=== PATIENT | male | born 1970 | race African-American/Black ===

== ENCOUNTER → 2016-08-19 | Outpatient (CLI) | payer OTHER ==
[~2016-08-19] MED LIST: CIPR500T89 PO; FAMO1TAB11 PO; FLAG500T PO; HALO1TAB29 PO; HARV1TAB PO; INSUH10VL SC; INSULANT SC; OXAZ10CA PO; QUET1TAB10 PO; QUET1TAB9 PO; TRAZ100T4 PO
[2016-08-19 15:32] LABS: ANION GAP 15 MEQ/L (8-16); BLOOD UREA NITROGEN 10 MG/DL (7-18); CALCIUM LEVEL 9.3 MG/DL (8.5-10.1); CARBON DIOXIDE LEVEL 21 MEQ/L (21-32); CHLORIDE LEVEL 99 MEQ/L (98-107); CREATININE FOR GFR 0.98 MG/DL (0.70-1.30); GLOMERULAR FILTRATION RATE > 60.0 (>60); GLUCOSE, FASTING 238 MG/DL (70-105); POTASSIUM SERUM 3.7 MEQ/L (3.5-5.1); SODIUM LEVEL 135 MEQ/L (136-145)
== END ==
LOC: M LAB 14:27
PROVIDERS: ATTEND Physician Assistant Medical
DX: E11.65 Type 2 diabetes mellitus with hyperglycemia (principal)

== ENCOUNTER 2016-11-12 21:41 | Emergency (ER) | payer OTHER ==
[~2016-11-12] VITALS: Ht 165.1 cm; Wt 81.6 kg
[2016-11-12 21:41] VITALS: BP 112/65
[2016-11-12] MEDS ORDERED: METF500T PO (22:03)
[2016-11-12] MEDS ORDERED: CLON0.2T PO (22:03)
== END 2016-11-13 01:05 | disposition left against medical advice (07) ==
LOC: M ED 23:39
DX: Z53.29 Procedure and treatment not carried out because of patient's decision for other reasons (principal)

== ENCOUNTER 2016-11-14 00:42 | Emergency (ER) | payer OTHER ==
[~2016-11-14] VITALS: Ht 165.1 cm; Wt 72.6 kg
[~2016-11-14 00:42] MED LIST changes: +CLON0.2T PO; +METF500T PO
[2016-11-14 02:20] VITALS: BP 118/76
== END 2016-11-14 02:20 | disposition home or self-care (01) ==
LOC: M ED 01:59
DX: K08.9 Disorder of teeth and supporting structures, unspecified (principal); I10 Essential (primary) hypertension; E11.9 Type 2 diabetes mellitus without complications; F20.9 Schizophrenia, unspecified; F17.200 Nicotine dependence, unspecified, uncomplicated; Z79.4 Long term (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 of insulin; Z79.899 Other long term (current) drug therapy; Z88.8 Allergy status to other drugs, medicaments and biological substances

== ENCOUNTER 2017-01-23 21:45 | Emergency (ER) | payer OTHER ==
[~2017-01-23 21:45] MED LIST changes: +CIPR-249 PO; -CIPR500T89 PO; -METF500T PO; +METF500T13 PO; -OXAZ10CA PO; +OXAZ10CA3 PO; +TRAZ-136 PO; -TRAZ100T4 PO
[2017-01-23] MEDS ORDERED: TOUJ1.2I SQ (22:04)
[2017-01-23] MEDS ORDERED: JARD1TAB PO (22:04)
[2017-01-23 22:53] LABS: MEAN CORPUSCULAR HEMOGLOBIN 31.9 pg (27.0-33.0); MEAN CORPUSCULAR HGB CONC 34.1 g/dl (32.0-36.5); MEAN CORPUSCULAR VOLUME 93.5 fl (80.0-96.0); RED CELL DISTRIBUTION WIDTH 12.6 % (11.5-14.5); WHITE BLOOD COUNT 4.1 K/mm3 (4.0-10.0)
[2017-01-23 23:26] LABS: METHADONE URINE NEGATIVE (NEGATIVE)
[2017-01-23] MEDS ORDERED: PHENobarbital 30 MG TAB PO ONE (23:30)
[2017-01-23 23:38] LABS: ALBUMIN 4.3 GM/DL (3.2-5.2); ALKALINE PHOSPHATASE 76 U/L (45-117); ALT/SGPT 76 U/L (12-78); ANION GAP 10 MEQ/L (8-16); AST/SGOT 108 U/L (15-37); BILIRUBIN,DIRECT 0.2 MG/DL (0.0-0.2); BILIRUBIN,TOTAL 0.3 MG/DL (0.2-1.0); BLOOD UREA NITROGEN 8 MG/DL (7-18); CALCIUM LEVEL 8.8 MG/DL (8.5-10.1); CARBON DIOXIDE LEVEL 27 MEQ/L (21-32); CHLORIDE LEVEL 104 MEQ/L (98-107); CREATININE FOR GFR 0.89 MG/DL (0.70-1.30); GLOMERULAR FILTRATION RATE > 60.0 (>60); GLUCOSE, FASTING 205 MG/DL (70-105); POTASSIUM SERUM 3.8 MEQ/L (3.5-5.1); SODIUM LEVEL 141 MEQ/L (136-145); TOTAL PROTEIN 8.6 GM/DL (6.4-8.2)
[2017-01-24] MEDS ORDERED: OXAZEPAM 15 MG CAP PO ONE (07:30)
[2017-01-24 09:16] VITALS: BP 134/88
== END 2017-01-24 09:18 | disposition home or self-care (01) ==
LOC: M ED 22:36
DX: F10.120 Alcohol abuse with intoxication, uncomplicated (principal); I10 Essential (primary) hypertension; E11.9 Type 2 diabetes mellitus without complications; F17.200 Nicotine dependence, unspecified, uncomplicated; Z79.899 Other long term (current) drug therapy; Z79.4 Long term (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 of insulin; Z88.8 Allergy status to other drugs, medicaments and biological substances

== ENCOUNTER → 2017-04-08 | Outpatient (REF) | payer OTHER ==
[~2017-04-08] MED LIST changes: +INSUHUMDS; +INSULANT; +JARD1TAB PO; +TOUJ1.2I SQ
[2017-04-08 19:57] LABS: BASO % 0.8 % (0.0-1.0); EOS # 0.1 10^3/uL (0.0-0.50); EOS % 2.4 % (0.0-3.0); IMMATURE GRANULOCYTE % 0.2 % (0-0); LYMPH # 1.4 10^3/uL (1.5-4.5); LYMPH % 28.5 % (24.0-44.0); MEAN CORPUSCULAR HEMOGLOBIN 31.1 pg (27.0-33.0); MEAN CORPUSCULAR HGB CONC 33.3 g/dl (32.0-36.5); MEAN CORPUSCULAR VOLUME 93.3 fl (80.0-96.0); MONO # 0.7 10^3/uL (0.0-0.8); MONO % 13.6 % (0.0-5.0); NEUTROPHILS # 2.7 10^3/uL (1.8-7.7); NEUTROPHILS % 54.5 % (36.0-66.0); PLATELET COUNT, AUTOMATED 212 10^3/uL (150-450); RED CELL DISTRIBUTION WIDTH 12.8 % (11.5-14.5)
[2017-04-08 20:04] LABS: ALBUMIN 4.1 GM/DL (3.2-5.2); ALBUMIN/GLOBULIN RATIO 1.03 (1.00-1.93); ALKALINE PHOSPHATASE 59 U/L (45-117); ALT/SGPT 52 U/L (12-78); ANION GAP 8 MEQ/L (8-16); AST/SGOT 71 U/L (15-37); BILIRUBIN,TOTAL 0.3 MG/DL (0.2-1.0); BLOOD UREA NITROGEN 10 MG/DL (7-18); CALCIUM LEVEL 9.6 MG/DL (8.5-10.1); CARBON DIOXIDE LEVEL 28 MEQ/L (21-32); CHLORIDE LEVEL 103 MEQ/L (98-107); CREATININE FOR GFR 0.94 MG/DL (0.70-1.30); GLOMERULAR FILTRATION RATE > 60.0 (>60); GLUCOSE, FASTING 179 MG/DL (70-105); SODIUM LEVEL 139 MEQ/L (136-145); TOTAL PROTEIN 8.1 GM/DL (6.4-8.2)
[2017-04-13 14:13] LABS: HEPATITIS C QUANTITATION HCV Not Detected IU/mL (.)
== END ==
LOC: M LAB REF 16:36
PROVIDERS: ATTEND Family Medicine Addiction Medicine
DX: B19.20 Unspecified viral hepatitis C without hepatic coma (principal); E55.9 Vitamin D deficiency, unspecified; D61.818 Other pancytopenia

== ENCOUNTER → 2017-09-10 | Outpatient (REF) | payer OTHER ==
[2017-09-10 19:21] LABS: TOTAL 25(OH) VITAMIN D 32.2 NG/ML (30.0-100.0)
== END ==
LOC: M LAB REF 17:22
DX: E55.9 Vitamin D deficiency, unspecified (principal)

== ENCOUNTER → 2017-12-25 | Outpatient (CLI) | payer OTHER | LOC: M PAIN 14:45 | DX: Z53.29 Procedure and treatment not carried out because of patient's decision for other reasons (principal) ==

== ENCOUNTER 2017-12-29 13:45 | Outpatient (RCR) | payer OTHER | END 2018-01-26 | LOC: M PT 13:45 | DX: Z51.89 Encounter for other specified aftercare (principal); M25.551 Pain in right hip ==

== ENCOUNTER → 2018-01-25 | Outpatient (CLI) | payer OTHER | LOC: M PAIN 15:00 | DX: M25.551 Pain in right hip (principal); M25.552 Pain in left hip; G89.29 Other chronic pain; E11.9 Type 2 diabetes mellitus without complications; F31.9 Bipolar disorder, unspecified; G40.919 Epilepsy, unspecified, intractable, without status epilepticus; F17.210 Nicotine dependence, cigarettes, uncomplicated; F17.220 Nicotine dependence, chewing tobacco, uncomplicated; Z79.4 Long term (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 of insulin; Z86.19 Personal history of other infectious and parasitic diseases | CPT/HCPCS: G0463 ==

== ENCOUNTER → 2018-02-12 | Outpatient (CLI) | payer OTHER | LOC: M RAD 15:47 | DX: M51.36 Other intervertebral disc degeneration, lumbar region (principal) | CPT/HCPCS: 72100 ==

== ENCOUNTER → 2018-02-12 | Outpatient (CLI) | payer OTHER | LOC: M PAIN 14:45 | DX: M25.551 Pain in right hip (principal); M54.5 Low back pain; G89.29 Other chronic pain; M79.604 Pain in right leg; E11.9 Type 2 diabetes mellitus without complications; F17.210 Nicotine dependence, cigarettes, uncomplicated; Z79.4 Long term (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 of insulin; Z79.899 Other long term (current) drug therapy | CPT/HCPCS: G0463 ==

== ENCOUNTER → 2018-04-16 | Outpatient (CLI) | payer OTHER | LOC: M PAIN 11:15 | DX: M25.551 Pain in right hip (principal); M54.5 Low back pain; M79.604 Pain in right leg; G89.29 Other chronic pain; E11.9 Type 2 diabetes mellitus without complications; F31.9 Bipolar disorder, unspecified; F25.9 Schizoaffective disorder, unspecified; F17.210 Nicotine dependence, cigarettes, uncomplicated; Z79.4 Long term (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 of insulin; Z79.899 Other long term (current) drug therapy; Z86.19 Personal history of other infectious and parasitic diseases | CPT/HCPCS: G0463 ==

== ENCOUNTER → 2018-05-31 | Outpatient (REF) | payer OTHER ==
[2018-05-31 18:51] LABS: ALBUMIN 3.9 GM/DL (3.2-5.2); ALBUMIN/GLOBULIN RATIO 1.08 (1.00-1.93); ALKALINE PHOSPHATASE 50 U/L (45-117); ALT/SGPT 31 U/L (12-78); ANION GAP 6 MEQ/L (8-16); AST/SGOT 35 U/L (7-37); BILIRUBIN,TOTAL 0.4 MG/DL (0.2-1.0); BLOOD UREA NITROGEN 8 MG/DL (7-18); CALCIUM LEVEL 8.7 MG/DL (8.5-10.1); CARBON DIOXIDE LEVEL 26 MEQ/L (21-32); CHLORIDE LEVEL 107 MEQ/L (98-107); CHOLESTEROL LEVEL 130 MG/DL (<200); CHOLESTEROL RISK RATIO 1.666 (<5); CREATININE FOR GFR 0.88 MG/DL (0.70-1.30); GLOMERULAR FILTRATION RATE > 60.0 (>60); GLUCOSE, FASTING 120 MG/DL (70-100); HDL CHOLESTEROL 78 MG/DL (>40); LDL CHOLESTEROL 43 MG/DL (<100); NON-HDL-C 52 MG/DL; SODIUM LEVEL 139 MEQ/L (136-145); TOTAL PROTEIN 7.5 GM/DL (6.4-8.2); TRIGLYCERIDES LEVEL 47 MG/DL (<150)
[2018-05-31 18:54] LABS: TOTAL 25(OH) VITAMIN D 13.8 NG/ML (30.0-100.0)
[2018-05-31 19:13] LABS: ESTIMATED AVERAGE GLUCOSE 186 MG/DL (60-110); HEMOGLOBIN A1c 8.1 %
== END ==
LOC: M LAB REF 16:43
DX: Z13.9 Encounter for screening, unspecified (principal)
CPT/HCPCS: 84443

== ENCOUNTER 2018-11-08 12:50 | Emergency (ER) | payer OTHER ==
[~2018-11-08] VITALS: Ht 170.2 cm; Wt 77.3 kg
[~2018-11-08 12:50] MED LIST changes: +HALO10TA20 PO; -HALO1TAB29 PO; -TRAZ-136 PO; +TRAZ-163 PO
[2018-11-08] MEDS ORDERED: ADME100I (13:08)
[2018-11-08] MEDS ORDERED: TOUJ1.2I SC (13:08)
[2018-11-08] MEDS ORDERED: QUET400T (13:08)
[2018-11-08] MEDS ORDERED: ACET1TAB16 (13:08)
[2018-11-08] MEDS ORDERED: LORazepam 2 MG/ML VIAL (J2060) IM ONE (14:30)
[2018-11-08] MEDS ORDERED: HALOPERIDOL 5 MG/ML VIAL (J1630) IM ONE (14:30)
[2018-11-08 15:12] LABS: HEMATOCRIT 45.4 % (42.0-52.0); HEMOGLOBIN 15.6 g/dl (13.5-17.5); MEAN CORPUSCULAR HEMOGLOBIN 31.3 pg (27.0-33.0); MEAN CORPUSCULAR HGB CONC 34.4 g/dl (32.0-36.5); PLATELET COUNT, AUTOMATED 211 10^3/uL (150-450); RED BLOOD COUNT 4.99 10^6/uL (4.30-6.10)
[2018-11-08 15:34] LABS: AMPHETAMINES LEVEL URINE POSITIVE (NEGATIVE); BARBITURATES URINE NEGATIVE (NEGATIVE); BENZODIAZEPINES URINE NEGATIVE (NEGATIVE); CANNABINOIDS URINE NEGATIVE (NEGATIVE); COCAINE METABOLITE URINE NEGATIVE (NEGATIVE); METHADONE URINE NEGATIVE (NEGATIVE); OPIATES URINE NEGATIVE (NEGATIVE); PHENCYCLIDINE URINE NEGATIVE (NEGATIVE)
[2018-11-08 15:45] LABS: ACETAMINOPHEN LEVEL < 2.0 UG/ML (10.0-30.0); ALBUMIN 4.5 GM/DL (3.2-5.2); ALT/SGPT 28 U/L (12-78); BILIRUBIN,DIRECT 0.1 MG/DL (0.0-0.2); BILIRUBIN,TOTAL 0.4 MG/DL (0.2-1.0); BLOOD UREA NITROGEN 12 MG/DL (7-18); CALCIUM LEVEL 8.9 MG/DL (8.5-10.1); CARBON DIOXIDE LEVEL 23 MEQ/L (21-32); CHLORIDE LEVEL 105 MEQ/L (98-107); CREATININE FOR GFR 0.94 MG/DL (0.70-1.30); ETHYL ALCOHOL (ETHANOL) 0.164 % (0.000-0.010); GLOMERULAR FILTRATION RATE > 60.0 (>56); GLUCOSE, FASTING 166 MG/DL (70-100); POTASSIUM SERUM 4.1 MEQ/L (3.5-5.1); SODIUM LEVEL 139 MEQ/L (136-145); THYROID STIMULATING HORMONE 0.235 uIU/ML (0.358-3.740); TOTAL PROTEIN 8.4 GM/DL (6.4-8.2)
[2018-11-08 19:22] VITALS: BP 129/69
[2018-11-08] MEDS ORDERED: METAL LOCK LOOP XX ONE (19:45)
== END 2018-11-08 20:09 | disposition home or self-care (01) ==
LOC: M ED 12:50
DX: F20.0 Paranoid schizophrenia (principal); F31.9 Bipolar disorder, unspecified; E11.9 Type 2 diabetes mellitus without complications; B19.20 Unspecified viral hepatitis C without hepatic coma; Z87.19 Personal history of other diseases of the digestive system; F17.200 Nicotine dependence, unspecified, uncomplicated; Z88.8 Allergy status to other drugs, medicaments and biological substances; Z79.899 Other long term (current) drug therapy; Z79.4 Long term (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 of insulin
CPT/HCPCS: 36415; 80048; 80076; 80307; 84443; 85027; 99284; G0480

== ENCOUNTER 2019-03-19 23:08 | Emergency (ER) | payer OTHER ==
[~2019-03-19 23:08] MED LIST changes: +ACET1TAB16; +ADME100I; -QUET1TAB9 PO; +QUET200T2 PO; +QUET400T; +TOUJ1.2I SC
[2019-03-20 00:19] LABS: HEMATOCRIT 43.2 % (42.0-52.0); HEMOGLOBIN 14.8 g/dl (13.5-17.5); MEAN CORPUSCULAR HEMOGLOBIN 31.2 pg (27.0-33.0); MEAN CORPUSCULAR HGB CONC 34.3 g/dl (32.0-36.5); MEAN CORPUSCULAR VOLUME 91.1 fl (80.0-96.0); PLATELET COUNT, AUTOMATED 210 10^3/uL (150-450); RED BLOOD COUNT 4.74 10^6/uL (4.30-6.10); WHITE BLOOD COUNT 7.3 10^3/uL (4.0-10.0)
[2019-03-20 00:36] LABS: ACETAMINOPHEN LEVEL < 2.0 UG/ML (10.0-30.0); ALBUMIN 4.1 GM/DL (3.2-5.2); ALT/SGPT 20 U/L (12-78); BILIRUBIN,DIRECT 0.2 MG/DL (0.0-0.2); BILIRUBIN,TOTAL 0.4 MG/DL (0.2-1.0); BLOOD UREA NITROGEN 14 MG/DL (7-18); CALCIUM LEVEL 9.4 MG/DL (8.5-10.1); CARBON DIOXIDE LEVEL 23 MEQ/L (21-32); CHLORIDE LEVEL 102 MEQ/L (98-107); CREATININE FOR GFR 0.84 MG/DL (0.70-1.30); ETHYL ALCOHOL (ETHANOL) 0.018 % (0.000-0.010); GLOMERULAR FILTRATION RATE > 60.0 (>56); GLUCOSE, FASTING 131 MG/DL (70-100); POTASSIUM SERUM 3.6 MEQ/L (3.5-5.1); SALICYLATE LEVEL 3.4 MG/DL (5.0-30.0); SODIUM LEVEL 137 MEQ/L (136-145); THYROID STIMULATING HORMONE 0.728 uIU/ML (0.358-3.740); TOTAL PROTEIN 8.3 GM/DL (6.4-8.2)
[2019-03-20 02:12] LABS: AMPHETAMINES LEVEL URINE POSITIVE (NEGATIVE); BARBITURATES URINE NEGATIVE (NEGATIVE); BENZODIAZEPINES URINE NEGATIVE (NEGATIVE); CANNABINOIDS URINE NEGATIVE (NEGATIVE); COCAINE METABOLITE URINE POSITIVE (NEGATIVE); METHADONE URINE NEGATIVE (NEGATIVE); OPIATES URINE NEGATIVE (NEGATIVE); PHENCYCLIDINE URINE NEGATIVE (NEGATIVE)
[2019-03-20 04:29] VITALS: BP 124/69
--- NOTE | 2019-03-20 13:31 | ECGEPIP ---
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
== END 2019-03-20 04:33 | disposition home or self-care (01) ==
LOC: M ED 23:08
DX: F20.9 Schizophrenia, unspecified (principal); E11.9 Type 2 diabetes mellitus without complications; F17.200 Nicotine dependence, unspecified, uncomplicated; F14.10 Cocaine abuse, uncomplicated; B18.2 Chronic viral hepatitis C
CPT/HCPCS: 80048; 80076; 80307; 84443; 85027; 93005; 99284; G0480

== ENCOUNTER 2019-03-29 05:23 | Emergency (ER) | payer OTHER ==
[~2019-03-29] VITALS: Ht 170.2 cm; Wt 77.3 kg
[2019-03-29 05:24] VITALS: BP 139/91
[2019-03-29] MEDS ORDERED: STEG5TAB PO (05:32)
[2019-03-29] MEDS ORDERED: GABA-843 PO (05:32)
[2019-03-29] MEDS ORDERED: MELO15TA28 PO (05:32)
[2019-03-29] MEDS ORDERED: AUGM500T34 PO (06:00)
[2019-03-29] MEDS ORDERED: KETO10TAB PO (06:00)
== END 2019-03-29 06:37 | disposition home or self-care (01) ==
LOC: M ED 05:23
DX: K02.9 Dental caries, unspecified (principal); E11.9 Type 2 diabetes mellitus without complications; F20.9 Schizophrenia, unspecified; F10.20 Alcohol dependence, uncomplicated; F17.200 Nicotine dependence, unspecified, uncomplicated; Z88.8 Allergy status to other drugs, medicaments and biological substances; Z79.899 Other long term (current) drug therapy; Z79.4 Long term (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 of insulin

== ENCOUNTER 2019-03-30 19:27 | Emergency (ER) | payer OTHER ==
[~2019-03-30] VITALS: Ht 177.8 cm; Wt 79.5 kg
[~2019-03-30 19:27] MED LIST changes: +AUGM500T34 PO; +GABA-843 PO; +KETO10TAB PO; +MELO15TA28 PO; +STEG5TAB PO
[2019-03-30 19:42] VITALS: BP 128/84
== END 2019-03-30 20:33 | disposition home or self-care (01) ==
LOC: M ED 19:27
DX: F20.0 Paranoid schizophrenia (principal); F17.210 Nicotine dependence, cigarettes, uncomplicated; Z88.8 Allergy status to other drugs, medicaments and biological substances; Z79.899 Other long term (current) drug therapy; Z79.2 Long term (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 of antibiotics; Z79.4 Long term (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 of insulin

== ENCOUNTER 2019-03-30 23:02 | Emergency (ER) | payer OTHER ==
[~2019-03-30 23:02] MED LIST changes: -QUET400T; +QUET400T PO; -TRAZ-163 PO; +TRAZ-257 PO
== END 2019-03-30 23:22 | disposition left against medical advice (07) ==
LOC: M ED 23:02
DX: Z53.21 Procedure and treatment not carried out due to patient leaving prior to being seen by health care provider (principal)

== ENCOUNTER 2019-03-31 00:30 | Emergency (ER) | payer OTHER ==
[~2019-03-31] VITALS: Ht 170.2 cm; Wt 75.6 kg
[~2019-03-31 00:30] MED LIST changes: +TRAZ-163 PO; -TRAZ-257 PO
[2019-03-31] MEDS ORDERED: ACETAMINOPHEN TAB 650MG DOSE (2X325MG) PO ONE (01:15)
--- NOTE | 2019-03-31 02:04 | REPVR ---
PROCEDURE INFORMATION: Exam: XR Right Hip with Pelvis when Performed Exam date and time: 03/31/2019 1:22 AM Clinical history: 48 years old, male; Hip pain; Right hip; Additional info: Right hip pain TECHNIQUE: Imaging protocol: XR Right hip with pelvis when performed. Views: 2 or 3 views. COMPARISON: CR Hip, Ap,Lat 03/06/2016 5:11 PM FINDINGS: Bones are aligned normally. No acute fracture. No concerning bone lesion. No evidence of femoral head osteonecrosis. Symmetric bilateral degenerative hip joint space narrowing with subchondral sclerosis and underlying osseous metaplasia suggesting chronic impingement. Imaged portion of the SI joint is unremarkable. No focal soft tissue abnormality. IMPRESSION: No acute process. 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
[2019-03-31] MEDS ORDERED: METAL LOCK LOOP XX ONE (03:14)
[2019-03-31] MEDS ORDERED: LORazepam 2 MG/ML VIAL (J2060) As Ordered ONE (05:58)
[2019-03-31] MEDS ORDERED: HALOPERIDOL 5 MG/ML VIAL (J1630) As Ordered ONE (05:58)
[2019-03-31 06:23] LABS: HEMATOCRIT 44.5 % (42.0-52.0); HEMOGLOBIN 15.2 g/dl (13.5-17.5); MEAN CORPUSCULAR HEMOGLOBIN 31.3 pg (27.0-33.0); MEAN CORPUSCULAR HGB CONC 34.2 g/dl (32.0-36.5); MEAN CORPUSCULAR VOLUME 91.6 fl (80.0-96.0); PLATELET COUNT, AUTOMATED 214 10^3/uL (150-450); RED BLOOD COUNT 4.86 10^6/uL (4.30-6.10); WHITE BLOOD COUNT 6.7 10^3/uL (4.0-10.0)
[2019-03-31 06:50] LABS: AMPHETAMINES LEVEL URINE NEGATIVE (NEGATIVE); BARBITURATES URINE NEGATIVE (NEGATIVE); BENZODIAZEPINES URINE NEGATIVE (NEGATIVE); CANNABINOIDS URINE NEGATIVE (NEGATIVE); COCAINE METABOLITE URINE POSITIVE (NEGATIVE); METHADONE URINE NEGATIVE (NEGATIVE); OPIATES URINE NEGATIVE (NEGATIVE); PHENCYCLIDINE URINE NEGATIVE (NEGATIVE)
[2019-03-31 06:54] LABS: ACETAMINOPHEN LEVEL < 2.0 UG/ML (10.0-30.0); ALBUMIN 3.8 GM/DL (3.2-5.2); ALT/SGPT 28 U/L (12-78); BILIRUBIN,DIRECT 0.2 MG/DL (0.0-0.2); BILIRUBIN,TOTAL 0.5 MG/DL (0.2-1.0); BLOOD UREA NITROGEN 12 MG/DL (7-18); CALCIUM LEVEL 9.1 MG/DL (8.5-10.1); CARBON DIOXIDE LEVEL 24 MEQ/L (21-32); CHLORIDE LEVEL 105 MEQ/L (98-107); CREATININE FOR GFR 1.07 MG/DL (0.70-1.30); ETHYL ALCOHOL (ETHANOL) 0.088 % (0.000-0.010); GLOMERULAR FILTRATION RATE > 60.0 (>56); GLUCOSE, FASTING 245 MG/DL (70-100); POTASSIUM SERUM 3.9 MEQ/L (3.5-5.1); SALICYLATE LEVEL 3.4 MG/DL (5.0-30.0); SODIUM LEVEL 139 MEQ/L (136-145)
[2019-03-31] MEDS ORDERED: HALOPERIDOL 10 MG TAB PO ONE (07:45)
[2019-03-31] MEDS ORDERED: GABAPENTIN 300 MG CAP PO ONE (07:45)
[2019-03-31] MEDS ORDERED: LEVEMIR (INSULIN DETEMIR) 1 UNITS/0.01ML SC ONE (08:45)
[2019-03-31] MEDS ORDERED: MELOXICAM (MOBIC) 7.5 MG TAB PO SCH (09:00)
[2019-03-31 11:55] VITALS: BP 119/63
== END 2019-03-31 12:05 | disposition home or self-care (01) ==
LOC: M ED 00:30
DX: F10.120 Alcohol abuse with intoxication, uncomplicated (principal); F14.129 Cocaine abuse with intoxication, unspecified; M16.11 Unilateral primary osteoarthritis, right hip; E11.9 Type 2 diabetes mellitus without complications; F20.9 Schizophrenia, unspecified; F32.9 Major depressive disorder, single episode, unspecified; B19.20 Unspecified viral hepatitis C without hepatic coma; G47.00 Insomnia, unspecified; Z88.8 Allergy status to other drugs, medicaments and biological substances; Z79.899 Other long term (current) drug therapy; Z79.2 Long term (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 of antibiotics; Z79.891 Long term (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 of opiate analgesic; Z79.4 Long term (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 of insulin
CPT/HCPCS: 36415; 73502; 80048; 80076; 80307; 84443; 85027; 99284; G0480

== ENCOUNTER 2019-04-03 00:24 | Emergency (ER) | payer OTHER ==
[~2019-04-03] VITALS: Ht 170.2 cm; Wt 81.8 kg
[2019-04-03 01:23] LABS: HEMATOCRIT 42.7 % (42.0-52.0); HEMOGLOBIN 14.5 g/dl (13.5-17.5); MEAN CORPUSCULAR HEMOGLOBIN 31.5 pg (27.0-33.0); MEAN CORPUSCULAR VOLUME 92.6 fl (80.0-96.0); PLATELET COUNT, AUTOMATED 227 10^3/uL (150-450); RED BLOOD COUNT 4.61 10^6/uL (4.30-6.10); WHITE BLOOD COUNT 6.7 10^3/uL (4.0-10.0)
[2019-04-03 02:06] LABS: ACETAMINOPHEN LEVEL < 2.0 UG/ML (10.0-30.0); ALBUMIN 4.1 GM/DL (3.2-5.2); ALT/SGPT 28 U/L (12-78); BILIRUBIN,DIRECT 0.1 MG/DL (0.0-0.2); BILIRUBIN,TOTAL 0.3 MG/DL (0.2-1.0); BLOOD UREA NITROGEN 12 MG/DL (7-18); CALCIUM LEVEL 8.6 MG/DL (8.5-10.1); CARBON DIOXIDE LEVEL 27 MEQ/L (21-32); CHLORIDE LEVEL 102 MEQ/L (98-107); CREATININE FOR GFR 1.06 MG/DL (0.70-1.30); ETHYL ALCOHOL (ETHANOL) 0.042 % (0.000-0.010); GLOMERULAR FILTRATION RATE > 60.0 (>56); GLUCOSE, FASTING 289 MG/DL (70-100); POTASSIUM SERUM 4.1 MEQ/L (3.5-5.1); SALICYLATE LEVEL 3.7 MG/DL (5.0-30.0); SODIUM LEVEL 138 MEQ/L (136-145); THYROID STIMULATING HORMONE 0.259 uIU/ML (0.358-3.740); TOTAL PROTEIN 7.9 GM/DL (6.4-8.2)
[2019-04-03 03:54] LABS: AMPHETAMINES LEVEL URINE NEGATIVE (NEGATIVE); BARBITURATES URINE NEGATIVE (NEGATIVE); BENZODIAZEPINES URINE NEGATIVE (NEGATIVE); CANNABINOIDS URINE NEGATIVE (NEGATIVE); COCAINE METABOLITE URINE POSITIVE (NEGATIVE); METHADONE URINE NEGATIVE (NEGATIVE); OPIATES URINE NEGATIVE (NEGATIVE); PHENCYCLIDINE URINE NEGATIVE (NEGATIVE)
--- NOTE | 2019-04-03 08:19 | ECGEPIP ---
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
[2019-04-03] MEDS ORDERED: GABAPENTIN 300 MG CAP PO SCH (10:30)
[2019-04-03] MEDS ORDERED: GLUCAGON FOR INJ 1 MG VIAL (J1610) SC PRN (11:00)
[2019-04-03] MEDS ORDERED: GLUCOSE 4 GM CHEW TABLET PO PRN (11:00)
[2019-04-03] MEDS ORDERED: DEXTROSE 50% 50 ML SYRINGE IV PRN (11:00)
[2019-04-03] MEDS ORDERED: HumaLOG INSULIN (NovoLOG) PER UNIT SC SCH ×2 (12:00→21:00)
[2019-04-03 13:31] VITALS: BP 112/63
[2019-04-03] MEDS ORDERED: HALOPERIDOL 10 MG TAB PO SCH (21:00)
== END 2019-04-03 13:40 ==
LOC: M ED 00:24
DX: R45.851 Suicidal ideations (principal); E11.9 Type 2 diabetes mellitus without complications; R73.9 Hyperglycemia, unspecified; Z88.8 Allergy status to other drugs, medicaments and biological substances
CPT/HCPCS: 80048; 80076; 80307; 84443; 85027; 93005; 96372; 99285; G0480

== ENCOUNTER 2019-04-15 05:04 | Emergency (ER) | payer OTHER ==
[~2019-04-15] VITALS: Ht 152.4 cm; Wt 81.8 kg
[2019-04-15] MEDS ORDERED: TRAZ300T16 PO (05:21)
[2019-04-15 05:55] LABS: HEMATOCRIT 40.9 % (42.0-52.0); HEMOGLOBIN 14.3 g/dl (13.5-17.5); MEAN CORPUSCULAR HEMOGLOBIN 31.8 pg (27.0-33.0); MEAN CORPUSCULAR VOLUME 90.9 fl (80.0-96.0); PLATELET COUNT, AUTOMATED 202 10^3/uL (150-450); WHITE BLOOD COUNT 5.9 10^3/uL (4.0-10.0)
[2019-04-15 06:17] LABS: AMPHETAMINES LEVEL URINE NEGATIVE (NEGATIVE); BARBITURATES URINE NEGATIVE (NEGATIVE); BENZODIAZEPINES URINE NEGATIVE (NEGATIVE); CANNABINOIDS URINE NEGATIVE (NEGATIVE); COCAINE METABOLITE URINE POSITIVE (NEGATIVE); METHADONE URINE NEGATIVE (NEGATIVE); OPIATES URINE NEGATIVE (NEGATIVE); PHENCYCLIDINE URINE NEGATIVE (NEGATIVE)
[2019-04-15 06:20] LABS: ACETAMINOPHEN LEVEL < 2.0 UG/ML (10.0-30.0); ALBUMIN 3.9 GM/DL (3.2-5.2); ALT/SGPT 28 U/L (12-78); BILIRUBIN,DIRECT 0.2 MG/DL (0.0-0.2); BILIRUBIN,TOTAL 0.6 MG/DL (0.2-1.0); BLOOD UREA NITROGEN 14 MG/DL (7-18); CALCIUM LEVEL 8.8 MG/DL (8.5-10.1); CARBON DIOXIDE LEVEL 25 MEQ/L (21-32); CHLORIDE LEVEL 102 MEQ/L (98-107); CREATININE FOR GFR 0.87 MG/DL (0.70-1.30); ETHYL ALCOHOL (ETHANOL) < 0.003 % (0.000-0.010); GLOMERULAR FILTRATION RATE > 60.0 (>56); GLUCOSE, FASTING 176 MG/DL (70-100); POTASSIUM SERUM 3.6 MEQ/L (3.5-5.1); SALICYLATE LEVEL 2.5 MG/DL (5.0-30.0); SODIUM LEVEL 134 MEQ/L (136-145); THYROID STIMULATING HORMONE 0.526 uIU/ML (0.358-3.740); TOTAL PROTEIN 7.4 GM/DL (6.4-8.2)
[2019-04-15] MEDS ORDERED: HALO10TA2 PO (08:35)
[2019-04-15] MEDS ORDERED: MELO15TA28 PO (08:35)
[2019-04-15] MEDS ORDERED: HALOPERIDOL 10 MG TAB PO ONE (09:00)
[2019-04-15] MEDS ORDERED: MELOXICAM (MOBIC) 7.5 MG TAB PO SCH (09:00)
--- NOTE | 2019-04-15 09:54 | ED PDOC ---
Provider Note Phone consultation undertaken, the patient is presented to this provider, the patient situation is that he presented himself to the police after taking cocaine and worrying whether it was laced. He had denied any suicidal or homicidal ideation throughout the majority of his stay with no notations of any safety concerns and his presentation on this episode. The patient was observed to be intoxicated with cocaine that subsequently resolved. The patient requested to leave and did not meet involuntary criteria as the information relayed to me did not justify holding the patient against his will as he was not demonstrating that he was incapacitated by mental illness or that he was imminently suicidal. AUGUSTUS SANCHES DO Apr 15, 2019 09:54
[2019-04-15 10:46] VITALS: BP 100/56
[2019-04-16] MEDS ORDERED: HALO10TA20 PO (21:58)
== END 2019-04-15 10:45 | disposition home or self-care (01) ==
LOC: M ED 05:04
DX: F14.10 Cocaine abuse, uncomplicated (principal); E11.9 Type 2 diabetes mellitus without complications; B19.20 Unspecified viral hepatitis C without hepatic coma; K21.9 Gastro-esophageal reflux disease without esophagitis; F20.0 Paranoid schizophrenia; F31.9 Bipolar disorder, unspecified; Z79.899 Other long term (current) drug therapy; Z79.4 Long term (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 of insulin; Z88.8 Allergy status to other drugs, medicaments and biological substances; F17.210 Nicotine dependence, cigarettes, uncomplicated
CPT/HCPCS: 36415; 80048; 80076; 80307; 84443; 85027; 99284; G0480

== ENCOUNTER 2019-04-16 21:30 | Emergency (ER) | payer OTHER ==
[~2019-04-16 21:30] MED LIST changes: +HALO10TA2 PO; +TRAZ300T16 PO
[2019-04-16 21:44] VITALS: BP 138/70
[2019-04-16] MEDS ORDERED: HALO10TA20 PO (21:58)
[2019-04-16] MEDS ORDERED: HALOPERIDOL 10 MG TAB PO ONE (22:00)
== END 2019-04-16 22:37 | disposition home or self-care (01) ==
LOC: M ED 21:30
DX: F31.9 Bipolar disorder, unspecified (principal); R44.3 Hallucinations, unspecified; E11.9 Type 2 diabetes mellitus without complications; Z86.19 Personal history of other infectious and parasitic diseases; Z79.4 Long term (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 of insulin; Z79.899 Other long term (current) drug therapy; Z88.8 Allergy status to other drugs, medicaments and biological substances

== ENCOUNTER → 2019-07-08 | Outpatient (REF) | payer OTHER ==
[2019-07-08 12:45] LABS: BASO % 0.4 % (0.0-1.0); EOS # 0.2 10^3/uL (0.0-0.5); EOS % 2.3 % (0.0-3.0); HEMATOCRIT 45.5 % (42.0-52.0); LYMPH # 2.2 10^3/uL (1.5-5.0); LYMPH % 28.3 % (24.0-44.0); MONO % 12.5 % (0.0-5.0); NEUTROPHILS # 4.4 10^3/uL (1.5-8.5); NEUTROPHILS % 56.1 % (36.0-66.0); PLATELET COUNT, AUTOMATED 233 10^3/uL (150-450); WHITE BLOOD COUNT 7.8 10^3/uL (4.0-10.0)
[2019-07-08 13:16] LABS: ALBUMIN 3.8 GM/DL (3.2-5.2); ALT/SGPT 22 U/L (12-78); BILIRUBIN,TOTAL 0.6 MG/DL (0.2-1.0); BLOOD UREA NITROGEN 12 MG/DL (7-18); CALCIUM LEVEL 9.2 MG/DL (8.5-10.1); CARBON DIOXIDE LEVEL 27 MEQ/L (21-32); CHLORIDE LEVEL 105 MEQ/L (98-107); CREATININE FOR GFR 1.22 MG/DL (0.70-1.30); FERRITIN 51 NG/ML (26-388); GLOMERULAR FILTRATION RATE > 60.0 (>56); GLUCOSE, FASTING 242 MG/DL (70-100); IRON (FE) 134 UG/DL (65-175); POTASSIUM SERUM 4.5 MEQ/L (3.5-5.1); SODIUM LEVEL 138 MEQ/L (136-145); THYROID STIMULATING HORMONE 0.806 uIU/ML (0.358-3.740); TOTAL PROTEIN 7.5 GM/DL (6.4-8.2)
[2019-07-08 16:09] LABS: TOTAL 25(OH) VITAMIN D 35.1 NG/ML (30.0-100.0)
[2019-07-08 16:10] LABS: FOLATE 10.6 NG/ML; VITAMIN B12 LEVEL 559 PG/ML
== END ==
LOC: M LAB REF 11:05
PROVIDERS: ATTEND Nurse Practitioner Adult Health
DX: Z13.9 Encounter for screening, unspecified (principal)

== ENCOUNTER → 2019-07-28 | Outpatient (REF) | payer OTHER ==
[~2019-07-28] MED LIST changes: -TRAZ-163 PO; +TRAZ-257 PO
[2019-07-29 16:23] LABS: MALB URINE SIEMENS 7.9 MG/L; MAU/CREAT RATIO 7.8 MCG/MG (0.0-30.0)
== END ==
LOC: M LAB REF 15:31
PROVIDERS: ATTEND Nurse Practitioner Family
DX: E11.65 Type 2 diabetes mellitus with hyperglycemia (principal)

== ENCOUNTER 2019-08-10 00:29 | Inpatient (IN) | payer MEDICAID, OTHER ==
[~2019-08-10] VITALS: Ht 170.2 cm; Wt 73.0 kg
[2019-08-10 01:24] LABS: HEMOGLOBIN 14.8 g/dl (13.5-17.5); MEAN CORPUSCULAR HEMOGLOBIN 30.1 pg (27.0-33.0); MEAN CORPUSCULAR HGB CONC 32.9 g/dl (32.0-36.5); MEAN CORPUSCULAR VOLUME 91.5 fl (80.0-96.0); PLATELET COUNT, AUTOMATED 220 10^3/uL (150-450); RED BLOOD COUNT 4.92 10^6/uL (4.30-6.10); WHITE BLOOD COUNT 9.6 10^3/uL (4.0-10.0)
[2019-08-10 01:54] LABS: AMPHETAMINES LEVEL URINE NEGATIVE (NEGATIVE); BARBITURATES URINE NEGATIVE (NEGATIVE); BENZODIAZEPINES URINE NEGATIVE (NEGATIVE); CANNABINOIDS URINE NEGATIVE (NEGATIVE); COCAINE METABOLITE URINE POSITIVE (NEGATIVE); METHADONE URINE NEGATIVE (NEGATIVE); OPIATES URINE NEGATIVE (NEGATIVE); PHENCYCLIDINE URINE NEGATIVE (NEGATIVE)
[2019-08-10 02:02] LABS: ACETAMINOPHEN LEVEL < 2.0 UG/ML (10.0-30.0); ALBUMIN 4.1 GM/DL (3.2-5.2); ALT/SGPT 24 U/L (12-78); BILIRUBIN,DIRECT 0.2 MG/DL (0.0-0.2); BILIRUBIN,TOTAL 0.3 MG/DL (0.2-1.0); BLOOD UREA NITROGEN 8 MG/DL (7-18); CALCIUM LEVEL 9.2 MG/DL (8.5-10.1); CARBON DIOXIDE LEVEL 23 MEQ/L (21-32); CHLORIDE LEVEL 102 MEQ/L (98-107); ETHYL ALCOHOL (ETHANOL) 0.183 % (0.000-0.010); GLOMERULAR FILTRATION RATE > 60.0 (>56); GLUCOSE, FASTING 224 MG/DL (70-100); POTASSIUM SERUM 3.6 MEQ/L (3.5-5.1); SALICYLATE LEVEL 2.5 MG/DL (5.0-30.0); SODIUM LEVEL 136 MEQ/L (136-145); THYROID STIMULATING HORMONE 0.346 uIU/ML (0.358-3.740); TOTAL PROTEIN 7.7 GM/DL (6.4-8.2)
[2019-08-10] MEDS ORDERED: ACETAMINOPHEN TAB 650MG DOSE (2X325MG) PO PRN (06:30)
[2019-08-10] MEDS ORDERED: MOM 30ML SUSPENSION UDC PO PRN (06:30)
[2019-08-10] MEDS ORDERED: MAALOX 30 ML SUSP *UDC PO PRN (06:30)
[2019-08-10] MEDS ORDERED: traZODone 50 MG TAB PO PRN (06:30)
[2019-08-10] MEDS ORDERED: SERO400T PO ×2 (06:46→11:45)
[2019-08-10] MEDS ORDERED: MELO15TA28 PO (06:46)
[2019-08-10] MEDS ORDERED: ADME100I SC (06:46)
[2019-08-10] MEDS ORDERED: HALO10TA20 PO ×2 (06:46→11:45)
[2019-08-10] MEDS ORDERED: TOUJ1.2I SC (06:47)
[2019-08-10] MEDS ORDERED: GABA-843 PO (06:47)
[2019-08-10] MEDS ORDERED: VITA50005 PO (06:47)
[2019-08-10] MEDS ORDERED: LEVEMIR (INSULIN DETEMIR) 1 UNITS/0.01ML SC SCH (09:00)
[2019-08-10] MEDS ORDERED: GABAPENTIN 300 MG CAP PO SCH (09:00)
[2019-08-10 09:40] VITALS: BP 118/68
[2019-08-10] MEDS ORDERED: GLUCOSE 4 GM CHEW TABLET PO PRN (10:00)
[2019-08-10] MEDS ORDERED: GLUCAGON FOR INJ 1 MG VIAL (J1610) SC PRN (10:00)
[2019-08-10] MEDS ORDERED: DEXTROSE 50% 50 ML SYRINGE IV PRN (10:00)
--- NOTE | 2019-08-10 11:35 | MHHPEPDOC ---
General Date Of Admission: Aug 10, 2019 Legal Status: 9.39 Chief Complaint "I was feeling depressed." History of Present Illness HISTORY OF THE PRESENT ILLNESS: Patient is a 48 -year-old , male, with a history of schizophrenia who was brought to ED on a 9.41 after he called the police due to feeling depressed after having been drinking alcohol. Pt stated in the ED that his biggest trigger was his girlfriend who wouldn't talk to him. He denied SI/HI and AVH in the the ED to U staff but told ED doc that he was having AH. Pt did not voice paranoid thoughts or delusions but was overhead asking ED security aid if he was a gang member and was whispering to one of the police officers and refusing to talk with the other or ED staff. Pt endorsed racing thoughts, depression, decreased energy in the ED. Pt is prescribed seroquel and haldo by [facility] where he is seen for mental health follow- up and told ED that he's been trying to wean himself off his medications b/c he doesn't want to be on them. His utox was positive cocaine and pt admitted to recent use 08/09/2019 in the ED. Psychiatric Review of Systems Depression (2 or more weeks): depressed mood, anhedonia, decreased energy, difficulty concentrating, suicidal thoughts Doretha (4 or more days of): irritable/elevated mood Psychosis: auditory hallucination, delusions, paranoia PTSD: denies Anxiety: situational anxiety, stressor related anxiety Anxiety/ 6 months or more of: restlessness, keyed up, difficulty concentrating, irritability Past Psychiatric History Previous Psychiatric Diagnosis: schizophrenia, substance use d/o Previous Psychiatric Admissions: [facility] [id number], multiple visits to [facility] in [place] per ED record Suicide Attempts: SA at 14, cut his wrist Psychiatric Follow-up: [facility] Psychiatric medications: seroquel 400mg qhs, haldol 10mg bid Past Medical History Medical Problems IDDM Head Injury: No Seizures: No Hospitalizations: No Surgeries: No Family Medical/Psychiatric HX Medical Problems denies Psychiatric Disorders: No Addiction: No Suicide Attemps/Completions: No Addiction History nicotine, alcohol (bal 0.184), cocaine (used 08/09/19, utox pos) Social History Childhood: born and raised in [place] area, has siblings in the area, he's a [employer] Abuse/Trauma:denies Current Living Situation: lives alone in [place] Education: high school grad Employment: has disability Social Support: girlfriend Legal: denies Marital: single, states he has a girlfriend Mental Status Examination General Appearance: well groomed, appears stated age, hospital scubs/clothing Build: average Demeanor: average Eye Contact: average Activity: average Behavior: cooperative Speech: clear, spontaneous, normal volume, reg/rate,rhythm,volume Mood: euthymic Mood "I'm fine" Affect: full, appropriate, congruent Thought Process: logical/linear, intact Thought Content (Delusions): none reported, denies SI, HI, AVH Thought Content (Other): none reported Thought Content (Aggressive): none reported Perception (Hallucinations): none reported Perception (Other): none reported Cognition (Impairment of): none reported Cognition(Intelligence Est.): average Oriented: Awake, Alert, Oriented times three Insight: good Judgment: Good Psychosis: Denies Diagnoses paranoid schizophrenia cocaine/alcohol use d/o A-FIB/CHADSVASC A-FIB History Current/History of A-Fib/PAF?: No Assessment Pt seen and states he had been arguing with his brother and his girlfriend due to the "local drug dealer" wanting to get with his girlfriend. States he had been drinking and using cocaine which caused him to "mouth off" last night and this morning. States he feels much better now that he's sobered up. States he had stopped taking his seroquel for a week as he thought he was only prescribed seroquel to help him sleep and he had wanted to see if he could sleep "naturally" w/o it. Informed pt that it is also for his mood and thoughts which he denies he knew but will be compliant on it nightly now that he knows. He states he's been compliant on his haldol daily. He denies paranoia, delusions, hallucinations and is fully logical, linear, appropriate, attentive when seen. He denies SI/HI and feels safe to go home today with follow-up at [facility]. Initial Treatment Plan 1. Patient was admitted on a 9.39 status. 2. Complete history was obtained. 3. With patients permission, family will be contacted and database will be expanded. 4. Patients medication regimen will be reviewed and changed accordingly. 5. Patient will be provided with protected environment. 6. Patient will be treated with individual, group, and milieu therapies. 7. Patient will receive supportive psych-education. 8. Discharge planning will commence immediately. 9. Outpatient follow-up treatment will be strongly recommended. 10. The initial treatment plan will focus initially on: * Depression. * Risk for suicide. 11. d/c pt home with follow-up at [facility]. ESTIMATED LENGTH OF STAY: 1-3 DAYS. TIME SPENT COUNSELING AND COORDINATING INITIAL CARE: 60 minutes. Vital Signs Vital Signs Date Time Temp Pulse Resp B/P (MAP) Pulse Ox O2 Delivery O2 Flow Rate FiO2 08/10/19 08:21 98.8 87 18 138/70 (92) 99 08/10/19 00:55 Room Air Laboratory Data 24H Labs Laboratory Tests 2 08/10/19 01:01: Nucleated Red Blood Cells % (auto) 0.0, Anion Gap 11, Glomerular Filtration Rate > 60.0, Calcium Level 9.2, Total Bilirubin 0.3, Direct Bilirubin 0.2, Aspartate Amino Transf (AST/SGOT) 17, Alanine Aminotransferase (ALT/SGPT) 24, Alkaline Phosphatase 60, Total Protein 7.7, Albumin 4.1, Albumin/Globulin Ratio 1.14, Thyroid Stimulating Hormone (TSH) 0.346L, Salicylates Level 2.5L, Urine Opiates Screen NEGATIVE, Urine Methadone Screen NEGATIVE, Acetaminophen Level < 2.0L, Urine Barbiturates Screen NEGATIVE, Urine Phencyclidine Screen NEGATIVE, Urine Amphetamines Screen NEGATIVE, Urine Benzodiazepines Screen NEGATIVE, Urine Cocaine Metabolite Screen POSITIVEH, Urine Cannabinoids Screen NEGATIVE, Ethyl Alcohol Level 0.183H 08/10/19 02:12: Bedside Glucose (Misc Panel) 254H CBC/BMP Laboratory Tests 08/10/19 01:01 Medications Scheduled Ergocalciferol (Vitamin D2) (Vitamin D2) 50,000 Units Cap, 50,000 UNITS PO 1XWK, (Reported) TUESDAYS Gabapentin (Gabapentin) 300 Mg Capsule, 600 MG PO TID, (Reported) Haloperidol (Haloperidol) 10 Mg Tablet, 10 MG PO BID, (Reported) Insulin Glargine,Hum.rec.anlog (Toujeo Solostar) 300 Unit/1 Ml Insuln.pen, 20 UNIT SC DAILY, (Reported) Insulin Lispro (Admelog) 100 Unit/1 Ml Vial, 1 DOSE SC AC, (Reported) PER SLIDING SCALE Quetiapine Fumarate (Seroquel) 400 Mg Tablet, 400 MG PO QHS, (Reported) Scheduled PRN Meloxicam (Meloxicam) 15 Mg Tablet, 15 MG PO DAILY PRN for PAIN, (Reported) Allergies Coded Allergies: risperidone (Verified Allergy, Unknown, 08/10/19) KHADRA BOSWELL DO Aug 10, 2019 11:35
--- NOTE | 2019-08-10 11:45 | MHDSPDOC ---
[facility] Discharge Summary Discharge Summary DATE OF ADMISSION: Aug 10, 2019 at 06:22 DATE OF DISCHARGE: Aug 10, 2019 DISCHARGE DIAGNOSES: paranoid schizophrenia cocaine/alcohol use d/o REASON FOR ADMISSION: Patient is a 48 -year-old , male, with a history of schizophrenia who was brought to ED on a 9.41 after he called the police due to feeling depressed after having been drinking alcohol. Pt stated in the ED that his biggest trigger was his girlfriend who wouldn't talk to him. He denied SI/HI and AVH in the the ED to U staff but told ED doc that he was having AH. Pt did not voice paranoid thoughts or delusions but was overhead as bryce ED security aid if he was a gang member and was whispering to one of the police officers and refusing to talk with the other or ED staff. Pt endorsed racing thoughts, depression, decreased energy in the ED. Pt is prescribed seroquel and haldo by [facility] where he is seen for mental health follow-up and told ED that he's been trying to wean himself off his medications b/c he doesn't want to be on them. His utox was positive cocaine and pt admitted to recent use 08/09/2019 in the ED. CONSULTANTS INVOLVED: none TREATMENT AND PROGRESS ON THE UNIT :Pt admitted to [facility] and seen for psychiatric assessment and appearing to be doing well with denies paranoia, delusions, hallucinations and is fully logical, linear, appropriate, attentive when seen. He denies depression, anxiety, insomnia, SI/HI, hallucinations, delusions, paranoia. D/c home today with follow-up at [facility]. Given refills for his outpatient seroquel 400mg qhs and haldol 10mg bid. DISCHARGE ASSESSMENT: Pt seen and states he had been arguing with his brother and his girlfriend due to the "local drug dealer" wanting to get with his girlfriend. States he had been drinking and using cocaine which caused him to "mouth off" last night and this morning. States he feels much better now that he's sobered up. States he had stopped taking his seroquel for a week as he thought he was only prescribed seroquel to help him sleep and he had wanted to see if he could sleep "naturally" w/o it. Informed pt that it is also for his m ood and thoughts which he denies he knew but will be compliant on it nightly now that he knows. He states he's been compliant on his haldol daily. He denies paranoia, delusions, hallucinations and is fully logical, linear, appropriate, attentive when seen. He denies SI/HI and feels safe to go home today with follow-up at [facility]. MENTAL STATUS EXAMINATION ON DISCHARGE: General Appearance: well groomed, appears stated age, hospital scubs/clothing Build: average Demeanor: average Eye Contact: average Activity: average Behavior: cooperative Speech: clear, spontaneous, normal volume, reg/rate,rhythm,volume Mood: euthymic Mood "I'm fine" Affect: full, appropriate, congruent Thought Process: logical/linear, intact Thought Content (Delusions): none reported, denies SI, HI, AVH Thought Content (Other): none reported Thought Content (Aggressive): none reported Perception (Hallucinations): none reported Perception (Other): none reported Cognition (Impairment of): none reported Cognition(Intelligence Est.): average Oriented: Awake, Alert, Oriented times three Insight: good Judgment: Good Psychosis: Denies MEDICATIONS ON DISCHARGE: seroquel 400mg qhs haldol 10mg bid PLAN/FOLLOWUP ARRANGEMENTS: D/c home with follow-up at [facility]. The amount of time spent in the coordination of care for this patient was approximately minutes. Vital Signs/I&Os Vital Signs Date Time Temp Pulse Resp B/P (MAP) Pulse Ox O2 Delivery O2 Flow Rate FiO2 08/10/19 08:21 98.8 87 18 138/70 (92) 99 08/10/19 00:55 Room Air Laboratory Data Labs 24H Laboratory Tests 2 08/10/19 01:01: Nucleated Red Blood Cells % (auto) 0.0, Anion Gap 11, Glomerular Filtration Rate > 60.0, Calcium Level 9.2, Total Bilirubin 0.3, Direct Bilirubin 0.2, Aspartate Amino Transf (AST/SGOT) 17, Alanine Aminotransferase (ALT/SGPT) 24, Alkaline Phosphatase 60, Total Protein 7.7, Albumin 4.1, Albumin/Globulin Ratio 1.14, Thyroid Stimulating Hormone (TSH) 0.346L, Salicylates Level 2.5L, Urine Opiates Screen NEGATIVE, Urine Methadone Screen NEGATIVE, Acetaminophen Level < 2.0L, Urine Barbiturates Screen NEGATIVE, Urine Phencyclidine Screen NEGATIVE, Urine Amphetamines Screen NEGATIVE, Urine Benzodiazepines Screen NEGATIVE, Urine Cocaine Metabolite Screen POSITIVEH, Urine Cannabinoids Screen NEGATIVE, Ethyl Alcohol Level 0.183H 08/10/19 02:12: Bedside Glucose (Misc Panel) 254H 08/10/19 11:27: Bedside Glucose (Misc Panel) 321H CBC/BMP Laboratory Tests 08/10/19 01:01 Medications Scheduled Ergocalciferol (Vitamin D2) (Vitamin D2) 50,000 Units Cap, 50,000 UNITS PO 1XWK, (Reported) TUESDAYS Gabapentin (Gabapentin) 300 Mg Capsule, 600 MG PO TID, (Reported) Haloperidol (Haloperidol) 10 Mg Tablet, 10 MG PO BID, (Reported) Insulin Glargine,Hum.rec.anlog (Toujeo Solostar) 300 Unit/1 Ml Insuln.pen, 20 UNIT SC DAILY, (Reported) Insulin Lispro (Admelog) 100 Unit/1 Ml Vial, 1 DOSE SC AC, (Reported) PER SLIDING SCALE Quetiapine Fumarate (Seroquel) 400 Mg Tablet, 400 MG PO QHS, (Reported) Scheduled PRN Meloxicam (Meloxicam) 15 Mg Tablet, 15 MG PO DAILY PRN for PAIN, (Reported) Allergies Coded Allergies: risperidone (Verified Allergy, Unknown, 08/10/19) KHADRA BOSWELL DO Aug 10, 2019 11:45
[2019-08-10] MEDS ORDERED: HumaLOG INSULIN (NovoLOG) PER UNIT SC SCH ×2 (12:00→21:00)
--- NOTE | 2019-08-10 12:51 | HPEPDOC ---
General Date of Admission Aug 10, 2019 at 06:22 Date of Service: Aug 10, 2019 Chief Complaint The patient is a 48-year-old male Who presented to the emergency room with complaints of excessive alcohol consumption and drug use. History of Present Illness Patient is a 48-year-old male with a PMHx of IDDM1, Neuropathy, Vitamin D deficiency and Osteoarthritis who presented to the emergency room with complaints of excessive alcohol consumption and drug use. Patient has reported the consumption of cocaine yesterday evening. Patient was admitted to the inpatient mental health. He noted under the care of psychiatry. Hospitalist service was consultation for medical screening evaluation. Currently, patient was seen and evaluated the bedside. He reports that he is not experiencing any headache, chest pain, shortness of breath, palpitations, cough, pain, constipation, diarrhea, urinary discomfort or fever/chills. Patient does report that his appetite is fairly normal and denies any significant changes in his weight. Home Medications Scheduled Ergocalciferol (Vitamin D2) (Vitamin D2) 50,000 Units Cap, 50,000 UNITS PO 1XWK, (Reported) TUESDAYS Gabapentin (Gabapentin) 300 Mg Capsule, 600 MG PO TID, (Reported) Haloperidol (Haloperidol) 10 Mg Tablet, 10 MG PO BID for schizophrenia Insulin Glargine,Hum.rec.anlog (Touvolodymyr Solcecear) 300 Unit/1 Ml Insuln.pen, 20 UNIT SC DAILY, (Reported) Insulin Lispro (Admelog) 100 Unit/1 Ml Vial, 1 DOSE SC AC, (Reported) PER SLIDING SCALE Quetiapine Fumarate (Seroquel) 400 Mg Tablet, 400 MG PO QHS for schizophrenia Scheduled PRN Meloxicam (Meloxicam) 15 Mg Tablet, 15 MG PO DAILY PRN for PAIN, (Reported) Allergies Coded Allergies: risperidone (Verified Allergy, Unknown, 08/10/19) Past Medical History Medical History IDDM1, Neuropathy, Vitamin D deficiency and Osteoarthritis Surgical History Neck cyst removal Family History - Patient has denied any prior medical history in his family Social History - Patient reports that he is an active smoker of 40 years at [employer]; reports the use of alcohol. Reports the use of 4 large cans of beer at 24 ounces each. Over last couple days has reported drug use with cocaine, last use report yesterday - Denies recent travel or sick contacts - Lives alone - Occupation; patient is currently on disability Review of Systems Other systems 10 point review of systems complete, all negative otherwise stated in HPI Vital Signs - Vitals: BP 118/82, HR 89, RR 16, Sat 97%RA, Temp 98.8F - General: Lying in bed, No acute distress, Speaking in full sentences, AAOx3 - HEENT: NC, AT, PERRLA, EOMI - CVS: RRR, +S1S2 - Lungs: Fair air entry bilaterally, No appreciable wheezing / rales / rhonchi - Abdomen: Soft, Non-distended, Non-tender - Extremities: No lower extremity edema, No calf tenderness - Neuro: No focal motor or sensory deficit - Skin: No visible rashes Laboratory Data Labs 24H Laboratory Tests 2 08/10/19 01:01: Nucleated Red Blood Cells % (auto) 0.0, Anion Gap 11, Glomerular Filtration Rate > 60.0, Calcium Level 9.2, Total Bilirubin 0.3, Direct Bilirubin 0.2, Aspartate Amino Transf (AST/SGOT) 17, Alanine Aminotransferase (ALT/SGPT) 24, Alkaline Phosphatase 60, Total Protein 7.7, Albumin 4.1, Albumin/Globulin Ratio 1.14, Thyroid Stimulating Hormone (TSH) 0.346L, Salicylates Level 2.5L, Urine Opiates Screen NEGATIVE, Urine Methadone Screen NEGATIVE, Acetaminophen Level < 2.0L, Urine Barbiturates Screen NEGATIVE, Urine Phencyclidine Screen NEGATIVE, Urine Amphetamines Screen NEGATIVE, Urine Benzodiazepines Screen NEGATIVE, Urine Cocaine Metabolite Screen POSITIVEH, Urine Cannabinoids Screen NEGATIVE, Ethyl Alcohol Level 0.183H 08/10/19 02:12: Bedside Glucose (Misc Panel) 254H 08/10/19 11:27: Bedside Glucose (Misc Panel) 321H CBC/BMP Laboratory Tests 08/10/19 01:01 Plan / VTE VTE Prophylaxis Ordered?: Yes Plan Plan Alcohol abuse/drug abuse - Patient has been admitted to the inpatient mental health unit under the care of psychiatry - This is currently being managed by psychiatry IDDM1 - We will continue with insulin sliding scale and adjust the dose of long-acting insulin Neuropathy - Continue with gabapentin Vitamin D deficiency - Continue with supplementation as an outpatient Osteoarthritis - Continue with Tylenol when necessary DVT prophylaxis - c/w early ambulation BRANDON URIARTE MD Aug 10, 2019 12:51
== END 2019-08-10 14:40 | disposition home or self-care (01) | DRG 750 ==
LOC: M ED 00:29 → M ED INP 06:22 → M PSY 08:32
PROVIDERS: ADMIT Psychiatry & Neurology Psychiatry; ATTEND Psychiatry & Neurology Psychiatry
DX: F20.0 Paranoid schizophrenia (principal); E11.40 Type 2 diabetes mellitus with diabetic neuropathy, unspecified; F10.10 Alcohol abuse, uncomplicated; F14.90 Cocaine use, unspecified, uncomplicated; Z79.899 Other long term (current) drug therapy; Z79.4 Long term (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 of insulin; Z88.8 Allergy status to other drugs, medicaments and biological substances; E55.9 Vitamin D deficiency, unspecified; M19.90 Unspecified osteoarthritis, unspecified site; F17.200 Nicotine dependence, unspecified, uncomplicated

== ENCOUNTER → 2019-10-19 | Outpatient (REF) | payer MEDICAID ==
[~2019-10-19] MED LIST changes: +ADME100I SC; +SERO400T PO; +VITA50005 PO
[2019-10-19 16:44] LABS: BASO % 0.4 % (0.0-1.0); EOS # 0.1 10^3/uL (0.0-0.5); EOS % 1.6 % (0.0-3.0); HEMATOCRIT 45.6 % (42.0-52.0); HEMOGLOBIN 15.9 g/dl (13.5-17.5); LYMPH # 1.7 10^3/uL (1.5-5.0); LYMPH % 22.6 % (24.0-44.0); MEAN CORPUSCULAR HEMOGLOBIN 31.1 pg (27.0-33.0); MEAN CORPUSCULAR HGB CONC 34.9 g/dl (32.0-36.5); MEAN CORPUSCULAR VOLUME 89.1 fl (80.0-96.0); MONO # 0.5 10^3/uL (0.0-0.8); MONO % 6.9 % (0.0-5.0); NEUTROPHILS # 5.2 10^3/uL (1.5-8.5); NEUTROPHILS % 68.1 % (36.0-66.0); PLATELET COUNT, AUTOMATED 250 10^3/uL (150-450); RED BLOOD COUNT 5.12 10^6/uL (4.30-6.10); WHITE BLOOD COUNT 7.7 10^3/uL (4.0-10.0)
[2019-10-19 17:03] LABS: HEMOGLOBIN A1c 10.4 %
[2019-10-19 17:19] LABS: ALT/SGPT 20 U/L (12-78); BILIRUBIN,TOTAL 0.9 MG/DL (0.2-1.0); BLOOD UREA NITROGEN 10 MG/DL (7-18); CALCIUM LEVEL 9.7 MG/DL (8.5-10.1); CARBON DIOXIDE LEVEL 25 MEQ/L (21-32); CHLORIDE LEVEL 103 MEQ/L (98-107); CREATININE FOR GFR 0.83 MG/DL (0.70-1.30); GLOMERULAR FILTRATION RATE > 60.0 (>56); GLUCOSE, FASTING 120 MG/DL (70-100); SODIUM LEVEL 137 MEQ/L (136-145); TOTAL PROTEIN 8.1 GM/DL (6.4-8.2)
[2019-10-19 17:29] LABS: APPEARANCE, URINE HAZY (CLEAR); BACTERIA, URINE AUTO NEGATIVE (NEGATIVE); BILIRUBIN, URINE AUTO NEGATIVE (NEGATIVE); BLOOD, URINE BLOOD NEGATIVE (NEGATIVE); COLOR, URINE YELLOW (YELLOW); GLUCOSE, URINE (UA) AUTO NEGATIVE (NEGATIVE); KETONE, URINE AUTO TRACE mg/dL (NEGATIVE); LEUKOCYTE ESTERASE, URINE AUTO NEGATIVE (NEGATIVE); MUCUS, URINE SMALL (NEGATIVE); NITRITE, URINE AUTO NEGATIVE (NEGATIVE); PROTEIN, URINE AUTO NEGATIVE (NEGATIVE); RBC, URINE AUTO 1 /HPF (0-3); SPECIFIC GRAVITY URINE AUTO 1.015 (1.002-1.035); SQUAMOUS EPITHELIAL CELL UR AU 1 /HPF (0-6); WBC, URINE AUTO 3 /HPF (0-3)
[2019-10-19 19:44] LABS: CHLAMYDIA DNA AMPLIFICATION NEGATIVE (NEGATIVE); GC DNA AMPLIFICATION NEGATIVE (NEGATIVE)
== END ==
LOC: M LAB REF 16:10
PROVIDERS: ATTEND Nurse Practitioner Adult Health
DX: Z13.9 Encounter for screening, unspecified (principal)

== ENCOUNTER → 2020-01-18 | Outpatient (REF) | payer MEDICAID | LOC: M LAB REF 17:20 | PROVIDERS: ATTEND Nurse Practitioner Adult Health | DX: Z13.9 Encounter for screening, unspecified (principal) ==

== ENCOUNTER → 2020-02-09 | Outpatient (REF) | payer MEDICAID | LOC: M LAB REF 07:35 | PROVIDERS: ATTEND Nurse Practitioner Adult Health | DX: Z51.81 Encounter for therapeutic drug level monitoring (principal) ==

== ENCOUNTER 2020-05-31 15:34 | Emergency (ER) | payer OTHER ==
[~2020-05-31] VITALS: Ht 167.6 cm; Wt 77.3 kg
[2020-05-31 15:44] VITALS: BP 154/98
[2020-05-31] MEDS ORDERED: LORazepam 2 MG TAB PO PRN (16:45)
[2020-05-31] MEDS ORDERED: THIAMINE 100 MG TAB PO SCH (21:00)
[2020-06-01] MEDS ORDERED: FOLIC ACID 1 MG TAB PO SCH (09:00)
[2020-06-01] MEDS ORDERED: MULTIVITAMINS/MINERALS THERAP 1 TAB PO SCH (09:00)
== END 2020-05-31 17:20 | disposition left against medical advice (07) ==
LOC: EDBD 15:34 → M ED 15:34
DX: R10.9 Unspecified abdominal pain (principal); F15.129 Other stimulant abuse with intoxication, unspecified; F10.10 Alcohol abuse, uncomplicated; F20.0 Paranoid schizophrenia; F41.9 Anxiety disorder, unspecified; F32.9 Major depressive disorder, single episode, unspecified; B19.20 Unspecified viral hepatitis C without hepatic coma; K21.9 Gastro-esophageal reflux disease without esophagitis; E11.9 Type 2 diabetes mellitus without complications; Z88.8 Allergy status to other drugs, medicaments and biological substances

== ENCOUNTER → 2020-06-13 | Outpatient (REF) | payer OTHER ==
[2020-06-13 17:41] LABS: ALBUMIN 3.5 GM/DL (3.2-5.2); ALT/SGPT 38 U/L (12-78); BILIRUBIN,TOTAL 0.1 MG/DL (0.2-1.0); BLOOD UREA NITROGEN 15 MG/DL (7-18); CALCIUM LEVEL 9.1 MG/DL (8.5-10.1); CARBON DIOXIDE LEVEL 26 MEQ/L (21-32); CHLORIDE LEVEL 108 MEQ/L (98-107); CREATININE FOR GFR 1.02 MG/DL (0.70-1.30); GLOMERULAR FILTRATION RATE > 60.0 (>56); GLUCOSE, FASTING 142 MG/DL (70-100); POTASSIUM SERUM 3.6 MEQ/L (3.5-5.1); SODIUM LEVEL 143 MEQ/L (136-145); TOTAL PROTEIN 7.2 GM/DL (6.4-8.2)
[2020-06-13 18:41] LABS: HEMOGLOBIN A1c 9.7 %
== END ==
LOC: M LAB REF 16:06
PROVIDERS: ATTEND Nurse Practitioner Adult Health
DX: M25.551 Pain in right hip (principal)

== ENCOUNTER 2020-09-01 12:20 | Emergency (ER) | payer OTHER ==
[~2020-09-01] VITALS: Ht 170.2 cm; Wt 73.6 kg
[~2020-09-01 12:20] MED LIST changes: +GABA-282 PO; -GABA-843 PO; -QUET1TAB10 PO; +QUET300T2 PO
[2020-09-01 13:12] LABS: HEMATOCRIT 40.7 % (42.0-52.0); HEMOGLOBIN 13.3 g/dl (13.5-17.5); MEAN CORPUSCULAR HGB CONC 32.7 g/dl (32.0-36.5); MEAN CORPUSCULAR VOLUME 88.9 fl (80.0-96.0); PLATELET COUNT, AUTOMATED 272 10^3/uL (150-450); RED BLOOD COUNT 4.58 10^6/uL (4.30-6.10); WHITE BLOOD COUNT 7.4 10^3/uL (4.0-10.0)
[2020-09-01 13:14] LABS: AMPHETAMINES LEVEL URINE NEGATIVE (NEGATIVE); BARBITURATES URINE NEGATIVE (NEGATIVE); BENZODIAZEPINES URINE NEGATIVE (NEGATIVE); CANNABINOIDS URINE NEGATIVE (NEGATIVE); COCAINE METABOLITE URINE NEGATIVE (NEGATIVE); METHADONE URINE NEGATIVE (NEGATIVE); OPIATES URINE POSITIVE (NEGATIVE); PHENCYCLIDINE URINE NEGATIVE (NEGATIVE)
[2020-09-01] MEDS ORDERED: TAMS1CAP17 PO (13:30)
[2020-09-01] MEDS ORDERED: BENZ-52 PO (13:30)
[2020-09-01] MEDS ORDERED: GABA-845 PO (13:30)
[2020-09-01] MEDS ORDERED: HALO10TA20 PO (13:30)
[2020-09-01 13:41] LABS: ACETAMINOPHEN LEVEL < 2.0 UG/ML (10.0-30.0); ALT/SGPT 19 U/L (12-78); BILIRUBIN,DIRECT 0.1 MG/DL (0.0-0.2); BILIRUBIN,TOTAL 0.5 MG/DL (0.2-1.0); BLOOD UREA NITROGEN 15 MG/DL (7-18); CARBON DIOXIDE LEVEL 25 MEQ/L (21-32); CHLORIDE LEVEL 103 MEQ/L (98-107); CREATININE FOR GFR 1.03 MG/DL (0.70-1.30); ETHYL ALCOHOL (ETHANOL) 0.003 % (0.000-0.010); GLOMERULAR FILTRATION RATE > 60.0 (>56); GLUCOSE, FASTING 339 MG/DL (70-100); POTASSIUM SERUM 3.9 MEQ/L (3.5-5.1); SALICYLATE LEVEL 3.1 MG/DL (5.0-30.0); SODIUM LEVEL 136 MEQ/L (136-145); THYROID STIMULATING HORMONE 0.406 uIU/ML (0.358-3.740); TOTAL PROTEIN 8.3 GM/DL (6.4-8.2)
[2020-09-01] MEDS ORDERED: HumaLOG INSULIN (NovoLOG) PER UNIT SC ONE (14:00)
[2020-09-01] MEDS ORDERED: HumaLOG INSULIN (NovoLOG) PER UNIT SC STA (15:19)
[2020-09-01 15:25] LABS: RSV AMPLIFICATION NEGATIVE (NEGATIVE)
--- NOTE | 2020-09-01 16:30 | ECGEPIP ---
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
[2020-09-01] MEDS ORDERED: BENZTROPINE 1 MG TAB PO SCH (21:00)
[2020-09-01 21:16] VITALS: BP 138/70
[2020-09-02] MEDS ORDERED: TAMSULOSIN 0.4 MG CAP PO SCH (09:00)
== END 2020-09-01 21:19 ==
LOC: M ED 12:20
DX: F20.9 Schizophrenia, unspecified (principal); E11.9 Type 2 diabetes mellitus without complications; F17.200 Nicotine dependence, unspecified, uncomplicated; Z88.8 Allergy status to other drugs, medicaments and biological substances

== ENCOUNTER 2020-09-15 07:53 | Emergency (ER) | payer OTHER ==
[~2020-09-15] VITALS: Ht 180.3 cm; Wt 72.7 kg
[~2020-09-15 07:53] MED LIST changes: +BENZ-52 PO; +GABA-845 PO; +TAMS1CAP17 PO
[2020-09-15] MEDS ORDERED: HALOPERIDOL 5MG/ML VIAL (J1630 PER 1) IM ONE (08:15)
[2020-09-15] MEDS ORDERED: diphenhydrAMINE 50MG/ML VIAL (J1200) IM ONE (08:15)
[2020-09-15] MEDS ORDERED: LORazepam 2 MG/ML VIAL IM ONE (08:15)
[2020-09-15 09:34] LABS: HEMATOCRIT 38.9 % (42.0-52.0); MEAN CORPUSCULAR HEMOGLOBIN 29.4 pg (27.0-33.0); MEAN CORPUSCULAR HGB CONC 33.4 g/dl (32.0-36.5); PLATELET COUNT, AUTOMATED 221 10^3/uL (150-450); RED BLOOD COUNT 4.42 10^6/uL (4.30-6.10); WHITE BLOOD COUNT 6.1 10^3/uL (4.0-10.0)
[2020-09-15 10:19] LABS: ALBUMIN 3.8 GM/DL (3.2-5.2); ALT/SGPT 21 U/L (12-78); BILIRUBIN,DIRECT 0.2 MG/DL (0.0-0.2); BILIRUBIN,TOTAL 0.5 MG/DL (0.2-1.0); BLOOD UREA NITROGEN 16 MG/DL (7-18); CARBON DIOXIDE LEVEL 26 MEQ/L (21-32); CHLORIDE LEVEL 105 MEQ/L (98-107); CREATININE FOR GFR 0.86 MG/DL (0.70-1.30); GLOMERULAR FILTRATION RATE > 60.0 (>56); GLUCOSE, FASTING 199 MG/DL (70-100); SALICYLATE LEVEL < 1.7 MG/DL (5.0-30.0); SODIUM LEVEL 137 MEQ/L (136-145); TOTAL PROTEIN 7.6 GM/DL (6.4-8.2)
[2020-09-15 10:20] LABS: ACETAMINOPHEN LEVEL < 2.0 UG/ML (10.0-30.0); ETHYL ALCOHOL (ETHANOL) < 0.003 % (0.000-0.010)
[2020-09-15 12:54] LABS: AMPHETAMINES LEVEL URINE NEGATIVE (NEGATIVE); BARBITURATES URINE NEGATIVE (NEGATIVE); BENZODIAZEPINES URINE NEGATIVE (NEGATIVE); CANNABINOIDS URINE NEGATIVE (NEGATIVE); COCAINE METABOLITE URINE POSITIVE (NEGATIVE); METHADONE URINE NEGATIVE (NEGATIVE); OPIATES URINE NEGATIVE (NEGATIVE); PHENCYCLIDINE URINE NEGATIVE (NEGATIVE)
[2020-09-15 23:04] VITALS: BP 105/56
== END 2020-09-15 23:37 | disposition home or self-care (01) ==
LOC: M ED 07:53
DX: F14.159 Cocaine abuse with cocaine-induced psychotic disorder, unspecified (principal); E11.649 Type 2 diabetes mellitus with hypoglycemia without coma; F20.9 Schizophrenia, unspecified; M19.90 Unspecified osteoarthritis, unspecified site; F17.200 Nicotine dependence, unspecified, uncomplicated; Z88.8 Allergy status to other drugs, medicaments and biological substances; Z79.899 Other long term (current) drug therapy; Z79.4 Long term (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 of insulin; Z91.128 Patient's intentional underdosing of medication regimen for other reason
CPT/HCPCS: 36415; 80048; 80076; 80143; 80307; 82077; 84443; 85027; 96372; 99285; J1200; J1630; J2060

== ENCOUNTER 2020-09-29 12:00 | Emergency (ER) | payer OTHER | END 2020-09-29 12:20 | disposition left against medical advice (07) | LOC: M ED 12:00 → EDBD 12:00 → M ED 12:20 | DX: Z53.21 Procedure and treatment not carried out due to patient leaving prior to being seen by health care provider (principal) ==

== ENCOUNTER 2020-09-30 20:17 | Inpatient (IN) | payer MEDICARE, OTHER ==
[~2020-09-30] VITALS: Ht 170.2 cm; Wt 73.5 kg
[2020-09-30] MEDS ORDERED: LORazepam 2 MG TAB PO STA (20:39)
[2020-09-30] MEDS ORDERED: haloperidoL 5 MG TAB PO ONE (20:40)
[2020-09-30] MEDS ORDERED: LORazepam 2 MG/ML VIAL IM STA (20:46)
[2020-09-30] MEDS ORDERED: diphenhydrAMINE 50MG/ML VIAL (J1200) IM STA (20:46)
[2020-09-30] MEDS ORDERED: HALOPERIDOL 5MG/ML VIAL (J1630 PER 1) IM STA (20:46)
[2020-10-01 00:06] LABS: HEMATOCRIT 35.7 % (42.0-52.0); HEMOGLOBIN 11.8 g/dl (13.5-17.5); MEAN CORPUSCULAR HEMOGLOBIN 28.9 pg (27.0-33.0); MEAN CORPUSCULAR HGB CONC 33.1 g/dl (32.0-36.5); MEAN CORPUSCULAR VOLUME 87.3 fl (80.0-96.0); PLATELET COUNT, AUTOMATED 222 10^3/uL (150-450); RED BLOOD COUNT 4.09 10^6/uL (4.30-6.10)
[2020-10-01 00:32] LABS: AMPHETAMINES LEVEL URINE NEGATIVE (NEGATIVE); BARBITURATES URINE NEGATIVE (NEGATIVE); BENZODIAZEPINES URINE NEGATIVE (NEGATIVE); CANNABINOIDS URINE NEGATIVE (NEGATIVE); COCAINE METABOLITE URINE POSITIVE (NEGATIVE); METHADONE URINE NEGATIVE (NEGATIVE); OPIATES URINE NEGATIVE (NEGATIVE); PHENCYCLIDINE URINE NEGATIVE (NEGATIVE)
[2020-10-01 00:38] LABS: ACETAMINOPHEN LEVEL < 2.0 UG/ML (10.0-30.0); ALBUMIN 3.4 GM/DL (3.2-5.2); ALT/SGPT 22 U/L (12-78); BILIRUBIN,DIRECT 0.1 MG/DL (0.0-0.2); BILIRUBIN,TOTAL 0.3 MG/DL (0.2-1.0); BLOOD UREA NITROGEN 11 MG/DL (7-18); CALCIUM LEVEL 8.9 MG/DL (8.5-10.1); CARBON DIOXIDE LEVEL 26 MEQ/L (21-32); CHLORIDE LEVEL 105 MEQ/L (98-107); CREATININE FOR GFR 0.69 MG/DL (0.70-1.30); ETHYL ALCOHOL (ETHANOL) < 0.003 % (0.000-0.010); GLOMERULAR FILTRATION RATE > 60.0 (>56); GLUCOSE, FASTING 201 MG/DL (70-100); POTASSIUM SERUM 4.3 MEQ/L (3.5-5.1); SALICYLATE LEVEL < 1.7 MG/DL (5.0-30.0); SODIUM LEVEL 138 MEQ/L (136-145); TOTAL PROTEIN 7.1 GM/DL (6.4-8.2)
[2020-10-01] MEDS ORDERED: QUET200T2 PO (04:56)
[2020-10-01] MEDS ORDERED: TAMSULOSIN 0.4 MG CAP PO ONE (07:55)
[2020-10-01] MEDS ORDERED: GABAPENTIN 400MG CAP PO ONE (07:55)
[2020-10-01] MEDS ORDERED: HumaLOG INSULIN (NovoLOG) PER UNIT SC ONE ×3 (07:55→12:20)
[2020-10-01] MEDS: LEVEMIR (INSULIN DETEMIR) 1 UNITS/0.01ML SC SCH (09:03)
[2020-10-01] MEDS ORDERED: MAALOX 30 ML SUSP *UDC PO PRN (13:05)
[2020-10-01] MEDS ORDERED: ACETAMINOPHEN TAB 650MG DOSE (2X325MG) PO PRN (13:05)
[2020-10-01] MEDS ORDERED: traZODone 50 MG TAB PO PRN (13:05)
[2020-10-01] MEDS ORDERED: MOM 30ML SUSPENSION UDC PO PRN (13:05)
[2020-10-01 14:08] LABS: RSV AMPLIFICATION NEGATIVE (NEGATIVE)
[2020-10-02] MEDS: LEVEMIR (INSULIN DETEMIR) 1 UNITS/0.01ML SC SCH (10:20)
--- NOTE | 2020-10-02 13:30 | MHHPE ---
HISTORY AND PHYSICAL DATE OF ADMISSION: 10/01/2020 IDENTIFYING DATA: He is a 48-year-old male, unmarried, father of two children, supported by disability, who was admitted for paranoid behavior and a danger to self or others. CHIEF COMPLAINT: "I am being followed by gang members." HISTORY OF PRESENT ILLNESS: The patient was brought to the E.D. by the police because he went to the police stating that someone is following him. He reports that he loaned some money to a lady to whom he asked for the money and got it. After that the lady's brother is coming after him with gang members to hurt him. When he came to the E.D., he refused to enter the room unless they would lock the patient's room. However after a long persuasion he came and got evaluated. There is significant paranoia but denied any hallucinations. He is a somewhat poor historian, unable to go through a lot of details. The patient was admitted to [facility] about a year ago. Reportedly he was having paranoia and auditory hallucinations, was diagnosed with paranoid schizophrenia. He was on Haldol and Seroquel. He reports he takes his medications properly. He denies any current stressors. PAST PSYCHIATRIC HISTORY: He has had two to three psychiatric hospitalizations in the past. He has been diagnosed a paranoid schizophrenia. He had one suicide attempt by cutting his wrists when he was 14 years old. He reports he has been using some drugs, Sarai. The last time he used was 2 days ago. He has used alcohol in the past extensively, but he has been sober from it. PAST MEDICAL HISTORY: The patient has a history of diabetes mellitus. FAMILY HISTORY: Denies family history of mental illness. PERSONAL HISTORY: He was raised by both father and mother. He dropped out of school when he was a tenth grader. He completed a GED. 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 Currently he is supported by disability. MENTAL STATUS EXAMINATION: Casually but cooperative, made good eye contract. Mood is anxious. Affect is appropriate for the mood. Speech is goal directed. The patient is somewhat delusional. Most of the time he has been having the same history of being followed by gang members. His insight and judgment are poor. Memory immediate, remote and recent are good. VITAL SIGNS: Temperature 98.4, pulse is 83, respiratory rate is 18, blood pressure is 99/63, pulse oximetry 99%. LABORATORY STUDIES: CBC within normal limits. CMP fasting glucose was 201. Otherwise within normal limits. Toxicology was positive for cocaine. CURRENT MEDICATIONS: The patient is on: 1. Haldol. 2. Seroquel. The doses are not known. We will confirm this from the Pharmacy. PLAN: 1. Admit to Inpatient Mental Health Unit (MHU). 2. He will be followed up by Medicine for medical needs. 3. He will kept on suicide precautions. 4. He will receive individual, group and milieu therapy. 5. The patient will attend activities. 6. He will be seen by Faculty Dean and Case Management. ESTIMATED LENGTH OF STAY: Four to five days. TIME SPENT WITH THE PATIENT: Forty-five minutes.
[2020-10-02] MEDS ORDERED: GLUCOSE 4GM CHEW TABLET PO PRN (13:40)
[2020-10-02] MEDS ORDERED: GLUCAGON INJ 1MG VIAL SC PRN (13:40)
[2020-10-02] MEDS ORDERED: DEXTROSE 50% 50 ML SYRINGE IV PRN (13:40)
--- NOTE | 2020-10-02 14:32 | HPEPDOC ---
General Date of Admission Oct 01, 2020 at 13:04 Date of Service: Oct 02, 2020 Chief Complaint The patient is a 49-year-old male admitted with a reason for visit of Psychosis. History of Present Illness Patient is a 49-year-old male with a PMHx of IDDM1, Neuropathy, Vitamin D deficiency and Osteoarthritis, polysubstance abuse was admitted to [facility] for unspecified psychosis. u tox was positive for cocaine. He is being examined here today for medical history and physical. At present he does not offer any complaints. Home Medications Scheduled Benztropine Mesylate (Benztropine Mesylate) 1 Mg Tablet, 1 MG PO QHS, (Reported) Ergocalciferol (Vitamin D2) (Vitamin D2) 50,000 Units Cap, 50,000 UNITS PO 1XWK, (Reported) TUESDAYS Gabapentin (Gabapentin) 400 Mg Capsule, 800 MG PO TID, (Reported) Haloperidol (Haloperidol) 10 Mg Tablet, 10 MG PO BID, (Reported) Insulin Glargine,Hum.rec.anlog (Hermilo Flores) 300 Unit/1 Ml Insuln.pen, 30 UNIT SC DAILY, (Reported) Insulin Lispro (Admelog) 100 Unit/1 Ml Vial, 1 DOSE SC AC, (Reported) PER SLIDING SCALE Quetiapine Fumarate (Quetiapine Fumarate) 200 Mg Tablet, 200 MG PO QPM, (Reported) Tamsulosin Hcl (Tamsulosin HCl) 0.4 Mg Capsule, 0.4 MG PO DAILY, (Reported) Scheduled PRN Meloxicam (Meloxicam) 15 Mg Tablet, 15 MG PO DAILY PRN for PAIN, (Reported) Allergies Coded Allergies: risperidone (Verified Allergy, Unknown, 08/10/19) Past Medical History Medical History IDDM1, Neuropathy, Vitamin D deficiency and Osteoarthritis,BPH, polysubstance abuse, paranoid schizophrenia, suicide attempt at age 14. Surgical History neck cyst removal Family History Significant Family History: Diabetes (Mother, sister and brother) Social History * Smoker: current smoker Alcohol: heavy Drugs: cocaine A-FIB/CHADSVASC A-FIB History Current/History of A-Fib/PAF?: No Review of Systems Constitutional: Denies: Chills, Fever, Night Sweats Eyes: Denies: Pain, Vision change ENT: Denies: Head Aches, Ear Pain, Dysphagia Skin: Denies: Rash, Lesions, Breakdown Pulmonary: Denies: Dyspnea, Cough Cardiovascular: Denies: Chest Pain, Palpitations, Orthopnea, Paroxysmal Noc. Dyspnea, Lt Headedness Gastrointestinal: Denies: Nausea, Vomiting, Abdominal Pain, Diarrhea Physical Examination General Exam: Positive: Alert, Cooperative, No Acute Distress Eye Exam: Positive: PERRLA, Conjunctiva & lids normal, EOMI; Negative: Sclera icteric ENT Exam: Positive: Atraumatic, Mucous membr. moist/pink, Pharynx Normal Chest Exam: Positive: Clear to auscultation, Normal air movement Heart Exam: Positive: Rate Normal, Regular Rhythm, Normal S1, Normal S2; Negative: Murmurs, Rubs Abdomen Exam: Positive: Normal bowel sounds, Soft; Negative: Tenderness, Hepatospenomegaly Extremity Exam: Negative: Cyanosis, Edema Vital Signs Vital Signs Date Time Temp Pulse Resp B/P (MAP) Pulse Ox O2 Delivery O2 Flow Rate FiO2 10/02/20 08:32 Room Air 10/01/20 14:39 98.4 83 18 99/63 (75) 99 Laboratory Data Labs 24H Laboratory Tests 2 10/02/20 12:23: Bedside Glucose (Misc Panel) 236H Assessment/Plan Patient is a 49-year-old male with a PMHx of IDDM1, Neuropathy, Vitamin D deficiency and Osteoarthritis, polysubstance abuse was admitted to [facility] for unspecified psychosis. u tox was positive for cocaine. He is being examined here today for medical history and physical. Psychosis as per [facility] Diabetes type 1 from age of 26 years continue levemir and lispro. FS AC. BPH tamsulosin Plan / VTE VTE Prophylaxis Ordered?: No IVONE CHILDS MD Oct 02, 2020 13:52
[2020-10-02] MEDS: HumaLOG INSULIN (NovoLOG) PER UNIT SC SCH (17:40)
--- NOTE | 2020-10-02 17:46 | ECGEPIP ---
[facility] - ED Test Date: 2020-10-01 Pat Name: RAJI FISHER Department: Room: - Gender: Male [employer] Prospect[employer] Observer: Hellen DAI : 1970 Requested By: PREET PIMENTEL Order Number: [id number] Reading MD: Cady Hallman Measurements Intervals [place] Rate: 80 P: 67 FL: 200 QRS: 0 QRSD: 72 T: 57 QT: 380 QTc: 438 Interpretive Statements Normal sinus rhythm Septal infarct , age undetermined NSTTW abnormalities increased rate 09/01/20 Electronically Signed on 10-02-2020 17:45:40 EDT by Cady Hallman
[2020-10-02 18:02] VITALS: BP 109/61
[2020-10-02] MEDS: QUEtiapine FUMARATE 200 MG TAB PO SCH (22:03)
[2020-10-03 06:00] VITALS: BP 124/79
[2020-10-03] MEDS: HumaLOG INSULIN (NovoLOG) PER UNIT SC SCH ×3 (07:33→17:04)
[2020-10-03] MEDS: LEVEMIR (INSULIN DETEMIR) 1 UNITS/0.01ML SC SCH (09:18)
[2020-10-03] MEDS: TAMSULOSIN 0.4 MG CAP PO SCH (09:18)
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
[2020-10-03 17:55] VITALS: BP 98/54
[2020-10-03] MEDS: QUEtiapine FUMARATE 200 MG TAB PO SCH (20:33)
[2020-10-04 06:34] VITALS: BP 133/74
[2020-10-04] MEDS: HumaLOG INSULIN (NovoLOG) PER UNIT SC SCH (09:09)
[2020-10-04] MEDS: LEVEMIR (INSULIN DETEMIR) 1 UNITS/0.01ML SC SCH (09:09)
[2020-10-04] MEDS: TAMSULOSIN 0.4 MG CAP PO SCH (09:10)
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
== END 2020-10-04 10:56 | disposition home or self-care (01) | DRG 885 ==
LOC: M ED 20:17 → M ED INP 10-01 13:04 → M PSY 10-01 14:45
PROVIDERS: ADMIT Psychiatry & Neurology Psychiatry; ATTEND Psychiatry & Neurology Psychiatry
DX: F20.0 Paranoid schizophrenia (principal); E10.40 Type 1 diabetes mellitus with diabetic neuropathy, unspecified; E55.9 Vitamin D deficiency, unspecified; M19.90 Unspecified osteoarthritis, unspecified site; Z79.899 Other long term (current) drug therapy; Z79.4 Long term (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 of insulin; Z88.8 Allergy status to other drugs, medicaments and biological substances; N40.0 Benign prostatic hyperplasia without lower urinary tract symptoms

== ENCOUNTER 2020-10-06 10:28 | Emergency (ER) | payer MEDICARE, OTHER ==
[2020-10-06 11:03] VITALS: BP 131/81
[2020-10-06] MEDS ORDERED: QUET400T (11:05)
[2020-10-06] MEDS ORDERED: BD P31MI2 (11:05)
[2020-10-06] MEDS ORDERED: ONETTES6 (11:05)
[2020-10-06] MEDS ORDERED: BD I1MIS12 (11:05)
== END 2020-10-06 11:30 | disposition home or self-care (01) ==
LOC: M ED 10:28
DX: F19.10 Other psychoactive substance abuse, uncomplicated (principal); F20.9 Schizophrenia, unspecified; E11.9 Type 2 diabetes mellitus without complications; F17.200 Nicotine dependence, unspecified, uncomplicated; Z88.8 Allergy status to other drugs, medicaments and biological substances; Z79.899 Other long term (current) drug therapy; Z79.4 Long term (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 of insulin

== ENCOUNTER 2020-10-27 21:25 | Emergency (ER) | payer OTHER ==
[~2020-10-27 21:25] MED LIST changes: +BD I1MIS12; +BD P31MI2; +ONETTES6; +QUET400T
[2020-10-27] MEDS ORDERED: HYDROCORTISONE 1% CREAM 30 GM TOP ONE (21:55)
[2020-10-27] MEDS ORDERED: QUEtiapine FUMARATE 200 MG TAB PO ONE (22:25)
[2020-10-27 23:42] LABS: HEMATOCRIT 37.8 % (42.0-52.0); HEMOGLOBIN 12.5 g/dl (13.5-17.5); MEAN CORPUSCULAR HEMOGLOBIN 28.8 pg (27.0-33.0); MEAN CORPUSCULAR HGB CONC 33.1 g/dl (32.0-36.5); MEAN CORPUSCULAR VOLUME 87.1 fl (80.0-96.0); PLATELET COUNT, AUTOMATED 223 10^3/uL (150-450); RED BLOOD COUNT 4.34 10^6/uL (4.30-6.10); WHITE BLOOD COUNT 6.8 10^3/uL (4.0-10.0)
[2020-10-28 00:18] LABS: RSV AMPLIFICATION NEGATIVE (NEGATIVE)
[2020-10-28 00:19] LABS: ACETAMINOPHEN LEVEL < 2.0 UG/ML (10.0-30.0); ALBUMIN 3.5 GM/DL (3.2-5.2); ALT/SGPT 30 U/L (12-78); BILIRUBIN,DIRECT 0.3 MG/DL (0.0-0.2); BILIRUBIN,TOTAL 0.6 MG/DL (0.2-1.0); BLOOD UREA NITROGEN 14 MG/DL (7-18); CALCIUM LEVEL 8.8 MG/DL (8.5-10.1); CARBON DIOXIDE LEVEL 29 MEQ/L (21-32); CHLORIDE LEVEL 102 MEQ/L (98-107); CREATININE FOR GFR 1.07 MG/DL (0.70-1.30); ETHYL ALCOHOL (ETHANOL) < 0.003 % (0.000-0.010); GLOMERULAR FILTRATION RATE > 60.0 (>56); GLUCOSE, FASTING 286 MG/DL (70-100); POTASSIUM SERUM 4.1 MEQ/L (3.5-5.1); SODIUM LEVEL 136 MEQ/L (136-145); THYROID STIMULATING HORMONE 0.441 uIU/ML (0.358-3.740); TOTAL PROTEIN 7.8 GM/DL (6.4-8.2)
[2020-10-28 04:57] LABS: AMPHETAMINES LEVEL URINE POSITIVE (NEGATIVE); BARBITURATES URINE NEGATIVE (NEGATIVE); BENZODIAZEPINES URINE NEGATIVE (NEGATIVE); CANNABINOIDS URINE NEGATIVE (NEGATIVE); COCAINE METABOLITE URINE POSITIVE (NEGATIVE); METHADONE URINE NEGATIVE (NEGATIVE); OPIATES URINE NEGATIVE (NEGATIVE); PHENCYCLIDINE URINE NEGATIVE (NEGATIVE)
--- NOTE | 2020-10-28 06:25 | ECGEPIP ---
[facility] - ED Test Date: 2020-10-28 Pat Name: RAJI FISHER Department: Room: - Gender: Male Save All Operator: MARIA ELENA : 1970 Requested By: Vinay Cat Order Number: [id number] Reading MD: April Almonte Measurements Intervals [place] Rate: 74 P: 62 MA: 188 QRS: 1 QRSD: 78 T: 46 QT: 380 QTc: 421 Interpretive Statements Normal sinus rhythm Nonspecific ST T wave changes Delayed R wave progression cw 10/01/[address] T wave changes Electronically Signed on 10-28-2020 6:25:23 EDT by April Almonte
[2020-10-28] MEDS ORDERED: METAL LOCK LOOP XX ONE (06:36)
[2020-10-28 14:12] VITALS: BP 120/77
== END 2020-10-28 14:16 ==
LOC: M ED 21:25
DX: R45.851 Suicidal ideations (principal); L30.9 Dermatitis, unspecified; F20.9 Schizophrenia, unspecified; F32.9 Major depressive disorder, single episode, unspecified; F41.9 Anxiety disorder, unspecified; K21.9 Gastro-esophageal reflux disease without esophagitis; B19.20 Unspecified viral hepatitis C without hepatic coma; E11.9 Type 2 diabetes mellitus without complications; Z87.19 Personal history of other diseases of the digestive system; Z88.8 Allergy status to other drugs, medicaments and biological substances; Z79.899 Other long term (current) drug therapy; Z79.4 Long term (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 of insulin

== ENCOUNTER 2020-11-30 07:46 | Emergency (ER) | payer OTHER ==
[~2020-11-30] VITALS: Ht 170.2 cm; Wt 85.0 kg
[~2020-11-30 07:46] MED LIST changes: +GABA-283 PO; -GABA-845 PO
[2020-11-30] MEDS ORDERED: METF850T4 PO (18:45)
[2020-11-30] MEDS ORDERED: QUET300T2 PO (18:45)
[2020-11-30] MEDS ORDERED: GABA-282 PO (18:45)
[2020-11-30] MEDS ORDERED: TRAZ-252 PO (18:51)
[2020-11-30] MEDS ORDERED: COMMENTS (18:51)
== END 2020-11-30 08:14 | disposition left against medical advice (07) ==
LOC: M ED 07:46
DX: Z53.21 Procedure and treatment not carried out due to patient leaving prior to being seen by health care provider (principal)

== ENCOUNTER 2020-11-30 10:39 | Emergency (ER) | payer OTHER ==
[~2020-11-30] VITALS: Ht 170.2 cm; Wt 77.3 kg
[2020-11-30 10:59] VITALS: BP 141/66
[2020-11-30] MEDS ORDERED: METF850T4 PO (18:45)
[2020-11-30] MEDS ORDERED: QUET300T2 PO (18:45)
[2020-11-30] MEDS ORDERED: GABA-282 PO (18:45)
[2020-11-30] MEDS ORDERED: TRAZ-252 PO (18:51)
[2020-11-30] MEDS ORDERED: COMMENTS (18:51)
== END 2020-11-30 12:21 | disposition left against medical advice (07) ==
LOC: M ED 10:39
DX: Z53.21 Procedure and treatment not carried out due to patient leaving prior to being seen by health care provider (principal)

== ENCOUNTER 2020-11-30 12:18 | Emergency (ER) | payer OTHER ==
[~2020-11-30] VITALS: Ht 170.2 cm; Wt 72.7 kg
[2020-11-30] MEDS ORDERED: OLANZapine ORAL DISINTEGRATING TAB 5MG PO ONE (13:00)
[2020-11-30] MEDS ORDERED: LORazepam 1 MG TAB PO ONE (13:00)
[2020-11-30] MEDS ORDERED: HALOPERIDOL 5MG/ML VIAL (J1630 PER 1) IM ONE (14:25)
[2020-11-30] MEDS ORDERED: LORazepam 2 MG/ML VIAL IM ONE (14:25)
[2020-11-30] MEDS ORDERED: diphenhydrAMINE 50MG/ML VIAL (J1200) IM ONE (14:25)
[2020-11-30 15:50] LABS: HEMATOCRIT 35.9 % (42.0-52.0); HEMOGLOBIN 11.9 g/dl (13.5-17.5); MEAN CORPUSCULAR HGB CONC 33.1 g/dl (32.0-36.5); MEAN CORPUSCULAR VOLUME 87.3 fl (80.0-96.0); PLATELET COUNT, AUTOMATED 196 10^3/uL (150-450); RED BLOOD COUNT 4.11 10^6/uL (4.30-6.10); WHITE BLOOD COUNT 10.2 10^3/uL (4.0-10.0)
[2020-11-30 16:12] LABS: AMPHETAMINES LEVEL URINE NEGATIVE (NEGATIVE); BARBITURATES URINE NEGATIVE (NEGATIVE); BENZODIAZEPINES URINE NEGATIVE (NEGATIVE); CANNABINOIDS URINE NEGATIVE (NEGATIVE); COCAINE METABOLITE URINE NEGATIVE (NEGATIVE); METHADONE URINE NEGATIVE (NEGATIVE); OPIATES URINE NEGATIVE (NEGATIVE); PHENCYCLIDINE URINE NEGATIVE (NEGATIVE)
[2020-11-30 16:26] LABS: ACETAMINOPHEN LEVEL < 2.0 UG/ML (10.0-30.0); ALBUMIN 3.5 GM/DL (3.2-5.2); ALT/SGPT 26 U/L (12-78); BILIRUBIN,DIRECT 0.2 MG/DL (0.0-0.2); BILIRUBIN,TOTAL 0.5 MG/DL (0.2-1.0); BLOOD UREA NITROGEN 22 MG/DL (7-18); CALCIUM LEVEL 9.2 MG/DL (8.5-10.1); CARBON DIOXIDE LEVEL 27 MEQ/L (21-32); CHLORIDE LEVEL 103 MEQ/L (98-107); CREATININE FOR GFR 0.92 MG/DL (0.70-1.30); ETHYL ALCOHOL (ETHANOL) 0.005 % (0.000-0.010); GLOMERULAR FILTRATION RATE > 60.0 (>56); GLUCOSE, FASTING 100 MG/DL (70-100); POTASSIUM SERUM 4.5 MEQ/L (3.5-5.1); SALICYLATE LEVEL < 1.7 MG/DL (5.0-30.0); SODIUM LEVEL 136 MEQ/L (136-145); THYROID STIMULATING HORMONE 0.387 uIU/ML (0.358-3.740); TOTAL PROTEIN 7.8 GM/DL (6.4-8.2)
[2020-11-30 16:44] LABS: RSV AMPLIFICATION NEGATIVE (NEGATIVE)
[2020-11-30] MEDS ORDERED: GABA-282 PO (18:45)
[2020-11-30] MEDS ORDERED: QUET300T2 PO (18:45)
[2020-11-30] MEDS ORDERED: METF850T4 PO (18:45)
[2020-11-30] MEDS ORDERED: TRAZ-252 PO (18:51)
[2020-11-30] MEDS ORDERED: COMMENTS (18:51)
[2020-12-01] MEDS ORDERED: metFORMIN (GLUCOPHAGE) 500MG TAB PO SCH (12:40)
[2020-12-01] MEDS ORDERED: PILL CUTTER 1 EACH XX ONE (13:36)
[2020-12-01] MEDS ORDERED: PILL CUTTER 1 EACH XX PRN (22:00)
[2020-12-01] MEDS: metFORMIN (GLUCOPHAGE) 500MG TAB PO SCH (22:02)
--- NOTE | 2020-12-02 06:27 | ECGEPIP ---
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
[2020-12-02] MEDS ORDERED: TAMSULOSIN 0.4 MG CAP PO SCH (09:00)
[2020-12-02] MEDS ORDERED: LEVEMIR (INSULIN DETEMIR) 1 UNITS/0.01ML SC SCH (09:00)
[2020-12-02] MEDS: metFORMIN (GLUCOPHAGE) 500MG TAB PO SCH (10:18)
[2020-12-02 21:50] VITALS: BP 126/68
== END 2020-12-02 21:53 | disposition home or self-care (01) ==
LOC: M ED 12:18
DX: F20.0 Paranoid schizophrenia (principal); F19.10 Other psychoactive substance abuse, uncomplicated; Z78.1 Physical restraint status; R45.851 Suicidal ideations; Z91.5 Personal history of self-harm; E11.9 Type 2 diabetes mellitus without complications; F17.210 Nicotine dependence, cigarettes, uncomplicated; Z88.8 Allergy status to other drugs, medicaments and biological substances; Z79.899 Other long term (current) drug therapy; Z79.4 Long term (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 of insulin
CPT/HCPCS: 36415; 80048; 80076; 80143; 80307; 82077; 84443; 85027; 87631; 93005; 96372; 99285; J1200; J1630; J2060

== ENCOUNTER 2020-12-13 02:28 | Inpatient (IN) | payer OTHER ==
[2020-12-12] MEDS: traZODone 50 MG TAB PO SCH (21:00)
[~2020-12-13] VITALS: Ht 170.2 cm; Wt 71.6 kg
[~2020-12-13 02:28] MED LIST changes: +COMMENTS; +ERGO500029 PO; +METF850T4 PO; +QUEtiapine FUMARATE 100 MG TAB PO SCH; +TRAZ-252 PO; -VITA50005 PO
[2020-12-13 03:15] LABS: HEMOGLOBIN 11.3 g/dl (13.5-17.5); MEAN CORPUSCULAR HGB CONC 33.2 g/dl (32.0-36.5); MEAN CORPUSCULAR VOLUME 87.2 fl (80.0-96.0); PLATELET COUNT, AUTOMATED 242 10^3/uL (150-450); WHITE BLOOD COUNT 10.5 10^3/uL (4.0-10.0)
[2020-12-13] MEDS ORDERED: IBUPROFEN 600MG TAB PO ONE (03:25)
[2020-12-13 03:39] LABS: AMPHETAMINES LEVEL URINE NEGATIVE (NEGATIVE); BARBITURATES URINE NEGATIVE (NEGATIVE); BENZODIAZEPINES URINE NEGATIVE (NEGATIVE); CANNABINOIDS URINE NEGATIVE (NEGATIVE); COCAINE METABOLITE URINE NEGATIVE (NEGATIVE); METHADONE URINE NEGATIVE (NEGATIVE); OPIATES URINE NEGATIVE (NEGATIVE); PHENCYCLIDINE URINE NEGATIVE (NEGATIVE)
[2020-12-13 04:08] LABS: ACETAMINOPHEN LEVEL < 2.0 UG/ML (10.0-30.0); ALBUMIN 3.5 GM/DL (3.2-5.2); ALT/SGPT 154 U/L (12-78); BILIRUBIN,DIRECT 0.5 MG/DL (0.0-0.2); BILIRUBIN,TOTAL 0.8 MG/DL (0.2-1.0); BLOOD UREA NITROGEN 20 MG/DL (7-18); CALCIUM LEVEL 8.9 MG/DL (8.5-10.1); CARBON DIOXIDE LEVEL 23 MEQ/L (21-32); CHLORIDE LEVEL 100 MEQ/L (98-107); CREATININE FOR GFR 1.09 MG/DL (0.70-1.30); ETHYL ALCOHOL (ETHANOL) < 0.003 % (0.000-0.010); GLOMERULAR FILTRATION RATE > 60.0 (>56); GLUCOSE, FASTING 293 MG/DL (70-100); POTASSIUM SERUM 3.8 MEQ/L (3.5-5.1); SALICYLATE LEVEL < 1.7 MG/DL (5.0-30.0); SODIUM LEVEL 133 MEQ/L (136-145); THYROID STIMULATING HORMONE 0.486 uIU/ML (0.358-3.740); TOTAL PROTEIN 7.7 GM/DL (6.4-8.2)
--- NOTE | 2020-12-13 05:30 | REPVR ---
PROCEDURE INFORMATION: Exam: XR Chest Exam date and time: 12/13/2020 3:36 AM Age: 50 years old Clinical indication: Other: Fever TECHNIQUE: Imaging protocol: XR of the chest. Views: 2 views. COMPARISON: CR Chest, 1 view 11/02/2015 2:12 PM FINDINGS: Lungs: Mild hyperinflation of the lungs. No consolidation. Pleural spaces: Unremarkable. No pleural effusion. No pneumothorax. Heart/Mediastinum: Unremarkable. No cardiomegaly. Bones/joints: Unremarkable. IMPRESSION: Mild hyperinflation of the lungs. No acute findings. Electronically signed by: Jackeline Hay On 12/13/2020 05:29:52 AM
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
[2020-12-13] MEDS ORDERED: MOM 30ML SUSPENSION UDC PO PRN (06:15)
[2020-12-13] MEDS ORDERED: HumaLOG INSULIN (NovoLOG) PER UNIT SC ONE (06:15)
[2020-12-13] MEDS ORDERED: GLUCAGON INJ 1MG VIAL SC PRN (06:15)
[2020-12-13] MEDS ORDERED: DEXTROSE 50% 50 ML SYRINGE IV PRN (06:15)
[2020-12-13] MEDS ORDERED: MAALOX 30 ML SUSP *UDC PO PRN (06:15)
[2020-12-13] MEDS ORDERED: GLUCOSE 4GM CHEW TABLET PO PRN (06:15)
[2020-12-13] MEDS ORDERED: LORazepam 2 MG TAB PO PRN (06:15)
--- NOTE | 2020-12-13 06:58 | REPVR ---
PROCEDURE INFORMATION: Exam: US Abdomen, Limited; Right Upper Quadrant Exam date and time: 12/13/2020 6:42 AM Age: 50 years old Clinical indication: Abdominal pain; Acute; Additional info: Transaminitis w fever TECHNIQUE: Imaging protocol: US abdomen. Real time ultrasound with image documentation. Limited exam focused on the right upper quadrant. COMPARISON: GALLBLADDER US 01/01/2016 8:38 AM FINDINGS: Liver: Normal. No masses. Gallbladder: Normal. No gallstones. There is no gallbladder wall thickening. Common bile duct: Common bile duct is normal measuring 4.1 mm. Pancreas: Visualized pancreas is unremarkable. Right kidney: Right kidney is unremarkable measuring 11.7 cm. Intraperitoneal space: No free fluid. IMPRESSION: Negative exam. Electronically signed by: Jackeline Hay On 12/13/2020 06:57:44 AM
[2020-12-13 07:00] LABS: INR 1.23; PROTHROMBIN TIME 15.8 SECONDS (12.5-14.3)
[2020-12-13 07:01] LABS: PARTIAL THROMBOPLASTIN TIME 27.9 SECONDS (24.2-38.5)
[2020-12-13] MEDS: THIAMINE 100 MG TAB PO SCH ×2 (07:07→08:34)
[2020-12-13] MEDS: NS 1,000 ML IV SCH ×2 (07:07→18:21)
[2020-12-13 07:14] LABS: HEMATOCRIT 33.2 % (42.0-52.0); HEMOGLOBIN 11.1 g/dl (13.5-17.5); MEAN CORPUSCULAR HEMOGLOBIN 29.2 pg (27.0-33.0); MEAN CORPUSCULAR HGB CONC 33.4 g/dl (32.0-36.5); MEAN CORPUSCULAR VOLUME 87.4 fl (80.0-96.0); PLATELET COUNT, AUTOMATED 242 10^3/uL (150-450); WHITE BLOOD COUNT 11.3 10^3/uL (4.0-10.0)
[2020-12-13 07:34] LABS: ERYTHROCYTE SEDIMENTATION RATE 52 mm/hr (0-20)
[2020-12-13 07:49] LABS: EOSINOPHILS 1 % (0-3); LYMPHOCYTES 17 % (16-44); MONOCYTES 2 % (0-5); NEUTROPHILS 74 % (28-66); PLATELET ESTIMATE NORMAL (NORMAL)
[2020-12-13 08:11] LABS: ALBUMIN 3.2 GM/DL (3.2-5.2); ALT/SGPT 162 U/L (12-78); BILIRUBIN,TOTAL 0.9 MG/DL (0.2-1.0); BLOOD UREA NITROGEN 16 MG/DL (7-18); C REACTIVE PROTEIN QUANTITATIV 1.51 MG/DL (0.00-0.30); CALCIUM LEVEL 8.9 MG/DL (8.5-10.1); CARBON DIOXIDE LEVEL 26 MEQ/L (21-32); CHLORIDE LEVEL 106 MEQ/L (98-107); CREATININE FOR GFR 0.83 MG/DL (0.70-1.30); FERRITIN 386 NG/ML (26-388); GLOMERULAR FILTRATION RATE > 60.0 (>56); GLUCOSE, FASTING 176 MG/DL (70-100); PHOSPHORUS LEVEL 3.7 MG/DL (2.5-4.9); SODIUM LEVEL 138 MEQ/L (136-145); TOTAL PROTEIN 7.3 GM/DL (6.4-8.2)
[2020-12-13 08:12] LABS: BILIRUBIN,DIRECT 0.4 MG/DL (0.0-0.2); IRON (FE) 27 UG/DL (65-175); MAGNESIUM LEVEL 2.4 MG/DL (1.8-2.4); PERCENT SATURATION 9.4 % (19.7-50.0); POTASSIUM SERUM 4.7 MEQ/L (3.5-5.1); TOTAL IRON BINDING CAPACITY 287 UG/DL (250-450)
[2020-12-13] MEDS: HumaLOG INSULIN (NovoLOG) PER UNIT SC SCH ×4 (08:33→21:00)
[2020-12-13] MEDS: LEVEMIR (INSULIN DETEMIR) 1 UNITS/0.01ML SC SCH (08:34)
[2020-12-13] MEDS: FOLIC ACID 1 MG TAB PO SCH (08:34)
[2020-12-13] MEDS: MULTIVITAMINS/MINERALS THERAP 1 TAB PO SCH (08:34)
[2020-12-13] MEDS: BENZTROPINE 1 MG TAB PO SCH ×2 (08:34→21:48)
[2020-12-13] MEDS: GABAPENTIN 300 MG CAP PO SCH ×3 (08:34→21:48)
[2020-12-13] MEDS: TAMSULOSIN 0.4 MG CAP PO SCH (08:34)
[2020-12-13 10:13] LABS: VITAMIN B12 LEVEL 826 PG/ML
[2020-12-13 10:23] LABS: HEPATITIS B SURFACE ANTIGEN NEGATIVE (NEGATIVE)
[2020-12-13 10:53] LABS: HEPATITIS A ANTIBODY IGM NEGATIVE (NEGATIVE); HEPATITIS B CORE ANTIBODY IGM NEGATIVE (NEGATIVE)
[2020-12-13 10:55] VITALS: BP 88/38
[2020-12-13 10:56] LABS: HEPATITIS C VIRUS ABY INDEX > 11.0 INDEX (<0.8)
[2020-12-13 11:26] VITALS: BP 98/54
[2020-12-13 12:38] LABS: HIV 1&2 SCREEN CENTAUR NEGATIVE (NEGATIVE)
--- NOTE | 2020-12-13 12:58 | IPNPDOC ---
Date Seen The patient was seen on 12/13/20. Progress Note SUBJECTIVE: Jose L was seen and examined this morning by the hospitalist service while lying in his emergency department bed. He was recently admitted earlier today by the night service and states that he called the police fearing for safety as drug lords were attempting to infiltrate his home. He denies any pain or physical issues at this time. Of relevant note, he denies any visual or auditory hallucinations. Patient reports he has a history of IV drug use when he was younger but states his current illicit drug use consists of smoking cocaine. He also reports a history of prior heavy alcohol use, but now drinks much less. He also smokes approximately 5 cigarettes/day. OBJECTIVE PHYSICAL EXAMINATION: VITAL SIGNS: Please see below. GENERAL: Thin black male lying on his right side flat in ED hospital bed. He is sleeping at the beginning of the exam and appears tired throughout but easily awakened by speech. No acute distress. HEENT: Normocephalic. There is a fluctuant nontender cyst-like structure overlying the right cheekbone area. Noninjected, anicteric sclera. PERRLA. No significant conjunctival pallor. There appears to be a healing laceration over nose bridge. ORAL CAVITY: Moist mucous membranes. No pharyngeal erythema or exudate appreciated. Patient is missing some teeth and there appears to be some dental caries. NECK: Trachea is midline. No lymphadenopathy is appreciated. Supple. CARDIOVASCULAR: Regular rate, regular rhythm. Normal S1, S2. No murmurs or rubs are appreciated. Capillary refill between 2-3 seconds. RESPIRATORY: Slightly decreased tidal volume with symmetric chest expansion. Clear to auscultation bilaterally with no adventitious breath sounds appreciated. Speaking full sentences. Breathing room air. No accessory muscle use. ABDOMINAL: Soft, thin her abdomen. Nontender and nondistended. Negative Fabian sign. The inferior portion of liver is roughly 2 cm inferior to the rib border. No splenomegaly appreciated. No rigidity or guarding appreciated. Hypoactive bowel sounds throughout. EXTREMITIES: Thin extremities. 2+ radial and posterior tibial pulses bilaterally. The skin of bilateral lower extremities and feet is quite dry and chapped but there are no visualized areas of skin breakdown or open wounds. 5/5 muscle strength of both upper and lower extremities bilaterally. There is a palpable linear mass (approximately 2-3 cm in length) overlying the right posterior forearm. Well-healed scar over left posterior forearm. NEUROLOGICAL: He appears tired and is resting throughout the exam but always is arousable to voice stimulus. Responds appropriately to all questions and commands. No gross focal neurologic deficits appreciated. Nondysarthric speech. PSYCHOLOGICAL: Somewhat apathetic mood at times during exam. Affect appears appropriate. LABORATORY DATA, IMAGING STUDIES, MICROBIOLOGY: Please see below. 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 Police found drug paraphernalia within the patient's home and the pa daniel was subsequently brought to the ED. he was admitted primarily for positive SIRS criteria (fever with tachycardia). #Leukocytosis -Etiology unknown at this time -WBC upon admission was 10.5, morning recheck increased slightly to 11.3; left shift is present -ESR elevated 52, CRP mildly elevated at 1.51 -febrile and tachycardia upon presentation; has remained afebrile with controlled rate since -Initial lactic 1.4 -2 initial blood cultures are pending; respiratory viral panel negative; urina lysis unremarkable; chest x-ray relatively unremarkable -Stat transthoracic echocardiogram ordered in the setting of fever with known prior IV drug use, as well as report that ED physician appreciated a heart murmur upon initial presentation -Procalcitonin ordered today #Paranoid schizophrenia -Patient denies any auditory or visual hallucinations -Home haloperidol, benztropine, and quetiapine were continued upon admission; trazodone was initially held due to somnolence -Patient denied both admission and on follow-up examination any suicidal ideations; he does have a history of a suicide attempt reportedly at the age of 14 -Per admitting team's note, patient was showing agitation was placed on one-to-one sitter -We will consider possible psychiatry consultation should patient's clinical status warrant #IDDMII with neuropathy -Patient is on 30 units daily of long-acting (Toujeo) and sliding scale AC short acting insulin at home -Placed on sliding scale insulin upon admission and equivalent home long-acting coverage continued in the form of Levemir -Consistent carb diet with hypoglycemic protocol -Home gabapentin continued upon admission while metformin held #Hepatitis C -Hep C antibody index greater than 11; qualitative RNA pending -Hepatitis panel ordered in the setting of elevated liver enzymes and prior history of IV drug use #Elevated liver enzymes, likely multifactorial -Initial studies: AST 426, ALT 154, alkaline phosphatase 181; repeat studies a few hours later revealed AST 367, ALT 162, alkaline phosphatase 173, GGT 478 -R factor calculated at 1.3 indicating cholecystitis injury pattern -Hepatitis panel and HIV screens ordered in the setting of elevated liver enzymes plus known history of IV drug use -Etiology likely multifactorial including alcoholic liver disease, hepatitis C among others -Right upper quadrant ultrasound essentially unremarkable -Antimitochondrial antibodies ordered to rule out primary biliary cirrhosis #Direct hyperbilirubinemia -Total bilirubin within normal limits with initial direct bilirubin elevated at 0.5, remaining elevated 0.4 on repeat -Direct hyperbilirubinemia is commonly seen in cholecyst attic liver injury patterns which patient has -Continue to follow on repeat lab #Normochromic normocytic anemia -Absolute reticulocyte count calculated at 1.1, with reticulocyte index of 0.75; equates to hypoproliferation in the bone marrow (whenever reticulocyte index is less than 2) -Iron studies ordered showing low serum iron but ferritin and TIBC within normal limits indicating a mixed picture. -Due to hypoproliferation/inappropriate marrow response, further evaluation for nutritional dissidence disease or marrow abnormalities indicated; this can be continued as outpatient -Stool occult ordered #History of alcoholism -Patient reports heavy alcohol use in the past and currently steady use -Elevated liver enzymes (see above) -Placed on CIWA protocol and seizure precautions -Folic acid, thiamine, and multivitamin ordered upon admission -B12 and folate ordered today #Polysubstance abuse history with prior history of intravenous illicit drug use -Initial urine drug screen unremarkable -Patient reports no longer using IV drugs; currently smokes cocaine -HIV and hepatitis screens ordered; hep C was positive on screen today -Patient is a current smoker and smoking cessation counseling was ordered upon admission #BPH -Home tamsulosin continued #DVT prophylaxis: Continue with teds and sequentials that were ordered upon admission Disposition: Pending continued improvement in alertness with possible consideration for psychiatry consultation VS, I&O, 24H, Fishbone Vital Signs/I&O Vital Signs Date Time Temp Pulse Resp B/P (MAP) Pulse Ox O2 Delivery O2 Flow Rate FiO2 12/13/20 11:26 98/54 (69) 12/13/20 10:55 98.3 12/13/20 10:49 73 18 99 Room Air Laboratory Data 24H LABS Laboratory Tests 2 12/13/20 03:01: Urine Color YELLOW, Urine Appearance CLEAR, Urine pH 6.0, Urine Specific [place] 1.027, Urine Protein NEGATIVE, Urine Glucose (UA) 3+H, Urine Ketones NEGATIVE, Urine Blood NEGATIVE, Urine Nitrite NEGATIVE, Urine Bilirubin NEGATIVE, Urine Urobilinogen 2.0H, Urine Leukocyte Esterase NEGATIVE, Urine WBC (Auto) 3, Urine RBC (Auto) 0, Urine Hyaline Casts (Auto) 0, Urine Bacteria (Auto) NEGATIVE, Urine Squamous Epithelial Cells 0, Urine Sperm (Auto) 12/13/20 03:02: Nucleated Red Blood Cells % (auto) 0.0, Anion Gap 10, Glomerular Filtration Rate > 60.0, Calcium Level 8.9, Total Bilirubin 0.8, Direct Bilirubin 0.5H, Aspartate Amino Transf (AST/SGOT) 426H, Alanine Aminotransferase (ALT/SGPT) 154H, Alkaline Phosphatase 181H, Total Protein 7.7, Albumin 3.5, Albumin/Globulin Ratio 0.8, Thyroid Stimulating Hormone (TSH) 0.486, Salicylates Level < 1.7L, Urine Opiates Screen NEGATIVE, Urine Methadone Screen NEGATIVE, Acetaminophen Level < 2.0L, Urine Barbiturates Screen NEGATIVE, Urine Phencyclidine Screen NEGATIVE, Urine Amphetamines Screen NEGATIVE, Urine Benzodiazepines Screen NEGATIVE, Urine Cocaine Metabolite Screen NEGATIVE, Urine Cannabinoids Screen NEGATIVE, Ethyl Alcohol Level < 0.003 12/13/20 06:20: Nucleated Red Blood Cells % (auto) 0.0, Neutrophils (%) (Auto) , Reticulocyte # (auto) 60.1, Neutrophils 74H, Band Neutrophils 6, Lymphocytes (Manual) 17, Monocytes (Manual) 2, Eosinophils (Manual) 1, Platelet Estimate NORMAL, Erythrocyte Sedimentation Rate 52H, Percent Reticulocyte Count 1.6H, Reticulocyte Hemoglobin Equivalent 32.9 12/13/20 06:21: Anion Gap 6L, Glomerular Filtration Rate > 60.0, Calcium Level 8.9, Total Bilirubin 0.9, Direct Bilirubin 0.4H, Aspartate Amino Transf (AST/SGOT) 367H, Alanine Aminotransferase (ALT/SGPT) 162H, Alkaline Phosphatase 173H, Total Protein 7.3, Albumin 3.2, Albumin/Globulin Ratio 0.8, Prothrombin Time 15.8H, Pr othromb Time International Ratio 1.23, Activated Partial Thromboplast Time 27.9, Lactic Acid Level 1.4, Phosphorus Level 3.7, Magnesium Level 2.4, Iron Level 27L, Total Iron Binding Capacity 287, Transferrin % Saturation 9.4L, Ferritin 386, Gamma Glutamyl Transferase 478H, C-Reactive Protein, Quantitative 1.51H, Vitamin B12 Level 826, Folate 15.0, Hepatitis A IgM Antibody NEGATIVE, Hepatitis B Surface Antigen NEGATIVE, Hepatitis B Core IgM Antibody NEGATIVE, Hepatitis C Antibody Index > 11.0H 12/13/20 11:47: Bedside Glucose (Misc Panel) 255H CBC/BMP Laboratory Tests 12/13/20 03:02 12/13/20 06:20 12/13/20 06:21 Microbiology Microbiology 12/13/20 Blood Culture, Received Pending 12/13/20 Blood Culture, Received Pending 12/13/20 Respiratory Virus Panel (PCR) ([facility]) - Final, Complete GME ATTESTATION GME ATTESTATION My faculty preceptor for this patient encounter was physically present during the encounter and was fully available. All aspects of the patient interview, examination, medical decision making process, and medical care plan development were reviewed and approved by the faculty preceptor. The faculty preceptor is aware and concurs with the plan as stated in the body of this note and will attest to such by his/her cosignature. ATTENDING NOTE I, Trey Uriarte, have independently examined this patient and performed my own physical exam, as well as reviewed the documentation and edited where necessary. I have discussed in detail with the resident / student the findings and plan of treatment as documented by the resident / student and edited their note. I agree with their findings and treatment plan and have edited their documentation. I will continue to follow the patient during this hospital stay. CHRISTY MCCABE D.O. Dec 13, 2020 12:58 TREY URIARTE MD Dec 13, 2020 16:08
--- NOTE | 2020-12-13 14:38 | ECHO ---
ECHOCARDIOGRAM DATE OF PROCEDURE: 12/13/2020 Age: 50 Gender: Height: Weight: REFERRING PROVIDER: Dr. Fatoumata Calvo. PATIENT LOCATION: ED-5. REASON FOR THE TESTING: Sepsis. 2D MEASUREMENTS: IVS 1.1 cm LV 4.5 cm LVPW 1.2 cm LA 3.5 cm Aorta 3.7 cm DOPPLER MEASUREMENT Peak velocity across the LVOT 0.9 m/s Mitral E 0.56 Mitral A 0.53 with a ratio of 1.1 2D COMMENTS: 1. Normal left ventricular size, wall thickness, and normal global left ventricular systolic function. The estimated left ventricular systolic ejection fraction is 60 to 65%. 2. Normal left atrium. Normal right atrium and right ventricle. 3. The atrial septal appeared to be normal without evidence of defect or shunt. 4. Mildly dilated aortic root and ascending aorta at 3.7 cm. 5. No pericardial effusion seen. 6. Mildly calcified aortic valve with normal leaflet excursion. Normal mitral valve, tricuspid valve, and pulmonic valve. The proximal pulmonary artery branches were not well visualized. 7. The inferior vena cava subjectively appeared to be normal in size. DOPPLER: It detects trace mitral regurgitation, trace tricuspid regurgitation, and trace pulmonic regurgitation. Pulmonary artery systolic pressure is probably normal. IMPRESSION: 1. Normal global left ventricular systolic function. Not mentioned above, left ventricular diastolic function also was normal. 2. Aortic valve sclerosis without stenosis or aortic regurgitation. 3. Trace mitral regurgitation. 4. Trace tricuspid regurgitation.
[2020-12-13 15:29] VITALS: BP 123/70
[2020-12-13 20:00] VITALS: BP 109/56
[2020-12-13] MEDS: traZODone 50 MG TAB PO SCH (21:00)
[2020-12-13] MEDS ORDERED: QUEtiapine FUMARATE 200 MG TAB PO SCH (21:00)
[2020-12-14 04:00] VITALS: BP 93/52
[2020-12-14] MEDS: NS 1,000 ML IV SCH (05:45)
[2020-12-14 05:53] LABS: HEMATOCRIT 34.4 % (42.0-52.0); HEMOGLOBIN 11.3 g/dl (13.5-17.5); MEAN CORPUSCULAR HEMOGLOBIN 29.3 pg (27.0-33.0); MEAN CORPUSCULAR HGB CONC 32.8 g/dl (32.0-36.5); MEAN CORPUSCULAR VOLUME 89.1 fl (80.0-96.0); PLATELET COUNT, AUTOMATED 225 10^3/uL (150-450); RED BLOOD COUNT 3.86 10^6/uL (4.30-6.10); WHITE BLOOD COUNT 3.8 10^3/uL (4.0-10.0)
[2020-12-14 06:11] LABS: ALBUMIN 2.9 GM/DL (3.2-5.2); ALT/SGPT 185 U/L (12-78); BILIRUBIN,TOTAL 0.5 MG/DL (0.2-1.0); BLOOD UREA NITROGEN 12 MG/DL (7-18); CALCIUM LEVEL 8.5 MG/DL (8.5-10.1); CARBON DIOXIDE LEVEL 27 MEQ/L (21-32); CHLORIDE LEVEL 114 MEQ/L (98-107); CREATININE FOR GFR 0.64 MG/DL (0.70-1.30); GLOMERULAR FILTRATION RATE > 60.0 (>56); GLUCOSE, FASTING 99 MG/DL (70-100); MAGNESIUM LEVEL 2.3 MG/DL (1.8-2.4); POTASSIUM SERUM 4.1 MEQ/L (3.5-5.1); SODIUM LEVEL 144 MEQ/L (136-145); TOTAL PROTEIN 6.6 GM/DL (6.4-8.2)
[2020-12-14 07:46] LABS: ATYPICAL LYMPH 2 % (0-5); EOSINOPHILS 4 % (0-3); LYMPHOCYTES 32 % (16-44); MONOCYTES 20 % (0-5); NEUTROPHILS 42 % (28-66)
[2020-12-14 07:47] LABS: PLATELET ESTIMATE NORMAL (NORMAL)
[2020-12-14 08:00] VITALS: BP 101/66
[2020-12-14] MEDS: LEVEMIR (INSULIN DETEMIR) 1 UNITS/0.01ML SC SCH (08:57)
[2020-12-14] MEDS: BENZTROPINE 1 MG TAB PO SCH ×3 (08:58→22:23)
[2020-12-14] MEDS: HumaLOG INSULIN (NovoLOG) PER UNIT SC SCH ×4 (08:58→22:18)
[2020-12-14] MEDS: MULTIVITAMINS/MINERALS THERAP 1 TAB PO SCH (08:58)
[2020-12-14] MEDS: GABAPENTIN 300 MG CAP PO SCH ×3 (08:58→22:18)
[2020-12-14] MEDS: THIAMINE 100 MG TAB PO SCH ×2 (08:58→22:18)
[2020-12-14] MEDS: FOLIC ACID 1 MG TAB PO SCH (08:58)
[2020-12-14] MEDS: TAMSULOSIN 0.4 MG CAP PO SCH (08:58)
[2020-12-14 12:00] VITALS: BP 99/64
[2020-12-14 12:40] LABS: HEMATOCRIT 35.3 % (42.0-52.0); HEMOGLOBIN 11.3 g/dl (13.5-17.5); MEAN CORPUSCULAR HEMOGLOBIN 28.4 pg (27.0-33.0); MEAN CORPUSCULAR VOLUME 88.7 fl (80.0-96.0); PLATELET COUNT, AUTOMATED 222 10^3/uL (150-450); RED BLOOD COUNT 3.98 10^6/uL (4.30-6.10); WHITE BLOOD COUNT 4.1 10^3/uL (4.0-10.0)
[2020-12-14 13:38] LABS: BASOPHILS 2 % (0-1); EOSINOPHILS 3 % (0-3); LYMPHOCYTES 35 % (16-44); MONOCYTES 12 % (0-5); NEUTROPHILS 48 % (28-66); PLATELET ESTIMATE NORMAL (NORMAL)
[2020-12-14 14:00] VITALS: BP 99/54
[2020-12-14] MEDS ORDERED: ISOVUE-370 76% 100ML VIAL As Ordered ONE (16:28)
--- NOTE | 2020-12-14 16:55 | REP ---
INDICATION: Fever. COMPARISON: 01/01/2016 the latest prior TECHNIQUE: Standard helical technique after the intravenous administration of 100 cc Isovue 370. No oral bowel preparatory contrast was administered prior to the exam. FINDINGS: The liver and spleen are within normal limits. The gallbladder is contracted but otherwise within normal limits. Dense calcifications are seen throughout the pancreas increased from the prior exam. The pancreas is diffusely fatty infiltrated. Intrapancreatic ductal dilatation cannot be ruled out. There is no evidence of free fluid or free air. The bowel loops are noncontrast opacified significantly limiting evaluation of them. There is no evidence of a gross mass or adenopathy. Bone window technique throughout the examination shows no significant change in appearance of the osseous structures. IMPRESSION: Chronic pancreatic changes as described above. There is no evidence of an enhancing pancreatic mass, however, the pancreas appears markedly diffusely fatty infiltrated to such a degree that intrapancreatic ductal dilatation although not definitely seen today cannot be ruled out. Other findings as described above. <Electronically signed by Carlos Claire > 12/14/20 [id number]
--- NOTE | 2020-12-14 17:07 | REP ---
INDICATION: Fever COMPARISON: None TECHNIQUE: Standard helical technique after the intravenous administration of 100 cc Isovue 370. FINDINGS: The mediastinum and pulmonary saurabh are within normal limits. There is no evidence of a mass or adenopathy. There are no pleural or pericardial effusions. The imaged osseous structures are within normal limits. Evaluation of the lung rollins shows curvilinear basilar densities consistent with chronic fibrotic and/or subsegmental atelectatic changes. No abnormal nodules, masses, or opacities are present. FINDINGS: As above findings I do not know why there is a double findings I cannot erased the 2nd findings heading IMPRESSION: CT findings are within normal limits <Electronically signed by Carlos Claire > 12/14/20 [id number]
--- NOTE | 2020-12-14 19:24 | IPNPDOC ---
Date Seen The patient was seen on 12/14/20. Progress Note SUBJECTIVE: Jose L was seen and examined this morning by the hospitalist service while lying in bed. He reports no significant issues overnight. On speaking with nursing they also reported no overnight events. Patient himself has continued to sleep most of the time since being admitted. He is eating and drinking without any issues. He is voiding with no issues and is yet to have a bowel movement since admission. He denies pain of any kind and denies any visual or auditory hallucinations. He also denies any suicidal ideations. Has been conversing appropriately; fully oriented to person / place / time. OBJECTIVE PHYSICAL EXAMINATION: VITAL SIGNS: Please see below. GENERAL: Thin black male lying in bed. He is initially asleep prior to our examination. Easily arousable by voice. No acute distress. Pleasant. HEENT: Normocephalic. A fluctuant nontender cyst-like structure overlying the right cheekbone area remains present. Noninjected, anicteric sclera. PERRLA. No significant conjunctival pallor. Healing laceration over nose bridge. ORAL CAVITY: Moist mucous membranes. No pharyngeal erythema or exudate appreciated. Some teeth missing, with dental caries present. NECK: Trachea is midline. No lymphadenopathy is appreciated. Supple. CARDIOVASCULAR: Borderline bradycardic rate, regular rhythm. Normal S1, S2. No murmurs or rubs are appreciated. RESPIRATORY: Clear to auscultation bilaterally with no adventitious breath sounds appreciated. Mildly decreased tidal volume speaking full sentences. Breathing room air. No accessory muscle use. ABDOMINAL: Soft, thinner abdomen. Nontender, nondistended. Negative Fabian sign. No rigidity or guarding appreciated. Normoactive bowel sounds throughout. EXTREMITIES: Thin extremities. 2+ radial pulses bilaterally. Skin of bilateral lower extremities and feet is quite dry and chapped, but no visualized areas of skin breakdown or open wounds. 5/5 muscle strength of both upper and lower extremities bilaterally. Palpable linear mass (approximately 2-3 cm in length) overlying the right posterior forearm. Well-healed scar over left posterior forearm. Prominent veins on bilateral upper extremities. NEUROLOGICAL: Tired appearing but responds appropriate all questions and commands and maintain slightly better eye contact and focus throughout today's examination versus yesterday. No gross focal neurologic deficits appreciated. Nondysarthric speech. Oriented x3 PSYCHOLOGICAL: Pleasant mood. Affect appears appropriate. LABORATORY DATA, IMAGING STUDIES, MICROBIOLOGY: Please see below. 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 Police found drug paraphernalia within the patient's home and the patient was subsequently brought to the ED. He was admitted primarily for positive SIRS criteria (fever with tachycardia). #Leukopenia -WBC this morning 3.8, while patient initially had leukocytosis yesterday with a left shift (WBC 11.3) - -representing significant swing. Patient was afebrile throughout the overnight. -Repeat CBC ordered for noon -Etiology of initial leukocytosis and now leukopenia is unknown -ESR elevated at 52, CRP mildly elevated at 1.51 on 12/13 labs -febrile and tachycardia upon presentation; has remained afebrile with controlled rate since -Initial lactic 1.4 -1/2 initial blood cultures preliminarily positive from 12/13; repeat cultures ordered on 12/14 to assess for bacteremia versus contaminant -respiratory viral panel negative; urinalysis unremarkable; chest x-ray relatively unremarkable -Stat transthoracic echocardiogram ordered on 12/13 in the setting of fever with known prior IV drug use, as well as report that ED physician appreciated a heart murmur upon initial presentation. -Impression of echo showed EF 60-65% with trace tricuspid and mitral insufficiency, aortic valve sclerosis, normal ventricular diastolic dysfunction and left ventricular systolic function with likely normal pulmonary artery pressure but no mention of any abnormalities on the valves. -Procalcitonin pending #Gram-positive cocci in clusters bacteremia versus contaminant -One of the 2 initial blood cultures ordered yesterday returned with preliminary result of gram-positive cocci in clusters. The other blood culture no growth after 24 hours on preliminary result. -Repeat blood cultures ordered today after identifying initial 1 out of 2 positive -Procalcitonin pending -Leukocytosis on presentation with leukopenia on hospital day 2 #Possible episode of psychosis with history of paranoid schizophrenia -Patient has been quite tired but easily arousable and has exhibited appropriate mood and affect since admission. He continues to deny any auditory or visual hallucinations as well as any suicidal ideations. -No reported overnight events -1:1 sitter stopped today; sitter had been ordered upon admission for pt agitation per H&P -Based on clinical exam and patient's status since admission, psychiatric evaluation not warranted at this time -Home haloperidol, benztropine, and quetiapine were continued upon admission. Home trazodone was at first held in the setting of somnolence and then subsequently restarted. -Due to continued tiredness, home Seroquel and haloperidol doses decreased by half this afternoon trazodone now held. have a history of a suicide attempt reportedly at the age of 14 - Currently denies any suicidal / homicidal ideation / No psychosis currently noted / Responds appropriately #IDDMII with neuropathy -Patient is on 30 units daily of long-acting (Toujeo) and sliding scale AC short acting insulin at home -Placed on sliding scale insulin upon admission and equivalent home long-acting coverage continued in the form of Levemir -Consistent carb diet with hypoglycemic protocol -Home gabapentin continued upon admission while metformin held #Hepatitis C -Hep C antibody index greater than 11; qualitative RNA pending -Counseled the patient today regarding the importance of follow-up with infectious disease upon discharge as hep C is curative with oral medication. -Hepatitis panel ordered in the setting of elevated liver enzymes and prior history of IV drug use #Elevated liver enzymes, likely multifactorial -Liver enzymes continue to remain elevated but steadily decreasing on repeat lab values. -For reference, initial studies: AST 426, ALT 154, alkaline phosphatase 181; repeat studies a few hours later revealed AST 367, ALT 162, alkaline phosphatase 173, GGT 478 -R factor calculated at 1.3, indicating cholecystitis injury pattern -HCV positive; HBV negative and HIV neg -Etiology likely multifactorial including alcoholic liver disease, hepatitis C among others -Right upper quadrant ultrasound essentially unremarkable -Antimitochondrial antibodies negative (ordered to rule out PBC) #Direct hyperbilirubinemia, resolved -initial direct bilirubin on 12/13 elevated at 0.5, and remained elevated at 0.4 on repeat -Direct hyperbilirubinemia is commonly seen in cholestatic liver injury patterns which patient has -Continue to follow on repeat lab #Normochromic normocytic anemia -Hemoglobin appears to be stable, right around 11 -Absolute reticulocyte count calculated at 1.1, with reticulocyte index of 0.75; equates to hypoproliferation in the bone marrow (whenever reticulocyte index is less than 2) -Iron studies ordered showing low serum iron but ferritin and TIBC within normal limits indicating a mixed picture. -Due to hypoproliferation/inappropriate marrow response, further evaluation for nutritional dissidence disease or marrow abnormalities indicated; this can be continued as outpatient -Stool occult ordered #Hypotension -Patient has been running normotensive to borderline hypotensive since admission -In the setting of somnolence and softer pressures, home [employer] depressing medications (haloperidol, Seroquel) dosages decreased by half today; trazodone held #History of alcoholism -Patient reports heavy alcohol use in the past and currently steady use -Elevated liver enzymes (see above) -Placed on CIWA protocol and seizure precautions -Folic acid, thiamine, and multivitamin ordered upon admission -B12 and folate were WNL #Polysubstance abuse history with prior history of intravenous illicit drug use -Initial urine drug screen unremarkable -Patient reports no longer using IV drugs; currently smokes cocaine -HCV positive; HIV negative, HPV negative -Patient is a current smoker and smoking cessation counseling was ordered upon admission #Social concerns -Home safety eval ordered today #BPH -Home tamsulosin continued #DVT prophylaxis: Continue with teds and sequentials that were ordered upon admission Disposition: Pending repeat blood cultures to rule out bacteremia versus contaminant; possible discharge in the next day or 2. VS, I&O, 24H, [facility] Vital Signs/I&O Vital Signs Date Time Temp Pulse Resp B/P (MAP) Pulse Ox O2 Delivery O2 Flow Rate FiO2 12/14/20 14:00 69 99/54 12/14/20 12:00 100.2 18 100 Room Air I&O- Last 24 Hours up to 6 AM 12/14/20 06:00 Intake Total 660 ml Balance 660 ml Laboratory Data 24H LABS Laboratory Tests 2 12/13/20 22:00: Bedside Glucose (Misc Panel) 62L 12/14/20 04:58: Neutrophils (%) (Auto) , Nucleated Red Blood Cells % (auto) 0.0, Neutrophils 42, Lymphocytes (Manual) 32, Monocytes (Manual) 20H, Eosinophils (Manual) 4H, Atypical Lymphocytes 2, Platelet Estimate NORMAL, Anion Gap 3L, Glomerular Saurabh tration Rate > 60.0, Calcium Level 8.5, Magnesium Level 2.3, Total Bilirubin 0.5, Aspartate Amino Transf (AST/SGOT) 280H, Alanine Aminotransferase (ALT/SGPT) 185H, Alkaline Phosphatase 164H, Total Protein 6.6, Albumin 2.9L, Albumin/Globulin Ratio 0.8, Procalcitonin 17.47 12/14/20 12:08: Bedside Glucose (Misc Panel) 191H 12/14/20 12:20: Neutrophils (%) (Auto) , Nucleated Red Blood Cells % (auto) 0.0, Neutrophils 48, Lymphocytes (Manual) 35, Monocytes (Manual) 12H, Eosinophils (Manual) 3, Platelet Estimate NORMAL, Basophils (Manual) 2H 12/14/20 17:08: Lactic Acid Level 2.0 CBC/BMP Laboratory Tests 12/14/20 04:58 12/14/20 12:20 Microbiology Microbiology 12/14/20 Blood Culture, Received Pending 12/13/20 Blood Culture - Preliminary, Resulted 12/13/20 Blood Culture - Preliminary, Resulted No growth after 24 hours . All specim... 12/13/20 Respiratory Virus Panel (PCR) (MAUREEN) - Final, Complete GME ATTESTATION GME ATTESTATION My faculty preceptor for this patient encounter was physically present during the encounter and was fully available. All aspects of the patient interview, examination, medical decision making process, and medical care plan development were reviewed and approved by the faculty preceptor. The faculty preceptor is aware and concurs with the plan as stated in the body of this note and will attest to such by his/her cosignature. ATTENDING NOTE I, Trey Uriarte, have independently examined this patient and performed my own physical exam, as well as reviewed the documentation and edited where necessary. I have discussed in detail with the resident / student the findings and plan of treatment as documented by the resident / student and edited their note. I agree with their findings and treatment plan and have edited their documentation. I will continue to follow the patient during this hospital stay. CHRISTY MCCABE D.O. Dec 14, 2020 19:24 TREY URIARTE MD Dec 15, 2020 08:25
[2020-12-14 20:00] VITALS: BP 98/58
[2020-12-14] MEDS ORDERED: QUEtiapine FUMARATE 100 MG TAB PO SCH (21:00)
[2020-12-14] MEDS ORDERED: haloperidoL 5 MG TAB PO SCH (21:00)
--- NOTE | 2020-12-14 21:41 | IPNPDOC ---
Text Note Date of Service The patient was seen on 12/14/20. NOTE TIME OF SERVICE 940PM Mr Lam wanted to leave AMA there is no one to take care of his cats. I convinced him to stay with the caveat that we would ask our social workers to make arrangements to ensure that his cats are fed. I will place a PFS consult and let know. VS,Tristan, I+O VS, Tristan, I+O Laboratory Tests 12/14/20 04:58 12/14/20 12:20 Vital Signs Date Time Temp Pulse Resp B/P (MAP) Pulse Ox O2 Delivery O2 Flow Rate FiO2 12/14/20 20:00 99.2 66 18 98/58 (71) 99 Room Air I&O- Last 24 Hours up to 6 AM 12/14/20 06:00 Intake Total 660 ml Balance 660 ml SERVANDO FARIA MD Dec 14, 2020 21:41
[2020-12-14 22:00] VITALS: BP 98/58
[2020-12-15 04:00] VITALS: BP 88/58
[2020-12-15] MEDS ORDERED: NS 1,000 ML IV ONE (04:55)
[2020-12-15 05:46] LABS: HEMATOCRIT 34.9 % (42.0-52.0); HEMOGLOBIN 11.2 g/dl (13.5-17.5); MEAN CORPUSCULAR HEMOGLOBIN 28.3 pg (27.0-33.0); MEAN CORPUSCULAR HGB CONC 32.1 g/dl (32.0-36.5); MEAN CORPUSCULAR VOLUME 88.1 fl (80.0-96.0); PLATELET COUNT, AUTOMATED 219 10^3/uL (150-450); RED BLOOD COUNT 3.96 10^6/uL (4.30-6.10); WHITE BLOOD COUNT 5.1 10^3/uL (4.0-10.0)
[2020-12-15 06:15] LABS: ALBUMIN 2.7 GM/DL (3.2-5.2); ALT/SGPT 143 U/L (12-78); BILIRUBIN,TOTAL 0.3 MG/DL (0.2-1.0); BLOOD UREA NITROGEN 11 MG/DL (7-18); C REACTIVE PROTEIN QUANTITATIV 0.79 MG/DL (0.00-0.30); CALCIUM LEVEL 8.1 MG/DL (8.5-10.1); CARBON DIOXIDE LEVEL 26 MEQ/L (21-32); CHLORIDE LEVEL 110 MEQ/L (98-107); CREATININE FOR GFR 0.71 MG/DL (0.70-1.30); GLOMERULAR FILTRATION RATE > 60.0 (>56); GLUCOSE, FASTING 231 MG/DL (70-100); MAGNESIUM LEVEL 1.9 MG/DL (1.8-2.4); POTASSIUM SERUM 4.2 MEQ/L (3.5-5.1); SODIUM LEVEL 140 MEQ/L (136-145); TOTAL PROTEIN 6.3 GM/DL (6.4-8.2)
[2020-12-15 06:24] LABS: ATYPICAL LYMPH 5 % (0-5); EOSINOPHILS 2 % (0-3); LYMPHOCYTES 44 % (16-44); MONOCYTES 13 % (0-5); NEUTROPHILS 36 % (28-66); PLATELET ESTIMATE NORMAL (NORMAL); POLYCHROMASIA 1+
[2020-12-15 06:25] LABS: ERYTHROCYTE SEDIMENTATION RATE 34 mm/hr (0-20)
[2020-12-15 08:00] VITALS: BP 106/66
[2020-12-15 08:02] VITALS: BP 106/56
--- NOTE | 2020-12-15 09:08 | DS.PDOC ---
Discharge Summary General Date of Admission Dec 13, 2020 at 06:14 Date of Discharge 12/15/2020 Discharge Summary PROCEDURES PERFORMED DURING STAY: [None]. ADMITTING DIAGNOSES / DISCHARGE DIAGNOSES: Leukocytosis / Leukopenia - possibly 2/2 infectious etiology Gram positive cocci in clusters s/p Psychosis - possibly 2/2 drug induced IDDDM2 with Neuropathy Normocytic anemia Hypotension - Possibly 2/2 medications, possibly 2/2 infection Hx of Alcohol dependence Transaminitis - possibly 2/2 hepatitis C Polysubstance abuse Nicotine dependence BPH DVT prophylaxis COMPLICATIONS/CHIEF COMPLAINT: Evidence of infection/paranoid thoughts/suspected drug abuse HISTORY OF PRESENT ILLNESS: Patient is a 50-year-old male with a PMHx of IDDM2, Neuropathy, Paranoid schizophrenia, Hx of Suicidal ideation (age 14), Polysubstance abuse, who presented to the emergency room on 12/13 after calling police and reported drug dealers were remain on his door. Upon arrival police at found drugs on his table and subsequently brought patient to the emergency room for further evaluation. Patient had evidence of fever and tachycardia, suspected infection and was admitted to the hospital service for further evaluation and treatment. This morning patient was seen and examined at the bedside. Patient was adamant that he will be leaving AGAINST MEDICAL ADVICE. Patient is fully oriented to person, place and time. Was able to focus had insight about what had brought him to the hospital. Denies any suicidal or homicidal ideation. Patient reports that his evening. Has been uneventful. However, he wants to go home to take care of his cats. He does not want any further workup. Patient will follow up his primary care provider and psychiatrist within the next 5 days. HOSPITAL COURSE: Leukocytosis / Leukopenia - possibly 2/2 infectious etiology - Initially patient presented with fevers and tachycardia - Leukocytosis followed by Leukopenia; now is within normal limits - UA unremarkable - PCT elevated - Blood cultures see below - Imaging has been negative - Patient is adamant that he will not stay for any further workup and will be leaving AGAINST MEDICAL ADVICE. Patient has been advised of the risks of leaving and signed AMA paperwork - Will have outpatient follow-up with primary care provider Gram positive cocci in clusters - 1 of 2 bottles positive on 12/13/2020 - this is likely a contaminant; however given his fevers of unclear source repeat blood cultures were obtained - Blood cultures 12/14: Pending - No antibiotics have been started - See above s/p Psychosis - possibly 2/2 drug induced - Patient was reportedly brought in because of paranoid behavior - No further episodes of psychosis with paranoid thoughts have occurred since admission - Patient is not having any suicidal or homicidal ideation - Is fully oriented to person, place and time, responding to questions appropriately can focus and has insight - s/p sitter - Will c/w Seroquel, Haldol, Benztropine - Will have outpatient follow up with Psychiatry IDDDM2 with Neuropathy - c/w ISS and Levemir - c/w Gabapentin Normochromic normocytic anemia - Hg has remained stable - Will have outpatient follow up with PCP Hypotension - Possibly 2/2 medications, possibly 2/2 infection - Patient remains asymptomatic - Septic workup has been negative (see above) - s/p IV fluids - BP improved Hx of Alcohol dependence - No evidence of alcohol withdrawal. Currently - c/w Thiamine / Folate / MVI Transaminitis - Transaminitis improving - Hepatitis profile positive for Hepatitis C - Will have outpatient follow-up with primary care provider Polysubstance abuse - Hx of IV drug abuse - UDS negative Nicotine dependence - Advised smoking cessation BPH - c/w Tamsulosin DVT prophylaxis - c/w TEDs/Sequentials DISCHARGE MEDICATIONS: Please see below. ALLERGIES: Please see below. PHYSICAL EXAMINATION ON DISCHARGE: Vitals (See below) General: Lying in bed, appears comfortable, AAOx3 and knows the president, conversing appropriately HEENT: NC, AT CVS: RRR, +S1S2 Lungs: Fair air entry b/l, no evidence of wheezing, rales or rhonchi Abdomen: Soft, ND, NT Extremities: No evidence of edema, - Calf tenderness LABORATORY DATA: Please see below. IMAGING: CXR 12/13: Mild hyperinflation of the lungs. No acute findings. Liver US 12/13: Negative exam. CT chest 12/14: CT findings are within normal limits CT abdomen / pelvis 12/14: Chronic pancreatic changes as described above. There is no evidence of an enhancing pancreatic mass, however, the pancreas appears markedly diffusely fatty infiltrated to such a degree that intrapancreatic ductal dilatation although not definitely seen today cannot be ruled out. Other findings as described above. ACTIVITY: [As tolerated]. DISCHARGE PLAN: Follow-up with primary care provider in psychiatry within the next 5 days Remain compliant with treatment plan and medications Return to the ER if you experience any problems DISPOSITION: Left AGAINST MEDICAL ADVICE DISCHARGE CONDITION: [Stable]. TIME SPENT ON DISCHARGE: 35 minutes. Vital Signs/I&Os Vital Signs Date Time Temp Pulse Resp B/P (MAP) Pulse Ox O2 Delivery O2 Flow Rate FiO2 12/15/20 08:02 106/56 (73) 12/15/20 08:00 98.7 70 18 98 Room Air I&O- Last 24 Hours up to 6 AM 12/15/20 05:59 Intake Total 3640 ml Output Total 2325 ml Balance 1315 ml Laboratory Data Labs 24H Laboratory Tests 2 12/14/20 12:08: Bedside Glucose (Misc Panel) 191H 12/14/20 12:20: Neutrophils (%) (Auto) , Nucleated Red Blood Cells % (auto) 0.0, Neutrophils 48, Lymphocytes (Manual) 35, Monocytes (Manual) 12H, Eosinophils (Manual) 3, Basophils (Manual) 2H, Platelet Estimate NORMAL 12/14/20 17:08: Lactic Acid Level 2.0 12/15/20 05:26: Neutrophils (%) (Auto) , Nucleated Red Blood Cells % (auto) 0.0, Neutrophils 36, Lymphocytes (Manual) 44, Monocytes (Manual) 13H, Eosinophils (Manual) 2, Platelet Estimate NORMAL, Atypical Lymphocytes 5, Polychromasia 1+, Erythrocyte Sedimentation Rate 34H, Anion Gap 4L, Glomerular Filtration Rate > 60.0, Calcium Level 8.1L, Magnesium Level 1.9, Total Bilirubin 0.3, Aspartate Amino Transf (AST/SGOT) 136H, Alanine Aminotransferase (ALT/SGPT) 143H, Alkaline Phosphatase 153H, C-Reactive Protein, Quantitative 0.79H, Total Protein 6.3L, Albumin 2.7L, Albumin/Globulin Ratio 0.8 CBC/BMP Laboratory Tests 12/14/20 12:20 12/15/20 05:26 FSBS Laboratory Tests Test 12/14/20 12:08 Range/Units Bedside Glucose (Misc Panel) 191 70-105 MG/DL Microbiology Microbiology 12/14/20 Blood Culture, Received Pending 12/13/20 Blood Culture - Preliminary, Resulted 12/13/20 Blood Culture - Preliminary, Resulted No Growth after 48 hours. All Specime... 12/13/20 Respiratory Virus Panel (PCR) (MAUREEN) - Final, Complete Discharge Medications Scheduled Benztropine Mesylate (Benztropine Mesylate) 1 Mg Tablet, 1 MG PO BID, (Reported) Gabapentin (Gabapentin) 300 Mg Capsule, 300 MG PO TID, (Reported) Haloperidol (Haloperidol) 10 Mg Tablet, 10 MG PO TID, (Reported) Insulin Glargine,Hum.rec.anlog (Toujeo Solostar) 300 Unit/1 Ml Insuln.pen, 30 UNIT SC DAILY, (Reported) Insulin Lispro (Admelog) 100 Unit/1 Ml Vial, 1 DOSE SC AC, (Reported) PER SLIDING SCALE Metformin HCl (Metformin HCl) 850 Mg Tablet, 850 MG PO BID, (Reported) Quetiapine Fumarate (Quetiapine Fumarate) 300 Mg Tablet, 600 MG PO QHS, (Reported) Tamsulosin Hcl (Tamsulosin HCl) 0.4 Mg Capsule, 0.4 MG PO DAILY, (Reported) Trazodone HCl (Trazodone HCl) 50 Mg Tablet, 50 MG PO QHS, (Reported) Allergies Coded Allergies: risperidone (Verified Allergy, Unknown, 11/30/20) BRANDON URIARTE MD Dec 15, 2020 09:08
[2020-12-17 08:07] LABS: ANTI DOUBLE STRAND-DNA AB <1 IU/mL (0-9); ANTINUCLEAR ANTIBODIES DIRECT Positive (Negative); RNP ANTIBODIES 1.6 AI (0.0-0.9); SJOGREN'S ANTI SS-A <0.2 AI (0.0-0.9); SJOGREN'S ANTI SS-B <0.2 AI (0.0-0.9); SMITH ANTIBODIES <0.2 AI (0.0-0.9)
== END 2020-12-15 09:34 | disposition left against medical advice (07) | DRG 663 ==
LOC: M ED 02:28 → M ED INP 06:14 → ENRESERV 08:56 → M PCU 11:10
PROVIDERS: ADMIT Internal Medicine; ATTEND Internal Medicine
DX: D72.829 Elevated white blood cell count, unspecified (principal); E11.40 Type 2 diabetes mellitus with diabetic neuropathy, unspecified; I95.2 Hypotension due to drugs; F20.0 Paranoid schizophrenia; E11.65 Type 2 diabetes mellitus with hyperglycemia; E55.9 Vitamin D deficiency, unspecified; B19.20 Unspecified viral hepatitis C without hepatic coma; M19.90 Unspecified osteoarthritis, unspecified site; N40.0 Benign prostatic hyperplasia without lower urinary tract symptoms; D72.819 Decreased white blood cell count, unspecified; D64.9 Anemia, unspecified; R74.01 Elevation of levels of liver transaminase levels; F17.200 Nicotine dependence, unspecified, uncomplicated; F10.20 Alcohol dependence, uncomplicated; F14.10 Cocaine abuse, uncomplicated; Z79.4 Long term (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 of insulin; Z79.899 Other long term (current) drug therapy; Z88.8 Allergy status to other drugs, medicaments and biological substances; Z91.5 Personal history of self-harm

== ENCOUNTER 2020-12-28 04:28 | Emergency (ER) | payer OTHER ==
[~2020-12-28] VITALS: Ht 165.1 cm; Wt 75.0 kg
[~2020-12-28 04:28] MED LIST changes: -QUEtiapine FUMARATE 100 MG TAB PO SCH
[2020-12-28 04:29] VITALS: BP 115/71
== END 2020-12-28 05:22 | disposition left against medical advice (07) ==
LOC: M ED 04:28
DX: Z53.21 Procedure and treatment not carried out due to patient leaving prior to being seen by health care provider (principal)

== ENCOUNTER 2021-01-04 21:10 | Emergency (ER) | payer OTHER ==
[~2021-01-04] VITALS: Ht 170.2 cm; Wt 73.6 kg
[2021-01-04] MEDS ORDERED: ADME100I SC (21:22)
[2021-01-04 22:39] VITALS: BP 136/80
== END 2021-01-04 22:40 | disposition home or self-care (01) ==
LOC: M ED 21:10
DX: Z76.0 Encounter for issue of repeat prescription (principal); F20.9 Schizophrenia, unspecified; E11.9 Type 2 diabetes mellitus without complications; N40.0 Benign prostatic hyperplasia without lower urinary tract symptoms; F19.10 Other psychoactive substance abuse, uncomplicated; F17.200 Nicotine dependence, unspecified, uncomplicated; Z88.8 Allergy status to other drugs, medicaments and biological substances; Z79.899 Other long term (current) drug therapy; Z79.4 Long term (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 of insulin

== ENCOUNTER → 2021-01-23 | Outpatient (CLI) | payer OTHER ==
[2021-01-23 10:35] LABS: BASO % 0.3 % (0.0-1.0); EOS # 0.1 10^3/uL (0.0-0.5); EOS % 0.9 % (0.0-3.0); HEMOGLOBIN 12.6 g/dl (13.5-17.5); LYMPH # 1.4 10^3/uL (1.5-5.0); LYMPH % 19.9 % (24.0-44.0); MEAN CORPUSCULAR HEMOGLOBIN 28.6 pg (27.0-33.0); MEAN CORPUSCULAR HGB CONC 32.3 g/dl (32.0-36.5); MEAN CORPUSCULAR VOLUME 88.4 fl (80.0-96.0); MONO # 0.6 10^3/uL (0.0-0.8); MONO % 8.3 % (2.0-8.0); NEUTROPHILS # 4.9 10^3/uL (1.5-8.5); NEUTROPHILS % 70.2 % (36.0-66.0); PLATELET COUNT, AUTOMATED 243 10^3/uL (150-450); RED BLOOD COUNT 4.41 10^6/uL (4.30-6.10)
[2021-01-23 11:07] LABS: ALBUMIN 3.7 GM/DL (3.2-5.2); ALT/SGPT 19 U/L (12-78); BILIRUBIN,TOTAL 0.3 MG/DL (0.2-1.0); BLOOD UREA NITROGEN 12 MG/DL (7-18); CALCIUM LEVEL 9.3 MG/DL (8.5-10.1); CARBON DIOXIDE LEVEL 24 MEQ/L (21-32); CHLORIDE LEVEL 101 MEQ/L (98-107); CHOLESTEROL LEVEL 178 MG/DL (<200); CHOLESTEROL RISK RATIO 2.617 (<5); CREATININE FOR GFR 0.88 MG/DL (0.70-1.30); FREE T4 0.81 NG/DL (0.76-1.46); GLOMERULAR FILTRATION RATE > 60.0 (>56); GLUCOSE, FASTING 354 MG/DL (70-100); HDL CHOLESTEROL 68 MG/DL (>40); LDL CHOLESTEROL 77 MG/DL (<100); NON-HDL-C 110 MG/DL; POTASSIUM SERUM 4.1 MEQ/L (3.5-5.1); SODIUM LEVEL 134 MEQ/L (136-145); THYROID STIMULATING HORMONE 0.947 uIU/ML (0.358-3.740); TOTAL PROTEIN 8.2 GM/DL (6.4-8.2); TRIGLYCERIDES LEVEL 164 MG/DL (<150)
[2021-01-23 11:13] LABS: ERYTHROCYTE SEDIMENTATION RATE 35 mm/hr (0-20)
[2021-01-23 11:18] LABS: TOTAL 25(OH) VITAMIN D 14.6 NG/ML (30.0-100.0)
[2021-01-23 12:35] LABS: HEMOGLOBIN A1c 10.6 %
[2021-01-25 00:07] LABS: PSA TOTAL 2.6 ng/mL (0.0-4.0)
== END ==
LOC: M LAB 09:35
PROVIDERS: ATTEND Nurse Practitioner Family
DX: M25.551 Pain in right hip (principal); F10.20 Alcohol dependence, uncomplicated; F17.200 Nicotine dependence, unspecified, uncomplicated; F20.9 Schizophrenia, unspecified

== ENCOUNTER 2021-03-01 16:27 | Emergency (ER) | payer OTHER ==
[~2021-03-01] VITALS: Ht 170.2 cm; Wt 73.6 kg
[~2021-03-01 16:27] MED LIST changes: -QUET400T; -QUET400T PO; +QUET400T2; +QUET400T2 PO
[2021-03-01] MEDS ORDERED: HALOPERIDOL 5MG/ML VIAL (J1630 PER 1) As Ordered ONE (17:25)
[2021-03-01] MEDS ORDERED: diphenhydrAMINE 50MG/ML VIAL (J1200) As Ordered ONE (17:25)
[2021-03-01] MEDS ORDERED: LORazepam 2 MG/ML VIAL As Ordered ONE ×2 (17:26→22:13)
[2021-03-01 17:55] LABS: HEMATOCRIT 44.9 % (42.0-52.0); HEMOGLOBIN 14.6 g/dl (13.5-17.5); MEAN CORPUSCULAR HEMOGLOBIN 28.4 pg (27.0-33.0); MEAN CORPUSCULAR HGB CONC 32.5 g/dl (32.0-36.5); MEAN CORPUSCULAR VOLUME 87.4 fl (80.0-96.0); PLATELET COUNT, AUTOMATED 339 10^3/uL (150-450); RED BLOOD COUNT 5.14 10^6/uL (4.30-6.10); WHITE BLOOD COUNT 9.5 10^3/uL (4.0-10.0)
[2021-03-01 18:28] LABS: ACETAMINOPHEN LEVEL < 2.0 UG/ML (10.0-30.0); ALBUMIN 4.5 GM/DL (3.2-5.2); ALT/SGPT 22 U/L (12-78); BILIRUBIN,DIRECT 0.2 MG/DL (0.0-0.2); BILIRUBIN,TOTAL 0.7 MG/DL (0.2-1.0); BLOOD UREA NITROGEN 20 MG/DL (7-18); CALCIUM LEVEL 9.7 MG/DL (8.5-10.1); CARBON DIOXIDE LEVEL 22 MEQ/L (21-32); CHLORIDE LEVEL 98 MEQ/L (98-107); ETHYL ALCOHOL (ETHANOL) 0.004 % (0.000-0.010); GLOMERULAR FILTRATION RATE > 60.0 (>56); GLUCOSE, FASTING 187 MG/DL (70-100); POTASSIUM SERUM 4.3 MEQ/L (3.5-5.1); SALICYLATE LEVEL < 1.7 MG/DL (5.0-30.0); SODIUM LEVEL 132 MEQ/L (136-145); TOTAL PROTEIN 9.3 GM/DL (6.4-8.2)
[2021-03-01] MEDS ORDERED: LORazepam 2 MG/ML VIAL IM STA (22:09)
[2021-03-01] MEDS ORDERED: HALOPERIDOL 5MG/ML VIAL (J1630 PER 1) IM STA (22:09)
[2021-03-01] MEDS ORDERED: diphenhydrAMINE 50MG/ML VIAL (J1200) IM ONE (22:10)
[2021-03-02] MEDS ORDERED: METF500T13 PO (07:52)
[2021-03-02] MEDS ORDERED: QUET300T2 PO (07:52)
[2021-03-02] MEDS ORDERED: CLON0.5T2 PO (07:52)
[2021-03-02] MEDS ORDERED: BACL10TA2 PO (07:52)
[2021-03-02] MEDS ORDERED: TAMS1CAP17 PO (07:52)
[2021-03-02 12:12] LABS: AMPHETAMINES LEVEL URINE POSITIVE (NEGATIVE); BARBITURATES URINE NEGATIVE (NEGATIVE); BENZODIAZEPINES URINE NEGATIVE (NEGATIVE); CANNABINOIDS URINE NEGATIVE (NEGATIVE); COCAINE METABOLITE URINE NEGATIVE (NEGATIVE); METHADONE URINE NEGATIVE (NEGATIVE); OPIATES URINE NEGATIVE (NEGATIVE); PHENCYCLIDINE URINE NEGATIVE (NEGATIVE)
[2021-03-02 13:50] LABS: RSV AMPLIFICATION NEGATIVE (NEGATIVE)
[2021-03-02] MEDS ORDERED: metFORMIN (GLUCOPHAGE) 500MG TAB PO ONE (15:30)
[2021-03-02] MEDS ORDERED: GLUCAGON INJ 1MG VIAL SC PRN (15:40)
[2021-03-02] MEDS ORDERED: GLUCOSE 4GM CHEW TABLET PO PRN (15:40)
[2021-03-02] MEDS ORDERED: HumaLOG INSULIN (NovoLOG) PER UNIT SC SCH ×2 (15:40→18:00)
[2021-03-02] MEDS ORDERED: DEXTROSE 50% 50 ML SYRINGE IV PRN (15:40)
[2021-03-02 16:25] VITALS: BP 101/61
--- NOTE | 2021-03-04 16:34 | ECGEPIP ---
[facility] - ED Test Date: 2021-03-01 Pat Name: RAJI FISHER Department: Room: - Gender: Male Access Coordinator: SAMIRA : 1970 Requested By: AMNA Macedo Order Number: [id number] Reading MD: Cady Hallman Measurements Intervals [place] Rate: 104 P: 62 NH: 178 QRS: 59 QRSD: 84 T: 49 QT: 354 QTc: 465 Interpretive Statements Sinus tachycardia NSTTW abnormalities increased rate 12/01/20 Electronically Signed on 03-04-2021 16:34:28 EDT by Cady Hallman
== END 2021-03-02 16:27 ==
LOC: EDBD 16:27 → M ED 16:27
DX: F22 Delusional disorders (principal); R00.0 Tachycardia, unspecified; E11.9 Type 2 diabetes mellitus without complications; I10 Essential (primary) hypertension; F17.210 Nicotine dependence, cigarettes, uncomplicated
CPT/HCPCS: 36415; 80048; 80076; 80143; 80307; 81001; 82077; 84443; 85027; 87631; 93005; 96372; 99285; J1200; J1630; J2060

== ENCOUNTER → 2021-03-15 | Outpatient (CLI) | payer OTHER ==
[~2021-03-15] MED LIST changes: +BACL10TA2 PO; +CLON0.5T2 PO; +MED REC COMMENT; +TRUL10IN PO
== END ==
LOC: M PLAIMG 13:37
PROVIDERS: ATTEND Pain Medicine Interventional Pain Medicine
DX: M16.0 Bilateral primary osteoarthritis of hip (principal)

== ENCOUNTER 2021-05-03 20:10 | Emergency (ER) | payer OTHER ==
[~2021-05-03] VITALS: Ht 172.7 cm; Wt 84.0 kg
[~2021-05-03 20:10] MED LIST changes: -MED REC COMMENT; -TRUL10IN PO
--- OUTSIDE RECORDS SUMMARY | 2021-05-03 20:17 | CCD ---
Author Organization Unknown Address [address] [place] [address] Phone [phone] Care Team Providers Care Bucket Operator Name Role Phone GINETTE BIRCH 3 [phone] Allergies Code Code System Name Reaction Severity Status Onset NKDA Medications Name Status Start Date Stop Date acetaminophen 300 mg-codeine 30 mg table t TAKE ONE TABLET BY MOUTH THREE TIMES DAILY NEEDED FOR SEVERE pain MAX DAILY DOSE THREE TABLETS Completed 02/05/2021 Admelog U-100 Insulin lispro 100 unit/mL subcutaneous solution INJECT 4-12 UNITS SUBCUTANEOUSLY DIRECTED with meals per sliding scale less tHan 150 = no insulin. 151 - 200 = 4 201 - 250 = 6 251 - 300 = 8 301 - 350 = 10 351 - 400 =12 Active Not available amoxicillin 500 mg capsule Completed 02/05 baclofen 10 mg tablet Take 1 tablet twice a day by oral route as needed. Active Not available BD Alcohol Swabs USE DIRECTED TO CLEAN SKIN Active Not avail able BD Insulin Syringe Ultra-Fine 1 mL 30 ga uge x 1/2" USE DIRECTED SUBCUTANEOUSLY TO INJECT INSULIN FIVE TIMES DAILY Active Not available BD Ultra-Fine Mini Pen Needle 31 gauge x /16" USE DIRECTED ONCE DAILY Active Not availabl e benztropine 1 mg tablet TAKE ONE TABLET BY MOUTH TWICE DAILY Active No t available celecoxib 200 mg capsule Completed 021 cephalexin 500 mg capsule Completed 2020 clonazepam 0.5 mg tablet TAKE ONE TABLET BY MOUTH TWICE DAILY MAX DAILY DOSE TWO TABLETS Active Not available gabapentin 300 mg capsule TAKE TWO CAPSULES BY MOUTH THREE TIMES DAILY Active Not available gabapentin 400 mg capsule TAKE ONE CAPSULE BY MOUTH FOUR TIMES DAILY Completed 02/05/2021 haloperidol 10 mg tablet TAKE ONE TABLET BY MOUTH THREE TIMES DAILY Active Not available Humalog KwikPen (U-100) Insulin 100 unit/mL subcutaneous Active Not available insulin syrg mis 0.5/31g Completed 021 insulin syrg mis 1ml/29g Completed 021 Jardiance 25 mg tablet Completed meloxicam 15 mg tablet Completed metformin 500 mg tablet Active Not avai lable metformin 850 mg tablet TAKE ONE TABLET BY MOUTH TWICE DAILY with meals Completed 02/05/2021 naltrexone 50 mg tablet Completed 02/06/20 21 nicotine (polacrilex) 2 mg buccal lozenge Active Not available nicotine (polacrilex) 2 mg gum CHEW ONE PIECE BY MOUTH EVERY 2 HOURS NEEDED Completed 02/05/2021 OneTouch Delica Plus Lancet 30 gauge Active Not available OneTouch Delica Plus Lancet 33 gauge USE DIRECTED THREE TIMES DAILY Active Not a vailable OneTouch Ultra Blue Test Strip Completed 02/05/2021 OneTouch Ultra Test strips USE DIRECTED 3 TO 4 TIMES PER DAY Active No t available OneTouch Ultra2 Meter USE DIRECTED TO TEST BLOOD SUGAR THREE TIMES DAILY Completed 02/05/2021 OneTouch Ultra2 Meter kit Completed 2020 pen needles mis [id number] Completed 021 quetiapine 200 mg tablet TAKE ONE TABLET BY MOUTH EVERY EVENING Active Not available quetiapine 300 mg tablet TAKE TWO TABLETS BY MOUTH AT BEDTIME Active No t available quetiapine 400 mg tablet TAKE ONE TABLET BY MOUTH EVERY EVENING Completed 02/05/2021 risperidone 4 mg tablet Completed 02/06/20 21 Steglatro 15 mg tablet Completed Steglatro 5 mg tablet Completed 02/05/2021 tamsulosin 0.4 mg capsule TAKE ONE CAPSULE BY MOUTH ONCE DAILY Active No t available tizanidine 2 mg tablet Completed tizanidine 4 mg tablet TAKE ONE TABLET BY MOUTH THREE TIMES DAILY NEEDED Active Not available Hermilo Schroeder U-300 Insulin 300 unit/m L (1.5 mL) subcutaneous pen INJECT 30 UNITS SUBCUTANEOUSLY ONCE DAILY Active Not available tramadol 50 mg tablet Completed 02/05/2021 trazodone 100 mg tablet TAKE TWO TABLETS BY MOUTH AT BEDTIME Completed trazodone 50 mg tablet TAKE ONE TABLET BY MOUTH AT BEDTIME NEEDED Completed 02/05/2021 Trulicity 0.75 mg/0.5 mL subcutaneous pen injector Active Not available Vitamin D2 1,250 mcg (50,000 unit) capsu le TAKE ONE CAPSULE BY MOUTH EVERY WEEK Active No t available Vitamin D3 50 mcg (2,000 unit) capsule Completed 02/05/2021 Problems None recorded. Procedures Date Name Performed by 02/05/2021 MRI, Hip, W/o Contrast [facility] [address] [place] [phone] (Work Place) 02/05/2021 MRI, Hip, W/o Contrast [facility] [address] [place] [phone] (Work Place) 02/05/2021 MRI, Lumbar Spine, W/o Contrast [facility] [address] [place] [phone] (Work Place) 02/28/2021 MRI, Lumbar Spine, W/o Contrast [facility] [address] [place] [address] (Work Place) Results Lab Results None recorded. Past Encounters 04/11/2021 Pain of Left Hip Joint; Pain in Right Hip Joint; Lumbosacral Spondylosis without Myelopathy; Lumbar Radiculopathy; Greater Trochanteric Pain Syndrome of Left Lower Limb; Greater Trochanteric Pain Syndrome of Right Lower Limb; Inflammation of Sacroiliac Joint; Myofascial Pain Luz Dallas FLOOR COVERINGS SALESPERSON: [address] [address], [place] [address], Ph. 02/28/2021 Pain of Left Hip Joint; Pain in Right Hip Joint; Lumbosacral Spondylosis without Myelopathy; Lumbar Radiculopathy; Greater Trochanteric Pain Syndrome of Left Lower Limb; Greater Trochanteric Pain Syndrome of Right Lower Limb; Inflammation of Sacroiliac Joint; Myofascial Pain Luz Dallas FLOOR COVERINGS SALESPERSON: [id number] [facility], [facility] [place] [address], Ph. 02/05/2021 Pain of Left Hip Joint; Pain in Right Hip Joint; Lumbosacral Spondylosis without Myelopathy; Lumbar Radiculopathy; Greater Trochanteric Pain Syndrome of Left Lower Limb; Greater Trochanteric Pain Syndrome of Right Lower Limb; Inflammation of Sacroiliac Joint; Myofascial Pain Pipo Lara MD: [address], [address], [place] [address], Ph. Social History Tobacco Smoking Status Light Tobacco Smoker (1 pack per week ) Notes: 3 cigars per day Vaccine List None recorded. Plan of Care Reminders Provider Appointments None recorded. Lab None recorded. Referral None recorded. Procedures None recorded. Surgeries None recorded. Imaging None recorded. Vitals 04/11/2021 03:45PM FOLLOW-UP Height Blood Pressure 5 ft 6 in 110/82 mm[Hg] 02/28/2021 02:15PM FOLLOW-UP Height Blood Pressure 5 ft 6 in 124/79 mm[Hg] 02/05/2021 09:00AM NEW PATIENT Height Weight BMI Blood Pressure 5 ft 6 in 167.6 lbs 27.1 kg/m2 112/74 mm[Hg]
--- OUTSIDE RECORDS SUMMARY | 2021-05-03 20:17 | CCD ---
Author Author Jose L Dunaway Organization Unknown Address [address] [place] [address] Phone Care Team Providers Care Salon Supervisor Name Role Phone Daylin Dunaway PCP Allergies, Adverse Reactions, Alerts No Data in Section Problem List Concept Problem Description Status Start Date Created Date Resolv ed Date Snomed Code F20.0 Paranoid schizophrenia Active 04/15/2021 F10.20 Alcohol Use Disorder, Moderate Active 08/05/2018 08/05/19 19 Medications Rx Norm Medication Route Route Concept Start Date Stop Date Dosage Orion quency Duration Formula Strength Dosage Form Dosage Form Code Dosage Description Medication Id Account Npid Author First Name Author Last Name Taxonomy Code Taxonomy Desc Phone Number [phone] Klonopin by mouth [id number] 04/01/2021 04/16/2021 twice a day 15 0.5 mg tablet [id number] Ebony Subramanian [id number] Nurse Stephanie sultana [phone] [id number] quetiapine by mouth [id number] 04/02/2021 05/02/2021 at bedtime 30 300 mg tablet [id number] [id number] Ebony Subramanian [id number] Nurse Stephanie sultana [phone] [id number] benztropine by mouth [id number] 04/02/2021 06/01/2021 twice a day 30 1 mg tablet 74080 [id number] [id number] Ebony Subramanian [id number] Nurse Stephanie sultana [phone] [id number] haloperidol by mouth [id number] 04/02/2021 06/01/2021 three times a day 30 10 mg tablet 71211 [id number] [id number] Ebony Subramanian [id number] Nurse Practitioner [phone] [id number] gabapentin by mouth [id number] 04/02/2021 06/01/2021 three times a day 30 300 mg capsule 72688 [id number] [id number] Ebony Subramanian [id number] Nurse Practitioner [phone] Social History Social History Element Description Concept Effective Date Smoking Status Unknown if ever smoked [id number] Immunizations No Data in Section Vital Signs No Data in Section Procedures Date Concept Id Description Targeted Site Concept Targeted Site Concept Type 04/15/2021 60338 Extended Individual Psychotherapy - 45 min CPT Patient has no history of implantable de vices Encounters Encounter Start Date End Date Encounter Type Description Diagnosis Di agnosis Desc Location Author First Name Author Last Name Npid Taxonomy Cod e Taxonomy Desc Phone Number Location Addr1 Location Addr2 Location [facility] Location [facility] Location [facility] [id number] 04/15/2021 04/15/2021 27402 Extended Individual Psych otherapy - 45 min F20.0 Paranoid schizophrenia [facility] Girma Mao [phone] [id number] Binding Cutter Synthetic Cloth [id number] [address] [address] Plan of Treatment No Data in Section Lab Results No Data in Section Instructions No Data in Section Insurance Providers Insurance Id Policy Effective Date Policy Thru Date Company N su [id number] 2017 [id number]
--- OUTSIDE RECORDS SUMMARY | 2021-05-03 20:17 | CCD ---
Author Organization Unknown Address [address] [place] [address] Phone [phone] Care Team Providers Care Cnc Operator Programmer Name Role Phone GINETTE BIRCH 3 [phone] Allergies Code Code System Name Reaction Severity [...] capsule Completed 02/05 baclofen 10 mg tablet TAKE ONE TABLET BY MOUTH TWICE DAILY NEEDED Active Not available BD Alcohol Swabs USE DIRECTED TO CLEAN SKIN Active Not avail able BD Insulin Syringe Ultra-Fine 1 mL 30 ga uge x 1/2" USE DIRECTED SUBCUTANEOUSLY TO INJECT INSULIN FIVE TIMES DAILY Active Not available BD Ultra-Fine Mini Pen Needle 31 gauge x 3/16" USE DIRECTED ONCE DAILY Active Not availabl e benztropine 1 mg tablet TAKE ONE TABLET BY MOUTH TWICE DAILY Active No t available celecoxib 200 mg capsule Completed cephalexin 500 mg capsule Completed 2020 clonazepam [...] Not available insulin syrg mis 0.5/31g Completed insulin syrg mis 1ml/29g Completed Jardiance 25 mg tablet Completed meloxicam 15 [...] BLOOD SUGAR THREE TIMES DAILY Completed 02/05/2021 Boxstar MediaTouch Ultra2 Meter kit Completed 2020 pen needles mis [id number] Completed 021 quetiapine 200 mg tablet TAKE [...] Completed 02/05/2021 Trulicity 0.75 mg/0.5 mL subcutaneous pe n injector INJECT ONE SYRINGE SUBCUTANEOUSLY ONCE EVERY WEEK Active Not available Vitamin D2 1,250 mcg (50,000 unit) capsu le TAKE ONE CAPSULE BY MOUTH EVERY WEEK Active No t available Vitamin D3 50 mcg (2,000 unit) capsule Completed 02/05/2021 Problems None recorded. Procedures Date Name Performed by 02/05/2021 MRI, Hip, W/o Contrast [facility] [address] [place] [phone] (Work Place) 02/05/2021 MRI, Hip, W/o Contrast [facility] [address] [place] [phone] (Work Place) 02/05/2021 MRI, Lumbar Spine, W/o Contrast [facility] Dept [address] [place] [phone] (Work Place) 02/28/2021 MRI, Lumbar Spine, W/o Contrast [facility] Dept [address] [place] [address] [phone] (Work Place) Results Lab Results None recorded. Past Encounters 04/22/2021 Pre-surgery Testing; Viral Screening Pipo Lara MD: [id number] [facility] [address], [place] [address], Ph. [phone] 04/11/2021 Pain of Left Hip Joint; Pain in Right Hip Joint; Lumbosacral Spondylosis without Myelopathy; Lumbar Radiculopathy; Greater Trochanteric Pain Syndrome of Left Lower Limb; Greater Trochanteric Pain Syndrome of Right Lower Limb; Inflammation of Sacroiliac Joint; Myofascial Pain Luz Dallas BROACH OPERATOR: [address] [facility] [address], [place] [address], Ph. 02/28/2021 Pain of Left Hip Joint; Pain in Right Hip Joint; Lumbosacral Spondylosis without Myelopathy; Lumbar Radiculopathy; Greater Trochanteric Pain Syndrome of Left Lower Limb; Greater Trochanteric Pain Syndrome of Right Lower Limb; Inflammation of Sacroiliac Joint; Myofascial Pain uLz Dallas BROACH OPERATOR: [address] [facility] [address], [place] [address], Ph. 02/05/2021 Pain of Left Hip Joint; Pain in Right Hip Joint; Lumbosacral Spondylosis without Myelopathy; Lumbar Radiculopathy; Greater Trochanteric Pain Syndrome of Left Lower Limb; Greater Trochanteric Pain Syndrome of Right Lower Limb; Inflammation of Sacroiliac Joint; Myofascial Pain Pipo Lara MD: [address] [facility] [address], [place] [address], Ph. Social History Tobacco Smoking Status Light [...]
--- OUTSIDE RECORDS SUMMARY | 2021-05-03 20:17 | CCD ---
Author Organization Unknown Address [address] [place] [address] Phone [phone] Care Team Providers Care Carbon Lamp Cleaner Name Role Phone GINETTE BIRCH 3 [phone] Allergies Code Code System Name Reaction Severity [...] capsule Completed 2020 clonazepam 0.5 mg tablet Active Not jo ilable gabapentin 300 mg capsule TAKE TWO CAPSULES [...] Completed metformin 500 mg tablet Active Not avkiki lable metformin 850 mg tablet TAKE ONE [...] BLOOD SUGAR THREE TIMES DAILY Completed 02/05/2021 FlywheelTouch Ultra2 Meter kit Completed 2020 pen needles mis [id number] Completed 021 quetiapine 200 mg tablet TAKE [...] Performed by 02/05/2021 MRI, Hip, W/o Contrast [facility] [address] [place] [phone] (Work Place) 02/05/2021 MRI, Hip, W/o Contrast [facility] [address] [place] [phone] (Work Place) 02/05/2021 MRI, Lumbar Spine, W/o Contrast [facility] [address] [place] [address] [phone] (Work Place) 02/28/2021 MRI, Lumbar Spine, W/o Contrast [facility] [address] [place] [address] [phone] (Work Place) Results Lab Results Date Name Specimen Result Interpretation Description Value Range Status Address 04/22/2021 [facility] Pdf Report NOS No observation recorded. [facility] Cov[facility]: [address] [facility] 04/22/2021 SARS CoV 2 RNA (COVID-19), QL, floral specialist-PCR, Respirat ory Specimen NOS Normal Sars-cov-2 negative negative Final [facility]: [address] [facility] Past Encounters 04/25/2021 Pain in Right Hip Joint; Pain of Left Hip Joint; Lumbosacral Spondylosis without Myelopathy; Lumbar Radiculopathy; Greater Trochanteric Pain Syndrome of Left Lower Limb; Greater Trochanteric Pain Syndrome of Right Lower Limb; Inflammation of Sacroiliac Joint; Myofascial Pain Pipo Lara MD: [id number] [facility] [address], [place] [address], Ph. 04/22/2021 Pre-surgery Testing; Viral Screening Pipo Lara MD: [id number] [facility] [address], [place] [address], Ph. [phone] 04/11/2021 Pain of Left Hip Joint; Pain in Right Hip Joint; Lumbosacral Spondylosis without Myelopathy; Lumbar Radiculopathy; Greater Trochanteric Pain Syndrome of Left Lower Limb; Greater Trochanteric Pain Syndrome of Right Lower Limb; Inflammation of Sacroiliac Joint; Myofascial Pain Luz [place] INDUSTRIAL ECONOMICS TEACHER: [id number] [facility] [address], [facility] [place] [address], Ph. 02/28/2021 Pain of Left Hip Joint; Pain in Right Hip Joint; Lumbosacral Spondylosis without Myelopathy; Lumbar Radiculopathy; Greater Trochanteric Pain Syndrome of Left Lower Limb; Greater Trochanteric Pain Syndrome of Right Lower Limb; Inflammation of Sacroiliac Joint; Myofascial Pain Luz [place] INDUSTRIAL ECONOMICS TEACHER: [id number] [facility] [address], [place] [address], Ph. 02/05/2021 Pain of Left Hip Joint; Pain in Right Hip Joint; Lumbosacral Spondylosis without Myelopathy; Lumbar Radiculopathy; Greater Trochanteric Pain Syndrome of Left Lower Limb; Greater Trochanteric Pain Syndrome of Right Lower Limb; Inflammation of Sacroiliac Joint; Myofascial Pain Pipo Lara MD: [address] [address], [facility] [place] [address], Ph. Social History Tobacco Smoking Status Light [...]
--- OUTSIDE RECORDS SUMMARY | 2021-05-03 20:17 | CCD ---
Author Author Jose L Dunaway Organization Unknown Address [address] [address] Phone Care Team Providers Care Baker Test Name Role Phone EmelynDaylin moseley PCP Allergies, Adverse Reactions, Alerts No Data in Section Problem List Concept Problem Description Status Start Date Created Date Resolv ed Date Snomed Code F20.0 Paranoid schizophrenia Active 03/21/2021 F10.20 Alcohol Use Disorder, Moderate Active 08/05/2018 08/05/19 19 Medications Rx Norm Medication Route Route Concept Start Date Stop Date Dosage Orion quency Duration Formula Strength Dosage Form Dosage Form Code Dosage Description Medication Id Account Npid Author First Name Author Last Name Taxonomy Code Taxonomy Desc Phone Number [phone] clonazepam by mouth [id number] 03/08/2021 03/23/2021 twice a day 15 0.5 mg tablet [phone] Tio Mares [id number] Nurse Pr actitioner [phone] Social History Social History Element Description Concept Effective Date Smoking Status Unknown if ever smoked [id number] Immunizations No Data in Section Vital Signs No Data in Section Procedures Date Concept Id Description Targeted Site Concept Targeted Site Concept Type 03/19/2021 18144 Brief Individual Psychotherapy - 30 min CPT Patient has no history of implantable de vices Encounters Encounter Start Date End Date Encounter Type Description Diagnosis Di agnosis Desc Location Author First Name Author Last Name Npid Taxonomy Cod e Taxonomy Desc Phone Number Location Addr1 Location Addr2 Location [facility] Location [facility] Location [facility] [id number] 03/19/2021 03/19/2021 09855 Brief Individual Psychoth erapy - 30 min F20.0 Paranoid schizophrenia [facility] Emelyn Mao [phone] [id number] Physics And Astronomy Professor [phone] [address] [address] Plan of Treatment No Data in Section Lab Results No Data in Section Instructions No Data in Section Insurance Providers Insurance Id Policy Effective Date Policy Thru Date Company N su [id number] [address]
--- OUTSIDE RECORDS SUMMARY | 2021-05-03 20:18 | CCD ---
Author Organization Unknown Address [address] [place] [address] Phone [phone] Care Team Providers Care Support Teacher Name Role Phone Sanjuana Kunz Unavailable Unavailable Allergies Code Code System Name Reaction Severity Status Onset NKDA Medications Name Status Start Date Stop Date acetaminophen 300 mg-codeine 30 mg tablet Completed 03/15/2021 Admelog U-100 Insulin lispro 100 unit/mL subcutaneous solution INJECT 4-12 UNITS SUBCUTANEOUSLY DIRECTED with meals per sliding scaleless diamond 150 = no insulin. 151 - 200 = 4201 - 250 = 6251 - 300 = 8301 - 350 = 82121 - 400 =12 Active Not available Alcohol Prep Pads cleanse skin prior to blood sugar testings and prior to insulin injections Active Not available baclofen 10 mg tablet TAKE ONE TABLET BY MOUTH TWICE DAILY NEEDED Active Not available BD Insulin Syringe Ultra-Fine 1 mL 30 ga uge x 1/2" use as directed to inject insulin five times a day ud Active Not available BD Ultra-Fine Mini Pen Needle 31 gauge x 3/16" USE DIRECTED ONCE DAILY Active Not availabl e BD Ultra-Fine Short Pen Needle 31 gauge x 5/16" USE DIRECTED ONCE DAILY Active Not availabl e benztropine 1 mg tablet TAKE ONE TABLET BY MOUTH TWICE DAILY Active No t available clonazepam 0.5 mg tablet TAKE ONE TABLET BY MOUTH TWICE DAILY MAX DAILY DOSE TWO TABLETS Active Not available gabapentin 300 mg capsule TAKE TWO CAPSULES BY MOUTH THREE TIMES DAILY Active Not available gabapentin 400 mg capsule TAKE ONE CAPSULE BY MOUTH FOUR TIMES DAILY Completed 01/10/2021 haloperidol 10 mg tablet TAKE ONE TABLET BY MOUTH THREE TIMES DAILY Active Not available hydrocodone 5 mg-acetaminophen 325 mg ta blet TAKE ONE TABLET BY MOUTH EVERY SIX HOURS NEEDED FOR PAIN MAX DAILY DOSE FOUR TABLETS Completed 06/13/2020 ibuprofen 800 mg tablet TAKE ONE TABLET BY MOUTH EVERY SIX HOURS NEEDED FOR PAIN Completed 03/15/2021 levofloxacin 500 mg tablet TAKE ONE TABLET BY MOUTH ONCE DAILY Completed meloxicam 15 mg tablet TAKE ONE TABLET BY MOUTH ONCE DAILY Completed metformin 500 mg tablet Active Not avai lable metformin 850 mg tablet TAKE ONE TABLET BY MOUTH TWICE DAILY with meals Completed 03/15/2021 nicotine (polacrilex) [address] ONE LOZENGE INSIDE CHEEK EVERY 2 HOURS NEEDED FOR SMOKING CESSATION Active Not available nicotine (polacrilex) 2 mg gum CHEW ONE PIECE BY MOUTH EVERY 2 HOURS NEEDED Completed 01/10/2021 OneTouch Delica Plus Lancet 33 gauge USE DIRECTED THREE TIMES DAILY Active Not a vailable OneTouch Ultra Blue Test Strip USE DIRECTED THREE TIMES DAILY NEEDED MAX PER DAY THREE STRIPS Active Not available OneTouch Ultra Test strips USE DIRECTED THREE to four TIMES DAILY NEEDED MDD 4 strips Active Not available OneTouch Ultra2 Meter USE DIRECTED TO TEST BLOOD SUGAR THREE TIMES DAILY Active Not available quetiapine 200 mg tablet TAKE ONE TABLET BY MOUTH EVERY EVENING Completed 03/15/2021 quetiapine 300 mg tablet TAKE TWO TABLETS BY MOUTH AT BEDTIME Active No t available quetiapine 400 mg tablet TAKE ONE TABLET BY MOUTH EVERY EVENING Active Not available Steglatro 5 mg tablet TAKE ONE TABLET BY MOUTH ONCE DAILY Completed tamsulosin 0.4 mg capsule TAKE ONE CAPSULE BY MOUTH ONCE DAILY Active No t available tizanidine 4 mg tablet TAKE ONE TABLET BY MOUTH THREE TIMES DAILY NEEDED Active Not available Touvolodymyr DacostaoStar U-300 Insulin 300 unit/m L (1.5 mL) subcutaneous pen INJECT 30 UNITS SUBCUTANEOUSLY ONCE DAILY Active Not available trazodone 100 mg tablet TAKE TWO TABLETS BY MOUTH AT BEDTIME Active No t available trazodone 50 mg tablet TAKE ONE TABLET BY MOUTH AT BEDTIME NEEDED Completed 01/10/2021 Trulicity 0.75 mg/0.5 mL subcutaneous pe n injector Inject 0.5 mL every week by subcutaneous route. Active Not available Vitamin D2 1,250 mcg (50,000 unit) capsu le take one capsule by mouth weekly Active Not av ailable Problems Name Status Onset Date Source Viral Hepatitis C Active 12/11/2015 History Type II Diabetes Mellitus Uncontrolled Active 6 History Schizophrenia Active 12/11/2015 History Generalized Anxiety Disorder Active 12/11/2015 His tory Alcohol Dependence Active 12/11/2015 History Tobacco User Active 12/11/2015 History Depressive Disorder Active 12/11/[address] Concept Unknown 12/11/2015 History Evaluation Finding Active 12/11/2015 History Tobacco Use and Exposure - Finding Active 12/11/2015 History Dental Caries on Smooth Surface Penetrating into Pulp Active 02/27/2016 History Vitamin D Deficiency Active 03/14/2016 History Bursitis of Hip Active 03/14/2016 History Pancytopenia Active 03/26/2016 History Pain in Right Hip Joint Active 05/23/2016 History Complete Edentulism Due to Caries Active 08/03/2017 History Simple Obesity Active 10/15/2017 History Body Mass Index 30+ - Obesity Active 10/15/2017 Hi story Procedure Unknown 12/02/2017 History Cellulitis of Finger of Right Hand Active 02/19/2018 History Clinical Finding Unknown 05/31/2018 History 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 07/30/2018 History Drug Administration Observations Active 12/09/[address] Concept Active 12/09/2018 History 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 01/23/2021 CBC W/ Auto Diff Normal White Blood Count 7.0 10 4.0-10.0 10 [facility]: 0 [facility] Normal Red Blood Count 4.41 10 4.30-6.10 10 Final [facility]: 0 [facility] Low Hemoglobin 12.6 g/dL 13.5-17.5 g/dL Final [facility]: 0 [facility] Low Hematocrit 39.0 % 42.0-52.0 % [facility]: 0 [facility] Normal Mean Corpuscular Volume 88.4 fL 80.0 -96.0 fL [facility]: 0 [facility] Normal Mean Corpuscular Hemoglobin 28.6 pg 27.0-33.0 pg Final [facility]: 830 [facility] Normal Mean Corpuscular HGB Conc 32.3 g/dL 32.0-36.5 g/dL Final [facility]: 830 [facility] Normal Red Cell Distribution Width 14.1 % 1 1.5-14.5 % [facility]: [address] [place] [address] Normal Platelet Count, Automated 243 10 150 -450 10 [facility]: 830 [facility] High Neutrophils % 70.2 % 36.0-66.0 % [facility]: 830 [facility] Low Lymph % 19.9 % 24.0-44.0 % Final [facility]: 830 [facility] High [place] % 8.3 % 2.0-8.0 % Final [facility]: [address] [place] [address] Normal Eos % 0.9 % 0.0-3.0 % [facility]: 830 [facility] Normal Baso % 0.3 % 0.0-1.0 % [facility]: 0 [facility] Normal Immature Granulocyte % 0.4 % 0-3.0 % [facility]: [address] [place] [address] Normal Nucleated Red Blood Cell % 0.0 % 0- 0 % [facility]: 830 [facility] Normal Neutrophils # 4.9 10 1.5-8.[address] [facility]: 830 [facility] Low Lymph # 1.4 10 1.5-5.0 10 [facility]: 830 [facility] Normal [place] # 0.6 10 0.0-0.8 10 [facility]: 0 [facility] Normal Eos # 0.1 10 0.0-0.5 10 [facility]: 830 [facility] Normal Baso # 0.0 10 0.0-0.2 10 [facility]: 830 [facility] 01/23/2021 ESR (Erythrocyte Sedimentation Rate), Blood Hig h Erythrocyte Sedimentation Rate 35 mm/HR 0-20 mm/HR [facility]: 830 [facility] 01/23/2021 CMP, Serum or Plasma High Glucose, Fastin g 354 mg/dL 70-100 mg/dL [facility]: 83 0 [facility] Normal Blood Urea Nitrogen 12 mg/dL 7-18 mg /dL [facility]: 830 [facility] Normal Creatinine for GFR 0.88 mg/dL 0.70-1 .30 mg/dL [facility]: 0 [facility] Normal Glomerular Filtration Rate > 60.0 >5 6 [facility]: 830 [facility] Low Sodium Level 134 mEq/L 136-145 mEq/L [facility]: 830 [facility] Normal Potassium Serum 4.1 mEq/L 3.5-5.1 mE q/L [facility]: 830 [facility] Normal Chloride Level 101 mEq/L 98-107 mEq/ L [facility]: 0 [facility] Normal Carbon Dioxide Level 24 mEq/L 21-32 mEq/L [facility]: 830 [facility] Normal Anion Gap 9 mEq/L 8-16 mEq/L [facility]: 830 [facility] Normal Calcium Level 9.3 mg/dL 8.5-10.1 mg/ dL [facility]: 830 [facility] Normal AST/SGOT 13 U/L 7-37 U/L [facility]: 830 [facility] Normal ALT/SGPT 19 U/L 12-78 U/L [facility]: 830 [facility] Normal Alkaline Phosphatase 79 U/L 45-117 U /L [facility]: 830 [facility] Normal Bilirubin,total 0.3 mg/dL 0.2-1.0 mg /dL [facility]: 830 [facility] Normal Total Protein 8.2 gm/dL 6.4-8.2 gm/d L [facility]: 830 [facility] Normal Albumin 3.7 gm/dL 3.2-5.2 gm/dL Mavis l [facility]: 830 [facility] Normal Albumin/globulin Ratio 0.8 [facility]: 830 [facility] 01/23/2021 Lipid Panel, Blood High Triglycerides Lev el 164 mg/dL <150 mg/dL Final [facility]: 83 0 [facility] Normal Cholesterol Level 178 mg/dL <200 mg/ dL [facility]: 830 [facility] Normal HDL Cholesterol 68 mg/dL >40 mg/dL F [facility]: 830 [facility] Normal LDL Cholesterol 77 mg/dL <100 mg/dL [facility]: 830 [facility] Normal Non-hdl-c 110 mg/dL [facility]: 830 [facility] Normal Cholesterol Risk Ratio 2.617 <5 [facility]: 830 [facility] 01/23/2021 TSH + Free T4, Serum Normal Thyroid Stimulating Hormone 0.947 uIU/mL 0.358-3.740 uIU/mL [facility] nter: 830 [facility] Normal Free T4 0.81 NG/dL 0.76-1.46 NG/dL F [facility]: 830 [facility] 01/23/2021 Vitamin D, 25-Hydroxy, Total, Serum Low Total 25(Oh) Vitamin D 14.6 NG/mL 30.0-100.0 NG/mL [facility]: 830 [facility] 01/23/2021 HbA1C (Hemoglobin a1C), Blood Normal Hemogl obin a1C 10.6 % [facility]: 830 [facility] High Estimated Average Glucose 258 mg/dL 60-110 mg/dL [facility]: 830 [facility] 01/23/2021 PSA, Total + Free, Serum or Plasma Normal P SA Total 2.6 NG/mL 0.0-4.0 NG/mL Final [facility]: 83 0 [facility] Normal PSA Comment . Final [facility]: 830 [facility] 09/01/2020 Glucose, Fingerstick, Blood Whole blood High Bedside Glucose 139 mg/dL 70-105 mg/dL Final [facility]: 830 [facility] 06/13/2020 CMP, Serum or Plasma Blood venous High Glu cose, Fasting 142 mg/dL 70-100 mg/dL Final [facility]: 830 [facility] Blood venous Normal Blood Urea Nitrogen 15 mg/dL 7-18 mg/dL [facility]: 830 [facility] Blood venous Normal Creatinine for GFR 1.02 mg/dL 0.70-1.30 mg/dL [facility]: 830 [facility] Blood venous Normal Glomerular Filtration Rate > 60.0 >56 [facility]: 830 [facility] Blood venous Normal Sodium Level 143 mEq/L 136-14 5 mEq/L [facility]: 830 [facility] Blood venous Normal Potassium Serum 3.6 mEq/L 3.5 -5.1 mEq/L [facility]: 830 [facility] Blood venous High Chloride Level 108 mEq/L 98-1 07 mEq/L [facility]: 830 [facility] Blood venous Normal Carbon Dioxide Level 26 mEq/L 21-32 mEq/L [facility]: 830 [facility] Blood venous Normal Anion Gap 9 mEq/L 8-16 mEq/L [facility]: 830 [facility] Blood venous Normal Calcium Level 9.1 mg/dL 8.5-1 0.1 mg/dL [facility]: 830 [facility] Blood venous Normal AST/SGOT 26 U/L 7-37 U/L Mavis l [facility]: 830 [facility] Blood venous Normal ALT/SGPT 38 U/L 12-78 U/L Fin [facility]: [address] [place] [address] Blood venous Normal Alkaline Phosphatase 65 U/L 4 5-117 U/L [facility]: [address] [place] [address] Blood venous Low Bilirubin,total 0.1 mg/dL 0.2 -1.0 mg/dL [facility]: [address] [place] [address] Blood venous Normal Total Protein 7.2 gm/dL 6.4-8 .2 gm/dL [facility]: [address] [place] [address] Blood venous Normal Albumin 3.5 gm/dL 3.2-5.2 gm/ dL [facility]: [address] [place] [address] Blood venous Normal Albumin/globulin Ratio 0.9 [facility]: [address] [place] [address] 06/13/2020 HbA1C (Hemoglobin a1C), Blood Blood venous Normal Hemoglobin a1C 9.7 % [facility]: [address] [place] [address] Blood venous High Estimated Average Glucose 232 mg/dL 60-110 mg/dL [facility]: [address] [place] [address] 06/13/2020 Drug Prof Ur Ql (Inc Cannab) Normal Summary fi nal . [facility]: [address] [place] [address] 06/13/2020 Glucose, Fingerstick, Blood Whole blood Blood Glucose: mg/dl 92 [facility]: [address] [facility] 05/31/2020 CBC W/ Auto Diff Normal White Blood Count 10.0 10 4.0-10.0 10 [facility]: [address] [place] [address] Normal Red Blood Count 4.88 10 4.30-6.10 10 [facility]: [address] [place] [address] Normal Hemoglobin 14.2 g/dL 13.5-17.5 g/dL [facility]: [address] [place] [address] Normal Hematocrit 43.5 % 42.0-52.0 % [facility]: [address] [place] [address] Normal Mean Corpuscular Volume 89.1 fL 80.0 -96.0 fL [facility]: 830 [facility] Normal Mean Corpuscular Hemoglobin 29.1 pg 27.0-33.0 pg [facility]: 830 [facility] Normal Mean Corpuscular HGB Conc 32.6 g/dL 32.0-36.5 g/dL [facility]: 830 [facility] Normal Red Cell Distribution Width 12.8 % 1 1.5-14.5 % [facility]: 830 [facility] Normal Platelet Count, Automated 235 10 150 -450 10 [facility]: 830 [facility] High Neutrophils % 73.6 % 36.0-66.0 % [facility]: 830 [facility] Low Lymph % 18.0 % 24.0-44.0 % [facility]: 830 [facility] High [place] % 7.4 % 0.0-5.0 % Final [facility]: 830 [facility] Normal Eos % 0.3 % 0.0-3.0 % [facility]: 830 [facility] Normal Baso % 0.4 % 0.0-1.0 % [facility]: 0 [facility] Normal Immature Granulocyte % 0.3 % 0-3.0 % [facility]: 830 [facility] Normal Nucleated Red Blood Cell % 0.0 % 0- 0 % [facility]: 830 [facility] Normal Neutrophils # 7.4 10 1.5-8.[address] [facility]: 830 [facility] Normal Lymph # 1.8 10 1.5-5.0 10 [facility]: 830 [facility] Normal [place] # 0.7 10 0.0-0.8 10 [facility]: 8[address] [facility] Normal Eos # 0.0 10 0.0-0.5 10 [facility]: 830 [facility] Normal Baso # 0.0 10 0.0-0.2 10 [facility]: 830 [facility] 05/31/2020 Hepatic Function Panel, Serum Normal AST/SG OT 25 U/L 7-37 U/L [facility]: 830 [facility] Normal ALT/SGPT 20 U/L 12-78 U/L [facility]: 830 [facility] Normal Alkaline Phosphatase 62 U/L 45-117 U /L [facility]: 830 [facility] Normal Bilirubin,total 0.6 mg/dL 0.2-1.0 mg /dL [facility]: 0 [facility] Normal Bilirubin,direct 0.2 mg/dL 0.0-0.2 m g/dL [facility]: 0 [facility] High Total Protein 8.4 gm/dL 6.4-8.2 gm/d L [facility]: 830 [facility] Normal Albumin 4.2 gm/dL 3.2-5.2 gm/dL Mavis l [facility]: 0 [facility] Normal Albumin/globulin Ratio 1.0 [facility]: 0 [facility] 05/31/2020 BMP, Serum or Plasma High Glucose, Fastin g 226 mg/dL 70-100 mg/dL [facility]: 83 0 [facility] High Blood Urea Nitrogen 23 mg/dL 7-18 mg /dL [facility]: 0 [facility] Normal Creatinine for GFR 1.10 mg/dL 0.70-1 .30 mg/dL [facility]: 0 [facility] Normal Glomerular Filtration Rate > 60.0 >5 6 [facility]: 830 [facility] Normal Sodium Level 136 mEq/L 136-145 mEq/L [facility]: 0 [facility] Normal Potassium Serum 4.2 mEq/L 3.5-5.1 mE q/L [facility]: 0 [facility] Normal Chloride Level 101 mEq/L 98-107 mEq/ L [facility]: 830 [facility] Normal Carbon Dioxide Level 25 mEq/L 21-32 mEq/L [facility]: 830 [facility] Normal Anion Gap 10 mEq/L 8-16 mEq/L [facility]: 830 [facility] Normal Calcium Level 9.7 mg/dL 8.5-10.1 mg/ dL [facility]: 830 [facility] 05/31/2020 CK (Creatine Kinase) Mb, Quantitative, Blood Hi gh CPK Creatine Phosphokinase 967 U/L 39-308 U/L [facility]: 830 [facility] 05/31/2020 Ethanol, Blood Normal Ethyl Alcohol (Ethano l) < 0.003 % 0.000- 0.010 % [facility]: 83 0 [facility] 05/31/2020 Salicylate, Quantitative, Serum Low Sali cylate Level 3.4 mg/dL 5.0-30.0 mg/dL [facility]: 83 0 [facility] 05/31/2020 Acetaminophen, Serum Low Acetaminophen L evel < 2.0 ug/mL 10.0- 30.0 ug/mL [facility]: 83 0 [facility] 05/31/2020 TSH, Serum or Plasma Normal Thyroid Stimulating Hormone 0.474 uIU/mL 0.358-3.740 uIU/mL [facility] nter: 830 [facility] 05/31/2020 Drug Screen, Urine Normal Amphetamines Leve l Urine negative negative [facility]: 83 0 [facility] Normal Barbiturates Urine negative negative [facility]: 830 [facility] Normal Benzodiazepines Urine negative negat malu [facility]: 830 [facility] Normal Cannabinoids Urine negative negative [facility]: 830 [facility] Normal Cocaine Metabolite Urine negative ne gative [facility]: 830 [facility] Normal Methadone Urine negative negative Fi [facility]: 830 [facility] Normal Opiates Urine negative negative Mavis l [facility]: 830 [facility] Normal Phencyclidine Urine negative negativ e Final [facility]: 830 [facility] Past Encounters 03/15/2021 Body Mass Index 30+ - Obesity; Adult Health Examination; Type II Diabetes Mellitus Uncontrolled; Vitamin D Deficiency; Mixed Anxiety and Depressive Disorder Sanjuana Kunz [facility]: [address] [place] [address], Ph. 01/10/2021 Body Mass Index 30+ - Obesity; Type II Diabetes Mellitus Uncontrolled; Bilateral Hip Joint Pain; Schizophrenia Sanjuana Kunz [facility]: [address] [place] [address], Ph. 11/28/2020 SARS-CoV-2 Vaccination Kurtis Irizarry MD: [address] [place] [phone], Ph. 06/13/2020 Type II Diabetes Mellitus Uncontrolled; Pain in Right Hip Joint Amna Mcnamara [facility]: [address] [place] [address], Ph. Social History Tobacco Smoking Status Light Tobacco Smoker (1 pack per week ) Vaccine List Vaccine Type COVID-19 vaccine, vector-nr, [id number], PF , 0.5 mL .5 mL Plan of Care Patient Instructions Please continue medications as prescribe d. Please continue healthy diet and physical activities.Please try to limit sugars and carbohydrates in your diet. Please try to avoid processed foods. Please continue toujeo Solostar insulin increase to 45 units daily. Please continue to monitor and log blood sugar three -4 times daily. Please bring log to your next visit. We have sent a prescription to start trulicity. Please administer sub q once weekly. Please also start sliding scale use admelog insulin to cover. less diamond 150 = no insulin. 151 - 200 = 4 201 - 250 = 6 251 - 300 = 8 301 - 350 = 10 351 - 400 =12 Please call clinic if blood sugar less than 70 or greater than 400. We have ordered labs for you today. Plea se return to have labs done. Please continue medications as prescribed. Please try to maintain good nutrition, adequate rest and adequate physical activities and adequate intake of water daily. Please continue to follow with your specialist as scheduled. The medication you were prescribed today is an opioid. This medication is in the same class as methadone, morphine, and heroin. It is very dangerous to take it for long periods of time or to mix it with other opioids, alcohol, or benzodiazipines like Xanax or Klonopin. Taking more than prescribed or mixing meds can results in overdose and . Keep medications out of the reach of children as it can be very dangerous and even kill them if they eat or drink it. You have a pain contract with us that requires urine drug screens to make sure you aren't abusing other substances that would interact and be dangerous fo ryou while taking the pain medicine. You have had blood work drawn today. We will notify you with any abnormal results. If your results are normal, you will not hear from us, you may check the patient portal at any time to view your results. I have sent your medications to your preferred pharmacy. Call with questions or concerns regarding medications. Reminders Provider Appointments None recorded. Lab None recorded. Referral None recorded. Procedures None recorded. Surgeries None recorded. Imaging None recorded. Vitals 03/15/2021 10:40AM HOSPITAL DISCHARGE Height Weight BMI Blood Pressure 62 in 167 lbs 4 oz 30.6 kg/m2 104/70 mm[Hg] 01/10/2021 03:40PM HOSPITAL DISCHARGE Height Weight BMI Blood Pressure 62 in 165 lbs 16 oz 30.4 kg/m2 111/66 mm[Hg] 06/13/2020 12:40PM ESTABLISHED [id number] Height Weight BMI Blood Pressure 62 in 176 lbs 6 oz 32.3 kg/m2 93/58 mm[Hg] 01/18/2020 Height Weight BMI Blood Pressure 62 in 172 lbs 31.57 kg/m2 113/73 mm[Hg] 10/19/2019 Height Weight BMI Blood Pressure 62 in 160 lbs 6.08 oz 29.44 kg/m2 120/75 mm[H g] 06/27/2019 Height Weight BMI Blood Pressure 62 in 172 lbs 31.57 kg/m2 116/71 mm[Hg] 02/17/2019 Height Weight BMI Blood Pressure 62 in 165 lbs 30.29 kg/m2 115/70 mm[Hg] 12/09/2018 Height Weight BMI Blood Pressure 62 in 178 lbs 6.08 oz 32.74 kg/m2 130/71 mm[H g] 11/01/2018 Height Weight BMI Blood Pressure 62 in 177 lbs 8 oz 32.58 kg/m2 111/69 mm[Hg] 08/30/2018 Height Weight BMI Blood Pressure 62 in 177 lbs 32.49 kg/m2 115/79 mm[Hg]
--- OUTSIDE RECORDS SUMMARY | 2021-05-03 20:18 | CCD | Summary of Care ---
Author Author [facility] Address Unknown Phone Unavailable Care Team Providers Care Car Wash Attendant Name Role Phone Keith Dalila Kaiser CLOTHESPIN DRIER OPERATOR PCP Reason for Visit * Auth/Cert Referred By Contact Referred To Contact Status Reason Specialty Diagnoses / Procedures Diagnoses Psychosis, paranoid Schizophrenia Encounter Details Care Team Description Date Type Department Marysol Toney MD [address] [place] [address] [phone] Titus Blanco MD [address] [place], [place] [id number] 03/02/[address] PSYCHIATRY C C - Encounter [address] 03/06/2021 [place] [address] Allergies Comments Active Allergy Reactions Severity Noted Date hives Risperidone Low 03/02/2021 documented as of this encounter (statuses as of 03/06/2021) Medications End Date Status Medication Sig Dispensed Refills Start Date Active haloperidol (HALDOL) 10 Take 10 mg by 0 201 MG tablet mouth Three 5 times daily Active Baclofen 10 MG Oral Take 10 mg by 0 Tablet (LIORESAL) mouth Two Times Daily Active Benztropine Mesylate 1 MG Take 1 mg by 0 Oral Tablet (COGENTIN) mouth Two Times Daily Active Gabapentin 300 MG Oral Take 600 mg 0 Capsule (NEURONTIN) by mouth Three times daily Active Toujeo Max SoloStar 300 Inject 30 0 UNIT/ML Subcutaneous Units into Solution Pen-injector the skin (insulin glargine (2 Unit daily Dial)) Active Admelog 100 UNIT/ML Inject 10 0 Subcutaneous Solution Units into the skin As directed with meals Active QUEtiapine Fumarate 300 Take 600 mg 0 MG Oral Tablet (SEROquel) by mouth nightly Active Tamsulosin HCl 0.4 MG Take 0.4 mg 0 Oral Capsule (FLOMAX) by mouth daily Active clonazePAM 0.5 MG Oral Take 0.5 mg 0 Tablet (KLONOPIN) by mouth Two Times Daily MDD: 2 tablets Active metFORMIN HCl 850 MG Oral Take 850 mg 0 Tablet (GLUCOPHAGE) by mouth Two times daily with meals 04/05/2021 Active Nicotine Polacrilex [address] 1 100 tablet 0 0 Mouth/Throat Lozenge lozenge 1 (NICORETTE) inside cheek every 2 (two) hours as needed for Smoking cessation 03/05/2021 Discontinued (Medication Rec oncilation) GLIPIZIDE XL 2.5 MG 24 hr 0 tablet 4 03/05/2021 Discontinued (Medication Rec oncilation) insulin regular (HUMULIN Inject into 0 R) 100 UNIT/ML injection the skin Three times daily before meals. Sliding scale insulin 03/05/2021 Discontinued (Medication Rec oncilation) metformin (GLUCOPHAGE-XR) 0 500 MG 24 hr tablet 5 03/05/2021 Discontinued (Medication Rec oncilation) quetiapine (SEROQUEL) 100 0 09/08/201 MG tablet 5 03/05/2021 Discontinued (Medication Rec oncilation) trazodone (DESYREL) 100 0 09/08/201 MG tablet 5 03/06/2021 Discontinued (Stop Taking at Discharge) tiZANidine HCl 4 MG Oral Take 4 mg by 0 Tablet (ZANAFLEX) mouth Three times daily as needed 03/06/2021 Discontinued (Stop Taking at Discharge) traZODone HCl 50 MG Oral Take 50 mg by 0 Tablet (DESYREL) mouth nightly as needed for Sleep documented as of this encounter (statuses as of 03/06/2021) Active Problems Patient Care Coordination Note certified dietary manager Nataliia Harris [phone] Problem Noted Date Type 2 diabetes mellitus without complication, withou t long-term current 03/03/2021 use of insulin Benign prostatic hyperplasia without lower urinary tr act symptoms 03/03/2021 Psychosis, paranoid 03/02/2021 Pancytopenia 08/16/2015 Schizophrenia 04/24/2014 Alcohol withdrawal hallucinosis 01/04/2014 Pain, dental 01/03/2014 Acute alcoholic intoxication in alcoholism, continuou s 01/03/2014 Polysubstance dependence 01/03/2014 Spasm of muscle 01/25/2013 documented as of this encounter (statuses as of 03/06/2021) Social History Date Tobacco Use Types Packs/Day Years Used Current Every Day Smoker 0.25 35 Smokeless Tobacco: Never Used Tobacco Cessation: Ready to Quit: No; Co unseling Given: No Comments Alcohol Use Standard Drinks/Week Not Currently 0 (1 standard drink = 0.6 o z pure alcohol) Sex Assigned at Date Recorded Not on file Date Recorded COVID-19 Exposure Response 03/02/2021 6:39 PM EDT In the last month, have you been in contact with No / Unsure someone who was confirmed or suspected to have Coronavirus / COVID-19? documented as of this encounter Last Filed Vital Signs Reading Time Taken Comments Vital Sign 104/67 03/06/2021 9:32 AM EDT Blood Pressure 82 03/06/2021 9:32 AM EDT Pulse 36.6 C (97.9 F) 03/06/2021 9:32 AM EDT Temperature 18 03/05/2021 8:00 PM EDT Respiratory Rate 97% 03/06/2021 9:32 AM EDT Oxygen Saturation - - Inhaled Oxygen Concentration - - Weight - - Height - - Body Mass Index documented in this encounter Discharge Instructions * Appointments* Dunia Lane LCSW - 03/06/2021 8:31 AM EDT [address] [phone] Appointment on 03/11/2021 at 9:30 AM with Ebony (in the office) Appointment on 03/19/2021 at 12:45 PM with Daylin (in the office) documented in this encounter Progress Notes * Titus Blanco MD - 03/06/2021 2:10 PM EDT Dictation on: 03/06/2021 3:06 PM by: ITTUS BLANCO [[id number]] * Dunia Lane LCSW - 03/06/2021 9:53 AM EDTSummary: Discharge note 03/06/21 0953 Social Work Productivity Referral Type Psychiatric Time Spent (minutes) 20 SW met with patient with the treatment team for discharge. Patient is pleasant, calm and stable. He will have an appointment with his provider at [facility] on 03/11/2021 and he will be returning to his apartment in [place]. He has good supports in the community with a case resolution specialist who is imtiaz y active in his care. * Khadra Cortez RN - 03/06/2021 12:17 AM EDT Received report from outgoing RN at 2300. Pt asleep through out the night. Resp irations easy,even,unlabored. Position changes noted. No apparent distress.No WA N's given this shift. No new concerns. Will continue to monitor for comfort and safety. * Reece Hou RN - 03/05/2021 6:50 PM EDT RN Shift Note [id number]: Pt isolative to room, appearing to sleep. Awoke for sam l and medication administration. Compliant with FSBG and insulin ss orders. Decl ined to attend groups. Requested and received PRN Klonopin 0.5 mg and hydroxyzin e 50 mg with HS medication. No s/sxs of viral illness. No DTS/DTO behaviors. Luis A l continue to monitor pt. * Titus Blanco MD - 03/05/2021 4:03 PM EDT PSY Progress Note Subjective: CC: I am doing good,can I go home Interval HX Patient reports that he went to [facility] for his diabetes checkup and he does not know why he was transferred here. I am doing good for the last 3 da ys, I am happy and my hallucination is better controlled. . Patient Active Problem List Diagnosis Spasm of muscle Pain, dental Acute alcoholic intoxication in alcoholism, continuous Polysubstance dependence Alcohol withdrawal hallucinosis Schizophrenia Pancytopenia Psychosis, paranoid Type 2 diabetes mellitus without complication, without long-term current use of insulin Benign prostatic hyperplasia without lower urinary tract symptoms Allergies: . Allergies Allergen Reactions Risperdal [Risperidone] hives . Current Facility-Administered Medications: acetaminophen (TYLENOL) tablet 650 mg, 650 mg, Oral, Q6H PRN, Delta A Use v, CLOTHESPIN DRIER OPERATOR baclofen (LIORESAL) tablet 10 mg, 10 mg, Oral, BID, Delta A Usev, CLOTHESPIN DRIER OPERATOR, 10 mg at 03/05/21 0911 benztropine (COGENTIN) tablet 1 mg, 1 mg, Oral, BID, Dleta A Usev, CLOTHESPIN DRIER OPERATOR, 1 mg at 03/05/21 0911 clonazePAM (KLONOPIN) tablet 0.5 mg, 0.5 mg, Oral, Daily PRN, Delta A Use v, CLOTHESPIN DRIER OPERATOR dextrose 50 % IV solution 25 mL, 25 mL, Intravenous, PRN, Delta A Usev, N P gabapentin (NEURONTIN) capsule 600 mg, 600 mg, Oral, TID, Delta A Usev, N P, 600 mg at 03/05/21 1426 glucagon (human recombinant) (GLUCAGEN) injection 1 mg, 1 mg, Intramuscu lar, PRN, Delta A Usev, CLOTHESPIN DRIER OPERATOR glucose (GLUTOSE) 40 % oral gel 15 g, 15 g, Oral, PRN, Delta A Usev, CLOTHESPIN DRIER OPERATOR haloperidol (HALDOL) tablet 10 mg, 10 mg, Oral, TID, Delta A Usev, CLOTHESPIN DRIER OPERATOR, 10 mg at 03/05/21 1426 hydrOXYzine (ATARAX) tablet 50 mg, 50 mg, Oral, Q6H PRN, Delta A Usev, CLOTHESPIN DRIER OPERATOR insulin glargine (LANTUS) injection 24 Units, 24 Units, Subcutaneous, Ni ghtly, Delta A Usev, CLOTHESPIN DRIER OPERATOR, 24 Units at 03/04/212100 insulin lispro (HumaLOG) injection LOW DOSE EATING INSULIN patients 1-8 Units, 1-8 Units, Subcutaneous, 3 x Daily with Meals, Delta A Usev, CLOTHESPIN DRIER OPERATOR, 4 Units a t 03/05/21 1330 metFORMIN (GLUCOPHAGE) tablet 500 mg, 500 mg, Oral, 2 x Daily with Meal s, Delta A Usev, CLOTHESPIN DRIER OPERATOR, 500 mg at 03/05/21 09 nicotine (NICORETTE) lozenge 2 mg, 2 mg, Mouth/Throat, Q2H PRN, Delta A U sev, CLOTHESPIN DRIER OPERATOR, 2 mg at 03/04/212121 QUEtiapine (SEROquel) tablet 600 mg, 600 mg, Oral, Nightly, Delta A Usev, CLOTHESPIN DRIER OPERATOR, 600 mg at 03/04/212108 tamsulosin (FLOMAX) capsule 0.4 mg, 0.4 mg, Oral, Daily, Delta A Usev, CLOTHESPIN DRIER OPERATOR , 0.4 mg at 03/05/21 09 Review Of Systems: Medical Review Of Systems: .Review of Systems Psychiatric/Behavioral: Negative for hallucinations. The patient is not nervous/ anxious. All other systems reviewed and are negative. All other systems reviewed are negative Psychiatric Review Of Systems: sleep: no appetite changes: no weight changes: no energy/anergy: no interest/pleasure/anhedonia: no somatic symptoms: no libido: no anxiety/panic: no guilty/hopeless: no S.I.B.s/risky behavior: no any drugs: no alcohol: no Objective: . Vitals: 03/04/21 1600 03/05/21 0907 03/05/21 0910 03/05/21 1425 BP: 103/64 94/61 111/66 106/63 Pulse: 87 100 81 Resp: 16 Temp: 37.3 C (99.1 F) 36.3 C (97.3 F) SpO2: 95% 93% 97% Mental Status Exam: .General Appearance: Patient is a thin 50 y.o. male. He is sitting in a chair.H e is dressed in weather appropriate and casual clothing. Behavior: Attitude: Patient is cooperative. Eye Contact: Eye contact is appropriate. Speech: Patient's speech is spontaneous. Speech quantity: normal. Rate is normal . Volume is normal. Mood: "Ok". Affect: Affect is euthymic and stable. Patient appears to have full range. Thought Process: Thought process is linear, coherent and goal directed. Thought Content: Patient does not express active suicidal ideation, passive suic idal ideation, active homicidal ideation and passive homicidal ideation. Perceptions: Patient does not have auditory hallucinations or visual hallucinati ons. Cognition: Patient is awake and alert. He is oriented to time, place and person. Insight: Limited Judgement: Fair (look above for MSE button and delete this line) Gait: Muscle Tone: Labs: .No results for input(s): NA, K, CL, BICARBONATE, CALCIUM, GLUCOSE, BUN, CREATIN INE, BCR, LABOSMO, PROT, ALBUMIN, TBILI, ALKPHOS, AST, ALT, AGGREGATE, AGRATIO, GFRAA, GFRNONAA in the last 168 hours. .No results for input(s): HCT, HGB, MCH, MCHC, MCV, MPV, PLT, RDW, WBCUA, WBCCAS T, WBCCASTS, WBC in the last 168 hours. .No results for input(s): TSH, T3FREE, W9DGBJY, FREET4, V3FYTRC in the last 168 hours. EKG: Assessment and Plan: Primary Diagnosis: 50-year-old gentleman with historic diagnosis of schizophrenia, stimulant use di sorder, who acknowledges recent use of crystal meth or cocaine. He reports that he recently got an apartment and his paralegal instructor, Nataliia, had moved his 4 samantha en into his apartment and that he is happy with his life. He reports that he wo uld like to have an chalker soles to manage his diabetes, that currently his [facility] physician is managing his diabetes. Patient reports that as long as he takes Haldol, Seroquel, gabapentin, Cogentin, his symptoms are under control and his treatment team had added a small dose of Klonopin for anxiety, which is helping him. He acknowledges smoking 3 cigarettes a day. He had been sober fr om alcohol for 9 months, and on and off, he had struggled with cocaine and cryst al meth. Patient is supported by [facility]. He denies any current legal charges. Be side his paralegal instructor, Nataliia, he had his loss prevention supervisor, his brother, [facility]. DIAGNOSTIC IMPRESSION: Patient's psychotic symptoms seems to have improved and is improving. I will be changing his level of observation to 30 minutes. I discussed discharge plan fo r tomorrow. Patient consented to his treatment and his discharge plan. He repo rts that he will be asking his paralegal instructor to feed his kittens. DSM-5: . 295.90 (F20.9) Schizophrenia 305.60 (F14.10) Stimulant Use Disorder, Mild, Cocaine Monitor. Admitted using Cocaine. Re evalue in am Duration of Face to Face Time (in minutes)::25 Floor Time (in minutes): 20 [x] Greater than 50% of patient time and floor time spent providing counseling and/or coordination of care Counseling provided with: [x] Patient [] Family [] Caregiver [] Diagnostic results/impressions and/or recommendation studies [] Risks and Benefits of Treatment Options [] Instruction for Management/Treatment and/or Follow-Up [] Risk Factor Reduction [x] Importance of Compliance with Treatment Options [x] Patient/Family/Caregiver Education [] Prognosis Coordination of Care provided with: [] Nursing Staff [x] Treatment Team []Social Work [] Physician(s) [] Family [] Caregi imtiaz Justification for Continued Stay: [] A. Continued Danger to Self and/or Others [] B. Continued behavior intolerable to patient or society [] C. High probability of A or B recurring if patient were discharged and immine nt re-hospitalization likely [] D. Recovery depends on use of modality, patient unwilling or unable to coop erate [] E. Major change of clinical conditions required extended treatment [] F. Patient has general medical condition requiring hospital care & due to psychiatric aspects, patient cannot be managed as well on non-psych unit [] ALC Alternate Level of Care * Ana Morris RN - 03/05/2021 3:15 PM EDT LVM with Nataliia CARDENAS, to discuss discharge plans for tomorrow, and inquire of P CP. * Khadra Cortez RN - 03/05/2021 4:04 AM EDT 19:00- 07:30 Report received from outgoing RN. Patient lying in bed in his room @ start of shift. Patient isolative to room, went in line for snack but then ret reated in his room. Mood stated as "better" affect blunted. Took all medications , Denies SI/HI/AVH.Patient thought process was linear and behavior was cooperati ve. Patient ambulated and performed ADLs independently. Education given on certa in medications, Will continue to monitor. Patient slept throughout night. Safet y checks maintained with frequent rounding. Report given to oncoming staff. * Evelina Martinez RN - 03/04/2021 6:27 PM EDT Pt is mostly isolative to room. Less guarded on approach. Continued to focused o n the ED doctor that admitted him. Mood stated as "better" affect less anxious. Denies SI,HI and AVH. Hoping for discharge soon. Reminded to wear his facemask a s required, no s/s of covid. Cooperative and med compliant. Will continue to [facility] for safety and support. * Marysol Toney MD - 03/04/2021 12:40 PM EDT PSY Progress Note Subjective: CC: I do not know why I am here at this time Interval HX:Patient seen in room. Said he went to see MD in ED and wound up here . Denied any concerns. Denied any harm to self or others Somewhat guarded at this time. Denied any A/V decker Wanted to leave soon . Patient Active Problem List Diagnosis Spasm of muscle Pain, dental Acute alcoholic intoxication in alcoholism, continuous Polysubstance dependence Alcohol withdrawal hallucinosis Schizophrenia Pancytopenia Psychosis, paranoid Type 2 diabetes mellitus without complication, without long-term current use of insulin Benign prostatic hyperplasia without lower urinary tract symptoms Allergies: . Allergies Allergen Reactions Risperdal [Risperidone] hives . Current Facility-Administered Medications: acetaminophen (TYLENOL) tablet 650 mg, 650 mg, Oral, Q6H PRN, Delta A Use v, CLOTHESPIN DRIER OPERATOR baclofen (LIORESAL) tablet 10 mg, 10 mg, Oral, BID, Delta A Usev, CLOTHESPIN DRIER OPERATOR, 10 mg at 03/04/21907 benztropine (COGENTIN) tablet 1 mg, 1 mg, Oral, BID, Delta A Usev, CLOTHESPIN DRIER OPERATOR, 1 mg at 03/04/21907 clonazePAM (KLONOPIN) tablet 0.5 mg, 0.5 mg, Oral, Daily PRN, Delta A Use v, CLOTHESPIN DRIER OPERATOR dextrose 50 % IV solution 25 mL, 25 mL, Intravenous, PRN, Delta A Usev, N P gabapentin (NEURONTIN) capsule 600 mg, 600 mg, Oral, TID, Delta A Usev, N P, 600 mg at 03/04/21907 glucagon (human recombinant) (GLUCAGEN) injection 1 mg, 1 mg, Intramuscu lar, PRN, Delta A Usev, CLOTHESPIN DRIER OPERATOR glucose (GLUTOSE) 40 % oral gel 15 g, 15 g, Oral, PRN, Delta A Usev, CLOTHESPIN DRIER OPERATOR haloperidol (HALDOL) tablet 10 mg, 10 mg, Oral, TID, Delta A Usev, CLOTHESPIN DRIER OPERATOR, 10 mg at 03/04/21907 hydrOXYzine (ATARAX) tablet 50 mg, 50 mg, Oral, Q6H PRN, Delta A Usev, CLOTHESPIN DRIER OPERATOR insulin glargine (LANTUS) injection 24 Units, 24 Units, Subcutaneous, Ni ghtly, Delta A Usev, CLOTHESPIN DRIER OPERATOR, 24 Units at 03/03/212107 insulin lispro (HumaLOG) injection LOW DOSE EATING INSULIN patients 1-8 Units, 1-8 Units, Subcutaneous, 3 x Daily with Meals, Delta A Usev, CLOTHESPIN DRIER OPERATOR, 3 Units a t 03/04/21905 metFORMIN (GLUCOPHAGE) tablet 500 mg, 500 mg, Oral, 2 x Daily with Meal s, Delta A Usev, CLOTHESPIN DRIER OPERATOR, 500 mg at 03/04/21907 nicotine (NICORETTE) lozenge 2 mg, 2 mg, Mouth/Throat, Q2H PRN, Delta A U sev, CLOTHESPIN DRIER OPERATOR QUEtiapine (SEROquel) tablet 600 mg, 600 mg, Oral, Nightly, Delta A Usev, CLOTHESPIN DRIER OPERATOR, 600 mg at 03/03/212108 tamsulosin (FLOMAX) capsule 0.4 mg, 0.4 mg, Oral, Daily, Delta Salazar, CLOTHESPIN DRIER OPERATOR , 0.4 mg at 03/04/21 0908 Review Of Systems: Medical Review Of Systems: .Review of Systems Psychiatric/Behavioral: Positive for hallucinations. The patient is nervous/anxi ous. All other systems reviewed are negative Psychiatric Review Of Systems: sleep: no appetite changes: no weight changes: no energy/anergy: no interest/pleasure/anhedonia: no somatic symptoms: no libido: no anxiety/panic: no guilty/hopeless: no S.I.B.s/risky behavior: no any drugs: no alcohol: no Objective: . Vitals: 03/03/21 2100 03/04/21 0650 03/04/21 0655 03/04/21 0730 BP: 100/60 (!) 78/55 (!) 86/56 97/67 Pulse: 86 87 88 Resp: 18 17 16 Temp: 36.7 C (98.1 F) 37.1 C (98.8 F) SpO2: 96% 94% Mental Status Exam: .General Appearance: Patient is a thin 50 y.o. male.He is dressed in weather ap propriate clothing. Behavior: Attitude: Patient is cooperative. Eye Contact: Eye contact is appropriate. Speech: Patient's speech is spontaneous. Speech quantity: normal. Rate is normal . Volume is normal. Affect: Affect is euthymic. Thought Process: Thought process is linear and coherent. Cognition: Patient is awake and alert. He is oriented to time and place. Insight: Poor Judgement: Poor (look above for MSE button and delete this line) Gait: Muscle Tone: Labs: .No results for input(s): NA, K, CL, BICARBONATE, CALCIUM, GLUCOSE, BUN, CREATIN INE, BCR, LABOSMO, PROT, ALBUMIN, TBILI, ALKPHOS, AST, ALT, AGGREGATE, AGRATIO, GFRAA, GFRNONAA in the last 168 hours. .No results for input(s): HCT, HGB, MCH, MCHC, MCV, MPV, PLT, RDW, WBCUA, WBCCAS T, WBCCASTS, WBC in the last 168 hours. .No results for input(s): TSH, T3FREE, T3TTCYJ, FREET4, R3YCWWF in the last 168 hours. EKG: Assessment and Plan: Primary Diagnosis: DSM-5: . 295.90 (F20.9) Schizophrenia 305.60 (F14.10) Stimulant Use Disorder, Mild, Cocaine Monitor. Admitted using Cocaine. Re evalue in am Duration of Face to Face Time (in minutes)::40 Floor Time (in minutes): 20 [x] Greater than 50% of patient time and floor time spent providing counseling and/or coordination of care Counseling provided with: [x] Patient [] Family [] Caregiver [] Diagnostic results/impressions and/or recommendation studies [] Risks and Benefits of Treatment Options [] Instruction for Management/Treatment and/or Follow-Up [] Risk Factor Reduction [x] Importance of Compliance with Treatment Options [x] Patient/Family/Caregiver Education [] Prognosis Coordination of Care provided with: [] Nursing Staff [x] Treatment Team []Social Work [] Physician(s) [] Family [] Caregi imtiaz Justification for Continued Stay: [] A. Continued Danger to Self and/or Others [] B. Continued behavior intolerable to patient or society [] C. High probability of A or B recurring if patient were discharged and immine nt re-hospitalization likely [] D. Recovery depends on use of modality, patient unwilling or unable to coop erate [] E. Major change of clinical conditions required extended treatment [] F. Patient has general medical condition requiring hospital care & due to psychiatric aspects, patient cannot be managed as well on non-psych unit [] ALC Alternate Level of Care * Annemarie Engel LPN - 03/04/2021 9:45 AM EDT Fingerstick before breakfast: 102. Patient consumed 56 grams of carbohydrates. P t received 3 units of humalog per order. Pt compliant with scheduled medications . Fingerstick before lunch: 157. Pt consumed 57.7 grams of carbohydrates at [facility] h. Pt received 4 units of humalog per order. Will continue to monitor for safety . * Christopher Ellsworth RN - 03/04/2021 5:56 AM EDT RN Shift Note [id number]: Report received from previous shift. Pt appeared to be asleep in bed at start of shift. Woke for hs fingerstick (104), meds and vitals; compliant with all as ordered. Pt was dismissive to all attempts at conversatio n and did not speak to principal technical writer during interaction, only nodded and shook head as response. Appeared to sleep throughout the night in no apparent distress. Respir ations easy, even, unlabored. Position changes noted. Around 0700 BULLARD OPERATOR reported p ts bp was low and requested principal technical writer assess. Manual bp performed and shown to be 8 6/56. Pt provided with fluids and encouraged intake. Will reassess. Remains on 1 5 minute safety checks as ordered. Will continue to monitor and report for safet y. Report given to oncoming RN. * Susy Maloney RN - 03/03/2021 7:01 PM EDT RN Shift Note [id number] Assumed care of patient at 0730. Patient is guarded upon approach. He refused to answer safety questions. He is compliant with scheduled medications and blood g lucose monitoring. He is dismissive when this principal technical writer attempts to engage in conve rsation. He has spent the whole shift in bed. He is not attending groups. He merchant s get up to eat his meals in his room. Patient was asked again about his allergi es, he reports allergy to Risperdal only, denies being allergic to Haldol so all ergy was removed from chart. No unsafe behaviors. 15 minute observations lise rbaun for safety. Will continue to monitor. * Pia Bowles RN - 03/03/2021 5:07 AM EDT RN Note: Patient appeared to sleep throughout the night, respirations easy, even , unlabored. Position changes noted. Frequent checks maintain. * Evelina Martinez RN - 03/02/2021 6:57 PM EDT 50 year old male admitted from [facility] ED with anxiety, psychosis and paranoia . Denies SI,HI, and AVH. Pt is currently agitated asking who the Dr was that adm itted him here. Pt is focused on wanting discharge as soon as possible. Medical history of DM. Pt is guarded but redirectable and cooperative throughout admission process. Later pt focused on possible gang infiltration in the hospital. Reassurance given in rega rds to safety. Pt is oriented to the unit and given the booklet. Reminded to wea r his facemask as required, no s/s of covid. Cooperative and med compliant. will continue to monitor closely for safety and support. * Crystal aCrdoza RN - 03/02/2021 6:24 PM EDTSummary: Belongings The following items arrived with patient: GIVEN TO PATIENT: 1 pair blue jeans 1 verma fern shirt LOCKED IN CLOSET: 1 pair white socks 1 pair white sneakers with laces 1 package pipe tobacco 2 lighters 1 black cell phone Locked in safe: Cards and $170.30, keys, wallet, Safety: razor blade documented in this encounter H&P Notes * Delta Salazar NP - 03/03/2021 4:28 PM EDT . ADULT PSYCHIATRY H&P/ADMISSION NOTE Patient Jose L Lam 1970 Date of Admission 03/02/2021 PSYCHIATRIC EVALUATION SOURCES OF INFORMATION: Pt, medical record REASON FOR ADMISSION: Psychosis, delsions CHIEF COMPLAINT: Psychosis, delsions HISTORY OF PRESENT ILLNESS: Pt is a 50 year old single male with past psychiatric history s ignificant for psychosis, schizophrenia substance use (cocaine); was presented t o ER with elevate psychosis and paranoia, after using cocaine. COLLATERAL CONTACTS: NA PSYCHIATRIC REVIEW OF SYSTEMS: Psychiatric Review of Systems: Psychosis: Auditory hallucinations: voices and Delusions: persecutory: paranoia , delusions of reference: paranoia and comments: substance induce paranoia. PAST PSYCHIATRIC HISTORY: Past diagnoses: psychosis, schizophrenia substance use (cocaine); Past Treatment: inpatient and outpatient Therapist: Chiquita reeves [facility] Psychiatrist/fabric finisher: Dr. Pappas [facility] Past Medication Trials and Effects: multiple Other Treatment Team Members: RADHA ED/CPEP Visits: multiple Inpatient or residential admission: 5 Self-harm: denies Violence/aggression: denies Suicide Attempts: denies Access to firearms: denies SUBSTANCE USE HISTORY: Alcohol: History. Last drink 89 months ago Drugs: Cocaine, kendal math, marijuana Nicotine: 3 cigarettes daily Past Substance use disorder treatment: denies CURRENT MEDICATIONS: Scheduled baclofen (LIORESAL) tablet 10 mg 10 mg, PO, BID Last Action: Given, 10 mg at 03/03 934 benztropine (COGENTIN) tablet 1 mg 1 mg, PO, BID Last Action: Given, 1 mg at 03/03 934 gabapentin (NEURONTIN) capsule 600 mg 600 mg, PO, TID Last Action: Given, 600 mg at 03/03 143 haloperidol (HALDOL) tablet 10 mg 10 mg, PO, TID Last Action: Given, 10 mg at 03/03 143 insulin glargine (LANTUS) injection 24 Units 24 Units, SC, Nightly Last Action: Given, 24 Units at 03/02 2106 insulin lispro (HumaLOG) injection LOW DOSE EATING INSULIN patients 1-8 Units 1-8 Units, SC, 3 x Daily with Meals Last Action: Given, 5 Units at 03/03 1322 metFORMIN (GLUCOPHAGE) tablet 500 mg 500 mg, PO, 2 x Daily with Meals Last Action: Given, 500 mg at 03/03 934 QUEtiapine (SEROquel) tablet 600 mg 600 mg, PO, Nightly Last Action: Given, 600 mg at 03/02 211 tamsulosin (FLOMAX) capsule 0.4 mg 0.4 mg, PO, Daily Last Action: Given, 0.4 mg at 03/03 934 PRN acetaminophen (TYLENOL) tablet 650 mg 650 mg, PO, Q6H PRN Last Action: Ordered clonazePAM (KLONOPIN) tablet 0.5 mg 0.5 mg, PO, Daily PRN Last Action: Ordered dextrose 50 % IV solution 25 mL 25 mL, IV, PRN Last Action: Ordered glucagon (human recombinant) (GLUCAGEN) injection 1 mg 1 mg, IM, PRN Last Action: Ordered glucose (GLUTOSE) 40 % oral gel 15 g 15 g, PO, PRN Last Action: Ordered hydrOXYzine (ATARAX) tablet 50 mg 50 mg, PO, Q6H PRN Last Action: Ordered nicotine (NICORETTE) lozenge 2 mg 2 mg, MT, Q2H PRN Last Action: Ordered PAST MEDICAL HISTORY: denies ALLERGIES: Risperdal [risperidone] FAMILY HISTORY: Mental illness: denies Substance use disorder: denies Suicide attempts: denies SOCIAL HISTORY: Living Situation: Pt is a 50 year old single male, currently d omicile alone in [place] Education: Highest level completed: 2 years vocational IQ/Learning disability/Special accommodations needed: NA Significant Other: denies Children: 2 Trauma: denies Abuse: denies Bullying: denies Supports: denies Legal Issues: denies Experience: denies Other: NA MEDICAL REVIEW OF SYSTEMS: 1. Constitutional Positive [] Negative [x] 2. Cardiovascular Positive [] Negative [x] 3. Respiratory Positive [] Negative [x] 4. Gastrointestinal Positive [] Negative [x] 5. Genitourinary Positive [] Negative [x] 6. Muscular Positive [] Negative [x] 7. Neurological Positive [] Negative [x] 8. Endocrine Positive [] Negative [x] 9. Allergies/Immune Positive [] Negative [x] Denies medical complaints. PHYSICAL EXAM: Perform by hospitalist LABORATORY AND DIAGNOSTIC TEST RESULTS: Reviewed VITAL SIGNS: Vitals: 03/02/21 1800 03/03/21 0853 BP: 96/60 100/54 Pulse: 99 84 Resp: 18 16 Temp: 36.9 C (98.4 F) 36.6 C (97.9 F) SpO2: 97% 97% MENTAL STATUS EXAM: General Appearance (nutrition, body habitus, grooming): Pt is aevrage tall and build middle age Afric[place] Mexican male, dressed casually, good hygiene, poo r ye contact Level of consciousness: Awake and alert Orientation: Oriented to person, place, and time Behavior/Attitude: guarded Gait/Motor Behavior/Muscle Tone: normal Speech: Soft, underproductive Thought Process: Linear, goal directed Associations (normal/circumstantial/tangential/loose/flight of ideas): nor mal Abnormal/Psychotic Thoughts (delusions, preoccupation with violence, SI/HI) : denies Perceptual Disturbances (hallucinations): Denies on evlauation Mood: OK Affect: blunted Cognition: Grossly intact Insight and Judgement: [facility] SUICIDE SEVERITY RATING SCALE (C-SSRS): INPATIENT SUICIDE SEVERITY RATING SCALE (based on the C-SSRS) Evaluation of Suicide Severity within the last 48 hrs 1) Wish to be : Person endorses thoughts about a wish to be or not alive anymore, or wish t o fall asleep and not wake up? Have you wished you were or wished you could go to sleep and not wake up? No 2) Suicidal Thoughts: General non-specific thoughts of wanting to end one's life/ by suicide, "I've thought about killing myself" without general thoughts of ways to kill oneself/ associated methods, intent, or plan. Have you actually had any thoughts of killing yourself? No 3) Suicidal Thoughts with Method (without Specific Plan or Intent to Act): Person endorses thoughts of suicide and has thought of at least one method durin g the assessment period. This is different than a specific plan with time, place or method details worked out. "I thought about taking an overdose but I never m sonia a specific plan as to when where or how I would actually do it...and I would never go through with it." Have you been thinking about how you might do this? No 4) Suicidal Intent (without Specific Plan): Active suicidal thoughts of killing oneself and patient reports having some inte nt to act on such thoughts, as opposed to "I have the thoughts but I definitely will not do anything about them." Have you had these thoughts and had some intention of acting on them? No 5) Suicide Intent with Specific Plan: Thoughts of killing oneself with details of plan fully or partially worked out a nd person has some intent to carry it out. Have you started to work out or worked out the details of how to kill yourself? Do you intend to carry out this plan? No 6) Suicidal Behavior Question: Have you ever done anything, started to do anything, or prepared to do anything to end your life? Examples: Collected pills, obtained a gun, gave away valuables, wrote a will or suicide note, took out pills but didn't swallow any, held a gun but changed your mind or it was grabbed from your hand, went to the roof but didn't jump; or act ually took pills, tried to shoot yourself, cut yourself, tried to hang yourself, etc. No If YES, ask: Were any of these in the past 3 months? 7) Suicidal Attempts: Have you made a suicide attempt (took an action to end your life)? No If YES, ask: 7a) How many attempts have you ever made? 7b) How long ago was your most recent attempt? Suicide Risk: Low General Suicide Risk Factors Chronic Predisposing Risk Factors (Permanent and Non-modifiable): Gender - Male and History of Psychiatric Hospitalization Chronic Predisposing Risk Factors (Potentially Modifiable): Gower I Disorders, es pecially Mood/Bipolar, Anxiety, Schizophrenia, Alcohol/Substance Use, Eating, Vince dy Dysmorphic, ADHD/Conduct, Psychiatric Comorbidity, especially Mood and Alcoho l Use Disorder and Tobacco Smoking Chronic Environmental Factors (Potentially Modifiable): Receiving Public Assista nce/Disability and Access to Means Acute Risk Factors (Behavioral): Isolation (e.g. lives alone) and Excessive or I ncreased Use of Substances (alcohol or drugs) Acute Risk Factors (Cognitive/Emotional): Suspiciousness, Paranoia (ideas of per secution or reference), Command Hallucinations Urging Suicide, Cognitive Rigidit y and Feeling Trapped Patient does not have access to guns. Patient has access to other potentially lethal means. Protective Factors Internal: Adequate coping skills, Help-seeking behavior/advice seeking, Adequate Impulse Control, Problem Solving skills/Conflict Resolution abilities and Reaso nable Safety Plan External: Social integration/opportunities to participate and Good relationships with peers/other people Additional Child/Adolescent Protective Factors: Mature Concept of Clinical Formulation VIOLENCE ASSESSMENT (VRISK-10): V-RISK-10: 1. Previous and/or current violence: No 2. Previous and/or current threats (verbal/physical): No 3. Previous and/or current substance abuse: Yes 4. Previous and/or current major mental illness: Yes 5. Personality Disorder: No 6. Shows lack of insight into illness and/or behavior: No 7. Expresses suspicion: No 8. Shows lack of empathy: No 9. Unrealistic planning: No 10. Future stress-situations: No Overall clinical evaluation of risk for violence: Low Suggestion following overall clinical evaluation: No More Detailed Violence Ris k Assessment Total Score: 4 Total Do Not Know Answers: 0 Assessment: Pt is a 50 year old single male with past psychiatric history s ignificant for psychosis, schizophrenia substance use (cocaine); was presented t o ER with elevate psychosis and paranoia, after using cocaine. Pt was seen and evaluate in private. He was calm, guarded, and somewhat cooperat malu. On evaluation, Pt denies any problems, try to minimize all symptoms. He sta jaylyn that he does not know why he is in hospital. He denies any illicit drugs usi ng, but on record exist. He reported delusions to EMS, by seen "people with guns " in his apartment. On session, he denies any SI or HI. PSYCHIATRIC DIAGNOSIS: 295.90 (F20.9) Schizophrenia 305.60 (F14.10) Stimulant Use Disorder, Mild, Cocaine TREATMENT PLAN: Reasons for admission and treatment goals: Psychiatric admission for safety, stabilization, and medication managemen t Treatment includes individual, group, milieu, family, occupational, recre ational, art, and other therapies utilizing an adaptation of DBT Psychopharmacology: Continue with established medication regiment. Medication education: Pt was educated for benefits and side effects of me dication. Encourage patient to attend groups Monitor for safety and efficacy Continue with monitoring for further evaluation and treatment Legal status: 9:37 Safety/Level of observation: Patient is appropriate for 15 min checks based on m y clinical assessment, their C-SSRS risk score, and their risk/protective factor s. Scheduled medications: Scheduled baclofen (LIORESAL) tablet 10 mg 10 mg, PO, BID Last Action: Given, 10 mg at 03/03 934 benztropine (COGENTIN) tablet 1 mg 1 mg, PO, BID Last Action: Given, 1 mg at 03/03 934 gabapentin (NEURONTIN) capsule 600 mg 600 mg, PO, TID Last Action: Given, 600 mg at 03/03 143 haloperidol (HALDOL) tablet 10 mg 10 mg, PO, TID Last Action: Given, 10 mg at 03/03 143 insulin glargine (LANTUS) injection 24 Units 24 Units, SC, Nightly Last Action: Given, 24 Units at 03/02 2106 insulin lispro (HumaLOG) injection LOW DOSE EATING INSULIN patients 1-8 Units 1-8 Units, SC, 3 x Daily with Meals Last Action: Given, 5 Units at 03/03 132 metFORMIN (GLUCOPHAGE) tablet 500 mg 500 mg, PO, 2 x Daily with Meals Last Action: Given, 500 mg at 03/03 934 QUEtiapine (SEROquel) tablet 600 mg 600 mg, PO, Nightly Last Action: Given, 600 mg at 03/02 2110 tamsulosin (FLOMAX) capsule 0.4 mg 0.4 mg, PO, Daily Last Action: Given, 0.4 mg at 03/03 934 PRN acetaminophen (TYLENOL) tablet 650 mg 650 mg, PO, Q6H PRN Last Action: Ordered clonazePAM (KLONOPIN) tablet 0.5 mg 0.5 mg, PO, Daily PRN Last Action: Ordered dextrose 50 % IV solution 25 mL 25 mL, IV, PRN Last Action: Ordered glucagon (human recombinant) (GLUCAGEN) injection 1 mg 1 mg, IM, PRN Last Action: Ordered glucose (GLUTOSE) 40 % oral gel 15 g 15 g, PO, PRN Last Action: Ordered hydrOXYzine (ATARAX) tablet 50 mg 50 mg, PO, Q6H PRN Last Action: Ordered nicotine (NICORETTE) lozenge 2 mg 2 mg, MT, Q2H PRN Last Action: Ordered Discharge planning: Per treatment team Other: NA Associated attestation - Marysol Toney MD - 03/04/2021 11:20 AM EDT I agree with the plan and course of action * Leon Mckeon PA - 03/03/2021 12:18 PM EDT Medical Admission H&P to Behavioral Health (5W) PCP Dalila Parker, SHELBIE HPI Mr Jose L Lam is a 50 yo male admitted to inpatient psychiatry from [facility] due to acute pscyhosis with hx of schizophrenia. PMH consist of DM, Hepat itis C, BPH, alcoholic pancreatitis and paranoid schizophrenia. Patient currentl y has no acute medical concerns or questions at this time. PMH Past Medical History: Diagnosis Date Alcohol abuse Diabetes mellitus Hep C w/o coma, chronic Pancreatitis, alcoholic Paranoid schizophrenia PSH Past Surgical History: Procedure Laterality Date INCISION AND DRAINAGE / EXCISION THYROGLOSSAL CYST MEDS No current facility-administered medications on file prior to encounter. Current Outpatient Medications on File Prior to Encounter Medication Sig Dispense Refill GLIPIZIDE XL 2.5 MG 24 hr tablet haloperidol (HALDOL) 10 MG tablet insulin regular (HUMULIN R) 100 UNIT/ML injection Inject into the skin T hree times daily before meals. Sliding scale insulin metformin (GLUCOPHAGE-XR) 500 MG 24 hr tablet quetiapine (SEROQUEL) 100 MG tablet trazodone (DESYREL) 100 MG tablet ALLERGIES Allergies Allergen Reactions Haldol [Haloperidol] Risperdal [Risperidone] hives SOCIAL HISTORY Social History Socioeconomic History Marital status: Single Spouse name: Not on file Number of children: 2 Years of education: Not on file Highest education level: Not on file Occupational History Employer: UNEMPLOYED Tobacco Use Smoking status: Current Every Day Smoker Packs/day: 0.25 Years: 35.00 Pack years: 8.75 Smokeless tobacco: Never Used Vaping Use Vaping Use: Never used Substance and Sexual Activity Alcohol use: Not Currently Alcohol/week: 0.0 standard drinks Drug use: Not Currently Sexual activity: Not Currently Other Topics Concern Not on file Social History Narrative Not on file Social Determinants of Health Financial Resource Strain: Difficulty of Paying Living Expenses: Food Insecurity: Worried About Running Out of Food in the Last Year: Ran Out of Food in the Last Year: Transportation Needs: Lack of Transportation (Medical): Lack of Transportation (Non-Medical): Physical Activity: Days of Exercise per Week: Minutes of Exercise per Session: Stress: Feeling of Stress : Social Connections: Frequency of Communication with Friends and Family: Frequency of Social Gatherings with Friends and Family: Attends Bahai Services: Active Member of Clubs or Organizations: Attends Club or Organization Meetings: Marital Status: Intimate Partner Violence: Fear of Current or Ex-Partner: Emotionally Abused: Physically Abused: Sexually Abused: FAMILY HISTORY family history includes Diabetes in his mother. Review of Systems Constitutional: Negative. HENT: Negative. Respiratory: Negative. Cardiovascular: Negative. Gastrointestinal: Negative. Endocrine: Negative. Genitourinary: Negative. Musculoskeletal: Negative. Neurological: Negative. Physical Exam: Visit Vitals BP 100/54 (BP Location: Left arm, Patient Position: Lying) Pulse 84 Temp 36.6 C (97.9 F) (Oral) Resp 16 SpO2 97% General: A+OX3, NAD, WDWN. HEENT: NCAT. Mucous membranes are moist. Sclera anicteric. CARDIAC: S1 and S2. No M/R/G, RRR. RESPIRATORY: CTA BL. Good air entry. No rales, rhonchi, wheezing. ABDOMEN: Soft, nondistended, nontender. No guarding or rebound. Positive bowel s ounds. EXTREMITIES: Adequate pulses, no erythema or edema. NEURO: No focal deficits, CN II-XII grossly intact SKIN: No rashes, lesions or abrasions noted. DATA REVIEW Laboratory Data No results for input(s): WBC, RBC, HGB, HCT, PLT, NEUTOPHILPCT, MONOPCT in the l ast 168 hours. Invalid input(s): EOSPCT No results for input(s): NA, K, CL, BICARBONATE, CALCIUM, GLUCOSE, BUN, CREATINI NE, BCR, LABOSMO, PROT, ALBUMIN, TBILI, ALKPHOS, AST, ALT, AGGREGATE, AGRATIO in the last 168 hours. No results found for: CKTOTAL, CKMB, CKMBINDEX, TROPONINI ASSESSMENT: Mr. Jose L Lam is a 50 y.o. year old male who is here for Principal Problem: Psychosis, paranoid Active Problems: Type 2 diabetes mellitus without complication, without long-term current use o f insulin Benign prostatic hyperplasia without lower urinary tract symptoms PLAN Principal Problem: Psychosis, paranoid Continue inpatient evaluation on 5W. Patient currently has no acute medical conc erns or questions at this time. Active Problems: Type 2 diabetes mellitus without complication, without long-term current use o f insulin BS stable, continue metformin and glipizide. HgA1c ordered. Benign prostatic hyperplasia without lower urinary tract symptoms Continue Flomax. DVT Prophylaxis with ambulation. Dietary Orders (From admission, onward) Start Ordered 03/02/211901 Diet Adult; Modified; Consistent Carbohydrate; Adult-Moderate D IET EFFECTIVE NOW Question Answer Comment Age Adult Diet Modified Modifier Consistent Carbohydrate Consistent Carbohydrate Adult-Moderate 03/02/21 190 Code status: full code. ~~~ Leon Mckeon PA Hospital Medicine/Psychiatry [facility] 03/03/2021 Counseling and Coordination of Care: Time was a significant factor with this pat ient encounter. Total time spent with patient was 45 minutes. Marysol Toney MD Associated attestation - Marysol Toney MD - 03/04/2021 11:20 AM EDT I agree with the plan and course of action documented in this encounter Miscellaneous Notes * Plan of Care - Nahed Mccollum RN - 03/06/2021 2:10 PM EDT Pt received in his room. Awakened for FS. Mood "groggy." affect congruent. Pleas ant and cooperative upon approach. Pt denies SI and HI. Does not appear to be re sponding to internal stimuli. He is eating and drinking well. Pt reports having a BM. DISCHARGE SUMMARY NOTE: Pt discharged per order. Verbalizes comprehension with d ischarge instructions, aware of upcoming appts, and has emergency phone numbers. Pt did call his case resolution specialist. Verbalizes having all of his belongings. * Plan of Care - Dunia Lane LCSW - 03/06/2021 10:03 AM EDT Problem: Discharge Planing Goal: Inpatient or Outpatient Follow-up Outcome: Education Complete/Goal Met Goal: Patient will identify current and/or prospective inpatient/outpatient pro viders Outcome: Education Complete/Goal Met Note: Jose L identified psychiatrist and therapist as current inpatient/outpatie nt providers and psychiatrist and therapist as prospective inpatient/outpatient providers. * Plan of Care - Reece Hou RN - 03/05/2021 10:12 PM EDT Problem: Psychosis Goal: Reduce or eliminate psychotic symptoms Outcome: Progressing Goal: Patient will comply with medication regimen Description: Patient will work with staff to learn about his medications; baclo fen, 10 mg, BID benztropine, 1 mg, BID gabapentin, 600 mg, TID haloperidol, 10 mg, TID insulin glargine, 24 Units, Nightly [START ON 03/03/2021] insulin lispro, 1-8 Units, 3 x Daily with Meals [START ON 03/03/2021] metFORMIN, 500 mg, 2 x Daily with Meals QUEtiapine, 600 mg, Nightly [START ON 03/03/2021] tamsulosin, 0.4 mg, Daily acetaminophen (TYLENOL) tablet 650 mg Q6H PRN, clonazePAM 0.5 mg Daily PRN, dex trose 25 mL PRN, glucagon (human recombinant) 1 mg PRN, glucose 15 g PRN, hydrOX Yzine 50 mg Q6H PRN, nicotine 2 mg Q2H PRN Outcome: Progressing Goal: Patient will converse with staff for at least 2 minutes without being dist racted by interference from internal stimuli Outcome: Progressing Goal: Patient will not act on psychotic perceptions Outcome: Progressing Problem: Glucose Imbalance Goal: Clinical indication of glucose balance is achieved Outcome: Progressing * Plan of Care - Dunia Lane LCSW - 03/05/2021 2:22 PM EDT Problem: Discharge Planing Goal: Inpatient or Outpatient Follow-up Outcome: Progressing Goal: Patient will identify current and/or prospective inpatient/outpatient pro viders Outcome: Progressing Note: Jose L identified psychiatrist and therapist as current inpatient/outpatie nt providers and psychiatrist and therapist as prospective inpatient/outpatient providers. * Assessment - Dunia Lane LCSW - 03/05/2021 2:12 PM EDT Social Work Psychosocial Assessment - Initial Patient Name: Jose L Lam Pronoun he/him/his Date of : 1970 County of Residence: [place] Admitting Dx: Psychosis, paranoid [F22] Admitting Provider: Titus Blanco MD Referral Type: Psych Referral Source: 5W Admission Reason for Referral: Substance Use/Abuse Date: March 05, 2021 Emergency Contacts Name: Contacts,none Relationship: Other Address: Home: [address] [place] [address] Work: Mobile: Primary Caregiver: self Informant(s): Patient Authorized to Consent: unknown Patient's Description of the Problem Patient reports he does not know why he was admitted as he went to the ED [place] of his blood sugar Family's/Guardian's Description of the Problem Not assessed Precipitating Events Use of cocaine Family Constellation and Support System Jose L is Single. He describes his family as stable Jose L's support system consists of immediate family, siblings, child/children Living Situation Living Situation: Apartment Lives With: Alone Can you return after discharge? Yes Patient just recently relocated to a new apartment Socioeconomic History Financial Resource Strain: Difficulty of Paying Living Expenses: Food Insecurity: Worried About Running Out of Food in the Last Year: Ran Out of Food in the Last Year: Transportation Needs: Lack of Transportation (Medical): Lack of Transportation (Non-Medical): Education Not currently in school/taking classes Educational Assistance Special Services Barriers to Learning Learns Best By Highest Level of Education Completed Communication Associate degree: occupational, technical, or vocational program Employment Disability Financial Health Insurance: Payor: [employer] [employer] / Plan: [facility] [employer] [id number] / Product Type: *No Product type* / SSI /Service Experience Patient denies Sexual Orientation and Gender Identity Gender Identity Preferred Pronoun Male he/him/his Sexual Orientation Straight (not lesbian or sanchez) Current and Past Significant Relationships Pertinent Development Events Patient denies Health History Including Hospitalizations and Surgeries Jose L has a past medical history of Alcohol abuse, Diabetes mellitus, Hep C w/ o coma, chronic, Pancreatitis, alcoholic, and Paranoid schizophrenia. He has a past surgical history that includes Incision and drainage / excision thyroglossa l cyst. Developmental Disabilities Patient denies Hobbies and Leisure Yes, patient reports hobbies and leisure activities Spending time with his cats Spiritual, Cultural, Bahai Yes, patient reports spiritual, cultural, and/or holiness beliefs Other Day Hoahaoism Childhood/Peer Relationships Yes, patient reports childhood/peer realationships Patient's father is a loss prevention supervisor. He is close with his brother and has a son, daught er, nephews and nieces. Abuse and Neglect Childhood? Patient denies childhood abuse/neglect Adulthood? Patient denies adulthood abuse/neglect Perpetrator? Patient denies perpetrating abuse/neglect Trauma History Patient denies Sex Offenses Patient denies Legal Issues Patient denies Substance Use Disorder or Dependency Yes, patient reports substance use Substances Substance Amount/Frequency Route Details/Duration/Last Used Other ICE Used just prior to admission Current Mental Health Symptoms (last two weeks) Mental Health History Yes, patient reports mental health history Psych treatment compliant? Yes Psych Diagnoses Diagnosis Age/Date of Dx Diagnosed By Treatment Setting Treatment History/Comme nts Schizophrenia Medications elvira Esparza Patient [facility] currently receives services from outpatient mental health. Agency/Resource [facility] [facility] [phone] Patient/agent was informed of the choice and offered a written list for facility , home care agency, durable medical equipment, provider or hospice for the [facility] in which the patient resides or as requested by the patient/agent; th e patient/agent accepted list. Individual Strengths Individual Opportunities Stable housing, income, insurance Address substance use issues Family Strengths Family Opportunities Supportive Not assessed Clinical Impression/Assessment/Summary (addressing DSM-5 and CPT codes) SW met with patient with the treatment team to complete a psychosocial assessmen t. Patient is clear and coherent and reports that he gets his services at the [facility] and would like to be discharged. Patient reports being strongly connec jaylyn with his case resolution specialist Nataliia Harris ([phone]) and also has good famil y supports. He reported using "ice" and did not like how it made him feel and h e would not do it again. He is asking for a referral to an Information Security Director which SW passed on to the case resolution specialist. SW will get him an appointment with the [facility] clinic and he will be discharged on 03/06/2021 Treatment Plan Stabilize on medication and group therapy Goals and Objectives Develop a plan to stay stable in the community Interventions Completed psychosocial assessment. Assessed for SW needs. Length of visit with patient: 60 minutes Signature: Dunia Lane Date: March 05, 2021 * Plan of Care - Nahed Mccollum RN - 03/05/2021 11:53 AM EDT Pt resting in his room at the start of the shift. It took several attempts at ca lling pt's name to wake him from sleep. He is pleasant and cooperative. Pt ate 1 00% of breakfast. He is alert and oriented to person, place, and time. Denies SI , HI, and AVH. Observed ambulating in hallways. Did observe police cars out fron t of [facility] and asked where they were from. Pt says he is leaving tomorrow and when asked said his case resolution specialist spoke to our long term care social worker about his cat. He i s eating and drinking well and had a BM. Continue to monitor pt closely. * Plan of Care - Evelina Matrinez RN - 03/04/2021 4:53 PM EDT Problem: Psychosis Goal: Reduce or eliminate psychotic symptoms Outcome: Progressing Goal: Patient will comply with medication regimen Description: Patient will work with staff to learn about his medications; baclo fen, 10 mg, BID benztropine, 1 mg, BID gabapentin, 600 mg, TID haloperidol, 10 mg, TID insulin glargine, 24 Units, Nightly [START ON 03/03/2021] insulin lispro, 1-8 Units, 3 x Daily with Meals [START ON 03/03/2021] metFORMIN, 500 mg, 2 x Daily with Meals QUEtiapine, 600 mg, Nightly [START ON 03/03/2021] tamsulosin, 0.4 mg, Daily acetaminophen (TYLENOL) tablet 650 mg Q6H PRN, clonazePAM 0.5 mg Daily PRN, dex trose 25 mL PRN, glucagon (human recombinant) 1 mg PRN, glucose 15 g PRN, hydrOX Yzine 50 mg Q6H PRN, nicotine 2 mg Q2H PRN Outcome: Progressing * Plan of Care - Nahed Mccollum RN - 03/04/2021 3:59 PM EDT Pt isolative to room. When first approached mood "fine." affect guarded, dismiss malu, and avoidant. Pt did eat breakfast. Later pt approached and was much conver sational. Alert and oriented to person, place, and time. Pt denies SI, Hi, and A VH. He is asking to go home. Pt says he has 29 cats and of them is locked in the basement. Pt says he can call his case resolution specialist and apparently he mentioned this yesterday. Pt understands he needs to stay and was cooperative. Pt given a [facility] her of diet gingerale and drank it all. He is c/o tingling in his feet and was e ncouraged to make positional changes slowly. Continue to monitor pt closely. * Plan of Care - Susy Maloney RN - 03/03/2021 12:58 PM EDT Problem: Psych Acuity Scoring Goal: Acuity Scoring Description: Acuity Scoring for Psych Outcome: Progressing Problem: Psychosis Goal: Reduce or eliminate psychotic symptoms Outcome: Progressing Goal: Patient will comply with medication regimen Description: Patient will work with staff to learn about his medications; baclo fen, 10 mg, BID benztropine, 1 mg, BID gabapentin, 600 mg, TID haloperidol, 10 mg, TID insulin glargine, 24 Units, Nightly [START ON 03/03/2021] insulin lispro, 1-8 Units, 3 x Daily with Meals [START ON 03/03/2021] metFORMIN, 500 mg, 2 x Daily with Meals QUEtiapine, 600 mg, Nightly [START ON 03/03/2021] tamsulosin, 0.4 mg, Daily acetaminophen (TYLENOL) tablet 650 mg Q6H PRN, clonazePAM 0.5 mg Daily PRN, dex trose 25 mL PRN, glucagon (human recombinant) 1 mg PRN, glucose 15 g PRN, hydrOX Yzine 50 mg Q6H PRN, nicotine 2 mg Q2H PRN Outcome: Progressing Goal: Patient will verbalize a reduction in psychotic symptoms Description: Reduce internal stimuli from auditory hallucinations Outcome: Progressing Goal: Patient will converse with staff for at least 2 minutes without being dist racted by interference from internal stimuli Outcome: Progressing Goal: Patient will not act on psychotic perceptions Outcome: Progressing Problem: Glucose Imbalance Goal: Clinical indication of glucose balance is achieved Outcome: Progressing Goal: Patient's discharge needs are met Outcome: Progressing * Treatment Plan - Evelina Martinez RN - 03/02/2021 7:44 PM EDT Psychiatric Treatment Plan Patient Jose L Lam 1970 Admit Date 03/02/2021 Treatment Plan Treatment Plan (Active) Problem: Psych Acuity Scoring Dates: Start: 03/02/21 Goal: Acuity Scoring Dates: Start: 03/02/21 Description: Acuity Scoring for Psych Problem: Psychosis Dates: Start: 03/02/21 Description: As evidenced by delusions and bizarre behavior Goal: Reduce or eliminate psychotic symptoms Dates: Start: 03/02/21 Expected End: 03/09/21 Goal: Patient will comply with medication regimen Dates: Start: 03/02/21 Expected End: 03/09/21 Description: Patient will work with staff to learn about his medications; bacl ofen, 10 mg, BID benztropine, 1 mg, BID gabapentin, 600 mg, TID haloperidol, 10 mg, TID insulin glargine, 24 Units, Nightly [START ON 03/03/2021] insulin lispro, 1-8 Units, 3 x Daily with Meals [START ON 03/03/2021] metFORMIN, 500 mg, 2 x Daily with Meals QUEtiapine, 600 mg, Nightly [START ON 03/03/2021] tamsulosin, 0.4 mg, Daily acetaminophen (TYLENOL) tablet 650 mg Q6H PRN, clonazePAM 0.5 mg Daily PRN, dex trose 25 mL PRN, glucagon (human recombinant) 1 mg PRN, glucose 15 g PRN, hydrOX Yzine 50 mg Q6H PRN, nicotine 2 mg Q2H PRN Intervention: Staff will offer medications as scheduled Frequency: Q Shift Dates: Start: 03/02/21 Description: Nurse on shift will document patient's acceptance and response to medications Intervention: Staff will identify the need for PRN medication Frequency: PRN Dates: Start: 03/02/21 Description: RN on shift will encourage patient to identify symptoms of increas ed agitation/irritability requiring medications Goal: Patient will verbalize a reduction in psychotic symptoms Dates: Start: 03/02/21 Expected End: 03/09/21 Description: Reduce internal stimuli from auditory hallucinations Intervention: Staff will initiate reality based interactions Frequency: Daily Dates: Start: 03/02/21 Description: Nurse will provide re-assurance and orient patient to reality Intervention: Staff will encourage patient to attend groups to help provide dis traction Frequency: Daily Dates: Start: 03/02/21 Description: Patient should attend stress management group, relaxation group, c ommunication group, and social work group Goal: Patient will converse with staff for at least 2 minutes without being dis tracted by interference from internal stimuli Dates: Start: 03/02/21 Expected End: 03/09/21 Intervention: Staff will initiate conversation and document Frequency: Q Shift Dates: Start: 03/02/21 Description: Nurse will assess patient's ability to carry on a conversation wit hout responding to internal stimuli Goal: Patient will not act on psychotic perceptions Dates: Start: 03/02/21 Expected End: 03/09/21 Intervention: Staff will maintain a safe and therapeutic environment Frequency: Q Shift Dates: Start: 03/02/21 Intervention: Staff will assist patient with interpersonal communication and in terpretation of events Frequency: Q Shift Dates: Start: 03/02/21 Description: Nurse on shift will monitor patient's interactions with peers Intervention: Staff will assess patient's behavior Frequency: Q Shift Dates: Start: 03/02/21 Description: Nurse will assess and document patient's behavior Treatment Plan (Resolved) There are no resolved problems. Treatment Team: Attending Provider: Marysol Toney MD; Registered Nurse: Evelina Maritnez RN I have reviewed and agree that the above treatment plan is appropriate for Vladislav Lam. Signature: Evelina Martinez Date: March 02, 2021 7:45 PM Associated attestation - Marysol Toney MD - 03/03/2021 1:10 PM EDT I agree with the plan and course of action documented in this encounter Plan of Treatment Order Schedule Name Type Priority Associated Diag noses Continuous for 30 Days for 30 Days start ing 03/02/2021 until 03/02/2021 Consult to Assisted PET Rehab Routine Therapy-Rehab/Psych 4X Daily (AC & HS) for 30 Days starting 03/04/2021 until 04/02/2021, 9 completed Glucose Monitoring Point of Care Routine Fingerstick ACHS Testing-Docked Device Health Maintenance Due Date Last Done Comments MMR Vaccines (1 of 1 - 1969 Standard series) Varicella Vaccines (1 of 1969 2 - 2-dose childhood series) Pneumococcal Vaccine: 65+ 1974 Years (1 of 2 - PPSV23) Pneumococcal Vaccine: 1974 Pediatrics (0 to 5 Years) and At-Risk Patients (6 to 64 Years) (1 of 2 - PPSV23) DTaP,Tdap,and Td Vaccines 10/10/1975 (1 - Tdap) Diabetic Foot Exam 1986 Dilated Retinal Exam 1986 Urine Microalbumin 1986 Hepatitis B Vaccines (1 10/10/1987 of 3 - Risk 3-dose series) Colon Cancer Screening 10 2018 yrs Hemoglobin A1c 03/06/2021 09/03/2020 Influenza Vaccine 03/29/2021 Lipid Disorder Screening 09/03/2021 09/03/2020 HIV Screening Completed 08/16/2015, 01/04/2014 HIB Vaccines Aged Out No longer eligible based on patient's age to complete this topic Hepatitis A Vaccines Aged Out No longer eligibl e based on patient's age to complete this topic IPV Vaccines Aged Out No longer eligible based on patient's age to complete this topic documented as of this encounter Procedures Comments Procedure Name Priority Date/Time Associated Diag nosis POCT GLUCOSE, DOCKED Routine 03/06/2021 8:54 AM EDT POCT GLUCOSE, DOCKED Routine 03/05/2021 9:20 PM EDT POCT GLUCOSE, DOCKED Routine 03/05/2021 5:21 PM EDT POCT GLUCOSE, DOCKED Routine 03/05/2021 12:47 PM EDT POCT GLUCOSE, DOCKED Routine 03/05/2021 8:44 AM EDT POCT GLUCOSE, DOCKED Routine 03/04/2021 8:49 PM EDT POCT GLUCOSE, DOCKED Routine 03/04/2021 5:12 PM EDT POCT GLUCOSE, DOCKED Routine 03/04/2021 12:47 PM EDT POCT GLUCOSE, DOCKED Routine 03/04/2021 8:38 AM EDT POCT GLUCOSE, DOCKED Routine 03/03/2021 8:59 PM EDT POCT GLUCOSE, DOCKED Routine 03/03/2021 5:37 PM EDT POCT GLUCOSE, DOCKED Routine 03/03/2021 12:42 PM EDT POCT GLUCOSE, DOCKED Routine 03/03/2021 8:50 AM EDT POCT GLUCOSE, DOCKED Routine 03/02/2021 8:10 PM EDT documented in this encounter Results * POCT glucose, docked (03/06/2021 8:54 AM EDT) POC Glucose 152 (H) 70 - 140 mg/dL [facility] POC Specimen Whole Blood Performing Organization Address City/State/ZIP Code P mando Number POINT OF CARE TEST [address] [place] [address] [facility] POC [address] [place], [place] [address] * POCT glucose, docked (03/05/2021 9:20 PM EDT) POC Glucose 208 (H) 70 - 140 mg/dL [facility] POC Specimen Whole Blood Performing Organization Address City/State/ZIP Code P mando Number POINT OF CARE TEST [address] [place] [address] [facility]OC [address] [place], [place] [address] * POCT glucose, docked (03/05/2021 5:21 PM EDT) POC Glucose 142 (H) 70 - 140 mg/dL [facility] [place] POC Specimen Whole Blood Performing Organization Address City/State/ZIP Code P mando Number POINT OF CARE TEST [address] [place] [address] [facility] [place] [facility] [address] [place], [place] [address] * POCT glucose, docked (03/05/2021 12:47 PM EDT) POC Glucose 177 (H) 70 - 140 mg/dL [facility] [place] POC Specimen Whole Blood Performing Organization Address City/State/ZIP Code P mando Number POINT OF CARE TEST [address] [place] [address] [facility] [place] [facility] [address] [place], [place] [address] * POCT glucose, docked (03/05/2021 8:44 AM EDT) POC Glucose 135 70 - 140 mg/dL [facility] POC Specimen Whole Blood Performing Organization Address City/[facility]/ZIP Code P mando Number POINT OF CARE TEST [address] [place] [address] [facility] [place] [facility] [address] [place], [place] [address] * POCT glucose, docked (03/04/2021 8:49 PM EDT) POC Glucose 150 (H) 70 - 140 mg/dL [facility] [place] POC Specimen Whole Blood Performing Organization Address City/[facility]/ZIP Code P mando Number POINT OF CARE TEST [address] [place] [address] [facility] [place] [facility] [address] [place], [place] [address] * POCT glucose, docked (03/04/2021 5:12 PM EDT) POC Glucose 171 (H) 70 - 140 mg/dL [facility] [place] POC Specimen Whole Blood Performing Organization Address City/State/ZIP Code P mando Number POINT OF CARE TEST [address] [place] [address] [facility] [place] [facility] [address] [place], [place] [address] * POCT glucose, docked (03/04/2021 12:47 PM EDT) POC Glucose 157 (H) 70 - 140 mg/dL [facility] [place] POC Specimen Whole Blood Performing Organization Address City/State/ZIP Code P mando Number POINT OF CARE TEST [address] [place] [address] [facility] [place] [facility] [address] [place], [place] [address] * POCT glucose, docked (03/04/2021 8:38 AM EDT) POC Glucose 102 70 - 140 mg/dL [facility] [place] [facility] Specimen Whole Blood Performing Organization Address City/State/ZIP Code P mando Number POINT OF CARE TEST [address] [place] [address] [facility] [place] [facility] [address] [place], [place] [address] * POCT glucose, docked (03/03/2021 8:59 PM EDT) POC Glucose 104 70 - 140 mg/dL [facility] [place] [facility] Specimen Whole Blood Performing Organization Address City/State/ZIP Code P mando Number POINT OF CARE TEST [address] [place] [address] [facility] [place] [facility] [address] [place], [place] [address] * POCT glucose, docked (03/03/2021 5:37 PM EDT) POC Glucose 101 70 - 140 mg/dL [facility] [place] [facility] Specimen Whole Blood Performing Organization Address City/State/ZIP Code P mando Number POINT OF CARE TEST [address] [place] [address] [facility] [place] [facility] [address] [place], [place] [address] * POCT glucose, docked (03/03/2021 12:42 PM EDT) POC Glucose 261 (H) 70 - 140 mg/dL [facility] [place] POC Specimen Whole Blood Performing Organization Address City/[facility]/ZIP Code P mando Number POINT OF CARE TEST [address] [place] [address] [facility] [place] [facility] [address] [place], [place] [address] * POCT glucose, docked (03/03/2021 8:50 AM EDT) POC Glucose 211 (H) 70 - 140 mg/dL [facility] [place] POC Specimen Whole Blood Performing Organization Address City/State/ZIP Code P mando Number POINT OF CARE TEST [address] [place] [address] [facility] [place] [facility] [address] [place], [place] [address] * POCT glucose, docked (03/02/2021 8:10 PM EDT) POC Glucose 145 (H) 70 - 140 mg/dL [facility] [place] POC Specimen Whole Blood Performing Organization Address City/State/ZIP Code P mando Number POINT OF CARE TEST [address] [place] [address] [facility] [address] [facility] [place], [place] [address] documented in this encounter Visit Diagnoses Diagnosis Psychosis, paranoid - Primary Delusional disorder Type 2 diabetes mellitus without compli cation, without long-term current use of insulin Benign prostatic hyperplasia without lo wer urinary tract symptoms documented in this encounter Administered Medications Action Date Dose Rate Site Medication Order MAR Action 03/06/2021 9:34 AM EDT 10 mg baclofen (LIORESAL) tablet 10 mg Given 10 mg, Oral, 2 Times Daily, First dose on 03/02/21 at 2100, For 30 days 10 mg Given 03/05/2021 9:10 PM EDT 10 mg Given 03/05/2021 9:11 AM EDT 03/06/2021 9:34 AM EDT 1 mg benztropine (COGENTIN) tablet 1 mg Given 1 mg, Oral, 2 Times Daily, First dose o n 03/02/21 at 2100, For 30 days 1 mg Given 03/05/2021 9:10 PM EDT 1 mg Given 03/05/2021 9:11 AM EDT 03/05/2021 9:17 PM EDT 0.5 mg clonazePAM (KLONOPIN) tablet 0.5 mg Given 0.5 mg, Oral, Daily PRN, anxiety, Starting on 03/02/21 at 1912, For 30 days dextrose 50 % IV solution 25 mL 25 mL, Intravenous, PRN, Other, blood glucose <55, Starting on 03/02/21 at 1912, For 30 days, Not for midline administration. 03/06/2021 9:34 AM EDT 600 mg gabapentin (NEURONTIN) capsule 600 mg Given 600 mg, Oral, Three Times Daily Standard, Indications: Fibromyalgia Syndrome, First dose on 03/02/21 at 2100, For 30 days 600 mg Given 03/05/2021 9:18 PM EDT 600 mg Given 03/05/2021 2:26 PM EDT glucagon (human recombinant) (GLUCAGEN) injection 1 mg 1 mg, Intramuscular, PRN, for glucose <55 without IV access, Starting on 03/02/21 at 1912, For 30 days glucose (GLUTOSE) 40 % oral gel 15 g 15 g, Oral, PRN, Low blood sugar, for gluose 55-69 mg/dl and able to take PO, Starting on 03/02/21 at 1912, For 30 days 03/06/2021 9:34 AM EDT 10 mg haloperidol (HALDOL) tablet 10 mg Given 10 mg, Oral, Three Times Daily Standard, First dose on 03/02/21 at 2100, For 30 days 10 mg Given 03/05/2021 9:10 PM EDT 10 mg Given 03/05/2021 2:26 PM EDT 03/05/2021 9:17 PM EDT 50 mg hydrOXYzine (ATARAX) tablet 50 mg Given 50 mg, Oral, Every 6 hours PRN, Anxiety, Sleep, Starting on 03/02/21 at 1902, For 30 days 03/05/2021 10:20 PM EDT 24 Units insulin glargine (LANTUS) injection 24 Given Units 24 Units, Subcutaneous, Nightly, First dose on 03/02/21 at 2200, For 30 days , For blood glucose less than 70 mg/dL: follow hypoglycemia protocol ( ) and notify provider. For blood glucose values between 70 mg/dL and 100 mg/dL a t bedtime: provide snack (15 grams of carbohydrates) with some protein. Administer FULL DOSE of insulin glargin e (LANTUS) after snack. Record snack in I&O's. For blood glucose more than 40 0 mg/dL: notify provider 24 Units Given 03/04/2021 9:01 PM EDT 24 Units Given 03/03/2021 9:08 PM EDT 03/06/2021 9:36 AM EDT 4 Units Left Arm insulin lispro (HumaLOG) injection LOW Given DOSE EATING INSULIN patients 1-8 Units 1-8 Units, Subcutaneous, Three Times Daily-With Meals, First dose on 03/03/21 at 0800, For 30 days, Nursing MUST open the 'SQ Insulin Dosing Charts ' Sidebar Report, or, the Patient Summary or Summary Report within the ED. 3 Units Given 03/05/2021 6:13 PM EDT 4 Units Right Arm Given 03/05/2021 1:30 PM EDT 03/06/2021 9:35 AM EDT 500 mg metFORMIN (GLUCOPHAGE) tablet 500 mg Given 500 mg, Oral, 2 Times Daily With Meals, Indications: Type 2 Diabetes Mellitus, First dose on 03/03/21 at 0900, For 3 0 days 500 mg Given 03/05/2021 6:15 PM EDT 500 mg Given 03/05/2021 9:13 AM EDT 03/04/2021 9:22 PM EDT 2 mg nicotine (NICORETTE) lozenge 2 mg Given 2 mg, Mouth/Throat, Every 2 hours PRN , Smoking cessation, Starting on 03/02/21 at 1902, For 30 days, Should not be chewed or swallowed; allow to dissolve slowly (~20-30 minutes) 03/05/2021 9:10 PM EDT 600 mg QUEtiapine (SEROquel) tablet 600 mg Given 600 mg, Oral, Nightly, First dose on Sa t 03/02/21 at 2200, For 30 days 600 mg Given 03/04/2021 9:09 PM EDT 600 mg Given 03/03/2021 9:09 PM EDT 03/06/2021 9:35 AM EDT 0.4 mg tamsulosin (FLOMAX) capsule 0.4 mg Given 0.4 mg, Oral, Daily Standard, First dose on 03/03/21 at 0900, For 30 days , Swallow whole. Do not crush, chew or open. 0.4 mg Given 03/05/2021 9:13 AM EDT 0.4 mg Given 03/04/2021 9:08 AM EDT documented in this encounter Active and Recently Administered Medications Times are shown in EDT. 03/05/2021 03/06/2021 Medication Order 03/04/2021910 (Given - Provider: Nahed Mccollum RN)2109 (Given - Provider: Reece Eldridge RN) 933 (Given - Provider: Nahed Mccollum RN)2099 (Due) baclofen (LIORESAL) tablet 10 mg 0908 (Given - 10 mg, Oral, 2 Times Daily, First dose Provider: Karen seymour on 03/02/21 at 2100, For 30 days Bryanna Engel LPN)2108 (Given - Provider: Khadra Cortez RN) 0911 (Given - Provider: Nahed Mccollum RN)2109 (Given - Provider: Reece Eldridge RN) 09 (Given - Provider: Nahed Mccollum RN)2099 (Due) benztropine (COGENTIN) tablet 1 mg 0908 (Given - 1 mg, Oral, 2 Times Daily, First dose on Provider: Alyse locke 03/02/21 at 2100, For 30 days Bryanna Engel LPN)2108 (Given - Provider: Khadra Cortez RN) 0912 (Given - Provider: Nahed Mccollum RN)142 (Given - Provider: Nahed Mccollum RN)2117 (Given - Provider: Reece Eldridge RN) 0934 (Given - Provider: Nahed Mccollum RN)1400 (Due)2099 (Due) gabapentin (NEURONTIN) capsule 600 mg 0908 (Given - 600 mg, Oral, Three Times Daily Provider: Annemarie Restrepo, Indications: Fibromyalgia Bryanna Engel LPN)1433 Syndrome, First dose on 03/02/21 at (Given - Provi nasreen: 2100, For 30 days Annemarie Engel LPN)2108 (Given - Provider: Khadra Cortez RN) 09 (Given - Provider: Nahed Mccollum RN)142 (Given - Provider: Nahed Mccollum RN)2109 (Given - Provider: Reece Elrdidge RN) 0934 (Given - Provider: Nahed Mccollum RN)1400 (Due)2099 (Due) haloperidol (HALDOL) tablet 10 mg 0908 (Given - 10 mg, Oral, Three Times Daily Provider: Annemarie Restrepo, First dose on 03/02/21 at Bryanna Engel LPN)14 33 2099, For 30 days (Given - Provider: Annemarie Engel LPN)2108 (Given - Provider: Khadra Cortez RN) 2219 (Given - Provider: Reece Eldridge RN) 2199 (Due) insulin glargine (LANTUS) injection 2100 (Given - Units Provider: Khadra 24 Units, Subcutaneous, Nightly, First Diego RN) dose on 03/02/21 at 2200, For 30 days , For blood glucose less than 70 mg/dL: follow hypoglycemia protocol ( H-) and notify provider. For blood glucose values between 70 mg/dL and 100 mg/dL a t bedtime: provide snack (15 grams of carbohydrates) with some protein. Administer FULL DOSE of insulin glargin e (LANTUS) after snack. Record snack in I&O's. For blood glucose more than 40 0 mg/dL: notify provider 0914 (Given - Provider: Nahed Mccollum RN)1330 (Given - Provider: Nahed Mccollum RN)1813 (Given - Provider: Reece Eldridge RN) 0936 (Given - Provider: Nahed Mccollum RN)1331 (Not Given - Provider: Nahed Mccollum RN - Reason: Patient/family refused)1800 (Due - Provider: Christopher Ellsworth RN) insulin lispro (HumaLOG) injection LOW 0906 (Given - DOSE EATING INSULIN patients 1-8 Units Provider: Karen seymour 1-8 Units, Subcutaneous, Three Times Bryanna Engel LPN)131 7 Daily-With Meals, First dose on Sun (Given - Provide r: 03/03/21 at 0800, For 30 days, Nursing Nahed Mccollum , MUST open the 'SQ Insulin Dosing Charts' RN)1808 (Gi kala - Sidebar Report, or, the Patient Summary Provider: Daryl montanez or Summary Report within the ED. JULIETTE Martinez) 0913 (Given - Provider: Nahed Mccollum RN)1815 (Given - Provider: Reece Eldridge RN) 0935 (Given - Provider: Nahed Mccollum RN)1800 (Due) metFORMIN (GLUCOPHAGE) tablet 500 mg 0908 (Given - 500 mg, Oral, 2 Times Daily With Meals, Provider: Anastasiya acevedo Indications: Type 2 Diabetes Mellitus, Bryanna Engel LPN)1 800 First dose on 03/03/21 at 0900, For 30 (Given - Pr ovider: days Evelina Martinez RN) 2110 (Given - Provider: Reece Eldridge RN) 2200 (Due) QUEtiapine (SEROquel) tablet 600 mg 2108 (Given - 600 mg, Oral, Nightly, First dose on Sat Provider: Dimitrios murphy 03/02/21 at 2200, For 30 days JULIETTE Cortez) 0913 (Given - Provider: Nahed Mccollum RN) 0935 (Given - Provider: Nahed Mccollum RN) tamsulosin (FLOMAX) capsule 0.4 mg 0908 (Given - 0.4 mg, Oral, Daily Standard, First Provider: Trisha contreras dose on 03/03/21 at 0900, For 30 days, Bryanna Engel LPN ) Swallow whole. Do not crush, chew or open. 03/05/2021 03/06/2021 Medication Order 03/04/2021 acetaminophen (TYLENOL) tablet 650 mg 650 mg, Oral, Every 6 hours PRN, All Levels of Pain (Pain Scale Score 1-10), Starting on [place] [facility] at 1902, For 30 days, Maximum daily dose of acetaminophen is 3,000 mg from all sources in 24 hrs. 2116 (Given - Provider: Reece Eldridge RN) clonazePAM (KLONOPIN) tablet 0.5 mg 0.5 mg, Oral, Daily PRN, anxiety, Starting on [facility] 03/02/21 at 1912, For 30 days dextrose 50 % IV solution 25 mL 25 mL, Intravenous, PRN, Other, blood glucose <55, Starting on [facility] 03/02/21 at 1912, For 30 days, Not for midline administration. glucagon (human recombinant) (GLUCAGEN) injection 1 mg 1 mg, Intramuscular, PRN, for glucose <55 without IV access, Starting on 03/02/21 at 1912, For 30 days glucose (GLUTOSE) 40 % oral gel 15 g 15 g, Oral, PRN, Low blood sugar, for gluose 55-69 mg/dl and able to take PO, Starting on 03/02/21 at 1912, For 30 days 2116 (Given - Provider: Reece Eldridge RN) hydrOXYzine (ATARAX) tablet 50 mg 50 mg, Oral, Every 6 hours PRN, Anxiety, Sleep, Starting on [facility] 03/02/21 at 1902, For 30 days nicotine (NICORETTE) lozenge 2 mg 2121 (Given - 2 mg, Mouth/Throat, Every 2 hours PRN, Provider: Dimitrios murphy Smoking cessation, Starting on [facility] JULIETTE Cortez) 03/02/21 at 1902, For 30 days, Should not be chewed or swallowed; allow to dissolve slowly (~20-30 minutes) documented in this encounter
--- OUTSIDE RECORDS SUMMARY | 2021-05-03 20:18 | CCD ---
Author Author Moris Jose L Ebony Organization Unknown Address [address] [address] Phone Care Team Providers Care Assistant Professor Of German Name Role Phone Ebony Subramanian PCP Allergies, Adverse Reactions, Alerts No Data in Section Problem List Concept Problem Description Status Start Date Created Date Resolv ed Date Snomed Code F20.0 Paranoid schizophrenia Active 02/04/2021 F10.20 Alcohol Use Disorder, Moderate Active 08/05/2018 08/05/19 19 Medications Rx Norm Medication Route Route Concept Start Date Stop Date Dosage Orion quency Duration Formula Strength Dosage Form Dosage Form Code Dosage Description Medication Id Account Npid Author First Name Author Last Name Taxonomy Code Taxonomy Desc Phone Number [phone] quetiapine by mouth [id number] 01/03/2021 02/02/2021 at bedtime 30 300 mg tablet 66592 [id number] Ebony Subramanian [id number] Nurse Stephanie sultana [phone] [id number] Klonopin by mouth [id number] 01/31/2021 02/15/2021 twice a day 15 0.5 mg tablet 19409 [id number] Ebony Subramanian [id number] Nurse Stephanie sultana [phone] [id number] benztropine by mouth [id number] 10/18/2020 03/04/2021 twice a day 30 1 mg tablet 17580 [id number] Ebony Subramanian [id number] Nurse Stephanie sultana [phone] [id number] haloperidol by mouth [id number] 11/15/2020 03/04/2021 three times a day 30 10 mg tablet 72939 [id number] Ebony Subramanian [id number] Nurse Practitioner [phone] [id number] gabapentin by mouth [id number] 01/03/2021 03/04/2021 three times a day 30 300 mg capsule 89584 228095 [id number] Ebonyayaan Subramanian [id number] Nurse Practitioner [phone] [id number] quetiapine by mouth [id number] 02/03/2021 03/05/2021 at bedtime 30 300 mg tablet 58997 [id number] Ebony Subramanian [id number] Nurse Stephanie sultana [phone] Social History Social History Element Description Concept Effective Date Smoking Status Unknown if ever smoked [id number] Immunizations No Data in Section Vital Signs No Data in Section Procedures Date Concept Id Description Targeted Site Concept Targeted Site Concept Type 01/31/2021 30053 E/M Level 3 - Established Patient CPT Patient has no history of implantable de vices Encounters Encounter Start Date End Date Encounter Type Description Diagnosis Di agnosis Desc Location Author First Name Author Last Name Npid Taxonomy Cod e Taxonomy Desc Phone Number Location Addr1 [address] [facility] Location [facility] Location Zip [id number] 01/31/2021 01/31/2021 70643 E/M Level 3 - Established Pa tient F20.0 Paranoid schizophrenia [facility] [phone] [id number] Nurse Practitioner [phone] [address] [address] Plan of Treatment No Data in Section Lab Results No Data in Section Instructions No Data in Section Functional Cognitive Status No Data in Section Insurance Providers Insurance Id Policy Effective Date Policy Thru Date Company N su [id number] [address]
--- OUTSIDE RECORDS SUMMARY | 2021-05-03 20:18 | CCD ---
Author Organization Unknown Address [address] [place] [address] Phone [phone] Care Team Providers Care Professor Of Rhetoric Name Role Phone GINETTE BIRCH 3 [phone] Allergies Code Code System Name Reaction Severity Status Onset NKDA Medications Name Status Start Date Stop Date acetaminophen 300 mg-codeine 30 mg table t TAKE ONE TABLET BY MOUTH THREE TIMES DAILY NEEDED FOR SEVERE pain MAX DAILY DOSE THREE TABLETS Completed 02/05/2021 Admelog U-100 Insulin lispro 100 unit/mL subcutaneous solution INJECT 10 UNITS SUBCUTANEOUSLY WITH A MEAL Active Not available amoxicillin 500 mg capsule Completed 02/05 BD Insulin Syringe Ultra-Fine 1 mL 30 ga uge x 1/2" use as directed to inject insulin five times a day ud Completed 02/05/2021 BD Ultra-Fine Mini Pen Needle 31 gauge x 3/16" USE DIRECTED with insulin pens Completed 02/05 benztropine 1 mg tablet TAKE ONE TABLET BY MOUTH TWICE DAILY Active No t available celecoxib 200 mg capsule Completed cephalexin 500 mg capsule Completed 2020 clonazepam 0.5 mg tablet Take by oral route for 15 days. Completed 021 gabapentin 300 mg capsule TAKE TWO CAPSULES [...] Completed meloxicam 15 mg tablet Completed metformin 850 mg tablet TAKE ONE TABLET BY MOUTH TWICE DAILY with meals Completed 02/05/2021 naltrexone 50 mg tablet Completed 02/06/20 nicotine (polacrilex) 2 mg gum CHEW ONE PIECE BY MOUTH EVERY 2 HOURS NEEDED Completed 02/05/2021 OneTouch Delica Plus Lancet 33 gauge Completed 02/05/2021 OneTouch Ultra Blue Test Strip Completed 0 02/05/2021 OneTouch Ultra Test strips ONE MISCELLANEOUS THREE TIMES A DAY NEEDED Completed 02/05/2021 OneTouch Ultra2 Meter USE DIRECTED TO TEST BLOOD SUGAR THREE TIMES DAILY Completed 02/05/2021 OneTouch Ultra2 Meter kit Completed 2020 pen needles mis [id number] Completed quetiapine 200 mg tablet TAKE ONE TABLET BY MOUTH EVERY EVENING Active Not available quetiapine 300 mg tablet Completed quetiapine 400 mg tablet TAKE ONE TABLET BY MOUTH EVERY EVENING Completed 02/05/2021 risperidone 4 mg tablet Completed 02/06/20 Steglatro 15 mg tablet Completed Steglatro 5 mg tablet Completed 02/05/2021 tamsulosin 0.4 mg capsule TAKE ONE CAPSULE BY MOUTH ONCE DAILY Active No t available tizanidine 2 mg tablet Completed Touvolodymyr SolRegla U-300 Insulin 300 unit/mL (1.5 mL) subcutaneous pen Active Not available tramadol 50 mg tablet Completed 02/05/2021 trazodone 100 mg tablet TAKE TWO TABLETS BY MOUTH AT BEDTIME Completed trazodone 50 mg tablet TAKE ONE TABLET BY MOUTH AT BEDTIME NEEDED Completed 02/05/2021 Vitamin D2 1,250 mcg (50,000 unit) capsule Completed 02/05/2021 Vitamin D3 50 mcg (2,000 unit) capsule Completed 02/05/2021 Zanaflex 4 mg tablet Take 1 tablet 3 times a day by oral route as needed. Active Not available Problems None recorded. Procedures Date Name Performed by 02/05/2021 MRI, Hip, W/o Contrast Information not a vailable 02/05/2021 MRI, Hip, W/o Contrast Information not a vailable 02/05/2021 MRI, Lumbar Spine, W/o Contrast Informat ion not available Results Lab Results None recorded. Past Encounters 02/05/2021 Pain of Left Hip Joint; Pain in Right Hip Joint; Lumbosacral Spondylosis without Myelopathy; Lumbar Radiculopathy; Greater Trochanteric Pain Syndrome of Left Lower Limb; Greater Trochanteric Pain Syndrome of Right Lower Limb; Inflammation of Sacroiliac Joint; Myofascial Pain Pipo Lara MD: [id number] [facility] [address], [place] [address], Ph. Social History Tobacco Smoking Status Light Tobacco Smoker (1 pack per week ) Notes: 3 cigars per day Vaccine List None recorded. Plan of Care Reminders Provider Appointments None recorded. Lab None recorded. Referral None recorded. Procedures None recorded. Surgeries None recorded. Imaging None recorded. Vitals Height Weight BMI Blood Pressure 5 ft 6 in 167.6 lbs 27.1 kg/m2 112/74 mm[Hg]
--- OUTSIDE RECORDS SUMMARY | 2021-05-03 20:18 | CCD ---
Author Organization Unknown Address [address] [place] [address] Phone [phone] Care Team Providers Care Hot Braider Name Role Phone GINETTE BIRCH 3 [phone] Allergies Code Code System Name Reaction Severity Status Onset NKDA Medications Name Status Start Date Stop Date acetaminophen 300 mg-codeine 30 mg table t TAKE ONE TABLET BY MOUTH THREE TIMES DAILY NEEDED FOR SEVERE pain MAX DAILY DOSE THREE TABLETS Completed 02/05/2021 Admelog U-100 Insulin lispro 100 unit/mL subcutaneous solution INJECT 10 UNITS SUBCUTANEOUSLY DIRECTED with meals Active Not available amoxicillin 500 mg capsule Completed 02/05 baclofen 10 mg tablet Take 1 tablet twice a day by oral route as needed. Active Not available BD Insulin Syringe Ultra-Fine [...] Completed 02/05/2021 naltrexone 50 mg tablet Completed 08/10/20 21 nicotine (polacrilex) 2 mg gum CHEW ONE PIECE BY MOUTH EVERY 2 HOURS NEEDED Completed 02/05/2021 OneTouch Delica Plus Lancet 33 gauge Completed 02/05/2021 OneTouch Ultra Blue Test Strip Completed 02/05/2021 OneTouch Ultra Test strips ONE MISCELLANEOUS THREE TIMES A DAY NEEDED Completed 02/05/2021 OneTouch Ultra2 Meter USE DIRECTED TO TEST BLOOD SUGAR THREE TIMES DAILY Completed 02/05/2021 OneTouch Ultra2 Meter kit Completed 2020 pen needles mis [id number] Completed quetiapine 200 mg tablet TAKE ONE [...] Performed by 02/05/2021 MRI, Hip, W/o Contrast [facility] [address] [place] [address] [phone] (Work Place) 02/05/2021 MRI, Hip, W/o Contrast [facility] [address] [place] [phone] (Work Place) 02/05/2021 MRI, Lumbar Spine, W/o Contrast [facility] [address] [place] [address] (Work Place) 02/28/2021 MRI, Lumbar Spine, W/o Contrast [facility] [address] [place], [place] [phone] (Work Place) Results Lab Results None recorded. Past Encounters 02/28/2021 Pain of Left Hip Joint; Pain in Right Hip Joint; Lumbosacral Spondylosis without Myelopathy; Lumbar Radiculopathy; Greater Trochanteric Pain Syndrome of Left Lower Limb; Greater Trochanteric Pain Syndrome of Right Lower Limb; Inflammation of Sacroiliac Joint; Myofascial Pain Luz Dallas NP: [id number] [address], [place] [address], Ph. 02/05/2021 Pain of Left Hip Joint; Pain in Right Hip Joint; Lumbosacral Spondylosis without Myelopathy; Lumbar Radiculopathy; Greater Trochanteric Pain Syndrome of Left Lower Limb; Greater Trochanteric Pain Syndrome of Right Lower Limb; Inflammation of Sacroiliac Joint; Myofascial Pain Pipo Lara MD: [id number] [facility], [place] [address], Ph. Social History Tobacco Smoking Status Light Tobacco Smoker (1 pack per week ) Notes: 3 cigars per day Vaccine List None recorded. Plan of Care Reminders Provider Appointments None recorded. Lab None recorded. Referral None recorded. Procedures None recorded. Surgeries None recorded. Imaging None recorded. Vitals 02/28/2021 02:15PM FOLLOW-UP Height Blood Pressure 5 ft 6 in 124/79 mm[Hg] 02/05/2021 09:00AM NEW PATIENT Height Weight BMI Blood Pressure 5 ft 6 in 167.6 lbs 27.1 kg/m2 112/74 mm[Hg]
--- OUTSIDE RECORDS SUMMARY | 2021-05-03 20:18 | CCD ---
Author Author Jose L Dunaway Organization Unknown Address [address] [address] Phone Care Team Providers Care Planning Intern Name Role Phone Emelyn Daylin PCP Allergies, Adverse Reactions, Alerts No Data in Section Problem List Concept Problem Description Status Start Date Created Date Resolv ed Date Snomed Code F20.0 Paranoid schizophrenia Active 02/28/2021 F10.20 Alcohol Use Disorder, Moderate Active 08/05/2018 08/05/19 19 Medications Rx Norm Medication Route Route Concept Start Date Stop Date Dosage Orion quency Duration Formula Strength Dosage Form Dosage Form Code Dosage Description Medication Id Account Npid Author First Name Author Last Name Taxonomy Code Taxonomy Desc Phone Number [phone] benztropine by mouth [id number] 10/18/2020 03/04/2021 twice a day 30 1 mg tablet 54455 [id number] [id number] Ebony Subramanian [id number] Nurse Stephanie sultana [phone] [id number] quetiapine by mouth [id number] 02/03/2021 03/05/2021 at bedtime 30 300 mg tablet 21774 [id number] Ebony Subramanian [id number] Nurse Stephanie sultana [phone] Klonopin by mouth [id number] 02/21/2021 03/08/2021 twice a day 15 0.5 mg tablet 30783 [id number] Ebony Subramanian [id number] Nurse Stephanie sultana [phone] [id number] gabapentin by mouth [id number] 01/03/2021 03/04/2021 three times a day 30 300 mg capsule 31398 [id number] Ebony Subramanian [id number] Nurse Practitioner [phone] [id number] haloperidol by mouth [id number] 11/15/2020 03/04/2021 three times a day 30 10 mg tablet 88596 [id number] [id number] Ebony Subramanian [id number] Nurse Practitioner [phone] Social History Social History Element Description Concept Effective Date Smoking Status Unknown if ever smoked [id number] Immunizations No Data in Section Vital Signs No Data in Section Procedures Date Concept Id Description Targeted Site Concept Targeted Site Concept Type 02/26/2021 37779 Brief Individual Psychotherapy - 30 min CPT Patient has no history of implantable de vices Encounters Encounter Start Date End Date Encounter Type Description Diagnosis Di agnosis Desc Location Author First Name Author Last Name Npid Taxonomy Cod e Taxonomy Desc Phone Number Location Addr1 Location Addr2 Location [facility] Location [facility] Location Zip [id number] 02/26/2021 02/26/2021 46205 Brief Individual Psychoth erapy - 30 min F20.0 Paranoid schizophrenia [facility] Emelyn Mao [phone] [id number] Fur Dressing Supervisor [phone] [address] [address] Plan of Treatment No Data in Section Lab Results No Data in Section Instructions No Data in Section Insurance Providers Insurance Id Policy Effective Date Policy Thru Date Company N su [id number] 2017 [id number]
--- OUTSIDE RECORDS SUMMARY | 2021-05-03 20:20 | CCD ---
Author Author [facility] Organization [facility] Address Unknown Phone Unavailable Care Team Providers Care Fork Operator Name Role Phone Rio Irizarry MD Unavailable Unavailable Rio Irizarry MD Unavailable Unavailable Rio Irizarry MD Unavailable Unavailable Rio Irizarry MD Unavailable Unavailable Rio Irizarry MD Unavailable Unavailable Rio Irizarry MD Unavailable Unavailable Rio Irizarry MD Unavailable Unavailable Rio Irizarry MD Unavailable Unavailable Rio Irizarry MD Unavailable Unavailable Rio Irizarry MD Unavailable Unavailable Rio Irizarry MD Unavailable Unavailable Rio Irizarry MD Unavailable Unavailable Rio Irizarry MD Unavailable Unavailable Rio Irizarry MD Unavailable Unavailable Rio Irizarry MD Unavailable Unavailable Rio Irizarry MD Unavailable Unavailable Rio Irizarry MD Unavailable Unavailable Rio Irizarry MD Unavailable Unavailable Rio Irizarry MD Unavailable Unavailable Rio Irizarry MD Unavailable Unavailable Rio Irizarry MD Unavailable Unavailable Rio Irizarry MD Unavailable Unavailable Rio Irizarry MD Unavailable Unavailable Rio Irizarry MD Unavailable Unavailable Rio Irizarry MD Unavailable Unavailable Rio Irizarry MD Unavailable Unavailable Rio Irizarry MD Unavailable Unavailable Rio Irizarry MD Unavailable Unavailable Rio Irizarry MD Unavailable Unavailable Rio Irizarry MD Unavailable Unavailable Rio Irizarry MD Unavailable Unavailable Rio Irizarry MD Unavailable Unavailable Rio Irizarry MD Unavailable Unavailable Rio Irizarry MD Unavailable Unavailable Rio Irizarry MD Unavailable Unavailable Rio Irizarry MD Unavailable Unavailable Rio Irizarry MD Unavailable Unavailable Rio Irizarry MD Unavailable Unavailable Rio Irizarry MD Unavailable Unavailable Rio Irizarry MD Unavailable Unavailable Rio Irizarry MD Unavailable Unavailable Rio Irizarry MD Unavailable Unavailable Rio Irizarry MD Unavailable Unavailable Rio Irizarry MD Unavailable Unavailable Rio Irizarry MD Unavailable Unavailable Rio Irizarry MD Unavailable Unavailable Rio Irizarry MD Unavailable Unavailable Rio Irizarry MD Unavailable Unavailable Rio Irizarry MD Unavailable Unavailable iRo Irizarry MD Unavailable Unavailable Rio Irizarry MD Unavailable Unavailable Rio Irizarry MD Unavailable Unavailable Rio Irizarry MD Unavailable Unavailable Rio Irizarry MD Unavailable Unavailable Rio Irizarry MD Unavailable Unavailable Rio Irizarry MD Unavailable Unavailable Rio Irizarry MD Unavailable Unavailable Rio Irizarry MD Unavailable Unavailable Rio Irizarry MD Unavailable Unavailable Rio Irizarry MD Unavailable Unavailable Rio Irizarry MD Unavailable Unavailable Rio Irizarry MD Unavailable Unavailable Rio Irizarry MD Unavailable Unavailable Rio Irizarry MD Unavailable Unavailable Rio Irizaryr MD Unavailable Unavailable Rio Irizarry MD Unavailable Unavailable Rio Irizarry MD Unavailable Unavailable Rio Irizarry MD Unavailable Unavailable IrizarryRio MD Unavailable Unavailable Rio Irizarry MD Unavailable Unavailable Rio Irizarry MD Unavailable Unavailable Rio Irizarry MD Unavailable Unavailable Rio Irizarry MD Unavailable Unavailable Rio Irizarry MD Unavailable Unavailable Rio Irizarry MD Unavailable Unavailable Rio Irizarry MD Unavailable Unavailable Rio Irizarry MD Unavailable Unavailable Rio Irizarry MD Unavailable Unavailable Rio Irizarry MD Unavailable Unavailable Rio Irizarry MD Unavailable Unavailable IrizarryRio MD Unavailable Unavailable IrizarryRio MD Unavailable Unavailable Irizarry, Rio Hull MD Unavailable Unavailable IrizarryRio MD Unavailable Unavailable IrizarryRio MD Unavailable Unavailable Rio Irizarry MD Unavailable Unavailable IrizarryRio MD Unavailable Unavailable IrizarryRio MD Unavailable Unavailable IrizarryRio MD Unavailable Unavailable Rio Irizarry MD Unavailable Unavailable Rio Irizarry MD Unavailable Unavailable IrizarryRio MD Unavailable Unavailable IrizarryRio MD Unavailable Unavailable AHMED, AZFAR MD Unavailable Unavailable AHMED, AZFAR MD Unavailable Unavailable AHMED, AZFAR MD Unavailable Unavailable AHMED, AZFAR MD Unavailable Unavailable AHMED, AZFAR MD Unavailable Unavailable AHMED, AZFAR MD Unavailable Unavailable AHMED, AZFAR MD Unavailable Unavailable AHMED, AZFAR MD Unavailable Unavailable AHMED, AZFAR MD Unavailable Unavailable AHMED, AZFAR MD Unavailable Unavailable AHMED, AZFAR MD Unavailable Unavailable AHMED, AZFAR MD Unavailable Unavailable AHMED, AZFAR MD Unavailable Unavailable AHMED, AZFAR MD Unavailable Unavailable AHMED, AZFAR MD Unavailable Unavailable AHMED, AZFAR MD Unavailable Unavailable AHMED, AZFAR MD Unavailable Unavailable AHMED, AZFAR MD Unavailable Unavailable AHMED, AZFAR MD Unavailable Unavailable AHMED, AZFAR MD Unavailable Unavailable AHMED, AZFAR MD Unavailable Unavailable AHMED, AZFAR MD Unavailable Unavailable AHMED, AZFAR MD Unavailable Unavailable AHMED, AZFAR MD Unavailable Unavailable AHMED, AZFAR MD Unavailable Unavailable AHMED, AZFAR MD Unavailable Unavailable Rio GÓMEZ MD Unavailable Unavailable Rio GÓMEZ MD Unavailable Unavailable Rio GÓMEZ MD Unavailable Unavailable Rio GÓMEZ MD Unavailable Unavailable Rio GÓMEZ MD Unavailable Unavailable Rio GÓMEZ MD Unavailable Unavailable Rio GÓMEZ MD Unavailable Unavailable Rio GÓMZE MD Unavailable Unavailable Rio GÓMEZ MD Unavailable Unavailable KACHARE, D ROYAL MD Unavailable Unavailable KACHARE, D ROYAL MD Unavailable Unavailable KACHARE, D ROYAL MD Unavailable Unavailable KACHARE, D ROYAL MD Unavailable Unavailable KACHARE, D ROYAL MD Unavailable Unavailable KACHARE, D RYOAL MD Unavailable Unavailable KACHARE, D ROYAL MD Unavailable Unavailable KACHARE, D ROYAL MD Unavailable Unavailable KACHARE, D ROYAL MD Unavailable Unavailable KACHARE, D ROYAL MD Unavailable Unavailable KACHARE, D ROYAL MD Unavailable Unavailable KACHARE, D ROYAL MD Unavailable Unavailable KACHARE, D ROYAL MD Unavailable Unavailable KACHARE, D ROYAL MD Unavailable Unavailable KACHARE, D ROYAL MD Unavailable Unavailable KACHARE, D ROYAL MD Unavailable Unavailable KACHARE, D ROYAL MD Unavailable Unavailable KACHARE, D ROYAL MD Unavailable Unavailable KACHARE, D ROYAL MD Unavailable Unavailable KACHARE, D ROYAL MD Unavailable Unavailable KACHARE, D ROYAL MD Unavailable Unavailable KACHARE, D ROYAL MD Unavailable Unavailable KACHARE, D ROYAL MD Unavailable Unavailable KACHARE, D ROYAL MD Unavailable Unavailable KACHARE, D ROYAL MD Unavailable Unavailable KACHARE, D ROYAL MD Unavailable Unavailable KACHARE, D ROYAL MD Unavailable Unavailable KACHARE, D ROYAL MD Unavailable Unavailable KACHARE, D ROYAL MD Unavailable Unavailable KACHARE, D ROYAL MD Unavailable Unavailable KACHARE, D ROYAL MD Unavailable Unavailable KACHARE, D ROYAL MD Unavailable Unavailable KACHARE, D ROYAL MD Unavailable Unavailable KACHARE, D ROYAL MD Unavailable Unavailable KACHARE, D ROYAL MD Unavailable Unavailable KACHARE, D ROYAL MD Unavailable Unavailable KACHARE, D ROYAL MD Unavailable Unavailable KACHARE, D ROYAL MD Unavailable Unavailable KACHARE, D ROYAL MD Unavailable Unavailable KACHARE, D ROYAL MD Unavailable Unavailable Cheo Landis MD Unavailable Unavailable Cheo Landis MD Unavailable Unavailable Cheo Landis MD Unavailable Unavailable Cheo Landis MD Unavailable Unavailable Cheo Landis MD Unavailable Unavailable Cheo Landis MD Unavailable Unavailable DO KURTIS MACDONALDAlyse Unavailable Unavailab Kera Barriga Unavailable [place], Fredrick Nguyen MD Un[facility] Unavailable Unavaila [facility], Fredrick Nguyen MD Unavailable Unavaila ble [place], Fredrick Nguyen MD Unavailable Unavaila ble [place], Fredrick Nguyen MD Unavailable Unavaila ble [place], Fredrick Nguyen MD Unavailable Unavaila ble [place], Fredrick Nguyen MD Unavailable Unavaila ble [place], Fredrick Nguyen MD Unavailable Unavaila ble [place], Fredrick Nguyen MD Unavailable Unavaila ble [place], Fredrick Nguyen MD Unavailable Unavaila ble [place], Fredrick Nguyen MD Unavailable Unavaila ble [place], Fredrick Nguyen MD Unavailable Unavaila ble Daylin Waldrop Unavailable Jumalon, M Luz CASING PULLER Unavailable Unavailable Jumalon, M Luz CASING PULLER Unavailable Unavailable Jumalon, M Luz CASING PULLER Unavailable Unavailable Jumalon, M Luz CASING PULLER Unavailable Unavailable Jumalon, M Luz CASING PULLER Unavailable Unavailable Jumalon, M Luz CASING PULLER Unavailable Unavailable Jumalon, M Luz CASING PULLER Unavailable Unavailable Jumalon, M Luz CASING PULLER Unavailable Unavailable Jumalon, M Luz CASING PULLER Unavailable Unavailable Jumalon, M Luz CASING PULLER Unavailable Unavailable Jumalon, M Luz CASING PULLER Unavailable Unavailable Jumalon, M Luz CASING PULLER Unavailable Unavailable Jumalon, M Luz CASING PULLER Unavailable Unavailable Jumalon, M Luz CASING PULLER Unavailable Unavailable Jumalon, M Luz CASING PULLER Unavailable Unavailable Jumalon, M Luz CASING PULLER Unavailable Unavailable Jumalon, M Luz CASING PULLER Unavailable Unavailable Jumalon, M Luz CASING PULLER Unavailable Unavailable Jumalon, M Luz CASING PULLER Unavailable Unavailable Jumalon, M Luz CASING PULLER Unavailable Unavailable Jumalon, M Luz CASING PULLER Unavailable Unavailable Jumalon, M Luz CASING PULLER Unavailable Unavailable Jumalon, M Luz CASING PULLER Unavailable Unavailable Jumalon, M Luz CASING PULLER Unavailable Unavailable Jumalon, M Luz CASING PULLER Unavailable Unavailable Jumalon, M Luz CASING PULLER Unavailable Unavailable Jumalon, M Luz CASING PULLER Unavailable Unavailable Jumalon, M Luz CASING PULLER Unavailable Unavailable Jumalon, M Luz CASING PULLER Unavailable Unavailable Jumalon, M Luz CASING PULLER Unavailable Unavailable AUSTEN, H CARLOS ALBERTO RESPIRATORY CARE INSTRUCTOR Unavailable Unavailable AUSTEN, H CARLOS ALBERTO RESPIRATORY CARE INSTRUCTOR Unavailable Unavailable AUSTEN, H CARLOS ALBERTO RESPIRATORY CARE INSTRUCTOR Unavailable Unavailable AUSTEN, H CARLOS ALBERTO RESPIRATORY CARE INSTRUCTOR Unavailable Unavailable AUSTEN, H CARLOS ALBERTO RESPIRATORY CARE INSTRUCTOR Unavailable Unavailable AUSTEN, H CARLOS ALBERTO RESPIRATORY CARE INSTRUCTOR Unavailable Unavailable AUSTEN, H CARLOS ALBERTO RESPIRATORY CARE INSTRUCTOR Unavailable Unavailable AUSTEN, H CARLOS ALBERTO RESPIRATORY CARE INSTRUCTOR Unavailable Unavailable AUSTEN, H CARLOS ALBERTO RESPIRATORY CARE INSTRUCTOR Unavailable Unavailable MD MIRTHA LOBATO Unavailable Unavailable Marjorie CHARLES MD Unavailable Unavailable Marjorie CHARLES MD Unavailable Unavailable Marjorie CHARLES MD Unavailable Unavailable Marjorie CHARLES MD Unavailable Unavailable Marjorie CHARLES MD Unavailable Unavailable Marjorie CHARLES MD Unavailable Unavailable Marjorie CHARLES MD Unavailable Unavailable Marjorie CHARLES MD Unavailable Unavailable Marjorie CHARLES MD Unavailable Unavailable Marjorie CHARLES MD Unavailable Unavailable Marjorie CHARLES MD Unavailable Unavailable Marjorie CHARLES MD Unavailable Unavailable Marjorie CHARLES MD Unavailable Unavailable Marjorie CHARLES MD Unavailable Unavailable Marjorie CHARLES MD Unavailable Unavailable Marjorie CHARLES MD Unavailable Unavailable Marjorie CHARLES MD Unavailable Unavailable Marjorie CHARLES MD Unavailable Unavailable Marjorie CHARLES MD Unavailable Unavailable ANAND, DO ERIC Unavailable Unavailable Dimitrios Lara MD Unavailable Unavailable Dimitrios Lara MD Unavailable Unavailable Dimitrios Lara MD Unavailable Unavailable Dimitrios Lara MD Unavailable Unavailable Dimitrios Laar MD Unavailable Unavailable Dimitrios Lara MD Unavailable Unavailable Dimitrios Lara MD Unavailable Unavailable Dimitrios Lara MD Unavailable Unavailable Dimitrios Lara MD Unavailable Unavailable Dimitrios Lara MD Unavailable Unavailable Dimitrios Lara MD Unavailable Unavailable Dimitrios Lara MD Unavailable Unavailable Dimitrios Lara MD Unavailable Unavailable Dimitrios Lara MD Unavailable Unavailable Dimitrios Lara MD Unavailable Unavailable Dimitrios Lara MD Unavailable Unavailable Dimitrios Lara MD Unavailable Unavailable Dimitrios Lara MD Unavailable Unavailable Dimitrios Lara MD Unavailable Unavailable Dimitrios Lara MD Unavailable Unavailable Dimitrios Lara MD Unavailable Unavailable Dimitrios Lara MD Unavailable Unavailable Bolla, S Pipo MD Unavailable Unavailable Bolla, S Pipo MD Unavailable Unavailable Bolla, S Pipo MD Unavailable Unavailable Bolla, S Pipo MD Unavailable Unavailable Bolla, S Pipo MD Unavailable Unavailable Bolla, S Pipo MD Unavailable Unavailable Bolla, S Pipo MD Unavailable Unavailable Bolla, S Pipo MD Unavailable Unavailable Bolla, S Pipo MD Unavailable Unavailable Bolla, S Pipo MD Unavailable Unavailable Bolla, S Pipo MD Unavailable Unavailable Bolla, S Pipo MD Unavailable Unavailable Bolla, S Ippo MD Unavailable Unavailable Bolla, S Pipo MD Unavailable Unavailable Bolla, S Pipo MD Unavailable Unavailable Bolla, S Pipo MD Unavailable Unavailable Bolla, S Pipo MD Unavailable Unavailable Bolla, S Pipo MD Unavailable Unavailable Bolla, S Pipo MD Unavailable Unavailable Bolla, S Pipo MD Unavailable Unavailable Bolla, S Pipo MD Unavailable Unavailable Bolla, S Pipo MD Unavailable Unavailable Bolla, S Pipo MD Unavailable Unavailable Bolla, S Pipo MD Unavailable Unavailable Bolla, S Pipo MD Unavailable Unavailable Bolla, S Pipo MD Unavailable Unavailable Bolla, S Pipo MD Unavailable Unavailable THOMAS, JEWISH MD Unavailable Unavailable THOMAS, JEWISH MD Unavailable Unavailable THOMAS, JEWISH MD Unavailable Unavailable THOMAS, JEWISH MD Unavailable Unavailable THOMAS, JEWISH MD Unavailable Unavailable THOMAS, JEWISH MD Unavailable Unavailable THOMAS, JEWISH MD Unavailable Unavailable THOMAS, JEWISH MD Unavailable Unavailable Mcnamara, E Amna RESPIRATORY CARE INSTRUCTOR Unavailable Unavailable Mcnamara, E Amna RESPIRATORY CARE INSTRUCTOR Unavailable Unavailable Mcnamara, E Amna RESPIRATORY CARE INSTRUCTOR Unavailable Unavailable Mcnamara, E Amna RESPIRATORY CARE INSTRUCTOR Unavailable Unavailable Mcnamara, E Amna RESPIRATORY CARE INSTRUCTOR Unavailable Unavailable Mcnamara, E Amna RESPIRATORY CARE INSTRUCTOR Unavailable Unavailable Mcnamara, E Amna RESPIRATORY CARE INSTRUCTOR Unavailable Unavailable Mcnamara, E Amna RESPIRATORY CARE INSTRUCTOR Unavailable Unavailable Mcnamara, E Amna RESPIRATORY CARE INSTRUCTOR Unavailable Unavailable Mcnamara, E Amna RESPIRATORY CARE INSTRUCTOR Unavailable Unavailable Mcnamara, E Amna RESPIRATORY CARE INSTRUCTOR Unavailable Unavailable Mcnamara, E Amna RESPIRATORY CARE INSTRUCTOR Unavailable Unavailable Mcnamara, E Amna RESPIRATORY CARE INSTRUCTOR Unavailable Unavailable Mcnamara, E Amna RESPIRATORY CARE INSTRUCTOR Unavailable Unavailable Mcnamara, E Amna RESPIRATORY CARE INSTRUCTOR Unavailable Unavailable Mcnamara, E Amna RESPIRATORY CARE INSTRUCTOR Unavailable Unavailable Mcnamara, E Amna RESPIRATORY CARE INSTRUCTOR Unavailable Unavailable Mcnamara, E Amna RESPIRATORY CARE INSTRUCTOR Unavailable Unavailable Mcnamara, E Amna RESPIRATORY CARE INSTRUCTOR Unavailable Unavailable Mcnamara, E Amna RESPIRATORY CARE INSTRUCTOR Unavailable Unavailable Mcnamara, E Amna RESPIRATORY CARE INSTRUCTOR Unavailable Unavailable Mcnamara, E Amna RESPIRATORY CARE INSTRUCTOR Unavailable Unavailable Mcnamara, E Amna RESPIRATORY CARE INSTRUCTOR Unavailable Unavailable Ze, A Sanjuana CASING PULLER Unavailable Unavailable Ze, A Sanjuana CASING PULLER Unavailable Unavailable Ze, A Sanjuana CASING PULLER Unavailable Unavailable Ze, A Sanjuana CASING PULLER Unavailable Unavailable Ze, A Sanjuana CASING PULLER Unavailable Unavailable Ze, A Sanjuana CASING PULLER Unavailable Unavailable Ze, A Sanjuana CASING PULLER Unavailable Unavailable Ze, A Sanjuana CASING PULLER Unavailable Unavailable Ze, A Sanjuana CASING PULLER Unavailable Unavailable Ze, A Sanjuana CASING PULLER Unavailable Unavailable Ze, A Sanjuana CASING PULLER Unavailable Unavailable Ze, A Sanjuana CASING PULLER Unavailable Unavailable Ze, A Sanjuana CASING PULLER Unavailable Unavailable Ze, A Sanjuana CASING PULLER Unavailable Unavailable Ze, A Sanjuana CASING PULLER Unavailable Unavailable Ze, A Sanjuana CASING PULLER Unavailable Unavailable Ze, A Sanjuana CASING PULLER Unavailable Unavailable Ze, A Sanjuana CASING PULLER Unavailable Unavailable Ze, A Sanjuana CASING PULLER Unavailable Unavailable Ze, A Sanjuana CASING PULLER Unavailable Unavailable Ze, A Sanjuana CASING PULLER Unavailable Unavailable Ze, A Sanjuana CASING PULLER Unavailable Unavailable Ze, A Sanjuana CASING PULLER Unavailable Unavailable Ze, A Sanjuana CASING PULLER Unavailable Unavailable Ze, A Sanjuana CASING PULLER Unavailable Unavailable Ze, A Sanjuana CASING PULLER Unavailable Unavailable Ze, A Sanjuana CASING PULLER Unavailable Unavailable Ze, A Sanjuana CASING PULLER Unavailable Unavailable Ze, A Sanjuana CASING PULLER Unavailable Unavailable Ze, A Sanjuana CASING PULLER Unavailable Unavailable Ze, A Sanjuana CASING PULLER Unavailable Unavailable Gilson Blackwell MD Unavailable Unavailable Blackwell, Gilson Leung MD Unavailable Unavailable BlackwellGilson maguire MD Unavailable Unavailable BlackwellGilson MD Unavailable Unavailable MD Oz COBB Unavailable Unavailable TURRIN, TRAE Unavailable Unavailable TURRIN, TRAE Unavailable Unavailable TURRIN, TRAE Unavailable Unavailable TURRIN, TRAE Unavailable Unavailable BALJIT BOLDEN MD Unavailable Unavailable [facility] Unavailable Unavailable UNKNOWN, DOCTOR Unavailable Unavailable NON, PHYSICIAN STAFF Unavailable Unavailable Re-disclosure Warning The records that you are about to access may contain information from federally-assisted alcohol or drug abuse programs. If such information is present, then the following federally mandated warning applies: This information has been disclosed to you from records protected by federal confidentiality rules (42 CFR part 2). The federal rules prohibit you from making any further disclosure of this information unless further disclosure is expressly permitted by the written consent of the person to whom it pertains or as otherwise permitted by 42 CFR part 2. A general authorization for the release of medical or other information is NOT sufficient for this purpose. The Federal rules restrict any use of the information to criminally investigate or prosecute any alcohol or drug abuse patient.The records that you are about to access may contain highly sensitive health information, the redisclosure of which is protected by Article 27-F of the [facility] Public Health law. If you continue you may have access to information: Regarding HIV / AIDS; Provided by facilities licensed or operated by the [facility] Office of Mental Health; or Provided by the [facility] Office for People With Developmental Disabilities. If such information is present, then the following [facility] mandated warning applies: This information has been disclosed to you from confidential records which are protected by state law. State law prohibits you from making any further disclosure of this information without the specific written consent of the person to whom it pertains, or as otherwise permitted by law. Any unauthorized further disclosure in violation of state law may result in a fine or custodial sentence or both. A general authorization for the release of medical or other information is NOT sufficient authorization for further disc losure. Allergies and Adverse Reactions Type Description Substance Reaction Status Data Source(s ) Propensity to adverse reactions NO KNOWN ALLERGIES NO KNOWN ALLERGIES [facility] Propensity to adverse reactions RISPERIDONE RISPERIDONE Unknown [facility] Propensity to adverse reactions RISPERIDONE Risperidone Rash Low [facility] Propensity to adverse reactions NO KNOWN ALLERGIES NO KNOWN ALLERGIES [facility] Propensity to adverse reactions NO ALLERGIES ON FILE NO ALLERGIES ON FILE [facility] Allergy to substance Allergy to substance Allergy to substance [facility] ([facility]) Allergy to substance Allergy to substance Allergy to substance [facility] ([facility]) Family History Family Member Name Family Member Gender Family Member Status Date o f Status Description Data Source(s) Unknown Unknown Problem [facility] ([facility]) Unknown Unknown Problem [facility] ([facility]) Encounters Encounter Providers Location Date Indications Data Source(s ) Pipo Lara MD: [id number] [address], [facility] [place] [address], Ph. Attender: Pipo Lara MD [place] - [facility] 04/25/2021 12:00:00 AM EDT [facility] ([facility]) Pipo Lara MD: [id number] [facility] [address], [place] [address], Ph. [phone] Attender: Pipo Lara MD [place] - [facility] 04/22/2021 12:00:00 AM EDT [facility] ([facility]) Pipo Lara MD: [id number] [facility] [address], [facility] [place] [address], Ph. [phone] Attender: Pipo Lara MD [place] - [facility] 04/22/2021 12:00:00 AM EDT [facility] ([facility]) Extended Individual Psychotherapy - 45 min Attender: Nhi Waldrop [facility] 04/15/2021 01:00:00 AM EDT - 04/15/2021 01:00:00 AM EDT [facility] ([facility]) Attender: Daylin Waldrop 04/15/2021 12:00:00 A M EDT [facility] ([facility]) Luz Dallas, RESPIRATORY CARE INSTRUCTOR: [id number], [facility] [place] [address], Ph. Attender: Luz Dallas [facility] 04/11/2021 12:00:00 AM EDT ATHGilson NA ([facility]) Luz Dallas, RESPIRATORY CARE INSTRUCTOR: [address], [place] [address], Ph. Attender: Luz Dallas [facility] 04/11/2021 12:00:00 AM EDT ATHGilson GARCIA ([facility]) Luz Dallas, RESPIRATORY CARE INSTRUCTOR: [address], [place] [address], Ph. Attender: Luz Dallas [facility] 04/11/2021 12:00:00 AM EDT ATHE NA ([facility]) Attender: Daylin Jaimekatina 03/21/2021 12:00:00 A M EDT [facility] ([facility]) Brief Individual Psychotherapy - 30 min Attender: Daylin barragan [facility] 03/19/2021 12:45:00 PM EDT - 03/19/2021 12:45:00 PM EDT [facility] ([facility]) Sanjuana Kunz [facility]: [address] [place] [address], Ph. Attender: Sanjuana Kunz [facility] Medical 03/15/2021 12:00:00 AM EDT [facility] ([facility]) Inpatient Attender: NEY Guillen nder: CAREY CHARLES MDAdmitter: NEY THOMAS MDReferrer: CAREY CHARLES MD [id number] 03/02/2021 12:00:00 AM EDT - 03/06/2021 02:10:00 PM EDT [facility] Patient discharged. Luz Dallas, RESPIRATORY CARE INSTRUCTOR: [address], [place] [address], Ph. Attender: Luz Dallas [facility] 02/28/2021 12:00:00 AM EDT JORDYN GARCIA ([facility]) Luz Dallas, RESPIRATORY CARE INSTRUCTOR: [address], [place] [address], Ph. Attender: Luz Dallas [facility] 02/28/2021 12:00:00 AM EDT ATHGilson GARCIA ([facility]) Luz Argueta Celena, RESPIRATORY CARE INSTRUCTOR: [address], [place] [address], Ph. Attender: Luz Dallas [facility] [facility] 02/28/2021 12:00:00 AM EDT ATHGilson GARCIA ([facility]) Luz Dallas, RESPIRATORY CARE INSTRUCTOR: [address], [place] [address], Ph. Attender: Luz Dallas [facility] - [facility] 02/28/2021 12:00:00 AM EDT ATHGilson GARCIA ([facility]) Emergency Attender: TRAE GARCIAConsultant: STAFF NON 02/27/2021 10:13:00 PM EDT - 02/28/2021 12:22:00 AM EDT [facility] Patient discharged. Brief Individual Psychotherapy - 30 min Attender: Daylin barragan [facility] 02/26/2021 01:30:00 AM EDT - 02/26/2021 01:30:00 AM EDT [facility] ([facility]) Attender: Daylin Waldrop 02/26/2021 12:00:00 A M EDT [facility] ([facility]) Pipo Lara MD: [address], [place] [address], Ph. Attender: Pipo SHEPPARD - [facility] 02/05/2021 12:00:00 AM EDT MARTIR ([facility]) Pipo Lara MD: [address], [place] [address], Ph. Attender: Pipo SHEPPARD - [facility] 02/05/2021 12:00:00 AM EDT MARTIR ([facility]) Pipo Lara MD: [address], [address], [place] [address], Ph. Attender: Pipo Lara MD [place] - [facility] 02/05/2021 12:00:00 AM EDT MARTIR ([facility]) Pipo Lara MD: [address], [address], [place] [address], Ph. Attender: Pipo SHEPPARD - [facility] 02/05/2021 12:00:00 AM EDT MARTIR ([facility]) Pipo Lara MD: [address], [place] [address], Ph. Attender: Pipo SHEPPARD - [facility] 02/05/2021 12:00:00 AM EDT MARTIR ([facility]) Emergency Attender: Cheo Landis MDConsultant: STAFF NON 02/01/2021 11:44:00 PM EDT - 02/02/2021 03:48:00 AM EDT [facility] Patient discharged. Outpatient Attender: CARLOS ALBERTO BOYCE NP [facility] Chris cabrera 01/31/2021 03:00:00 AM EDT - 01/31/2021 03:00:00 AM EDT [facility] ([facility]) Extended Individual Psychotherapy - 45 min Attender: Nhi Waldrop [facility] Arely 01/31/2021 02:00:00 AM EDT - 01/31/2021 02:00:00 AM EDT [facility] ([facility]) Attender: CARLOS ALBERTO BOYCE NP 01/31/2021 12:00:00 AM EDT [facility] ([facility]) Attender: Daylin Waldrop 01/31/2021 12:00:00 A M EDT [facility] ([facility]) SHANNON Jya-BC: [address] [place] [address], Ph. Attender: Sanjuana Kunz [facility] Medical 01/10/2021 12:00:00 AM EDT MARTIR ([facility]) Sanjuana Ze [facility]: [address] [place] [address], Ph. Attender: Sanjuana Kunz [facility] Medical 01/10/2021 12:00:00 AM EDT MARTIR ([facility]) Outpatient Attender: CARLOS ALBERTO BOYCE NP [facility] l 12/13/2020 03:30:00 AM EDT - 12/13/2020 03:30:00 AM EDT [facility] ([facility]) Attender: CARLOS ALBERTO BOYCE NP 12/13/2020 12:00:00 AM EDT [facility] ([facility]) Kurtis Irizarry MD: [address] [place] [address], Ph. Attender: Kurtis Irizarry MD [facility] Medical 11/28/2020 12:00:00 AM EDT MARTIR ([facility]) Kurtis Irizarry MD: [address] [place] [address], Ph. Attender: Kurtis Irizarry MD [facility] Medical 11/28/2020 12:00:00 AM EDT MARTIR ([facility]) Kurtis Irizarry MD: [address] [place] [address], Ph. Attender: Kurtis Irizarry MD [facility] Medical 11/28/2020 12:00:00 AM EDT MARTIR ([facility]) Outpatient Attender: Madhu Blackwell MD [facility] 11/22/2020 08:00:00 AM EDT - 11/22/2020 08:00:00 AM EDT [facility] ([facility]) Attender: Madhu Blackwell MD 11/22/2020 12:00:00 AM EDT [facility] ([facility]) Emergency Attender: MEDICAL EMERGENCYAttender: MD AMNA VILLANUEVA [facility] 10/30/2020 09:24:00 AM EDT - 10/30/2020 11:24:00 AM EDT [facility] Patient discharged. Emergency Attender: MD AMNA LOBATO 10/30/2020 09:24:00 AM EDT [facility] Inpatient Attender: MD CHRISTINE Lira nasreen: DO ERIC BRYANTttender: DO CORNELIO Singletonender: MEDICAL EMERGENCYAdmitter: DO ERIC MICHEL [facility] 10/28/2020 04:13:00 PM EDT - 11/06/2020 02:27:00 PM EDT [facility] Patient discharged. Inpatient Attender: DOCTOR UNKNOWNAdmi tter: DO ERIC MICHELReferrer: CATHERINE GREGG MD 10/28/2020 04:13:00 PM EDT [facility] Outpatient Attender: CARLOS ALBERTO BOYCE NP [facility] Chris cabrera 10/18/2020 11:00:00 AM EDT - 10/18/2020 11:00:00 AM EDT [facility] ([facility]) Attender: CARLOS ALBERTO BOYCE NP 10/18/2020 12:00:00 AM EDT [facility] ([facility]) Brief Individual Psychotherapy - 30 min Attender: Kera jordan [facility] Arely 10/08/2020 12:00:00 PM EDT - 10/08/2020 12:00:00 PM EDT [facility] ([facility]) Attender: Kera Nielsen 10/08/2020 12:00:00 AM EDT [facility] ([facility]) Outpatient Attender: CARLOS ALBERTO BOYCE NP [facility] Chris cabrera 10/01/2020 02:30:00 AM EDT - 10/01/2020 02:30:00 AM EDT [facility] ([facility]) Attender: CARLOS ALBERTO BOYCE NP 10/01/2020 12:00:00 AM EDT [facility] ([facility]) IP PSYCH Attender: Patrick berger MDAttender: BALJIT BOLDEN MDAdmitter: Patrick Marte MDConsultant: ROYAL GÓMEZ MD 5F-PY 09/01/2020 11:07:00 PM EST - 09/06/2020 01:00:00 PM EST [facility] Patient discharged. TEMPMHCTelemed--Crisis Brief Attender: Daylin Waldrop [facility] 08/27/2020 02:45:00 AM EST - 08/27/2020 02:45:00 AM EST [facility] ([facility]) Attender: Daylin Waldrop 08/27/2020 12:00:00 A M EST [facility] ([facility]) Attender: Daylin Waldrop 08/03/2020 12:00:00 A M EST [facility] ([facility]) Brief Individual Psychotherapy - 30 min Attender: Daylin barragan [facility] 08/02/2020 11:00:00 AM EST - 08/02/2020 11:00:00 AM EST [facility] ([facility]) Outpatient Attender: CARLOS ALBERTO BOYCE NP [facility] Chris cabrera 07/10/2020 01:00:00 AM EST - 07/10/2020 01:00:00 AM EST [facility] ([facility]) Attender: CARLOS ALBERTO BOYCE NP 07/10/2020 12:00:00 AM EST [facility] ([facility]) Brief Individual Psychotherapy - 30 min Attender: Daylin barragan [facility] 06/14/2020 12:00:00 PM EST - 06/14/2020 12:00:00 PM EST [facility] ([facility]) Attender: Daylin Waldrop 06/14/2020 12:00:00 A M EST [facility] ([facility]) MAIKEL CarltonBC: [address], [place] [address], Ph. Attender: Amna Mcnamara NP [facility] Medical 06/13/2020 12:00:00 AM EST MARTIR ([facility]) MAIKEL CarltonBC: [address], [place] [address], Ph. Attender: Amna Mcnamara NP [facility] Medical 06/13/2020 12:00:00 AM EST MARTIR ([facility]) GALEN Carlton: [address], [place] [address], Ph. Attender: Amna Mcnamara NP [facility] Medical 06/13/2020 12:00:00 AM EST MARTIR ([facility]) MAIKEL CarltonBC: [address], [place] [address], Ph. Attender: Amna Mcnamara NP [facility] Medical 06/13/2020 12:00:00 AM EST MARTIR ([facility]) Outpatient Attender: CARLOS ALBERTO BOYCE NP [facility] Chris l 06/12/2020 03:30:00 AM EST - 06/12/2020 03:30:00 AM EST [facility] ([facility]) Attender: CARLOS ALBERTO BOYCE NP 06/12/2020 12:00:00 AM EST [facility] ([facility]) Unknown [address] [address] 06/07/2020 12:00:00 AM EST eCW1 ([facility]) Brief Individual Psychotherapy - 30 min Attender: Daylin barragan [facility] Detention 04/24/2020 12:00:00 PM EDT - 04/24/2020 12:00:00 PM EDT [facility] ([facility]) Attender: Daylin Waldrop 04/24/2020 12:00:00 A M EDT [facility] ([facility]) Outpatient FP 04/18/2020 02:50:00 PM EDT [facility] Outpatient Attender: CARLOS ALBERTO BOYCE NP [facility] Chris cabrera 04/09/2020 03:00:00 AM EDT - 04/09/2020 03:00:00 AM EDT [facility] ([facility]) Attender: CARLOS ALBERTO BOYCE NP 04/09/2020 12:00:00 AM EDT [facility] ([facility]) Brief Individual Psychotherapy - 30 min Attender: Kera jordan [facility] Arely 04/02/2020 02:00:00 AM EDT - 04/02/2020 02:00:00 AM EDT [facility] ([facility]) Attender: Kera Nielsen 04/02/2020 12:00:00 AM EDT [facility] ([facility]) Outpatient FP 03/21/2020 11:10:01 AM EDT [facility] Functional Status Immunizations Vaccine Date Status Description Data Source(s) COVID-19 vaccine, vector-nr, rS-Ad26, PF, 0.5 mL 11/28/2020 04:33:01 PM EDT completed 10.5 mL [facility]ART[facility] ([facility]) COVID-19 vaccine, vector-nr, rS-Ad26, PF, 0.5 mL 11/28/2020 04:33:01 PM EDT completed 10.5 mL MARTIR ([facility]) COVID-19 vaccine, vector-nr, rS-Ad26, PF, 0.5 mL 11/28/2020 04:33:01 PM EDT completed .5 mL [facility]) COVID-19 VACCINE Lorrie 11/28/2020 12:00:00 AM EDT completed [place]SIIS Vaccine Series Complete: YESThis Data wa s Submitted to [facility] [employer]. Medications Medication Brand Name Start Date Product Form Dose Route Admi nistrative Instructions Pharmacy Instructions Status Indications Reaction Description Data Source(s) quetiapine 300 MG Oral Tablet quetiapine 04/02/2021 12:00:00 AM EDT 300 mg by mouth completed <td ID="Medica tionRxNorm_2">647166</td><td ID="MedicationMedication_2">quetiapine</td><td ID="MedicationRoute_2">by mouth</td><td ID="MedicationRouteConcept_2">M86255</td><td ID="MedicationStartDate_2">04/02/2021</td><td ID="MedicationStopDate_2">05/02/2021</td><td ID="MedicationDosageFrequency_2">at bedtime</td><td ID="MedicationDuration_2">30</td><td ID="MedicationFormulaStrength_2">300 mg</td><td ID="MedicationDosageForm_2">tablet</td><td ID="MedicationDosageFormCode_2"></td><td ID="MedicationDosageDescription_2"></td><td ID="MedicationMedicationId_2">[id number]</td><td ID="MedicationAccount_2">[id number]</td><td ID="MedicationNpid_2">[id number]</td><td ID="MedicationAuthorFirstName_2">Carlos Alberto</td><td ID="MedicationAuthorLastName_2">Austen</td><td ID="MedicationTaxonomyCode_2">[id number]</td><td ID="MedicationTaxonomyDesc_2">Nurse Practitioner</td><td ID="MedicationPhoneNumber_2">[phone]</td> [facility] ([facility]) Haloperidol 10 MG Oral Tablet haloperidol 04/02/2021 12:00:00 AM EDT 10 mg by mouth completed <td ID="Medica tionRxNorm_4">595521</td><td ID="MedicationMedication_4">haloperidol</td><td ID="MedicationRoute_4">by mouth</td><td ID="MedicationRouteConcept_4">R67396</td><td ID="MedicationStartDate_4">04/02/2021</td><td ID="MedicationStopDate_4">06/01/2021</td><td ID="MedicationDosageFrequency_4">three times a day</td><td ID="MedicationDuration_4">30</td><td ID="MedicationFormulaStrength_4">10 mg</td><td ID="MedicationDosageForm_4">tablet</td><td ID="MedicationDosageFormCode_4"></td><td ID="MedicationDosageDescription_4"> </td><td ID="MedicationMedicationId_4">[id number]</td><td ID="MedicationAccount_4">[id number]</td><td ID="MedicationNpid_4">[id number]</td><td ID="MedicationAuthorFirstName_4">Carlos Alberto</td><td ID="MedicationAuthorLastName_4">Austen</td><td ID="MedicationTaxonomyCode_4">[id number]</td><td ID="MedicationTaxonomyDesc_4">Nurse Practitioner</td><td ID="MedicationPhoneNumber_4">[phone]</td> [facility] ([facility]) gabapentin 300 MG Oral Capsule gabapentin 04/02/2021 12:00:00 AM EDT 300 mg by mouth completed <td ID="Medica tionRxNorm_5">937944</td><td ID="MedicationMedication_5">gabapentin</td><td ID="MedicationRoute_5">by mouth</td><td ID="MedicationRouteConcept_5">P25951</td><td ID="MedicationStartDate_5">04/02/2021</td><td ID="MedicationStopDate_5">06/01/2021</td><td ID="MedicationDosageFrequency_5">three times a day</td><td ID="MedicationDuration_5">30</td><td ID="MedicationFormulaStrength_5">300 mg</td><td ID="MedicationDosageForm_5">capsule</td><td ID="MedicationDosageFormCode_5"></td><td ID="MedicationDosageDescription_5"> </td><td ID="MedicationMedicationId_5">[id number]</td><td ID="MedicationAccount_5">[id number]</td><td ID="MedicationNpid_5">[id number]</td><td ID="MedicationAuthorFirstName_5">Carlos Alberto</td><td ID="MedicationAuthorLastName_5">Austen</td><td ID="MedicationTaxonomyCode_5">[id number]</td><td ID="MedicationTaxonomyDesc_5">Nurse Practitioner</td><td ID="MedicationPhoneNumber_5">[phone]</td> [facility] ([facility]) benztropine mesylate 1 MG Oral Tablet benztropine 04/02/2021 12:00 :00 AM EDT 1 mg by mouth completed <td ID="Me dicationRxNorm_3">176301</td><td ID="MedicationMedication_3">benztropine</td><td ID="MedicationRoute_3">by mouth</td><td ID="MedicationRouteConcept_3">J26815</td><td ID="MedicationStartDate_3">04/02/2021</td><td ID="MedicationStopDate_3">06/01/2021</td><td ID="MedicationDosageFrequency_3">twice a day</td><td ID="MedicationDuration_3">30</td><td ID="MedicationFormulaStrength_3">1 mg</td><td ID="MedicationDosageForm_3">tablet</td><td ID="MedicationDosageFormCode_3"></td><td ID="MedicationDosageDescription_3"></td><td ID="MedicationMedicationId_3">[id number]</td><td ID="MedicationAccount_3">[id number]</td><td ID="MedicationNpid_3">[id number]</td><td ID="MedicationAuthorFirstName_3">Carlos Alberto</td><td ID="MedicationAuthorLastName_3">Austen</td><td ID="MedicationTaxonomyCode_3">[id number]</td><td ID="MedicationTaxonomyDesc_3">Nurse Practitioner</td><td ID="MedicationPhoneNumber_3">[phone]</td> [facility] ([facility]) Clonazepam 0.5 MG Oral Tablet [Klonopin] Klonopin 04/01/2021 12 :00:00 AM EDT 0.5 mg by mouth completed <td ID="Me dicationRxNorm_1">970584</td><td ID="MedicationMedication_1">Klonopin</td><td ID="MedicationRoute_1">by mouth</td><td ID="MedicationRouteConcept_1">Q88899</td><td ID="MedicationStartDate_1">04/01/2021</td><td ID="MedicationStopDate_1">04/16/2021</td><td ID="MedicationDosageFrequency_1">twice a day</td><td ID="MedicationDuration_1">15</td><td ID="MedicationFormulaStrength_1">0.5 mg</td><td ID="MedicationDosageForm_1">tablet</td><td ID="MedicationDosageFormCode_1"></td><td ID="MedicationDosageDescription_1"></td><td ID="MedicationMedicationId_1">[id number]</td><td ID="MedicationAccount_1">[id number]</td><td ID="MedicationNpid_1">[id number]</td><td ID="MedicationAuthorFirstName_1">Carlos Alberto</td><td ID="MedicationAuthorLastName_1">Austen</td><td ID="MedicationTaxonomyCode_1">[id number]</td><td ID="MedicationTaxonomyDesc_1">Nurse Practitioner</td><td ID="MedicationPhoneNumber_1">[phone]</td> [facility] ([facility]) Clonazepam 0.5 MG Oral Tablet clonazepam 03/08/2021 12:00:00 AM EDT 0.5 mg by mouth completed <td ID="Medica tionRxNorm_1">642799</td><td ID="MedicationMedication_1">clonazepam</td><td ID="MedicationRoute_1">by mouth</td><td ID="MedicationRouteConcept_1">Q78034</td><td ID="MedicationStartDate_1">03/08/2021</td><td ID="MedicationStopDate_1">03/23/2021</td><td ID="MedicationDosageFrequency_1">twice a day</td><td ID="MedicationDuration_1">15</td><td ID="MedicationFormulaStrength_1">0.5 mg</td><td ID="MedicationDosageForm_1">tablet</td><td ID="MedicationDosageFormCode_1"></td><td ID="MedicationDosageDescription_1"></td><td ID="MedicationMedicationId_1">[id number]</td><td ID="MedicationAccount_1">[id number]</td><td ID="MedicationNpid_1">[id number]</td><td ID="MedicationAuthorFirstName_1">Tio</td><td ID="MedicationAuthorLastName_1">Mares</td><td ID="MedicationTaxonomyCode_1">[id number]</td><td ID="MedicationTaxonomyDesc_1">Nurse Practitioner</td><td ID="MedicationPhoneNumber_1">[phone]</td> [facility] ([facility]) Nicotine 2 MG Oral Lozenge Nicotine Efrain crilex 2 MG Mouth/Throat Lozenge (NICORETTE) Nicotine Polacrilex 2 MG Mouth/Throat Lozenge (NICORET TE) 03/06/2021 12:00:00 AM EDT [address] 1 lozenge inside cheek every 2 (two) hours as needed for Smoking cessation [facility] Metformin hydrochloride 500 MG Oral Tablet metFORMIN ( GLUCOPHAGE) tablet 500 mg metFORMIN (GLUCOPHAGE) tablet 500 mg 03/03/2021 09:00:00 AM EDT 500 m g Oral active Type 2 Diabetes Mellitus 500 mg, Oral, 2 Times Daily With Meals, Indications: Type 2 Diabetes Mellitus, First dose on 03/03/21 at 0900, For 30 days [facility] Type 2 Diabetes Mellitus Medication administered onsite Tamsulosin hydrochloride 0.4 MG Oral Capsule tamsulosi n (FLOMAX) capsule 0.4 mg tamsulosin (FLOMAX) capsule 0.4 mg 03/03/2021 09:00:00 AM EDT 0.4 mg Oral active 0.4 mg, Oral, Daily Standard, First dose on 03/03/21 at 0900, For 30 days
Swallow whole. Do not crush, chew or open.
[facility] Medication administered onsite insulin lispro (HumaLOG) injection LOW DOSE EATING INS ULIN patients 1-8 Units [id number] 03/03/2021 08:00:00 AM EDT U Subcutaneous active 1-8 Units, Subcutaneous, Three Times Daily-With Meals, First dose on 03/03/21 at 0800, For 30 days
Nursing MUST open the 'SQ Insulin Dosing Charts' Sidebar Report, or, the Patient Summary or Summary Report within the ED.
[facility] Medication administered onsite Insulin Glargine 100 UNT/ML Injectable S olution insulin glargine (LANTUS) injection 24 Units insulin glargine (LANTUS) injection 24 Units 10:00:00 PM EDT 24 U Subcutaneous active 24 Units, Subcutaneous, Nightly, First dose on 03/02/21 at 2200, For 30 days
For blood glucose less than 70 mg/dL: follow hypoglycemia protocol ( ) and notify provider.&amp ;nbsp; For blood glucose values between 70 mg/dL and 100 mg/dL at bedtime: provide snack (15 grams of carbohydrates) with some protein. Administer FULL DOSE of insulin glargine (LANTUS) after snack. Record snack in I&O's. For blood glucose more than 400 mg/dL: notify provider
[facility] Medication administered onsite quetiapine 300 MG Oral Tablet QUEtiapine (SEROquel) ta blet 600 mg QUEtiapine (SEROquel) tablet 600 mg 03/02/2021 10:00:00 PM EDT 600 mg Oral active 600 mg, Oral, Nightly, First dose on 03/02/21 at 220 0, For 30 days [facility] Medication administered onsite Haloperidol 10 MG Oral Tablet haloperidol (HALDOL) tab let 10 mg haloperidol (HALDOL) tablet 10 mg 03/02/2021 09:00:00 PM EDT 10 mg Oral active 10 mg, Oral, Three Times Daily Standard, First dose on 03/02/21 at 2100, For 30 days [facility] Medication administered onsite benztropine mesylate 1 MG Oral Tablet benztropine (COG ENTIN) tablet 1 mg benztropine (COGENTIN) tablet 1 mg 03/02/2021 09:00:00 PM EDT 1 mg Oral active 1 mg, Oral, 2 Times Daily, First dose on 03/02/21 at 2100, For 30 days [facility] Medication administered onsite gabapentin 300 MG Oral Capsule gabapentin (NEURONTIN) capsule 600 mg gabapentin (NEURONTIN) capsule 600 mg 03/02/2021 09:00:00 PM EDT 600 mg Oral active Fibromyalgia Syndrome 600 mg, Oral, Three Times D aily Standard, Indications: Fibromyalgia Syndrome, First dose on 03/02/21 at 2100, For 30 days [facility] Fibromyalgia Syndrome Medication administered onsite Baclofen 10 MG Oral Tablet baclofen (LIORESAL) tablet 10 mg baclofen (LIORESAL) tablet 10 mg 03/02/2021 09:00:00 PM EDT 10 mg Oral activ e 10 mg, Oral, 2 Times Daily, First dose on 03/02/21 at 2100, For 30 days [facility] Medication administered onsite Clonazepam 0.5 MG Oral Tablet clonazePAM (KLONOPIN) ta blet 0.5 mg clonazePAM (KLONOPIN) tablet 0.5 mg 03/02/2021 07:12:17 PM EDT 0.5 mg Oral active 0.5 mg, Oral, Daily PRN, anxiety, Starting on Sat at 1912, For 30 days [facility] Medication administered onsite Glucagon 1 MG Injection glucagon (human recombinant) ( GLUCAGEN) injection 1 mg glucagon (human recombinant) (GLUCAGEN) injection 1 mg 03/02/2021 07:12:16 PM EDT 1 mg Intramuscular active 1 mg, Intramuscular, PRN, for glucose <55 without IV access, Starting on 03/02/21 at 1912, For 30 days [facility] Medication administered onsite Glucose 0.417 MG/MG Oral Gel glucose (GLUTOSE) 40 % or al gel 15 g glucose (GLUTOSE) 40 % oral gel 15 g 03/02/2021 07:12:16 PM EDT 15 g Oral active 15 g, Oral, PRN, Low blood s ugar, for gluose 55-69 mg/dl and able to take PO, Starting on 03/02/21 at 1912, For 30 days [facility] Medication administered onsite dextrose 50 % IV solution 25 mL [id number] 03/02/2021 07:12:16 PM E DT 25 mL Intravenous active 25 mL, Intrav enous, PRN, Other, blood glucose <55, Starting on 03/02/21 at 1912, For 30 days
Not for midline administration.
[facility] Medication administered onsite Hydroxyzine Hydrochloride 50 MG Oral Tablet hydrOXYzin e (ATARAX) tablet 50 mg hydrOXYzine (ATARAX) tablet 50 mg 03/02/2021 07:02:30 PM EDT 50 mg Oral active 50 mg, Oral, Every 6 hours PRN, Anxiety, Sleep, Starting on 03/02/21 at 1902, For 30 days [facility] Medication administered onsite Nicotine 2 MG Oral Lozenge nicotine (NICORETTE) lozeng e 2 mg nicotine (NICORETTE) lozenge 2 mg 03/02/2021 07:02:20 PM EDT 2 mg Mouth/Th roat active 2 mg, Mouth/Throat, Every 2 hours PRN, Smoking cessation, Starting on 03/02/21 at 1902, For 30 days
Should not be chewed or swallowed; allow to dissolve slowly (~20-30 minutes)
[facility] Medication administered onsite Acetaminophen 325 MG Oral Tablet acetaminophen (TYLENO L) tablet 650 mg acetaminophen (TYLENOL) tablet 650 mg 03/02/2021 07:02:17 PM EDT 65 0 mg Oral active 650 mg, Oral, E very 6 hours PRN, All Levels of Pain (Pain Scale Score 1-10), Starting on 03/02/21 at 1902, For 30 days
Maximum daily dose of acetaminophen is 3,000 mg from all sources in 24 hrs.
[facility] Medication administered onsite Clonazepam 0.5 MG Oral Tablet [Klonopin] Klonopin 02/21/2021 12 :00:00 AM EDT 0.5 mg by mouth completed <td ID="Me dicationRxNorm_3">892464</td><td ID="MedicationMedication_3">Klonopin</td><td ID="MedicationRoute_3">by mouth</td><td ID="MedicationRouteConcept_3">N32358</td><td ID="MedicationStartDate_3">02/21/2021</td><td ID="MedicationStopDate_3">03/08/2021</td><td ID="MedicationDosageFrequency_3">twice a day</td><td ID="MedicationDuration_3">15</td><td ID="MedicationFormulaStrength_3">0.5 mg</td><td ID="MedicationDosageForm_3">tablet</td><td ID="MedicationDosageFormCode_3"></td><td ID="MedicationDosageDescription_3"></td><td ID="MedicationMedicationId_3">[id number]</td><td ID="MedicationAccount_3">[id number]</td><td ID="MedicationNpid_3">[id number]</td><td ID="MedicationAuthorFirstName_3">Carlos Alberto</td><td ID="MedicationAuthorLastName_3">Austen</td><td ID="MedicationTaxonomyCode_3">[id number]</td><td ID="MedicationTaxonomyDesc_3">Nurse Practitioner</td><td ID="MedicationPhoneNumber_3">[phone]</td> [facility] ([facility]) quetiapine 300 MG Oral Tablet quetiapine 02/03/2021 12:00:00 AM EDT 300 mg by mouth completed <td ID="Medica tionRxNorm_6">375116</td><td ID="MedicationMedication_6">quetiapine</td><td ID="MedicationRoute_6">by mouth</td><td ID="MedicationRouteConcept_6">F89076</td><td ID="MedicationStartDate_6">02/03/2021</td><td ID="MedicationStopDate_6">03/05/2021</td><td ID="MedicationDosageFrequency_6">at bedtime</td><td ID="MedicationDuration_6">30</td><td ID="MedicationFormulaStrength_6">300 mg</td><td ID="MedicationDosageForm_6">tablet</td><td ID="MedicationDosageFormCode_6"></td><td ID="MedicationDosageDescription_6"></td><td ID="MedicationMedicationId_6">[id number]</td><td ID="MedicationAccount_6">[id number]</td><td ID="MedicationNpid_6">[id number]</td><td ID="MedicationAuthorFirstName_6">Carlos Alberto</td><td ID="MedicationAuthorLastName_6">[place]</td><td ID="MedicationTaxonomyCode_6">[id number]</td><td ID="MedicationTaxonomyDesc_6">Nurse Practitioner</td><td ID="MedicationPhoneNumber_6">[phone]</td> [facility] ([facility]) Clonazepam 0.5 MG Oral Tablet [Klonopin] Klonopin 01/31/2021 12 :00:00 AM EDT 0.5 mg by mouth completed <td ID="Me dicationRxNorm_2">074215</td><td ID="MedicationMedication_2">Klonopin</td><td ID="MedicationRoute_2">by mouth</td><td ID="MedicationRouteConcept_2">O16198</td><td ID="MedicationStartDate_2">01/31/2021</td><td ID="MedicationStopDate_2">02/15/2021</td><td ID="MedicationDosageFrequency_2">twice a day</td><td ID="MedicationDuration_2">15</td><td ID="MedicationFormulaStrength_2">0.5 mg</td><td ID="MedicationDosageForm_2">tablet</td><td ID="MedicationDosageFormCode_2"></td><td ID="MedicationDosageDescription_2"></td><td ID="MedicationMedicationId_2">[id number]</td><td ID="MedicationAccount_2">[id number]</td><td ID="MedicationNpid_2">[id number]</td><td ID="MedicationAuthorFirstName_2">Carlos Alberto</td><td ID="MedicationAuthorLastName_2">[place]</td><td ID="MedicationTaxonomyCode_2">[id number]</td><td ID="MedicationTaxonomyDesc_2">Nurse Practitioner</td><td ID="MedicationPhoneNumber_2">[phone]</td> [facility] ([facility]) BLOOD SUGAR DIAGNOSTIC 01/21/2021 12:00:00 AM EDT strip 200 ONE MISCELLANEOUS THREE TIMES A DAY NEEDED ONE MISCELLANEOUS THREE TIMES A DAY NEEDED SOLD: 01/21/2021 [facility] 100 unit/mL 01/21/2021 12:00:00 AM EDT solution 10 INJECT 10 UNITS SUBCUTANEOUSLY WITH A MEAL INJECT 10 UNITS SUBCUTANEOUSLY WITH A MEAL SOLD: 01/21/2021 [facility] quetiapine 300 MG Oral Tablet quetiapine 01/03/2021 12:00:00 AM EDT 300 mg by mouth completed <td ID="Medica tionRxNorm_1">281538</td><td ID="MedicationMedication_1">quetiapine</td><td ID="MedicationRoute_1">by mouth</td><td ID="MedicationRouteConcept_1">O34905</td><td ID="MedicationStartDate_1">01/03/2021</td><td ID="MedicationStopDate_1">02/02/2021</td><td ID="MedicationDosageFrequency_1">at bedtime</td><td ID="MedicationDuration_1">30</td><td ID="MedicationFormulaStrength_1">300 mg</td><td ID="MedicationDosageForm_1">tablet</td><td ID="MedicationDosageFormCode_1"></td><td ID="MedicationDosageDescription_1"></td><td ID="MedicationMedicationId_1">[id number]</td><td ID="MedicationAccount_1">[id number]</td><td ID="MedicationNpid_1">[id number]</td><td ID="MedicationAuthorFirstName_1">Carlos Alberto</td><td ID="MedicationAuthorLastName_1">[place]</td><td ID="MedicationTaxonomyCode_1">[id number]</td><td ID="MedicationTaxonomyDesc_1">Nurse Practitioner</td><td ID="MedicationPhoneNumber_1">[phone]</td> [facility] ([facility]) gabapentin 300 MG Oral Capsule gabapentin 01/03/2021 12:00:00 AM EDT 300 mg by mouth completed <td ID="Medica tionRxNorm_4">849750</td><td ID="MedicationMedication_4">gabapentin</td><td ID="MedicationRoute_4">by mouth</td><td ID="MedicationRouteConcept_4">K08264</td><td ID="MedicationStartDate_4">01/03/2021</td><td ID="MedicationStopDate_4">03/04/2021</td><td ID="MedicationDosageFrequency_4">three times a day</td><td ID="MedicationDuration_4">30</td><td ID="MedicationFormulaStrength_4">300 mg</td><td ID="MedicationDosageForm_4">capsule</td><td ID="MedicationDosageFormCode_4"></td><td ID="MedicationDosageDescription_4"> </td><td ID="MedicationMedicationId_4">58622</td><td ID="MedicationAccount_4">[id number]</td><td ID="MedicationNpid_4">[id number]</td><td ID="MedicationAuthorFirstName_4">Carlos Alberto</td><td ID="MedicationAuthorLastName_4">[place]</td><td ID="MedicationTaxonomyCode_4">[id number]</td><td ID="MedicationTaxonomyDesc_4">Nurse Practitioner</td><td ID="MedicationPhoneNumber_4">[phone]</td> [facility] ([facility] gabapentin 300 MG Oral Capsule gabapentin 11/15/2020 12:00:00 AM EDT 300 mg by mouth completed <td ID="Medica tionRxNorm_2">938229</td><td ID="MedicationMedication_2">gabapentin</td><td ID="MedicationRoute_2">by mouth</td><td ID="MedicationRouteConcept_2">U41318</td><td ID="MedicationStartDate_2">11/15/2020</td><td ID="MedicationStopDate_2">12/15/2020</td><td ID="MedicationDosageFrequency_2">three times a day</td><td ID="MedicationDuration_2">30</td><td ID="MedicationFormulaStrength_2">300 mg</td><td ID="MedicationDosageForm_2">capsule</td><td ID="MedicationDosageFormCode_2"></td><td ID="MedicationDosageDescription_2"> </td><td ID="MedicationMedicationId_2">77363</td><td ID="MedicationAccount_2">[id number]</td><td ID="MedicationNpid_2">[id number]</td><td ID="MedicationAuthorFirstName_2">Carlos Alberto</td><td ID="MedicationAuthorLastName_2">[place]</td><td ID="MedicationTaxonomyCode_2">[id number]</td><td ID="MedicationTaxonomyDesc_2">Nurse Practitioner</td><td ID="MedicationPhoneNumber_2">[phone]</td> [facility] ([facility]) Haloperidol 10 MG Oral Tablet haloperidol 11/15/2020 12:00:00 AM EDT 10 mg by mouth completed <td ID="Medica tionRxNorm_5">242776</td><td ID="MedicationMedication_5">haloperidol</td><td ID="MedicationRoute_5">by mouth</td><td ID="MedicationRouteConcept_5">O49022</td><td ID="MedicationStartDate_5">11/15/2020</td><td ID="MedicationStopDate_5">03/04/2021</td><td ID="MedicationDosageFrequency_5">three times a day</td><td ID="MedicationDuration_5">30</td><td ID="MedicationFormulaStrength_5">10 mg</td><td ID="MedicationDosageForm_5">tablet</td><td ID="MedicationDosageFormCode_5"></td><td ID="MedicationDosageDescription_5"> </td><td ID="MedicationMedicationId_5">60211</td><td ID="MedicationAccount_5">[id number]</td><td ID="MedicationNpid_5">[id number]</td><td ID="MedicationAuthorFirstName_5">Carlos Alberto</td><td ID="MedicationAuthorLastName_5">[place]</td><td ID="MedicationTaxonomyCode_5">[id number]</td><td ID="MedicationTaxonomyDesc_5">Nurse Practitioner</td><td ID="MedicationPhoneNumber_5">[phone]</td> [facility] ([facility]) benztropine mesylate 1 MG Oral Tablet benztropine 10/18/2020 12:00 :00 AM EDT 1 mg by mouth completed <td ID="Me dicationRxNorm_1">557275</td><td ID="MedicationMedication_1">benztropine</td><td ID="MedicationRoute_1">by mouth</td><td ID="MedicationRouteConcept_1">D84719</td><td ID="MedicationStartDate_1">10/18/2020</td><td ID="MedicationStopDate_1">03/04/2021</td><td ID="MedicationDosageFrequency_1">twice a day</td><td ID="MedicationDuration_1">30</td><td ID="MedicationFormulaStrength_1">1 mg</td><td ID="MedicationDosageForm_1">tablet</td><td ID="MedicationDosageFormCode_1"></td><td ID="MedicationDosageDescription_1"></td><td ID="MedicationMedicationId_1">71751</td><td ID="MedicationAccount_1">[id number]</td><td ID="MedicationNpid_1">[id number]</td><td ID="MedicationAuthorFirstName_1">Carlos Alberto</td><td ID="MedicationAuthorLastName_1">[place]</td><td ID="MedicationTaxonomyCode_1">[id number]</td><td ID="MedicationTaxonomyDesc_1">Nurse Practitioner</td><td ID="MedicationPhoneNumber_1">[phone]</td> [facility] ([facility]) benztropine mesylate 1 MG Oral Tablet benztropine 07/10/2020 12:00 :00 AM EST 1 mg by mouth completed <td ID="Me dicationRxNorm_2">865117</td><td ID="MedicationMedication_2">benztropine</td><td ID="MedicationRoute_2">by mouth</td><td ID="MedicationRouteConcept_2">O53496</td><td ID="MedicationStartDate_2">07/10/2020</td><td ID="MedicationStopDate_2">10/26/2020</td><td ID="MedicationDosageFrequency_2">at bedtime</td><td ID="MedicationDuration_2">30</td><td ID="MedicationFormulaStrength_2">1 mg</td><td ID="MedicationDosageForm_2">tablet</td><td ID="MedicationDosageFormCode_2"></td><td ID="MedicationDosageDescription_2"></td><td ID="MedicationMedicationId_2">91857</td><td ID="MedicationAccount_2">[id number]</td><td ID="MedicationNpid_2">[id number]</td><td ID="MedicationAuthorFirstName_2">Carlos Alberto</td><td ID="MedicationAuthorLastName_2">[place]</td><td ID="MedicationTaxonomyCode_2">[id number]</td><td ID="MedicationTaxonomyDesc_2">Nurse Practitioner</td><td ID="MedicationPhoneNumber_2">[phone]</td> [facility] quetiapine 400 MG Oral Tablet quetiapine 06/12/2020 12:00:00 AM EST 400 mg by mouth completed <td ID="Medica tionRxNorm_3">287572</td><td ID="MedicationMedication_3">quetiapine</td><td ID="MedicationRoute_3">by mouth</td><td ID="MedicationRouteConcept_3">O48764</td><td ID="MedicationStartDate_3">06/12/2020</td><td ID="MedicationStopDate_3">09/10/2020</td><td ID="MedicationDosageFrequency_3">every night</td><td ID="MedicationDuration_3">30</td><td ID="MedicationFormulaStrength_3">400 mg</td><td ID="MedicationDosageForm_3">tablet</td><td ID="MedicationDosageFormCode_3"></td><td ID="MedicationDosageDescription_3"></td><td ID="MedicationMedicationId_3">04438</td><td ID="MedicationAccount_3">[id number]</td><td ID="MedicationNpid_3">[id number]</td><td ID="MedicationAuthorFirstName_3">Carlos Alberto</td><td ID="MedicationAuthorLastName_3">[place]</td><td ID="MedicationTaxonomyCode_3">[id number]</td><td ID="MedicationTaxonomyDesc_3">Nurse Practitioner</td><td ID="MedicationPhoneNumber_3">[phone]</td> [facility] ([facility]) Haloperidol 10 MG Oral Tablet haloperidol 06/12/2020 12:00:00 AM EST 10 mg by mouth completed <td ID="Medica tionRxNorm_1">037218</td><td ID="MedicationMedication_1">haloperidol</td><td ID="MedicationRoute_1">by mouth</td><td ID="MedicationRouteConcept_1">T19150</td><td ID="MedicationStartDate_1">06/12/2020</td><td ID="MedicationStopDate_1"></td><td ID="MedicationDosageFrequency_1">twice a day</td><td ID="MedicationDuration_1">30</td><td ID="MedicationFormulaStrength_1">10 mg</td><td ID="MedicationDosageForm_1">tablet</td><td ID="MedicationDosageFormCode_1"></td><td ID="MedicationDosageDescription_1"></td><td ID="MedicationMedicationId_1">06804</td><td ID="MedicationAccount_1">[id number]</td><td ID="MedicationNpid_1">[id number]</td><td ID="MedicationAuthorFirstName_1">Carlos Alberto</td><td ID="MedicationAuthorLastName_1">[place]</td><td ID="MedicationTaxonomyCode_1">[id number]</td><td ID="MedicationTaxonomyDesc_1">Nurse Practitioner</td><td ID="MedicationPhoneNumber_1">[phone]</td> [facility] ([facility]) quetiapine 400 MG Oral Tablet quetiapine 06/12/2020 12:00:00 AM EST 400 mg by mouth completed <td ID="Medica tionRxNorm_4">901253</td><td ID="MedicationMedication_4">quetiapine</td><td ID="MedicationRoute_4">by mouth</td><td ID="MedicationRouteConcept_4">K71126</td><td ID="MedicationStartDate_4">06/12/2020</td><td ID="MedicationStopDate_4">09/10/2020</td><td ID="MedicationDosageFrequency_4">every night</td><td ID="MedicationDuration_4">30</td><td ID="MedicationFormulaStrength_4">400 mg</td><td ID="MedicationDosageForm_4">tablet</td><td ID="MedicationDosageFormCode_4"></td><td ID="MedicationDosageDescription_4"></td><td ID="MedicationMedicationId_4">38615</td><td ID="MedicationAccount_4">[id number]</td><td ID="MedicationNpid_4">[id number]</td><td ID="MedicationAuthorFirstName_4">Carlos Alberto</td><td ID="MedicationAuthorLastName_4">[place]</td><td ID="MedicationTaxonomyCode_4">[id number]</td><td ID="MedicationTaxonomyDesc_4">Nurse Practitioner</td><td ID="MedicationPhoneNumber_4">[phone]</td> [facility] ([facility]) gabapentin 400 MG Oral Capsule gabapentin 06/12/2020 12:00:00 AM EST 400 mg by mouth completed <td ID="Medica tionRxNorm_3">682448</td><td ID="MedicationMedication_3">gabapentin</td><td ID="MedicationRoute_3">by mouth</td><td ID="MedicationRouteConcept_3">X89620</td><td ID="MedicationStartDate_3">06/12/2020</td><td ID="MedicationStopDate_3">09/10/2020</td><td ID="MedicationDosageFrequency_3">three times a day</td><td ID="MedicationDuration_3">30</td><td ID="MedicationFormulaStrength_3">400 mg</td><td ID="MedicationDosageForm_3">capsule</td><td ID="MedicationDosageFormCode_3"></td><td ID="MedicationDosageDescription_3"> </td><td ID="MedicationMedicationId_3">10428</td><td ID="MedicationAccount_3">[id number]</td><td ID="MedicationNpid_3">[id number]</td><td ID="MedicationAuthorFirstName_3">Carlos Alberto</td><td ID="MedicationAuthorLastName_3">[place]</td><td ID="MedicationTaxonomyCode_3">[id number]</td><td ID="MedicationTaxonomyDesc_3">Nurse Practitioner</td><td ID="MedicationPhoneNumber_3">[phone]</td> [facility] ([facility]) Trazodone Hydrochloride 100 MG Oral Tablet trazodone 04/09 12:00:00 AM EDT 100 mg by mouth completed <td ID="Medic ationRxNorm_5">085768</td><td ID="MedicationMedication_5">trazodone</td><td ID="MedicationRoute_5">by mouth</td><td ID="MedicationRouteConcept_5">T90806</td><td ID="MedicationStartDate_5">04/09/2020</td><td ID="MedicationStopDate_5">07/08/2020</td><td ID="MedicationDosageFrequency_5">at bedtime</td><td ID="MedicationDuration_5">30</td><td ID="MedicationFormulaStrength_5">100 mg</td><td ID="MedicationDosageForm_5">tablet</td><td ID="MedicationDosageFormCode_5"></td><td ID="MedicationDosageDescription_5"></td><td ID="MedicationMedicationId_5">55299</td><td ID="MedicationAccount_5">[id number]</td><td ID="MedicationNpid_5">[id number]</td><td ID="MedicationAuthorFirstName_5">Carlos Alberto</td><td ID="MedicationAuthorLastName_5">[place]</td><td ID="MedicationTaxonomyCode_5">[id number]</td><td ID="MedicationTaxonomyDesc_5">Nurse Practitioner</td><td ID="MedicationPhoneNumber_5">[phone]</td> [facility] ([facility]) gabapentin 300 MG Oral Capsule gabapentin 04/09/2020 12:00:00 AM EDT 300 mg by mouth completed <td ID="Medica tionRxNorm_6">560136</td><td ID="MedicationMedication_6">gabapentin</td><td ID="MedicationRoute_6">by mouth</td><td ID="MedicationRouteConcept_6">V04446</td><td ID="MedicationStartDate_6">04/09/2020</td><td ID="MedicationStopDate_6">07/08/2020</td><td ID="MedicationDosageFrequency_6">three times a day</td><td ID="MedicationDuration_6">30</td><td ID="MedicationFormulaStrength_6">300 mg</td><td ID="MedicationDosageForm_6">capsule</td><td ID="MedicationDosageFormCode_6"></td><td ID="MedicationDosageDescription_6"> </td><td ID="MedicationMedicationId_6">06544</td><td ID="MedicationAccount_6">[id number]</td><td ID="MedicationNpid_6">[id number]</td><td ID="MedicationAuthorFirstName_6">Carlos Alberto</td><td ID="MedicationAuthorLastName_6">[place]</td><td ID="MedicationTaxonomyCode_6">[id number]</td><td ID="MedicationTaxonomyDesc_6">Nurse Practitioner</td><td ID="MedicationPhoneNumber_6">[phone]</td> [facility] ([facility]) Haloperidol 10 MG Oral Tablet haloperidol 04/09/2020 12:00:00 AM EDT 10 mg by mouth completed <td ID="Medica tionRxNorm_2">976365</td><td ID="MedicationMedication_2">haloperidol</td><td ID="MedicationRoute_2">by mouth</td><td ID="MedicationRouteConcept_2">W09059</td><td ID="MedicationStartDate_2">04/09/2020</td><td ID="MedicationStopDate_2">05/09/2020</td><td ID="MedicationDosageFrequency_2">twice a day</td><td ID="MedicationDuration_2">30</td><td ID="MedicationFormulaStrength_2">10 mg</td><td ID="MedicationDosageForm_2">tablet</td><td ID="MedicationDosageFormCode_2"></td><td ID="MedicationDosageDescription_2"></td><td ID="MedicationMedicationId_2">62822</td><td ID="MedicationAccount_2">[id number]</td><td ID="MedicationNpid_2">[id number]</td><td ID="MedicationAuthorFirstName_2">Carlos Alberto</td><td ID="MedicationAuthorLastName_2">[place]</td><td ID="MedicationTaxonomyCode_2">[id number]</td><td ID="MedicationTaxonomyDesc_2">Nurse Practitioner</td><td ID="MedicationPhoneNumber_2">[phone]</td> [facility] ([facility]) Trazodone Hydrochloride 100 MG Oral Tablet trazodone 04/09 12:00:00 AM EDT 100 mg by mouth completed <td ID="Medic ationRxNorm_2">703865</td><td ID="MedicationMedication_2">trazodone</td><td ID="MedicationRoute_2">by mouth</td><td ID="MedicationRouteConcept_2">J01197</td><td ID="MedicationStartDate_2">04/09/2020</td><td ID="MedicationStopDate_2">09/10/2020</td><td ID="MedicationDosageFrequency_2">at bedtime</td><td ID="MedicationDuration_2">30</td><td ID="MedicationFormulaStrength_2">100 mg</td><td ID="MedicationDosageForm_2">tablet</td><td ID="MedicationDosageFormCode_2"></td><td ID="MedicationDosageDescription_2"></td><td ID="MedicationMedicationId_2">13590</td><td ID="MedicationAccount_2">[id number]</td><td ID="MedicationNpid_2">[id number]</td><td ID="MedicationAuthorFirstName_2">Carlos Alberto</td><td ID="MedicationAuthorLastName_2">[place]</td><td ID="MedicationTaxonomyCode_2">[id number]</td><td ID="MedicationTaxonomyDesc_2">Nurse Practitioner</td><td ID="MedicationPhoneNumber_2">[phone]</td> [facility] ([facility]) Trazodone Hydrochloride 100 MG Oral Tablet trazodone 04/09 12:00:00 AM EDT 100 mg by mouth completed <td ID="Medic ationRxNorm_3">223785</td><td ID="MedicationMedication_3">trazodone</td><td ID="MedicationRoute_3">by mouth</td><td ID="MedicationRouteConcept_3">L25876</td><td ID="MedicationStartDate_3">04/09/2020</td><td ID="MedicationStopDate_3">09/10/2020</td><td ID="MedicationDosageFrequency_3">at bedtime</td><td ID="MedicationDuration_3">30</td><td ID="MedicationFormulaStrength_3">100 mg</td><td ID="MedicationDosageForm_3">tablet</td><td ID="MedicationDosageFormCode_3"></td><td ID="MedicationDosageDescription_3"></td><td ID="MedicationMedicationId_3">25922</td><td ID="MedicationAccount_3">[id number]</td><td ID="MedicationNpid_3">[id number]</td><td ID="MedicationAuthorFirstName_3">Carlos Alberto</td><td ID="MedicationAuthorLastName_3">[place]</td><td ID="MedicationTaxonomyCode_3">[id number]</td><td ID="MedicationTaxonomyDesc_3">Nurse Practitioner</td><td ID="MedicationPhoneNumber_3">[phone]</td> [facility] ([facility]) Trazodone Hydrochloride 100 MG Oral Tablet trazodone 04/09 12:00:00 AM EDT 100 mg by mouth completed <td ID="Medic ationRxNorm_1">065123</td><td ID="MedicationMedication_1">trazodone</td><td ID="MedicationRoute_1">by mouth</td><td ID="MedicationRouteConcept_1">V67586</td><td ID="MedicationStartDate_1">04/09/2020</td><td ID="MedicationStopDate_1">07/08/2020</td><td ID="MedicationDosageFrequency_1">at bedtime</td><td ID="MedicationDuration_1">30</td><td ID="MedicationFormulaStrength_1">100 mg</td><td ID="MedicationDosageForm_1">tablet</td><td ID="MedicationDosageFormCode_1"></td><td ID="MedicationDosageDescription_1"></td><td ID="MedicationMedicationId_1">33942</td><td ID="MedicationAccount_1">[id number]</td><td ID="MedicationNpid_1">[id number]</td><td ID="MedicationAuthorFirstName_1">Carlos Alberto</td><td ID="MedicationAuthorLastName_1">[place]</td><td ID="MedicationTaxonomyCode_1">[id number]</td><td ID="MedicationTaxonomyDesc_1">Nurse Practitioner</td><td ID="MedicationPhoneNumber_1">[phone]</td> [facility] ([facility]) gabapentin 300 MG Oral Capsule gabapentin 04/02/2020 12:00:00 AM EDT 300 mg by mouth completed <td ID="Medica tionRxNorm_1">547069</td><td ID="MedicationMedication_1">gabapentin</td><td ID="MedicationRoute_1">by mouth</td><td ID="MedicationRouteConcept_1">W06556</td><td ID="MedicationStartDate_1">04/02/2020</td><td ID="MedicationStopDate_1">04/09/2020</td><td ID="MedicationDosageFrequency_1">three times a day</td><td ID="MedicationDuration_1">7</td><td ID="MedicationFormulaStrength_1">300 mg</td><td ID="MedicationDosageForm_1">capsule</td><td ID="MedicationDosageFormCode_1"></td><td ID="MedicationDosageDescription_1"> </td><td ID="MedicationMedicationId_1">16116</td><td ID="MedicationAccount_1">[id number]</td><td ID="MedicationNpid_1">[id number]</td><td ID="MedicationAuthorFirstName_1">Carlos Alberto</td><td ID="MedicationAuthorLastName_1">[place]</td><td ID="MedicationTaxonomyCode_1">[id number]</td><td ID="MedicationTaxonomyDesc_1">Nurse Practitioner</td><td ID="MedicationPhoneNumber_1">[phone]</td> [facility] ([facility] quetiapine 400 MG Oral Tablet [Seroquel] Seroquel 01/09/2020 12 :00:00 AM EDT 400 mg by mouth completed <td ID="Me dicationRxNorm_2">577241</td><td ID="MedicationMedication_2">Seroquel</td><td ID="MedicationRoute_2">by mouth</td><td ID="MedicationRouteConcept_2">F75269</td><td ID="MedicationStartDate_2">01/09/2020</td><td ID="MedicationStopDate_2">03/09/2020</td><td ID="MedicationDosageFrequency_2">at bedtime</td><td ID="MedicationDuration_2">30</td><td ID="MedicationFormulaStrength_2">400 mg</td><td ID="MedicationDosageForm_2">tablet</td><td ID="MedicationDosageFormCode_2"></td><td ID="MedicationDosageDescription_2"></td><td ID="MedicationMedicationId_2">72284</td><td ID="MedicationAccount_2">[id number]</td><td ID="MedicationNpid_2">[id number]</td><td ID="MedicationAuthorFirstName_2">Carlos Alberto</td><td ID="MedicationAuthorLastName_2">[place]</td><td ID="MedicationTaxonomyCode_2">[id number]</td><td ID="MedicationTaxonomyDesc_2">Nurse Practitioner</td><td ID="MedicationPhoneNumber_2">[phone]</td> [facility] ([facility]) gabapentin 300 MG Oral Capsule gabapentin 11/30/2019 12:00:00 AM EDT 300 mg completed <td ID="Medicat ionRxNorm_1">059742</td><td ID="MedicationMedication_1">gabapentin</td><td ID="MedicationRoute_1"></td><td ID="MedicationRouteConcept_1"></td><td ID="MedicationStartDate_1">11/30/2019</td><td ID="MedicationStopDate_1">03/09/2020</td><td ID="MedicationDosageFrequency_1"></td><td ID="MedicationDuration_1">30</td><td ID="MedicationFormulaStrength_1">300 mg</td><td ID="MedicationDosageForm_1">capsule</td><td ID="MedicationDosageFormCode_1"></td><td ID="MedicationDosageDescription_1"></td><td ID="MedicationMedicationId_1">11664</td><td ID="MedicationAccount_1">[id number]</td><td ID="MedicationNpid_1">[id number]</td><td ID="MedicationAuthorFirstName_1">Carlos Alberto</td><td ID="MedicationAuthorLastName_1">[place]</td><td ID="MedicationTaxonomyCode_1">[id number]</td><td ID="MedicationTaxonomyDesc_1">Nurse Practitioner</td><td ID="MedicationPhoneNumber_1">[phone]</td> [facility] ([facility]) 24 HR Metformin hydrochloride 500 MG Ext ended Release Oral Tablet metformin (GLUCOPHAGE-XR) 500 MG 24 hr tablet metformin (GLUCOPHAGE-XR) 500 MG 24 hr tablet 10/16/2014 12:00:00 AM EDT aborted [facility] quetiapine 100 MG Oral Tablet quetiapine (SEROQUEL) 10 0 MG tablet quetiapine (SEROQUEL) 100 MG tablet 09/08/2014 12:00:00 AM EDT aborted [facility] Trazodone Hydrochloride 100 MG Oral Tablet trazodone ( DESYREL) 100 MG tablet trazodone (DESYREL) 100 MG tablet 09/08/2014 12:00:[address] [facility] 24 HR Glipizide 2.5 MG Extended Release Oral Tablet GLIPIZIDE XL 2.5 MG 24 hr tablet GLIPIZIDE XL 2.5 MG 24 hr tablet 01/20/2014 12:00:00 AM EDT aborted [facility] Cholecalciferol 2000 UNT Oral Capsule Vitamin D3 50 mc g (2,000 unit) capsule Vitamin D3 50 mcg (2,000 unit) capsule completed cholecalciferol 0.05 MG Oral Capsule MARTIR ([facility]) Steglatro 15 mg tablet [id number] complete d ertugliflozin 15 MG Oral Tablet [Steglatro] MARTIR ([facility]) Steglatro 5 mg tablet [id number] completed ertugliflozin 5 MG Oral Tablet [Steglatro] MARTIR ([facility]) gabapentin 400 MG Oral Capsule gabapenti n 400 mg capsule TAKE ONE CAPSULE BY MOUTH FOUR TIMES DAILY gabapentin 400 mg capsule TAKE ONE CAPSU LE BY MOUTH FOUR TIMES DAILY completed gabapentin 400 MG Oral Capsule MARTIR ([facility]) Naltrexone hydrochloride 50 MG Oral Tablet naltrexone 50 mg tablet naltrexone 50 mg tablet completed naltrexone hydrochloride 50 MG Oral Tablet MARTIR ([facility]) OneTouch Ultra Blue Test Strip [id number] completed OneTouch Ultra Blue Test Strip MARTIR ([facility]) Trazodone Hydrochloride 100 MG Oral Tabl et trazodone 100 mg tablet TAKE TWO TABLETS BY MOUTH AT BEDTIME trazodone 100 mg tablet TAKE TWO TABLETS BY MOUTH AT BEDTIME completed trazodone hyd rochloride 100 MG Oral Tablet MARTIR ([facility]) tramadol hydrochloride 50 MG Oral Tablet tramadol 50 m g tablet tramadol 50 mg tablet completed tramadol hydroc hloride 50 MG Oral Tablet MARTIR ([facility]) Metformin hydrochloride 850 MG Oral Tabl et metformin 850 mg tablet TAKE ONE TABLET BY MOUTH TWICE DAILY with meals metformin 850 mg tablet TAKE ONE TABLET BY MOUTH TWICE DAILY with meals comple jaylyn metformin hydrochloride 850 MG Oral Tablet MARTIR ([facility]) Acetaminophen 300 MG / Codeine Phosphate 30 MG Oral Tablet acetaminophen 300 mg- codeine 30 mg tablet TAKE ONE TABLET BY MOUTH THREE TIMES DAILY NEEDED FOR SEVERE pain MAX DAILY DOSE THREE TABLETS acetaminophen 300 mg-codeine 30 mg tablet TAKE ONE TABLET BY MOUTH THREE TIMES DAILY NEEDED FOR SEVERE pain MAX DAILY DOSE THREE TABLETS completed acetaminophen 300 MG / codeine phosphate 30 MG Oral Tablet MARTIR ([facility]) Trazodone Hydrochloride 50 MG Oral Table t trazodone 50 mg tablet TAKE ONE TABLET BY MOUTH AT BEDTIME NEEDED trazodone 50 mg tablet TAKE ONE TABLET B Y MOUTH AT BEDTIME NEEDED completed trazodone hydrochloride 50 MG Oral Tablet MARTIR ([facility]) Acetaminophen 300 MG / Codeine Phosphate 30 MG Oral Tablet acetaminophen 300 mg- codeine 30 mg tablet TAKE ONE TABLET BY MOUTH THREE TIMES DAILY NEEDED FOR SEVERE pain MAX DAILY DOSE THREE TABLETS acetaminophen 300 mg-codeine 30 mg tablet TAKE ONE TABLET BY MOUTH THREE TIMES DAILY NEEDED FOR SEVERE pain MAX DAILY DOSE THREE TABLETS completed acetaminophen 300 MG / codeine phosphate 30 MG Oral Tablet MARTIR ([facility]) pen needles mis [id number] completed pen needles mis [id number] [facility]IR ([facility]) meloxicam 15 MG Oral Tablet meloxicam 15 mg tablet meloxicam 15 mg ta blet completed meloxicam 15 MG Oral Tablet MARTIR ([facility]) Trazodone Hydrochloride 50 MG Oral Table t trazodone 50 mg tablet TAKE ONE TABLET BY MOUTH AT BEDTIME NEEDED trazodone 50 mg tablet TAKE ONE TABLET B Y MOUTH AT BEDTIME NEEDED completed trazodone hydrochloride 50 MG Oral Tablet MARTIR ([facility]) tizanidine 2 MG Oral Tablet tizanidine 2 mg tablet tizanidine 2 mg ta blet completed tizanidine 2 MG Oral Tablet M[facility]IR ([facility]) OneTouch Ultra2 Meter kit [id number] compl eted OneTouch Ultra2 Meter kit MARTIR ([facility]) Acetaminophen 300 MG / Codeine Phosphate 30 MG Oral Tablet acetaminophen 300 mg- codeine 30 mg tablet TAKE ONE TABLET BY MOUTH THREE TIMES DAILY NEEDED FOR SEVERE pain MAX DAILY DOSE THREE TABLETS acetaminophen 300 mg-codeine 30 mg tablet TAKE ONE TABLET BY MOUTH THREE TIMES DAILY NEEDED FOR SEVERE pain MAX DAILY DOSE THREE TABLETS completed acetaminophen 300 MG / codeine phosphate 30 MG Oral Tablet M[facility]IR ([facility]) celecoxib 200 MG Oral Capsule celecoxib 200 mg capsule celec oxib 200 mg capsule completed celecoxib 200 MG Oral Capsule M[facility]IR ([facility]) tizanidine 2 MG Oral Tablet tizanidine 2 mg tablet tizanidine 2 mg ta blet completed tizanidine 2 MG Oral Tablet M[facility]IR ([facility]) Steglatro 5 mg tablet TAKE ONE TABLET BY MOUTH ONCE DAILY [id number] completed ertugliflozin 5 MG Oral Tablet [ Steglatro] MARTIR ([facility]) insulin syrg mis 1ml/29g completed insulin syrg mis 1ml/29g [facility]IR ([facility]) Naltrexone hydrochloride 50 MG Oral Tablet naltrexone 50 mg tablet naltrexone 50 mg tablet completed naltrexone hydrochloride 50 MG Oral Tablet M[facility]IR ([facility]) insulin syrg mis 1ml/29g completed insulin syrg mis 1ml/29g M[facility]IR ([facility]) Naltrexone hydrochloride 50 MG Oral Tablet naltrexone 50 mg tablet naltrexone 50 mg tablet completed naltrexone hydrochloride 50 MG Oral Tablet MARTIR ([facility]) Trazodone Hydrochloride 50 MG Oral Table t trazodone 50 mg tablet TAKE ONE TABLET BY MOUTH AT BEDTIME NEEDED trazodone 50 mg tablet TAKE ONE TABLET B Y MOUTH AT BEDTIME NEEDED completed trazodone hydrochloride 50 MG Oral Tablet MARTIR ([facility]) OneTouch Ultra Test strips ONE MISCELLANEOUS THREE TIMES A D AY NEEDED [id number] completed OneTouch Ultra Test strips MARTIR ([facility]) quetiapine 300 MG Oral Tablet quetiapine 300 mg tablet queti apine 300 mg tablet completed quetiapine 300 MG Oral Tablet M[facility]IR ([facility]) tizanidine 2 MG Oral Tablet tizanidine 2 mg tablet tizanidine 2 mg ta blet completed tizanidine 2 MG Oral Tablet [facility]IR ([facility]) insulin syrg mis 0.5/31g completed insulin syrg mis 0.5/31g MARTIR ([facility]) OneTouch Ultra2 Meter kit [id number] compl eted OneTouch Ultra2 Meter kit MARTIR ([facility]) OneTouch Ultra Blue Test Strip [id number] completed OneTouch Ultra Blue Test Strip MARTIR ([facility]) Trazodone Hydrochloride 50 MG Oral Table t trazodone 50 mg tablet TAKE ONE TABLET BY MOUTH AT BEDTIME NEEDED trazodone 50 mg tablet TAKE ONE TABLET B Y MOUTH AT BEDTIME NEEDED completed trazodone hydrochloride 50 MG Oral Tablet MARTIR ([facility]) OneTouch Ultra Blue Test Strip [id number] completed OneTouch Ultra Blue Test Strip MARTIR ([facility]) celecoxib 200 MG Oral Capsule celecoxib 200 mg capsule celec oxib 200 mg capsule completed celecoxib 200 MG Oral Capsule M[facility]IR ([facility]) Steglatro 5 mg tablet [id number] completed ertugliflozin 5 MG Oral Tablet [Steglatro] MARTIR ([facility]) insulin syrg mis 0.5/31g completed insulin syrg mis 0.5/31g MARTIR ([facility]) Steglatro 15 mg tablet [id number] complete d ertugliflozin 15 MG Oral Tablet [Steglatro] DRASCO ([facility]) OneTouch Ultra Blue Test Strip [id number] completed OneTouch Ultra Blue Test Strip DRASCO ([facility]) insulin syrg mis 1ml/29g completed insulin syrg mis 1ml/29g DR[facility] ([facility]) Amoxicillin 500 MG Oral Capsule amoxicillin 500 mg cap willie amoxicillin 500 mg capsule completed amoxicillin 50 0 MG Oral Capsule DRASCO ([facility]) Metformin hydrochloride 850 MG Oral Tabl et metformin 850 mg tablet TAKE ONE TABLET BY MOUTH TWICE DAILY with meals metformin 850 mg tablet TAKE ONE TABLET BY MOUTH TWICE DAILY with meals comple jaylyn metformin hydrochloride 850 MG [facility] empagliflozin 25 MG Oral Tablet [Jardiance] Jardiance 25 mg tablet Jardiance 25 mg tablet completed empagliflozi n 25 MG Oral Tablet [Jardiance] DRASCO ([facility]) Levofloxacin 500 MG Oral Tablet levoflox acin 500 mg tablet TAKE ONE TABLET BY MOUTH ONCE DAILY levofloxacin 500 mg tablet TAKE ONE TABLET BY MOUTH ON CE DAILY completed levofloxacin 5 00 MG Oral Tablet DRASCO ([facility]) Nicotine 2 MG Chewing Gum nicotine (efrain crilex) 2 mg gum CHEW ONE PIECE BY MOUTH EVERY 2 HOURS NEEDED nicotine (polacrilex) 2 mg gum CHEW ONE PIECE BY MOUTH EVERY 2 HOURS NEEDED completed nicotine 2 MG Chewing Gum DRASCO ([facility]) Trazodone Hydrochloride 50 MG Oral Table t trazodone 50 mg tablet TAKE ONE TABLET BY MOUTH AT BEDTIME NEEDED trazodone 50 mg tablet TAKE ONE TABLET B Y MOUTH AT BEDTIME NEEDED completed trazodone hydrochloride 50 MG Oral Tablet MARTIR ([facility]) Levofloxacin 500 MG Oral Tablet levoflox acin 500 mg tablet TAKE ONE TABLET BY MOUTH ONCE DAILY levofloxacin 500 mg tablet TAKE ONE TABLET BY MOUTH ON CE DAILY completed levofloxacin 5 00 MG Oral Tablet DR[facility]CO ([facility]) Trazodone Hydrochloride 100 MG Oral Tabl et trazodone 100 mg tablet TAKE TWO TABLETS BY MOUTH AT BEDTIME trazodone 100 mg tablet TAKE TWO TABLETS BY MOUTH AT BEDTIME completed trazodone hyd rochloride 100 MG Oral Tablet MARTIR ([facility]) meloxicam 15 MG Oral Tablet meloxicam 15 mg tablet TAKE ONE TABLET BY MOUTH ONCE DAILY meloxicam 15 mg tablet TAKE ONE TABLET BY MOUTH ONCE DAILY completed meloxicam 15 MG Oral Tablet ATHE ([facility]) Naltrexone hydrochloride 50 MG Oral Tablet naltrexone 50 mg tablet naltrexone 50 mg tablet completed naltrexone hydrochloride 50 MG Oral Tablet MARTIR ([facility]) OneTouch Ultra2 Meter USE DIRECTED TO TEST BLOOD ÁLVAREZ GAR THREE TIMES DAILY [id number] completed OneTouch Ultra2 Meter DR[facility]CO ([facility]) insulin syrg mis 0.5/31g completed insulin syrg mis 0.5/31g DR[facility]CO ([facility]) Levofloxacin 500 MG Oral Tablet levoflox acin 500 mg tablet TAKE ONE TABLET BY MOUTH ONCE DAILY levofloxacin 500 mg tablet TAKE ONE TABLET BY MOUTH ON CE DAILY completed levofloxacin 5 00 MG Oral Tablet DR[facility]CO ([facility]) insulin syrg mis 0.5/31g completed insulin syrg mis 0.5/31g DR[facility]CO ([facility]) Trazodone Hydrochloride 50 MG Oral Table t traZODone HCl 50 MG Oral Tablet (DESYREL) traZODone HCl 50 MG Oral Tablet (DESYREL) 50 mg Oral aborted Take 50 mg by mouth nightly as needed f or Sleep [facility] Steglatro 15 mg tablet [id number] complete d ertugliflozin 15 MG Oral Tablet [Steglatro] MARTIR ([facility]) Nicotine 2 MG Chewing Gum nicotine (efrain crilex) 2 mg gum CHEW ONE PIECE BY MOUTH EVERY 2 HOURS NEEDED nicotine (polacrilex) 2 mg gum CHEW ONE PIECE BY MOUTH EVERY 2 HOURS NEEDED completed nicotine 2 MG Chewing Gum MARTIR ([facility]) Steglatro 5 mg tablet [id number] completed ertugliflozin 5 MG Oral Tablet [Steglatro] MARTIR ([facility]) tizanidine 4 MG Oral Tablet tiZANidine HCl 4 MG Oral T ablet (ZANAFLEX) tiZANidine HCl 4 MG Oral Tablet (ZANAFLEX) 4 mg Oral aborted Take 4 mg by mouth Three times daily as needed [facility] Naltrexone hydrochloride 50 MG Oral Tablet naltrexone 50 mg tablet naltrexone 50 mg tablet completed naltrexone hydrochloride 50 MG Oral Tablet MARTIR ([facility]) empagliflozin 25 MG Oral Tablet [Jardiance] Jardiance 25 mg tablet Jardiance 25 mg tablet completed empagliflozi n 25 MG Oral Tablet [Jardiance] DRASCO ([facility]) Risperidone 4 MG Oral Tablet risperidone 4 mg tablet risperidone 4 mg tablet completed risperidone 4 MG Oral Tablet DRASCO ([facility]) Levofloxacin 500 MG Oral Tablet levoflox acin 500 mg tablet TAKE ONE TABLET BY MOUTH ONCE DAILY levofloxacin 500 mg tablet TAKE ONE TABLET BY MOUTH ON CE DAILY completed levofloxacin 5 00 MG Oral Tablet DR[facility]CO ([facility]) Ergocalciferol [id number] UNT Oral Capsule Vi tamin D2 1,250 mcg (50,000 unit) capsule Vitamin D2 1,250 mcg (50,000 unit) capsule completed ergocalciferol 1.25 MG Oral Capsule DRASCO ([facility]) Risperidone 4 MG Oral Tablet risperidone 4 mg tablet risperidone 4 mg tablet completed risperidone 4 MG Oral Tablet DRASCO ([facility]) gabapentin 400 MG Oral Capsule gabapenti n 400 mg capsule TAKE ONE CAPSULE BY MOUTH FOUR TIMES DAILY gabapentin 400 mg capsule TAKE ONE CAPSU LE BY MOUTH FOUR TIMES DAILY completed gabapentin 400 MG Oral Capsule [facility]) tramadol hydrochloride 50 MG Oral Tablet tramadol 50 m g tablet tramadol 50 mg tablet completed tramadol hydroc hloride 50 MG Oral Tablet DRASCO ([facility]) OneTouch Ultra2 Meter kit [id number] compl eted OneTouch Ultra2 Meter kit [facility] Cephalexin 500 MG Oral Capsule cephalexin 500 mg capsu le cephalexin 500 mg capsule completed cephalexin 500 MG Oral Capsule DRASCO ([facility]) Regular Insulin, Human 100 UNT/ML Inject able Solution insulin regular (HUMULIN R) 100 UNIT/ML injection insulin regular (HUMULIN R) 100 UNIT/ML injection Subcutaneous aborted Inject into the skin Three times daily before meals. Sliding scale insulin [facility] Acetaminophen 325 MG / Hydrocodone Tete trate 5 MG Oral Tablet hydrocodone 5 mg- acetaminophen 325 mg tablet TAKE ONE TABLET BY MOUTH EVERY SIX HOURS NEEDED FOR PAIN MAX DAILY DOSE FOUR TABLETS hydrocodone 5 mg-acetaminophen 325 mg tablet TAKE ONE TABLET BY MOUTH EVERY SIX HOURS NEEDED FOR PAIN MAX DAILY DOSE FOUR TABLETS completed acetaminophen 325 MG / hydrocodone bitartrate 5 MG Oral Tablet MARTIR ([facility]) Nicotine 2 MG Chewing Gum nicotine (efrain crilex) 2 mg gum CHEW ONE PIECE BY MOUTH EVERY 2 HOURS NEEDED nicotine (polacrilex) 2 mg gum CHEW ONE PIECE BY MOUTH EVERY 2 HOURS NEEDED completed nicotine 2 MG Chewing Gum MARTIR ([facility]) gabapentin 400 MG Oral Capsule gabapenti n 400 mg capsule TAKE ONE CAPSULE BY MOUTH FOUR TIMES DAILY gabapentin 400 mg capsule TAKE ONE CAPSU LE BY MOUTH FOUR TIMES DAILY completed gabapentin 400 MG Oral Capsule MARTIR ([facility]) OneTouch Delica Plus Lancet 33 gauge [id number] completed OneTouch Delica Plus Lancet 33 gauge MARTIR ([facility]) Cephalexin 500 MG Oral Capsule cephalexin 500 mg capsu le cephalexin 500 mg capsule completed cephalexin 500 MG Oral Capsule MARTIR ([facility]) Ergocalciferol [id number] UNT Oral Capsule Vi tamin D2 1,250 mcg (50,000 unit) capsule Vitamin D2 1,250 mcg (50,000 unit) capsule completed ergocalciferol 1.25 MG Oral Capsule MARTIR ([facility]) tizanidine 2 MG Oral Tablet tizanidine 2 mg tablet tizanidine 2 mg ta blet completed tizanidine 2 MG Oral Tablet MARTIR ([facility]) Acetaminophen 300 MG / Codeine Phosphate 30 MG Oral Tablet acetaminophen 300 mg- codeine 30 mg tablet acetaminophen 300 mg-codeine 30 mg tablet completed acetaminophen 300 MG / codeine p hosphate 30 MG Oral Tablet M[facility]IR ([facility]) Cephalexin 500 MG Oral Capsule cephalexin 500 mg capsu le cephalexin 500 mg capsule completed cephalexin 500 MG Oral Capsule MARTIR ([facility]) meloxicam 15 MG Oral Tablet meloxicam 15 mg tablet meloxicam 15 mg ta blet completed meloxicam 15 MG Oral Tablet MARTIR ([facility]) celecoxib 200 MG Oral Capsule celecoxib 200 mg capsule celec oxib 200 mg capsule completed celecoxib 200 MG Oral Capsule MARTIR ([facility]) BD Ultra-Fine Mini Pen Needle 31 gauge x 3/16" USE DIRECTED with insulin pens [id number] completed BD Ultra- Fine Mini Pen Needle 31 gauge x 3/16" MARTIR ([facility]) gabapentin 400 MG Oral Capsule gabapenti n 400 mg capsule TAKE ONE CAPSULE BY MOUTH FOUR TIMES DAILY gabapentin 400 mg capsule TAKE ONE CAPSU LE BY MOUTH FOUR TIMES DAILY completed gabapentin 400 MG Oral Capsule MARTIR ([facility]) quetiapine 200 MG Oral Tablet quetiapine 200 mg tablet TAKE ONE TABLET BY MOUTH EVERY EVENING quetiapine 200 mg tablet TAKE ONE TABLET BY MOUTH EVERY EVEN ING completed quetiapine 200 MG Oral Tablet DR[facility]CO ([facility]) quetiapine 300 MG Oral Tablet quetiapine 300 mg tablet queti apine 300 mg tablet completed quetiapine 300 MG Oral Tablet MARTIR ([facility]) tizanidine 2 MG Oral Tablet tizanidine 2 mg tablet tizanidine 2 mg ta blet completed tizanidine 2 MG Oral Tablet MARTIR ([facility]) Trazodone Hydrochloride 100 MG Oral Tabl et trazodone 100 mg tablet TAKE TWO TABLETS BY MOUTH AT BEDTIME trazodone 100 mg tablet TAKE TWO TABLETS BY MOUTH AT BEDTIME completed trazodone hyd rochloride 100 MG Oral Tablet MARTIR ([facility]) OneTouch Ultra Test strips ONE MISCELLANEOUS THREE TIMES A D AY NEEDED [id number] completed OneTouch Ultra Test strips MARTIR ([facility]) quetiapine 400 MG Oral Tablet quetiapine 400 mg tablet TAKE ONE TABLET BY MOUTH EVERY EVENING quetiapine 400 mg tablet TAKE ONE TABLET BY MOUTH EVERY EVEN ING completed quetiapine 400 MG Oral Tablet MARTIR ([facility]) Trazodone Hydrochloride 50 MG Oral Table t trazodone 50 mg tablet TAKE ONE TABLET BY MOUTH AT BEDTIME NEEDED trazodone 50 mg tablet TAKE ONE TABLET B Y MOUTH AT BEDTIME NEEDED completed trazodone hydrochloride 50 MG Oral Tablet MARTIR ([facility]) Steglatro 5 mg tablet TAKE ONE TABLET BY MOUTH ONCE DAILY [id number] completed ertugliflozin 5 MG Oral Tablet [ Steglatro] DRASCO ([facility]) Steglatro 15 mg tablet [id number] complete d ertugliflozin 15 MG Oral Tablet [Steglatro] MARTIR ([facility]) celecoxib 200 MG Oral Capsule celecoxib 200 mg capsule celec oxib 200 mg capsule completed celecoxib 200 MG Oral Capsule MARTIR ([facility]) Risperidone 4 MG Oral Tablet risperidone 4 mg tablet risperidone 4 mg tablet completed risperidone 4 MG Oral Tablet MARTIR ([facility]) Amoxicillin 500 MG Oral Capsule amoxicillin 500 mg cap willie amoxicillin 500 mg capsule completed amoxicillin 50 0 MG Oral Capsule MARTIR ([facility]) insulin syrg mis 1ml/29g completed insulin syrg mis 1ml/29g MARTIR ([facility]) pen needles mis [id number] completed pen needles mis [id number] MARTIR ([facility]) quetiapine 400 MG Oral Tablet quetiapine 400 mg tablet TAKE ONE TABLET BY MOUTH EVERY EVENING quetiapine 400 mg tablet TAKE ONE TABLET BY MOUTH EVERY EVEN ING completed quetiapine 400 MG Oral Tablet MARTIR ([facility]) OneTouch Ultra2 Meter USE DIRECTED TO TEST BLOOD ÁLVAREZ GAR THREE TIMES DAILY [id number] completed OneTouch Ultra2 Meter MARTIR ([facility]) Risperidone 4 MG Oral Tablet risperidone 4 mg tablet risperidone 4 mg tablet completed risperidone 4 MG Oral Tablet MARTIR ([facility]) Acetaminophen 325 MG / Hydrocodone Tete trate 5 MG Oral Tablet hydrocodone 5 mg- acetaminophen 325 mg tablet TAKE ONE TABLET BY MOUTH EVERY SIX HOURS NEEDED FOR PAIN MAX DAILY DOSE FOUR TABLETS hydrocodone 5 mg-acetaminophen 325 mg tablet TAKE ONE TABLET BY MOUTH EVERY SIX HOURS NEEDED FOR PAIN MAX DAILY DOSE FOUR TABLETS completed acetaminophen 325 MG / hydrocodone bitartrate 5 MG Oral Tablet MARTIR ([facility]) gabapentin 400 MG Oral Capsule gabapenti n 400 mg capsule TAKE ONE CAPSULE BY MOUTH FOUR TIMES DAILY gabapentin 400 mg capsule TAKE ONE CAPSU LE BY MOUTH FOUR TIMES DAILY completed gabapentin 400 MG Oral Capsule MARTIR ([facility]) OneTouch Ultra2 Meter USE DIRECTED TO TEST BLOOD ÁLVAREZ GAR THREE TIMES DAILY [id number] completed OneTouch Ultra2 Meter MARTIR ([facility]) Ibuprofen 800 MG Oral Tablet ibuprofen 8 00 mg tablet TAKE ONE TABLET BY MOUTH EVERY SIX HOURS NEEDED FOR PAIN ibuprofen 800 mg tablet TAKE ONE TABLET BY MOUTH EVERY SIX HOURS NEEDED FOR PAIN completed ibuprofen 800 MG Oral Tablet MARTIR ([facility]) Cholecalciferol 2000 UNT Oral Capsule Vitamin D3 50 mc g (2,000 unit) capsule Vitamin D3 50 mcg (2,000 unit) capsule completed cholecalciferol 0.05 MG Oral Capsule MARTIR ([facility]) Steglatro 5 mg tablet [id number] completed ertugliflozin 5 MG Oral Tablet [Steglatro] MARTIR ([facility]) pen needles mis [id number] completed pen needles mis [id number] MARTIR ([facility]) insulin syrg mis 1ml/29g completed insulin syrg mis 1ml/29g MARTIR ([facility]) quetiapine 400 MG Oral Tablet quetiapine 400 mg tablet TAKE ONE TABLET BY MOUTH EVERY EVENING quetiapine 400 mg tablet TAKE ONE TABLET BY MOUTH EVERY EVEN ING completed quetiapine 400 MG Oral Tablet MARTIR ([facility]) Acetaminophen 325 MG / Hydrocodone Tete trate 5 MG Oral Tablet hydrocodone 5 mg- acetaminophen 325 mg tablet TAKE ONE TABLET BY MOUTH EVERY SIX HOURS NEEDED FOR PAIN MAX DAILY DOSE FOUR TABLETS hydrocodone 5 mg-acetaminophen 325 mg tablet TAKE ONE TABLET BY MOUTH EVERY SIX HOURS NEEDED FOR PAIN MAX DAILY DOSE FOUR TABLETS completed acetaminophen 325 MG / hydrocodone bitartrate 5 MG Oral Tablet MARTIR ([facility]) Acetaminophen 300 MG / Codeine Phosphate 30 MG Oral Tablet acetaminophen 300 mg- codeine 30 mg tablet TAKE ONE TABLET BY MOUTH THREE TIMES DAILY NEEDED FOR SEVERE pain MAX DAILY DOSE THREE TABLETS acetaminophen 300 mg-codeine 30 mg tablet TAKE ONE TABLET BY MOUTH THREE TIMES DAILY NEEDED FOR SEVERE pain MAX DAILY DOSE THREE TABLETS completed acetaminophen 300 MG / codeine phosphate 30 MG Oral Tablet MARTIR ([facility]) Cholecalciferol 2000 UNT Oral Capsule Vitamin D3 50 mc g (2,000 unit) capsule Vitamin D3 50 mcg (2,000 unit) capsule completed cholecalciferol 0.05 MG Oral Capsule MARTIR ([facility]) Cholecalciferol 2000 UNT Oral Capsule Vitamin D3 50 mc g (2,000 unit) capsule Vitamin D3 50 mcg (2,000 unit) capsule completed cholecalciferol 0.05 MG Oral Capsule MARTIR ([facility]) Nicotine 2 MG Chewing Gum nicotine (efrain crilex) 2 mg gum CHEW ONE PIECE BY MOUTH EVERY 2 HOURS NEEDED nicotine (polacrilex) 2 mg gum CHEW ONE PIECE BY MOUTH EVERY 2 HOURS NEEDED completed nicotine 2 MG Chewing Gum MARTIR ([facility]) Amoxicillin 500 MG Oral Capsule amoxicillin 500 mg cap willie amoxicillin 500 mg capsule completed amoxicillin 50 0 MG Oral Capsule MARTIR ([facility]) quetiapine 400 MG Oral Tablet quetiapine 400 mg tablet TAKE ONE TABLET BY MOUTH EVERY EVENING quetiapine 400 mg tablet TAKE ONE TABLET BY MOUTH EVERY EVEN ING completed quetiapine 400 MG Oral Tablet MARTIR ([facility]) Nicotine 2 MG Chewing Gum nicotine (efrain crilex) 2 mg gum CHEW ONE PIECE BY MOUTH EVERY 2 HOURS NEEDED nicotine (polacrilex) 2 mg gum CHEW ONE PIECE BY MOUTH EVERY 2 HOURS NEEDED completed nicotine 2 MG Chewing Gum MARTIR ([facility]) Steglatro 5 mg tablet TAKE ONE TABLET BY MOUTH ONCE DAILY [id number] completed ertugliflozin 5 MG Oral Tablet [ Steglatro] DRASCO ([facility]) gabapentin 400 MG Oral Capsule gabapenti n 400 mg capsule TAKE ONE CAPSULE BY MOUTH FOUR TIMES DAILY gabapentin 400 mg capsule TAKE ONE CAPSU LE BY MOUTH FOUR TIMES DAILY completed gabapentin 400 MG Oral Capsule MARTIR ([facility]) meloxicam 15 MG Oral Tablet meloxicam 15 mg tablet TAKE ONE TABLET BY MOUTH ONCE DAILY meloxicam 15 mg tablet TAKE ONE TABLET BY MOUTH ONCE DAILY completed meloxicam 15 MG Oral Tablet [facility] ([facility]) gabapentin 400 MG Oral Capsule gabapenti n 400 mg capsule TAKE ONE CAPSULE BY MOUTH FOUR TIMES DAILY gabapentin 400 mg capsule TAKE ONE CAPSU LE BY MOUTH FOUR TIMES DAILY completed gabapentin 400 MG Oral Capsule MARTIR ([facility]) meloxicam 15 MG Oral Tablet meloxicam 15 mg tablet meloxicam 15 mg ta blet completed meloxicam 15 MG Oral Tablet [facility] ([facility]) Acetaminophen 325 MG / Hydrocodone Tete trate 5 MG Oral Tablet hydrocodone 5 mg- acetaminophen 325 mg tablet TAKE ONE TABLET BY MOUTH EVERY SIX HOURS NEEDED FOR PAIN MAX DAILY DOSE FOUR TABLETS hydrocodone 5 mg-acetaminophen 325 mg tablet TAKE ONE TABLET BY MOUTH EVERY SIX HOURS NEEDED FOR PAIN MAX DAILY DOSE FOUR TABLETS completed acetaminophen 325 MG / [facility]rate [facility] Acet[facility] 300 MG / Codeine Phosphate 30 MG Oral Tablet acetaminophen 300 mg- codeine 30 mg tablet TAKE ONE TABLET BY MOUTH THREE TIMES DAILY NEEDED FOR SEVERE pain MAX DAILY DOSE THREE TABLETS acetaminophen 300 mg-codeine 30 mg tablet TAKE ONE TABLET BY MOUTH THREE TIMES DAILY NEEDED FOR SEVERE pain MAX DAILY DOSE THREE TABLETS completed acetaminophen 300 MG / codeine phosphate 30 MG Oral Tablet [facility] ([facility]) Trazodone Hydrochloride 50 MG Oral Table t trazodone 50 mg tablet TAKE ONE TABLET BY MOUTH AT BEDTIME NEEDED trazodone 50 mg tablet TAKE ONE TABLET B Y MOUTH AT BEDTIME NEEDED completed trazodone hydrochloride 50 MG Oral Tablet [facility] ([facility]) Metformin hydrochloride 850 MG Oral Tabl et metformin 850 mg tablet TAKE ONE TABLET BY MOUTH TWICE DAILY with meals metformin 850 mg tablet TAKE ONE TABLET BY MOUTH TWICE DAILY with meals comple jaylyn metformin hydrochloride 850 MG Oral Tablet [facility] ([facility]) Cephalexin 500 MG Oral Capsule cephalexin 500 mg capsu le cephalexin 500 mg capsule completed cephalexin 500 MG Oral Capsule [facility] ([facility]) Steglatro 5 mg tablet TAKE ONE TABLET BY MOUTH ONCE DAILY [id number] completed ertugliflozin 5 MG Oral Tablet [ Steglatro] [facility] ([facility]) OneTouch Ultra2 Meter USE DIRECTED TO TEST BLOOD ÁLVAREZ GAR THREE TIMES DAILY [id number] completed OneTouch Ultra2 Meter [facility] ([facility]) Metformin hydrochloride 850 MG Oral Tabl et metformin 850 mg tablet TAKE ONE TABLET BY MOUTH TWICE DAILY with meals metformin 850 mg tablet TAKE ONE TABLET BY MOUTH TWICE DAILY with meals comple jaylyn metformin hydrochloride 850 MG Oral Tablet [facility] ([facility]) Steglatro 15 mg tablet [id number] complete d ertugliflozin 15 MG Oral Tablet [Steglatro] [facility] ([facility]) meloxicam 15 MG Oral Tablet meloxicam 15 mg tablet meloxicam 15 mg ta blet completed meloxicam 15 MG Oral Tablet [facility] ([facility]) OneTouch Ultra2 Meter kit [id number] compl eted OneTouch Ultra2 Meter kit [facility] ([facility]) Metformin hydrochloride 850 MG Oral Tabl et metformin 850 mg tablet TAKE ONE TABLET BY MOUTH TWICE DAILY with meals metformin 850 mg tablet TAKE ONE TABLET BY MOUTH TWICE DAILY with meals comple jaylyn metformin hydrochloride 850 MG Oral Tablet [facility] ([facility]) pen needles mis [id number] completed pen needles mis [id number] [facility] ([facility]) Metformin hydrochloride 850 MG Oral Tabl et metformin 850 mg tablet TAKE ONE TABLET BY MOUTH TWICE DAILY with meals metformin 850 mg tablet TAKE ONE TABLET BY MOUTH TWICE DAILY with meals comple jaylyn metformin hydrochloride 850 MG Oral Tablet [facility] ([facility]) tramadol hydrochloride 50 MG Oral Tablet tramadol 50 m g tablet tramadol 50 mg tablet completed tramadol hydroc hloride 50 MG Oral Tablet [facility] ([facility]) gabapentin 300 MG Oral Capsule gabapenti n 300 mg capsule TAKE TWO CAPSULES BY MOUTH THREE TIMES DAILY gabapentin 300 mg capsule TAKE TWO CAPSU LES BY MOUTH THREE TIMES DAILY completed cari pentin 300 MG Oral Capsule [facility] ([facility]) quetiapine 400 MG Oral Tablet quetiapine 400 mg tablet TAKE ONE TABLET BY MOUTH EVERY EVENING quetiapine 400 mg tablet TAKE ONE TABLET BY MOUTH EVERY EVEN ING completed quetiapine 400 MG Oral Tablet [facility] ([facility]) Amoxicillin 500 MG Oral Capsule amoxicillin 500 mg cap willie amoxicillin 500 mg capsule completed amoxicillin 50 0 MG Oral Capsule [facility] ([facility]) empagliflozin 25 MG Oral Tablet [Jardiance] Jardiance 25 mg tablet Jardiance 25 mg tablet completed empagliflozi n 25 MG Oral Tablet [Jardiance] [facility] ([facility]) Steglatro 5 mg tablet [id number] completed ertugliflozin 5 MG Oral Tablet [Steglatro] [facility] ([facility]) meloxicam 15 MG Oral Tablet meloxicam 15 mg tablet meloxicam 15 mg ta blet completed meloxicam 15 MG Oral Tablet [facility] ([facility]) Cephalexin 500 MG Oral Capsule cephalexin 500 mg capsu le cephalexin 500 mg capsule completed cephalexin 500 MG Oral Capsule [facility] ([facility]) empagliflozin 25 MG Oral Tablet [Jardiance] Jardiance 25 mg tablet Jardiance 25 mg tablet completed empagliflozi n 25 MG Oral Tablet [Jardiance] [facility] ([facility]) tramadol hydrochloride 50 MG Oral Tablet tramadol 50 m g tablet tramadol 50 mg tablet completed tramadol hydroc hloride 50 MG Oral Tablet [facility] ([facility]) OneTouch Ultra Blue Test Strip 537814 completed OneTouch Ultra Blue Test Strip [facility] ([facility]) OneTouch Delica Plus Lancet 33 gauge 395430 completed OneTouch Delica Plus Lancet 33 gauge [facility] ([facility]) pen needles mis [id number] completed pen needles mis [id number] [facility] ([facility]) Trazodone Hydrochloride 100 MG Oral Tabl et trazodone 100 mg tablet TAKE TWO TABLETS BY MOUTH AT BEDTIME trazodone 100 mg tablet TAKE TWO TABLETS BY MOUTH AT BEDTIME completed trazodone hyd rochloride 100 MG Oral Tablet [facility] ([facility]) celecoxib 200 MG Oral Capsule celecoxib 200 mg capsule celec oxib 200 mg capsule completed celecoxib 200 MG Oral Capsule [facility] ([facility]) Risperidone 4 MG Oral Tablet risperidone 4 mg tablet risperidone 4 mg tablet completed risperidone 4 MG Oral Tablet [facility] ([facility]) Nicotine 2 MG Chewing Gum nicotine (efrain crilex) 2 mg gum CHEW ONE PIECE BY MOUTH EVERY 2 HOURS NEEDED nicotine (polacrilex) 2 mg gum CHEW ONE PIECE BY MOUTH EVERY 2 HOURS NEEDED completed nicotine 2 MG Chewing Gum [facility] ([facility]) BD Insulin Syringe Ultra-Fine 1 mL 30 ga uge x 1/2" use as directed to inject insulin five times a day ud [id number] completed BD Insulin Syringe Ultra-Fine 1 mL 30 gauge x 1/2" [facility] ([facility]) Cholecalciferol 2000 UNT Oral Capsule Vitamin D3 50 mc g (2,000 unit) capsule Vitamin D3 50 mcg (2,000 unit) capsule completed cholecalciferol 0.05 MG Oral Capsule [facility] ([facility]) tramadol hydrochloride 50 MG Oral Tablet tramadol 50 m g tablet tramadol 50 mg tablet completed tramadol hydroc hloride 50 MG Oral Tablet [facility] ([facility]) Clonazepam 0.5 MG Oral Tablet clonazepam 0.5 mg tablet Take by oral route for 15 days. clonazepam 0.5 mg tablet Take by oral route for 15 days. completed clonazepam 0.5 MG Oral Tablet AT [facility] ([facility]) empagliflozin 25 MG Oral Tablet [Jardiance] Jardiance 25 mg tablet Jardiance 25 mg tablet completed empagliflozi n 25 MG Oral Tablet [Jardiance] [facility] ([facility]) Amoxicillin 500 MG Oral Capsule amoxicillin 500 mg cap willie amoxicillin 500 mg capsule completed amoxicillin 50 0 MG Oral Capsule [facility] ([facility]) Trazodone Hydrochloride 100 MG Oral Tabl et trazodone 100 mg tablet TAKE TWO TABLETS BY MOUTH AT BEDTIME trazodone 100 mg tablet TAKE TWO TABLETS BY MOUTH AT BEDTIME completed trazodone hyd rochloride 100 MG Oral Tablet [facility] ([facility]) OneTouch Ultra2 Meter USE DIRECTED TO TEST BLOOD ÁLVAREZ GAR THREE TIMES DAILY 428037 completed OneTouch Ultra2 Meter [facility] ([facility]) OneTouch Ultra2 Meter kit [id number] compl eted OneTouch Ultra2 Meter kit [facility] ([facility]) insulin syrg mis 0.5/31g completed insulin syrg mis 0.5/31g [facility] ([facility]) Nicotine 2 MG Chewing Gum nicotine (efrain crilex) 2 mg gum CHEW ONE PIECE BY MOUTH EVERY 2 HOURS NEEDED nicotine (polacrilex) 2 mg gum CHEW ONE PIECE BY MOUTH EVERY 2 HOURS NEEDED completed nicotine 2 MG Chewing Gum [facility] ([facility]) Insurance Providers Payer name Policy type / Coverage type Policy ID Covered alliance party ID Covered alliance party's relationship to beard Policy Beard Plan Information BC HMOBLUE OPTION MC 2 [id number] MEDICAID M [id number] Self [id number] BC HMOBLUE OPTION MC 2 [id number] EXCELLUS I [id number] Self [id number] MEDICAID [id number] Shefali [id number] ONEAL MEDICAID [id number] Shefali 7 [id number] ONEAL I [id number] Self [id number] ONEAL I [id number] Self [id number] DENTAL DENTAQUEST I [id number] Self [id number] ONEAL MEDICAID [id number] Shefali 7 [id number] [facility] Community Plan Commercial [id number] Self [facility] Community Plan Medigap Part B [id number] Self [id number] [facility] Community Plan Medigap Part B [id number] Self [id number] Managed Care - Community Plan [facility] P [id number] S [id number] Medicaid S [id number] S [id number] Managed Care - Community Plan [facility] P [id number] S [id number] Managed Care - Community Plan [facility] P [id number] S [id number] [place] [id number] Self [id number] [place] [id number] Self [id number] [place] [id number] Self [id number] [place] Med[place] [id number] Self [id number] [facility] Community Plan Commercial [id number] Self [id number] Medicaid S [id number] S [id number] [place] Medigap [place] [id number] Self [id number] Managed Care - Community Plan [facility] P [id number] S [id number] [facility] Community Plan Commercial [id number] Self [id number] Managed Care - [facility] Community Plan P [id number] S [id number] [place] Med[place] Part [place] [id number] Self [id number] [facility] Community Plan Commercial [id number] Self [id number] Medicaid S [id number] S [id number] Managed Care - [facility] Community Plan P [id number] S [id number] [facility] MEDICAID [id number] Self [id number] [facility] I [id number] Self [id number] [facility] [id number] Self [id number] MH OPTUM [id number] Self [id number] [facility] I [id number] Self [id number] BLUE CHOICE OPTION O [id number] S [id number] [employer] 2 [id number] 1 [id number] SELFPAY 5 UNAVAILABLE 1 UNAVAILA BLE MEDICAID 3 [id number] BLUE CHOICE OPTIONS 7 [id number] BC HMOBLUE OPTION MC 2 [id number] [facility] 2 [id number] 1 [id number] [place] [id number] 1 [id number] BC HMOBLUE OPTION MC 2 [id number] [place] O [id number] S [id number] MEDICAID W [id number] S [id number] BCBS CN[place] O [id number] S [id number] SELF PAY UNAVA[place] B[place] 3 [id number] [facility] [id number] SP [id number] O UNAVAILABLE UNAVAILA BLE [facility] [id number] SP [id number] [facility] HMO [id number] SP [id number] EMEDNY [id number] SP [id number] [facility] [id number] SP [id number] [facility] [id number] SP [id number] [facility] [id number] S [id number] [facility] [id number] SP [id number] [facility] [id number] [facility]-Medicaid [id number] ANSI-Medicaid [id number] [facility]) O [id number] S [id number] ANS-Medicaid [id number] ANS-Medicaid [id number] MEDICAID [id number] SP [id number] [facility] [id number] SP [id number] Self Pay P [id number] S [id number] Self Pay P UNAVAILABLE S UNAVAILA BLE [facility] Community Plan Commercial [id number] Self [id number] [facility] Community Plan Commercial [id number] Self [id number] [facility] O [id number] S [id number] [facility]) O [id number] S [id number] [facility] Community Plan Commercial [id number] Self [id number] [facility] Community Plan Commercial [id number] Self [id number] ONEAL [id number] SP [id number] D Managed [facility] P [id number] S [id number] [place] O [id number] S [id number] [facility] DEPT.OF CORRECTIONAL [id number] SP [id number] STPP Wrap [id number] Oneal [id number] [place] W [id number] S 74 [id number] [place] U[place] S UN AVAILABLE MEDICAID W [id number] S [id number] HMO BLUE OPTION W [id number] S [id number] Problems, Conditions, and Diagnoses Code Display Name Description Problem Type Effective Dates Data Source(s) Z7984 terminal worker (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 of oral 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 emic drugs terminal worker (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 of oral hypoglycemic drugs Diagnosis 02/27/2021 10:13:00 PM EDT [facility] H62444 Nicotine dependence, unspecified, uncomp licated Nicotine dependence, unspecified, uncomplicated Diagnosis 02/27/2021 10:13:00 PM EDT [facility] E1165 Type 2 diabetes mellitus with hyperglyce elroy Type 2 diabetes mellitus with hyperglycemia Diagnosis 02/27/2021 10:13:00 PM EDT [facility] J14821 CONTACT WITH AND SUSPECTED EXPOSURE TO C OVID-19 CONTACT WITH AND SUSPECTED EXPOSURE TO COVID-19 Diagnosis 02/01/2021 11:44:00 PM EDT [facility] F329 Major depressive disorder, single episod e, unspecified Major depressive disorder, single episode, unspecified Diagnosis 02/01/2021 11:44:00 PM EDT [facility] 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 Diagnosis 02/01/2021 11:44:00 PM EDT [facility] R443 Hallucinations, unspecified Hallucinations, unspecifie d Diagnosis 02/01/2021 11:44:00 PM EDT [facility] Z72.0 Tobacco use Tobacco use Diagnosis 11/06/2020 09:33:19 AM EDT [facility] F20.0 Paranoid schizophrenia Paranoid schizophrenia Diagnosi s 11/06/2020 09:33:09 AM EDT [facility] Z79.4 FPC (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 of insulin terminal worker (cu rrent) use of insulin Diagnosis 11/06/2020 09:33:04 AM EDT [facility] E11.9 Type 2 diabetes mellitus without complic ations Type 2 diabetes mellitus without complications Diagnosis 11/06/2020 09:33:04 AM EDT [facility] hypotension hypotension Diagnosis 10/30/2020 09:24:00 AM EDT [facility] Hypotension Hypotension Diagnosis 10/30/2020 09:24:00 AM EDT [facility] E86.0 Dehydration Dehydration Diagnosis 10/30/2020 09:24:00 AM EDT [facility] I95.9 Hypotension, unspecified Hypotension, unspecified Diag nosis 10/30/2020 09:24:00 AM EDT [facility] psych transfer psych transfer Diagnosis 10/28/2020 04:13: 00 PM EDT [facility] Psychiatric Evaluation Psychiatric Evaluation Diagnosi s 10/28/2020 04:13:00 PM EDT [facility] F51.02 Adjustment insomnia Adjustment insomnia Diagnosis 0 10/28/2020 04:13:00 PM EDT [facility] 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20 Alcohol dependence, uncomplicated Alcohol Use Di sorder, Moderate Condition 04/15/2021 12:00:00 AM EDT [facility] ([facility]) F20.0 Paranoid schizophrenia Paranoid schizophrenia Conditio n 04/15/2021 12:00:00 AM EDT [facility] ([facility]) [id number] Adult health examination Adult Health Examination Prob emily 03/18/2021 12:00:00 AM EDT [facility] ([facility]) [id number] Mixed anxiety and depressive disorder Mi xed Anxiety and Depressive Disorder Problem 03/18/2021 12:00:00 AM EDT [facility] ([facility]) [id number] Homeless Homeless Problem 01/16/2021 12:00:00 AM ED T [facility] ([facility]) F20.9 Schizophrenia, unspecified Schizophrenia Condition 10/08/2020 12:00:00 AM EDT [facility] ([facility]) [id number] Clinical finding Clinical Finding Problem 12:00:00 AM EDT - 06/13/2020 12:00:00 AM EST [facility] ([facility]) [id number] Clinical finding Clinical Finding Problem 12:00:00 AM EDT - 06/13/2020 12:00:00 AM EST [facility] ([facility]) [id number] Clinical finding Clinical Finding Problem 12:00:00 AM EDT - 06/13/2020 12:00:00 AM EST [facility] ([facility]) [id number] Clinical finding Clinical Finding Problem 12:00:00 AM EDT - 06/13/2020 12:00:00 AM EST [facility] ([facility]) [id number] Clinical finding Clinical Finding Problem 018 12:00:00 AM EST - 06/13/2020 12:00:00 AM EST [facility] ([facility]) [id number] Clinical finding Clinical Finding Problem 018 12:00:00 AM EST - 06/13/2020 12:00:00 AM EST [facility] ([facility]) [id number] Clinical finding Clinical Finding Problem 018 12:00:00 AM EST - 06/13/2020 12:00:00 AM EST [facility] ([facility]) [id number] Clinical finding Clinical Finding Problem 018 12:00:00 AM EST - 06/13/2020 12:00:00 AM EST [facility] ([facility]) [id number] Procedure Procedure Problem 12/02/2017 12:0 0:00 AM EDT - 06/13/2020 12:00:00 AM EST [facility] ([facility]) [id number] Procedure Procedure Problem 12/02/2017 12:0 0:00 AM EDT - 06/13/2020 12:00:00 AM EST [facility] ([facility]) [id number] Procedure Procedure Problem 12/02/2017 12:0 0:00 AM EDT - 06/13/2020 12:00:00 AM EST [facility] ([facility]) [id number] Procedure Procedure Problem 12/02/2017 12:0 0:00 AM EDT - 06/13/2020 12:00:00 AM EST [facility] ([facility]) [id number] SNOMED CT Concept SNOMED CT Concept Problem 12/10 12:00:00 AM EDT - 06/13/2020 12:00:00 AM EST [facility] ([facility]) [id number] SNOMED CT Concept SNOMED CT Concept Problem 12/10 12:00:00 AM EDT - 06/13/2020 12:00:00 AM EST [facility] ([facility]) [id number] SNOMED CT Concept SNOMED CT Concept Problem 12/10 12:00:00 AM EDT - 06/13/2020 12:00:00 AM EST [facility] ([facility]) [id number] SNOMED CT Concept SNOMED CT Concept Problem 12/10 12:00:00 AM EDT - 06/13/2020 12:00:00 AM EST [facility] ([facility]) Surgeries/Procedures Procedure Description Date Indications Data Source(s) Extended Individual Psychotherapy - 45 min 04/15/2021 12:00:00 AM EDT - 04/15/2021 12:00:00 AM EDT [facility] ([facility]) Extended Individual Psychotherapy - 45 min 12:00:00 AM EDT [facility] ([facility]) Brief Individual Psychotherapy - 30 min 03/21/2021 12:00:00 AM EDT - 03/21/2021 12:00:00 AM EDT [facility] ([facility]) Brief Individual Psychotherapy - 30 min 03/19/2021 12: 00:00 AM EDT [facility] ([facility]) POCT GLUCOSE, DOCKED <td>POCT GLUCOSE, DOCKED</td ><td>Routine</td><td>03/06/2021 8:54 AM EDT</td><td></td><td> </td> 03/06/2021 08:54:00 AM [facility] GLUCOSE QUANTITATIVE BLOOD XCPT REAGENT STRIP <td>POCT GLUCOSE, DOCKED</td><td>Routine</td><td>03/05/2021 9:20 PM EDT</td><td></td><td> </td> 03/05/2021 09:20:00 PM [facility] GLUCOSE QUANTITATIVE BLOOD XCPT REAGENT STRIP <td>POCT GLUCOSE, DOCKED</td><td>Routine</td><td>03/05/2021 5:21 PM EDT</td><td></td><td> </td> 03/05/2021 05:21:00 PM [facility] GLUCOSE QUANTITATIVE BLOOD XCPT REAGENT STRIP <td>POCT GLUCOSE, DOCKED</td><td>Routine</td><td>03/05/2021 12:47 PM EDT</td><td></td><td> </td> 03/05/2021 12:47:00 PM [facility] GLUCOSE QUANTITATIVE BLOOD XCPT REAGENT STRIP <td>POCT GLUCOSE, DOCKED</td><td>Routine</td><td>03/05/2021 8:44 AM EDT</td><td></td><td> </td> 03/05/2021 08:44:00 AM [facility] GLUCOSE QUANTITATIVE BLOOD XCPT REAGENT STRIP <td>POCT GLUCOSE, DOCKED</td><td>Routine</td><td>03/04/2021 8:49 PM EDT</td><td></td><td> </td> 03/04/2021 08:49:00 PM [facility] GLUCOSE QUANTITATIVE BLOOD XCPT REAGENT STRIP <td>POCT GLUCOSE, DOCKED</td><td>Routine</td><td>03/04/2021 5:12 PM EDT</td><td></td><td> </td> 03/04/2021 05:12:00 PM [facility] GLUCOSE QUANTITATIVE BLOOD XCPT REAGENT STRIP <td>POCT GLUCOSE, DOCKED</td><td>Routine</td><td>03/04/2021 12:47 PM EDT</td><td></td><td> </td> 03/04/2021 12:47:00 PM [facility] GLUCOSE QUANTITATIVE BLOOD XCPT REAGENT STRIP <td>POCT GLUCOSE, DOCKED</td><td>Routine</td><td>03/04/2021 8:38 AM EDT</td><td></td><td> </td> 03/04/2021 08:38:00 AM [facility] GLUCOSE QUANTITATIVE BLOOD XCPT REAGENT STRIP <td>POCT GLUCOSE, DOCKED</td><td>Routine</td><td>03/03/2021 8:59 PM EDT</td><td></td><td> </td> 03/03/2021 08:59:00 PM [facility] GLUCOSE QUANTITATIVE BLOOD XCPT REAGENT STRIP <td>POCT GLUCOSE, DOCKED</td><td>Routine</td><td>03/03/2021 5:37 PM EDT</td><td></td><td> </td> 03/03/2021 05:37:00 PM [facility] GLUCOSE QUANTITATIVE BLOOD XCPT REAGENT STRIP <td>POCT GLUCOSE, DOCKED</td><td>Routine</td><td>03/03/2021 12:42 PM EDT</td><td></td><td> </td> 03/03/2021 12:42:00 PM [facility] GLUCOSE QUANTITATIVE BLOOD XCPT REAGENT STRIP <td>POCT GLUCOSE, DOCKED</td><td>Routine</td><td>03/03/2021 8:50 AM EDT</td><td></td><td> </td> 03/03/2021 08:50:00 AM [facility] GLUCOSE QUANTITATIVE BLOOD XCPT REAGENT STRIP <td>POCT GLUCOSE, DOCKED</td><td>Routine</td><td>03/02/2021 8:10 PM EDT</td><td></td><td> </td> 03/02/2021 08:10:00 PM [facility] Brief Individual Psychotherapy - 30 min 02/26/2021 12:00:00 AM EDT - 02/26/2021 12:00:00 AM EDT [facility] ([facility]) Brief Individual Psychotherapy - 30 min 02/26/2021 12: 00:00 AM EDT [facility] ([facility]) MRI, lumbar spine, w/o contrast 02/05/2021 12:00:00 AM EDT [facility] ([facility]) MRI, hip, w/o contrast 02/05/2021 12:00:00 AM EDT [facility] ([facility]) MRI, hip, w/o contrast 02/05/2021 12:00:00 AM EDT [facility] ([facility]) OFFICE OUTPATIENT VISIT 15 MINUTES 01/31 12:00:00 AM EDT - 01/31/2021 12:00:00 AM EDT [facility] ([facility]) OFFICE OUTPATIENT VISIT 15 MINUTES 01/31/2021 12:00:00 AM EDT [facility] ([facility]) Extended Individual Psychotherapy - 45 min 01/31/2021 12:00:00 AM EDT - 01/31/2021 12:00:00 AM EDT [facility] ([facility]) Extended Individual Psychotherapy - 45 min 12:00:00 AM EDT [facility] ([facility]) OFFICE OUTPATIENT VISIT 15 MINUTES 12/13 12:00:00 AM EDT - 12/13/2020 12:00:00 AM EDT [facility] ([facility]) OFFICE OUTPATIENT VISIT 15 MINUTES 12/13/2020 12:00:00 AM EDT [facility] ([facility]) MHC Telemed E/M Lvl 3--Est pt 11/22/2020 12:00:00 AM EDT - 11/22/2020 12:00:00 AM EDT [facility] ([facility]) MHC Telemed E/M Lvl 3--Est pt 11/22/2020 12:00:00 AM E DT [facility] ([facility]) OFFICE OUTPATIENT VISIT 15 MINUTES 10/18 12:00:00 AM EDT - 10/18/2020 12:00:00 AM EDT [facility] ([facility]) Psychotherapy ADD ON - 30 Minutes 10/18/2020 12:00:00 AM EDT [facility] ([facility]) OFFICE OUTPATIENT VISIT 15 MINUTES 10/18/2020 12:00:00 AM EDT [facility] ([facility]) Brief Individual Psychotherapy - 30 min 10/08/2020 12:00:00 AM EDT - 10/08/2020 12:00:00 AM EDT [facility] ([facility]) Brief Individual Psychotherapy - 30 min 10/08/2020 12: 00:00 AM EDT [facility] ([facility]) OFFICE OUTPATIENT VISIT 15 MINUTES 10/01 12:00:00 AM EDT - 10/01/2020 12:00:00 AM EDT [facility] ([facility]) OFFICE OUTPATIENT VISIT 15 MINUTES 10/01/2020 12:00:00 AM EDT [facility] ([facility]) TEMPMHCTelemed--Crisis Brief 08/27/2020 12:00:00 AM EST - 08/27/2020 12:00:00 AM EST [facility] ([facility]) TEMPMHCTelemed--Crisis Brief 08/27/2020 12:00:00 AM ES T [facility] ([facility]) Brief Individual Psychotherapy - 30 min 08/03/2020 12:00:00 AM EST - 08/03/2020 12:00:00 AM EST [facility] ([facility]) Brief Individual Psychotherapy - 30 min 08/02/2020 12: 00:00 AM EST [facility] ([facility]) MHC Telemed E/M Lvl 3--Est pt 07/10/2020 12:00:00 AM EST - 07/10/2020 12:00:00 AM EST [facility] ([facility]) MHC Telemed E/M Lvl 3--Est pt 07/10/2020 12:00:[address] [facility] ([facility]) Brief Individual Psychotherapy - 30 min 06/14/2020 12:00:00 AM EST - 06/14/2020 12:00:00 AM EST [facility] ([facility]) Brief Individual Psychotherapy - 30 min 06/14/2020 12: 00:00 AM EST [facility] ([facility]) OFFICE OUTPATIENT VISIT 15 MINUTES 06/12 12:00:00 AM EST - 06/12/2020 12:00:00 AM EST [facility] ([facility]) OFFICE OUTPATIENT VISIT 15 MINUTES 06/12/2020 12:00:00 AM EST [facility] ([facility]) Brief Individual Psychotherapy - 30 min 04/24/2020 12:00:00 AM EDT - 04/24/2020 12:00:00 AM EDT [facility] ([facility]) Brief Individual Psychotherapy - 30 min 04/24/2020 12: 00:00 AM EDT [facility] ([facility]) OFFICE OUTPATIENT VISIT 15 MINUTES 04/09 12:00:00 AM EDT - 04/09/2020 12:00:00 AM EDT [facility] ([facility]) OFFICE OUTPATIENT VISIT 15 MINUTES 04/09/2020 12:00:00 AM EDT [facility] ([facility]) Brief Individual Psychotherapy - 30 min 04/02/2020 12:00:00 AM EDT - 04/02/2020 12:00:00 AM EDT [facility] ([facility]) Brief Individual Psychotherapy - 30 min 04/02/2020 12: 00:00 AM EDT [facility] ([facility]) Results ID Date Data Source [id number] 04/22/2021 12:00:00 AM EDT [facility] ([facility]) Name Value Range Interpretation Code Description Data Fabiola rce(s) Supporting Document(s) SARS-CoV-2 (COVID-19) RNA [Presence] in Respiratory specimen by WILEY with probe detection negative negative Sars-cov-2 [facility] ([facility]) ID Date Data Source [id number] 04/22/2021 12:00:00 AM EDT [facility] ([facility]) Name Value Range Interpretation Code Description Data Fabiola rce(s) Supporting Document(s) ID Date Data Source [id number] 04/22/2021 12:00:00 AM EDT [facility] Name Value Range Interpretation Code Description Data Fabiola rce(s) Supporting Document(s) SARS-CoV-2 NEGATIVE [facility] This lab was ordered by [facility] and reported by [facility]. ID Date Data Source [id number] 03/15/2021 11:26:00 AM EDT [facility] ([facility]) Name Value Range Interpretation Code Description Data Fabiola rce(s) Supporting Document(s) Blood Glucose: mg/dl Blood Glucose: mg/dl [facility] ([facility]) ID Date Data Source [id number] 03/06/2021 10:25:59 PM EDT [facility] Name Value Range Interpretation Code Description Data Fabiola rce(s) Supporting Document(s) Discharge Summary [facility] DEEUXb9kRgNRVuEg64/ECIeyOYGni7XeSBtuBJx5YOqhVAJkB2UeLMZ3eR5qZHG8YFfGDeUlFxScJOA8 lbm [file] Q+rosa elena/gs3gKT+B13Vf4ES0UPiQjc4gWT7X17gL2ZeTiy/h9/AG+hD/Hh4ECTD3iEk8lVDX2u1QWlG8GC2 [file] AgICAgICAgICAgICAgICAgICAgICAgICAgICAgICAg ICAgICAgICAgICAgICAgICAgICAgICAgICAgICAgICANCiAgICAgICAgICAgICAgICAgICAgICAgICAg ICAgICAgICAgICAgICAgICAgICAgICAgICAgICAgICAgICAgICAgICAgICAgICAgICAgICAgICAgICAg ICAgICAgICAgICAgICANCiAgICAgICAgICAgICAgIC AgICAgICAgICAgICAgICAgICAgICAgICAgICAgICAgICAgICAgICAgICAgICAgICAgICAgICAgICAgIC AgICAgICAgICAgICAgICAgICAgICAgICANCiAgICAgICAgICAgICAgICAgICAgICAgICAgICAgICAgIC AgICAgICAgICAgICAgICAgICAgICAgICAgICAgICAg ICAgICAgICAgICAgICAgICAgICAgICAgICAgICAgICAgICANCiAgICAgICAgICAgICAgICAgICAgICAg ICAgICAgICAgICAgICAgICAgICAgICAgICAgICAgICAgICAgICAgICAgICAgICAgICAgICAgICAgICAg ICAgICAgICAgICAgICAgICANCiAgICAgICAgICAgIC AgICAgICAgICAgICAgICAgICAgICAgICAgICAgICAgICAgICAgICAgICAgICAgICAgICAgICAgICAgIC AgICAgICAgICAgICAgICAgICAgICAgICAgICANCiAgICAgICAgICAgICAgICAgICAgICAgICAgICAgIC AgICAgICAgICAgICAgICAgICAgICAgICAgICAgICAg ICAgICAgICAgICAgICAgICAgICAgICAgICAgICAgICAgICAgICANCiAgICAgICAgICAgICAgICAgICAg ICAgICAgICAgICAgICAgICAgICAgICAgICAgICAgICAgICAgICAgICAgICAgICAgICAgICAgICAgICAg ICAgICAgICAgICAgICAgICAgICANCiAgICAgICAgIC AgICAgICAgICAgICAgICAgICAgICAgICAgICAgICAgICAgICAgICAgICAgICAgICAgICAgICAgICAgIC AgICAgICAgICAgICAgICAgICAgICAgICAgICAgICANCiAgICAgICAgICAgICAgICAgICAgICAgICAgIC AgICAgICAgICAgICAgICAgICAgICAgICAgICAgICAg ICAgICAgICAgICAgICAgICAgICAgICAgICAgICAgICAgICAgICAgICANCjw/qZSqD0xfmYLeybF7X6fn Eq4ZAr4AGM5wi7IrKEYlRGrjlpHjAbtKRgYcPOXlIcjLMbx8TZyjMT9VxFZyE1IlI0XgNCvqKG9EYEQp LDBarILwJVOuNGPwZsK8NYMtQLmuHI6VuLVgHVqhPW CvVSTgOwDbMPGeCPBfJWArGPCiXWDOPNApEIQuLqJlWPCdSANtNAkdJUYVVSJ9TIKhOvXbCJlaMG5Hp5 GdpWM1EVk+Fn1CBH7dz7OvEUh9GzDcBC7asi2JTAiQSnZxS1RaulB4QZF6YHRtIh4XRKVeSMYcpVA2LT HaBRTJHgUyY9YuaG54RHIBIu9+DQplbmRvYmoNCjU0 MFQlo7TaBEa4JV8CTVWdBNy5zTUqUByrQ2nncdfkBGU1gK8zuctqAkggJUdvBMDUXBwyv61nIPahbDIl jbcePTCHFVG8LWdgIY9eXRJaRCZ2HfHuHUZICM2VQBHiVCXwuLVbNVPbWSFNCE1TEZigOTU0SEBemqHt xKIzXVawHX6XGNVkvpArMPTtMDUIKXp+Wi9MZN2gx5 QsMKc9GJPtQC4hcx1ZEHkTBaDgZ9W4hDMaB5B9YVxyEh5BGVHpCQMbTKHsUPSKHIfjOL4XCF7bupT9KP 5VfENmGSOqMGNoqLDbVUt3X54jfMQrZHaqIW7WPVV+Anais+Zj8KQFPsQMOgGRLuIzMlKHYFSqYoL6TkD5 XYw8KvP9PlRL69rAonfbUiLWzyPB4JPY6bNDZkUNSJ VJ7DaTRopW7tafW2TgTuOFTVLpAeA26pdTZsSVLbDTAtVLFmTs7WVDMhN2ButkMcuIbjgpMvHICvTNFI VR8ZIFsfaiBdtOWtyUcvML31vEivAZ8HAg0LBnYfFZ9zoc0IoOUvEh6XBVG2Me8DNQVnLMOgMGToQRQ6 SUBwYkUqUSjhESYnLFZyRPL0BZQmNPGwRA6LEaFmKH YuGDI5OylvDYYgEAMxoz1MBBWwEJL5ZsQ8ToFdSXNjOHFnRKaxMKQgGBWjTDO7NSXlJHOkVL4HEaGkPK QnIIH7DOUjZKJqNCXxor2WQXLiWUWlKDCuMEHtNTJpJUYhXOkbPJDkWUM8JEW4JWDtLIPsXP4HPaPkBL JtDQwoSjbsTRSzPWBblm6CPHDdHIFsBRR3QfWqNGNg NCOkUCubFMVuRUYwRvQ0PVNpDVMmXU4CYiMiNLPpAQM9JgMbWEWoLSMgke2OICUrTFTrZLu8GyFhDQEt MQAwPEdlBWTbEOO0SMqsRCAmWNKeHS5TZwZfFIUtKGeyAQlcOLQxLMBwbq6EPXAyRTVsEbZdRZDwNEHz YMPgQThtXMYzZIYdGwHxBAKhDZTiVX9LVnGnVEFyYp HeTptkTVGtGZKykf9XMVBeFJOnSBD9BiVlZCUgCXEdUYlzROQiDXC0EpPpCGCfYLCrSG7SRiIcTNHeJf b3PlhkKRSeCIGqix7UICPiZZBoIEngGoBmXCQtMMWpDKbuVKMkZEO0XVV1OWVwJKJkLS6WCtAgIYRfQc ijMLbpBHCqGFRblo9IXYDfEFLsUFM4SiHzYTLlGSBs FBshXWCuVQIpRvR5VFTrQUZbHP7QDaHzDDXfYeS0BCJpFLYaUPCoqv2HBWIcCREhKWDzVAXcUPFnWOUq VXscNELpDSStDoT4BVAjEHZjKH1HFqLyBAPiPzP2OWXbICXdKMOkfk8YBAObVWVdAru0OBFbLIGpKZEo DTokXLTaVAUeGCXgQUPvGPNbMR0HSiTdDMOzMgUyFQ GwKYAmIBUthw2HRMArFUUoFJVdSAQpMPWcGTCnSSolSLLwFKB3NMR9NWXzFFNgAL3FXaZwLAEmEoY8SH qiGWSqXZDkfq2DIEFxMCI8NXo1UWAuLUEyQMErQMkeNZCfFMH2LcMnWJMeKNIpIM3ZWpGmNBJxSQU5RD TdLVVkZEMmtv0EJCLlBLX9Byx9GRIiHRUgZINyBIgk OAKaQFD9MPt9OFBrGOMqFX3VUvKdBDWyRQG7ZOTrTPKoQFEgib9KMINeLPU8VaX5WEEoMNOrTQIuXRes NHWiEXJxDxqlHCYcIIHbZI6GKuZbRQIsTWV4MmJrZCZyLTQtqj2QLUQpTKY1BhU8FAApHTXiDKAlNCcy RRWuVBAmYWVeAPFcJWLyGH5KQkKzAMLySJZxEKMdUX WlMCSnip7ZVBLbYLI6StV9JxNdDSJvNOZpYYyuDHOgPAE1ZnGwQYPqDRYuNJ2IZvMhDAGsPPF0EbAdSH HhENQknz5UILKsDYO1FORvTcNtYKMmUKWiCGdrZKFdPHI6SMXyVCUjNWZlQD5VFaOhAQCmRMP4NZebEL AeSKRpog4JRQJxDQN1YnY7LPNmWSYcZMJnDYlbFSLx GVH4UHK9CVVhRBGnYO7HXlJvEGkcIARVXmh9HRipJ0q0RWV7Eb7GV6Hag5TeIQWvNCYYEQovTE8mfhQr UORlDw3UE5mNGauwQEMgJhV1OnK3ORSaUockUiAjNwI1E4IdMdPhKXJpCP9aZJDwKUHsCQB4WJG1WMOo Q7GgDOJ2Spy7CDZoIaS1FLN9OvGaUG3BAe7QSmG8JKQ9oRSuAm9TGRkwWlRPKpWfLK6NYUb= ID Date Data Source [id number] [facility] Range Interpretation Code Description Data Fabiola rce(s) Supporting Document(s) Glucose [Mass/volume] in Capillary blood by Glucometer 152 mg/dL 70- 140 [facility] ID Date Data Source [id number] 03/05/2021 09:22:49 PM [facility] Range Interpretation Code Description Data Fabiola rce(s) Supporting Document(s) Glucose [Mass/volume] in Capillary blood by Glucometer 208 mg/dL 70- 140 [facility] ID Date Data Source [id number] 03/05/2021 05:24:04 PM [facility] Value Range Interpretation Code Description Data Fabiola rce(s) Supporting Document(s) Glucose [Mass/volume] in Capillary blood by Glucometer 142 mg/dL 70- 140 [facility] ID Date Data Source [id number] 03/05/2021 01:23:55 PM [facility] Value Range Interpretation Code Description Data Fabiola rce(s) Supporting Document(s) Glucose [Mass/volume] in Capillary blood by Glucometer 177 mg/dL 70- 140 [facility] ID Date Data Source [id number] 03/05/2021 08:46:[facility] Range Interpretation Code Description Data Fabiola rce(s) Supporting Document(s) Glucose [Mass/volume] in Capillary blood by Glucometer 135 mg/dL 70- 140 [facility] ID Date Data Source [id number] 03/04/2021 08:53:42 PM [facility] Value Range Interpretation Code Description Data Fabiola rce(s) Supporting Document(s) Glucose [Mass/volume] in Capillary blood by Glucometer 150 mg/dL 70- 140 [facility] ID Date Data Source [id number] 03/04/2021 05:16:08 PM [facility] Value Range Interpretation Code Description Data Fabiola rce(s) Supporting Document(s) Glucose [Mass/volume] in Capillary blood by Glucometer 171 mg/dL 70- 140 [facility] ID Date Data Source [id number] 03/04/2021 12:55:05 PM [facility] Value Range Interpretation Code Description Data Fabiola rce(s) Supporting Document(s) Glucose [Mass/volume] in Capillary blood by Glucometer 157 mg/dL 70- 140 [facility] ID Date Data Source [id number] 03/04/2021 11:20:27 AM [facility] Value Range Interpretation Code Description Data Fabiola rce(s) Supporting Document(s) History and Physical [facility] ZUPBPe1sNuCSRzZa58/OOCizUGSwr3TrWSvwPDt7SVgkXHQmG5VlTWK5jT2vWNK5OCdFXyAhMoUgDVF2 [facility] [file] RQJU5pfEWJHs7Qtvt2Rlid373v/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/J6hZQZzDPjkSlE3Knn8QXYenMd+Mt44q6ph75AGOlORU55CjK [file] ICAgICAgICAgICAgICAgICAgICAgICAgICAgICAgICAgICAgICAgICAgICAgICAgICAgICAgICAgICAg AOLwOHSsED8YUFTzZZMyQXBdEURoDLUmCYVyQAXvEO AgICAgICAgICAgICAgICAgICAgICAgICAgICAgICAgICAgICAgICAgICAgICAgICAgICAgICAgICAgIC OmOUNxSURmRMHqXVQsTCKsAJ7BAUKbSHTrRRFaGQKrOKAwGDBvCOLvJIQqNENhHTFfALKdZFStSGSmIK AgICAgICAgICAgICAgICAgICAgICAgICAgICAgICAg APDzDGZpCFAmGGHwJSJcMBLqPTJzHDKoCNOcAW8FNMQbCCJdRABqHYOxCIAsJLFtTSEySTJsGBJgVDVo ICAgICAgICAgICAgICAgICAgICAgICAgICAgICAgICAgICAgICAgICAgICAgICAgICAgICAgICAgICAg FBTzNUTxPPDuTR9TCXEySQCiGAUiTARqDIXvGQIbHR AgICAgICAgICAgICAgICAgICAgICAgICAgICAgICAgICAgICAgICAgICAgICAgICAgICAgICAgICAgIC PzVMBeZSQeNAIhHKRoRMKiELTnCL6LZMIwZHAaPCFoOYNsMNJtHXPoFFXzDMFcIVPaZZUkACVdUEUvNP AgICAgICAgICAgICAgICAgICAgICAgICAgICAgICAg DHOfRAIzYRIgWOHcHDUdHOPzSNYoLOLyWONmGORqVQ4LEVUhJJOkIPPwKUQvZMHdHINoVJIlVOJaOFAt ICAgICAgICAgICAgICAgICAgICAgICAgICAgICAgICAgICAgICAgICAgICAgICAgICAgICAgICAgICAg JRPkPCAuZHBbWZTrKA2XOYWgUKPgVJJeHVOiSDVuXR AgICAgICAgICAgICAgICAgICAgICAgICAgICAgICAgICAgICAgICAgICAgICAgICAgICAgICAgICAgIC LxBSFlTVGcNJTsOQHmZGCzIAClMMXcTC9HNZHmXXWzAMNhKDMdOTWaLPHzIFQwXJTzJQPaZIClCZKnTS AgICAgICAgICAgICAgICAgICAgICAgICAgICAgICAg UQDxMJMuYIQhRCDfSPKdZNPbCPAxFXRwUEXeQSBvNKCqOZ1BBSCtPOPiEESfFHZrIMRyIXMlRKHaMWJd ICAgICAgICAgICAgICAgICAgICAgICAgICAgICAgICAgICAgICAgICAgICAgICAgICAgICAgICAgICAg BMGtIULpKBJvZMGfKVGlRY7WMF95zOZyt4B0BVFeLP 0ndyc/Cv8CDJbmokJuiZSgHG8GFtXbEQ7cbj7XGbUxTJ8yeb8PULhVZjJoL2T8tDOmLADtIZPIJeGhT5 6yYJcxHt09MIngOTVyZmXrTMq2Bk5RPgPoU2mpQEOcPsP3LRWsYpB5TQFnIaO8YJWpNhNgDGLsSCPoZG AiXFCIJE1IEwPhY9BgzK22GSBHVi6+DQplbmRvYmoN LiT8QEWfv3PkLSm2UZ3GZPBjZrrlq5LzUxkrPOUIKQyxLP7SLAB4AZC7WXKfCw6VBWNqL112qdNbHN6Z Wr1VZhVwTA2bkw1LPasbQSBeSxmFAan4FGjkSR5IbHHoLFjOCeSjNcneDHEixHTYBBCrREJvcRvvAADw ZPXnKX47IaInSaJaBFH0DFomFU4bWKcpFK5EKAN1VQ ehAFOxIACxM3uQJcErUZEdGhRywLccLM2QDtRpF8MbqnEwbXJkLzPqRRMJPn7+ECidogAmPgzBAqT5EL Qeb5YtZFo9WR8JCBIgNAdzIK8BQNDsdE4rKXouSW1JBuRrXFShNVEFKlCvE77ctUYyNRw8S1RjAfQhFL VkRmlsZXMgPDwvTmFtZXMgWyBdDQogID4+ID4+DQog NO6KVBivhmEcRUZgUc1CIUTbEDQdDB2dSFYqMAApK9C7vQpkCGODKiZtK0nqruwkMF0vILCmX300kOvg cfXqANR3TCPqYd4IEKKkIQQ6HAQvoWRyJxWyJFOWNEegQB9TsXRaEHH8sV1xXOwuPFQhJWSsC0eZYnBi kMnnYS15hQtcuwPtjHTwEEq+Dd7GJB8yq6CbABk9vu ZzOEngXAQ5ESyaYCQzDLMbORMxQLG7IAT8YVZGYqDvVBScHTVaWVgoZSZfPCJqru1KHCSmQJBrIvK2Qy BlDNPoIPEjUFycRMUeGVNoJFEmFSRuFBYoLV8OEyMmNERlZPZjGPmuEKVgDPAwfw9XFGLkBVLtChL7AX WcGJRvSTCiYHogCTXuZYZyPwIaLXLuPNZjIZ9ZEeRs VPBxMIMaEFXyZWXgSQSmyz4HZFGwYJEyDzH8YZUxOQGjBWKuYWvwNHJpANG5BBRvXBWaGAQyIO5FPuMv FAGyCUkkQnawKWSuXBPlxl7YALFkVVLoKIn8VKBkIIIdBXBzQVozYLWwFDOtSKPfKWMlEPEiSQ2LOyXd NKFzRCP5PaOdFPDeYNHaeh8QTTKuFFXvIvZ3WZWfPG ZsMMBpAExtNNAcTDY5CAO5QJTxWFSjKA9WPoIqOOAuOLHuWrGeXAMrPECehc1HGLBqOUBbUGVlMRYuKX KjQCDpESgnBFDhVYD5ApK7XYGvBNGpMU5HLiUkMOTfKWX5BqNbWDEwICGmgr7XNFOsPDHbUGw3XTSeTV XcAFLuHSvwDXYdGSO7IyC8AUQdSUSjNT1SKsIdYVZk API5SCAmCRFxEUGtyv4MASEtJRBoLhN2WHBfFRHbZJXfRGynTLGoXLV5KOoaTUReBHFrUX2HOrOmBIWu Eeo7BQFbICHiQZGnph0SZCMgUWLqQRAkOBXaBNItSPPjWJbnFPMlTJW7LdE9NPSbHILgBZ1AAxLsNYYg VasgUYRsEKFwIXKtmt6QTKYcTDBgBVZtQHBgCGHgAM TiXJhoGPRvMWXyPYC4UFVsJYHuIP5SDbXnVFMkKwS4JQEmXULzZKTrtm6MPBWyJHKxPNF6VNLgFSTmQO MmVCagSKEcVMEiVXZpTENdIMNcLD2IIfExLDMwEeXzDqKqUVTxRCQzjo3BNQOaSLTmZnK2BlJuMPJkUH VlFDwoQCBwJNGrBDJ0ZGIgQNUfSN4FYvOdAUVbWnOg QWiwWEMrHFXfkh4BLWDfPJRgOLD7DAFnCZZsZESlDDn2emTewPSsVPr3UB3FM7XxkhBfLswQDu2Kh234 SLU3PKAgPm3DC8tyYj6rKJGpZHVCFn1HLYt8IpDzJHFwFrOkYyZcXBF7DJS5IvI9BNvgPjScVCVyYFV+ OHa8SCD1ARGpOLBsJeXvWCOjDnfdCYMmW7R6EyW9Gm F6EJ9zLOQXUw7+EUpdoISalJayYWMBFwH3Vos3ENofTTBNXd6L ID Date Data Source [id number] 03/04/2021 11:20:17 AM EDT [facility] Name Value Range Interpretation Code Description Data Fabiola rce(s) Supporting Document(s) History and Physical [facility] PKSQLy4fLiYJXfIm45/WTZizCRCfo8AfRFknRGc5PFerPORkA9EcLIW4vE0yBMI5YSfFZyYmNuAxIRI5 [facility]bm [file] AgICAgICAgICAgICAgICAgICAgICAgICAgICAgICAgICAgICAgICAgICAgICAgICAgICAgICAgICAgIC EuGTLbPRKkBSIwFIKkJZNgOR0ZZLJoXFFyDCWmJAKo ICAgICAgICAgICAgICAgICAgICAgICAgICAgICAgICAgICAgICAgICAgICAgICAgICAgICAgICAgICAg XDUpFZYvOONzLUVhGJPbGPDhWWRmMCTbROJwKT2PKRHlXDLcXJEmXNYfFTDqUMKpWRHbTEBhPCOqPVFh ICAgICAgICAgICAgICAgICAgICAgICAgICAgICAgIC XzQRTsMDYuGDDwBZViIUQfIHZgCHShRBWwGEUsTYHdIDXsDFUoXU5KVHFwCAHkIWTgUVSxZYUnOMZnZI AgICAgICAgICAgICAgICAgICAgICAgICAgICAgICAgICAgICAgICAgICAgICAgICAgICAgICAgICAgIC RrXEVtFVLsPDFbTXRoIFKvBSLwEF5FYOSfLIEkSFVh ICAgICAgICAgICAgICAgICAgICAgICAgICAgICAgICAgICAgICAgICAgICAgICAgICAgICAgICAgICAg PNZvEFBcWGLqVHObLBCzNGWiMTVoAHBaDIIzOBGbCB9AQNWaBAItWQHpFCUuAPQbDMSsBYAuHHIoAPZm ICAgICAgICAgICAgICAgICAgICAgICAgICAgICAgIC CkHYYvYLOtPXYdKPUvJUDdJEUoHOCoKDZkMGLaNHGcJSSgCIMnXKEyXU2QOZUaECAhEAOrNAAxBVKbKU AgICAgICAgICAgICAgICAgICAgICAgICAgICAgICAgICAgICAgICAgICAgICAgICAgICAgICAgICAgIC PtLDTsJCMdVVKcURIvLYAcYRZuTAQzNX1QGRGoJUSj ICAgICAgICAgICAgICAgICAgICAgICAgICAgICAgICAgICAgICAgICAgICAgICAgICAgICAgICAgICAg UWZfVLPnTZLlCWIuLCXfJSGeYTNcYQVaGWAzYHIqKVOaZT4UWAEwPBBlZPYsGUDcPNHnAGUjZNUtQNQf ICAgICAgICAgICAgICAgICAgICAgICAgICAgICAgIC AqPSCsQLTjSGTtAYUwFCYsECUzMXChGPUjNKZvBOFhHWVjRZFzSEGbVCXjWK4TABQxFWJiVDXwPGOkUC AgICAgICAgICAgICAgICAgICAgICAgICAgICAgICAgICAgICAgICAgICAgICAgICAgICAgICAgICAgIC DyRWMkZDIeKFBpAHMpZVNjPPDnXHFbAIHbYP4EQL15 wTVhv5J7VYTjUG1szxv/Ko7CALvsfaYhdKCdYD1ANoYeJE2cyt7PMhYoBP8coc8ZYKlNXeGaF6O9iAAz TYDsWCPWSmHiN80nSXojIa30DEfgOMGfAcPeXYf2Jb2INsFpC9oiSMGjKlN7LWXeRzU5OZMsTtQ1FFSh UeEfRTXrHAJpVRDyVRJKQZL3FGAqQsLwGnQrZAVcNE ohIOARMYNeZQOiUuQiHVdjNK2Ak8CwbLS0XCg+Zv4YTI9oo7YiXVy2WkPpRD2gfu1VVHqLVdZmH8Kedo C6LSF3EULsFm9PPAOwAKRzuUB6SPXoMGQUGfDzQ8PsuU84YHRRLl8+LEqcamIbAccVBeK3FRDot3GiAL m2EW8IVVOeEUy6eWGfIPCYCGX4HVYtvjxiASQVp7F1 YWDEMBHwaJS7KlAvOaGcFBFcCEpcYWGLYCrIPbLyE5Jwt7UxDsV8GNFqGoBtNDchPGPgOrT8ET30qKvw CE0SMKYfFIBvJY65PFP1RIXlGw6XOh2FToAzOK4gqd4EMLyxLSPuEcrQTbf3VKgaXZ5SoESbB1QarLUx x4rXSeUyC2JIYHC5QKUfFg4URQNnLqVaIVUsJAwaTU 9gWOQnLEGQoMkhhqZ6GM6OLS0srcKoTO3MLnAwEg6xXb8UFlPsB2UrB3YxWAQoAVWBXUutBP5DZDwbQN 5vVF4Gc4AGqHFrnU9dae3NOSJxCNExMdzruz9RElbxG3H6zEeaEUKkHJuxSNGMCYvcHN3ZQZHqYZW4RL D4QhSkELJMEpZoR79lAQ4GI3Sgs39fVvO7BQWsJiOx FMjzVG59zBtcioRfmVUrfDtiCP9FLb1+DQplbmRvYmoNCnhyZWYNCjAgNTANCjAwMDAwMDAwMDAgNjU1 EyYuEc6DVIIxPEAzVKGaUdJgHZGsTCByQSuvKDKuNGIbOKc7WHJtIYRrAW9SLtOvOYTfXPAvGccyKNRh OBSumv4HNSZaMEImDQU9WoFfNYNpYYAnLQrqLTPaOJ AvFLc1MMYoQORfFX0RAvJhIHJoLPUbYEyoQDHqZXFafs6JACYnSGOxCgG1KBFfHZLlZDDqJVbrMZOiMJ F8IFY3CRGiXDQvDZ9WWaMgPECsQRbqQHQgEVXaLSSvod1GPLBrJTRgUMSeHEAxSSZcTYTcEPwkMPVbJR YbTTf1NTObKFHmYH2EKdMrYGGvMZH6VNAwNFIjTQMx od4OXEKyVKYoLdB6NMPdWBHuQRTtSDawPVQnJVT0HlDvRCDzDEFzDY5XFrKxBWJzQqKyKQUqZEJfNEQh ey3URJPbCUQdSNE5QNLlKREaHBJfXQfrDCNaNQN0QPu0CUUhVSAkYD9VQeHfJHLeIkSzFYJxFHDjFTKk vm8DLJIqEIYzDqXnAwBjJRHrOVJjLQvtWDElHTF8PV B2AFGnCLVuUB8ULbJbDUOwZjloTaNcHCHmAJSzzi9UMPNhEOEmARC7AHXxLDBiZXAtBNevSMGfOXH2CL NqRFDdRHPdJN6DWoSyJBUaTgk0DdsrEIYxFPVqzx1CLBPaCTRcATqaUXPkBUXaODSpFSwoQZPbHAAbEe raUXSeQABsJQ2KHqIgPJEpNrY8GaEgTBZbXZYpax0F GGDiQTCcITN8IBLbRSCcNJCfWAvcBWVsRWSlYOZpZLFuAAGyHV7MQeUtQMMlDdAcMXsfTOCuTEEyti2I GNWzZOXxTrNgYQCuVCQcBALrBTnwTKNtYREfNEFvJWEuORZxRF2PJiBxCCIeTgD9TiWeFNNvPZLxeb2U BITcNBZuEvz3XUYyKBByDUJkLJpmHSKxKJY3PlNpAH CsKZDmMV0HHsEiJTZfIdrmUqJkUQSzJBKbzp6QNKTtQTGqUYN4MCPwDCVkNINqKByfJOUnZKA9NXexCB AdPTQzKD0PZgNyCJQuXic3QXTbAMRsWWEngv8KMAKxYAZbBCc4EaBjSOSiBQEaOGdwFLExVVLiRYo7EU HpHQRpUQ0DXbZaCDAhFHNxAPAuHJXuQFQrjx2BXRNi CSK2PRE0IiJdVAKlFEKnUCnbLTMgKUErTruwUVMjGRTyVX3MRnEnZVOeORB7DeKdEYYaMBZhcd6JTCWx RBJ7IxAwNMHhESCtFPKhJJmkCRRsUTCuVBNxBFVnDVCyOW0HGgVjOOJdOMV2FAFbMZBsKJXker3HDDPe MXH2WdztYVGaCYBvRQBxIWj3ypPigCOhLJm2XT7EA9 ZptgLcWVHWWk7Mz237CZO7BVHaCo1HR3chNq7vIXSyGNNCJg5PILr1XDRgYFIkJ2X5KUInFUC9EXQhAX cpV2PwEEBlAbB6NHp+DDj0WDNeXtMqIqYoPwXyTOBzDODfZiW5SxH6QxTxPfZrGQ5zYHXJYm7+DQpzdG [id number] ID Date Data Source [id number] 03/04/2021 08:49:23 AM EDT [facility] Name Value Range Interpretation Code Description Data Fabiola rce(s) Supporting Document(s) Glucose [Mass/volume] in Capillary blood by Glucometer 102 mg/dL 70- 140 [facility] ID Date Data Source [id number] 03/03/2021 09:02:07 PM EDT [facility] Value Range Interpretation Code Description Data Fabiola rce(s) Supporting Document(s) Glucose [Mass/volume] in Capillary blood by Glucometer 104 mg/dL 70- 140 [facility] ID Date Data Source [id number] 03/03/2021 05:39:10 PM EDT [facility] Name Value Range Interpretation Code Description Data Fabiola rce(s) Supporting Document(s) Glucose [Mass/volume] in Capillary blood by Glucometer 101 mg/dL 70- 140 [facility] ID Date Data Source [id number] 03/03/2021 12:44:03 PM EDT [facility] Name Value Range Interpretation Code Description Data Fabiola rce(s) Supporting Document(s) Glucose [Mass/volume] in Capillary blood by Glucometer 261 mg/dL 70- 140 [facility] ID Date Data Source [id number] 03/03/2021 08:51:59 AM EDT [facility] Value Range Interpretation Code Description Data Fabiola rce(s) Supporting Document(s) Glucose [Mass/volume] in Capillary blood by Glucometer 211 mg/dL 70- 140 [facility] ID Date Data Source [id number] 03/02/2021 08:12:49 PM EDT [facility] Value Range Interpretation Code Description Data Fabiola rce(s) Supporting Document(s) Glucose [Mass/volume] in Capillary blood by Glucometer 145 mg/dL 70- 140 [facility] ID Date Data Source [id number] 03/02/2021 01:06:00 PM EDT [facility] Name Value Range Interpretation Code Description Data Fabiola rce(s) Supporting Document(s) SARS coronavirus 2 RNA [Presence] in Res piratory specimen by WILEY with probe detection NEGATIVE [facility] This lab was ordered by [facility] a nd reported by [facility]. ID Date Data Source [id number] 02/28/2021 08:51:00 [place] [address] RESPIRATORY CARE REPORT ==== ---------NAME------- NUMBER SEX AGE ADMIT DISC. XRAY# F/C [facility] [id number] 02/27/21 02/28/21 [id number] P E/R DATE OF : 1970 M/R# [id number] #: [id number] TR-08 LOCATION: EMERGENCY DEPT EKG [id number] COMP LETE:02/28/21 00:22 [place] [id number] PHYSICIAN: JOSE ARENAS Name Value Range Interpretation Code Description Data Fabiola rce(s) Supporting Document(s) ID Date Data Source [id number] 02/27/2021 10:13:00 PM EDT [facility] 1 OrderSheet [facility] Emergency Department [address] [place] [address] Phone #: [phone] 02/27/2021 22:09 Patient: JOSE L LAM Sex: M : 1970 Age: 50yWEIGHT:77.1 kg (S) HEIGHT:66 inches (S) BMI:27.4ALLERGIES: No Known Drug AllergyCHIEF COMPLAINT: glucoseDIAGNOSIS: Diabetes mellitusLAB ORDERSOrder Description Priority Entered Acknowledged InitialedDIAGNOSTIC STUDY ORDERSOrder Description Priority Entered Acknowledged InitialedMEDICATION/IV/DRIP/FLUID ORDERSOrder Description Priority Entered Acknowledged Initialed- (Metformin 500 22:40 02/27/2021 Ack'd: 23:00 Leena Ann R.N.mg PO once) Trae Garcia Cancelled: Other 23:17 Leena Ann M.D.; R.N.GENERAL ORDERSOrder Description Priority Entered Acknowledged InitialedEKG 22:49 02/27/2021 22:57 Jose Ann Riccardo Laura R.N. M.D.;[Electronic ally signed by Katy Ortez R.N. (00:22 02/28/2021)][Electronically signed by Trae Garcia M.D. (00:32 02/28/2021)][Electronically locked by Katy Ortez R.N. (00:22 02/28/2021)] Name Value Range Interpretation Code Description Data [facility](s) Supporting Document(s) ID Date Data Source [id number] 02/27/2021 10:13:00 PM EDT [facility] 1 Medication Reconciliation Report [facility] Emergency Department [address] [place] [address] Phone #: ext- [phone] 02/27/2021 22:09 Patient: JOSE L LAM Sex: M : 1970 Age: 50yWeight: 77.1 kgHeight/Length: 66 in.BMI: 27.4ALLERGIES: No Known Drug AllergyThe patient's Home Medications are listed below:CONTINUE TAKING THE FOLLOWING MEDICATIONS: Gabapentin Oral metFORMIN HCl ER OralThe source(s) of the original Home Medication information:Not obtained.The following Medications were given to the patient in the Emergency Department:None.The following Medications were prescribed to the patient:metformin 500 mg tablet Take 1 tablet twice a day for 30 days -- Dispense 60 tablet. Refills: 2.Substitution permitted.Pharmacy - [facility] - [address] [place] [address] ; [place], [place] [id number]. . -- Trae Garcia M.D. Name Value Range Interpretation Code Description Data Fabiola rce(s) Supporting Document(s) ID Date Data Source [id number] 02/27/2021 10:13:00 PM EDT [facility] 1 Medication Administration Record [facility] Emergency Department [address] [place] [address] Phone #: ext- [phone] 02/27/2021 22:09 Patient: JOSE L LAM Sex: M : 1970 Age: 50yWeight: 77.1 kgHeight/Length: 66 inBMI: 27.4ALLERGIES: No Known Drug AllergyDate/Time Medication Administered Medication Ordered Name Value Range Interpretation Code Description Data Fabiola rce(s) Supporting Document(s) ID Date Data Source [id number] 02/27/2021 10:13:00 PM EDT [facility] 1 General Instructions [facility] Emergency Department [address] [place] [address] Phone #: [phone] pzf- [phone] 02/27/2021 22:09 Patient: JOSE L LAM Sex: M : 1970 Age: 50yChronic, poorly controlled type 2 diabetes with hyperglycemia.INSTRUCTIONS Do not smoke. No alcohol. (PLEASE TAKE YOUR INSULIN PRESCRIBED; PLEASE FOLLOW UP WITH YOUR FAMILY MD IN NEXT WEEK FOR DB MEDICATION ADJUSTMENT AND ENDOCRINOLOGY REFERRAL).Warnings: Further evaluation is necessary in order to conduct further tests. It is very important to follow upwith a healthcare provider.GENERAL WARNINGS: Return or contact your physician immediately if your condition worsens orchanges unexpectedly, if not improving as expected, or if other problems arise. Specifically return if pain,vomiting, bleeding, breathing difficulty or fever greater than 102 degrees F and not controlled byacetaminophen or ibuprofen.Your Current Medications: Your current home medications have been reviewed.CONTINUE TAKING THE FOLLOWING MEDICATIONS:Gabapentin Oral.metFORMIN HCl ER Oral.Prescription Medications:metformin 500 mg tablet Take 1 tablet twice a day for 30 days -- Dispense 60 tablet. Refills: 2.Substitution permitted.Pharmacy - [id number] - [address] [facility] ; [place], [place] [phone]. .Follow-up:Return to the emergency department as needed. Follow up with your healthcare provider in three dayseven if well. Call for an appointment. Reason for referral: evaluation and treatment. Summary of careprovided to patient via paper.Understanding of the discharge instructions verbalized by patient. Expected course of illness, dischargeinstructions, activity level, diet, prescriptions x1, follow-up appointment and risks and benefits of treatmentreviewed with patient and understanding verbalized. Agrees to plan of care. ADDITIONAL INFORMATION 2 General Instructions [facility] Emergency Department [address] [place] [address] Phone #: [phone]- [phone] 02/27/2021 22:09 Patient: JOSE L LAM Sex: M : 1970 Age: 50yDiabetes with High Blood SugarYou have been treated for high blood sugar (hyperglycemia). This may be because of an infection orother illness. Or it may be from eating too many sweets or starches. Or it may be from not takingenough insulin or other diabetes medicine.Home careCheck your blood sugar level at least 2 times a day. Write it down the results. Do this beforebreakfast and before dinner. If you take insulin, also write down your routine insulin dose. Note anyother doses you needed based on your sliding scale or as advised by your healthcare provider. [place] for the next 3 to 5 days.High blood sugar may cause symptoms that you can learn to spot. These include: Peeing often Thirst Headache Breath that smells fruity Nausea or vomiting Belly painIf you have symptoms of high blood sugar, use a blood or urine test to find out what your blood sugarlevel is. If it is above your usual range, use the sliding scale regular insulin dose from your healthcareprovider. Call your provider for advice if you were not given a range for your insulin dose. If yourblood sugar is over 240 mg/dL, check your urine for ketones.Follow- up careFollow up with your healthcare provider, or as advised. You may need to meet with your provider inthe next week. You will likely look at your blood sugar records together. You may need to changeyour dose of insulin or other diabetes medicine.When to seek medical adviceCall your healthcare provider right away if these occur: Symptoms of high blood sugar that don't get better with the treatment your provider advised. This is especially true if you also have ketones in your urine. Blood sugar over 300 mg/dl. If you can't reach your healthcare provider, go to a hospital emergency room or urgent care center. 3 General Instructions [facility] Emergency Department [address] [place] [address] Phone #: ext- [phone] 02/27/2021 22:09 Patient: JOSE L LAM Sex: M : 1970 Age: 50yCall 911Call 911 if you have any of the following: Confusion Dizziness, lightheadedness, or loss of consciousness Shortness of breath Chest pain Weakness of an arm, leg, or one side of the face Sudden trouble with speech or vision 0163-[address] [employer]. [address] [place] [address]. All rights reserved. This information is not intended as asubstitute for professional medical care. Always follow your healthcare professional's instructions.Diabetes: OverviewDiabetes is a long-term health problem. It means your body doesn't make enough insulin. Or it maymean that your body can't use the insulin it makes. Insulin is a hormone in your body. It lets bloodsugar (glucose) reach the cells in your body. All of your cells need glucose for fuel.When you have diabetes, the glucose in your blood builds up because it can't get into the cells. Thisbuildup is called high blood sugar (hyperglycemia).Your blood sugar level depends on several things. It depends on what kind of food you eat and howmuch of it you eat. It also depends on how much exercise you get, and how much insulin you have inyour body. Eating too much of the wrong kinds of food or not taking diabetes medicine on time cancause high blood sugar. Infections can cause high blood sugar even if you are taking medicinescorrectly.These things can also cause low blood sugar: Missing meals Not eating enough food Unplanned or heavy exercise Taking too much diabetes medicineDiabetes can cause serious problems over time if you don't get treated. These problems include: Heart disease Stroke 4 General Instructions [facility] Emergency Department [address] [place] [address] Phone #: ext- [phone] 02/27/2021 22:09 Patient: JOSE L LAM Sex: M : 1970 Age: 50y Kidney failure Blindness Nerve pain Loss of feeling in the legs and feet Tissue (gangrene)By keeping your blood sugar under control you can prevent or delay these problems.Normal blood sugar levels are 80mg/dL to 100 mg/dL before a meal. They are less than 180 mg/dL inthe 1 to 2 hours after a meal.Home careFollow these guidelines when caring for yourself at home: Follow the diet your healthcare provider gives you. Take insulin or other diabetes medicine exactly as told to. Watch your blood sugar as you are told to. Keep a log of your results. This will help your provider change your medicines to keep your blood sugar under control. Try to reach your ideal weight. You may be able to cut back on or not have to take diabetes medicine if you eat the right foods and get exercise. Don't smoke. Smoking worsens the effects of diabetes on your circulation. You are much more likely to have a heart attack if you have diabetes and you smoke. Also don't use e-cigarettes or vaping products. Take good care of your feet. If you have lost feeling in your feet, you may not notice an injury or infection. Check your feet and between your toes at least once a day. Use a mirror to check the bottoms of your feet. Wear a medical alert bracelet or necklace. Or carry a card in your wallet that says you have diabetes. This will help healthcare providers give you the right care if you get very ill and can't tell them that you have diabetes.Sick-day planIf you get a cold, the flu, or a bacterial or viral infection, take these steps: Look at your diabetes sick plan and call your healthcare provider as you were told to. You may need to call your provider right away if: o Your blood sugar is above 240 mg/dL while taking your diabetes medicine 5 General Instructions [facility] Emergency Department [address] [place] [address] Phone #: ext- [phone] 02/27/2021 22:09 Patient: JOSE L LAM Sex: M : 1970 Age: 50y o Your urine ketone levels are above normal or high o You have been vomiting more than 6 hours o You have trouble breathing or your breath has a fruity smell o You have a high fever o You have a fever for several days and you are not getting better o You get light-headed and are sleepier than usual Keep taking your diabetes pills (oral medicine) even if you have been vomiting and are feeling sick. Call your provider right away. This is because you may need insulin to lower your blood sugar until you recover from your illness. Keep taking your insulin even if you have been vomiting and are feeling sick. Call your provider right away to ask if you need to change your insulin dose. This will depend on your blood sugar results. Check your blood sugar every 2 to 4 hours, or at least 4 times a day. Check your ketones often. Watch them more often if you are vomiting and having diarrhea. Don't skip meals. Try to eat small meals on a regular schedule. Do this even if you don't feel like eating. Drink water or other liquids that don't have caffeine or calories. This will keep you from getting dehydrated. If you are nauseated or vomiting , takes small sips every 5 minutes. To prevent dehydration try to drink a cup (8 ounces) of fluids every hour while you are awake.General careAlways bring a source of fast-acting sugar with you in case you have symptoms of low blood sugar(below 70 mg/dL). At the first sign of low blood sugar, eat or drink 15 to 20 grams of fast-acting sugarto raise your blood sugar. Examples are: 3 to 4 glucose tablets. You can buy these at most [employer] 4 ounces (1/2 cup) of regular (not diet) soft drinks 4 ounces (1/2 cup) of any fruit juice 5 to 6 pieces of hard candy 1 tablespoon of honeyCheck your blood sugar 15 minutes after treating yourself. If it's still below 70 mg/dL, take 15 to 20more grams of fast-acting sugar. Test again in 15 minutes. If it returns to normal (70 mg/dL or above), 6 General Instructions [facility] Emergency Department [address] [place] [address] Phone #: ext- [phone] 02/27/2021 22:09 Patient: JOSE L LAM Sex: M : 1970 Age: 50yeat a snack or meal to keep your blood sugar in a safe range. If it stays low, call your doctor or go [facility].If you have had severe low blood sugar episodes, see that someone in your family is trained to giveyou a shot of glucagon. This will raise your blood sugar if you are unconscious and can't eat any ofthe above tablets or foods.Follow-up careFollow-up with your healthcare provider, or as advised. For more information about diabetes, visit theAmerican Diabetes Association website at www.diabetes.org. Or you can call 596-321-7946.When to seek medical adviceCall your healthcare provider right away if you have any of these symptoms of high blood sugar thatdon't go away with the above treatment suggestions: Urinating often Drowsiness Thirst Headache Nausea or vomiting Belly (abdominal) pain Eyesight changes Fast breathingAlso call your provider right away if you have any of these signs of low blood sugar and they don't goaway with the above treatment suggestions: Fatigue Headache Shakes Excess sweating Hunger Feeling anxious or restless Eyesight changes 7 General Instructions [facility] Emergency Department [address] [place] [address] Phone #: ext- [phone] 02/27/2021 22:09 Patient: JOSE L LAM Sex: M : 1970 Age: 50y Drowsiness WeaknessCall 911Call 911 if any of these occur: Chest pain or shortness of breath Dizziness or fainting Weakness of an arm or leg or one side of the face Trouble speaking or seeing Confusion or loss of consciousness [id number] [employer] [place], [place] [address]. All rights reserved. This information is not intended as asubstitute for professional medical care. Always follow your healthcare professional's instructions.Diet: DiabetesFood is an important tool that you can use to control diabetes and stay healthy. Eating well-balancedmeals in the correct amounts will help you control your blood glucose levels and prevent low bloodsugar reactions. It will also help you reduce the health risks of diabetes. There is no one specific dietthat is right for everyone with diabetes. But there are general guidelines to follow. A registereddietitian (RD) will create a tailored diet approach that's just right for you. He or she will also help youplan healthy meals and snacks. If you have any questions, call your dietitian for advice.Guidelines for successTalk with your healthcare provider before starting a diabetes diet or weight loss program. If youhaven't talked with a d ietitian yet, ask your provider for a referral. The following guidelines can helpyou succeed: Select foods from the 6 food groups below. Your dietitian will help you find food choices within each group. He or she will also show you serving sizes and how many servings you can have at each meal. o Grains, beans, and starchy vegetables o Vegetables o Fruit o Milk or yogurt 8 General Instructions [facility] Emergency Department [address] [place] [address] Phone #: ext- [phone] 02/27/2021 22:09 Patient: JOSE L LAM Sex: M : 1970 Age: 50y o Meat, poultry, fish, or tofu o Healthy fats Check your blood sugar levels as directed by your provider. Take any medicine as prescribed by your provider. Learn to read food labels and pick the right portion sizes. Limit carbohydrates at each meal to help manage your diabetes. The carbohydrates you eat become glucose in the blood. Talk with your healthcare provider about how many grams of carbohydrates are recommended for you at each meal. Eat 3 meals a day, at consistent times. Don't skip meals. If you are hungry between meals, eat a small, low-carbohydrate snack. Talk with your healthcare provider if you drink alcohol. Alcohol can have unpredictable effects on blood glucose. It's also high in empty calories and can raise a type of blood fat called triglycerides. Drink water or calorie-free diet drinks instead. Eat less fat to help lower your risk of heart disease. Use nonfat or low-fat dairy products and lean meats. Avoid fried foods. Use cooking oils that are unsaturated, such as olive, canola, or peanut oil. Don't eat foods with added salt. Salt can contribute to high blood pressure, which can cause heart disease. People with diabetes already have a risk for high blood pressure and heart disease. Stay at a healthy weight. If you need to lose weight, cut down on your portion sizes. But don't skip meals. Exercise is an important part of any weight management program. Talk with your provider about an exercise program that's right for you. For more information about the best diet plan for you, talk with an RD. To find an RD in your area, contact: o Academy of Nutrition and Dietetics www.eatright.org o [place] [employer] [phone] www.diabetes.org [phone] [employer]. [address] [place] [address]. All rights reserved. This information is not intended as asubstitute for professional medical care. Always follow your healthcare professional's instructions. You have been given the following additional information: Diabetes with High Blood Sugar Diabetes- Overview Diet: Diabetes 9 General Instructions [facility] Emergency Department [address] [place] [address] Phone #: ext- [phone] 02/27/2021 22:09 Patient: JOSE L LAM Sex: M : 1970 Age: 50y(Electronically signed by Trae Garcia M.D. 02/28/2021 00:32) Name Value Range Interpretation Code Description Data Fabiola rce(s) Supporting Document(s) ID Date Data Source [id number] 02/27/2021 10:13:00 PM EDT [facility] 1 Clinical Report - Nurses [facility] Emergency Department [address] [place] [address] Phone #: ext- [phone] 02/27/2021 22:09 Patient: JOSE L LAM Sex: M : 1970 Age: 50yTRIAGEArrived by EMS. Historian: patient. ( per EMS called for high BG - BG 252 per ems , also c/o left toepain BG now 259).Acuity: LEVEL 3.Chief Complaint: (high BG).Treatment [facility]:None. --22:16 02/27/21 Katy Ortez R.N.22:11 02/27/21. BP: 164/111. MAP: 128. HR: 132. RR: 15. O2 saturation: 100%. Temp: 98.7 F. Pain levelnow: 02/05. --22:16 02/27/21 Katy Ortez R.N.Weight: 77.1 kg stated. Height/Length: 66 inches Per Patient. BMI: 27.4. --22:11 02/27/21 Katy Ortez R.N.MedicationsGabapentin Oral. --22:16 02/27/21 Katy Ortez R.N. metFORMIN HCl ER Oral. --22:16 02/27/21 Katy Ortez R.N.AllergiesNo Known Drug Allergy. --22:12 02/27/21 Katy Ortez R.N.PROBLEMS:Depression.Psychosis.Substance Abuse. --22:16 02/27/21 Katy Ortez R.N.ADDITIONAL SURGERIES:no known surgeries.HistorySOCIAL HX: Current every day smoker. No alcohol use or drug use. The patient was offered HIV testingbut declined and hepatitis C testing but declined. The patient has not traveled outside the [place]Infectious disease exposure: No infectious disease exposure. The patient was not exposed to Coronavirus.SELF HARM ASSESSMENT: Self harm assessment was performed. The patient answered "no" to thequestion(s) "Have you recently felt down, depressed, or hopeless?" and "Do you have thoughts of harmingor killing yourself?". 2 Clinical Report - Nurses [facility] Emergency Department [address] [place] [address] Phone #: ext- [phone] 02/27/2021 22:09 Patient: JOSE L LAM [facility]#: [id number] Sex: M : 1970 Age: 50y ABUSE ASSESSMENT: No report of abuse. NUTRITIONAL RISK ASSESSMENT: The nutritional risk assessment revealed no deficiencies. FUNCTIONAL ASSESSMENT: Functional assessment: no impairments noted. LEARNING NEEDS ASSESSMENT: The learning needs assessment revealed no barriers. FALL RISK ASSESSMENT: Fall risk assessment completed. No risk factors identified. SKIN INTEGRITY ASSESSMENT: Sk in integrity risk assessment completed. No skin integrity risk identified. --22:16 02/27/21 Katy Ortez R.N.PHYSICAL ASSESSMENTGENERAL / NEURO / PSYCH: Alert. Oriented X 4. Appears in no acute distress.HEENT: Pupils equal, round and reactive to light. No facial asymmetry noted. Mucous membranes arepink.RESPIRATORY: Respirations not labored. Chest nontender. Breath sounds within normal limits.CVS: Cardiac rhythm: sinus tachycardia. Pulses within normal limits.GI / : Abdomen soft and nontender and normal bowel sounds.SKIN: Skin intact. Skin is warm and dry. Normal skin turgor. --22:02/27/21 Katy Ortez R.N.NURSING PROGRESS NOTESThe plan of care for this patient has been created. Monitoring of patient in place. Finger stick glucose:259 mg/dL. Patient gowned. Head of bed elevated. Reassurance given. Two patient identifierschecked. Call light placed in reach. Side rails up x 1. Bed placed in lowest position. Brakes of bed on.Patient ready for evaluation- ED physician notified. --22:02/27/21 Katy Ortez R.N. EKG time: (late entry - 22:08 02/27/2021). EKG was performed by a nurse and shown to the ED physician. --22:02/27/21 Leena Ann R.N. ( Patient unable to receive metformin in ER d/t not being able to authorized to remove metformin out of the omnicell. Pharmacy called 3 times and left a message with no response. MD Garcia aware stating to cancel metformin tonight and make sure pt gets prescription tomorrow. Pt verbalizes understanding.). --23:20 02/27/21 Leena Ann R.N.DISPOSITION / DISCHARGE Condition at departure: stable. No learning barriers present. Discharge instructions provided and reviewed with the patient. Reviewed medication(s) side effects, precautions, dosing and course information. Prescription(s) given to the patient and sent electronically to pharmacy. Medication(s) for home use given to the patient per protocol. Treatments reviewed. Reviewed referrals. Patient verbalized understanding. Written instructions provided in Trinidadian. The patient was discharged by the physician. He was discharged home and accompanied by cab. He left ambulatory and via private vehicle. Driving 3 Clinical Report - Nurses [facility] Emergency Department [address] [place] [address] Phone #: ext- [phone] 02/27/2021 22:09 Patient: JOSE L LAM Sex: M : 1970 [facility]: 50[facility] --23:20 02/27/21 Leena Ann R.N. 23:20 02/27/21. BP: deferred. HR: deferred. RR: deferred. O2 saturation: deferred. Temp: deferred. Pain level now deferred. --23:20 02/27/21 Leena Ann R.N.Locked/Released at 02/28/2021 00:22 by Katy Ortez R.N. Name Value Range Interpretation Code Description Data Fabiola rce(s) Supporting Document(s) ID Date Data Source [id number] 02/27/2021 10:13:00 PM EDT [facility] 1 Clinical Report - Physicians/Mid Levels [facility] Emergency Department [address] [place] [address] Phone #: ext- [phone] 02/27/2021 22:09 [id number] Sex[facility] : 1970 Age: 50y Time Seen: 22:29 02/27/2021; initial patient contact. Arrived- By ambulance. Historian- patient. Disposition decision: 22:49 02/27/2021.HISTORY OF PRESENT ILLNESS Chief Complaint: ABNORMAL GLUCOSE. This started today and is now gone. At its maximum, severity described as moderate. When seen in the E.D., it was gone. Modifying factors- worsened by food. Relieved by rest. No current or associated symptoms. (pt is known IDDM, from [place], living in local motel here in [place] until his home in [place] gets cleaned up, complains of his glucose been on/off high in last 2-3 days whenever he eats; pt was in [place] and called 911 to bring him here, BS on scene was 252? pt feels fine in ER, states ran out of his Metformin). Similar symptoms previously. Patient has had similar symptoms many times. Recent medical care: The patient was seen recently at this facility.REVIEW OF SYSTEMSNo fever, sore throat, sinus drainage, nasal congestion or cough. No difficulty breathing, chest pain,abdominal pain, nausea or vomiting. No diarrhea, black stools, bloody stools, chills or difficulty withurination. No skin rash, back pain, calf pain, headache or blackouts. No double vision. No difficulty withambulation. All other systems reviewed and are negative.PAST HISTORYSee nurses notes. Problems: Diabetes Mellitus. Depression. Psychosis. Substance Abuse. Additional Surgeries: no known surgeries. Medications: metFORMIN HCl ER Oral. Gabapentin Oral. Allergies: No Known Drug Allergy. 2 Clinical Report - Physicians/Mid Levels [facility] Emergency Department [address] [place] [address] Phone #: ext- [phone] 02/27/2021 22:09 [id number] Sex: [facility] : 1970 Ag e: 50ySOCIAL HISTORYLight tobacco smoker. Is a recovering addict. No alcohol use.ADDITIONAL NOTESThe nursing notes have been reviewed with agreement regarding the chief complaint, HPI, ROS, PMH andpatient medications and allergies.PHYSICAL EXAMVital Signs: 02/27/2021 22:11 BP: 164/111. MAP: 128. HR: 132. RR: 15. O2 saturation: 100%. Temp: 98.7F. Pain level now: 8. Have been reviewed. Oxygen saturation normal.Appearance: Alert. No acute distress.Eyes: Pupils equal, round and reactive to light. Eyes normal inspection.ENT: Nose normal. Pharynx normal.Neck: Normal inspection. Neck supple.CVS: Tachycardia. Normal heart rhythm. Heart sounds normal. Pulses normal.Respiratory: No respiratory distress. Painless inspiration. Breath sounds normal. Chest nontender.Abdomen: No visible injury. Soft and nontender. Bowel sounds normal. No organomegaly. No mass.Femoral pulses equal.Back: Normal inspection.Skin: Skin warm and dry. Normal skin color. No rash. Normal skin turgor.Extremities: Extremities exhibit normal ROM. No lower extremity edema.Neuro: Oriented X 3. No motor deficit. No sensory deficit.LABS, X-RAYS, AND EKGEKG: No acute process. No acute ischemia. Tachycardia (123/min). Normal ST and T waves. EKGunchanged when compared with prior EKG. (02-01-21). The study has been interpreted contemporaneouslyby me. The EKG appears to be a good tracing. Interpretation time: 22:23 02/27/2021.Bedside Tests: Glucose - 259 (performed at bedside).PROGRESS AND PROCEDURESCourse of Care: 22:46 02/27/21. pt would like to get some Metformin tonight and I will prescribe some atlocal pharmacy; pt will f/u w [facility]PLE[facility] C[facility] NURSE PRACTITIONER in next week for DB medicine adjustment; pt has nml exam in ER exceptfor intermittent tachycardia which he had in the past, pt denies substance use today; d/c instructions given,pt understands and agrees. Patient counseled in person regarding the patient's stable condition, test results, diagnosis and need for follow-up. Patient agrees with plan of care. Disposition: Condition: good and stable. Discharge decision based on the following: patient's condition is stable; patient's condition is improved; patient is ambulatory; patient is active; patient drinking fluids; patient eating; patient's pain is controlled; patient's exam is improved; no seriously abnormal test results; improving condition on repeat evaluation; social support is good; transportation is available; follow-up is available; clinical impression is consistent 3 Clinical Report - Physicians/Mid Levels [facility] Emergency Department [address] [place] [address] Phone #: ext- [phone] 02/27/2021 22:09 Patient: JOSE L LAM Sex: M : 1970 Age: 50y with outpatient treatment.CLINICAL IMPRESSION Chronic, poorly controlled type 2 diabetes with hyperglycemia.INSTRUCTIONS Do not smoke. No alcohol. (PLEASE TAKE YOUR INSULIN PRESCRIBED; PLEASE FOLLOW UP WITH YOUR FAMILY MD IN NEXT WEEK FOR DB MEDICATION ADJUSTMENT AND ENDOCRINOLOGY REFERRAL). Warnings: Further evaluation is necessary in order to conduct further tests. It is very important to follow up with a healthcare provider. GENERAL WARNINGS: Return or contact your physician immediately if your condition worsens or changes unexpectedly, if not improving as expected, or if other problems arise. Specifically return if pain, vomiting, bleeding, breathing difficulty or fever greater than 102 degrees F and not controlled by acetaminophen or ibuprofen. Your Current Medications: Your current home medications have been reviewed. CONTINUE TAKING THE FOLLOWING MEDICATIONS: Gabapentin Oral. metFORMIN HCl ER Oral. Prescription Medications: metformin 500 mg tablet Take 1 tablet twice a day for 30 days -- Dispense 60 tablet. Refills: 2. Substitution permitted. Pharmacy - [id number] - [address] [facility] ; [place], [place] [id number]. . Follow-up: Return to the emergency department as needed. Follow up with your healthcare provider in three days even if well. Call for an appointment. Reason for referral: evaluation and treatment. Summary of care provided to patient via paper. Understanding of the discharge instructions verbalized by patient. Expected course of illness, discharge instructions, activity level, diet, prescriptions x1, follow-up appointment and risks and benefits of treatment reviewed with patient and understanding verbalized. Agrees to plan of care. 4 Clinical Report - Physicians/Mid Levels [facility] Emergency Department [address] [place] [address] Phone #: ext- [phone] 02/27/2021 22:09 Patient: JOSE L LAM Sex: M : 1970 Age: 50y(Electronically signed by Trae Garcia M.D. 02/28/2021 00:32) Name Value Range Interpretation Code Description Data Fabiola rce(s) Supporting Document(s) ID Date Data Source [id number] 02/03/2021 01:19:00 [place] [address] RESPIRATORY CARE REPORT ==== ---------NAME------- NUMBER SEX AGE ADMIT DISC. XRAY# F/C DMITRIY ALEGRIA [id number] M 50 02/01/21 02/02/21 [id number] P E/R DATE OF : 1970 M/R# [id number] #: [id number] TR-03 LOCATION: EKG 52670 COMPLETE:02/02/21 0 2:55 AJP [id number] PHYSICIAN: BELIA Clinton Name Value Range Interpretation Code Description Data Fabiola rce(s) Supporting Document(s) ID Date Data Source [id number] 02/01/2021 11:44:00 PM EDT [facility] 1 OrderSheet [facility] Emergency Department [address] [place] [address] Phone #: ext- [phone] 02/01/2021 23:43 Patient: JOSE L LAM Sex: M : 1970 Age: 50yWEIGHT:72.5 kg (S)ALLERGIES: NoneCHIEF COMPLAINT: hallucinations, paranoidDIAGNOSIS: Drug abuse, Psychotic disorderLAB ORDERSOrder Description Priority Entered Acknowledged InitialedCBC w Diff STAT 23:58 02/01/2021 Ack'd: 00:07 00:41 02/02/2021 Cheo Landis ; 02/02/2021 Bhavya Hogan R.N.CMP STAT 23:58 02/01/2021 Ack'd: 00:07 00:41 02/02/2021 Cheo Landis ; 02/02/2021 Bhavya Hogan R.N.TSH STAT 23:58 02/01/2021 Ack'd: 00:07 00:41 02/02/2021 Cheo Landis ; 02/02/2021 Bhavya Hogan R.N.Acetaminophen STAT 23:58 02/01/2021 Ack'd: 00:07 00:41 02/02/2021evel Cheo Landis ; 02/02/2021 Bhavya Hogan R.N.Salicylate Level STAT 23:58 02/01/2021 Ack'd: 00:07 00:41 02/02/2021 Cheo Landis ; 02/02/2021 Bhavya Hogan R.N.ETOH STAT 23:58 02/01/2021 Ack'd: 00:07 00:41 02/02/2021 Cheo Landis ; 02/02/2021 Bhavya Hogan R.N.Drug Screen-Urine STAT 23:58 02/01/2021 Ack'd: 00:07 00:41 02/02/2021 Cheo Landis ; 02/02/2021 Bhavya Hogan RLisaUrinalysis (Clean STAT 00:08 02/02/2021 00:08 Bhavya Snow) Bhavya Hogan R.N. R.N.; Verbal order per; Cheo Landis 2 OrderSheet [facility] Emergency Department [address] [place] [address] Phone #: ext- [phone] 02/01/2021 23:43 Patient: JOSE L LAM Sex: M : 1970 Age: 50yCOVID-19 CAH (Not STAT 00:12 02/02/2021 00:41 StevenSymptomatic as Cheo Landis ; Samira SEGOVIADefined by CDC)(02/02/2021) (NotFirst Test) (NotHospitalized) (Not) (NotResident inCongregate CareSetting) (NotEmployed inHealthcare Setting)DIAGNOSTIC STUDY ORDERSOrder Description Priority Entered Acknowledged InitialedChest Portable 1 STAT 23:58 02/01/2021 Ack'd: 00:07 00:07 02/02/2021View Cheo Landis ; 0 02/02/2021 Bhavya Hogan(Oxygen?(No)) Remi MacdonaldN. R.N. Reason for Study: CoughMEDICATION/IV/DRIP/FLUID ORDERSOrder Description Priority Entered Acknowledged InitialedHaldol IM 5 mg 02:12 02/02/2021 02:18 Roberto(NOW x1) Cheo Landis ; Samira SEGOVIAGENERAL ORDERSOrder Description Priority Entered Acknowledged InitialedEKG 23:58 02/01/2021 Ack'd: 00:07 00:41 02/02/2021 Cheo Landis ; 02/02/2021 Bhavya Hogan R.N.[Electronically signed by Bhavya Matthews R.N. (04:35 02/02/2021)][Electronically signed by Cheo Landis (07:10 02/03/2021)][Elec tronically locked by Bhavya Matthews R.N. (04:35 02/02/2021)] Name Value Range Interpretation Code Description Data Fabiola rce(s) Supporting Document(s) ID Date Data Source [id number] 02/01/2021 11:44:00 PM EDT [facility] 1 Medication Reconciliation Report [facility] Emergency Department [address] [place] [address] Phone #: ext- [phone] 02/01/2021 23:43 Patient: JOSE L LAM Sex: M : 1970 Age: 50yWeight: 72.5 kgHeight/Length: 67 in.BMI: 25.1ALLERGIES: NoneThe patient's Home Medications are listed below:THE FOLLOWING MEDICATIONS NEED TO BE RECONCILED: Haldol? INSULIN PER SLIDING SCALE SEROquel Oral traZODone HCl OralThe source(s) of the original Home Medication information:Not obtained.The following Medications were given to the patient in the Emergency Department:HALDOL [IM] IM 5 mg, administered: 02:18 02/02/2021The following Medications were prescribed to the patient:None. Name Value Range Interpretation Code Description Data Fabiola rce(s) Supporting Document(s) ID Date Data Source [id number] 02/01/2021 11:44:00 PM EDT [facility] 1 Medication Administration Record [facility] Emergency Department [address] [place] [address] Phone #: ext- [phone] 02/01/2021 23:43 Patient: JOSE L LAM Sex: M : 1970 Age: 50yWeight: 72.5 kgHeight/Length: 67 inBMI: 25.1ALLERGIES: None Date/Time Medication Administered Medication OrderedGiven HALDOL [IM] (HALOPERIDOL Haldol IM 5 mg (NOW x1)02:18 02/02/2021 LACTATE)Roberto Hogan RN Dose: 5 mg IM Name Value Range Interpretation Code Description Data Fabiola rce(s) Supporting Document(s) ID Date Data Source [id number] 02/01/2021 11:44:00 PM EDT [facility] 1 General Instructions [facility] Emergency Department [address] [place] [address] Phone #: ext- [phone] 02/01/2021 23:43 Patient: JOSE L LAM Sex: M : 1970 Age: 50yAcute drug induced (methamphetamines) psychosis with hallucinations and paranoia.Occasional substance abuse- methamphetamines with hallucinations.INSTRUCTIONSWarnings: Further evaluation is necessary.GENERAL WARNINGS: Return or contact your physician immediately if your condition worsens orchanges unexpectedly, if not improving as expected, or if other problems arise.Follow-up:Follow up with your healthcare provider.Understanding of the discharge instructions verbalized by patient. ADDITIONAL INFORMATIONDrug AbuseUse and abuse of drugs or medicines may lead to addiction or dependence. Illegal drugs includemarijuana, amphetamines (speed, crank), cocaine, heroin, MDMA, ecstasy, bath salts, PCP,mescaline, and LSD. Medicines include prescription medicines, sedatives, and sleeping pills. Onceaddiction or dependence happens, you are at greater risk for any of the following.Social and personal problems Craving for the drug and not able to stop using even though you think you want to stop (psychological addiction) Drug withdrawal symptoms if you stop taking the drug (physical dependence) Loss of job or your family Arrest, conviction, and custodial sentence for possession of an illegal substance or for driving under the influenceHealth problems Strokes, heart attacks, and kidney failure 2 General Instructions [facility] Emergency Department [address] [place] [address] Phone #: ext- [phone] 02/01/2021 23:43 Patient: JOSE L LAM Sex: M : 1970 Age: 50y Accidental injuries to yourself or others while you are under the influence of the drug (in a car or at home) HIV infection. This is a much greater risk if you use IV drugs. Skin infections Other sexually transmitted infections (STIs) such as herpes, chlamydia, and gonorrhea Severe and fatal infection of the heart valves if you use IV drugs Hepatitis B or C from overdoseHome careThe following suggestions can help you care for yourself at home: Admit you have a drug problem. Ask for help from your family and close friends. Seek professional help. This could be one-on-one therapy or counseling. There are also outpatient, inpatient, and residential drug treatment programs. Join a self-help group for drug abuse. Stay away from friends who abuse drugs or tempt you to continue abusing drugs. Eat a balanced diet and start a regular exercise program.Follow-up careFollow up with your healthcare provider, or as advised. Contact one of the resources below for help: National [place] on Alcoholism and Drug Dependence, www.ncadd.org, Narcotics Anonymous, www.na.org, [employer] Substance Abuse [employer] [facility], www.Pointstic, . This center can refer you to a treatment program.Call 911Call 911 if any of the following occur: Seizure Hard time breathing or slow, irregular breathing Chest pain 3 General Instructions [facility] Emergency Department [address] [place] [address] Phone #: ext- [phone] 02/01/2021 23:43 Patient: JOSE L LAM Sex: M : 1970 Age: 50y Sudden weakness on one side of your body or sudden trouble speaking Very drowsy or trouble awakening Fainting or loss of consciousness Rapid heart rate Very slow heart rateWhen to seek medical adviceCall your healthcare provider right away if any of these occur: Agitation, anxiety, or unable to sleep Unintended weight loss. This means more than 10 to 15 pounds over 3 months. Fever of 100.4F (38C) or higher, or as directed by your healthcare provider Shortness of breath Cough with colored sputum Redness, swelling, or tenderness at an injection site [id number] [employer]. [address] [place] [address]. All rights reserved. This information is not intended as asubstitute for professional medical care. Always follow your healthcare professional's instructions. You have been given the following additional information: Drug Abuse(Electronically signed by Cheo Landis 02/03/2021 07:10) Name Value Range Interpretation Code Description Data Fabiola rce(s) Supporting Document(s) ID Date Data Source [id number] 02/01/2021 11:44:00 PM EDT [facility] 1 Clinical Report - Nurses [facility] Emergency Department [address] [place] [address] Phone #: ext- [phone] 02/01/2021 23:43 Patient: JOSE L LAM Sex: M : 1970 Age: 50yTRIAGEHistorian: EMS.Triage time: 23:41 02/01/2021.Chief Complaint: HALLUCINATIONS.Onset: just prior to arrival. ( pt called 911 stating that there were people in his hotel room. (Ptuncooperative with EMS, reportedly.) pt is a poor historian and does not know his med ications.).EMS Treatment [facility] [facility]:See EMS report. --23:47 02/01/21 Bhavya Hogan R.N.Acuity: LEVEL 2.SEPSIS SCREEN: SIRS SCREEN: heart rate greater than 90. SEPSIS SCREEN NEGATIVE. Nosuspected or confirmed signs of infection present. --23:51 02/01/21 Bhavya Hogan R.N.23:43 02/01/21. BP: 106/83. MAP: 90. HR: 107. RR: 18. O2 saturation: 98%. Temp: 98.7 F. Pain levelnow: 0/10. --23:51 02/01/21 Bhavya Hogan R.N.Weight: 72.5 kg stated. Height/Length: 67 inches Per Patient. BMI: 25.1. --23:49 02/01/21 Bhavya Hogan R.N.MedicationsINSULIN PER SLIDING SCALE. --23:47 02/01/21 Bhavya Hogan R.N. SEROquel Oral. --23:47 02/01/21 Bhavya Hogan R.N. traZODone HCl Oral. --23:47 02/01/21 Bhavya Hogan R.N. Haldol?. --23:48 02/01/21 Bhavya Hogan R.N.AllergiesNone. --23:47 02/01/21 Bhavya Hogan R.N.HistorySOCIAL HX: Light tobacco smoker. No alcohol use or drug use. He was offered HIV testing but declinedand hepatitis C testing but declined. He has not traveled outside the [place]Infectious disease exposure: No infectious disease exposure.ABUSE ASSESSMENT: No report of abuse. --23:51 02/01/21 Bhavya Hogan R.N.PAST MEDICAL HX: ( Pt reports that he does not recall what he ate last,). --23:52 02/01/21 Bhavya Khalil 2 Clinical Report - Nurses [facility] Emergency Department [address] [place] [address] Phone #: ext- [phone] 02/01/2021 23:43 Patient: JOSE L LAM Sex: M : 1970 Age: 50y Denis Hogan SELF HARM ASSESSMENT: Self harm assessment was performed. The patient answered "no" to the question(s) "Have you recently felt down, depressed, or hopeless?", "Do you have thoughts of harming or killing yourself?", "Do you have a plan for harming or killing yourself?", "Have you recently had thoughts about harming or killing others?", "Do you have any dangerous items in your possession?", "Have you noticed less interest or pleasure in doing things?", "Are you here because you tried to hurt yourself?" and "Have you ever tried to hurt yourself before today?". --23:56 02/01/21 Bhavya Hogan R.N. FALL RISK ASSESSMENT: Fall risk assessment completed. Risk factors identified include patient impairment of cognition. Fall interventions initiated. Patient visible from nurses' station. --00:07 02/02/21 Bhavya Hogan R.N. FAMILY HX: No significant family medical history. --00:05 8/7/21 Cheo Landis.NURSING PROGRESS NOTESFinger stick glucose: 276; performed by nurse; result shown to the ED physician. --00:04 02/02/21 Bhavya Ferrari R.N. Patient gowned. Head of bed elevated. Reassurance given. Call light placed in reach. Bed placed in lowest position. Brakes of bed on. ( Clothing placed in belongings bag and placed at desk.). --00:06 02/02/21 Bhavya Hogan R.N. EKG time: (00:16 02/02/2021). EKG was performed by a nurse and shown to the ED physician. Blood samples drawn with butterfly by nurse ; labeled in presence of the patient: rainbow set. Checked patient name and birthdate: patient confirmed. Clean catch urine collected. --00:47 02/02/21 Bhavya Hogan R.N. 02:18 02/02/2021 HALDOL (Haloperidol Lactate) IM 5 mg given. Given in the right anterior lateral thigh. Allergies verified and confirmed 5 rights. Information reviewed with patient including reason for taking this medication, signs of allergic reaction, precautions and sedative warning. Verbalizes understanding. --02:18 02/02/21 Roberto Hogan RN 01:00 02/02/21. BP: 112/94. MAP: 100. HR: 93. RR: 20. O2 saturation: 100%. --02:53 02/02/21 Bhavya Hogan R.N. ( [id number] Chart faxed to [facility] Online Marketing Director.). --02:54 02/02/21 Bhavya Hogan R.N. 02:00 02/02/21. BP: 148/101. MAP: 116. HR: 102. RR: 20. O2 saturation: 100%. Pain level now: 0/10. --02:56 02/02/21 Bhavya Hogan R.N. ( 219 Call placed to [facility], awaiting call back.). --02:59 02/02/21 Bhavya Hogan R.N. ( 224 Pt out of bed to bathroom, decided that he did not want staff in there with him. Started to get agitated. States that he is seeing people in his room behind his bed. Wants to have security with him to 3 Clinical Report - Nurses [facility] Emergency Department [address] [place] [address] Phone #: ext- [phone] 02/01/2021 23:43 Patient: JOSE L LAM Sex: M : 1970 Age: 50y keep him safe.). --03:02 02/02/21 Bhavya Hogan R.N. ( 0250 Pt requests to speak to the prepared foods supervisor. KM at bedside.). --03:03 02/02/21 Bhavya Hgoan R.N. 03:08 02/02/21. ( Pt insisting on leaving AMA. He activated his lifeline asking for Police to respond to the ED. notified. Pt voices that he is not suicidal and not homicidal.). --03:29 02/02/21 Bhavya Hogan R.N.DISPOSITION / DISCHARGE Departure time: 03:47 02/02/2021. Condition at departure: stable. Discharge instructions provided and reviewed with the patient. Patient verbalized understanding. Written instructions provided in Trinid[place]. The patient was discharged by the physician. He was discharged (waiting room). He left ambulatory. --03:48 02/02/21 Bhavya Hogan R.N. 03:46 02/02/21. BP: deferred. HR: deferred. RR: deferred. O2 saturation: deferred. Temp: deferred. Pain level now deferred. --03:48 02/02/21 Bhavya Hogan R.N.Locked/Released at 02/02/2021 04:35 by Bhavya Hogan R.N. Name Value Range Interpretation Code Description Data Fabiola rce(s) Supporting Document(s) ID Date Data Source [id number] 02/01/2021 11:44:00 PM EDT [facility] 1 Clinical Report - Physicians/Mid Levels [facility] Emergency Department [address] [place] [address] Phone #: ext- [phone] 02/01/2021 23:43 Patient: JOSE L LAM Sex: M : 1970 Age: 50y Time Seen: 23:50 02/01/2021. Arrived- By ambulance. Not in custody. Historian- patient.HISTORY OF PRESENT ILLNESS Chief Complaint: PARANOID and HALLUCINATIONS. This started 1 week. The patient has not exhibited a behavior change. (People were in his motel room. EMS reported that he was agitated. Patient initially called 911.). No recent drug use or alcohol consumption. Has been eating or not been depressed. No paranoia, suicidal thoughts or self-injury inflicted. The symptoms are described as moderate. No injury is present. Additional history [facility] Patient seeing people in his motel room. They were talking to him and to each other. He feels like they have followed him from his other apartment. Patient admitted for paranoid schizophrenia years ago. Similar symptoms previously.REVIEW OF SYSTEMSNo headache, dizziness, chest pain, palpitations or vomiting. No fever, urinary frequency or enlargedlymph nodes. All other systems reviewed and are negative.PAST HISTORYSee nurses notes. Depression. No history of cancer. No his tory of prior suicide attempt. Medications: Haldol?. traZODone HCl Oral. SEROquel Oral. INSULIN PER SLIDING SCALE. Allergies: None.SOCIAL HISTORYCurrent every day smoker.FAMILY HISTORYNo significant family medical history.ADDITIONAL NOTESThe nursing notes have been reviewed. 2 Clinical Report - Physicians/Mid Levels [facility] Emergency Department [address] [place] [address] Phone #: ext- [phone] 02/01/2021 23:43 Patient: JOSE L LAM Sex: M : 1970 Age: 50yPHYSICAL EXAMVital Signs: 02/01/2021 23:43 BP: 106/83. MAP: 90. HR: 107. RR: 18. O2 saturation: 98%. Temp: 98.7 F.Pain level now: 0/10.Appearance: Alert. No acute distress. Appearance is normal.Eyes: Pupils equal, round and reactive to light.Neck: Normal inspection. Neck supple.CVS: Normal heart rate. Heart sounds normal.Respiratory: Painless inspiration. Chest nontender.Abdomen: Soft.Back: No tenderness.Skin: Skin warm and dry. Normal skin color. Normal skin turgor.Extremities: Extremities exhibit normal ROM. No lower extremity edema.Psych / Neuro: Oriented X 3. Speech normal. Cognition normal. Appears to have auditory and visualhallucinations. No apparent delusions. Denies suicidal thoughts. The patient expresses phobias.Patient does not express homicidal thoughts. The patient does not appear to understand his illness.Cranial nerves normal (as tested). No cerebellar findings. No motor deficit. No sensory deficit.LABS, X-RAYS, AND EKGEKG: EKG time: 00:16 02/02. No acute ischemia. Rate: 98. Left atrial enlargement. Normal MING.Normal ST and T waves and QT. The study has been interpreted contemporaneously by me.Interpretation time: 00:27 02/02/2021.Laboratory Tests: COVID-19 CAH: (YARED: 02/02/2021 00:25) ( MsgRcvd 02/02/2021 00:56) Final results Test Result Flag Units (Reference) COVID-19 NOT DETECTED COVID-19 REENTER NOT DETECTED { PROCEDURAL CONTROL VALID KIT LOT # _[id number] 02/02/21.0055.MLE. KIT EXP DATE _05.24.21 02/02/21.0055.MLE. NORMAL RANGE IS NOT DETECTEDThe COVID-19 assay is a rapid molecular in vitro diagnostic testutilizing an isothermal nucleic acid amplification technology for thequalitative detection of nucleic acid from the SARS-CoV-2 viral RNA in directnasal or nasopharyngeal swabs. Testing should be performed within the first 7days of the onset of symptoms.NEGATIVE RESULTS SHOULD BE TREATED PRESUMPTIVE AND, IF INCONSISTENT WITHCLINICAL SIGNS AND SYMPTOMS OR NECESSARY FOR PATIENT MANAGEMENT, SHOULD BETESTED WITH DIFFERENT AUTHORIZED OR CLEARED MOLECULAR TESTS. NEGATIVE RESULTSDO NOT PRECLUDE SARS-CoV-2 INFECTION AND SHOULD NOT BE USED THE SOLE BASISFOR PATIENT MANAGEMENT DECISIONS. CBC w Diff: (YARED: 02/02/2021 00:25) ( MsgRcvd 02/02/2021 00:42) Final results Test Result Flag Units (Reference) CBC W/AUTOMATED DIFF COMPLETE BLOOD COUNT WBC 7.4 10/uL (4.2 - 11.0) RBC 4.47 L 10/uL (4.50 - 6.30) HEMOGLOBIN 12.9 L g/dL (14.0 - 16.0) HEMATOCRIT 39.2 L % (41.0 - 51.0) MCV 87.7 fL (80.0 - 94.0) MCH 28.9 pg (27.0 - 34.0) MCHC 32.9 g/dL (31.0 - 36.0) RDW 14.3 % (11.5 - 14.8) 3 Clinical Report - Physicians/Mid Levels [facility] Emergency Department [address] [place] [address] Phone #: ext- [phone] 02/01/2021 23:43 Patient: JOSE L LAM Sex: M : 1970 Age: 50y PLATELETS 179 10/uL (150 - 450) MPV 9.1 fL (7.4 - 10.4) NEUT 83.4 H % (37.0 - 80.0) LYMPH 10.1 L % (25.0 - 40.0) MONO 5.7 % (3.0 - 8.0) EOS 0.1 % (0.0 - 7.0) BASO 0.4 % (0.0 - 2.0) %IG 0.3 H % (0.0 - 0.0) %NRBC 0.0 % (0.0 - 0.0) #NEUT 6.14 10/uL (2.00 - 6.90) #LYMPH 0.74 10/uL (0.60 - 3.40) #MONO 0.42 10/uL (0.00 - 0.90) #EOS 0.01 10/uL (0.00 - 0.70) #BASO 0.03 10/uL (0.00 - 0.20) #IG 0.02 10/uL (0.00 - 0.10) #NRBC 0.00 10/uL (0.00 - 0.00) MANUAL DIFF NOT INDICATED RBC MORPH NOT INDICATEDCMP: (YARED: 02/02/2021 00:25) ( MsgRcvd 02/02/2021 01:19) Final results Test Result Flag Units (Reference) COMPREHENSIVE METABOLIC PANEL COMPREHENSIVE METABOLIC PANEL SODIUM 135 mEq/L (134 - 153) POTASSIUM 4.3 mEq/L (3.6 - 5.0) CHLORIDE 100 mEq/L (98 - 107) CO2 22 MEQ/L (22 - 30) GLUCOSE 295 H MG/DL (70 - 99) BUN 26 H MG/DL (7 - 21) CREATININE 0.9 MG/DL (0.7 - 1.5) BUN/CREAT 29 H (8 - 27) TOTAL PROTEIN 7.6 G/DL (6.3 - 8.2) ALBUMIN 4.5 G/DL (3.9 - 5.0) GLOBULIN 3.1 GM/DL (2.4 - 3.2) A/G RATIO 1.5 (0.8 - 2.0) CALCIUM 9.4 MG/DL (8.4 - 10.2) TOTAL BILI <0.7 MG/DL (0.2 - 1.3) ALKALINE PHOS 69 U/L (38 - 126) SGOT/AST 19 U/L (5 - 40) SGPT/ALT 14 U/L (7 - 56) ANION GAP 13.0 mmol/L (8.0 - 16.0) AGE 50 yrs NON-AA GFR >60 mL/min AFR AMER GFR >60 mL/min Male GFR Interprentation 20-49 yrs >60 mL/min Jffokq38-19 yrs >56 mL/min Normal 60-69 yrs >49 mL/min Normal 70-79yrs>42 mL/min Normal 80 and above >35 mL/min Normal Female GFRInterpretation 20-39 yrs >60 mL/min Normal 40-49 yrs >58 mL/minNormal 50-59 yrs >51 mL/min Normal 60-69 yrs >45 mL/min Tdxqbl11-29 yrs >39 mL/min Normal 80 and above >32 mL/min NormalTSH: (YARED: 02/02/2021 00:25) ( MtgRcvd 02/02/2021 01:20) Final results Test Result Flag Units (Reference) TSH 0.13 L uIU/mL (0.47 - 5.01)Acetaminophen Level: (YARED: 02/02/2021 00:25) ( MsgRcvd 02/02/2021 01:20) Final results Test Result Flag Units (Reference) 4 Clinical Report - Physicians/Mid Levels [facility] Emergency Department [address] [place] [address] Phone #: ext- [phone] 02/01/2021 23:43 Patient: JOSE L LAM Sex: M : 1970 Age: 50y ACETAMINOPHEN <5.0 UG/ML (0.0 - 30.0) Salicylate Level: (YARED: 02/02/2021 00:25) ( [facility] 02/02/2021 01:20) Final results Test Result Flag Units (Reference) SALICYLATE <0.4 L mg/dL (2.0 - 20.0) ETOH: (YARED: 02/02/2021 00:25) ( [facility] 02/02/2021 01:20) Final results Test Result Flag Units (Reference) ALCOHOL <10.0 MG/DL ALCOHOL % 0.00 % (0.00 - 0.01) *FOR MEDICAL PURPOSES ONLY* Drug Screen-Urine: (YARED: 02/02/2021 00:25) ( [facility] 02/02/2021 01:04) Final results Test Result Flag Units (Reference) DRUG SCREEN URINE URINE DRUG SCREEN AMPHETAMINES PRESUMP POS A (NORMAL: NEGAT BARBITURATES NEGATIVE (NORMAL: NEGAT BENZO PRESUMP POS A (NORMAL: NEGAT COCAINE NEGATIVE (NORMAL: NEGAT THC NEGATIVE (NORMAL: NEGAT OPIATES NEGATIVE (NORMAL: NEGAT PCP NEGATIVE (NORMAL: NEGAT \\BLDo\\URINE DRUG SCREEN INTERPRETATION\\BLDx\\ THE CUTOFFF LEVELS FOR DETECTION ARE FOLLOWS: AMPHETAMINES 1000 ng/ml BARBITUARATES 200 ng/ml BENZODIAZEPINES 100 ng/ml THC 50 ng/ml PHENCYCLIDINE 25 ng/ml OPIATES 300 ng/ml COCAINE 300 ng/ml ALL POSITIVES ARE CONSIDERED PRESUMPTIVE POSITIVE CONFIRMATION WILL BE PERFORMED AT PHYSICIAN REQUEST..PROGRESS AND PROCEDURESCourse of Care: 00:16 02/02/21. Patient truely believes people are in his motel, breaking into his room. Hesees them around corners, behind doors.Diabetic. not no signs of DKA 01:22 02/02/21. Patient having visual hallucinations earlier today. Possible acute psychotic episode. medically cleared for psych evaluation 02:32 02/02/21. Restless and pacing the ED. Patient looking around the stretcher as if he's having hallucinations. Patient states he just wants to get his haldol injection. 04:04 08/07/21. Patient cooperative and oriented x3. bizarre affect, but denies any suicidal or homicidal ideations. Disposition: Discharged. Condition: stable. 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 Occasional substance abuse- methamphetamines with hallucinations.INSTRUCTIONS Warnings: Further evaluation is necessary. GENERAL WARNINGS: Return or contact your physician immediately if your condition worsens or changes unexpectedly, if not improving as expected, or if other problems arise. Follow-up: Follow up with your healthcare provider. Understanding of the discharge instructions verbalized by patient.(Electronically signed by Cheo Landis 02/03/2021 07:10) Name Value Range Interpretation Code Description Data Fabiola rce(s) Supporting Document(s) ID Date Data Source [id number] 02/02/2021 10:22:00 [place] [address] PHONE: [phone] FAX: [phone] Name .................. : PHILLIP ALEGRIA Acct Number.................. : [id number] ROOM. ................. : TR-03 MR Number ................... : [id number] Stay type ............. : E/R Discharge Date......... ... : 02/02/21 Admit Date ......... : 02/01/21 Admit Phys .................... : BELIA Clinton Date of ....... : 1970 Family Phys ................... : NON STAFF Phone .................. : [phone] Age ................................ : 50 Film# .................. .:[id number] Sex ................................. : M Unsigned transcriptions are preliminary reports and do not represent a medical or legal document CHEST PORTABLE [id number] COMPLETE:02/02/21 02:16 MWB [id number] Reas on(s): Cough PORTABLE CHEST SINGLE VIEW 12:24 AM HISTORY: Cough COMPARISON: None. FINDINGS: Mediastinal and hilar structures are normal. Cardiac silhouette is unremarkable. The patient's neck is flexed and the mandible is projected over the lung apices. Lungs are clear. No pulmonary edema. No pleural effusions or pneumothorax. IMPRESSION: No acute disease. Electronically Reviewed and Signed By Christine Lopez MD , 02/02/21 10:22, JWDimitrios Transcribe Initials: MILY , Transcribe Date: 02/02/21 09:25, Dictation Date: Copy for: 710 MED REC DISC HARGED Page 1 of 1 Name Value Range Interpretation Code Description Data Fabiola rce(s) Supporting Document(s) ID Date Data Source [id number] 02/02/2021 12:55:00 AM EDT [facility] NOT DETECTEDNOT DETECTED{ PROC EDURAL CONTROL VALID KIT LOT # _[id number] 02/02/21.0055.MLE. KIT EXP DATE _05.24.21 02/02/21.0055.MLE. NORMAL RANGE IS NOT DETECTEDThe COVID-19 assay is a rapid molecular in vitro diagnostic testutilizing an isothermal nucleic acid amplification technology for thequalitative detection of nucleic acid from the SARS-CoV-2 viral RNA in directnasal or nasopharyngeal swabs. Testing should be performed within the first 7days of the onset of symptoms.NEGATIVE RESULTS SHOULD BE TREATED PRESUMPTIVE AND, IF INCONSISTENT WITHCLINICAL SIGNS AND SYMPTOMS OR NECESSARY FOR PATIENT MANAGEMENT, SHOULD BETESTED WITH DIFFERENT AUTHORIZED OR CLEARED MOLECULAR TESTS. NEGATIVE RESULTSDO NOT PRECLUDE SARS-CoV-2 INFECTION AND SHOULD NOT BE USED THE SOLE BASISFOR PATIENT MANAGEMENT DECISIONS. Name Value Range Interpretation Code Description Data Fabiola rce(s) Supporting Document(s) ID Date Data Source [id number] 02/02/2021 01:23:00 AM EDT [facility] Name Value Range Interpretation Code Description Data Fabiola rce(s) Supporting Document(s) URINALYSIS [facility] rowan URINALYSIS SOURCE R [facility] COLOR yellow NORMAL: Yellow [facility] CLARITY clear NORMAL: Clear [facility] Specific gravity of Urine by Test strip 1.025 1.001 - 1.030 [facility] pH 5 5 - 9 [facility] al Glucose [Mass/volume] in Urine by Test strip 1000 NORMAL: Negat malu [facility] Bilirubin.total [Presence] in Urine by Test strip NEG NORMAL: Negative [facility] Ketones [Presence] in Urine by Test strip 150 NORMAL: Negative [facility] Protein [Mass/volume] in Urine by Test strip 15 NORMAL: Negat malu [facility] Nitrite [Presence] in Urine by Test strip NEG NORMAL: Negative [facility] BLOOD NEG NORMAL: Negative [facility] LEUK EST NEG NORMAL: Negative [facility] Urobilinogen [Mass/volume] in Urine by Test strip NOR less danya n 1.0 mg/dL [facility] MICROSCOPIC See Below [facility] ital WBC 0 - 1 NORMAL: NONE SEEN [facility] Erythrocytes [#/volume] in Urine by Test strip 0 - 1 NORMAL: NON E SEEN [facility] EPITHELIAL FEW NORMAL: NONE SEEN [facility] Bacteria [Presence] in Urine sediment by Light microscopy Tr anastasiya NORMAL: NONE SEEN [facility] Mucus [Presence] in Urine sediment by Light microscopy 1+ NOR MAL: NONE SEEN [facility] ID Date Data Source [id number] 02/02/2021 01:20:00 AM EDT [facility] Name Value Range Interpretation Code Description Data Fabiola rce(s) Supporting Document(s) Ethanol [Moles/volume] in Blood <10.0 MG/DL [facility] ALCOHOL % 0.00 % 0.00 - 0.01 [facility] *FOR MEDICAL PURPOSES ONLY * ID Date Data Source [id number] 02/02/2021 01:20:00 AM EDT [facility] Name Value Range Interpretation Code Description Data Fabiola rce(s) Supporting Document(s) SALICYLATE <0.4 mg/dL 2.0 - 20.0 L [facility] ID Date Data Source [id number] 02/02/2021 01:20:00 AM EDT [facility] Name Value Range Interpretation Code Description Data Fabiola rce(s) Supporting Document(s) Acetaminophen [Presence] in Urine <5.0 UG/ML 0.0 - 30.0 [facility] ID Date Data Source [id number] 02/02/2021 01:19:00 AM EDT [facility] Name Value Range Interpretation Code Description Data Fabiola rce(s) Supporting Document(s) Thyrotropin [Units/volume] in Serum or Plasma by Detec tion limit <= 0.05 mIU/L 0.13 uIU/mL 0.47 - 5.01 L [facility] ID Date Data Source [id number] 02/02/2021 01:19:00 AM EDT [facility] Name Value Range Interpretation Code Description Data Fabiola rce(s) Supporting Document(s) COMPREHENSIVE METABOLIC PANEL [facility] COMPREHENSIVE METABOLIC PANEL Sodium [Moles/volume] in Serum or Plasma 135 mEq/L 134 - 153 [facility] Potassium [Moles/volume] in Serum or Plasma 4.3 mEq/L 3.6 - 5.0 [facility] Chloride [Moles/volume] in Serum or Plasma 100 mEq/L 98 - 107 [facility] Carbon dioxide, total [Moles/volume] in Serum or Plasma 22 MEQ/L 22 - 30 [facility] Glucose [Mass/volume] in Serum or Plasma 295 MG/DL 70 - 99 H [facility] BUN 26 MG/DL 7 - 21 H [facility] al Creatinine [Mass/volume] in Serum or Plasma 0.9 MG/DL 0.7 - 1.5 [facility] BUN/CREAT 29 8 - 27 H [facility] Protein [Mass/volume] in Serum or Plasma 7.6 G/DL 6.3 - 8.2 [facility] Albumin [Mass/volume] in Serum or Plasma 4.5 G/DL 3.9 - 5.0 [facility] Globulin [Mass/volume] in Serum by calculation 3.1 GM/DL 2.4 - 3.2 [facility] A/G RATIO 1.5 0.8 - 2.0 [facility] Calcium [Mass/volume] in Serum or Plasma 9.4 MG/DL 8.4 - 10.2 [facility] Bilirubin.total [Mass/volume] in Serum or Plasma <0.7 MG/DL 0.2 - 1.3 [facility] Alkaline phosphatase [Enzymatic activity/volume] in Serum or Plasma 69 U/L 38 - 126 [facility] Aspartate aminotransferase [Enzymatic activity/volume] in Serum or Plasma 19 U/L 5 - 40 [facility] Alanine aminotransferase [Enzymatic activity/volume] in Seru m or Plasma 14 U/L 7 - 56 [facility] Anion gap 3 in Serum or Plasma 13.0 mmol/L 8.0 - 16.0 [facility] AGE 50 yrs [facility] NON-AA GFR >60 mL/min [facility] ital AFR AMER GFR >60 mL/min [facility] Male GFR In terprentation 20-49 yrs >60 mL/min Normal 50-59 yrs >56 mL/min Normal 60-69 yrs >49 mL/min Normal 70-79yrs >42 mL/min Normal 80 and above >35 mL/min Normal Female GFR Interpretation 20-39 yrs >60 mL/min Normal 40-49 yrs >58 mL/min Normal 50-59 yrs >51 mL/min Normal 60-69 yrs >45 mL/min Normal 70-79 yrs >39 mL/min Normal 80 and above >32 mL/min Normal ID Date Data Source [id number] 02/02/2021 01:04:00 AM EDT [facility] Name Value Range Interpretation Code Description Data Afbiola rce(s) Supporting Document(s) DRUG SCREEN URINE [facility] URINE DRUG SCREEN Amphetamine [Presence] in Urine by Screen method PRESUMP POS CHANG L: NEGATIVE [facility] BARBITURATES NEGATIVE NORMAL: NEGATIVE [facility] BENZO PRESUMP POS NORMAL: NEGATIVE [facility] COCAINE NEGATIVE NORMAL: NEGATIVE [facility] Tetrahydrocannabinol [Presence] in Urine NEGATIVE NORMAL: NEGATIVE [facility] OPIATES NEGATIVE NORMAL: NEGATIVE [facility] Phencyclidine [Presence] in Urine by Screen method NEGATIVE NOR MAL: NEGATIVE [facility] \\BLDo\\URINE DRUG SCR EEN INTERPRETATION\\BLDx\\ THE CUTOFFF LEVELS FOR DETECTION ARE FOLLOWS: AMPHETAMINES 1000 ng/ml BARBITUARATES 200 ng/ml BENZODIAZEPINES 100 ng/ml THC 50 ng/ml PHENCYCLIDINE 25 ng/ml OPIATES 300 ng/ml COCAINE 300 ng/ml ALL POSITIVES ARE CONSIDERED PRESUMPTIVE POSITIVE CONFIRMATION WILL BE PERFORMED AT PHYSICIAN REQUEST. ID Date Data Source [id number] 02/02/2021 12:41:00 AM EDT [facility] Name Value Range Interpretation Code Description Data Fabiola rce(s) Supporting Document(s) CBC W/AUTOMATED DIFF [facility] COMPLETE BLOOD COUNT Leukocytes [#/volume] in Blood by Automated count 7.4 10^3/uL 4.2 - 1 1.0 [facility] Erythrocytes [#/volume] in Blood by Automated count 4.47 10^6/uL 4. 50 - 6.30 L [facility] Hemoglobin [Mass/volume] in Blood 12.9 g/dL 14.0 - 16.0 L [facility] Hematocrit [Volume Fraction] of Blood by Automated count 39.2 % 4 1.0 - 51.0 L [facility] Erythrocyte mean corpuscular volume [Entitic volume] by Auto mated count 87.7 fL 80.0 - 94.0 [facility] Erythrocyte mean corpuscular hemoglobin [Entitic mass] by Automated count 28.9 pg 27.0 - 34.0 [facility] Erythrocyte mean corpuscular hemoglobin concentration [Mass/volume] by Automated count 32.9 g/dL 31.0 - 36.0 [facility] Erythrocyte distribution width [Ratio] by Automated count 14.3 % 11.5 - 14.8 [facility] Platelets [#/volume] in Blood by Automated count 179 10^3/uL 150 - 45 0 [facility] Platelet mean volume [Entitic volume] in Blood by Automated count 9.1 fL 7.4 - 10.4 [facility] Neutrophils/100 leukocytes in Blood by Automated count 83.4 % 37. 0 - 80.0 H [facility] Lymphocytes/100 leukocytes in Blood by Manual count 10.1 % 25.0 - 40.0 L [facility] Monocytes/100 leukocytes in Blood by Automated count 5.7 % 3.0 - 8.0 [facility] Eosinophils/100 leukocytes in Blood by Automated count 0.1 % 0.0 - 7.0 [facility] Basophils/100 leukocytes in Blood by Automated count 0.4 % 0.0 - 2.0 [facility] %IG 0.3 % 0.0 - 0.0 H [facility] al %NRBC 0.0 % 0.0 - 0.0 [facility] Neutrophils [#/volume] in Blood by Automated count 6.14 10^3/uL 2.00 - 6.90 [facility] Lymphocytes [#/volume] in Blood by Automated count 0.74 10^3/uL 0.60 - 3.40 [facility] Monocytes [#/volume] in Blood by Automated count 0.42 10^3/uL 0.00 - 0.90 [facility] Eosinophils [#/volume] in Blood by Automated count 0.01 10^3/uL 0.00 - 0.70 [facility] Basophils [#/volume] in Blood by Automated count 0.03 10^3/uL 0.00 - 0.20 [facility] #IG 0.02 10^3/uL 0.00 - 0.10 [facility] #NRBC 0.00 10^3/uL 0.00 - 0.00 [facility] MANUAL DIFF NOT INDICATED [facility] RBC MORPH NOT INDICATED [facility] ID Date Data Source [id number] 01/23/2021 09:57:00 AM EDT [facility]) Name Value Range Interpretation Code Description Data Fabiola rce(s) Supporting Document(s) PSA total 2.6 NG/mL 0.0-4.0 PSA Total [facility] ([facility]) PSA comment . PSA Comment [facility] ([facility]) ID Date Data Source [id number] 01/23/2021 09:57:00 AM EDT [facility]) Name Value Range Interpretation Code Description Data Fabiola rce(s) Supporting Document(s) Hemoglobin A1c/Hemoglobin.total in Blood 10.6 % Hemoglobin a1C [facility] ([facility]) estimated average glucose 258 mg/dL 60-110 Above high norm al Estimated Average Glucose [facility]) ID Date Data Source [id number] 01/23/2021 09:57:00 AM EDT [facility]) Name Value Range Interpretation Code Description Data Fabiola rce(s) Supporting Document(s) total 25(oh) vitamin D 14.6 NG/mL 30.0-100.0 Below low normal T otal 25(Oh) Vitamin D [facility]) ID Date Data Source [id number] 01/23/2021 09:57:00 AM EDT [facility]) Name Value Range Interpretation Code Description Data Fabiola rce(s) Supporting Document(s) thyroid stimulating hormone 0.947 uIU/mL 0.358-3.740 Thyroid Stimulating Hormone [facility]) free T4 0.81 NG/dL 0.76-1.46 Free T4 [facility] ([facility]) ID Date Data Source [id number] 01/23/2021 09:57:00 AM EDT [facility] ([facility]) Name Value Range Interpretation Code Description Data Fabiola rce(s) Supporting Document(s) triglycerides level 164 mg/dL <150 Above high normal Triglycer ides Level [facility] ([facility]) cholesterol level 178 mg/dL <200 Cholesterol Level [facility] ([facility]) HDL cholesterol 68 mg/dL >40 HDL Cholesterol ATHE ([facility]) Cholesterol in LDL [Mass/volume] in Serum or Plasma 77 mg/dL <1 00 LDL Cholesterol [facility] ([facility]) non-HDL-C 110 mg/dL Non-hdl-c [facility] ([facility]) cholesterol risk ratio <5 Cholesterol R isk Ratio [facility] ([facility]) ID Date Data Source [id number] 01/23/2021 09:57:00 AM EDT [facility] ([facility]) Name Value Range Interpretation Code Description Data Fabiola rce(s) Supporting Document(s) blood urea nitrogen 12 mg/dL 7-18 Blood Urea Nitro gen [facility] ([facility]) glucose, fasting 354 mg/dL 70-100 Above high normal Glucose, Fas ting [facility] ([facility]) glomerular filtration rate > 60.0 >56 Glomerula r Filtration Rate [facility] ([facility]) creatinine for GFR 0.88 mg/dL 0.70-1.30 Creatinine for GF R [facility] ([facility]) sodium level 134 mEq/L 136-145 Below low normal Sodium Level ATHE NA ([facility]) potassium serum 4.1 mEq/L 3.5-5.1 Potassium Serum [facility] NA ([facility]) chloride level 101 mEq/L 98-107 Chloride Level [facility] ([facility]) anion gap 9 mEq/L 8-16 Anion Gap [facility] ([facility]) carbon dioxide level 24 mEq/L 21-32 Carbon Dioxide Level [facility] ([facility]) calcium level 9.3 mg/dL 8.5-10.1 Calcium Level [facility] ( [facility]) AST/SGOT 13 U/L 7-37 AST/SGOT [facility] ([facility]) ALT/SGPT 19 U/L 12-78 ALT/SGPT [facility] ([facility]) alkaline phosphatase 79 U/L 45-117 Alkaline Phosph atase [facility] ([facility]) bilirubin,total 0.3 mg/dL 0.2-1.0 Bilirubin,total ATHE NA ([facility]) total protein 8.2 gm/dL 6.4-8.2 Total Protein [facility] ( [facility]) albumin 3.7 gm/dL 3.2-5.2 Albumin [facility] ([facility]) albumin/globulin ratio Albumin/globu liz Ratio [facility] ([facility]) ID Date Data Source [id number] 01/23/2021 09:57:00 AM EDT [facility] ([facility]) Name Value Range Interpretation Code Description Data Fabiola rce(s) Supporting Document(s) erythrocyte sedimentation rate 35 mm/HR 0-20 Above high normal Erythrocyte Sedimentation Rate [facility] ([facility]) ID Date Data Source [id number] 01/23/2021 09:57:00 AM EDT [facility]) Name Value Range Interpretation Code Description Data Fabiola rce(s) Supporting Document(s) white blood count 7.0 10 4.0-10.0 White Blood Count [facility] ([facility]) hemoglobin 12.6 g/dL 13.5-17.5 Below low normal Hemoglobin [facility] ( [facility]) red blood count 4.41 10 4.30-6.10 Red Blood Count AT[facility] ([facility]) hematocrit 39.0 % 42.0-52.0 Below low normal Hematocrit [facility] ( [facility]) mean corpuscular volume 88.4 fL 80.0-96.0 Mean Corpusc ular Volume [facility] ([facility]) mean corpuscular HGB conc 32.3 g/dL 32.0-36.5 Mean Corpu scular HGB Conc [facility] ([facility]) mean corpuscular hemoglobin 28.6 pg 27.0-33.0 Mean Cor puscular Hemoglobin [facility] ([facility]) platelet count, automated 243 10 150-450 Platelet C ount, Automated [facility] ([facility]) red cell distribution width 14.1 % 11.5-14.5 Red Cell Distribution Width MARTIR ([facility]) lymph % 19.9 % 24.0-44.0 Below low normal Lymph % DRASCO ( [facility]) neutrophils % 70.2 % 36.0-66.0 Above high normal Neutrophils % A THENA ([facility]) eos % 0.9 % 0.0-3.0 Eos % DRASCO ([facility]) mono % 8.3 % 2.0-8.0 Above high normal Donley % DRASCO ([facility]) baso % 0.3 % 0.0-1.0 Baso % DRASCO ([facility]) nucleated red blood cell % 0.0 % 0-0 Nucleated Red Blood Cell % DRASCO ([facility]) immature granulocyte % 0.4 % 0-3.0 Immature Gran ulocyte % DRASCO ([facility]) lymph # 1.4 10 1.5-5.0 Below low normal Lymph # DRASCO ( [facility]) neutrophils # 4.9 10 1.5-8.5 Neutrophils # MARTIR ( [facility]) eos # 0.1 10 0.0-0.5 Eos # MARTIR ([facility]) mono # 0.6 10 0.0-0.8 Donley # MARTIR ([facility]) baso # 0.0 10 0.0-0.2 Baso # MARTIR ([facility]) ID Date Data Source [id number] 12/13/2020 03:17:00 AM EDT [facility] Name Value Range Interpretation Code Description Data Fabiola rce(s) Supporting Document(s) SARS-CoV-2 (COVID 19) NEGATIVE - SARS-CoV-2 (COVID19) [facility] This lab was ordered by [facility] a nd reported by [facility]. ID Date Data Source [id number] 11/30/2020 03:22:00 PM EDT [facility] Name Value Range Interpretation Code Description Data Fabiola rce(s) Supporting Document(s) SARS coronavirus 2 RNA [Presence] in Res piratory specimen by WILEY with probe detection NEGATIVE [facility] This lab was ordered by [facility] a nd reported by [facility]. ID Date Data Source [id number] 11/06/2020 11:14:00 AM EDT [facility] Name Value Range Interpretation Code Description Data Fabiola rce(s) Supporting Document(s) GLUCOSE,METER 65-100 Above high normal [facility] ID Date Data Source [id number] 11/06/2020 09:49:14 AM EDT [facility] PATIENT INFORMATIONPatient MRN Name Date of [id number] Jose L Lam 1970 50 y.o. Weight Gender PT Class 66.7 kg M Psych InptPT Location Admission Date/Time Visit ID Attending [id number] 10/28/20 1613 --- Christine Cobb MD([id number]) EPI ID CSN Admitting Provider [id number] Eric Michel DO([id number])Psychiatric Discharge NoteDischarge Diagnosis: chronic schizophreniaPrincipal Problem: Paranoid schizophrenia ([facility] HCC Code)Active Problems: Depressive disorder Generalized anxiety disorder Polysubstance dependence ([facility] HCC Code) Tobacco user Viral hepatitis C Vitamin D deficiency Type 2 diabetes mellitus without complication, with long-term current use ofinsulin ([facility] HCC Code)Hospital Course: Jose L Lam is a 50 yo male who presented with delusions,auditory hallucinations, and suicidal ideation. He believed that there werepeople outside of his home trying to harm him and heard voices threatening toharm him. On the unit he has been on Haldol (10 mg 3x/day) and Seroquel (600 mgbedtime), both increased since admission. On exam today he is fully alert,cooperative, and pleasant. He is euthymic and speaks with full range of affect.He is no longer delusional and is future focused. He says he feels safe to leavethe hospital. He has talked about the importance of staying on his medicationsand also expressed interest in finding group therapy in his community. There wassome concerns about whether his apartment was livable but his therapist(Nataliia Harris from [facility]) was able to confirm that it is safe forpeng to live there. He is excited to return home and go grocery shopping with histherapist later. He is set to leave at 1:00 pm today.Current Facility-Administered MedicationsMedication Dose Route Frequency Provider Last Rate Last Admin acetaminophen (TYLENOL) tablet 650 mg 650 mg Oral Q4H PRN Eric Michel DO aluminum-magnesium hydroxide-simethicone (MAALOX, MYLANTA) 200-200-20 mg/5 mLsuspension 30 mL 30 mL Oral Q4H PRN Eric Michel DO benztropine (COGENTIN) tablet 1 mg 1 mg Oral Daily Eric Michel DO 1 mg at11/06/20 0803 dextrose 50% in water (D50w) syringe 25 mL 12.5 g Intravenous PRN Catherine Gregg MD Or glucagon (human recombinant) (GlucaGEN) injection 1 mg 1 mg Intramuscular PRNACatherine reeder MD haloperidoL (HALDOL) tablet 10 mg 10 mg Oral TID Christine Cobb MD 10 mg at11/06/20 0803 LORazepam (ATIVAN) tablet 2 mg 2 mg Oral Q4H PRN Christine Cobb MD And haloperidoL (HALDOL) tablet 5 mg 5 mg Oral Q4H PRN Christine Cobb MD LORazepam (ATIVAN) injection 2 mg 2 mg Intramuscular Q4H PRN Christine Cobb MD And haloperidol lactate (HALDOL) injection 5 mg 5 mg Intramuscular Q4H PRN Christine Cobb MD insulin glargine (LANTUS) injection 18 Units 18 Units Subcutaneous BID Catherine Gregg MD 18 U nits at 11/06/20 0801 insulin lispro (HumaLOG,ADMELOG) injection 2-10 Units 2- 10 Units SubcutaneousTID AC Catherine Gregg MD 2 Units at 11/06/20 0802 magnesium hydroxide (MILK OF MAGNESIA) 400 mg/5 mL suspension 30 mL 30 mLOral Daily PRN Anand, Eric, DO metFORMIN (GLUCOPHAGE) tablet 850 mg 850 mg Oral BID MEALS Catherine Gregg MD850 mg at 11/06/20 0804 nicotine polacrilex (NICORETTE) gum 2 mg 2 mg Oral Q2H PRN Eric Michel DO QUEtiapine (SEROquel) tablet 600 mg 600 mg Oral Bedtime Christine Cobb MD600 mg at 11/04/20 2109 SITagliptin (JANUVIA) tablet 25 mg 25 mg Oral Daily Catherine Gregg MD 25 mgat 11/06/20 0803 traZODone (DESYREL) tablet 50 mg 50 mg Oral Bedtime PRN Eric Michel, DODischarge Plan: Pt will be discharged to home and linked with outpatient followup. He will be meeting with his therapist today at his home.Justification for multiple neuroleptics: At the time of his admission, thepatient was admitted on 2 neuroleptics, specifically Seroquel 400 mg p.o.nightly and Haldol 10 mg p.o. twice daily. Because of the severity of hisdelusions and this being his fifth hospitalization in approximately 2 months,each of these was pushed in dosage; the Seroquel was increased to 600 mg nightlyand Haldol increased to 10 mg 3 times a day. It is my expectation andrecommendation that as he stabilizes on the higher doses of Seroquel and Haldol,he will likely tolerate a decrease in one of the medications over time, possiblyleading to a taper to discontinue. This will be followed up on an outpatientbasis.Jessenia GarrettMT psychiatry attending addendumPatient seen and evaluated with medical student. Chart reviewed. The abovenote has been carefully reviewed and edited to reflect the input of this journalists and other writers.The patient is currently presenting as not psychotic, showing no evidence ofsuicidal thinking and future focused on return home.Christine Cobb MD Name Value Range Interpretation Code Description Data Fabiola rce(s) Supporting Document(s) ID Date Data Source [id number] 11/06/2020 07:10:00 AM EDT [facility] Name Value Range Interpretation Code Description Data Fabiola rce(s) Supporting Document(s) GLUCOSE,METER 65-100 Above high normal [facility] ID Date Data Source [id number] 11/05/2020 07:44:00 PM EDT [facility] Value Range Interpretation Code Description Data Fabiola rce(s) Supporting Document(s) GLUCOSE,METER 65-100 Above high normal [facility] ID Date Data Source [id number] 11/05/2020 04:12:00 PM EDT [facility] Value Range Interpretation Code Description Data Fabiola rce(s) Supporting Document(s) GLUCOSE,METER 65-100 Above high normal [facility] ID Date Data Source [id number] 11/05/2020 11:22:00 AM EDT [facility] Value Range Interpretation Code Description Data Fabiola rce(s) Supporting Document(s) GLUCOSE,METER 65-100 Above high normal [facility] ID Date Data Source [id number] 11/05/2020 06:45:00 AM EDT [facility] Value Range Interpretation Code Description Data Fabiola rce(s) Supporting Document(s) GLUCOSE,METER 65-100 Above high normal [facility] ID Date Data Source [id number] 11/04/2020 09:18:00 PM EDT [facility] Value Range Interpretation Code Description Data Fabiola rce(s) Supporting Document(s) GLUCOSE,METER 65-100 Above high normal [facility] ID Date Data Source [id number] 11/04/2020 11:20:00 AM EDT [facility] Value Range Interpretation Code Description Data Fabiola rce(s) Supporting Document(s) GLUCOSE,METER 65-100 Above high normal [facility] ID Date Data Source [id number] 11/04/2020 08:22:00 AM EDT [facility] Value Range Interpretation Code Description Data Fabiola rce(s) Supporting Document(s) GLUCOSE,METER 65-100 Above high normal [facility] ID Date Data Source [id number] 11/04/2020 06:52:00 AM EDT [facility] Value Range Interpretation Code Description Data Fabiola rce(s) Supporting Document(s) GLUCOSE,METER 65-100 Normal (applies to non-numeric re sults) [facility] ID Date Data Source [id number] 11/03/2020 09:40:00 PM EDT [facility] Name Value Range Interpretation Code Description Data Fabiola rce(s) Supporting Document(s) GLUCOSE,METER 65-100 Above high normal [facility] ID Date Data Source [id number] 11/03/2020 11:18:00 AM EDT [facility] Value Range Interpretation Code Description Data Fabiola rce(s) Supporting Document(s) GLUCOSE,METER 65-100 Above high normal [facility] ID Date Data Source [id number] 11/02/2020 09:13:00 PM EDT [facility] Name Value Range Interpretation Code Description Data Fabiola rce(s) Supporting Document(s) GLUCOSE,METER 65-100 Above high normal [facility] ID Date Data Source [id number] 11/02/2020 04:39:00 PM EDT [facility] Value Range Interpretation Code Description Data Fabiola rce(s) Supporting Document(s) GLUCOSE,METER 65-100 Above high normal [facility] ID Date Data Source [id number] 11/02/2020 11:24:00 AM EDT [facility] Value Range Interpretation Code Description Data Fabiola rce(s) Supporting Document(s) GLUCOSE,METER 65-100 Above high normal [facility] ID Date Data Source [id number] 11/02/2020 06:00:00 AM EDT [facility] Value Range Interpretation Code Description Data Fabiola rce(s) Supporting Document(s) GLUCOSE,METER 65-100 Above high normal [facility] ID Date Data Source [id number] 11/01/2020 04:15:00 PM EDT [facility] Value Range Interpretation Code Description Data Fabiola rce(s) Supporting Document(s) GLUCOSE,METER 65-100 Above high normal [facility] ID Date Data Source [id number] 11/01/2020 11:27:00 AM EDT [facility] Value Range Interpretation Code Description Data Fabiola rce(s) Supporting Document(s) GLUCOSE,METER 65-100 Above high normal [facility] ID Date Data Source [id number] 11/01/2020 10:51:00 AM EDT [facility] Name Value Range Interpretation Code Description Data Fabiola rce(s) Supporting Document(s) SARS coronavirus 2 RNA [Presence] in Uns pecified specimen by WILEY with probe detection Not [facility] lab was ordered by [facility] and reported by [place]. ID Date Data Source [id number] 11/01/2020 01:37:00 PM EDT [facility] Source->NasopharyngealIs this test for d iagnosis or screening?->ScreeningRelease to patient->ImmediateReason for COVID-19 test->Routine testing of asymptomatichospitalized patientsUnit Collect Name Value Range Interpretation Code Description Data Fabiola rce(s) Supporting Document(s) SOURCE Nasopharyngeal [facility] SARS-CoV-2 BY RT-PCR Not detected Normal (applies to non-n umeric results) [facility] NEGATIVE RESULTA negative ("Not detected ") result does not vyckkwgpTIWQ-WcV-2 infection, and a negative result should not beused as the only basis for patient management decisions.A positive ("Detected") result indicates the presenceof SARS-CoV-2 RNA, the virus linked to COVID-19 disease.Patient guidance: If your result is positive, self-isolateuntil you receive further instructions. Even if your resultis negative you should continue to follow all public healthmandates for social distancing, masking etc. If you havequestions about your result, contact your health care provider;if at any time you develop severe symptoms, go to an EmergencyDepartment or call 911. For additional information please [email or web address] es: Coronavirus in [email or web address] hospitalGet the latest reopening updates, travel guidelines, and learn howeden medical centeres and schools are impacted.[email or web address] was performed on the yony? Alvina? System using yony?SARS-CoV-2 & Influenza A/B reagent. This is a kicv-liahAQ-TDB assay which qualitatively detects nucleic acid fromsevere acute respiratory syndrome coronavirus 2 (SARS-CoV-2)in suitable respiratory specimens such as nasopharyngeal swabs.This assay has been approved for use under an Emergency UseAuthorization (EUA) by the Food and Drug Administration (FDA). ID Date Data Source [id number] 11/01/2020 06:48:00 AM EDT [facility] Value Range Interpretation Code Description Data Fabiola rce(s) Supporting Document(s) GLUCOSE,METER 65-100 Above high normal [facility] ID Date Data Source [id number] 10/31/2020 08:02:00 PM EDT [facility] Value Range Interpretation Code Description Data Fabiola rce(s) Supporting Document(s) GLUCOSE,METER 65-100 Above high normal [facility] ID Date Data Source [id number] 10/31/2020 04:11:00 PM EDT [facility] Value Range Interpretation Code Description Data Fabiola rce(s) Supporting Document(s) GLUCOSE,METER 65-100 Above high normal [facility] ID Date Data Source [id number] 10/31/2020 11:19:00 AM EDT [facility] Value Range Interpretation Code Description Data Fabiola rce(s) Supporting Document(s) GLUCOSE,METER 65-100 Above high normal [facility] ID Date Data Source [id number] 10/31/2020 06:50:00 AM EDT [facility] Value Range Interpretation Code Description Data Fabiola rce(s) Supporting Document(s) GLUCOSE,METER 65-100 Above high normal [facility] ID Date Data Source [id number] 10/30/2020 09:47:00 PM EDT [facility] Value Range Interpretation Code Description Data Fabiola rce(s) Supporting Document(s) GLUCOSE,METER 65-100 Above high normal [facility] ID Date Data Source [id number] 10/30/2020 04:28:00 PM EDT [facility] Value Range Interpretation Code Description Data Fabiola rce(s) Supporting Document(s) GLUCOSE,METER 65-100 Above high normal [facility] ID Date Data Source [id number] 10/30/2020 12:10:00 PM EDT [facility] Value Range Interpretation Code Description Data Fabiola rce(s) Supporting Document(s) GLUCOSE,METER 65-100 Normal (applies to non-numeric re sults) [facility] ID Date Data Source [id number] 10/30/2020 11:15:23 AM EDT [facility] PATIENT INFORMATIONPatient MRN Name Date of [id number] Jose L Lam 1970 50 y.o. Weight Gender PT Class 66.7 kg M EmergencyPT Location Admission Date/Time Visit ID Attending [id number] 10/30/20 0924 --- Amna Lobato MD([id number]) EPI ID CSN Admitting Provider [id number] ---[facility] EMERGENCY DEPTHistoryChief ComplaintPatient presents with Xmetqhyxgpl22 y.o. male with past medical history significant for diabetes andschizophrenia presenting to the emergency department from our inpatientpsychiatric unit for evaluation of hypotension. On vital sign checks thismorning, patient's blood pressure was found to be in the 90s systolic. He wassent to the emergency department for IV fluids. Patient states that he has beeneating and drinking "okay." He denies any medical complaints currently. Therewas a question of a possible fall earlier today but this was not witnessed bystaff. Patient denies any injuries or trauma. No syncope.History provided by: PatientLanguage commodities trader used: NoPast Medical History:Diagnosis Date Depression Diabetes mellitus ([facility] HCC Code) Schizo affective schizophrenia ([facility] HCC Code)History reviewed. No pertinent surgical history.No family history on file.Social HistoryTobacco Use Smoking status: Current Every Day Smoker Types: CigarettesSubstance Use Topics Alcohol use: Not Currently Drug use: Not CurrentlySexual ActivitySubstance and Sexual ActivitySexual Activity Not on fileReview of SystemsConstitutional: Positive for fatigue.HENT: Negative.Respiratory: Negative.Cardiovascular: Negative.Gastrointestinal: Negative.Psychiatric/Behavioral: Positive for dysphoric mood and sleep disturbance.Negative for suicidal ideas.All other systems reviewed and are negative.Physical ExamVitals: 10/30/20 0904BP: 101/64Pulse: 75Resp: 16Temp: 36.2 C (97.1 F)TempSrc: TemporalSpO2: 98%Weight: 66.7 kg (147 lb)Physical ExamVitals and nursing note reviewed.Constitutional: General: He is not in acute distress. Appearance: He is well-developed.HENT: Head: Normocephalic and atraumatic.Eyes: General: No scleral icterus. Extraocular Movements: Extraocular movements intact.Cardiovascular: Rate and Rhythm: Normal rate and regular rhythm. Pulses: Normal pulses.Pulmonary: Effort: Pulmonary effort is normal. No respiratory distress. Breath sounds: No wheezing, rhonchi or rales.Abdominal: Palpations: Abdomen is soft. Tenderness: There is no abdominal tenderness. There is no guarding orrebound.Musculoskeletal: General: No tenderness. Normal range of motion. Cervical back: Normal range of motion and neck supple.Skin: General: Skin is warm and dry. Capillary Refill: Capillary refill takes less than 2 seconds.Neurological: Mental Status: He is alert and oriented to person, place, and time. Sensory: No sensory deficit. Motor: No weakness.Psychiatric: Attention and Perception: Attention normal. Mood and Affect: Mood normal. Behavior: Behavior normal.ED Procedures EKGDate/Time: 10/30/2020 9:13 AMPerformed by: Amna Lobato MDAuthorized by: Amna Lobato MDEKG reviewed: EKG reviewed and personally interpreted by [facility] Hospitalardiac rate (bpm): 89 bpmEKG rhythm: sinus rhythmAxis: normalPR interval: normal TN intervalQRS interval: normal QRS intervalQT interval: normal QT intervalST segment: ST segments normalT wave inversion on lead: aVL and Z5Glkewxsv impression: NSR ED CourseDifferential diagnosis: Dehydration, electrolyte abnormality, arrhythmia -doubtsepsis, ACS or acute cardiopulmonary etiologyGeneral review: Laboratory data were reviewed and interpreted and theinformation was used to make clinical decisions.Independent review: EKGED course details: Patient was seen and examined. He is nontoxic in appearanceand without complaint currently. We will give fluid bolus, check basiclaboratory testing and reevaluate.11:10 AM blood pressure is 100 systolic. Patient was given 2 L of IV fluid inthe emergency department. Patient is completely asymptomatic at this point.Laboratory testing reveals very slight elevation in creatinine of 0.8-1.0.BUN/creatinine ratio favors a prerenal etiology. I discussed the case with , who is covering for medical consult for psychiatric floor. He agreeswith plan for transfer back to [facility]. I spoke with our CPEP team and they statedthat patient should be able to be transferred to [facility] without a anotherpsychiatric evaluation in the emergency department.Admission: The admitting physician was notified, case discussed, and futherpatient care was handed off. I had a detailed discussion with the patient and/orguardian regarding the historical points, exam findings, and any diagnosticresults supporting the admission diagnosis.ED AttestationAttestationPettit, Amna Singletary MD10/30/20 1115 Name Value Range Interpretation Code Description Data Fabiola rce(s) Supporting Document(s) ID Date Data Source [id number] 10/30/2020 09:54:00 AM EDT [facility] Release to patient->ImmediateUnit Colle t Name Value Range Interpretation Code Description Data Fabiola rce(s) Supporting Document(s) SODIUM 136-145 Normal (applies to non-numeric resul ts) [facility] POTASSIUM 3.5-5.2 Normal (applies to non-numeric resul ts) [facility] CHLORIDE 100-110 Normal (applies to non-numeric resul ts) [facility] CO2 22-31 Normal (applies to non-numeric results) [facility] ANION GAP 3-18 Normal (applies to non-numeric resul ts) [facility] BUN 7-21 Above high normal [facility] CREATININE 0.8-1.3 Normal (applies to non-numeric resul ts) [facility] GLUCOSE 60-100 Above high normal [facility] CALCIUM 8.4-10.0 Normal (applies to non-numeric resul ts) [facility] ID Date Data Source [id number] 10/30/2020 10:01:00 AM EDT [facility] Release to patient->ImmediateUnit Colle t Name Value Range Interpretation Code Description Data Fabiola rce(s) Supporting Document(s) REACTIVE LYMPHS 0-0 Above high normal [facility] MANUAL DIFFERENTIAL PERFORMED [facility] RBC MORPHOLOGY NORMAL [facility] ID Date Data Source [id number] 10/30/2020 10:01:00 AM EDT [facility] Release to patient->ImmediateUnit Collec t Name Value Range Interpretation Code Description Data Fabiola rce(s) Supporting Document(s) WBC 4.7-10.6 Normal (applies to non-numeric resul ts) [facility] RBC 4.69-6.09 Below low normal [facility] HGB 13.8-17.9 Below low normal [facility] HCT 43-51 Below low normal [facility] MCV 80-97 Normal (applies to non-numeric results) [facility] MCH 26.6-30.7 Normal (applies to non-numeric resul ts) [facility] MCHC 31.8-34.9 Normal (applies to non-numeric resul ts) [facility] RDW 12.9-16.0 Normal (applies to non-numeric resul ts) [facility] PLATELET COUNT 142-414 Normal (applies to non-numeric r esults) [facility] MPV 8.9-12.3 Normal (applies to non-numeric resul ts) [facility] NEUTROPHILS 45-75 Normal (applies to non-numeric resu lts) [facility] LYMPHOCYTES 15-45 Normal (applies to non-numeric resu lts) [facility] MONOCYTES 0-15 Normal (applies to non-numeric resul ts) [facility] EOSINOPHILS 0-5 Normal (applies to non-numeric resu lts) [facility] BASOPHILS 0-3 Normal (applies to non-numeric resul ts) [facility] NEUTROPHIL # 2.0-7.2 Normal (applies to non-numeric res ults) [facility] LYMPHOCYTE # 0.6-3.3 Normal (applies to non-numeric res ults) [facility] MONOCYTE # 0.1-1.1 Normal (applies to non-numeric resul ts) [facility] EOSINOPHIL # 0.0-0.7 Normal (applies to non-numeric res ults) [facility] BASOPHIL # 0.0-0.1 Normal (applies to non-numeric resul ts) [facility] ID Date Data Source [id number] 10/30/2020 09:54:00 AM EDT [facility] Release to patient->ImmediateUnit Collec t Name Value Range Interpretation Code Description Data Fabiola rce(s) Supporting Document(s) GFR BLACK 56-130 Normal (applies to non-numeric resul ts) [facility] For both GFR and GFR BLACK, th e accuracy of the GFRcalculation is contingent on a stable level of serumcreatinine. The GFR calculation is normalized to 1.73 "meterssquared" body surface area. A GFR less than 60 may alterclinical management decisions. A GFR within the age-adjustedreference range does not exclude kidney disease. ID Date Data Source [id number] 10/30/2020 09:54:00 AM EDT [facility] Release to patient->ImmediateUnit Collec t Name Value Range Interpretation Code Description Data Fabiola rce(s) Supporting Document(s) GFR 56-130 Normal (applies to non-numeric re sults) [facility] ID Date Data Source [id number] 10/30/2020 08:56:00 AM EDT [facility] Name Value Range Interpretation Code Description Data Fabiola rce(s) Supporting Document(s) SARS coronavirus 2 RNA [Presence] in Uns pecified specimen by WILEY with probe detection Not detected [facility] This lab was ordered by [facility] and reported by [place]. ID Date Data Source [id number] 10/30/2020 09:58:00 AM EDT [facility] Source->NasopharyngealIs this test for d iagnosis or screening?->ScreeningRelease to patient->ImmediateReason for COVID-19 test->Routine testing of asymptomatichospitalized patientsUnit Collect Name Value Range Interpretation Code Description Data Fabiola rce(s) Supporting Document(s) SOURCE Nasopharyngeal [facility] SARS-CoV-2 BY RT-PCR Not detected Normal (applies to non-n umeric results) [facility] NEGATIVE RESULTA negative ("Not detected ") result does not zsrzolzaGRMH-QbE-0 infection, and a negative result should not beused as the only basis for patient management decisions.A positive ("Detected") result indicates the presenceof SARS-CoV-2 RNA, the virus linked to COVID-19 disease.Patient guidance: If your result is positive, self-isolateuntil you receive further instructions. Even if your resultis negative you should continue to follow all public healthmandates for social distancing, masking etc. If you havequestions about your result, contact your health care provider;if at any time you develop severe symptoms, go to an EmergencyDepartment or call 911. For additional information please [email or web address] es: Coronavirus in [email or web address] the latest reopening updates, travel guidelines, and learn howeden medical centeres and schools are impacted.[email or web address].[place].gov/homeTesting was performed on the yony? Alvina? System using yony?SARS-CoV-2 & Influenza A/B reagent. This is a [id number] assay which qualitatively detects nucleic acid fromsevere acute respiratory syndrome coronavirus 2 (SARS-CoV-2)in suitable respiratory specimens such as nasopharyngeal swabs.This assay has been approved for use under an Emergency UseAuthorization (EUA) by the Food and Drug Administration (FDA). ID Date Data Source [id number] 10/30/2020 06:56:00 AM EDT [facility] Name Value Range Interpretation Code Description Data Fabiola rce(s) Supporting Document(s) GLUCOSE,METER 65-100 Above high normal [facility] ID Date Data Source [id number] 10/29/2020 08:28:00 PM EDT [facility] Name Value Range Interpretation Code Description Data Fabiola rce(s) Supporting Document(s) GLUCOSE,METER 65-100 Above high normal [facility] ID Date Data Source [id number] 10/29/2020 04:24:00 PM EDT [facility] Name Value Range Interpretation Code Description Data Fabiola rce(s) Supporting Document(s) GLUCOSE,METER 65-100 Above high normal [facility] ID Date Data Source [id number] 10/29/2020 02:52:05 PM EDT [facility] PATIENT INFORMATIONPatient MRN Name Date of [id number] Jose L Lam 1970 50 y.o. Weight Gender PT Class 66.7 kg M Psych InptPT Location Admission Date/Time Visit ID Attending [id number] 10/28/20 1613 --- Christine Cobb MD([id number]) EPI ID CSN Admitting Provider [id number] Eric Michel DO([id number])Psychiatrist Note - Comprehensive Psychiatric Emergency ProgramDate: 10/28/20 at 5:07 PMConsultant requested By: Dr. Steele of Present IllnessPlease see clinical director of assisted living note for comprehensive detailsThis is a 50-year-old -[place]ian male with history of schizophrenia andsubstance use who was transferred [facility] due to paranoiaand command auditory hallucinations. Patient reports he has been hearing voicestelling him to harm himself and others. He has been calling the police tellingthem that someone is trying to harm him. Patient reports he is on Haldol andhas been compliant. Patient was drowsy overall and had a difficult timeanswering questions. He reports that he does use drugs including Sarai andcocaine. Patient notes he has been hospitalized previously in the past and hasattempted suicide in the past. Patient reports he has attempted to slit hiswrists in the past as well as overdose. He is currently living alone andsingle.Vital SignsVitals: 10/28/20 1615BP: 92/61Pulse: 97Resp: 18Temp: 36.5 C (97.7 F)MENTAL STATUS EXAMCognitionAlertness: DrowsyAttention: (Patient had to be prompted to wake up multiple times.)Orientation: Oriented to person, Oriented to place, Oriented to time, Orientedto situationMemory: Intact recallCooperation with Exam: Yes, cooperativeAppearance and BehaviorAppearance: NeatAppears stated age and healthy: YesEye Contact: (Patient had his eyes closed the entire evaluation due to beingvery drowsy.)Level of activity: Normal level of activityGeneral Behavior: CooperativeSpeech Rate, Speed, and Tone: Normal speech rate, Normal volume, GoodarticulationEmotionsMood: (Due to patient being so drowsy it is hard to assess his mood.)Affect: Appropriate for situationForm of ThoughtThought form / process: LinearPerception: No distortionPerception Comment: Patient reports vocies are telling him to kill himself andthat they are going to kill him.Distortion : HallucinationHallucination: AuditoryHarmSuicide: Thoughts/ideationSuicide Comment: Patient reports suicidal ideation due to persistent voices.Patient denies plan and intent.Harm to others: No thoughts of harm to othersInsightInsight: FairJudgementJudgement: FairCurrent DiagnosisSchizophrenia, paranoid typeCocaine use disorderAssessmentThis is a 50-year-old -[place]uneian male with history of schizophrenia andsubstance abuse who presents due to paranoia and command auditoryhallucinations. Patient continues to report paranoid delusions and commandauditory hallucinations telling him to harm himself and others. Patientrequires inpatient hospitalization for safety and stabilization.PlanPatient [facility] under 9.37 for safety and stabilization.Ecosystem Ecology Professor: Eric Michel DO at 5:07 PM Name Value Range Interpretation Code Description Data Fabiola rce(s) Supporting Document(s) ID Date Data Source [id number] 10/29/2020 11:34:00 AM EDT [facility] Name Value Range Interpretation Code Description Data Fabiola rce(s) Supporting Document(s) GLUCOSE,METER 65-100 Above high normal [facility] ID Date Data Source [id number] 10/29/2020 06:37:00 AM EDT [facility] Name Value Range Interpretation Code Description Data Fabiola rce(s) Supporting Document(s) GLUCOSE,METER 65-100 Above high normal [facility] ID Date Data Source [id number] 10/29/2020 12:15:00 PM EDT [facility] Release to patient->ImmediateUnit Colle t Name Value Range Interpretation Code Description Data Fabiola e(s) Supporting Document(s) eAVERAGE GLUCOSE 68-126 Above high normal [facility] HEMOGLOBIN A1C 4.2-5.6 Above high normal [facility] Herpes simplex virus Type I by Direct Fl uorescent Antibody Stain.No Varicella Zoster Virus by Direct Fluorescent Antibody Stain.Per ADA 2018 Guidelines, HbA1c values should be interpreted as follows: Normal: less than 5.7% Prediabetes: 5.7% - 6.4% Diabetes: greater than 6.4%Samples containing >7% HbF may yield lower than expected HbA1c results.Additional testing not affected by HbF can be requested if clinicallyindicated. Contact [phone] for more information. ID Date Data Source [id number] 10/30/2020 12:20:00 PM EDT [facility] Release to patient->ImmediateUnit [facility] t Name Value Range Interpretation Code Description Data Fabiola rce(s) Supporting Document(s) HEP C RNA PCR(QUANT) NOT DETECTED Abnormal (applies to non -numeric results) [facility] HEP C RNA PCR LOG CONVERSION 0.0 Abnormal (applies to non-numeric results) [facility] The HCV Viral Load assay is reported in [employer] Unit[employer] HCV RNA per mL of plasma, as well as in logarithmic units.The analytical measuring range of the assay is 15 to100,000,000 IU/mL (1.18 log IU/ml to 8 log IU/ml)and the lower limit of detection of the assay is 15 IU/mL.This test was performed using the FDA approved Teja COBASHCV Quantitative Nucleic Acid Test (NINO). ID Date Data Source [id number] 10/29/2020 02:01:00 PM EDT [facility] Release to patient->Immediateit [facility] t Name Value Range Interpretation Code Description Data Fabiola rce(s) Supporting Document(s) T PALLIDUM AB NONREACTIVE Normal (applies to non-numeric r esults) [facility] T.pallidum Antibody Index: less than 0.9 0A non-reactive test result does not exclude the possibility ofexposure to or infection with syphilis. T.pallidum antibodiesmay be undetectable in some stages of the infection and insome clinical conditions. If lab results are inconsistent withthe clinical picture, please retest the patient..T. pallidum Antibody Interpretation:Negative........less than 0.90 TPal Ab IndexEquivocal............0.90-1.09 TPal Ab IndexPositive...............>= 1.10 TPal Ab Index ID Date Data Source [id number] 10/29/2020 07:11:00 AM EDT [facility] Release to patient->ImmediateUnit [facility] t Name Value Range Interpretation Code Description Data Fabiola rce(s) Supporting Document(s) GFR BLACK 56-130 Normal (applies to non-numeric resul ts) [facility] For both GFR and GFR BLACK, th e accuracy of the GFRcalculation is contingent on a stable level of serumcreatinine. The GFR calculation is normalized to 1.73 "meterssquared" body surface area. A GFR less than 60 may alterclinical management decisions. A GFR within the age-adjustedreference range does not exclude kidney disease. ID Date Data Source [id number] 10/29/2020 07:11:00 AM EDT [facility] Release to patient->ImmediateUnit [facility] t Name Value Range Interpretation Code Description Data Fabiola rce(s) Supporting Document(s) GFR 56-130 Normal (applies to non-numeric re sults) [facility] ID Date Data Source [id number] 10/29/2020 07:11:00 AM EDT [facility] Release to patient->ImmediateUnit [facility] t Name Value Range Interpretation Code Description Data Fabiola rce(s) Supporting Document(s) SODIUM 136-145 Normal (applies to non-numeric resul ts) [facility] POTASSIUM 3.5-5.2 Normal (applies to non-numeric resul ts) [facility] CHLORIDE 100-110 Normal (applies to non-numeric resul ts) [facility] CO2 22-31 Normal (applies to non-numeric results) [facility] ANION GAP 3-18 Normal (applies to non-numeric resul ts) [facility] BUN 7-21 Normal (applies to non-numeric results) [facility] CREATININE 0.8-1.3 Normal (applies to non-numeric resul ts) [facility] GLUCOSE 60-100 Normal (applies to non-numeric resul ts) [facility] CALCIUM 8.4-10.0 Normal (applies to non-numeric resul ts) [facility] TOTAL PROTEIN 6.4-8.2 Normal (applies to non-numeric re sults) [facility] ALBUMIN 3.5-5.0 Normal (applies to non-numeric resul ts) [facility] GLOBULIN 2.6-3.2 Above high normal [facility] A/G RATIO 1.1-1.8 Below low normal [facility] BILI, TOTAL 0.1-1.1 Normal (applies to non-numeric resu lts) [facility] AST 15-37 Normal (applies to non-numeric results) [facility] ALT 15-60 Normal (applies to non-numeric results) [facility] ALK PHOS 39-117 Normal (applies to non-numeric resul ts) [facility] ID Date Data Source [id number] 10/29/2020 07:11:00 AM EDT [facility] Release to patient->ImmediateUnit Collec t Name Value Range Interpretation Code Description Data Fabiola rce(s) Supporting Document(s) CHOLESTEROL 50-180 Normal (applies to non-numeric resu lts) [facility] TRIGLYCERIDES 30-150 Normal (applies to non-numeric re sults) [facility] HDL CHOLESTEROL 40-60 Normal (applies to non-numeric results) [facility] HDL levels are inversely related to the incidence of coronaryheart disease (CHD).HDL less than 40 mg/dL.........Increased risk for CHDHDL greater than 59 mg/dL.......Negative risk for CHD non-HDL-C 95-160 Below low normal [facility] CHOL/HDL RATIO [facility] CHD CHOL/HDL RATIORisk Group Men Women Lowest <3.8 <2.9Low 3.8-4.7 2.9-3.6Moderate 4.8- 5.9 3.7-4.6High >5.9 >4.6 LDL (calc) 30-100 Normal (applies to non-numeric resul ts) [facility] ID Date Data Source [id number] 10/29/2020 07:11:00 AM EDT [facility] Release to patient->ImmediateUnit Collec t Name Value Range Interpretation Code Description Data Fabiola rce(s) Supporting Document(s) FOLATE 5.9-23.3 Normal (applies to non-numeric resul ts) [facility] ID Date Data Source [id number] 10/29/2020 07:11:00 AM EDT [facility] Release to patient->ImmediateUnit Collec t Name Value Range Interpretation Code Description Data Fabiola rce(s) Supporting Document(s) VIT B12 211-911 Normal (applies to non-numeric resul ts) [facility] ID Date Data Source [id number] 10/29/2020 06:21:00 AM EDT [facility] Release to patient->ImmediateUnit Collec t Name Value Range Interpretation Code Description Data Fabiola rce(s) Supporting Document(s) WBC 4.7-10.6 Normal (applies to non-numeric resul ts) [facility] RBC 4.69-6.09 Below low normal [facility] HGB 13.8-17.9 Below low normal [facility] HCT 43-51 Below low normal [facility] MCV 80-97 Normal (applies to non-numeric results) [facility] MCH 26.6-30.7 Normal (applies to non-numeric resul ts) [facility] MCHC 31.8-34.9 Normal (applies to non-numeric resul ts) [facility] RDW 12.9-16.0 Normal (applies to non-numeric resul ts) [facility] PLATELET COUNT 142-414 Normal (applies to non-numeric r esults) [facility] MPV 8.9-12.3 Normal (applies to non-numeric resul ts) [facility] ID Date Data Source [id number] 10/29/2020 02:09:58 AM EDT [facility] PATIENT INFORMATIONPatient MRN Name Date of [id number] Jose L Lam 1970 50 y.o. Weight Gender PT Class 66.7 kg M Psych InptPT Location Admission Date/Time Visit ID Attending [id number] 10/28/20 1613 --- Eric Michel DO([id number]) EPI ID CSN Admitting Provider [id number] Eric Michel DO([id number])Date: 10/29/2020Name: Jose L WalkergMRN: [id number]: 1970Admit Date: 10/28/2020ttending Provider: Eirc Michel DOPrimary Care Physician: No primary care provider on file.Admitting Diagnosis: Mood disorder (CMS HCC Code) [F39]Chief Complaint:Chief ComplaintPatient presents with Psychiatric EvaluationThis visit was conducted by video.20 min spent with patient, of which greater than 50% of visit spent counselingpatientMilton Heather rivera is giving verbal consent to engage in telemedicine with Jaylyn VILLELA) during the current state of emergency related to COVID 19. Bertha has been informed that this consent is for the duration of the COVID19 State of Emergency and written consent will need to be obtained thereafter.This 50 y.o., male was referred to me for consultation by psychiatry regardingmedical management .History of present illness:HPI: 50 yo male pmh: dm-2, paranoid schizophreniaPast medical history:Past Medical History:Diagnosis Date Depression Diabetes mellitus (CMS HCC Code) Schizo affective schizophrenia (C MS HCC Code)Past surgical history:History reviewed. No pertinent surgical history.Social History:Social HistorySocioeconomic History Marital status: Significant Other Spouse name: Not on file Number of children: Not on file Years of education: Not on file Highest education level: Not on fileOccupational History Not on fileTobacco Use Smoking status: Current Every Day Smoker Types: CigarettesSubstance and Sexual Activity Alcohol use: Not Currently Drug use: Not Currently Sexual activity: Not on fileOther Topics Concern Not on fileSocial History Narrative Not on fileSocial Determinants of HealthFinancial Resource Strain: Difficulty of Paying Living Expenses:Food Insecurity: Worried About Running Out of Food in the Last Year: Ran Out of Food in the Last Year:Transportation Needs: Lack of Transportation (Medical): Lack of Transportation (Non-Medical):Physical Activity: Days of Exercise per Week: Minutes of Exercise per Session:Stress: Feeling of Stress :Social Connections: Frequency of Communication with Friends and Family: Frequency of Social Gatherings with Friends and Family: Attends Jewish Services: Active Member of Clubs or Organizations: Attends Club or Organization Meetings: Marital Status:Intimate Partner Violence: Fear of Current or Ex-Partner: Emotionally Abused: Physically Abused: Sexually Abused:Family History:History reviewed. No pertinent family history.Allergies:AllergiesAllergen Reactions Risperdal [Risperidone] Unknown Client unable to describe reactionsHome Medications:Prior to Admission medicationsMedication Sig Start Date End Date Taking? Authorizing Providerbenztropine 1 MG Oral tablet Take 1 mg by mouth 2 (two) times daily. Jeremy Alfaro MDergocalciferol 50,000 unit Oral capsule Take 50,000 Units by mouth once a week.Yes Jeremy Howard MDgabapentin 800 MG Oral tablet Take 800 mg by mouth 3 (three) times daily. Jeremy Alfaro MDhaloperidoL 10 MG Oral tablet Take 10 mg by mouth 2 (two) times daily. Jeremy Alfaro MDinsulin lispro 100 unit/mL SubQ injection Inject into the skin 3 (three) timesdaily before meals. Yes ProviderJeremy MDmeloxicam 15 MG Oral tablet Take 15 mg by mouth daily. Yes ProviderJeremy MDQUEtiapine 400 MG Oral 24 hr EXT REL tab Take 400 mg by mouth at bedtime. YesJeremy Howard MDCurrent Medications:Current Facility-Administered MedicationsMedication Dose Route Frequency Provider Last Rate Last Admin acetaminophen (TYLENOL) tablet 650 mg 650 mg Oral Q4H PRN Eric Michel DO aluminum-magnesium hydroxide-simethicone (MAALOX, MYLANTA) 200-200-20 mg/5 mLsuspension 30 mL 30 mL Oral Q4H PRN Eric Michel DO benztropine (COGENTIN) tablet 1 mg 1 mg Oral Daily Eric Michel DO dextrose 50% in water (D50w) syringe 25 mL 12.5 g Intravenous PRN Catherine Gregg MD Or glucagon (human recombinant) (GlucaGEN) injection 1 mg 1 mg Intramuscular PRNACatherine reeder MD haloperidoL (HALDOL) tablet 10 mg 10 mg Oral BID Eric Michel DO 10 mg at10/28/20 184 LORazepam (ATIVAN) tablet 2 mg 2 mg Oral Q4H PRN Eric Michel DO And haloperidoL (HALDOL) tablet 5 mg 5 mg Oral Q4H PRN Eric Michel DO LORazepam (ATIVAN) injection 2 mg 2 mg Intramuscular Q4H PRN Eric Michel DO And haloperidol lactate (HALDOL) injection 5 mg 5 mg Intramuscular Q4H PRN Eric Michel DO insulin glargine (LANTUS) injection 10 Units 10 Units Subcutaneous BID Catherine Gregg MD 10 Units at 10/28/202138 insulin lispro (HumaLOG,ADMELOG) injection 2-10 Units 2-10 Units SubcutaneousTID AC Catherine Gregg MD 8 Units at 10/28/202136 lisinopriL (PRINIVIL,ZESTRIL) tablet 2.5 mg 2.5 mg Oral Daily Catherine Gregg MD magnesium hydroxide (MILK OF MAGNESIA) 400 mg/5 mL suspension 30 mL 30 mLOral Daily PRN Eric Michel DO metFORMIN (GLUCOPHAGE) tablet 500 mg 500 mg Oral Daily with breakfast Catherine Gregg MD nicotine polacrilex (NICORETTE) gum 2 mg 2 mg Oral Q2H PRN Eric Michel DO traZODone (DESYREL) tablet 50 mg 50 mg Oral Bedtime PRN Eric Michel, DOCode Status: Full CodeReview of systems:Review of SystemsConstitutional: Negative.HENT: Negative.Respiratory: Negative.Cardiovascular: Negative.Gastrointestinal: Negative.Genitourinary: Negative.Musculoskeletal: Negative.Skin: Negative.Neurological: Negative.Endo/Heme/Allergies: Negative.Psychiatric/Behavioral: Positive for depression. The patient is nervous/anxious.All other systems reviewed and are negative.Physical Exam: H&P reviewed with the following additions:Physical ExamVitals and nursing note reviewed.Constitutional: Appearance: He is well- developed.HENT: Head: Normocephalic and atraumatic. Right Ear: External ear normal. Left Ear: External ear normal. Nose: Nose normal.Cardiovascular: Heart sounds: Normal heart sounds.Pulmonary: Effort: Pulmonary effort is normal.Musculoskeletal: Cervical back: Neck supple.Neurological: Mental Status: He is alert and oriented to person, place, and time.Psychiatric: Comments: Mood anxious/affect appropriateLabs: pendingImpression and Recommendations:Paranoid schizophrenia>admitted to inpatient psychiatric unit: please review psychiatric documentationfor further detailsDm-2>sub-optimal control>start lantus 10 units subcutaneous bid>low dose SSI>metformin 500 mg po daily>lisinopril 2.5 mg po daily (judie protection)H/o hep C>viral load pendingDisposition>Patient's labs/vitals/medical record reviewed: medically stable for inpatientpsychiatric careCatherine Gregg MD Name Value Range Interpretation Code Description Data Fabiola rce(s) Supporting Document(s) ID Date Data Source [id number] 10/28/2020 09:43:00 PM EDT [facility] Name Value Range Interpretation Code Description Data Fabiola rce(s) Supporting Document(s) GLUCOSE,METER 65-100 [facility] Date Data Source [id number] 10/28/2020 05:57:00 PM EDT [facility] Name Value Range Interpretation Code Description Data Fabiola rce(s) Supporting Document(s) GLUCOSE,METER 65-100 Above high normal [facility] ID Date Data Source [id number] 10/28/2020 05:32:23 PM EDT [facility] PATIENT INFORMATIONPatient MRN Name Date of [id number] Jose L Lam 1970 50 y.o. Weight Gender PT Class 63.5 kg M CPEPPT Location Admission Date/Time Visit ID Attending [id number] 10/28/20 1613 --- Eric Michel DO([id number]) EPI ID CSN Admitting Provider [id number] ---[facility] EMERGENCY DEPTHistoryChief ComplaintPatient presents with Psychiatric EvaluationPatient is a 50-year-old male with a past medical history of schizophrenia andsubstance abuse who presented to [facility] with paranoia, callingthe police roughly 6 times he felt someone was coming into his room to kill him.Says he was hearing some auditory hallucinations. He apparently also madestatements to the staff there that he was feeling suicidal. Patient is positivefor amphetamines as well as cocaine. Past suicidal ideation and attempts.Patient is a poor historianMental Health ProblemPresenting symptoms: hallucinations and suicidal thoughtsDegree of incapacity (severity): ModerateOnset quality: Unable to specifyTiming: Unable to specifyProgression: Unable to specifyChronicity: RecurrentContext: drug abuseTreatment compliance: Unable to specifyRelieved by: NothingWorsened by: NothingIneffective treatments: None triedAssociated symptoms: no abdominal pain, no chest pain and no headachesRisk factors: hx of mental illness and hx of suicide attempt sHistory reviewed. No pertinent past medical history.History reviewed. No pertinent surgical history.History reviewed. No pertinent family history.Social HistoryTobacco Use Smoking status: Not on fileSubstance Use Topics Alcohol use: Not on file Drug use: Not on fileSexual ActivitySubstance and Sexual ActivitySexual Activity Not on fileReview of SystemsRespiratory: Negative for chest tightness and shortness of breath.Cardiovascular: Negative for chest pain.Gastrointestinal: Negative for abdominal pain.Neurological: Negative for syncope and headaches.Psychiatric/Behavioral: Positive for hallucinations and suicidal ideas.All other systems reviewed and are negative.Physical ExamVitals: 10/28/20 1615BP: 92/61Pulse: 97Resp: 18Temp: 36.5 C (97.7 F)SpO2: 100%Weight: 63.5 kg (140 lb)Height: 1.626 m (5' 4")Physical ExamVitals and nursing note reviewed.Constitutional: General: He is not in acute distress. Appearance: Normal appearance. He is normal weight. He is not ill-appearing,toxic-appearing or diaphoretic.HENT: Head: Normocephalic and atraumatic. Nose: Nose normal. Mouth/Throat: Mouth: Mucous membranes are moist.Eyes: Extraocular Movements: Extraocular movements intact. Pupils: Pupils are equal, round, and reactive to light.Cardiovascular: Rate and Rhythm: Normal rate and regular rhythm. Pulses: Normal pulses.Pulmonary: Effort: Pulmonary effort is normal.Abdominal: General: Abdomen is flat. Bowel sounds are normal. Palpations: Abdomen is soft.Musculoskeletal: General: No swelling or signs of injury. Normal range of motion. Cervical back: Normal range of motion and neck supple.Skin: General: Skin is warm. Capillary Refill: Capillary refill takes less than 2 seconds. Coloration: Skin is not jaundiced or pale.Neurological: General: No focal deficit present. Mental Status: He is alert and oriented to person, place, and time. Mentalstatus is at baseline. Cranial Nerves: No cranial nerve deficit. Motor: No weakness. Gait: Gait normal.Psychiatric: Attention and Perception: Attention normal. Mood and Affect: Affect is flat. Speech: Speech is delayed. Behavior: Behavior is withdrawn. Behavior is cooperative. Thought Content: Thought content does not include homicidal or suicidalideation.ED ProceduresProceduresED CourseDifferential diagnosis: Substance-induced mood disorder, suicidal ideation,homicidal ideation, delusional, electrolyte abnormality, drug abuse, alcoholabuseGeneral review: Laboratory data were reviewed and interpreted and theinformation was used to make clinical decisions.Independent review: EKGPrior records: Reviewed and summarized past medical records.Records summary: [facility] wasnegative, the rest of his labs other than his tox screen being positive foramphetamines and cocaine was negativeED course details: Patient is afebrile, nontoxic-appearing and hemodynamicallystable. [facility] an acute psychosis, paranoid behavior as well as suicidal ideation.Had a full work-up there was medically cleared. Upon my exam the patient iscooperative he is calm he is slightly withdrawn. He has no focal neurologicaldeficits. The rest of his exam is unremarkable. He is medically cleared.Consulted psychiatry please see their note for further detail. Patient was calmand cooperative while in the emergency department. He will be admitted topsychiatry for further work-up and treatment.ED AttestationAttLan Cornelio Hull, DO10/28/20 1732 Name Value Range Interpretation Code Description Data Fabiola rce(s) Supporting Document(s) ID Date Data Source [id number] 10/27/2020 11:29:00 PM EDT [facility] Name Value Range Interpretation Code Description Data Fabiola rce(s) Supporting Document(s) SARS coronavirus 2 RNA [Presence] in Res piratory specimen by WILEY with probe detection NEGATIVE [facility] This lab was ordered by [facility] a nd reported by [facility]. ID Date Data Source [id number] 10/01/2020 01:21:00 PM EDT [facility] Name Value Range Interpretation Code Description Data Fabiola rce(s) Supporting Document(s) SARS coronavirus 2 RNA [Presence] in Res piratory specimen by WILEY with probe detection NEGATIVE [facility] This lab was ordered by [facility] a nd reported by [facility]. ID Date Data Source [id number] 09/06/2020 01:55:30 PM EST [facility] Name Value Range Interpretation Code Description Data Fabiola rce(s) Supporting Document(s) Progress Notes [facility] JEACZj2iPcNBDuJy29/FPKqdYVWcp5MqBOfxIZz1LTydJZFnI7DrFIH5uP9nNPZ8LDtEWiEjJpTnDqCh [facility] [file] L7PKO3zGTrAk5JZzO2VLhICmCdDQ2LXUg= ID Date Data Source [id number] 09/06/2020 11:39:00 AM EST [facility] Name Value Range Interpretation Code Description Data Fabiola rce(s) Supporting Document(s) Glucose, Fingerstick 287 mg/dl 70-110 Above high normal [facility] The above 1 analytes were performed by [facility] [address],[facility]#: [id number],[place] [address] ID Date Data Source [id number] 09/06/2020 11:33:24 AM EST [facility] Name Value Range Interpretation Code Description Data Fabiola rce(s) Supporting Document(s) Discharge Summary [facility] RKJNJj9qXoFTXzIa97/EQQclZVMtd6DpNPalPQa8LWphOQJfQ5VlRNM2vY0cLHA8SLgMJhCaRzToJeGi lbm [file] ICAgICAgICAgICAgICAgICAgICAgICAgICAgICAgIC RmPNGwGWLyFHTsAYMiLXHvQWFqIEIfBKYcLBVhDNKbRWJvVVOcVASzIVGaZEAvPNZgJQCySIEyZI0LOL AgICAgICAgICAgICAgICAgICAgICAgICAgICAgICAgICAgICAgICAgICAgICAgICAgICAgICAgICAgIC AgICAgICAgICAgICAgICAgICAgICAgICAgICAgICAg TICmTLQyAD8NBHTjZOLlJSBdWSRnYNJxBZQtSGBnAXXxVODvDLXwLBGqUFEiPUSdQHMgMTJfBIGyIESl JRXqLKLiYNTrGGPyEKOqPZCnDZMzIVQqGPLaUFHtDBWsMFKuFYYrSMPxTYKmFOLlDI9TQHFeGEWfLZAx ICAgICAgICAgICAgICAgICAgICAgICAgICAgICAgIC AgICAgICAgICAgICAgICAgICAgICAgICAgICAgICAgICAgICAgICAgICAgICAgICAgICAgICAgICAgIA 0KICAgICAgICAgICAgICAgICAgICAgICAgICAgICAgICAgICAgICAgICAgICAgICAgICAgICAgICAgIC AgICAgICAgICAgICAgICAgICAgICAgICAgICAgICAg WDNqFFLmMZAkGI9JCKYbFGHnPGJlVEOiAKDhJNMjYJXvWVUpEFLaDFLkAXBcGKRfVFJdKUVmINTaTETz BUGpETGnDIReAYKgSJUsFHVhEYQfZAVsPRLkBYEkFFAfGAAgQHJaIRDgCXDrGAZpQEKdZG9RRNDmTUSe ICAgICAgICAgICAgICAgICAgICAgICAgICAgICAgIC AgICAgICAgICAgICAgICAgICAgICAgICAgICAgICAgICAgICAgICAgICAgICAgICAgICAgICAgICAgIC NhXP6OMQEiLGPwKJBkYCSeMWNvATEtCAJyEKSgCZJpDPTtGTNyQMBgVTZkIDUaGPLvQFHwFOHmMOPsAO AgICAgICAgICAgICAgICAgICAgICAgICAgICAgICAg XAPaQVYjJQEuNWHrVT2AXUYtLTHeJINcJZJzWUKoDKPwSRScKSKhDBWiITAbHHNeZLPoOJQvDFPtZAFk YLJeVWYyIXIzTZIdXTYjXLQgYSLnXFEdDLNgQFZgQQOcBFZnQDGyXBFuGTHwEGDpISGkXHDcFF2KJC45 nRBmf8R0ZIKuQE9paho/Tv7KLQhgapFptGEaRM5VTw HfUK8vob2PSiLaUY2mfn9PWIuLBjQsR3Z1bIRbXBYdQSPQJmMmB56oSJmxBd88SSvkCZOtYrWwFLs8Pi 6QLtUlE9rqPFLcDlF6IJFmWcJ9JXRiFvNvWIvbRD1Qq6IazLIqULn+My0BRP4ja1TpRCfbYxVuGI7owl 1RZQuCQuCzG5JfcgO4MCQcTIQmWz6FPQLsJOIjrFGi JiDaVEFNExVdR0TcrG78TYVRUa4+ODgpqbOrAarCBtBwEKWox1GhRPo4SZ3MONAbPJk7oFTvXScdI8za oowgACC6iJ3ngkzjAmimD3JdtVOqZWpoo1Lyu3BydUHrPYeaFTZzIGCxWw6xEC5iSJYvIQZnIvLuFJCN AJ3PONTmNMQbaRTmXOMlSKUJST4UYOvwYSM0Nmdqxk JovXYgAXjqBW3DYQSaaoUhKzKiXBGASXg+Na7BTS3uc7LmCMvmAFWyZE7nfp3XXOtJUsZyV2W3eCQbW5 N9RUecSr8PRDAtNRZuKcHpLACKKPoaCL5SWR4zdqH2EK6YjAHyTFHrFFBanPJzIMq8B83jiERsZRqaPM 0KICA+Anais+Cm9QMZTuJMLqRWWbMzRbPEGRSmNjE9Li O0AVl3HtP7DwLS31zCrqwuIoGNysKE2QAB9qORMmZEVMOG7JsQDfzJ5ojfQiVaMoPJBLKrEiF70piLEp JVGaGVVuKTMsFc0KQGFuL8GrwdOseGwqlxQqYFKoVTDQUX1EDFqojlLcgVOkxCskSA91tXofSL8KVa4R SyZkUU3czw7WoVJeYo6OAAMsLN3DNHTqEHXfWVVpIL W0TXVzLoMuFXzgKKWoQHKsEZO8UWCrQAHdQP9CKdXkBQUmRQIlFKwtWOCyMISujj9EDNXiACDoMGv7Gg UeCSTbTROyFZsaEGKdATXhXLU2ZGTkNEDrDS7OKfPkPPKvTBYvTJHaGFIqPMSqah9FOMOrWYBoKvL2IL HtRZKdBAHbDKgdHQQgCZF1DmL6HXOcMOJtBL7VLtUl DRNuNIF5ZSEyJVZoNSKujj0OBIUjMOCcVFa0BOEcJGEjWXDzWFbeFOHyNDL1HIF9TFNyECBpPP9DNtBh DIDpFFJqWRLmZXTkCLEzyh2NMXVmKNEcEcLsGLHrRESeVTIoCVszWYXgGMG1CxWdGMSeHXCsDQ5LYvXj DGTbBMk8XYSrIOFlVLZjcl2FRJSjDMChCBV8HTJtLA DhTGVqENgqDNWnKJJ3UvBxWCMnECAwBH8NLtXmILTmBNy8KVPuBAPvVQLwsb6LGHNgRXHgDSicYZNrFK RwOPHuRSzrKIIwUNOkYVLfOCKtHJBtBL2VBlIuBOLiORTbUCTvYXCqOGHxll7TJQYdMEHrFZNaVgFjPL XpIPFzMXsfTNRrVHPfUQlmUMYgKOYsUZ9SQdEaBIJd KZHrCHHhJMFvCBDawv3DAENhVCHxShXnQOJmUBMsPGMyUTz2poRsnGTvVTk0LJ8HQ5HtitPfHqEUKr6J t088SAC9LVEoKo8RY2ybLw6oVDEoTJLQYo6UZJc8JMAsFxs8ZLx3U9RrPPDiTIL4SXZqVYr3NIE3TuUb ZGM+QZuyDBKvJgs3Llr1I7X6MpF3PsvvOhJ4KMo3SC zpNcCnNx1eTKFLNc4+FKqfePPgpElhBKOWSuVaDBIzCLquHCADZx7P ID Date Data Source [id number] 09/06/2020 10:44:53 AM EST [facility] Name Value Range Interpretation Code Description Data Fabiola rce(s) Supporting Document(s) Nursing Note [facility] WMCYMr9tAwXVIoZh40/CVMagYWQsp9DhMPwtQMg6XBxxQNKuI0QbTWR2tS7dZLF1USsPCfRtPqEyKaGv lbm [file] M4Njc+QF2hEWh+Nw7Xo0SjxaB6xmQfSGqvWJd4UO4SLBQQG7UFRs== ID Date Data Source [id number] 09/06/2020 09:42:05 AM [facility] Patient: JOSE L LAM : 9 PACS [facility]Procedure: XR FOOT 1-2 VIEWS BILATERAL Provider: ROYAL Alonzoateral foot x-rayHISTORY plantar pain while standing for 3 days.2 views of each foot performed.FINDINGS: Alignment is intact. No fracture or dislocation is seen. Nosignificant arthritic changes seen.IMPRESSION: Unremarkable bilateral foot x- ray.Electronically Signed by Dr German Martinez MD 09/06/2020 9:42 AM Name Value Range Interpretation Code Description Data Fabiola rce(s) Supporting Document(s) ID Date Data Source [id number] 09/06/2020 07:57:00 AM [facility] Name Value Range Interpretation Code Description Data Fabiola rce(s) Supporting Document(s) Glucose, Fingerstick 179 mg/dl 70-110 Above high normal [facility] The above 1 analytes were performed by [facility] [id number][facility] [address] ID Date Data Source [id number] 09/06/2020 05:45:55 AM [facility] Name Value Range Interpretation Code Description Data Fabiola rce(s) Supporting Document(s) Nursing Note [facility] OQSCCg0sNqLZRaAs39/KRQpiUIPtu2OtOWbhJEt5LLrtNVFbL6UqTBQ8fQ0gKZV7GEsOVmEjBxTeQpGw lbm [file] B3EbGZCuFnKB3SYNv= ID Date Data Source [id number] 09/06/2020 02:38:48 AM EST [facility] Name Value Range Interpretation Code Description Data Fabiola rce(s) Supporting Document(s) Progress Notes [facility] HOHHTe6jVzSLVzKb59/TDRvnAIQun6XmKPkgNHv6XBmrDNHjQ9VpGIG2sA4dCLS3FLpXLtUuDkAyPcKm lbm YiKczYBuErGOGbIjvARtNeBEjqKludiARsTL1FdRU9WIFjB73nGRFyVFStQ7AkCROwMBU+Ch7DYQSglS VwMQ1VVskJ8TwIo3bINC7N0A+ZMrAA5p3OSU52V0ljNVryvXk9cGdbMrNyuLORhuz+sZwADW9i21tl2m LBZQ2vNIN6s28m2B4bnnhiN8XtS1vrqo/dk7kJwmpw +kHb0gZSp1/Jm3JP3NCRBjIZL5SEYH/5psZyjK9LGoPmbreik7xa8mCXYYhMK7yQUgWyaH9cPPsaJPUq xJlWNsbhxZyPCVXXSvSlSFbe2JFmWS5FU+6j6cJR3sFP5grUvO5NUJJowkZnFmXXUjfqdqQBgPjURc3I nAsE92TvEB4g2I355W1rwWqAYN0gCKI+3R/RhwUsLk SWvQJVsTYj4WdfcPHa4mbkNHyNUwwqZlRfO+aHflid8U+KzFXD6LLIi4YG08ERaK6tx9yBIDAuwmw3wk yWAJPYhUIgAQ1zMR5ceg1ld0vD7hWSt5LyegNmTYUu9vOBVZ6iRWs3GKjpPPzbuOjnToutSpC2x4z6Bw Z41tDmQVpVyjzZdU8l66Bmq6e7NVlTvDC2b0H7EBpi eHHxfv5E+BTVa3ss/O9DaPCfPIZUC0/4gzRQFFrbR/GnR1ZHFz3ZfGXsbwx03gMjxKGtcn0snApNhOBG Ni41SC0qviMJ9IU/Tl8haem9wjQK3wWnS3aaJo+obJ9sqZOWLfX7Ld32OZ/IyTqurPxsdpV6ijjZxBTy zgTGf+debbie/Wwelg/2gaCfMGf5CYxrphpG0iH8w1Wqe [file] BDI3ZDtxDHQTPq2A ID Date Data Source [id number] 09/05/2020 08:22:27 PM EST [facility] Name Value Range Interpretation Code Description Data Fabiola rce(s) Supporting Document(s) Nursing Note [facility] HMOYEk3pLgVXMcFa71/OGIplNBFcq0AzDNbdAWn0ZVrjVGRdZ2GgOJW6zU6cDEI1EBtWIkGtLeSrFuTu lbm [file] 4MGvT9JFF7bUDmEg9YRkBhFIJTEhKrNP2NAYj= ID Date Data Source [id number] 09/05/2020 07:47:00 PM EST [facility] Name Value Range Interpretation Code Description Data Fabiola rce(s) Supporting Document(s) Glucose, Fingerstick 225 mg/dl 70-110 Above high normal [facility] The above 1 analytes were performed by [facility] [id number] [place] [address],[facility]#: [id number],[place] [address] ID Date Data Source [id number] 09/05/2020 05:04:11 PM EST [facility] Name Value Range Interpretation Code Description Data Fabiola rce(s) Supporting Document(s) Care Plan [facility] WLYHPn6uTcVYSsHq60/VTWamUJNct6ItSGmhHYp2XHgoDDAwV8LeDGR3cU9hYMG3POkFVwGoQzLiGvYx lbm [file] 3bAPRGYi3+SQafbLSddLzvXSZHKlE4ZrReXGxuBBUDMh7U ID Date Data Source [id number] 09/05/2020 04:56:00 PM EST [facility] Name Value Range Interpretation Code Description Data Fabiola rce(s) Supporting Document(s) Glucose, Fingerstick 158 mg/dl 70-110 Above high normal [facility] The above 1 analytes were performed by [facility] [id number] [place] [address],[facility] [id number][facility] [address] ID Date Data Source [id number] 09/05/2020 03:08:32 PM EST [facility] Name Value Range Interpretation Code Description Data Fabiola rce(s) Supporting Document(s) Progress Notes [facility] AUYOPo2sZiZGFuYc46/UMIpqHFUby2XcEGdaRLc3UAdsECRhB6TiITK2jL2pBMA9UMpIWaZoNqTkIuJs lbm [file] NHOhEXXjGCAdWM3yDBDETc9+LUukdGJhaVziTGQIFrD9ZZggDXueGHAZDm0S ID Date Data Source [id number] 09/05/2020 11:32:00 AM EST [facility] Name Value Range Interpretation Code Description Data Fabiola rce(s) Supporting Document(s) Glucose, Fingerstick 419 mg/dl 70-110 Above high normal [facility] The above 1 analytes were performed by [facility] [id number] [place] [address]#: [id number],[place] [address] ID Date Data Source [id number] 09/05/2020 10:57:11 AM EST [facility] Name Value Range Interpretation Code Description Data Fabiola rce(s) Supporting Document(s) Progress Notes [facility] KCVVLp4wPaJUDfCs17/SZVjxFJLio1UmYUbzQJt1HOxfGTGgI3ArEKF1gU0uZBS9SKqKPgAuQtXyYfEg lbm [file] Jh1Kw4PxicE7kqDtKSl3PBOsBGmwKINATm7L ID Date Data Source [id number] 09/05/2020 07:48:00 AM EST [facility] Name Value Range Interpretation Code Description Data Fabiola rce(s) Supporting Document(s) Glucose, Fingerstick 187 mg/dl 70-110 Above high normal [facility] The above 1 analytes were performed by [facility] [id number] [place] [address]#: [id number],[place] [address] ID Date Data Source [id number] 09/05/2020 05:28:33 AM EST [facility] Name Value Range Interpretation Code Description Data Fabiola rce(s) Supporting Document(s) Nursing Note [facility] PRSQDc2fHzVCXsKs15/WKAejCBImx7IlMRzuGWu3PKiiAJUyP5TpLIN3jS3vQOD4JXaDMuHoCzXkOmFq lbm [file] YEX0IMQb== ID Date Data Source [id number] 09/05/2020 02:00:21 AM EST [facility] Name Value Range Interpretation Code Description Data Fabiloa rce(s) Supporting Document(s) Nursing Note [facility] VWLGEw1gXwNVZxRl92/COHypGHAsr4ZxGXdqUPo3HRffQPQmC1QnVBR1xE8tMWX8JMjXMaUdQpQxZnQt lbm [file] ID Date Data Source [id number] 09/05/2020 01:57:41 AM EST [facility] Name Value Range Interpretation Code Description Data Fabiola rce(s) Supporting Document(s) Care Plan [facility] ZZCVEx8uQyZMUnRb57/QLNaxYJHnu1CcABirNVv2IGzfQKDoD3RyKIX0rH2wAUC1EGfZUaGlDgGvBcBw lbm [file] ICAgICAgICAgICAgICAgICAgICAgICAgICAgICAgICAgICAgICAgICAgICAgICAgICAgICAgICAgICAg ZORfBPHhSFUsRKLvBWDmELLjJKThJMBeYNKeGQ2BBZCbAVUxZFLfXOCzCXByFLKaZSSaKWVxBVVgDPFg ICAgICAgICAgICAgICAgICAgICAgICAgICAgICAgIC XbNPRcZRWnXHYnHMYfCQMwDJKsPCZlWZTfVFRbHOQbWTWeFFWtKK0KNIRoACAiKAOiIALmNXMdZNNiIC AgICAgICAgICAgICAgICAgICAgICAgICAgICAgICAgICAgICAgICAgICAgICAgICAgICAgICAgICAgIC HcNBFmFCVjVUDwJQCsJIJaWHRpNL9FOJFkMCTeSRBh ICAgICAgICAgICAgICAgICAgICAgICAgICAgICAgICAgICAgICAgICAgICAgICAgICAgICAgICAgICAg PZHnMWPgAXTzEYSkVFJzNYNjHONuNNRhBXGwVELeZE6ULJHjOSWsIJWrJWTuUXRtYIFtQOZxQMDhLCKl ICAgICAgICAgICAgICAgICAgICAgICAgICAgICAgIC EhRTAgWFIdVYYtANEkJHWrNRHkYIOnPLWsHLPhKTIdUKZvZCYeMEZiON3HFOAyTQQgPASnDUEsGOQaBA AgICAgICAgICAgICAgICAgICAgICAgICAgICAgICAgICAgICAgICAgICAgICAgICAgICAgICAgICAgIC LyTQWzTAHsNPRkHFBiZMTkASHmJWSfFL2FWVMrVJAb ICAgICAgICAgICAgICAgICAgICAgICAgICAgICAgICAgICAgICAgICAgICAgICAgICAgICAgICAgICAg HVOeVLYyXSJaPJXhTKHlMECiZDOvYGOiOCWmSMUyULLrEA3HRMIbKVPzXWLrZIXgDTBeJZYcBYMeHEFu ICAgICAgICAgICAgICAgICAgICAgICAgICAgICAgIC JkVZBkIMZqYPZuYLMjXDUcPZNqMSOtDESoUMAhMMBlURVaKSYrGNXpPSFkOM5ZSWKsFKIoAOHzTETaTB AgICAgICAgICAgICAgICAgICAgICAgICAgICAgICAgICAgICAgICAgICAgICAgICAgICAgICAgICAgIC OyFMIkTCKfYVKmTRXvEMUvQVClVXJvGFWlWU0KMGGq ICAgICAgICAgICAgICAgICAgICAgICAgICAgICAgICAgICAgICAgICAgICAgICAgICAgICAgICAgICAg GJPxKZYvNFOdZSYzTTGgPQLoSDEmVZLoPMHrJFRkSPMmYNEnBH0QVV12pXSxc6A2GEMdNG6cegs/Pg0K ZTehasGglJHbBY9MCxKdBV7vio2COoUhDT1kba8TBI aGVfDqA8C7jOMhMSSzCLPEMzWaO79rLAooJd15BCdzXXFzTzXxANj3Go4CYrLlN8zfVOEnNyY6XHDmVq OmVNceOR2Jf0QoiVQqTDn+Nh5JTS4no2AiQZydZvUrCO8rca1HRVmIPiCzS5BhmqQ8MQSeFFWwUh3IGM PsRHOnkANpUbUdAZVRJtVzY6UxuV03UDEBJg0+DQpl tuRjHhdFWuQkLHJyg7IaJOd1VF0KHCNxKJp2uYRjU6CmAAQRxSAtWCA0PKNifMjyONQqX5GlWOzeXt4l USOpQl7tEI5vBODjBYKbXoS0SKYTKW0DQSCkRFPdkJTrPUPuSZAUHL6RGBsbAVT1NsrpylVfkTSyOCdn AR7RAEXpeyVoVtCiOLGGJWa+Dk5KXR8gm9YhPXxhOD AaYO8plu9GRVtYXoAqH3R3sLJvR3J0LUkcNn0KWMTfSFScBjVxDQYFDUbpXV3LBK1rksO0XT5HwYHkRL KbQFCroWRrYGd8O91yoWSlGHtjDC2VYPZ+Anais+Dv9FZBCxDXQkDCPoNoWoZVJFLiGsN1BlV2SKh3RkP2 VdWV66mRuyhjKcWWegUJ5RCY2qXMHcIQQXFA1QtGLy wK3agiSlZnHsNVUWTtIwL65mrTIwQNClNUVcOUCgNe4PEJPcF4HpsaEqsCzmfkGfLMEjNMZQUZ9SVWcq stMhrESxdBumAR85eIpvFG2BEw1PPgEfSW9tsv3PlVIfZs9CAVIsGL1OIMEvZPXxQTGzLHM4YSGyEvUa QYfnQFAkSIGvATV6GTExMTJrON6FJzZzCLTlSYv9RK ZrTXJoTSYsfx1OYMLnLPFzQCZmJLDzJLPwONOrAAqwGVEiEYWlZLY4FRImYIEwSU8PXmAzDPGiADU6Qb cpLWMpZLUyvz4OYHDfFTGmIKM2VMKiKWUnFWFqMLveMPDeYBZwHUc3LGEdASShSV1WAaKfYQHyHUFsDR BoMIFzOKZulg5CUVMlDQSvFgR5CYLpXCEgVFLpNYys NWDgQFCrBIR5DKRuLGZaZY9NZjBzEOJpMVO1FKSlELGjUWLddk6GMQEdXAFhGsrwEqUiXDDwBIZuQIig CEFbWFX0AGozMWKfWBOhBT8ZEyOmZWCzHLL1FIofFIJlZZJasw7YBFPrRINeTeK4BmCjSKNfLEJqNDsx UXPcUZO6ZMM3TDEjKQNhWI6OJoVcPLNePOdxSVDsEG FgLXSdwy9MVGDxBRHgAGLvQVUyIYKhWVVvKHadIYDdDQO7LzGoCKDmGIWqFC0WFiCrAGInXPhmVEDkIJ UfCHRpqq2QJWHpZUDoOIx0PHBsCTSuVRLkXBexQKGbNGXnPjY0YOYdDNEgON1PTfAcOTPzJeVqWCbqYH TfVJLqtv2PHNSaGNTkCVG7NGJcOVDmGASmLAm1qxNy rPDgKVg6LU5JF2YtaaDwIyOFVz3Fn565GLV9WRPrRb8XT3soJh7dTHQkWFPLRk6AROs9VUUwXuK4CMTt I5KrBLWfFWPhOPK7PRj4XZZvOeW6DWW+YIq0RbTwYBg6IXZ8QeZgOQWdUOB3AEczAVb9KHUtXQWhSW7u XSANCj4+HZhvoMFnmGmiLDMYVfQjVyk3MHacUPCDWm7E ID Date Data Source [id number] 09/04/2020 07:54:00 PM EST [facility] Name Value Range Interpretation Code Description Data Fabiola rce(s) Supporting Document(s) Glucose, Fingerstick 277 mg/dl 70-110 Above high normal [facility] The above 1 analytes were performed by [facility] [id number] [place] [address],[facility]#: [id number],[place] [address] ID Date Data Source [id number] 09/04/2020 06:17:48 PM EST [facility] Name Value Range Interpretation Code Description Data Fabiola rce(s) Supporting Document(s) Nursing Note [facility] HMWNJm0rUkFIEwXf60/AYDstLPOsg3HiKPxzRJn5IHfhELEuX2UdUCH6xC9bWKI3PEhPQoZlIoGtBzZ2 lbm [file] ICAgICAgICAgICAgICAgICAgICAgICAgICAgICAgICAgICAgICAgICAgICAgICAgICAgICAgDQogICAg ICAgICAgICAgICAgICAgICAgICAgICAgICAgICAgIC AgICAgICAgICAgICAgICAgICAgICAgICAgICAgICAgICAgICAgICAgICAgICAgICAgICAgICAgICAgIC AgICAgDQogICAgICAgICAgICAgICAgICAgICAgICAgICAgICAgICAgICAgICAgICAgICAgICAgICAgIC AgICAgICAgICAgICAgICAgICAgICAgICAgICAgICAg ICAgICAgICAgICAgICAgDQogICAgICAgICAgICAgICAgICAgICAgICAgICAgICAgICAgICAgICAgICAg ICAgICAgICAgICAgICAgICAgICAgICAgICAgICAgICAgICAgICAgICAgICAgICAgICAgICAgICAgDQog ICAgICAgICAgICAgICAgICAgICAgICAgICAgICAgIC AgICAgICAgICAgICAgICAgICAgICAgICAgICAgICAgICAgICAgICAgICAgICAgICAgICAgICAgICAgIC AgICAgICAgDQogICAgICAgICAgICAgICAgICAgICAgICAgICAgICAgICAgICAgICAgICAgICAgICAgIC AgICAgICAgICAgICAgICAgICAgICAgICAgICAgICAg ICAgICAgICAgICAgICAgICAgDQogICAgICAgICAgICAgICAgICAgICAgICAgICAgICAgICAgICAgICAg ICAgICAgICAgICAgICAgICAgICAgICAgICAgICAgICAgICAgICAgICAgICAgICAgICAgICAgICAgICAg DQogICAgICAgICAgICAgICAgICAgICAgICAgICAgIC AgICAgICAgICAgICAgICAgICAgICAgICAgICAgICAgICAgICAgICAgICAgICAgICAgICAgICAgICAgIC AgICAgICAgICAgDQogICAgICAgICAgICAgICAgICAgICAgICAgICAgICAgICAgICAgICAgICAgICAgIC AgICAgICAgICAgICAgICAgICAgICAgICAgICAgICAg ICAgICAgICAgICAgICAgICAgICAgDQogICAgICAgICAgICAgICAgICAgICAgICAgICAgICAgICAgICAg ICAgICAgICAgICAgICAgICAgICAgICAgICAgICAgICAgICAgICAgICAgICAgICAgICAgICAgICAgICAg JXOeZNs3O5apKSDvCTSxQP9tWEe8Gz9+DQoNCmVuZH B4arBaiA8WUL5ur7YpGGllGCHts8JpTGx9XW3LIBRkEVcqFU6QHEbnqn3WNFStLKUorQCRe3jxCnUiXX O0FFXcFbthOP2DNKLuU4hhouIqWFYrOOEOJI2YRcDdR9QqgV78KCNTMi5+DQplbmRvYmoNCjIyIDAgb2 YlZDl1PK1EDPEtGxayj4XdTwCtGXGYTJsdEY6ROGN3 KQZcDRPeSi7ZKAKxF300siPyAR4PHb0YAbAnEC4zwf4ZTcLdITBkHycGQiq7PJojRC8VvSDyIRaAfFOn jI2cCC9unHJkRqmjNo2giKPhWE4ck7nhBXHRQLW9UNZlNA5oNMYhGAL1QxF9PKWZJM7BEQKdDCPkqYTv JGVfITQQNA2ZGZujUCY4KtaidbOooLObQFplZR0EZB JlbnQgMjIgMCBSDQo+Zt6ODI0ok1KaWObbQNLsAX0ecj1MVScRNmSbE1O9gTPfN4U6RFelJv2IRKIkLH QwZnNtDRGTOMugSK2HFB3eeaR2OW7ZuCAlXZQgQILuwJCxNCv0J11ggSDkXGatWZ7RICY+Anais+Pg0KIC ApOWNsNIHkGfDsRAHAKuIlD2MaI7IRd5QwJ3BnBT27 dDnyqvDhHHvuKM9EVS7gMPXeBNPKYS4VrOSwrF0xsfPkGyHlQITYHuRuG94ocEMaRZJkJANaTRKsRb4Q NSHsY3WjjoKezZzgxrBjIAIfASDFTH5JDLzsywBecFQfkSzuUK96qVsgJZ0ANk6CRxIlUJ6xit1ClOWf At3HVGZsKS7KEJZlCGUmEZKgTBB8FKHzArFlOTcmWS EhRPQgOPU2CEFsLJMwUA5KMyPgKJQyCSj2CkVoKJUyYFJuvy5UUXFhZNQzCQL2AXEwOJJuSXChMTusHL CzKFNnUAS0CUIyUYEbEE0RRmWcUBAlODC3BcYoKINsAQLqpr6ARMGuCNKkUUV3AqLdDLXsRRVwKSrgLP KgCXTrUZC8ESWqFAVnUZ2KCiAhXHHvXJTbKrEeSCYx QWRnii4FQUJgCEAtRlOmKIOsWJQdLGNmSZgaGFHcCMRkMRczDOFvJDQpZL6QLlUjLPUwVLS0PcivFNQt WAZmxe0FQFBnKDHkAuz0OWMbJQDzJAGmJCdhYHEqZPC9XDp5FIQiGRKlJL6WWqVfLXXvWOF9QULnAPKm TDPxwx8WFYSlRGJuYxsgDnYpIULqPHEcLSdrZTGxON Y5CKUbTKOfRGWtMR7XFxVeVBKoPRelHVfdTTNzHICjom1RTWVhYMCqTJV1HRWmUPUzOZDgGMwuUZPaVG S5VsT9HRMmNTEuQT2SSpWxNRKbQQl9KQerTIMaPGLulz6DRDLoYKNfCQxgWDDpYCVnBWJoURdkRCZkVN FxOmPhWYVpSTOyVW2QOzFoGJXnRhLoTnEaWMMdPXXb lz7LQLBbEHPwFEE8GlInCZGeSJDaPSx2jdTjpCWbRKw1GD8XQ1FiyoUoEwKXNy0Kp960ZYA3RDLnRp5Z G7tlKv8zRYYyKGCKPs9MTNy3OmujUlE4WrW0IUAvDrQtFBWgYuRzNhBmXPN6QNH2MUV+IDxjOWMyZTcy NiU4BJKcHuC6IIV8YXZmZwE1ObjkYnl8RW9gFTPTVe9+ZAtcsRZmaTzzSALXWpTbTuTtWGazHKNKEj4G ID Date Data Source [id number] 09/04/2020 04:52:00 PM EST [facility] Name Value Range Interpretation Code Description Data Fabiola rce(s) Supporting Document(s) Glucose, Fingerstick 133 mg/dl 70-110 Above high normal [facility] The above 1 analytes were performed by [facility] [id number] [place] [address]#: [id number],[place] [id number] ID Date Data Source [id number] 09/04/2020 03:10:10 PM EST [facility] Name Value Range Interpretation Code Description Data Fabiola rce(s) Supporting Document(s) Care Plan [facility] KEEONm6gWiZKLlXo02/AZYxzTDOjb2AsWDtzUOs9AUicVNVwL2WnXAX5cK4xKCG6PFwSAjQcPhHpSqN6 lbm [file] E+DQogICAgICAgICAgICAgICAgICAgICAgICAgICAgICAgICAgICAgICAgICAgICAgICAgICAgICAgIC AgICAgICAgICAgICAgICAgICAgICAgICAgICAgICAgICAgICAgICAgICAgDQogICAgICAgICAgICAgIC AgICAgICAgICAgICAgICAgICAgICAgICAgICAgICAg ICAgICAgICAgICAgICAgICAgICAgICAgICAgICAgICAgICAgICAgICAgICAgICAgICAgICAgDQogICAg ICAgICAgICAgICAgICAgICAgICAgICAgICAgICAgICAgICAgICAgICAgICAgICAgICAgICAgICAgICAg ICAgICAgICAgICAgICAgICAgICAgICAgICAgICAgIC AgICAgDQogICAgICAgICAgICAgICAgICAgICAgICAgICAgICAgICAgICAgICAgICAgICAgICAgICAgIC AgICAgICAgICAgICAgICAgICAgICAgICAgICAgICAgICAgICAgICAgICAgICAgDQogICAgICAgICAgIC AgICAgICAgICAgICAgICAgICAgICAgICAgICAgICAg ICAgICAgICAgICAgICAgICAgICAgICAgICAgICAgICAgICAgICAgICAgICAgICAgICAgICAgICAgDQog ICAgICAgICAgICAgICAgICAgICAgICAgICAgICAgICAgICAgICAgICAgICAgICAgICAgICAgICAgICAg ICAgICAgICAgICAgICAgICAgICAgICAgICAgICAgIC AgICAgICAgDQogICAgICAgICAgICAgICAgICAgICAgICAgICAgICAgICAgICAgICAgICAgICAgICAgIC AgICAgICAgICAgICAgICAgICAgICAgICAgICAgICAgICAgICAgICAgICAgICAgICAgDQogICAgICAgIC AgICAgICAgICAgICAgICAgICAgICAgICAgICAgICAg ICAgICAgICAgICAgICAgICAgICAgICAgICAgICAgICAgICAgICAgICAgICAgICAgICAgICAgICAgICAg DQogICAgICAgICAgICAgICAgICAgICAgICAgICAgICAgICAgICAgICAgICAgICAgICAgICAgICAgICAg ICAgICAgICAgICAgICAgICAgICAgICAgICAgICAgIC AgICAgICAgICAgDQogICAgICAgICAgICAgICAgICAgICAgICAgICAgICAgICAgICAgICAgICAgICAgIC GfXFZrVQCwKLGxZYFgITOeSMLcXVLaRIMqLXAoDSKySWMfKKZvRURaSYIqDJYjJDKaRGHwEIb3C1nzXY ElRXTnBO5jPFn2Ei3+KGbMXtOtNYU9bvPwtL2GBB5l c0HiKPveIZWwh8EpHJc9HK2CXBIyTIhlQY7FCUydee4COSDsMYBleLYVk7wrZjCdEAK7GEPmVvicGC2P EVUtE9dqvkGaLNVkFUMWRI0JKoYjB1GxvY26SDIFLx7+OVuswsOdHxyYClLdDCYxw8QfSIt0YP5JBTAn Vgtzo2DrHjLdFCTUNTomUV9VZCI7KRLuULSwIj8DXD DlK690gxOmMF8HMn2AVeMsDP2aes3UAuHmXSAcHpeNWwt4XKtrBT2XaQNeQPpHHIRqKCVdIP5sBliuFh 8veBKpDI6qp0agCUKQYMU9IGDgLU0bNSEiSIBsQuG4ZRCKPG6IMVDdKJRfzRSoBKYjUNLHGN4NNBgpGG P1MvaoogGfdGVuKIzuNL4DSKYemsNtNvHxHQLAPUj+ Ac5UHM4yn6GkQUdgYPMaTJ1neg0JGAdBHtYtD4P0pOKxC2Q5GDupTj7FBKTkJIZeAzPbLUSNQKtqRI4E YW7ydlS0FF1ShXIeYQDeAPRdtNOlCLm4U65qaEHeWRhyVB9OJAZ+Anais+Hu0LGABiZANeAOQxBiMyKLFD RmLwA9UbB0EHj5IoM3FkMK79iMzqmtAxJLgyUA8XXA 3dZVKxHARXJC6AwKUffD3jdnVfFbWiEHKKGsTeI42csUSkTLIjOYHzBRLaOl3ETEJdG6SimtGljZiiys XsLGDyRCSSEH3MIXzmyzUisQZuwTqnSZ99mIjjDX5HLd1OQeCqXF2dvp1MvWVcWh2CTQDmQR2INVCpFU KuCLZnHRH3TBWkNhYlJQgoVNKwHAVbXIW3MIQqPYWc SV6MAfGtJUPzAFqsEdxvCHNmQWHeqs2IIPLlNRScGFcsFsGlHIFiTJCmAZqyCMMfVANsWKY7TVViUFFq DP5UZdQrPBOoKFL1QSTbBIOgZTTmgg0YSVFlGKBoMUwlVERuVHBmUKKwQKqsUIIbOHFrCWtaARYxBYDb XU0XOfLpAHLuWKMsKjYkJSReHAMrfa0KDFGtOQCqXu A7YSMpXZGxTBIlWLbtIUOpYJD1BrS5YLAbXLYzZI3OFpYcIPRjATZ5UVTpBVKiDNUqes7APBGnXBJnOI B2XwKzZVRuOCKnIWabUMCjRYC7CTT7DUKmIMXtUZ5AEdOvOZLjXJzoOyMeNUObAVDikf2ZRQZwJZBuRi Q1YHNqLUEsLWNiNRozDRLmNVH7LyToNXHiNEInFJ3S VoArZTQcOYj3WEVlEDMoDHWirz7ERVRpIJMnMXs1JXPyUYAhPDJxCYztNMLdPQZ0GSwcYYLbWAOuOV7U IhPaKNUpLFclGPFjRKUkMJOyvh5EDFNvGLRmMYD7KmRoRIEpCLUbCMjjGRXsJRCmDNFxBQEwBOFkNH7K VfWgCSSxEpQgKHOlORKiTMXblb3ECYXmMIYmIKXnBW XcHAYhJOCrPOj5xhGurWJpPIj1IR4IO2DrdfJfKkYCRl7Qa095DLW5VNTrIk1IV9kyNe5vTEQwAHLZYk 7JTVc1CSHtDEKsPDC5C2Y2DINaFesrYTS0ZJElQxRdTxO3LGW+HYr6LEA5XZE8IKp0EbkhGODsZKDnOi E4JsDcQRBgEZr5Hj6lCVHQCn4+OSpzhELqrMdsFIGJCbWbYZY8SOgjJGTJCx1Q ID Date Data Source [id number] 09/04/2020 01:19:12 PM EST [facility] Name Value Range Interpretation Code Description Data Fabiola rce(s) Supporting Document(s) Progress Notes [facility] HLLIPs2qBiOUJnSa15/LMBzhXMIas2MxYWgtCPm4SMrkXOLqX6FiXME0bW0bZAG9KMcUQiHyIsKcWnA6 lbm UnZjsYQxJhIOIqGlsOIcLqVDdvQuhvlPHeXK0FjMT3ANYhT62yOAAzYXAeO1XaNTS0QWR+Hx8LGLIjuO PkGA9YXpjI9Tddo9e21BoP/melyUWXfqa8iAjugtNUm5ldUIeUsqq13SSMyfia3h2UW6vCkF8Ly3GNoW gvyzPn5uO0s7WNH/YS0Vg4PmyCGFwG7+9ncqBSSilx /9d/KsPJ+Zz8/gxcoot2qma8G9cOQrUOC9H9ZC3P1A1LR2AnzcOGhRd5DQrXlGegRtJpUq43DIUwoUxW +VSfUA1l9QQBCt8O3B3xXo1szFF5Sx3z8NWOX7qyJPf80dS8Rx+dDRSsHqtQLcw5Qv3yOa8f7ZGUvO7K DXIJbVSAZGZQbqS3hYeDMBTfWYEEFQYJwQnHVyhsTA [file] TfLKW9pUHoPocBAGmqQr7eM3SYuzucpIhtK7Om8/[facility] [file] AgICAgICAgICAgICAgICAgICAgICAgICAgICAgICAgICAgICAgICAgICAgICAgICAgICAgICAgICAgIC WdFSXsBNMnANUqZM8NHQCfZGElNHHtHULvZEQrQDLqSMDkNYXcOVWzKNKrBSBlLGLgHBTiOIAaONPbWD AgICAgICAgICAgICAgICAgICAgICAgICAgICAgICAg JTHjWDPgFADqJMNfNAVuJOHjNZMsST9BIWUbQWZxJOAaCLYiGVNbAHSoGBJnEXYlHFKyVPOvBODqOBPf ICAgICAgICAgICAgICAgICAgICAgICAgICAgICAgICAgICAgICAgICAgICAgICAgICAgICAgICAgICAg MGAhKZ5UVBWyFCJkHRCsQPDpWIIwZHOpQPClPPGvWP AgICAgICAgICAgICAgICAgICAgICAgICAgICAgICAgICAgICAgICAgICAgICAgICAgICAgICAgICAgIC JsEEBcHRBwKBFrUKHvCZ7OYTAoMNKcFJIpGKHfTRIvDGVmEFViCUFoJCApBSNuDUAuLNBlDPTlIEYrNY AgICAgICAgICAgICAgICAgICAgICAgICAgICAgICAg VKOdDAEgLWXoVOQwQPZtDYLwYILrOFCdQQ8FJNVsOAFqGKRlYXMmEWBpSOZwUOZcAJZxPBVvKKYwBVKx ICAgICAgICAgICAgICAgICAgICAgICAgICAgICAgICAgICAgICAgICAgICAgICAgICAgICAgICAgICAg QZXwWFBqFL8ZTLQfTAFtKXKrZDVeDDAfXZWzPIVjFI AgICAgICAgICAgICAgICAgICAgICAgICAgICAgICAgICAgICAgICAgICAgICAgICAgICAgICAgICAgIC JtVVOoOSJmIBOaMGHzLKNzJK2UNBVfJRKkCCGpKXLoXZOiXMEeLEBgNFLbJAHkEWCpGGMeWOAlEEEuVH AgICAgICAgICAgICAgICAgICAgICAgICAgICAgICAg WJDkRGLwDXDcBZNoZMVhGHZdYYSaWJFtYDCvKG1VXQWyDYNlRLSnYNEaEJCwLPLoQQUzBZZtXZHpBHWy ICAgICAgICAgICAgICAgICAgICAgICAgICAgICAgICAgICAgICAgICAgICAgICAgICAgICAgICAgICAg RGNyKRObZQGsUF1DNAJmZANuDSZdTPZlMXBzGUUdBY AgICAgICAgICAgICAgICAgICAgICAgICAgICAgICAgICAgICAgICAgICAgICAgICAgICAgICAgICAgIC WpWOPdWDUaDHDyOOQtQZCjGROtUS3DUG93uIRxj8S4KXVfAY4hjdk/Ax8DHZobouTwhYIoGI9PWsEhHL 5zov1NEwUuZA9dxk9HKApLMdDoA2S6yZWxXMXnUQBS HhFgL14kVFoeUi54FIbaTHZwKqDpOLn3Yn0MCyZbI7buLKNpTuG7TZTzVgO0TNOsOlJ4ZJJuYlJbXEHj FKHbWN4LICJnY858pkZqUI2LTp6DIqNoRI0cck8VASehHDWuUpsQYkn0YQsvLS2NeKNjgNG2JVPsWIHH HlIgD9lmn8GsREbtSWGUFEvzKI4Eq8KirWGyMBq+Pg 1PRH7zm2JdLJr8HVRkOW2sis9XWGfXPeSiG7TgtFilEIKkv9iaHPFvZL9zhRUpOOV7ZKpzWBXkPPOkR1 2zjNpvgkkqKuDaWKJhIq54VtHcWlRpYZH5EIznCH6fVTgsOK8VRZH7PHviBEWqZVIrR8aXMwYuUSqqMU ZehRqmUG2ARwGwD9EdunAanPT5TkJnTTYGRs5+DQpl ycOoLbiKAbU7ZNDzh0ApUMy8KS9LLUMoIFibXL5MZIPpkW2jZKwdVC4CCgL9YJIpCOMBUvJdJ36fvXKp WMs8D8ZnUvNeWJEeEticTWEfFTsfWeHwPJOoHeItALvyPP5+ID4+XCwsXI6QPTnpvgDpAOCzQq8QWGJb DKDdAL1qSVCsPXEhM2R9qRvmXVJQRfKrD9zuswsaCN 3qYIPrN380jClwxxFyZXV7ZLKePm2NHZOdONP4IBZztWMkKHTiDZMNTLldRX3IyUNwCXZ9zD3jJFygVE EdIHTuO5tOXrQcpCdoPC84uCugwhNwlOIpMOo+Ej4GUZ1mz2GuWNg5jqVnNJrbFTNlZGzySVQeKDMdWX BrCJJ7PGD6OMCSNwNkGTVjDJUmCJyuCPXqMPFozl9U PHYrHGK1OEq8XRGcCAEiVHWjDYwdPRTlYTGiAiv0YDXxSAPcYO3FFaBtCMNkIOCeTUpmFFVmFSPbzg0P FUQfFVNhEqU4HxEpGWQxKDVlLPntUGLpLHFmQnJ9CQPfNAMqAP1VWvKvQWPdKUTcQVNsZOOyDNGovw9J MTSrPOEcJPI1OnIpYILjBESrNSxwYWDuTVV8YHXoIH GpAMDlBA3DNfKuMLLuFApaKobjIDCyGOLpmm6LNAHoCQWmHDY4CSWdXRNeBYKdBAmfVDWgHDU7LfM4AL BnEIYjVI2UKuGcADNdTKC2GzWiEGZsWGYmjj4EUNOlNWCxKLthGHZrXMOwLVQpBIorNENpNCMdYQW4EX OkJAVbMR1BOoOdTUPdDOQ1ZcXiMNJkPBBrgn8JLRUi VGPmPgS4IsBqJRKhGZMdIRwhCGOlFGEgRbV9DYQzFEWpRX3VTsQhQMDkYsS4UIQoKDEuBPMbhm2UIOAf OXOsQTBkWZHlKBKoYWZyWEcuPBOoOQU7DdCiCDBqZCQsOM7TNtMpIPWqWlH1YfUcXFUeLHMrsb2LVFTe NDShVKNiYfMeEIJeFCUgJXbeELJrDXH0RLR1VBYrXY YjNT4VIqOzANPbAiP9AUTwABJiZLRzac4DNBXoLEMdKjvrXGMtHRFaWUXgBItlKELcCMA7TOvpSZOeEM EnRD2RZuEnWEVtNhelDSAkAPLmRJVtkf9KZKObRYUrOBZpXVUrBMJeFEJpBNefXHLnCNU2OMetHDYcHR ZaIH0NTzJmIBMtAnheCULxVIKiMRJtfh5AQJNzEPAu YDKhHBHjLZAtRPXnALiaTFKbPXVpONS3QYDhLYArPB9TUmQiYDOuZJJzXwxoBWHnKYUpsh7DNDCaRFA8 LmL1JrZhWZIeMBZeLUucGHDnDJSmXmGuPSUsIBJoRB5EXcDmOYVkWKA2DvIuGBMkBQPcte1HNDGnYWQ4 YLGjYsVrPUYsSABwJPgxTJFdVWT0RYG8KMXuSXCuQW 6WItBaIGMkMPnhIAnjEKXuRQBugh3RIDIeEBH0AZP4MiGdESXkUCRcNBowLAYrUAX8WCG9BAGkASHnGZ 6SOyVpSHKkSHZ5RQWnSACdICFvgn2FLLSxUHU2RHX4WIKmNCDoMXKyPAiwRSNfJDMkQEC1DLTxZKJqHC 4AAvSgVYUvTGLtJZMjWVBhRKVxhr6EUDCaSVB9Mocp MdEbHQGaEFLjTFsbXEEnJJUjTPpoALJxZUWgYG5UPpCbJKYjVXPcXmHeKFYqQRErla9QnDCmuZjqnz8X LXvVDz1EtKjcQAVqPFefDi6neVI8QLFbZRKDUq8MuxTdSUGwEJPLCWzhWXZgKTXfISPbSGW0YUz5Y0Xe O2AtMIrpFGZeBUV2FIFrWEOgPnP2ODGsHWKiLSC6IA ZxQQVwZEO2TOX5ISPpCNZwCiE8TqB+KN1nSTl+Tk9Zo0SwypO7pcVfHSg8KqM0Ue2ZXXSFM0BHTp== ID Date Data Source [id number] 09/04/2020 11:39:00 AM EST [facility] Name Value Range Interpretation Code Description Data Fabiola rce(s) Supporting Document(s) Glucose, Fingerstick 267 mg/dl 70-110 Above high normal [facility] The above 1 analytes were performed by [id number]#: [id number],[place] [address] ID Date Data Source [id number] 09/04/2020 10:50:44 AM EST [facility] Name Value Range Interpretation Code Description Data Fabiola rce(s) Supporting Document(s) Progress Notes [facility] CZESKl9rMpXZOcVu72/RIEpjXSOrm6TvSOmgEZl5TOuaPKKfW2SqTYD9zD6jDSJ6AFxVBbVsFpNtNqA2 lbm [file] AgICAgICAgICAgICAgICAgICAgICAgICAgICAgICAgICAgICAgICAgICAgICAgICAgICANCiAgICAgIC AgICAgICAgICAgICAgICAgICAgICAgICAgICAgICAg ICAgICAgICAgICAgICAgICAgICAgICAgICAgICAgICAgICAgICAgICAgICAgICAgICAgICAgICAgICAg ICANCiAgICAgICAgICAgICAgICAgICAgICAgICAgICAgICAgICAgICAgICAgICAgICAgICAgICAgICAg ICAgICAgICAgICAgICAgICAgICAgICAgICAgICAgIC AgICAgICAgICAgICANCiAgICAgICAgICAgICAgICAgICAgICAgICAgICAgICAgICAgICAgICAgICAgIC AgICAgICAgICAgICAgICAgICAgICAgICAgICAgICAgICAgICAgICAgICAgICAgICAgICAgICANCiAgIC AgICAgICAgICAgICAgICAgICAgICAgICAgICAgICAg ICAgICAgICAgICAgICAgICAgICAgICAgICAgICAgICAgICAgICAgICAgICAgICAgICAgICAgICAgICAg ICAgICANCiAgICAgICAgICAgICAgICAgICAgICAgICAgICAgICAgICAgICAgICAgICAgICAgICAgICAg ICAgICAgICAgICAgICAgICAgICAgICAgICAgICAgIC AgICAgICAgICAgICAgICANCiAgICAgICAgICAgICAgICAgICAgICAgICAgICAgICAgICAgICAgICAgIC AgICAgICAgICAgICAgICAgICAgICAgICAgICAgICAgICAgICAgICAgICAgICAgICAgICAgICAgICANCi AgICAgICAgICAgICAgICAgICAgICAgICAgICAgICAg ICAgICAgICAgICAgICAgICAgICAgICAgICAgICAgICAgICAgICAgICAgICAgICAgICAgICAgICAgICAg ICAgICAgICANCiAgICAgICAgICAgICAgICAgICAgICAgICAgICAgICAgICAgICAgICAgICAgICAgICAg ICAgICAgICAgICAgICAgICAgICAgICAgICAgICAgIC AgICAgICAgICAgICAgICAgICANCiAgICAgICAgICAgICAgICAgICAgICAgICAgICAgICAgICAgICAgIC AgICAgICAgICAgICAgICAgICAgICAgICAgICAgICAgICAgICAgICAgICAgICAgICAgICAgICAgICAgIC ANCjw/fQNcO0kepNSnyhE9F6xjZk1RSz0EYP1is5Gj OPAwMKskebNdKsxZAuWxGVAzMtvUOgg5JAgvAW2EhEYcC6WdP6YoAThmDJ6YMWSxKKNpcECmUGTrPJRg DdQ5XSFiPKzlKY1ZnDNeFUvkCAPvCKMrNO8QLDJhT310hhDrZK0KVw1ASvJwHC7yok5EKIxaBNOqSxiP Azi7RTcoYF2HwZRtuOUqQPCbWGFHOsUaT2nbe8YiUA lwKNVNHNkzJC4Ei3UgnXTjYWy+Ru3MLU6kj9GcQDdmTHCwIS5win8ZQKjXHdOsN3KulJqoPGYhb1fwGF WhDG5adCNhRIP7EDDahQMyxPSTFGV8lG5iNTfvwzXhSR4FLYP5OOFbUD4fAAWmIYIiHbRqJYYMCM2CTJ BiKJBirRAaFYGkWVOBAU2BUJmoAAB8MandboJdqKWh EMwuWN0GGCNmtdUrTVtkMCHQDDk+Wx9HGZ6gh5YjGOyjEHWyXI5jfe1EVOwQBmXsA2C0hOXqF4O1UPha Vz9ZTLSzRCDvLZXkFBLXAMyrFB0PGW1sugE3PU9EnPNnVYKuCNAduWNkZHf4N80gbSUkDLpfAT1HXRU+ Anais+Vo8MVOVyEXMjUPEmJnIvJUEAQeCeR3YeZ5IBg4 OcI5ZqPY35lWququWiGLhuTI4NYJ3fUVQxKGQUOC6JmZQyzS3gsjRaAqEbTJWPTrBoD41qnDQjMAViFJ Z0SZAtZp7KNQTmI8IxgdTpaTxxonLiDYXsCZRRZF7OEWwcmwDfnEKriDxnRB56hYjoXF1VDu5AZfVwDP 3ftz5BeOFvLh3IQTAbRR3APQEzXPDvYXQlDML7SDFl BvHjJIrdUMKqGTCbHUH1NOWhMDFgQX2JQxEsZTKySIL9VPGbVGUxMUHhvc5HJSCiIVTlRcT7SACcWOYo FVRuLXesXBIgZMDxDGL4YYCrTVHpEP3HXlYrHVFxVYI3FCAiHFQdGYHxiy5OUMUlRHBaRHyyOPXqCOTf YAZiQLulPLKtGSMnIoD0CTGfUZTvAK7PYqSjOGBaWS O9NYewDGLhXYNuyq8IBEWqLQGlVuS1ZLPcIJRqWBTbSIugCRQaDOC6KJLbSBQeLJDlKY2EXpWpPUKbBI LkWEDcNBMnAECifx6VVKDaRJDoTSV7OzBzUDFlFUNaKFbkOOUsYYH7QADkTOUsWAAgCI4WMrDvDXTvMG A4HKZdVEXrKWFqhu2LNLCwGOZgRAcuVuQeLJHiBQSg WPhiXSTaMUN3ZcQ7EXByERTbEX9RIlZfFPNxSGc0HFDcCFTkIHNwhr0OHWHsRGGvGwx3HcYwHYSdEISv KVcxAFPvIPV7LZHzLCLyJQLnGG0WKiYlNMigZGTJKpb7KDpbH2q6FGIaQZ7IG5Rih4YnLKaeOJROGNai PB4cvlSnEULtHy8EL4eSTdzoRZZxQoEwDOV1NtG5D1 WnWmAvRyYfRUKdVNEkYGP1Ul7qCGR5Y8E3OGE7EaU4Gif1VBLoTOA1NNQyTHQhNuF2BTn8YmFoAE6UQs 3KStD8SCN9qXBaBs9ONWK1BT6JZPVFR9ORLb== ID Date Data Source [id number] 09/04/2020 07:39:00 AM EST [facility] Name Value Range Interpretation Code Description Data Fabiola rce(s) Supporting Document(s) Glucose, Fingerstick 229 mg/dl 70-110 Above high normal [facility] The above 1 analytes were performed by [facility] [address],[facility]#: [id number],[place] [address] ID Date Data Source [id number] 09/04/2020 05:15:25 AM EST [facility] Name Value Range Interpretation Code Description Data Fabiola rce(s) Supporting Document(s) Nursing Note [facility] VJIKYu1tJuADFaTv77/IAYuuXMUnh6SvKNrrRJi2FZjkARNeN4XnOYP3pP0dOAD7XCdKYrUlLfRzFtN3 [facility] [file] ICAgICAgICAgICAgICAgICAgICAgICAgICAgICAgICAgICAgICAgICAgICAgICAgICAgICAgICAgICAg ICANCiAgICAgICAgICAgICAgICAgICAgICAgICAgIC AgICAgICAgICAgICAgICAgICAgICAgICAgICAgICAgICAgICAgICAgICAgICAgICAgICAgICAgICAgIC AgICAgICAgICAgICANCiAgICAgICAgICAgICAgICAgICAgICAgICAgICAgICAgICAgICAgICAgICAgIC AgICAgICAgICAgICAgICAgICAgICAgICAgICAgICAg ICAgICAgICAgICAgICAgICAgICAgICANCiAgICAgICAgICAgICAgICAgICAgICAgICAgICAgICAgICAg ICAgICAgICAgICAgICAgICAgICAgICAgICAgICAgICAgICAgICAgICAgICAgICAgICAgICAgICAgICAg ICAgICANCiAgICAgICAgICAgICAgICAgICAgICAgIC AgICAgICAgICAgICAgICAgICAgICAgICAgICAgICAgICAgICAgICAgICAgICAgICAgICAgICAgICAgIC AgICAgICAgICAgICAgICANCiAgICAgICAgICAgICAgICAgICAgICAgICAgICAgICAgICAgICAgICAgIC AgICAgICAgICAgICAgICAgICAgICAgICAgICAgICAg ICAgICAgICAgICAgICAgICAgICAgICAgICANCiAgICAgICAgICAgICAgICAgICAgICAgICAgICAgICAg ICAgICAgICAgICAgICAgICAgICAgICAgICAgICAgICAgICAgICAgICAgICAgICAgICAgICAgICAgICAg ICAgICAgICANCiAgICAgICAgICAgICAgICAgICAgIC AgICAgICAgICAgICAgICAgICAgICAgICAgICAgICAgICAgICAgICAgICAgICAgICAgICAgICAgICAgIC AgICAgICAgICAgICAgICAgICANCiAgICAgICAgICAgICAgICAgICAgICAgICAgICAgICAgICAgICAgIC AgICAgICAgICAgICAgICAgICAgICAgICAgICAgICAg ICAgICAgICAgICAgICAgICAgICAgICAgICAgICANCiAgICAgICAgICAgICAgICAgICAgICAgICAgICAg ICAgICAgICAgICAgICAgICAgICAgICAgICAgICAgICAgICAgICAgICAgICAgICAgICAgICAgICAgICAg ICAgICAgICAgICANCjw/jUOkB9wdfYVzdxS7E9riAb 3WPt5QCU6pd0EvRSCpPXttidRxLrkXDgQxRWJgFxcPZrs5AZznIB4BdBFoM3FqA1FrDAzzHN2REEAzNP KnuGGdXQJxUSHyRiD9EGQpMFaqZX4KtSPgBOopXEMjXXDeFH6ORKRjN855qyOsVK3VKz9WOxKlLI1toy 7HGrGrOIDuOorULao7BQlpTM1YwRDsgAYfKwPlYNBC JoQkI8liz1SiZyZsJJBZHKvwCG7Ny0RuaKFdXYx+Wp2QTN5ls2SmWGumJkWwDN9ulp4QKKwSLzGqA9Xx sKjiLJ84gcDjclsyBo69TUKuiIXKLXDslBSdC7TuyHk4UNMKJsFwiRDsGwdeJwWeOBOnCWesSEJXEUaM CnIgV0Dus4WpGuS4RFMqCdGzGMumCKUbKfQ5KG16sO poTZ0QTELdHUYfVC34KXKeQPExIu2VRa8AYlFfIP5pkn5HFdQlCZQzSmzAPsr4MLpbTF9SpKRzZ0PwaW Yjx3wHZzCoH7UEWQYtDHRxPw6BYFCeGlVoVVRlWIsbWC1eYYHzGXFJbYdxchA1OF8GDZ6yeiAwMA7TRi MaAe9cZi7JMhVoW4UeI5GsWDZbOEIXIUzxRS4KVPbr JQ3nKK1Mb1YVlAWxkG9yof0FHSCnUMOyIugxxp9MKuoqT9L2xTwdMDTwRvZfJRFOAQliLA6RABDiDKV9 MLKoHTHkNOLSPeEqA54iUZ7MB1Yne24hNqY7QLNhGrGvZHcpSM72hNzvrqIsnFHjlBdsFU7UIx1+DQpl bmRvYmoNCnhyZWYNCjAgMjUNCjAwMDAwMDAwMDAgNj Y7OfUxOw7PCQSrJOTgRBQlJxOdPSEvEBPpWAnsXNHzVZX6KJP8SCUzKRLnHQ6NQfRtMJNgMcTtNfCqTD GtPFXdbl0SABVaWKRmHIN9DyIxVGHoBGFfYZiwWFNsBVImXTxiDUOlRJOiWB6WAzAyHHBsSDEvLlFzSR NmPQNmwa5FIUBnHNMlGlAbDnOiHTKhSLCkWVlxBDRm AGKpKiL1VTVhWBGnFQ7DCuBoXIPnDWR7HJhcBRCzXAXnhr7ZQFRdZSSyLsC1XXMyJLWeSXSmCSyoMXFh BMAsJci4KZBnPWHqHR3ZNvHiBQOsOGG8HQehDJAkPIAtzn5JRAJyNPNzZqCcVjGdHQWgAGGsYEbvFWZs RCM4PYReGBBdZHRcCE5DPeCeCEGqSTY2GxIlECJlJM Gsdk3ABPCeQOVcGom6WDIhEDOzQHIpFLjtFUJoTXD2MEH1DNRlHDPsXD7JUeDiKYQkEEtwFYwfPKLbIH Ahbr2WZNVqTVIpXKR3LEPvRKCdUHJhMCgsERJiNPD3EWT2YPCyQDTfZF3AChMlJBKcAEb1OlJlAPPcQO Pdas3GVIRcJYGkUZX6ZUFyJKBhQMRyIAfxAHSnEVXz LzWtIFLgMWPbJB6NHzUjRVFiDjQ6THmuEDJtPLBlzz9MnMBvzQantf4PQZhDXy6BiIflWYY3TVknCa0b lZXhXBXhBTSWOk5LvhKrQETtDOMQTZskEZJwFUY8OdlxCfB6GWOeP3RtC5H3HJAxKWZaO9L2O3L6CLT8 VbM9FtgpM3U9HpN5G9A8SaM6FXGfVpFkGPT9AwnyAN dlZTU+HM8rDHp+Zp4Dp3XszbP7cmBvEKapEUilIB5URKXAZ9HXPo== ID Date Data Source [id number] 09/03/2020 09:05:23 PM EST [facility] Name Value Range Interpretation Code Description Data Fabiola rce(s) Supporting Document(s) Care Plan [facility] VZTGVn0dGfZRVmVb15/WUCkgKPJkf9JpKSujVPa6HUtaKKXpV0SnUAX0pC8jHVK3TBvTHpMtDfCkWzS1 lbm [file] AgICAgICAgICAgICAgICAgICAgICAgICAgICAgICAg CHBpXDMuOVElPM5XMRPtUKVyZEHyJNVhQTExCHXeYIVuDAPuIHFdVGOiOEGrSSXgMIPgDEXzOEBfRCVn GDIlMAEnUQUhJHJbGJZwCMOnASAxSZXxCJHeCSXiWDMjESGsKUEbSGVuQNDkMDNiVMRhSE0XFEZkOWBh ICAgICAgICAgICAgICAgICAgICAgICAgICAgICAgIC AgICAgICAgICAgICAgICAgICAgICAgICAgICAgICAgICAgICAgICAgICAgICAgICAgICAgICAgICAgIC FzCR8ISUPwIONiGEQaNVYyZKXpTACtRLQhPWItFPFnGMWtREPnRYIuDINqRBXhGHGbVDZyOOOzOOFtJS AgICAgICAgICAgICAgICAgICAgICAgICAgICAgICAg UTDjOAKkBSRuKPSzLW2OBRKfOVXgMCRqAPDjZNZnKBMxDWIbDNXuXUAuCPVxUDIhMJPoLPZpITFoPYDd YBLeAMYhSLEaTLZmHDFuTCXcWJViPEUaPIOfZZSgZZUgFUYrACXxCRZhLKQcLPGvTCUhAGBwUI0YYGIh ICAgICAgICAgICAgICAgICAgICAgICAgICAgICAgIC AgICAgICAgICAgICAgICAgICAgICAgICAgICAgICAgICAgICAgICAgICAgICAgICAgICAgICAgICAgIC VyIHJrNU9TLPBdISVeTIUyJZFgIEKdPADbWGHqMTHoGIAzXIAvJINbFVIwJXYiCIAyKICvSLHkKKMxBE AgICAgICAgICAgICAgICAgICAgICAgICAgICAgICAg YOEvNGAjIKXiUOZhGBHdRI4JLBPvGFApZPRqJSKbZZXfLTUeJCWyZMEnMDUgYXOvGXShPCMcSFVtZDIn PEIgCJPjESQhAKRiYVJcBIEePXJzJXDmNYHzVNAeMVNgWETcSDSoXZGgYLDyQDScIAFnEPQiGZCvPR0U ICAgICAgICAgICAgICAgICAgICAgICAgICAgICAgIC AgICAgICAgICAgICAgICAgICAgICAgICAgICAgICAgICAgICAgICAgICAgICAgICAgICAgICAgICAgIC SuBLLtSVPaOU6DGMNkRPCeSMAjOMDyJBYiIYPlCWGuLSIqAYLyWOIuJYPgHXBtWYKzQUUlYNKfEIXpTE AgICAgICAgICAgICAgICAgICAgICAgICAgICAgICAg HIZgRGZgXNAoRNQwUFVzTDBpEN0PVY40hVFcp5O2GIQlAG0ahpb/Vw8FUKvluvJwdGHtVJ2IHyOpAW8n ee3OLmRhYX9otz2ORXzYItZqB6D8rJXiIFIvIXOTQiUrW22qPGusBs56TPxuEYTgUzCnRHr6If4FCrLv Q8lrYFPeZcS3LPVyExXxGUgyDC9Tk9XqsHJwENv+Pg 0EDP9zs8LeMSkaGtMvTQ7onl5PETeIWxMtT7YhteA5LYZiPRIsRh9WEGKkBSGpaWOoQyNjAVJHCxHnB9 PzsC54UUKZQj3+RHgfqoZmLtgRDbNyQIHlf0EhGPb1HX3MTMHuZUn6cEIlG4TiXXKUgWCpTDO6YXksj3 czHKTEB7r0hEozWEBRFIB6YSEkRT4lHMVvWYT5YqKs CYNUMS5YMOFrRJQqqIByGZTqBYHBPM8POKttRDV3CjsudmKloTDdHDfpUI7KSVJponIfVjHeYYNZZRt+ Dd7FKN7cl7JqYSdiJMRaDB2bwg1HFXeNIgPyY5M9jVIbL7O1ENztZa4DGUTwOAXuDbJkEVJKUKrmHN2U QS9hgyZ2BI1YiXCpOYEsUVXtuUSzESd1G26lzTWoWB yoXN8GJWK+Anais+Ag6UUWPhNLQiBMKrNhAoLYOMCjPtJ7CwT8CXo4VuL7CnPZ66dOqkgtDzRAdsUD5NBX 6qMYQjDTVCSV8QlEIfmF3txsCsAfRwGHOBMbWsV19hpSBtKMBsDARcRZFhLu9ZKKJoB3GkqjVyhMepse FwDHCoTAZMFO6PHPaogqCmsIUosDfkUW62uRhqQH4V Gk1STpBmWK8gbo9EzSSdZr3FIQObSN9JBOZvEEJxXMQmPSR0ZJGfLjDfGYvmKANjPEOfQPO1YYRnKAGj UP6WArJoLNUoWMg8OhEzOMSjZCSrkb9YMUAxUDOuPAO6LxLqPRPkDHAvTSgaJNNjUMBbPAM2GBHnLGVe EV7PCqRjJLGfCHX1VeFzBHIvBXGznq8DBVRzTGLdGL B5KCLkQSYbZFQzRJpmSEXwFJQuSsM4PSZsQNYjHY2BKbLcMWVnFBM0UdazVOEqWYJkea4EVAPfRNMmZm PzRlAiVVCdVYZtETrcTQNlYEVfEQajGTJmYCVoUQ5GKgUdHKTmGDKcWsxxIDSmLVPmon2PXMTiUUTeZN Q7XNGwIHIvXLWiQIeiOQMvOYC8IuDoSOBrINNhZC9O ZqLcKQFfZNykPBCiCMUbASZbrl2RQSZrEVOkNiJzYVWuLNQlDCZaVNgySVKxCXV0XNK1UOEeODWpTV2C JbOnNDRuEJj8NPRtKIWhXXKaqx1PICDfCMNbTYB9TiDpQTXeVJZxQDajLOCgNVB0EqV9DISrNKIeGG0M QvMwWVEcUIi7TVVwDSNiKTDkjd9OIIKlEUVlQVNtCc BcESPaYUZmXDljDCPmGCMvEfA0CLYpOXQqZX4JNpOnLTYhVcR7HqWnJLWnHUIppd0PSCQjHYLyYBk2EQ BwRHDmGTJaPUc9ijPefVHmODv8NE1PM5VfgbSfFoPUAu3Qo436FID5YIMwEd7MR7ckGb5mTAKuIEUUDx 1BUFt9HLu6ZSYpSwH4IRZeKFOhKmO5XLSaVbV8HyR8 NmIwOTE+OHqzFbS6DUTeYiW4BqWaTLQhMIy1CXWoOTzhMUM3DjK8MB7eDMDHCk4+DQpzdGFydHhyZWYN PwGpRmPoKGfjZJESOi4C ID Date Data Source [id number] 09/03/2020 07:51:00 PM EST [facility] Name Value Range Interpretation Code Description Data Fabiola rce(s) Supporting Document(s) Glucose, Fingerstick 286 mg/dl 70-110 Above high normal [facility] The above 1 analytes were performed by [facility] [id number] [place] [address], ,[place] [address] ID Date Data Source [id number] 09/03/2020 05:09:00 PM [facility] Name Value Range Interpretation Code Description Data Fabiola rce(s) Supporting Document(s) Glucose, Fingerstick 132 mg/dl 70-110 Above high normal [facility] The above 1 analytes were performed by [facility] [id number] [place] [address], ,[place] [address] ID Date Data Source [id number] 09/03/2020 03:00:40 PM [facility] Name Value Range Interpretation Code Description Data Fabiola rce(s) Supporting Document(s) Care Plan [facility] ODFRKl4bKhDUMgFh79/ISUwbNUDxu9CtUGqsOHj9EEdnRXVwF3FiTLT8kX0gEXX5EGqBWbHkItOlKzY8 [facility] [file] AgICAgICAgICAgICAgICAgICAgICAgICAgICAgICAgICAgICAgICAgICAgICAgICAgICAgICAgICAgDQ ogICAgICAgICAgICAgICAgICAgICAgICAgICAgICAg ICAgICAgICAgICAgICAgICAgICAgICAgICAgICAgICAgICAgICAgICAgICAgICAgICAgICAgICAgICAg ICAgICAgICAgDQogICAgICAgICAgICAgICAgICAgICAgICAgICAgICAgICAgICAgICAgICAgICAgICAg ICAgICAgICAgICAgICAgICAgICAgICAgICAgICAgIC AgICAgICAgICAgICAgICAgICAgDQogICAgICAgICAgICAgICAgICAgICAgICAgICAgICAgICAgICAgIC AgICAgICAgICAgICAgICAgICAgICAgICAgICAgICAgICAgICAgICAgICAgICAgICAgICAgICAgICAgIC AgDQogICAgICAgICAgICAgICAgICAgICAgICAgICAg ICAgICAgICAgICAgICAgICAgICAgICAgICAgICAgICAgICAgICAgICAgICAgICAgICAgICAgICAgICAg ICAgICAgICAgICAgDQogICAgICAgICAgICAgICAgICAgICAgICAgICAgICAgICAgICAgICAgICAgICAg ICAgICAgICAgICAgICAgICAgICAgICAgICAgICAgIC AgICAgICAgICAgICAgICAgICAgICAgDQogICAgICAgICAgICAgICAgICAgICAgICAgICAgICAgICAgIC AgICAgICAgICAgICAgICAgICAgICAgICAgICAgICAgICAgICAgICAgICAgICAgICAgICAgICAgICAgIC AgICAgDQogICAgICAgICAgICAgICAgICAgICAgICAg ICAgICAgICAgICAgICAgICAgICAgICAgICAgICAgICAgICAgICAgICAgICAgICAgICAgICAgICAgICAg ICAgICAgICAgICAgICAgDQogICAgICAgICAgICAgICAgICAgICAgICAgICAgICAgICAgICAgICAgICAg ICAgICAgICAgICAgICAgICAgICAgICAgICAgICAgIC AgICAgICAgICAgICAgICAgICAgICAgICAgDQogICAgICAgICAgICAgICAgICAgICAgICAgICAgICAgIC AgICAgICAgICAgICAgICAgICAgICAgICAgICAgICAgICAgICAgICAgICAgICAgICAgICAgICAgICAgIC SwPSVuAJQgTPn1M1kzJIAzDLEmPI6qHFb3Qc8+DQoN LtZnHOX0dbElqF9CAS6ch7UtGDerQLHcn5UuFDz1AN0IHMGbHQpeRI8HVUfsuk3IKDQrLNSbnEXXb4qs BjWiAEN0IBPhJhytAM1LENCeS1tyxoPiFZNdZXXSIU5OEnItQ3XraG33VPBVXf0+DQplbmRvYmoNCjIy EICcr7ZjKPm9SO7CSUGuFgvju6KoOyAeINXYPBwiBO 5KFFO7NUUpVEMmZa2FFLFcN943jcXaNN4XPg3QQpBrMU0tku5ECdWfYFQpOqwEHbr0VChhTB2PcFXgNP uZTIOkBRGiLJ1zNejgNm6lxDJvDF3ys9hvGERKILP3SEFqRB1dNBMoRLDhIjA5XCMKCX4HRQYlWEKpzQ XnBBReZWYVQN3WAPcoNBQ4ErzaghVbbNBzNLilSJ3F YXJlbnQgMjIgMCBSDQo+Ef9FYK9kk8DeTJzdTEKeUN4hdz8TLFqCAkWqP0V1yVWwZ6A8PCgoVt9DPEJh GWVrCbIbCFDYBSstQB3WPL9qtqF1LU8ZdAViYHNcODAefEWvZUn6I60ecWPlRYuvRF6SECF+Anais+Pg0K ORPmCPKiPGTsVbHoRTNKPoExA7SuX0BFc8KsZ4QhPD 15hFkgyjOpQNedWD2CIS9gNXLvSTTWLD9QmYOiiC3msfQcUcSfZKLOOkXpN26wvYKcKTPkIZZiSWXwPq 1FQNNlY0FmrlPzmPgwqoIzFHWtAKFTRC2UNXpuacRylRJaqWliMB72qVwzXU1TOq5POvRjKO4tuw0XqG OoJy6PTKXvMI2VQKTjKIDeIWSaRQH3WZTjRvToXEgs GHIdWSPgFNL0TNVzUIZiKI4CQeJgQAKnEMyuULBqXIIcGEAikl3TCADiEPQhSJqdPoLvDNZfUSTvMIzy BJQxCUFqTZT5OCYwXAIjUX6UOnJiYUOhMTW2SyMjAQLiCCFzoz9PKPJfBIDuZUbvQCQpGSCbVYOvJIrl UZDiSPHjEFa4QVSuVDIbKB8HXtQkKJGoBWLoCGflSL HsQSXbqy3ECWXyUVQzYeD9NnBqUTJaUVPyGVopJJBtGKH5JnRwRIPuDKGnAL4NAeIyETOcRCO9FwwqMG TfHIIrue3CAANnHDEfEHNwBQZqXOYaWNRlWZtsDCMjMKB8BLGiOSNvAKGgHY7BUlQjBZUrXAqbLyEyWP UoEHAawo1RFUWuZAEaNlP0AGWdWSPfDKSsUOztUWDe SGH8WcX1IZFsOGOiNS1EOrDrCPJcMNe9EbNgEEVfSPNcyh2ZZCQySCNeHQieOoSsZPGsCDCuGXcoSSHc WTU2XVs8VFClWMFvWY8MFcOiRXKqRHtvSzHnDHNyTFUado5PEQVjOQKgKVC1CpRbIIVfJTQbLXuyJBLz SIOaCHI0PIYyQJVrVF7XEjKaMRFiFmSxULUtESCjRA Dmsb1QBEWiNZFhVQDrUoEdBFLjKVOuURt7cjAzlKGwLKb6FU0ME5BjsoNhHxISDh0Ad635DTN1KACeVh 4LW5lpXz2hIRKgADYLHb6HWMl6BlDnXIPxZoOdJGRnPhC8ARW6RSXqOTHyKqymQfU2JRH+JSf1DREmZX H4ZEOxSMJiVhEcIJtcWROpOlGpCNHqTEjjCZ9lKC ANCj4+JRyznAZjzFubVCFZBeVhAYxdUAvhULINQr1D ID Date Data Source [id number] 09/03/2020 11:39:00 AM EST [facility] Name Value Range Interpretation Code Description Data Fabiola rce(s) Supporting Document(s) Glucose, Fingerstick 121 mg/dl 70-110 Above high normal [facility] The above 1 analytes were performed by [facility] [address]#: [id number],[place] [address] ID Date Data Source [id number] 09/03/2020 11:17:36 AM EST [facility] Name Value Range Interpretation Code Description Data Fabiola rce(s) Supporting Document(s) Progress Notes [facility] SXOSAm9nRqOTDnGw99/GEUyzQHLdi6YjKTdbODm0EZcbJVXhD8NzKXA2eW7hEFJ0OEeKFrHbMhClSuF2 lbm [file] AgICAgICAgICAgICAgICAgICAgICAgICAgICAgICAgICAgICAgICAgICAgICAgICAgICAgICANCiAgIC AgICAgICAgICAgICAgICAgICAgICAgICAgICAgICAg ICAgICAgICAgICAgICAgICAgICAgICAgICAgICAgICAgICAgICAgICAgICAgICAgICAgICAgICAgICAg ICAgICANCiAgICAgICAgICAgICAgICAgICAgICAgICAgICAgICAgICAgICAgICAgICAgICAgICAgICAg ICAgICAgICAgICAgICAgICAgICAgICAgICAgICAgIC AgICAgICAgICAgICAgICANCiAgICAgICAgICAgICAgICAgICAgICAgICAgICAgICAgICAgICAgICAgIC AgICAgICAgICAgICAgICAgICAgICAgICAgICAgICAgICAgICAgICAgICAgICAgICAgICAgICAgICANCi AgICAgICAgICAgICAgICAgICAgICAgICAgICAgICAg ICAgICAgICAgICAgICAgICAgICAgICAgICAgICAgICAgICAgICAgICAgICAgICAgICAgICAgICAgICAg ICAgICAgICANCiAgICAgICAgICAgICAgICAgICAgICAgICAgICAgICAgICAgICAgICAgICAgICAgICAg ICAgICAgICAgICAgICAgICAgICAgICAgICAgICAgIC AgICAgICAgICAgICAgICAgICANCiAgICAgICAgICAgICAgICAgICAgICAgICAgICAgICAgICAgICAgIC AgICAgICAgICAgICAgICAgICAgICAgICAgICAgICAgICAgICAgICAgICAgICAgICAgICAgICAgICAgIC ANCiAgICAgICAgICAgICAgICAgICAgICAgICAgICAg ICAgICAgICAgICAgICAgICAgICAgICAgICAgICAgICAgICAgICAgICAgICAgICAgICAgICAgICAgICAg ICAgICAgICAgICANCiAgICAgICAgICAgICAgICAgICAgICAgICAgICAgICAgICAgICAgICAgICAgICAg ICAgICAgICAgICAgICAgICAgICAgICAgICAgICAgIC AgICAgICAgICAgICAgICAgICAgICANCiAgICAgICAgICAgICAgICAgICAgICAgICAgICAgICAgICAgIC AgICAgICAgICAgICAgICAgICAgICAgICAgICAgICAgICAgICAgICAgICAgICAgICAgICAgICAgICAgIC AgICANCjw/rKTxD0gfaQJmapN4K2deSk3RCd4BRJ7u c4ThLWFeFQjaabBxIoyKQiCbYAWgYsxOXfm4XNfoYB5LiAQdJ7WoH5SiFEkxQL6NYAEhTJOapYLjXCJb TEJmUcA9UQRsQOohSY3TyZKiCJxnYGKfHXClZH2SABFvD738dtQdJD5HPi4FNnPiYL4nyw8MVObjRAPu MehSNez8UEjkWZ2XcIQwnRSuRAWpYKVGEgTxE4nmr8 ZkNCqnUBBVISrlKJ8Uo2SxzJWxSFa+Mu6YBU6la1JyZJedBVUqAK1mat8SFLpQFwPfX3JvfTakKAXib3 qjQMBlDD1bnGBbSMK9AGRauEPmpMALEEQ1hF9iRJucrhEwGJ9JTUQ1KMSpCD2bLFDeINUqXhFvBSZOPY 8WIXJaNGKwhSYgGRVpVEOEGK1WXVcbHJN2TwpbudAc oLHmWStfTD8RQWGfqzUoHPrpNGTUMFp+Wu6WGS1mt3DkCFsiZBJzSK6weh4LGSgQIuZoX2Q4tLSaG1K3 GPhjIy5XRWEjDHQaTTKwCIIWVNkpRW0KKD3qmwY9JQ7VxQQcHZSgUGYwiRYsPGe4L78wnVFiRSulDA1B ICA+Anais+El1KBWTqIAQbDMKoPeWoCSHJAiNuU8WxY9 TCw6FeE4GqMD34aYxvocGdQRueGJ3ZHE3bXAVmGMGYZF7PlJThuE1rbiGuDkTbGJDCQtIoA98nkBRdWX IaHRG9YRGhSi7WVHFjS2OelvDifOswvkSnGJLqVLSYED1XXCbgyfBymSBauUrtME56xMshIW5EWx2YTm ExUV9abh8XyKDoDm1YCLAbDC3VJRYlFMFsNHAkIFX5 CZXiBdTuGMixQWPnHDQnZAH7MPOpPRBoSU1WVyBzLEUyKDG7RQNmPAHnHBMrer2QXUTuDDOaDeG6GQWz UNCcJZUiUSyyXORgUSDdDQA7RERoKOOeHP9PWzKzFDIsIMX8SCygGMKsKHObji9YEFHmLOXwIBhbCjAr JSZkRJLeHOctPSBmPLQeUcLrLBXcPUAtTP4EImFjXD OaEPZ2HoYiIZOhABQwkm1ACDSmQWBgCeY2XaZyPRNuFSNbAJcdVWIiTGL2HMC6DYUiCTVpWI8CRyKaMW TvBXSuGPXbJOUxOLWzjn9XTKWmRNSrGYZ3MDSqSNBgZPRqLLdnFMItJEL3OQHfTRQmISIaBA1DCqLyYB GjLSV0SWLfTYIiJUSrgp0XGJPvHAAvLSflRCDhQKXb GNMaCKppZKKxKYY6FuQkSIJyDGYaHG8GVmLiBJEoDQm6LEvyMFOcTIColq5IPAZeOOGaXle9RBIcXZGv WKOpMDprMBOjZQY3BCQeFKDdGVXeMM6QIvOsVDwwLRRRMju5XDmgN0r8NRQyIF0EW7Faq0UfMLzpGIWY WGlrUW8aivLmYBUlYi1KJ6uWMtqaHBT6MhR3NIVgII BiTsP4TGa2JcB2VCMlCHUyLMOoDl3xIEKlFDEaEkR6SfMnN3B9GEEjOVmtJAViGjR9WrJ4NOSwDfObWQ 3ZKa3JWdH8LPK4oSUbNa3MMGN3Ya6UAVDOD4RYTj== ID Date Data Source [id number] 09/03/2020 12:40:00 PM EST [facility] Name Value Range Interpretation Code Description Data Fabiola rce(s) Supporting Document(s) PSA, Total 1.64 ng/ml 0.0-4.0 Normal (applies to non-numeric resul ts) [facility] The PSA is performed using the Siemens ( [place]) Cleves assay methodology. Sequential comparative analyses should be performed using the samemethod since results obtained by different methods are not interchangeable. The PSA assayshould not be used as a cancer screening test and should not be interpreted as evidence ofthe presence or absenceof malignant disease. PSA, Free 0.224 ng/ml [facility] The table below lists the probablility o f prostate cancer for men withnon- suspicious RADHA results and total PSA between 4 - 10 ng/mL, by patient age: (Siemens ([place]) assaymethodology)% Free PSA50 - 59 yrs60 - 69 yrs70 + yrs< or = 10%40.2%47.1%66.0%11% - 19%14.7%24.1%31.6%> or = 20%7.1%14.3%12.5%Sequential comparative assays should be performed using the same methodsince the resultsobtained by different methods are not interchangable. Results cannotbe interpreted as absoluteevidence of the presense or absense of malignant disease. PSA, Free % 13.7 % [facility] PSA Frequency First specimen [facility] The above 4 analytes were performed by [facility] [id number] [facility], ,[place] [id number] ID Date Data Source [id number] 09/03/2020 09:42:00 AM EST [facility] Name Value Range Interpretation Code Description Data Fabiola rce(s) Supporting Document(s) Hemoglobin A1C 10.8 % 0.0-5.6 Above high normal [facility] Attention! Effective: 07/06/2019Please n ote a change in the reference range for Hemoglobin A1C testing.Previous Reference Range: 4.2-6.3New Reference Range: Normal: Less than 5.7% Pre-Diabetes: 5.7 - 6.4% Diabetes: Greater than 6.5%The above 1 analytes were performed by [facility] [id number], ,[place] [id number] ID Date Data Source [id number] 09/03/2020 08:11:00 AM EST [facility] Name Value Range Interpretation Code Description Data Fabiola rce(s) Supporting Document(s) AST 15 IU/L 15-37 Normal (applies to non-numeric resul ts) [facility] Sulfasalazine and sulfapyridine have the potential to falsely depressAspartate Aminotransferase results. Baseline values before medication administration are recommended. ALT 18 IU/L 16-61 Normal (applies to non-numeric resul ts) [facility] Sulfasalazine and sulfapyridine have the potential to falsely depressAlanine Aminotransferase results. Baseline values before medication administration are recommended. Alkaline Phosphatase 85 mIU/ml 50-136 Normal (applies to non-num zbigniew results) [facility] Total Bilirubin 0.30 mg/dl 0.20-1.00 Normal (applies to non-numeric results) [facility] Blood Urea Nitrogen 28 mg/dl 7-18 Above high normal [facility] Creatinine 1.10 mg/dl 0.67-1.17 Normal (applies to non-numeric resul ts) [facility] N-Acetylcysteine (NAC) and Metamizole brady ve the potential to falselydepress Creatinine results. Baseline values before medication adminstration are recommended. Patients undergoing treatment with phenindione will have falselydepressed results. Patients on phenindione therapy should be tested with an alternativeCREA method.Toxic levels of acetaminophen may lead to falsely depressed results forpatient samples. Glomerular Filtration Rate 71.00 mL/min/1.73m2 [facility] GFR Reference Ranges:Normal Function or Mild Renal Disease,if clinically at risk:>or= 60Moderately decreased:30 - 59Severely decreased:15 - 29Renal Failure:<15 Please note that the MDRD equation requires an additional adjustment forAfrican-Americans (multiply the GFR result by 1.210).Glomarular Filtration Rate (GFR) is estimated based on the MDRDequation, which assumes a steady state for creatinine (Glenny Int Med 139/2 137-149, 2003), as recommended by the NationalKidney Disease Education Program in conjunction with the National Institutes of Health and the National KidneyFoundation. The Cleves method used in calculating this result is traceable to IDMS standards. Glucose 264 mg/dl 70-[address] [facility] Sulfasalazine has the potential to false ly depress Glucose results. Sulfapyridine has the potential to falsely elevate Glucose results. Baseline values before medication administration are recommended. Calcium 9.4 mg/dl 8.5-10.1 Normal (applies to non-numeric resul ts) [facility] Total Protein 7.7 g/dl 6.4-8.2 Normal (applies to non-numeric re sults) [facility] Albumin 3.4 g/dl 3.4-5.0 Normal (applies to non-numeric resul ts) [facility] Sodium 140 mEq/L 136-145 Normal (applies to non-numeric resul ts) [facility] Potassium 4.3 mEq/L 3.5-5.1 Normal (applies to non-numeric resul ts) [facility] Chloride 108.0 mEq/L 98.0-107.0 Above high normal [facility] Anion Gap 9.4 [facility] Carbon Dioxide 26.9 mMol/L 21.0-32.0 Normal (applies to non-numeric results) [facility] The above 16 analytes [address] performed [facility] [place] [id number], ,[place] [address] ID Date Data Source [id number] 09/03/2020 08:11:00 AM [facility] Name Value Range Interpretation Code Description Data Fabiola rce(s) Supporting Document(s) Magnesium 2.2 mg/dl 1.6-2.6 Normal (applies to non-numeric resul ts) [facility] The above 1 analytes were performed by [facility] [place] [id number], ,[place] [address] ID Date Data Source [id number] 09/03/2020 08:11:00 AM [facility] Name Value Range Interpretation Code Description Data Fabiola rce(s) Supporting Document(s) TSH 0.29 uIU/ml 0.36-3.74 Below low normal [facility] Concentrations of Biotin above 100 ng/mL can potentially result ininterference.The above 1 analytes were performed by [facility], ,[place] [address] ID Date Data Source [id number] 09/03/2020 08:11:00 AM [facility] Name Value Range Interpretation Code Description Data Fabiola rce(s) Supporting Document(s) Triglycerides 97 mg/dl 30-200 Normal (applies to non-numeric re sults) [facility] N-Acetylcysteine (NAC) and Metamizole brady ve the potential to falselydepress Triglyceride results. Baseline values before medication adminstration are recommended. Cholesterol 150 mg/dl 0-200 Normal (applies to non-numeric resu lts) [facility] LDL Cholesterol 61.6 mg/dl 0.0-100.0 Normal (applies to non-numeric results) [facility] HDL Cholesterol 69 mg/dl 30-70 Normal (applies to non-numeric results) [facility] N-Acetylcysteine (NAC) and Metamizole brady ve the potential to falselydepress HDL Cholesterol results. Baseline values before medication adminstration are recommended. Cholesterol/ HDL Ratio 2.2 0.0-5.0 Normal (applies to non-n umeric results) [facility] LDL/HDL Ratio 0.9 [facility] The above 6 analytes were performed by [facility] [id number], ,[place] [address] ID Date Data Source [id number] 09/03/2020 07:44:00 AM EST [facility] Name Value Range Interpretation Code Description Data Fabiola rce(s) Supporting Document(s) WBC 6.08 x1000/ul 4.80-10.00 Normal (applies to non-numeric re sults) [facility] RBC 4.82 x1Mil/ul 4.70-6.10 Normal (applies to non-numeric re sults) [facility] Hemoglobin 13.9 g/dl 14.0-18.[address] [facility] Hematocrit 42.2 % 42.0-52.0 Normal (applies to non-numeric resul ts) [facility] MCV 87.6 fL 80.0-94.0 Normal (applies to non-numeric resul ts) [facility] MCH 28.8 pg 27.0-31.0 Normal (applies to non-numeric resul ts) [facility] MCHC 32.9 g/dl 32.2-37.0 Normal (applies to non-numeric resul ts) [facility] RDW 13.3 % 11.5-14.5 Normal (applies to non-numeric resul ts) [facility] Platelet Count 290 x1000/ul 130-400 Normal (applies to non-numeric results) [facility] MPV 9.3 fL 9.4-12.4 Below low normal [facility] Neutrophils 53.5 % 40.0-74.0 Normal (applies to non-numeric resu lts) [facility] Lymphocytes 35.4 % 19.0-48.0 Normal (applies to non-numeric resu lts) [facility] Monocytes 8.2 % 3.4-9.0 Normal (applies to non-numeric resul ts) [facility] Eosinophils 2.0 % 0.0-7.0 Normal (applies to non-numeric resu lts) [facility] Basophils 0.7 % 0.0-2.0 Normal (applies to non-numeric resul ts) [facility] Immature Granulocytes 0.2 % 0.0-0.5 Normal (applies to non-nu meric results) [facility] Nucleated RBCs 0.00 % 0.00-0.20 Normal (applies to non-numeric r esults) [facility] Abs. Neutrophils 3.26 x1000/ul 1.92-8.31 Normal (applies to non-numeric results) [facility] Abs. Lymphocyte 2.15 x1000/ul 1.20-3.70 Normal (applies to non-n umeric results) [facility] Abs. Monocytes 0.50 x1000/ul 0.14-0.97 Normal (applies to non-nu meric results) [facility] Abs. Eosinophils 0.12 x1000/ul 0.00-0.76 Normal (applie s to non-numeric results) [facility] Abs. Basophils 0.04 x1000/ul 0.00-0.22 Normal (applies to non-n umeric results) [facility] Abs. Immature Gran. 0.01 x1000/ul 0.00-0.02 Normal (appl ies to non-numeric results) [facility] Abs. Nucleated RBCs 0.00 x1000/ul 0.00-0.02 Normal (appl ies to non-numeric results) [facility] The above 24 analytes were performed by [facility] [id number], ,[place] [address] ID Date Data Source [id number] 09/03/2020 07:15:00 AM EST [facility] Name Value Range Interpretation Code Description Data Fabiola rce(s) Supporting Document(s) Glucose, Fingerstick 228 mg/dl 70-110 Above high normal [facility] The above 1 analytes were performed by [facility] [id number] [facility], ,[place] [address] ID Date Data Source [id number] 09/03/2020 05:19:38 AM EST [facility] Name Value Range Interpretation Code Description Data Fabiola rce(s) Supporting Document(s) Nursing Note [facility] BFSPEp3vZtOHEaEp06/XLRxxOFCaf6YaKFfdJJu6VAvrELUbK8ExBHX5pK3kRYF1LOnVLlRkXeMjAeK3 m [file] Y+DU8iBAp+Cu1Ju7SntpL5udPlLBmtSPwcFD1LKEZLE6EJYi== ID Date Data Source [id number] 09/02/2020 11:58:46 PM EST [facility] Name Value Range Interpretation Code Description Data Fabiola rce(s) Supporting Document(s) Care Plan [facility] SPXPSu1tQbVDXxSk62/CYYytXBIut3UjQEyfZKm0BYadKSYsH5BnNMH2rS3kOHV1QAcLQiCcHyCkWbU6 lbm [file] QbH1KOViHEZ+DJ6rZMc+Cl2Si4GvmiB1dkThIVnxWKIbNm5NIVCNP8QXDs== ID Date Data Source [id number] 09/02/2020 09:30:00 PM EST [facility] Name Value Range Interpretation Code Description Data Fabiola rce(s) Supporting Document(s) Glucose, Fingerstick 125 mg/dl 70-110 Above high normal [facility] The above 1 analytes were performed by [facility] [id number] [place] [address],[id number],[place] [address] ID Date Data Source [id number] 09/02/2020 07:57:03 PM [facility] Name Value Range Interpretation Code Description Data Fabiola rce(s) Supporting Document(s) Consults [facility] DKOVYn3hMuNDUrQq37/JBUnnKTWoq1AgQOttHHa2GLohZZDnD5UmSAF0dM7hDYC7PGaOEwXpCkKvDtI4 lbm [file] AgICAgICAgICAgICAgICAgICAgICAgICAgICAgICAgICAgICAgICAgICAgICAgICAgICAgICANCiAgIC AgICAgICAgICAgICAgICAgICAgICAgICAgICAgICAg ICAgICAgICAgICAgICAgICAgICAgICAgICAgICAgICAgICAgICAgICAgICAgICAgICAgICAgICAgICAg ICAgICANCiAgICAgICAgICAgICAgICAgICAgICAgICAgICAgICAgICAgICAgICAgICAgICAgICAgICAg ICAgICAgICAgICAgICAgICAgICAgICAgICAgICAgIC AgICAgICAgICAgICAgICANCiAgICAgICAgICAgICAgICAgICAgICAgICAgICAgICAgICAgICAgICAgIC AgICAgICAgICAgICAgICAgICAgICAgICAgICAgICAgICAgICAgICAgICAgICAgICAgICAgICAgICANCi AgICAgICAgICAgICAgICAgICAgICAgICAgICAgICAg ICAgICAgICAgICAgICAgICAgICAgICAgICAgICAgICAgICAgICAgICAgICAgICAgICAgICAgICAgICAg ICAgICAgICANCiAgICAgICAgICAgICAgICAgICAgICAgICAgICAgICAgICAgICAgICAgICAgICAgICAg ICAgICAgICAgICAgICAgICAgICAgICAgICAgICAgIC AgICAgICAgICAgICAgICAgICANCiAgICAgICAgICAgICAgICAgICAgICAgICAgICAgICAgICAgICAgIC AgICAgICAgICAgICAgICAgICAgICAgICAgICAgICAgICAgICAgICAgICAgICAgICAgICAgICAgICAgIC ANCiAgICAgICAgICAgICAgICAgICAgICAgICAgICAg ICAgICAgICAgICAgICAgICAgICAgICAgICAgICAgICAgICAgICAgICAgICAgICAgICAgICAgICAgICAg ICAgICAgICAgICANCiAgICAgICAgICAgICAgICAgICAgICAgICAgICAgICAgICAgICAgICAgICAgICAg ICAgICAgICAgICAgICAgICAgICAgICAgICAgICAgIC AgICAgICAgICAgICAgICAgICAgICANCiAgICAgICAgICAgICAgICAgICAgICAgICAgICAgICAgICAgIC AgICAgICAgICAgICAgICAgICAgICAgICAgICAgICAgICAgICAgICAgICAgICAgICAgICAgICAgICAgIC AgICANCjw/sQIfO0yedMYlbsE6M8arOx9VCe2JDZ8p i4FkNHFlYEauykKqXxdOByOxICOaKedVMwa4DGqoQT2XaCVjG0ZlR2NvYLczLN1INMUnOIIlfHObPZOd KWXbDnJ8BLPaPAetUL8KdYAmBZuaRRAkJJDtPxVkXIXyNGTgXPQxJDEzSQIDQL4VCgSqF7YigA54CYIZ Cj4+DXnkikVvGthHBzG3FKBxk6UlCYx1AK7VCZGdIh qcy7VjObOaOCEOLXfuCV8IZIP8GZD6XOHqDs0HCNLsO456evOsEV5ISc1VKaZlGL2izd9KFpAaXFFiTm rXAkt5FNtqEA8IzIXoEPfJs65ohKf2ttCjdLNScNbwkPRUFCkoI4nvbbBjIQ4UKTS6WBZfEo0pGYOfZI YeUbP6SMEIGJ5FPXJnRZMffRNqHSTlWZHBGJ5WKZyz NFL5OojnwhNanDFjDTxpLE7MYFNlddGpClNdIJNANKu+Ma3EBT7wr7ToBGzqFmEdAL8wlb5ZEYzPTiBt O5L9wBVlJ5X0RDcdLq1OHIFpEUJlEtFhAVWWULmrCG2DIZ1qffP0PY8TpUBcVIPcBFCxpLKqHSk6W06e sVYnLIabCR1ZFRE+Anais+So1MZEQtGXXlAOJhGoHpLB NMIiLxR7TvC9GFh4DjT5AlMQ06qBpbeiQlLQizTI6WKP2mELSmOIYKQC3GsTBziZ1vhvIzCJRsHMUCFo ZjX00qfGMuYOCfYZC5PUTuPq8VSCEbQ9BqgwFccTivryGsTBNuQFACLO7XXKylavEaiJNrsMckKZ73yS nmRA9ZLo0KCyGfQG9poh9UpECcLv1BMRVgTW0MWWBh VDHdBFUgBJR0KULsNxAqUMktVWOcBYPdOQS1QBRmENEbBI5QZsOzWYJeMVs9JEDfNCVzLUHbhn3JMKEp NKJwPZDkIkKiGCMiAQKaGWdpKAThOPNnJCT9OBEnWLJlYQ6AWbRgRZNuZNR1HaApWJCyVYQlhy9YDCYl HEAhVna4BGIgQSCvENKuSPeqJWEdFRF5SCL3NBRwEH MsDW3LBdMbDHQmNDT2KmAyCEOjWQFxry5WDQFfBNPtPpKhZVMeIWDwFKZfPNleKNScEKH1FTK7UKNdUE PmIZ2TRkEfHBBaJWn3QQTtBIOcKZUadd3HKMKlIAPxZFOoCNLlDQLoHHTvTTkqUPOaHGR4OZhpJHUyYW OaTS9SSpXhRVFcJCFgXWWfBLGuVZZool5ZZFRhZJGu RHW1PBJgIVYbBUAoAKxaOLJrBQCxLwXaXPNgDMUiKE3BVoEvUDIyDDH4DabmCENwIYAzqb0EQJVlMRRm LNmmGLLkQMGjFHWyLAfzOCTjGGTlTsE1NXUuHUXrRH8QJeOxFSUlCRN5JYAoFFKyBLKtod7IYBKqRBRn RmY0UTVbFMYjAZAiTAycNZWlBJX1BAU2IIEzSIWwHW 4MAiBhHOZxOGVpPJTlNVVnRCLpjc4QAVBfWXZiVQDrKsRlQSNtDOLjPNoaICKsZYR1Wsi8LFUzWXWjBY 0POsVdPABeULB1PCFxQZDtNILbjz4HWGUxBBUrJUc0JDDkCQLqKVFgHMosJWTkDFK1ObX0HXMmMJRkKI 7RBmTbVOLjQKQ8YqrtIHTjLSZflg2JSKRhPUWxWdUu MGIwMMUlCRJrBSghMIGwQNX2ICeiSUYyQCGwUU9LHaTrBIYfJSsfXFLdIPBtFDVfma7MSACdCOMbDNY0 DtJqSJWiCPEaGKghJMAyUSI6DFv3DZEkLFZtZQ4UEiOpAONtBxA1XzTcUQMmVDYyyd5ZQZSsFSMaNUOz MFTqKUXnBHCzLUkuNXGsCVHhQyY3QIGqRODqAY6XGt CxXWofCPOIUyw3KKmzT6w1XUShUD6QV9Kqp6WgFoyqYADCEZjmWA2sviUaHDAwQp7HK2zYKsp1Mkd2CJ UjKdF0RGBxUIM4JBJyNnK6DCCaAOzoNmNhKT7pAQxoZwh4RSQlOmZkXhE7PgH8OVV4HwuoU3MuEfXyBC Y5BlEiCB0XGp8TTfX5CHB9oPSlWx6SZmH4MUEIKxNtOL6SPVh= ID Date Data Source [id number] 09/02/2020 05:02:00 PM EST [facility] Name Value Range Interpretation Code Description Data Fabiola rce(s) Supporting Document(s) Glucose, Fingerstick 354 mg/dl 70-110 Above high normal [facility] The above 1 analytes were performed by [facility] [id number] [place] [address],[facility] [id number],[place] [address] ID Date Data Source [id number] 09/02/2020 12:26:34 PM EST [facility] Name Value Range Interpretation Code Description Data Fabiola rce(s) Supporting Document(s) H&P [facility] DNNHGe3cXxSSBtHz23/OJDmdPUPsi7YgJPmmFJg6QBbiNXYrB0SsDIT6yA1zMDM8WAwFIvAtSoSeHiQ1 lbm [file] ICAgICAgICAgICAgICAgICAgICAgICAgICAgICAgIC AgICAgICAgICAgICAgICAgICAgICAgICAgICAgICAgICAgICAgICAgICAgICAgICAgICAgICAgICAgIC PiCGDpVE0WJBOoASHlTOEfJSXyUDJdECInHFTdOJAdWMClLWJrFZMqNNHlHGUfINQxGOZaTDYmHWTzSD AgICAgICAgICAgICAgICAgICAgICAgICAgICAgICAg VEBcDUPzGALvDRFlOKFuBN7VQDHzLVNpWIVvXZGfJJSrNVZjRJWmWUKhCCPyAGJuJXUwXDAeEXXrQXZo WATxGMAyUNTeTNOvSVIzJXHtGCZhEGJjPAYrLMWpKKOvQSTiTCBiJXMoGLJxDGQoCTKuRFEeMNUqUR3P ICAgICAgICAgICAgICAgICAgICAgICAgICAgICAgIC AgICAgICAgICAgICAgICAgICAgICAgICAgICAgICAgICAgICAgICAgICAgICAgICAgICAgICAgICAgIC HgNIGqEIAkCD1ROWVqGSHaIYIrYGCiFWCvXZVoOGDzCZWcDOUnRRItVPFqPNIuNHGcUQCpLWJuJXEpIF AgICAgICAgICAgICAgICAgICAgICAgICAgICAgICAg YOHtWVLpAZFqSSSiTUKjKOVmWA8ORGMiUROpIYYdIATaXHCnSDTgVNTpGDOoHQJnDFYkXKSuBOBiKRLf ICAgICAgICAgICAgICAgICAgICAgICAgICAgICAgICAgICAgICAgICAgICAgICAgICAgICAgICAgICAg LS1JWIReOLRpZWArYHBmKVQkOAGqQRMtEDOaFGCwHK AgICAgICAgICAgICAgICAgICAgICAgICAgICAgICAgICAgICAgICAgICAgICAgICAgICAgICAgICAgIC LkKQVpGWClIZNvCI8MQRWmOMNuAAVxPCIoBFIqCFElGRPuUVNgKKLqKFIbHWNeTKPxLFMaDACtQSKbUD AgICAgICAgICAgICAgICAgICAgICAgICAgICAgICAg POUcLZPvPKCjZFDqFGBwVZLyQULjGJ7CGZPrZDXeNKAiVYIcXCTwUZKwLPMnPESxEDYiPRPqSXZiFXQa ICAgICAgICAgICAgICAgICAgICAgICAgICAgICAgICAgICAgICAgICAgICAgICAgICAgICAgICAgICAg JXThKH8OBTOsGJKiKUOtOGJvKCJzUCJmPJGrUUYvYD AgICAgICAgICAgICAgICAgICAgICAgICAgICAgICAgICAgICAgICAgICAgICAgICAgICAgICAgICAgIC EzAZRfQYVsGTHvCSCqXZ9XWP88rJYdh9C9FPGpRR4ukbx/Zy5SYEvzboKiyYBlUK0UJzUoKL7cic9HWe AuYB1xvm4AAKxTRqHlT7W7cLYtMWSdGVSKUqTuI31j NWqvRl53MComUFRqWhFeCXq2Ht8WZnRbR0kyPQLhXhA1UHAmOvStYUojKI8Wy3XmeMJxNZu+Tl4IXN8t m4BtFXnzAiKoLJ4tby6CQVjCYbJgQ2PhryM4LPG1SXXqUz1KRQKwSUKloEIfCDKgGHYPHgPwF2GirT49 IDENCj4+KNeiaqGoQziBKlF0YEXsc4OkCZm8SI8PUX VuURs9yFDtPFLMCXZ3MIFgkBNisRGXVJE0rL9pZUlyegDuGQ6PXTR8FHVvKt0wXPHhMRPnAqQsNDOWDJ 0SODQsYQExxGKkNJQgAAVBFM7VBVzpKHJ1QwlfywCxpHGlXWpsBZ9DLGAikwSpNOejQEBNJLq+Pg0KZW 8um3JpJGbbANGnAC5afd5WXKmBGdQiO4L0tTNrU3H7 IVflJe4FFEKrRQQhPYRcLLAYUWljUA9ACF5tleR4OA8LqAJlASXdLZIcfYWpHNo6S28ceOUdUGtyDI1W ICA+Anais+Xn1ERLDkUOTrRRQuCxXcZLTRNwGqC5EpQ3JDt9DkN4VpYN91yWxuupAxNZmiIK4OWW6oQHIz SDKUMI6WbTKayW2imkNrKzKlVMNKTrCiT84vyHYuDZ RmPBA9ATCfFm2BJMHtD8MqglAknQqxqmBrRSSyQWUHJD6VDCikgmUquGFqySwqVL20fSppOD6GVp9FYi UcCZ5bmx8BuVEfGh3GXASzLI7YJWYyPMUcUOEyRWB1UOStHcZeTJwlZWKwQSRlLUG2GMZfCEWyHH3UNq OqJLNnNWggKFwjGANxEZNvvc5NLYYmAQFoXCJ0KiTr QEQmWKNfUGenDUNuMWXfFSL7KJEnYFSpFX6VXhVkAKLtFOTqMaKtITWrBCTqtn6DGDIjHYOqXtL4DGJt CLBrVXVvXOyuJGHkCJK3UkA7WXSsBEVdBL4XHyYkTBIrBIN3ZyxdLNLmLRIhhh0RHMRaCCOhIQOmXiQt PXUtGPGzGPogDJUnOZN3WRgkQGMeEDEkVV1WMzOuGN QmUBV4TzlsVNXoTALsvt9IRNGvLSMdRGx7IINfUYTuMCEgIAumLKTiCHN2XUQ2KDTjHWPgOV3TEoMtGU VvEHuvBTUmRZMrGPWhjz3IMSZqGFMrIlP0BPEhWAXwNBKmRXupARRnFTT3ZaM0JRNzLWJzYD3THmOfNE BeNNhoRSHaNRBvAEVray8XCQUvLROzLXFjGhRaBMFl USWyTCznFPQkHDM3AxX3DNUnTYKqPY9OPkSvFVnpLEWAXam2XKtdA4s1YCCbLC6WX7Gof4GmGUnvXAYF KJzzGD9gyhDrUSAhPl9LZ1tSLzdiBcMlPVE7KXB5SBMwLBZcYaCtAUO6Hsl2N6L3UDRzCl3yBGDwVLXc WNFuZMwsZmN5SURcNCLjJFruPFv3LQS6PsXvUcOt XJ5FIg9PHmD8JFA5dXYeRm1TPSVjWp1PRILZT4UGXs== ID Date Data Source [id number] 09/02/2020 11:54:00 AM EST [facility] Name Value Range Interpretation Code Description Data Fabiola rce(s) Supporting Document(s) Glucose, Fingerstick 411 mg/dl 70-110 Above high normal [facility] The above 1 analytes were performed by [facility] [id number] [place] [address], ,[place] [address] ID Date Data Source [id number] 09/02/2020 11:52:00 AM [facility] Name Value Range Interpretation Code Description Data Fabiola rce(s) Supporting Document(s) Glucose, Fingerstick 411 mg/dl 70-110 Above high normal [facility] The above 1 analytes were performed [facility] [id number] [place] [address], ,[place] [address] ID Date Data Source [id number] 09/02/2020 09:41:46 AM [facility] Name Value Range Interpretation Code Description Data Fabiola rce(s) Supporting Document(s) Nursing Note [facility] HNSERg7qAyKVTaKb38/EXZcpULWpq1MkFQyoTZh9HFhcPFXdL9StNUR6wO0mYTR7HQaTFrNuWrHbIjJ0 lbm [file] EQj9QnUnOF7ZCk4EDsX9TYT0mJOsYh7QXcX4RMIXTeUhNP1GEAv= ID Date Data Source [id number] 09/02/2020 08:43:59 AM EST [facility] Name Value Range Interpretation Code Description Data Fabiola rce(s) Supporting Document(s) Nursing Note [facility] QGIGFa2tTjJQBpNk76/FLPynMNXci7HmBLlxZDu2PVvbAZOwO6LbOBR3eY4gWCL0RVcTBnZiPmKcEkH7 lbm [file] AgICAgICAgICAgICAgICAgICAgICAgICAgICAgICAg ICAgICAgICAgICAgICAgICAgICAgICAgICAgICAgICAgICAgICAgICAgICAgICAgICAgICAgDQogICAg ICAgICAgICAgICAgICAgICAgICAgICAgICAgICAgICAgICAgICAgICAgICAgICAgICAgICAgICAgICAg ICAgICAgICAgICAgICAgICAgICAgICAgICAgICAgIC AgICAgDQogICAgICAgICAgICAgICAgICAgICAgICAgICAgICAgICAgICAgICAgICAgICAgICAgICAgIC AgICAgICAgICAgICAgICAgICAgICAgICAgICAgICAgICAgICAgICAgICAgICAgDQogICAgICAgICAgIC AgICAgICAgICAgICAgICAgICAgICAgICAgICAgICAg ICAgICAgICAgICAgICAgICAgICAgICAgICAgICAgICAgICAgICAgICAgICAgICAgICAgICAgICAgDQog ICAgICAgICAgICAgICAgICAgICAgICAgICAgICAgICAgICAgICAgICAgICAgICAgICAgICAgICAgICAg ICAgICAgICAgICAgICAgICAgICAgICAgICAgICAgIC AgICAgICAgDQogICAgICAgICAgICAgICAgICAgICAgICAgICAgICAgICAgICAgICAgICAgICAgICAgIC AgICAgICAgICAgICAgICAgICAgICAgICAgICAgICAgICAgICAgICAgICAgICAgICAgDQogICAgICAgIC AgICAgICAgICAgICAgICAgICAgICAgICAgICAgICAg ICAgICAgICAgICAgICAgICAgICAgICAgICAgICAgICAgICAgICAgICAgICAgICAgICAgICAgICAgICAg DQogICAgICAgICAgICAgICAgICAgICAgICAgICAgICAgICAgICAgICAgICAgICAgICAgICAgICAgICAg ICAgICAgICAgICAgICAgICAgICAgICAgICAgICAgIC AgICAgICAgICAgDQogICAgICAgICAgICAgICAgICAgICAgICAgICAgICAgICAgICAgICAgICAgICAgIC AgICAgICAgICAgICAgICAgICAgICAgICAgICAgICAgICAgICAgICAgICAgICAgICAgICAgDQogICAgIC AgICAgICAgICAgICAgICAgICAgICAgICAgICAgICAg ICAgICAgICAgICAgICAgICAgICAgICAgICAgICAgICAgICAgICAgICAgICAgICAgICAgICAgICAgICAg QDOhCEa4W8saQVExYOHpUZ2sQZx7Yd0+GYbLQqDvBIY9pkMhsD3HBS6sl8GqHHndCGWfa2LdYXi1ZW9A KZXpOWgyWC6DVUtwmg7HISEaDNPwhDORk4toEvKoQF R9QOEnKvgsDJ2VSQToV1uoitBqLUCuASPZPL4XAhSwL6UukY75EZIXId5+DQplbmRvYmoNCjIyIDAgb2 RcNBi0SK0XXNChUlhgn1PhYcHlVFFHNStyZQ8IRTW8DRFkPCRlWj7JMUImT828coLoIP1PAr0NItGbFL 8nha2DDlWfGXUnCwoKCfn8KLutRQ4WjZDxVOzPfQFn rQ3mEO9cqPAmSmquR6cgxUV0e3ZvWVEcSDZhsdAvJY9kGOKONOS2KJPhSj9iAIElWJQ1RhQiQGJMZG5L YZKaJBVywLLdUXWgBLFCES3BYLxwANZ7PgfteaVqsMNuQPvwSZ8MTCPtkjKxMwLaNHPWXZs+Sa8XNC1f i8JeQUufCFAmNE4jjn3OEMyQAyQbI5Q9aRSkN0L6IK muNx6XNXPjPFEuBzBmZCJBIVwjHI7GMX0qywF2WU2NaTAlVSJrEKKvpIRpNVz8X58lcFNqZMwxYW2DRV A+Anais+Rr3MXZJlHZQzUCMaCbUxHMJQKsPdL9QnS3YJn2LlB9VzYG03rTtuqzZgYXhoHK4TNF4aEYStMR EDNH5LbMOqzA0zjhXpFrVqUAMWGtYlR12uqWFvLYNg GLRbNEYeDd6MXUBpQ9KnhwFprWrjajLbHDTrGOLOXB2DJCusrdTdzKYteYybHZ91cVarFS8HNn9OWmAe TM3bdz6UrBTdRz2SAYRnRE1IEHHcKFImWOFcALK5YCLsXwZdRMdjFXLzXRVuGKN7KZKyHNCuAN7CDxJq GDYtTHz9UjTaHYOgOXWbvw8QYFNyMNAuKXWeLMQeQE AjXUIwDHnzEWMlOCZjIYZ4SIHlOOYkUL6WZaEfURLcRTZjSGAsYQKjXQIvuq4UIEEwGOGuOXSiMGLxVK IvYHQmYHqdVBCyJFAdTbV6XJSoYRUbGI3UMgIkOQDmYWO8PwgpMLZrZGYbwp8UPMTbRYMaPxe4YUGbMA DvUZMfBJtcXKXiMVMhBdAbBFUuMUYnTM1HZyZnBNPf MPJ3JFOrXORgBSMhzu3AJGJzQYOhTVS1LmCuHOGpHUUaTOitSVElHUQ6QFCvYKUhKYShAS0FOqBmNJVh KRV1YBfaWBUvHUXxfv0EOIFpPXMzMkh6FyYuSVEwDWOpXFgtLWUmBZV5YyB1FBIpVTQlIM7JCbKkDLKz YUcnEEMeQGGjJQXjhv4ZISRfTQXoBPS7NSNoBZQkRD NhWZwcRKFfVCI3QYr7UVJzNBCvHB6EXsLbVZAuHAb9IESiUUQaVWWres5GMQSzAZNbVIA4XVZjQRCmCF LmQGxgWSZrVZUzRPA0UIBjIKMaJX6NAlHuSNLxOpE2NrtyQVDvSAQyqk5GDCVvFOEwUOxkQYOkMGJaBT HdMDa6kgJnuZEvTDs0PW1FL7ZghjIdExPUUs1Fy155 GWU3BBDrYy0QX1poWb6yGUArBYDHFx9KZWl8B7YcIpF6DjEnZXZjHHKuEUDgZjYfHUFnSNAxCVAoBkb+ KYoeMLTqZAxjC6QeJGO3ZLDbGeI0J0RpCQKbIbH0ZZImDB0tSODYSz4+DQpzdGFydHhyZWYNCjIwOTcz IKlxXXNNTf9O ID Date Data Source [id number] 09/02/2020 08:43:39 AM EST [facility] Name Value Range Interpretation Code Description Data Fabiola rce(s) Supporting Document(s) Nursing Note [facility] LZCVTi4aHkHFHtYz60/DKDnwIXBqp0ZgPKnuZYj2EDsmXWRpG3NfOWM7gL7oIIM2AXmVIuXiGjUxFdJ3 lbm AkKugYDiNsSSGuZujCQuToVMhpAvgfcOXjQK0NrQB1THNbQ35yQCWvMVWcU9XzFJJ4Tez+Om7XSSNamV DnGF5XRyaB9Brff+O48b1A/vQqfYNlnF7X8poSgzWO6Jt6VrhuUslpNMevILjmpvxszzY19wty6v0eQN KKY9NgrIkfo1Wl++GJMV3JH2EtR0MI7i/+kV1I58Uc Vv7f/UeRay5G4W6/YO0wV+yGtX+yIuAZ8QnezE/Qf7r8/gvHkRsKH/3uklMYd62LdjO0CoZaN3vmFQOf 5vgjhsbSj13T0zRCibcupO9djJ61qtH3iWXaxC+KSNyCuOflQe8xb8x/Xea7fAfW8aySanoaNiagNN8l d1lMVKOSvaUWMTjhLwHGdeKyADwyEUAH7gEKQCGuf/ [file] ICAgICAgICAgICAgICAgICAgICAgICAgICAgICAgICAgICAgICAgICAgICAgICAgICAgICAgICAgICAg ICAgICAgICAgICAgICAgICAgICAgICAgICAgICAgICAgDQogICAgICAgICAgICAgICAgICAgICAgICAg ICAgICAgICAgICAgICAgICAgICAgICAgICAgICAgIC AgICAgICAgICAgICAgICAgICAgICAgICAgICAgICAgICAgICAgICAgICAgDQogICAgICAgICAgICAgIC AgICAgICAgICAgICAgICAgICAgICAgICAgICAgICAgICAgICAgICAgICAgICAgICAgICAgICAgICAgIC AgICAgICAgICAgICAgICAgICAgICAgICAgDQogICAg ICAgICAgICAgICAgICAgICAgICAgICAgICAgICAgICAgICAgICAgICAgICAgICAgICAgICAgICAgICAg ICAgICAgICAgICAgICAgICAgICAgICAgICAgICAgICAgICAgDQogICAgICAgICAgICAgICAgICAgICAg ICAgICAgICAgICAgICAgICAgICAgICAgICAgICAgIC AgICAgICAgICAgICAgICAgICAgICAgICAgICAgICAgICAgICAgICAgICAgICAgDQogICAgICAgICAgIC AgICAgICAgICAgICAgICAgICAgICAgICAgICAgICAgICAgICAgICAgICAgICAgICAgICAgICAgICAgIC AgICAgICAgICAgICAgICAgICAgICAgICAgICAgDQog ICAgICAgICAgICAgICAgICAgICAgICAgICAgICAgICAgICAgICAgICAgICAgICAgICAgICAgICAgICAg ICAgICAgICAgICAgICAgICAgICAgICAgICAgICAgICAgICAgICAgDQogICAgICAgICAgICAgICAgICAg ICAgICAgICAgICAgICAgICAgICAgICAgICAgICAgIC AgICAgICAgICAgICAgICAgICAgICAgICAgICAgICAgICAgICAgICAgICAgICAgICAgDQogICAgICAgIC AgICAgICAgICAgICAgICAgICAgICAgICAgICAgICAgICAgICAgICAgICAgICAgICAgICAgICAgICAgIC AgICAgICAgICAgICAgICAgICAgICAgICAgICAgICAg DQogICAgICAgICAgICAgICAgICAgICAgICAgICAgICAgICAgICAgICAgICAgICAgICAgICAgICAgICAg CNIcJJBcHATiGJYtBQBdTENrQKJsOPHkKQKeDMKoPCQyPCSkWXRnNWYaFPs1K2rdVNBiPBXcAP3hXYk5 Jz8+FRaOMeZaFGC1uvXivH8QPZ4ko1XgXWzvVZAhe3 KnOMp0PY9LBXCpERbzAF1BKEftyr8ZOQYiPGPsuPATl0nyOrJiIUL0DWNzQwybYN0QCBKpM6kfcuImCE StERHNBOjuSOEFQRbuPCHQLZ9IGdUkH1SfiI85FVRPHs5+AUouecQhHviBGkJ1YANyg1VlRAx5HM1ZIH OaDqlkg4NlXyWmOHMCNTsyUN4BQDL3JNY4ZAPsOs0J EGVbV442onAmZZ0PVc8PImXvWP0mbe6EGfMtGHVuTsnHWwd4CVsyDS8VyNStWFrQtXUpjN2bGK8yxSUr RbqfO1zxtQV7k2FeRIFrZVGywuPkVI2wQPMNZRL9LKPkBd5qYIXpYXG1RzAqJBOKTT9CIMEqRGJkuONb NRRnVUZTYZ6JKMesHEM0TegauhReqARoXBkrMU2KJE JlbnQgMzQgMCBSDQo+Dv1AKY7vq4UjPTezLrJwLL0iuz6NABsTOoFnE9O4dTWnP6F6AYbbSx9NDBLjSY AdMrIsLWWYHJxcED7CHD9mwgB0RT3WbRQfYWLcYDCckVXmRIb4Z17vmNKiDNpyYR6NUKQ+Anais+Pg0KIC AoKYLeCYSuPePpUCOMUxSoX3LpE0NHq6YvM2YjFZ07 mWylndNvUEmiSU3TZX0dGOOxBTRERV1JbAXgkR7wmdBfPTCxHREKCxBbQ17eiSZvVTPlRXFhOSDbTy2Q ZLYgK3AubvOfnSepbrElCWHmKUNAYL3ADUsbjgFvuGMstFlbHE62kSxhYC2EIt9NGbLjCW3wkw3VbXSd Db9YQKNxPl2ORAIlFMSmTZAsZKX6FJAnAvBhXWgbNP HtUETqOSY6YCKvTKQeIF3UIbQyHPVbEVC4NAHgGINwDEYaja4RXFFcPND7DVLcNqFbOHDcVRZmNLtmWV IgFNBlZOM5KWTmKQVuYH9LCaAmADUmPLI7LNRqHTLjLVVdob9ZYKWfFGTaByBtFHVuIYBzTKSyQSdkZL GyCTM0GmV0BBNhHMWhWQ5IIoHqPYCkEAV4QZQoRQUb BZQbrs5CERUyNNEiGdL5OPMrZHWxCESpXZcwLNRwSLJ8OeWxTLPjOFYgHP4WQeKhTCBnKGz2UDPyUGWw XCSslg1KFXCaIHWqSzryLkQtTWTeMNJkGZzgPLOrJUC9FTTwOPPgPOGcYJ6NYgPeQHYnEGk2KhBeJHXw ZXXifa0CHATmEVLrGJG2KCLfWCXqURYwCNalOPAaXM K3JdDxXHAiFPKwPZ8DYkFrOGIoDoO3COQeSTNbLEXduy9BPJIeGQJqXtSwLkLfAOQhJPZkKMaiOCKbEX WoRvW9FLSaDGOlKA9WNnAmLRJyNrK4OGJgJYWwQGXclb1RZZHzZBSsWjPlJVRpDZAvGYThSLqtCNPuSC DyQKErMFDjCGQgFA1GHrZuYVXeZiC4XgmoRNSaIHEt kv5LIPPxDENuYlysODDpJKGdXSJiMQhrHERsTDS3HQZ6GDFpWEGvGE3LBxIfAGQwEtMpXbAjTJFaGMWb do6TIGAxNBVaJIOmTaJoBRAiSZWdBRbqNWWyNZG4BqP2VWZhCVEqMT5QLlXnQZXbLVBcQNcsQCHoFSKl cd4WBBQyWBI3ALE2DvMeOUEmDKUeAFntBXHkJUR3Ni wjPISqKRQqSE4NToTxRANxFOU1AbObJRTsXFNsji4TGMGfFBR0Adr9MtCpYCSjUYFbVSkfTRQtKGM6IA MuXLLdIDLtOX9JKtPsJDZwYNo4IJVbALSaCITeuo5SUMGvYHU4LJI2YhQuYEOsOPDkIEm1vcJyfWLzPD d6GF4LH0VgerEsTfpXYe8Od419RED8QZVfYk1WT6pz Zt6yQMTkGJCFCx5CEGs4BzE4MWT4IZR0GiDeNFZyJTKpXXtrUxkkKCNwDmdnTNR+BKiiOrj8JSqeFzI1 C5R5UDBiWJNcKZO3S6KvTjWfX5CrDm7pULXDFm0+DKdnmGKolChhBLIILvZ0RLZmBTawVTLJGj8A ID Date Data Source [id number] 09/02/2020 08:15:22 AM EST [facility] Name Value Range Interpretation Code Description Data Fabiola rce(s) Supporting Document(s) Care Plan [facility] JOTIFd9qJsNNLqFg80/YTBccUJTfm7KkKUnnSDj4GReqPVAcH9EdTLS1dO1uKNV1VWsIOaCeDrPkDvX2 lbm [file] A4Q6LXHoMjG5GEFaMDE4WVl+BF8uBKp+Xe0Gw6DnnqQ9pmWtSXgmBZfhFo7DUCSVW2HDAr== ID Date Data Source [id number] 09/02/2020 07:52:00 AM EST [facility] Name Value Range Interpretation Code Description Data Fabiola rce(s) Supporting Document(s) Glucose, Fingerstick 211 mg/dl 70-110 Above high normal [facility] The above 1 analytes were performed by [facility] [address]#: [id number],[place] [address] ID Date Data Source [id number] 09/02/2020 06:20:13 AM [facility] Name Value Range Interpretation Code Description Data Fabiola rce(s) Supporting Document(s) ED Provider Notes [facility] NGUGLl6lUjEGBfHx19/PXHwrHSGun9WgVRokKUs6RKfcDROqA1IjWBS1mC5vHNG7PDfBNpZpSoYlAoP2 lbm [file] NnO1USM0dOEwIg7HIpMfQMQTHbOvKW4FTWo= ID Date Data Source [id number] 09/02/2020 06:05:00 AM EST [facility] Name Value Range Interpretation Code Description Data Fabiola rce(s) Supporting Document(s) Glucose, Fingerstick 205 mg/dl 70-110 Above high normal [facility] The above 1 analytes were performed by [facility] [id number] [facility], ,[place] [address] ID Date Data Source [id number] 09/02/2020 12:35:00 AM EST [facility] Name Value Range Interpretation Code Description Data Fabiola rce(s) Supporting Document(s) Glucose, Fingerstick 222 mg/dl 70-110 Above high normal [facility] The above 1 analytes were performed by [facility] [id number] [facility], ,[place] [address] ID Date Data Source [id number] 09/01/2020 11:18:48 PM EST [facility] Name Value Range Interpretation Code Description Data Fabiola rce(s) Supporting Document(s) ED Triage Notes [facility] PWLBYg1iIxQTFgBj99/FBTdiAHJdf9YfLZqgXVe2NCqyMGEdN1SnEJT2tH1dCFI9EBcUGzBzBmMdXmG3 lbm [file] AgICAgICAgICAgICAgICAgICAgICAgICAgICAgICAg ICAgICAgICAgICAgICAgICAgICAgICAgICAgDQogICAgICAgICAgICAgICAgICAgICAgICAgICAgICAg ICAgICAgICAgICAgICAgICAgICAgICAgICAgICAgICAgICAgICAgICAgICAgICAgICAgICAgICAgICAg ICAgICAgICAgDQogICAgICAgICAgICAgICAgICAgIC AgICAgICAgICAgICAgICAgICAgICAgICAgICAgICAgICAgICAgICAgICAgICAgICAgICAgICAgICAgIC AgICAgICAgICAgICAgICAgICAgDQogICAgICAgICAgICAgICAgICAgICAgICAgICAgICAgICAgICAgIC AgICAgICAgICAgICAgICAgICAgICAgICAgICAgICAg ICAgICAgICAgICAgICAgICAgICAgICAgICAgICAgDQogICAgICAgICAgICAgICAgICAgICAgICAgICAg ICAgICAgICAgICAgICAgICAgICAgICAgICAgICAgICAgICAgICAgICAgICAgICAgICAgICAgICAgICAg ICAgICAgICAgICAgDQogICAgICAgICAgICAgICAgIC AgICAgICAgICAgICAgICAgICAgICAgICAgICAgICAgICAgICAgICAgICAgICAgICAgICAgICAgICAgIC AgICAgICAgICAgICAgICAgICAgICAgDQogICAgICAgICAgICAgICAgICAgICAgICAgICAgICAgICAgIC AgICAgICAgICAgICAgICAgICAgICAgICAgICAgICAg ICAgICAgICAgICAgICAgICAgICAgICAgICAgICAgICAgDQogICAgICAgICAgICAgICAgICAgICAgICAg ICAgICAgICAgICAgICAgICAgICAgICAgICAgICAgICAgICAgICAgICAgICAgICAgICAgICAgICAgICAg ICAgICAgICAgICAgICAgDQogICAgICAgICAgICAgIC AgICAgICAgICAgICAgICAgICAgICAgICAgICAgICAgICAgICAgICAgICAgICAgICAgICAgICAgICAgIC AgICAgICAgICAgICAgICAgICAgICAgICAgDQogICAgICAgICAgICAgICAgICAgICAgICAgICAgICAgIC AgICAgICAgICAgICAgICAgICAgICAgICAgICAgICAg LNTxPCLtCVPoSLLyXAJzAUYdFAAgGYOiAMXsCHBnQBUzVELkDMy4W9hqJRHbBXPoOQ0gWXe0Fx2+DQoN AfCjBGN2brUycN4UFD5in1NrBYvlBQIhq2AdBAz2BL5CABYhPYcjMW8APYcjvq8BSEMmAUPdwWHBk2oa XoAoQKX6MPVyQjqrEM3GVTUjY6dsenZeGNCtWXHIXT 0POdGxM4VqqU29JQZNOt2+HUqlvoFvXmwBTaP2UQHzs8TiOUn7IW6FWYUrZomyl1MgMCveXSWSFLkgSO 5TBOA1VVV5WVLbOz1FXAKhN142otTwZJ0UPh8BIrFrHB0sht7HCEewQSNzKtvNQfy1AJnaIU2NtHXkOR qFRHLAjlxmS6OyWn09AMGbPfbrDlKodcFxD6KmjLBz HVDVIKG2GLGzDb3gHIYsSBYjZkI7CHMFKP3EMLIwOOXvfOCfGSRgEREMJP9HKFnuSTL3CrbpmoDkfKJf TItyAR7GQVAlreCgUUimJWFQGPr+Qs3WYJ6xi1FbFLcpNVXwUB3jij6VWOwZMiUcJ1T7hNKmL4B8MDsp Tz5RDRGkSWOkCECmOTDDPFkfJW1LPE2tkjS1NE1OiA LoEMWaSYJvbREcYIy4K63yaFAbHGsbRO8FRGY+Anais+Yg0QJLAtUFBhMLPpVkNaWPWYHkRwT5HtN6VVz0 YlD1BiDQ21wBxmalBoTNdqZN2KCO0iHIMoBSVWHL9BbSXbeK0evuJiJaCaIRISHzMwK84olBZoQUPzYN J9KVPhKw7UKLSwA7NvhxKqeWzysvEqCHRuSPLMKE2X VLweatSktDDtzPboVN22lEomZO2EAh8LFjTmQD1izl7IzURrMf1TWVEqIO2YPPHkOSKeYONlFSS9PSIk AnGmSSfkQGNuXQQjZDU6DKWmABMgHN8OUmFmAQLzZZJ8UHGrYYPcHKBuzg6AXLCrBOSrHgX3BiVtCGBa RYZcBRafTUKrPEBlMIB1ACCoDBVoOJ2NJtDuYQUuJU AoJlKbTJFhBYIemx8LEKPmIXSlROE8GSOeYGBfYMQyKAwsZBHjISTdUIBkAKXhSPTsJQ4PTqExUSNgXS I5QtNrQZOpHPPteu1WPJFkGRZcTguwGBOgURZtMMSfWZefLKHkBGWtIEN4OATrSLVnEE7NBaBsJVOwSC XnXxJaXRRzYAAmvm1LDHStSWKoMLT3UlAwCNYtWPDr VBpyDRYrSNQ4JgG7ZZGnUXPmLW5AEePjWPQfBNA1TSMeBUSbIZKerm4DYQCmBMElMCX8KBAaTQMsSFXv JKjoYXMdTII8YDFmJQDzNNBiXZ5NUzUmDNIqJPm5KAOvJTPhEVUogt8DGINrJUVbCtMnXKDfCRPqVJVd AMqjEDUnSFZ9CbH2BIRxIFUhAE1PZlFvYNxkKWESIf i8LCufV7k2EHItAJ3NJ9Fge7HvEGpjRMFWSVlhJX9lilSnDJUwDd9JL9lNGywiEDHwKeqxDLPzHJCuEj RhNCHdClq6JUseALLnM2QfKs0cFYRpVtE4ROPvBaTaQNZvI8CpAbN7KVe0A2R2CPTmRTJsXyHoYM1FFd 1ZOaR1KLA9oNAbDy1PRovwZY9YGYJRT0JHAy== ID Date Data Source [id number] 09/01/2020 06:11:00 PM EST [facility] ([facility]) Name Value Range Interpretation Code Description Data Fabiola rce(s) Supporting Document(s) bedside glucose 139 mg/dL 70-105 Above high normal Bedside Gluco se [facility] ([facility]) ID Date Data Source [id number] 09/01/2020 06:11:00 PM EST [facility] ([facility]) Name Value Range Interpretation Code Description Data Fabiola rce(s) Supporting Document(s) bedside glucose 139 mg/dL 70-105 Above high normal Bedside Gluco se [facility] ([facility]) ID Date Data Source [id number] 09/01/2020 06:11:00 PM EST [facility] ([facility]) Name Value Range Interpretation Code Description Data Fabiola rce(s) Supporting Document(s) bedside glucose 139 mg/dL 70-105 Above high normal Bedside Gluco se [facility]) ID Date Data Source [id number] 09/01/2020 02:35:00 PM EST [facility] Name Value Range Interpretation Code Description Data Faibola rce(s) Supporting Document(s) SARS coronavirus 2 RNA [Presence] in Res piratory specimen by WILEY with probe detection NEGATIVE [facility] This lab was ordered by [facility] a nd reported by [facility]. ID Date Data Source [id number] 06/13/2020 01:30:00 PM EST [facility] ([facility]) Name Value Range Interpretation Code Description Data Fabiola rce(s) Supporting Document(s) summary final . Summary [facility] ([facility]) ID Date Data Source [id number] 06/13/2020 01:30:00 PM EST [facility] ([facility]) Name Value Range Interpretation Code Description Data Fabiola rce(s) Supporting Document(s) Hemoglobin A1c/Hemoglobin.total in Blood 9.7 % Hemoglobin a1C [facility] ([facility]) estimated average glucose 232 mg/dL 60-110 Above high norm al Estimated Average Glucose [facility] ([facility]) ID Date Data Source [id number] 06/13/2020 01:30:00 PM EST [facility] ([facility]) Name Value Range Interpretation Code Description Data Fabiola rce(s) Supporting Document(s) glucose, fasting 142 mg/dL 70-100 Above high normal Glucose, Fas ting [facility] ([facility]) blood urea nitrogen 15 mg/dL 7-18 Blood Urea Nitro gen [facility] ([facility]) glomerular filtration rate > 60.0 >56 Glomerula r Filtration Rate [facility] ([facility]) creatinine for GFR 1.02 mg/dL 0.70-1.30 Creatinine for GF R [facility] ([facility]) potassium serum 3.6 mEq/L 3.5-5.1 Potassium Serum [facility] ([facility]) chloride level 108 mEq/L 98-107 Above high normal Chloride Level [facility] ([facility]) sodium level 143 mEq/L 136-145 Sodium Level [facility] ([facility]) anion gap 9 mEq/L 8-16 Anion Gap [facility] ([facility]) AST/SGOT 26 U/L 7-37 AST/SGOT [facility] ([facility]) carbon dioxide level 26 mEq/L 21-32 Carbon Dioxide Level [facility] ([facility]) calcium level 9.1 mg/dL 8.5-10.1 Calcium Level [facility] ( [facility]) alkaline phosphatase 65 U/L 45-117 Alkaline Phosph atase [facility] ([facility]) bilirubin,total 0.1 mg/dL 0.2-1.0 Below low normal Bilirubin,tota l [facility] ([facility]) ALT/SGPT 38 U/L 12-78 ALT/SGPT [facility] ([facility]) albumin/globulin ratio Albumin/globu liz Ratio [facility] ([facility]) total protein 7.2 gm/dL 6.4-8.2 Total Protein [facility] ( [facility]) albumin 3.5 gm/dL 3.2-5.2 Albumin [facility] ([facility]) ID Date Data Source [id number] 06/13/2020 01:30:00 PM EST [facility] ([facility]) Name Value Range Interpretation Code Description Data Fabiola rce(s) Supporting Document(s) summary final . Summary [facility] ([facility]) ID Date Data Source [id number] 06/13/2020 01:30:00 PM EST [facility] ([facility]) Name Value Range Interpretation Code Description Data Fabiola rce(s) Supporting Document(s) Hemoglobin A1c/Hemoglobin.total in Blood 9.7 % Hemoglobin a1C [facility] ([facility]) estimated average glucose 232 mg/dL 60-110 Above high norm al Estimated Average Glucose [facility] ([facility]) ID Date Data Source [id number] 06/13/2020 01:30:00 PM EST [facility] ([facility]) Name Value Range Interpretation Code Description Data Fabiola rce(s) Supporting Document(s) glucose, fasting 142 mg/dL 70-100 Above high normal Glucose, Fas ting [facility] ([facility]) glomerular filtration rate > 60.0 >56 Glomerula r Filtration Rate [facility] ([facility]) blood urea nitrogen 15 mg/dL 7-18 Blood Urea Nitro gen [facility] ([facility]) creatinine for GFR 1.02 mg/dL 0.70-1.30 Creatinine for GF R [facility] ([facility]) potassium serum 3.6 mEq/L 3.5-5.1 Potassium Serum [facility] ([facility]) chloride level 108 mEq/L 98-107 Above high normal Chloride Level [facility] ([facility]) sodium level 143 mEq/L 136-145 Sodium Level [facility] ([facility]) anion gap 9 mEq/L 8-16 Anion Gap [facility] ([facility]) calcium level 9.1 mg/dL 8.5-10.1 Calcium Level [facility] ( [facility]) carbon dioxide level 26 mEq/L 21-32 Carbon Dioxide Level [facility] ([facility] alkaline phosphatase 65 U/L 45-117 Alkaline Phosph atase [facility] ([facility]) AST/SGOT 26 U/L 7-37 AST/SGOT [facility] ([facility]) ALT/SGPT 38 U/L 12-78 ALT/SGPT [facility] ([facility]) bilirubin,total 0.1 mg/dL 0.2-1.0 Below low normal Bilirubin,tota l [facility] ([facility]) total protein 7.2 gm/dL 6.4-8.2 Total Protein [facility] ( [facility]) albumin 3.5 gm/dL 3.2-5.2 Albumin [facility] ([facility]) albumin/globulin ratio Albumin/globu liz Ratio [facility] ([facility]) ID Date Data Source [id number] 06/13/2020 01:30:00 PM EST [facility] ([facility]) Name Value Range Interpretation Code Description Data Fabiola rce(s) Supporting Document(s) summary final . Summary [facility] ([facility]) ID Date Data Source [id number] 06/13/2020 01:30:00 PM EST [facility] ([facility]) Name Value Range Interpretation Code Description Data Fabiola rce(s) Supporting Document(s) Hemoglobin A1c/Hemoglobin.total in Blood 9.7 % Hemoglobin a1C [facility] ([facility]) estimated average glucose 232 mg/dL 60-110 Above high norm al Estimated Average Glucose [facility] ([facility]) ID Date Data Source [id number] 06/13/2020 01:30:00 PM EST [facility] ([facility]) Name Value Range Interpretation Code Description Data Fabiola rce(s) Supporting Document(s) glucose, fasting 142 mg/dL 70-100 Above high normal Glucose, Fas ting [facility] ([facility]) blood urea nitrogen 15 mg/dL 7-18 Blood Urea Nitro gen [facility] ([facility]) creatinine for GFR 1.02 mg/dL 0.70-1.30 Creatinine for GF R [facility] ([facility]) glomerular filtration rate > 60.0 >56 Glomerula r Filtration Rate [facility] ([facility]) sodium level 143 mEq/L 136-145 Sodium Level [facility] ([facility]) potassium serum 3.6 mEq/L 3.5-5.1 Potassium Serum [facility] ([facility]) carbon dioxide level 26 mEq/L 21-32 Carbon Dioxide Level [facility] ([facility]) chloride level 108 mEq/L 98-107 Above high normal Chloride Level [facility] ([facility]) AST/SGOT 26 U/L 7-37 AST/SGOT [facility] ([facility]) anion gap 9 mEq/L 8-16 Anion Gap [facility] ([facility]) calcium level 9.1 mg/dL 8.5-10.1 Calcium Level [facility] ( [facility]) bilirubin,total 0.1 mg/dL 0.2-1.0 Below low normal Bilirubin,tota l [facility] ([facility]) alkaline phosphatase 65 U/L 45-117 Alkaline Phosph atase [facility] ([facility]) ALT/SGPT 38 U/L 12-78 ALT/SGPT [facility] ([facility]) albumin 3.5 gm/dL 3.2-5.2 Albumin [facility] ([facility]) total protein 7.2 gm/dL 6.4-8.2 Total Protein [facility] ( [facility]) albumin/globulin ratio Albumin/globu liz Ratio [facility] ([facility]) ID Date Data Source [id number] 06/13/2020 12:57:00 PM EST [facility] ([facility]) Name Value Range Interpretation Code Description Data Fabiola rce(s) Supporting Document(s) Blood Glucose: mg/dl Blood Glucose: mg/dl [facility] ([facility]) ID Date Data Source [id number] 06/13/2020 12:57:00 PM EST [facility] ([facility]) Name Value Range Interpretation Code Description Data Fabiola rce(s) Supporting Document(s) Blood Glucose: mg/dl Blood Glucose: mg/dl [facility] ([facility]) ID Date Data Source [id number] 06/13/2020 12:57:00 PM EST [facility] ([facility]) Name Value Range Interpretation Code Description Data Fabiola rce(s) Supporting Document(s) Blood Glucose: mg/dl Blood Glucose: mg/dl [facility] ([facility]) ID Date Data Source [id number] 05/31/2020 08:40:00 AM EST [facility] ([facility]) Name Value Range Interpretation Code Description Data Fabiola rce(s) Supporting Document(s) amphetamines level urine negative negative Amphetamine s Level Urine [facility] ([facility]) benzodiazepines urine negative negative Benzodiazepine s Urine [facility] ([facility]) barbiturates urine negative negative Barbiturates Urin e [facility] ([facility]) methadone urine negative negative Methadone Urine [facility] NA ([facility]) cannabinoids urine negative negative Cannabinoids Urin e [facility] ([facility]) cocaine metabolite urine negative negative Cocaine Met abolite Urine [facility] ([facility]) opiates urine negative negative Opiates Urine [facility] ( [facility]) phencyclidine urine negative negative Phencyclidine Ur ine [facility] ([facility]) ID Date Data Source [id number] 05/31/2020 08:40:00 AM EST [facility] ([facility]) Name Value Range Interpretation Code Description Data Fabiola rce(s) Supporting Document(s) amphetamines level urine negative negative Amphetamine s Level Urine [facility] ([facility]) cocaine metabolite urine negative negative Cocaine Met abolite Urine [facility] ([facility]) benzodiazepines urine negative negative Benzodiazepine s Urine [facility] ([facility]) barbiturates urine negative negative Barbiturates Urin e [facility] ([facility]) cannabinoids urine negative negative Cannabinoids Urin e [facility] ([facility]) phencyclidine urine negative negative Phencyclidine Ur ine [facility] ([facility]) methadone urine negative negative Methadone Urine ATHE NA ([facility]) opiates urine negative negative Opiates Urine [facility] ( [facility]) ID Date Data Source [id number] 05/31/2020 08:40:00 AM EST [facility] ([facility]) Name Value Range Interpretation Code Description Data Fabiola rce(s) Supporting Document(s) amphetamines level urine negative negative Amphetamine s Level Urine [facility] ([facility]) benzodiazepines urine negative negative Benzodiazepine s Urine [facility] ([facility]) cannabinoids urine negative negative Cannabinoids Urin e [facility] ([facility]) barbiturates urine negative negative Barbiturates Urin e [facility] ([facility]) opiates urine negative negative Opiates Urine [facility] ( [facility]) cocaine metabolite urine negative negative Cocaine Met abolite Urine [facility] ([facility]) phencyclidine urine negative negative Phencyclidine Ur ine [facility] ([facility]) methadone urine negative negative Methadone Urine [facility] NA ([facility]) ID Date Data Source [id number] 05/31/2020 08:40:00 AM EST [facility] ([facility]) Name Value Range Interpretation Code Description Data Fabiola rce(s) Supporting Document(s) amphetamines level urine negative negative Amphetamine s Level Urine [facility] ([facility]) cannabinoids urine negative negative Cannabinoids Urin e [facility] ([facility]) barbiturates urine negative negative Barbiturates Urin e [facility] ([facility]) benzodiazepines urine negative negative Benzodiazepine s Urine [facility] ([facility]) cocaine metabolite urine negative negative Cocaine Met abolite Urine [facility] ([facility]) phencyclidine urine negative negative Phencyclidine Ur ine [facility] ([facility]) opiates urine negative negative Opiates Urine [facility] ( [facility]) methadone urine negative negative Methadone Urine ATH[facility]son GARCIA ([facility]) ID Date Data Source [id number] 05/31/2020 07:16:00 AM EST [facility] ([facility]) Name Value Range Interpretation Code Description Data Fabiola rce(s) Supporting Document(s) salicylate level 3.4 mg/dL 5.0-30.0 Below low normal Salicylate [place] [facility] ([facility]) ID Date Data Source [id number] 05/31/2020 07:16:00 AM EST [facility] ([facility]) Name Value Range Interpretation Code Description Data Fabiola rce(s) Supporting Document(s) ethyl alcohol (ethanol) < 0.003 0.000-0.010 Ethyl Alcoh ol (Ethanol) [facility] ([facility]) ID Date Data Source [id number] 05/31/2020 07:16:00 AM EST [facility] ([facility]) Name Value Range Interpretation Code Description Data Fabiola rce(s) Supporting Document(s) CPK creatine phosphokinase 967 U/L 39-308 Above high nor mal CPK Creatine Phosphokinase [facility] ([facility]) ID Date Data Source [id number] 05/31/2020 07:16:00 AM EST [facility] ([facility]) Name Value Range Interpretation Code Description Data Fabiola rce(s) Supporting Document(s) glucose, fasting 226 mg/dL 70-100 Above high normal Glucose, Fas ting [facility] ([facility]) blood urea nitrogen 23 mg/dL 7-18 Above high normal Blood Ure a Nitrogen [facility] ([facility]) potassium serum 4.2 mEq/L 3.5-5.1 Potassium Serum [facility] NA ([facility]) creatinine for GFR 1.10 mg/dL 0.70-1.30 Creatinine for GF R [facility] [facility] glomerular filtration rate > 60.0 >56 Glomerula r Filtration Rate [facility] ([facility] sodium level 136 mEq/L 136-145 Sodium Level [facility] ([facility]) chloride level 101 mEq/L 98-107 Chloride Level [facility] ([facility]) carbon dioxide level 25 mEq/L 21-32 Carbon Dioxide Level [facility] ([facility]) anion gap 10 mEq/L 8-16 Anion Gap [facility] ([facility]) calcium level 9.7 mg/dL 8.5-10.1 Calcium Level [facility] ( [facility]) ID Date Data Source [id number] 05/31/2020 07:16:00 AM EST [facility] ([facility]) Name Value Range Interpretation Code Description Data Fabiola rce(s) Supporting Document(s) AST/SGOT 25 U/L 7-37 AST/SGOT [facility] ([facility]) ALT/SGPT 20 U/L 12-78 ALT/SGPT [facility] ([facility]) alkaline phosphatase 62 U/L 45-117 Alkaline Phosph atase [facility] ([facility]) bilirubin,direct 0.2 mg/dL 0.0-0.2 Bilirubin,direct AT [facility]) total protein 8.4 gm/dL 6.4-8.2 Above high normal Total Protein A [facility]NA ([facility]) bilirubin,total 0.6 mg/dL 0.2-1.0 Bilirubin,total ATHE NA ([facility]) albumin/globulin ratio Albumin/globu liz Ratio [facility] ([facility]) albumin 4.2 gm/dL 3.2-5.2 Albumin [facility] ([facility]) ID Date Data Source [id number] 05/31/2020 07:16:00 AM EST [facility] ([facility]) Name Value Range Interpretation Code Description Data Fabiola rce(s) Supporting Document(s) white blood count 10.0 10 4.0-10.0 White Blood Count [facility] ([facility]) red blood count 4.88 10 4.30-6.10 Red Blood Count ATHE NA ([facility]) hematocrit 43.5 % 42.0-52.0 Hematocrit [facility] ([facility]) mean corpuscular volume 89.1 fL 80.0-96.0 Mean Corpusc ular Volume [facility] ([facility]) hemoglobin 14.2 g/dL 13.5-17.5 Hemoglobin [facility] ([facility]) red cell distribution width 12.8 % 11.5-14.5 Red Cell Distribution Width [facility] ([facility]) platelet count, automated 235 10 150-450 Platelet C ount, Automated [facility] ([facility]) mean corpuscular HGB conc 32.6 g/dL 32.0-36.5 Mean Corpu scular HGB Conc [facility] ([facility]) mean corpuscular hemoglobin 29.1 pg 27.0-33.0 Mean Cor puscular Hemoglobin [facility] ([facility]) mono % 7.4 % 0.0-5.0 Above high normal [place] % [facility] ([facility]) lymph % 18.0 % 24.0-44.0 Below low normal Lymph % [facility] ( [facility]) neutrophils % 73.6 % 36.0-66.0 Above high normal Neutrophils % A THENA ([facility]) immature granulocyte % 0.3 % 0-3.0 Immature Gran ulocyte % [facility] ([facility]) nucleated red blood cell % 0.0 % 0-0 Nucleated Red Blood Cell % [facility] ([facility]) baso % 0.4 % 0.0-1.0 Baso % [facility] ([facility]) eos % 0.3 % 0.0-3.0 Eos % [facility] ([facility]) neutrophils # 7.4 10 1.5-8.5 Neutrophils # [facility] ( [facility]) lymph # 1.8 10 1.5-5.0 Lymph # [facility] ([facility]) mono # 0.7 10 0.0-0.8 Donley # [facility] ([facility]) eos # 0.0 10 0.0-0.5 Eos # [facility] ([facility]) baso # 0.0 10 0.0-0.2 Baso # [facility] ([facility]) ID Date Data Source [id number] 05/31/2020 07:16:00 AM EST [facility] ([facility]) Name Value Range Interpretation Code Description Data Fabiola rce(s) Supporting Document(s) thyroid stimulating hormone 0.474 uIU/mL 0.358-3.740 Thyroid Stimulating Hormone [facility] ([facility]) ID Date Data Source [id number] 05/31/2020 07:16:00 AM EST [facility] ([facility]) Name Value Range Interpretation Code Description Data Fabiola rce(s) Supporting Document(s) acetaminophen level < 2.0 10.0-30.0 Below low normal Acetaminop hen Level [facility] ([facility]) ID Date Data Source [id number] 05/31/2020 07:16:00 AM EST [facility] ([facility]) Name Value Range Interpretation Code Description Data Fabiola rce(s) Supporting Document(s) salicylate level 3.4 mg/dL 5.0-30.0 Below low normal Salicylate [place] dar[place] [facility] ([facility]) ID Date Data Source [id number] 05/31/2020 07:16:00 AM EST [facility] ([facility]) Name Value Range Interpretation Code Description Data Fabiola rce(s) Supporting Document(s) ethyl alcohol (ethanol) < 0.003 0.000-0.010 Ethyl Alcoh ol (Ethanol) [facility] ([facility]) ID Date Data Source [id number] 05/31/2020 07:16:00 AM EST [facility] ([facility]) Name Value Range Interpretation Code Description Data Fabiola rce(s) Supporting Document(s) CPK creatine phosphokinase 967 U/L 39-308 Above high nor mal CPK Creatine Phosphokinase [facility] ([facility]) ID Date Data Source [id number] 05/31/2020 07:16:00 AM EST [facility] ([facility]) Name Value Range Interpretation Code Description Data Fabiola rce(s) Supporting Document(s) glucose, fasting 226 mg/dL 70-100 Above high normal Glucose, Fas ting [facility] ([facility]) creatinine for GFR 1.10 mg/dL 0.70-1.30 Creatinine for GF R [facility] ([facility]) glomerular filtration rate > 60.0 >56 Glomerula r Filtration Rate [facility] ([facility]) sodium level 136 mEq/L 136-145 Sodium Level [facility] ([facility]) blood urea nitrogen 23 mg/dL 7-18 Above high normal Blood Ure a Nitrogen [facility] ([facility]) carbon dioxide level 25 mEq/L 21-32 Carbon Dioxide Level [facility] ([facility]) anion gap 10 mEq/L 8-16 Anion Gap [facility] ([facility]) potassium serum 4.2 mEq/L 3.5-5.1 Potassium [facility] ([facility] chloride level 101 mEq/L 98-107 Chloride Level [facility] ([facility]) calcium level 9.7 mg/dL 8.5-10.1 Calcium Level [facility] ( [facility]) ID Date Data Source [id number] 05/31/2020 07:16:00 AM EST [facility] ([facility]) Name Value Range Interpretation Code Description Data Fabiola rce(s) Supporting Document(s) AST/SGOT 25 U/L 7-37 AST/SGOT [facility] ([facility]) alkaline phosphatase 62 U/L 45-117 Alkaline Phosph atase [facility] ([facility]) bilirubin,total 0.6 mg/dL 0.2-1.0 Bilirubin,total ATHE ([facility]) bilirubin,direct 0.2 mg/dL 0.0-0.2 Bilirubin,direct AT [facility]) ALT/SGPT 20 U/L 12-78 ALT/SGPT [facility] ([facility]) albumin 4.2 gm/dL 3.2-5.2 Albumin [facility] ([facility]) total protein 8.4 gm/dL 6.4-8.2 Above high normal Total Protein A THENA ([facility]) albumin/globulin ratio Albumin/globu liz Ratio [facility] ([facility]) ID Date Data Source [id number] 05/31/2020 07:16:00 AM EST [facility] ([facility]) Name Value Range Interpretation Code Description Data Fabiola rce(s) Supporting Document(s) red blood count 4.88 10 4.30-6.10 Red Blood Count ATHE NA ([facility]) white blood count 10.0 10 4.0-10.0 White Blood Count [facility] ([facility]) hemoglobin 14.2 g/dL 13.5-17.5 Hemoglobin [facility] ([facility]) hematocrit 43.5 % 42.0-52.0 Hematocrit [facility] ([facility]) mean corpuscular volume 89.1 fL 80.0-96.0 Mean Corpusc ular Volume [facility] ([facility]) red cell distribution width 12.8 % 11.5-14.5 Red Cell Distribution Width [facility] ([facility]) platelet count, automated 235 10 150-450 Platelet C ount, Automated [facility] ([facility]) mean corpuscular hemoglobin 29.1 pg 27.0-33.0 Mean Cor puscular Hemoglobin [facility] ([facility]) mean corpuscular HGB conc 32.6 g/dL 32.0-36.5 Mean Corpu scular HGB Conc [facility] ([facility]) neutrophils % 73.6 % 36.0-66.0 Above high normal Neutrophils % A THENA ([facility]) lymph % 18.0 % 24.0-44.0 Below low normal Lymph % [facility] ( [facility]) mono % 7.4 % 0.0-5.0 Above high normal [place] % [facility] ([facility]) eos % 0.3 % 0.0-3.0 Eos % [facility] ([facility]) baso % 0.4 % 0.0-1.0 Baso % [facility] ([facility]) nucleated red blood cell % 0.0 % 0-0 Nucleated Red Blood Cell % [facility] ([facility]) immature granulocyte % 0.3 % 0-3.0 Immature Gran ulocyte % [facility] ([facility]) mono # 0.7 10 0.0-0.8 Donley # [facility] ([facility]) lymph # 1.8 10 1.5-5.0 Lymph # [facility] ([facility]) neutrophils # 7.4 10 1.5-8.5 Neutrophils # [facility] ( [facility]) eos # 0.0 10 0.0-0.5 Eos # [facility] ([facility]) baso # 0.0 10 0.0-0.2 Baso # [facility] ([facility]) ID Date Data Source [id number] 05/31/2020 07:16:00 AM EST [facility] ([facility]) Name Value Range Interpretation Code Description Data Fabiola rce(s) Supporting Document(s) thyroid stimulating hormone 0.474 uIU/mL 0.358-3.740 Thyroid Stimulating Hormone [facility] ([facility]) ID Date Data Source [id number] 05/31/2020 07:16:00 AM EST [facility] ([facility]) Name Value Range Interpretation Code Description Data Fabiola rce(s) Supporting Document(s) acetaminophen level < 2.0 10.0-30.0 Below low normal Acetaminop hen Level [facility] ([facility]) ID Date Data Source [id number] 05/31/2020 07:16:00 AM EST [facility] ([facility]) Name Value Range Interpretation Code Description Data Fabiola rce(s) Supporting Document(s) salicylate level 3.4 mg/dL 5.0-30.0 Below low normal Salicylate [place] [facility] ([facility]) ID Date Data Source [id number] 05/31/2020 07:16:00 AM EST [facility] ([facility]) Name Value Range Interpretation Code Description Data Fabiola rce(s) Supporting Document(s) ethyl alcohol (ethanol) < 0.003 0.000-0.010 Ethyl Alcoh ol (Ethanol) [facility] ([facility]) ID Date Data Source [id number] 05/31/2020 07:16:00 AM EST [facility] ([facility]) Name Value Range Interpretation Code Description Data Fabiola rce(s) Supporting Document(s) CPK creatine phosphokinase 967 U/L 39-308 Above high nor mal CPK Creatine Phosphokinase [facility] ([facility]) ID Date Data Source [id number] 05/31/2020 07:16:00 AM EST [facility] ([facility]) Name Value Range Interpretation Code Description Data Fabiola rce(s) Supporting Document(s) glucose, fasting 226 mg/dL 70-100 Above high normal Glucose, Fas ting [facility] ([facility]) blood urea nitrogen 23 mg/dL 7-18 Above high normal Blood Ure a Nitrogen [facility] ([facility]) creatinine for GFR 1.10 mg/dL 0.70-1.30 Creatinine for GF R [facility] ([facility]) glomerular filtration rate > 60.0 >56 Glomerula r Filtration Rate [facility] ([facility]) potassium serum 4.2 mEq/L 3.5-5.1 Potassium Serum ATHE NA ([facility]) sodium level 136 mEq/L 136-145 Sodium Level [facility] ([facility]) anion gap 10 mEq/L 8-16 Anion Gap [facility] ([facility]) carbon dioxide level 25 mEq/L 21-32 Carbon Dioxide Level [facility] ([facility]) chloride level 101 mEq/L 98-107 Chloride Level [facility] ([facility]) calcium level 9.7 mg/dL 8.5-10.1 Calcium Level [facility] ( [facility]) ID Date Data Source [id number] 05/31/2020 07:16:00 AM EST [facility] ([facility]) Name Value Range Interpretation Code Description Data Fabiola rce(s) Supporting Document(s) ALT/SGPT 20 U/L 12-78 ALT/SGPT [facility] ([facility]) AST/SGOT 25 U/L 7-37 AST/SGOT [facility] ([facility]) alkaline phosphatase 62 U/L 45-117 Alkaline Phosph atase [facility] ([facility]) bilirubin,direct 0.2 mg/dL 0.0-0.2 Bilirubin,direct AT [facility] ([facility]) bilirubin,total 0.6 mg/dL 0.2-1.0 Bilirubin,total ATHE NA ([facility]) total protein 8.4 gm/dL 6.4-8.2 Above high normal Total Protein A THENA ([facility]) albumin/globulin ratio Albumin/globu liz Ratio [facility] ([facility]) albumin 4.2 gm/dL 3.2-5.2 Albumin [facility] ([facility]) ID Date Data Source [id number] 05/31/2020 07:16:00 AM EST [facility] ([facility]) Name Value Range Interpretation Code Description Data Fabiola rce(s) Supporting Document(s) white blood count 10.0 10 4.0-10.0 White Blood Count [facility] ([facility]) red blood count 4.88 10 4.30-6.10 Red Blood Count ATHE NA ([facility]) hematocrit 43.5 % 42.0-52.0 Hematocrit [facility] ([facility]) hemoglobin 14.2 g/dL 13.5-17.5 Hemoglobin [facility] ([facility]) mean corpuscular volume 89.1 fL 80.0-96.0 Mean Corpusc ular Volume [facility] ([facility]) mean corpuscular hemoglobin 29.1 pg 27.0-33.0 Mean Cor puscular Hemoglobin [facility] ([facility]) mean corpuscular HGB conc 32.6 g/dL 32.0-36.5 Mean Corpu scular HGB Conc [facility] ([facility]) red cell distribution width 12.8 % 11.5-14.5 Red Cell Distribution Width [facility] ([facility]) neutrophils % 73.6 % 36.0-66.0 Above high normal Neutrophils % A THENA ([facility]) lymph % 18.0 % 24.0-44.0 Below low normal Lymph % [facility] ( [facility]) platelet count, automated 235 10 150-450 Platelet C ount, Automated [facility] ([facility]) eos % 0.3 % 0.0-3.0 Eos % [facility] ([facility]) mono % 7.4 % 0.0-5.0 Above high normal [place] % [facility] ([facility]) baso % 0.4 % 0.0-1.0 Baso % [facility] ([facility]) lymph # 1.8 10 1.5-5.0 Lymph # [facility] ([facility]) nucleated red blood cell % 0.0 % 0-0 Nucleated Red Blood Cell % [facility] ([facility]) immature granulocyte % 0.3 % 0-3.0 Immature Gran ulocyte % [facility] ([facility]) neutrophils # 7.4 10 1.5-8.5 Neutrophils # [facility] ( [facility]) eos # 0.0 10 0.0-0.5 Eos # [facility] ([facility]) baso # 0.0 10 0.0-0.2 Baso # [facility] ([facility]) mono # 0.7 10 0.0-0.8 Donley # [facility] ([facility]) ID Date Data Source [id number] 05/31/2020 07:16:00 AM EST [facility] ([facility]) Name Value Range Interpretation Code Description Data Fabiola rce(s) Supporting Document(s) thyroid stimulating hormone 0.474 uIU/mL 0.358-3.740 Thyroid Stimulating Hormone [facility] ([facility]) ID Date Data Source [id number] 05/31/2020 07:16:00 AM EST [facility] ([facility]) Name Value Range Interpretation Code Description Data Fabiola rce(s) Supporting Document(s) acetaminophen level < 2.0 10.0-30.0 Below low normal Acetaminop hen Level [facility] ([facility]) ID Date Data Source [id number] 05/31/2020 07:16:00 AM EST [facility] ([facility]) Name Value Range Interpretation Code Description Data Fabiola rce(s) Supporting Document(s) salicylate level 3.4 mg/dL 5.0-30.0 Below low normal Salicylate [place] [facility] ([facility]) ID Date Data Source [id number] 05/31/2020 07:16:00 AM EST [facility] ([facility]) Name Value Range Interpretation Code Description Data Fabiola rce(s) Supporting Document(s) ethyl alcohol (ethanol) < 0.003 0.000-0.010 Ethyl Alcoh ol (Ethanol) [facility] ([facility]) ID Date Data Source [id number] 05/31/2020 07:16:00 AM EST [facility] ([facility]) Name Value Range Interpretation Code Description Data Fabiola rce(s) Supporting Document(s) CPK creatine phosphokinase 967 U/L 39-308 Above high nor mal CPK Creatine Phosphokinase [facility] ([facility]) ID Date Data Source [id number] 05/31/2020 07:16:00 AM EST [facility]) Name Value Range Interpretation Code Description Data Fabiola rce(s) Supporting Document(s) glucose, fasting 226 mg/dL 70-100 Above high normal Glucose, Fas ting [facility] ([facility]) creatinine for GFR 1.10 mg/dL 0.70-1.30 Creatinine for GF R [facility] ([facility]) sodium level 136 mEq/L 136-145 Sodium Level [facility] ([facility]) blood urea nitrogen 23 mg/dL 7-18 Above high normal Blood Ure a Nitrogen [facility] ([facility]) glomerular filtration rate > 60.0 >56 Glomerula r Filtration Rate [facility] ([facility]) potassium serum 4.2 mEq/L 3.5-5.1 Potassium Serum ATHE NA ([facility]) anion gap 10 mEq/L 8-16 Anion Gap [facility] ([facility]) chloride level 101 mEq/L 98-107 Chloride Level [facility] ([facility]) carbon dioxide level 25 mEq/L 21-32 Carbon Dioxide Level [facility] ([facility]) calcium level 9.7 mg/dL 8.5-10.1 Calcium Level [facility] ( [facility]) ID Date Data Source [id number] 05/31/2020 07:16:00 AM EST [facility] ([facility]) Name Value Range Interpretation Code Description Data Fabiola rce(s) Supporting Document(s) ALT/SGPT 20 U/L 12-78 ALT/SGPT [facility] ([facility]) AST/SGOT 25 U/L 7-37 AST/SGOT [facility] ([facility]) bilirubin,total 0.6 mg/dL 0.2-1.0 Bilirubin,total ATHE NA ([facility]) bilirubin,direct 0.2 mg/dL 0.0-0.2 Bilirubin,direct AT [facility]) alkaline phosphatase 62 U/L 45-117 Alkaline Phosph atase [facility] ([facility]) albumin/globulin ratio Albumin/globu liz Ratio [facility] ([facility]) total protein 8.4 gm/dL 6.4-8.2 Above high normal Total Protein A THENA ([facility]) albumin 4.2 gm/dL 3.2-5.2 Albumin [facility] ([facility]) ID Date Data Source [id number] 05/31/2020 07:16:00 AM EST [facility] ([facility]) Name Value Range Interpretation Code Description Data Fabiola rce(s) Supporting Document(s) red blood count 4.88 10 4.30-6.10 Red Blood Count ATHE NA ([facility]) white blood count 10.0 10 4.0-10.0 White Blood Count [facility] ([facility]) hemoglobin 14.2 g/dL 13.5-17.5 Hemoglobin M[facility]IR ([facility]) hematocrit 43.5 % 42.0-52.0 Hematocrit [facility] ([facility]) mean corpuscular volume 89.1 fL 80.0-96.0 Mean Corpusc ular Volume [facility]IR ([facility]) red cell distribution width 12.8 % 11.5-14.5 Red Cell Distribution Width [facility] ([facility]) mean corpuscular HGB conc 32.6 g/dL 32.0-36.5 Mean Corpu scular HGB Conc [facility] ([facility]) mean corpuscular hemoglobin 29.1 pg 27.0-33.0 Mean Cor puscular Hemoglobin [facility]IR ([facility]) platelet count, automated 235 10 150-450 Platelet C ount, Automated [facility] ([facility]) mono % 7.4 % 0.0-5.0 Above high normal [place] % [facility] ([facility]) neutrophils % 73.6 % 36.0-66.0 Above high normal Neutrophils % A THENA ([facility]) lymph % 18.0 % 24.0-44.0 Below low normal Lymph % [facility] ( [facility]) eos % 0.3 % 0.0-3.0 Eos % [facility] ([facility]) immature granulocyte % 0.3 % 0-3.0 Immature Gran ulocyte % [facility] ([facility]) baso % 0.4 % 0.0-1.0 Baso % [facility] ([facility]) mono # 0.7 10 0.0-0.8 Donley # M[facility]IR ([facility]) neutrophils # 7.4 10 1.5-8.5 Neutrophils # M[facility]IR ( [facility]) nucleated red blood cell % 0.0 % 0-0 Nucleated Red Blood Cell % [facility] ([facility]) lymph # 1.8 10 1.5-5.0 Lymph # [facility]IR ([facility]) eos # 0.0 10 0.0-0.5 Eos # [facility] ([facility]) baso # 0.0 10 0.0-0.2 Baso # [facility] ([facility]) ID Date Data Source [id number] 05/31/2020 07:16:00 AM EST [facility] ([facility]) Name Value Range Interpretation Code Description Data Fabiola rce(s) Supporting Document(s) thyroid stimulating hormone 0.474 uIU/mL 0.358-3.740 Thyroid Stimulating Hormone [facility] ([facility]) ID Date Data Source [id number] 05/31/2020 07:16:00 AM EST [facility] ([facility]) Name Value Range Interpretation Code Description Data Fabiola rce(s) Supporting Document(s) acetaminophen level < 2.0 10.0-30.0 Below low normal Acetaminop hen Level [facility] ([facility]) Procedure Social History Code Duration Value Status Description Data Source(s ) Smoking 04/15/2021 12:00:00 AM EDT Unknown if ever smoked comp leted Unknown if ever smoked [facility] ([facility]) Smoking 03/21/2021 12:00:00 AM EDT Unknown if ever smoked comp leted Unknown if ever smoked [facility] ([facility]) Alcohol intake 03/02/2021 12:00:00 AM EDT Ex-drinker (finding) comp leted Ex- drinker (finding) [facility] Tobacco use and exposure 03/02/2021 12:00:00 AM EDT Never used co mpleted Never used [facility] Cigarette pack-years 03/02/2021 12:00:00 AM EDT UNK completed [facility] Cigarettes smoked current (pack per day) - Reported 03/02/20 12:00:00 AM EDT UNK completed [facility] Smoking 03/02/2021 12:00:00 AM EDT Current every day smoker co mpleted Current every day smoker [facility] Smoking 02/26/2021 12:00:00 AM EDT Unknown if ever smoked comp leted Unknown if ever smoked [facility] ([facility]) Smoking 01/31/2021 12:00:00 AM EDT Unknown if ever smoked comp leted Unknown if ever smoked [facility] ([facility]) Smoking 12/13/2020 12:00:00 AM EDT Unknown if ever smoked comp leted Unknown if ever smoked [facility] ([facility]) Smoking 11/22/2020 12:00:00 AM EDT Unknown if ever smoked comp leted Unknown if ever smoked [facility] ([facility]) Smoking 10/18/2020 12:00:00 AM EDT Unknown if ever smoked comp leted Unknown if ever smoked [facility] ([facility]) Smoking 10/08/2020 12:00:00 AM EDT Unknown if ever smoked comp leted Unknown if ever smoked [facility] ([facility]) Smoking 10/01/2020 12:00:00 AM EDT Unknown if ever smoked comp leted Unknown if ever smoked [facility] ([facility]) Smoking 08/27/2020 12:00:00 AM EST Unknown if ever smoked comp leted Unknown if ever smoked [facility] ([facility]) Smoking 08/03/2020 12:00:00 AM EST Unknown if ever smoked comp leted Unknown if ever smoked [facility] ([facility]) Smoking 07/10/2020 12:00:00 AM EST Unknown if ever smoked comp leted Unknown if ever smoked [facility] ([facility]) Smoking 06/14/2020 12:00:00 AM EST Unknown if ever smoked comp leted Unknown if ever smoked [facility] ([facility]) Smoking 06/12/2020 12:00:00 AM EST Unknown if ever smoked comp leted Unknown if ever smoked [facility] ([facility] Smoking 04/24/2020 12:00:00 AM EDT Unknown if ever smoked comp leted Unknown if ever smoked [facility] ([facility]) Smoking 04/09/2020 12:00:00 AM EDT Unknown if ever smoked comp leted Unknown if ever smoked [facility] ([facility]) Smoking 04/02/2020 12:00:00 AM EDT Unknown if ever smoked comp leted Unknown if ever smoked [facility] ([facility]) Vital Signs ID Date Data Source UNK Name Value Range Interpretation Code Description Data Source(s) Systolic blood pressure 110 mm[Hg] 110 mm[Hg] A THENA ([facility]) Diastolic blood pressure 82 mm[Hg] 82 mm[Hg] MARTIR ([facility]) Body height 66 [in_i] 66 [in_i] MARTIR ([facility]) Diastolic blood pressure 82 mm[Hg] 82 mm[Hg] MARTIR ([facility]) Body height 66 [in_i] 66 [in_i] MARTIR ([facility]) Systolic blood pressure 110 mm[Hg] 110 mm[Hg] A THENA ([facility]) Diastolic blood pressure 82 mm[Hg] 82 mm[Hg] MARTIR ([facility]) Body height 66 [in_i] 66 [in_i] MARTIR ([facility]) Systolic blood pressure 110 mm[Hg] 110 mm[Hg] A THENA ([facility]) Diastolic blood pressure 70 mm[Hg] 70 mm[Hg] MARTIR ([facility]) Body height 62 [in_i] 62 [in_i] MARTIR ([facility]) Body mass index (BMI) [Ratio] 30.6 kg/m2 30.6 k g/m2 MARTIR ([facility]) Systolic blood pressure 104 mm[Hg] 104 mm[Hg] A THENA ([facility]) Body weight 2676 [oz_av] 2676 [oz_av] MARTIR ([facility]) Diastolic blood pressure 79 mm[Hg] 79 mm[Hg] MARTIR ([facility]) Body height 66 [in_i] 66 [in_i] MARTIR ([facility]) Systolic blood pressure 124 mm[Hg] 124 mm[Hg] A THENA ([facility]) Diastolic blood pressure 79 mm[Hg] 79 mm[Hg] MARTIR ([facility]) Body height 66 [in_i] 66 [in_i] MARTIR ([facility]) Systolic blood pressure 124 mm[Hg] 124 mm[Hg] A THENA ([facility]) Diastolic blood pressure 79 mm[Hg] 79 mm[Hg] MARTIR ([facility]) Body height 66 [in_i] 66 [in_i] MARTIR ([facility]) Systolic blood pressure 124 mm[Hg] 124 mm[Hg] A THENA ([facility]) Diastolic blood pressure 79 mm[Hg] 79 mm[Hg] MARTIR ([facility]) Body height 66 [in_i] 66 [in_i] MARTIR ([facility]) Systolic blood pressure 124 mm[Hg] 124 mm[Hg] A THENA ([facility]) Diastolic blood pressure 74 mm[Hg] 74 mm[Hg] MARTIR ([facility]) Body height 66 [in_i] 66 [in_i] MARTIR ([facility]) Systolic blood pressure 112 mm[Hg] 112 mm[Hg] A THENA ([facility]) Body mass index (BMI) [Ratio] 27.1 kg/m2 27.1 k g/m2 MARTIR ([facility]) Body weight 167.6 [lb_av] 167.6 [lb_av] MARTIR ([facility]) Diastolic blood pressure 74 mm[Hg] 74 mm[Hg] MARTIR ([facility]) Body height 66 [in_i] 66 [in_i] MARTIR ([facility]) Body mass index (BMI) [Ratio] 27.1 kg/m2 27.1 k g/m2 MARTIR ([facility]) Systolic blood pressure 112 mm[Hg] 112 mm[Hg] A THENA ([facility]) Body weight 167.6 [lb_av] 167.6 [lb_av] MARTIR ([facility]) Diastolic blood pressure 74 mm[Hg] 74 mm[Hg] MARTIR ([facility]) Body height 66 [in_i] 66 [in_i] MARTIR ([facility]) Body mass index (BMI) [Ratio] 27.1 kg/m2 27.1 k g/m2 MARTIR ([facility]) Systolic blood pressure 112 mm[Hg] 112 mm[Hg] A THENA ([facility]) Body weight 167.6 [lb_av] 167.6 [lb_av] MARTIR ([facility]) Diastolic blood pressure 74 mm[Hg] 74 mm[Hg] MARTIR ([facility]) Body height 66 [in_i] 66 [in_i] MARTIR ([facility]) Body mass index (BMI) [Ratio] 27.1 kg/m2 27.1 k g/m2 MARTIR ([facility]) Systolic blood pressure 112 mm[Hg] 112 mm[Hg] A THENA ([facility]) Body weight 167.6 [lb_av] 167.6 [lb_av] MARTIR ([facility]) Diastolic blood pressure 74 mm[Hg] 74 mm[Hg] MARTIR ([facility]) Body height 66 [in_i] 66 [in_i] MARTIR ([facility]) Body mass index (BMI) [Ratio] 27.1 kg/m2 27.1 k g/m2 MARTIR ([facility]) Systolic blood pressure 112 mm[Hg] 112 mm[Hg] A THENA ([facility]) Body weight 167.6 [lb_av] 167.6 [lb_av] MARTIR ([facility]) Diastolic blood pressure 66 mm[Hg] 66 mm[Hg] MARTIR ([facility]) Body height 62 [in_i] 62 [in_i] MARTIR ([facility]) Body mass index (BMI) [Ratio] 30.4 kg/m2 30.4 k g/m2 MARTIR ([facility]) Systolic blood pressure 111 mm[Hg] 111 mm[Hg] A THENA ([facility]) Body weight 2656 [oz_av] 2656 [oz_av] MARTIR ([facility]) Diastolic blood pressure 66 mm[Hg] 66 mm[Hg] MARTIR ([facility]) Body height 62 [in_i] 62 [in_i] MARTIR ([facility]) Body mass index (BMI) [Ratio] 30.4 kg/m2 30.4 k g/m2 MARTIR ([facility]) Systolic blood pressure 111 mm[Hg] 111 mm[Hg] A THENA ([facility]) Body weight 2656 [oz_av] 2656 [oz_av] MARTIR ([facility]) Body height 0.00 in Normal (applies to non-numeric resu lts) 0.00 in [facility] ([facility]) Body weight Measured 0.00 lbs Normal (applies to n on-numeric results) 0.00 lbs [facility] ([facility]) Body mass index (BMI) [Ratio] 0.00 kg/m2 No rmal (applies to non-numeric results) 0.00 kg/m2 [facility]) Systolic blood pressure 0 mm[Hg] Normal (applies t o non-numeric results) 0 mm[Hg] [facility] ([facility]) Diastolic blood pressure 0 mm[Hg] Normal (applies to non-numeric results) 0 mm[Hg] [facility] ([facility]) Body height 0.00 in Normal (applies to non-numeric resu lts) 0.00 in [facility] ([facility]) Body weight Measured 0.00 lbs Normal (applies to n on-numeric results) 0.00 lbs [facility] ([facility]) Body mass index (BMI) [Ratio] 0.00 kg/m2 No rmal (applies to non-numeric results) 0.00 kg/m2 [facility] ([facility]) Systolic blood pressure 0 mm[Hg] Normal (applies t o non-numeric results) 0 mm[Hg] [facility] ([facility]) Diastolic blood pressure 0 mm[Hg] Normal (applies to non-numeric results) 0 mm[Hg] [facility] ([facility]) Diastolic blood pressure 58 mm[Hg] 58 mm[Hg] MARTIR ([facility]) Body height 62 [in_i] 62 [in_i] MARTIR ([facility]) Body mass index (BMI) [Ratio] 32.3 kg/m2 32.3 k g/m2 MARTIR ([facility]) Systolic blood pressure 93 mm[Hg] 93 mm[Hg] [facility] Body weight 2822 [oz_av] 2822 [oz_av] MARTIR ([facility]) Diastolic blood pressure 58 mm[Hg] 58 mm[Hg] MARTIR ([facility]) Body height 62 [in_i] 62 [in_i] MARTIR ([facility]) Body mass index (BMI) [Ratio] 32.3 kg/m2 32.3 k g/m2 MARTIR ([facility]) Systolic blood pressure 93 mm[Hg] 93 mm[Hg] A THENA ([facility]) Body weight 2822 [oz_av] 2822 [oz_av] MARTIR ([facility]) Diastolic blood pressure 58 mm[Hg] 58 mm[Hg] MARTIR ([facility]) Body height 62 [in_i] 62 [in_i] MARTIR ([facility]) Body mass index (BMI) [Ratio] 32.3 kg/m2 32.3 k g/m2 MARTIR ([facility]) Systolic blood pressure 93 mm[Hg] 93 mm[Hg] A THENA ([facility]) Body weight 2822 [oz_av] 2822 [oz_av] MARTIR ([facility]) Diastolic blood pressure 58 mm[Hg] 58 mm[Hg] MARTIR ([facility]) Body height 62 [in_i] 62 [in_i] MARTIR ([facility]) Body mass index (BMI) [Ratio] 32.3 kg/m2 32.3 k g/m2 MARTIR ([facility]) Systolic blood pressure 93 mm[Hg] 93 mm[Hg] A [facility] ([facility]) Body weight 2822 [oz_av] 2822 [oz_av] MARTIR ([facility]) Body height 0.00 in Normal (applies to non-numeric resu lts) 0.00 in [facility] ([facility]) Body weight Measured 0.00 lbs Normal (applies to n on-numeric results) 0.00 lbs [facility] ([facility]) Body mass index (BMI) [Ratio] 0.00 kg/m2 No rmal (applies to non-numeric results) 0.00 kg/m2 [facility] ([facility]) Systolic blood pressure 0 mm[Hg] Normal (applies t o non-numeric results) 0 mm[Hg] [facility] ([facility]) Diastolic blood pressure 0 mm[Hg] Normal (applies to non-numeric results) 0 mm[Hg] [facility] ([facility]) Body height 0.00 in Normal (applies to non-numeric resu lts) 0.00 in [facility] ([facility]) Body weight Measured 0.00 lbs Normal (applies to n on-numeric results) 0.00 lbs [facility] ([facility]) Body mass index (BMI) [Ratio] 0.00 kg/m2 No rmal (applies to non-numeric results) 0.00 kg/m2 [facility] ([facility]) Systolic blood pressure 0 mm[Hg] Normal (applies t o non-numeric results) 0 mm[Hg] [facility] ([facility]) Diastolic blood pressure 0 mm[Hg] Normal (applies to non-numeric results) 0 mm[Hg] [facility] ([facility]) ID Date Data Source [id number] 03/06/2021 10:25:59 PM EDT [facility] Name Value Range Interpretation Code Description Data Source(s) TRANSFER FROM Other Facility Other Facility [facility] ID Date Data Source [id number] 10/30/2020 11:15:23 AM EDT [facility] Name Value Range Interpretation Code Description Data Source(s) Chief complaint - Reported hypotension hypotens [facility] Chief complaint - Reported hypotension hypotens [facility] ID Date Data Source [id number] 11/06/2020 02:27:21 PM [facility] Name Value Range Interpretation Code Description Data Source(s) Chief complaint - Reported psych transfer psych transfer [facility] Chief complaint - Reported psych transfer psych transfer [facility] Patient Treatment Plan of Care Planned Activity Planned Date Details Description Data Source (s) Nicotine 2 MG Oral Lozenge 03/06/2021 12:00:00 AM [facility] dextrose 50 % IV solution 25 mL 03/02/2021 07:12:16 PM [facility] Glucagon 1 MG Injection 03/02/2021 07:12:16 PM [facility] Glucose 0.417 MG/MG Oral Gel 03/02/2021 07:12:16 PM [facility] Acetaminophen 325 MG Oral Tablet 03/02/2021 07:02:17 PM [facility] 24 HR Metformin hydrochloride 500 MG Extended Release Oral Tablet 10/16/2014 12:00:00 AM [facility] Trazodone Hydrochloride 100 MG Oral Tablet 09/08/2014 12:00:00 AM E [facility] quetiapine 100 MG Oral Tablet 09/08/2014 12:00:00 AM [facility] 24 HR Glipizide 2.5 MG Extended Release Oral Tablet 01/21/20 12:00:00 AM [facility] Cholecalciferol 2000 UNT Oral Capsule MARTIR ([facility]) Trazodone Hydrochloride 50 MG Oral Tablet MARTIR ([facility]) Trazodone Hydrochloride 100 MG Oral Tablet MARTIR ([facility]) tramadol hydrochloride 50 MG Oral Tablet MARTIR ([facility]) tizanidine 2 MG Oral Tablet MARTIR ([facility]) Steglatro 5 mg tablet MARTIR ([facility]) Steglatro 15 mg tablet ATHEN A ([facility]) Risperidone 4 MG Oral Tablet MARTIR ([facility]) quetiapine 400 MG Oral Tablet MARTIR ([facility]) pen needles mis [id number] [facility] [place] ([facility]) OneTouch Ultra2 Meter kit AT [facility] ([facility]) OneTouch Ultra2 Meter USE DIRECTED TO TEST BLOOD SUGAR THREE TIMES DAILY MARTIR ([facility]) OneTouch Ultra Blue Test Strip MARTIR ([facility]) Nicotine 2 MG Chewing Gum AT [place] ([facility]) Naltrexone hydrochloride 50 MG Oral Tablet MARTIR ([facility]) Metformin hydrochloride 850 MG Oral Tablet MARTIR ([facility]) meloxicam 15 MG Oral Tablet MARTIR ([facility]) empagliflozin 25 MG Oral Tablet [Jardiance] MARTIR ([facility]) insulin syrg mis 1ml/29g [facility] [place] ([facility]) insulin syrg mis 0.5/31g [place] [place] ([facility]) insulin syrg mis 1ml/29g [place] [place] ([facility]) insulin syrg mis 0.5/31g [place] ([facility]) gabapentin 400 MG Oral Capsule MARTIR ([facility]) Cephalexin 500 MG Oral Capsule MARTIR ([facility]) celecoxib 200 MG Oral Capsule MARTIR ([facility]) Amoxicillin 500 MG Oral Capsule MARTIR ([facility]) Acetaminophen 300 MG / Codeine Phosphate 30 MG Oral Tablet MARTIR ([facility]) Cholecalciferol 2000 UNT Oral Capsule MARTIR ([facility]) Trazodone Hydrochloride 50 MG Oral Tablet MARTIR ([facility]) Trazodone Hydrochloride 100 MG Oral Tablet MARTIR ([facility]) tramadol hydrochloride 50 MG Oral Tablet MARTIR ([facility]) tizanidine 2 MG Oral Tablet MARTIR ([facility]) Steglatro 5 mg tablet MARTIR ([facility]) Steglatro 15 mg tablet ATHEN A ([facility]) Risperidone 4 MG Oral Tablet MARTIR ([facility] quetiapine 400 MG Oral Tablet MARTIR ([facility]) pen needles mis [id number] [place] ([facility]) OneTouch Ultra2 Meter kit AT [facility] ([facility]) OneTouch Ultra2 Meter USE DIRECTED TO TEST BLOOD SUGAR THREE TIMES DAILY MARTIR ([facility]) OneTouch Ultra Blue Test Strip MARTIR ([facility]) Nicotine 2 MG Chewing Gum AT [facility] ([facility]) Naltrexone hydrochloride 50 MG Oral Tablet MARTIR ([facility]) Metformin hydrochloride 850 MG Oral Tablet MARTIR ([facility]) meloxicam 15 MG Oral Tablet MARTIR ([facility]) empagliflozin 25 MG Oral Tablet [Jardiance] MARTIR ([facility]) insulin syrg mis 1ml/29g [facility] [place] ([facility]) insulin syrg mis 0.5/31g [place] [place] ([facility]) gabapentin 400 MG Oral Capsule MARTIR ([facility]) Cephalexin 500 MG Oral Capsule MARTIR ([facility]) celecoxib 200 MG Oral Capsule MARTIR ([facility]) Amoxicillin 500 MG Oral Capsule MARTIR ([facility]) Acetaminophen 300 MG / Codeine Phosphate 30 MG Oral Tablet MARTIR ([facility]) Trazodone Hydrochloride 50 MG Oral Tablet [facility] ([facility]) Steglatro 5 mg tablet TAKE ONE TABLET BY MOUTH ONCE DAILY MARTIR ([facility]) quetiapine 200 MG Oral Tablet [facility] ([facility]) Nicotine 2 MG Chewing Gum AT [place] ([facility]) Metformin hydrochloride 850 MG Oral Tablet MARTIR ([facility]) meloxicam 15 MG Oral Tablet M[facility]IR ([facility]) Levofloxacin 500 MG Oral Tablet M[facility]IR ([facility]) Ibuprofen 800 MG Oral Tablet M[facility]IR ([facility]) Acetaminophen 325 MG / Hydrocodone Bitartrate 5 MG Oral Tablet M[facility]IR ([facility]) gabapentin 400 MG Oral Capsule MARTIR ([facility] Acetaminophen 300 MG / Codeine Phosphate 30 MG Oral Tablet M[facility]IR ([facility]) Trazodone Hydrochloride 50 MG Oral Tablet [facility] tizanidine 4 MG Oral Tablet [facility] Regular Insulin, Human 100 UNT/ML Injectable Solution [facility] Cholecalciferol 2000 UNT Oral Capsule MARTIR ([facility]) Ergocalciferol 76306 UNT Oral Capsule MARTIR ([facility]) Trazodone Hydrochloride 50 MG Oral Tablet MARTIR ([facility]) Trazodone Hydrochloride 100 MG Oral Tablet MARTIR ([facility]) tramadol hydrochloride 50 MG Oral Tablet MARTIR ([facility]) tizanidine 2 MG Oral Tablet MARTIR ([facility]) Steglatro 5 mg tablet MARTIR ([facility]) gabapentin 400 MG Oral Capsule MARTIR ([facility]) Clonazepam 0.5 MG Oral Tablet MARTIR ([facility]) Cephalexin 500 MG Oral Capsule MARTIR ([facility]) celecoxib 200 MG Oral Capsule MARTIR ([facility]) BD Ultra-Fine Mini Pen Needle 31 gauge x 3/16" USE DIRECTED with insulin pens MARTIR ([facility]) BD Insulin Syringe Ultra-Fine 1 mL 30 ga uge x 1/2" use as directed to inject insulin five times a day ud ATHE NA ([facility]) Amoxicillin 500 MG Oral Capsule MARTIR ([facility]) Acetaminophen 300 MG / Codeine Phosphate 30 MG Oral Tablet MARTIR ([facility]) Trazodone Hydrochloride 50 MG Oral Tablet M[facility] ([facility]) gabapentin 400 MG Oral Capsule MARTIR ([facility]) Cephalexin 500 MG Oral Capsule MARTIR ([facility]) celecoxib 200 MG Oral Capsule MARTIR ([facility]) Amoxicillin 500 MG Oral Capsule MARTIR ([facility]) Acetaminophen 300 MG / Codeine Phosphate 30 MG Oral Tablet MARTIR ([facility]) Cholecalciferol 2000 UNT Oral Capsule MARTIR ([facility]) Trazodone Hydrochloride 50 MG Oral Tablet M[facility] ([facility]) Trazodone Hydrochloride 100 MG Oral Tablet M[facility] ([facility]) tramadol hydrochloride 50 MG Oral Tablet MART[facility] ([facility]) tizanidine 2 MG Oral Tablet M[facility] ([facility]) Steglatro 5 mg tablet MARTIR ([facility]) Steglatro 15 mg tablet ATHEN A ([facility]) Risperidone 4 MG Oral Tablet M[facility]IR ([facility]) quetiapine 400 MG Oral Tablet M[facility] ([facility]) pen needles mis [id number] [place] [place] ([facility]) OneTouch Ultra2 Meter kit AT [facility] ([facility]) OneTouch Ultra2 Meter USE DIRECTED TO TEST BLOOD SUGAR THREE TIMES DAILY MARTIR ([facility]) OneTouch Ultra Blue Test Strip MARTIR ([facility]) Nicotine 2 MG Chewing Gum AT [facility] ([facility]) Naltrexone hydrochloride 50 MG Oral Tablet MARTIR ([facility]) Metformin hydrochloride 850 MG Oral Tablet MARTIR ([facility]) meloxicam 15 MG Oral Tablet M[facility] ([facility]) empagliflozin 25 MG Oral Tablet [Jardiance] MARTIR ([facility]) Steglatro 5 mg tablet TAKE ONE TABLET BY MOUTH ONCE DAILY MARTIR ([facility]) Nicotine 2 MG Chewing Gum AT [facility] ([facility]) meloxicam 15 MG Oral Tablet M[facility]IR ([facility]) Levofloxacin 500 MG Oral Tablet M[facility]IR ([facility]) Acetaminophen 325 MG / Hydrocodone Bitartrate 5 MG Oral Tablet M[facility]IR ([facility]) gabapentin 400 MG Oral Capsule MARTIR ([facility]) Steglatro 5 mg tablet TAKE ONE TABLET BY MOUTH ONCE DAILY MARTIR ([facility]) Levofloxacin 500 MG Oral Tablet M[facility] ([facility]) Acetaminophen 325 MG / Hydrocodone Bitartrate 5 MG Oral Tablet [facility] ([facility]) Steglatro 5 mg tablet TAKE ONE TABLET BY MOUTH ONCE DAILY MARTIR ([facility]) Levofloxacin 500 MG Oral Tablet [facility] ([facility]) Acetaminophen 325 MG / Hydrocodone Bitartrate 5 MG Oral Tablet M[facility] ([facility]) gabapentin 300 MG Oral Capsule MARTIR ([facility]) Steglatro 15 mg tablet ATHEN A ([facility]) Risperidone 4 MG Oral Tablet MARTIR ([facility]) quetiapine 400 MG Oral Tablet MART[facility] ([facility]) quetiapine 300 MG Oral Tablet MARTIR ([facility]) pen needles mis [id number] [facility] [place] ([facility]) OneTouch Ultra2 Meter kit AT [facility] ([facility]) OneTouch Ultra2 Meter USE DIRECTED TO TEST BLOOD SUGAR THREE TIMES DAILY MARTIR ([facility]) OneTouch Ultra Test strips ONE MISCELLANEOUS THREE TIMES A DAY N EEDED MARTIR ([facility]) OneTouch Ultra Blue Test Strip MARTIR ([facility]) OneTouch Delica Plus Lancet 33 gauge MARTIR ([facility]) Nicotine 2 MG Chewing Gum AT [facility] ([facility]) Naltrexone hydrochloride 50 MG Oral Tablet MART[facility] ([facility]) Metformin hydrochloride 850 MG Oral Tablet M[facility] ([facility]) meloxicam 15 MG Oral Tablet M[facility] ([facility]) empagliflozin 25 MG Oral Tablet [Jardiance] MARTIR ([facility]) insulin syrg mis 1ml/29g [facility] [place] ([facility]) insulin syrg mis 0.5/31g [facility] [place] ([facility]) gabapentin 400 MG Oral Capsule M[facility]IR ([facility]) Cephalexin 500 MG Oral Capsule MARTIR ([facility]) celecoxib 200 MG Oral Capsule [place] ([facility]) Amoxicillin 500 MG Oral Capsule MARTIR ([facility]) Acetaminophen 300 MG / Codeine Phosphate 30 MG Oral Tablet [facility] ([facility]) Cholecalciferol 2000 UNT Oral Capsule [facility] ([facility] [facility] Ergocalciferol [id number] UNT Oral Capsule [facility] ([facility]) Trazodone Hydrochloride 50 MG Oral Tablet [facility] ([facility]) Trazodone Hydrochloride 100 MG Oral Tablet [facility] ([facility]) tramadol hydrochloride 50 MG Oral Tablet [facility] ([facility]) tizanidine 2 MG Oral Tablet [facility] ([facility]) Steglatro 5 mg tablet MARTIR ([facility]) Steglatro 15 mg tablet ATHEN A ([facility]) Risperidone 4 MG Oral Tablet [facility] ([facility]) quetiapine 400 MG Oral Tablet [facility] ([facility]) quetiapine 300 MG Oral Tablet [facility] ([facility]) pen needles mis [id number] [facility] [place] ([facility]) OneTouch Ultra2 Meter kit AT [facility] ([facility]) OneTouch Ultra2 Meter USE DIRECTED TO TEST BLOOD SUGAR THREE TIMES DAILY [facility] ([facility]) OneTouch Ultra Test strips ONE MISCELLANEOUS THREE TIMES A DAY N EEDED MARTIR ([facility]) OneTouch Ultra Blue Test Strip [facility] ([facility]) OneTouch Delica Plus Lancet 33 gauge [facility] ([facility]) Nicotine 2 MG Chewing Gum AT [place] ([facility]) Naltrexone hydrochloride 50 MG Oral Tablet [facility] ([facility]) Metformin hydrochloride 850 MG Oral Tablet [facility] ([facility]) meloxicam 15 MG Oral Tablet [facility] ([facility]) empagliflozin 25 MG Oral Tablet [Jardiance] [facility] ([facility]) insulin syrg mis 1ml/29g [facility] [place] ([facility]) insulin syrg mis 0.5/31g [facility] [place] ([facility])
[2021-05-03] MEDS ORDERED: HALOPERIDOL 5MG/ML VIAL (J1630 PER 1) IM ONE (20:25)
[2021-05-03] MEDS ORDERED: LORazepam 2 MG/ML VIAL IM ONE (20:25)
[2021-05-03] MEDS ORDERED: diphenhydrAMINE 50MG/ML VIAL (J1200) IM ONE (20:25)
[2021-05-03] MEDS ORDERED: NS 1,000 ML IV ONE (20:30)
--- OUTSIDE RECORDS SUMMARY | 2021-05-03 20:32 | CCD ---
Author Author [facility] Organization [facility] Address Unknown Phone Unavailable Care Team Providers Care Stencil Maker Name Role Phone Rio Irizarry MD Unavailable [...] D ROYAL MD Unavailable Unavailable KACHARE, D ROAYL MD Unavailable Unavailable KACHARE, D ROYAL MD [...] KURTIS MACDONALDAlyse Unavailable Unavailab Kera Barriga Unavailable Manson, Fredrick Nguyen MD Un[facility] Un[facility]availa [facility], Fredrick Nguyen MD Unavailable Unavaila ble Manson, Fredrick Nguyen MD Unavailable Unavaila ble Manson, Fredrick Nguyen MD Unavailable Unavaila ble Manson, Fredrick Nguyen MD Unavailable Unavaila ble Manson, Fredrick Nguyen MD Unavailable Unavaila ble Manson, Fredrick Nguyen MD Unavailable Unavaila ble Manson, Fredrick Nguyen MD Unavailable Unavaila ble Manson, Fredrick Nguyen MD Unavailable Unavaila ble Manson, Fredrick Nguyen MD Unavailable Unavaila ble Manson, Fredrick Nguyen MD Unavailable Unavaila ble Daylin Waldrop Unavailable Jumalon, M Luz EQUINE BREEDER Unavailable Unavailable Jumalon, M Luz EQUINE BREEDER Unavailable Unavailable Jumalon, M Luz EQUINE BREEDER Unavailable Unavailable Jumalon, M Luz EQUINE BREEDER Unavailable Unavailable Jumalon, M Luz EQUINE BREEDER Unavailable Unavailable Jumalon, M Luz EQUINE BREEDER Unavailable Unavailable Jumalon, M Luz EQUINE BREEDER Unavailable Unavailable Jumalon, M Luz EQUINE BREEDER Unavailable Unavailable Jumalon, M Luz EQUINE BREEDER Unavailable Unavailable Jumalon, M Luz EQUINE BREEDER Unavailable Unavailable Jumalon, M Luz EQUINE BREEDER Unavailable Unavailable Jumalon, M Luz EQUINE BREEDER Unavailable Unavailable Jumalon, M Luz EQUINE BREEDER Unavailable Unavailable Jumalon, M Luz EQUINE BREEDER Unavailable Unavailable Jumalon, M Luz EQUINE BREEDER Unavailable Unavailable Jumalon, M Luz EQUINE BREEDER Unavailable Unavailable Jumalon, M Luz EQUINE BREEDER Unavailable Unavailable Jumalon, M Luz EQUINE BREEDER Unavailable Unavailable Jumalon, M Luz EQUINE BREEDER Unavailable Unavailable Jumalon, M Luz EQUINE BREEDER Unavailable Unavailable Jumalon, M Luz EQUINE BREEDER Unavailable Unavailable Jumalon, M Luz EQUINE BREEDER Unavailable Unavailable Jumalon, M Luz EQUINE BREEDER Unavailable Unavailable Jumalon, M Luz EQUINE BREEDER Unavailable Unavailable Jumalon, M Luz EQUINE BREEDER Unavailable Unavailable Jumalon, M Luz EQUINE BREEDER Unavailable Unavailable Jumalon, M Luz EQUINE BREEDER Unavailable Unavailable Jumalon, M Luz EQUINE BREEDER Unavailable Unavailable Jumalon, M Luz EQUINE BREEDER Unavailable Unavailable Jumalon, M Luz EQUINE BREEDER Unavailable Unavailable AUSTEN, H [facility] Unavailable Unavailable AUSTEN, H [facility] Unavailable Unavailable AUSTEN, H [facility] Unavailable Unavailable AUSTEN, H [facility] Unavailable Unavailable AUSTEN, H [facility] Unavailable Unavailable AUSTEN, H [facility] Unavailable Unavailable AUSTEN, H [facility] Unavailable Unavailable AUSTEN, H [facility] Unavailable Unavailable AUSTEN, H [facility] Unavailable Unavailable MD MIRTHA LOBATO Unavailable Unavailable [...] Bolla, S Pipo MD Unavailable Unavailable THOMAS, RESTORATION MD Unavailable Unavailable THOMAS, RESTORATION MD Unavailable Unavailable THOMAS, RESTORATION MD Unavailable Unavailable THOMAS, RESTORATION MD Unavailable Unavailable THOMAS, RESTORATION MD Unavailable Unavailable THOMAS, RESTORATION MD Unavailable Unavailable THOMAS, RESTORATION MD Unavailable Unavailable THOMAS, RESTORATION MD Unavailable Unavailable Mcnamara, E Amna [facility] Unavailable Unavailable Mcnamara, E Amna [facility] Unavailable Unavailable Mcnamara, E Amna [facility] Unavailable Unavailable Mcnamara, E Amna [facility] Unavailable Unavailable Mcnamara, E Amna [facility] Unavailable Unavailable Mcnamara, E Amna [facility] Unavailable Unavailable Mcnamara, E Amna [facility] Unavailable Unavailable Mcnamara, E Amna [facility] Unavailable Unavailable Mcnamara, E Amna [facility] Unavailable Unavailable Mcnamara, E Amna [facility] Unavailable Unavailable Mcnamara, E Amna [facility] Unavailable Unavailable Mcnamara, E Amna [facility] Unavailable Unavailable Mcnamara, E Amna [facility] Unavailable Unavailable Mcnamara, E Amna [facility] Unavailable Unavailable Mcnamara, E Amna [facility] Unavailable Unavailable Mcnamara, E Amna [facility] Unavailable Unavailable Mcnamara, E Amna [facility] Unavailable Unavailable Mcnamara, E Amna [facility] Unavailable Unavailable Mcnamara, E Amna [facility] Unavailable Unavailable Mcnamara, E Amna [facility] Unavailable Unavailable Mcnamara, E Amna [facility] Unavailable Unavailable Mcnamara, E Amna [facility] Unavailable Unavailable Mcnamara, E Amna [facility] Unavailable Unavailable Ze, A Sanjuana EQUINE BREEDER Unavailable Unavailable Ze, A Sanjuana EQUINE BREEDER Unavailable Unavailable Ze, A Sanjuana EQUINE BREEDER Unavailable Unavailable Ze, A Sanjuana EQUINE BREEDER Unavailable Unavailable Ze, A Sanjuana EQUINE BREEDER Unavailable Unavailable Ze, A Sanjuana EQUINE BREEDER Unavailable Unavailable Ze, A Sanjuana EQUINE BREEDER Unavailable Unavailable Ze, A Sanjuana EQUINE BREEDER Unavailable Unavailable Ze, A Sanjuana EQUINE BREEDER Unavailable Unavailable Ze, A Sanjuana EQUINE BREEDER Unavailable Unavailable Ze, A Sanjuana EQUINE BREEDER Unavailable Unavailable Ze, A Sanjuana EQUINE BREEDER Unavailable Unavailable Ze, A Sanjuana EQUINE BREEDER Unavailable Unavailable Ze, A Sanjuana EQUINE BREEDER Unavailable Unavailable Ze, A Sanjuana EQUINE BREEDER Unavailable Unavailable Ze, A Sanjuana EQUINE BREEDER Unavailable Unavailable Ze, A Sanjuana EQUINE BREEDER Unavailable Unavailable Ze, A Sanjuana EQUINE BREEDER Unavailable Unavailable Ze, A Sanjuana EQUINE BREEDER Unavailable Unavailable Ze, A Sanjuana EQUINE BREEDER Unavailable Unavailable Ze, A Sanjuana EQUINE BREEDER Unavailable Unavailable Ze, A Sanjuana EQUINE BREEDER Unavailable Unavailable Ze, A Sanjuana EQUINE BREEDER Unavailable Unavailable Ze, A Sanjuana EQUINE BREEDER Unavailable Unavailable Ze, A Sanjuana EQUINE BREEDER Unavailable Unavailable Ze, A Sanjuana EQUINE BREEDER Unavailable Unavailable Ze, A Sanjuana EQUINE BREEDER Unavailable Unavailable Ze, A Sanjuana EQUINE BREEDER Unavailable Unavailable Ze, A Sanjuana EQUINE BREEDER Unavailable Unavailable Ze, A Sanjuana EQUINE BREEDER Unavailable Unavailable Ze, A Sanjuana EQUINE BREEDER Unavailable Unavailable Gilson Blackwell MD Unavailable Unavailable [...] is protected by Article 27-F of the [facility] Public Health law. If you continue you may have access to information: Regarding HIV / AIDS; Provided by facilities licensed or operated by the [facility] Office of Mental Health; or Provided by the [facility] Office for People With Developmental Disabilities. If such information is present, then the following [facility] mandated warning applies: This information has [...] law may result in a fine or alf sentence or both. A general authorization for the release of medical or other information is NOT sufficient authorization for further disc losure. Allergies and Adverse Reactions Type Description Substance Reaction Status Data Source(s ) Propensity to adverse reactions NO KNOWN ALLERGIES NO KNOWN ALLERGIES [facility] Propensity to adverse reactions RISPERIDONE RISPERIDONE Unknown [facility] Propensity to adverse reactions RISPERIDONE Risperidone Rash Low [facility] Propensity to adverse reactions NO KNOWN ALLERGIES NO KNOWN ALLERGIES [facility] Propensity to adverse reactions NO ALLERGIES ON FILE NO ALLERGIES ON FILE [facility] Allergy to substance Allergy to substance Allergy to substance [facility] ([facility]) Allergy to substance Allergy to substance Allergy to substance [facility] ([facility]) Family History Family Member Name Family Member Gender Family Member Status Date o f Status Description Data Source(s) Unknown Unknown Problem MEDENT ([facility]) Unknown Unknown Problem MEDENT ([facility]) Encounters Encounter Providers Location Date Indications Data Source(s ) Pipo Lara MD: [id number] [address], [place] [address], Ph. Attender: Pipo Lara MD [place] - [facility] 04/25/2021 12:00:00 AM EDT MARTIR ([facility]) Pipo Lara MD: [id number] [facility] [address], [address], [place] [address], Ph. [phone] Attender: Pipo Lara MD ND - [facility] 04/22/2021 12:00:00 AM EDT MARTIR ([facility]) Pipo Lara MD: [id number] [facility] [address], [place] [address], Ph. [phone] Attender: Pipo Lara MD ND - [facility] 04/22/2021 12:00:00 AM EDT MARTIR ([facility]) Extended Individual Psychotherapy - 45 min Attender: Nhi Waldrop [facility] 04/15/2021 01:00:00 AM EDT - 04/15/2021 01:00:00 AM EDT [facility] ([facility]) Attender: Daylin Waldrop 04/15/2021 12:00:00 A M EDT [facility] ([facility]) Luz Dallas, HOSPICE CHAPLAIN: [address], [place] [address], Ph. Attender: Luz Dallas [facility] 04/11/2021 12:00:00 AM EDT ATHGilson NA ([facility]) Luz Dallas, HOSPICE CHAPLAIN: [address], [place] [address], Ph. Attender: Luz Dallas [facility] 04/11/2021 12:00:00 AM EDT ATHGilson GARCIA ([facility]) Luz Dallas, HOSPICE CHAPLAIN: [address], [place] [address], Ph. Attender: Luz Dallas [facility] 04/11/2021 12:00:00 AM EDT ATHE NA ([facility]) Attender: Daylin Jaimekatina 03/21/2021 12:00:00 A M EDT [facility] ([facility]) Brief Individual Psychotherapy - 30 min Attender: Daylin barragan [facility] 03/19/2021 12:45:00 PM EDT - 03/19/2021 12:45:00 PM EDT [facility] ([facility]) Sanjuana Kunz [facility]: [address] [place] [address], Ph. Attender: Sanjuana Kunz [facility] Medical 03/15/2021 12:00:00 AM EDT [facility]ARTIR ([facility]) Inpatient Attender: NEY Guillen nder: CAREY CHARLES MDAdmitter: NEY THOMAS MDReferrer: CAREY CHARLES MD [id number] 03/02/2021 12:00:00 AM EDT - 03/06/2021 02:10:00 PM EDT [facility] Patient discharged. Luz Dallas, HOSPICE CHAPLAIN: [address], [place] [address], Ph. Attender: Luz Dallas [facility] 02/28/2021 12:00:00 AM EDT JORDYN GARCIA ([facility]) Luz Dallas, HOSPICE CHAPLAIN: [address], [place] [address], Ph. Attender: Luz Dallas [facility] 02/28/2021 12:00:00 AM EDT ATHGilosn GARCIA ([facility]) Luz Argueta Celena, HOSPICE CHAPLAIN: [address], [place] [address], Ph. Attender: Luz Dallas [facility] - [facility] 02/28/2021 12:00:00 AM EDT ATHGilson GARCIA ([facility]) Luz Dallas, HOSPICE CHAPLAIN: [address], [place] [address], Ph. Attender: Luz Dallas [facility] - [facility] 02/28/2021 12:00:00 AM EDT ATHGilson GARCIA ([facility]) Emergency Attender: TRAE GARCIAConsultant: STAFF NON 02/27/2021 10:13:00 PM EDT - 02/28/2021 12:22:00 AM EDT [facility] Patient discharged. Brief Individual Psychotherapy - 30 min Attender: Daylin barragan [facility] 02/26/2021 01:30:00 AM EDT - 02/26/2021 01:30:00 AM EDT [facility] ([facility]) Attender: Daylin Waldrop 02/26/2021 12:00:00 A M EDT [facility] ([facility]) Pipo Lara MD: [address], [place] [address], Ph. Attender: Pipo SHEPPARD - [facility] 02/05/2021 12:00:00 AM EDT MARTIR ([facility]) Pipo Lara MD: [address], [place] [address], Ph. Attender: Pipo SHEPPARD - [facility] 02/05/2021 12:00:00 AM EDT [facility]IR ([facility]) Pipo Lara MD: [address], [address], [place] [address], Ph. Attender: Pipo Lara MD ND - [facility] 02/05/2021 12:00:00 AM EDT MARTIR ([facility]) Pipo Lara MD: [address], [address], [place] [address], Ph. Attender: Pipo SHEPPARD - [facility] 02/05/2021 12:00:00 AM EDT MARTIR ([facility]) Pipo Lara MD: [address], [place] [address], Ph. Attender: Pipo SHEPPARD - [facility] 02/05/2021 12:00:00 AM EDT [facility] ([facility]) Emergency Attender: Cheo Landis MDConsultant: STAFF NON 02/01/2021 11:44:00 PM EDT - 02/02/2021 03:48:00 AM EDT [facility] Patient discharged. Outpatient Attender: CARLOS ALBERTO BOYCE NP [facility] Chris cabrera 01/31/2021 03:00:00 AM EDT - 01/31/2021 03:00:00 AM EDT [facility] ([facility]) Extended Individual Psychotherapy - 45 min Attender: Nhi Waldrop [facility] Arely 01/31/2021 02:00:00 AM EDT - 01/31/2021 02:00:00 AM EDT [facility] ([facility]) Attender: CARLOS ALBERTO BOYCE NP 01/31/2021 12:00:00 AM EDT [facility] ([facility]) Attender: Daylin Waldrop 01/31/2021 12:00:00 A M EDT [facility] ([facility]) SHANNON Jay-BC: [address] [place] [address], Ph. Attender: Sanjuana Kunz [facility] Medical 01/10/2021 12:00:00 AM EDT MARTIR ([facility]) Sanjuana Ze [facility]: [address] [place] [address], Ph. Attender: Sanjuana Kunz [facility] Medical 01/10/2021 12:00:00 AM EDT M[facility]IR ([facility]) Outpatient Attender: CARLOS ALBERTO BOYCE NP [facility] l 12/13/2020 03:30:00 AM EDT - 12/13/2020 03:30:00 AM EDT [facility] ([facility]) Attender: CARLOS ALBERTO BOYCE NP 12/13/2020 12:00:00 AM EDT [facility] Kurtis Irizarry MD: [address] [place] [address], Ph. Attender: Kurtis Irizarry MD [facility] Medical 11/28/2020 12:00:00 AM EDT MARTIR ([facility]) Kurtis Irizarry MD: [address] [place] [address], Ph. Attender: Kurtis Irizarry MD [facility] Medical 11/28/2020 12:00:00 AM EDT MARTIR ([facility]) Kurtis Irizarry MD: [address] [place] [address], Ph. Attender: Kurtis Irizarry MD [facility] Medical 11/28/2020 12:00:00 AM EDT [facility] ([facility]) Outpatient Attender: Madhu Blackwell MD [facility] 11/22/2020 08:00:00 AM EDT - 11/22/2020 08:00:00 AM EDT [facility] ([facility]) Attender: Madhu Blackwell MD 11/22/2020 12:00:00 AM EDT [facility] ([facility]) Emergency Attender: MEDICAL EMERGENCYAttender: MD AMNA VILLANUEVA [facility] 10/30/2020 09:24:00 AM EDT - 10/30/2020 11:24:00 AM EDT [facility] Patient discharged. Emergency Attender: MD AMNA LOBATO 10/30/2020 09:24:00 AM EDT [facility] Inpatient Attender: MD CHRISTINE Lira nasreen: DO ERIC BRYANTttender: DO CORNELIO Singletonender: MEDICAL EMERGENCYAdmitter: DO ERIC MICHEL [id number] 10/28/2020 04:13:00 PM EDT - 11/06/2020 02:27:00 PM EDT [facility] Patient discharged. Inpatient Attender: DOCTOR UNKNOWNAdmi tter: DO ERIC MICHELReferrer: CATHERINE GREGG MD 10/28/2020 04:13:00 PM EDT [facility] Outpatient Attender: CARLOS ALBERTO BOYCE NP [facility] Chris cabrera 10/18/2020 11:00:00 AM EDT - 10/18/2020 11:00:00 AM EDT [facility] ([facility]) Attender: CARLOS ALBERTO BOYCE NP 10/18/2020 12:00:00 AM EDT [facility] ([facility]) Brief Individual Psychotherapy - 30 min Attender: Kera jordan [facility] Arely 10/08/2020 12:00:00 PM EDT - 10/08/2020 12:00:00 PM EDT [facility] ([facility]) Attender: Kera Nielsen 10/08/2020 12:00:00 AM EDT [facility] ([facility]) Outpatient Attender: CARLOS ALBERTO BOYCE NP [facility] Chris cabrera 10/01/2020 02:30:00 AM EDT - 10/01/2020 02:30:00 AM EDT [facility] ([facility]) Attender: CARLOS ALBERTO BOYCE NP 10/01/2020 12:00:00 AM EDT [facility] ([facility]) IP PSYCH Attender: Patrick berger MDAttender: BALJIT BOLDEN MDAdmitter: Patrick Marte MDConsultant: ROYAL GÓMEZ MD 5F-PY 09/01/2020 11:07:00 PM EST - 09/06/2020 01:00:00 PM EST [facility] Patient discharged. TEMPMHCTelemed--Crisis Brief Attender: Daylin Waldrop [facility] 08/27/2020 02:45:00 AM EST - 08/27/2020 02:45:00 AM EST [facility] ([facility]) Attender: Daylin Waldrop 08/27/2020 12:00:00 A M EST [facility] ([facility]) Attender: Daylin Waldrop 08/03/2020 12:00:00 A M EST [facility] ([facility]) Brief Individual Psychotherapy - 30 min Attender: Daylin barragan [facility] 08/02/2020 11:00:00 AM EST - 08/02/2020 11:00:00 AM EST [facility] ([facility]) Outpatient Attender: CARLOS ALBERTO BOYCE NP [facility] Chris cabrera 07/10/2020 01:00:00 AM EST - 07/10/2020 01:00:00 AM EST [facility] ([facility]) Attender: CARLOSA LBERTO BOYCE NP 07/10/2020 12:00:00 AM EST [facility] ([facility]) Brief Individual Psychotherapy - 30 min Attender: Daylin barragan [facility] 06/14/2020 12:00:00 PM EST - 06/14/2020 12:00:00 PM EST [facility] ([facility]) Attender: Daylin Waldrop 06/14/2020 12:00:00 A M EST [facility] ([facility]) MAIKEL CarltonBC: [address], [place] [address], Ph. Attender: Amna Mcnamara NP [facility] Medical 06/13/2020 12:00:00 AM EST [facility] ([facility]) MAIKEL CarltonBC: [address], [place] [address], Ph. Attender: Amna Mcnamara NP [facility] Medical 06/13/2020 12:00:00 AM EST [facility] ([facility]) GALEN Carlton: [address], [place] [address], Ph. Attender: Amna Mcnamara NP [facility] Medical 06/13/2020 12:00:00 AM EST [facility] ([facility]) MAIKEL CarltonBC: [address], [place] [address], Ph. Attender: Amna Mcnamara NP [facility] Medical 06/13/2020 12:00:00 AM EST [facility] ([facility]) Outpatient Attender: CARLOS ALBERTO BOYCE NP [facility] Chris l 06/12/2020 03:30:00 AM EST - 06/12/2020 03:30:00 AM EST [facility] ([facility]) Attender: CARLOS ALBERTO BOYCE NP 06/12/2020 12:00:00 AM EST [facility] ([facility]) Unknown [address] [facility] [place] [address] 06/07/2020 12:00:00 AM EST eCW1 ([facility]) Brief Individual Psychotherapy - 30 min Attender: Daylin barragan [facility] Alf 04/24/2020 12:00:00 PM EDT - 04/24/2020 12:00:00 PM EDT [facility] ([facility]) Attender: Daylin Waldrop 04/24/2020 12:00:00 A M EDT [facility] ([facility]) Outpatient FP 04/18/2020 02:50:00 PM EDT [facility] Outpatient Attender: CARLOS ALBERTO BOYCE NP [facility] Chris cabrera 04/09/2020 03:00:00 AM EDT - 04/09/2020 03:00:00 AM EDT [facility] ([facility]) Attender: CARLOS ALBERTO BOYCE NP 04/09/2020 12:00:00 AM EDT [facility] ([facility]) Brief Individual Psychotherapy - 30 min Attender: Kera jordan [facility] Arely 04/02/2020 02:00:00 AM EDT - 04/02/2020 02:00:00 AM EDT [facility] ([facility]) Attender: Kera Nielsen 04/02/2020 12:00:00 AM EDT [facility] ([facility]) Outpatient FP 03/21/2020 11:10:01 AM EDT [facility] Functional Status Immunizations Vaccine Date Status Description Data Source(s) COVID-19 vaccine, vector-nr, rS-Ad26, PF, 0.5 mL 11/28/2020 04:33:01 PM EDT completed 10.5 mL MARTIR ([facility]) COVID-19 vaccine, vector-nr, rS-Ad26, PF, 0.5 mL 11/28/2020 04:33:01 PM EDT completed 10.5 mL [facility]IR ([facility]) COVID-19 vaccine, vector-nr, rS-Ad26, PF, 0.5 mL 11/28/2020 04:33:01 PM EDT completed .5 mL [facility]) COVID-19 VACCINE Lorrie 11/28/2020 12:00:00 AM EDT completed [facility] Vaccine Series Complete: YESThis Data wa s Submitted to [facility]. Medications Medication Brand Name Start Date Product Form Dose Route Admi nistrative Instructions Pharmacy Instructions Status Indications Reaction Description Data Source(s) quetiapine 300 MG Oral Tablet quetiapine 04/02/2021 12:00:00 AM EDT 300 mg by mouth completed <td ID="Medica tionRxNorm_2">056623</td><td ID="MedicationMedication_2">quetiapine</td><td ID="MedicationRoute_2">by mouth</td><td ID="MedicationRouteConcept_2">W07973</td><td ID="MedicationStartDate_2">04/02/2021</td><td ID="MedicationStopDate_2">05/02/2021</td><td ID="MedicationDosageFrequency_2">at bedtime</td><td ID="MedicationDuration_2">30</td><td ID="MedicationFormulaStrength_2">300 mg</td><td ID="MedicationDosageForm_2">tablet</td><td ID="MedicationDosageFormCode_2"></td><td ID="MedicationDosageDescription_2"></td><td ID="MedicationMedicationId_2">[id number]</td><td ID="MedicationAccount_2">[id number]</td><td ID="MedicationNpid_2">[id number]</td><td ID="MedicationAuthorFirstName_2">Carlos Alberto</td><td ID="MedicationAuthorLastName_2">Austen</td><td ID="MedicationTaxonomyCode_2">[id number]</td><td ID="MedicationTaxonomyDesc_2">Nurse Practitioner</td><td ID="MedicationPhoneNumber_2">[phone]</td> [facility] ([facility]) Haloperidol 10 MG Oral Tablet haloperidol 04/02/2021 12:00:00 AM EDT 10 mg by mouth completed <td ID="Medica tionRxNorm_4">[id number]</td><td ID="MedicationMedication_4">haloperidol</td><td ID="MedicationRoute_4">by mouth</td><td ID="MedicationRouteConcept_4">S96088</td><td ID="MedicationStartDate_4">04/02/2021</td><td ID="MedicationStopDate_4">06/01/2021</td><td ID="MedicationDosageFrequency_4">three times a day</td><td ID="MedicationDuration_4">30</td><td ID="MedicationFormulaStrength_4">10 mg</td><td ID="MedicationDosageForm_4">tablet</td><td ID="MedicationDosageFormCode_4"></td><td ID="MedicationDosageDescription_4"> </td><td ID="MedicationMedicationId_4">[id number]</td><td ID="MedicationAccount_4">[id number]</td><td ID="MedicationNpid_4">[id number]</td><td ID="MedicationAuthorFirstName_4">Carlos Alberto</td><td ID="MedicationAuthorLastName_4">Austen</td><td ID="MedicationTaxonomyCode_4">[id number]</td><td ID="MedicationTaxonomyDesc_4">Nurse Practitioner</td><td ID="MedicationPhoneNumber_4">[phone]</td> [facility] ([facility] gabapentin 300 MG Oral Capsule gabapentin 04/02/2021 12:00:00 AM EDT 300 mg by mouth completed <td ID="Medica tionRxNorm_5">581189</td><td ID="MedicationMedication_5">gabapentin</td><td ID="MedicationRoute_5">by mouth</td><td ID="MedicationRouteConcept_5">E54687</td><td ID="MedicationStartDate_5">04/02/2021</td><td ID="MedicationStopDate_5">06/01/2021</td><td ID="MedicationDosageFrequency_5">three times a day</td><td ID="MedicationDuration_5">30</td><td ID="MedicationFormulaStrength_5">300 mg</td><td ID="MedicationDosageForm_5">capsule</td><td ID="MedicationDosageFormCode_5"></td><td ID="MedicationDosageDescription_5"> </td><td ID="MedicationMedicationId_5">[id number]</td><td ID="MedicationAccount_5">[id number]</td><td ID="MedicationNpid_5">[id number]</td><td ID="MedicationAuthorFirstName_5">Carlos Alberto</td><td ID="MedicationAuthorLastName_5">Austen</td><td ID="MedicationTaxonomyCode_5">[id number]</td><td ID="MedicationTaxonomyDesc_5">Nurse Practitioner</td><td ID="MedicationPhoneNumber_5">[phone]</td> [facility] ([facility]) benztropine mesylate 1 MG Oral Tablet benztropine 04/02/2021 12:00 :00 AM EDT 1 mg by mouth completed <td ID="Me dicationRxNorm_3">338126</td><td ID="MedicationMedication_3">benztropine</td><td ID="MedicationRoute_3">by mouth</td><td ID="MedicationRouteConcept_3">C01470</td><td ID="MedicationStartDate_3">04/02/2021</td><td ID="MedicationStopDate_3">06/01/2021</td><td ID="MedicationDosageFrequency_3">twice a day</td><td ID="MedicationDuration_3">30</td><td ID="MedicationFormulaStrength_3">1 mg</td><td ID="MedicationDosageForm_3">tablet</td><td ID="MedicationDosageFormCode_3"></td><td ID="MedicationDosageDescription_3"></td><td ID="MedicationMedicationId_3">[id number]</td><td ID="MedicationAccount_3">[id number]</td><td ID="MedicationNpid_3">[id number]</td><td ID="MedicationAuthorFirstName_3">Carlos Alberto</td><td ID="MedicationAuthorLastName_3">Austen</td><td ID="MedicationTaxonomyCode_3">[id number]</td><td ID="MedicationTaxonomyDesc_3">Nurse Practitioner</td><td ID="MedicationPhoneNumber_3">[phone]</td> [facility] ([facility]) Clonazepam 0.5 MG Oral Tablet [Klonopin] Klonopin 04/01/2021 12 :00:00 AM EDT 0.5 mg by mouth completed <td ID="Me dicationRxNorm_1">711903</td><td ID="MedicationMedication_1">Klonopin</td><td ID="MedicationRoute_1">by mouth</td><td ID="MedicationRouteConcept_1">K09549</td><td ID="MedicationStartDate_1">04/01/2021</td><td ID="MedicationStopDate_1">04/16/2021</td><td ID="MedicationDosageFrequency_1">twice a day</td><td ID="MedicationDuration_1">15</td><td ID="MedicationFormulaStrength_1">0.5 mg</td><td ID="MedicationDosageForm_1">tablet</td><td ID="MedicationDosageFormCode_1"></td><td ID="MedicationDosageDescription_1"></td><td ID="MedicationMedicationId_1">[id number]</td><td ID="MedicationAccount_1">[id number]</td><td ID="MedicationNpid_1">[id number]</td><td ID="MedicationAuthorFirstName_1">Carlos Alberto</td><td ID="MedicationAuthorLastName_1">Austen</td><td ID="MedicationTaxonomyCode_1">[id number]</td><td ID="MedicationTaxonomyDesc_1">Nurse Practitioner</td><td ID="MedicationPhoneNumber_1">[phone]</td> [facility] ([facility]) Clonazepam 0.5 MG Oral Tablet clonazepam 03/08/2021 12:00:00 AM EDT 0.5 mg by mouth completed <td ID="Medica tionRxNorm_1">311782</td><td ID="MedicationMedication_1">clonazepam</td><td ID="MedicationRoute_1">by mouth</td><td ID="MedicationRouteConcept_1">K47074</td><td ID="MedicationStartDate_1">03/08/2021</td><td ID="MedicationStopDate_1">03/23/2021</td><td ID="MedicationDosageFrequency_1">twice a day</td><td ID="MedicationDuration_1">15</td><td ID="MedicationFormulaStrength_1">0.5 mg</td><td ID="MedicationDosageForm_1">tablet</td><td ID="MedicationDosageFormCode_1"></td><td ID="MedicationDosageDescription_1"></td><td ID="MedicationMedicationId_1">[id number]</td><td ID="MedicationAccount_1">[id number]</td><td ID="MedicationNpid_1">[id number]</td><td ID="MedicationAuthorFirstName_1">Tio</td><td ID="MedicationAuthorLastName_1">Mares</td><td ID="MedicationTaxonomyCode_1">[id number]</td><td ID="MedicationTaxonomyDesc_1">Nurse Practitioner</td><td ID="MedicationPhoneNumber_1">[phone]</td> [facility] ([facility]) Nicotine 2 MG Oral Lozenge Nicotine Efrain crilex 2 MG Mouth/Throat Lozenge (NICORETTE) Nicotine Polacrilex 2 MG Mouth/Throat Lozenge (NICORET TE) 03/06/2021 12:00:00 AM EDT [address] 1 lozenge inside cheek every 2 (two) hours as needed for Smoking cessation [facility] Metformin hydrochloride 500 MG Oral Tablet metFORMIN ( GLUCOPHAGE) tablet 500 mg metFORMIN (GLUCOPHAGE) tablet 500 mg 03/03/2021 09:00:00 AM EDT 500 m g Oral active Type 2 Diabetes Mellitus 500 mg, Oral, 2 Times Daily With Meals, Indications: Type 2 Diabetes Mellitus, First dose on 03/03/21 at 0900, For 30 days [facility] Type 2 Diabetes Mellitus Medication administered onsite Tamsulosin hydrochloride 0.4 MG Oral Capsule tamsulosi n (FLOMAX) capsule 0.4 mg tamsulosin (FLOMAX) capsule 0.4 mg 03/03/2021 09:00:00 AM EDT 0.4 mg Oral active 0.4 mg, Oral, Daily Standard, First dose on 03/03/21 at 0900, For 30 days
Swallow whole. Do not crush, chew or open.
[facility] Medication administered onsite insulin lispro (HumaLOG) injection LOW DOSE EATING INS ULIN patients 1-8 Units 86236-876-05 03/03/2021 08:00:00 AM EDT U Subcutaneous active 1-8 Units, Subcutaneous, Three Times Daily-With Meals, First dose on 03/03/21 at 0800, For 30 days
Nursing MUST open the 'SQ Insulin Dosing Charts' Sidebar Report, or, the Patient Summary or Summary Report within the ED.
[facility] Medication administered onsite Insulin Glargine 100 [...] glucose more than 400 mg/dL: notify provider
[facility] Medication administered onsite quetiapine 300 MG Oral Tablet QUEtiapine (SEROquel) ta blet 600 mg QUEtiapine (SEROquel) tablet 600 mg 03/02/2021 10:00:00 PM EDT 600 mg Oral active 600 mg, Oral, Nightly, First dose on 03/02/21 at 220 0, For 30 days [facility] Medication administered onsite Haloperidol 10 MG Oral Tablet haloperidol (HALDOL) tab let 10 mg haloperidol (HALDOL) tablet 10 mg 03/02/2021 09:00:00 PM EDT 10 mg Oral active 10 mg, Oral, Three Times Daily Standard, First dose on 03/02/21 at 2100, For 30 days [facility] Medication administered onsite benztropine mesylate 1 MG Oral Tablet benztropine (COG ENTIN) tablet 1 mg benztropine (COGENTIN) tablet 1 mg 03/02/2021 09:00:00 PM EDT 1 mg Oral active 1 mg, Oral, 2 Times Daily, First dose on 03/02/21 at 2100, For 30 days [facility] Medication administered onsite gabapentin 300 MG Oral Capsule gabapentin (NEURONTIN) capsule 600 mg gabapentin (NEURONTIN) capsule 600 mg 03/02/2021 09:00:00 PM EDT 600 mg Oral active Fibromyalgia Syndrome 600 mg, Oral, Three Times D aily Standard, Indications: Fibromyalgia Syndrome, First dose on 03/02/21 at 2100, For 30 days [facility] Fibromyalgia Syndrome Medication administered onsite Baclofen 10 MG Oral Tablet baclofen (LIORESAL) tablet 10 mg baclofen (LIORESAL) tablet 10 mg 03/02/2021 09:00:00 PM EDT 10 mg Oral activ e 10 mg, Oral, 2 Times Daily, First dose on 03/02/21 at 2100, For 30 days [facility] Medication administered onsite Clonazepam 0.5 MG Oral Tablet clonazePAM (KLONOPIN) ta blet 0.5 mg clonazePAM (KLONOPIN) tablet 0.5 mg 03/02/2021 07:12:17 PM EDT 0.5 mg Oral active 0.5 mg, Oral, Daily PRN, anxiety, Starting on Sat at 1912, For 30 days [facility] Medication administered onsite Glucagon 1 MG Injection glucagon (human recombinant) ( GLUCAGEN) injection 1 mg glucagon (human recombinant) (GLUCAGEN) injection 1 mg 03/02/2021 07:12:16 PM EDT 1 mg Intramuscular active 1 mg, Intramuscular, PRN, for glucose <55 without IV access, Starting on 03/02/21 at 1912, For 30 days [facility] Medication administered onsite Glucose 0.417 MG/MG Oral Gel glucose (GLUTOSE) 40 % or al gel 15 g glucose (GLUTOSE) 40 % oral gel 15 g 03/02/2021 07:12:16 PM EDT 15 g Oral active 15 g, Oral, PRN, Low blood s ugar, for gluose 55-69 mg/dl and able to take PO, Starting on 03/02/21 at 1912, For 30 days [facility] Medication administered onsite dextrose 50 % IV solution 25 mL 9953-3341-13 03/02/2021 07:12:16 PM E DT 25 mL Intravenous active 25 mL, Intrav enous, PRN, Other, blood glucose <55, Starting on 03/02/21 at 1912, For 30 days
Not for midline administration.
[facility] Medication administered onsite Hydroxyzine Hydrochloride 50 MG Oral Tablet hydrOXYzin e (ATARAX) tablet 50 mg hydrOXYzine (ATARAX) tablet 50 mg 03/02/2021 07:02:30 PM EDT 50 mg Oral active 50 mg, Oral, Every 6 hours PRN, Anxiety, Sleep, Starting on 03/02/21 at 1902, For 30 days [facility] Medication administered onsite Nicotine 2 MG Oral Lozenge nicotine (NICORETTE) lozeng e 2 mg nicotine (NICORETTE) lozenge 2 mg 03/02/2021 07:02:20 PM EDT 2 mg Mouth/Th roat active 2 mg, Mouth/Throat, Every 2 hours PRN, Smoking cessation, Starting on 03/02/21 at 1902, For 30 days
Should not be chewed or swallowed; allow to dissolve slowly (~20-30 minutes)
[facility] Medication administered onsite Acetaminophen 325 MG [...] mg from all sources in 24 hrs.
[facility] Medication administered onsite Clonazepam 0.5 MG Oral Tablet [Klonopin] Klonopin 02/21/2021 12 :00:00 AM EDT 0.5 mg by mouth completed <td ID="Me dicationRxNorm_3">[id number]</td><td ID="MedicationMedication_3">Klonopin</td><td ID="MedicationRoute_3">by mouth</td><td ID="MedicationRouteConcept_3">B35704</td><td ID="MedicationStartDate_3">02/21/2021</td><td ID="MedicationStopDate_3">03/08/2021</td><td ID="MedicationDosageFrequency_3">twice a day</td><td ID="MedicationDuration_3">15</td><td ID="MedicationFormulaStrength_3">0.5 mg</td><td ID="MedicationDosageForm_3">tablet</td><td ID="MedicationDosageFormCode_3"></td><td ID="MedicationDosageDescription_3"></td><td ID="MedicationMedicationId_3">[id number]</td><td ID="MedicationAccount_3">[id number]</td><td ID="MedicationNpid_3">[id number]</td><td ID="MedicationAuthorFirstName_3">Carlos Alberto</td><td ID="MedicationAuthorLastName_3">Austen</td><td ID="MedicationTaxonomyCode_3">[id number]</td><td ID="MedicationTaxonomyDesc_3">Nurse Practitioner</td><td ID="MedicationPhoneNumber_3">[phone]</td> [facility] ([facility]) quetiapine 300 MG Oral Tablet quetiapine 02/03/2021 12:00:00 AM EDT 300 mg by mouth completed <td ID="Medica tionRxNorm_6">566179</td><td ID="MedicationMedication_6">quetiapine</td><td ID="MedicationRoute_6">by mouth</td><td ID="MedicationRouteConcept_6">U46586</td><td ID="MedicationStartDate_6">02/03/2021</td><td ID="MedicationStopDate_6">03/05/2021</td><td ID="MedicationDosageFrequency_6">at bedtime</td><td ID="MedicationDuration_6">30</td><td ID="MedicationFormulaStrength_6">300 mg</td><td ID="MedicationDosageForm_6">tablet</td><td ID="MedicationDosageFormCode_6"></td><td ID="MedicationDosageDescription_6"></td><td ID="MedicationMedicationId_6">[id number]</td><td ID="MedicationAccount_6">[id number]</td><td ID="MedicationNpid_6">[id number]</td><td ID="MedicationAuthorFirstName_6">Carlos Alberto</td><td ID="MedicationAuthorLastName_6">Austen</td><td ID="MedicationTaxonomyCode_6">[id number]</td><td ID="MedicationTaxonomyDesc_6">Nurse Practitioner</td><td ID="MedicationPhoneNumber_6">[phone]</td> [facility] ([facility] Clonazepam 0.5 MG Oral Tablet [Klonopin] Klonopin 01/31/2021 12 :00:00 AM EDT 0.5 mg by mouth completed <td ID="Me dicationRxNorm_2">778899</td><td ID="MedicationMedication_2">Klonopin</td><td ID="MedicationRoute_2">by mouth</td><td ID="MedicationRouteConcept_2">D75568</td><td ID="MedicationStartDate_2">01/31/2021</td><td ID="MedicationStopDate_2">02/15/2021</td><td ID="MedicationDosageFrequency_2">twice a day</td><td ID="MedicationDuration_2">15</td><td ID="MedicationFormulaStrength_2">0.5 mg</td><td ID="MedicationDosageForm_2">tablet</td><td ID="MedicationDosageFormCode_2"></td><td ID="MedicationDosageDescription_2"></td><td ID="MedicationMedicationId_2">[id number]</td><td ID="MedicationAccount_2">[id number]</td><td ID="MedicationNpid_2">[id number]</td><td ID="MedicationAuthorFirstName_2">Carlos Alberto</td><td ID="MedicationAuthorLastName_2">Austen</td><td ID="MedicationTaxonomyCode_2">[id number]</td><td ID="MedicationTaxonomyDesc_2">Nurse Practitioner</td><td ID="MedicationPhoneNumber_2">[phone]</td> [facility] ([facility]) BLOOD SUGAR DIAGNOSTIC 01/21/2021 12:00:00 AM EDT [...] 300 mg by mouth completed <td ID="Medica tionRxNorm_1">610847</td><td ID="MedicationMedication_1">quetiapine</td><td ID="MedicationRoute_1">by mouth</td><td ID="MedicationRouteConcept_1">L21540</td><td ID="MedicationStartDate_1">01/03/2021</td><td ID="MedicationStopDate_1">02/02/2021</td><td ID="MedicationDosageFrequency_1">at bedtime</td><td ID="MedicationDuration_1">30</td><td ID="MedicationFormulaStrength_1">300 mg</td><td ID="MedicationDosageForm_1">tablet</td><td ID="MedicationDosageFormCode_1"></td><td ID="MedicationDosageDescription_1"></td><td ID="MedicationMedicationId_1">[id number]</td><td ID="MedicationAccount_1">[id number]</td><td ID="MedicationNpid_1">[id number]</td><td ID="MedicationAuthorFirstName_1">Carlos Alberto</td><td ID="MedicationAuthorLastName_1">Austen</td><td ID="MedicationTaxonomyCode_1">[id number]</td><td ID="MedicationTaxonomyDesc_1">Nurse Practitioner</td><td ID="MedicationPhoneNumber_1">[phone]</td> [facility] ([facility]) gabapentin 300 MG Oral Capsule gabapentin 01/03/2021 12:00:00 AM EDT 300 mg by mouth completed <td ID="Medica tionRxNorm_4">427578</td><td ID="MedicationMedication_4">gabapentin</td><td ID="MedicationRoute_4">by mouth</td><td ID="MedicationRouteConcept_4">Q64674</td><td ID="MedicationStartDate_4">01/03/2021</td><td ID="MedicationStopDate_4">03/04/2021</td><td ID="MedicationDosageFrequency_4">three times a day</td><td ID="MedicationDuration_4">30</td><td ID="MedicationFormulaStrength_4">300 mg</td><td ID="MedicationDosageForm_4">capsule</td><td ID="MedicationDosageFormCode_4"></td><td ID="MedicationDosageDescription_4"> </td><td ID="MedicationMedicationId_4">[id number]</td><td ID="MedicationAccount_4">[id number]</td><td ID="MedicationNpid_4">[id number]</td><td ID="MedicationAuthorFirstName_4">Carlos Alberto</td><td ID="MedicationAuthorLastName_4">Austen</td><td ID="MedicationTaxonomyCode_4">[id number]</td><td ID="MedicationTaxonomyDesc_4">Nurse Practitioner</td><td ID="MedicationPhoneNumber_4">[phone]</td> [facility] ([facility]) gabapentin 300 MG Oral Capsule gabapentin 11/15/2020 12:00:00 AM EDT 300 mg by mouth completed <td ID="Medica tionRxNorm_2">818569</td><td ID="MedicationMedication_2">gabapentin</td><td ID="MedicationRoute_2">by mouth</td><td ID="MedicationRouteConcept_2">J46702</td><td ID="MedicationStartDate_2">11/15/2020</td><td ID="MedicationStopDate_2">12/15/2020</td><td ID="MedicationDosageFrequency_2">three times a day</td><td ID="MedicationDuration_2">30</td><td ID="MedicationFormulaStrength_2">300 mg</td><td ID="MedicationDosageForm_2">capsule</td><td ID="MedicationDosageFormCode_2"></td><td ID="MedicationDosageDescription_2"> </td><td ID="MedicationMedicationId_2">[id number]</td><td ID="MedicationAccount_2">[id number]</td><td ID="MedicationNpid_2">[id number]</td><td ID="MedicationAuthorFirstName_2">Carlos Alberto</td><td ID="MedicationAuthorLastName_2">Austen</td><td ID="MedicationTaxonomyCode_2">[id number]</td><td ID="MedicationTaxonomyDesc_2">Nurse Practitioner</td><td ID="MedicationPhoneNumber_2">[phone]</td> [facility] ([facility]) Haloperidol 10 MG Oral Tablet haloperidol 11/15/2020 12:00:00 AM EDT 10 mg by mouth completed <td ID="Medica tionRxNorm_5">917875</td><td ID="MedicationMedication_5">haloperidol</td><td ID="MedicationRoute_5">by mouth</td><td ID="MedicationRouteConcept_5">I38941</td><td ID="MedicationStartDate_5">11/15/2020</td><td ID="MedicationStopDate_5">03/04/2021</td><td ID="MedicationDosageFrequency_5">three times a day</td><td ID="MedicationDuration_5">30</td><td ID="MedicationFormulaStrength_5">10 mg</td><td ID="MedicationDosageForm_5">tablet</td><td ID="MedicationDosageFormCode_5"></td><td ID="MedicationDosageDescription_5"> </td><td ID="MedicationMedicationId_5">[id number]</td><td ID="MedicationAccount_5">[id number]</td><td ID="MedicationNpid_5">[id number]</td><td ID="MedicationAuthorFirstName_5">Carlos Alberto</td><td ID="MedicationAuthorLastName_5">Austen</td><td ID="MedicationTaxonomyCode_5">[id number]</td><td ID="MedicationTaxonomyDesc_5">Nurse Practitioner</td><td ID="MedicationPhoneNumber_5">[phone]</td> [facility] ([facility]) benztropine mesylate 1 MG Oral Tablet benztropine 10/18/2020 12:00 :00 AM EDT 1 mg by mouth completed <td ID="Me dicationRxNorm_1">947772</td><td ID="MedicationMedication_1">benztropine</td><td ID="MedicationRoute_1">by mouth</td><td ID="MedicationRouteConcept_1">H36483</td><td ID="MedicationStartDate_1">10/18/2020</td><td ID="MedicationStopDate_1">03/04/2021</td><td ID="MedicationDosageFrequency_1">twice a day</td><td ID="MedicationDuration_1">30</td><td ID="MedicationFormulaStrength_1">1 mg</td><td ID="MedicationDosageForm_1">tablet</td><td ID="MedicationDosageFormCode_1"></td><td ID="MedicationDosageDescription_1"></td><td ID="MedicationMedicationId_1">[id number]</td><td ID="MedicationAccount_1">[id number]</td><td ID="MedicationNpid_1">[id number]</td><td ID="MedicationAuthorFirstName_1">Carlos Alberto</td><td ID="MedicationAuthorLastName_1">Austen</td><td ID="MedicationTaxonomyCode_1">[id number]</td><td ID="MedicationTaxonomyDesc_1">Nurse Practitioner</td><td ID="MedicationPhoneNumber_1">[phone]</td> [facility] ([facility]) benztropine mesylate 1 MG Oral Tablet benztropine 07/10/2020 12:00 :00 AM EST 1 mg by mouth completed <td ID="Me dicationRxNorm_2">372505</td><td ID="MedicationMedication_2">benztropine</td><td ID="MedicationRoute_2">by mouth</td><td ID="MedicationRouteConcept_2">V75476</td><td ID="MedicationStartDate_2">07/10/2020</td><td ID="MedicationStopDate_2">10/26/2020</td><td ID="MedicationDosageFrequency_2">at bedtime</td><td ID="MedicationDuration_2">30</td><td ID="MedicationFormulaStrength_2">1 mg</td><td ID="MedicationDosageForm_2">tablet</td><td ID="MedicationDosageFormCode_2"></td><td ID="MedicationDosageDescription_2"></td><td ID="MedicationMedicationId_2">[id number]</td><td ID="MedicationAccount_2">[id number]</td><td ID="MedicationNpid_2">[id number]</td><td ID="MedicationAuthorFirstName_2">Carlos Alberto</td><td ID="MedicationAuthorLastName_2">Austen</td><td ID="MedicationTaxonomyCode_2">[id number]</td><td ID="MedicationTaxonomyDesc_2">Nurse Practitioner</td><td ID="MedicationPhoneNumber_2">[phone]</td> [facility] ([facility]) quetiapine 400 MG Oral Tablet quetiapine 06/12/2020 12:00:00 AM EST 400 mg by mouth completed <td ID="Medica tionRxNorm_3">532168</td><td ID="MedicationMedication_3">quetiapine</td><td ID="MedicationRoute_3">by mouth</td><td ID="MedicationRouteConcept_3">W99287</td><td ID="MedicationStartDate_3">06/12/2020</td><td ID="MedicationStopDate_3">09/10/2020</td><td ID="MedicationDosageFrequency_3">every night</td><td ID="MedicationDuration_3">30</td><td ID="MedicationFormulaStrength_3">400 mg</td><td ID="MedicationDosageForm_3">tablet</td><td ID="MedicationDosageFormCode_3"></td><td ID="MedicationDosageDescription_3"></td><td ID="MedicationMedicationId_3">74477</td><td ID="MedicationAccount_3">[id number]</td><td ID="MedicationNpid_3">[id number]</td><td ID="MedicationAuthorFirstName_3">Carlos Alberto</td><td ID="MedicationAuthorLastName_3">Austen</td><td ID="MedicationTaxonomyCode_3">[id number]</td><td ID="MedicationTaxonomyDesc_3">Nurse Practitioner</td><td ID="MedicationPhoneNumber_3">[phone]</td> [facility] ([facility]) Haloperidol 10 MG Oral Tablet haloperidol 06/12/2020 12:00:00 AM EST 10 mg by mouth completed <td ID="Medica tionRxNorm_1">712810</td><td ID="MedicationMedication_1">haloperidol</td><td ID="MedicationRoute_1">by mouth</td><td ID="MedicationRouteConcept_1">H68824</td><td ID="MedicationStartDate_1">06/12/2020</td><td ID="MedicationStopDate_1"></td><td ID="MedicationDosageFrequency_1">twice a day</td><td ID="MedicationDuration_1">30</td><td ID="MedicationFormulaStrength_1">10 mg</td><td ID="MedicationDosageForm_1">tablet</td><td ID="MedicationDosageFormCode_1"></td><td ID="MedicationDosageDescription_1"></td><td ID="MedicationMedicationId_1">[id number]</td><td ID="MedicationAccount_1">[id number]</td><td ID="MedicationNpid_1">[id number]</td><td ID="MedicationAuthorFirstName_1">Carlos Alberto</td><td ID="MedicationAuthorLastName_1">Austen</td><td ID="MedicationTaxonomyCode_1">[id number]</td><td ID="MedicationTaxonomyDesc_1">Nurse Practitioner</td><td ID="MedicationPhoneNumber_1">[phone]</td> [facility] ([facility]) quetiapine 400 MG Oral Tablet quetiapine 06/12/2020 12:00:00 AM EST 400 mg by mouth completed <td ID="Medica tionRxNorm_4">728307</td><td ID="MedicationMedication_4">quetiapine</td><td ID="MedicationRoute_4">by mouth</td><td ID="MedicationRouteConcept_4">M96246</td><td ID="MedicationStartDate_4">06/12/2020</td><td ID="MedicationStopDate_4">09/10/2020</td><td ID="MedicationDosageFrequency_4">every night</td><td ID="MedicationDuration_4">30</td><td ID="MedicationFormulaStrength_4">400 mg</td><td ID="MedicationDosageForm_4">tablet</td><td ID="MedicationDosageFormCode_4"></td><td ID="MedicationDosageDescription_4"></td><td ID="MedicationMedicationId_4">[id number]</td><td ID="MedicationAccount_4">[id number]</td><td ID="MedicationNpid_4">[id number]</td><td ID="MedicationAuthorFirstName_4">Acrlos Alberto</td><td ID="MedicationAuthorLastName_4">Austen</td><td ID="MedicationTaxonomyCode_4">[id number]</td><td ID="MedicationTaxonomyDesc_4">Nurse Practitioner</td><td ID="MedicationPhoneNumber_4">[phone]</td> [facility] ([facility]) gabapentin 400 MG Oral Capsule gabapentin 06/12/2020 12:00:00 AM EST 400 mg by mouth completed <td ID="Medica tionRxNorm_3">294040</td><td ID="MedicationMedication_3">gabapentin</td><td ID="MedicationRoute_3">by mouth</td><td ID="MedicationRouteConcept_3">J95497</td><td ID="MedicationStartDate_3">06/12/2020</td><td ID="MedicationStopDate_3">09/10/2020</td><td ID="MedicationDosageFrequency_3">three times a day</td><td ID="MedicationDuration_3">30</td><td ID="MedicationFormulaStrength_3">400 mg</td><td ID="MedicationDosageForm_3">capsule</td><td ID="MedicationDosageFormCode_3"></td><td ID="MedicationDosageDescription_3"> </td><td ID="MedicationMedicationId_3">[id number]</td><td ID="MedicationAccount_3">[id number]</td><td ID="MedicationNpid_3">[id number]</td><td ID="MedicationAuthorFirstName_3">Carlos Alberto</td><td ID="MedicationAuthorLastName_3">Austen</td><td ID="MedicationTaxonomyCode_3">[id number]</td><td ID="MedicationTaxonomyDesc_3">Nurse Practitioner</td><td ID="MedicationPhoneNumber_3">[phone]</td> [facility] ([facility]) Trazodone Hydrochloride 100 MG Oral Tablet trazodone 04/09 12:00:00 AM EDT 100 mg by mouth completed <td ID="Medic ationRxNorm_5">674651</td><td ID="MedicationMedication_5">trazodone</td><td ID="MedicationRoute_5">by mouth</td><td ID="MedicationRouteConcept_5">E43689</td><td ID="MedicationStartDate_5">04/09/2020</td><td ID="MedicationStopDate_5">07/08/2020</td><td ID="MedicationDosageFrequency_5">at bedtime</td><td ID="MedicationDuration_5">30</td><td ID="MedicationFormulaStrength_5">100 mg</td><td ID="MedicationDosageForm_5">tablet</td><td ID="MedicationDosageFormCode_5"></td><td ID="MedicationDosageDescription_5"></td><td ID="MedicationMedicationId_5">[id number]</td><td ID="MedicationAccount_5">[id number]</td><td ID="MedicationNpid_5">[id number]</td><td ID="MedicationAuthorFirstName_5">Carlos Alberto</td><td ID="MedicationAuthorLastName_5">Austen</td><td ID="MedicationTaxonomyCode_5">[id number]</td><td ID="MedicationTaxonomyDesc_5">Nurse Practitioner</td><td ID="MedicationPhoneNumber_5">[phone]</td> [facility] ([facility]) gabapentin 300 MG Oral Capsule gabapentin 04/09/2020 12:00:00 AM EDT 300 mg by mouth completed <td ID="Medica tionRxNorm_6">198432</td><td ID="MedicationMedication_6">gabapentin</td><td ID="MedicationRoute_6">by mouth</td><td ID="MedicationRouteConcept_6">W82645</td><td ID="MedicationStartDate_6">04/09/2020</td><td ID="MedicationStopDate_6">07/08/2020</td><td ID="MedicationDosageFrequency_6">three times a day</td><td ID="MedicationDuration_6">30</td><td ID="MedicationFormulaStrength_6">300 mg</td><td ID="MedicationDosageForm_6">capsule</td><td ID="MedicationDosageFormCode_6"></td><td ID="MedicationDosageDescription_6"> </td><td ID="MedicationMedicationId_6">[id number]</td><td ID="MedicationAccount_6">[id number]</td><td ID="MedicationNpid_6">[id number]</td><td ID="MedicationAuthorFirstName_6">Carlos Alberto</td><td ID="MedicationAuthorLastName_6">Austen</td><td ID="MedicationTaxonomyCode_6">[id number]</td><td ID="MedicationTaxonomyDesc_6">Nurse Practitioner</td><td ID="MedicationPhoneNumber_6">[phone]</td> [facility] ([facility]) Haloperidol 10 MG Oral Tablet haloperidol 04/09/2020 12:00:00 AM EDT 10 mg by mouth completed <td ID="Medica tionRxNorm_2">761571</td><td ID="MedicationMedication_2">haloperidol</td><td ID="MedicationRoute_2">by mouth</td><td ID="MedicationRouteConcept_2">W50857</td><td ID="MedicationStartDate_2">04/09/2020</td><td ID="MedicationStopDate_2">05/09/2020</td><td ID="MedicationDosageFrequency_2">twice a day</td><td ID="MedicationDuration_2">30</td><td ID="MedicationFormulaStrength_2">10 mg</td><td ID="MedicationDosageForm_2">tablet</td><td ID="MedicationDosageFormCode_2"></td><td ID="MedicationDosageDescription_2"></td><td ID="MedicationMedicationId_2">[id number]</td><td ID="MedicationAccount_2">[id number]</td><td ID="MedicationNpid_2">[id number]</td><td ID="MedicationAuthorFirstName_2">Carlos Alberto</td><td ID="MedicationAuthorLastName_2">Austen</td><td ID="MedicationTaxonomyCode_2">[id number]</td><td ID="MedicationTaxonomyDesc_2">Nurse Practitioner</td><td ID="MedicationPhoneNumber_2">[phone]</td> [facility] ([facility]) Trazodone Hydrochloride 100 MG Oral Tablet trazodone 04/09 12:00:00 AM EDT 100 mg by mouth completed <td ID="Medic ationRxNorm_2">975410</td><td ID="MedicationMedication_2">trazodone</td><td ID="MedicationRoute_2">by mouth</td><td ID="MedicationRouteConcept_2">M06785</td><td ID="MedicationStartDate_2">04/09/2020</td><td ID="MedicationStopDate_2">09/10/2020</td><td ID="MedicationDosageFrequency_2">at bedtime</td><td ID="MedicationDuration_2">30</td><td ID="MedicationFormulaStrength_2">100 mg</td><td ID="MedicationDosageForm_2">tablet</td><td ID="MedicationDosageFormCode_2"></td><td ID="MedicationDosageDescription_2"></td><td ID="MedicationMedicationId_2">[id number]</td><td ID="MedicationAccount_2">[id number]</td><td ID="MedicationNpid_2">[id number]</td><td ID="MedicationAuthorFirstName_2">Carlos Alberto</td><td ID="MedicationAuthorLastName_2">Austen</td><td ID="MedicationTaxonomyCode_2">[id number]</td><td ID="MedicationTaxonomyDesc_2">Nurse Practitioner</td><td ID="MedicationPhoneNumber_2">[phone]</td> [facility] ([facility]) Trazodone Hydrochloride 100 MG Oral Tablet trazodone 04/09 12:00:00 AM EDT 100 mg by mouth completed <td ID="Medic ationRxNorm_3">064242</td><td ID="MedicationMedication_3">trazodone</td><td ID="MedicationRoute_3">by mouth</td><td ID="MedicationRouteConcept_3">C44496</td><td ID="MedicationStartDate_3">04/09/2020</td><td ID="MedicationStopDate_3">09/10/2020</td><td ID="MedicationDosageFrequency_3">at bedtime</td><td ID="MedicationDuration_3">30</td><td ID="MedicationFormulaStrength_3">100 mg</td><td ID="MedicationDosageForm_3">tablet</td><td ID="MedicationDosageFormCode_3"></td><td ID="MedicationDosageDescription_3"></td><td ID="MedicationMedicationId_3">[id number]</td><td ID="MedicationAccount_3">[id number]</td><td ID="MedicationNpid_3">[id number]</td><td ID="MedicationAuthorFirstName_3">Carlos Alberto</td><td ID="MedicationAuthorLastName_3">Austen</td><td ID="MedicationTaxonomyCode_3">[id number]</td><td ID="MedicationTaxonomyDesc_3">Nurse Practitioner</td><td ID="MedicationPhoneNumber_3">[phone]</td> [facility] ([facility]) Trazodone Hydrochloride 100 MG Oral Tablet trazodone 04/09 12:00:00 AM EDT 100 mg by mouth completed <td ID="Medic ationRxNorm_1">406523</td><td ID="MedicationMedication_1">trazodone</td><td ID="MedicationRoute_1">by mouth</td><td ID="MedicationRouteConcept_1">V31591</td><td ID="MedicationStartDate_1">04/09/2020</td><td ID="MedicationStopDate_1">07/08/2020</td><td ID="MedicationDosageFrequency_1">at bedtime</td><td ID="MedicationDuration_1">30</td><td ID="MedicationFormulaStrength_1">100 mg</td><td ID="MedicationDosageForm_1">tablet</td><td ID="MedicationDosageFormCode_1"></td><td ID="MedicationDosageDescription_1"></td><td ID="MedicationMedicationId_1">[id number]</td><td ID="MedicationAccount_1">[id number]</td><td ID="MedicationNpid_1">[id number]</td><td ID="MedicationAuthorFirstName_1">Carlos Alberto</td><td ID="MedicationAuthorLastName_1">Austen</td><td ID="MedicationTaxonomyCode_1">[id number]</td><td ID="MedicationTaxonomyDesc_1">Nurse Practitioner</td><td ID="MedicationPhoneNumber_1">[phone]</td> [facility] ([facility]) gabapentin 300 MG Oral Capsule gabapentin 04/02/2020 12:00:00 AM EDT 300 mg by mouth completed <td ID="Medica tionRxNorm_1">055129</td><td ID="MedicationMedication_1">gabapentin</td><td ID="MedicationRoute_1">by mouth</td><td ID="MedicationRouteConcept_1">O14673</td><td ID="MedicationStartDate_1">04/02/2020</td><td ID="MedicationStopDate_1">04/09/2020</td><td ID="MedicationDosageFrequency_1">three times a day</td><td ID="MedicationDuration_1">7</td><td ID="MedicationFormulaStrength_1">300 mg</td><td ID="MedicationDosageForm_1">capsule</td><td ID="MedicationDosageFormCode_1"></td><td ID="MedicationDosageDescription_1"> </td><td ID="MedicationMedicationId_1">[id number]</td><td ID="MedicationAccount_1">[id number]</td><td ID="MedicationNpid_1">[id number]</td><td ID="MedicationAuthorFirstName_1">Carlos Alberto</td><td ID="MedicationAuthorLastName_1">Austen</td><td ID="MedicationTaxonomyCode_1">[id number]</td><td ID="MedicationTaxonomyDesc_1">Nurse Practitioner</td><td ID="MedicationPhoneNumber_1">[phone]</td> [facility] ([facility]) quetiapine 400 MG Oral Tablet [Seroquel] Seroquel 01/09/2020 12 :00:00 AM EDT 400 mg by mouth completed <td ID="Me dicationRxNorm_2">798820</td><td ID="MedicationMedication_2">Seroquel</td><td ID="MedicationRoute_2">by mouth</td><td ID="MedicationRouteConcept_2">H83790</td><td ID="MedicationStartDate_2">01/09/2020</td><td ID="MedicationStopDate_2">03/09/2020</td><td ID="MedicationDosageFrequency_2">at bedtime</td><td ID="MedicationDuration_2">30</td><td ID="MedicationFormulaStrength_2">400 mg</td><td ID="MedicationDosageForm_2">tablet</td><td ID="MedicationDosageFormCode_2"></td><td ID="MedicationDosageDescription_2"></td><td ID="MedicationMedicationId_2">[id number]</td><td ID="MedicationAccount_2">[id number]</td><td ID="MedicationNpid_2">[id number]</td><td ID="MedicationAuthorFirstName_2">Carlos Alberto</td><td ID="MedicationAuthorLastName_2">Austen</td><td ID="MedicationTaxonomyCode_2">[id number]</td><td ID="MedicationTaxonomyDesc_2">Nurse Practitioner</td><td ID="MedicationPhoneNumber_2">[phone]</td> [facility] ([facility]) gabapentin 300 MG Oral Capsule gabapentin 11/30/2019 12:00:00 AM EDT 300 mg completed <td ID="Medicat ionRxNorm_1">656969</td><td ID="MedicationMedication_1">gabapentin</td><td ID="MedicationRoute_1"></td><td ID="MedicationRouteConcept_1"></td><td ID="MedicationStartDate_1">11/30/2019</td><td ID="MedicationStopDate_1">03/09/2020</td><td ID="MedicationDosageFrequency_1"></td><td ID="MedicationDuration_1">30</td><td ID="MedicationFormulaStrength_1">300 mg</td><td ID="MedicationDosageForm_1">capsule</td><td ID="MedicationDosageFormCode_1"></td><td ID="MedicationDosageDescription_1"></td><td ID="MedicationMedicationId_1">[id number]</td><td ID="MedicationAccount_1">[id number]</td><td ID="MedicationNpid_1">[id number]</td><td ID="MedicationAuthorFirstName_1">Carlos Alberto</td><td ID="MedicationAuthorLastName_1">Austen</td><td ID="MedicationTaxonomyCode_1">[id number]</td><td ID="MedicationTaxonomyDesc_1">Nurse Practitioner</td><td ID="MedicationPhoneNumber_1">[phone]</td> [facility] ([facility]) 24 HR Metformin hydrochloride 500 MG Ext ended Release Oral Tablet metformin (GLUCOPHAGE-XR) 500 MG 24 hr tablet metformin (GLUCOPHAGE-XR) 500 MG 24 hr tablet 10/16/2014 12:00:00 AM EDT aborted [facility] quetiapine 100 MG Oral Tablet quetiapine (SEROQUEL) 10 0 MG tablet quetiapine (SEROQUEL) 100 MG tablet 09/08/2014 12:00:00 AM EDT aborted [facility] Trazodone Hydrochloride 100 MG Oral Tablet trazodone ( DESYREL) 100 MG tablet trazodone (DESYREL) 100 MG tablet 09/08/2014 12:00:00 AM EDT aborted [facility] 24 HR Glipizide 2.5 MG Extended Release Oral Tablet GLIPIZIDE XL 2.5 MG 24 hr tablet GLIPIZIDE XL 2.5 MG 24 hr tablet 01/20/2014 12:00:00 AM EDT aborted [facility] Cholecalciferol 2000 UNT Oral Capsule Vitamin D3 50 mc g (2,000 unit) capsule Vitamin D3 50 mcg (2,000 unit) capsule completed cholecalciferol 0.05 MG Oral Capsule [facility] ([facility]) Steglatro 15 mg tablet [id number] complete d ertugliflozin 15 MG Oral Tablet [Steglatro] [facility] ([facility]) Steglatro 5 mg tablet [id number] completed ertugliflozin 5 MG Oral Tablet [Steglatro] [facility] ([facility]) gabapentin 400 MG Oral Capsule gabapenti n 400 mg capsule TAKE ONE CAPSULE BY MOUTH FOUR TIMES DAILY gabapentin 400 mg capsule TAKE ONE CAPSU LE BY MOUTH FOUR TIMES DAILY completed gabapentin 400 MG Oral Capsule [facility] ([facility]) Naltrexone hydrochloride 50 MG Oral Tablet naltrexone 50 mg tablet naltrexone 50 mg tablet completed naltrexone hydrochloride 50 MG Oral Tablet [facility] ([facility]) OneTouch Ultra Blue Test Strip [id number] completed OneTouch Ultra Blue Test Strip [facility] ([facility]) Trazodone Hydrochloride 100 MG Oral Tabl et trazodone 100 mg tablet TAKE TWO TABLETS BY MOUTH AT BEDTIME trazodone 100 mg tablet TAKE TWO TABLETS BY MOUTH AT BEDTIME completed trazodone hyd rochloride 100 MG Oral Tablet [facility] ([facility]) tramadol hydrochloride 50 MG Oral Tablet tramadol 50 m g tablet tramadol 50 mg tablet completed tramadol hydroc hloride 50 MG Oral Tablet [facility] ([facility]) Metformin hydrochloride 850 MG Oral Tabl et metformin 850 mg tablet TAKE ONE TABLET BY MOUTH TWICE DAILY with meals metformin 850 mg tablet TAKE ONE TABLET BY MOUTH TWICE DAILY with meals comple jaylyn metformin hydrochloride 850 MG Oral Tablet [facility] ([facility]) Acetaminophen 300 MG / Codeine [...] 30 MG Oral Tablet [facility] ([facility]) Trazodone Hydrochloride 50 MG Oral Table t trazodone 50 mg tablet TAKE ONE TABLET BY MOUTH AT BEDTIME NEEDED trazodone 50 mg tablet TAKE ONE TABLET B Y MOUTH AT BEDTIME NEEDED completed trazodone hydrochloride 50 MG Oral Tablet [facility] ([facility]) Acetaminophen 300 MG / Codeine [...] 30 MG Oral Tablet [facility] ([facility]) pen needles mis [id number] completed pen needles mis [id number] [facility] ([facility]) meloxicam 15 MG Oral Tablet meloxicam 15 mg tablet meloxicam 15 mg ta blet completed meloxicam 15 MG Oral Tablet [facility] ([facility]) Trazodone Hydrochloride 50 MG Oral Table t trazodone 50 mg tablet TAKE ONE TABLET BY MOUTH AT BEDTIME NEEDED trazodone 50 mg tablet TAKE ONE TABLET B Y MOUTH AT BEDTIME NEEDED completed trazodone hydrochloride 50 MG Oral Tablet [facility] ([facility]) tizanidine 2 MG Oral Tablet tizanidine 2 mg tablet tizanidine 2 mg ta blet completed tizanidine 2 MG Oral Tablet [facility] ([facility]) OneTouch Ultra2 Meter kit [id number] compl eted OneTouch Ultra2 Meter kit [facility] ([facility]) Acetaminophen 300 MG / Codeine [...] 30 MG Oral Tablet [facility] ([facility]) celecoxib 200 MG Oral Capsule celecoxib 200 mg capsule celec oxib 200 mg capsule completed celecoxib 200 MG Oral Capsule [facility] ([facility]) tizanidine 2 MG Oral Tablet tizanidine 2 mg tablet tizanidine 2 mg ta blet completed tizanidine 2 MG Oral Tablet [facility] ([facility]) Steglatro 5 mg tablet TAKE ONE TABLET BY MOUTH ONCE DAILY [id number] completed ertugliflozin 5 MG Oral Tablet [ Steglatro] [facility] ([facility]) insulin syrg mis 1ml/29g completed insulin syrg mis 1ml/29g [facility] ([facility]) Naltrexone hydrochloride 50 MG Oral Tablet naltrexone 50 mg tablet naltrexone 50 mg tablet completed naltrexone hydrochloride 50 MG Oral Tablet [facility] ([facility]) insulin syrg mis 1ml/29g completed insulin syrg mis 1ml/29g [facility] ([facility]) Naltrexone hydrochloride 50 MG Oral Tablet naltrexone 50 mg tablet naltrexone 50 mg tablet completed naltrexone hydrochloride 50 MG Oral Tablet [facility] ([facility]) Trazodone Hydrochloride 50 MG Oral Table t trazodone 50 mg tablet TAKE ONE TABLET BY MOUTH AT BEDTIME NEEDED trazodone 50 mg tablet TAKE ONE TABLET B Y MOUTH AT BEDTIME NEEDED completed trazodone hydrochloride 50 MG Oral Tablet [facility] ([facility]) OneTouch Ultra Test strips ONE MISCELLANEOUS THREE TIMES A D AY NEEDED [id number] completed OneTouch Ultra Test strips [facility] ([facility]) quetiapine 300 MG Oral Tablet quetiapine 300 mg tablet queti apine 300 mg tablet completed quetiapine 300 MG Oral Tablet [facility] ([facility]) tizanidine 2 MG Oral Tablet tizanidine 2 mg tablet tizanidine 2 mg ta blet completed tizanidine 2 MG Oral Tablet [facility] ([facility]) insulin syrg mis 0.5/31g completed insulin syrg mis 0.5/31g [facility] ([facility]) OneTouch Ultra2 Meter kit [id number] compl eted OneTouch Ultra2 Meter kit [facility] ([facility]) OneTouch Ultra Blue Test Strip 178792 completed OneTouch Ultra Blue Test Strip [facility] ([facility]) Trazodone Hydrochloride 50 MG Oral Table t trazodone 50 mg tablet TAKE ONE TABLET BY MOUTH AT BEDTIME NEEDED trazodone 50 mg tablet TAKE ONE TABLET B Y MOUTH AT BEDTIME NEEDED completed trazodone hydrochloride 50 MG Oral Tablet [facility] ([facility]) OneTouch Ultra Blue Test Strip 563307 completed OneTouch Ultra Blue Test Strip [facility] ([facility]) celecoxib 200 MG Oral Capsule celecoxib 200 mg capsule celec oxib 200 mg capsule completed celecoxib 200 MG Oral Capsule [facility] ([facility]) Steglatro 5 mg tablet 122958 completed ertugliflozin 5 MG Oral Tablet [Steglatro] [facility] ([facility]) insulin syrg mis 0.5/31g completed insulin syrg mis 0.5/31g [facility] ([facility]) Steglatro 15 mg tablet 318391 complete d ertugliflozin 15 MG Oral Tablet [Steglatro] [place] ([facility]) OneTouch Ultra Blue Test Strip 747130 completed OneTouch Ultra Blue Test Strip [place] ([facility]) insulin syrg mis 1ml/29g completed insulin syrg mis 1ml/29g [place] ([facility]) Amoxicillin 500 MG Oral Capsule amoxicillin 500 mg cap willie amoxicillin 500 mg capsule completed amoxicillin 50 0 MG Oral Capsule [place] ([facility]) Metformin hydrochloride 850 MG Oral Tabl et metformin 850 mg tablet TAKE ONE TABLET BY MOUTH TWICE DAILY with meals metformin 850 mg tablet TAKE ONE TABLET BY MOUTH TWICE DAILY with meals comple jaylyn metformin hydrochloride 850 [facility] empagliflo[facility] 25 MG Oral Tablet [Jardiance] Jardiance 25 mg tablet Jardiance 25 mg tablet completed empagliflozi n 25 MG Oral Tablet [Jardiance] [place] ([facility]) Levofloxacin 500 MG Oral Tablet levoflox acin 500 mg tablet TAKE ONE TABLET BY MOUTH ONCE DAILY levofloxacin 500 mg tablet TAKE ONE TABLET BY MOUTH ON CE DAILY completed levofloxacin 5 00 MG Oral Tablet [place] ([facility]) Nicotine 2 MG Chewing Gum nicotine (efrain crilex) 2 mg gum CHEW ONE PIECE BY MOUTH EVERY 2 HOURS NEEDED nicotine (polacrilex) 2 mg gum CHEW ONE PIECE BY MOUTH EVERY 2 HOURS NEEDED completed nicotine 2 MG Chewing Gum [place] ([facility]) Trazodone Hydrochloride 50 MG Oral Table t trazodone 50 mg tablet TAKE ONE TABLET BY MOUTH AT BEDTIME NEEDED trazodone 50 mg tablet TAKE ONE TABLET B Y MOUTH AT BEDTIME NEEDED completed trazodone hydrochloride 50 MG Oral Tablet [facility] ([facility]) Levofloxacin 500 MG Oral Tablet levoflox acin 500 mg tablet TAKE ONE TABLET BY MOUTH ONCE DAILY levofloxacin 500 mg tablet TAKE ONE TABLET BY MOUTH ON CE DAILY completed levofloxacin 5 00 MG Oral Tablet [place] ([facility]) Trazodone Hydrochloride 100 MG Oral Tabl et trazodone 100 mg tablet TAKE TWO TABLETS BY MOUTH AT BEDTIME trazodone 100 mg tablet TAKE TWO TABLETS BY MOUTH AT BEDTIME completed trazodone hyd rochloride 100 MG Oral Tablet [facility] ([facility]) meloxicam 15 MG Oral Tablet meloxicam 15 mg tablet TAKE ONE TABLET BY MOUTH ONCE DAILY meloxicam 15 mg tablet TAKE ONE TABLET BY MOUTH ONCE DAILY completed meloxicam 15 MG Oral Tablet [place] ([facility]) Naltrexone hydrochloride 50 MG Oral Tablet naltrexone 50 mg tablet naltrexone 50 mg tablet completed naltrexone hydrochloride 50 MG Oral Tablet [facility] ([facility]) OneTouch Ultra2 Meter USE DIRECTED TO TEST BLOOD ÁLVAREZ GAR THREE TIMES DAILY [id number] completed OneTouch Ultra2 Meter [place] ([facility]) insulin syrg mis 0.5/31g completed insulin syrg mis 0.5/31g [place] ([facility]) Levofloxacin 500 MG Oral Tablet levoflox acin 500 mg tablet TAKE ONE TABLET BY MOUTH ONCE DAILY levofloxacin 500 mg tablet TAKE ONE TABLET BY MOUTH ON CE DAILY completed levofloxacin 5 00 MG Oral Tablet [place] ([facility]) insulin syrg mis 0.5/31g completed insulin syrg mis 0.5/31g [place] ([facility]) Trazodone Hydrochloride 50 MG Oral Table t traZODone HCl 50 MG Oral Tablet (DESYREL) traZODone HCl 50 MG Oral Tablet (DESYREL) 50 mg Oral aborted Take 50 mg by mouth nightly as needed f or Sleep [facility] Steglatro 15 mg tablet [id number] complete d ertugliflozin 15 MG Oral Tablet [Steglatro] [facility] ([facility]) Nicotine 2 MG Chewing Gum nicotine (efrain crilex) 2 mg gum CHEW ONE PIECE BY MOUTH EVERY 2 HOURS NEEDED nicotine (polacrilex) 2 mg gum CHEW ONE PIECE BY MOUTH EVERY 2 HOURS NEEDED completed nicotine 2 MG Chewing Gum [facility] ([facility]) Steglatro 5 mg tablet [id number] completed ertugliflozin 5 MG Oral Tablet [Steglatro] [facility] ([facility]) tizanidine 4 MG Oral Tablet tiZANidine HCl 4 MG Oral T ablet (ZANAFLEX) tiZANidine HCl 4 MG Oral Tablet (ZANAFLEX) 4 mg Oral aborted Take 4 mg by mouth Three times daily as needed [facility] Naltrexone hydrochloride 50 MG Oral Tablet naltrexone 50 mg tablet naltrexone 50 mg tablet completed naltrexone hydrochloride 50 MG Oral Tablet [facility] ([facility]) empagliflozin 25 MG Oral Tablet [Jardiance] Jardiance 25 mg tablet Jardiance 25 mg tablet completed empagliflozi n 25 MG Oral Tablet [Jardiance] [place] ([facility]) Risperidone 4 MG Oral Tablet risperidone 4 mg tablet risperidone 4 mg tablet completed risperidone 4 MG Oral Tablet [place] ([facility]) Levofloxacin 500 MG Oral Tablet levoflox acin 500 mg tablet TAKE ONE TABLET BY MOUTH ONCE DAILY levofloxacin 500 mg tablet TAKE ONE TABLET BY MOUTH ON CE DAILY completed levofloxacin 5 00 MG Oral Tablet [place] ([facility]) Ergocalciferol 89132 UNT Oral Capsule Vi tamin D2 1,250 mcg (50,000 unit) capsule Vitamin D2 1,250 mcg (50,000 unit) capsule completed ergocalciferol 1.25 MG Oral Capsule [place] ([facility]) Risperidone 4 MG Oral Tablet risperidone 4 mg tablet risperidone 4 mg tablet completed risperidone 4 MG Oral Tablet [place] ([facility]) gabapentin 400 MG Oral Capsule gabapenti n 400 mg capsule TAKE ONE CAPSULE BY MOUTH FOUR TIMES DAILY gabapentin 400 mg capsule TAKE ONE CAPSU LE BY MOUTH FOUR TIMES DAILY completed gabapentin 400 MG Oral Capsule [facility]) tramadol hydrochloride 50 MG Oral Tablet tramadol 50 m g tablet tramadol 50 mg tablet completed tramadol hydroc hloride 50 MG Oral Tablet [place] ([facility]) OneTouch Ultra2 Meter kit [id number] compl eted OneTouch Ultra2 Meter [facility] Cephalexin 500 MG Oral Capsule cephalexin 500 mg capsu le cephalexin 500 mg capsule completed cephalexin 500 MG Oral Capsule [place] ([facility]) Regular Insulin, Human 100 UNT/ML Inject able Solution insulin regular (HUMULIN R) 100 UNIT/ML injection insulin regular (HUMULIN R) 100 UNIT/ML injection Subcutaneous aborted Inject into the skin Three times daily before meals. Sliding scale insulin [facility] Acetaminophen 325 MG / Hydrocodone Tete [...] hydrocodone bitartrate 5 MG Oral Tablet [facility] ([facility]) Nicotine 2 MG Chewing Gum nicotine (efrain crilex) 2 mg gum CHEW ONE PIECE BY MOUTH EVERY 2 HOURS NEEDED nicotine (polacrilex) 2 mg gum CHEW ONE PIECE BY MOUTH EVERY 2 HOURS NEEDED completed nicotine 2 MG Chewing Gum [facility] ([facility]) gabapentin 400 MG Oral Capsule gabapenti n 400 mg capsule TAKE ONE CAPSULE BY MOUTH FOUR TIMES DAILY gabapentin 400 mg capsule TAKE ONE CAPSU LE BY MOUTH FOUR TIMES DAILY completed gabapentin 400 MG Oral Capsule [facility] [facility]) OneTouch Delica Plus Lancet 33 gauge [id number] completed OneTouch Delica Plus Lancet 33 gauge [facility] ([facility]) Cephalexin 500 MG Oral Capsule cephalexin 500 mg capsu le cephalexin 500 mg capsule completed cephalexin 500 MG Oral Capsule [facility] ([facility]) Ergocalciferol 20485 UNT Oral Capsule Vi tamin D2 1,250 mcg (50,000 unit) capsule Vitamin D2 1,250 mcg (50,000 unit) capsule completed ergocalciferol 1.25 MG Oral Capsule [facility] ([facility]) tizanidine 2 MG Oral Tablet tizanidine 2 mg tablet tizanidine 2 mg ta blet completed tizanidine 2 MG Oral Tablet [facility] ([facility]) Acetaminophen 300 MG / Codeine Phosphate 30 MG Oral Tablet acetaminophen 300 mg- codeine 30 mg tablet acetaminophen 300 mg-codeine 30 mg tablet completed acetaminophen 300 MG / codeine p hosphate 30 MG Oral Tablet [facility] ([facility]) Cephalexin 500 MG Oral Capsule cephalexin 500 mg capsu le cephalexin 500 mg capsule completed cephalexin 500 MG Oral Capsule [facility] ([facility]) meloxicam 15 MG Oral Tablet meloxicam 15 mg tablet meloxicam 15 mg ta blet completed meloxicam 15 MG Oral Tablet [facility] ([facility]) celecoxib 200 MG Oral Capsule celecoxib 200 mg capsule celec oxib 200 mg capsule completed celecoxib 200 MG Oral Capsule [facility] ([facility]) BD Ultra-Fine Mini Pen Needle 31 gauge x 3/16" USE DIRECTED with insulin pens [id number] completed BD Ultra- Fine Mini Pen Needle 31 gauge x 3/16" [place] ([facility]) gabapentin 400 MG Oral Capsule gabapenti n 400 mg capsule TAKE ONE CAPSULE BY MOUTH FOUR TIMES DAILY gabapentin 400 mg capsule TAKE ONE CAPSU LE BY MOUTH FOUR TIMES DAILY completed gabapentin 400 MG Oral Capsule [facility] ([facility]) quetiapine 200 MG Oral Tablet quetiapine 200 mg tablet TAKE ONE TABLET BY MOUTH EVERY EVENING quetiapine 200 mg tablet TAKE ONE TABLET BY MOUTH EVERY EVEN ING completed quetiapine 200 MG Oral Tablet [place] ([facility]) quetiapine 300 MG Oral Tablet quetiapine 300 mg tablet queti apine 300 mg tablet completed quetiapine 300 MG Oral Tablet [facility] ([facility]) tizanidine 2 MG Oral Tablet tizanidine 2 mg tablet tizanidine 2 mg ta blet completed tizanidine 2 MG Oral Tablet [facility] ([facility]) Trazodone Hydrochloride 100 MG Oral Tabl et trazodone 100 mg tablet TAKE TWO TABLETS BY MOUTH AT BEDTIME trazodone 100 mg tablet TAKE TWO TABLETS BY MOUTH AT BEDTIME completed trazodone hyd rochloride 100 MG Oral Tablet [facility] ([facility]) OneTouch Ultra Test strips ONE MISCELLANEOUS THREE TIMES A D AY NEEDED 081908 completed OneTouch Ultra Test strips [facility] ([facility]) quetiapine 400 MG Oral Tablet quetiapine 400 mg tablet TAKE ONE TABLET BY MOUTH EVERY EVENING quetiapine 400 mg tablet TAKE ONE TABLET BY MOUTH EVERY EVEN ING completed quetiapine 400 MG Oral Tablet [facility] ([facility]) Trazodone Hydrochloride 50 MG Oral Table t trazodone 50 mg tablet TAKE ONE TABLET BY MOUTH AT BEDTIME NEEDED trazodone 50 mg tablet TAKE ONE TABLET B Y MOUTH AT BEDTIME NEEDED completed trazodone hydrochloride 50 MG Oral Tablet [facility] ([facility]) Steglatro 5 mg tablet TAKE ONE TABLET BY MOUTH ONCE DAILY 893194 completed ertugliflozin 5 MG Oral Tablet [ Steglatro] [place] ([facility]) Steglatro 15 mg tablet [id number] complete d ertugliflozin 15 MG Oral Tablet [Steglatro] [facility] ([facility]) celecoxib 200 MG Oral Capsule celecoxib 200 mg capsule celec oxib 200 mg capsule completed celecoxib 200 MG Oral Capsule [facility] ([facility]) Risperidone 4 MG Oral Tablet risperidone 4 mg tablet risperidone 4 mg tablet completed risperidone 4 MG Oral Tablet [facility] ([facility]) Amoxicillin 500 MG Oral Capsule amoxicillin 500 mg cap willie amoxicillin 500 mg capsule completed amoxicillin 50 0 MG Oral Capsule [facility] ([facility]) insulin syrg mis 1ml/29g completed insulin syrg mis 1ml/29g [facility] ([facility]) pen needles mis [id number] completed pen needles mis [id number] [facility] ([facility]) quetiapine 400 MG Oral Tablet quetiapine 400 mg tablet TAKE ONE TABLET BY MOUTH EVERY EVENING quetiapine 400 mg tablet TAKE ONE TABLET BY MOUTH EVERY EVEN ING completed quetiapine 400 MG Oral Tablet [facility] ([facility]) OneTouch Ultra2 Meter USE DIRECTED TO TEST BLOOD ÁLVAREZ GAR THREE TIMES DAILY 021615 completed OneTouch Ultra2 Meter [facility] ([facility]) Risperidone 4 MG Oral Tablet risperidone 4 mg tablet risperidone 4 mg tablet completed risperidone 4 MG Oral Tablet [facility] ([facility]) Acetaminophen 325 MG / Hydrocodone Tete trate [...] hydrocodone bitartrate 5 MG Oral Tablet [facility] ([facility]) gabapentin 400 MG Oral Capsule gabapenti n 400 mg capsule TAKE ONE CAPSULE BY MOUTH FOUR TIMES DAILY gabapentin 400 mg capsule TAKE ONE CAPSU LE BY MOUTH FOUR TIMES DAILY completed gabapentin 400 MG Oral Capsule [facility] ([facility]) OneTouch Ultra2 Meter USE DIRECTED TO TEST BLOOD ÁLVAREZ GAR THREE TIMES DAILY 044200 completed OneTouch Ultra2 Meter [facility] ([facility]) Ibuprofen 800 MG Oral Tablet ibuprofen 8 [...] 0.05 MG Oral Capsule [facility] ([facility]) Steglatro 5 mg tablet 139588 completed ertugliflozin 5 MG Oral Tablet [Steglatro] [facility] ([facility]) pen needles mis [id number] completed pen needles mis [id number] [facility] ([facility]) insulin syrg mis 1ml/29g completed insulin syrg mis 1ml/29g [facility] ([facility]) quetiapine 400 MG Oral Tablet quetiapine 400 mg tablet TAKE ONE TABLET BY MOUTH EVERY EVENING quetiapine 400 mg tablet TAKE ONE TABLET BY MOUTH EVERY EVEN ING completed quetiapine 400 MG Oral Tablet [facility] ([facility]) Acetaminophen 325 MG / Hydrocodone [...] hydrocodone bitartrate 5 MG Oral Tablet [facility] ([facility]) Acetaminophen 300 MG / Codeine [...] 30 MG Oral Tablet [facility] ([facility]) Cholecalciferol 2000 UNT Oral Capsule Vitamin D3 50 mc g (2,000 unit) capsule Vitamin D3 50 mcg (2,000 unit) capsule completed cholecalciferol 0.05 MG Oral Capsule [facility] ([facility]) Cholecalciferol 2000 UNT Oral Capsule Vitamin D3 50 mc g (2,000 unit) capsule Vitamin D3 50 mcg (2,000 unit) capsule completed cholecalciferol 0.05 MG Oral Capsule [facility] ([facility]) Nicotine 2 MG Chewing Gum nicotine (efrain crilex) 2 mg gum CHEW ONE PIECE BY MOUTH EVERY 2 HOURS NEEDED nicotine (polacrilex) 2 mg gum CHEW ONE PIECE BY MOUTH EVERY 2 HOURS NEEDED completed nicotine 2 MG Chewing Gum [facility] ([facility]) Amoxicillin 500 MG Oral Capsule amoxicillin 500 mg cap willie amoxicillin 500 mg capsule completed amoxicillin 50 0 MG Oral Capsule [facility] ([facility]) quetiapine 400 MG Oral Tablet quetiapine 400 mg tablet TAKE ONE TABLET BY MOUTH EVERY EVENING quetiapine 400 mg tablet TAKE ONE TABLET BY MOUTH EVERY EVEN ING completed quetiapine 400 MG Oral Tablet [facility] ([facility]) Nicotine 2 MG Chewing Gum nicotine (efrain crilex) 2 mg gum CHEW ONE PIECE BY MOUTH EVERY 2 HOURS NEEDED nicotine (polacrilex) 2 mg gum CHEW ONE PIECE BY MOUTH EVERY 2 HOURS NEEDED completed nicotine 2 MG Chewing Gum [facility] ([facility]) Steglatro 5 mg tablet TAKE ONE TABLET BY MOUTH ONCE DAILY 162016 completed ertugliflozin 5 MG Oral Tablet [ Steglatro] [place] ([facility]) gabapentin 400 MG Oral Capsule gabapenti n 400 mg capsule TAKE ONE CAPSULE BY MOUTH FOUR TIMES DAILY gabapentin 400 mg capsule TAKE ONE CAPSU LE BY MOUTH FOUR TIMES DAILY completed gabapentin 400 MG Oral Capsule [facility] ([facility]) meloxicam 15 MG Oral Tablet meloxicam 15 mg tablet TAKE ONE TABLET BY MOUTH ONCE DAILY meloxicam 15 mg tablet TAKE ONE TABLET BY MOUTH ONCE DAILY completed meloxicam 15 MG Oral Tablet [facility] ([facility]) gabapentin 400 MG Oral Capsule gabapenti n 400 mg capsule TAKE ONE CAPSULE BY MOUTH FOUR TIMES DAILY gabapentin 400 mg capsule TAKE ONE CAPSU LE BY MOUTH FOUR TIMES DAILY completed gabapentin 400 MG Oral Capsule [facility] ([facility]) meloxicam 15 MG Oral Tablet meloxicam 15 mg tablet meloxicam 15 mg ta blet completed meloxicam 15 MG Oral Tablet [facility] ([facility]) Acetaminophen 325 MG / Hydrocodone [...] / [facility]rate [facility] Acet[facility] 300 MG / Codeine Phosphate [...] 30 MG Oral Tablet [facility] ([facility]) Trazodone Hydrochloride 50 MG Oral Table t trazodone 50 mg tablet TAKE ONE TABLET BY MOUTH AT BEDTIME NEEDED trazodone 50 mg tablet TAKE ONE TABLET B Y MOUTH AT BEDTIME NEEDED completed trazodone hydrochloride 50 MG Oral Tablet [facility] ([facility]) Metformin hydrochloride 850 MG Oral Tabl et metformin 850 mg tablet TAKE ONE TABLET BY MOUTH TWICE DAILY with meals metformin 850 mg tablet TAKE ONE TABLET BY MOUTH TWICE DAILY with meals comple jaylyn metformin hydrochloride 850 MG Oral Tablet [facility] ([facility]) Cephalexin 500 MG Oral Capsule cephalexin 500 mg capsu le cephalexin 500 mg capsule completed cephalexin 500 MG Oral Capsule [facility] ([facility]) Steglatro 5 mg tablet TAKE ONE TABLET BY MOUTH ONCE DAILY 518698 completed ertugliflozin 5 MG Oral Tablet [ Steglatro] [facility] ([facility]) OneTouch Ultra2 Meter USE DIRECTED TO TEST BLOOD ÁLVAREZ GAR THREE TIMES DAILY 265904 completed OneTouch Ultra2 Meter [facility] ([facility]) Metformin hydrochloride 850 MG Oral Tabl et metformin 850 mg tablet TAKE ONE TABLET BY MOUTH TWICE DAILY with meals metformin 850 mg tablet TAKE ONE TABLET BY MOUTH TWICE DAILY with meals comple jaylyn metformin hydrochloride 850 MG Oral Tablet [facility] ([facility]) Steglatro 15 mg tablet 243618 complete d ertugliflozin 15 MG Oral Tablet [Steglatro] [facility] ([facility]) meloxicam 15 MG Oral Tablet meloxicam 15 mg tablet meloxicam 15 mg ta blet completed meloxicam 15 MG Oral Tablet [facility] ([facility]) OneTouch Ultra2 Meter kit [id number] compl eted OneTouch Ultra2 Meter kit [facility] ([facility]) Metformin hydrochloride 850 MG Oral Tabl et metformin 850 mg tablet TAKE ONE TABLET BY MOUTH TWICE DAILY with meals metformin 850 mg tablet TAKE ONE TABLET BY MOUTH TWICE DAILY with meals comple jaylyn metformin hydrochloride 850 MG Oral Tablet [facility] ([facility]) pen needles mis [id number] completed pen needles mis [id number] [facility] ([facility]) Metformin hydrochloride 850 MG Oral Tabl et metformin 850 mg tablet TAKE ONE TABLET BY MOUTH TWICE DAILY with meals metformin 850 mg tablet TAKE ONE TABLET BY MOUTH TWICE DAILY with meals comple jaylyn metformin hydrochloride 850 MG Oral Tablet [facility] ([facility]) tramadol hydrochloride 50 MG Oral Tablet tramadol 50 m g tablet tramadol 50 mg tablet completed tramadol hydroc hloride 50 MG Oral Tablet [facility] ([facility]) gabapentin 300 MG Oral Capsule gabapenti n 300 mg capsule TAKE TWO CAPSULES BY MOUTH THREE TIMES DAILY gabapentin 300 mg capsule TAKE TWO CAPSU LES BY MOUTH THREE TIMES DAILY completed cari pentin 300 MG Oral Capsule [place] ([facility]) quetiapine 400 MG Oral Tablet quetiapine 400 mg tablet TAKE ONE TABLET BY MOUTH EVERY EVENING quetiapine 400 mg tablet TAKE ONE TABLET BY MOUTH EVERY EVEN ING completed quetiapine 400 MG Oral Tablet [facility] ([facility]) Amoxicillin 500 MG Oral Capsule amoxicillin 500 mg cap willie amoxicillin 500 mg capsule completed amoxicillin 50 0 MG Oral Capsule [facility] ([facility]) empagliflozin 25 MG Oral Tablet [Jardiance] Jardiance 25 mg tablet Jardiance 25 mg tablet completed empagliflozi n 25 MG Oral Tablet [Jardiance] [facility] ([facility]) Steglatro 5 mg tablet 815407 completed ertugliflozin 5 MG Oral Tablet [Steglatro] [facility] ([facility]) meloxicam 15 MG Oral Tablet meloxicam 15 mg tablet meloxicam 15 mg ta blet completed meloxicam 15 MG Oral Tablet [facility] ([facility]) Cephalexin 500 MG Oral Capsule cephalexin 500 mg capsu le cephalexin 500 mg capsule completed cephalexin 500 MG Oral Capsule [facility] ([facility]) empagliflozin 25 MG Oral Tablet [Jardiance] Jardiance 25 mg tablet Jardiance 25 mg tablet completed empagliflozi n 25 MG Oral Tablet [Jardiance] [facility] ([facility]) tramadol hydrochloride 50 MG Oral Tablet tramadol 50 m g tablet tramadol 50 mg tablet completed tramadol hydroc hloride 50 MG Oral Tablet [facility] ([facility]) OneTouch Ultra Blue Test Strip 681297 completed OneTouch Ultra Blue Test Strip [place] ([facility]) OneTouch Delica Plus Lancet 33 gauge 982202 completed OneTouch Delica Plus Lancet 33 gauge [place] ([facility]) pen needles mis [id number] completed pen needles mis [id number] [place] ([facility]) Trazodone Hydrochloride 100 MG Oral Tabl et trazodone 100 mg tablet TAKE TWO TABLETS BY MOUTH AT BEDTIME trazodone 100 mg tablet TAKE TWO TABLETS BY MOUTH AT BEDTIME completed trazodone hyd rochloride 100 MG Oral Tablet [place] ([facility]) celecoxib 200 MG Oral Capsule celecoxib 200 mg capsule celec oxib 200 mg capsule completed celecoxib 200 MG Oral Capsule [place] ([facility]) Risperidone 4 MG Oral Tablet risperidone 4 mg tablet risperidone 4 mg tablet completed risperidone 4 MG Oral Tablet [place] ([facility]) Nicotine 2 MG Chewing Gum nicotine (efrain crilex) 2 mg gum CHEW ONE PIECE BY MOUTH EVERY 2 HOURS NEEDED nicotine (polacrilex) 2 mg gum CHEW ONE PIECE BY MOUTH EVERY 2 HOURS NEEDED completed nicotine 2 MG Chewing Gum [place] ([facility]) BD Insulin Syringe Ultra-Fine 1 mL 30 ga uge x 1/2" use as directed to inject insulin five times a day ud 601620 completed BD Insulin Syringe Ultra-Fine 1 mL 30 gauge x 1/2" [place] ([facility]) Cholecalciferol 2000 UNT Oral Capsule Vitamin D3 50 mc g (2,000 unit) capsule Vitamin D3 50 mcg (2,000 unit) capsule completed cholecalciferol 0.05 MG Oral Capsule [place] ([facility]) tramadol hydrochloride 50 MG Oral Tablet tramadol 50 m g tablet tramadol 50 mg tablet completed tramadol hydroc hloride 50 MG Oral Tablet [place] ([facility]) Clonazepam 0.5 MG Oral Tablet clonazepam 0.5 mg tablet Take by oral route for 15 days. clonazepam 0.5 mg tablet Take by oral route for 15 days. completed clonazepam 0.5 MG Oral Tablet AT [facility] ([facility]) empagliflozin 25 MG Oral Tablet [Jardiance] Jardiance 25 mg tablet Jardiance 25 mg tablet completed empagliflozi n 25 MG Oral Tablet [Jardiance] [place] ([facility]) Amoxicillin 500 MG Oral Capsule amoxicillin 500 mg cap willie amoxicillin 500 mg capsule completed amoxicillin 50 0 MG Oral Capsule [facility] ([facility]) Trazodone Hydrochloride 100 MG Oral Tabl et trazodone 100 mg tablet TAKE TWO TABLETS BY MOUTH AT BEDTIME trazodone 100 mg tablet TAKE TWO TABLETS BY MOUTH AT BEDTIME completed trazodone hyd rochloride 100 MG Oral Tablet [facility] ([facility]) OneTouch Ultra2 Meter USE DIRECTED TO TEST BLOOD ÁLVAREZ GAR THREE TIMES DAILY 855369 completed OneTouch Ultra2 Meter [place] ([facility]) OneTouch Ultra2 Meter kit 181093 compl eted OneTouch Ultra2 Meter kit [place] ([facility]) insulin syrg mis 0.5/31g completed insulin syrg mis 0.5/31g [place] ([facility]) Nicotine 2 MG Chewing Gum nicotine (efrain crilex) 2 mg gum CHEW ONE PIECE BY MOUTH EVERY 2 HOURS NEEDED nicotine (polacrilex) 2 mg gum CHEW ONE PIECE BY MOUTH EVERY 2 HOURS NEEDED completed nicotine 2 MG Chewing Gum [place] ([facility]) Insurance Providers Payer name Policy type / Coverage type Policy ID Covered green party ID Covered green party's relationship to beard Policy Beard Plan Information BC HMOBLUE OPTION MC 2 [id number] MEDICAID M [id number] Self [id number] BC HMOBLUE OPTION MC 2 [id number] EXCELLUS I [id number] Self [id number] MEDICAID [id number] Shefali [id number] ONEAL MEDICAID [id number] Shefali 7 [id number] ONEAL I [id number] Self [id number] ONEAL I [id number] Self [id number] DENTAL DENTAQUEST I [id number] Self [id number] ONEAL MEDICAID [id number] Shefali 7 [id number] [facility] Commercial [id number] Self [facility] Medigap Part B [id number] Self [id number] [facility] Medigap Part B [id number] Self [id number] Managed Care - Community Plan [facility] P [id number] S [id number] Medicaid S [id number] S [id number] Managed Care - Community Plan [facility] P [id number] S [id number] Managed Care - Community Plan [facility] P [id number] S [id number] Medicaid [place] Medig[place] Part [place] [id number] Self [id number] [place] [id number] Self [id number] [place] Med[place] [id number] Self [id number] [place] Medig[place] [id number] Self [id number] [facility] Commercial [id number] Self [id number] Medicaid S [id number] S [id number] Medicaid [place] Medigap Part B [id number] Self [id number] Managed Care - Community Plan [facility] P [id number] S [id number] [facility] Commercial [id number] Self [id number] Managed Care - [facility] Community Plan P [id number] S [id number] Medicaid [place] Medigap Part B [id number] Self [id number] [facility] Commercial [id number] Self [id number] Medicaid S [id number] S [id number] Managed Care - [facility] Community Plan P [id number] S [id number] [facility] MEDICAID [id number] Self [id number] [facility] I [id number] Self [id number] [facility] [id number] Self [id number] MH OPTUM [id number] Self [id number] [facility] I [id number] Self [id number] BLUE CHOICE OPTION O [id number] S [id number] [employer] 2 [id number] 1 [id number] SELFPAY 5 UNAVAILABLE 1 UNAVAILA BLE MEDICAID 3 [id number] BLUE CHOICE OPTIONS 7 [id number] BC HMOBLUE OPTION MC 2 [id number] 1 [id number] [facility] 2 [id number] 1 [id number] [place] [id number] 1 [id number] BC HMOBLUE OPTION MC 2 [id number] [employer] [place] O [id number] S [id number] MEDICAID W [id number] S [id number] BCBS [place] O [id number] S [id number] SELF PAY UNAVA[place] 3 [id number] Y [id number] [facility], [facility] COMMUNITY PLAN [facility] [id number] SP [id number] O UNAVAILABLE UNAVAILA BLE [id number] SP [id number] [facility] HMO [id number] SP [id number] EMEDNY [id number] SP [id number] [facility] [id number] SP [id number] [facility] [id number] SP [id number] [facility] [id number] S [id number] [facility] [id number] SP [id number] [facility] PLAN [facility] [id number] [facility]-Medicaid [id number] ANSI-Medicaid [id number] [facility] O [id number] S [id number] ANS-Medicaid [id number] ANS-Medicaid [id number] MEDICAID [id number] SP [id number] FORMERLY [facility], [facility] COMMUNITY PLAN [facility] [id number] SP [id number] Self Pay P [id number] S [id number] Self Pay P UNAVAILABLE S UNAVAILA BLE [facility] Commercial [id number] Self [id number] [facility] Commercial [id number] Self [id number] [facility] O [id number] S [id number] [facility]) O [id number] S [id number] [facility] Commercial [id number] Self [id number] [facility] Commercial [id number] Self [id number] ONEAL [id number] SP [id number] D [facility] [place] P [id number] S [id number] [facility] [place] O [id number] S [id number] [facility] DEPT.OF CORRECTIONAL [id number] SP [id number] STPP Wrap [id number] Oneal [id number] [facility] [place] W [id number] S [id number] [place] U[place] S UN AVAILABLE MEDICAID W [id number] S [id number] HMO BLUE OPTION W [id number] S [id number] Problems, Conditions, and Diagnoses Code Display Name Description Problem Type Effective Dates Data Source(s) 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 [id number] CONTACT WITH AND SUSPECTED EXPOSURE TO C OVID-19 CONTACT WITH AND SUSPECTED EXPOSURE TO COVID-19 Diagnosis 02/01/2021 11:44:00 PM EDT [facility] F329 Major depressive disorder, single episod e, unspecified Major depressive disorder, single episode, unspecified Diagnosis 02/01/2021 11:44:00 PM EDT 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 R443 Hallucinations, unspecified Hallucinations, unspecifie d Diagnosis 02/01/2021 11:44:00 PM EDT [facility] Z72.0 Tobacco use Tobacco use Diagnosis 11/06/2020 09:33:19 AM EDT [facility] F20.0 Paranoid schizophrenia Paranoid schizophrenia Diagnosi s 11/06/2020 09:33:09 AM EDT [facility] Z79.4 detention (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 of insulin optimization analyst (cu rrent) use of insulin Diagnosis 11/06/2020 09:33:04 AM EDT [facility] E11.9 Type 2 diabetes mellitus without complic ations Type 2 diabetes mellitus without complications Diagnosis 11/06/2020 09:33:04 AM EDT [facility] hypotension hypotension Diagnosis 10/30/2020 09:24:00 AM EDT [facility] Hypotension Hypotension Diagnosis 10/30/2020 09:24:00 AM EDT [facility] E86.0 Dehydration Dehydration Diagnosis 10/30/2020 09:24:00 AM EDT [facility] I95.9 Hypotension, unspecified Hypotension, unspecified Diag nosis 10/30/2020 09:24:00 AM EDT [facility] psych transfer psych transfer Diagnosis 10/28/2020 04:13: 00 PM EDT [facility] Psychiatric Evaluation Psychiatric Evaluation Diagnosi s 10/28/2020 04:13:00 PM EDT [facility] F51.02 Adjustment insomnia Adjustment insomnia Diagnosis 0 10/28/2020 04:13:00 PM EDT [facility] 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, un specified Extrapyramidal and movement disorder, unspecified Diagnosis 10/28/2020 04:13:00 PM EDT [facility] F39 Unspecified mood [affective] disorder Unspecifie d mood (affective) disorder Diagnosis 10/28/2020 04:13:00 PM EDT [facility] F20.9 Schizophrenia, unspecified Schizophrenia, unspecified Diagnosis 09/02/2020 06:18:57 AM [facility] Psychiatric Evaluation Psychiatric Evaluation Diagnosi s 09/01/2020 11:07:00 PM [facility] ems other ems other Diagnosis 09/01/2020 11:07:00 PM ES [facility] F10.20 Alcohol dependence, uncomplicated Alcohol Use Di sorder, Moderate Condition 04/15/2021 12:00:00 AM EDT [facility] ([facility]) F20.0 Paranoid schizophrenia Paranoid schizophrenia Conditio n 04/15/2021 12:00:00 AM EDT [facility] [id number] Adult health examination Adult Health Examination Prob emily 03/18/2021 12:00:00 AM EDT [facility] ([facility]) [id number] Mixed anxiety and depressive disorder Mi xed Anxiety and Depressive Disorder Problem 03/18/2021 12:00:00 AM EDT [facility] ([facility]) [id number] Homeless Homeless Problem 01/16/2021 12:00:00 AM ED T [facility] ([facility]) F20.9 Schizophrenia, unspecified Schizophrenia Condition 10/08/2020 12:00:00 AM EDT [facility] ([facility]) [id number] Clinical finding Clinical Finding Problem 12:00:00 AM EDT - 06/13/2020 12:00:00 AM EST [facility] ([facility]) [id number] Clinical finding Clinical Finding Problem 12:00:00 AM EDT - 06/13/2020 12:00:00 AM EST [facility] ([facility]) [id number] Clinical finding Clinical Finding Problem 12:00:00 AM EDT - 06/13/2020 12:00:00 AM EST [facility] ([facility]) [id number] Clinical finding Clinical Finding Problem 12:00:00 AM EDT - 06/13/2020 12:00:00 AM EST [facility] ([facility]) [id number] Clinical finding Clinical Finding Problem 018 12:00:00 AM EST - 06/13/2020 12:00:00 AM EST [facility] ([facility]) [id number] Clinical finding Clinical Finding Problem 018 12:00:00 AM EST - 06/13/2020 12:00:00 AM EST [facility] ([facility]) [id number] Clinical finding Clinical Finding Problem 018 12:00:00 AM EST - 06/13/2020 12:00:00 AM EST [facility] ([facility]) [id number] Clinical finding Clinical Finding Problem 018 12:00:00 AM EST - 06/13/2020 12:00:00 AM EST [facility] ([facility]) [id number] Procedure Procedure Problem 12/02/2017 12:0 0:00 AM EDT - 06/13/2020 12:00:00 AM EST [facility] ([facility]) [id number] Procedure Procedure Problem 12/02/2017 12:0 0:00 AM EDT - 06/13/2020 12:00:00 AM EST [facility] ([facility]) [id number] Procedure Procedure Problem 12/02/2017 12:0 0:00 AM EDT - 06/13/2020 12:00:00 AM EST [facility] ([facility]) [id number] Procedure Procedure Problem 12/02/2017 12:0 0:00 AM EDT - 06/13/2020 12:00:00 AM EST [facility] ([facility]) [id number] SNOMED CT Concept SNOMED CT Concept Problem 12/10 12:00:00 AM EDT - 06/13/2020 12:00:00 AM EST [facility] ([facility]) [id number] SNOMED CT Concept SNOMED CT Concept Problem 12/10 12:00:00 AM EDT - 06/13/2020 12:00:00 AM EST [facility] ([facility]) [id number] SNOMED CT Concept SNOMED CT Concept Problem 12/10 12:00:00 AM EDT - 06/13/2020 12:00:00 AM EST [facility] ([facility]) [id number] SNOMED CT Concept SNOMED CT Concept Problem 12/10 12:00:00 AM EDT - 06/13/2020 12:00:00 AM EST [facility] ([facility]) Surgeries/Procedures Procedure Description Date Indications Data Source(s) Extended Individual Psychotherapy - 45 min 04/15/2021 12:00:00 AM EDT - 04/15/2021 12:00:00 AM EDT [facility] ([facility]) Extended Individual Psychotherapy - 45 min 12:00:00 AM EDT [facility] ([facility]) Brief Individual Psychotherapy - 30 min 03/21/2021 12:00:00 AM EDT - 03/21/2021 12:00:00 AM EDT [facility] ([facility]) Brief Individual Psychotherapy - 30 min 03/19/2021 12: 00:00 AM EDT [facility] POCT GLUCOSE, DOCKED <td>POCT GLUCOSE, DOCKED</td ><td>Routine</td><td>03/06/2021 8:54 AM EDT</td><td></td><td> </td> 03/06/2021 08:54:00 AM [facility] GLUCOSE QUANTITATIVE BLOOD XCPT REAGENT STRIP <td>POCT GLUCOSE, DOCKED</td><td>Routine</td><td>03/05/2021 9:20 PM EDT</td><td></td><td> </td> 03/05/2021 09:20:00 PM [facility] GLUCOSE QUANTITATIVE BLOOD XCPT REAGENT STRIP <td>POCT GLUCOSE, DOCKED</td><td>Routine</td><td>03/05/2021 5:21 PM EDT</td><td></td><td> </td> 03/05/2021 05:21:00 PM [facility] GLUCOSE QUANTITATIVE BLOOD XCPT REAGENT STRIP <td>POCT GLUCOSE, DOCKED</td><td>Routine</td><td>03/05/2021 12:47 PM EDT</td><td></td><td> </td> 03/05/2021 12:47:00 PM [facility] GLUCOSE QUANTITATIVE BLOOD XCPT REAGENT STRIP <td>POCT GLUCOSE, DOCKED</td><td>Routine</td><td>03/05/2021 8:44 AM EDT</td><td></td><td> </td> 03/05/2021 08:44:00 AM [facility] GLUCOSE QUANTITATIVE BLOOD XCPT REAGENT STRIP <td>POCT GLUCOSE, DOCKED</td><td>Routine</td><td>03/04/2021 8:49 PM EDT</td><td></td><td> </td> 03/04/2021 08:49:00 PM [facility] GLUCOSE QUANTITATIVE BLOOD XCPT REAGENT STRIP <td>POCT GLUCOSE, DOCKED</td><td>Routine</td><td>03/04/2021 5:12 PM EDT</td><td></td><td> </td> 03/04/2021 05:12:00 PM [facility] GLUCOSE QUANTITATIVE BLOOD XCPT REAGENT STRIP <td>POCT GLUCOSE, DOCKED</td><td>Routine</td><td>03/04/2021 12:47 PM EDT</td><td></td><td> </td> 03/04/2021 12:47:00 PM [facility] GLUCOSE QUANTITATIVE BLOOD XCPT REAGENT STRIP <td>POCT GLUCOSE, DOCKED</td><td>Routine</td><td>03/04/2021 8:38 AM EDT</td><td></td><td> </td> 03/04/2021 08:38:00 AM [facility] GLUCOSE QUANTITATIVE BLOOD XCPT REAGENT STRIP <td>POCT GLUCOSE, DOCKED</td><td>Routine</td><td>03/03/2021 8:59 PM EDT</td><td></td><td> </td> 03/03/2021 08:59:00 PM [facility] GLUCOSE QUANTITATIVE BLOOD XCPT REAGENT STRIP <td>POCT GLUCOSE, DOCKED</td><td>Routine</td><td>03/03/2021 5:37 PM EDT</td><td></td><td> </td> 03/03/2021 05:37:00 PM [facility] GLUCOSE QUANTITATIVE BLOOD XCPT REAGENT STRIP <td>POCT GLUCOSE, DOCKED</td><td>Routine</td><td>03/03/2021 12:42 PM EDT</td><td></td><td> </td> 03/03/2021 12:42:00 PM [facility] GLUCOSE QUANTITATIVE BLOOD XCPT REAGENT STRIP <td>POCT GLUCOSE, DOCKED</td><td>Routine</td><td>03/03/2021 8:50 AM EDT</td><td></td><td> </td> 03/03/2021 08:50:00 AM [facility] GLUCOSE QUANTITATIVE BLOOD XCPT REAGENT STRIP <td>POCT GLUCOSE, DOCKED</td><td>Routine</td><td>03/02/2021 8:10 PM EDT</td><td></td><td> </td> 03/02/2021 08:10:00 PM [facility] Brief Individual Psychotherapy - 30 min 02/26/2021 12:00:00 AM EDT - 02/26/2021 12:00:00 AM EDT [facility] ([facility]) Brief Individual Psychotherapy - 30 min 02/26/2021 12: 00:00 AM EDT [facility]) MRI, lumbar spine, w/o contrast 02/05/2021 12:00:00 AM EDT [facility] ([facility]) MRI, hip, w/o contrast 02/05/2021 12:00:00 AM EDT [facility] ([facility]) MRI, hip, w/o contrast 02/05/2021 12:00:00 AM EDT [facility] ([facility]) OFFICE OUTPATIENT VISIT 15 MINUTES 01/31 12:00:00 AM EDT - 01/31/2021 12:00:00 AM EDT [facility] ([facility]) OFFICE OUTPATIENT VISIT 15 MINUTES 01/31/2021 12:00:00 AM EDT [facility] ([facility]) Extended Individual Psychotherapy - 45 min 01/31/2021 12:00:00 AM EDT - 01/31/2021 12:00:00 AM EDT [facility] ([facility]) Extended Individual Psychotherapy - 45 min 12:00:00 AM EDT [facility] ([facility]) OFFICE OUTPATIENT VISIT 15 MINUTES 12/13 12:00:00 AM EDT - 12/13/2020 12:00:00 AM EDT [facility] ([facility]) OFFICE OUTPATIENT VISIT 15 MINUTES 12/13/2020 12:00:00 AM EDT [facility] ([facility]) MHC Telemed E/M Lvl 3--Est pt 11/22/2020 12:00:00 AM EDT - 11/22/2020 12:00:00 AM EDT [facility] ([facility]) MHC Telemed E/M Lvl 3--Est pt 11/22/2020 12:00:00 AM E DT [facility] ([facility]) OFFICE OUTPATIENT VISIT 15 MINUTES 10/18 12:00:00 AM EDT - 10/18/2020 12:00:00 AM EDT [facility] ([facility]) Psychotherapy ADD ON - 30 Minutes 10/18/2020 12:00:00 AM EDT [facility] ([facility]) OFFICE OUTPATIENT VISIT 15 MINUTES 10/18/2020 12:00:00 AM EDT [facility] ([facility]) Brief Individual Psychotherapy - 30 min 10/08/2020 12:00:00 AM EDT - 10/08/2020 12:00:00 AM EDT [facility] ([facility]) Brief Individual Psychotherapy - 30 min 10/08/2020 12: 00:00 AM EDT [facility] ([facility]) OFFICE OUTPATIENT VISIT 15 MINUTES 10/01 12:00:00 AM EDT - 10/01/2020 12:00:00 AM EDT [facility] ([facility]) OFFICE OUTPATIENT VISIT 15 MINUTES 10/01/2020 12:00:00 AM EDT [facility] ([facility]) TEMPMHCTelemed--Crisis Brief 08/27/2020 12:00:00 AM EST - 08/27/2020 12:00:00 AM EST [facility] ([facility]) TEMPMHCTelemed--Crisis Brief 08/27/2020 12:00:00 AM ES T [facility] ([facility]) Brief Individual Psychotherapy - 30 min 08/03/2020 12:00:00 AM EST - 08/03/2020 12:00:00 AM EST [facility] ([facility]) Brief Individual Psychotherapy - 30 min 08/02/2020 12: 00:00 AM EST [facility] ([facility]) MHC Telemed E/M Lvl 3--Est pt 07/10/2020 12:00:00 AM EST - 07/10/2020 12:00:00 AM EST [facility] ([facility]) MHC Telemed E/M Lvl 3--Est pt 07/10/2020 12:00:[address] [facility] ([facility]) Brief Individual Psychotherapy - 30 min 06/14/2020 12:00:00 AM EST - 06/14/2020 12:00:00 AM EST [facility] ([facility]) Brief Individual Psychotherapy - 30 min 06/14/2020 12: 00:00 AM EST [facility] ([facility]) OFFICE OUTPATIENT VISIT 15 MINUTES 06/12 12:00:00 AM EST - 06/12/2020 12:00:00 AM EST [facility] ([facility]) OFFICE OUTPATIENT VISIT 15 MINUTES 06/12/2020 12:00:00 AM EST [facility] ([facility]) Brief Individual Psychotherapy - 30 min 04/24/2020 12:00:00 AM EDT - 04/24/2020 12:00:00 AM EDT [facility] ([facility]) Brief Individual Psychotherapy - 30 min 04/24/2020 12: 00:00 AM EDT [facility] ([facility]) OFFICE OUTPATIENT VISIT 15 MINUTES 04/09 12:00:00 AM EDT - 04/09/2020 12:00:00 AM EDT [facility] ([facility]) OFFICE OUTPATIENT VISIT 15 MINUTES 04/09/2020 12:00:00 AM EDT [facility] ([facility]) Brief Individual Psychotherapy - 30 min 04/02/2020 12:00:00 AM EDT - 04/02/2020 12:00:00 AM EDT [facility] ([facility]) Brief Individual Psychotherapy - 30 min 04/02/2020 12: 00:00 AM EDT [facility] ([facility]) Results ID Date Data Source [id number] 04/22/2021 12:00:00 AM EDT [facility] ([facility]) Name Value Range Interpretation Code Description Data Fabiola rce(s) Supporting Document(s) SARS-CoV-2 (COVID-19) RNA [Presence] in Respiratory specimen by WILEY with probe detection negative negative Sars-cov-2 [facility] ([facility]) ID Date Data Source [id number] 04/22/2021 12:00:00 AM EDT [facility] ([facility]) Name Value Range Interpretation Code Description Data Fabiola rce(s) Supporting Document(s) ID Date Data Source [id number] 04/22/2021 12:00:00 AM EDT [facility] Name Value Range Interpretation Code Description Data Fabiola rce(s) Supporting Document(s) SARS-CoV-2 NEGATIVE [facility] This lab was ordered by [facility] [employer] [facility]-COVID19 and reported by [employer]. ID Date Data Source [id number] 03/15/2021 11:26:00 AM EDT [place] ([facility]) Name Value Range Interpretation Code Description Data Fabiola rce(s) Supporting Document(s) Blood Glucose: mg/dl Blood Glucose: mg/dl [facility] ([facility]) ID Date Data Source [id number] 03/06/2021 10:25:59 PM EDT [facility] Name Value Range Interpretation Code Description Data Fabiola rce(s) Supporting Document(s) Discharge Summary [facility] AZVERf2cDbKVCuVd82/QNCabPNJub0RoYYltTWj4BCwwZRXbP0EoOLZ7iX7dAJO1WAzXAfOjLrQwFRO2 lbm [file] Q+rosa elena/gs3gKT+C21Vd6PM7JFsSbb4pBK5X28mC8LvUdn/h9/AG+hD/Jr3ZWIW5lOw9uFVD5b9UGmU6GO9 [file] AgICAgICAgICAgICAgICAgICAgICAgICAgICAgICAg ICAgICAgICAgICAgICAgICAgICAgICAgICAgICAgICANCiAgICAgICAgICAgICAgICAgICAgICAgICAg ICAgICAgICAgICAgICAgICAgICAgICAgICAgICAgICAgICAgICAgICAgICAgICAgICAgICAgICAgICAg ICAgICAgICAgICAgICANCiAgICAgICAgICAgICAgIC AgICAgICAgICAgICAgICAgICAgICAgICAgICAgICAgICAgICAgICAgICAgICAgICAgICAgICAgICAgIC AgICAgICAgICAgICAgICAgICAgICAgICANCiAgICAgICAgICAgICAgICAgICAgICAgICAgICAgICAgIC AgICAgICAgICAgICAgICAgICAgICAgICAgICAgICAg ICAgICAgICAgICAgICAgICAgICAgICAgICAgICAgICAgICANCiAgICAgICAgICAgICAgICAgICAgICAg ICAgICAgICAgICAgICAgICAgICAgICAgICAgICAgICAgICAgICAgICAgICAgICAgICAgICAgICAgICAg ICAgICAgICAgICAgICAgICANCiAgICAgICAgICAgIC AgICAgICAgICAgICAgICAgICAgICAgICAgICAgICAgICAgICAgICAgICAgICAgICAgICAgICAgICAgIC AgICAgICAgICAgICAgICAgICAgICAgICAgICANCiAgICAgICAgICAgICAgICAgICAgICAgICAgICAgIC AgICAgICAgICAgICAgICAgICAgICAgICAgICAgICAg ICAgICAgICAgICAgICAgICAgICAgICAgICAgICAgICAgICAgICANCiAgICAgICAgICAgICAgICAgICAg ICAgICAgICAgICAgICAgICAgICAgICAgICAgICAgICAgICAgICAgICAgICAgICAgICAgICAgICAgICAg ICAgICAgICAgICAgICAgICAgICANCiAgICAgICAgIC AgICAgICAgICAgICAgICAgICAgICAgICAgICAgICAgICAgICAgICAgICAgICAgICAgICAgICAgICAgIC AgICAgICAgICAgICAgICAgICAgICAgICAgICAgICANCiAgICAgICAgICAgICAgICAgICAgICAgICAgIC AgICAgICAgICAgICAgICAgICAgICAgICAgICAgICAg ICAgICAgICAgICAgICAgICAgICAgICAgICAgICAgICAgICAgICAgICANCjw/uWWgS4ioqBRpvuO2T2sp St0EWb5LQA9vk3LjFBQzJLsmbgSsXdbGMfGfEJByHrlRFdy4ZDsaTN0CjMEuW7ZvQ0SrUJfeSC3DAZOr XQVplOLwFSLuKGAeDkF2WGXfSRgiEW5KzVUnLGdpPH WgDVUtTrDoXPXyGQIxWZGhOWXhUWYDUJXjCATcBrUaFSWdQNCiIBdlVZWDFUE5NKIgJiCjMDjoZF8Xb5 AgnYL1CEq+Sa5ORX0hb2ZuDAg6QoHiFS1ozf4RIUpPYjXsV4KlsuI4OQY7BWRmAq8OUYDhGVAhxHU8WL KnDQNFPyHrK3KnvX04EIHBZa8+DQplbmRvYmoNCjU0 STOjj0IgEAm6QK9ACKDsXZy3yFUeOQutR5eeofrfKLR8kN3fwxbgDlahBMwwHLAAEEwjb67zFEvalJQr ipnmKPXNNRS1OGmdTS2zQPYuZHI4DvHhQHOSPS9MOYVxJASmlUBuYCOsJIQWGM4VVTnqLKF0EMGexsXs pITmMFvaPV6YQVQvvyBlUVMoAAPPQMf+Qe4RUF0as3 StHZu1RDSbDO6soz8FZTqODnUeB2I4fIUgM9E5MFyuUk8ATGVcJTEwZKMwVTXYOTfdUN2TXD7puzO1JH 5XxQVxDPRoRTHohRFlVMl5P92ptOZxJGwsUH9VXYB+Anais+Qz2CSQQeXJVcHCDmZwQjNIYDRaDpE5NbF1 WXq7ToR0QwAZ51sTqqwsMeVRhjYL7IQN2dBVYgCNXF LX7GvGFxaM1uejX0RyUeSLJCArBsP51pgZBxLAUhKBRnUZUvNq4XMLZnM6ZqiuQzoRmroeWeZOMePMHR OH0UAWvafoHbxDEcmAevZZ84sYqmNV8ZKm7MPsLkVH0gat6DmXMfEn7DMJI0Ab8LDZNkSVCiGJNzZEB3 ILSvTmHkKTrjICLfKLBpQOB3JPZqNPGpOP6MAdKmXB HnUBY7SmwyZGBdVDVzrp3OQXZeUOE8OrT4InGkYVQsWKLkWYinPYSmWEVoIQI0KZRoRRTcYD6LGkPtUK NwBMS5RTYjVQHjTANzlw0EVBRpEZSoTMSjTNFaPIRkRBCmFMaaZWAbSVH5OFD9EJArASOdTS8YEfKoLO HaEPhkGhauIKNpECKfhi5AMJEzYMXlTXL6CeIoTQLl RBExESnzONGxARIaVwL1BVKtSBCfNE9OCmBzOAVgRVO8GeJmSZBhIPIgvy8CUVEbOYPtZKj8PgXeEGSq DBFjIKutKIPsHLQ4PFzuDBHfXEQsOC1UTlSzSBQeQFjjRCgmNBDrPAVcyb8PLUDmRCDwUqEmLVXpMZTs XAZyHWvuFLXhADDfRvYbYMBnDNZaHP2NSdFkUNAsJk EoDfnjDGYoZTHxka7QJYMeGVFqEJF8PpJoTJSyXKZrUKcdKESdOGW2MxHjAAArPDUpOO9ADdFnNSLrVj x8NbfnRFOgMOBvue4EIZFlSBJtHHtnRxPvSKOmKJXeZPfgGPWoSXQ5YIB0RUPfMDHnNG0NDyLjSCKrBp ywSDhqDDErVGIrpp8HZIKfWOHlSRM4ZvMrWBXoPYPw OAjcJGBdUONfUuG0VVIyGLTxOH7KZePrOJEcJkN3WIIwPJDoMNDcjc3TOWBtJVIpKBQbTFArHKMdSCCf ODujQOFqYRNyZtU5BFVkVAMfFD3UHmMnAKPmYwE3UYGmQMJmMOIebx7RWPJeXOHdGfw6QWGuGVNpXDCq IPrzWXEpRHGaUXItICCfQBYbUX7FYsWnLMIxXdWfHS YlLCXyLSVcky6XNWLxWPEwFADpGWMhBPPbYMNoBRfeMWMuHOJ2XOV9HVKmHBMbXB9BShJeRVXtMvQ0GD dgCXMxLUBtdv1OKMUyLVU4ZTg1RIYgTYNyWBSvAWucHTYwAQF8KdZaXGEaRFEcTH4DAwNoGLBrXKY0LG QyTNYxFVHqbd8ZOQDcZFH1Tsq4YIHxSVYvAGRfGLcv ZINaBNB2ZMk5ZIErKEJsJT8QHqAfAQKwZLO9PHOlMFUvUHZytq5KXQRhEWL9IcA9JGXtIEHwGDBwOAsi CUIgJQIkTvjtODLyXSFkIN4VJhXkSQKfEZU4GyCgYCHuLRSdgf1RMBJeZNM0LzE8ABAvDCGvQQSzYUde RCGwTVSqPNVrBXMpOMMkJJ6EKvYjSRLbPUMxVJUqGQ LhIMXdpe5AUSWrAIU7WaN1ImJiRUEmNMPcTFryATJhHOM3GuAvHGYnZLPvNK5SFmVrSCCnTFG5ZeQaLL YpENHjzo9DDCMeMRJ2MIXaWkBsIMSuZCDaKGbvGAWmGAN1CZBzCAWaMJMmGL9YRpBpOYAhBWO8TToiDO MwNTCqiq5WJVSqSSW8MfV3GCQuFIQlXDXcGLsvYGBw WTR7UPU0KMPkWQNhQY5UVvHhKDpiYVYELcm1LKgxI5z5CVG1Et6FG0Txa4EwABMxLULRMTrbBW7xhzKo XHIgJb6OO5kZQmmkICWqFhD6BoN8TANjFivrQrSiZtO7S8RkKwOaQVHjGQ3kUYAmRDWmNMG3AVH0OYNx R5CyUPC7Qpu8MUHgNxL6VUF7BnJjJG3FTu7FQxP0PAA6zUPgWd6KWVokGbUBQxWtIV6EPKc= ID Date Data Source [id number] [facility] Interpretation Code Description Data Fabiola rce(s) Supporting Document(s) Glucose [Mass/volume] in Capillary blood by Glucometer 152 mg/dL 70- 140 [facility] ID Date Data Source [id number] 03/05/2021 09:22:49 PM [facility] Range Interpretation Code Description Data Fabiola rce(s) Supporting Document(s) Glucose [Mass/volume] in Capillary blood by Glucometer 208 mg/dL 70- 140 [facility] ID Date Data Source [id number] 03/05/2021 05:24:04 PM [facility] Value Range Interpretation Code Description Data Fabiola rce(s) Supporting Document(s) Glucose [Mass/volume] in Capillary blood by Glucometer 142 mg/dL 70- 140 [facility] ID Date Data Source [id number] 03/05/2021 01:23:55 PM [facility] Value Range Interpretation Code Description Data Fabiola rce(s) Supporting Document(s) Glucose [Mass/volume] in Capillary blood by Glucometer 177 mg/dL 70- 140 [facility] ID Date Data Source [id number] 03/05/2021 [facility] Interpretation Code Description Data Fabiola rce(s) Supporting Document(s) Glucose [Mass/volume] in Capillary blood by Glucometer 135 mg/dL 70- 140 [facility] ID Date Data Source [id number] 03/04/2021 08:53:42 PM [facility] Value Range Interpretation Code Description Data Fabiola rce(s) Supporting Document(s) Glucose [Mass/volume] in Capillary blood by Glucometer 150 mg/dL 70- 140 [facility] ID Date Data Source [id number] 03/04/2021 05:16:08 PM [facility] Value Range Interpretation Code Description Data Fabiola rce(s) Supporting Document(s) Glucose [Mass/volume] in Capillary blood by Glucometer 171 mg/dL 70- 140 [facility] ID Date Data Source [id number] 03/04/2021 12:55:05 PM [facility] Value Range Interpretation Code Description Data Fabiola rce(s) Supporting Document(s) Glucose [Mass/volume] in Capillary blood by Glucometer 157 mg/dL 70- 140 [facility] ID Date Data Source [id number] 03/04/2021 11:20:27 AM [facility] Value Range Interpretation Code Description Data Fabiola rce(s) Supporting Document(s) History and Physical [facility] LFNWOn7cHfVVRfXy27/QCEvrKKXis7VwBLkkHRd2PSbdVLSvN9AcMLN3hD6lPSO9JObKIcRgWvEyLMJ5 [facility] [file] WPYO0hfFFIYj0Bmiu5Bvtb803x/rerecording mixer/V9eRSLpBEtmJpK0Mjw9GMJhyZp+Ow73a1uk22APBmTJT27OrQ [file] ICAgICAgICAgICAgICAgICAgICAgICAgICAgICAgICAgICAgICAgICAgICAgICAgICAgICAgICAgICAg JYKsLELyEY6BBOKgUCRqXJXlOEVbRALfJCMvFLJoYX AgICAgICAgICAgICAgICAgICAgICAgICAgICAgICAgICAgICAgICAgICAgICAgICAgICAgICAgICAgIC YiDKXoKNUbVJClNHArCKQqVJ6DXHFtOYGjHSQkWFSaTJHgKADrTEAyCDKtOCSmKIAlTABjMIDqJSWqEC AgICAgICAgICAgICAgICAgICAgICAgICAgICAgICAg UGNdZWYsAOJbDJNeJGTaTAWwDKFgSQLjRVDvTX0HYZViXMAkAECbLJAiGYKkNCAgHECzNWUoEEJhIQPl ICAgICAgICAgICAgICAgICAgICAgICAgICAgICAgICAgICAgICAgICAgICAgICAgICAgICAgICAgICAg RWIkGPRdZBFvRC9JIQPlUXPdTXVoWWLbYKOnAKEbUM AgICAgICAgICAgICAgICAgICAgICAgICAgICAgICAgICAgICAgICAgICAgICAgICAgICAgICAgICAgIC GsZIVtPUKtFYAsOJHpSJMkRMTzMJ9YMNXyJTRdCUTuAUDbUDZmIXKuRDKxGTBqIRWrKFSkHBVhHTMjBY AgICAgICAgICAgICAgICAgICAgICAgICAgICAgICAg YNJbPEYyBWQsLSFuQLJxMMInBUPtINFxHOKnPVOkUN7FQQTlEGEwFOVdKVJyCCSkXZZjYGAlWHLxJNEe ICAgICAgICAgICAgICAgICAgICAgICAgICAgICAgICAgICAgICAgICAgICAgICAgICAgICAgICAgICAg JVRvLYNjFKTfRZDeYK9PUCQyMRKtJFZtQHThANWjPC AgICAgICAgICAgICAgICAgICAgICAgICAgICAgICAgICAgICAgICAgICAgICAgICAgICAgICAgICAgIC AmZDRdETVyISMfXAUmDIPbBCExYTOqRY2RAQXxPPUoGGCxWPLjRLPqNKZqELOpUYJuUNAmRSCsKLUfGR AgICAgICAgICAgICAgICAgICAgICAgICAgICAgICAg HLUrIOHhPGJvBDImEJUoCEVsIPSsUUQmWEGtYFKlACMcIF4DKQHsENCpMVRwYIAeRHIeDQBiIWDaXGSq ICAgICAgICAgICAgICAgICAgICAgICAgICAgICAgICAgICAgICAgICAgICAgICAgICAgICAgICAgICAg NXTnWODkJLBlEHLoNEJzEW6JMO28xNAuu4X7RCWwMN 0ndyc/Ne2OBPjctxMbgWUrOA0BMtIjMH8btw0NYjYgEP1adn3UUUuXYvMeT9C0nYEwOKKpEKPBAxAuF8 8rRMeqRh68XYvnNBRkYqDvIMc4Ry1TZgUaD1shEXQyDnK8NDFuYjZ6IGNoOtO8ANDsZrVpSPCgSAXdUJ QwRWXBBB9VMaIwS4ZogW74PPVYTh8+DQplbmRvYmoN AnO5TDWwp8QeXJp3CR5UMGSyBqxfu5BaBdgtJHFQURcuKT7SNLI2HDO6FWMeOg8MNELlG809urXyZN4G Nx0YLaZjMD3ijq3DXnurXSCgDqfLQwr4FMexMA8LdDRnMKxSWuHsLhhhHZUeqSTJNIErCUJbuNssFZAf CDSpLG58WrDgJwOmUXS5WWgjTU8lAAnsHI1PKJL6GT khOFMhXWJbY8dFKvWsPVKqDtHhyNmzBP1VSwYdH4BxtfVuvUAbXoSgLRJZJv3+BUmwpxNwFtaTHzP4DB Krq2HeGVt9YW2BTEWwDFtwCU8JSSGmnG8kWYheEM7CVxUnPNFfSGVPDeAcA04hwSBiUCq8Z0JvYiYaTV VkRmlsZXMgPDwvTmFtZXMgWyBdDQogID4+ID4+DQog PZ8YMYqkcuToXODqFy6TBHNmERDcPL4tPGYgCMUwE4A4uKhkMODDItApO9ahkugmYB6bMVEsW144lTqd gcPjEQV6HCFtGg4YKZCmNEO3LUOwnZXaHfXgWTYGLRhcFY0PnJToMZN2uO9gRLtyADPhBJCtG1dYHhDk vQakKX87aQdxwnOelOTlTKg+Pm2NRN8ht4CqYQn1zj RmYUxjVUD5VKipKJKmFIRsXSRzQLE3JEC3CSAYIdHnZDAiCYQaLKbkBHYkDZDbtk3QBEXuYZDeWlK6It ObGGTgXGAuOAcwSNSkPEFhQVAyLXIgMGWhCF9MKfHyVBRgIJWdOSiuNWFiPZUwhw3JQCIkKJOvIvH9TS XfBZQkFUMbWQwvNUVfGUXaEsXuYUCsXPWpWB3XJfAb KGTbIHPuXSEzNXOtBTMsuv4SUZSsNIUyZcA8SBTwGTFuVTRaCGjnZMYzDGB0KGFtMQAyAXCrFQ7UKhLy WEFwXZhfHyycYLPhZIPujt9UZRCdHCQbFSr1BNVyJDEgERNoBRnuGNYuREPfAZSgDGGmMFViPX0HMrAp SSIaDTT8ObHkEJPdYUWasw3EAHRdJIYeSrZ0SVBvPF ZgVEQhPWfoQDMcMRJ2YEX0NTAbYPKdXQ2YGvJhICWxWXBuXxRnAZGfMYEpux8XVGBiTQRaDTPhAVGlFP JcHIJrQRutSLMnKTR6EoG9NBYeYJMbGL8CSbEdVPNqHLW1ThSwVKBaVOXbeo6BEKXnRWFnOSa8YXNqYR RyRSMsJNmjEXYoEUR9DuC2UPKwWDOxKB1IJlLdBDDh YZU7UWNhCYFaPSGdhx7OVLHvLABxVkV1MOSkNMWnRYSlISwoUTAiBOC6JUivOMKtFXCfLF8BKbXcADUd Lnq3KDJcFQHoOUAsko8XKUOmPJPoXMIbLRXaNJJbTZXgJIjeYYGkPII6XoX3WSQwDZAbZU8MHvGkMESq WuneFFYcMEDvKZUqtf4ZMSMsWSUbPHQkSXUaSNLoGJ VqKHkgUVMvVOAoKIK9AVQiBAEwPH3JUwZzIYYjIaD4ADRyZXDqNVAeus6GPKVdYXCiVVC3LKDiPBTiJA JiDMnhFEFbNHVaVNGmKTUfYGBkEK8JHxGgKFQnDgHnKjHhFXNiUNMehp2FZAIsHEQyNvR3AmKePNRcZG MbUGzkUHPeJORuHCG8WQTxRTTpNW5IPrQfBBJyMzMj UMxtXOTtOMXoyz9HWXNxEWVmDXL8RZVsORVlSHHrABl5pnIndYNrUIf7OF9FE8NsdoYnYjjVUi5Im019 GPF3SJYtQb5DO7wqPb0nCJDfSOZOCb4TDBx4BlKmQMZgFtEtTrVsJJG5WKB3ZpP5MGbiOfPhDFBhPHA+ HSb4OVB8RXJcMOIyUaSmJXAyVxgnNARoQ7P9JxW2Nf R8PY6dSACRGw3+CLlitTPcySdgQQQOBlJ5Jkb4BLawAOBFTn6R ID Date Data Source [id number] 03/04/2021 11:20:17 AM EDT [facility] Name Value Range Interpretation Code Description Data Fabiola rce(s) Supporting Document(s) History and Physical [facility] FEDJRp1jAuXZCcLz98/ECUqrDZXor6QhNLjvYQn4XUaaSOUiT8WxBVU6oE9fDXM6WAgJBzVfHhRxHOL0 lbm [file] AgICAgICAgICAgICAgICAgICAgICAgICAgICAgICAgICAgICAgICAgICAgICAgICAgICAgICAgICAgIC NnPDXrBVPmKOQbRCUfXLFkIQ6SRONdZOZcOBNvRSMr ICAgICAgICAgICAgICAgICAgICAgICAgICAgICAgICAgICAgICAgICAgICAgICAgICAgICAgICAgICAg SWGkPUQuQRYrRFCwLGXrERWsBZYgLVQnTIZzDJ4UXKHaFYNyMKByLBIvHSPzUVIgWRWiZGDjKUOjTZSs ICAgICAgICAgICAgICAgICAgICAgICAgICAgICAgIC VyTUHsLESiMJRsSIJmCSMhNQKaEFLqSCUwQEWqVIMcIUQtBAKlOL4XGJAlTFEsLXHdJABzJJHjTRKcML AgICAgICAgICAgICAgICAgICAgICAgICAgICAgICAgICAgICAgICAgICAgICAgICAgICAgICAgICAgIC ZeISLcAEZbCTIzBZJxTHSmEBXrCA5OWNVhOYLtRMAb ICAgICAgICAgICAgICAgICAgICAgICAgICAgICAgICAgICAgICAgICAgICAgICAgICAgICAgICAgICAg BNHoAYLeGOEoHXYwWAFxLSHvXWJkNTRxZSPlKILtZO4UBBVxEBIsKVQjFGYhXXMwOTSgUZBwZPNgQUMe ICAgICAgICAgICAgICAgICAgICAgICAgICAgICAgIC McGWDbYVZfMSXhUVPhIRFwCFIrHYRjOJZgBASqCURtNJEqNXMuYEUfYT4RHKPtQAPgSIXaEZNlIIDbLY AgICAgICAgICAgICAgICAgICAgICAgICAgICAgICAgICAgICAgICAgICAgICAgICAgICAgICAgICAgIC ZeYBHtGCQlAVHbXJOmIUTcLESuOEBqZK9XNLWeKDAl ICAgICAgICAgICAgICAgICAgICAgICAgICAgICAgICAgICAgICAgICAgICAgICAgICAgICAgICAgICAg DPLmXCTaYTQiYKHaDWPtZNPvPGHlPLSdPYScGFYzAIJeKR9RAWJuBTHpWVYwCATvVUDaLSSkOAFoQTNj ICAgICAgICAgICAgICAgICAgICAgICAgICAgICAgIC MyERTkERXxMSDmMCLaRLEwDNJxVYHkNCNxCPVbJCUkACQmCYZxBETlSCBrNF2TKUJuPKHiQFHsBRAlQD AgICAgICAgICAgICAgICAgICAgICAgICAgICAgICAgICAgICAgICAgICAgICAgICAgICAgICAgICAgIC ZgVIIrTYHkJUXlKVAwHNJiBDWkRBOwGCTjMU0XLW77 bJZih5Y2RJZeFC6ofpd/Kq0GIWswncSbtZWzMK9HGsCeLI1cmu0WEaTqCV0lcm1RWNwPPwSuT0K2mKBn TVPtSNWULeGqG03zTBimWy39WPtgFMRgUjVtHDr1En8TJzZmM4puHMIcQdM3WVTzXnZ2YUTjSnT4RKDs SbOhYSZsURAiSVNhTYXKHGS2ZCIbGoYfQnMqEMGkXV meXWPKSXCpBGRkYvWqILhoXO3Hh9GjbYY0ACa+Qi0COP9hi2ObOQj1CgZtJW3ifv9GXGvNXaGbL4Sgmf A2URX4RNHaHy6VYQLlDQOioXG2RXFxGYPZYsBgA6HwjC32KUITXv0+WDoycnHfVvrUMiF7LTAlk7WvXW g2JX8CQSMdXMp6uTFdSAEMXFV2YBQiwdgvGVXCu1R2 CFTIFJGhuTM7MdGfGsOvTJBiQOmpCLMNQOoXJtUmW5Vug7NmHaM9VCOlImBpIBluOFOrFzQ8FD40lIys FL4HWNVhVYHdET23VDA6ZPHdZg8RPk1NOzMrXC9dwi3OISbySBCeQmwMElo5FHorCG6RpIRiA3MqjLAq a2yZToKxA5EIGEV3PNTyZd5VMOYqQxGkNFFuTYclQG 5kCGGaVLXVtChpkgS9LR4JCI8gvcErPU9GJfGoXm8vQp9WUhRiJ3WcE1GsWZVoEPHPSUasVC5DAUlmHW 4mAR9Ky6IDzUYywH0uab2BQMTjNDRoKtrwdc5TXgbiI9B6cHfpFYAxIXhwXPWVOSgpYD2ZJNOaJGO1HU I7HkBxECGKQjTvM27aZZ3XQ8Acm82qOoB0UKXdQsAt SEuwIQ94nGavkaGnyHVwuRcvMD1DHc3+DQplbmRvYmoNCnhyZWYNCjAgNTANCjAwMDAwMDAwMDAgNjU1 DbOxCs2RKGQeMIXpPELmOzIfVHQbIVWvLTimKTKhXCNrYLn2JGDoUMXtPR6UJaWhXARmQFCoPbawFFLh VAIuwt5WDKVwRQMmKRD2FtNqCVSlQGKzIFnlVSBgMX XdYOn4USPpUQQuFO3HVoMxZBLwSLDkEUaoYQJxKPJzfx2NNKGwFSJoGeW5ZOJuDUOoMGYsSBnoTCBuJT Y5QNI8WLWvFMKiFP5BUlLwHXPrHHiwGHVkQLAbPIJcte3GLMUgHPZlMNCdSHIvBWRkVONcJLnwGUVlSO UqDOr1NBBcLSIhPP8ABdZzPOFrLAM7DPGsYZBwVNLy im6TIHXwADDuDvZ4DXMqDQLiOBJePCveEABhTHM1DbVpIWRiLJSvQK9YFrNvSEWlDaRsAHKbVWGoFZVt ti3AXRNwROYwFVS1JMLbQMAzGAGkGGlcFIRpWTL0VAy2EJPwYFGxZI1BHnCuDKBhKaNqRONgDHIuBFJa lk7DAEYtJXVaIoRnLqYhMIOsFYLsKNviWCWfPEX9JY W9WAYeGUEkCW7FJbMdOPKaHigdWtEuADUlGBSnwn9KEPRsOXTsQPU8XVNgFDRjXQTbQRyaZIYmTUB6KL UuZERxMHOjAU9PLbMeYHTjYek1QpiqOGZfUOJfwl0JSQKuIPHqQIyqWWTgOSLbMBQxOOgeCDUsCVUtIw eiVGPaRSFfUV2SIzHrESKpRrA5XxAkEKEeLZKlho4E OYXfTHLkMMI7JYCcNOHsTITcDUxkELPwMTSjOXZtAPWeZNYvSP2HBtIhWTPrYvMiYWpyPLNhHWGksf6H LGSmLAPsXePqZSGkBXQhFHPxYZpfAJXfOLZeTQGlZQYzQRTfVQ5BXyKiLCKdZeT2VwXmPNAhWCIrya1Y VKOgVREgEgh7GUPoXRTmHIHbLKeoXMWuUOA0BmOgUT YcXROfMC4LWgVuWUEtGiazLgXzSOMfKGLzon1NLJObFAUnAKT2HJKnKKPzKALjSGrlKTGhUQO3ERptHI YsGYYkDV5OSpPqKBZvZns5GTXyCHDaKWTyhk4RKKCmGZEmALg3CgXmNPQwWKSxNYkqUMXhVIHiZKq7ZU OnTPXyUR8APyZmDNXsWRElAYGlMHCfDDObck1EATAb XEX5UQF2NrBjIRDtLLGwPReaWJCbWCSjPawbVJPuTDKhNB5EGkXxUJYqMBA4WfJdHIYuPLBtkj9JZHOe CQR8QiEnWXHxLZCbEDSgPXylARUwZCLzVLUnQJCwJSDwCK1NChSeSOCrEJD0DPJnQIQvDWMymi6TPRDp CMI6TxnvVFIuPQEtAPQhCCt8jjTbgNDuJOw8YJ8TZ5 AqseEjGYSFUc2Ti549KTK2AOSqUe9IB7utUy4lDZCaXDCKRw5GIVi3WUHhLNRwW4J1MQIiZUZ2MRKwSW ofT2TeJDKtVqV1SWy+NJd6RSFjCnMgQiFbSyNnTOQkUDMyJfD9VlE1NeHhMsKgJD8hAEZUNp1+DQpzdG OdkYqsDORUYcLwIOU5MOrnCZIKYx3T ID Date Data Source [id number] 03/04/2021 08:49:23 AM EDT [facility] Name Value Range Interpretation Code Description Data Fabiola rce(s) Supporting Document(s) Glucose [Mass/volume] in Capillary blood by Glucometer 102 mg/dL 70- 140 [facility] ID Date Data Source [id number] 03/03/2021 09:02:07 PM EDT [facility] Value Range Interpretation Code Description Data Fabiola rce(s) Supporting Document(s) Glucose [Mass/volume] in Capillary blood by Glucometer 104 mg/dL 70- 140 [facility] ID Date Data Source [id number] 03/03/2021 05:39:10 PM EDT [facility] Name Value Range Interpretation Code Description Data Fabiola rce(s) Supporting Document(s) Glucose [Mass/volume] in Capillary blood by Glucometer 101 mg/dL 70- 140 [facility] ID Date Data Source [id number] 03/03/2021 12:44:03 PM EDT [facility] Name Value Range Interpretation Code Description Data Fabiola rce(s) Supporting Document(s) Glucose [Mass/volume] in Capillary blood by Glucometer 261 mg/dL 70- 140 [facility] ID Date Data Source [id number] 03/03/2021 08:51:59 AM EDT [facility] Value Range Interpretation Code Description Data Fabiola rce(s) Supporting Document(s) Glucose [Mass/volume] in Capillary blood by Glucometer 211 mg/dL 70- 140 [facility] ID Date Data Source [id number] 03/02/2021 08:12:49 PM EDT [facility] Value Range Interpretation Code Description Data Fabiola rce(s) Supporting Document(s) Glucose [Mass/volume] in Capillary blood by Glucometer 145 mg/dL 70- 140 [facility] ID Date Data Source [id number] 03/02/2021 01:06:00 PM EDT [facility] Name Value Range Interpretation Code Description Data Fabiola rce(s) Supporting Document(s) SARS coronavirus 2 RNA [Presence] in Res piratory specimen by WILEY with probe detection NEGATIVE [facility] This lab was ordered by [facility] a nd reported by [facility]. ID Date Data Source [id number] 02/28/2021 08:51:00 [place] [address] RESPIRATORY CARE REPORT ==== ---------NAME------- NUMBER SEX AGE ADMIT DISC. XRAY# F/C [facility] [id number] 02/27/21 02/28/21 [id number] P E/R DATE OF : 1970 M/R# [id number] #: [id number] TR-08 LOCATION: EMERGENCY DEPT EKG 15583 COMP LETE:02/28/21 00:22 [place] [id number] PHYSICIAN: JOSE ARENAS Name Value Range Interpretation Code Description Data Fabiola rce(s) Supporting Document(s) ID Date Data Source [id number] 02/27/2021 10:13:00 PM EDT [facility] 1 OrderSheet [facility] Emergency Department [address] [place] [address] Phone #: [phone]- [phone] 02/27/2021 22:09 Patient: JOSE L LAM Sex: [...] Name Value Range Interpretation Code Description Data [facility](s) Supporting Document(s) ID Date Data Source [id number] 02/27/2021 10:13:00 PM EDT [facility] 1 Medication Reconciliation Report [facility] Emergency Department [address] [place] [address] Phone #: ext- [phone] 02/27/2021 22:09 [...] Dispense 60 tablet. Refills: 2.Substitution permitted.Pharmacy - [facility] - [address] [place] [address] ; [place], [place] [id number]. . -- Trae Garcia M.D. Name Value Range Interpretation Code Description Data Fabiola rce(s) Supporting Document(s) ID Date Data Source [id number] 02/27/2021 10:13:00 PM EDT [facility] 1 Medication Administration Record [facility] Emergency Department [address] [place] [address] Phone #: ext- [phone] 02/27/2021 22:09 Patient: JOSE L LAM Sex: M : 1970 Age: 50yWeight: 77.1 kgHeight/Length: 66 inBMI: 27.4ALLERGIES: No Known Drug AllergyDate/Time Medication Administered Medication Ordered Name Value Range Interpretation Code Description Data Fabiola rce(s) Supporting Document(s) ID Date Data Source [id number] 02/27/2021 10:13:00 PM EDT [facility] 1 General Instructions [facility] Emergency Department [address] [place] [address] Phone #: [phone] 02/27/2021 22:09 Patient: JOSE L LAM Sex: [...] Dispense 60 tablet. Refills: 2.Substitution permitted.Pharmacy - [facility] - [address] [facility] ; [place], [place] [id number]. .Follow-up:Return to the emergency department as needed. [...] of care. ADDITIONAL INFORMATION 2 General Instructions [facility] Emergency Department [address] [place] [address] Phone #: [phone] ext- [phone] 02/27/2021 22:09 Patient: JOSE L LAM Sex: [...] or urgent care center. 3 General Instructions [facility] Emergency Department [address] [place] [address] Phone #: ext- [phone] 02/27/2021 22:09 Patient: JOSE L LAM Sex: M : 1970 Age: 50yCall 911Call 911 if you have any of the following: Confusion Dizziness, lightheadedness, or loss of consciousness Shortness of breath Chest pain Weakness of an arm, leg, or one side of the face Sudden trouble with speech or vision [phone] [employer] [place] [address]. All rights reserved. This information is not [...] include: Heart disease Stroke 4 General Instructions [facility] Emergency Department [address] [place] [address] Phone #: ext- [phone] 02/27/2021 22:09 Patient: [...] taking your diabetes medicine 5 General Instructions [facility] Emergency Department [address] [place] [address] Phone #: ext- [phone] 02/27/2021 22:09 Patient: [...] tablets. You can buy these at most [employer]. 4 ounces (1/2 cup) of regular (not [...] (70 mg/dL or above), 6 General Instructions [facility] Emergency Department [address] [place] [address] Phone #: ext- [phone] 02/27/2021 22:09 Patient: [...] website at www.diabetes.org. Or you can call [phone].When to seek medical adviceCall your healthcare provider [...] or restless Eyesight changes 7 General Instructions [facility] Emergency Department [address] [place] [address] Phone #: ext- [phone] 02/27/2021 22:09 Patient: JOSE L LAM Sex: M : 1970 Age: 50y Drowsiness WeaknessCall 911Call 911 if any of these occur: Chest pain or shortness of breath Dizziness or fainting Weakness of an arm or leg or one side of the face Trouble speaking or seeing Confusion or loss of consciousness [phone] [employer] [place], [place] [id number]. All rights reserved. This information is not [...] o Milk or yogurt 8 General Instructions [facility] Emergency Department [address] [place] [address] Phone #: ext- [phone] 02/27/2021 22:09 Patient: [...] Academy of Nutrition and Dietetics www.eatright.org o [place] [employer] 379-569-0965 www.diabetes.org 6983-1779 [employer]. [address] [place] [address]. All rights reserved. This information is not intended as asubstitute for professional medical care. Always follow your healthcare professional's instructions. You have been given the following additional information: Diabetes with High Blood Sugar Diabetes- Overview Diet: Diabetes 9 General Instructions [facility] Emergency Department [address] [place] [address] Phone #: ext- [phone] 02/27/2021 22:09 Patient: JOSEL LAM Sex: M : 1970 Age: 50y(Electronically signed by Trae Garcia M.D. 02/28/2021 00:32) Name Value Range Interpretation Code Description Data Fabiola rce(s) Supporting Document(s) ID Date Data Source [id number] 02/27/2021 10:13:00 PM EDT [facility] 1 Clinical Report - Nurses [facility] Emergency Department [address] [place] [address] Phone #: ext- [phone] 02/27/2021 22:09 Patient: JOSE L LAM Sex: M : 1970 Age: 50yTRIAGEArrived by EMS. Historian: patient. ( per EMS called for high BG - BG 252 per ems , also c/o left toepain BG now 259).Acuity: LEVEL 3.Chief Complaint: (high BG).Treatment DIVISION CHIEF:None. --22:16 02/27/21 Katy Ortez R.N.22:11 02/27/21. BP: [...] killing yourself?". 2 Clinical Report - Nurses [facility] Emergency Department [address] [place] [address] Phone #: ext- [phone] 02/27/2021 22:09 Patient: JOSE L LAM [facility]#: [id number] Sex: M : 1970 Age: 50y ABUSE [...] Patient verbalized understanding. Written instructions provided in Maldivian. The patient was discharged by the physician. He was discharged home and accompanied by cab. He left ambulatory and via private vehicle. Driving 3 Clinical Report - Nurses [facility] Emergency Department [address] [place] [address] Phone #: ext- [phone] 02/27/2021 22:09 Patient: JOSE L LAM Sex: M : 1970 Age: 50y ([facility]). --23:20 02/27/21 Leena Ann R.N. 23:20 02/27/21. BP: deferred. HR: deferred. RR: deferred. O2 saturation: deferred. Temp: deferred. Pain level now deferred. --23:20 02/27/21 Leena Ann R.N.Locked/Released at 02/28/2021 00:22 by Katy Ortez R.N. Name Value Range Interpretation Code Description Data Fabiola rce(s) Supporting Document(s) ID Date Data Source [id number] 02/27/2021 10:13:00 PM EDT [facility] 1 Clinical Report - Physicians/Mid Levels [facility] Emergency Department [address] [place] [address] Phone #: ext- [phone] 02/27/2021 22:09 [facility]: [id number] Sex: M : 1970 Age: 50y Time [...] associated symptoms. (pt is known IDDM, from [place], living in local motel here in [place] until his home in [place] gets cleaned up, complains of his glucose been on/off high in last 2-3 days whenever he eats; pt was in [place] and called 911 to bring him here, [...] Allergy. 2 Clinical Report - Physicians/Mid Levels [facility] Emergency Department [address] [place] [address] Phone #: ext- [phone] 02/27/2021 22:09 Patient: [facility] [id number] Sex: M : 1970 Ag e: 50ySOCIAL [...] some atlocal pharmacy; pt will f/u w ACETYLENE BURNER in next week for DB medicine adjustment; [...] consistent 3 Clinical Report - Physicians/Mid Levels [facility] Emergency Department [address] [place] [address] Phone #: ext- [phone] 02/27/2021 22:09 Patient: JOSE L LAM Sex: [...] tablet. Refills: 2. Substitution permitted. Pharmacy - [facility] - [address] [facility] ; [place], [place] [phone]. . Follow-up: Return to the emergency department [...] care. 4 Clinical Report - Physicians/Mid Levels [facility] Emergency Department [address] [place] [address] Phone #: ext- [phone] 02/27/2021 22:09 Patient: JOSE L LAM Sex: M : 1970 Age: 50y(Electronically signed by Trae Garcia M.D. 02/28/2021 00:32) Name Value Range Interpretation Code Description Data Fabiola rce(s) Supporting Document(s) ID Date Data Source [id number] 02/03/2021 01:19:00 [place] [address] RESPIRATORY CARE REPORT ==== ---------NAME------- NUMBER SEX AGE ADMIT DISC. XRAY# F/C DMITRIY ALEGRIA [id number] 02/01/21 02/02/21 [id number] P E/R DATE OF : 1970 M/R# [id number] #: [id number] TR-03 LOCATION: EKG 19733 COMPLETE:02/02/21 0 2:55 AJP 97608 PHYSICIAN: BELIA Clinton Name Value Range Interpretation Code Description Data Fabiola rce(s) Supporting Document(s) ID Date Data Source [id number] 02/01/2021 11:44:00 PM EDT [facility] 1 OrderSheet [facility] Emergency Department [address] [place] [address] Phone #: ext- [phone] 02/01/2021 23:43 Patient: [...] 00:07 00:41 02/02/2021 Cheo Landis ; 02/02/2021 hBavya Hogan RLisaUrinalysis (Clean STAT 00:08 02/02/2021 00:08 Bhavya Snow) Bhavya Hogan R.N. R.N.; Verbal order per; Cheo Landis 2 OrderSheet [facility] Emergency Department [address] [place] [address] Phone #: ext- [phone] 02/01/2021 23:43 Patient: [...] rce(s) Supporting Document(s) ID Date Data Source [id number] 02/01/2021 11:44:00 PM EDT [facility] 1 Medication Reconciliation Report [facility] Emergency Department [address] [place] [address] Phone #: ext- [phone] 02/01/2021 23:43 Patient: [...] rce(s) Supporting Document(s) ID Date Data Source [id number] 02/01/2021 11:44:00 PM EDT [facility] 1 Medication Administration Record [facility] Emergency Department [address] [place] [address] Phone #: ext- [phone] 02/01/2021 23:43 Patient: JOSE L LAM Sex: M : 1970 Age: 50yWeight: 72.5 kgHeight/Length: 67 inBMI: 25.1ALLERGIES: None Date/Time Medication Administered Medication OrderedGiven HALDOL [IM] (HALOPERIDOL Haldol IM 5 mg (NOW x1)02:18 02/02/2021 LACTATE)Roberto Hogan RN Dose: 5 mg IM Name Value Range Interpretation Code Description Data Fabiola rce(s) Supporting Document(s) ID Date Data Source [id number] 02/01/2021 11:44:00 PM EDT [facility] 1 General Instructions [facility] Emergency Department [address] [place] [address] Phone #: [phone] ext- [phone] 02/01/2021 23:43 Patient: JOSE L LAM Sex: [...] job or your family Arrest, conviction, and alf sentence for possession of an illegal substance or for driving under the influenceHealth problems Strokes, heart attacks, and kidney failure 2 General Instructions [facility] Emergency Department [address] [place] [address] Phone #: ext- [phone] 02/01/2021 23:43 Patient: [...] of the resources below for help: National [place] on Alcoholism and Drug Dependence, www.ncadd.org, Narcotics Anonymous, www.na.org, [employer] Alcohol and Substance Abuse Information Center, www.[employer], . This center can refer you to a treatment program.Call 911Call 911 if any of the following occur: Seizure Hard time breathing or slow, irregular breathing Chest pain 3 General Instructions [facility] Emergency Department [address] [place] [address] Phone #: ext- [phone] 02/01/2021 23:43 Patient: JOSE L LAM Sex: [...] swelling, or tenderness at an injection site [id number] [employer]. [address] [place] [address]. All rights reserved. This information is not intended as asubstitute for professional medical care. Always follow your healthcare professional's instructions. You have been given the following additional information: Drug Abuse(Electronically signed by Cheo Landis 02/03/2021 07:10) Name Value Range Interpretation Code Description Data Fabiola rce(s) Supporting Document(s) ID Date Data Source [id number] 02/01/2021 11:44:00 PM EDT [facility] 1 Clinical Report - Nurses [facility] Emergency Department [address] [place] [address] Phone #: ext- [phone] 02/01/2021 23:43 Patient: JOSE L LAM Sex: M : 1970 Age: 50yTRIAGEHistorian: EMS.Triage time: 23:41 02/01/2021.Chief Complaint: HALLUCINATIONS.Onset: just prior to arrival. ( pt called 911 stating that there were people in his hotel room. (Ptuncooperative with EMS, reportedly.) pt is a poor historian and does not know his med ications.).EMS Treatment DIVISION CHIEF:See EMS report. --23:47 02/01/21 Bhavya Hogan R.N.Acuity: [...] Bhavya Khalil 2 Clinical Report - Nurses [facility] Emergency Department [address] [place] [address] Phone #: ext- [phone] 02/01/2021 23:43 Patient: [...] 100%. --02:53 02/02/21 Bhavya Hogan R.N. ( 8696 Chart faxed to [facility] Jig Inspector.). --02:54 02/02/21 Bhavya Hogan R.N. 02:00 02/02/21. BP: 148/101. MAP: 116. HR: 102. RR: 20. O2 saturation: 100%. Pain level now: 0/10. --02:56 02/02/21 Bhavya Hogan R.N. ( 219 Call placed to [facility], awaiting call back.). --02:59 02/02/21 Bhavya Hogan R.N. ( 224 Pt out of bed to bathroom, decided that he did not want staff in there with him. Started to get agitated. States that he is seeing people in his room behind his bed. Wants to have security with him to 3 Clinical Report - Nurses [facility] Emergency Department [address] [place] [address] Phone #: ext- [phone] 02/01/2021 23:43 Patient: JOSE L LAM Sex: M : 1970 Age: 50y keep him safe.). --03:02 02/02/21 Bhavya Hogan R.N. ( 0250 Pt requests to speak to the power transformer repair supervisor. KM at bedside.). --03:03 02/02/21 Bhavya Hogan R.N. 03:08 02/02/21. ( Pt insisting on leaving AMA. He activated his lifeline asking for Police to respond to the ED. notified. Pt voices that he is not suicidal and not homicidal.). --03:29 02/02/21 Bhavya Hogan R.N.DISPOSITION / DISCHARGE Departure time: 03:47 02/02/2021. Condition at departure: stable. Discharge instructions provided and reviewed with the patient. Patient verbalized understanding. Written instructions provided in Maldivian. The patient was discharged by the physician. [...] rce(s) Supporting Document(s) ID Date Data Source [id number] 02/01/2021 11:44:00 PM EDT [facility] 1 Clinical Report - Physicians/Mid Levels [facility] Emergency Department [address] [place] [address] Phone #: ext- [phone] 02/01/2021 23:43 Patient: [...] is present. Additional [facility] Patient seeing people in his [...] reviewed. 2 Clinical Report - Physicians/Mid Levels [facility] Emergency Department [address] [place] [address] Phone #: ext- [phone] 02/01/2021 23:43 Patient: [...] 14.8) 3 Clinical Report - Physicians/Mid Levels [facility] Emergency Department [address] [place] [address] Phone #: ext- [phone] 02/01/2021 23:43 Patient: [...] Male GFR Interprentation 20-49 yrs >60 mL/min Qbirbs71-78 yrs >56 mL/min Normal 60-69 yrs >49 mL/min Normal 70-79yrs>42 mL/min Normal 80 and above >35 mL/min Normal Female GFRInterpretation 20-39 yrs >60 mL/min Normal 40-49 yrs >58 mL/minNormal 50-59 yrs >51 mL/min Normal 60-69 yrs >45 mL/min Iciicu89-93 yrs >39 mL/min Normal 80 and above >32 mL/min NormalTSH: (YARED: 02/02/2021 00:25) ( NegRcvd 02/02/2021 01:20) Final results Test Result Flag Units (Reference) TSH 0.13 L uIU/mL (0.47 - 5.01)Acetaminophen Level: (YARED: 02/02/2021 00:25) ( MsgRcvd 02/02/2021 01:20) Final results Test Result Flag Units (Reference) 4 Clinical Report - Physicians/Mid Levels [facility] Emergency Department [address] [place] [address] Phone #: ext- [phone] 02/01/2021 23:43 Patient: JOSE L LAM Sex: M : 1970 Age: 50y ACETAMINOPHEN <5.0 UG/ML (0.0 - 30.0) Salicylate Level: (YARED: 02/02/2021 00:25) ( [facility] [place] 02/02/2021 01:20) Final results Test Result Flag Units (Reference) SALICYLATE <0.4 L mg/dL (2.0 - 20.0) ETOH: (YARED: 02/02/2021 00:25) ( [facility] 02/02/2021 01:20) Final results Test Result Flag Units (Reference) ALCOHOL <10.0 MG/DL ALCOHOL % 0.00 % (0.00 - 0.01) *FOR MEDICAL PURPOSES ONLY* Drug Screen-Urine: (YARED: 02/02/2021 00:25) ( [facility] 02/02/2021 01:04) Final results Test Result Flag [...] stable. 5 Clinical Report - Physicians/Mid Levels [facility] Emergency Department [address] [place] [address] Phone #: ext- [phone] 02/01/2021 23:43 Patient: [...] rce(s) Supporting Document(s) ID Date Data Source [id number] 02/02/2021 10:22:00 [place] [address] PHONE: [phone] FAX: [phone] Name .................. : PHILLIP ALEGRIA Acct Number.................. : [id number] ROOM. ................. : TR-03 MR Number ................... : [id number] Stay type ............. : E/R Discharge Date......... ... : 02/02/21 Admit Date ......... : 02/01/21 Admit Phys .................... : BELIA Clinton Date of ....... : 1970 Family Phys ................... : NON STAFF Phone .................. : [phone] Age ................................ : 50 Film# .................. .:[id number] Sex ................................. : M Unsigned transcriptions are preliminary reports and do not represent a medical or legal document CHEST PORTABLE [id number] COMPLETE:02/02/21 02:16 MWB [id number] Reas on(s): Cough PORTABLE CHEST SINGLE VIEW [...] rce(s) Supporting Document(s) ID Date Data Source [id number] 02/02/2021 12:55:00 AM EDT [facility] NOT DETECTEDNOT DETECTED{ PROC EDURAL CONTROL VALID [...] rce(s) Supporting Document(s) ID Date Data Source [id number] 02/02/2021 01:23:00 AM EDT [facility] Name Value Range Interpretation Code Description Data Fabiola rce(s) Supporting Document(s) [facility] COL[facility] yellow NORMAL: Yellow [facility] CLARITY clear NORMAL: Clear [facility] Specific gravity of Urine by Test strip 1.025 1.001 - 1.030 [facility] pH 5 5 - 9 [facility] al Glucose [Mass/volume] in Urine by Test strip 1000 NORMAL: Negat malu [facility] Bilirubin.total [Presence] in Urine by Test strip NEG NORMAL: Negative [facility] Ketones [Presence] in Urine by Test strip 150 NORMAL: Negative [facility] Protein [Mass/volume] in Urine by Test strip 15 NORMAL: Negat malu [facility] Nitrite [Presence] in Urine by Test strip NEG NORMAL: Negative [facility] BLOOD NEG NORMAL: Negative [facility] LEUK EST NEG NORMAL: Negative [facility] Urobilinogen [Mass/volume] in Urine by Test strip NOR less danya n 1.0 mg/dL [facility] MICROSCOPIC See Below [facility] ital WBC 0 - 1 NORMAL: NONE SEEN [facility] Erythrocytes [#/volume] in Urine by Test strip 0 - 1 NORMAL: NON E SEEN [facility] EPITHELIAL FEW NORMAL: NONE SEEN [facility] Bacteria [Presence] in Urine sediment by Light microscopy Tr anastasiya NORMAL: NONE SEEN [facility] Mucus [Presence] in Urine sediment by Light microscopy 1+ NOR MAL: NONE SEEN [facility] ID Date Data Source [id number] 02/02/2021 01:20:00 AM EDT [facility] Name Value Range Interpretation Code Description Data Fabiola rce(s) Supporting Document(s) Ethanol [Moles/volume] in Blood <10.0 MG/DL [facility] ALCOHOL % 0.00 % 0.00 - 0.01 [facility] ital *FOR MEDICAL PURPOSES ONLY * ID Date Data Source [id number] 02/02/2021 01:20:00 AM EDT [facility] Name Value Range Interpretation Code Description Data Fabiola rce(s) Supporting Document(s) SALICYLATE <0.4 mg/dL 2.0 - 20.0 L [facility] ID Date Data Source [id number] 02/02/2021 01:20:00 AM EDT [facility] Name Value Range Interpretation Code Description Data Fabiola rce(s) Supporting Document(s) Acetaminophen [Presence] in Urine <5.0 UG/ML 0.0 - 30.0 [facility] ID Date Data Source [id number] 02/02/2021 01:19:00 AM EDT [facility] Name Value Range Interpretation Code Description Data Fabiola rce(s) Supporting Document(s) Thyrotropin [Units/volume] in Serum or Plasma by Detec tion limit <= 0.05 mIU/L 0.13 uIU/mL 0.47 - 5.01 L [facility] ID Date Data Source [id number] 02/02/2021 01:19:00 AM EDT [facility] Name Value Range Interpretation Code Description Data Fabiola rce(s) Supporting Document(s) COMPREHENSIVE METABOLIC PANEL [facility] COMPREHENSIVE METABOLIC PANEL Sodium [Moles/volume] in Serum or Plasma 135 mEq/L 134 - 153 [facility] Potassium [Moles/volume] in Serum or Plasma 4.3 mEq/L 3.6 - 5.0 [facility] Chloride [Moles/volume] in Serum or Plasma 100 mEq/L 98 - 107 [facility] Carbon dioxide, total [Moles/volume] in Serum or Plasma 22 MEQ/L 22 - 30 [facility] Glucose [Mass/volume] in Serum or Plasma 295 MG/DL 70 - 99 H [facility] BUN 26 MG/DL 7 - 21 H [facility] al Creatinine [Mass/volume] in Serum or Plasma 0.9 MG/DL 0.7 - 1.5 [facility] BUN/CREAT 29 8 - 27 H [facility] Protein [Mass/volume] in Serum or Plasma 7.6 G/DL 6.3 - 8.2 [facility] Albumin [Mass/volume] in Serum or Plasma 4.5 G/DL 3.9 - 5.0 [facility] Globulin [Mass/volume] in Serum by calculation 3.1 GM/DL 2.4 - 3.2 [facility] A/G RATIO 1.5 0.8 - 2.0 [facility] Calcium [Mass/volume] in Serum or Plasma 9.4 MG/DL 8.4 - 10.2 [facility] Bilirubin.total [Mass/volume] in Serum or Plasma <0.7 MG/DL 0.2 - 1.3 [facility] Alkaline phosphatase [Enzymatic activity/volume] in Serum or Plasma 69 U/L 38 - 126 [facility] Aspartate aminotransferase [Enzymatic activity/volume] in Serum or Plasma 19 U/L 5 - 40 [facility] Alanine aminotransferase [Enzymatic activity/volume] in Seru m or Plasma 14 U/L 7 - 56 [facility] Anion gap 3 in Serum or Plasma 13.0 mmol/L 8.0 - 16.0 [facility] AGE 50 yrs [facility] al NON-AA GFR >60 mL/min [facility] ital AFR AMER GFR >60 mL/min [facility] Male GFR In terprentation 20-49 [...] >32 mL/min Normal ID Date Data Source [id number] 02/02/2021 01:04:00 AM EDT [facility] Name Value Range Interpretation Code Description Data Fabiola rce(s) Supporting Document(s) DRUG SCREEN URINE [facility] URINE DRUG SCREEN Amphetamine [Presence] in Urine by Screen method PRESUMP POS CHANG L: NEGATIVE [facility] BARBITURATES NEGATIVE NORMAL: NEGATIVE [facility] BENZO PRESUMP POS NORMAL: NEGATIVE [facility] COCAINE NEGATIVE NORMAL: NEGATIVE [facility] Tetrahydrocannabinol [Presence] in Urine NEGATIVE NORMAL: NEGATIVE [facility] OPIATES NEGATIVE NORMAL: NEGATIVE [facility] Phencyclidine [Presence] in Urine by Screen method NEGATIVE NOR MAL: NEGATIVE [facility] \\BLDo\\URINE DRUG SCR EEN INTERPRETATION\\BLDx\\ THE CUTOFFF LEVELS FOR DETECTION ARE FOLLOWS: AMPHETAMINES 1000 ng/ml BARBITUARATES 200 ng/ml BENZODIAZEPINES 100 ng/ml THC 50 ng/ml PHENCYCLIDINE 25 ng/ml OPIATES 300 ng/ml COCAINE 300 ng/ml ALL POSITIVES ARE CONSIDERED PRESUMPTIVE POSITIVE CONFIRMATION WILL BE PERFORMED AT PHYSICIAN REQUEST. ID Date Data Source [id number] 02/02/2021 12:41:00 AM EDT [facility] Name Value Range Interpretation Code Description Data Fabiola rce(s) Supporting Document(s) CBC W/AUTOMATED DIFF [facility] COMPLETE BLOOD COUNT Leukocytes [#/volume] in Blood by Automated count 7.4 10^3/uL 4.2 - 1 1.0 [facility] Erythrocytes [#/volume] in Blood by Automated count 4.47 10^6/uL 4. 50 - 6.30 L [facility] Hemoglobin [Mass/volume] in Blood 12.9 g/dL 14.0 - 16.0 L [facility] Hematocrit [Volume Fraction] of Blood by Automated count 39.2 % 4 1.0 - 51.0 L [facility] Erythrocyte mean corpuscular volume [Entitic volume] by Auto mated count 87.7 fL 80.0 - 94.0 [facility] Erythrocyte mean corpuscular hemoglobin [Entitic mass] by Automated count 28.9 pg 27.0 - 34.0 [facility] Erythrocyte mean corpuscular hemoglobin concentration [Mass/volume] by Automated count 32.9 g/dL 31.0 - 36.0 [facility] Erythrocyte distribution width [Ratio] by Automated count 14.3 % 11.5 - 14.8 [facility] Platelets [#/volume] in Blood by Automated count 179 10^3/uL 150 - 45 0 [facility] Platelet mean volume [Entitic volume] in Blood by Automated count 9.1 fL 7.4 - 10.4 [facility] Neutrophils/100 leukocytes in Blood by Automated count 83.4 % 37. 0 - 80.0 H [facility] Lymphocytes/100 leukocytes in Blood by Manual count 10.1 % 25.0 - 40.0 L [facility] Monocytes/100 leukocytes in Blood by Automated count 5.7 % 3.0 - 8.0 [facility] Eosinophils/100 leukocytes in Blood by Automated count 0.1 % 0.0 - 7.0 [facility] Basophils/100 leukocytes in Blood by Automated count 0.4 % 0.0 - 2.0 [facility] %IG 0.3 % 0.0 - 0.0 H [facility] al %NRBC 0.0 % 0.0 - 0.0 [facility] al Neutrophils [#/volume] in Blood by Automated count 6.14 10^3/uL 2.00 - 6.90 [facility] Lymphocytes [#/volume] in Blood by Automated count 0.74 10^3/uL 0.60 - 3.40 [facility] Monocytes [#/volume] in Blood by Automated count 0.42 10^3/uL 0.00 - 0.90 [facility] Eosinophils [#/volume] in Blood by Automated count 0.01 10^3/uL 0.00 - 0.70 [facility] Basophils [#/volume] in Blood by Automated count 0.03 10^3/uL 0.00 - 0.20 [facility] #IG 0.02 10^3/uL 0.00 - 0.10 [facility] #NRBC 0.00 10^3/uL 0.00 - 0.00 [facility] MANUAL DIFF NOT INDICATED [facility] RBC MORPH NOT INDICATED [facility] ID Date Data Source [id number] 01/23/2021 09:57:00 AM EDT [facility]) Name Value Range Interpretation Code Description Data Fabiola rce(s) Supporting Document(s) PSA total 2.6 NG/mL 0.0-4.0 PSA Total [place] ([facility]) PSA comment . PSA Comment [place] ([facility]) ID Date Data Source [id number] 01/23/2021 09:57:00 AM EDT [facility]) Name Value Range Interpretation Code Description Data Fabiola rce(s) Supporting Document(s) Hemoglobin A1c/Hemoglobin.total in Blood 10.6 % Hemoglobin a1C [place] ([facility]) estimated average glucose 258 mg/dL 60-110 Above high norm al Estimated Average Glucose [facility]) ID Date Data Source [id number] 01/23/2021 09:57:00 AM EDT [facility]) Name Value Range Interpretation Code Description Data Fabiola rce(s) Supporting Document(s) total 25(oh) vitamin D 14.6 NG/mL 30.0-100.0 Below low normal T otal 25(Oh) Vitamin D [facility]) ID Date Data Source [id number] 01/23/2021 09:57:00 AM EDT [facility]) Name Value Range Interpretation Code Description Data Fabiola rce(s) Supporting Document(s) thyroid stimulating hormone 0.947 uIU/mL 0.358-3.740 Thyroid Stimulating Hormone [facility]) free T4 0.81 NG/dL 0.76-1.46 Free T4 [place] ([facility]) ID Date Data Source [id number] 01/23/2021 09:57:00 AM EDT [place] ([facility]) Name Value Range Interpretation Code Description Data Fabiola rce(s) Supporting Document(s) triglycerides level 164 mg/dL <150 Above high normal Triglycer ides Level [place] ([facility]) cholesterol level 178 mg/dL <200 Cholesterol Level [place] ([facility]) HDL cholesterol 68 mg/dL >40 HDL Cholesterol [place] ([facility]) Cholesterol in LDL [Mass/volume] in Serum or Plasma 77 mg/dL <1 00 LDL Cholesterol [place] ([facility]) non-HDL-C 110 mg/dL Non-hdl-c [facility] ([facility]) cholesterol risk ratio <5 Cholesterol R isk Ratio [place] ([facility]) ID Date Data Source [id number] 01/23/2021 09:57:00 AM EDT [place] ([facility]) Name Value Range Interpretation Code Description Data Fabiola rce(s) Supporting Document(s) blood urea nitrogen 12 mg/dL 7-18 Blood Urea Nitro gen [place] ([facility]) glucose, fasting 354 mg/dL 70-100 Above high normal Glucose, Fas ting [place] ([facility]) glomerular filtration rate > 60.0 >56 Glomerula r Filtration Rate [place] ([facility]) creatinine for GFR 0.88 mg/dL 0.70-1.30 Creatinine for GF R [place] ([facility]) sodium level 134 mEq/L 136-145 Below low normal Sodium Level ATHE NA ([facility]) potassium serum 4.1 mEq/L 3.5-5.1 Potassium Serum [place] NA ([facility]) chloride level 101 mEq/L 98-107 Chloride Level [place] ([facility]) anion gap 9 mEq/L 8-16 Anion Gap [place] ([facility]) carbon dioxide level 24 mEq/L 21-32 Carbon Dioxide Level [place] ([facility]) calcium level 9.3 mg/dL 8.5-10.1 Calcium Level MRATIR ( [facility]) AST/SGOT 13 U/L 7-37 AST/SGOT [place] ([facility]) ALT/SGPT 19 U/L 12-78 ALT/SGPT [place] ([facility]) alkaline phosphatase 79 U/L 45-117 Alkaline Phosph atase [facility] ([facility]) bilirubin,total 0.3 mg/dL 0.2-1.0 Bilirubin,total ATHE NA ([facility]) total protein 8.2 gm/dL 6.4-8.2 Total Protein [facility] ( [facility]) albumin 3.7 gm/dL 3.2-5.2 Albumin [facility] ([facility]) albumin/globulin ratio Albumin/globu liz Ratio [facility] ([facility]) ID Date Data Source [id number] 01/23/2021 09:57:00 AM EDT [place] ([facility]) Name Value Range Interpretation Code Description Data Fabiola rce(s) Supporting Document(s) erythrocyte sedimentation rate 35 mm/HR 0-20 Above high normal Erythrocyte Sedimentation Rate [facility] ([facility]) ID Date Data Source [id number] 01/23/2021 09:57:00 AM EDT [facility]) Name Value Range Interpretation Code Description Data Fabiola rce(s) Supporting Document(s) white blood count 7.0 10 4.0-10.0 White Blood Count [facility] ([facility]) hemoglobin 12.6 g/dL 13.5-17.5 Below low normal Hemoglobin [facility] ( [facility]) red blood count 4.41 10 4.30-6.10 Red Blood Count [place] ([facility]) hematocrit 39.0 % 42.0-52.0 Below low normal Hematocrit [facility] ( [facility]) mean corpuscular volume 88.4 fL 80.0-96.0 Mean Corpusc ular Volume [facility] ([facility]) mean corpuscular HGB conc 32.3 g/dL 32.0-36.5 Mean Corpu scular HGB Conc [facility] ([facility]) mean corpuscular hemoglobin 28.6 pg 27.0-33.0 Mean Cor puscular Hemoglobin [facility] ([facility]) platelet count, automated 243 10 150-450 Platelet C ount, Automated [facility] ([facility]) red cell distribution width 14.1 % 11.5-14.5 Red Cell Distribution Width [facility] ([facility]) lymph % 19.9 % 24.0-44.0 Below low normal Lymph % [place] ( [facility]) neutrophils % 70.2 % 36.0-66.0 Above high normal Neutrophils % A [place] ([facility]) eos % 0.9 % 0.0-3.0 Eos % [place] ([facility]) mono % 8.3 % 2.0-8.0 Above high normal [place] % [place] ([facility]) baso % 0.3 % 0.0-1.0 Baso % [place] ([facility]) nucleated red blood cell % 0.0 % 0-0 Nucleated Red Blood Cell % [place] ([facility]) immature granulocyte % 0.4 % 0-3.0 Immature Gran ulocyte % [place] ([facility]) lymph # 1.4 10 1.5-5.0 Below low normal Lymph # [place] ( [facility]) neutrophils # 4.9 10 1.5-8.5 Neutrophils # [place] ( [facility]) eos # 0.1 10 0.0-0.5 Eos # [facility] ([facility]) mono # 0.6 10 0.0-0.8 [place] # [facility] ([facility]) baso # 0.0 10 0.0-0.2 Baso # [facility] ([facility]) ID Date Data Source [id number] 12/13/2020 03:17:00 AM EDT [facility] Name Value Range Interpretation Code Description Data Fabiola rce(s) Supporting Document(s) SARS-CoV-2 (COVID 19) NEGATIVE - SARS-CoV-2 (COVID19) [facility] This lab was ordered by [facility] a nd reported by [facility]. ID Date Data Source [id number] 11/30/2020 03:22:00 PM EDT [facility] Name Value Range Interpretation Code Description Data Fabiola rce(s) Supporting Document(s) SARS coronavirus 2 RNA [Presence] in Res piratory specimen by WILEY with probe detection NEGATIVE [facility] This lab was ordered by [facility] a nd reported by [facility]. ID Date Data Source [id number] 11/06/2020 11:14:00 AM EDT [facility] Name Value Range Interpretation Code Description Data Fabiola rce(s) Supporting Document(s) GLUCOSE,METER 65-100 Above high normal [facility] ID Date Data Source [id number] 11/06/2020 09:49:14 AM EDT [facility] PATIENT INFORMATIONPatient MRN Name Date of [id number] Jose L Lam 1970 50 y.o. Weight Gender PT Class 66.7 kg M Psych InptPT Location Admission Date/Time Visit ID Attending [id number] 10/28/20 1613 --- Christine Cobb MD([id number]) EPI ID CSN Admitting Provider [id number] Eric Michel DO([id number])Psychiatric Discharge NoteDischarge Diagnosis: chronic schizophreniaPrincipal Problem: Paranoid schizophrenia ([facility] Code)Active Problems: Depressive disorder Generalized anxiety disorder Polysubstance dependence ([facility] Code) Tobacco user Viral hepatitis C Vitamin D deficiency Type 2 diabetes mellitus without complication, with long-term current use ofinsulin ([facility] Code)Hospital Course: Jose L Lam [...] will be followed up on an outpatientbasis.Jessenia GarrettWI psychiatry attending addendumPatient seen and evaluated with medical student. Chart reviewed. The abovenote has been carefully reviewed and edited to reflect the input of this radio news writer.The patient is currently presenting as not psychotic, showing no evidence ofsuicidal thinking and future focused on return home.Christine Cobb MD Name Value Range Interpretation Code Description Data Fabiola rce(s) Supporting Document(s) ID Date Data Source [id number] 11/06/2020 07:10:00 AM EDT [facility] Name Value Range Interpretation Code Description Data Fabiola rce(s) Supporting Document(s) GLUCOSE,METER 65-100 Above high normal [facility] ID Date Data Source [id number] 11/05/2020 07:44:00 PM EDT [facility] Value Range Interpretation Code Description Data Fabiola rce(s) Supporting Document(s) GLUCOSE,METER 65-100 Above high normal [place] [facility] ID Date Data Source [id number] 11/05/2020 04:12:00 PM EDT [facility] Value Range Interpretation Code Description Data Fabiola rce(s) Supporting Document(s) GLUCOSE,METER 65-100 Above high normal [place] [facility] ID Date Data Source [id number] 11/05/2020 11:22:00 AM EDT [facility] Value Range Interpretation Code Description Data Fabiola rce(s) Supporting Document(s) GLUCOSE,METER 65-100 Above high normal [place] [facility] ID Date Data Source [id number] 11/05/2020 06:45:00 AM EDT [facility] Value Range Interpretation Code Description Data Fabiola rce(s) Supporting Document(s) GLUCOSE,METER 65-100 Above high normal [place] [facility] ID Date Data Source [id number] 11/04/2020 09:18:00 PM EDT [facility] Value Range Interpretation Code Description Data Fabiola rce(s) Supporting Document(s) GLUCOSE,METER 65-100 Above high normal [place] [facility] ID Date Data Source [id number] 11/04/2020 11:20:00 AM EDT [facility] Value Range Interpretation Code Description Data Fabiola rce(s) Supporting Document(s) GLUCOSE,METER 65-100 Above high normal [place] [facility] ID Date Data Source [id number] 11/04/2020 08:22:00 AM EDT [facility] Value Range Interpretation Code Description Data Fabiola rce(s) Supporting Document(s) GLUCOSE,METER 65-100 Above high normal [place] [facility] ID Date Data Source [id number] 11/04/2020 06:52:00 AM EDT [facility] Value Range Interpretation Code Description Data Fabiola rce(s) Supporting Document(s) GLUCOSE,METER 65-100 Normal (applies to non-numeric re sults) [facility] ID Date Data Source [id number] 11/03/2020 09:40:00 PM EDT [facility] Name Value Range Interpretation Code Description Data Fabiola rce(s) Supporting Document(s) GLUCOSE,METER 65-100 Above high normal [facility] ID Date Data Source [id number] 11/03/2020 11:18:00 AM EDT [facility] Value Range Interpretation Code Description Data Fabiola rce(s) Supporting Document(s) GLUCOSE,METER 65-100 Above high normal [facility] ID Date Data Source [id number] 11/02/2020 09:13:00 PM EDT [facility] Name Value Range Interpretation Code Description Data Fabiola rce(s) Supporting Document(s) GLUCOSE,METER 65-100 Above high normal Rocheste [facility] ID Date Data Source [id number] 11/02/2020 04:39:00 PM EDT [facility] Value Range Interpretation Code Description Data Fabiola rce(s) Supporting Document(s) GLUCOSE,METER 65-100 Above high normal [facility] ID Date Data Source [id number] 11/02/2020 11:24:00 AM EDT [facility] Value Range Interpretation Code Description Data Fabiola rce(s) Supporting Document(s) GLUCOSE,METER 65-100 Above high normal [facility] ID Date Data Source [id number] 11/02/2020 06:00:00 AM EDT [facility] Value Range Interpretation Code Description Data Fabiola rce(s) Supporting Document(s) GLUCOSE,METER 65-100 Above high normal [facility] ID Date Data Source [id number] 11/01/2020 04:15:00 PM EDT [facility] Value Range Interpretation Code Description Data Fabiola rce(s) Supporting Document(s) GLUCOSE,METER 65-100 Above high normal [facility]ste [facility] ID Date Data Source [id number] 11/01/2020 11:27:00 AM EDT [facility] Value Range Interpretation Code Description Data Fabiola rce(s) Supporting Document(s) GLUCOSE,METER 65-100 Above high normal [facility] ID Date Data Source [id number] 11/01/2020 10:51:00 AM EDT [facility] Name Value Range Interpretation Code Description Data Fabiola rce(s) Supporting Document(s) SARS coronavirus 2 RNA [Presence] in Uns pecified specimen by WILEY with probe detection Not detected [facility] This lab was ordered by [facility] and reported by [facility]. ID Date Data Source [id number] 11/01/2020 01:37:00 PM EDT [facility] Source->NasopharyngealIs this test for d iagnosis or screening?->ScreeningRelease to patient->ImmediateReason for COVID-19 test->Routine testing of asymptomatichospitalized patientsUnit Collect Name Value Range Interpretation Code Description Data Fabiola rce(s) Supporting Document(s) SOURCE Nasopharyngeal [facility] SARS-CoV-2 BY RT-PCR Not detected Normal (applies to non-n umeric results) [facility] NEGATIVE RESULTA negative ("Not detected ") result does not rbzwlvmgSBAJ-KpA-6 infection, and a negative result should not [...] or call 911. For additional information please [email or web address] [email or web address] es: Coronavirus in [email or web address] hospitalGet the latest reopening updates, travel guidelines, and learn howsaint agnes medical centeres and schools are impacted.https://[email or web address] .health.[place].gov/homeTesting was performed on the yony? Alvina? System using yony?SARS-CoV-2 & Influenza A/B reagent. This is a mmeb-whxzOQ-QWC assay which qualitatively detects nucleic acid fromsevere acute respiratory syndrome coronavirus 2 (SARS-CoV-2)in suitable respiratory specimens such as nasopharyngeal swabs.This assay has been approved for use under an Emergency UseAuthorization (EUA) by the Food and Drug Administration (FDA). ID Date Data Source [id number] 11/01/2020 06:48:00 AM EDT [facility] Value Range Interpretation Code Description Data Fabiola rce(s) Supporting Document(s) GLUCOSE,METER 65-100 Above high normal [facility] ID Date Data Source [id number] 10/31/2020 08:02:00 PM EDT [facility] Value Range Interpretation Code Description Data Faibola rce(s) Supporting Document(s) GLUCOSE,METER 65-100 Above high normal [facility]ste [facility] ID Date Data Source [id number] 10/31/2020 04:11:00 PM EDT [facility] Value Range Interpretation Code Description Data Fabiola rce(s) Supporting Document(s) GLUCOSE,METER 65-100 Above high normal [facility] ID Date Data Source [id number] 10/31/2020 11:19:00 AM EDT [facility] Value Range Interpretation Code Description Data Fabiola rce(s) Supporting Document(s) GLUCOSE,METER 65-100 Above high normal [facility] ID Date Data Source [id number] 10/31/2020 06:50:00 AM EDT [facility] Value Range Interpretation Code Description Data Fabiola rce(s) Supporting Document(s) GLUCOSE,METER 65-100 Above high normal [facility] ID Date Data Source [id number] 10/30/2020 09:47:00 PM EDT [facility] Value Range Interpretation Code Description Data Fabiola rce(s) Supporting Document(s) GLUCOSE,METER 65-100 Above high normal [facility] ID Date Data Source [id number] 10/30/2020 04:28:00 PM EDT [facility] Value Range Interpretation Code Description Data Fabiola rce(s) Supporting Document(s) GLUCOSE,METER 65-100 Above high normal [facility]ste [facility] ID Date Data Source [id number] 10/30/2020 12:10:00 PM EDT [facility] Value Range Interpretation Code Description Data Fabiola rce(s) Supporting Document(s) GLUCOSE,METER 65-100 Normal (applies to non-numeric re sults) [facility] ID Date Data Source [id number] 10/30/2020 11:15:23 AM EDT [facility] PATIENT INFORMATIONPatient MRN Name Date of [id number] Jose L Lam 1970 50 y.o. Weight Gender PT Class 66.7 kg M EmergencyPT Location Admission Date/Time Visit ID Attending [id number] 10/30/20 0924 --- Amna Lobato MD([id number]) EPI ID CSN Admitting Provider [id number] ---[facility] DEPTHistoryChief ComplaintPatient presents with Assyzyymrgg39 y.o. male with past medical history significant [...] or trauma. No syncope.History provided by: PatientLanguage sports information director used: NoPast Medical History:Diagnosis Date Depression Diabetes mellitus ([facility] Code) Schizo affective schizophrenia ([facility] HCC Code)History reviewed. No pertinent surgical [...] reviewed: EKG reviewed and [facility]ardiac [facility] (bpm): 89 bpmEKG rhythm: sinus rhythmAxis: normalPR interval: normal [place] intervalQRS interval: normal QRS intervalQT interval: normal QT intervalST segment: ST segments normalT wave inversion on lead: aVL and C1Idtrjgfe impression: NSR ED CourseDifferential diagnosis: Dehydration, electrolyte [...] He agreeswith plan for transfer back to [facility]. I spoke with our CPEP team and they statedthat patient should be able to be transferred to [facility] without a anotherpsychiatric evaluation in the [...] rce(s) Supporting Document(s) ID Date Data Source [id number] 10/30/2020 09:54:00 AM EDT [facility] Release to patient->ImmediateUnit Colle t Name Value Range Interpretation Code Description Data Fabiola rce(s) Supporting Document(s) SODIUM 136-145 Normal (applies to non-numeric resul ts) [facility] POTASSIUM 3.5-5.2 Normal (applies to non-numeric resul ts) [facility] CHLORIDE 100-110 Normal (applies to non-numeric resul ts) [facility] CO2 22-31 Normal (applies to non-numeric results) [facility] ANION GAP 3-18 Normal (applies to non-numeric resul ts) [facility] BUN 7-21 Above high normal [facility] CREATININE 0.8-1.3 Normal (applies to non-numeric resul ts) [facility] GLUCOSE 60-100 Above high normal [facility] CALCIUM 8.4-10.0 Normal (applies to non-numeric resul ts) [facility] ID Date Data Source [id number] 10/30/2020 10:01:00 AM EDT [facility] Release to patient->ImmediateUnit Colle t Name Value Range Interpretation Code Description Data Fabiola rce(s) Supporting Document(s) REACTIVE LYMPHS 0-0 Above high normal [facility] MANUAL DIFFERENTIAL PERFORMED [facility] RBC MORPHOLOGY NORMAL [facility] ID Date Data Source [id number] 10/30/2020 10:01:00 AM EDT [facility] Release to patient->ImmediateUnit Collec t Name Value Range Interpretation Code Description Data Fabiola rce(s) Supporting Document(s) WBC 4.7-10.6 Normal (applies to non-numeric resul ts) [facility] RBC 4.69-6.09 Below low normal [facility] HGB 13.8-17.9 Below low normal [facility] HCT 43-51 Below low normal [facility] MCV 80-97 Normal (applies to non-numeric results) [facility] MCH 26.6-30.7 Normal (applies to non-numeric resul ts) [facility] MCHC 31.8-34.9 Normal (applies to non-numeric resul ts) [facility] RDW 12.9-16.0 Normal (applies to non-numeric resul ts) [facility] PLATELET COUNT 142-414 Normal (applies to non-numeric r esults) [facility] MPV 8.9-12.3 Normal (applies to non-numeric resul ts) [facility] NEUTROPHILS 45-75 Normal (applies to non-numeric resu lts) [facility] LYMPHOCYTES 15-45 Normal (applies to non-numeric resu lts) [facility] MONOCYTES 0-15 Normal (applies to non-numeric resul ts) [facility] EOSINOPHILS 0-5 Normal (applies to non-numeric resu lts) [facility] BASOPHILS 0-3 Normal (applies to non-numeric resul ts) [facility] NEUTROPHIL # 2.0-7.2 Normal (applies to non-numeric res ults) [facility] LYMPHOCYTE # 0.6-3.3 Normal (applies to non-numeric res ults) [facility] MONOCYTE # 0.1-1.1 Normal (applies to non-numeric resul ts) [facility] EOSINOPHIL # 0.0-0.7 Normal (applies to non-numeric res ults) [facility] BASOPHIL # 0.0-0.1 Normal (applies to non-numeric resul ts) [facility] ID Date Data Source [id number] 10/30/2020 09:54:00 AM EDT [facility] Release to patient->ImmediateUnit Collec t Name Value Range Interpretation Code Description Data Fabiola rce(s) Supporting Document(s) GFR BLACK 56-130 Normal (applies to non-numeric resul ts) [facility] For both GFR and GFR BLACK, th e accuracy of the GFRcalculation is contingent on a stable level of serumcreatinine. The GFR calculation is normalized to 1.73 "meterssquared" body surface area. A GFR less than 60 may alterclinical management decisions. A GFR within the age-adjustedreference range does not exclude kidney disease. ID Date Data Source [id number] 10/30/2020 09:54:00 AM EDT [facility] Release to patient->ImmediateUnit Collec t Name Value Range Interpretation Code Description Data Fabiola rce(s) Supporting Document(s) GFR 56-130 Normal (applies to non-numeric re sults) [facility] ID Date Data Source [id number] 10/30/2020 08:56:00 AM EDT [facility] Name Value Range Interpretation Code Description Data Fabiola rce(s) Supporting Document(s) SARS coronavirus 2 RNA [Presence] in Uns pecified specimen by WILEY with probe detection Not detected [facility] This lab was ordered by [facility] and reported by [facility]. ID Date Data Source [id number] 10/30/2020 09:58:00 AM EDT [facility] Source->NasopharyngealIs this test for d iagnosis or screening?->ScreeningRelease to patient->ImmediateReason for COVID-19 test->Routine testing of asymptomatichospitalized patientsUnit Collect Name Value Range Interpretation Code Description Data Fabiola rce(s) Supporting Document(s) SOURCE Nasopharyngeal [facility] SARS-CoV-2 BY RT-PCR Not detected Normal (applies to non-n umeric results) [facility] NEGATIVE RESULTA negative ("Not detected ") result does not pqoqpdheQOKU-VdB-8 infection, and a negative result should not [...] or call 911. For additional information please [email or web address] es: Coronavirus in [facility]www.[facility] hospitalGet the latest reopening updates, travel guidelines, and learn howsaint agnes medical centeres and schools are impacted.https://[email or web address] .health.[place].gov/homeTesting was performed on the yony? Alvina? System using yony?SARS-CoV-2 & Influenza A/B reagent. This is a qexu-sxduUY-NEU assay which qualitatively detects nucleic acid fromsevere acute respiratory syndrome coronavirus 2 (SARS-CoV-2)in suitable respiratory specimens such as nasopharyngeal swabs.This assay has been approved for use under an Emergency UseAuthorization (EUA) by the Food and Drug Administration (FDA). ID Date Data Source [id number] 10/30/2020 06:56:00 AM EDT [facility] Name Value Range Interpretation Code Description Data Fabiola rce(s) Supporting Document(s) GLUCOSE,METER 65-100 Above high normal Rocheste [facility] ID Date Data Source [id number] 10/29/2020 08:28:00 PM EDT [facility] Name Value Range Interpretation Code Description Data Fabiola rce(s) Supporting Document(s) GLUCOSE,METER 65-100 Above high normal Rocheste [facility] ID Date Data Source [id number] 10/29/2020 04:24:00 PM EDT [facility] Name Value Range Interpretation Code Description Data Fabiola rce(s) Supporting Document(s) GLUCOSE,METER 65-100 Above high normal Rocheste [facility] ID Date Data Source [id number] 10/29/2020 02:52:05 PM EDT [facility] PATIENT INFORMATIONPatient MRN Name Date of [id number] Jose L Lam 1970 50 y.o. Weight Gender PT Class 66.7 kg M Psych InptPT Location Admission Date/Time Visit ID Attending [id number] 10/28/20 1613 --- Christine Cobb MD([id number]) EPI ID CSN Admitting Provider [id number] Eric Michel DO([id number])Psychiatrist Note - Comprehensive Psychiatric Emergency ProgramDate: 10/28/20 at 5:07 PMConsultant requested By: Dr. Steele of Present IllnessPlease see clinical fishing vessel captain note for comprehensive detailsThis is a 50-year-old -[place] male with history of schizophrenia andsubstance use who was transferred from [facility] due to paranoiaand command auditory hallucinations. [...] paranoid typeCocaine use disorderAssessmentThis is a 50-year-old -[place] male with history of schizophrenia andsubstance abuse who presents due to paranoia and command auditoryhallucinations. Patient continues to report paranoid delusions and commandauditory hallucinations telling him to harm himself and others. Patientrequires inpatient hospitalization for safety and stabilization.PlanPatient will be admitted to [facility] under 9.37 for safety and stabilization.Viscera Washer: Eric Michel DO at 5:07 PM Name Value Range Interpretation Code Description Data Fabiola rce(s) Supporting Document(s) ID Date Data Source [id number] 10/29/2020 11:34:00 AM EDT [facility] Name Value Range Interpretation Code Description Data Fabiola rce(s) Supporting Document(s) GLUCOSE,METER 65-100 Above high normal [facility] ID Date Data Source [id number] 10/29/2020 06:37:00 AM EDT [facility] Name Value Range Interpretation Code Description Data Fabiola rce(s) Supporting Document(s) GLUCOSE,METER 65-100 Above high normal [facility] ID Date Data Source [id number] 10/29/2020 12:15:00 PM EDT [facility] Release to patient->ImmediateUnit Colle t Name Value Range Interpretation Code Description Data Fabiola e(s) Supporting Document(s) eAVERAGE GLUCOSE 68-126 Above high normal [facility] HEMOGLOBIN A1C 4.2-5.6 Above high normal [facility] Herpes simplex virus Type I by Direct Fl uorescent Antibody Stain.No Varicella Zoster Virus by Direct Fluorescent Antibody Stain.Per ADA 2018 Guidelines, HbA1c values should be interpreted as follows: Normal: less than 5.7% Prediabetes: 5.7% - 6.4% Diabetes: greater than 6.4%Samples containing >7% HbF may yield lower than expected HbA1c results.Additional testing not affected by HbF can be requested if clinicallyindicated. Contact [phone] for more information. ID Date Data Source [id number] 10/30/2020 12:20:00 PM EDT [facility] Release to patient->ImmediateUnit [facility] t Name Value Range Interpretation Code Description Data Fabiola rce(s) Supporting Document(s) HEP C RNA PCR(QUANT) NOT DETECTED Abnormal (applies to non -numeric results) [facility] HEP C RNA PCR LOG CONVERSION 0.0 Abnormal (applies to non-numeric results) [facility] The HCV Viral Load assay is reported [...] Acid Test (NINO). ID Date Data Source [id number] 10/29/2020 02:01:00 PM EDT [facility] Release to patient->Immediateit [facility] t Name Value Range Interpretation Code Description Data Fabiola rce(s) Supporting Document(s) T PALLIDUM AB NONREACTIVE Normal (applies to non-numeric r esults) [facility] T.pallidum Antibody Index: less than 0.9 0A [...] TPal Ab Index ID Date Data Source [id number] 10/29/2020 07:11:00 AM EDT [facility] Release to patient->ImmediateUnit [facility] t Name Value Range Interpretation Code Description Data Fabiola rce(s) Supporting Document(s) GFR BLACK 56-130 Normal (applies to non-numeric resul ts) [facility] For both GFR and GFR BLACK, th e accuracy of the GFRcalculation is contingent on a stable level of serumcreatinine. The GFR calculation is normalized to 1.73 "meterssquared" body surface area. A GFR less than 60 may alterclinical management decisions. A GFR within the age-adjustedreference range does not exclude kidney disease. ID Date Data Source [id number] 10/29/2020 07:11:00 AM EDT [facility] Release to patient->ImmediateUnit [facility] t Name Value Range Interpretation Code Description Data Fabiola rce(s) Supporting Document(s) GFR 56-130 Normal (applies to non-numeric re sults) [facility] ID Date Data Source [id number] 10/29/2020 07:11:00 AM EDT [facility] Release to patient->ImmediateUnit [facility] t Name Value Range Interpretation Code Description Data Fabiola rce(s) Supporting Document(s) SODIUM 136-145 Normal (applies to non-numeric resul ts) [facility] POTASSIUM 3.5-5.2 Normal (applies to non-numeric resul ts) [facility] CHLORIDE 100-110 Normal (applies to non-numeric resul ts) [facility] CO2 22-31 Normal (applies to non-numeric results) [facility] ANION GAP 3-18 Normal (applies to non-numeric resul ts) [facility] BUN 7-21 Normal (applies to non-numeric results) [facility] CREATININE 0.8-1.3 Normal (applies to non-numeric resul ts) [facility] GLUCOSE 60-100 Normal (applies to non-numeric resul ts) [facility] CALCIUM 8.4-10.0 Normal (applies to non-numeric resul ts) [facility] TOTAL PROTEIN 6.4-8.2 Normal (applies to non-numeric re sults) [facility] ALBUMIN 3.5-5.0 Normal (applies to non-numeric resul ts) [facility] GLOBULIN 2.6-3.2 Above high normal [facility] A/G RATIO 1.1-1.8 Below low normal [facility] BILI, TOTAL 0.1-1.1 Normal (applies to non-numeric resu lts) [facility] AST 15-37 Normal (applies to non-numeric results) [facility] ALT 15-60 Normal (applies to non-numeric results) [facility] ALK PHOS 39-117 Normal (applies to non-numeric resul ts) [facility] ID Date Data Source [id number] 10/29/2020 07:11:00 AM EDT [facility] Release to patient->ImmediateUnit Collec t Name Value Range Interpretation Code Description Data Fabiola rce(s) Supporting Document(s) CHOLESTEROL 50-180 Normal (applies to non-numeric resu lts) [facility] TRIGLYCERIDES 30-150 Normal (applies to non-numeric re sults) [facility] HDL CHOLESTEROL 40-60 Normal (applies to non-numeric results) [facility] HDL levels are inversely related to the incidence of coronaryheart disease (CHD).HDL less than 40 mg/dL.........Increased risk for CHDHDL greater than 59 mg/dL.......Negative risk for CHD non-HDL-C 95-160 Below low normal [facility] CHOL/HDL RATIO [facility] CHD CHOL/HDL RATIORisk Group Men Women Lowest <3.8 <2.9Low 3.8-4.7 2.9-3.6Moderate 4.8- 5.9 3.7-4.6High >5.9 >4.6 LDL (calc) 30-100 Normal (applies to non-numeric resul ts) [facility] ID Date Data Source [id number] 10/29/2020 07:11:00 AM EDT [facility] Release to patient->ImmediateUnit Collec t Name Value Range Interpretation Code Description Data Fabiola rce(s) Supporting Document(s) FOLATE 5.9-23.3 Normal (applies to non-numeric resul ts) [facility] ID Date Data Source [id number] 10/29/2020 07:11:00 AM EDT [facility] Release to patient->ImmediateUnit Collec t Name Value Range Interpretation Code Description Data Fabiola rce(s) Supporting Document(s) VIT B12 211-911 Normal (applies to non-numeric resul ts) [facility] ID Date Data Source [id number] 10/29/2020 06:21:00 AM EDT [facility] Release to patient->ImmediateUnit Collec t Name Value Range Interpretation Code Description Data Fabiola rce(s) Supporting Document(s) WBC 4.7-10.6 Normal (applies to non-numeric resul ts) [facility] RBC 4.69-6.09 Below low normal [facility] HGB 13.8-17.9 Below low normal [facility] HCT 43-51 Below low normal [facility] MCV 80-97 Normal (applies to non-numeric results) [facility] MCH 26.6-30.7 Normal (applies to non-numeric resul ts) [facility] MCHC 31.8-34.9 Normal (applies to non-numeric resul ts) [facility] RDW 12.9-16.0 Normal (applies to non-numeric resul ts) [facility] PLATELET COUNT 142-414 Normal (applies to non-numeric r esults) [facility] MPV 8.9-12.3 Normal (applies to non-numeric resul ts) [facility] ID Date Data Source [id number] 10/29/2020 02:09:58 AM EDT [facility] PATIENT INFORMATIONPatient MRN Name Date of [id number] Jose L Lam 1970 50 y.o. Weight Gender PT Class 66.7 kg M Psych InptPT Location Admission Date/Time Visit ID Attending [id number] 10/28/20 1613 --- Eric Michel DO([id number]) EPI ID CSN Admitting Provider [id number] Eric Michel DO([id number])Date: 10/29/2020Name: Jose L WalkergMRN: [id number]: 1970Admit Date: 10/28/2020ttending Provider: Eric Michel DOPrimary Care Physician: No primary care [...] Social Gatherings with Friends and Family: Attends Buddhism Services: Active Member of Clubs or Organizations: [...] rce(s) Supporting Document(s) ID Date Data Source [id number] 10/28/2020 09:43:00 PM EDT [facility] Name Value Range Interpretation Code Description Data Fabiola rce(s) Supporting Document(s) GLUCOSE,METER 65-100 Above high normal [facility] Date Data Source [id number] 10/28/2020 05:57:00 PM EDT [facility] Name Value Range Interpretation Code Description Data Fabiola rce(s) Supporting Document(s) GLUCOSE,METER 65-100 Above high normal [facility] ID Date Data Source [id number] 10/28/2020 05:32:23 PM EDT [facility] PATIENT INFORMATIONPatient MRN Name Date of [id number] Jose L Lam 1970 50 y.o. Weight Gender PT Class 63.5 kg M CPEPPT Location Admission Date/Time Visit ID Attending [id number] 10/28/20 1613 --- Eric Michel DO([id number]) EPI ID CSN Admitting Provider [id number] ---[facility] DEPTHistoryChief ComplaintPatient presents with Psychiatric EvaluationPatient is a 50-year-old male with a past medical history of schizophrenia andsubstance abuse who presented to [facility] with paranoia, callingthe police roughly 6 [...] medical records.Records summary: Reviewed his records from [facility] COVID-19 wasnegative, the rest of his labs other than his tox screen being positive foramphetamines and cocaine was negativeED course details: Patient is afebrile, nontoxic-appearing and hemodynamicallystable. Patient presents as a transfer from [facility] where hewas seen for an acute [...] rce(s) Supporting Document(s) ID Date Data Source [id number] 10/27/2020 11:29:00 PM EDT [facility] Name Value Range Interpretation Code Description Data Fabiola rce(s) Supporting Document(s) SARS coronavirus 2 RNA [Presence] in Res piratory specimen by WILEY with probe detection NEGATIVE [facility] This lab was ordered by [facility] a nd reported by [facility]. ID Date Data Source [id number] 10/01/2020 01:21:00 PM EDT [facility] Name Value Range Interpretation Code Description Data Fabiola rce(s) Supporting Document(s) SARS coronavirus 2 RNA [Presence] in Res piratory specimen by WILEY with probe detection NEGATIVE [facility] This lab was ordered by [facility] a nd reported by [facility]. ID Date Data Source [id number] 09/06/2020 01:55:[address] [facility] Name Value Range Interpretation Code Description Data Fbaiola rce(s) Supporting Document(s) Progress Notes [facility] TYYAWq3gUhXKEaVp99/NJWvjZMStz7XyUFeaFMo5SAghILSwG5UaSXR3eS9zEGW1HRlTFtOxPdVeDjNu [facility] [file] L2AQS4nZKbLx7RVeK1RYyVSiCkZF7CMOa= ID Date Data Source [id number] 09/06/2020 11:39:[address] [facility] Name Value Range Interpretation Code Description Data Fabiola rce(s) Supporting Document(s) Glucose, Fingerstick 287 mg/dl 70-[address] [facility] The above 1 analytes were performed by [facility] [address],[facility]#: [id number],[place] [address] ID Date Data Source [id number] 09/06/2020 11:33:[address] [facility] Name Value Range Interpretation Code Description Data Fabiola rce(s) Supporting Document(s) Discharge Summary [facility] DSYOXz1qLmVERiBl97/RZBuwDYLcn7HbLNppEVc7OOngKPCaB5IaVUN4dM5zPHA8UYdPZeLwTfFkAaRg lbm [file] ICAgICAgICAgICAgICAgICAgICAgICAgICAgICAgIC FfYSFfMWRtEYSnBKUjPMOhZBIoJHWkUJWxXOLoTDQzNHXiUKEqLTBtCOOkGOAnWOLmJXQvOSHdUC9ADM AgICAgICAgICAgICAgICAgICAgICAgICAgICAgICAgICAgICAgICAgICAgICAgICAgICAgICAgICAgIC AgICAgICAgICAgICAgICAgICAgICAgICAgICAgICAg HATzDEQsFZ0DYDBwSEIpUOOqZKFsAVVvTHMnRAIwFRAaVXWiMUMdKXEsJXAnLTDwHUKdIDKbIOGfGIRo VKZvASYuSXDjRHDcXGDgQGJfXKGpEUImNZRxABAhYHBwMIPuAKRjFXNmFOGsDIWrZA6PTVUiFKKhTEDy ICAgICAgICAgICAgICAgICAgICAgICAgICAgICAgIC AgICAgICAgICAgICAgICAgICAgICAgICAgICAgICAgICAgICAgICAgICAgICAgICAgICAgICAgICAgIA 0KICAgICAgICAgICAgICAgICAgICAgICAgICAgICAgICAgICAgICAgICAgICAgICAgICAgICAgICAgIC AgICAgICAgICAgICAgICAgICAgICAgICAgICAgICAg JMWuAZSrZBGnEV9HZKVfYWOlFLInJQHtMFEcBTYzGMErVXDiTSGlUCHqIJIyNBGpIHQbSGUoDEGbTIDb EKXaJPFeESIsWZGdUTJcJIFoHTHxLAErWLEsXKPeGDLhWXVtUVEfXCKvWKMeWOFjZWIhCI5HBJEfEQCw ICAgICAgICAgICAgICAgICAgICAgICAgICAgICAgIC AgICAgICAgICAgICAgICAgICAgICAgICAgICAgICAgICAgICAgICAgICAgICAgICAgICAgICAgICAgIC ZaJR4FWQSwSZIcIZZbZWPdKPSoHKOyYCYaEWXpNJNkAEMbCMSqMHYlFUXvQGGbTHApBEPvTDTfFGJoPS AgICAgICAgICAgICAgICAgICAgICAgICAgICAgICAg WLJdRKFpGYBhGIXmWU4QCEXqVUSqIPJvCJJpGYPuIVBwRHDaCKHlGGQiOVCoTGDvNMZiNQAwYILkWYLt BWNxSDOpXUUyTJAjJJRzIWYvNYAvJKMdCDYbKMJjPPYuQRDbJGDpNGAxLJCnYHSrSYFyNGShMN3QRG30 dSCqu7O1KIZtZC1mcsx/Eg8VINwdrxSsgIXlXD8OMa UdGD4qjc4RKgYwED3fkq6FBNaTGkFlY9L3nBOfFFPeWMZKCwWfF22oXAlmQk45MKtgOBUtUaQcHPr6Cz 7GRrXtZ3yoMKNrXwY3FFNlAqJ1WJQvToGdHGfmMG8Is0ZbyYNmTEg+Qh5EQQ8uj0QeFJzwDuIwPG0oth 7TPWgQWoGzD9GepjI3NZAvRNFrEf2DGULtYDXgyVQn RvKbKIHBZhXwD2TvoB88KCDFIh0+CBzaivFeCwjINxSlAUOfu7YuAFw9PE5ENRVvJWr3rHYmFQlmO0dt xalxCGL1uF2jrmttMevlG1VqaXHnBGuby7Pxe5LuzAFjUVndUGBwAYCqHm4lSM1qGAZkMJAhNbHwGJKW XS8KMKEjOBBvjVQdACExXVRLDA6JXJpbIPM3Tiylar PzuDWyNPmsQQ9WLMCexkIdVlIlIWCCFSi+Xj0KIS3da7DlHJbjRYPsXS8viq0LNZaWVzExJ6V6oPKvL7 O8PFyuMy6WUVGrZUYdQhDpQYVTMYeyON0ZZQ4hrtZ5JF6HiXAoKYTtJZDogQEtZZy9F25dvWCjFXbaEL 0KICA+Anais+Jh9BSMTkDZCfCIHkUiYgGOTYOpCbS9Sa U3TDc1ElK0YsIO94zKksqfOsPSknZA6YZK2aGQKqIMSWCC8PkJRflC3zzzMqUuTmMXCSSmTfF69lfRRl AXGxFNHuPHPbEk8WKWZqC6PbxuMhpMzjemWlXQLeLDGIRV3HIAuuenFzcOQgjPriSE12eAjfJV0UGp1J FvToMY1qft9SlCFiEs5DOKMqYC4BBIHzGBCgICEmGB N0DVEeSsQhBZlzRFRoFKRbXFC6AXNlSRRvPA9MVsWgDIJgKSAeYPjnDYXqVRYdxz3PXOYgPVMfUAl4Qi XrGTEpGTIxEBklOWReERMpLFK9QTYkQIDmMR2OXgWjZDDjMMPcXSXmONZzBIVigi0OXCLzJNClWjJ1EE RpYUAwDSDuSOtnVZObYHJ2OgC6XUHxIUMdGA3QGfZq DNBuFRJ5HHFgGNAqOWGbih6HLYUmRONlTMr6IGWcGCWyUTCqBZvgYTYpTQB8YBL3WYRcLBVzFS7WRyPl KURnIIGwUFGkQVMwBGWvxf7VRPDgLJGeOfOaFRRyGMYsXGMaVUzzWIZtSDR9IbRrIIQeCUCePB5DYaZc YXCpPYu2RGNhPTJnMNEwlr4NFPSqIJCrHWY3FBBwAD HaLVSwBKlcJUScFXR7IyVeBFRqTROiZI7WFoAfLRPtRMs8YEKtYLPfCDNgir5ISNKkNOFcITjcNAUiHO XsVPYaYWtmRQVbHHBwBBRrKOAlQRQjME7AIsEkWOZxKMEzWAZzEGKzGDPuci9VDGVpAQZyONAtKoTsOZ YyCGCnXSmmXMTiZJYpSJwcAXIrMQKdOZ2FEkFbXKAo BXRsIRKoRIUgIPLglm3PYZOqRZNbQpTnDFVrBHBcOINnVJn7wrClrRSmJUr9BH3FM2FzwgBjCbRINv6C h001FUP1VQPfSu1WX9kkMb4rIHXtCWDBSl8ABJd7VAObYxt8KVw1S1BkGFLqNIA6OXSaEFv8OVZ3XnXy ZGM+MNstISDiGcx2Iyw0U9X9YlV8FmcgAvU6PYx7PV cjTuGuKo7yJUSJNg4+YPdhdBIlnBpjNWMHEjLrZPLgODcyGAROPe7D ID Date Data Source [id number] 09/06/2020 10:44:[address] [facility] Name Value Range Interpretation Code Description Data Fabiola rce(s) Supporting Document(s) Nursing Note [facility] VLOSLq2qQzALSvBo49/KAGoiNJDci2LuROhhGCh6ZNlbHEXlV5EkRRP9rY8eMPD8XIhSNhSwIqYtJcHr lbm [file] M4Njc+CG0pTGz+Rn2Gt3BnzgU9rhOhMSaeLHk1TM3SGZTJT7IDRw== ID Date Data Source [id number] 09/06/2020 09:42:05 AM [facility] Patient: JOSE L LAM : 9 PACS System: [employer] [facility] Telesphere NetworksProcedure: XR FOOT 1-2 VIEWS BILATERAL Provider: ROYAL [...] rce(s) Supporting Document(s) ID Date Data Source [id number] 09/06/2020 07:57:00 AM [facility] Name Value Range Interpretation Code Description Data Fabiola rce(s) Supporting Document(s) Glucose, Fingerstick 179 mg/dl 70-[address] [facility] The above 1 analytes were performed by [facility] [address],[facility] [id number][facility] [address] ID Date Data Source [id number] 09/06/2020 05:45:55 AM [facility] Name Value Range Interpretation Code Description Data Fabiola rce(s) Supporting Document(s) Nursing Note [facility] RUUBPp5fGjPPVlZk14/AHWfrTHKdp4WpGNvuUVg8FKwsJFZtB1AuKMA3kZ8iYVQ4CYyNAoEdWpEhHpZl lbm [file] J8ShAFSoUgWE6KAPi= ID Date Data Source [id number] 09/06/2020 02:38:48 AM EST [facility] Name Value Range Interpretation Code Description Data Fabiola rce(s) Supporting Document(s) Progress Notes [facility] JXSSZr0xAmENEgHk74/MRWwvJQYmh0EtDPyyWLw2LUzdFNCwZ1MlNKJ5pF9qUTA6RHoTAfXnHlKgUpQt lbm WdMsiZPvEtSEWaHomTTiUwTOduWeqhiWFwZV0YyPC3BJKwZ25uFMNlFLDzM0JeEPTxZNP+Xd5TEJDojF UxQR3DQboP4KdXv5hGTA2B0E+FOsRZ6o8CGW32K2kcNTqiuOe5qUiqDwLlbBYHynp+uPxZXA0w33xi2o YEWQ5pDRM8w01q6F6nmwloP1NoU2cjxg/rm6yHhwbd +pSg1rMCi3/Cc0HJ2HXCFdPUX1EQVT/5roVasC0PRrEagjtor1gl7nRRDGtPE5sRYyWitB9hAHjiHBXp nFmTXfoyhLsBRIKLOfRcSFiw8EQtMN6YE+2i6wNL3qNR2vpNhH6MSCPxaqNpFkBSWhymemVVrVcUWw4A hGsY06DzFP4p1I960T7koVcPMP0iCWF+3R/RhwUsLk NAdQWEjEFv3XczvWOt7wnsBWgVYgdwKrTfN+gMbgys3F+FwRSD9KOIc6PA96VOaI4vz4uFQBOccqo7li pYPZBHqVIrVV0iMZ1bgh6km3fJ6mSTc3RwrhOhHPEs4wBEWK2oCWs4XMeoRGpaxWnzQdlbEyL2r1s0Ad B79aWbIOjExloEgA1y77Oes0t4VUsPnUV6z7N3KPln sVYewo3X+CGSo6wd/D0MrODiUNLUT5/4gzRQFFrbR/JsT1NHDq4HpLOgvpq86rDvlRYeiv9wiVuEoCJR Ql02QY0myzFC2NB/Wf6iwov0poUN0pCrM2ouLu+miX9pwWNVMsB3At56IN/FeWaedMpnzvZ7eylDmCBz zgTGf+debbie/Wwelg/0hgBgMWi0BYrccfvG1vH3n3Nzy [file] QON3HStgZJNGPt7B ID Date Data Source [id number] 09/05/2020 08:22:[address] [facility] Name Value Range Interpretation Code Description Data Fabiola rce(s) Supporting Document(s) Nursing Note [facility] TGTFOh8cKsCUWlCr65/AFLheNNDni2NyJNhwDFl2HOsmPKYnO3HaMBX3oH3jXTA9QUvNJyBbEoUlJxOn lbm [file] 9KWpJ2RAD8xOSmRm5FNgVcYFLXToMoTG0UBAt= ID Date Data Source [id number] 09/05/2020 07:47:[address] [facility] Name Value Range Interpretation Code Description Data Fabiola rce(s) Supporting Document(s) Glucose, Fingerstick 225 mg/dl 70-[address] [facility] The above 1 analytes were performed by [facility] [id number] [place] [address],[facility]#: [id number],[place] [address] ID Date Data Source [id number] 09/05/2020 05:04:[address] [facility] Name Value Range Interpretation Code Description Data Fabiola rce(s) Supporting Document(s) Care Plan [facility] NVQXAl7rUxCBLxIa07/ICNpwFRLnw6QsXFplGYy8PLvoQLAgW4JdJUM3gS8pGOC5ZNdUBhMoYnZnQtFq lbm [file] 6lORRBJf3+DUdpoHDpbKotDVYZRyF2LeIkBHddVVBDIt5T ID Date Data Source [id number] 09/05/2020 04:56:[address] [facility] Name Value Range Interpretation Code Description Data Fabiola rce(s) Supporting Document(s) Glucose, Fingerstick 158 mg/dl 70-[address] [facility] The above 1 analytes were performed by [facility] [id number] [place] [address],[facility] [id number],[place] [address] ID Date Data Source [id number] 09/05/2020 03:08:[address] [facility] Name Value Range Interpretation Code Description Data Fabiola rce(s) Supporting Document(s) Progress Notes [facility] WTJXCj9hAvPENcJi78/XZKtdYSLpp8JmGOkvJPx5OPolIZVlF1BcOVS4dP1qNBG8HJpUMeUaTeZbUbTz lbm [file] TGOpCDEvCTOcVJ9uSJGGZu6+POsvnMPqfHitNOYGBqT5TFtaJNjuAJHHRf5P ID Date Data Source [id number] 09/05/2020 11:32:[address] [facility] Name Value Range Interpretation Code Description Data Fabiola rce(s) Supporting Document(s) Glucose, Fingerstick 419 mg/dl 70-[address] [facility] The above 1 analytes were performed by [facility] [id number] [place] [address]#: [id number],[place] [address] ID Date Data Source [id number] 09/05/2020 10:57:[address] [facility] Name Value Range Interpretation Code Description Data Fabiola rce(s) Supporting Document(s) Progress Notes [facility] IFVNPb9fBtFPQzQd16/KVJxiEAFax1UkYBtkPRw6MKweRFCyM5EfXOC4uC1eOHF5LQiUErJjWqKmVcUa lbm [file] Gb5Rh5GrfhN4cdSbOVj1DOGnAAsbFVFZEo3J ID Date Data Source [id number] 09/05/2020 07:48:[address] [facility] Name Value Range Interpretation Code Description Data Fabiola rce(s) Supporting Document(s) Glucose, Fingerstick 187 mg/dl 70-[address] [facility] The above 1 analytes were performed by [facility] [id number] [place] [address]#: [id number],[place] [address] ID Date Data Source [id number] 09/05/2020 05:28:[address] [facility] Name Value Range Interpretation Code Description Data Fabiola rce(s) Supporting Document(s) Nursing Note [facility] OFMMEw0fPmACGiQa70/ZEGcePKLws9AaZUodYQy7SNnvLQCgR7TtAYW3lP2kCDO6JKbQNuVkTvGzIpUx lbm [file] UBT7MWMp== ID Date Data Source [id number] 09/05/2020 02:00:[address] [facility] Name Value Range Interpretation Code Description Data Fabiola rce(s) Supporting Document(s) Nursing Note [facility] DDDITx2gCfTUSyDf76/EMDmxNYMeg1UgVJgyXRp5UMphQDHkP8KkVUC7hO6xZMT3TIaHKdZeMcRpMkEc lbm [file] ID Date Data Source [id number] 09/05/2020 01:57:[address] [facility] Name Value Range Interpretation Code Description Data Fabiola rce(s) Supporting Document(s) Care Plan [facility] BVQTRu5vLrVWQkKr88/IAChgXMYas8TpIHdiATa9WZtdJPYgS4PqRPX9hN4tDTW1VTgWKzGwHxLdWbHz lbm [file] ICAgICAgICAgICAgICAgICAgICAgICAgICAgICAgICAgICAgICAgICAgICAgICAgICAgICAgICAgICAg OHZwIPPcRFTtMOOnUTLoZYDxALEkFVDsNECnCD5CQRXzXWHuTEDiZEGnWRWiBALyFQPbKAYyMUDlVXAm ICAgICAgICAgICAgICAgICAgICAgICAgICAgICAgIC KfQKUuVUBaLUAhHCQiMIWvIPImSCNoJMKrSXZvJJNqLMPoAMAhYP0CYYCpDLWsVQCnPFZvBWUrTVMmWV AgICAgICAgICAgICAgICAgICAgICAgICAgICAgICAgICAgICAgICAgICAgICAgICAgICAgICAgICAgIC EcLBTxZSBdVRNwAMUvYCOaEGEvLK3PBBIsQHMuLWAj ICAgICAgICAgICAgICAgICAgICAgICAgICAgICAgICAgICAgICAgICAgICAgICAgICAgICAgICAgICAg JQQwZXHzGTUhRSMsESPdNURvIMTnKVVhVLYuJZYuYN2WLATyEGGnNTAvUWZsIDHbNYAkMBReFMGqQAWg ICAgICAgICAgICAgICAgICAgICAgICAgICAgICAgIC QyOSLqGQTqLEIeJCNuMAJwMYGuYYGeLPJmEZYuPPDqAOUmIJYxJRRdAP2KOGIuQFIjJRYsYJGfNPChKT AgICAgICAgICAgICAgICAgICAgICAgICAgICAgICAgICAgICAgICAgICAgICAgICAgICAgICAgICAgIC FdQTExWCCxNIExYTStCZGfVNWeXZFyEG3BLYXkNISo ICAgICAgICAgICAgICAgICAgICAgICAgICAgICAgICAgICAgICAgICAgICAgICAgICAgICAgICAgICAg WKAsYIZaCDMnPCGoDORiUPAbHUNyCYOuLBKqHRAwYTTiJL2EREGoWVOvOMGmBGJjBTUuPKVxJKLwAFHr ICAgICAgICAgICAgICAgICAgICAgICAgICAgICAgIC TeGAMkLWXwZSYgCCEdPTLaNAHlZRHpEAHdJECrBNAvWHHvPVXvKFRnSRErBZ6IESBgPUWwMLPjNOGeZR AgICAgICAgICAgICAgICAgICAgICAgICAgICAgICAgICAgICAgICAgICAgICAgICAgICAgICAgICAgIC ZwSAPlBYPlLHRsJEPlCUNuQURhMWDvDIZvQY8CYTNm ICAgICAgICAgICAgICAgICAgICAgICAgICAgICAgICAgICAgICAgICAgICAgICAgICAgICAgICAgICAg JAPdEWFjZNVuRGFsRIEcTRAsOUWhQMMkQOLkUXDnNPGzNNFpOF7KIC77nJOxe0V7EBYpZB4ybjr/Pg0K YEdttfGmhBZbLN6XHsFjRU9ogi5TSeFwNM0dtw5OWU jFThHlO1O4jQNcQQVsIOAFUzMeR93cKGkeTk68TTffAWFcOvWcSAn2Ys8WQbUrZ0leVGYfHhV5WTKgZm CsUWdlGT0Fn8XewRGjLSu+Up7PDK1sf6PxTKemJwGyRG0ztg8OUEkMTeSsB2XvbsN4FGUuWKIxJl8JZC LaYHFziPGuMbWjLYEFIpHhU9DrwK86LSAYYs3+DQpl tfMyUyuQIvTdOTVkn3YwPIc8VD7WGXWeTCl4zWIhN8MzLXNTnMHpHNY4ZJCfwIioSGDzG0IcSAlxBy7q UNKyCz2rUC1wZYKdDKJkSbA8NQJFZH9XIWTwLHWcwGTmYTEkWMISGA0QHCpvXSZ9HrqnbdNfyTJhQUrz PI7RZNBtexLeSqKaIBCZPDo+Di9PNA1uo1EiFVjqSF IuDS1vja1XKMnDWvTdL7U0aZEvL0X1QLycMt1EOAHbBMGtWiRfLSNIBSinJW9QSE5bhrI9VK7DaCJeKS TtLVPsmWUnMIz9G70pzJItBWiiNF3DNBD+Anais+Xw9IOJPjDECyLZWgPjTcHVOOPsMtI8SgY3RCu5KuQ9 WiWQ92yKtllbOiBGwgKB7ADE3vZHNqAZDBSJ7LiKSa aD9sbwToRwCkPJXRVnSnR74gzZKeBMElWGMsZYPxJm7IYBVtA2WvcoBjdWfnywPrYLTtWERVLZ5HMTiy liHxcGXzuFxnED49fGrgNZ5EFf6SJfSwLG4tve4OnJIzOu5DDAPjSU1FXXDfFPCnZYOgXRS6GQEgNjJn PEghQXKbZKIsMHZ9WUPbYAAqSW3HCfUdPHSnUZi9KU YfDEFpHPLdkk0MFUJjQOBdCLUlNUClYYCxYNUuTZimHRGfGDGgMXL1PBXiNWEcZN4FTqRuDZGmJXN6Lb rjGDHhWPRhko9LTWObHVMcUCU3SRYbPTJoTDZsDBauDICxQRSzRLx7AMUyGKYwAU7IKpCbWSZuQITuLK LiHXDpTHHfjt0YABNkJBAsDoV7LWZkVFCoVSJhBPlx RYPlUFKdNEL7FPOgTLJgXW5KCjFoKDCgUYV8WFIgRDMxEOHuqe9BHDQtPKBpTymwXlIhBHRzHYHtLWry GMJqFFK9VVrkCJGoUPHrYF3VFbYlFWKvVAY2CBrpSRPoVRUbda9VNMNuOQFkHlU2ZuKkUOFhXWYaZInr PQRzQBK4LXC2SCPqPHOjMZ4LArRaUHBmTAdlAXEuGY QqRAQqvf4LXMWeYUBsFHBzXXXnKIKvHFUnWWrdSSCmDEO3BvEjRZReYQQmMA6XDpLiDXQeZPrwPIFsGR QaZYCope1CZEOyLVEoJLi0VAZjNUGgUGXtDQcxEVGkUGHjIgQ2UGZsAGTgCZ8PRiKwSBGdOrHdPKlwFX SuAEQqlz6EHACxLSOdLYK1COYuPIMsALInVOb7kpIj nKMyTSo0OT1TX8SvjzVlDzJUCv3Nv563MNM2FBJjQv4HG2xkEb2wBXXlQZMPRb2ZNJt1EBUcTdO9UHHz Q7AeBPXjXKZkLCL7CYe0UBLlWiK8PHC+OQs8FgGbQVd4HQK3XqJhMNByDGZ3OEznFTr7NQPiLUQkGC4h XSANCj4+VLjemJUuaLugXZRQItTcHzz9OIckGBFRAm6I ID Date Data Source [id number] 09/04/2020 07:54:[address] [facility] Name Value Range Interpretation Code Description Data Fabiola rce(s) Supporting Document(s) Glucose, Fingerstick 277 mg/dl 70-[address] [facility] The above 1 analytes were performed by [facility] [id number] [place] [address],[facility]#: [id number],[place] [address] ID Date Data Source [id number] 09/04/2020 06:17:[address] [facility] Name Value Range Interpretation Code Description Data Fabiola rce(s) Supporting Document(s) Nursing Note [facility] JUPNNa1yAhCLDjKq05/QZMhjLFOdp1XfCWnhBMo4LXkyPPNbI0WpZKJ1rF8oZCZ2CKrKYhGxNoYeDfT9 lbm [file] ICAgICAgICAgICAgICAgICAgICAgICAgICAgICAgICAgICAgICAgICAgICAgICAgICAgICAgDQogICAg ICAgICAgICAgICAgICAgICAgICAgICAgICAgICAgIC AgICAgICAgICAgICAgICAgICAgICAgICAgICAgICAgICAgICAgICAgICAgICAgICAgICAgICAgICAgIC AgICAgDQogICAgICAgICAgICAgICAgICAgICAgICAgICAgICAgICAgICAgICAgICAgICAgICAgICAgIC AgICAgICAgICAgICAgICAgICAgICAgICAgICAgICAg ICAgICAgICAgICAgICAgDQogICAgICAgICAgICAgICAgICAgICAgICAgICAgICAgICAgICAgICAgICAg ICAgICAgICAgICAgICAgICAgICAgICAgICAgICAgICAgICAgICAgICAgICAgICAgICAgICAgICAgDQog ICAgICAgICAgICAgICAgICAgICAgICAgICAgICAgIC AgICAgICAgICAgICAgICAgICAgICAgICAgICAgICAgICAgICAgICAgICAgICAgICAgICAgICAgICAgIC AgICAgICAgDQogICAgICAgICAgICAgICAgICAgICAgICAgICAgICAgICAgICAgICAgICAgICAgICAgIC AgICAgICAgICAgICAgICAgICAgICAgICAgICAgICAg ICAgICAgICAgICAgICAgICAgDQogICAgICAgICAgICAgICAgICAgICAgICAgICAgICAgICAgICAgICAg ICAgICAgICAgICAgICAgICAgICAgICAgICAgICAgICAgICAgICAgICAgICAgICAgICAgICAgICAgICAg DQogICAgICAgICAgICAgICAgICAgICAgICAgICAgIC AgICAgICAgICAgICAgICAgICAgICAgICAgICAgICAgICAgICAgICAgICAgICAgICAgICAgICAgICAgIC AgICAgICAgICAgDQogICAgICAgICAgICAgICAgICAgICAgICAgICAgICAgICAgICAgICAgICAgICAgIC AgICAgICAgICAgICAgICAgICAgICAgICAgICAgICAg ICAgICAgICAgICAgICAgICAgICAgDQogICAgICAgICAgICAgICAgICAgICAgICAgICAgICAgICAgICAg ICAgICAgICAgICAgICAgICAgICAgICAgICAgICAgICAgICAgICAgICAgICAgICAgICAgICAgICAgICAg XPHgKIh8X4fpYVCtSTYlFL3lOUu1Nd5+DQoNCmVuZH G5zoLcpB6DHJ3aj2LxNTkoFTJjj8RdHBr0CZ1NCSRlVCdnND4AWTlhsv2GMJUtUNBknBLKt0naPhWuAP L7KPXlDjgxMP7NCJOgG0ujfxUjMYXxSRDZUU3FRzDaA8MxhP96WLOAVa2+DQplbmRvYmoNCjIyIDAgb2 YoSOd7VG9ZMGUaFhucu8FqKuIpSWJAIPwjDT4RJKQ7 AVTuRIDgBc4DFKAqD766bpEwZB7XXu3GArQnKI0ayj3EJkUxPSGxQpuTZaw7HDamLY3WoGYkUMtWiSAu cU3vYU2xbCJsRvbsBv5gfBTlJP8bk2owWGLGZCH9XMBaTL1hGIPgMPL5GhQ8MDCFIT9PZOMsGZIjrJHn EIGzIDMGBM2HJCkpANL0ZjlmgaXsyJPxNNgyHM3PVE JlbnQgMjIgMCBSDQo+Wb2FCT8uh0SeGNvePJUqRC3pjl2VCLbLFyJpE4N3tNFkX2E5TBvwVl2OGGNjSN XjCvJdQBTCBUljKG8HIE2otcM1VL6FcCFkDFHrQWPbjEOoGIl4F32ngGDyEMlgYF5KKZR+Anais+Pg0KIC QgMWQzOTMpYmCyGBTDJuAyZ9YxL0YDf1KxR0OxMD12 kSwgmjVwXCmxGU4TKV6zVKCpVZBBOM6WaCSpqV3ejaBsWiJoVUPXTkUzT98qnZWrSWQnZYPaRAOoDn1U YTPmG5FmrxFdiZfetyTcCXCcKZJMEF2DKVsdixKlnNQthOsfBS29fKceAN8FEg8AHwQxCA0wwd4BxGJz Yb7JPCFwUX3YIGUkVJGlCBMfTSD2UQJaUpWwUUbrIQ XkHTKeTQV8VVGlDLZuRE7LSrMuNSEkPSv1IyIrVAMnPMBvdd1TDTZyXZYfCHM7INXxQBKjAXQlSDbsWW OkLBLlIGW8TOLiJLCkKW2VNyAyDSNwWFQ7RsGdJBBvFDNlcw0NKHVoETUiTMS1WlQjFHUnWFLaSCnyDX PoBDUzSSV3HDHxANXcQS3VMkRxOTBuVVAyVpVsUIGv SEWnjk1RAFTwJEFyPjSxQMYyJIZjHBKfCYqhFCEmIOYmOYagTEFkNGZlMM2IQdVcYIEuJKK6JiyzCPYd ZGDfie9CWZKtKKOgJkl2HUQtKVPoLAMhAEkzPBErIKS7UNe0YDKnEVTpKE2LJlPySATaOSU3MIUmZJCb HSPueb5AGNKyKOVgYwctYvUjMMPbAAVuLLgbQHJlIL Q2XODaJAXvSPEiON5KQnSuNAXrVZyrPUfbBJHfAAKfbv2TOGPjUWTbDUA1AMAfLBEmGHZsCRepVWTkZR G6YqH2OLEjOIXdYK0WOyCkWQJdGFj9OCfhZVVrBFKijq3UOTCkLMEyHLjwBALkJRBaDQSxDTybWIAvXK PrTrYnYODzFGVuXU6WLzLvOVJiOkXpLsXxUAKbHBTw ol2NYSKdJEFbFWX9NzNvLJBwPUUdTBj9ovZzpJIkBRn7IY6AG4YimxOuOwFCOs6Vb395FQS6CQFdSt4H E6xaGa7jLEUdSTRTIx7WBOx1EyijDtZ7HcP5MEBgUjGuRVTwEaZvNhPfOUS0QTM3BUL+IDxjOWMyZTcy HjX0LVNiTrY6LJQ2EJDjAhU2AssiIvg5SC9fJBGVLq0+IEhsuLBuxTtkLNQXCoSgUtLsNYuoHZLDRm7J ID Date Data Source [id number] 09/04/2020 04:52:[address] [facility] Name Value Range Interpretation Code Description Data Fabiola rce(s) Supporting Document(s) Glucose, Fingerstick 133 mg/dl 70-[address] [facility] The above 1 analytes were performed by [id number] [place] [address]#: [id number],[place] [id number] ID Date Data Source [id number] 09/04/2020 03:10:[address] [facility] Name Value Range Interpretation Code Description Data Fabiola rce(s) Supporting Document(s) Care Plan [facility] CKXKLk8qYfAAHwUs54/SEIqyKQQnu7VgWPegEBe6OFglPINaG9ZbKRE3lW1xLZA2MSvCFmKxNaXsQsE9 lbm [file] E+DQogICAgICAgICAgICAgICAgICAgICAgICAgICAgICAgICAgICAgICAgICAgICAgICAgICAgICAgIC AgICAgICAgICAgICAgICAgICAgICAgICAgICAgICAgICAgICAgICAgICAgDQogICAgICAgICAgICAgIC AgICAgICAgICAgICAgICAgICAgICAgICAgICAgICAg ICAgICAgICAgICAgICAgICAgICAgICAgICAgICAgICAgICAgICAgICAgICAgICAgICAgICAgDQogICAg ICAgICAgICAgICAgICAgICAgICAgICAgICAgICAgICAgICAgICAgICAgICAgICAgICAgICAgICAgICAg ICAgICAgICAgICAgICAgICAgICAgICAgICAgICAgIC AgICAgDQogICAgICAgICAgICAgICAgICAgICAgICAgICAgICAgICAgICAgICAgICAgICAgICAgICAgIC AgICAgICAgICAgICAgICAgICAgICAgICAgICAgICAgICAgICAgICAgICAgICAgDQogICAgICAgICAgIC AgICAgICAgICAgICAgICAgICAgICAgICAgICAgICAg ICAgICAgICAgICAgICAgICAgICAgICAgICAgICAgICAgICAgICAgICAgICAgICAgICAgICAgICAgDQog ICAgICAgICAgICAgICAgICAgICAgICAgICAgICAgICAgICAgICAgICAgICAgICAgICAgICAgICAgICAg ICAgICAgICAgICAgICAgICAgICAgICAgICAgICAgIC AgICAgICAgDQogICAgICAgICAgICAgICAgICAgICAgICAgICAgICAgICAgICAgICAgICAgICAgICAgIC AgICAgICAgICAgICAgICAgICAgICAgICAgICAgICAgICAgICAgICAgICAgICAgICAgDQogICAgICAgIC AgICAgICAgICAgICAgICAgICAgICAgICAgICAgICAg ICAgICAgICAgICAgICAgICAgICAgICAgICAgICAgICAgICAgICAgICAgICAgICAgICAgICAgICAgICAg DQogICAgICAgICAgICAgICAgICAgICAgICAgICAgICAgICAgICAgICAgICAgICAgICAgICAgICAgICAg ICAgICAgICAgICAgICAgICAgICAgICAgICAgICAgIC AgICAgICAgICAgDQogICAgICAgICAgICAgICAgICAgICAgICAgICAgICAgICAgICAgICAgICAgICAgIC UcESFsWMMhFINuUUUgWTWxBTWkVUGfJQOpPGKxOHPzUAZgBNBaDCGlHHNiNIUxEWNhFWIkJKf2G8dgLR SjRGVaQN6mEUz5Ch5+YZdPWcXxYBL0ndVazN6KPE9n h2AzSWifYOLvd0XaILi8YD1NHQEwUHdlPA3EOVnzek5EOAEoSLKqyINSq4hhUuSaDOI8RPSjIukwVU8K ZVHbP7qhrvBoLAUmSPBYYE1AYnRgK5QkrB03JVFNCo0+EHdikjUkDmfTLgOoPBVrr9NdNNx2WW0SFDHu Ietxl3IkMuAgOHJPIWgbTA3YKQJ1VQKrKKQbCf3TAX JvR824zqCdZA8ARc1ZXpPkJS4zfi2TToIuKCDjZhtWFwl2KSoxCC5FqOYyCSyGWEEdHLJkZS2rVyxmJe 3nmCXuXY1vu5hlSVXLTFP8DJUmLZ4cJOTrGJZkYkC8UWBCNU7ZVYEzHBCdaFLwFJXzIVZWPH6ZCDogFX C5SsgdwuQrrRZsBMkoNV3XDEZjhnTyUvWzEGELABf+ Yo4KDO5wb1NwTQvmLMCoKA5cjx6PYRnBGySfU9I4hXOeY0O0QLniZz9DQZTqTYGzEoFxRWXKZPzoGV9P BL8yvkP1ET9DsBVjWYFcTNUdxDWmJZc0L59adAHgQXmoLF2RJOL+Anais+Nx3CCUExBXPnBNBqDtDqPYXO ZdUbM7VwL7MXo9YjX3SnVM49pNgvsyEtGDxfET4HSY 9nBRJqVQJPKS0VdRBcpA0zdySrYdUjOPXVCyFyO95vpHZbVYEyFAKhLTRuFc6BIXQpF9SxfvTljYwgoi FmRBLgWBFPTG0POOskwrCszRGhjNqmSM70fSpzBJ1IZn0JGyQmSK6yht1MdHGrYn2IGNEbJK6JKJNjIO JuXRUeOVG0JUIlAlOtPHrzJXOcCEQiPHX4EOZrGDKi LN0REbLkRNAiCRurFdekKSTfXLUafc3OSHFgIBQqGHspUiMlWHDsLBOyHDofPRNrEEGaYXT3MFGwWVBh OO9YPhQxVXUpCBM6MOLtKAYiXACwai4VMZVwTPFrHXmvUTGhPNSzXKDcOUmzWOGqWZEsFWpcXWWxGMJc KA9OUcJcRCDgVUVgAcKmJOOaAIJchn2ISDQmOVScZw Z3MAOmMHMeUKStTCbzTVMhVSX9CnG5ATVhGOJlDH3BNsJaMWCmQWH5DBPxHMItPQVsdy0EBWWnJINxQH R8KkKtIUWnOOLtBBdxQLDpESL5FZB4JJKcRMSjLM0FPiKrZKObBTuaKpJlALIxTOAvah0PAHLrOOFtYm I3ISOmWWOuDPMrMLgtMCIxBIC8PkLdWOEoRPAjDJ5X YyVaKKHqRVq3RYQhSMKoVQGrut2TWCApSBLcPVo9PGWbICNzMQLeOZrjGNLhJIQ0JTxgEKRaXZWhUZ9Y FiJjLBUiLLowBCSwOYJbNDOczl7KPEZjXIKyBBQ5GuFzESDwMPQlAQnqGYYfEEArXUBuQVLgAJVcVM3J JfIoTEUdOgLwLOEzIAIyEZFssu7UITEfNVOeSUSuLY TbHLYsDMAuPSp9ixZimWWsGMw8IX0PA1SvthGeLyEKKm9Mq841IDO5PRFxQq0IE8iaZg6wZPLsVDLOZc 1HMMm2WRJcVTHeGFE2H9K5LPVcOjlfSSS2VTBoDhOaAgT6UZP+CIv5GRF6JPJ5UXx1EzmxBNTpIJCeMy J9DxJwJTTmFGj6Pk4rJZNMSu2+OCotrFHwnJzgJLCZXnQoSFO9QVvuBDCPVj5R ID Date Data Source [id number] 09/04/2020 01:19:12 PM EST [facility] Name Value Range Interpretation Code Description Data Fabiola rce(s) Supporting Document(s) Progress Notes [facility] EQHVId8eZaOXOcCj61/WYNmgZZZpr2DmBQcsJGk1MHhkMLVvZ6VsQBG5cX1dWMZ1HGoRIcTtIpIsAqI0 lbm SqVnsDWiNnCDVnUrhLEbVkSBolPvhnwQWeFO1UxKU5GCYgF00eBBVqXSIlA9NgPYD1HHT+Nx5IGFFkgS ZfOR7DDadF6Tmma9j64YkW/tvqgYEGyeg5tWkdbaLBp0jyKRmQyvs79SAKzhmt9x7RM0yArG4Tr4XTvI iwcgFc1cJ2d2FCC/QJ4Tr7CcpCEZdV7+9ncqBSSilx /9d/KsPJ+Zz8/fpuhgq1fhl4D5uRJgEMI5L2JQ4Z8Z5UR0KskrKJeEv8MHyKwZjqCrBiEg47IYOltPvG +LGsAN4f0HNPVo5L2P8eKo7uaPE6En2q2RPFR7epEVb54lY4Oa+cVZWqGoxSBuq9Pw2sGf7c1CHWdT3C VRYDpLPLKKJVuhX6yPtPAVJyDOFEUYREdNpQUydcGL [file] BtVHX4wRSqBwlSRTipJj1uS2IEvhewmZfqL1Cl8/[place] [file] AgICAgICAgICAgICAgICAgICAgICAgICAgICAgICAgICAgICAgICAgICAgICAgICAgICAgICAgICAgIC FiZYEiUEErEGOzIG9DUFDxOFLpXNBfAVSsJZOtDEPfRMOmBLFhOLYrGSBnMCHtIJRtLWBjQMIhHYKrMX AgICAgICAgICAgICAgICAgICAgICAgICAgICAgICAg XFBcRLLsTWOlDULgEOFaNAEoOFVwSP0ADUVuNIRvHIAzPRDcGAAgPTBnAGSiMCSbOSDnRPWkBHIlONZs ICAgICAgICAgICAgICAgICAgICAgICAgICAgICAgICAgICAgICAgICAgICAgICAgICAgICAgICAgICAg YJDcGL0MAGQuEUWbXOVgCPCkORZuOPFgEVWdIKKhZF AgICAgICAgICAgICAgICAgICAgICAgICAgICAgICAgICAgICAgICAgICAgICAgICAgICAgICAgICAgIC MvUBVsZMGwEQOsBJMaKU3PAAQjVGHaPFLyKCRnDCKwSFNlSWLxXMKwMYDdYFCnHKDyCBWnGHYrETOfPB AgICAgICAgICAgICAgICAgICAgICAgICAgICAgICAg MRVpSQScAIDaDMWoURXnILYiIFJrKTNaLD5TDSTiUWCqNPFlTZFeNWSpTISrQVErANCxVNCiVUKrTUGv ICAgICAgICAgICAgICAgICAgICAgICAgICAgICAgICAgICAgICAgICAgICAgICAgICAgICAgICAgICAg JHBdYNFoLA6AHZSeEBMsNBJcXOHaGGJrUWFpRQDzQJ AgICAgICAgICAgICAgICAgICAgICAgICAgICAgICAgICAgICAgICAgICAgICAgICAgICAgICAgICAgIC SwGNZeWXXmKXKjPQPdPFMdQF9HXHQdEIOdQHTlMIOuEASwOHRdOARgNWRyDQQfDXGlDRTnHIMpKWNuYD AgICAgICAgICAgICAgICAgICAgICAgICAgICAgICAg GTOlQCRoIDPrZCQsCQRqZAGfTULcWHEdWSLhJO4PMBNoHBQiOLLwLZHsZMXcXFFtRTGrAOPnSCJhODDf ICAgICAgICAgICAgICAgICAgICAgICAgICAgICAgICAgICAgICAgICAgICAgICAgICAgICAgICAgICAg BSXdIMFxICAhLL0BICZySKYfAJIiTABeCKIsDMIbFZ AgICAgICAgICAgICAgICAgICAgICAgICAgICAgICAgICAgICAgICAgICAgICAgICAgICAgICAgICAgIC NbFEJmNLIoFQMrDWKyRFYaCTVcYE8GJT62gGKzt6Z5SLGvLQ4dfim/Rx7IFZswleOwyTRaSI7VAdFlGO 5qke7HXvLaKW0bug0AENxHCmYfS7N4nLBkRWDlFCSL ZfHcW34oJPpmJn91FSicVLDyXvAtALw2Pd7LPeQbU0yaUKHdQwE7MOEaSwM3OJHdDrW4JJKtDoCgNCGi SHGoVY4KGFNlP206kuSjMN7BYe7CMzXqQP4nyp1XYMooIZTdBjqQJbo1DBchXN9EsUJnuIM5VRHcIUHR MwWoC0fls1OzRJixRWEFWZqcTS0Ay4UpkKHlLXs+Pg 9DCG0mc2GuUPj2EALyVS6gfg5KYRjCUvNgE8RrzRyeVNKyc5igFATnTB1lcDMjWKZ8MTuiCEUbGQNfP1 8yiHsjnebcXsQdHQClFw32SyEbNzOyYIG6ENlpPF2qXZmyPO0ADDV3OEvmKVSiISWzQ1gHUaXrNYoyGX KjrCryKT7CBjPzW5PdnzLmaIA4DhNsJKFETt1+DQpl zrYnBgaZEzW3EDVuw7EfGGf7UH5MFQEdATbrYX9MHHDqpW4sLBsoKD0TMeD2KZOvGATWEyNrL55okCAe UTl3N9UoHkPgSBVqXrqkSWBqFAccBtDbVHKnVbLdJTkpPC5+ID4+LYidFO0WNZohifVzMEOnUe2JKDVn SOMwNP6xEULiSFKmN0D3kUlbCQKWItEaL5utxswnVT 5iVDVfG684cQczxfBcNQG4XBGvVl2GIHQpJUC4AILhlKYwYFZyABTEPXfcJM2MnUFxTHF3aH2wRPdxIX AyBTNkJ9xUNcRpbLxhBE54nDwzlkRvcKHqSJb+Yh5DZV5ro0RgPLh5wqLsMQwiZVIjZTzfCTKbTZCaGK GmKMK1ZFP9HXIRUzBaWPBlUYMoVChcXABaURZqgs2E HFTxFMO1UWx8ITIjVDIjEWHlFGrnINQhFZIzNfx6AVLiSVHjUN3TKpZlVUDqXWSrMUqbCPVoUSGznz9B NYTfUYTxCeY7DiQrKUHkSKReQCggVMDaBOAaYiP3VLAbVTRwHQ2JLsMoLJGkAIUsHKOgZHLqTDZiva0J WEGyNZXfDDU0KlCmAWWyKHOpFLtzSAAyILV6POEnQX VmVKFxWL5MHhLsYJQpDPinFkroDULwCNAgir2GGIKdLEAeDMH7KKOkWFYuFAEuDTaxBQOpCQM5VvG4UV HlIPZrJD3RVgSjUEVqGQH7MsMeXGNrCPJibh8CRCCaSTWgBDcaNYZtFFVbQPLnCEcyUHLyRGOcUWY2NK DdMHTjMU4SMnXqEONzDRQ1LyWcPOLyZWUkqv6WQRPv FIGiCiU8FbScQOFuVBQrAZymKRFoEZAlHvL1HMPmPDRaWU6JDqRwUUAfPaZ7GUMeHFFoRHNzju4PKWVv HHIhOWLxYHTmSWDzNRTsRPnzJANvOFE8ZvAtKYHfVWEkRK8QXvBiJZSwSpL8SyRsMNOpDVKvjq7CZBZz FUEiFEDiZrUhQAWnGEQkDApgFPHjPRE2BPG9QNSqGM SpUS8EZbXqJONrStL1VNEmRBNqUSDayt4QEKRdECHrMonbDUMfCZWxVUAaDTapECJpLPS5BVddRFNtCH ZyQS2NJxCjXTKxPfgbDCCpTOQtUKXsmg3DUXYnXZTkKSBkJFKpIEOdGKYyGMjqKJJgJOA0FSnaHCSoVI BlOR3VKjWiEQPkVxbjAFGtOSVkLNPlbz0XEMWnQRGu LIUvSJHfTXYfRCMuTBliZIOoRLIdTYG6UVEgHPLaEO5YWzXrZBZmOEFxImqnDWCpCFJhel8KGYXuMDD8 JzS8PpSxCDQgJQFdBFovSWLrUAQcLfDyEATzHWMiDP2KOdQgEBYkAWR1BqDjUWCiKFKgbe7ULBMzJNE1 SABdUnGwMCFdEDCwQKhtRENdKBV7FQT6QVAiLLTgJO 8RTuOxDLNrAWhhVLsfMGTgXDArqb4WVJInOBG9INB3WgNmXYVoIFJnRNxkHTOmMGA5GFP5HSDkSGVeFE 1ONeGhGCKhOCS5YLKnLEVhVMArww4SMLGrJOQ6KLH1QUFjILFsHPNmPXctVVPxNBCmTAQ8GCLwMIWnMT 7MSsDhHEWfKQXbVGLvDZDmCXLmub6UQZCqKLG9Mwed DgExTMYgMGVoIElgGNZuPKQtJFueWSGfVCKzSR3SHkAzZUMpLQQkDmZmLQDbQWModc0BeHVjfLecaw1B KAhCVi4IqPwoGOYgNNciLk8tcVK0XREjTCKRZf8NafRrOUMmBZASJGdsKLSfBEXaTDSsIGJ3EHg5I2Sn N3FdCNiyUZOhNOC6HWEnRDZvNiB2VVKpKSDiIPL3OD KpFJYgCPG5NOS7FPMlYKZqPuF8FxX+ZF2tRLd+Mj2Xm4QojfO2aaQwFZr9HlM5If2BMWPDH7WVVa== ID Date Data Source [id number] 09/04/2020 11:39:[address] [facility] Name Value Range Interpretation Code Description Data Fabiola rce(s) Supporting Document(s) Glucose, Fingerstick 267 mg/dl 70-[address] [facility] The above 1 analytes were performed by [facility] [id number] [facility]#: [id number],[place] [address] ID Date Data Source [id number] 09/04/2020 10:50:[address] [facility] Name Value Range Interpretation Code Description Data Fabiola rce(s) Supporting Document(s) Progress Notes [facility] FMFXRc2qCwBILgQi69/SROqaFYUpg2RwTGdpWQd2GCmiUDMiY5OzSPI6cX4bEAH7KVzMNpOkNaTnVmZ6 lbm [file] AgICAgICAgICAgICAgICAgICAgICAgICAgICAgICAgICAgICAgICAgICAgICAgICAgICANCiAgICAgIC AgICAgICAgICAgICAgICAgICAgICAgICAgICAgICAg ICAgICAgICAgICAgICAgICAgICAgICAgICAgICAgICAgICAgICAgICAgICAgICAgICAgICAgICAgICAg ICANCiAgICAgICAgICAgICAgICAgICAgICAgICAgICAgICAgICAgICAgICAgICAgICAgICAgICAgICAg ICAgICAgICAgICAgICAgICAgICAgICAgICAgICAgIC AgICAgICAgICAgICANCiAgICAgICAgICAgICAgICAgICAgICAgICAgICAgICAgICAgICAgICAgICAgIC AgICAgICAgICAgICAgICAgICAgICAgICAgICAgICAgICAgICAgICAgICAgICAgICAgICAgICANCiAgIC AgICAgICAgICAgICAgICAgICAgICAgICAgICAgICAg ICAgICAgICAgICAgICAgICAgICAgICAgICAgICAgICAgICAgICAgICAgICAgICAgICAgICAgICAgICAg ICAgICANCiAgICAgICAgICAgICAgICAgICAgICAgICAgICAgICAgICAgICAgICAgICAgICAgICAgICAg ICAgICAgICAgICAgICAgICAgICAgICAgICAgICAgIC AgICAgICAgICAgICAgICANCiAgICAgICAgICAgICAgICAgICAgICAgICAgICAgICAgICAgICAgICAgIC AgICAgICAgICAgICAgICAgICAgICAgICAgICAgICAgICAgICAgICAgICAgICAgICAgICAgICAgICANCi AgICAgICAgICAgICAgICAgICAgICAgICAgICAgICAg ICAgICAgICAgICAgICAgICAgICAgICAgICAgICAgICAgICAgICAgICAgICAgICAgICAgICAgICAgICAg ICAgICAgICANCiAgICAgICAgICAgICAgICAgICAgICAgICAgICAgICAgICAgICAgICAgICAgICAgICAg ICAgICAgICAgICAgICAgICAgICAgICAgICAgICAgIC AgICAgICAgICAgICAgICAgICANCiAgICAgICAgICAgICAgICAgICAgICAgICAgICAgICAgICAgICAgIC AgICAgICAgICAgICAgICAgICAgICAgICAgICAgICAgICAgICAgICAgICAgICAgICAgICAgICAgICAgIC ANCjw/bYNhJ0mqsQTxfoV3X5leQt5UOn1RQX3ut1Gk XYZqAApdihZrYruWTyHaEKJeFenNZvc5OJxuQG5ZnEUwE9QrO8XgAMatPO1SWLUcNVQrvPRnKMZoOVUu TrU6QNQnNPnzCK2ZbSFlZJetMIGkWHJeAQ6PFKOiF150rwChCQ1BXg7ORsUtMB1lca9SJAlwEDPkHfzC Qxp4NXljXW0WzYGhtSNsBWDdYIXKBjKeV7fbq6PzMW iiLTOEACgmQM4Zw6QkgPOsOBa+Dm2OSO3tx5HtDPthGENgXU7bot1IUMqUUjImV3MxkDvgOWBqj3bbBM CkTP0scVZxEIW2PJGhjESyaTRLQON5bM8kSCygpxFhRI5NJWS4KBUhXN9tLLKfIFLnCkSuMNHPHB1NWH TqHEBuoPEsZTDyQGDEOS2ZOQynIOI7NltytlUdbPAy TLgfRB9HXCLrpiAhAApvEDMKUVy+Oz0IGT5nz0FiJSsaPLCcPD3bik2TBFpPCoVoN1N2eBBhG8F0IKmd Xk9TZOUxGJNiFMJqYRWTVWyrLP1BVD5odsQ9XB0WwJFpTCReFJBgeBQjWYe1X44jjTNjGBkkHP3SWKN+ Anais+Mz5PMPZyQSZlUYGzMvDpRDIIBzFgN7BkD8BVz4 UaJ5JoTB09yPepjtWdLMdcGZ9CJF1qEJAiHNDWVP6RrHSowZ4sekTgBoBzVECPNzJcI46ypWSlJMJxOV G1RVGbWh8CSUHyH3HawyHfaSvydkBcZONzDOYVSU4QFYmzrdGhbKFtxPpsFT98qPjvED9DFu9KRyHpWO 5ewj9JwFPdJi5BBKZlLX4PJVKcUVUjOUBsXYZ8CNUj AjPrYYroWXDiUWOdYPW8TQVfPJDwDW4DDoPhEFEvQOL1CVZsNVIuTEYooy9NUWEqJLAvYxB5UYQwSKMg BJUiURczYGJmTELnUPO5FDBtQYDmQI5JOmKyPKRdIRJ8VKJuFMMgBXHbmk3UDGLzCIJuLJvxUTNqXPNp DSNgYGjwKREmPRRnVhK0PTRkTADlGP0IKvXoIEHwHC P8ODilFMLtYGJzdt7TBEWnYJFeLrA2IKSoLOVeZVOnWNmaADCjKOY8SGLhZTOsTBJeZE7SSwPeOOSrNK YqEARlVKOxUTLwuk2JUIKzYGUrJIN6RpTrZMAaQFBrRQanZRMoLTY0ZJEcDPIkBAAhWJ7WFkKrLHRfYS B7WDGiZJUpUXUucz1GVMTcQBQsRCdfCcQyVGOgXYEd FXwxUNEhEUX1PaY4XTUeGVIvXT0XOlLfXNRnNOw3VJVgTBCfFUTsje9DRRFdDGVqWee3VvCbXWKiOYAv RIjiMSGmRGW4KPKlPVPkDIOeYA3KIeTwMKtdUCKDNff5XPzaD4n4NMRuAJ4PC5Qfh0CmHXitRJVBGAbp IU5yqtIbHYZhMp5IY9sYVtzmEVUqVsJuVIN7HxY1R8 WcPxJbRjDzLKUnKQDcFXO7Eh4aOAT8T5V5SDB4ZjZ4Rll1QLLhGSJ2FIYjNQDjBkU6PDd0NwIlDN6JJg 3RArN7ZYX9gJDbZs4INQO1WA8FJCLMB5HMCa== ID Date Data Source [id number] 09/04/2020 07:39:[address] [facility] Name Value Range Interpretation Code Description Data Fabiola rce(s) Supporting Document(s) Glucose, Fingerstick 229 mg/dl 70-[address] [facility] The above 1 analytes were performed by [facility] [address],[facility]#: [id number],[place] [address] ID Date Data Source [id number] 09/04/2020 05:15:[address] [facility] Name Value Range Interpretation Code Description Data Fabiola rce(s) Supporting Document(s) Nursing Note [facility] QFBNNx1pYpTRWlFt69/GZCnuFXFbv5JfTShhHCb7UVrxEXMkS2CzQTR7pF9jYRY9YRhCViDgXzXsRmG1 [facility] [file] ICAgICAgICAgICAgICAgICAgICAgICAgICAgICAgICAgICAgICAgICAgICAgICAgICAgICAgICAgICAg ICANCiAgICAgICAgICAgICAgICAgICAgICAgICAgIC AgICAgICAgICAgICAgICAgICAgICAgICAgICAgICAgICAgICAgICAgICAgICAgICAgICAgICAgICAgIC AgICAgICAgICAgICANCiAgICAgICAgICAgICAgICAgICAgICAgICAgICAgICAgICAgICAgICAgICAgIC AgICAgICAgICAgICAgICAgICAgICAgICAgICAgICAg ICAgICAgICAgICAgICAgICAgICAgICANCiAgICAgICAgICAgICAgICAgICAgICAgICAgICAgICAgICAg ICAgICAgICAgICAgICAgICAgICAgICAgICAgICAgICAgICAgICAgICAgICAgICAgICAgICAgICAgICAg ICAgICANCiAgICAgICAgICAgICAgICAgICAgICAgIC AgICAgICAgICAgICAgICAgICAgICAgICAgICAgICAgICAgICAgICAgICAgICAgICAgICAgICAgICAgIC AgICAgICAgICAgICAgICANCiAgICAgICAgICAgICAgICAgICAgICAgICAgICAgICAgICAgICAgICAgIC AgICAgICAgICAgICAgICAgICAgICAgICAgICAgICAg ICAgICAgICAgICAgICAgICAgICAgICAgICANCiAgICAgICAgICAgICAgICAgICAgICAgICAgICAgICAg ICAgICAgICAgICAgICAgICAgICAgICAgICAgICAgICAgICAgICAgICAgICAgICAgICAgICAgICAgICAg ICAgICAgICANCiAgICAgICAgICAgICAgICAgICAgIC AgICAgICAgICAgICAgICAgICAgICAgICAgICAgICAgICAgICAgICAgICAgICAgICAgICAgICAgICAgIC AgICAgICAgICAgICAgICAgICANCiAgICAgICAgICAgICAgICAgICAgICAgICAgICAgICAgICAgICAgIC AgICAgICAgICAgICAgICAgICAgICAgICAgICAgICAg ICAgICAgICAgICAgICAgICAgICAgICAgICAgICANCiAgICAgICAgICAgICAgICAgICAgICAgICAgICAg ICAgICAgICAgICAgICAgICAgICAgICAgICAgICAgICAgICAgICAgICAgICAgICAgICAgICAgICAgICAg ICAgICAgICAgICANCjw/cTSzF5xqfKBoimH6J0xwQm 5BNs5OJJ9wq0XmMCKqMMdzuyHwLwwQQbLvOSAiVstYUmb4YSbwXT8NzFOmI4KbA0AeWBhqAX5UAYUmZU AsbAGhVBFnJEJfTbZ2WTEdMSruYC7VkMGyFLhvDRSqFNOfKS1JQQKiM888izHeSB7UFn4VOdUfAW2pep 0XMtNqUGWqGuyYGuq1KDpgHC2QwMKfwNRkTuRbNRES KrPbH8aow2IyNaZqJIJMGTggRJ6Kt3YihWNlHNk+Ie3DNZ7pn7GeHToqXsCuYX5qvv0STMyBPvGcU0Va gAdmYV44bjXyhbfuEz94TSFwaHUUOIQpuDXlA7DrrYx1XEDRZiSxyJRhFlulFpQdHORlAEleMSHNRPjN ZwGjU2Krv4IaVaZ9TBMoOtIkMIfvUWNjTdF6MM40cY sfZQ9NNCCwLDBrGY64JGSiCDCtUn0GBy6RTpXaQK4lnp8OKzNnEVYzEzqPSyu6FAuzKS3UxPHbB9SwgU Uxg3pMTaOrV3KOVZUqEOVrLx2IXZXfUdWgUJMrMEvgAT1qEJPpXCFDhRricmW3MK9YON3cdgZzSP9LJh IvBu4yCb6RCtUdL1GxP8QkNGXzPJUSERzoZT4ZNZef TI1lEC0Sh4WYhSQzrQ1ahi2WBXPqFHMvWemccw2HQfgaS3U2xIeeNUZzNsCpQWALAUfbQK7RPDXrUSV5 KHOoSQZvRKCJRbLcB49rIL9VD6Oiz70oDqI3VWJcQmIdADivZB89fCdtymRtmFReiLosOJ1IRz0+DQpl bmRvYmoNCnhyZWYNCjAgMjUNCjAwMDAwMDAwMDAgNj S0UtVfBx1JQDAoCKBcBOMaAsWwGQZwBPVnFDlyTRFfTHY9LQH2YDFfUUNmLH8KVaUgEBCxRgLvGmHoMF HzQPLujs4OFUSoOARoIRV4ZgEwHEBjITJnIMgaKJSmHFVeKCggHVJnMAZxHU6UNhFsZNSdMGXmLyWuDB DeDZOnts0XLLCpJXKgMoGvYvJmWXShVEWpOXzcVBSx HLMbLaW9QOFoXVAlTM3EBjZqYPGqTME6ASkzOGZvBMZwtk6SZAAvRZCdMyL0VTHkRJHoPJLhBPbmAQSl IAWqLbx2HABxQKUwIY1NAqUmJFRqSNB7WJzhCJVmSDPgjl3ATUCtGJMbLsMgDsXfSCLqYEZsCXpeTDNc XYK8FOOuLJNsWAEcCH1RNkAjIRJxCKJ9WiKyZRDzZT Xyke2ZQROxBKTlKnt1ZXVaYCJrNNXtKVatQEGbVRE4ELM8VKDzWSUqSS7ZUzCpTLOxPWmpIHcbXUIpZR Wpcv7XEEZjDJApHIN6TSWbZCVgBWPuFEchQBTwUVC6PVF8TKNoRNRmJA4JLsVxSICrUXh5WzBlCPLhQF Vpli3MUOUbVPEdUDU4MZYdQYKkUXKlOThlPXHmVCCs CkCiZSFqIFEwHC9RMdPhLHFkLuY7SWzqMYOdNSWzap6YmMXaiZbfqc8OKSmCTy8JtXydKXW9MXdzJt3z lHZmOWWyPPRVTz1XuoKtYPTrBHHWGXzfDDNgQMM7WjdvBlR4JMYyM8XnQ1H2QJJvLEAwV0X3E0K9USP9 DuL5TptiR0N1UwX4Y8P4XsR6UHGjXmUuYWK6BgqiYE dlZTU+CL7qZJw+Dg2Rr7OkdoB8wlPzGLmoDQdvIU5JHKOWQ2AMGo== ID Date Data Source [id number] 09/03/2020 09:05:[address] [facility] Name Value Range Interpretation Code Description Data Fabiola rce(s) Supporting Document(s) Care Plan [facility] AEXGFc6eWoAOUsZy08/RPFdxWJEfg0MdKDmoDLq9DFjlIRJmM0FbXKK6wU7vXBU3RPuJAhEfRrFsNtH2 lbm [file] AgICAgICAgICAgICAgICAgICAgICAgICAgICAgICAg NZRoMBBvZZNuDT6YVKUoQFTiSHEvCDSxHHKmYLAzIQGbYPCuMZQwCFNwSHHvSLBeDROxIRBuJORtSHZj MOWnXJDkFDKdEFWfNNSzIJZwFFQiYSApIAWgDZBqNCTkXVCxVRRgSLYuTFTeAKPbLJYeES1VTPVvHILa ICAgICAgICAgICAgICAgICAgICAgICAgICAgICAgIC AgICAgICAgICAgICAgICAgICAgICAgICAgICAgICAgICAgICAgICAgICAgICAgICAgICAgICAgICAgIC NoDK0QFFPaYCWzDCSjXJAqHOJjAVKtNRLwBCEyTOIpKSUbLRLkUUAuTNBuYRQoLGEvOPLxXTRpYDBlST AgICAgICAgICAgICAgICAgICAgICAgICAgICAgICAg PQJsTEFqCEAaRRBaKI5GOXFbRSGhRDYoDLNbLEXzBADfPSGhCOKkSTYxZBNrURLaWBFbHEScWFPhHCDh MJKjGASiNXFtQINcZNZeFHQhTIFwJYRuXSVpEEYcZUBsMGDtHJDbXEUkIGBzPCCzQFQiZXTuRT7UVBXe ICAgICAgICAgICAgICAgICAgICAgICAgICAgICAgIC AgICAgICAgICAgICAgICAgICAgICAgICAgICAgICAgICAgICAgICAgICAgICAgICAgICAgICAgICAgIC XzLBYbOU2RXPFxJOIvRALmZFXdEXKmQCKgRMHtNSMxMTAhVLGmWCAbFENkVGHhXACvDESaNAXlQRFgXT AgICAgICAgICAgICAgICAgICAgICAgICAgICAgICAg FXKzWBZfLYXyBBEbAIBvXI5CRVMvYDDuOVSrZLVvYJMqJWVyQFDhQCYaGWOlQEHaGFDdUOCxQMEyMNOr IZQfIXDeVVYtTCNzVWCrCPNvWLTrMIBmQPLgOQDpDWQbWLZrATYyGAYzGCOpFEQmUALgOMOyWIFbVT6I ICAgICAgICAgICAgICAgICAgICAgICAgICAgICAgIC AgICAgICAgICAgICAgICAgICAgICAgICAgICAgICAgICAgICAgICAgICAgICAgICAgICAgICAgICAgIC XeRRVjYZZsFH2RNLBmHUCkQRQhBLBaBSEhJHFiTRAlJIZeGQFtKOTaRAZlFVQwVJYjOPJgKBLvVOXbSC AgICAgICAgICAgICAgICAgICAgICAgICAgICAgICAg RNDsHBCrGKUnFLMpWAQxVFJjXS5LSS31rDDcb2Q0QCKtLJ4eqmx/Cp6GZSlsitTuySHpLL1RViWlPZ9y fm6RPiBgBY9mgm8TWLyNWmTuA0O4tUJrTFQmVHWPDoQaW30pWXvgTi49ERsdFMMlAuPbJKi8Ug9MMvAx V0hjXKXlEwC1IJHlZsEuAAypDB8Yc0RbjYDoGZm+Pg 0QPM6th1EtSRqbQkKoCZ7dpj5KEHjJTuZtE7UeqdL8JBEuYPBbRn5SUPYaCPEolYQuJlVcRTCWUuLqR5 DpgL29EKFNQu9+SRkppyWcVfwHMlSgKZHax0PgLOx9CH5USSXwKGp8pJInD4NzQCKTjKPiTLF9REnuz0 dqEYMFE7u8hNmwUGJZERM7PMXqJU6xTKRkYWX0AwXi IABLCR2PTCOgDOPkzBQoMTQiZINNSX7CXRwdUHV6ZyspqhXbdTXxDDgaCS3SMOQcawQaEcGoHHTKTFf+ Hf2MCV5dz2JzMDqiHOAlLP6smf2QDQvUZfNuT4T5oWMwW4I6IWbpMi4SQJKeEJLyLcUoBFBCNFypKR9B VA5uaxW8AZ4JkNOoCTLeNUDonNOrPUg5F19obSBwPO ziBT1HUZG+Anais+Uk2SZGFrXYHzUNAhPsPwHWOEBpHxH6XbH6YNd6BaR9ApTD63uPaiqkItBOijZO5HQW 0wKOVlLZUOMH5QxEQbpJ5eesLuInLvPEJQNaDkL89esNGpOMHsVFCqNPBwVa1UGUCjX6AwmiSzaTxlku YkTMUtJKGZMH7MAGqyrjGewGKwcYarWH43hMpcHK5T Iy2VYgIjFH5tqk8IlEMbVw5QBFKmJI0XKFHrAMHbGDMoNIJ3BKCdNpQrITdxSYNiRRXeHPV5GKSvGUMa UR4IQlBbMTNuFFn6WzTeWDVtCRElqu3ONRDuRTOkNWW8KlNzQZVvWUEsXQajLIBeQJQrDCQ9LDFbPAKa TP5NThGdKDAnGDJ0OwTfXYIcNFGjas1KPUOqQEMsKX O8KXXcZSEyLEZcLDueUYPoLTCpHsA6HEEfAEZaMT1GZwYrNYVgNXU1YkmpFSCaZKLjsl9XHJFqGUMjSu YtRxNhQPLbJMAkNXwvNQClEDWpBQadIUVrLFNsGF5ZHxIfFXBnWQTwBgswRXNdLULcqq6KNMYmSXXuIJ G9HTLzFPKjLCNnLJrpJHCeFTZ5XfCxLEMqBGOsEN3K FaLyCZFxNXmwIEEtRXDwGYZvsu9LFFUyZOSrKfCuGCQwYIBkRACpCAefKCTrIVH4ZJY0BNRkVCQvTO7S LvLtCUQuAEl5TIYtEPVlNLTrxx3QRGHoZQHmWMF1UnNkZTLtFNMxJJpeFSWbDYX2NpQ4KYWtAPPuVO1I HiYlATWnWUr8NRBbLYIwFVOqon2REZUrRXZoPLPkId PiPPDlIBZkAWtfXSPvOIIjWcI6FUFtLAKuOX4XXjRwBSEeMmH8XcOiRHAsKWPilq3HQRRaOXUvIYv7NU XgXGNxTDWoOQk5haAdeWMdWCv7LO1IB9UoujCnVcXURd4Ie221PIU7WDJiGk2YY1paSs8mJCZmTLIWCh 2KDOo0DYj0FSUnFcP2MWBtVWQvKuX2VRHiOzX8OqN5 NmIwOTE+XJlaTwI4YLRxQvC8SeIqRNIrYMq9CHVeBFopEMB2TxR7YW7mZCUIUr8+DQpzdGFydHhyZWYN FbOiHzSiCAxeBKSXOv2J ID Date Data Source [id number] 09/03/2020 07:51:[address] [facility] Name Value Range Interpretation Code Description Data Fabiola rce(s) Supporting Document(s) Glucose, Fingerstick 286 mg/dl 70-[address] [facility] The above 1 analytes [facility] [address] [place] [address], ,[place] [address] ID Date Data Source [id number] 09/03/2020 05:09:00 PM [facility] Name Value Range Interpretation Code Description Data Fbaiola rce(s) Supporting Document(s) Glucose, Fingerstick 132 mg/dl 70-[address] [facility] The above 1 analytes were performed [facility] [address] [place] [address], ,[place] [address] ID Date Data Source [id number] 09/03/2020 03:00:40 PM [facility] Name Value Range Interpretation Code Description Data Fabiola rce(s) Supporting Document(s) Care Plan [facility] MCYOOv2eHoPHLoVe46/JJIkuHCKzq4MgNVcyGAe9JOnnGOCfM5WuILQ5aQ4cANN0UKkLIcGjRbQaBbT6 [facility] [file] AgICAgICAgICAgICAgICAgICAgICAgICAgICAgICAgICAgICAgICAgICAgICAgICAgICAgICAgICAgDQ ogICAgICAgICAgICAgICAgICAgICAgICAgICAgICAg ICAgICAgICAgICAgICAgICAgICAgICAgICAgICAgICAgICAgICAgICAgICAgICAgICAgICAgICAgICAg ICAgICAgICAgDQogICAgICAgICAgICAgICAgICAgICAgICAgICAgICAgICAgICAgICAgICAgICAgICAg ICAgICAgICAgICAgICAgICAgICAgICAgICAgICAgIC AgICAgICAgICAgICAgICAgICAgDQogICAgICAgICAgICAgICAgICAgICAgICAgICAgICAgICAgICAgIC AgICAgICAgICAgICAgICAgICAgICAgICAgICAgICAgICAgICAgICAgICAgICAgICAgICAgICAgICAgIC AgDQogICAgICAgICAgICAgICAgICAgICAgICAgICAg ICAgICAgICAgICAgICAgICAgICAgICAgICAgICAgICAgICAgICAgICAgICAgICAgICAgICAgICAgICAg ICAgICAgICAgICAgDQogICAgICAgICAgICAgICAgICAgICAgICAgICAgICAgICAgICAgICAgICAgICAg ICAgICAgICAgICAgICAgICAgICAgICAgICAgICAgIC AgICAgICAgICAgICAgICAgICAgICAgDQogICAgICAgICAgICAgICAgICAgICAgICAgICAgICAgICAgIC AgICAgICAgICAgICAgICAgICAgICAgICAgICAgICAgICAgICAgICAgICAgICAgICAgICAgICAgICAgIC AgICAgDQogICAgICAgICAgICAgICAgICAgICAgICAg ICAgICAgICAgICAgICAgICAgICAgICAgICAgICAgICAgICAgICAgICAgICAgICAgICAgICAgICAgICAg ICAgICAgICAgICAgICAgDQogICAgICAgICAgICAgICAgICAgICAgICAgICAgICAgICAgICAgICAgICAg ICAgICAgICAgICAgICAgICAgICAgICAgICAgICAgIC AgICAgICAgICAgICAgICAgICAgICAgICAgDQogICAgICAgICAgICAgICAgICAgICAgICAgICAgICAgIC AgICAgICAgICAgICAgICAgICAgICAgICAgICAgICAgICAgICAgICAgICAgICAgICAgICAgICAgICAgIC SpAQRbGVWvPJw8E4fnCOGbUJAlPB4cBIa3Is0+DQoN BkTsYYQ4stPkiO3YMJ8ap1ZaAZfbAELjo6TvVSf6PQ7PSWOqWYejOL1LTQcphe5AAIAdXPOrvEGKv8rb PbVtHFM0ATWzBdnzZF1UHZYsK4plzgTgFYDlADOZUO8UWxOwD6SrkK90GLUCEl5+DQplbmRvYmoNCjIy PRTsr3AjPGr4AV1QEPNwLjnbw4OnScGdXZZKHWncCF 6XUIH6PRDqARPpWv6BDACsP366muPjQK7VNr2UDhGyMG7hac1TPeMyDJXyZylTEbz5WYbtYC7XfRLaLR fMMXDmPCWpNM3bDnsgIr9azTLnGP7kp4njZSWBDIV5HXIhKW0gZQVzQOMzJcL8SYLCTF6AIBSjBDNtoA JkVXKdJHLIHX5SBYhxAXC1DbrosuIydFPxCKvvFZ8B YXJlbnQgMjIgMCBSDQo+Eq4RNC5da2PwZJfxPSDsEV6vmq7NFMwPChCnO0P5bAXbI0U7ZGlgHw5MGJMh FIEgFwNoONIJRSpmDT1QQQ4vreR9TF8SzFGzLSKbTZHpsSTbOYe2U59kiURzYPqvSM8BUXQ+Anais+Pg0K NHHxRWKzCWHtPmSaXSKHRcGbH4CiQ5XHr5InR6YnCL 50hAcurdOzYPryHK7KUY9mALPsEVZGZI9NkCKecC3cqyIpHiYfGEOYCvUeB77icKFiEITuBGWjEPUbKr 7VVCUmZ2CcnhQonPlcjgWeXPZdLJJEIG8VZRtlxrTbqSKayZhrJT14jVaqTL6OEm8YRuFdTG5mii2WzS JsGd4OPMAjYO6GBYCeCNAtURXjORP9XXTaQaPuLRwh AIWyTANbHBK9BEWgGLRzQA5SZaDiGGAxDAiiOSJzXJKcNMJqxk4BLTMvVPKdOWmhOaWuDVXbLAKwUKvh NCSaGCVrFJV2FXVtBGXnNI5FPcHyULPaTKR3GhHaJMOlQOAnkw3ODXFuQAXkQXytIJZtEUIeRIJwLNyg KVWlOCYlXJj8TRUjDGOyJX7NIwBwNJXoHAThYKxlGC HzHDZpsr7PJBErYXFjSwQ2GxPnBZZwDZVaCXmyMSHiNYC0ChNoQVNfGYOiPR5DBdKpUIAbCAQ6TjyrZX YuNVUmdf5UPDUfUYZqRAEiUDAyHJBtFZZdOUeeCKQfJRM7PMYnTBBmPEGyIK8GKfBvKVPbNSyeThZnCJ UuRSUmha1UBCDuETBwZeL7GTOhXFRdAYIwPDrmFDRs EEB5BmK5CCSvLWRkCV2KMrXsRAOyUMb1JjIcNIWmONSkjq5LEMBxUMArBRxkLjInMGHmFHSnYCtvTFAn BNZ1FUb9AAKmHZUpBF3CIsJeZYQzAYylIsHbFSVzOEWhke1EHTUdRYYuMFF2XiAgNHMpZQPuNFctZOYm PMBoKIZ6FZBnQMQzQI8CVoWkCQEoUfZyUZFqOXVhRS Qjju1KKIQyZCQcRSLcHkRiSZStMWWfXQm2wpPfuIZxHYt3CH7JY8YqodSpCwGFTs9Ch041ZAT5SBSjMl 7LW7fbYg6bZVEmEOZDFo7LJEq6ExCyRHVaQlWzFZLsVnS7NXJ3BHHdYPYbSjdqXuC5DRG+IYv9JBErPC C2YDVnXSGaGvAmGUgdWMNrGeRjDMBzCGpnMU8cVG ANCj4+EUtjkGJaxHwoSISQFtQkXYdiOUbcWQWFNg3A ID Date Data Source [id number] 09/03/2020 11:39:[address] [facility] Name Value Range Interpretation Code Description Data Fabiola rce(s) Supporting Document(s) Glucose, Fingerstick 121 mg/dl 70-[address] [facility] The above 1 analytes were performed by [facility] [address]#: [id number],[place] [address] ID Date Data Source [id number] 09/03/2020 11:17:[address] [facility] Name Value Range Interpretation Code Description Data Fabiola rce(s) Supporting Document(s) Progress Notes [facility] KGBKHy4vKgQKTvOo24/LFOtjEOMcy5UdOLfnILh5IZfsBTCnU8HhNMY2eY0gVGW4TUeEIoNhHhKzPdC9 lbm [file] AgICAgICAgICAgICAgICAgICAgICAgICAgICAgICAgICAgICAgICAgICAgICAgICAgICAgICANCiAgIC AgICAgICAgICAgICAgICAgICAgICAgICAgICAgICAg ICAgICAgICAgICAgICAgICAgICAgICAgICAgICAgICAgICAgICAgICAgICAgICAgICAgICAgICAgICAg ICAgICANCiAgICAgICAgICAgICAgICAgICAgICAgICAgICAgICAgICAgICAgICAgICAgICAgICAgICAg ICAgICAgICAgICAgICAgICAgICAgICAgICAgICAgIC AgICAgICAgICAgICAgICANCiAgICAgICAgICAgICAgICAgICAgICAgICAgICAgICAgICAgICAgICAgIC AgICAgICAgICAgICAgICAgICAgICAgICAgICAgICAgICAgICAgICAgICAgICAgICAgICAgICAgICANCi AgICAgICAgICAgICAgICAgICAgICAgICAgICAgICAg ICAgICAgICAgICAgICAgICAgICAgICAgICAgICAgICAgICAgICAgICAgICAgICAgICAgICAgICAgICAg ICAgICAgICANCiAgICAgICAgICAgICAgICAgICAgICAgICAgICAgICAgICAgICAgICAgICAgICAgICAg ICAgICAgICAgICAgICAgICAgICAgICAgICAgICAgIC AgICAgICAgICAgICAgICAgICANCiAgICAgICAgICAgICAgICAgICAgICAgICAgICAgICAgICAgICAgIC AgICAgICAgICAgICAgICAgICAgICAgICAgICAgICAgICAgICAgICAgICAgICAgICAgICAgICAgICAgIC ANCiAgICAgICAgICAgICAgICAgICAgICAgICAgICAg ICAgICAgICAgICAgICAgICAgICAgICAgICAgICAgICAgICAgICAgICAgICAgICAgICAgICAgICAgICAg ICAgICAgICAgICANCiAgICAgICAgICAgICAgICAgICAgICAgICAgICAgICAgICAgICAgICAgICAgICAg ICAgICAgICAgICAgICAgICAgICAgICAgICAgICAgIC AgICAgICAgICAgICAgICAgICAgICANCiAgICAgICAgICAgICAgICAgICAgICAgICAgICAgICAgICAgIC AgICAgICAgICAgICAgICAgICAgICAgICAgICAgICAgICAgICAgICAgICAgICAgICAgICAgICAgICAgIC AgICANCjw/lHPhL2svbMSpeuU1H4wtVf9YVt1HRL5o j3DhRZNaHDksrvNuOsuEHoFdIUKlAlyOUmc0WKutVD2IfQSwH6GjN5GnSEplUB2AUEQfQLVkyWJdKXXn XKGqCdM6JDIaNTflDX4DfQYjZMwmRGTgYBZmSJ6QPOFgU061fbSuPE7DLg3ONrCpOO0axu5JCFnvQPPm JpwUWpk9ZXnnND8IfNXulVWoBXCtYHGHLoFlT5zky2 AcEMnhKBFGSXaiIK0Zy6DpaZWjDSs+Iq4AVO0wf6BpQWqqCEYoHN4wht5OGDhKMgTgS6VvjEhwLKPuc4 oqDZNvKC2rgOHeAZZ2OPIyfSRofMLHELP0bP9vUEachpKcQZ6CDGT3ZXDaTR0vQOJjMCSeGrSbCCJSOU 4WSCFuUXAikIAnBZTkMNSMLM8VFOoiPHP3DcpnqrTa xFVfYGreFK7TRSVbzjNpPLqpVMHXJJo+Qb9FJO8ny6GoWLimJHImZR9wuu8FXUxMQsJnJ3J3xJLnK2M4 XEviJb7QYBYcIHIsEULuZGUFARhwXF6ZWS3efrH5GE6JmICyKOJdMXSwyQFqDEe4O33yvHNrMUhrOQ7C ICA+Anais+Zr1YFIWfGKGvPBEdFfUkIXDJDiUnA6AhU9 JWi4SdT6ToIE80cOhuzmPeHOgvNV5JUV6pNYTdGVDDKI7EdPBbgH3ffaZwUxQvUOUUPwJwU66deSByWG UmWPM9HRXvXw9YJFLiV2QrwlQttQplokNyEJXuFVTDSC6MLTfbtpKnqWXheWyeNY04fBirZY6ATm8FAg WvXA0xtv5CmDJmYo2DJIWjJF5GWTRbLGLuGDPkNNG3 DEPrXgXwWNfcAJZzDTYvKWJ3RWKkORJhVT2UYpBfOFHkKJB9MDIiSDXgBZHgva3AHRKlYENxZoH1JMSp TXGqAOOnXUdzYIDpTIUhPTV3GJLkTAWmWL5TPtVnPZGuKQR2UTrsJKCvUGGumu4WNBIyODHlSUgzBkCp FKNfJHWfJPsyIQOrPNOlOpZmJFQuBJTdFV2ESiDnST McLXP5KjCtLGRaNRDazo0PEDTsMRLxHmU8MxWqGRSdHWOcIJksELIaJJP3JDL9GTDrSPFuLK7REgWeSL ZnERAwRDNyLGPoAJGugr7QMOYdSBErCKK7EFPdYJYhMQCpDLxkQUUyFOB0XNCsVMCcXGDsGS7EXqCuTH AzJJE1AKEuPZPmATCmvm5UBJFeCFNkJYagSIIaJNTi UNOhOSllWFRvUNK2WtTdVRReRUUvBQ4MXqHuGHNyDLk8TPydTIKoMJMfpn1TUCYdCQTlZzy3OWGmZFHf ZQAkYCjbORAuUOO4LQUbEOFdJCInRD4VRbDbIRflKOUMMla2UAdmL2q5TUNrQF1DM5Mtp8QoPMpcGSNZ CIrjZY6pbrUmONCnCq2TG9vJXrsjGWS5WhR4DCDkRH BzFuL2ZDq5EeI7OGFeZCDhVOUnOm0lOSDhFYEsQkA8OaLmZ7P0CHZaOXcvQGMgUfQ3UkW2XLIyQkMfWA 7CUu5IFhO4YGJ6bSTaZg5AHUO4Uw0VWPFGP8NHIm== ID Date Data Source [id number] 09/03/2020 12:40:[address] [facility] Name Value Range Interpretation Code Description Data Fabiola rce(s) Supporting Document(s) PSA, Total 1.64 ng/ml 0.0-4.0 Normal (applies to non-numeric resul ts) [facility] The PSA is performed using the Siemens ( [place]) [place] assay methodology. Sequential comparative analyses should be performed using the samemethod since results obtained by different methods are not interchangeable. The PSA assayshould not be used as a cancer screening test and should not be interpreted as evidence ofthe presence or absenceof malignant disease. PSA, Free 0.224 ng/ml [facility] The table below lists the probablility [...] malignant disease. PSA, Free % 13.7 % [facility] PSA Frequency First specimen [facility] The above 4 analytes were performed by [facility] [id number] [facility], ,[place] [id number] ID Date Data Source [id number] 09/03/2020 09:42:[address] [facility] Name Value Range Interpretation Code Description Data Fabiola rce(s) Supporting Document(s) Hemoglobin A1C 10.8 % 0.0-5.[address] [facility] Attention! Effective: 07/06/2019Please n ote a change in the reference range for Hemoglobin A1C testing.Previous Reference Range: 4.2-6.3New Reference Range: Normal: Less than 5.7% Pre-Diabetes: 5.7 - 6.4% Diabetes: Greater than 6.5%The above 1 analytes were performed by [facility] [id number], ,[place] [id number] ID Date Data Source [id number] 09/03/2020 08:11:[address] [facility] Name Value Range Interpretation Code Description Data Fabiola rce(s) Supporting Document(s) AST 15 IU/L 15-37 Normal (applies to non-numeric resul ts) [facility] Sulfasalazine and sulfapyridine have the potential to falsely depressAspartate Aminotransferase results. Baseline values before medication administration are recommended. ALT 18 IU/L 16-61 Normal (applies to non-numeric resul ts) [facility] Sulfasalazine and sulfapyridine have the potential to falsely depressAlanine Aminotransferase results. Baseline values before medication administration are recommended. Alkaline Phosphatase 85 mIU/ml 50-136 Normal (applies to non-num zbigniew results) [facility] Total Bilirubin 0.30 mg/dl 0.20-1.00 Normal (applies to non-numeric results) [facility] Blood Urea Nitrogen 28 mg/dl 7-[address] [facility] Creatinine 1.10 mg/dl 0.67-1.17 Normal (applies to non-numeric resul ts) [facility] N-Acetylcysteine (NAC) and Metamizole brady ve the potential to falselydepress Creatinine results. Baseline values before medication adminstration are recommended. Patients undergoing treatment with phenindione will have falselydepressed results. Patients on phenindione therapy should be tested with an alternativeCREA method.Toxic levels of acetaminophen may lead to falsely depressed results forpatient samples. Glomerular Filtration Rate 71.00 mL/min/1.73m2 [facility] GFR Reference Ranges:Normal Function or Mild Renal [...] of Health and the National KidneyFoundation. The [place] method used in calculating this result is traceable to IDMS standards. Glucose 264 mg/dl 70-110 Above high normal [facility] Sulfasalazine has the potential to false ly depress Glucose results. Sulfapyridine has the potential to falsely elevate Glucose results. Baseline values before medication administration are recommended. Calcium 9.4 mg/dl 8.5-10.1 Normal (applies to non-numeric resul ts) [facility] Total Protein 7.7 g/dl 6.4-8.2 Normal (applies to non-numeric re sults) [facility] Albumin 3.4 g/dl 3.4-5.0 Normal (applies to non-numeric resul ts) [facility] Sodium 140 mEq/L 136-145 Normal (applies to non-numeric resul ts) [facility] Potassium 4.3 mEq/L 3.5-5.1 Normal (applies to non-numeric resul ts) [facility] Chloride 108.0 mEq/L 98.0-107.0 Above high normal [facility] Anion Gap 9.4 [facility] Carbon Dioxide 26.9 mMol/L 21.0-32.0 Normal (applies to non-numeric results) [facility] The above 16 analyt[address] [place] [facility] [place] [id number], ,[place] [address] ID Date Data Source [id number] 09/03/2020 08:11:00 AM [facility] Name Value Range Interpretation Code Description Data Fabiola rce(s) Supporting Document(s) Magnesium 2.2 mg/dl 1.6-2.6 Normal (applies to non-numeric resul ts) [facility] The above 1 analytes were performed by [facility] [place] [id number], ,[place] [address] ID Date Data Source [id number] 09/03/2020 08:11:00 AM [facility] Name Value Range Interpretation Code Description Data Fabiola rce(s) Supporting Document(s) TSH 0.29 uIU/ml 0.36-3.74 Below low normal [facility] Concentrations of Biotin above 100 ng/mL can potentially result ininterference.The above 1 analytes were performed by [id number], ,[place] [address] ID Date Data Source [id number] 09/03/2020 08:11:00 AM [facility] Name Value Range Interpretation Code Description Data Fabiola rce(s) Supporting Document(s) Triglycerides 97 mg/dl 30-200 Normal (applies to non-numeric re sults) [facility] N-Acetylcysteine (NAC) and Metamizole brady ve the potential to falselydepress Triglyceride results. Baseline values before medication adminstration are recommended. Cholesterol 150 mg/dl 0-200 Normal (applies to non-numeric resu lts) [facility] LDL Cholesterol 61.6 mg/dl 0.0-100.0 Normal (applies to non-numeric results) [facility] HDL Cholesterol 69 mg/dl 30-70 Normal (applies to non-numeric results) [facility] N-Acetylcysteine (NAC) and Metamizole brady ve the potential to falselydepress HDL Cholesterol results. Baseline values before medication adminstration are recommended. Cholesterol/ HDL Ratio 2.2 0.0-5.0 Normal (applies to non-n umeric results) [facility] LDL/HDL Ratio 0.9 [facility] The above 6 analytes were performed by D[facility]rios [facility] [id number], ,[place] [address] ID Date Data Source [id number] 09/03/2020 07:44:[address] [facility] Name Value Range Interpretation Code Description Data Fabiola rce(s) Supporting Document(s) WBC 6.08 x1000/ul 4.80-10.00 Normal (applies to non-numeric re sults) [facility] RBC 4.82 x1Mil/ul 4.70-6.10 Normal (applies to non-numeric re sults) [facility] Hemoglobin 13.9 g/dl 14.0-18.0 Below low normal [facility] Hematocrit 42.2 % 42.0-52.0 Normal (applies to non-numeric resul ts) [facility] MCV 87.6 fL 80.0-94.0 Normal (applies to non-numeric resul ts) [facility] MCH 28.8 pg 27.0-31.0 Normal (applies to non-numeric resul ts) [facility] MCHC 32.9 g/dl 32.2-37.0 Normal (applies to non-numeric resul ts) [facility] RDW 13.3 % 11.5-14.5 Normal (applies to non-numeric resul ts) [facility] Platelet Count 290 x1000/ul 130-400 Normal (applies to non-numeric results) [facility] MPV 9.3 fL 9.4-12.[address] [facility] Neutrophils 53.5 % 40.0-74.0 Normal (applies to non-numeric resu lts) [facility] Lymphocytes 35.4 % 19.0-48.0 Normal (applies to non-numeric resu lts) [facility] Monocytes 8.2 % 3.4-9.0 Normal (applies to non-numeric resul ts) [facility] Eosinophils 2.0 % 0.0-7.0 Normal (applies to non-numeric resu lts) [facility] Basophils 0.7 % 0.0-2.0 Normal (applies to non-numeric resul ts) [facility] Immature Granulocytes 0.2 % 0.0-0.5 Normal (applies to non-nu meric results) [facility] Nucleated RBCs 0.00 % 0.00-0.20 Normal (applies to non-numeric r esults) [facility] Abs. Neutrophils 3.26 x1000/ul 1.92-8.31 Normal (applies to non-numeric results) [facility] Abs. Lymphocyte 2.15 x1000/ul 1.20-3.70 Normal (applies to non-n umeric results) [facility] Abs. Monocytes 0.50 x1000/ul 0.14-0.97 Normal (applies to non-nu meric results) [facility] Abs. Eosinophils 0.12 x1000/ul 0.00-0.76 Normal (applie s to non-numeric results) [facility] Abs. Basophils 0.04 x1000/ul 0.00-0.22 Normal (applies to non-n umeric results) [facility] Abs. Immature Gran. 0.01 x1000/ul 0.00-0.02 Normal (appl ies to non-numeric results) [facility] Abs. Nucleated RBCs 0.00 x1000/ul 0.00-0.02 Normal (appl ies to non-numeric results) [facility] The above 24 analytes were performed by [facility] [id number], ,[place] [address] ID Date Data Source [id number] 09/03/2020 07:15:[address] [facility] Name Value Range Interpretation Code Description Data Fabiola rce(s) Supporting Document(s) Glucose, Fingerstick 228 mg/dl 70-[address] [facility] The above 1 analytes were performed by [facility] [id number] [facility], ,[place] [address] ID Date Data Source [id number] 09/03/2020 05:19:[address] [facility] Name Value Range Interpretation Code Description Data Fabiola rce(s) Supporting Document(s) Nursing Note [facility] TTYXYq0oWtLYAkYj70/MXUqdXGZmu4MhKRicWVg8OBwdNSElW5UkIFZ8bH4zSWE4URfOZdHrIrBkZgX6 m [file] Y+GL8kXYt+Em7Sj0AgzlW9eaJwEBolQQefAT5BOJLZY4CLGh== ID Date Data Source [id number] 09/02/2020 11:58:[address] [facility] Name Value Range Interpretation Code Description Data Fabiola rce(s) Supporting Document(s) Care Plan [facility] KAABGc3jVwUYFeIq72/VXRfqOLJpe1XqUUyjFLg3SUuvZFJsV4BeLXW7iB6bYCT4QIwWBgZlEqOaHkD3 lbm [file] UjG1GIEhLVE+YP5iYHu+Oy4Xg2ElvnI2yuLkHOlrWSSpIa9QXPWXP9UCBh== ID Date Data Source [id number] 09/02/2020 09:30:[address] [facility] Name Value Range Interpretation Code Description Data Fabiola rce(s) Supporting Document(s) Glucose, Fingerstick 125 mg/dl 70-[address] [facility] The above 1 analytes were performed by [facility] [id number] [place] [address],[id number],[place] [address] ID Date Data Source [id number] 09/02/2020 07:57:03 PM [facility] Name Value Range Interpretation Code Description Data Fabiola rce(s) Supporting Document(s) Consults [facility] OFHFZu9vPuNKTsUj71/BXZjaIEQhu6UwKWaaAVo4SGgbEVNjG8ZjMDB9sN3cTMO0BEwEPzYrUpGjChK7 lbm [file] AgICAgICAgICAgICAgICAgICAgICAgICAgICAgICAgICAgICAgICAgICAgICAgICAgICAgICANCiAgIC AgICAgICAgICAgICAgICAgICAgICAgICAgICAgICAg ICAgICAgICAgICAgICAgICAgICAgICAgICAgICAgICAgICAgICAgICAgICAgICAgICAgICAgICAgICAg ICAgICANCiAgICAgICAgICAgICAgICAgICAgICAgICAgICAgICAgICAgICAgICAgICAgICAgICAgICAg ICAgICAgICAgICAgICAgICAgICAgICAgICAgICAgIC AgICAgICAgICAgICAgICANCiAgICAgICAgICAgICAgICAgICAgICAgICAgICAgICAgICAgICAgICAgIC AgICAgICAgICAgICAgICAgICAgICAgICAgICAgICAgICAgICAgICAgICAgICAgICAgICAgICAgICANCi AgICAgICAgICAgICAgICAgICAgICAgICAgICAgICAg ICAgICAgICAgICAgICAgICAgICAgICAgICAgICAgICAgICAgICAgICAgICAgICAgICAgICAgICAgICAg ICAgICAgICANCiAgICAgICAgICAgICAgICAgICAgICAgICAgICAgICAgICAgICAgICAgICAgICAgICAg ICAgICAgICAgICAgICAgICAgICAgICAgICAgICAgIC AgICAgICAgICAgICAgICAgICANCiAgICAgICAgICAgICAgICAgICAgICAgICAgICAgICAgICAgICAgIC AgICAgICAgICAgICAgICAgICAgICAgICAgICAgICAgICAgICAgICAgICAgICAgICAgICAgICAgICAgIC ANCiAgICAgICAgICAgICAgICAgICAgICAgICAgICAg ICAgICAgICAgICAgICAgICAgICAgICAgICAgICAgICAgICAgICAgICAgICAgICAgICAgICAgICAgICAg ICAgICAgICAgICANCiAgICAgICAgICAgICAgICAgICAgICAgICAgICAgICAgICAgICAgICAgICAgICAg ICAgICAgICAgICAgICAgICAgICAgICAgICAgICAgIC AgICAgICAgICAgICAgICAgICAgICANCiAgICAgICAgICAgICAgICAgICAgICAgICAgICAgICAgICAgIC AgICAgICAgICAgICAgICAgICAgICAgICAgICAgICAgICAgICAgICAgICAgICAgICAgICAgICAgICAgIC AgICANCjw/qOWeI3znaQDwxzI0Y0hmNs1FRg1HAE3l f7HjCKLcHSbhubSjKzgWQfEwZYQvKucSFgq7AZrdYN0EsNUiR6VqC2BzCJxbNU2KAMZaSEHszFJgISEw NNZsUdU0OLOsBLbzPL9QwGFvFXswVOTrMHPyEzViWYLcSDFtWXOtWNWxNNHSWH7VLdDwZ0QkvF01ECPI Cj4+JKsvinRgVkxANmL9UTZae6XjKNt5IX5KTLCqCj qvh8GzNaScEIKDEYniJJ6BVKZ2MCM5HQDnFr7VYICnN836bsPkUO7FKl4LMoOaXT8hvh8ZMySrUHSyFh cUNgh9CWqbAH5JuANiZBbRt72dkTl0pqUkvAXZxLotjYUAXOweP9lxkrFzWS3XOJR7BDWxEe1tZBYrVJ YpOcS2BNVBKV5CHLUuUHLkkSRrVIBrBPOTRZ5QLOit FFO4WzmlddMesPCfIJccVQ1YQAVlgcQcYjDgKZRFPQh+Gd3GAD2fu1CzQKueQzOaGF5rxt1KGYoYDyCr Z7F0wGSjM4P3UQiwTz5JUOVpEBVyXkNoPZKUMKgfDK2KVE2wsyO9MU4JnDKjXPEwWPOrzMGuODd9J29k mKWnDFssPD5UEOI+Anais+Bu1LDKGlEUXbDDWfImYkGU ANNuFuC7AbU9JRb5PsM5UzWK58uXdjpcWzLJdpZF9PXL1dGDYoWORHCM0CwZEodB0zfqQtVMDeAODGQa BrQ79xgNJzUAOeZJJ1FGCwBx2FFPAbL2YzsaUvbGlufdFlKWFvYLKHLN2HPVefbgHizGFioUhkBH26yD abPX8CJm2PUuZvPB3ztl2MpMGgRh3NZBQtRY9RJFCx MUBxTLCiAHJ6PEJzCgSkNGucDKJkYLPaBMA1TUBwLOTpVL4VMdShUZCwUSy7LMKaRVUeMGUrdv1ERIBs DXMsWEJkWpKyZPHrJOEcUGukUEPiBYKzORJ2GHQnGRXsTW0AXqSeAJXaLYB6HaJhKYOrLQIvvj9FGYZk QNBbGce3ASJxMLDvDDGmRVseEHHeYVG4UKI1DPQjIZ RtFC5QShKlJNPrTBV3BkAaDOYzHNIlxd7KTNTxBVNlNxSyTSUrRUOhLUFnSIgwTVNxORY4PTJ6XEYdRH AqKW3TAqKbUJTbTVx0AKVkICAlZHWyro7HBZRvHSEsXJRxNOTlOIUtWJNkYRnuIWQhYWG0DZvfCZQuUG AvTB2FEaYnZQOnLYBaMJZxMKJbABBxst7MTOItHGTv HXS9VJQoKKPfIHBuQRxnMZUnVMQuJzFtBGUlCIErZM9FUlRiYNKfOZC7JhuiOXNtGPPfqc7HRUSiXEFg ZVzaHGThPZCtXHKtUZmzTDMeOMGsYtH3DJYoUFQkLV6KSiHnIVUiCHR8BYCeRBEaFUNdwq5PZPFmPKOe AtU6MSGgHRWdDFIcXZrmHSXiAQO6MMG8XQTiQESuSN 7ZYqJuELVbKMIwLNUpTPZhIAIuyc2MWCTwHRNlWOZlAzLxVUOwMAYiDKuuGOEpQTL9Tye8IZEiHRSdUD 2IFdFcMVSwYRY1TSFoOXXmBBBikh0IBNCzDQTsCQr3FIPeUMStJSQwFSruJRDxGYU8ArB9VQFmDWBeBS 1USmHfWGIfPHX3LciuYCOhYMDtwp7VFTQoKYZqLpHt LXYeKYIwAQGqINoxTOWjCSD9JHqpEEKhWLQqSC1YIgKdBKMpSDehWBKaEDAsLJCihb6HPAJxCZHiZMY8 XrThDRHdPNOoSUfoWZNvTHV8HAu8PXQeKIYbSL3VZbLxHHExXwD8AwSaVRNyYGIkns8HPULoEEUwUMIi GREnPWCaERHpAWonPEYrPINrSaT2TNPdLNLuJV9BNi SkIBzmHGGMDng3HPzkI4o7TKGnEX9CO6Iwv0TlSpotUDISGGhgUG5bwmMcOJEjSq6OA6vPEgp7Rav7KQ YzSjX4YDKoAHH6SIKdRhW0MTPdLGdoTpEnDM8rYBsrVhb3WWMrKvTsXfA4HkD1RLS2EqxxU2VwZzHrZR J9EjEwFA1NRh1MEmO9AWX3oMFwEz1RZiA2QIHRWjJtPI0LTKo= ID Date Data Source [id number] 09/02/2020 05:02:[address] [facility] Name Value Range Interpretation Code Description Data Fabiola rce(s) Supporting Document(s) Glucose, Fingerstick 354 mg/dl 70-[address] [facility] The above 1 analytes were performed by [facility] [id number] [place] [address],[facility] [id number],[place] [address] ID Date Data Source [id number] 09/02/2020 12:26:[address] [facility] Name Value Range Interpretation Code Description Data Fabiola rce(s) Supporting Document(s) H&P [facility] YEQXVl0dNgZTXwDb07/DSVskHLXct1NfIIusPAt8BRgnOXJhC0PuKXD3rF7xRST6XLwWZcNaWrWrVoD8 lbm [file] ICAgICAgICAgICAgICAgICAgICAgICAgICAgICAgIC AgICAgICAgICAgICAgICAgICAgICAgICAgICAgICAgICAgICAgICAgICAgICAgICAgICAgICAgICAgIC JcNNNwPN4FJNEfRWLbLQKlDOHnNPQgVFSbKIWcFBLdJOQfWEAqLOMxQSPoRNXzXYJhRTOkIRDiCUZkQE AgICAgICAgICAgICAgICAgICAgICAgICAgICAgICAg XWRcURZlIYDlTAYrGMOpTX1LIFOeYAJtNHYwVBFqHJIwGJWkUIXyOBMnFZNgDJWlYYUxHVJeOGSmRSYt MFJfSWShENIxNKQxSISuNUSgUEDoZEKxKOAiGCVkUIPpNPMhCXEhRYFaFJErMXNzIKDcMGFuSMGkFS6A ICAgICAgICAgICAgICAgICAgICAgICAgICAgICAgIC AgICAgICAgICAgICAgICAgICAgICAgICAgICAgICAgICAgICAgICAgICAgICAgICAgICAgICAgICAgIC HvBRCpKLIuWC4TWHUyELNrKSSpWDGoBPQhMMUmRWLaDURqQGSpPZTsYGFuGDKuRVXyPTXzCUVjFUYwHY AgICAgICAgICAgICAgICAgICAgICAgICAgICAgICAg MNCpHDUoIHTzSZBzMGMjMYSfFF4NFBNyUHAjVGHrMOLvISXxMZCcRCVaDJVvTWNoABJgTRJjNVVzTOFs ICAgICAgICAgICAgICAgICAgICAgICAgICAgICAgICAgICAgICAgICAgICAgICAgICAgICAgICAgICAg QL1FGLVdLXCzFMVqQFLfVZQlJONpDBHcNKYtJBUxHI AgICAgICAgICAgICAgICAgICAgICAgICAgICAgICAgICAgICAgICAgICAgICAgICAgICAgICAgICAgIC UwNDSjFYBcHNMxHI1HUPCgVHNbCGUbIVQhUYQbUAXvWPUqAZVjHRPrBOCrSCGtIDTxFBJzIDLwLBMyLO AgICAgICAgICAgICAgICAgICAgICAgICAgICAgICAg WQMuLGDwKBCwFWLfCWUuDWLeQCZrFU5JBLIzSMUdDRUxWYDiYWYzURSlGOKaETPmGPKeWFYkTEDcFHQo ICAgICAgICAgICAgICAgICAgICAgICAgICAgICAgICAgICAgICAgICAgICAgICAgICAgICAgICAgICAg QVUkEB5VVOFyGBTwLTLvZUYyOBSiNGDgWTYwPQJlOC AgICAgICAgICAgICAgICAgICAgICAgICAgICAgICAgICAgICAgICAgICAgICAgICAgICAgICAgICAgIC DoLSKbWYKxMZIlLBDuVG9HKQ47iRExf1O7SSSpYK7qjwc/Gv0VXBvdstFlzYTaPK6LTiFbWG2wbn2OQh KdEZ2gtl2BKAdSPpXsD7O3rPHaEEBoCQHCUfYhL52w GWwaEi39JXasBNRqSmGlHKw5Af9JUyJbT6wmALHtCgL4UEOaYuVsGTejIC6Vx8VzwQAqHSr+Na2EWU3x c4NpCMdsBcRwOA6xfk4UYMfOKkQoW0GynpJ4NZW6HTAuBh8DSQVyHHSycJLzIOVxQLDQQnMeH0ZjwJ42 IDENCj4+RWhkrvBbWslSOnD5FDHpm0LiJIp5SH9KBD FtMVz7cYHqYAAWLTH9NSXbyMOemLUHGLY5tR0sYVebnyPjUZ7ARIF1UKAuGi6bWHFmHYFrUvQtADHFQG 0ELWYgNIZodZUbZXNzDLTNWM7BLIuyCCX1JmwobrKxrETuUEypME2FQUCuyoEjPPbbPXYYZLw+Pg0KZW 2nn9UjUFhxJSXqXP9rwx5BENrWEcWqW3F8qKDyY1D6 TZbdSk3ALFVyVCFsXCScFZWWCEmjXH0FEL3mhpM7VC1UbSWjGRCnWSVovRJhEHk1B93vzFCdGKqjQI8L ICA+Anais+Yw4HRRFjDNMoNKMzBkKvLYCHJhHfG5XrP7KMv5WsM2DtFY07qTqtekHgWRgkKZ8EQB2nBLNt OLENKT3BxPMhaA0tkwDwZcLxBBIEEvMrA19xaUAfPM KcYQG2GOWnZc3PCDYmE4DrohOeoOqfnrPqWFOmFRHFBU1DKUvglqBurQGgtChpYF93mNrmQL2CRf9MBo XxWM8iit3FqUJgBv4PPHGpUK3FLJOfWMRsSYEpGNM7UAPjWrGvUIgeUEBlFQRdUHT8KURjXPDhIS6LAg KzFHBuISjhAJjbBLEwBYRqph2JDWRmNFJzDPK7AnXg TKJhNYVwEMwsZNYuMLBkXNR3QFQcSFAjUX8ULaYuGRTqYWPnFjYgXLCbPUZvio1IQXQbSCMhYdE5XJWv PNWyJMTlJBvnSXHjZSN8NqO3RWEhAVPwLF7KJkRmNAAhBBP3TiedRMJpQEKrxs6ULVIfUCHjGOOxOyFt HSUjSJJzPIdhEBCiDFH7PGmvMQYqJHDdTC3MZtCbUX ThITE2KujxPTWeIQYjek8CJIIvWDLmAMu1XVIiQINtRENbZLjbJNZtUOV0WSR6QRQhKEHwEF7LDpIhLN DhXYwqGNOaBWGqQRHhbr7VUDOyLMQrKkP3DCRqCIAeHBKrLLcjIFGoILC1GbR1XWTvQFCnXQ0CPxEhDR KvANrxUBXvREQiNGDvxr6LUXQvDWFfDCZrVyIrZOZi CHCcBRoyPVXtNBJ8YiR3RXPhTJHtVT4RAzOvZIjrBPSTTzq0NPdxM3y4QHWwFA9KC1Vys2YcIZvnUDSI YDzcSZ8ixcZfMUWsHq7HF2rDAarvMlWbFOG3AON5MZLmHZSzIwBtAAP2Aaq5Z5U4TQSpSv1tIHWmAHOo DMUuVGgwDtB2ZINmVWEtBShqCKu2XPK9IwTuLjBc JN5ZXa1JMvJ1MZQ7hZHzEx6TMUGyMs6ODFSXZ2JYJi== ID Date Data Source [id number] 09/02/2020 11:54:[address] [facility] Name Value Range Interpretation Code Description Data Fabiola rce(s) Supporting Document(s) Glucose, Fingerstick 411 mg/dl 70-[address] [facility] The above 1 analytes were performed by Dimitrios [facility] [id number] [place] [address], ,[place] [address] ID Date Data Source [id number] 09/02/2020 11:52:00 AM [facility] Name Value Range Interpretation Code Description Data Fabiola rce(s) Supporting Document(s) Glucose, Fingerstick 411 mg/dl 70-[address] [facility] The above 1 analytes were performed by [facility] [id number] [place] [address], ,[place] [address] ID Date Data Source [id number] 09/02/2020 09:41:46 AM [facility] Name Value Range Interpretation Code Description Data Fabiola rce(s) Supporting Document(s) Nursing Note [facility] IUBTNw7mHrHUMfZu46/DETchJSUhs0DsZEgcZLb9YBywHOEtY6DkUZQ2mT7wRAV3SIqUQdUrIzOmEcY8 lbm [file] VTv2OsSkVM1XHe0RQfO9AML3oTAwDl2QRkQ9RQBNAjYyCX8QUMp= ID Date Data Source [id number] 09/02/2020 08:43:[address] [facility] Name Value Range Interpretation Code Description Data Fabiola rce(s) Supporting Document(s) Nursing Note [facility] USZUPo9xJcURZzYh40/GIThnMPVtq8ObAHuoSQy9UQfnXGZkM4NgZQF2cI3nMMG6IZdNDxNjYiHzWmI3 lbm [file] AgICAgICAgICAgICAgICAgICAgICAgICAgICAgICAg ICAgICAgICAgICAgICAgICAgICAgICAgICAgICAgICAgICAgICAgICAgICAgICAgICAgICAgDQogICAg ICAgICAgICAgICAgICAgICAgICAgICAgICAgICAgICAgICAgICAgICAgICAgICAgICAgICAgICAgICAg ICAgICAgICAgICAgICAgICAgICAgICAgICAgICAgIC AgICAgDQogICAgICAgICAgICAgICAgICAgICAgICAgICAgICAgICAgICAgICAgICAgICAgICAgICAgIC AgICAgICAgICAgICAgICAgICAgICAgICAgICAgICAgICAgICAgICAgICAgICAgDQogICAgICAgICAgIC AgICAgICAgICAgICAgICAgICAgICAgICAgICAgICAg ICAgICAgICAgICAgICAgICAgICAgICAgICAgICAgICAgICAgICAgICAgICAgICAgICAgICAgICAgDQog ICAgICAgICAgICAgICAgICAgICAgICAgICAgICAgICAgICAgICAgICAgICAgICAgICAgICAgICAgICAg ICAgICAgICAgICAgICAgICAgICAgICAgICAgICAgIC AgICAgICAgDQogICAgICAgICAgICAgICAgICAgICAgICAgICAgICAgICAgICAgICAgICAgICAgICAgIC AgICAgICAgICAgICAgICAgICAgICAgICAgICAgICAgICAgICAgICAgICAgICAgICAgDQogICAgICAgIC AgICAgICAgICAgICAgICAgICAgICAgICAgICAgICAg ICAgICAgICAgICAgICAgICAgICAgICAgICAgICAgICAgICAgICAgICAgICAgICAgICAgICAgICAgICAg DQogICAgICAgICAgICAgICAgICAgICAgICAgICAgICAgICAgICAgICAgICAgICAgICAgICAgICAgICAg ICAgICAgICAgICAgICAgICAgICAgICAgICAgICAgIC AgICAgICAgICAgDQogICAgICAgICAgICAgICAgICAgICAgICAgICAgICAgICAgICAgICAgICAgICAgIC AgICAgICAgICAgICAgICAgICAgICAgICAgICAgICAgICAgICAgICAgICAgICAgICAgICAgDQogICAgIC AgICAgICAgICAgICAgICAgICAgICAgICAgICAgICAg ICAgICAgICAgICAgICAgICAgICAgICAgICAgICAgICAgICAgICAgICAgICAgICAgICAgICAgICAgICAg IORbERg9L9bpRYFrDJHdVD1pQHs1Pc6+OKcJSrEjATA6lgTmzT9VTK6ks1WcCKfgUIEit4VaWIv1YD1P PHFaDPseCX1JBDtate9JLNLwHDOnvPFSg4jfOzErTG L8JTCaRznuEB7LAANjU9bxfiWdKOGnYEDNQI0SQqMaH5VuxS14GSLXEs8+DQplbmRvYmoNCjIyIDAgb2 BaLEw3KN0TDJZqLtlti3XtFwUkKDPVQDtfNP4BCNQ6TTJyWSWuQo3FUJGdF817jeKsMH4DQe5FCfOzYG 6rlw1DHgSwAFNzHtuWGaw1BDuaRT2QjZQqKUxTtXSm eO9aEL2utJNhAccfW5qnxVG5w1UiDZXoGFTcgzOeVW7nTBIXLXB0SLYhHr5eELYaBOQ6EeDnXYEIUX7Y VNFnEOIidOJaCFEkQEMTEQ9GGWniSCQ6GidpfzQkjHXnPNsdUV2RFKKwzlYnIpUiCLHZNKn+Pb4RVE7q j1KvDRsdUCXsUO1voq3AINeITtAkK6U8yQLxW9D1JF znAx9SRXMvWSUgUwRbXWDJMQfbVP7NRP0ryhU8ER0CxMMjTNPfVNYmpFEaYAw3P93olHBrOEmpFY6QFT A+Anais+Dv1ALXAgCVWjWOAiFjRqRXOCOpVqM0YzA4GEd4DtZ3BhTY60zPlxleVuSEupNL3PMI5lRMZsMI TMZK5FlDBqmE3ojjJsQmMiOXUMLmBmT93mxFZuJMPa LJEzRSFaWc3GFLQsF5IupdFtkRaeryRzXAYdLJFRIF8WCEfgmfThaZPciPhfAQ12fOopMW9UPo3HOaRc UI3han6MsPMxGp5WVYDrJW4SOLQhHRAbLAGfGQK1RATpUkAbCKxlDEFlDLInAGG0WLLiRHPqLG7PMeVe FKGuMWx8OiIlSTRtPSXnxk5RDOSsTDAuWVIqWMRaOB MdNEYyPNhtONLdHKWqMCI5UHHyLGBzGS4JBiOrDZFiNLMyBFFgKVNvEIIdun7EHXXgGKXfRDAxBHUoKQ WlWRGlHJhnGGPpPPYoLbZ0MRWtXCCaSL4VWjRvRELaVVX8DbhfVPElCCDzdt9AZYQzEGWbFbd3DMEiIG UlJQUjRBevMXHyEOZsTjKfIGWeIBFkUJ5UClTuAKCm JWP5HNXyKFZqOTJceu9QQFBsABBuNOX1PiLtWHSuRGBvFUyrOHLmRRZ9MJIeMTQuDTUsIJ3ANlEaVEOu ZSA4XUoiPOGwBODxtx8YCJVqZNAnOkg9DcRfCSJgTZBaMVdkHOAsYST2JaV0ENHrZYEdXK3LOcXaLTIi XXuiFVHzWBDwMADnnf3OKBXtQWHySLG8MTYyLRLjZG AuJZwlWSSmZEG5CFp0HCSjNENdEI6OWsKjCPFnYFt8XULjPQFoCRWphd8JZAZeJBMbQWT8MRAxNCNnWT FiEAgmTEOxREBvKDQ1EVGnAHOaMF6AEnCyBWHoTdZ4UrtxPNCqPBHrhi0TTEKxIOWmMUupIJUsJCLnJS NzUBh4qfCpuDRqXHv8LI4NB7FrwaNrWnQIJe4Ee551 OBZ9VJZuSg3LY3wxOq2dYRHbZRFOPa0CFUj1N6EbIcB0NoPwWLFfIACaTNNvVuKiEMIzSTQsUEVhLix+ UYocBESpVJinA2BfIRU1CYUnAoU1A9AqMILzQbN5EZOiBN2eDXKQYl5+DQpzdGFydHhyZWYNCjIwOTcz RQesGKEQVy3M ID Date Data Source [id number] 09/02/2020 08:43:[address] [facility] Name Value Range Interpretation Code Description Data Fabiola rce(s) Supporting Document(s) Nursing Note [facility] CSSJXf3cHkQDLhRl38/KBIvhXJHqo4HbHBssUMe0USkvIDZaQ7UhKAE7fZ8aWZT6KTmBPsStNpEjXoF3 lbm HeJrqAEhBoOKPmIkjEQpAtHIntZjpxnWRpFT8WcIS9FSPmB76iXHNkCFFzI6BlMJN2Mvh+Co7SZRCwqA GyNQ0WXjgI6Hqtk+O48b1A/tBfyAEvaC0I1oqTllFD1Ov9JxcbDbuxJQxjZRygwvzdivX20enr9z0xPR WQW5SxnCcus7Mb++JTYQ9IW6CmW7ZX2c/+bB6O47Ee Vv7f/UzCwr1C7A6/YO0wV+yGtX+hUpND9JpxlR/Qf7r8/gvHkRsKH/7scaYXk27ZhaT5SrUcZ1yeFQFx 8nsqbamWt08Q4qMIgmmljS5gzT79lsI8eAHqiM+HHBwZsCqiUw4fq9b/Gon1mMjH2beDqrxsFgusPS5b f2jULKVEycJONEifReMHsgGqKWxqGQMD8gADVZRyw/ [file] ICAgICAgICAgICAgICAgICAgICAgICAgICAgICAgICAgICAgICAgICAgICAgICAgICAgICAgICAgICAg ICAgICAgICAgICAgICAgICAgICAgICAgICAgICAgICAgDQogICAgICAgICAgICAgICAgICAgICAgICAg ICAgICAgICAgICAgICAgICAgICAgICAgICAgICAgIC AgICAgICAgICAgICAgICAgICAgICAgICAgICAgICAgICAgICAgICAgICAgDQogICAgICAgICAgICAgIC AgICAgICAgICAgICAgICAgICAgICAgICAgICAgICAgICAgICAgICAgICAgICAgICAgICAgICAgICAgIC AgICAgICAgICAgICAgICAgICAgICAgICAgDQogICAg ICAgICAgICAgICAgICAgICAgICAgICAgICAgICAgICAgICAgICAgICAgICAgICAgICAgICAgICAgICAg ICAgICAgICAgICAgICAgICAgICAgICAgICAgICAgICAgICAgDQogICAgICAgICAgICAgICAgICAgICAg ICAgICAgICAgICAgICAgICAgICAgICAgICAgICAgIC AgICAgICAgICAgICAgICAgICAgICAgICAgICAgICAgICAgICAgICAgICAgICAgDQogICAgICAgICAgIC AgICAgICAgICAgICAgICAgICAgICAgICAgICAgICAgICAgICAgICAgICAgICAgICAgICAgICAgICAgIC AgICAgICAgICAgICAgICAgICAgICAgICAgICAgDQog ICAgICAgICAgICAgICAgICAgICAgICAgICAgICAgICAgICAgICAgICAgICAgICAgICAgICAgICAgICAg ICAgICAgICAgICAgICAgICAgICAgICAgICAgICAgICAgICAgICAgDQogICAgICAgICAgICAgICAgICAg ICAgICAgICAgICAgICAgICAgICAgICAgICAgICAgIC AgICAgICAgICAgICAgICAgICAgICAgICAgICAgICAgICAgICAgICAgICAgICAgICAgDQogICAgICAgIC AgICAgICAgICAgICAgICAgICAgICAgICAgICAgICAgICAgICAgICAgICAgICAgICAgICAgICAgICAgIC AgICAgICAgICAgICAgICAgICAgICAgICAgICAgICAg DQogICAgICAgICAgICAgICAgICAgICAgICAgICAgICAgICAgICAgICAgICAgICAgICAgICAgICAgICAg OEWpNDXdTHKiHZTcPJYvVDVaHOSuZNSkNMGsRXKsVECjTSGfISVzEYRsGRk4S9gwAOXqZVMhYO7iIVj7 Jz8+WCqEMqOwFGY9mcKnkX7VYN8nl7NnRXylOJDou4 YqDKg0RN2RRRXsFPhkDG6QLCcucn6HEFKmGQTjiXETx1kvHuVaMLE6DGUcAxbkOG3INGMfO8mtgiDwVM FgQMAQIKtgYWTJJAzfNPTHQC6HRbBdQ7GasP99DPNHZf8+HUfdfeDiCibQRtR0UPWez3IeGRl7ZP5FBR DoBmfhw7VePjIrFFTYUWmvLO3TWRN4AEO0LCXoPm7S RJSdP700fdLjIZ5ICt0BMpGqBT8maz0FFvZdSIBoMftDRnc4FOuaWH6ZvSIaVEpRdSErpJ4qJW7diKLm NergY2fstAA7s8NtSRPpHAFcvgZbVX6fQMRUQWI5ELMmTr4bGGJgVCS7MhSjQSXLAI5SBTAhRMJbtLOg KDUyOIWXGR9AABvuIFU7YmzkttFyrDNhJPttGJ4FWA JlbnQgMzQgMCBSDQo+Ub8OND0zt4ZyJFnoUeTbJB0rsk8GABaFEwYtB2S2lOHmV6Y2QBnpZy4VRZSrCS RnYyLzASBSDDtpVY9MCI5jpfW4AP8RoPZzCDRdTITmaMRuGQh3X58qsPVeBBopRC3QVXB+Anais+Pg0KIC PeRLZiSBAhZbMaNSPNInEeO0HuJ9WYc2LhW9HtUY43 fZwgeoBeJSrcHL0ZAT5xDGRmYIHJSI0TiKCtnI2liiOaMPTkAENIKlBbR40iiOYhJURwFLIuSKEkYq1O TLIkU4RkwiNjuQgqfaJsTMCpFUVOQX4TDQsaxuDetSGymHwiJT69mTuvFH3CZz2XWeMlDX8mcc7HmVMg Mt9IAYUdQw2HHMFoVTDjQLUkIBY8MKGmAdZyLUueRC YaDBWcGQE7MDIuXVEaPF6PEuNqEZDfIVU3FGFkQGKdUJVxhw4UHDLzQVE0CQWaKfRpDMUvCCUbWHjnLR XkZMKeWLZ9MTOwSVUiUI5GOpXwHLKbBXK3SHOiTTVyPILgya2TBGIbKHDzPjBkBRTtOIZyDFMkCFotES ViQBQ4UgM2FFWdZRUhCX8AGtAjPIGcVAL8BUKbDDGf AJYvol6IIKXvUIBwGkG1OLIeNEVmCJBjJNznSQMiOHR9KpDnACRsKWImCP6TPgMaYASdJCz2MPEfEATt JXSfwm8RQVPoXUKvXzthBxBnQWUgIBOtYBmtBNQvCKJ3YCDoLKBkPVRfPA8ADpUcDMRyPHj0WvZsOLXr IIKqqx6LOFLiZXMnVFK3BANnJSQcGZNpXIcyPLNhUN H1KfXgSHDoWPVfYP9XWhWxTNLcPrY0UAEgGEKaPOLsfr6YDFKzVITnZpDnGqOvJDJiLLLmUWbmAZQeCO ZbUoV3VXNvEAPiVI5EDmJnESNbBoI4VWSxFOEiQVWfpe7FLOIiKQJzGyNqBQEvGCLaKTUpCIenRQCkVS GzIUNmASTbZHUaDI2HLpKeUBIsSnX2LtjdNZVwOYSj sm4RZGKcFLScXjlvJADdNPQnRVOgHBbsEEClLHU7TRI6XDWtNUNiPQ0UEsSjENLkXvShPuWlVTWsDPCd mt4ZHUExMRRoPCHqDyPnQDLqCDHqXMgqSYAlCRH9SbT9FFUuCTKqAP8OOrMmBKOxNALeRNziDIZpWKXj gy4EXHNeNZC9ZQM2GhNpKHOsANUcVMvlAAAyZVV6Tc xaIIOfCBCoIV5FCxGlYZIkBEN1PlYySTQcOWEsxa3YUSWrANW1Xux2TlIcCHIvXJQuBCfdOCBwPKM1AK TmBUUvPYHiRO3LUrJzGKPzPCx8RTBaNYRxHJMfhb0SIOXjRZD4NGW6ImTvQQIjXSGfFVl5gkGlmJCtTQ u7AF8BA1RsixNiIgySNr9Np491BYX2EWHvUr9XW3jy Wp1yMKIrAMNFTq0RQHv2QaO5JUJ2TLO7XnTcBKVnAPFwVVftVdqqXGSiLpoyBNQ+YTikXsq1GMnoNlB4 P2O4BZDvBPBuCRT2U5BlUxFbH9ZyZz9mUPVBIv6+IZzmyIDpvIxjZHOZBsD7XMMnDShcMPWBDj4D ID Date Data Source [id number] 09/02/2020 08:15:[address] [facility] Name Value Range Interpretation Code Description Data Fabiola rce(s) Supporting Document(s) Care Plan [facility] WTFXHy1hYaWIFlOn84/RVYutIOHdz9YpKMguWXp4TOblKLGfS3AhLQL2yZ9qWNR5IVhPQwGaKoVpAqE7 lbm [file] [id number]+AH1cVEu+Rm8Ta0CjiwK7hvTyOPrwTZaoAi4DCSTZB1WCIo== ID Date Data Source [id number] 09/02/2020 07:52:[address] [facility] Name Value Range Interpretation Code Description Data Fabiola rce(s) Supporting Document(s) Glucose, Fingerstick 211 mg/dl 70-[address] [facility] The above 1 analytes were performed by [facility] [address]#: [id number],[place] [address] ID Date Data Source [id number] 09/02/2020 06:20:13 AM [facility] Name Value Range Interpretation Code Description Data Fabiola rce(s) Supporting Document(s) ED Provider Notes [facility] HBNFGh9lMnQTMeAt57/LHXuuPYAgm2TeZKipBHt5XGevUPLvO5ItIKM5wQ5rWRK6JZsCDlIfIwKkSeR0 lbm [file] [id number]r= ID Date Data Source [id number] 09/02/2020 06:05:[address] [facility] Name Value Range Interpretation Code Description Data Fabiola rce(s) Supporting Document(s) Glucose, Fingerstick 205 mg/dl 70-[address] [facility] The above 1 analytes were performed by [facility] [id number] [facility], ,[place] [address] ID Date Data Source [id number] 09/02/2020 12:35:[address] [facility] Name Value Range Interpretation Code Description Data Fabiola rce(s) Supporting Document(s) Glucose, Fingerstick 222 mg/dl 70-[address] [facility] The above 1 analytes were performed by Dimitrios [facility] [id number] [facility], ,[place] [address] ID Date Data Source [id number] 09/01/2020 11:18:[address] [facility] Name Value Range Interpretation Code Description Data Fabiola rce(s) Supporting Document(s) ED Triage Notes [facility] ZWLEYy1aGkGDGrMi24/ZPDyyBDNqs6GzBTrsOZm2ZZziVRJnI0TfGAJ4hG2fRQU9SZxNPrMkBxSlXwP7 lbm [file] AgICAgICAgICAgICAgICAgICAgICAgICAgICAgICAg ICAgICAgICAgICAgICAgICAgICAgICAgICAgDQogICAgICAgICAgICAgICAgICAgICAgICAgICAgICAg ICAgICAgICAgICAgICAgICAgICAgICAgICAgICAgICAgICAgICAgICAgICAgICAgICAgICAgICAgICAg ICAgICAgICAgDQogICAgICAgICAgICAgICAgICAgIC AgICAgICAgICAgICAgICAgICAgICAgICAgICAgICAgICAgICAgICAgICAgICAgICAgICAgICAgICAgIC AgICAgICAgICAgICAgICAgICAgDQogICAgICAgICAgICAgICAgICAgICAgICAgICAgICAgICAgICAgIC AgICAgICAgICAgICAgICAgICAgICAgICAgICAgICAg ICAgICAgICAgICAgICAgICAgICAgICAgICAgICAgDQogICAgICAgICAgICAgICAgICAgICAgICAgICAg ICAgICAgICAgICAgICAgICAgICAgICAgICAgICAgICAgICAgICAgICAgICAgICAgICAgICAgICAgICAg ICAgICAgICAgICAgDQogICAgICAgICAgICAgICAgIC AgICAgICAgICAgICAgICAgICAgICAgICAgICAgICAgICAgICAgICAgICAgICAgICAgICAgICAgICAgIC AgICAgICAgICAgICAgICAgICAgICAgDQogICAgICAgICAgICAgICAgICAgICAgICAgICAgICAgICAgIC AgICAgICAgICAgICAgICAgICAgICAgICAgICAgICAg ICAgICAgICAgICAgICAgICAgICAgICAgICAgICAgICAgDQogICAgICAgICAgICAgICAgICAgICAgICAg ICAgICAgICAgICAgICAgICAgICAgICAgICAgICAgICAgICAgICAgICAgICAgICAgICAgICAgICAgICAg ICAgICAgICAgICAgICAgDQogICAgICAgICAgICAgIC AgICAgICAgICAgICAgICAgICAgICAgICAgICAgICAgICAgICAgICAgICAgICAgICAgICAgICAgICAgIC AgICAgICAgICAgICAgICAgICAgICAgICAgDQogICAgICAgICAgICAgICAgICAgICAgICAgICAgICAgIC AgICAgICAgICAgICAgICAgICAgICAgICAgICAgICAg UMLbVPZmIKNgWRReZGWdEOJhQNKzOQFkYCYeOJSeCCWxDBLoEYf2D6ylIGEpFQOgQU1bISz4Gj1+DQoN ZjGoRXG4vbSzfY8XSF9lc1ApXGorZMAtq4FzEVm9LG8OBEVoBBbxKI0WVRhvmk1DOPBgAZXyqKZWj3fy YsDoNUG9AFUbXlhzDI0KXVMhV7ismmAbBDLpNIGQHF 7PPkJzA9QuvN82JXEJFc1+EOazctGxMkdYNuS3VBJcb1CaTAn6LV8YGQKdWkxsx2KfCDdrKCSPZFqjDO 3DSOE4NTP1KXOdWs1GVNAeU114emGgZV9TLp6HNyJpCH8vjh9VEHnpDHNqSalDCms5HPnjUL5UuHUhPU yVLBEYkkpkZ7IaDg40VZQtSctcEkFexpTaR1UptLYq CPRETTE5WXOxQt5eQGMdYUPzJqS0XIJDLJ1QPPAgGYJkhULqGMWoYACECT8VCEkuGEF3DyhcmjVdbKYl CLbcJR2UWQUsnnXaVGzuTPPSVTp+Nr9SRL5mk8LwIOejJRCeKV9uxc0PHCkGCySdZ4E9nGJfB3Q5WFqo El0YPMWhVBGmLZJpTCTZFCgsFU1TTG3zpaG2BV6BfC RkJAMoMQZplOKdMHq7V24thUJpPEpzJA9FGYS+Anais+Al5JISYhRYNmFSQuXmJxIFNSTgEmY1TbL4WVe8 KgY7PtUG29mJmibsZmADjhIW7TUV6mJPQfWDJCBZ0SwOLklT5ghoFtUrNfGTFJHtRdW53qdUFvBFYxID X0WOXwTh2WGLXqW7MxfcGliKrjahTkIHZsKJZRHL0F WFhkoeSooQWiqFxzPH82nFfeEV1KUr4RTbYzTX3ucb9PgUZxQq1CSHLrYR5VQOIoHNQlGANjXMF0EXIq DiHlMUruOOOlDXAdUKE1WUSvNLEtAQ1KIgXcVPKoJDX5UPAaAKIgKSVhao0FBCMyYYZoLnW5JyNvSUQl AQJzKBunSIVsIGDuLWC9WEZuXFXkDX0HTqRdGVPzIR RgYsEoMTIzDEQvzg4QLHOjIYRuNSU9EURtPZHwLZWjXGokZPVnZLVsJRQaAKEnMWPsLH7XPmHwUZSsWV Y2MtRrILNzDSOfve7LXNJuBVVkKipoNIXcQGYxOKQbVEkzPKKlKGFfMPF7ZQXeIFXtGH7DSdThWNDxAE YiRzCfYWSqBYKvel9FJEYfNVYtSNB2AaOhWLIuGUFz ZWetFSSwKNF4ZfE3VZPoNDDiCH9GRwSjXTGfBBL5XIMoBVXqQEXnso5EBUUaGLXdHZT7ZBYaNSZcCCAl JGhyYRAaZVS2GAJwXCBpLFBnXK4SEmLkKGXxVKx4FTImBZUuCQRenz1UEKPzVXYbBfWqQIBnMBRnSJRr XBirVWHgHOM5GoX8QWTcIMOsIA6GXeFpHObyJCTDLq g8JFeuD1q4LXQrRI4VN8Pll7BvRLhqBVWJNBlwNW5mxgFmWTJfGd9TN2lENkehLHKpFotwSAAzIRNbAw TqHPErUdp7UCwhQVIvV8HaCr9vLRScJqI2FWDxCfMxNNHhP6XjFqS4LUl6F7Q1GCKwULNdJgYzEX7RNn 8ZWuP7LUF4bTCcBu8HEkeuXD8GXAEDK1QFVx== ID Date Data Source [id number] 09/01/2020 06:11:00 PM EST [place] ([facility]) Name Value Range Interpretation Code Description Data Fabiola rce(s) Supporting Document(s) bedside glucose 139 mg/dL 70-105 Above high normal Bedside Gluco se [place] ([facility]) ID Date Data Source [id number] 09/01/2020 06:11:00 PM EST [place] ([facility]) Name Value Range Interpretation Code Description Data Fabiola rce(s) Supporting Document(s) bedside glucose 139 mg/dL 70-105 Above high normal Bedside Gluco se [place] ([facility]) ID Date Data Source [id number] 09/01/2020 06:11:00 PM EST [place] ([facility]) Name Value Range Interpretation Code Description Data Fabiola rce(s) Supporting Document(s) bedside glucose 139 mg/dL 70-105 Above high normal Bedside Gluco se [facility]) ID Date Data Source [id number] 09/01/2020 02:35:00 PM EST [facility] Name Value Range Interpretation Code Description Data Fabiola rce(s) Supporting Document(s) SARS coronavirus 2 RNA [Presence] in Res piratory specimen by WILEY with probe detection NEGATIVE [facility] This lab was ordered by [facility] a nd reported by [facility]. ID Date Data Source [id number] 06/13/2020 01:30:00 PM EST [place] ([facility]) Name Value Range Interpretation Code Description Data Fabiola rce(s) Supporting Document(s) summary final . Summary [place] ([facility]) ID Date Data Source [id number] 06/13/2020 01:30:00 PM EST [place] ([facility]) Name Value Range Interpretation Code Description Data Fabiola rce(s) Supporting Document(s) Hemoglobin A1c/Hemoglobin.total in Blood 9.7 % Hemoglobin a1C [facility] ([facility]) estimated average glucose 232 mg/dL 60-110 Above high norm al Estimated Average Glucose [facility] ([facility]) ID Date Data Source [id number] 06/13/2020 01:30:00 PM EST [place] ([facility]) Name Value Range Interpretation Code Description Data Fabiola rce(s) Supporting Document(s) glucose, fasting 142 mg/dL 70-100 Above high normal Glucose, Fas ting [facility] ([facility]) blood urea nitrogen 15 mg/dL 7-18 Blood Urea Nitro gen [facility] ([facility]) glomerular filtration rate > 60.0 >56 Glomerula r Filtration Rate [facility] ([facility]) creatinine for GFR 1.02 mg/dL 0.70-1.30 Creatinine for GF R [place] ([facility]) potassium serum 3.6 mEq/L 3.5-5.1 Potassium Serum ATHE NA ([facility]) chloride level 108 mEq/L 98-107 Above high normal Chloride Level [facility] ([facility]) sodium level 143 mEq/L 136-145 Sodium Level [facility] ([facility]) anion gap 9 mEq/L 8-16 Anion Gap [facility] ([facility]) AST/SGOT 26 U/L 7-37 AST/SGOT [place] ([facility]) carbon dioxide level 26 mEq/L 21-32 Carbon Dioxide Level [facility] ([facility]) calcium level 9.1 mg/dL 8.5-10.1 Calcium Level [facility] ( [facility]) alkaline phosphatase 65 U/L 45-117 Alkaline Phosph atase [facility] ([facility]) bilirubin,total 0.1 mg/dL 0.2-1.0 Below low normal Bilirubin,tota l [facility] ([facility]) ALT/SGPT 38 U/L 12-78 ALT/SGPT [place] ([facility]) albumin/globulin ratio Albumin/globu liz Ratio [facility] ([facility]) total protein 7.2 gm/dL 6.4-8.2 Total Protein [facility] ( [facility]) albumin 3.5 gm/dL 3.2-5.2 Albumin [facility] ([facility]) ID Date Data Source [id number] 06/13/2020 01:30:00 PM EST [place] ([facility]) Name Value Range Interpretation Code Description Data Fabiola rce(s) Supporting Document(s) summary final . Summary [facility] ([facility]) ID Date Data Source [id number] 06/13/2020 01:30:00 PM EST [place] ([facility]) Name Value Range Interpretation Code Description Data Fabiola rce(s) Supporting Document(s) Hemoglobin A1c/Hemoglobin.total in Blood 9.7 % Hemoglobin a1C [facility] ([facility]) estimated average glucose 232 mg/dL 60-110 Above high norm al Estimated Average Glucose [facility] ([facility]) ID Date Data Source [id number] 06/13/2020 01:30:00 PM EST [place] ([facility]) Name Value Range Interpretation Code Description Data Fabiola rce(s) Supporting Document(s) glucose, fasting 142 mg/dL 70-100 Above high normal Glucose, Fas ting [facility] ([facility]) glomerular filtration rate > 60.0 >56 Glomerula r Filtration Rate [facility] ([facility]) blood urea nitrogen 15 mg/dL 7-18 Blood Urea Nitro gen [facility] ([facility]) creatinine for GFR 1.02 mg/dL 0.70-1.30 Creatinine for GF R [facility] ([facility]) potassium serum 3.6 mEq/L 3.5-5.1 Potassium Serum ATHE NA ([facility]) chloride level 108 mEq/L 98-107 Above high normal Chloride Level [facility] ([facility]) sodium level 143 mEq/L 136-145 Sodium Level [facility] ([facility]) anion gap 9 mEq/L 8-16 Anion Gap [facility] ([facility]) calcium level 9.1 mg/dL 8.5-10.1 Calcium Level [facility] ( [facility]) carbon dioxide level 26 mEq/L 21-32 Carbon Dioxide Level [facility] ([facility]) alkaline phosphatase 65 U/L 45-117 Alkaline Phosph atase [facility] ([facility]) AST/SGOT 26 U/L 7-37 AST/SGOT [facility] ([facility]) ALT/SGPT 38 U/L 12-78 ALT/SGPT [facility] ([facility]) bilirubin,total 0.1 mg/dL 0.2-1.0 Below low normal Bilirubin,tota l [facility] ([facility]) total protein 7.2 gm/dL 6.4-8.2 Total Protein [facility] ( [facility]) albumin 3.5 gm/dL 3.2-5.2 Albumin [facility] ([facility]) albumin/globulin ratio Albumin/globu liz Ratio [facility] ([facility]) ID Date Data Source [id number] 06/13/2020 01:30:00 PM EST [place] ([facility]) Name Value Range Interpretation Code Description Data Fabiola rce(s) Supporting Document(s) summary final . Summary [facility] ([facility]) ID Date Data Source [id number] 06/13/2020 01:30:00 PM EST [place] ([facility]) Name Value Range Interpretation Code Description Data Fabiola rce(s) Supporting Document(s) Hemoglobin A1c/Hemoglobin.total in Blood 9.7 % Hemoglobin a1C [facility] ([facility]) estimated average glucose 232 mg/dL 60-110 Above high norm al Estimated Average Glucose [facility] ([facility]) ID Date Data Source [id number] 06/13/2020 01:30:00 PM EST [place] ([facility]) Name Value Range Interpretation Code Description Data Fabiola rce(s) Supporting Document(s) glucose, fasting 142 mg/dL 70-100 Above high normal Glucose, Fas ting [facility] ([facility]) blood urea nitrogen 15 mg/dL 7-18 Blood Urea Nitro gen [facility] ([facility]) creatinine for GFR 1.02 mg/dL 0.70-1.30 Creatinine for GF R [facility] ([facility]) glomerular filtration rate > 60.0 >56 Glomerula r Filtration Rate [facility] ([facility]) sodium level 143 mEq/L 136-145 Sodium Level [facility] ([facility]) potassium serum 3.6 mEq/L 3.5-5.1 Potassium Serum ATHE NA ([facility]) carbon dioxide level 26 mEq/L 21-32 Carbon Dioxide Level [facility] ([facility]) chloride level 108 mEq/L 98-107 Above high normal Chloride Level [facility] ([facility]) AST/SGOT 26 U/L 7-37 AST/SGOT [facility] ([facility]) anion gap 9 mEq/L 8-16 Anion Gap [facility] ([facility]) calcium level 9.1 mg/dL 8.5-10.1 Calcium Level [facility] ( [facility]) bilirubin,total 0.1 mg/dL 0.2-1.0 Below low normal Bilirubin,tota l [place] ([facility]) alkaline phosphatase 65 U/L 45-117 Alkaline Phosph atase [facility] ([facility]) ALT/SGPT 38 U/L 12-78 ALT/SGPT [facility] ([facility]) albumin 3.5 gm/dL 3.2-5.2 Albumin [facility] ([facility]) total protein 7.2 gm/dL 6.4-8.2 Total Protein [facility] ( [facility]) albumin/globulin ratio Albumin/globu liz Ratio [facility] ([facility]) ID Date Data Source [id number] 06/13/2020 12:57:00 PM EST [place] ([facility]) Name Value Range Interpretation Code Description Data Fabiola rce(s) Supporting Document(s) Blood Glucose: mg/dl Blood Glucose: mg/dl [facility] ([facility]) ID Date Data Source [id number] 06/13/2020 12:57:00 PM EST [place] ([facility]) Name Value Range Interpretation Code Description Data Fabiola rce(s) Supporting Document(s) Blood Glucose: mg/dl Blood Glucose: mg/dl [facility] ([facility]) ID Date Data Source [id number] 06/13/2020 12:57:00 PM EST [place] ([facility]) Name Value Range Interpretation Code Description Data Fabiola rce(s) Supporting Document(s) Blood Glucose: mg/dl Blood Glucose: mg/dl [facility] ([facility]) ID Date Data Source [id number] 05/31/2020 08:40:00 AM EST [place] ([facility]) Name Value Range Interpretation Code Description Data Fabiola rce(s) Supporting Document(s) amphetamines level urine negative negative Amphetamine s Level Urine [facility] ([facility]) benzodiazepines urine negative negative Benzodiazepine s Urine [facility] ([facility]) barbiturates urine negative negative Barbiturates Urin e [facility] ([facility]) methadone urine negative negative Methadone Urine ATHE NA ([facility]) cannabinoids urine negative negative Cannabinoids Urin e [facility] ([facility]) cocaine metabolite urine negative negative Cocaine Met abolite Urine [facility] ([facility]) opiates urine negative negative Opiates Urine [facility] ( [facility]) phencyclidine urine negative negative Phencyclidine Ur ine [facility] ([facility]) ID Date Data Source [id number] 05/31/2020 08:40:00 AM EST [place] ([facility]) Name Value Range Interpretation Code Description Data Fabiola rce(s) Supporting Document(s) amphetamines level urine negative negative Amphetamine s Level Urine [facility] ([facility]) cocaine metabolite urine negative negative Cocaine Met abolite Urine [facility] ([facility]) benzodiazepines urine negative negative Benzodiazepine s Urine [facility] ([facility]) barbiturates urine negative negative Barbiturates Urin e [facility] ([facility]) cannabinoids urine negative negative Cannabinoids Urin e [facility] ([facility]) phencyclidine urine negative negative Phencyclidine Ur ine [facility] ([facility]) methadone urine negative negative Methadone Urine ATHE NA ([facility]) opiates urine negative negative Opiates Urine [facility] ( [facility]) ID Date Data Source [id number] 05/31/2020 08:40:00 AM EST [place] ([facility]) Name Value Range Interpretation Code Description Data Fabiola rce(s) Supporting Document(s) amphetamines level urine negative negative Amphetamine s Level Urine [facility] ([facility]) benzodiazepines urine negative negative Benzodiazepine s Urine [facility] ([facility]) cannabinoids urine negative negative Cannabinoids Urin e [facility] ([facility]) barbiturates urine negative negative Barbiturates Urin e [facility] ([facility]) opiates urine negative negative Opiates Urine [facility] ( [facility]) cocaine metabolite urine negative negative Cocaine Met abolite Urine [facility] ([facility]) phencyclidine urine negative negative Phencyclidine Ur ine [facility] ([facility]) methadone urine negative negative Methadone Urine ATHE NA ([facility]) ID Date Data Source [id number] 05/31/2020 08:40:00 AM EST [place] ([facility]) Name Value Range Interpretation Code Description Data Fabiola rce(s) Supporting Document(s) amphetamines level urine negative negative Amphetamine s Level Urine [facility] ([facility]) cannabinoids urine negative negative Cannabinoids Urin e [facility] ([facility]) barbiturates urine negative negative Barbiturates Urin e [facility] ([facility]) benzodiazepines urine negative negative Benzodiazepine s Urine [facility] ([facility]) cocaine metabolite urine negative negative Cocaine Met abolite Urine [facility] ([facility]) phencyclidine urine negative negative Phencyclidine Ur ine [facility] ([facility]) opiates urine negative negative Opiates Urine [facility] ( [facility]) methadone urine negative negative Methadone Urine [facility]son [place] ([facility]) ID Date Data Source [id number] 05/31/2020 07:16:00 AM EST [place] ([facility]) Name Value Range Interpretation Code Description Data Fabiola rce(s) Supporting Document(s) salicylate level 3.4 mg/dL 5.0-30.0 Below low normal Salicylate [place] [facility] ([facility]) ID Date Data Source [id number] 05/31/2020 07:16:00 AM EST [place] ([facility]) Name Value Range Interpretation Code Description Data Fabiola rce(s) Supporting Document(s) ethyl alcohol (ethanol) < 0.003 0.000-0.010 Ethyl Alcoh ol (Ethanol) [facility] ([facility]) ID Date Data Source [id number] 05/31/2020 07:16:00 AM EST [place] ([facility]) Name Value Range Interpretation Code Description Data Fabiola rce(s) Supporting Document(s) CPK creatine phosphokinase 967 U/L 39-308 Above high nor mal CPK Creatine Phosphokinase [facility] ([facility]) ID Date Data Source [id number] 05/31/2020 07:16:00 AM EST [place] ([facility]) Name Value Range Interpretation Code Description Data Fabiola rce(s) Supporting Document(s) glucose, fasting 226 mg/dL 70-100 Above high normal Glucose, Fas ting [facility] ([facility]) blood urea nitrogen 23 mg/dL 7-18 Above high normal Blood Ure a Nitrogen [facility] ([facility]) potassium serum 4.2 mEq/L 3.5-5.1 Potassium Serum ATHE NA ([facility]) creatinine for GFR 1.10 mg/dL 0.70-1.30 Creatinine for GF R [facility] ([facility]) glomerular filtration rate > 60.0 >56 Glomerula r Filtration Rate [facility] ([facility]) sodium level 136 mEq/L 136-145 Sodium Level [facility] ([facility]) chloride level 101 mEq/L 98-107 Chloride Level [facility] ([facility]) carbon dioxide level 25 mEq/L 21-32 Carbon Dioxide Level [facility] ([facility]) anion gap 10 mEq/L 8-16 Anion Gap [facility] ([facility]) calcium level 9.7 mg/dL 8.5-10.1 Calcium Level [facility] ( [facility]) ID Date Data Source [id number] 05/31/2020 07:16:00 AM EST [place] ([facility]) Name Value Range Interpretation Code Description Data Fabiola rce(s) Supporting Document(s) AST/SGOT 25 U/L 7-37 AST/SGOT [facility] ([facility]) ALT/SGPT 20 U/L 12-78 ALT/SGPT [facility] ([facility]) alkaline phosphatase 62 U/L 45-117 Alkaline Phosph atase [facility] ([facility]) bilirubin,direct 0.2 mg/dL 0.0-0.2 Bilirubin,direct AT [facility]) total protein 8.4 gm/dL 6.4-8.2 Above high normal Total Protein A [facility] ([facility]) bilirubin,total 0.6 mg/dL 0.2-1.0 Bilirubin,total ATHE NA ([facility]) albumin/globulin ratio Albumin/globu liz Ratio [facility] ([facility]) albumin 4.2 gm/dL 3.2-5.2 Albumin [facility] ([facility]) ID Date Data Source [id number] 05/31/2020 07:16:00 AM EST [place] ([facility]) Name Value Range Interpretation Code Description Data Fabiola rce(s) Supporting Document(s) white blood count 10.0 10 4.0-10.0 White Blood Count [facility] ([facility]) red blood count 4.88 10 4.30-6.10 Red Blood Count ATHE NA ([facility]) hematocrit 43.5 % 42.0-52.0 Hematocrit [facility] ([facility]) mean corpuscular volume 89.1 fL 80.0-96.0 Mean Corpusc ular Volume [facility] ([facility]) hemoglobin 14.2 g/dL 13.5-17.5 Hemoglobin [facility] ([facility]) red cell distribution width 12.8 % 11.5-14.5 Red Cell Distribution Width [facility] ([facility]) platelet count, automated 235 10 150-450 Platelet C ount, Automated [facility] ([facility]) mean corpuscular HGB conc 32.6 g/dL 32.0-36.5 Mean Corpu scular HGB Conc [facility] ([facility]) mean corpuscular hemoglobin 29.1 pg 27.0-33.0 Mean Cor puscular Hemoglobin [facility] ([facility]) mono % 7.4 % 0.0-5.0 Above high normal [place] % [facility] ([facility]) lymph % 18.0 % 24.0-44.0 Below low normal Lymph % [facility] ( [facility]) neutrophils % 73.6 % 36.0-66.0 Above high normal Neutrophils % A THENA ([facility]) immature granulocyte % 0.3 % 0-3.0 Immature Gran ulocyte % [facility] ([facility]) nucleated red blood cell % 0.0 % 0-0 Nucleated Red Blood Cell % [facility] ([facility]) baso % 0.4 % 0.0-1.0 Baso % [facility] ([facility]) eos % 0.3 % 0.0-3.0 Eos % [facility] ([facility]) neutrophils # 7.4 10 1.5-8.5 Neutrophils # [facility] ( [facility]) lymph # 1.8 10 1.5-5.0 Lymph # [facility] ([facility]) mono # 0.7 10 0.0-0.8 [place] # [facility] ([facility]) eos # 0.0 10 0.0-0.5 Eos # [facility] ([facility]) baso # 0.0 10 0.0-0.2 Baso # [facility] ([facility]) ID Date Data Source [id number] 05/31/2020 07:16:00 AM EST [facility] ([facility]) Name Value Range Interpretation Code Description Data Fabiola rce(s) Supporting Document(s) thyroid stimulating hormone 0.474 uIU/mL 0.358-3.740 Thyroid Stimulating Hormone MARTIR ([facility]) ID Date Data Source [id number] 05/31/2020 07:16:00 AM EST MARTIR ([facility]) Name Value Range Interpretation Code Description Data Fabiola rce(s) Supporting Document(s) acetaminophen level < 2.0 10.0-30.0 Below low normal Acetaminop hen Level MARTIR ([facility]) ID Date Data Source [id number] 05/31/2020 07:16:00 AM EST MARTIR ([facility]) Name Value Range Interpretation Code Description Data Fabiola rce(s) Supporting Document(s) salicylate level 3.4 mg/dL 5.0-30.0 Below low normal Salicylate [place] dar[place] MARTIR ([facility]) ID Date Data Source [id number] 05/31/2020 07:16:00 AM EST MARTIR ([facility]) Name Value Range Interpretation Code Description Data Fabiola rce(s) Supporting Document(s) ethyl alcohol (ethanol) < 0.003 0.000-0.010 Ethyl Alcoh ol (Ethanol) MARTIR ([facility]) ID Date Data Source [id number] 05/31/2020 07:16:00 AM EST MARTIR ([facility]) Name Value Range Interpretation Code Description Data Fabiola rce(s) Supporting Document(s) CPK creatine phosphokinase 967 U/L 39-308 Above high nor mal CPK Creatine Phosphokinase MARTIR ([facility]) ID Date Data Source [id number] 05/31/2020 07:16:00 AM EST MARTIR ([facility]) Name Value Range Interpretation Code Description Data Fabiola rce(s) Supporting Document(s) glucose, fasting 226 mg/dL 70-100 Above high normal Glucose, Fas ting MARTIR ([facility]) creatinine for GFR 1.10 mg/dL 0.70-1.30 Creatinine for GF R MARTIR ([facility]) glomerular filtration rate > 60.0 >56 Glomerula r Filtration Rate MARTIR ([facility]) sodium level 136 mEq/L 136-145 Sodium Level MARTIR ([facility]) blood urea nitrogen 23 mg/dL 7-18 Above high normal Blood Ure a Nitrogen MARTIR ([facility]) carbon dioxide level 25 mEq/L 21-32 Carbon Dioxide Level [place] ([facility]) anion gap 10 mEq/L 8-16 Anion Gap MARTIR ([facility]) potassium serum 4.2 mEq/L 3.5-5.1 Potassium Serum [facility] ([facility]) chloride level 101 mEq/L 98-107 Chloride Level [place] ([facility]) calcium level 9.7 mg/dL 8.5-10.1 Calcium Level [place] ( [facility]) ID Date Data Source [id number] 05/31/2020 07:16:00 AM EST MARTIR ([facility]) Name Value Range Interpretation Code Description Data Fabiola rce(s) Supporting Document(s) AST/SGOT 25 U/L 7-37 AST/SGOT [facility] ([facility]) alkaline phosphatase 62 U/L 45-117 Alkaline Phosph atase [place] ([facility]) bilirubin,total 0.6 mg/dL 0.2-1.0 Bilirubin,total [place] ([facility]) bilirubin,direct 0.2 mg/dL 0.0-0.2 Bilirubin,direct AT [facility]) ALT/SGPT 20 U/L 12-78 ALT/SGPT [facility]IR ([facility]) albumin 4.2 gm/dL 3.2-5.2 Albumin MARTIR ([facility]) total protein 8.4 gm/dL 6.4-8.2 Above high normal Total Protein A THENA ([facility]) albumin/globulin ratio Albumin/globu liz Ratio [facility]IR ([facility]) ID Date Data Source [id number] 05/31/2020 07:16:00 AM EST MARTIR ([facility]) Name Value Range Interpretation Code Description Data Fabiola rce(s) Supporting Document(s) red blood count 4.88 10 4.30-6.10 Red Blood Count ATHE NA ([facility]) white blood count 10.0 10 4.0-10.0 White Blood Count MARTIR ([facility]) hemoglobin 14.2 g/dL 13.5-17.5 Hemoglobin MARTIR ([facility]) hematocrit 43.5 % 42.0-52.0 Hematocrit MARTIR ([facility]) mean corpuscular volume 89.1 fL 80.0-96.0 Mean Corpusc ular Volume MARTIR ([facility]) red cell distribution width 12.8 % 11.5-14.5 Red Cell Distribution Width MARTIR ([facility]) platelet count, automated 235 10 150-450 Platelet C ount, Automated MARTIR ([facility]) mean corpuscular hemoglobin 29.1 pg 27.0-33.0 Mean Cor puscular Hemoglobin MARTIR ([facility]) mean corpuscular HGB conc 32.6 g/dL 32.0-36.5 Mean Corpu scular HGB Conc MARTIR ([facility]) neutrophils % 73.6 % 36.0-66.0 Above high normal Neutrophils % A THENA ([facility]) lymph % 18.0 % 24.0-44.0 Below low normal Lymph % MARTIR ( [facility]) mono % 7.4 % 0.0-5.0 Above high normal [place] % MARTIR ([facility]) eos % 0.3 % 0.0-3.0 Eos % M[facility] ([facility]) baso % 0.4 % 0.0-1.0 Baso % MARTIR ([facility]) nucleated red blood cell % 0.0 % 0-0 Nucleated Red Blood Cell % MARTIR ([facility]) immature granulocyte % 0.3 % 0-3.0 Immature Gran ulocyte % MARTIR ([facility]) mono # 0.7 10 0.0-0.8 [place] # MARTIR ([facility]) lymph # 1.8 10 1.5-5.0 Lymph # MARTIR ([facility]) neutrophils # 7.4 10 1.5-8.5 Neutrophils # MARTIR ( [facility]) eos # 0.0 10 0.0-0.5 Eos # MARTIR ([facility]) baso # 0.0 10 0.0-0.2 Baso # [facility]ARTIR ([facility]) ID Date Data Source [id number] 05/31/2020 07:16:00 AM EST [place] ([facility]) Name Value Range Interpretation Code Description Data Fabiola rce(s) Supporting Document(s) thyroid stimulating hormone 0.474 uIU/mL 0.358-3.740 Thyroid Stimulating Hormone MARTIR ([facility]) ID Date Data Source [id number] 05/31/2020 07:16:00 AM EST [place] ([facility]) Name Value Range Interpretation Code Description Data Fabiola rce(s) Supporting Document(s) acetaminophen level < 2.0 10.0-30.0 Below low normal Acetaminop hen Level [place] ([facility]) ID Date Data Source [id number] 05/31/2020 07:16:00 AM EST [place] ([facility]) Name Value Range Interpretation Code Description Data Fabiola rce(s) Supporting Document(s) salicylate level 3.4 mg/dL 5.0-30.0 Below low normal Salicylate [place] MARTIR ([facility]) ID Date Data Source [id number] 05/31/2020 07:16:00 AM EST M[facility]IR ([facility]) Name Value Range Interpretation Code Description Data Fabiola rce(s) Supporting Document(s) ethyl alcohol (ethanol) < 0.003 0.000-0.010 Ethyl Alcoh ol (Ethanol) [place] ([facility]) ID Date Data Source [id number] 05/31/2020 07:16:00 AM EST M[facility]IR ([facility]) Name Value Range Interpretation Code Description Data Fabiola rce(s) Supporting Document(s) CPK creatine phosphokinase 967 U/L 39-308 Above high nor mal CPK Creatine Phosphokinase [place] ([facility]) ID Date Data Source [id number] 05/31/2020 07:16:00 AM EST MARTIR ([facility]) Name Value Range Interpretation Code Description Data Fabiola rce(s) Supporting Document(s) glucose, fasting 226 mg/dL 70-100 Above high normal Glucose, Fas ting MARTIR ([facility]) blood urea nitrogen 23 mg/dL 7-18 Above high normal Blood Ure a Nitrogen [place] ([facility]) creatinine for GFR 1.10 mg/dL 0.70-1.30 Creatinine for GF R MARTIR ([facility]) glomerular filtration rate > 60.0 >56 Glomerula r Filtration Rate MARTIR ([facility]) potassium serum 4.2 mEq/L 3.5-5.1 Potassium Serum ATHE NA ([facility]) sodium level 136 mEq/L 136-145 Sodium Level MARTIR ([facility]) anion gap 10 mEq/L 8-16 Anion Gap MARTIR ([facility]) carbon dioxide level 25 mEq/L 21-32 Carbon Dioxide Level MARTIR ([facility]) chloride level 101 mEq/L 98-107 Chloride Level [place] ([facility]) calcium level 9.7 mg/dL 8.5-10.1 Calcium Level MARTIR ( [facility]) ID Date Data Source [id number] 05/31/2020 07:16:00 AM EST MARTIR ([facility]) Name Value Range Interpretation Code Description Data Fabiola rce(s) Supporting Document(s) ALT/SGPT 20 U/L 12-78 ALT/SGPT M[facility]IR ([facility]) AST/SGOT 25 U/L 7-37 AST/SGOT MARTIR ([facility]) alkaline phosphatase 62 U/L 45-117 Alkaline Phosph atase MARTIR ([facility]) bilirubin,direct 0.2 mg/dL 0.0-0.2 Bilirubin,direct AT [facility] ([facility]) bilirubin,total 0.6 mg/dL 0.2-1.0 Bilirubin,total ATHE NA ([facility]) total protein 8.4 gm/dL 6.4-8.2 Above high normal Total Protein A THENA ([facility]) albumin/globulin ratio Albumin/globu liz Ratio MARTIR ([facility]) albumin 4.2 gm/dL 3.2-5.2 Albumin MARTIR ([facility]) ID Date Data Source [id number] 05/31/2020 07:16:00 AM EST MARTIR ([facility]) Name Value Range Interpretation Code Description Data Fabiola rce(s) Supporting Document(s) white blood count 10.0 10 4.0-10.0 White Blood Count MARTIR ([facility]) red blood count 4.88 10 4.30-6.10 Red Blood Count ATHE NA ([facility]) hematocrit 43.5 % 42.0-52.0 Hematocrit MARTIR ([facility]) hemoglobin 14.2 g/dL 13.5-17.5 Hemoglobin MARTIR ([facility]) mean corpuscular volume 89.1 fL 80.0-96.0 Mean Corpusc ular Volume MARTIR ([facility]) mean corpuscular hemoglobin 29.1 pg 27.0-33.0 Mean Cor puscular Hemoglobin MARTIR ([facility]) mean corpuscular HGB conc 32.6 g/dL 32.0-36.5 Mean Corpu scular HGB Conc MARTIR ([facility]) red cell distribution width 12.8 % 11.5-14.5 Red Cell Distribution Width MARTIR ([facility]) neutrophils % 73.6 % 36.0-66.0 Above high normal Neutrophils % A THENA ([facility]) lymph % 18.0 % 24.0-44.0 Below low normal Lymph % MARTIR ( [facility]) platelet count, automated 235 10 150-450 Platelet C ount, Automated MARTIR ([facility]) eos % 0.3 % 0.0-3.0 Eos % MARTIR ([facility]) mono % 7.4 % 0.0-5.0 Above high normal [place] % MARTIR ([facility]) baso % 0.4 % 0.0-1.0 Baso % MARTIR ([facility]) lymph # 1.8 10 1.5-5.0 Lymph # MARTIR ([facility]) nucleated red blood cell % 0.0 % 0-0 Nucleated Red Blood Cell % MARTIR ([facility]) immature granulocyte % 0.3 % 0-3.0 Immature Gran ulocyte % MARTIR ([facility]) neutrophils # 7.4 10 1.5-8.5 Neutrophils # MARTIR ( [facility]) eos # 0.0 10 0.0-0.5 Eos # MARTIR ([facility]) baso # 0.0 10 0.0-0.2 Baso # MARTIR ([facility]) mono # 0.7 10 0.0-0.8 [place] # MARTIR ([facility]) ID Date Data Source [id number] 05/31/2020 07:16:00 AM EST [place] ([facility]) Name Value Range Interpretation Code Description Data Fabiola rce(s) Supporting Document(s) thyroid stimulating hormone 0.474 uIU/mL 0.358-3.740 Thyroid Stimulating Hormone MARTIR ([facility]) ID Date Data Source [id number] 05/31/2020 07:16:00 AM EST MARTIR ([facility]) Name Value Range Interpretation Code Description Data Fabiola rce(s) Supporting Document(s) acetaminophen level < 2.0 10.0-30.0 Below low normal Acetaminop hen Level MARTIR ([facility]) ID Date Data Source [id number] 05/31/2020 07:16:00 AM EST MARTIR ([facility]) Name Value Range Interpretation Code Description Data Fabiola rce(s) Supporting Document(s) salicylate level 3.4 mg/dL 5.0-30.0 Below low normal Salicylate [place] MARTIR ([facility]) ID Date Data Source [id number] 05/31/2020 07:16:00 AM EST MARTIR ([facility]) Name Value Range Interpretation Code Description Data Fabiola rce(s) Supporting Document(s) ethyl alcohol (ethanol) < 0.003 0.000-0.010 Ethyl Alcoh ol (Ethanol) MARTIR ([facility]) ID Date Data Source [id number] 05/31/2020 07:16:00 AM EST MARTIR ([facility]) Name Value Range Interpretation Code Description Data Fabiola rce(s) Supporting Document(s) CPK creatine phosphokinase 967 U/L 39-308 Above high nor mal CPK Creatine Phosphokinase MARTIR ([facility]) ID Date Data Source [id number] 05/31/2020 07:16:00 AM EST [facility]) Name Value Range Interpretation Code Description Data Fabiola rce(s) Supporting Document(s) glucose, fasting 226 mg/dL 70-100 Above high normal Glucose, Fas ting MARTIR ([facility]) creatinine for GFR 1.10 mg/dL 0.70-1.30 Creatinine for GF R MARTIR ([facility]) sodium level 136 mEq/L 136-145 Sodium Level MARTIR ([facility]) blood urea nitrogen 23 mg/dL 7-18 Above high normal Blood Ure a Nitrogen MARTIR ([facility]) glomerular filtration rate > 60.0 >56 Glomerula r Filtration Rate MARTIR ([facility]) potassium serum 4.2 mEq/L 3.5-5.1 Potassium Serum AT[place] NA ([facility]) anion gap 10 mEq/L 8-16 Anion Gap MARTIR ([facility]) chloride level 101 mEq/L 98-107 Chloride Level MARTIR ([facility]) carbon dioxide level 25 mEq/L 21-32 Carbon Dioxide Level MARTIR ([facility]) calcium level 9.7 mg/dL 8.5-10.1 Calcium Level MARTIR ( [facility]) ID Date Data Source [id number] 05/31/2020 07:16:00 AM EST MARTIR ([facility]) Name Value Range Interpretation Code Description Data Fabiola rce(s) Supporting Document(s) ALT/SGPT 20 U/L 12-78 ALT/SGPT [facility] ([facility]) AST/SGOT 25 U/L 7-37 AST/SGOT M[facility]IR ([facility]) bilirubin,total 0.6 mg/dL 0.2-1.0 Bilirubin,total ATHE NA ([facility]) bilirubin,direct 0.2 mg/dL 0.0-0.2 Bilirubin,direct AT [facility]) alkaline phosphatase 62 U/L 45-117 Alkaline Phosph atase MARTIR ([facility]) albumin/globulin ratio Albumin/globu liz Ratio MARTIR ([facility]) total protein 8.4 gm/dL 6.4-8.2 Above high normal Total Protein A THENA ([facility]) albumin 4.2 gm/dL 3.2-5.2 Albumin MARTIR ([facility]) ID Date Data Source [id number] 05/31/2020 07:16:00 AM EST MARTIR ([facility]) Name Value Range Interpretation Code Description Data Fabiola rce(s) Supporting Document(s) red blood count 4.88 10 4.30-6.10 Red Blood Count ATHE NA ([facility]) white blood count 10.0 10 4.0-10.0 White Blood Count MARTIR ([facility]) hemoglobin 14.2 g/dL 13.5-17.5 Hemoglobin MARTIR ([facility]) hematocrit 43.5 % 42.0-52.0 Hematocrit MARTIR ([facility]) mean corpuscular volume 89.1 fL 80.0-96.0 Mean Corpusc ular Volume MARTIR ([facility]) red cell distribution width 12.8 % 11.5-14.5 Red Cell Distribution Width MARTIR ([facility]) mean corpuscular HGB conc 32.6 g/dL 32.0-36.5 Mean Corpu scular HGB Conc MARTIR ([facility]) mean corpuscular hemoglobin 29.1 pg 27.0-33.0 Mean Cor puscular Hemoglobin MARTIR ([facility]) platelet count, automated 235 10 150-450 Platelet C ount, Automated MARTIR ([facility]) mono % 7.4 % 0.0-5.0 Above high normal [place] % MARTIR ([facility]) neutrophils % 73.6 % 36.0-66.0 Above high normal Neutrophils % A THENA ([facility]) lymph % 18.0 % 24.0-44.0 Below low normal Lymph % MARTIR ( [facility]) eos % 0.3 % 0.0-3.0 Eos % MARTIR ([facility]) immature granulocyte % 0.3 % 0-3.0 Immature Gran ulocyte % MARTIR ([facility]) baso % 0.4 % 0.0-1.0 Baso % MARTIR ([facility]) mono # 0.7 10 0.0-0.8 [place] # MARTIR ([facility]) neutrophils # 7.4 10 1.5-8.5 Neutrophils # MARTIR ( [facility]) nucleated red blood cell % 0.0 % 0-0 Nucleated Red Blood Cell % MARTIR ([facility]) lymph # 1.8 10 1.5-5.0 Lymph # MARTIR ([facility]) eos # 0.0 10 0.0-0.5 Eos # M[facility]IR ([facility]) baso # 0.0 10 0.0-0.2 Baso # [facility]ARTIR ([facility]) ID Date Data Source [id number] 05/31/2020 07:16:00 AM EST MARTIR ([facility]) Name Value Range Interpretation Code Description Data Fabiola rce(s) Supporting Document(s) thyroid stimulating hormone 0.474 uIU/mL 0.358-3.740 Thyroid Stimulating Hormone MARTIR ([facility]) ID Date Data Source [id number] 05/31/2020 07:16:00 AM EST MARTIR ([facility]) Name Value Range Interpretation Code Description Data Fabiola rce(s) Supporting Document(s) acetaminophen level < 2.0 10.0-30.0 Below low normal Acetaminop hen Level [place] ([facility]) Procedure Social History Code Duration Value Status Description Data Source(s ) Smoking 04/15/2021 12:00:00 AM EDT Unknown if ever smoked comp leted Unknown if ever smoked [facility] ([facility]) Smoking 03/21/2021 12:00:00 AM EDT Unknown if ever smoked comp leted Unknown if ever smoked [facility] ([facility]) Alcohol intake 03/02/2021 12:00:00 AM EDT Ex-drinker (finding) comp leted Ex- drinker (finding) [facility] Tobacco use and exposure 03/02/2021 12:00:00 AM EDT Never used co mpleted Never used [facility] Cigarette pack-years 03/02/2021 12:00:00 AM EDT UNK completed [facility] Cigarettes smoked current (pack per day) - Reported 03/02/20 12:00:00 AM EDT UNK completed [facility] Smoking 03/02/2021 12:00:00 AM EDT Current every day smoker co mpleted Current every day smoker [facility] Smoking 02/26/2021 12:00:00 AM EDT Unknown if ever smoked comp leted Unknown if ever smoked [facility] ([facility]) Smoking 01/31/2021 12:00:00 AM EDT Unknown if ever smoked comp leted Unknown if ever smoked [facility] ([facility]) Smoking 12/13/2020 12:00:00 AM EDT Unknown if ever smoked comp leted Unknown if ever smoked [facility] ([facility]) Smoking 11/22/2020 12:00:00 AM EDT Unknown if ever smoked comp leted Unknown if ever smoked [facility] ([facility]) Smoking 10/18/2020 12:00:00 AM EDT Unknown if ever smoked comp leted Unknown if ever smoked [facility] ([facility]) Smoking 10/08/2020 12:00:00 AM EDT Unknown if ever smoked comp leted Unknown if ever smoked [facility] ([facility]) Smoking 10/01/2020 12:00:00 AM EDT Unknown if ever smoked comp leted Unknown if ever smoked [facility] ([facility]) Smoking 08/27/2020 12:00:00 AM EST Unknown if ever smoked comp leted Unknown if ever smoked [facility] ([facility]) Smoking 08/03/2020 12:00:00 AM EST Unknown if ever smoked comp leted Unknown if ever smoked [facility] ([facility]) Smoking 07/10/2020 12:00:00 AM EST Unknown if ever smoked comp leted Unknown if ever smoked [facility] ([facility]) Smoking 06/14/2020 12:00:00 AM EST Unknown if ever smoked comp leted Unknown if ever smoked [facility] ([facility]) Smoking 06/12/2020 12:00:00 AM EST Unknown if ever smoked comp leted Unknown if ever smoked [facility] Smoking 04/24/2020 12:00:00 AM EDT Unknown if ever smoked comp leted Unknown if ever smoked [facility] ([facility]) Smoking 04/09/2020 12:00:00 AM EDT Unknown if ever smoked comp leted Unknown if ever smoked [facility] ([facility]) Smoking 04/02/2020 12:00:00 AM EDT Unknown if ever smoked comp leted Unknown if ever smoked [facility] ([facility]) Vital Signs ID Date Data Source [id number] Name Value Range Interpretation Code Description Data Source(s) Diastolic blood pressure 82 mm[Hg] 82 mm[Hg] [facility] ([facility]) Body height 66 [in_i] 66 [in_i] [facility] ([facility]) Systolic blood pressure 110 mm[Hg] 110 mm[Hg] A THENA ([facility]) Diastolic blood pressure 82 mm[Hg] 82 mm[Hg] [facility] ([facility]) Body height 66 [in_i] 66 [in_i] [facility] ([facility]) Systolic blood pressure 110 mm[Hg] 110 mm[Hg] A THENA ([facility]) Diastolic blood pressure 82 mm[Hg] 82 mm[Hg] [facility] ([facility]) Body height 66 [in_i] 66 [in_i] [facility] ([facility]) Systolic blood pressure 110 mm[Hg] 110 mm[Hg] A THENA ([facility]) Diastolic blood pressure 70 mm[Hg] 70 mm[Hg] [facility] ([facility]) Body height 62 [in_i] 62 [in_i] [facility] ([facility]) Body mass index (BMI) [Ratio] 30.6 kg/m2 30.6 k g/m2 [facility] ([facility]) Systolic blood pressure 104 mm[Hg] 104 mm[Hg] A THENA ([facility]) Body weight 2676 [oz_av] 2676 [oz_av] [facility] ([facility]) Diastolic blood pressure 79 mm[Hg] 79 mm[Hg] [facility] ([facility]) Body height 66 [in_i] 66 [in_i] [facility] ([facility]) Systolic blood pressure 124 mm[Hg] 124 mm[Hg] A THENA ([facility]) Diastolic blood pressure 79 mm[Hg] 79 mm[Hg] M[facility]IR ([facility]) Body height 66 [in_i] 66 [in_i] [facility] ([facility]) Systolic blood pressure 124 mm[Hg] 124 mm[Hg] A THENA ([facility]) Diastolic blood pressure 79 mm[Hg] 79 mm[Hg] [facility] ([facility]) Body height 66 [in_i] 66 [in_i] [facility] ([facility]) Systolic blood pressure 124 mm[Hg] 124 mm[Hg] A THENA ([facility]) Diastolic blood pressure 79 mm[Hg] 79 mm[Hg] [facility] ([facility]) Body height 66 [in_i] 66 [in_i] [facility] ([facility]) Systolic blood pressure 124 mm[Hg] 124 mm[Hg] A THENA ([facility]) Diastolic blood pressure 74 mm[Hg] 74 mm[Hg] M[facility]IR ([facility]) Body height 66 [in_i] 66 [in_i] [facility] ([facility]) Body mass index (BMI) [Ratio] 27.1 kg/m2 27.1 k g/m2 M[facility] ([facility]) Systolic blood pressure 112 mm[Hg] 112 mm[Hg] A THENA ([facility]) Body weight 167.6 [lb_av] 167.6 [lb_av] [facility] ([facility]) Diastolic blood pressure 74 mm[Hg] 74 mm[Hg] MARTIR ([facility]) Body height 66 [in_i] 66 [in_i] MARTIR ([facility]) Body mass index (BMI) [Ratio] 27.1 kg/m2 27.1 k g/m2 [facility] ([facility]) Systolic blood pressure 112 mm[Hg] 112 mm[Hg] A THENA ([facility]) Body weight 167.6 [lb_av] 167.6 [lb_av] MARTIR ([facility]) Diastolic blood pressure 74 mm[Hg] 74 mm[Hg] M[facility]IR ([facility]) Body height 66 [in_i] 66 [in_i] M[facility]IR ([facility]) Body mass index (BMI) [Ratio] 27.1 kg/m2 27.1 k g/m2 M[facility] ([facility]) Systolic blood pressure 112 mm[Hg] 112 mm[Hg] A THENA ([facility]) Body weight 167.6 [lb_av] 167.6 [lb_av] MARTIR ([facility]) Diastolic blood pressure 74 mm[Hg] 74 mm[Hg] [facility] ([facility]) Body height 66 [in_i] 66 [in_i] MARTIR ([facility]) Body mass index (BMI) [Ratio] 27.1 kg/m2 27.1 k g/m2 M[facility] ([facility]) Systolic blood pressure 112 mm[Hg] 112 mm[Hg] A THE[facility] ([facility]) Body weight 167.6 [lb_av] 167.6 [lb_av] MARTIR ([facility]) Diastolic blood pressure 74 mm[Hg] 74 mm[Hg] M[facility] ([facility]) Body height 66 [in_i] 66 [in_i] MARTIR ([facility]) Body mass index (BMI) [Ratio] 27.1 kg/m2 27.1 k g/m2 MARTIR ([facility]) Systolic blood pressure 112 mm[Hg] 112 mm[Hg] A THENA ([facility]) Body weight 167.6 [lb_av] 167.6 [lb_av] MARTIR ([facility]) Diastolic blood pressure 66 mm[Hg] 66 mm[Hg] MARTIR ([facility]) Body height 62 [in_i] 62 [in_i] MARTIR ([facility]) Body mass index (BMI) [Ratio] 30.4 kg/m2 30.4 k g/m2 MARTIR ([facility]) Systolic blood pressure 111 mm[Hg] 111 mm[Hg] A THENA ([facility]) Body weight 2656 [oz_av] 2656 [oz_av] MARTIR ([facility]) Diastolic blood pressure 66 mm[Hg] 66 mm[Hg] MARTIR ([facility]) Body height 62 [in_i] 62 [in_i] MARTIR ([facility]) Body mass index (BMI) [Ratio] 30.4 kg/m2 30.4 k g/m2 MARTIR ([facility]) Systolic blood pressure 111 mm[Hg] 111 mm[Hg] A THENA ([facility]) Body weight 2656 [oz_av] 2656 [oz_av] MARTIR ([facility]) Body height 0.00 in Normal (applies to non-numeric resu lts) 0.00 in [facility] ([facility]) Body weight Measured 0.00 lbs Normal (applies to n on-numeric results) 0.00 lbs [facility] ([facility]) Body mass index (BMI) [Ratio] 0.00 kg/m2 No rmal (applies to non-numeric results) 0.00 kg/m2 [facility] Systolic blood pressure 0 mm[Hg] Normal (applies t o non-numeric results) 0 mm[Hg] [facility] ([facility]) Diastolic blood pressure 0 mm[Hg] Normal (applies to non-numeric results) 0 mm[Hg] [facility] ([facility]) Body height 0.00 in Normal (applies to non-numeric resu lts) 0.00 in [facility] ([facility]) Body weight Measured 0.00 lbs Normal (applies to n on-numeric results) 0.00 lbs [facility] ([facility]) Body mass index (BMI) [Ratio] 0.00 kg/m2 No rmal (applies to non-numeric results) 0.00 kg/m2 [facility] ([facility]) Systolic blood pressure 0 mm[Hg] Normal (applies t o non-numeric results) 0 mm[Hg] [facility] ([facility]) Diastolic blood pressure 0 mm[Hg] Normal (applies to non-numeric results) 0 mm[Hg] [facility] ([facility]) Diastolic blood pressure 58 mm[Hg] 58 mm[Hg] MARTIR ([facility]) Body height 62 [in_i] 62 [in_i] MARTIR ([facility]) Body mass index (BMI) [Ratio] 32.3 kg/m2 32.3 k g/m2 M[facility] ([facility]) Systolic blood pressure 93 mm[Hg] 93 mm[Hg] [facility]) Body weight 2822 [oz_av] 2822 [oz_av] MARTIR ([facility]) Diastolic blood pressure 58 mm[Hg] 58 mm[Hg] MARTIR ([facility]) Body height 62 [in_i] 62 [in_i] MARTIR ([facility]) Body mass index (BMI) [Ratio] 32.3 kg/m2 32.3 k g/m2 MART[facility] ([facility]) Systolic blood pressure 93 mm[Hg] 93 mm[Hg] A THENA ([facility]) Body weight 2822 [oz_av] 2822 [oz_av] MARTIR ([facility]) Diastolic blood pressure 58 mm[Hg] 58 mm[Hg] [facility] ([facility]) Body height 62 [in_i] 62 [in_i] M[facility]IR ([facility]) Body mass index (BMI) [Ratio] 32.3 kg/m2 32.3 k g/m2 M[facility] ([facility]) Systolic blood pressure 93 mm[Hg] 93 mm[Hg] A THENA ([facility]) Body weight 2822 [oz_av] 2822 [oz_av] MARTIR ([facility]) Diastolic blood pressure 58 mm[Hg] 58 mm[Hg] [facility]IR ([facility]) Body height 62 [in_i] 62 [in_i] [facility]IR ([facility]) Body mass index (BMI) [Ratio] 32.3 kg/m2 32.3 k g/m2 M[facility] ([facility]) Systolic blood pressure 93 mm[Hg] 93 mm[Hg] A [facility] ([facility]) Body weight 2822 [oz_av] 2822 [oz_av] MARTIR ([facility]) Body height 0.00 in Normal (applies to non-numeric resu lts) 0.00 in [facility] ([facility]) Body weight Measured 0.00 lbs Normal (applies to n on-numeric results) 0.00 lbs [facility] ([facility]) Body mass index (BMI) [Ratio] 0.00 kg/m2 No rmal (applies to non-numeric results) 0.00 kg/m2 [facility] ([facility]) Systolic blood pressure 0 mm[Hg] Normal (applies t o non-numeric results) 0 mm[Hg] [facility] ([facility]) Diastolic blood pressure 0 mm[Hg] Normal (applies to non-numeric results) 0 mm[Hg] [facility] ([facility]) Body height 0.00 in Normal (applies to non-numeric resu lts) 0.00 in [facility] ([facility]) Body weight Measured 0.00 lbs Normal (applies to n on-numeric results) 0.00 lbs [facility] ([facility]) Body mass index (BMI) [Ratio] 0.00 kg/m2 No rmal (applies to non-numeric results) 0.00 kg/m2 [facility]) Systolic blood pressure 0 mm[Hg] Normal (applies t o non-numeric results) 0 mm[Hg] [facility]) Diastolic blood pressure 0 mm[Hg] Normal (applies to non-numeric results) 0 mm[Hg] [facility]) ID Date Data Source [id number] 03/06/2021 10:25:59 PM EDT [facility] Name Value Range Interpretation Code Description Data Source(s) TRANSFER FROM Other Facility Other Facility [facility] ID Date Data Source [id number] 10/30/2020 11:15:23 AM EDT [facility] Name Value Range Interpretation Code Description Data Source(s) Chief complaint - Reported hypotension hypotens [facility] Chief complaint - Reported hypotension hypotens [facility] ID Date Data Source [id number] 11/06/2020 02:27:21 PM [facility] Name Value Range Interpretation Code Description Data Source(s) Chief complaint - Reported psych transfer psych transfer [facility] Chief complaint - Reported psych transfer psych transfer [facility] Patient Treatment Plan of Care Planned Activity Planned Date Details Description Data Source (s) Nicotine 2 MG Oral Lozenge 03/06/2021 12:00:00 AM [facility] dextrose 50 % IV solution 25 mL 03/02/2021 07:12:16 PM [facility] Glucagon 1 MG Injection 03/02/2021 07:12:16 PM [facility] Glucose 0.417 MG/MG Oral Gel 03/02/2021 07:12:16 PM [facility] Acetaminophen 325 MG Oral Tablet 03/02/2021 07:02:17 PM [facility] 24 HR Metformin hydrochloride 500 MG Extended Release Oral Tablet 10/16/2014 12:00:00 AM [facility] Trazodone Hydrochloride 100 MG Oral Tablet 09/08/2014 12:00:00 AM [facility] quetiapine 100 MG Oral Tablet 09/08/2014 12:00:00 AM [facility] 24 HR Glipizide 2.5 MG Extended Release Oral Tablet 01/21/20 12:00:00 AM [facility] Cholecalciferol 2000 UNT Oral Capsule MARTIR ([facility]) Trazodone Hydrochloride 50 MG Oral Tablet [facility] ([facility]) Trazodone Hydrochloride 100 MG Oral Tablet [facility]IR ([facility]) tramadol hydrochloride 50 MG Oral Tablet [facility] ([facility]) tizanidine 2 MG Oral Tablet [facility]IR ([facility]) Steglatro 5 mg tablet MARTIR ([facility]) Steglatro 15 mg tablet ATHEN A ([facility]) Risperidone 4 MG Oral Tablet [facility]IR ([facility]) quetiapine 400 MG Oral Tablet [facility] ([facility]) pen needles mis [id number] [facility] [place] ([facility]) OneTouch Ultra2 Meter kit AT [facility] ([facility]) OneTouch Ultra2 Meter USE DIRECTED TO TEST BLOOD SUGAR THREE TIMES DAILY MARTIR ([facility]) OneTouch Ultra Blue Test Strip MARTIR ([facility]) Nicotine 2 MG Chewing Gum AT [place] ([facility]) Naltrexone hydrochloride 50 MG Oral Tablet M[facility]IR ([facility]) Metformin hydrochloride 850 MG Oral Tablet MARTIR ([facility]) meloxicam 15 MG Oral Tablet [facility] ([facility]) empagliflozin 25 MG Oral Tablet [Jardiance] MARTIR ([facility]) insulin syrg mis 1ml/29g [facility] [place] ([facility]) insulin syrg mis 0.5/31g [facility] [place] ([facility]) insulin syrg mis 1ml/29g [facility] [place] ([facility]) insulin syrg mis 0.5/31g [facility] [place] ([facility]) gabapentin 400 MG Oral Capsule MARTIR ([facility]) Cephalexin 500 MG Oral Capsule M[facility]IR ([facility]) celecoxib 200 MG Oral Capsule [facility] ([facility]) Amoxicillin 500 MG Oral Capsule MARTIR ([facility]) Acetaminophen 300 MG / Codeine Phosphate 30 MG Oral Tablet M[facility]IR ([facility]) Cholecalciferol 2000 UNT Oral Capsule MARTIR ([facility]) Trazodone Hydrochloride 50 MG Oral Tablet [facility] ([facility]) Trazodone Hydrochloride 100 MG Oral Tablet M[facility]IR ([facility]) tramadol hydrochloride 50 MG Oral Tablet M[facility]IR ([facility]) tizanidine 2 MG Oral Tablet [facility] ([facility]) Steglatro 5 mg tablet MARTIR ([facility]) Steglatro 15 mg tablet ATHEN A ([facility]) Risperidone 4 MG Oral Tablet [facility] ([facility]) quetiapine 400 MG Oral Tablet [facility] ([facility]) pen needles mis [id number] [facility] [place] ([facility]) OneTouch Ultra2 Meter kit AT [facility] ([facility]) OneTouch Ultra2 Meter USE DIRECTED TO TEST BLOOD SUGAR THREE TIMES DAILY MARTIR ([facility]) OneTouch Ultra Blue Test Strip MARTIR ([facility]) Nicotine 2 MG Chewing Gum AT [facility] ([facility]) Naltrexone hydrochloride 50 MG Oral Tablet M[facility]IR ([facility]) Metformin hydrochloride 850 MG Oral Tablet M[facility]IR ([facility]) meloxicam 15 MG Oral Tablet [facility] ([facility]) empagliflozin 25 MG Oral Tablet [Jardiance] MARTIR ([facility]) insulin syrg mis 1ml/29g [facility] [place] ([facility]) insulin syrg mis 0.5/31g [facility] [place] ([facility]) gabapentin 400 MG Oral Capsule MARTIR ([facility]) Cephalexin 500 MG Oral Capsule [facility] ([facility]) celecoxib 200 MG Oral Capsule [facility] ([facility]) Amoxicillin 500 MG Oral Capsule M[facility]IR ([facility]) Acetaminophen 300 MG / Codeine Phosphate 30 MG Oral Tablet [facility] ([facility]) Trazodone Hydrochloride 50 MG Oral Tablet M[facility] ([facility]) Steglatro 5 mg tablet TAKE ONE TABLET BY MOUTH ONCE DAILY MARTIR ([facility]) quetiapine 200 MG Oral Tablet [facility] ([facility]) Nicotine 2 MG Chewing Gum AT [place] ([facility]) Metformin hydrochloride 850 MG Oral Tablet M[facility]IR ([facility]) meloxicam 15 MG Oral Tablet M[facility] ([facility]) Levofloxacin 500 MG Oral Tablet MARTIR ([facility]) Ibuprofen 800 MG Oral Tablet MARTIR ([facility]) Acetaminophen 325 MG / Hydrocodone Bitartrate 5 MG Oral Tablet M[facility]IR ([facility]) gabapentin 400 MG Oral Capsule M[facility]IR ([facility]) Acetaminophen 300 MG / Codeine Phosphate 30 MG Oral Tablet M[facility]IR ([facility]) Trazodone Hydrochloride 50 MG Oral Tablet [facility] tizanidine 4 MG Oral Tablet [facility] Regular Insulin, Human 100 UNT/ML Injectable Solution [facility] Cholecalciferol 2000 UNT Oral Capsule MARTIR ([facility]) Ergocalciferol 64072 UNT Oral Capsule M[facility]IR ([facility]) Trazodone Hydrochloride 50 MG Oral Tablet [facility] ([facility]) Trazodone Hydrochloride 100 MG Oral Tablet [facility] ([facility]) tramadol hydrochloride 50 MG Oral Tablet M[facility]IR ([facility]) tizanidine 2 MG Oral Tablet [facility] ([facility]) Steglatro 5 mg tablet MARTIR ([facility]) gabapentin 400 MG Oral Capsule MARTIR ([facility]) Clonazepam 0.5 MG Oral Tablet MARTIR ([facility]) Cephalexin 500 MG Oral Capsule M[facility]IR ([facility]) celecoxib 200 MG Oral Capsule M[facility]IR ([facility]) BD Ultra-Fine Mini Pen Needle 31 gauge x 3/16" USE DIRECTED with insulin pens [facility] ([facility]) BD Insulin Syringe Ultra-Fine 1 mL 30 ga uge x 1/2" use as directed to inject insulin five times a day ud ATHE NA ([facility]) Amoxicillin 500 MG Oral Capsule MARTIR ([facility]) Acetaminophen 300 MG / Codeine Phosphate 30 MG Oral Tablet M[facility]IR ([facility]) Trazodone Hydrochloride 50 MG Oral Tablet [facility] ([facility]) gabapentin 400 MG Oral Capsule MARTIR ([facility]) Cephalexin 500 MG Oral Capsule MARTIR ([facility]) celecoxib 200 MG Oral Capsule M[facility]IR ([facility]) Amoxicillin 500 MG Oral Capsule M[facility]IR ([facility]) Acetaminophen 300 MG / Codeine Phosphate 30 MG Oral Tablet [facility] ([facility]) Cholecalciferol 2000 UNT Oral Capsule M[facility]IR ([facility]) Trazodone Hydrochloride 50 MG Oral Tablet [facility] ([facility]) Trazodone Hydrochloride 100 MG Oral Tablet [facility] ([facility]) tramadol hydrochloride 50 MG Oral Tablet [facility] ([facility]) tizanidine 2 MG Oral Tablet [facility] ([facility]) Steglatro 5 mg tablet M[facility]IR ([facility]) Steglatro 15 mg tablet ATHEN A ([facility]) Risperidone 4 MG Oral Tablet [facility] ([facility]) quetiapine 400 MG Oral Tablet [facility] ([facility]) pen needles mis [id number] [facility] [place] ([facility]) OneTouch Ultra2 Meter kit AT [facility] ([facility]) OneTouch Ultra2 Meter USE DIRECTED TO TEST BLOOD SUGAR THREE TIMES DAILY MARTIR ([facility]) OneTouch Ultra Blue Test Strip M[facility]IR ([facility]) Nicotine 2 MG Chewing Gum AT [facility] ([facility]) Naltrexone hydrochloride 50 MG Oral Tablet [facility] ([facility]) Metformin hydrochloride 850 MG Oral Tablet [facility] ([facility]) meloxicam 15 MG Oral Tablet [facility] ([facility]) empagliflozin 25 MG Oral Tablet [Jardiance] M[facility] ([facility]) Steglatro 5 mg tablet TAKE ONE TABLET BY MOUTH ONCE DAILY MARTIR ([facility]) Nicotine 2 MG Chewing Gum AT [facility] ([facility]) meloxicam 15 MG Oral Tablet M[facility]IR ([facility]) Levofloxacin 500 MG Oral Tablet M[facility]IR ([facility]) Acetaminophen 325 MG / Hydrocodone Bitartrate 5 MG Oral Tablet M[facility]IR ([facility]) gabapentin 400 MG Oral Capsule MARTIR ([facility]) Steglatro 5 mg tablet TAKE ONE TABLET BY MOUTH ONCE DAILY MARTIR ([facility]) Levofloxacin 500 MG Oral Tablet M[facility] ([facility]) Acetaminophen 325 MG / Hydrocodone Bitartrate 5 MG Oral Tablet M[facility] ([facility]) Steglatro 5 mg tablet TAKE ONE TABLET BY MOUTH ONCE DAILY MARTIR ([facility]) Levofloxacin 500 MG Oral Tablet [facility] ([facility]) Acetaminophen 325 MG / Hydrocodone Bitartrate 5 MG Oral Tablet M[facility] ([facility]) gabapentin 300 MG Oral Capsule MARTIR ([facility]) Steglatro 15 mg tablet ATHEN A ([facility]) Risperidone 4 MG Oral Tablet M[facility] ([facility]) quetiapine 400 MG Oral Tablet [facility] ([facility]) quetiapine 300 MG Oral Tablet [facility] ([facility]) pen needles mis [id number] [facility] [place] ([facility]) OneTouch Ultra2 Meter kit AT [facility] ([facility]) OneTouch Ultra2 Meter USE DIRECTED TO TEST BLOOD SUGAR THREE TIMES DAILY MARTIR ([facility]) OneTouch Ultra Test strips ONE MISCELLANEOUS THREE TIMES A DAY N EEDED MARTIR ([facility]) OneTouch Ultra Blue Test Strip MARTIR ([facility]) OneTouch Delica Plus Lancet 33 gauge MARTIR ([facility]) Nicotine 2 MG Chewing Gum AT [facility] ([facility]) Naltrexone hydrochloride 50 MG Oral Tablet MARTIR ([facility]) Metformin hydrochloride 850 MG Oral Tablet MARTIR ([facility] meloxicam 15 MG Oral Tablet M[facility] ([facility]) empagliflozin 25 MG Oral Tablet [Jardiance] MARTIR ([facility]) insulin syrg mis 1ml/29g [facility] [place] ([facility]) insulin syrg mis 0.5/31g [facility] [place] ([facility]) gabapentin 400 MG Oral Capsule M[facility]IR ([facility]) Cephalexin 500 MG Oral Capsule MARTIR ([facility]) celecoxib 200 MG Oral Capsule M[facility]IR ([facility]) Amoxicillin 500 MG Oral Capsule MARTIR ([facility]) Acetaminophen 300 MG / Codeine Phosphate 30 MG Oral Tablet M[facility]IR ([facility]) Cholecalciferol 2000 UNT Oral Capsule MARTIR ([facility]) Ergocalciferol 19917 UNT Oral Capsule MARTIR ([facility]) Trazodone Hydrochloride 50 MG Oral Tablet M[facility]IR ([facility]) Trazodone Hydrochloride 100 MG Oral Tablet [facility] ([facility]) tramadol hydrochloride 50 MG Oral Tablet M[facility]IR ([facility]) tizanidine 2 MG Oral Tablet MARTIR ([facility]) Steglatro 5 mg tablet MARTIR ([facility]) Steglatro 15 mg tablet ATHEN A ([facility]) Risperidone 4 MG Oral Tablet MARTIR ([facility]) quetiapine 400 MG Oral Tablet M[facility] ([facility]) quetiapine 300 MG Oral Tablet [facility]IR ([facility]) pen needles mis [id number] [facility] [place] ([facility]) OneTouch Ultra2 Meter kit AT [facility] ([facility]) OneTouch Ultra2 Meter USE DIRECTED TO TEST BLOOD SUGAR THREE TIMES DAILY MARTIR ([facility]) OneTouch Ultra Test strips ONE MISCELLANEOUS THREE TIMES A DAY N EEDED MARTIR ([facility]) OneTouch Ultra Blue Test Strip MARTIR ([facility]) OneTouch Delica Plus Lancet 33 gauge MARTIR ([facility]) Nicotine 2 MG Chewing Gum AT [place] ([facility]) Naltrexone hydrochloride 50 MG Oral Tablet M[facility]IR ([facility]) Metformin hydrochloride 850 MG Oral Tablet MARTIR ([facility] meloxicam 15 MG Oral Tablet MARTIR ([facility]) empagliflozin 25 MG Oral Tablet [Jardiance] MARTIR ([facility]) insulin syrg mis 1ml/29g [facility] [place] ([facility]) insulin syrg mis 0.5/31g [facility] [place] ([facility])
[2021-05-03 20:54] LABS: HEMOGLOBIN 14.1 g/dl (13.5-17.5); MEAN CORPUSCULAR HEMOGLOBIN 28.5 pg (27.0-33.0); MEAN CORPUSCULAR HGB CONC 32.8 g/dl (32.0-36.5); PLATELET COUNT, AUTOMATED 239 10^3/uL (150-450); RED BLOOD COUNT 4.94 10^6/uL (4.30-6.10); WHITE BLOOD COUNT 9.1 10^3/uL (4.0-10.0)
[2021-05-03 21:58] LABS: ACETAMINOPHEN LEVEL < 2.0 UG/ML (10.0-30.0); ALBUMIN 4.6 GM/DL (3.2-5.2); ALT/SGPT 29 U/L (12-78); BILIRUBIN,DIRECT 0.3 MG/DL (0.0-0.2); BILIRUBIN,TOTAL 0.9 MG/DL (0.2-1.0); BLOOD UREA NITROGEN 30 MG/DL (7-18); CALCIUM LEVEL 9.7 MG/DL (8.5-10.1); CARBON DIOXIDE LEVEL 21 MEQ/L (21-32); CHLORIDE LEVEL 99 MEQ/L (98-107); CPK CREATINE PHOSPHOKINASE 921 U/L (39-308); CREATININE FOR GFR 1.41 MG/DL (0.70-1.30); ETHYL ALCOHOL (ETHANOL) 0.003 % (0.000-0.010); GLOMERULAR FILTRATION RATE > 60.0 (>56); GLUCOSE, FASTING 202 MG/DL (70-100); POTASSIUM SERUM 4.1 MEQ/L (3.5-5.1); SALICYLATE LEVEL < 1.7 MG/DL (5.0-30.0); SODIUM LEVEL 137 MEQ/L (136-145); THYROID STIMULATING HORMONE 0.321 uIU/ML (0.358-3.740)
[2021-05-03 22:35] LABS: RSV AMPLIFICATION NEGATIVE (NEGATIVE)
[2021-05-03 22:55] LABS: AMPHETAMINES LEVEL URINE NEGATIVE (NEGATIVE); BARBITURATES URINE NEGATIVE (NEGATIVE); BENZODIAZEPINES URINE NEGATIVE (NEGATIVE); CANNABINOIDS URINE NEGATIVE (NEGATIVE); COCAINE METABOLITE URINE POSITIVE (NEGATIVE); METHADONE URINE NEGATIVE (NEGATIVE); OPIATES URINE NEGATIVE (NEGATIVE); PHENCYCLIDINE URINE NEGATIVE (NEGATIVE)
[2021-05-04] MEDS ORDERED: TRUL10IN PO (00:21)
[2021-05-04] MEDS ORDERED: MED REC COMMENT (00:23)
[2021-05-04] MEDS ORDERED: HOME MED LIST COMPLETE! XX SCH (00:25)
[2021-05-04] MEDS ORDERED: NS 1,000 ML IV ONE (00:25)
[2021-05-04 08:15] VITALS: BP 140/78
== END 2021-05-04 08:18 | disposition home or self-care (01) ==
LOC: M ED 20:10
DX: F14.10 Cocaine abuse, uncomplicated (principal); F99 Mental disorder, not otherwise specified; Z88.8 Allergy status to other drugs, medicaments and biological substances; Z79.899 Other long term (current) drug therapy; Z79.84 Long term (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 of oral hypoglycemic drugs
CPT/HCPCS: 51701; 80048; 80076; 80143; 80307; 82077; 82550; 84443; 85027; 87631; 96360; 96361; 96372; 99285; J1200; J1630; J2060

== ENCOUNTER 2021-05-07 17:46 | Emergency (ER) | payer OTHER ==
[~2021-05-07] VITALS: Ht 170.2 cm; Wt 70.5 kg
[~2021-05-07 17:46] MED LIST changes: +MED REC COMMENT; +TRUL10IN PO
--- OUTSIDE RECORDS SUMMARY | 2021-05-07 17:58 | CCD ---
Author Author [facility] Organization [facility] Address Unknown Phone Unavailable Care Team Providers Care Building Services Engineer Name Role Phone Rio Irizarry MD Unavailable [...] Unavailable Unavailable Rio Irizarry MD Unavailable Unavailable Juan C, Rio Hull MD Unavailable Unavailable Rio Irizarry MD Unavailable Unavailable Juan C, Rio Hull MD Unavailable Unavailable Rio Irizarry MD Unavailable [...] Unavailable Unavailable Rio Irizarry MD Unavailable Unavailable AHMED, CATHERINE MD Unavailable Unavailable AHMED, AZFAR MD Unavailable Unavailable AHMED, CATHERINE MD Unavailable Unavailable AHMED, CATHERINE MD Unavailable Unavailable AHMED, AZFAR MD Unavailable Unavailable AHMED, CATHERINE MD Unavailable Unavailable AHMED, AZFAR MD Unavailable [...] Unavailable Unavailable AHMED, AZFAR MD Unavailable Unavailable Cheo Landis MD Unavailable Unavailable Cheo Landis MD Unavailable Unavailable Cheo Landis MD Unavailable Unavailable Cheo Landis MD Unavailable Unavailable Cheo Landis MD Unavailable Unavailable Cheo Landis MD Unavailable Unavailable DO KURTIS MACDONALD Unavailable Unavailab Kera Barriga Unavailable HoustonFredrick MD Unavailable Unavaila ble HoustonFredrick MD Unavailable Unavaila ble HoustonFredrick MD Unavailable Unavaila ble Houston, Fredrick Nguyen MD Unavailable Unavaila ble Houston, Fredrick Nguyen MD Unavailable Unavaila ble Houston, Fredrick Nguyen MD Unavailable Unavaila ble [place], Fredrick Nguyen MD Unavailable Unavaila ble [place], Fredrick Nguyen MD Unavailable Unavaila ble Houston, Fredrick Nguyen MD Unavailable Unavaila ble [place], Fredrick Nguyen MD Unavailable Unavaila ble [place], Fredrick Nguyen MD Unavailable Unavaila ble [place], Fredrick Nguyen MD Unavailable Unavaila ble Daylin Waldrop Unavailable Jumalon, M Luz LOAN COUNSELOR Unavailable Unavailable Jumalon, M Luz LOAN COUNSELOR Unavailable Unavailable Jumalon, M Luz LOAN COUNSELOR Unavailable Unavailable Jumalon, M Luz LOAN COUNSELOR Unavailable Unavailable Jumalon, M Luz LOAN COUNSELOR Unavailable Unavailable Jumalon, M Luz LOAN COUNSELOR Unavailable Unavailable Jumalon, M Luz LOAN COUNSELOR Unavailable Unavailable Jumalon, M Luz LOAN COUNSELOR Unavailable Unavailable Jumalon, M Luz LOAN COUNSELOR Unavailable Unavailable Jumalon, M Luz LOAN COUNSELOR Unavailable Unavailable Jumalon, M Luz LOAN COUNSELOR Unavailable Unavailable Jumalon, M Luz LOAN COUNSELOR Unavailable Unavailable Jumalon, M Luz LOAN COUNSELOR Unavailable Unavailable Jumalon, M Luz LOAN COUNSELOR Unavailable Unavailable Jumalon, M Luz LOAN COUNSELOR Unavailable Unavailable Jumalon, M Luz LOAN COUNSELOR Unavailable Unavailable Jumalon, M Luz LOAN COUNSELOR Unavailable Unavailable Jumalon, M Luz LOAN COUNSELOR Unavailable Unavailable Jumalon, M Luz LOAN COUNSELOR Unavailable Unavailable Jumalon, M Luz LOAN COUNSELOR Unavailable Unavailable Jumalon, M Luz LOAN COUNSELOR Unavailable Unavailable Jumalon, M Luz LOAN COUNSELOR Unavailable Unavailable Jumalon, M Luz LOAN COUNSELOR Unavailable Unavailable Jumalon, M Luz LOAN COUNSELOR Unavailable Unavailable Jumalon, M Luz LOAN COUNSELOR Unavailable Unavailable Jumalon, M Luz LOAN COUNSELOR Unavailable Unavailable Jumalon, M Luz LOAN COUNSELOR Unavailable Unavailable Jumalon, M Luz LOAN COUNSELOR Unavailable Unavailable Jumalon, M Luz LOAN COUNSELOR Unavailable Unavailable Jumalon, M Luz LOAN COUNSELOR Unavailable Unavailable AUSTEN, H CARLOS ALBERTO NON DESTRUCTIVE TESTING ENGINEER Unavailable Unavailable AUSTEN, H CARLOS ALBERTO NON DESTRUCTIVE TESTING ENGINEER Unavailable Unavailable AUSTEN, H CARLOS ALBERTO NON DESTRUCTIVE TESTING ENGINEER Unavailable Unavailable AUSTEN, H CARLOS ALBERTO NON DESTRUCTIVE TESTING ENGINEER Unavailable Unavailable AUSTEN, H CARLOS ALBERTO NON DESTRUCTIVE TESTING ENGINEER Unavailable Unavailable AUSTEN, H CARLOS ALBERTO NON DESTRUCTIVE TESTING ENGINEER Unavailable Unavailable AUSTEN, H CARLOS ALBERTO NON DESTRUCTIVE TESTING ENGINEER Unavailable Unavailable AUSTEN, H CARLOS ALBERTO NON DESTRUCTIVE TESTING ENGINEER Unavailable Unavailable AUSTEN, H CARLOS ALBERTO NON DESTRUCTIVE TESTING ENGINEER Unavailable Unavailable MD MIRTHA LOBATO Unavailable Unavailable [...] Unavailable Unavailable ANAND, DO ERIC Unavailable Unavailable Tre Lara MD Unavailable Unavailable Tre Lara MD Unavailable Unavailable Tre Lara MD Unavailable Unavailable Tre Lara MD Unavailable Unavailable Tre Lara MD Unavailable Unavailable Tre Lara MD Unavailable Unavailable Tre Lara MD Unavailable Unavailable Tre Lara MD Unavailable Unavailable Tre Lara MD Unavailable Unavailable Tre Lara MD Unavailable Unavailable Tre Lara MD Unavailable Unavailable Tre Lara MD Unavailable Unavailable Tre Lara MD Unavailable Unavailable Tre Lara MD Unavailable Unavailable Tre Lara MD Unavailable Unavailable Tre Lara MD Unavailable Unavailable Tre Lara MD Unavailable Unavailable Tre Lara MD Unavailable Unavailable Tre Lara MD Unavailable Unavailable Tre Lara MD Unavailable Unavailable Tre Lara MD Unavailable Unavailable Bolla, S Pipo [...] Bolla, S Pipo MD Unavailable Unavailable THOMAS, HOLINESS MD Unavailable Unavailable THOMAS, HOLINESS MD Unavailable Unavailable THOMAS, HOLINESS MD Unavailable Unavailable THOMAS, HOLINESS MD Unavailable Unavailable THOMAS, HOLINESS MD Unavailable Unavailable THOMAS, HOLINESS MD Unavailable Unavailable THOMAS, HOLINESS MD Unavailable Unavailable THOMAS, HOLINESS MD Unavailable Unavailable Mcnamara, E Amna NON DESTRUCTIVE TESTING ENGINEER Unavailable Unavailable Mcnamara, E Amna NON DESTRUCTIVE TESTING ENGINEER Unavailable Unavailable Mcnamara, E Amna NON DESTRUCTIVE TESTING ENGINEER Unavailable Unavailable Mcnamara, E Amna NON DESTRUCTIVE TESTING ENGINEER Unavailable Unavailable Mcnamara, E Amna NON DESTRUCTIVE TESTING ENGINEER Unavailable Unavailable Mcnamara, E Amna NON DESTRUCTIVE TESTING ENGINEER Unavailable Unavailable Mcnamara, E Amna NON DESTRUCTIVE TESTING ENGINEER Unavailable Unavailable Mcnamara, E Amna NON DESTRUCTIVE TESTING ENGINEER Unavailable Unavailable Mcnamara, E Amna NON DESTRUCTIVE TESTING ENGINEER Unavailable Unavailable Mcnamara, E Amna NON DESTRUCTIVE TESTING ENGINEER Unavailable Unavailable Mcnamara, E Amna NON DESTRUCTIVE TESTING ENGINEER Unavailable Unavailable Mcnamara, E Amna NON DESTRUCTIVE TESTING ENGINEER Unavailable Unavailable Mcnamara, E Amna NON DESTRUCTIVE TESTING ENGINEER Unavailable Unavailable Mcnamara, E Amna NON DESTRUCTIVE TESTING ENGINEER Unavailable Unavailable Mcnamara, E Amna NON DESTRUCTIVE TESTING ENGINEER Unavailable Unavailable Mcnamara, E Amna NON DESTRUCTIVE TESTING ENGINEER Unavailable Unavailable Mcnamara, E Amna NON DESTRUCTIVE TESTING ENGINEER Unavailable Unavailable Mcnamara, E Amna NON DESTRUCTIVE TESTING ENGINEER Unavailable Unavailable Mcnamara, E Amna NON DESTRUCTIVE TESTING ENGINEER Unavailable Unavailable Mcnamara, E Amna NON DESTRUCTIVE TESTING ENGINEER Unavailable Unavailable Mcnamara, E Amna NON DESTRUCTIVE TESTING ENGINEER Unavailable Unavailable Mcnamara, E Amna NON DESTRUCTIVE TESTING ENGINEER Unavailable Unavailable Mcnamara, E Amna NON DESTRUCTIVE TESTING ENGINEER Unavailable Unavailable Ze, A Sanjuana LOAN COUNSELOR Unavailable Unavailable [place], A Sanjuana LOAN COUNSELOR Unavailable Unavailable [place], A Sanjuana LOAN COUNSELOR Unavailable Unavailable [place], A Sanjuana LOAN COUNSELOR Unavailable Unavailable [place], A Sanjuana LOAN COUNSELOR Unavailable Unavailable [place], A Sanjuana LOAN COUNSELOR Unavailable Unavailable [place], A Sanjuana LOAN COUNSELOR Unavailable Unavailable [place], A Sanjuana LOAN COUNSELOR Unavailable Unavailable [place], A Sanjuana LOAN COUNSELOR Unavailable Unavailable [place], A Sanjuana LOAN COUNSELOR Unavailable Unavailable [place], A Sanjuana LOAN COUNSELOR Unavailable Unavailable [place], A Sanjuana LOAN COUNSELOR Unavailable Unavailable [place], A Sanjuana LOAN COUNSELOR Unavailable Unavailable [place], A Sanjuana LOAN COUNSELOR Unavailable Unavailable [place], A Sanjuana LOAN COUNSELOR Unavailable Unavailable [place], A Sanjuana LOAN COUNSELOR Unavailable Unavailable [place], A Sanjuana LOAN COUNSELOR Unavailable Unavailable [place], A Sanjuana LOAN COUNSELOR Unavailable Unavailable [place], A Sanjuana LOAN COUNSELOR Unavailable Unavailable [place], A Sanjuana LOAN COUNSELOR Unavailable Unavailable [place], A Sanjuana LOAN COUNSELOR Unavailable Unavailable [place], A Sanjuana LOAN COUNSELOR Unavailable Unavailable [place], A Sanjuana LOAN COUNSELOR Unavailable Unavailable [place], A Sanjuana LOAN COUNSELOR Unavailable Unavailable [place], A Sanjuana LOAN COUNSELOR Unavailable Unavailable [place], A Sanjuana LOAN COUNSELOR Unavailable Unavailable [place], A Sanjuana LOAN COUNSELOR Unavailable Unavailable [place], A Sanjuana LOAN COUNSELOR Unavailable Unavailable [place], A Sanjuana LOAN COUNSELOR Unavailable Unavailable [place], A Sanjuana LOAN COUNSELOR Unavailable Unavailable [place], A Sanjuana LOAN COUNSELOR Unavailable Unavailable Gilson Blackwell MD Unavailable Unavailable Blackwell, Gilson Leung MD Unavailable Unavailable BlackwellGilson maguire MD Unavailable Unavailable Blackwell, Gilson Leung MD Unavailable Unavailable MD Oz COBB Unavailable Unavailable Rio GÓMEZ MD Unavailable Unavailable [...] Unavailable KACHARE, D ROYAL MD Unavailable Unavailable TURRIN, TRAE Unavailable Unavailable TURRIN, TRAE Unavailable Unavailable TURRIN, TRAE Unavailable Unavailable TURRIN, TRAE Unavailable Unavailable KIMI GUERRIER, BALJIT Unavailable Unavailable EMERGENCY, SERVICES MEDICAL Unavailable Unavailable [...] is protected by Article 27-F of the [facility] Public Health law. If you continue you may have access to information: Regarding HIV / AIDS; Provided by facilities licensed or operated by the [facility] Office of Mental Health; or Provided by the [facility] Office for People With Developmental Disabilities. If such information is present, then the following [facility] mandated warning applies: This information has [...] law may result in a fine or mcfp sentence or both. A general authorization for the release of medical or other information is NOT sufficient authorization for further disc losure. Allergies and Adverse Reactions Type Description Substance Reaction Status Data Source(s ) Propensity to adverse reactions NO KNOWN ALLERGIES NO KNOWN ALLERGIES [facility] Propensity to adverse reactions RISPERIDONE RISPERIDONE Unknown [facility] Propensity to adverse reactions RISPERIDONE Risperidone Rash Low [facility] Propensity to adverse reactions NO KNOWN ALLERGIES NO KNOWN ALLERGIES [facility] Propensity to adverse reactions NO ALLERGIES ON FILE NO ALLERGIES ON FILE [facility] Allergy to substance Allergy to substance Allergy to substance [facility] ([facility]) Allergy to substance Allergy to substance Allergy to substance [facility] ([facility]) Family History Family Member Name Family Member Gender Family Member Status Date o f Status Description Data Source(s) Unknown Unknown Problem [facility] ([facility]) Unknown Unknown Problem [facility] ([facility]) Encounters Encounter Providers Location Date Indications Data Source(s ) Pipo Lara MD: [id number] [address], [facility] [place] [address], Ph. Attender: Pipo Lara MD [place] - [facility] 04/25/2021 12:00:00 AM EDT MARTIR ([facility]) Pipo Lara MD: [id number] [facility] [address], [address] [place], [place] [id number], Ph. [phone] Attender: Pipo Lara MD [place] - [facility] 04/22/2021 12:00:00 AM EDT MARTIR ([facility]) Pipo Lara MD: [id number] [facility] [address], [place] [address], Ph. [phone] Attender: Pipo Lara MD [place] - [facility] 04/22/2021 12:00:00 AM EDT MARTIR ([facility]) Extended Individual Psychotherapy - 45 min Attender: Nhi Waldrop [facility] 04/15/2021 01:00:00 AM EDT - 04/15/2021 01:00:00 AM EDT [facility] ([facility]) Attender: Daylin Waldrop 04/15/2021 12:00:00 A M EDT [facility] ([facility]) Luz Dallas, NON DESTRUCTIVE TESTING ENGINEER: [address], [place] [address], Ph. Attender: Luz Dallas [facility] 04/11/2021 12:00:00 AM EDT ATHGilson NA ([facility]) Luz Dallas, NON DESTRUCTIVE TESTING ENGINEER: [address], [place] [address], Ph. Attender: Luz Dallas [facility] 04/11/2021 12:00:00 AM EDT ATHGilson GARCIA ([facility]) Luz Dallas, NON DESTRUCTIVE TESTING ENGINEER: [address], [place] [address], Ph. [facility] 04/11/2021 12:00:00 AM EDT ATHE NA ([facility]) Attender: Daylin Jaimekatina 03/21/2021 12:00:00 A M EDT [facility] ([facility]) Brief Individual Psychotherapy - 30 min Attender: Daylin Juan Ramon barragan [facility] 03/19/2021 12:45:00 PM EDT - 03/19/2021 12:45:00 PM EDT [facility] ([facility]) Sanjuana Kunz [facility]: [address] [place] [address], Ph. Attender: Sanjuana [facility] 03/15/2021 12:00:00 AM EDT MARTIR ([facility]) Inpatient Attender: NEY Guillen nder: CAREY CHARLES MDAdmitter: NEY THOMAS MDReferrer: CAREY CHARLES MD [id number] 03/02/2021 12:00:00 AM EDT - 03/06/2021 02:10:00 PM EDT [facility] Patient discharged. Luz Dallas, NON DESTRUCTIVE TESTING ENGINEER: [address], [place] [address], Ph. Attender: Luz Dallas [facility] 02/28/2021 12:00:00 AM EDT JORDYN GARCIA ([facility]) Luz Dallas, NON DESTRUCTIVE TESTING ENGINEER: [address], [facility] [place] [address], Ph. [facility]: [facility] 02/28/2021 12:00:00 AM EDT ATHGilson GARCIA ([facility]) Luz Dallas, NON DESTRUCTIVE TESTING ENGINEER: [address], [place] [address], Ph. Attender: Luz Dallas [facility] - [facility] 02/28/2021 12:00:00 AM EDT ATHGilson GARCIA ([facility]) Luz Dallas, NON DESTRUCTIVE TESTING ENGINEER: [address], [place] [address], Ph. Attender: Luz Dallas [facility] - [facility] 02/28/2021 12:00:00 AM EDT ATHGilson GARCIA ([facility]) Emergency Attender: TRAE GARCIAConsultant: STAFF NON 02/27/2021 10:13:00 PM EDT - 02/28/2021 12:22:00 AM EDT [facility] Patient discharged. Brief Individual Psychotherapy - 30 min Attender: Daylin barragan [facility] 02/26/2021 01:30:00 AM EDT - 02/26/2021 01:30:00 AM EDT [facility] ([facility]) Attender: Daylin Waldrop 02/26/2021 12:00:00 A M EDT [facility] ([facility]) Pipo Lara MD: [address], [place] [address], Ph. Attender: Pipo SHEPPARD - [facility] 02/05/2021 12:00:00 AM EDT MARTIR ([facility]) Pipo Lara MD: [address], [place] [address], Ph. Attender: Pipo SHEPPARD - [facility] 02/05/2021 12:00:00 AM EDT MARTIR ([facility]) Pipo Lara MD: [address], [address], [place] [address], Ph. Attender: Pipo SHEPPARD - [facility] 02/05/2021 12:00:00 AM EDT MARTIR ([facility]) Pipo Lara MD: [address], [address], [place] [address], Ph. Attender: Pipo SHEPPARD - [facility] 02/05/2021 12:00:00 AM EDT MARTIR ([facility]) Pipo Lara MD: [address], [address], [place] [address], Ph. Attender: Pipo SHEPPARD - [facility] 02/05/2021 12:00:00 AM EDT [facility]IR ([facility]) Emergency Attender: Cheo Landis MDConsultant: STAFF NON 02/01/2021 11:44:00 PM EDT - 02/02/2021 03:48:00 AM EDT [facility] Patient discharged. Outpatient Attender: CARLOS ALBERTO BOYCE NP [facility] Chris cabrera 01/31/2021 03:00:00 AM EDT - 01/31/2021 03:00:00 AM EDT [facility] ([facility]) Extended Individual Psychotherapy - 45 min Attender: Nhi Waldrop [facility] Arely 01/31/2021 02:00:00 AM EDT - 01/31/2021 02:00:00 AM EDT [facility] ([facility]) Attender: CARLOS ALBERTO BOYCE NP 01/31/2021 12:00:00 AM EDT [facility] ([facility]) Attender: Daylin Waldrop 01/31/2021 12:00:00 A M EDT [facility] ([facility]) SHANNON Jay-BC: [address] [place] [address], Ph. Attender: Sanjuana Ze [facility] Medical 01/10/2021 12:00:00 AM EDT MARTIR ([facility]) [facility] [address] [place] [address], Ph. Attender: Sanjuana Kunz [facility] Medical 01/10/2021 12:00:00 AM EDT M[facility]IR ([facility]) Outpatient Attender: CARLOS ALBERTO BOYCE NP [facility] Chris l 12/13/2020 03:30:00 AM EDT - 12/13/2020 03:30:00 AM EDT [facility] ([facility]) Attender: CARLOS ALBERTO BOYCE NP 12/13/2020 12:00:00 AM EDT [facility] ([facility]) Kurtis Irizarry MD: [address] [place] [address], Ph. Attender: Kurtis Irizarry MD [facility] Medical 11/28/2020 12:00:00 AM EDT MARTIR ([facility]) Kurtis Irizarry MD: [address] [place] [address], Ph. Attender: Kurtis Irizarry MD [facility] Medical 11/28/2020 12:00:00 AM EDT MARTIR ([facility]) Kurtis Irizarry MD: [address] [place] [address], Ph. Attender: Kurtis Irizarry MD [facility] Medical 11/28/2020 12:00:00 AM EDT [facility] ([facility]) Outpatient Attender: Madhu Blackwell MD [facility] l 11/22/2020 08:00:00 AM EDT - 11/22/2020 08:00:00 AM EDT [facility] ([facility]) Attender: Madhu Blackwell MD 11/22/2020 12:00:00 AM EDT [facility] ([facility]) Emergency Attender: MEDICAL EMERGENCYAttender: MD AMNA VILLANUEVA [facility] 10/30/2020 09:24:00 AM EDT - 10/30/2020 11:24:00 AM EDT [facility] Patient discharged. Emergency Attender: MD AMNA LOBATO 10/30/2020 09:24:00 AM EDT [facility] Inpatient Attender: MD CHRISTINE Lira nasreen: DO ERIC BRYANTttender: DO CORNELIO Singletonender: MEDICAL EMERGENCYAdmitter: DO ERIC MICHEL [id number] 10/28/2020 04:13:00 PM EDT - 11/06/2020 02:27:00 PM EDT [facility] Patient discharged. Inpatient Attender: DOCTOR UNKNOWNAdmi tter: DO ERIC MICHELReferrer: CATHERINE GREGG MD 10/28/2020 04:13:00 PM EDT [facility] Outpatient Attender: CARLOS ALBERTO BOYCE NP [facility] Chris cabrera 10/18/2020 11:00:00 AM EDT - 10/18/2020 11:00:00 AM EDT [facility] ([facility]) Attender: CARLOS ALBERTO BOYCE NP 10/18/2020 12:00:00 AM EDT [facility] ([facility]) Brief Individual Psychotherapy - 30 min Attender: Kera jordan [facility] Arely 10/08/2020 12:00:00 PM EDT - 10/08/2020 12:00:00 PM EDT [facility] ([facility]) Attender: Kera Nielsen 10/08/2020 12:00:00 AM EDT [facility] ([facility]) Outpatient Attender: CARLOS ALBERTO BOYCE NP [facility] Chris cabrera 10/01/2020 02:30:00 AM EDT - 10/01/2020 02:30:00 AM EDT [facility] ([facility]) Attender: CARLOS ALBERTO BOYCE NP 10/01/2020 12:00:00 AM EDT [facility] ([facility]) IP PSYCH Attender: Patrick berger MDAttender: BALJIT BOLDEN MDAdmitter: Patrick Marte MDConsultant: ROYAL GÓMEZ MD [id number] 09/01/2020 11:07:00 PM EST - 09/06/2020 01:00:00 PM EST [facility] Patient discharged. TEMPMHCTelemed--Crisis Brief Attender: Daylin Waldrop [facility] 08/27/2020 02:45:00 AM EST - 08/27/2020 02:45:00 AM EST [facility] ([facility]) Attender: Daylin Waldrop 08/27/2020 12:00:00 A M EST [facility] ([facility]) Attender: Daylin Waldrop 08/03/2020 12:00:00 A M EST [facility] ([facility]) Brief Individual Psychotherapy - 30 min Attender: Daylin barragan [facility] 08/02/2020 11:00:00 AM EST - 08/02/2020 11:00:00 AM EST [facility] ([facility]) Outpatient Attender: CARLOS ALBERTO BOYCE NP [facility] Chris cabrera 07/10/2020 01:00:00 AM EST - 07/10/2020 01:00:00 AM EST [facility] ([facility]) Attender: CARLOS ALBERTO BOYCE NP 07/10/2020 12:00:00 AM EST [facility] ([facility]) Brief Individual Psychotherapy - 30 min Attender: Daylin barragan [facility] 06/14/2020 12:00:00 PM EST - 06/14/2020 12:00:00 PM EST [facility] ([facility]) Attender: Daylin Waldrop 06/14/2020 12:00:00 A M EST [facility] ([facility]) MAIKEL CarltonBC: [address], [place] [address], Ph. Attender: Amna Mcnamara NP [facility] Medical 06/13/2020 12:00:00 AM EST MARTIR ([facility]) MAIKEL CarltonBC: [address], [place] [address], Ph. Attender: Amna Mcnamara NP [facility] Medical 06/13/2020 12:00:00 AM EST [facility]IR ([facility]) GALEN Carlton: [address], [place] [address], Ph. Attender: Amna Mcnamara NP [facility] Medical 06/13/2020 12:00:00 AM EST [facility] ([facility]) MAIKEL CarltonBC: [address], [place] [address], Ph. Attender: Amna Mcnamara NP [facility] Medical 06/13/2020 12:00:00 AM EST [facility] ([facility]) Outpatient Attender: CARLOS ALBERTO BOYCE NP [facility] Chris l 06/12/2020 03:30:00 AM EST - 06/12/2020 03:30:00 AM EST [facility] ([facility]) Attender: CARLOS ALBERTO BOYCE NP 06/12/2020 12:00:00 AM EST [facility] ([facility]) Unknown [address] [facility] [address] 06/07/2020 12:00:00 AM EST eCW1 ([facility]) Brief Individual Psychotherapy - 30 min Attender: Daylin barragan [facility] 04/24/2020 12:00:00 PM EDT - 04/24/2020 12:00:00 PM EDT [facility] Attender: Daylin Waldrop 04/24/2020 12:00:00 A M EDT [facility] ([facility]) Outpatient FP 04/18/2020 02:50:00 PM EDT [facility] Outpatient Attender: CARLOS ALBERTO BOYCE NP [facility] Chris cabrera 04/09/2020 03:00:00 AM EDT - 04/09/2020 03:00:00 AM EDT [facility] ([facility]) Attender: CARLOS ALBERTO BOYCE NP 04/09/2020 12:00:00 AM EDT [facility] ([facility]) Brief Individual Psychotherapy - 30 min Attender: Kera jordan [facility] Arely 04/02/2020 02:00:00 AM EDT - 04/02/2020 02:00:00 AM EDT [facility] ([facility]) Attender: Kera Nielsen 04/02/2020 12:00:00 AM EDT [facility] ([facility]) Outpatient FP 03/21/2020 11:10:01 AM EDT [facility] Functional Status Immunizations Vaccine Date Status Description Data Source(s) COVID-19 vaccine, vector-nr, rS-Ad26, PF, 0.5 mL 11/28/2020 04:33:01 PM EDT completed .5 mL [facility]) COVID-19 vaccine, vector-nr, rS-Ad26, PF, 0.5 mL 11/28/2020 04:33:01 PM [facility] vector-nr, rS-Ad26, PF, 0.5 mL 11/28/2020 04:33:01 PM EDT completed .5 mL [facility]) COVID-19 VACCINE Lorrie 11/28/2020 12:00:00 AM EDT completed [facility] Vaccine Series Complete: YESThis Data wa s Submitted to [facility] Via [facility]. Medications Medication Brand Name Start Date Product Form Dose Route Admi nistrative Instructions Pharmacy Instructions Status Indications Reaction Description Data Source(s) quetiapine 300 MG Oral Tablet quetiapine 04/02/2021 12:00:00 AM EDT 300 mg by mouth completed <td ID="Medica tionRxNorm_2">152141</td><td ID="MedicationMedication_2">quetiapine</td><td ID="MedicationRoute_2">by mouth</td><td ID="MedicationRouteConcept_2">Z36435</td><td ID="MedicationStartDate_2">04/02/2021</td><td ID="MedicationStopDate_2">05/02/2021</td><td ID="MedicationDosageFrequency_2">at bedtime</td><td ID="MedicationDuration_2">30</td><td ID="MedicationFormulaStrength_2">300 mg</td><td ID="MedicationDosageForm_2">tablet</td><td ID="MedicationDosageFormCode_2"></td><td ID="MedicationDosageDescription_2"></td><td ID="MedicationMedicationId_2">[id number]</td><td ID="MedicationAccount_2">[id number]</td><td ID="MedicationNpid_2">[id number]</td><td ID="MedicationAuthorFirstName_2">Carlos Alberto</td><td ID="MedicationAuthorLastName_2">Austen</td><td ID="MedicationTaxonomyCode_2">[id number]</td><td ID="MedicationTaxonomyDesc_2">Nurse Practitioner</td><td ID="MedicationPhoneNumber_2">[phone]</td> [facility] ([facility]) Haloperidol 10 MG Oral Tablet haloperidol 04/02/2021 12:00:00 AM EDT 10 mg by mouth completed <td ID="Medica tionRxNorm_4">964467</td><td ID="MedicationMedication_4">haloperidol</td><td ID="MedicationRoute_4">by mouth</td><td ID="MedicationRouteConcept_4">M98836</td><td ID="MedicationStartDate_4">04/02/2021</td><td ID="MedicationStopDate_4">06/01/2021</td><td ID="MedicationDosageFrequency_4">three times a day</td><td ID="MedicationDuration_4">30</td><td ID="MedicationFormulaStrength_4">10 mg</td><td ID="MedicationDosageForm_4">tablet</td><td ID="MedicationDosageFormCode_4"></td><td ID="MedicationDosageDescription_4"> </td><td ID="MedicationMedicationId_4">[id number]</td><td ID="MedicationAccount_4">[id number]</td><td ID="MedicationNpid_4">[id number]</td><td ID="MedicationAuthorFirstName_4">Carlos Alberto</td><td ID="MedicationAuthorLastName_4">[place]en</td><td ID="MedicationTaxonomyCode_4">[id number]</td><td ID="MedicationTaxonomyDesc_4">Nurse Practitioner</td><td ID="MedicationPhoneNumber_4">[phone]</td> [facility] ([facility]) gabapentin 300 MG Oral Capsule gabapentin 04/02/2021 12:00:00 AM EDT 300 mg by mouth completed <td ID="Medica tionRxNorm_5">585508</td><td ID="MedicationMedication_5">gabapentin</td><td ID="MedicationRoute_5">by mouth</td><td ID="MedicationRouteConcept_5">D27161</td><td ID="MedicationStartDate_5">04/02/2021</td><td ID="MedicationStopDate_5">06/01/2021</td><td ID="MedicationDosageFrequency_5">three times a day</td><td ID="MedicationDuration_5">30</td><td ID="MedicationFormulaStrength_5">300 mg</td><td ID="MedicationDosageForm_5">capsule</td><td ID="MedicationDosageFormCode_5"></td><td ID="MedicationDosageDescription_5"> </td><td ID="MedicationMedicationId_5">[id number]</td><td ID="MedicationAccount_5">[id number]</td><td ID="MedicationNpid_5">[id number]</td><td ID="MedicationAuthorFirstName_5">Carlos Alberto</td><td ID="MedicationAuthorLastName_5">[place]en</td><td ID="MedicationTaxonomyCode_5">[id number]</td><td ID="MedicationTaxonomyDesc_5">Nurse Practitioner</td><td ID="MedicationPhoneNumber_5">[phone]</td> [facility] ([facility]) benztropine mesylate 1 MG Oral Tablet benztropine 04/02/2021 12:00 :00 AM EDT 1 mg by mouth completed <td ID="Me dicationRxNorm_3">369948</td><td ID="MedicationMedication_3">benztropine</td><td ID="MedicationRoute_3">by mouth</td><td ID="MedicationRouteConcept_3">A80476</td><td ID="MedicationStartDate_3">04/02/2021</td><td ID="MedicationStopDate_3">06/01/2021</td><td ID="MedicationDosageFrequency_3">twice a day</td><td ID="MedicationDuration_3">30</td><td ID="MedicationFormulaStrength_3">1 mg</td><td ID="MedicationDosageForm_3">tablet</td><td ID="MedicationDosageFormCode_3"></td><td ID="MedicationDosageDescription_3"></td><td ID="MedicationMedicationId_3">[id number]</td><td ID="MedicationAccount_3">[id number]</td><td ID="MedicationNpid_3">[id number]</td><td ID="MedicationAuthorFirstName_3">Carlos Alberto</td><td ID="MedicationAuthorLastName_3">[place]en</td><td ID="MedicationTaxonomyCode_3">[id number]</td><td ID="MedicationTaxonomyDesc_3">Nurse Practitioner</td><td ID="MedicationPhoneNumber_3">[phone]</td> [facility] ([facility]) Clonazepam 0.5 MG Oral Tablet [Klonopin] Klonopin 04/01/2021 12 :00:00 AM EDT 0.5 mg by mouth completed <td ID="Me dicationRxNorm_1">234026</td><td ID="MedicationMedication_1">Klonopin</td><td ID="MedicationRoute_1">by mouth</td><td ID="MedicationRouteConcept_1">P48001</td><td ID="MedicationStartDate_1">04/01/2021</td><td ID="MedicationStopDate_1">04/16/2021</td><td ID="MedicationDosageFrequency_1">twice a day</td><td ID="MedicationDuration_1">15</td><td ID="MedicationFormulaStrength_1">0.5 mg</td><td ID="MedicationDosageForm_1">tablet</td><td ID="MedicationDosageFormCode_1"></td><td ID="MedicationDosageDescription_1"></td><td ID="MedicationMedicationId_1">[id number]</td><td ID="MedicationAccount_1">[id number]</td><td ID="MedicationNpid_1">[id number]</td><td ID="MedicationAuthorFirstName_1">Carlos Alberto</td><td ID="MedicationAuthorLastName_1">Austen</td><td ID="MedicationTaxonomyCode_1">[id number]</td><td ID="MedicationTaxonomyDesc_1">Nurse Practitioner</td><td ID="MedicationPhoneNumber_1">[phone]</td> [facility] ([facility]) Clonazepam 0.5 MG Oral Tablet clonazepam 03/08/2021 12:00:00 AM EDT 0.5 mg by mouth completed <td ID="Medica tionRxNorm_1">370163</td><td ID="MedicationMedication_1">clonazepam</td><td ID="MedicationRoute_1">by mouth</td><td ID="MedicationRouteConcept_1">Y38380</td><td ID="MedicationStartDate_1">03/08/2021</td><td ID="MedicationStopDate_1">03/23/2021</td><td ID="MedicationDosageFrequency_1">twice a day</td><td ID="MedicationDuration_1">15</td><td ID="MedicationFormulaStrength_1">0.5 mg</td><td ID="MedicationDosageForm_1">tablet</td><td ID="MedicationDosageFormCode_1"></td><td ID="MedicationDosageDescription_1"></td><td ID="MedicationMedicationId_1">[id number]</td><td ID="MedicationAccount_1">[id number]</td><td ID="MedicationNpid_1">[id number]</td><td ID="MedicationAuthorFirstName_1">Tio</td><td ID="MedicationAuthorLastName_1">Mares</td><td ID="MedicationTaxonomyCode_1">[id number]</td><td ID="MedicationTaxonomyDesc_1">Nurse Practitioner</td><td ID="MedicationPhoneNumber_1">[phone]</td> [facility] ([facility]) Nicotine 2 MG Oral Lozenge Nicotine Efrain crilex 2 MG Mouth/Throat Lozenge (NICORETTE) Nicotine Polacrilex 2 MG Mouth/Throat Lozenge (NICORET TE) 03/06/2021 12:00:00 AM EDT [address] 1 lozenge inside cheek every 2 (two) hours as needed for Smoking cessation [facility] Metformin hydrochloride 500 MG Oral Tablet metFORMIN ( GLUCOPHAGE) tablet 500 mg metFORMIN (GLUCOPHAGE) tablet 500 mg 03/03/2021 09:00:00 AM EDT 500 m g Oral active Type 2 Diabetes Mellitus 500 mg, Oral, 2 Times Daily With Meals, Indications: Type 2 Diabetes Mellitus, First dose on 03/03/21 at 0900, For 30 days [facility] Type 2 Diabetes Mellitus Medication administered onsite Tamsulosin hydrochloride 0.4 MG Oral Capsule tamsulosi n (FLOMAX) capsule 0.4 mg tamsulosin (FLOMAX) capsule 0.4 mg 03/03/2021 09:00:00 AM EDT 0.4 mg Oral active 0.4 mg, Oral, Daily Standard, First dose on 03/03/21 at 0900, For 30 days
Swallow whole. Do not crush, chew or open.
[facility] Medication administered onsite insulin lispro (HumaLOG) injection LOW DOSE EATING INS ULIN patients 1-8 Units [id number] 03/03/2021 08:00:00 AM EDT U Subcutaneous active 1-8 Units, Subcutaneous, Three Times Daily-With Meals, First dose on 03/03/21 at 0800, For 30 days
Nursing MUST open the 'SQ Insulin Dosing Charts' Sidebar Report, or, the Patient Summary or Summary Report within the ED.
[facility] Medication administered onsite Insulin Glargine 100 UNT/ML Injectable S olution insulin glargine (LANTUS) injection 24 Units insulin glargine (LANTUS) injection 24 Units 10:00:00 PM EDT 24 U Subcutaneous active 24 Units, Subcutaneous, Nightly, First dose on 03/02/21 at 2200, For 30 days
For blood glucose less than 70 mg/dL: follow hypoglycemia protocol ( H-) and notify provider.&amp ;nbsp; For blood glucose values between 70 mg/dL and 100 mg/dL at bedtime: provide snack (15 grams of carbohydrates) with some protein. Administer FULL DOSE of insulin glargine (LANTUS) after snack. Record snack in I&O's. For blood glucose more than 400 mg/dL: notify provider
[facility] Medication administered onsite quetiapine 300 MG Oral Tablet QUEtiapine (SEROquel) ta blet 600 mg QUEtiapine (SEROquel) tablet 600 mg 03/02/2021 10:00:00 PM EDT 600 mg Oral active 600 mg, Oral, Nightly, First dose on 03/02/21 at 220 0, For 30 days [facility] Medication administered onsite Haloperidol 10 MG Oral Tablet haloperidol (HALDOL) tab let 10 mg haloperidol (HALDOL) tablet 10 mg 03/02/2021 09:00:00 PM EDT 10 mg Oral active 10 mg, Oral, Three Times Daily Standard, First dose on 03/02/21 at 2100, For 30 days [facility] Medication administered onsite benztropine mesylate 1 MG Oral Tablet benztropine (COG ENTIN) tablet 1 mg benztropine (COGENTIN) tablet 1 mg 03/02/2021 09:00:00 PM EDT 1 mg Oral active 1 mg, Oral, 2 Times Daily, First dose on 03/02/21 at 2100, For 30 days [facility] Medication administered onsite gabapentin 300 MG Oral Capsule gabapentin (NEURONTIN) capsule 600 mg gabapentin (NEURONTIN) capsule 600 mg 03/02/2021 09:00:00 PM EDT 600 mg Oral active Fibromyalgia Syndrome 600 mg, Oral, Three Times D aily Standard, Indications: Fibromyalgia Syndrome, First dose on 03/02/21 at 2100, For 30 days [facility] Fibromyalgia Syndrome Medication administered onsite Baclofen 10 MG Oral Tablet baclofen (LIORESAL) tablet 10 mg baclofen (LIORESAL) tablet 10 mg 03/02/2021 09:00:00 PM EDT 10 mg Oral activ e 10 mg, Oral, 2 Times Daily, First dose on 03/02/21 at 2100, For 30 days [facility] Medication administered onsite Clonazepam 0.5 MG Oral Tablet clonazePAM (KLONOPIN) ta blet 0.5 mg clonazePAM (KLONOPIN) tablet 0.5 mg 03/02/2021 07:12:17 PM EDT 0.5 mg Oral active 0.5 mg, Oral, Daily PRN, anxiety, Starting on Sat at 1912, For 30 days [facility] Medication administered onsite Glucagon 1 MG Injection glucagon (human recombinant) ( GLUCAGEN) injection 1 mg glucagon (human recombinant) (GLUCAGEN) injection 1 mg 03/02/2021 07:12:16 PM EDT 1 mg Intramuscular active 1 mg, Intramuscular, PRN, for glucose <55 without IV access, Starting on 03/02/21 at 1912, For 30 days [facility] Medication administered onsite Glucose 0.417 MG/MG Oral Gel glucose (GLUTOSE) 40 % or al gel 15 g glucose (GLUTOSE) 40 % oral gel 15 g 03/02/2021 07:12:16 PM EDT 15 g Oral active 15 g, Oral, PRN, Low blood s ugar, for gluose 55-69 mg/dl and able to take PO, Starting on 03/02/21 at 1912, For 30 days [facility] Medication administered onsite dextrose 50 % IV solution 25 mL [id number] 03/02/2021 07:12:16 PM E DT 25 mL Intravenous active 25 mL, Intrav enous, PRN, Other, blood glucose <55, Starting on 03/02/21 at 1912, For 30 days
Not for midline administration.
[facility] Medication administered onsite Hydroxyzine Hydrochloride 50 MG Oral Tablet hydrOXYzin e (ATARAX) tablet 50 mg hydrOXYzine (ATARAX) tablet 50 mg 03/02/2021 07:02:30 PM EDT 50 mg Oral active 50 mg, Oral, Every 6 hours PRN, Anxiety, Sleep, Starting on 03/02/21 at 1902, For 30 days [facility] Medication administered onsite Nicotine 2 MG Oral Lozenge nicotine (NICORETTE) lozeng e 2 mg nicotine (NICORETTE) lozenge 2 mg 03/02/2021 07:02:20 PM EDT 2 mg Mouth/Th roat active 2 mg, Mouth/Throat, Every 2 hours PRN, Smoking cessation, Starting on 03/02/21 at 1902, For 30 days
Should not be chewed or swallowed; allow to dissolve slowly (~20-30 minutes)
[facility] Medication administered onsite Acetaminophen 325 MG Oral [...] mg from all sources in 24 hrs.
[facility] Medication administered onsite Clonazepam 0.5 MG Oral Tablet [Klonopin] Klonopin 02/21/2021 12 :00:00 AM EDT 0.5 mg by mouth completed <td ID="Me dicationRxNorm_3">569815</td><td ID="MedicationMedication_3">Klonopin</td><td ID="MedicationRoute_3">by mouth</td><td ID="MedicationRouteConcept_3">G67347</td><td ID="MedicationStartDate_3">02/21/2021</td><td ID="MedicationStopDate_3">03/08/2021</td><td ID="MedicationDosageFrequency_3">twice a day</td><td ID="MedicationDuration_3">15</td><td ID="MedicationFormulaStrength_3">0.5 mg</td><td ID="MedicationDosageForm_3">tablet</td><td ID="MedicationDosageFormCode_3"></td><td ID="MedicationDosageDescription_3"></td><td ID="MedicationMedicationId_3">[id number]</td><td ID="MedicationAccount_3">[id number]</td><td ID="MedicationNpid_3">[id number]</td><td ID="MedicationAuthorFirstName_3">Carlos Alberto</td><td ID="MedicationAuthorLastName_3">[place]en</td><td ID="MedicationTaxonomyCode_3">[id number]</td><td ID="MedicationTaxonomyDesc_3">Nurse Practitioner</td><td ID="MedicationPhoneNumber_3">[phone]</td> [facility] ([facility]) quetiapine 300 MG Oral Tablet quetiapine 02/03/2021 12:00:00 AM EDT 300 mg by mouth completed <td ID="Medica tionRxNorm_6">634894</td><td ID="MedicationMedication_6">quetiapine</td><td ID="MedicationRoute_6">by mouth</td><td ID="MedicationRouteConcept_6">G23368</td><td ID="MedicationStartDate_6">02/03/2021</td><td ID="MedicationStopDate_6">03/05/2021</td><td ID="MedicationDosageFrequency_6">at bedtime</td><td ID="MedicationDuration_6">30</td><td ID="MedicationFormulaStrength_6">300 mg</td><td ID="MedicationDosageForm_6">tablet</td><td ID="MedicationDosageFormCode_6"></td><td ID="MedicationDosageDescription_6"></td><td ID="MedicationMedicationId_6">[id number]</td><td ID="MedicationAccount_6">[id number]</td><td ID="MedicationNpid_6">[id number]</td><td ID="MedicationAuthorFirstName_6">Carlos Alberto</td><td ID="MedicationAuthorLastName_6">[place]en</td><td ID="MedicationTaxonomyCode_6">[id number]</td><td ID="MedicationTaxonomyDesc_6">Nurse Practitioner</td><td ID="MedicationPhoneNumber_6">[phone]</td> [facility] ([facility]) Clonazepam 0.5 MG Oral Tablet [Klonopin] Klonopin 01/31/2021 12 :00:00 AM EDT 0.5 mg by mouth completed <td ID="Me dicationRxNorm_2">296495</td><td ID="MedicationMedication_2">Klonopin</td><td ID="MedicationRoute_2">by mouth</td><td ID="MedicationRouteConcept_2">T13905</td><td ID="MedicationStartDate_2">01/31/2021</td><td ID="MedicationStopDate_2">02/15/2021</td><td ID="MedicationDosageFrequency_2">twice a day</td><td ID="MedicationDuration_2">15</td><td ID="MedicationFormulaStrength_2">0.5 mg</td><td ID="MedicationDosageForm_2">tablet</td><td ID="MedicationDosageFormCode_2"></td><td ID="MedicationDosageDescription_2"></td><td ID="MedicationMedicationId_2">[id number]</td><td ID="MedicationAccount_2">[id number]</td><td ID="MedicationNpid_2">[id number]</td><td ID="MedicationAuthorFirstName_2">Carlos Alberto</td><td ID="MedicationAuthorLastName_2">[place]en</td><td ID="MedicationTaxonomyCode_2">[id number]</td><td ID="MedicationTaxonomyDesc_2">Nurse Practitioner</td><td ID="MedicationPhoneNumber_2">[phone]</td> [facility] ([facility]) BLOOD SUGAR DIAGNOSTIC 01/21/2021 12:00:00 AM EDT [...] 300 mg by mouth completed <td ID="Medica tionRxNorm_1">444690</td><td ID="MedicationMedication_1">quetiapine</td><td ID="MedicationRoute_1">by mouth</td><td ID="MedicationRouteConcept_1">L27646</td><td ID="MedicationStartDate_1">01/03/2021</td><td ID="MedicationStopDate_1">02/02/2021</td><td ID="MedicationDosageFrequency_1">at bedtime</td><td ID="MedicationDuration_1">30</td><td ID="MedicationFormulaStrength_1">300 mg</td><td ID="MedicationDosageForm_1">tablet</td><td ID="MedicationDosageFormCode_1"></td><td ID="MedicationDosageDescription_1"></td><td ID="MedicationMedicationId_1">[id number]</td><td ID="MedicationAccount_1">[id number]</td><td ID="MedicationNpid_1">[id number]</td><td ID="MedicationAuthorFirstName_1">Carlos Alberto</td><td ID="MedicationAuthorLastName_1">[place]en</td><td ID="MedicationTaxonomyCode_1">[id number]</td><td ID="MedicationTaxonomyDesc_1">Nurse Practitioner</td><td ID="MedicationPhoneNumber_1">[phone]</td> [facility] ([facility]) gabapentin 300 MG Oral Capsule gabapentin 01/03/2021 12:00:00 AM EDT 300 mg by mouth completed <td ID="Medica tionRxNorm_4">828693</td><td ID="MedicationMedication_4">gabapentin</td><td ID="MedicationRoute_4">by mouth</td><td ID="MedicationRouteConcept_4">T41091</td><td ID="MedicationStartDate_4">01/03/2021</td><td ID="MedicationStopDate_4">03/04/2021</td><td ID="MedicationDosageFrequency_4">three times a day</td><td ID="MedicationDuration_4">30</td><td ID="MedicationFormulaStrength_4">300 mg</td><td ID="MedicationDosageForm_4">capsule</td><td ID="MedicationDosageFormCode_4"></td><td ID="MedicationDosageDescription_4"> </td><td ID="MedicationMedicationId_4">[id number]</td><td ID="MedicationAccount_4">[id number]</td><td ID="MedicationNpid_4">[id number]</td><td ID="MedicationAuthorFirstName_4">Carlos Alberto</td><td ID="MedicationAuthorLastName_4">[place]en</td><td ID="MedicationTaxonomyCode_4">[id number]</td><td ID="MedicationTaxonomyDesc_4">Nurse Practitioner</td><td ID="MedicationPhoneNumber_4">[phone]</td> [facility] ([facility]) gabapentin 300 MG Oral Capsule gabapentin 11/15/2020 12:00:00 AM EDT 300 mg by mouth completed <td ID="Medica tionRxNorm_2">321842</td><td ID="MedicationMedication_2">gabapentin</td><td ID="MedicationRoute_2">by mouth</td><td ID="MedicationRouteConcept_2">K49303</td><td ID="MedicationStartDate_2">11/15/2020</td><td ID="MedicationStopDate_2">12/15/2020</td><td ID="MedicationDosageFrequency_2">three times a day</td><td ID="MedicationDuration_2">30</td><td ID="MedicationFormulaStrength_2">300 mg</td><td ID="MedicationDosageForm_2">capsule</td><td ID="MedicationDosageFormCode_2"></td><td ID="MedicationDosageDescription_2"> </td><td ID="MedicationMedicationId_2">[id number]</td><td ID="MedicationAccount_2">[id number]</td><td ID="MedicationNpid_2">[id number]</td><td ID="MedicationAuthorFirstName_2">Carlos Alberto</td><td ID="MedicationAuthorLastName_2">[place]en</td><td ID="MedicationTaxonomyCode_2">[id number]</td><td ID="MedicationTaxonomyDesc_2">Nurse Practitioner</td><td ID="MedicationPhoneNumber_2">[phone]</td> [facility] ([facility]) Haloperidol 10 MG Oral Tablet haloperidol 11/15/2020 12:00:00 AM EDT 10 mg by mouth completed <td ID="Medica tionRxNorm_5">568422</td><td ID="MedicationMedication_5">haloperidol</td><td ID="MedicationRoute_5">by mouth</td><td ID="MedicationRouteConcept_5">Q93370</td><td ID="MedicationStartDate_5">11/15/2020</td><td ID="MedicationStopDate_5">03/04/2021</td><td ID="MedicationDosageFrequency_5">three times a day</td><td ID="MedicationDuration_5">30</td><td ID="MedicationFormulaStrength_5">10 mg</td><td ID="MedicationDosageForm_5">tablet</td><td ID="MedicationDosageFormCode_5"></td><td ID="MedicationDosageDescription_5"> </td><td ID="MedicationMedicationId_5">[id number]</td><td ID="MedicationAccount_5">[id number]</td><td ID="MedicationNpid_5">[id number]</td><td ID="MedicationAuthorFirstName_5">Carlos Alberto</td><td ID="MedicationAuthorLastName_5">[place]en</td><td ID="MedicationTaxonomyCode_5">[id number]</td><td ID="MedicationTaxonomyDesc_5">Nurse Practitioner</td><td ID="MedicationPhoneNumber_5">[phone]</td> [facility] ([facility]) benztropine mesylate 1 MG Oral Tablet benztropine 10/18/2020 12:00 :00 AM EDT 1 mg by mouth completed <td ID="Me dicationRxNorm_1">608466</td><td ID="MedicationMedication_1">benztropine</td><td ID="MedicationRoute_1">by mouth</td><td ID="MedicationRouteConcept_1">M35166</td><td ID="MedicationStartDate_1">10/18/2020</td><td ID="MedicationStopDate_1">03/04/2021</td><td ID="MedicationDosageFrequency_1">twice a day</td><td ID="MedicationDuration_1">30</td><td ID="MedicationFormulaStrength_1">1 mg</td><td ID="MedicationDosageForm_1">tablet</td><td ID="MedicationDosageFormCode_1"></td><td ID="MedicationDosageDescription_1"></td><td ID="MedicationMedicationId_1">[id number]</td><td ID="MedicationAccount_1">[id number]</td><td ID="MedicationNpid_1">[id number]</td><td ID="MedicationAuthorFirstName_1">Carlos Alberto</td><td ID="MedicationAuthorLastName_1">[place]</td><td ID="MedicationTaxonomyCode_1">[id number]</td><td ID="MedicationTaxonomyDesc_1">Nurse Practitioner</td><td ID="MedicationPhoneNumber_1">[phone]</td> [facility] ([facility]) benztropine mesylate 1 MG Oral Tablet benztropine 07/10/2020 12:00 :00 AM EST 1 mg by mouth completed <td ID="Me dicationRxNorm_2">597865</td><td ID="MedicationMedication_2">benztropine</td><td ID="MedicationRoute_2">by mouth</td><td ID="MedicationRouteConcept_2">J29162</td><td ID="MedicationStartDate_2">07/10/2020</td><td ID="MedicationStopDate_2">10/26/2020</td><td ID="MedicationDosageFrequency_2">at bedtime</td><td ID="MedicationDuration_2">30</td><td ID="MedicationFormulaStrength_2">1 mg</td><td ID="MedicationDosageForm_2">tablet</td><td ID="MedicationDosageFormCode_2"></td><td ID="MedicationDosageDescription_2"></td><td ID="MedicationMedicationId_2">[id number]</td><td ID="MedicationAccount_2">[id number]</td><td ID="MedicationNpid_2">[id number]</td><td ID="MedicationAuthorFirstName_2">Carlos Alberto</td><td ID="MedicationAuthorLastName_2">[place]</td><td ID="MedicationTaxonomyCode_2">[id number]</td><td ID="MedicationTaxonomyDesc_2">Nurse Practitioner</td><td ID="MedicationPhoneNumber_2">[phone]</td> [facility] ([facility] quetiapine 400 MG Oral Tablet quetiapine 06/12/2020 12:00:00 AM EST 400 mg by mouth completed <td ID="Medica tionRxNorm_3">698747</td><td ID="MedicationMedication_3">quetiapine</td><td ID="MedicationRoute_3">by mouth</td><td ID="MedicationRouteConcept_3">J79670</td><td ID="MedicationStartDate_3">06/12/2020</td><td ID="MedicationStopDate_3">09/10/2020</td><td ID="MedicationDosageFrequency_3">every night</td><td ID="MedicationDuration_3">30</td><td ID="MedicationFormulaStrength_3">400 mg</td><td ID="MedicationDosageForm_3">tablet</td><td ID="MedicationDosageFormCode_3"></td><td ID="MedicationDosageDescription_3"></td><td ID="MedicationMedicationId_3">[id number]</td><td ID="MedicationAccount_3">[id number]</td><td ID="MedicationNpid_3">[id number]</td><td ID="MedicationAuthorFirstName_3">Carlos Alberto</td><td ID="MedicationAuthorLastName_3">[place]</td><td ID="MedicationTaxonomyCode_3">[id number]</td><td ID="MedicationTaxonomyDesc_3">Nurse Practitioner</td><td ID="MedicationPhoneNumber_3">[phone]</td> [facility] ([facility]) Haloperidol 10 MG Oral Tablet haloperidol 06/12/2020 12:00:00 AM EST 10 mg by mouth completed <td ID="Medica tionRxNorm_1">083290</td><td ID="MedicationMedication_1">haloperidol</td><td ID="MedicationRoute_1">by mouth</td><td ID="MedicationRouteConcept_1">N56723</td><td ID="MedicationStartDate_1">06/12/2020</td><td ID="MedicationStopDate_1"></td><td ID="MedicationDosageFrequency_1">twice a day</td><td ID="MedicationDuration_1">30</td><td ID="MedicationFormulaStrength_1">10 mg</td><td ID="MedicationDosageForm_1">tablet</td><td ID="MedicationDosageFormCode_1"></td><td ID="MedicationDosageDescription_1"></td><td ID="MedicationMedicationId_1">[id number]</td><td ID="MedicationAccount_1">[id number]</td><td ID="MedicationNpid_1">[id number]</td><td ID="MedicationAuthorFirstName_1">Carlos Alberto</td><td ID="MedicationAuthorLastName_1">[place]</td><td ID="MedicationTaxonomyCode_1">[id number]</td><td ID="MedicationTaxonomyDesc_1">Nurse Practitioner</td><td ID="MedicationPhoneNumber_1">[phone]</td> [facility] ([facility]) quetiapine 400 MG Oral Tablet quetiapine 06/12/2020 12:00:00 AM EST 400 mg by mouth completed <td ID="Medica tionRxNorm_4">067532</td><td ID="MedicationMedication_4">quetiapine</td><td ID="MedicationRoute_4">by mouth</td><td ID="MedicationRouteConcept_4">H31853</td><td ID="MedicationStartDate_4">06/12/2020</td><td ID="MedicationStopDate_4">09/10/2020</td><td ID="MedicationDosageFrequency_4">every night</td><td ID="MedicationDuration_4">30</td><td ID="MedicationFormulaStrength_4">400 mg</td><td ID="MedicationDosageForm_4">tablet</td><td ID="MedicationDosageFormCode_4"></td><td ID="MedicationDosageDescription_4"></td><td ID="MedicationMedicationId_4">[id number]</td><td ID="MedicationAccount_4">[id number]</td><td ID="MedicationNpid_4">[id number]</td><td ID="MedicationAuthorFirstName_4">Carlos Alberto</td><td ID="MedicationAuthorLastName_4">[place]</td><td ID="MedicationTaxonomyCode_4">[id number]</td><td ID="MedicationTaxonomyDesc_4">Nurse Practitioner</td><td ID="MedicationPhoneNumber_4">[phone]</td> [facility] ([facility]) gabapentin 400 MG Oral Capsule gabapentin 06/12/2020 12:00:00 AM EST 400 mg by mouth completed <td ID="Medica tionRxNorm_3">028777</td><td ID="MedicationMedication_3">gabapentin</td><td ID="MedicationRoute_3">by mouth</td><td ID="MedicationRouteConcept_3">W51440</td><td ID="MedicationStartDate_3">06/12/2020</td><td ID="MedicationStopDate_3">09/10/2020</td><td ID="MedicationDosageFrequency_3">three times a day</td><td ID="MedicationDuration_3">30</td><td ID="MedicationFormulaStrength_3">400 mg</td><td ID="MedicationDosageForm_3">capsule</td><td ID="MedicationDosageFormCode_3"></td><td ID="MedicationDosageDescription_3"> </td><td ID="MedicationMedicationId_3">[id number]</td><td ID="MedicationAccount_3">[id number]</td><td ID="MedicationNpid_3">[id number]</td><td ID="MedicationAuthorFirstName_3">Carlos Alberto</td><td ID="MedicationAuthorLastName_3">[place]</td><td ID="MedicationTaxonomyCode_3">[id number]</td><td ID="MedicationTaxonomyDesc_3">Nurse Practitioner</td><td ID="MedicationPhoneNumber_3">[phone]</td> [facility] ([facility]) Trazodone Hydrochloride 100 MG Oral Tablet trazodone 04/09 12:00:00 AM EDT 100 mg by mouth completed <td ID="Medic ationRxNorm_5">252539</td><td ID="MedicationMedication_5">trazodone</td><td ID="MedicationRoute_5">by mouth</td><td ID="MedicationRouteConcept_5">S90093</td><td ID="MedicationStartDate_5">04/09/2020</td><td ID="MedicationStopDate_5">07/08/2020</td><td ID="MedicationDosageFrequency_5">at bedtime</td><td ID="MedicationDuration_5">30</td><td ID="MedicationFormulaStrength_5">100 mg</td><td ID="MedicationDosageForm_5">tablet</td><td ID="MedicationDosageFormCode_5"></td><td ID="MedicationDosageDescription_5"></td><td ID="MedicationMedicationId_5">[id number]</td><td ID="MedicationAccount_5">[id number]</td><td ID="MedicationNpid_5">[id number]</td><td ID="MedicationAuthorFirstName_5">Carlos Alberto</td><td ID="MedicationAuthorLastName_5">[place]</td><td ID="MedicationTaxonomyCode_5">[id number]</td><td ID="MedicationTaxonomyDesc_5">Nurse Practitioner</td><td ID="MedicationPhoneNumber_5">[phone]</td> [facility] ([facility]) gabapentin 300 MG Oral Capsule gabapentin 04/09/2020 12:00:00 AM EDT 300 mg by mouth completed <td ID="Medica tionRxNorm_6">866204</td><td ID="MedicationMedication_6">gabapentin</td><td ID="MedicationRoute_6">by mouth</td><td ID="MedicationRouteConcept_6">K14696</td><td ID="MedicationStartDate_6">04/09/2020</td><td ID="MedicationStopDate_6">07/08/2020</td><td ID="MedicationDosageFrequency_6">three times a day</td><td ID="MedicationDuration_6">30</td><td ID="MedicationFormulaStrength_6">300 mg</td><td ID="MedicationDosageForm_6">capsule</td><td ID="MedicationDosageFormCode_6"></td><td ID="MedicationDosageDescription_6"> </td><td ID="MedicationMedicationId_6">[id number]</td><td ID="MedicationAccount_6">[id number]</td><td ID="MedicationNpid_6">[id number]</td><td ID="MedicationAuthorFirstName_6">Carlos Alberto</td><td ID="MedicationAuthorLastName_6">[place]</td><td ID="MedicationTaxonomyCode_6">[id number]</td><td ID="MedicationTaxonomyDesc_6">Nurse Practitioner</td><td ID="MedicationPhoneNumber_6">[phone]</td> [facility] ([facility]) Haloperidol 10 MG Oral Tablet haloperidol 04/09/2020 12:00:00 AM EDT 10 mg by mouth completed <td ID="Medica tionRxNorm_2">653500</td><td ID="MedicationMedication_2">haloperidol</td><td ID="MedicationRoute_2">by mouth</td><td ID="MedicationRouteConcept_2">I08421</td><td ID="MedicationStartDate_2">04/09/2020</td><td ID="MedicationStopDate_2">05/09/2020</td><td ID="MedicationDosageFrequency_2">twice a day</td><td ID="MedicationDuration_2">30</td><td ID="MedicationFormulaStrength_2">10 mg</td><td ID="MedicationDosageForm_2">tablet</td><td ID="MedicationDosageFormCode_2"></td><td ID="MedicationDosageDescription_2"></td><td ID="MedicationMedicationId_2">[id number]</td><td ID="MedicationAccount_2">[id number]</td><td ID="MedicationNpid_2">[id number]</td><td ID="MedicationAuthorFirstName_2">Carlos Alberto</td><td ID="MedicationAuthorLastName_2">[place]</td><td ID="MedicationTaxonomyCode_2">[id number]</td><td ID="MedicationTaxonomyDesc_2">Nurse Practitioner</td><td ID="MedicationPhoneNumber_2">[phone]</td> [facility] ([facility]) Trazodone Hydrochloride 100 MG Oral Tablet trazodone 04/09 12:00:00 AM EDT 100 mg by mouth completed <td ID="Medic ationRxNorm_2">477131</td><td ID="MedicationMedication_2">trazodone</td><td ID="MedicationRoute_2">by mouth</td><td ID="MedicationRouteConcept_2">A39418</td><td ID="MedicationStartDate_2">04/09/2020</td><td ID="MedicationStopDate_2">09/10/2020</td><td ID="MedicationDosageFrequency_2">at bedtime</td><td ID="MedicationDuration_2">30</td><td ID="MedicationFormulaStrength_2">100 mg</td><td ID="MedicationDosageForm_2">tablet</td><td ID="MedicationDosageFormCode_2"></td><td ID="MedicationDosageDescription_2"></td><td ID="MedicationMedicationId_2">[id number]</td><td ID="MedicationAccount_2">[id number]</td><td ID="MedicationNpid_2">[id number]</td><td ID="MedicationAuthorFirstName_2">Carlos Alberto</td><td ID="MedicationAuthorLastName_2">[place]</td><td ID="MedicationTaxonomyCode_2">[id number]</td><td ID="MedicationTaxonomyDesc_2">Nurse Practitioner</td><td ID="MedicationPhoneNumber_2">[phone]</td> [facility] ([facility]) Trazodone Hydrochloride 100 MG Oral Tablet trazodone 04/09 12:00:00 AM EDT 100 mg by mouth completed <td ID="Medic ationRxNorm_3">913643</td><td ID="MedicationMedication_3">trazodone</td><td ID="MedicationRoute_3">by mouth</td><td ID="MedicationRouteConcept_3">P27174</td><td ID="MedicationStartDate_3">04/09/2020</td><td ID="MedicationStopDate_3">09/10/2020</td><td ID="MedicationDosageFrequency_3">at bedtime</td><td ID="MedicationDuration_3">30</td><td ID="MedicationFormulaStrength_3">100 mg</td><td ID="MedicationDosageForm_3">tablet</td><td ID="MedicationDosageFormCode_3"></td><td ID="MedicationDosageDescription_3"></td><td ID="MedicationMedicationId_3">[id number]</td><td ID="MedicationAccount_3">[id number]</td><td ID="MedicationNpid_3">[id number]</td><td ID="MedicationAuthorFirstName_3">Carlos Alberto</td><td ID="MedicationAuthorLastName_3">[place]</td><td ID="MedicationTaxonomyCode_3">[id number]</td><td ID="MedicationTaxonomyDesc_3">Nurse Practitioner</td><td ID="MedicationPhoneNumber_3">[phone]</td> [facility] ([facility]) Trazodone Hydrochloride 100 MG Oral Tablet trazodone 04/09 12:00:00 AM EDT 100 mg by mouth completed <td ID="Medic ationRxNorm_1">699527</td><td ID="MedicationMedication_1">trazodone</td><td ID="MedicationRoute_1">by mouth</td><td ID="MedicationRouteConcept_1">H27480</td><td ID="MedicationStartDate_1">04/09/2020</td><td ID="MedicationStopDate_1">07/08/2020</td><td ID="MedicationDosageFrequency_1">at bedtime</td><td ID="MedicationDuration_1">30</td><td ID="MedicationFormulaStrength_1">100 mg</td><td ID="MedicationDosageForm_1">tablet</td><td ID="MedicationDosageFormCode_1"></td><td ID="MedicationDosageDescription_1"></td><td ID="MedicationMedicationId_1">[id number]</td><td ID="MedicationAccount_1">[id number]</td><td ID="MedicationNpid_1">[id number]</td><td ID="MedicationAuthorFirstName_1">Carlos Alberto</td><td ID="MedicationAuthorLastName_1">[place]</td><td ID="MedicationTaxonomyCode_1">[id number]</td><td ID="MedicationTaxonomyDesc_1">Nurse Practitioner</td><td ID="MedicationPhoneNumber_1">[phone]</td> [facility] ([facility]) gabapentin 300 MG Oral Capsule gabapentin 04/02/2020 12:00:00 AM EDT 300 mg by mouth completed <td ID="Medica tionRxNorm_1">824351</td><td ID="MedicationMedication_1">gabapentin</td><td ID="MedicationRoute_1">by mouth</td><td ID="MedicationRouteConcept_1">M46059</td><td ID="MedicationStartDate_1">04/02/2020</td><td ID="MedicationStopDate_1">04/09/2020</td><td ID="MedicationDosageFrequency_1">three times a day</td><td ID="MedicationDuration_1">7</td><td ID="MedicationFormulaStrength_1">300 mg</td><td ID="MedicationDosageForm_1">capsule</td><td ID="MedicationDosageFormCode_1"></td><td ID="MedicationDosageDescription_1"> </td><td ID="MedicationMedicationId_1">[id number]</td><td ID="MedicationAccount_1">[id number]</td><td ID="MedicationNpid_1">[id number]</td><td ID="MedicationAuthorFirstName_1">Carlos Alberto</td><td ID="MedicationAuthorLastName_1">[place]</td><td ID="MedicationTaxonomyCode_1">[id number]</td><td ID="MedicationTaxonomyDesc_1">Nurse Practitioner</td><td ID="MedicationPhoneNumber_1">[phone]</td> [facility] ([facility] quetiapine 400 MG Oral Tablet [Seroquel] Seroquel 01/09/2020 12 :00:00 AM EDT 400 mg by mouth completed <td ID="Me dicationRxNorm_2">612055</td><td ID="MedicationMedication_2">Seroquel</td><td ID="MedicationRoute_2">by mouth</td><td ID="MedicationRouteConcept_2">G33309</td><td ID="MedicationStartDate_2">01/09/2020</td><td ID="MedicationStopDate_2">03/09/2020</td><td ID="MedicationDosageFrequency_2">at bedtime</td><td ID="MedicationDuration_2">30</td><td ID="MedicationFormulaStrength_2">400 mg</td><td ID="MedicationDosageForm_2">tablet</td><td ID="MedicationDosageFormCode_2"></td><td ID="MedicationDosageDescription_2"></td><td ID="MedicationMedicationId_2">[id number]</td><td ID="MedicationAccount_2">[id number]</td><td ID="MedicationNpid_2">[id number]</td><td ID="MedicationAuthorFirstName_2">Carlos Alberto</td><td ID="MedicationAuthorLastName_2">[place]</td><td ID="MedicationTaxonomyCode_2">[id number]</td><td ID="MedicationTaxonomyDesc_2">Nurse Practitioner</td><td ID="MedicationPhoneNumber_2">[phone]</td> [facility] ([facility]) gabapentin 300 MG Oral Capsule gabapentin 11/30/2019 12:00:00 AM EDT 300 mg completed <td ID="Medicat ionRxNorm_1">790365</td><td ID="MedicationMedication_1">gabapentin</td><td ID="MedicationRoute_1"></td><td ID="MedicationRouteConcept_1"></td><td ID="MedicationStartDate_1">11/30/2019</td><td ID="MedicationStopDate_1">03/09/2020</td><td ID="MedicationDosageFrequency_1"></td><td ID="MedicationDuration_1">30</td><td ID="MedicationFormulaStrength_1">300 mg</td><td ID="MedicationDosageForm_1">capsule</td><td ID="MedicationDosageFormCode_1"></td><td ID="MedicationDosageDescription_1"></td><td ID="MedicationMedicationId_1">[id number]</td><td ID="MedicationAccount_1">[id number]</td><td ID="MedicationNpid_1">[id number]</td><td ID="MedicationAuthorFirstName_1">Carlos Alberto</td><td ID="MedicationAuthorLastName_1">[place]</td><td ID="MedicationTaxonomyCode_1">[id number]</td><td ID="MedicationTaxonomyDesc_1">Nurse Practitioner</td><td ID="MedicationPhoneNumber_1">[phone]</td> [facility] ([facility]) 24 HR Metformin hydrochloride 500 MG Ext ended Release Oral Tablet metformin (GLUCOPHAGE-XR) 500 MG 24 hr tablet metformin (GLUCOPHAGE-XR) 500 MG 24 hr tablet 10/16/2014 12:00:00 AM EDT aborted [facility] quetiapine 100 MG Oral Tablet quetiapine (SEROQUEL) 10 0 MG tablet quetiapine (SEROQUEL) 100 MG tablet 09/08/2014 12:00:00 AM EDT aborted [facility] Trazodone Hydrochloride 100 MG Oral Tablet trazodone ( DESYREL) 100 MG tablet trazodone (DESYREL) 100 MG tablet 09/08/2014 12:00:00 AM EDT aborted [facility] 24 HR Glipizide 2.5 MG Extended Release Oral Tablet GLIPIZIDE XL 2.5 MG 24 hr tablet GLIPIZIDE XL 2.5 MG 24 hr tablet 01/20/2014 12:00:00 AM EDT aborted [facility] Cholecalciferol 2000 UNT Oral Capsule Vitamin D3 50 mc g (2,000 unit) capsule Vitamin D3 50 mcg (2,000 unit) capsule completed cholecalciferol 0.05 MG Oral Capsule [facility] ([facility]) Steglatro 15 mg tablet [id number] complete d ertugliflozin 15 MG Oral Tablet [Steglatro] [facility] ([facility]) Steglatro 5 mg tablet [id number] completed ertugliflozin 5 MG Oral Tablet [Steglatro] [facility] ([facility]) gabapentin 400 MG Oral Capsule gabapenti n 400 mg capsule TAKE ONE CAPSULE BY MOUTH FOUR TIMES DAILY gabapentin 400 mg capsule TAKE ONE CAPSU LE BY MOUTH FOUR TIMES DAILY completed gabapentin 400 MG Oral Capsule [facility] ([facility]) Naltrexone hydrochloride 50 MG Oral Tablet naltrexone 50 mg tablet naltrexone 50 mg tablet completed naltrexone hydrochloride 50 MG Oral Tablet [facility] ([facility]) OneTouch Ultra Blue Test Strip 267803 completed OneTouch Ultra Blue Test Strip [facility] ([facility]) Trazodone Hydrochloride 100 MG Oral Tabl et trazodone 100 mg tablet TAKE TWO TABLETS BY MOUTH AT BEDTIME trazodone 100 mg tablet TAKE TWO TABLETS BY MOUTH AT BEDTIME completed trazodone hyd rochloride 100 MG Oral Tablet [facility] ([facility]) tramadol hydrochloride 50 MG Oral Tablet tramadol 50 m g tablet tramadol 50 mg tablet completed tramadol hydroc hloride 50 MG Oral Tablet [facility] ([facility]) Metformin hydrochloride 850 MG Oral Tabl et metformin 850 mg tablet TAKE ONE TABLET BY MOUTH TWICE DAILY with meals metformin 850 mg tablet TAKE ONE TABLET BY MOUTH TWICE DAILY with meals comple jaylyn metformin hydrochloride 850 MG Oral Tablet [facility] ([facility]) Acetaminophen 300 MG / Codeine [...] 30 MG Oral Tablet [facility] ([facility]) Trazodone Hydrochloride 50 MG Oral Table t trazodone 50 mg tablet TAKE ONE TABLET BY MOUTH AT BEDTIME NEEDED trazodone 50 mg tablet TAKE ONE TABLET B Y MOUTH AT BEDTIME NEEDED completed trazodone hydrochloride 50 MG Oral Tablet [facility] ([facility]) Acetaminophen 300 MG / Codeine [...] 30 MG Oral Tablet [facility] ([facility]) pen needles mis [id number] completed pen needles mis [id number] [facility] ([facility]) meloxicam 15 MG Oral Tablet meloxicam 15 mg tablet meloxicam 15 mg ta blet completed meloxicam 15 MG Oral Tablet [facility] ([facility]) Trazodone Hydrochloride 50 MG Oral Table t trazodone 50 mg tablet TAKE ONE TABLET BY MOUTH AT BEDTIME NEEDED trazodone 50 mg tablet TAKE ONE TABLET B Y MOUTH AT BEDTIME NEEDED completed trazodone hydrochloride 50 MG Oral Tablet [facility] ([facility]) tizanidine 2 MG Oral Tablet tizanidine 2 mg tablet tizanidine 2 mg ta blet completed tizanidine 2 MG Oral Tablet [facility] ([facility]) OneTouch Ultra2 Meter kit [id number] compl eted OneTouch Ultra2 Meter kit [facility] ([facility]) Acetaminophen 300 MG / Codeine [...] 30 MG Oral Tablet [facility] ([facility]) celecoxib 200 MG Oral Capsule celecoxib 200 mg capsule celec oxib 200 mg capsule completed celecoxib 200 MG Oral Capsule [facility] ([facility]) tizanidine 2 MG Oral Tablet tizanidine 2 mg tablet tizanidine 2 mg ta blet completed tizanidine 2 MG Oral Tablet [facility] ([facility]) Steglatro 5 mg tablet TAKE ONE TABLET BY MOUTH ONCE DAILY [id number] completed ertugliflozin 5 MG Oral Tablet [ Steglatro] [facility] ([facility]) insulin syrg mis 1ml/29g completed insulin syrg mis 1ml/29g [facility] ([facility]) Naltrexone hydrochloride 50 MG Oral Tablet naltrexone 50 mg tablet naltrexone 50 mg tablet completed naltrexone hydrochloride 50 MG Oral Tablet [facility] ([facility]) insulin syrg mis 1ml/29g completed insulin syrg mis 1ml/29g [facility] ([facility]) Naltrexone hydrochloride 50 MG Oral Tablet naltrexone 50 mg tablet naltrexone 50 mg tablet completed naltrexone hydrochloride 50 MG Oral Tablet [facility] ([facility]) Trazodone Hydrochloride 50 MG Oral Table t trazodone 50 mg tablet TAKE ONE TABLET BY MOUTH AT BEDTIME NEEDED trazodone 50 mg tablet TAKE ONE TABLET B Y MOUTH AT BEDTIME NEEDED completed trazodone hydrochloride 50 MG Oral Tablet [facility] ([facility]) OneTouch Ultra Test strips ONE MISCELLANEOUS THREE TIMES A D AY NEEDED 147202 completed OneTouch Ultra Test strips [facility] ([facility]) quetiapine 300 MG Oral Tablet quetiapine 300 mg tablet queti apine 300 mg tablet completed quetiapine 300 MG Oral Tablet [facility] ([facility]) tizanidine 2 MG Oral Tablet tizanidine 2 mg tablet tizanidine 2 mg ta blet completed tizanidine 2 MG Oral Tablet [facility] ([facility]) insulin syrg mis 0.5/31g completed insulin syrg mis 0.5/31g [facility] ([facility]) OneTouch Ultra2 Meter kit 096921 compl eted OneTouch Ultra2 Meter kit [facility] ([facility]) OneTouch Ultra Blue Test Strip 159714 completed OneTouch Ultra Blue Test Strip [facility] ([facility]) Trazodone Hydrochloride 50 MG Oral Table t trazodone 50 mg tablet TAKE ONE TABLET BY MOUTH AT BEDTIME NEEDED trazodone 50 mg tablet TAKE ONE TABLET B Y MOUTH AT BEDTIME NEEDED completed trazodone hydrochloride 50 MG Oral Tablet [facility] ([facility]) OneTouch Ultra Blue Test Strip 427535 completed OneTouch Ultra Blue Test Strip [facility] ([facility]) celecoxib 200 MG Oral Capsule celecoxib 200 mg capsule celec oxib 200 mg capsule completed celecoxib 200 MG Oral Capsule [facility] ([facility]) Steglatro 5 mg tablet 154516 completed ertugliflozin 5 MG Oral Tablet [Steglatro] [facility] ([facility]) insulin syrg mis 0.5/31g completed insulin syrg mis 0.5/31g [facility] ([facility]) Steglatro 15 mg tablet 039596 complete d ertugliflozin 15 MG Oral Tablet [Steglatro] ROHWER ([facility]) OneTouch Ultra Blue Test Strip 770338 completed OneTouch Ultra Blue Test Strip [facility] ([facility]) insulin syrg mis 1ml/29g completed insulin syrg mis 1ml/29g [facility] ([facility]) Amoxicillin 500 MG Oral Capsule amoxicillin 500 mg cap willie amoxicillin 500 mg capsule completed amoxicillin 50 0 MG Oral Capsule [facility]OH[facility] ([facility]) Metformin hydrochloride 850 MG Oral Tabl et metformin 850 mg tablet TAKE ONE TABLET BY MOUTH TWICE DAILY with meals metformin 850 mg tablet TAKE ONE TABLET BY MOUTH TWICE DAILY with meals comple jaylyn metformin hydrochloride 850 MG Oral Tablet [facility]OH[facility] ([facility]) empagliflozin 25 MG Oral Tablet [Jardiance] Jardiance 25 mg tablet Jardiance 25 mg tablet completed empagliflozi n 25 MG Oral Tablet [Jardiance] [facility]OHW[facility] ([facility]) Levofloxacin 500 MG Oral Tablet levoflox acin 500 mg tablet TAKE ONE TABLET BY MOUTH ONCE DAILY levofloxacin 500 mg tablet TAKE ONE TABLET BY MOUTH ON CE DAILY completed levofloxacin 5 00 MG Oral Tablet [facility] ([facility]) Nicotine 2 MG Chewing Gum nicotine (efrain crilex) 2 mg gum CHEW ONE PIECE BY MOUTH EVERY 2 HOURS NEEDED nicotine (polacrilex) 2 mg gum CHEW ONE PIECE BY MOUTH EVERY 2 HOURS NEEDED completed nicotine 2 MG Chewing Gum [facility] ([facility]) Trazodone Hydrochloride 50 MG Oral Table t trazodone 50 mg tablet TAKE ONE TABLET BY MOUTH AT BEDTIME NEEDED trazodone 50 mg tablet TAKE ONE TABLET B Y MOUTH AT BEDTIME NEEDED completed trazodone hydrochloride 50 MG Oral Tablet [facility] ([facility]) Levofloxacin 500 MG Oral Tablet levoflox acin 500 mg tablet TAKE ONE TABLET BY MOUTH ONCE DAILY levofloxacin 500 mg tablet TAKE ONE TABLET BY MOUTH ON CE DAILY completed levofloxacin 5 00 MG Oral Tablet [facility] ([facility]) Trazodone Hydrochloride 100 MG Oral Tabl et trazodone 100 mg tablet TAKE TWO TABLETS BY MOUTH AT BEDTIME trazodone 100 mg tablet TAKE TWO TABLETS BY MOUTH AT BEDTIME completed trazodone hyd rochloride 100 MG Oral Tablet [facility] ([facility]) meloxicam 15 MG Oral Tablet meloxicam 15 mg tablet TAKE ONE TABLET BY MOUTH ONCE DAILY meloxicam 15 mg tablet TAKE ONE TABLET BY MOUTH ONCE DAILY completed meloxicam 15 MG Oral Tablet ATHE NA ([facility]) Naltrexone hydrochloride 50 MG Oral Tablet naltrexone 50 mg tablet naltrexone 50 mg tablet completed naltrexone hydrochloride 50 MG Oral Tablet [facility] ([facility]) OneTouch Ultra2 Meter USE DIRECTED TO TEST BLOOD ÁLVAREZ GAR THREE TIMES DAILY 312700 completed OneTouch Ultra2 Meter ROHWER ([facility]) insulin syrg mis 0.5/31g completed insulin syrg mis 0.5/31g [facility]OHW[facility] ([facility]) Levofloxacin 500 MG Oral Tablet levoflox acin 500 mg tablet TAKE ONE TABLET BY MOUTH ONCE DAILY levofloxacin 500 mg tablet TAKE ONE TABLET BY MOUTH ON CE DAILY completed levofloxacin 5 00 MG Oral Tablet [facility] ([facility]) insulin syrg mis 0.5/31g completed insulin syrg mis 0.5/31g [facility]OHW[facility] ([facility]) Trazodone Hydrochloride 50 MG Oral Table t traZODone HCl 50 MG Oral Tablet (DESYREL) traZODone HCl 50 MG Oral Tablet (DESYREL) 50 mg Oral aborted Take 50 mg by mouth nightly as needed f or Sleep [facility] Steglatro 15 mg tablet [id number] complete d ertugliflozin 15 MG Oral Tablet [Steglatro] [facility]ARTIR ([facility]) Nicotine 2 MG Chewing Gum nicotine (efrain crilex) 2 mg gum CHEW ONE PIECE BY MOUTH EVERY 2 HOURS NEEDED nicotine (polacrilex) 2 mg gum CHEW ONE PIECE BY MOUTH EVERY 2 HOURS NEEDED completed nicotine 2 MG Chewing Gum [facility] ([facility]) Steglatro 5 mg tablet 985857 completed ertugliflozin 5 MG Oral Tablet [Steglatro] [facility] ([facility] [facility] tizanidine 4 MG Oral Tablet tiZANidine HCl 4 MG Oral T ablet (ZANAFLEX) tiZANidine HCl 4 MG Oral Tablet (ZANAFLEX) 4 mg Oral aborted Take 4 mg by mouth Three times daily as needed [facility] Naltrexone hydrochloride 50 MG Oral Tablet naltrexone 50 mg tablet naltrexone 50 mg tablet completed naltrexone hydrochloride 50 MG Oral Tablet MARTIR ([facility]) empagliflozin 25 MG Oral Tablet [Jardiance] Jardiance 25 mg tablet Jardiance 25 mg tablet completed empagliflozi n 25 MG Oral Tablet [Jardiance] ROHWER ([facility]) Risperidone 4 MG Oral Tablet risperidone 4 mg tablet risperidone 4 mg tablet completed risperidone 4 MG Oral Tablet MARTIR ([facility]) Levofloxacin 500 MG Oral Tablet levoflox acin 500 mg tablet TAKE ONE TABLET BY MOUTH ONCE DAILY levofloxacin 500 mg tablet TAKE ONE TABLET BY MOUTH ON CE DAILY completed levofloxacin 5 00 MG Oral Tablet ROHWER ([facility]) Ergocalciferol 51014 UNT Oral Capsule Vi tamin D2 1,250 mcg (50,000 unit) capsule Vitamin D2 1,250 mcg (50,000 unit) capsule completed ergocalciferol 1.25 MG Oral Capsule ROHWER ([facility]) Risperidone 4 MG Oral Tablet risperidone 4 mg tablet risperidone 4 mg tablet completed risperidone 4 MG Oral Tablet ROHWER ([facility]) gabapentin 400 MG Oral Capsule gabapenti n 400 mg capsule TAKE ONE CAPSULE BY MOUTH FOUR TIMES DAILY gabapentin 400 mg capsule TAKE ONE CAPSU LE BY MOUTH FOUR TIMES DAILY completed gabapentin 400 MG Oral Capsule ROHWER ([facility]) tramadol hydrochloride 50 MG Oral Tablet tramadol 50 m g tablet tramadol 50 mg tablet completed tramadol hydroc hloride 50 MG Oral Tablet ROHWER ([facility]) OneTouch Ultra2 Meter kit [id number] compl eted [facility]Touch [facility]2 M[facility] Cephalexin 500 MG Oral Capsule cephalexin 500 mg capsu le cephalexin 500 mg capsule completed cephalexin 500 MG Oral Capsule ROHWER ([facility]) Regular Insulin, Human 100 UNT/ML Inject able Solution insulin regular (HUMULIN R) 100 UNIT/ML injection insulin regular (HUMULIN R) 100 UNIT/ML injection Subcutaneous aborted Inject into the skin Three times daily before meals. Sliding scale insulin [facility] Acetaminophen 325 MG / Hydrocodone Tete trate [...] hydrocodone bitartrate 5 MG Oral Tablet MARTIR ([facility]) Nicotine 2 MG Chewing Gum nicotine (efrain crilex) 2 mg gum CHEW ONE PIECE BY MOUTH EVERY 2 HOURS NEEDED nicotine (polacrilex) 2 mg gum CHEW ONE PIECE BY MOUTH EVERY 2 HOURS NEEDED completed nicotine 2 MG Chewing Gum MARTIR ([facility]) gabapentin 400 MG Oral Capsule gabapenti n 400 mg capsule TAKE ONE CAPSULE BY MOUTH FOUR TIMES DAILY gabapentin 400 mg capsule TAKE ONE CAPSU LE BY MOUTH FOUR TIMES DAILY completed gabapentin 400 MG Oral Capsule MARTIR ([facility]) OneTouch Delica Plus Lancet 33 gauge [id number] completed OneTouch Delica Plus Lancet 33 gauge MARTIR ([facility]) Cephalexin 500 MG Oral Capsule cephalexin 500 mg capsu le cephalexin 500 mg capsule completed cephalexin 500 MG Oral Capsule MARTIR ([facility]) Ergocalciferol 92852 UNT Oral Capsule Vi tamin D2 1,250 mcg (50,000 unit) capsule Vitamin D2 1,250 mcg (50,000 unit) capsule completed ergocalciferol 1.25 MG Oral Capsule MARTIR ([facility]) tizanidine 2 MG Oral Tablet tizanidine 2 mg tablet tizanidine 2 mg ta blet completed tizanidine 2 MG Oral Tablet MARTIR ([facility]) Acetaminophen 300 MG / Codeine Phosphate 30 MG Oral Tablet acetaminophen 300 mg- codeine 30 mg tablet acetaminophen 300 mg-codeine 30 mg tablet completed acetaminophen 300 MG / codeine p hosphate 30 MG Oral Tablet MARTIR ([facility]) Cephalexin 500 MG Oral Capsule cephalexin 500 mg capsu le cephalexin 500 mg capsule completed cephalexin 500 MG Oral Capsule MARTIR ([facility]) meloxicam 15 MG Oral Tablet meloxicam 15 mg tablet meloxicam 15 mg ta blet completed meloxicam 15 MG Oral Tablet MARTIR ([facility]) celecoxib 200 MG Oral Capsule celecoxib 200 mg capsule celec oxib 200 mg capsule completed celecoxib 200 MG Oral Capsule MARTIR ([facility]) BD Ultra-Fine Mini Pen Needle 31 gauge x 3/16" USE DIRECTED with insulin pens [id number] completed BD Ultra- Fine Mini Pen Needle 31 gauge x 3/16" MARTIR ([facility]) gabapentin 400 MG Oral Capsule gabapenti n 400 mg capsule TAKE ONE CAPSULE BY MOUTH FOUR TIMES DAILY gabapentin 400 mg capsule TAKE ONE CAPSU LE BY MOUTH FOUR TIMES DAILY completed gabapentin 400 MG Oral Capsule MARTIR ([facility]) quetiapine 200 MG Oral Tablet quetiapine 200 mg tablet TAKE ONE TABLET BY MOUTH EVERY EVENING quetiapine 200 mg tablet TAKE ONE TABLET BY MOUTH EVERY EVEN ING completed quetiapine 200 MG Oral Tablet MARTIR ([facility]) quetiapine 300 MG Oral Tablet quetiapine 300 mg tablet queti apine 300 mg tablet completed quetiapine 300 MG Oral Tablet MARTIR ([facility]) tizanidine 2 MG Oral Tablet tizanidine 2 mg tablet tizanidine 2 mg ta blet completed tizanidine 2 MG Oral Tablet MARTIR ([facility]) Trazodone Hydrochloride 100 MG Oral Tabl et trazodone 100 mg tablet TAKE TWO TABLETS BY MOUTH AT BEDTIME trazodone 100 mg tablet TAKE TWO TABLETS BY MOUTH AT BEDTIME completed trazodone hyd rochloride 100 MG Oral Tablet MARTRI ([facility]) OneTouch Ultra Test strips ONE MISCELLANEOUS THREE TIMES A D AY NEEDED [id number] completed OneTouch Ultra Test strips MARTIR ([facility]) quetiapine 400 MG Oral Tablet quetiapine 400 mg tablet TAKE ONE TABLET BY MOUTH EVERY EVENING quetiapine 400 mg tablet TAKE ONE TABLET BY MOUTH EVERY EVEN ING completed quetiapine 400 MG Oral Tablet MARTIR ([facility]) Trazodone Hydrochloride 50 MG Oral Table t trazodone 50 mg tablet TAKE ONE TABLET BY MOUTH AT BEDTIME NEEDED trazodone 50 mg tablet TAKE ONE TABLET B Y MOUTH AT BEDTIME NEEDED completed trazodone hydrochloride 50 MG Oral Tablet MARTIR ([facility]) Steglatro 5 mg tablet TAKE ONE TABLET BY MOUTH ONCE DAILY [id number] completed ertugliflozin 5 MG Oral Tablet [ Steglatro] MARTIR ([facility]) Steglatro 15 mg tablet [id number] complete d ertugliflozin 15 MG Oral Tablet [Steglatro] MARTIR ([facility]) celecoxib 200 MG Oral Capsule celecoxib 200 mg capsule celec oxib 200 mg capsule completed celecoxib 200 MG Oral Capsule MARTIR ([facility]) Risperidone 4 MG Oral Tablet risperidone 4 mg tablet risperidone 4 mg tablet completed risperidone 4 MG Oral Tablet MARTIR ([facility]) Amoxicillin 500 MG Oral Capsule amoxicillin 500 mg cap willie amoxicillin 500 mg capsule completed amoxicillin 50 0 MG Oral Capsule MARTIR ([facility]) insulin syrg mis 1ml/29g completed insulin syrg mis 1ml/29g MARTIR ([facility]) pen needles mis [id number] completed pen needles mis [id number] MARTIR ([facility]) quetiapine 400 MG Oral Tablet quetiapine 400 mg tablet TAKE ONE TABLET BY MOUTH EVERY EVENING quetiapine 400 mg tablet TAKE ONE TABLET BY MOUTH EVERY EVEN ING completed quetiapine 400 MG Oral Tablet MARTIR ([facility]) OneTouch Ultra2 Meter USE DIRECTED TO TEST BLOOD ÁLVAREZ GAR THREE TIMES DAILY [id number] completed OneTouch Ultra2 Meter MARTIR ([facility]) Risperidone 4 MG Oral Tablet risperidone 4 mg tablet risperidone 4 mg tablet completed risperidone 4 MG Oral Tablet MARTIR ([facility]) Acetaminophen 325 MG / Hydrocodone Tete [...] hydrocodone bitartrate 5 MG Oral Tablet MARTIR ([facility]) gabapentin 400 MG Oral Capsule gabapenti n 400 mg capsule TAKE ONE CAPSULE BY MOUTH FOUR TIMES DAILY gabapentin 400 mg capsule TAKE ONE CAPSU LE BY MOUTH FOUR TIMES DAILY completed gabapentin 400 MG Oral Capsule MARTIR ([facility]) OneTouch Ultra2 Meter USE DIRECTED TO TEST BLOOD ÁLVAREZ GAR THREE TIMES DAILY [id number] completed OneTouch Ultra2 Meter MARTIR ([facility]) Ibuprofen 800 MG Oral Tablet ibuprofen 8 00 mg tablet TAKE ONE TABLET BY MOUTH EVERY SIX HOURS NEEDED FOR PAIN ibuprofen 800 mg tablet TAKE ONE TABLET BY MOUTH EVERY SIX HOURS NEEDED FOR PAIN completed ibuprofen 800 MG Oral Tablet MARTIR ([facility]) Cholecalciferol 2000 UNT Oral Capsule Vitamin D3 50 mc g (2,000 unit) capsule Vitamin D3 50 mcg (2,000 unit) capsule completed cholecalciferol 0.05 MG Oral Capsule MARTIR ([facility]) Steglatro 5 mg tablet [id number] completed ertugliflozin 5 MG Oral Tablet [Steglatro] MARTIR ([facility]) pen needles mis [id number] completed pen needles mis [id number] MARTIR ([facility]) insulin syrg mis 1ml/29g completed insulin syrg mis 1ml/29g MARTIR ([facility]) quetiapine 400 MG Oral Tablet quetiapine 400 mg tablet TAKE ONE TABLET BY MOUTH EVERY EVENING quetiapine 400 mg tablet TAKE ONE TABLET BY MOUTH EVERY EVEN ING completed quetiapine 400 MG Oral Tablet MARTIR ([facility]) Acetaminophen 325 MG / Hydrocodone [...] hydrocodone bitartrate 5 MG Oral Tablet MARTIR ([facility]) Acetaminophen 300 MG / [...] 30 MG Oral Tablet MARTIR ([facility]) Cholecalciferol 2000 UNT Oral Capsule Vitamin D3 50 mc g (2,000 unit) capsule Vitamin D3 50 mcg (2,000 unit) capsule completed cholecalciferol 0.05 MG Oral Capsule MARTIR ([facility]) Cholecalciferol 2000 UNT Oral Capsule Vitamin D3 50 mc g (2,000 unit) capsule Vitamin D3 50 mcg (2,000 unit) capsule completed cholecalciferol 0.05 MG Oral Capsule MARTIR ([facility]) Nicotine 2 MG Chewing Gum nicotine (efrain crilex) 2 mg gum CHEW ONE PIECE BY MOUTH EVERY 2 HOURS NEEDED nicotine (polacrilex) 2 mg gum CHEW ONE PIECE BY MOUTH EVERY 2 HOURS NEEDED completed nicotine 2 MG Chewing Gum MARTIR ([facility]) Amoxicillin 500 MG Oral Capsule amoxicillin 500 mg cap willie amoxicillin 500 mg capsule completed amoxicillin 50 0 MG Oral Capsule MARTIR ([facility]) quetiapine 400 MG Oral Tablet quetiapine 400 mg tablet TAKE ONE TABLET BY MOUTH EVERY EVENING quetiapine 400 mg tablet TAKE ONE TABLET BY MOUTH EVERY EVEN ING completed quetiapine 400 MG Oral Tablet MARTIR ([facility]) Nicotine 2 MG Chewing Gum nicotine (efrain crilex) 2 mg gum CHEW ONE PIECE BY MOUTH EVERY 2 HOURS NEEDED nicotine (polacrilex) 2 mg gum CHEW ONE PIECE BY MOUTH EVERY 2 HOURS NEEDED completed nicotine 2 MG Chewing Gum MARTIR ([facility]) Steglatro 5 mg tablet TAKE ONE TABLET BY MOUTH ONCE DAILY [id number] completed ertugliflozin 5 MG Oral Tablet [ Steglatro] MARTIR ([facility]) gabapentin 400 MG Oral Capsule gabapenti n 400 mg capsule TAKE ONE CAPSULE BY MOUTH FOUR TIMES DAILY gabapentin 400 mg capsule TAKE ONE CAPSU LE BY MOUTH FOUR TIMES DAILY completed gabapentin 400 MG Oral Capsule MARTIR ([facility]) meloxicam 15 MG Oral Tablet meloxicam 15 mg tablet TAKE ONE TABLET BY MOUTH ONCE DAILY meloxicam 15 mg tablet TAKE ONE TABLET BY MOUTH ONCE DAILY completed meloxicam 15 MG Oral Tablet ATHE ([facility]) gabapentin 400 MG Oral Capsule gabapenti n 400 mg capsule TAKE ONE CAPSULE BY MOUTH FOUR TIMES DAILY gabapentin 400 mg capsule TAKE ONE CAPSU LE BY MOUTH FOUR TIMES DAILY completed gabapentin 400 MG Oral Capsule MARTIR ([facility]) meloxicam 15 MG Oral Tablet meloxicam 15 mg tablet meloxicam 15 mg ta blet completed meloxicam 15 MG Oral Tablet MARTIR ([facility]) Acetaminophen 325 MG / Hydrocodone [...] hydrocodone bitartrate 5 MG Oral Tablet MARTIR ([facility]) Acetaminophen 300 MG / [...] 30 MG Oral Tablet MARTIR ([facility]) Trazodone Hydrochloride 50 MG Oral Table t trazodone 50 mg tablet TAKE ONE TABLET BY MOUTH AT BEDTIME NEEDED trazodone 50 mg tablet TAKE ONE TABLET B Y MOUTH AT BEDTIME NEEDED completed trazodone hydrochloride 50 MG Oral Tablet MARTIR ([facility]) Metformin hydrochloride 850 MG Oral Tabl et metformin 850 mg tablet TAKE ONE TABLET BY MOUTH TWICE DAILY with meals metformin 850 mg tablet TAKE ONE TABLET BY MOUTH TWICE DAILY with meals comple jaylyn metformin hydrochloride 850 MG Oral Tablet MARTIR ([facility]) Cephalexin 500 MG Oral Capsule cephalexin 500 mg capsu le cephalexin 500 mg capsule completed cephalexin 500 MG Oral Capsule MARTIR ([facility]) Steglatro 5 mg tablet TAKE ONE TABLET BY MOUTH ONCE DAILY 722453 completed ertugliflozin 5 MG Oral Tablet [ Steglatro] MARTIR ([facility]) OneTouch Ultra2 Meter USE DIRECTED TO TEST BLOOD ÁLVAREZ GAR THREE TIMES DAILY 021853 completed OneTouch Ultra2 Meter MARTIR ([facility]) Metformin hydrochloride 850 MG Oral Tabl et metformin 850 mg tablet TAKE ONE TABLET BY MOUTH TWICE DAILY with meals metformin 850 mg tablet TAKE ONE TABLET BY MOUTH TWICE DAILY with meals comple jaylyn metformin hydrochloride 850 MG Oral Tablet MARTIR ([facility]) Steglatro 15 mg tablet [id number] complete d ertugliflozin 15 MG Oral Tablet [Steglatro] MARTIR ([facility]) meloxicam 15 MG Oral Tablet meloxicam 15 mg tablet meloxicam 15 mg ta blet completed meloxicam 15 MG Oral Tablet MARTIR ([facility]) OneTouch Ultra2 Meter kit [id number] compl eted OneTouch Ultra2 Meter kit MARTIR ([facility]) Metformin hydrochloride 850 MG Oral Tabl et metformin 850 mg tablet TAKE ONE TABLET BY MOUTH TWICE DAILY with meals metformin 850 mg tablet TAKE ONE TABLET BY MOUTH TWICE DAILY with meals comple jaylyn metformin hydrochloride 850 MG Oral Tablet MARTIR ([facility]) pen needles mis [id number] completed pen needles mis [id number] MARTIR ([facility]) Metformin hydrochloride 850 MG Oral Tabl et metformin 850 mg tablet TAKE ONE TABLET BY MOUTH TWICE DAILY with meals metformin 850 mg tablet TAKE ONE TABLET BY MOUTH TWICE DAILY with meals comple jaylyn metformin hydrochloride 850 MG Oral Tablet MARTIR ([facility]) tramadol hydrochloride 50 MG Oral Tablet tramadol 50 m g tablet tramadol 50 mg tablet completed tramadol hydroc hloride 50 MG Oral Tablet MARTIR ([facility]) gabapentin 300 MG Oral Capsule gabapenti n 300 mg capsule TAKE TWO CAPSULES BY MOUTH THREE TIMES DAILY gabapentin 300 mg capsule TAKE TWO CAPSU LES BY MOUTH THREE TIMES DAILY completed cari pentin 300 MG Oral Capsule MARTIR ([facility]) quetiapine 400 MG Oral Tablet quetiapine 400 mg tablet TAKE ONE TABLET BY MOUTH EVERY EVENING quetiapine 400 mg tablet TAKE ONE TABLET BY MOUTH EVERY EVEN ING completed quetiapine 400 MG Oral Tablet MARTIR ([facility]) Amoxicillin 500 MG Oral Capsule amoxicillin 500 mg cap willie amoxicillin 500 mg capsule completed amoxicillin 50 0 MG Oral Capsule MARTIR ([facility]) empagliflozin 25 MG Oral Tablet [Jardiance] Jardiance 25 mg tablet Jardiance 25 mg tablet completed empagliflozi n 25 MG Oral Tablet [Jardiance] MARTIR ([facility]) Steglatro 5 mg tablet [id number] completed ertugliflozin 5 MG Oral Tablet [Steglatro] MARTIR ([facility]) meloxicam 15 MG Oral Tablet meloxicam 15 mg tablet meloxicam 15 mg ta blet completed meloxicam 15 MG Oral Tablet MARTIR ([facility]) Cephalexin 500 MG Oral Capsule cephalexin 500 mg capsu le cephalexin 500 mg capsule completed cephalexin 500 MG Oral Capsule MARTIR ([facility]) empagliflozin 25 MG Oral Tablet [Jardiance] Jardiance 25 mg tablet Jardiance 25 mg tablet completed empagliflozi n 25 MG Oral Tablet [Jardiance] MARTIR ([facility]) tramadol hydrochloride 50 MG Oral Tablet tramadol 50 m g tablet tramadol 50 mg tablet completed tramadol hydroc hloride 50 MG Oral Tablet MARTIR ([facility]) OneTouch Ultra Blue Test Strip 018974 completed OneTouch Ultra Blue Test Strip ROHWER ([facility]) OneTouch Delica Plus Lancet 33 gauge 318334 completed OneTouch Delica Plus Lancet 33 gauge ROHWER ([facility]) pen needles mis [id number] completed pen needles mis [id number] ROHWER ([facility]) Trazodone Hydrochloride 100 MG Oral Tabl et trazodone 100 mg tablet TAKE TWO TABLETS BY MOUTH AT BEDTIME trazodone 100 mg tablet TAKE TWO TABLETS BY MOUTH AT BEDTIME completed trazodone hyd rochloride 100 MG Oral Tablet ROHWER ([facility]) celecoxib 200 MG Oral Capsule celecoxib 200 mg capsule celec oxib 200 mg capsule completed celecoxib 200 MG Oral Capsule ROHWER ([facility]) Risperidone 4 MG Oral Tablet risperidone 4 mg tablet risperidone 4 mg tablet completed risperidone 4 MG Oral Tablet ROHWER ([facility]) Nicotine 2 MG Chewing Gum nicotine (efrain crilex) 2 mg gum CHEW ONE PIECE BY MOUTH EVERY 2 HOURS NEEDED nicotine (polacrilex) 2 mg gum CHEW ONE PIECE BY MOUTH EVERY 2 HOURS NEEDED completed nicotine 2 MG Chewing Gum ROHWER ([facility]) BD Insulin Syringe Ultra-Fine 1 mL 30 ga uge x 1/2" use as directed to inject insulin five times a day ud 906858 completed BD Insulin Syringe Ultra-Fine 1 mL 30 gauge x 1/2" ROHWER ([facility]) Cholecalciferol 2000 UNT Oral Capsule Vitamin D3 50 mc g (2,000 unit) capsule Vitamin D3 50 mcg (2,000 unit) capsule completed cholecalciferol 0.05 MG Oral Capsule ROHWER ([facility]) tramadol hydrochloride 50 MG Oral Tablet tramadol 50 m g tablet tramadol 50 mg tablet completed tramadol hydroc hloride 50 MG Oral Tablet ROHWER ([facility]) Clonazepam 0.5 MG Oral Tablet clonazepam 0.5 mg tablet Take by oral route for 15 days. clonazepam 0.5 mg tablet Take by oral route for 15 days. completed clonazepam 0.5 MG Oral Tablet AT [facility] ([facility]) empagliflozin 25 MG Oral Tablet [Jardiance] Jardiance 25 mg tablet Jardiance 25 mg tablet completed empagliflozi n 25 MG Oral Tablet [Jardiance] ROHWER ([facility]) Amoxicillin 500 MG Oral Capsule amoxicillin 500 mg cap willie amoxicillin 500 mg capsule completed amoxicillin 50 0 MG Oral Capsule ROHWER ([facility]) Trazodone Hydrochloride 100 MG Oral Tabl et trazodone 100 mg tablet TAKE TWO TABLETS BY MOUTH AT BEDTIME trazodone 100 mg tablet TAKE TWO TABLETS BY MOUTH AT BEDTIME completed trazodone hyd rochloride 100 MG Oral Tablet ROHWER ([facility]) OneTouch Ultra2 Meter USE DIRECTED TO TEST BLOOD ÁLVAREZ GAR THREE TIMES DAILY 051107 completed OneTouch Ultra2 Meter ROHWER ([facility]) OneTouch Ultra2 Meter kit [id number] compl eted OneTouch Ultra2 Meter kit ROHWER ([facility]) insulin syrg mis 0.5/31g completed insulin syrg mis 0.5/31g ROHWER ([facility]) Nicotine 2 MG Chewing Gum nicotine (efrain crilex) 2 mg gum CHEW ONE PIECE BY MOUTH EVERY 2 HOURS NEEDED nicotine (polacrilex) 2 mg gum CHEW ONE PIECE BY MOUTH EVERY 2 HOURS NEEDED completed nicotine 2 MG Chewing Gum ROHWER ([facility]) Insurance Providers Payer name Policy type / Coverage type Policy ID Covered republican ID Covered republican's relationship to beard Policy Beard Plan Information [employer] HMO[employer] OPT[employer] [facility] 2 [id number] MEDICAID [id number] Self [id number] [employer] H[employer] [facility] 2 [id number] EXCELLUS I [id number] Self [id number] MEDICAID [id number] Shefali [id number] ONEAL MEDICAID [id number] Shefali 7 [id number] ONEAL I [id number] Self [id number] ONEAL I [id number] Self [id number] DENTAL DENTAQUEST I [id number] Self [id number] ONEAL MEDICAID [id number] Shefali 7 [id number] [facility] Community Plan Commercial [id number] Self [facility] Community Plan Medigap Part B [id number] Self [id number] [facility] Community Plan Medigap Part B [id number] Self [id number] Managed Care - Community Plan [facility] P [id number] S [id number] Medicaid S [id number] S [id number] Managed Care - Community Plan [facility] P [id number] S [id number] Managed Care - Community Plan [facility] P [id number] S [id number] Medicaid [place] Medigap Part B [id number] Self [id number] [place] Med[place] [id number] Self [id number] [place] Med[place] [id number] Self [id number] [place] Medig[place] Part [place] [id number] Self [id number] [facility] Community Plan Commercial [id number] Self [id number] Medicaid S [id number] S [id number] Medicaid [place] Medigap Part B [id number] Self [id number] Managed Care - Community Plan [facility] P [id number] S [id number] [facility] Community Plan Commercial [id number] Self [id number] Managed Care - [facility] Community Plan P [id number] S [id number] Medicaid [place] Medigap Part B [id number] Self [id number] [facility] Community Plan Commercial [id number] Self [id number] Medicaid S [id number] S [id number] Managed Care - [facility] Community Plan P [id number] S [id number] [facility] MEDICAID [id number] Self [id number] [facility] I [id number] Self [id number] [facility] [id number] Self [id number] MH OPTUM [id number] Self [id number] [facility] I [id number] Self [id number] BLUE CHOICE OPTION O [id number] S [id number] [employer] 2 [id number] SELFPAY 5 UNAVAILABLE 1 UNAVAILA BLE MEDICAID 3 [id number] BLUE CHOICE OPTIONS 7 [id number] [employer] OPT[employer] MC 2 [id number] [facility] 2 [id number] 1 [id number] [place] [id number] 1 [id number] BC HMOBLUE OPTION MC 2 [id number] 1 [id number] [employer] [place] O [id number] S [id number] MEDICAID W [id number] S [id number] [place]BS [place] O [id number] S [id number] SELF PAY UNA[place] B[place] 3 [id number] [facility] [id number] SP [id number] O UNAVAILABLE [facility]ILA BLE [facility] [facility] MCDO [id number] SP [id number] [facility] HMO [id number] SP [id number] [place] [id number] SP [id number] [facility] [id number] SP [id number] [facility] [id number] SP [id number] [facility] [id number] S [id number] [facility] [id number] SP [id number] [facility] MCDHMO [id number] SP [id number] [facility] [id number] ANSI-Medicaid [id number] [facility] O [id number] S [id number] ANSI-Medicaid [id number] ANSI-Medicaid [id number] MEDICAID [id number] SP [id number] [facility] [id number] SP [id number] Self Pay P [id number] S [id number] Self Pay P UNAVAILABLE S UNAVAILA BLE [facility] Community Plan Commercial [id number] Self [id number] [facility] Community Plan Commercial [id number] Self [id number] [facility] O [id number] S [id number] [facility] O [id number] S [id number] [facility] Community Plan Commercial [id number] Self [id number] [facility] Community Plan Commercial [id number] Self [id number] ONE[facility] [id number] SP [id number] [facility] P [id number] S [id number] [place] [id number] S [id number] [facility] DEPT.OF CORRECTIONAL [id number] SP [id number] STPP Wrap [id number] [place] [id number] [place] [id number] S [id number] [place] [place] S UN AVAILABLE MEDICAID W [id number] S [id number] HMO BLUE [employer] W [id number] S [id number] Problems, Conditions, and Diagnoses Code Display Name Description Problem Type Effective Dates Data Source(s) Z7984 halfway (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 of oral hypoglyc emic drugs terminal makeup operator (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 of oral hypoglycemic drugs Diagnosis 02/27/2021 10:13:00 PM EDT [facility] [id number] Nicotine dependence, unspecified, uncomp licated Nicotine dependence, unspecified, uncomplicated Diagnosis 02/27/2021 10:13:00 PM EDT [facility] E1165 Type 2 diabetes mellitus with hyperglyce elroy Type 2 diabetes mellitus with hyperglycemia Diagnosis 02/27/2021 10:13:00 PM EDT [facility] [id number] CONTACT WITH AND SUSPECTED EXPOSURE TO C OVID-19 CONTACT WITH AND SUSPECTED EXPOSURE TO COVID-19 Diagnosis 02/01/2021 11:44:[address] [facility] F329 Major depressive disorder, single episod e, unspecified Major depressive disorder, single episode, unspecified Diagnosis 02/01/2021 11:44:00 PM EDT 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 R443 Hallucinations, unspecified Hallucinations, unspecifie d Diagnosis 02/01/2021 11:44:00 PM EDT [facility] Z72.0 Tobacco use Tobacco use Diagnosis 11/06/2020 09:33:19 AM EDT [facility] F20.0 Paranoid schizophrenia Paranoid schizophrenia Diagnosi s 11/06/2020 09:33:09 AM EDT [facility] Z79.4 terminal makeup operator (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 of insulin terminal makeup operator (cu rrent) use of insulin Diagnosis 11/06/2020 09:33:04 AM EDT [facility] E11.9 Type 2 diabetes mellitus without complic ations Type 2 diabetes mellitus without complications Diagnosis 11/06/2020 09:33:04 AM EDT [facility] hypotension hypotension Diagnosis 10/30/2020 09:24:00 AM EDT [facility] Hypotension Hypotension Diagnosis 10/30/2020 09:24:00 AM EDT [facility] E86.0 Dehydration Dehydration Diagnosis 10/30/2020 09:24:00 AM EDT [facility] I95.9 Hypotension, unspecified Hypotension, unspecified Diag nosis 10/30/2020 09:24:00 AM EDT [facility] psych transfer psych transfer Diagnosis 10/28/2020 04:13: 00 PM EDT [facility] Psychiatric Evaluation Psychiatric Evaluation Diagnosi s 10/28/2020 04:13:00 PM EDT [facility] F51.02 Adjustment insomnia Adjustment insomnia Diagnosis 0 10/28/2020 04:13:00 PM EDT [facility] 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, un specified Extrapyramidal and movement disorder, unspecified Diagnosis 10/28/2020 04:13:00 PM EDT [facility] F39 Unspecified mood [affective] disorder Unspecifie d mood (affective) disorder Diagnosis 10/28/2020 04:13:00 PM EDT [facility] F20.9 Schizophrenia, unspecified Schizophrenia, unspecified Diagnosis 09/02/2020 06:18:57 AM [facility] Psychiatric Evaluation Psychiatric Evaluation Diagnosi s 09/01/2020 11:07:00 PM EST [facility] ems other ems other Diagnosis 09/01/2020 11:07:00 PM ES T [facility] F10.20 Alcohol dependence, uncomplicated Alcohol Use Di sorder, Moderate Condition 04/15/2021 12:00:00 AM EDT [facility] ([facility]) F20.0 Paranoid schizophrenia Paranoid schizophrenia Conditio n 04/15/2021 12:00:00 AM EDT [facility] ([facility]) [id number] Adult health examination Adult Health Examination Prob emily 03/18/2021 12:00:00 AM EDT [facility] ([facility]) [id number] Mixed anxiety and depressive disorder Mi xed Anxiety and Depressive Disorder Problem 03/18/2021 12:00:00 AM EDT [facility] ([facility]) [id number] Homeless Homeless Problem 01/16/2021 12:00:00 AM ED T [facility] ([facility]) F20.9 Schizophrenia, unspecified Schizophrenia Condition 10/08/2020 12:00:00 AM EDT [facility] ([facility]) [id number] Clinical finding Clinical Finding Problem 12:00:00 AM EDT - 06/13/2020 12:00:00 AM EST [facility] ([facility]) [id number] Clinical finding Clinical Finding Problem 12:00:00 AM EDT - 06/13/2020 12:00:00 AM EST [facility] ([facility]) [id number] Clinical finding Clinical Finding Problem 12:00:00 AM EDT - 06/13/2020 12:00:00 AM EST [facility] ([facility]) [id number] Clinical finding Clinical Finding Problem 12:00:00 AM EDT - 06/13/2020 12:00:00 AM EST [facility] ([facility]) [id number] Clinical finding Clinical Finding Problem 018 12:00:00 AM EST - 06/13/2020 12:00:00 AM EST [facility] ([facility]) [id number] Clinical finding Clinical Finding Problem 018 12:00:00 AM EST - 06/13/2020 12:00:00 AM EST [facility] ([facility]) [id number] Clinical finding Clinical Finding Problem 018 12:00:00 AM EST - 06/13/2020 12:00:00 AM EST [facility] ([facility]) [id number] Clinical finding Clinical Finding Problem 018 12:00:00 AM EST - 06/13/2020 12:00:00 AM EST [facility] ([facility]) [id number] Procedure Procedure Problem 12/02/2017 12:0 0:00 AM EDT - 06/13/2020 12:00:00 AM EST [facility] ([facility]) [id number] Procedure Procedure Problem 12/02/2017 12:0 0:00 AM EDT - 06/13/2020 12:00:00 AM EST [facility] ([facility]) [id number] Procedure Procedure Problem 12/02/2017 12:0 0:00 AM EDT - 06/13/2020 12:00:00 AM EST [facility] ([facility]) [id number] Procedure Procedure Problem 12/02/2017 12:0 0:00 AM EDT - 06/13/2020 12:00:00 AM EST [facility] ([facility]) [id number] SNOMED CT Concept SNOMED CT Concept Problem 12/10 12:00:00 AM EDT - 06/13/2020 12:00:00 AM EST [facility] ([facility]) [id number] SNOMED CT Concept SNOMED CT Concept Problem 12/10 12:00:00 AM EDT - 06/13/2020 12:00:00 AM EST [facility] ([facility]) [id number] SNOMED CT Concept SNOMED CT Concept Problem 12/10 12:00:00 AM EDT - 06/13/2020 12:00:00 AM EST [facility] ([facility]) [id number] SNOMED CT Concept SNOMED CT Concept Problem 12/10 12:00:00 AM EDT - 06/13/2020 12:00:00 AM EST [facility] ([facility]) Surgeries/Procedures Procedure Description Date Indications Data Source(s) Extended Individual Psychotherapy - 45 min 04/15/2021 12:00:00 AM EDT - 04/15/2021 12:00:00 AM EDT [facility] ([facility]) Extended Individual Psychotherapy - 45 min 12:00:00 AM EDT [facility] ([facility]) Brief Individual Psychotherapy - 30 min 03/21/2021 12:00:00 AM EDT - 03/21/2021 12:00:00 AM EDT [facility] ([facility]) Brief Individual Psychotherapy - 30 min 03/19/2021 12: 00:00 AM EDT [facility]) POCT GLUCOSE, DOCKED <td>POCT GLUCOSE, DOCKED</td ><td>Routine</td><td>03/06/2021 8:54 AM EDT</td><td></td><td> </td> 03/06/2021 08:54:00 AM [facility] GLUCOSE QUANTITATIVE BLOOD XCPT REAGENT STRIP <td>POCT GLUCOSE, DOCKED</td><td>Routine</td><td>03/05/2021 9:20 PM EDT</td><td></td><td> </td> 03/05/2021 09:20:00 PM [facility] GLUCOSE QUANTITATIVE BLOOD XCPT REAGENT STRIP <td>POCT GLUCOSE, DOCKED</td><td>Routine</td><td>03/05/2021 5:21 PM EDT</td><td></td><td> </td> 03/05/2021 05:21:00 PM [facility] GLUCOSE QUANTITATIVE BLOOD XCPT REAGENT STRIP <td>POCT GLUCOSE, DOCKED</td><td>Routine</td><td>03/05/2021 12:47 PM EDT</td><td></td><td> </td> 03/05/2021 12:47:00 PM [facility] GLUCOSE QUANTITATIVE BLOOD XCPT REAGENT STRIP <td>POCT GLUCOSE, DOCKED</td><td>Routine</td><td>03/05/2021 8:44 AM EDT</td><td></td><td> </td> 03/05/2021 08:44:00 AM [facility] GLUCOSE QUANTITATIVE BLOOD XCPT REAGENT STRIP <td>POCT GLUCOSE, DOCKED</td><td>Routine</td><td>03/04/2021 8:49 PM EDT</td><td></td><td> </td> 03/04/2021 08:49:00 PM [facility] GLUCOSE QUANTITATIVE BLOOD XCPT REAGENT STRIP <td>POCT GLUCOSE, DOCKED</td><td>Routine</td><td>03/04/2021 5:12 PM EDT</td><td></td><td> </td> 03/04/2021 05:12:00 PM [facility] GLUCOSE QUANTITATIVE BLOOD XCPT REAGENT STRIP <td>POCT GLUCOSE, DOCKED</td><td>Routine</td><td>03/04/2021 12:47 PM EDT</td><td></td><td> </td> 03/04/2021 12:47:00 PM [facility] GLUCOSE QUANTITATIVE BLOOD XCPT REAGENT STRIP <td>POCT GLUCOSE, DOCKED</td><td>Routine</td><td>03/04/2021 8:38 AM EDT</td><td></td><td> </td> 03/04/2021 08:38:00 AM [facility] GLUCOSE QUANTITATIVE BLOOD XCPT REAGENT STRIP <td>POCT GLUCOSE, DOCKED</td><td>Routine</td><td>03/03/2021 8:59 PM EDT</td><td></td><td> </td> 03/03/2021 08:59:00 PM [facility] GLUCOSE QUANTITATIVE BLOOD XCPT REAGENT STRIP <td>POCT GLUCOSE, DOCKED</td><td>Routine</td><td>03/03/2021 5:37 PM EDT</td><td></td><td> </td> 03/03/2021 05:37:00 PM [facility] GLUCOSE QUANTITATIVE BLOOD XCPT REAGENT STRIP <td>POCT GLUCOSE, DOCKED</td><td>Routine</td><td>03/03/2021 12:42 PM EDT</td><td></td><td> </td> 03/03/2021 12:42:00 PM [facility] GLUCOSE QUANTITATIVE BLOOD XCPT REAGENT STRIP <td>POCT GLUCOSE, DOCKED</td><td>Routine</td><td>03/03/2021 8:50 AM EDT</td><td></td><td> </td> 03/03/2021 08:50:00 AM [facility] GLUCOSE QUANTITATIVE BLOOD XCPT REAGENT STRIP <td>POCT GLUCOSE, DOCKED</td><td>Routine</td><td>03/02/2021 8:10 PM EDT</td><td></td><td> </td> 03/02/2021 08:10:00 PM [facility] Brief Individual Psychotherapy - 30 min 02/26/2021 12:00:00 AM EDT - 02/26/2021 12:00:00 AM EDT [facility] ([facility]) Brief Individual Psychotherapy - 30 min 02/26/2021 12: 00:00 AM EDT [facility]) MRI, lumbar spine, w/o contrast 02/05/2021 12:00:00 AM EDT [facility] ([facility]) MRI, hip, w/o contrast 02/05/2021 12:00:00 AM EDT [facility] ([facility]) MRI, hip, w/o contrast 02/05/2021 12:00:00 AM EDT [facility] ([facility]) OFFICE OUTPATIENT VISIT 15 MINUTES 01/31 12:00:00 AM EDT - 01/31/2021 12:00:00 AM EDT [facility] ([facility]) OFFICE OUTPATIENT VISIT 15 MINUTES 01/31/2021 12:00:00 AM EDT [facility] ([facility]) Extended Individual Psychotherapy - 45 min 01/31/2021 12:00:00 AM EDT - 01/31/2021 12:00:00 AM EDT [facility] ([facility]) Extended Individual Psychotherapy - 45 min 12:00:00 AM EDT [facility] ([facility]) OFFICE OUTPATIENT VISIT 15 MINUTES 12/13 12:00:00 AM EDT - 12/13/2020 12:00:00 AM EDT [facility] ([facility]) OFFICE OUTPATIENT VISIT 15 MINUTES 12/13/2020 12:00:00 AM EDT [facility] ([facility]) MHC Telemed E/M Lvl 3--Est pt 11/22/2020 12:00:00 AM EDT - 11/22/2020 12:00:00 AM EDT [facility] ([facility]) MHC Telemed E/M Lvl 3--Est pt 11/22/2020 12:00:00 AM E DT [facility] ([facility]) OFFICE OUTPATIENT VISIT 15 MINUTES 10/18 12:00:00 AM EDT - 10/18/2020 12:00:00 AM EDT [facility] ([facility]) Psychotherapy ADD ON - 30 Minutes 10/18/2020 12:00:00 AM EDT [facility] ([facility]) OFFICE OUTPATIENT VISIT 15 MINUTES 10/18/2020 12:00:00 AM EDT [facility] ([facility]) Brief Individual Psychotherapy - 30 min 10/08/2020 12:00:00 AM EDT - 10/08/2020 12:00:00 AM EDT [facility] ([facility]) Brief Individual Psychotherapy - 30 min 10/08/2020 12: 00:00 AM EDT [facility] ([facility]) OFFICE OUTPATIENT VISIT 15 MINUTES 10/01 12:00:00 AM EDT - 10/01/2020 12:00:00 AM EDT [facility] ([facility]) OFFICE OUTPATIENT VISIT 15 MINUTES 10/01/2020 12:00:00 AM EDT [facility] ([facility]) TEMPMHCTelemed--Crisis Brief 08/27/2020 12:00:00 AM EST - 08/27/2020 12:00:00 AM EST [facility] ([facility]) TEMPMHCTelemed--Crisis Brief 08/27/2020 12:00:00 AM ES T [facility] ([facility]) Brief Individual Psychotherapy - 30 min 08/03/2020 12:00:00 AM EST - 08/03/2020 12:00:00 AM EST [facility] ([facility]) Brief Individual Psychotherapy - 30 min 08/02/2020 12: 00:00 AM EST [facility] ([facility]) MHC Telemed E/M Lvl 3--Est pt 07/10/2020 12:00:00 AM EST - 07/10/2020 12:00:00 AM EST [facility] ([facility]) MHC Telemed E/M Lvl 3--Est pt 07/10/2020 12:00:[address] [facility] ([facility]) Brief Individual Psychotherapy - 30 min 06/14/2020 12:00:00 AM EST - 06/14/2020 12:00:00 AM EST [facility] ([facility]) Brief Individual Psychotherapy - 30 min 06/14/2020 12: 00:00 AM EST [facility] ([facility]) OFFICE OUTPATIENT VISIT 15 MINUTES 06/12 12:00:00 AM EST - 06/12/2020 12:00:00 AM EST [facility] ([facility]) OFFICE OUTPATIENT VISIT 15 MINUTES 06/12/2020 12:00:00 AM EST [facility] ([facility]) Brief Individual Psychotherapy - 30 min 04/24/2020 12:00:00 AM EDT - 04/24/2020 12:00:00 AM EDT [facility] ([facility]) Brief Individual Psychotherapy - 30 min 04/24/2020 12: 00:00 AM EDT [facility] ([facility]) OFFICE OUTPATIENT VISIT 15 MINUTES 04/09 12:00:00 AM EDT - 04/09/2020 12:00:00 AM EDT [facility] ([facility]) OFFICE OUTPATIENT VISIT 15 MINUTES 04/09/2020 12:00:00 AM EDT [facility] ([facility]) Brief Individual Psychotherapy - 30 min 04/02/2020 12:00:00 AM EDT - 04/02/2020 12:00:00 AM EDT [facility] ([facility]) Brief Individual Psychotherapy - 30 min 04/02/2020 12: 00:00 AM EDT [facility] ([facility]) Results ID Date Data Source [id number] 05/03/2021 09:24:00 PM EDT [facility] Name Value Range Interpretation Code Description Data Fabiola rce(s) Supporting Document(s) SARS coronavirus 2 RNA [Presence] in Res piratory specimen by WILEY with probe detection NEGATIVE [facility] This lab was ordered by [facility] a nd reported by [facility]. ID Date Data Source [id number] 04/22/2021 12:00:00 AM EDT [facility] ([facility]) Name Value Range Interpretation Code Description Data Fabiola rce(s) Supporting Document(s) SARS-CoV-2 (COVID-19) RNA [Presence] in Respiratory specimen by WILEY with probe detection negative negative Sars-cov-2 [facility] ([facility]) ID Date Data Source [id number] 04/22/2021 12:00:00 AM EDT [facility] ([facility]) Name Value Range Interpretation Code Description Data Fabiola rce(s) Supporting Document(s) ID Date Data Source [id number] 04/22/2021 12:00:00 AM EDT [facility] Name Value Range Interpretation Code Description Data Fabiola rce(s) Supporting Document(s) SARS-CoV-2 NEGATIVE [facility] This lab was ordered by [facility] [employer] [facility] and reported by [employer]. ID Date Data Source [id number] 03/15/2021 11:26:00 AM EDT [facility] ([facility]) Name Value Range Interpretation Code Description Data Fabiola rce(s) Supporting Document(s) Blood Glucose: mg/dl Blood Glucose: mg/dl [facility] ([facility]) ID Date Data Source [id number] 03/06/2021 10:25:[address] [facility] Name Value Range Interpretation Code Description Data Fabiola rce(s) Supporting Document(s) Discharge Summary [facility] BVPQFt3wRdGKIwCb58/PXZcwOQGji9WgBDwxLZs7BEpaTUDyJ0BjXTZ4fA1eZLS7KMzDQjMzHxOpSSK5 lbm [file] Q+rosa leena/gs3gKT+S45Hm9GT2ZUaIij6kMB1V15kU8NdVyn/h9/AG+hD/Hr4PFQY8pSt4sTSN2m3JLsB3VU2 [file] AgICAgICAgICAgICAgICAgICAgICAgICAgICAgICAg ICAgICAgICAgICAgICAgICAgICAgICAgICAgICAgICANCiAgICAgICAgICAgICAgICAgICAgICAgICAg ICAgICAgICAgICAgICAgICAgICAgICAgICAgICAgICAgICAgICAgICAgICAgICAgICAgICAgICAgICAg ICAgICAgICAgICAgICANCiAgICAgICAgICAgICAgIC AgICAgICAgICAgICAgICAgICAgICAgICAgICAgICAgICAgICAgICAgICAgICAgICAgICAgICAgICAgIC AgICAgICAgICAgICAgICAgICAgICAgICANCiAgICAgICAgICAgICAgICAgICAgICAgICAgICAgICAgIC AgICAgICAgICAgICAgICAgICAgICAgICAgICAgICAg ICAgICAgICAgICAgICAgICAgICAgICAgICAgICAgICAgICANCiAgICAgICAgICAgICAgICAgICAgICAg ICAgICAgICAgICAgICAgICAgICAgICAgICAgICAgICAgICAgICAgICAgICAgICAgICAgICAgICAgICAg ICAgICAgICAgICAgICAgICANCiAgICAgICAgICAgIC AgICAgICAgICAgICAgICAgICAgICAgICAgICAgICAgICAgICAgICAgICAgICAgICAgICAgICAgICAgIC AgICAgICAgICAgICAgICAgICAgICAgICAgICANCiAgICAgICAgICAgICAgICAgICAgICAgICAgICAgIC AgICAgICAgICAgICAgICAgICAgICAgICAgICAgICAg ICAgICAgICAgICAgICAgICAgICAgICAgICAgICAgICAgICAgICANCiAgICAgICAgICAgICAgICAgICAg ICAgICAgICAgICAgICAgICAgICAgICAgICAgICAgICAgICAgICAgICAgICAgICAgICAgICAgICAgICAg ICAgICAgICAgICAgICAgICAgICANCiAgICAgICAgIC AgICAgICAgICAgICAgICAgICAgICAgICAgICAgICAgICAgICAgICAgICAgICAgICAgICAgICAgICAgIC AgICAgICAgICAgICAgICAgICAgICAgICAgICAgICANCiAgICAgICAgICAgICAgICAgICAgICAgICAgIC AgICAgICAgICAgICAgICAgICAgICAgICAgICAgICAg ICAgICAgICAgICAgICAgICAgICAgICAgICAgICAgICAgICAgICAgICANCjw/gGIvU7rbxZHlyeS5H1mb Yv9OLd6VRU1qu1UmZQGkLMlgowQnResMUnTyNRDsOunIJjo1UDorKR9TwTVkG2IdS2AyOMbxVQ0XDWWl GUXqrQJzEXGrYYKeKjE9SMWzHBgpPY6BxATiTTwrGF QbICGnKsCzHMYuLLMpDUQpPJOhSTJXQDYqQGMdBbFnZUCsAENcLXslSDHRHMM6TSFxIdEhRWutWY0Gk6 YhkMY4KNs+Iz8HUG3hv0JqUWk1MbWhZL9qqn8PUNeOGuKmP5FvniD4UNF3DSVsCq2BSKZrFOWboBS4LF YlZBQDKeNoF5WolP58BXTUCa5+DQplbmRvYmoNCjU0 LZZni0AoCIv7OW7HHWRsNFk6qFJiLFvwJ9zojxolTZV0oD2rvcwuKfuhPXenRLJRGGkkc06dZHxjvWTt fhkpAWVQUKB3FOhvUU3jPKSbEEJ7PkCtSXOKUI4SGOAwBRAkmEImFHZcLANLNR5QHExiNBX4GMDvdzRa cXXjHCezYM8PGYUxzuKaQDYnKWIRJMn+Gh6BXW8ph5 LrTMi7YCIwMD9lik7GZKfTUxEoV0J5oALfO7H9WQwiWq2BMKTiQRPvHUOsGYEEKQpdSF7DMH3zizW5IP 2XjZJnLKRbFVBqySFrFFd2M33pwSZvJLyoVI4QJGK+Anais+Ef2EACAsNCDiCEIiOzRxKSQSOxKtN3UuI0 MOl7KhI1VyKY44vAwaeqEyOUkpTO9LIS7hZOOgYKKT GP9SbCKvdW9tjdM1OnZiDDWHBnYnB73eeYEbHOYzLNCnJQXfTo8HYLAsF0PiflMxoOwgbpPgRDXhGVUP DP2SUYuyzgKhpRWbxPduUP06dLdjVO8HJa7VGiQxAT0jju5IdYVnCv4ZZPB1Wc8JJGPlYAErGGByFOC5 ZEAuRwSaSHyjKNDnZYLbKVN9BDYrRPXgAF5ENvKcTW DjRKW1TqlxMFBfHILggr2KPQGbPTD8SmS1RiSjAFFgUZDvUVkeZLJkFDKwBYK5PEBdKQWyTZ9PCjCyJR KrCIV8GHTsXXOgTTCmce1ABXYeFVVaJCKsLUNoJAWbHIOcANpeNAOxPEE5YSM2DNAmDSVtGA4GKcUnZN DxGDdnXhecFBEcWUUmbn2XSFXgMUEqJSP5LlHqCJOn PIZlQUupFUIcBNDsRnG7KJOgHIHeEU7PYnPqOPMwTET8DtPwUNPmEMSmqe8RCRHgWFEtEJr1RoUwOEYt EPClIVajJJUbYYX3YItqTYSmWUAmNY4OSaUbOCAbYRkbVNxoKGExUNVxba0WGZZpWNSlQaYdYKReWLEr CXWbHWinSYPpJELvGsMwJEGdVCFyPG5GNqDpHOMmAt HkQakpBNJuAPPdsd1ZXKGyLKSaHOF1CbVoMEGlGSLsXFmhTNOhPVT0HxXwPZXxVVApEO0HGjIeAQGzPj q7GzphXAQiMZPxhk1SCNQjAOXtWRhrXhCyWJGsAUDiDOvhNSDaJHY6YQQ1RRWvJRVcQN0LAlCrKROjEc drTUagGRYmNJYeow1OXFLgOOCaMGK5OmExBMOqUZMu PSzhMGSnLQKkFcA3YPMgKZDmKR0CMcLiTPCiIwA5HIQgPSFgVRNrpr0XDMQxHIRaFDPoMSWhWARlXCCv VBtzOEOtTCHqHmS4EYNoOARmHW2MArJvOFXuIcZ9RIRmSWHqNFBpmc7VODUmFOPfWys2QIBxENIyRCBl HLnoMTQaKRNgSKUhUXEaLNRuDV1RKpXpASVjIyLxGC LvWIZfAZZmih3RCBStAWQdUFXzMMYaRNIcOHUqUJziOOCgZGH9LZE1KPJxWCMwLK9FJfVlDJGhFiE9JR cfWIDdLYFjpg3QBJJjKYF8FGt5SOIwDQOmXJLhPWpfSJFhUMU1TtViSOMgLFYvUG9QCqInMKUwYFJ0AP RbQIWwWZLmml9MOZRcTWN7Rtv9JDOlLFNoBXOcMZem UOVqBCQ2NWf7FWAaYHQvYM6KIiCoYEToQLQ1GOPmBVKcORIftb5DOSEqNFE4BnP4TIXgEVAkIPLkHCwc XAIkMXDfPnmcSXEjGTGsUH4TLxOwIKIbXLU7YyIpICSiLJLhkj5QSRQeVDL9XjP5IICbFWEkRBIvJMon PLMgTGYkFOKhQEYrATWoBL2DYjMcONCpZCYnTDXyDF NzZYBfkx1POAJeCRP3LhQ0ElUdMOOaPGIfUCczXPEtBDB4ZzDiJCFgOVCfMJ0HLuIzJOKdIJG7NwHkEU QtPYSijd0ZXVNlZAB8GAMpMaBoGOUiAVRdUStkWSSaXKN5BWGrVYHiXVQmRI7OLfAvOJKjNKX2BNieYI CpEVLsep0SAVKfLIH7VgB2RDNuFEOcNHYdPTaiOMOf EDU6YFP0EONeBCZmNV9DAbIiOHkmNEBXYfx3YRvbQ3i9HSD6Pj3SL2Vxb0WePCMcBVVCVAfpWI5oasWu TYIoRs1CG7aRSfgdFSJsPaM5TkJ8NNCqEvdcVuJxPdB4W5VvSrAdTTGvWY0bGIHwXAUgSBW5NLY1NGRh B0HqIDW4Ahq4XOUpThB6ZBO7LyKuUE0LXf3LWwK8DRW9nENqSj2WFJgoXiXLElNdGC6XFEn= ID Date Data Source [id number] [facility]/06[facility]21 08[facility]58[facility] Code Description Data Fabiola rce(s) Supporting Document(s) Glucose [Mass/volume] in Capillary blood by Glucometer 152 mg/dL 70- 140 [facility] ID Date Data Source [id number] 03/[facility] 09:22[facility] Code Description Data Fabiola rce(s) Supporting Document(s) Glucose [Mass/volume] in Capillary blood by Glucometer 208 mg/dL 70- 140 [facility] ID Date Data Source [id number] 03/05/2021 05:24:04 PM [facility] Value Range Interpretation Code Description Data Fabiola rce(s) Supporting Document(s) Glucose [Mass/volume] in Capillary blood by Glucometer 142 mg/dL 70- 140 [facility] ID Date Data Source [id number] 03/05/2021 01:23:55 PM [facility] Value Range Interpretation Code Description Data Fabiola rce(s) Supporting Document(s) Glucose [Mass/volume] in Capillary blood by Glucometer 177 mg/dL 70- 140 [facility] ID Date Data Source [id number] 03/05/2021 08:46:29 AM [facility] Value Range Interpretation Code Description Data Fabiola rce(s) Supporting Document(s) Glucose [Mass/volume] in Capillary blood by Glucometer 135 mg/dL 70- 140 [facility] ID Date Data Source [id number] 03/04/2021 08:53:42 PM [facility] Value Range Interpretation Code Description Data Fabiola rce(s) Supporting Document(s) Glucose [Mass/volume] in Capillary blood by Glucometer 150 mg/dL 70- 140 [facility] ID Date Data Source [id number] 03/04/2021 05:16:08 PM [facility] Value Range Interpretation Code Description Data Fabiola rce(s) Supporting Document(s) Glucose [Mass/volume] in Capillary blood by Glucometer 171 mg/dL 70- 140 [facility] ID Date Data Source [id number] 03/04/2021 12:55:05 PM [facility] Value Range Interpretation Code Description Data Fabiola rce(s) Supporting Document(s) Glucose [Mass/volume] in Capillary blood by Glucometer 157 mg/dL 70- 140 [facility] ID Date Data Source [id number] 03/04/2021 11:20:27 AM [facility] Value Range Interpretation Code Description Data Fabiola rce(s) Supporting Document(s) History and Physical [facility] OPZMAx0wPvRBOlSp61/EVFxdBPIwi5ZcCSqjKBb4GFarVWRoM7EjJCJ6fQ4pIAT3BWkGFwGjJfCaUQX8 [facility] [file] SSMI2jqBHALy2Jjvv5Iilg467u/qa reviewer/Z4tBIXjXJojHkK7Rix2ISArqBk+Tm30w5zg65WEZaSDZ08QqW [file] Q8QR2qPAGUZj8+WBjegPLwyEfrGLPQGwB3Mvm7TZpdGGABRd5W ID Date Data Source [id number] 03/04/2021 11:20:[address] [facility] Name Value Range Interpretation Code Description Data Fabiola rce(s) Supporting Document(s) History and Physical [facility] TUKJUx4fMkFYHgWd73/XVJdrXAEud8GcETedKZa2GJoxXLKjJ7TbFED9yR1uBSB1MIxSYpRhSoGmIES3 lbm [file] AgICAgICAgICAgICAgICAgICAgICAgICAgICAgICAgICAgICAgICAgICAgICAgICAgICAgICAgICAgIC DhYVIjBMRuPVBrWYTmBFSkLU3PHKFmXWGcRJRkWIMk ICAgICAgICAgICAgICAgICAgICAgICAgICAgICAgICAgICAgICAgICAgICAgICAgICAgICAgICAgICAg TZRoMFToCDFcZJAfYBHuVMZvSTGmKXKtTDJqQY7EHBZjIQLbFXMsPPTaOOVyEKPyGIYiCBJdWWHvHEJi ICAgICAgICAgICAgICAgICAgICAgICAgICAgICAgIC WcDBXpJFAqOSUaVKHgFFEiOBFhKMJuOZZcKPWmNMDdTOScAAYcVG3VIUXyZBPgBMHyHOGkGUOlGCOmYV AgICAgICAgICAgICAgICAgICAgICAgICAgICAgICAgICAgICAgICAgICAgICAgICAgICAgICAgICAgIC BwGGRbKNOsTRSlMIBfCXNdQHInVA2ISOMjCTVzZZZe ICAgICAgICAgICAgICAgICAgICAgICAgICAgICAgICAgICAgICAgICAgICAgICAgICAgICAgICAgICAg BSZxXCPwCNLuVRHoBOUiCOLsQAPvVVKkRZKaKKEfAU0UAFBdLXTlIFEcLLShANPfAKOpWGVhGVArALRh ICAgICAgICAgICAgICAgICAgICAgICAgICAgICAgIC FqYCCmJNJnSPTmUCOxMDGqKIEpQNAeOBNyDSZoXBOrQUDaLDDgZDVhLN4QUPHrTIHtKOBgDHMzFWFjWG AgICAgICAgICAgICAgICAgICAgICAgICAgICAgICAgICAgICAgICAgICAgICAgICAgICAgICAgICAgIC AiLQAiMQKsWDWcIHGcZUItDIGiKEPtPN0FEZPrANUb ICAgICAgICAgICAgICAgICAgICAgICAgICAgICAgICAgICAgICAgICAgICAgICAgICAgICAgICAgICAg KYIdJUFeJCVpIDYoCMNdAVGtSJCnLRRpEBKpTXXcQYHjSR4VDFTwQNBjTXUgFZIgLDLkABExEXAtVPGv ICAgICAgICAgICAgICAgICAgICAgICAgICAgICAgIC DgIOOwUMFaLLKmBWDfLJFnJQLwCIHbPQPmPHGcEPVrFGJdKIDtGRLxOGMnGF7DGBCmOXLyQMQxAOUqLB AgICAgICAgICAgICAgICAgICAgICAgICAgICAgICAgICAgICAgICAgICAgICAgICAgICAgICAgICAgIC HlNWReUXHbNWWvSWQxKHVwHDGsTHFuQOJpIN8WXN88 tPFde0D6ELMhKP2dyfe/Ym4AEMojyhBkjTAfHA4AKxJdAT6znl7HArDcSE1izy8NEAtPAqQaN9X5pFBg PLKmLUITWuOyI62cETkmAc84VEfvCQLoMcVjPTd3Nc6ANjWkG4lbFYBlUlZ6LRCrKbW6OJIlSuF8UIDp VvSvGARcUALgYKRwBKHQPPD4KBSmLkMkNbUbLIBdNT erSAYCEWMwNAAbHmDjPIymDD1Wc4UugOH5EBd+Cx9WJD5ln7QdQEf2FwHoXH7pgq8NNSqELtIyD4Mjkc O1WXU8GPGcKj5BMRPdFUVbtNI9EYHfMWOKGjQmQ9ArkN83YWVPYe2+VDgjxeIiNamOFtX5MCGjp0GqQU o2FP9EBIKjJNw0lBZoGKIKZYS1UVDibceiJYFNd9O5 AQUXJSNfsPX8NyAbHkMyQLWhJHhfSJSWJSrEDiHaG9Jgn1JtBiM7RCJnTuSbUYxuRUOgPoL8LS75sHuo TL7JEWFgRHHmDN50QVN5RULoAn7SQz1RWkJfGV0nwt0JRFlaWDWbBstUQrz8HDjgNH1RjVSnS8DkwBOw c4aBCpJhA0VGMPY7DYPnRx8BLQYqWtMoTVTmBMttWZ 0cDZLeLXVJpYqoekP9LI8CKV2ahgRqCQ1QIdBrTo6zNx5LTqRsC0VkD9RxHHThQIFCGVymBU5VKCpgVX 6cCS0Ov9CXlRRaqZ5juk2DYPVcYXGvTnnwos4UQruxO5R6hXysUJJwWDswBZHSRCubSJ5NHPHdIIY3AT E7YwLcMASZBqFiR66eLI7SU5Kha58nFfH2WCHgAmGe PPljUP91hIvzlgXliZAxyIbhXS1QCs0+DQplbmRvYmoNCnhyZWYNCjAgNTANCjAwMDAwMDAwMDAgNjU1 GsHbZi3MBXTtDONwUMRqGnClOHImVBMiXVfzVOTvKIHwZDs6EQNnXNFoON5IXeAgJSGfJNXrPdemLFDl YGTwzh4XKRFrKDYsNOU9CbVrOOYyKKIcALmaRKGrSP DpKUt8RPBtHRNfDY3XTbMqZOOcTLLyPXkzPOVyCCNoow4ZHWZbAQOwFuM6VBBoOBDmBIZpAJtuTSRrLV B4IXY1KHTuHPUsOE3SEhJcPNGhKWskLLLxXROjFTBaic3MGPEkAWSrNTYdTYCjVIMvCEAwRKxhEPMzLH EdDPr3ADLiNAUzPU7PXuRfEHIxMTO9VTQeTSXbMRZj xu0LMDNgKIPzTiD6CSHtOTEyOCImLVucSONrRMP7AwTxKWGhMRMgMH6AWhNqCZFiIwTiMVWlBMEpUBYu bt0SKCQzJIGxCYI2FTNyPDFsWBSwOLgcBZEhXIN3DIg8MGUvPPOaKE8RXySgWKNcHoWtYUNmLUZyILWl rs6BNKBhLZBsLuPnWcUoLXArLYUxWYycDWFqJLL0WM U7LFGhYKOeTL2ZIzOsMWNiWbmfUbLwZWBtDIUprk4DBJKfSNHeDXG0BAAtOVVgRIQhJMtsHGOfPWY1RH MoPCXbYUXcFG9ZWpKeSMVjSnf7VomcBEYkAQWdss4PEAQcTUVfTGigFRZfMLDrABDxDYtyVYQlQNDiWx ntSTTpRTTcBX2HZpSrWFUoFfG7RzPgRYAaLRKhkm0T RZDwHYYvYLG0CTFqVVEdSWAtEUyvFJTpLLBxBIRaCOGoOEBfCC4PZaMmQXYnQaIvFGcpCRTrPXCcdq8S BVJdHUTbGkPzQHVyGFIoKNZzFSmhHTKnYGSlOSMfWZKxXRSrOB4ISgGcICJkHqJ4QwDhQPZnNLXzsv8E VVTmKQRmBbj8GIRvPIFdZZMpQViwMMBqXGT0PeHeBB EcPLRnYJ5ZFaPlWGMtZpmtVnHqOLZtQXMxys4YPDGbRQLcUFM2XYRuNKNoBKPuSQyfWTXjJRR6LKdxMK YaJTFzTY3WSrNkSCDuHbu5QQOdWBMlWRKuen6SLHFpFBEcFTc0LbNkNXGtXZDtTJnsEJBxBHHbWMe6AT IdUNAlCA7JVyOzTEChYIFyGCYtIBMyXAKfau4WAZBq ZEU9QCW4DtLjERIgEWYbAJfcOLUgWJMqFtvqNWKuSVXlLO0LTuRiSCHgQFT8BhUtUBOhWUUogp0TYRTz GBU2XyVrXTJaPATbNQYhKYlpLYLdNUZmPXQoQJVkXPJfAU6FOmNdJXAoKNL9VDBgIPNqFUEgox0AZLNp FRT4MuxwCIWrLOTvKPEcMEj2mjBggOHdRAk6UA0YZ3 OcbjBpZSHKBz1Dh607MIM0DVOvNa7RV3txLx0lPTGlUMRNBi5PCQi8VMPaYRXdE4E3IKMfVYA3XXXcOE kkD9XkRHUcUoV7NWl+HRq0UUDvMxSxWwEgTdCdHAPpWAYiLkG5RfP5AbNsHwJbNT4tTQBNGi0+DQpzdG OnuKcyPUXTXxJdEBX3NOuvHGZASk5C ID Date Data Source [id number] 03/04/2021 08:49:[address] [facility] Name Value Range Interpretation Code Description Data Fabiola rce(s) Supporting Document(s) Glucose [Mass/volume] in Capillary blood by Glucometer 102 mg/dL 70- 140 [facility] ID Date Data Source [id number] 03/03/2021 09:02:[address] [facility] Name Value Range Interpretation Code Description Data Fabiola rce(s) Supporting Document(s) Glucose [Mass/volume] in Capillary blood by Glucometer 104 mg/dL 70- 140 [facility] ID Date Data Source [id number] 03/03/2021 05:39:[address] [facility] Name Value Range Interpretation Code Description Data Fabiola rce(s) Supporting Document(s) Glucose [Mass/volume] in Capillary blood by Glucometer 101 mg/dL 70- 140 [facility] ID Date Data Source [id number] 03/03/2021 12:44:[address] [facility] Name Value Range Interpretation Code Description Data Fabiola rce(s) Supporting Document(s) Glucose [Mass/volume] in Capillary blood by Glucometer 261 mg/dL 70- 140 [facility] ID Date Data Source [id number] 03/03/2021 08:51:59 AM EDT [facility] Value Range Interpretation Code Description Data Fabiola rce(s) Supporting Document(s) Glucose [Mass/volume] in Capillary blood by Glucometer 211 mg/dL 70- 140 [facility] ID Date Data Source [id number] 03/02/2021 08:12:49 PM EDT [facility] Value Range Interpretation Code Description Data Fabiola rce(s) Supporting Document(s) Glucose [Mass/volume] in Capillary blood by Glucometer 145 mg/dL 70- 140 [facility] ID Date Data Source [id number] 03/02/2021 01:06:00 PM EDT [facility] Name Value Range Interpretation Code Description Data Fabiola rce(s) Supporting Document(s) SARS coronavirus 2 RNA [Presence] in Res piratory specimen by WILEY with probe detection NEGATIVE [facility] This lab was ordered by [facility] a nd reported by [facility]. ID Date Data Source [id number] 02/28/2021 08:51:00 PM EDT [facility] [address] [place] [address] RESPIRATORY CARE REPORT ==== ---------NAME------- NUMBER SEX AGE ADMIT DISC. XRAY# F/C TYPEPHILLIP ALEGRIA [id number] M 50 02/27/21 02/28/21 [id number] P E/R DATE OF : 1970 M/R# [id number] #: [id number] TR-08 LOCATION: EMERGENCY DEPT EKG [id number] COMP LETE:02/28/21 00:22 VMT [id number] PHYSICIAN: JOSE ARENAS Name Value Range Interpretation Code Description Data Fabiola rce(s) Supporting Document(s) ID Date Data Source [id number] 02/27/2021 10:13:00 PM EDT [facility] 1 OrderSheet [facility] Emergency Department [address] [place] [address] Phone #: [phone]- [phone] 02/27/2021 22:09 Patient: JOSE L LAM Sex: M : 1970 Age: 50yWEIGHT:77.1 kg (S) HEIGHT:66 inches (S) BMI:27.4ALLERGIES: No Known Drug AllergyCHIEF COMPLAINT: glucoseDIAGNOSIS: Diabetes mellitusLAB ORDERSOrder Description Priority Entered Acknowledged InitialedDIAGNOSTIC STUDY ORDERSOrder Description Priority Entered Acknowledged InitialedMEDICATION/IV/DRIP/FLUID ORDERSOrder Description Priority Entered Acknowledged Initialed- (Metformin 500 22:40 02/27/2021 Ack'd: 23:00 Leena Ann R.NAshamg PO once) Trae Garcia Cancelled: Other 23:17 Leena Ann M.D.; R.N.GENERAL ORDERSOrder Description Priority Entered Acknowledged InitialedEKG 22:49 02/27/2021 22:57 Jose Ann Riccardo Laura R.N. M.D.;[Electronic ally signed by Katy Ortez R.N. (00:22 02/28/2021)][Electronically signed by Trae Garcia M.D. (00:32 02/28/2021)][Electronically locked by Katy Ortez R.N. (00:22 02/28/2021)] Name Value Range Interpretation Code Description Data Fabiola e(s) Supporting Document(s) ID Date Data Source [id number] 02/27/2021 10:13:00 PM EDT [facility] 1 Medication Reconciliation Report [facility] Emergency Department [address] [place] [address] Phone #: ext- [phone] 02/27/2021 22:09 Patient: JOSE L LAM Sex: [...] Dispense 60 tablet. Refills: 2.Substitution permitted.Pharmacy - [facility] [id number] [place], [place] [phone]. . -- Trae Garcia M.D. Name Value Range Interpretation Code Description Data Fabiola rce(s) Supporting Document(s) ID Date Data Source [id number] 02/27/2021 10:13:00 PM EDT [facility] 1 Medication Administration Record [facility] Emergency Department [address] [place] [address] Phone #: ext- [phone] 02/27/2021 22:09 Patient: JOSE L LAM Sex: M : 1970 Age: 50yWeight: 77.1 kgHeight/Length: 66 inBMI: 27.4ALLERGIES: No Known Drug AllergyDate/Time Medication Administered Medication Ordered Name Value Range Interpretation Code Description Data Fabiola rce(s) Supporting Document(s) ID Date Data Source [id number] 02/27/2021 10:13:00 PM EDT [facility] 1 General Instructions [facility] Emergency Department [address] [place] [address] Phone #: ext [phone] 02/27/2021 22:09 Patient: JOSE L LAM Sex: [...] Dispense 60 tablet. Refills: 2.Substitution permitted.Pharmacy - [facility] [id number] [facility] ; [place], [place] [phone]. .Follow-up:Return to the emergency department as needed. [...] of care. ADDITIONAL INFORMATION 2 General Instructions [facility] Emergency Department [address] [place] [address] Phone #: ext- [phone] 02/27/2021 22:09 Patient: JOSE L LAM Sex: [...] or urgent care center. 3 General Instructions [facility] Emergency Department [address] [place] [address] Phone #: ext- [phone] 02/27/2021 22:09 Patient: JOSE L LAM Sex: M : 1970 Age: 50yCall 911Call 911 if you have any of the following: Confusion Dizziness, lightheadedness, or loss of consciousness Shortness of breath Chest pain Weakness of an arm, leg, or one side of the face Sudden trouble with speech or vision SEC Watch. [address] [place] [address], [place] [address]. All rights reserved. This information is not [...] include: Heart disease Stroke 4 General Instructions [facility] Emergency Department [address] [place] [address] Phone #: ext- [phone] 02/27/2021 22:09 Patient: [...] taking your diabetes medicine 5 General Instructions [facility] Emergency Department [address] [place] [address] Phone #: ext- [phone] 02/27/2021 22:09 Patient: [...] tablets. You can buy these at most drugstores. 4 ounces (1/2 cup) of regular (not [...] (70 mg/dL or above), 6 General Instructions [facility] Emergency Department [address] [place] [address] Phone #: ext- [phone] 02/27/2021 22:09 Patient: JOSE L LAM Sex: [...] website at www.diabetes.org. Or you can call [phone].When to seek medical adviceCall your healthcare provider [...] or restless Eyesight changes 7 General Instructions [facility] Emergency Department [address] [place] [address] Phone #: ext- [phone] 02/27/2021 22:09 Patient: JOSE L LAM Sex: M : 1970 Age: 50y Drowsiness WeaknessCall 911Call 911 if any of these occur: Chest pain or shortness of breath Dizziness or fainting Weakness of an arm or leg or one side of the face Trouble speaking or seeing Confusion or loss of consciousness SEC Watch. [address] [place] [address]. All rights reserved. This information is not [...] loss program. If youhaven't talked with a rio sabillonian yet, ask your provider for a referral. [...] o Milk or yogurt 8 General Instructions [facility] Emergency Department [address] [place] [address] Phone #: ext- [phone] 02/27/2021 22:09 Patient: [...] Academy of Nutrition and Dietetics www.eatright.org o [place] [employer] [phone] www.diabetes.org [phone] [employer]. [address] [place] [address]. All rights reserved. This information is not intended as asubstitute for professional medical care. Always follow your healthcare professional's instructions. You have been given the following additional information: Diabetes with High Blood Sugar Diabetes- Overview Diet: Diabetes 9 General Instructions [facility] Emergency Department [address] [place] [address] Phone #: ext- [phone] 02/27/2021 22:09 Patient: JOSE L LAM Sex: M : 1970 Age: 50y(Electronically signed by Trae Garcia M.D. 02/28/2021 00:32) Name Value Range Interpretation Code Description Data Fabiola rce(s) Supporting Document(s) ID Date Data Source [id number] 02/27/2021 10:13:00 PM EDT [facility] 1 Clinical Report - Nurses [facility] Emergency Department [address] [place] [address] Phone #: ext- [phone] 02/27/2021 22:09 Patient: JOSE L LAM Sex: M : 1970 Age: 50yTRIAGEArrived by EMS. Historian: patient. ( per EMS called for high BG - BG 252 per ems , also c/o left toepain BG now 259).Acuity: LEVEL 3.Chief Complaint: (high BG).Treatment DERMATOLOGICAL SURGEON:None. --22:16 02/27/21 Katy Ortez R.N.22:11 02/27/21. BP: 164/111. MAP: 128. HR: 132. RR: 15. O2 saturation: 100%. Temp: 98.7 F. Pain levelnow: 8/10. --22:16 02/27/21 Katy Ortez R.N.Weight: 77.1 kg [...] killing yourself?". 2 Clinical Report - Nurses [facility] Emergency Department [address] [place] [address], [place] [address] Phone #: ext- [phone] 02/27/2021 22:09 Patient: JOSE L LAM Sex: M : 1970 Age: 50y ABUSE [...] is warm and dry. Normal skin turgor. --22:17 02/27/21 Katy Ortez R.N.NURSING PROGRESS NOTESThe plan of care for this patient has been created. Monitoring of patient in place. Finger stick glucose:259 mg/dL. Patient gowned. Head of bed elevated. Reassurance given. Two patient identifierschecked. Call light placed in reach. Side rails up x 1. Bed placed in lowest position. Brakes of bed on.Patient ready for evaluation- ED physician notified. --22:17 02/27/21 Katy Ortez R.N. EKG time: (late entry [...] pt gets prescription tomorrow. Pt verbalizes understanding.). --:02/27/21 Leena Ann R.N.DISPOSITION / DISCHARGE Condition at departure: stable. No learning barriers present. Discharge instructions provided and reviewed with the patient. Reviewed medication(s) side effects, precautions, dosing and course information. Prescription(s) given to the patient and sent electronically to pharmacy. Medication(s) for home use given to the patient per protocol. Treatments reviewed. Reviewed referrals. Patient verbalized understanding. Written instructions provided in Qatari. The patient was discharged by the physician. He was discharged home and accompanied by cab. He left ambulatory and via private vehicle. Driving 3 Clinical Report - Nurses [facility] Emergency Department [address] [place] [address] Phone #: ext- [phone] 02/27/2021 22:09 Patient: JOSE L LAM Sex: M : 1970 Age: 50y ([facility]). --:02/27/21 Leena Ann R.N. 23:20 02/27/21. BP: deferred. HR: deferred. RR: deferred. O2 saturation: deferred. Temp: deferred. Pain level now deferred. --:02/27/21 Leena Ann R.N.Locked/Released at 02/28/2021 00:22 by Katy Ortez R.N. Name Value Range Interpretation Code Description Data Fabiola rce(s) Supporting Document(s) ID Date Data Source [id number] 02/27/2021 10:13:00 PM EDT [facility] 1 Clinical Report - Physicians/Mid Levels [facility] Emergency Department [address] [place] [address] Phone #: ext- [phone] 02/27/2021 22:09 Patient: JOSE L LAM Sex: [...] associated symptoms. (pt is known IDDM, from [place], living in local motel here in [place] until his home in [place] gets cleaned up, complains of his glucose been on/off high in last 2-3 days whenever he eats; pt was in [place] and called 911 to bring him here, [...] Allergy. 2 Clinical Report - Physicians/Mid Levels [facility] Emergency Department [address] [place] [address] Phone #: ext- [phone] 02/27/2021 22:09 Patient: JOSE L LAM Sex: M : 1970 Ag e: 50ySOCIAL HISTORYLight tobacco smoker. Is a recovering addict. No alcohol use.ADDITIONAL NOTESThe nursing notes have been reviewed with agreement regarding the chief complaint, HPI, ROS, PMH andpatient medications and allergies.PHYSICAL EXAMVital Signs: 02/27/2021 22:11 BP: 164/111. MAP: 128. HR: 132. RR: 15. O2 saturation: 100%. Temp: 98.7F. Pain level now: 8/10. Have been reviewed. Oxygen saturation normal.Appearance: Alert. [...] waves. EKGunchanged when compared with prior EKG. (8-6-21). The study has been interpreted contemporaneouslyby me. The EKG appears to be a good tracing. Interpretation time: 22:23 02/27/2021.Bedside Tests: Glucose - 259 (performed at bedside).PROGRESS AND PROCEDURESCourse of Care: 22:46 02/27/21. pt would like to get some Metformin tonight and I will prescribe some atlocal pharmacy; pt will f/u w PHOTOGRAPHER STILL in next week for DB medicine adjustment; [...] consistent 3 Clinical Report - Physicians/Mid Levels [facility] Emergency Department [address] [place] [address] Phone #: ext- [phone] 02/27/2021 22:09 Patient: [...] tablet. Refills: 2. Substitution permitted. Pharmacy - [facility] [id number] [facility] ; [place], [place] [phone]. . Follow-up: Return to the emergency department [...] care. 4 Clinical Report - Physicians/Mid Levels [facility] Emergency Department [address] [place] [address] Phone #: ext- [phone] 02/27/2021 22:09 Patient: JOSE L LAM Sex: M : 1970 Age: 50y(Electronically signed by Trae Garcia M.D. 02/28/2021 00:32) Name Value Range Interpretation Code Description Data Fabiola rce(s) Supporting Document(s) ID Date Data Source [id number] 02/03/2021 01:19:00 [place] [address] RESPIRATORY CARE REPORT ==== ---------NAME------- NUMBER SEX AGE ADMIT DISC. XRAY# F/C TYPEPHILLIP ALEGRIA [id number] M 50 02/01/21 02/02/21 [id number] P E/R DATE OF : 1970 M/R# [id number] #: [id number] TR-03 LOCATION: [facility] [address] COMPLETE:02/02/21 0 2:55 [facility] [address] PHYSICIAN: BELIA Clinton Name Value Range Interpretation Code Description Data Fabiola rce(s) Supporting Document(s) ID Date Data Source [id number] 02/01/2021 11:44:00 PM EDT [facility] 1 OrderSheet [facility] Emergency Department [address] [place] [address] Phone #: ext- [phone] 02/01/2021 23:43 Patient: JOSE L LAM Sex: M : 1970 Age: 50yWEIGHT:72.5 kg (S)ALLERGIES: NoneCHIEF COMPLAINT: hallucinations, paranoidDIAGNOSIS: Drug abuse, Psychotic disorderLAB ORDERSOrder Description Priority Entered Acknowledged InitialedCB w Diff STAT 23:58 02/01/2021 Ack'd: 00:07 00:41 02/02/2021 Cheo Landis ; 02/02/2021 Bhavya Hogan R.N.CMP STAT 23:58 02/01/2021 Ack'd: 00:07 00:41 02/02/2021 Cheo Landis ; 02/02/2021 Bhavya Hogan R.N.TSH STAT 23:58 02/01/2021 Ack'd: 00:07 00:41 02/02/2021 Cheo Landis ; 02/02/2021 Bhavya Hogan R.N.Acetaminophen STAT 23:58 02/01/2021 Ack'd: 00:07 00:41 02/02/2021evCheo Pressley ; 02/02/2021 Bhavya Hogan R.N.Salicylate Level STAT 23:58 02/01/2021 Ack'd: 00:07 00:41 02/02/2021 Cheo Landis ; 02/02/2021 Bhavya Hogan R.N.ETOH STAT 23:58 02/01/2021 Ack'd: 00:07 00:41 02/02/2021 Cheo Landis ; 02/02/2021 Bhavya Hogan RQuang.Drug Screen-Urine STAT 23:58 02/01/2021 Ack'd: 00:07 00:41 02/02/2021 Cheo Landis ; 02/02/2021 Bhavya Hogan RLisaUrinalysis (Clean STAT 00:08 02/02/2021 00:08 Bhavya Snow) Bhavya Hogan R.N. R.N.; Verbal order per; Cheo Landis 2 OrderSheet [facility] Emergency Department [address] [place] [address] Phone #: ext- [phone] 02/01/2021 23:43 Patient: JOSE L LAM Sex: M : 1970 Age: 50yCOVID-19 CAH (Not STAT 00:12 02/02/2021 00:41 StevenSymptomatic as Cheo Landis ; Samira SEGOVIADefined by [facility])(02/02/2021) (NotFirst Test) (NotHospitalized) (Not) (NotResident inCongregate CareSetting) (NotEmployed inHealthcare Setting)DIAGNOSTIC STUDY ORDERSOrder Description Priority Entered Acknowledged InitialedChest Portable 1 STAT 23:58 02/01/2021 Ack'd: 00:07 00:07 02/02/2021View Cheo Landis ; 0 02/02/2021 Bhavya Hogan(Oxygen?(No)) Remi Hogan R.N. RLisa Reason for Study: CoughMEDICATION/IV/DRIP/FLUID ORDERSOrder Description Priority Entered Acknowledged InitialedHaldol IM 5 mg 02:12 02/02/2021 02:18 Roberto(NOW x1) Cheo Landis ; Samira RNGENERAL ORDERSOrder Description Priority Entered Acknowledged InitialedEKG 23:58 02/01/2021 Ack'd: 00:07 00:41 02/02/2021 Cheo Landis ; 02/02/2021 Bhvaya Hogan R.N.[Electronically signed by Bhavya Matthews R.N. (04:35 02/02/2021)][Electronically signed by Cheo Landis (07:10 02/03/2021)][Elec tronically locked by Bhavya Matthews R.N. (04:35 02/02/2021)] Name Value Range Interpretation Code Description Data Fabiola rce(s) Supporting Document(s) ID Date Data Source [id number] 02/01/2021 11:44:00 PM EDT [facility] 1 Medication Reconciliation Report [facility] Emergency Department [address] [place] [address] Phone #: ext- [phone] 02/01/2021 23:43 Patient: [...] rce(s) Supporting Document(s) ID Date Data Source [id number] 02/01/2021 11:44:00 PM EDT [facility] 1 Medication Administration Record [facility] Emergency Department [address] [place] [address] Phone #: ext- [phone] 02/01/2021 23:43 Patient: JOSE L LAM Sex: M : 1970 Age: 50yWeight: 72.5 kgHeight/Length: 67 inBMI: 25.1ALLERGIES: None Date/Time Medication Administered Medication OrderedGiven HALDOL [IM] (HALOPERIDOL Haldol IM 5 mg (NOW x1)02:18 02/02/2021 LACTATE)Roberto Hogan RN Dose: 5 mg IM Name Value Range Interpretation Code Description Data Fabiola rce(s) Supporting Document(s) ID Date Data Source [id number] 02/01/2021 11:44:00 PM EDT [facility] 1 General Instructions [facility] Emergency Department [address] [place] [address] Phone #: [phone] 02/01/2021 23:43 Patient: JOSE L LAM Sex: [...] job or your family Arrest, conviction, and [facility] sentence for possession of an illegal substance or for driving under the influenceHealth problems Strokes, heart attacks, and kidney failure 2 General Instructions [facility] Emergency Department [address] [place] [address] Phone #: [phone]- [phone] 02/01/2021 23:43 Patient: [...] of the resources below for help: National [place] on Alcoholism and Drug Dependence, www.ncadd.org, Narcotics Anonymous, www.na.org, [employer]stance [employer] [facility], www.[employer], . This center can refer you to a treatment program.Call [phone] if any of the following occur: Seizure Hard time breathing or slow, irregular breathing Chest pain 3 General Instructions [facility] Emergency Department [address] [place] [address] Phone #: [phone]- [phone] 02/01/2021 23:43 Patient: [...] swelling, or tenderness at an injection site [id number] [employer]. [address] [place] [address]. All rights reserved. This information is not intended as asubstitute for professional medical care. Always follow your healthcare professional's instructions. You have been given the following additional information: Drug Abuse(Electronically signed by Cheo Landis 02/03/2021 07:10) Name Value Range Interpretation Code Description Data Fabiola rce(s) Supporting Document(s) ID Date Data Source [id number] 02/01/2021 11:44:00 PM EDT [facility] 1 Clinical Report - Nurses [facility] Emergency Department [address] [place] [address] Phone #: [phone]- [phone] 02/01/2021 23:43 Patient: JOSE L LAM Sex: M : 1970 Age: [id number]: EMS.Triage time: 23:41 02/01/2021.Chief Complaint: HALLUCINATIONS.Onset: just prior to arrival. ( pt called 911 stating that there were people in his hotel room. (Ptuncooperative with EMS, reportedly.) pt is a poor historian and does not know his med ications.).EMS Treatment DERMATOLOGICAL SURGEON:See EMS report. --23:47 02/01/21 Bhavya Hogan R.N.Acuity: [...] Bhavya Khalil 2 Clinical Report - Nurses [facility] Emergency Department [address] [place] [address] Phone #: ext- [phone] 02/01/2021 23:43 Patient: [...] HX: No significant family medical history. --00:05 02/02/21 Cheo Landis.NURSING PROGRESS NOTESFinger stick glucose: 276; [...] 100%. --02:53 02/02/21 Bhavya Hogan R.N. ( 0115 Chart faxed to [facility] Shrinking Machine Operator.). --02:54 02/02/21 Bhavya Hogan R.N. 02:00 02/02/21. BP: 148/101. MAP: 116. HR: 102. RR: 20. O2 saturation: 100%. Pain level now: 0/10. --02:56 02/02/21 Bhavya Hogan R.N. ( 219 Call placed to [facility], awaiting call back.). --02:59 02/02/21 Bhavya Hogan R.N. ( 224 Pt out of bed to bathroom, decided that he did not want staff in there with him. Started to get agitated. States that he is seeing people in his room behind his bed. Wants to have security with him to 3 Clinical Report - Nurses [facility] Emergency Department [address] [place] [address] Phone #: ext- [phone] 02/01/2021 23:43 Patient: JOSE L LAM Sex: M : 1970 Age: 50y keep him safe.). --03:02 02/02/21 Bhavya Hogan R.N. ( 249 Pt requests to speak to the cell room supervisor. KM at bedside.). --03:03 02/02/21 Bhavya Hogan R.N. 03:08 02/02/21. ( Pt insisting on leaving AMA. He activated his lifeline asking for Police to respond to the ED. MD notified. Pt voices that he is not suicidal and not homicidal.). --03:29 02/02/21 Bhavya Hogan R.N.DISPOSITION / DISCHARGE Departure time: 03:47 02/02/2021. Condition at departure: stable. Discharge instructions provided and reviewed with the patient. Patient verbalized understanding. Written instructions provided in Qatari. The patient was discharged by the physician. [...] rce(s) Supporting Document(s) ID Date Data Source [id number] 02/01/2021 11:44:00 PM EDT [facility] 1 Clinical Report - Physicians/Mid Levels [facility] Emergency Department [address] [place] [address] Phone #: ext- [phone] 02/01/2021 23:43 Patient: JOSE L LAM Sex: [...] is present. Additional history - Staying at [facility] past week. Patient seeing people in his [...] reviewed. 2 Clinical Report - Physicians/Mid Levels [facility] Emergency Department [address] [place] [address] Phone #: ext- [phone] 02/01/2021 23:43 Patient: [...] PROCEDURAL CONTROL VALID KIT LOT # _[id number] 02/02/21.5.MLE. KIT EXP DATE _05.24.21 02/02/215.MLE. NORMAL RANGE IS NOT DETECTEDThe COVID-19 assay [...] 14.8) 3 Clinical Report - Physicians/Mid Levels [facility] Emergency Department [address] [place] [address] Phone #: ext- [phone] 02/01/2021 23:43 [id number] Sex: M : 1970 Age: 50y PLATELETS [...] Male GFR Interprentation 20-49 yrs >60 mL/min [id number] yrs >56 mL/min Normal 60-69 yrs >49 mL/min Normal 70-79yrs>42 mL/min Normal 80 and above >35 mL/min Normal Female GFRInterpretation 20-39 yrs >60 mL/min Normal 40-49 yrs >58 mL/minNormal 50-59 yrs >51 mL/min Normal 60-69 yrs >45 mL/min Suaxjv19-38 yrs >39 mL/min Normal 80 and above >32 mL/min NormalTSH: (YARED: 02/02/2021 00:25) ( MsgRcvd 02/02/2021 01:20) Final results Test Result Flag Units (Reference) TSH 0.13 L uIU/mL (0.47 - 5.01)Acetaminophen Level: (YARED: 02/02/2021 00:25) ( MsgRcvd 02/02/2021 01:20) Final results Test Result Flag Units (Reference) 4 Clinical Report - Physicians/Mid Levels [facility] Emergency Department [address] [place] [address] Phone #: ext- [phone] 02/01/2021 23:43 Patient: JOSE L LAM [facility]#: [id number] Sex: M : 1970 Age: 50y ACETAMINOPHEN <5.0 UG/ML (0.0 - 30.0) Salicylate Level: (YARED: 02/02/2021 00:25) ( [facility] 02/02/[facility]21 01:20) Final results Test Result Flag Units (Reference) SALICYLATE <0.4 L mg/dL (2.0 - 20.0) ETOH: (YARED: 02/02/2021 00:25) ( [facility] 02/02/2021 01:20) Final results Test Result Flag Units (Reference) ALCOHOL <10.0 MG/DL ALCOHOL % 0.00 % (0.00 - 0.01) *FOR MEDICAL PURPOSES ONLY* Drug Screen-Urine: (YARED: 02/02/2021 00:25) ( [facility] 02/02/2021 01:04) Final results Test Result Flag [...] wants to get his haldol injection. 04:04 02/02/21. Patient cooperative and oriented x3. bizarre affect, but denies any suicidal or homicidal ideations. Disposition: Discharged. Condition: stable. 5 Clinical Report - Physicians/Mid Levels [facility] Emergency Department [address] [place] [address] Phone #: ext- [phone] 02/01/2021 23:43 Patient: [...] rce(s) Supporting Document(s) ID Date Data Source [id number] 02/02/2021 10:22:00 [place] [address] PHONE: [phone] FAX: [phone] Name .................. : PHILLIP ALEGRIA Acct Number.................. : [id number] ROOM. ................. : TR-03 MR Number ................... : [id number] Stay type ............. : E/R Discharge Date......... ... : 02/02/21 Admit Date ......... : 02/01/21 Admit Phys .................... : BELIA Clinton Date of ....... : 1970 Family Phys ................... : NON STAFF Phone .................. : [phone] Age ................................ : 50 Film# .................. .:[id number] Sex ................................. : M Unsigned transcriptions are preliminary reports and do not represent a medical or legal document CHEST PORTABLE [id number] COMPLETE:02/02/21 02:16 MWB [id number] Reas on(s): Cough PORTABLE CHEST SINGLE VIEW [...] By Christine Lopez MD , 02/02/21 10:22, CURTIS Transcribe Initials: MILY , Transcribe Date: 02/02/21 09:25, Dictation Date: Copy for: [address] [place] [address] REC DISC HARGED Page 1 of 1 Name Value Range Interpretation Code Description Data Fabiola rce(s) Supporting Document(s) ID Date Data Source [id number] 02/02/2021 12:55:00 AM EDT [facility] NOT DETECTEDNOT DETECTED{ PROC EDURAL CONTROL VALID KIT LOT # _[id number] 02/02/21.5.MLE. KIT EXP DATE _05.24.21 02/02/21.MLE. NORMAL RANGE IS NOT DETECTEDThe COVID-19 assay [...] Name Value Range Interpretation Code Description Data [facility](s) Supporting Document(s) ID Date Data Source [id number] 02/02/2021 01:23:00 AM EDT [facility] Name Value Range Interpretation Code Description Data [facility](s) Supporting Document(s) [facility]IS [facility] UR[facility]ALYSIS SOURCE R [facility] COLOR yellow NORMAL: Yellow [facility] CLARITY clear NORMAL: Clear [facility] Specific gravity of Urine by Test strip 1.025 1.001 - 1.030 [facility] pH 5 5 - [address] [facility] Glucose [Mass/volume] in Urine by Test strip 1000 NORMAL: Negat malu [facility] Bilirubin.total [Presence] in Urine by Test strip NEG NORMAL: Negative [facility] Ketones [Presence] in Urine by Test strip 150 NORMAL: Negative [facility] Protein [Mass/volume] in Urine by Test strip 15 NORMAL: Negat malu [facility] Nitrite [Presence] in Urine by Test strip NEG NORMAL: Negative [facility] BLOOD NEG NORMAL: Negative [facility] LEUK EST NEG NORMAL: Negative [facility] Urobilinogen [Mass/volume] in Urine by Test strip NOR less danya n 1.0 mg/dL [facility] MICROSCOPIC See Below [facility] WBC 0 - 1 NORMAL: NONE SEEN [facility] Erythrocytes [#/volume] in Urine by Test strip 0 - 1 NORMAL: NON E SEEN [facility] EPITHELIAL FEW NORMAL: NONE SEEN [facility] Bacteria [Presence] in Urine sediment by Light microscopy Tr anastasiya NORMAL: NONE SEEN [facility] Mucus [Presence] in Urine sediment by Light microscopy 1+ NOR MAL: NONE SEEN [facility] ID Date Data Source [id number] 02/02/2021 01:20:00 AM EDT [facility] Name Value Range Interpretation Code Description Data Fabiola rce(s) Supporting Document(s) Ethanol [Moles/volume] in Blood <10.0 MG/DL [facility] ALCOHOL % 0.00 % 0.00 - 0.01 [facility] *FOR MEDICAL PURPOSES ONLY * ID Date Data Source [id number] 02/02/2021 01:20:00 AM EDT [facility] Name Value Range Interpretation Code Description Data Fabiola rce(s) Supporting Document(s) SALICYLATE <0.4 mg/dL 2.0 - 20.0 L [facility] ID Date Data Source [id number] 02/02/2021 01:20:00 AM T [facility] Value Range Interpretation Code Description Data Fabiola rce(s) Supporting Document(s) Acetaminophen [Presence] in Urine <5.0 UG/ML 0.0 - 30.0 [facility] ID Date Data Source [id number] 02/02/2021 01:19:00 AM EDT [facility] Name Value Range Interpretation Code Description Data Fabiola rce(s) Supporting Document(s) Thyrotropin [Units/volume] in Serum or Plasma by Detec tion limit <= 0.05 mIU/L 0.13 uIU/mL 0.47 - 5.01 L [facility] ID Date Data Source [id number] 02/02/2021 01:19:00 AM EDT [facility] Name Value Range Interpretation Code Description Data Fabiola rce(s) Supporting Document(s) COMPREHENSIVE METABOLIC PANEL [facility] COMPREHENSIVE METABOLIC PANEL Sodium [Moles/volume] in Serum or Plasma 135 mEq/L 134 - 153 [facility] Potassium [Moles/volume] in Serum or Plasma 4.3 mEq/L 3.6 - 5.0 [facility] Chloride [Moles/volume] in Serum or Plasma 100 mEq/L 98 - 107 [facility] Carbon dioxide, total [Moles/volume] in Serum or Plasma 22 MEQ/L 22 - 30 [facility] Glucose [Mass/volume] in Serum or Plasma 295 MG/DL 70 - 99 H [facility] BUN 26 MG/DL 7 - 21 H [facility] al Creatinine [Mass/volume] in Serum or Plasma 0.9 MG/DL 0.7 - 1.5 [facility] BUN/CREAT 29 8 - 27 H [facility] Protein [Mass/volume] in Serum or Plasma 7.6 G/DL 6.3 - 8.2 [facility] Albumin [Mass/volume] in Serum or Plasma 4.5 G/DL 3.9 - 5.0 [facility] Globulin [Mass/volume] in Serum by calculation 3.1 GM/DL 2.4 - 3.2 [facility] A/G RATIO 1.5 0.8 - 2.0 [facility] Calcium [Mass/volume] in Serum or Plasma 9.4 MG/DL 8.4 - 10.2 [facility] Bilirubin.total [Mass/volume] in Serum or Plasma <0.7 MG/DL 0.2 - 1.3 [facility] Alkaline phosphatase [Enzymatic activity/volume] in Serum or Plasma 69 U/L 38 - 126 [facility] Aspartate aminotransferase [Enzymatic activity/volume] in Serum or Plasma 19 U/L 5 - 40 [facility] Alanine aminotransferase [Enzymatic activity/volume] in Seru m or Plasma 14 U/L 7 - 56 [facility] Anion gap 3 in Serum or Plasma 13.0 mmol/L 8.0 - 16.0 [facility] AGE 50 yrs [facility] NON-AA GFR >60 mL/min [facility] AFR AMER GFR >60 mL/min [facility] Male GFR In terprentation 20-49 [...] >32 mL/min Normal ID Date Data Source [id number] 02/02/2021 01:04:00 AM EDT [facility] Name Value Range Interpretation Code Description Data Fabiola rce(s) Supporting Document(s) DRUG SCREEN URINE [facility] URINE DRUG SCREEN Amphetamine [Presence] in Urine by Screen method PRESUMP POS CHANG L: NEGATIVE [facility] BARBITURATES NEGATIVE NORMAL: NEGATIVE [facility] BENZO PRESUMP POS NORMAL: NEGATIVE [facility] COCAINE NEGATIVE NORMAL: NEGATIVE [facility] Tetrahydrocannabinol [Presence] in Urine NEGATIVE NORMAL: NEGATIVE [facility] OPIATES NEGATIVE NORMAL: NEGATIVE [facility] Phencyclidine [Presence] in Urine by Screen method NEGATIVE NOR MAL: NEGATIVE [facility] \\BLDo\\URINE DRUG SCR EEN INTERPRETATION\\BLDx\\ THE CUTOFFF LEVELS FOR DETECTION ARE FOLLOWS: AMPHETAMINES 1000 ng/ml BARBITUARATES 200 ng/ml BENZODIAZEPINES 100 ng/ml THC 50 ng/ml PHENCYCLIDINE 25 ng/ml OPIATES 300 ng/ml COCAINE 300 ng/ml ALL POSITIVES ARE CONSIDERED PRESUMPTIVE POSITIVE CONFIRMATION WILL BE PERFORMED AT PHYSICIAN REQUEST. ID Date Data Source [id number] 02/02/2021 12:41:00 AM EDT [facility] Name Value Range Interpretation Code Description Data Fabiola rce(s) Supporting Document(s) CBC W/AUTOMATED DIFF [facility] COMPLETE BLOOD COUNT Leukocytes [#/volume] in Blood by Automated count 7.4 10^3/uL 4.2 - 1 1.0 [facility] Erythrocytes [#/volume] in Blood by Automated count 4.47 10^6/uL 4. 50 - 6.30 L [facility] Hemoglobin [Mass/volume] in Blood 12.9 g/dL 14.0 - 16.0 L [facility] Hematocrit [Volume Fraction] of Blood by Automated count 39.2 % 4 1.0 - 51.0 L [facility] Erythrocyte mean corpuscular volume [Entitic volume] by Auto mated count 87.7 fL 80.0 - 94.0 [facility] Erythrocyte mean corpuscular hemoglobin [Entitic mass] by Automated count 28.9 pg 27.0 - 34.0 [facility] Erythrocyte mean corpuscular hemoglobin concentration [Mass/volume] by Automated count 32.9 g/dL 31.0 - 36.0 [facility] Erythrocyte distribution width [Ratio] by Automated count 14.3 % 11.5 - 14.8 [facility] Platelets [#/volume] in Blood by Automated count 179 10^3/uL 150 - 45 0 [facility] Platelet mean volume [Entitic volume] in Blood by Automated count 9.1 fL 7.4 - 10.4 [facility] Neutrophils/100 leukocytes in Blood by Automated count 83.4 % 37. 0 - 80.0 H [facility] Lymphocytes/100 leukocytes in Blood by Manual count 10.1 % 25.0 - 40.0 L [facility] Monocytes/100 leukocytes in Blood by Automated count 5.7 % 3.0 - 8.0 [facility] Eosinophils/100 leukocytes in Blood by Automated count 0.1 % 0.0 - 7.0 [facility] Basophils/100 leukocytes in Blood by Automated count 0.4 % 0.0 - 2.0 [facility] %IG 0.3 % 0.0 - 0.[address] [facility] %NRBC 0.0 % 0.0 - 0.0 [facility] al Neutrophils [#/volume] in Blood by Automated count 6.14 10^3/uL 2.00 - 6.90 [facility] Lymphocytes [#/volume] in Blood by Automated count 0.74 10^3/uL 0.60 - 3.40 [facility] Monocytes [#/volume] in Blood by Automated count 0.42 10^3/uL 0.00 - 0.90 [facility] Eosinophils [#/volume] in Blood by Automated count 0.01 10^3/uL 0.00 - 0.70 [facility] Basophils [#/volume] in Blood by Automated count 0.03 10^3/uL 0.00 - 0.20 [facility] #IG 0.02 10^3/uL 0.00 - 0.10 [facility] #NRBC 0.00 10^3/uL 0.00 - 0.00 [facility] MANUAL DIFF NOT INDICATED [facility] RBC MORPH NOT INDICATED [facility] ID Date Data Source [id number] 01/23/2021 09:57:00 AM EDT [facility]) Name Value Range Interpretation Code Description Data Fabiola rce(s) Supporting Document(s) PSA total 2.6 NG/mL 0.0-4.0 PSA Total [facility]) PSA comment . PSA Comment [facility] ([facility]) ID Date Data Source [id number] 01/23/2021 09:57:00 AM EDT [facility]) Name Value Range Interpretation Code Description Data Fabiola rce(s) Supporting Document(s) Hemoglobin A1c/Hemoglobin.total in Blood 10.6 % Hemoglobin a1C ROHWER ([facility]) estimated average glucose 258 mg/dL 60-110 Above high norm al Estimated Average Glucose [facility]) ID Date Data Source [id number] 01/23/2021 09:57:00 AM EDT [facility]) Name Value Range Interpretation Code Description Data Fabiola rce(s) Supporting Document(s) total 25(oh) vitamin D 14.6 NG/mL 30.0-100.0 Below low normal T otal 25(Oh) Vitamin D [facility]) ID Date Data Source [id number] 01/23/2021 09:57:00 AM EDT MARTIR ([facility]) Name Value Range Interpretation Code Description Data Fabiola rce(s) Supporting Document(s) thyroid stimulating hormone 0.947 uIU/mL 0.358-3.740 Thyroid Stimulating Hormone MARTIR ([facility]) free T4 0.81 NG/dL 0.76-1.46 Free T4 [facility] ([facility]) ID Date Data Source [id number] 01/23/2021 09:57:00 AM EDT [facility] ([facility]) Name Value Range Interpretation Code Description Data Fabiola rce(s) Supporting Document(s) triglycerides level 164 mg/dL <150 Above high normal Triglycer ides Level MARTIR ([facility]) cholesterol level 178 mg/dL <200 Cholesterol Level MARTIR ([facility]) HDL cholesterol 68 mg/dL >40 HDL Cholesterol ATHE ([facility]) Cholesterol in LDL [Mass/volume] in Serum or Plasma 77 mg/dL <1 00 LDL Cholesterol MARTIR ([facility]) non-HDL-C 110 mg/dL Non-hdl-c [facility] ([facility]) cholesterol risk ratio <5 Cholesterol R isk Ratio [facility] ([facility]) ID Date Data Source [id number] 01/23/2021 09:57:00 AM EDT ROHWER ([facility]) Name Value Range Interpretation Code Description Data Fabiola rce(s) Supporting Document(s) blood urea nitrogen 12 mg/dL 7-18 Blood Urea Nitro gen MARTIR ([facility]) glucose, fasting 354 mg/dL 70-100 Above high normal Glucose, Fas ting MARTIR ([facility]) glomerular filtration rate > 60.0 >56 Glomerula r Filtration Rate [facility]ARTIR ([facility]) creatinine for GFR 0.88 mg/dL 0.70-1.30 Creatinine for GF R [facility]IR ([facility]) sodium level 134 mEq/L 136-145 Below low normal Sodium Level ATHE NA ([facility]) potassium serum 4.1 mEq/L 3.5-5.1 Potassium Serum ATHE NA ([facility]) chloride level 101 mEq/L 98-107 Chloride Level MARTIR ([facility]) anion gap 9 mEq/L 8-16 Anion Gap [facility] ([facility]) carbon dioxide level 24 mEq/L 21-32 Carbon Dioxide Level MARTIR ([facility]) calcium level 9.3 mg/dL 8.5-10.1 Calcium Level MARTIR ( [facility]) AST/SGOT 13 U/L 7-37 AST/SGOT [facility] ([facility]) ALT/SGPT 19 U/L 12-78 ALT/SGPT [facility] ([facility]) alkaline phosphatase 79 U/L 45-117 Alkaline Phosph atase [facility] ([facility]) bilirubin,total 0.3 mg/dL 0.2-1.0 Bilirubin,total ATHE ([facility]) total protein 8.2 gm/dL 6.4-8.2 Total Protein MARTIR ( [facility]) albumin 3.7 gm/dL 3.2-5.2 Albumin [facility] ([facility]) albumin/globulin ratio Albumin/globu liz Ratio [facility] ([facility]) ID Date Data Source [id number] 01/23/2021 09:57:00 AM EDT [facility] ([facility]) Name Value Range Interpretation Code Description Data Fabiola rce(s) Supporting Document(s) erythrocyte sedimentation rate 35 mm/HR 0-20 Above high normal Erythrocyte Sedimentation Rate [facility] ([facility]) ID Date Data Source [id number] 01/23/2021 09:57:00 AM EDT ROHWER ([facility]) Name Value Range Interpretation Code Description Data Fabiola rce(s) Supporting Document(s) white blood count 7.0 10 4.0-10.0 White Blood Count MARTIR ([facility]) hemoglobin 12.6 g/dL 13.5-17.5 Below low normal Hemoglobin MARTIR ( [facility]) red blood count 4.41 10 4.30-6.10 Red Blood Count ATHE NA ([facility]) hematocrit 39.0 % 42.0-52.0 Below low normal Hematocrit MARTIR ( [facility]) mean corpuscular volume 88.4 fL 80.0-96.0 Mean Corpusc ular Volume MARTIR ([facility]) mean corpuscular HGB conc 32.3 g/dL 32.0-36.5 Mean Corpu scular HGB Conc [facility] ([facility]) mean corpuscular hemoglobin 28.6 pg 27.0-33.0 Mean Cor puscular Hemoglobin [facility]IR ([facility]) platelet count, automated 243 10 150-450 Platelet C ount, Automated [facility] ([facility]) red cell distribution width 14.1 % 11.5-14.5 Red Cell Distribution Width [facility] ([facility]) lymph % 19.9 % 24.0-44.0 Below low normal Lymph % MARTIR ( [facility]) neutrophils % 70.2 % 36.0-66.0 Above high normal Neutrophils % A THENA ([facility]) eos % 0.9 % 0.0-3.0 Eos % [facility] ([facility]) mono % 8.3 % 2.0-8.0 Above high normal [place] % MARTIR ([facility]) baso % 0.3 % 0.0-1.0 Baso % MART[facility] ([facility]) nucleated red blood cell % 0.0 % 0-0 Nucleated Red Blood Cell % MARTIR ([facility]) immature granulocyte % 0.4 % 0-3.0 Immature Gran ulocyte % MARTIR ([facility]) lymph # 1.4 10 1.5-5.0 Below low normal Lymph # MARTIR ( [facility]) neutrophils # 4.9 10 1.5-8.5 Neutrophils # MARTIR ( [facility]) eos # 0.1 10 0.0-0.5 Eos # MARTIR ([facility]) mono # 0.6 10 0.0-0.8 [place] # MARTIR ([facility]) baso # 0.0 10 0.0-0.2 Baso # [facility]ARTIR ([facility]) ID Date Data Source [id number] 12/13/2020 03:17:00 AM EDT [facility] Name Value Range Interpretation Code Description Data Fabiola rce(s) Supporting Document(s) SARS-CoV-2 (COVID 19) NEGATIVE - SARS-CoV-2 (COVID19) [facility] This lab was ordered by [facility] a nd reported by [facility]. ID Date Data Source [id number] 11/30/2020 03:22:00 PM EDT [facility] Name Value Range Interpretation Code Description Data Fabiola rce(s) Supporting Document(s) SARS coronavirus 2 RNA [Presence] in Res piratory specimen by WILEY with probe detection NEGATIVE [facility] This lab was ordered by [facility] a nd reported by [facility]. ID Date Data Source [id number] 11/06/2020 11:14:00 AM EDT [facility] Name Value Range Interpretation Code Description Data Fabiola rce(s) Supporting Document(s) GLUCOSE,METER 65-100 Above high normal [facility] ID Date Data Source [id number] 11/06/2020 09:49:14 AM EDT [facility] PATIENT INFORMATIONPatient MRN Name Date of [id number] Jose L Lam 1970 50 y.o. Weight Gender PT Class 66.7 kg M Psych InptPT Location Admission Date/Time Visit ID Attending [id number] 10/28/20 1613 --- Christine Cobb MD([id number]) EPI ID CSN Admitting Provider [id number] Eric Michel DO([id number])Psychiatric Discharge NoteDischarge Diagnosis: chronic schizophreniaPrincipal Problem: Paranoid schizophrenia ([facility] Code)Active Problems: Depressive disorder Generalized anxiety disorder Polysubstance dependence ([facility] Code) Tobacco user Viral hepatitis C Vitamin D deficiency Type 2 diabetes mellitus without complication, with long-term current use ofinsulin ([facility] Code)Hospital Course: Jose L Lam is [...] livable but his therapist(Nataliia Harris from [facility]) was able to confirm that it is [...] Daily Eric Michel DO 1 mg at11/06/20 08 dextrose 50% in water (D50w) syringe 25 [...] 30 mL 30 mLOral Daily PRN Eric Michel, metFORMIN (GLUCOPHAGE) tablet 850 mg 850 mg Oral BID MEALS Catherine Gregg MD850 mg at 11/06/20 0804 nicotine polacrilex (NICORETTE) gum 2 mg 2 mg Oral Q2H PRN Eric Michel, DO QUEtiapine (SEROquel) tablet 600 mg 600 mg Oral Bedtime Christine Cobb MD600 mg at 11/04/20 210 SITagliptin (JANUVIA) tablet 25 mg 25 mg Oral Daily Catherine Gregg MD 25 mgat 11/06/20 0803 traZODone (DESYREL) tablet 50 mg 50 mg Oral Bedtime PRN Eric Michel DODischarge Plan: Pt will be discharged to [...] will be followed up on an outpatientbasis.Jessenia GarrettOK psychiatry attending addendumPatient seen and evaluated with medical student. Chart reviewed. The abovenote has been carefully reviewed and edited to reflect the input of this physician underwriter.The patient is currently presenting as not psychotic, showing no evidence ofsuicidal thinking and future focused on return home.Christine Cobb MD Name Value Range Interpretation Code Description Data Fabiola rce(s) Supporting Document(s) ID Date Data Source [id number] 11/06/2020 07:10:00 AM EDT Health system Value Range Interpretation Code Description Data Fabiola rce(s) Supporting Document(s) GLUCOSE,METER 65-100 Above high normal [facility] ID Date Data Source [id number] 11/05/2020 07:44:00 PM EDT Health system Value Range Interpretation Code Description Data Fabiola rce(s) Supporting Document(s) GLUCOSE,METER 65-100 Above high normal [facility] ID Date Data Source [id number] 11/05/2020 04:12:00 PM EDT Health system Value Range Interpretation Code Description Data Fabiola rce(s) Supporting Document(s) GLUCOSE,METER 65-100 Above high normal [facility] ID Date Data Source [id number] 11/05/2020 11:22:00 AM EDT Health system Value Range Interpretation Code Description Data Fabiola rce(s) Supporting Document(s) GLUCOSE,METER 65-100 Above high normal [facility] ID Date Data Source [id number] 11/05/2020 06:45:00 AM EDT Health system Value Range Interpretation Code Description Data Fabiola rce(s) Supporting Document(s) GLUCOSE,METER 65-100 Above high normal [facility] ID Date Data Source [id number] 11/04/2020 09:18:00 PM EDT Health system Value Range Interpretation Code Description Data Fabiola rce(s) Supporting Document(s) GLUCOSE,METER 65-100 Above high normal [facility] ID Date Data Source [id number] 11/04/2020 11:20:00 AM EDT Health system Value Range Interpretation Code Description Data Fabiola rce(s) Supporting Document(s) GLUCOSE,METER 65-100 Above high normal [facility] ID Date Data Source [id number] 11/04/2020 08:22:00 AM EDT Health system Value Range Interpretation Code Description Data Fabiola rce(s) Supporting Document(s) GLUCOSE,METER 65-100 Above high normal [facility] ID Date Data Source [id number] 11/04/2020 06:52:00 AM EDT [facility] Name Value Range Interpretation Code Description Data Fabiola rce(s) Supporting Document(s) GLUCOSE,METER 65-100 Normal (applies to non-numeric re sults) [facility] ID Date Data Source [id number] 11/03/2020 09:40:00 PM EDT [facility] Name Value Range Interpretation Code Description Data Fabiola rce(s) Supporting Document(s) GLUCOSE,METER 65-100 Above high normal [facility] ID Date Data Source [id number] 11/03/2020 11:18:00 AM EDT [facility] Name Value Range Interpretation Code Description Data Fabiola rce(s) Supporting Document(s) GLUCOSE,METER 65-100 Above high normal [facility] ID Date Data Source [id number] 11/02/2020 09:13:00 PM EDT Health system Value Range Interpretation Code Description Data Fabiola rce(s) Supporting Document(s) GLUCOSE,METER 65-100 Above high normal [facility] ID Date Data Source [id number] 11/02/2020 04:39:00 PM EDT Health system Value Range Interpretation Code Description Data Fabiola rce(s) Supporting Document(s) GLUCOSE,METER 65-100 Above high normal [facility] ID Date Data Source [id number] 11/02/2020 11:24:00 AM EDT Health system Value Range Interpretation Code Description Data Fabiola rce(s) Supporting Document(s) GLUCOSE,METER 65-100 Above high normal [facility] ID Date Data Source [id number] 11/02/2020 06:00:00 AM EDT Health system Value Range Interpretation Code Description Data Fabiola rce(s) Supporting Document(s) GLUCOSE,METER 65-100 Above high normal [facility] ID Date Data Source [id number] 11/01/2020 04:15:00 PM EDT Health system Value Range Interpretation Code Description Data Fabiola rce(s) Supporting Document(s) GLUCOSE,METER 65-100 Above high normal [facility] ID Date Data Source [id number] 11/01/2020 11:27:00 AM EDT [facility] Name Value Range Interpretation Code Description Data Fabiola rce(s) Supporting Document(s) GLUCOSE,METER 65-100 Above high normal [facility] ID Date Data Source [id number] 11/01/2020 10:51:00 AM EDT [facility] Name Value Range Interpretation Code Description Data Fabiola rce(s) Supporting Document(s) SARS coronavirus 2 RNA [Presence] in Uns pecified specimen by WILEY with probe detection Not detected [facility] This lab was ordered by [facility] and reported by [facility]. ID Date Data Source [id number] 11/01/2020 01:37:00 PM EDT [facility] Source->NasopharyngealIs this test for d iagnosis or screening?->ScreeningRelease to patient->ImmediateReason for COVID-19 test->Routine testing of asymptomatichospitalized patientsUnit Collect Name Value Range Interpretation Code Description Data Fabiola rce(s) Supporting Document(s) SOURCE Nasopharyngeal [facility] SARS-CoV-2 BY RT-PCR Not detected Normal (applies to non-n umeric results) [facility] NEGATIVE RESULTA negative ("Not detected ") result does not qngosskvZCEP-TcS-4 infection, and a negative result should not [...] or call 911. For additional information please [email or web address] es: Coron[email or web address] hospitalGet the latest reopening updates, travel guidelines, and learn howcity of hope national medical centeres and schools are impacted.https://coronavirus .health.[place].gov/homeTesting was performed on the yony? Alvina? System using yony?SARS-CoV-2 & Influenza A/B reagent. This is a musk-kuemBI-UVD assay which qualitatively detects nucleic acid fromsevere acute respiratory syndrome coronavirus 2 (SARS-CoV-2)in suitable respiratory specimens such as nasopharyngeal swabs.This assay has been approved for use under an Emergency UseAuthorization (EUA) by the Food and Drug Administration (FDA). ID Date Data Source [id number] 11/01/2020 06:48:00 AM EDT Health system Value Range Interpretation Code Description Data Fabiola rce(s) Supporting Document(s) GLUCOSE,METER 65-100 Above high normal [facility] ID Date Data Source [id number] 10/31/2020 08:02:00 PM EDT Health system Value Range Interpretation Code Description Data Fabiola rce(s) Supporting Document(s) GLUCOSE,METER 65-100 Above high normal [facility] ID Date Data Source [id number] 10/31/2020 04:11:00 PM EDT Health system Value Range Interpretation Code Description Data Fabiola rce(s) Supporting Document(s) GLUCOSE,METER 65-100 Above high normal [facility] ID Date Data Source [id number] 10/31/2020 11:19:00 AM EDT Health system Value Range Interpretation Code Description Data Fabiola rce(s) Supporting Document(s) GLUCOSE,METER 65-100 Above high normal [facility] ID Date Data Source [id number] 10/31/2020 06:50:00 AM EDT Health system Value Range Interpretation Code Description Data Fabiola rce(s) Supporting Document(s) GLUCOSE,METER 65-100 Above high normal [facility] ID Date Data Source [id number] 10/30/2020 09:47:00 PM EDT Health system Value Range Interpretation Code Description Data Fabiola rce(s) Supporting Document(s) GLUCOSE,METER 65-100 Above high normal [facility] ID Date Data Source [id number] 10/30/2020 04:28:00 PM EDT [facility] Name Value Range Interpretation Code Description Data Fabiola rce(s) Supporting Document(s) GLUCOSE,METER 65-100 Above high normal [facility] ID Date Data Source [id number] 10/30/2020 12:10:00 PM EDT [facility] Name Value Range Interpretation Code Description Data Fabiola rce(s) Supporting Document(s) GLUCOSE,METER 65-100 Normal (applies to non-numeric re sults) [facility] ID Date Data Source [id number] 10/30/2020 11:15:23 AM EDT [facility] PATIENT INFORMATIONPatient MRN Name Date of [id number] Jose L Lam 1970 50 y.o. Weight Gender PT Class 66.7 kg M EmergencyPT Location Admission Date/Time Visit ID Attending [id number] 10/30/20 0924 --- Amna Lobato MD([id number]) EPI ID CSN Admitting Provider [id number] [facility] DEPTHistoryChief ComplaintPatient presents with Zjdpbvefdon53 y.o. male with past medical history significant [...] or trauma. No syncope.History provided by: PatientLanguage community development manager used: NoPast Medical History:Diagnosis Date Depression Diabetes mellitus ([facility] HCC Code) Schizo affective schizophrenia ([facility] HCC Code)History reviewed. No pertinent surgical history.No [...] reviewed: E[facility] and [facility] Centerardiac rate (bpm): 89 bpmEKG rhythm: sinus rhythmAxis: normalPR interval: normal [place] intervalQRS interval: normal QRS intervalQT interval: normal QT intervalST segment: ST segments normalT wave inversion on lead: aVL and [id number] impression: NSR ED CourseDifferential diagnosis: Dehydration, electrolyte [...] He agreeswith plan for transfer back to [facility]. I spoke with our CPEP team and they statedthat patient should be able to be transferred to [facility] without a anotherpsychiatric evaluation in the [...] rce(s) Supporting Document(s) ID Date Data Source [id number] 10/30/2020 09:54:00 AM EDT [facility] Release to patient->ImmediateUnit Colle t Name Value Range Interpretation Code Description Data Fabiola rce(s) Supporting Document(s) SODIUM 136-145 Normal (applies to non-numeric resul ts) [facility] POTASSIUM 3.5-5.2 Normal (applies to non-numeric resul ts) [facility] CHLORIDE 100-110 Normal (applies to non-numeric resul ts) [facility] CO2 22-31 Normal (applies to non-numeric results) [facility] ANION GAP 3-18 Normal (applies to non-numeric resul ts) [facility] BUN 7-21 Above high normal [facility] CREATININE 0.8-1.3 Normal (applies to non-numeric resul ts) [facility] GLUCOSE 60-100 Above high normal [facility] CALCIUM 8.4-10.0 Normal (applies to non-numeric resul ts) [facility] ID Date Data Source [id number] 10/30/2020 10:01:00 AM EDT [facility] Release to patient->ImmediateUnit Collec t Name Value Range Interpretation Code Description Data Fabiola rce(s) Supporting Document(s) REACTIVE LYMPHS 0-0 Above high normal [facility] MANUAL DIFFERENTIAL PERFORMED [facility] RBC MORPHOLOGY NORMAL [facility] ID Date Data Source [id number] 10/30/2020 10:01:00 AM EDT [facility] Release to patient->ImmediateUnit Collec t Name Value Range Interpretation Code Description Data Fabiola rce(s) Supporting Document(s) WBC 4.7-10.6 Normal (applies to non-numeric resul ts) [facility] RBC 4.69-6.09 Below low normal [facility] HGB 13.8-17.9 Below low normal [facility] HCT 43-51 Below low normal [facility] MCV 80-97 Normal (applies to non-numeric results) [facility] MCH 26.6-30.7 Normal (applies to non-numeric resul ts) [facility] MCHC 31.8-34.9 Normal (applies to non-numeric resul ts) [facility] RDW 12.9-16.0 Normal (applies to non-numeric resul ts) [facility] PLATELET COUNT 142-414 Normal (applies to non-numeric r esults) [facility] MPV 8.9-12.3 Normal (applies to non-numeric resul ts) [facility] NEUTROPHILS 45-75 Normal (applies to non-numeric resu lts) [facility] LYMPHOCYTES 15-45 Normal (applies to non-numeric resu lts) [facility] MONOCYTES 0-15 Normal (applies to non-numeric resul ts) [facility] EOSINOPHILS 0-5 Normal (applies to non-numeric resu lts) [facility] BASOPHILS 0-3 Normal (applies to non-numeric resul ts) [facility] NEUTROPHIL # 2.0-7.2 Normal (applies to non-numeric res ults) [facility] LYMPHOCYTE # 0.6-3.3 Normal (applies to non-numeric res ults) [facility] MONOCYTE # 0.1-1.1 Normal (applies to non-numeric resul ts) [facility] EOSINOPHIL # 0.0-0.7 Normal (applies to non-numeric res ults) [facility] BASOPHIL # 0.0-0.1 Normal (applies to non-numeric resul ts) [facility] ID Date Data Source [id number] 10/30/2020 09:54:00 AM EDT [facility] Release to patient->ImmediateUnit [facility] t Name Value Range Interpretation Code Description Data Fabiola rce(s) Supporting Document(s) GFR BLACK 56-130 Normal (applies to non-numeric resul ts) [facility] For both GFR and GFR BLACK, th e accuracy of the GFRcalculation is contingent on a stable level of serumcreatinine. The GFR calculation is normalized to 1.73 "meterssquared" body surface area. A GFR less than 60 may alterclinical management decisions. A GFR within the age-adjustedreference range does not exclude kidney disease. ID Date Data Source [id number] 10/30/2020 09:54:00 AM EDT [facility] Release to patient->ImmediateUnit [facility] t Name Value Range Interpretation Code Description Data Fabiola rce(s) Supporting Document(s) GFR 56-130 Normal (applies to non-numeric re sults) [facility] ID Date Data Source [id number] 10/30/2020 08:56:00 AM EDT [facility] Name Value Range Interpretation Code Description Data Fabiola rce(s) Supporting Document(s) SARS coronavirus 2 RNA [Presence] in Uns pecified specimen by WILEY with probe detection Not detected [facility] This lab was ordered by [facility] and reported by [facility]. ID Date Data Source [id number] 10/30/2020 09:58:00 AM EDT [facility] Source->NasopharyngealIs this test for d iagnosis or screening?->ScreeningRelease to patient->ImmediateReason for COVID-19 test->Routine testing of asymptomatichospitalized patientsUnit Collect Name Value Range Interpretation Code Description Data Fabiola rce(s) Supporting Document(s) SOURCE Nasopharyngeal [facility] SARS-CoV-2 BY RT-PCR Not detected Normal (applies to non-n umeric results) [facility] NEGATIVE RESULTA negative ("Not detected ") result does not [id number] infection, and a negative result should not [...] or call 911. For additional information please [email or web address] es: Coronavirus in [facility]www.[email or web address] hospitalGet the latest reopening updates, travel guidelines, and learn howcity of hope national medical centeres and schools are impacted.https://[email or web address] .health.[place].gov/homeTesting was performed on the yony? Alvina? System using yony?SARS-CoV-2 & Influenza A/B reagent. This is a gzyl-obnbAW-HXB assay which qualitatively detects nucleic acid fromsevere acute respiratory syndrome coronavirus 2 (SARS-CoV-2)in suitable respiratory specimens such as nasopharyngeal swabs.This assay has been approved for use under an Emergency UseAuthorization (EUA) by the Food and Drug Administration (FDA). ID Date Data Source [id number] 10/30/2020 06:56:00 AM EDT [facility] Name Value Range Interpretation Code Description Data Fabiola rce(s) Supporting Document(s) GLUCOSE,METER 65-100 Above high normal [facility] ID Date Data Source [id number] 10/29/2020 08:28:00 PM EDT [facility] Name Value Range Interpretation Code Description Data Fabiola rce(s) Supporting Document(s) GLUCOSE,METER 65-100 Above high normal [facility] ID Date Data Source [id number] 10/29/2020 04:24:00 PM EDT [facility] Name Value Range Interpretation Code Description Data Fabiola rce(s) Supporting Document(s) GLUCOSE,METER 65-100 Above high normal [facility] ID Date Data Source [id number] 10/29/2020 02:52:05 PM EDT [facility] PATIENT INFORMATIONPatient MRN Name Date of [id number] Jose L Lam 1970 50 y.o. Weight Gender PT Class 66.7 kg M Psych InptPT Location Admission Date/Time Visit ID Attending [id number] 10/28/20 1613 --- Christine Cobb MD([id number]) EPI ID CSN Admitting Provider [id number] Eric Michel DO([id number])Psychiatrist Note - Comprehensive Psychiatric Emergency ProgramDate: 10/28/20 at 5:07 PMConsultant requested By: Dr. Steele of Present IllnessPlease see clinical director of sales support note for comprehensive detailsThitre is a 50-year-old -[place] male with history of schizophrenia andsubstance use who was transferred [facility] due to paranoiaand command auditory hallucinations. Patient [...] as overdose. He is currently living alone andsine.Vital SignsVitals: 10/28/20 1615BP: 92/61Pulse: 97Resp: 18Temp: 36.5 [...] paranoid typeCocaine use disorderAssessmentThis is a 50-year-old -[place] male with history of schizophrenia andsubstance abuse who presents due to paranoia and command auditoryhallucinations. Patient continues to report paranoid delusions and commandauditory hallucinations telling him to harm himself and others. Patientrequires inpatient hospitalization for safety and stabilization.PlanPatient will be admitted to [facility] under 9.37 for safety and stabilization.Human Resources Assistant: Eric Michel DO at 5:07 PM Name Value Range Interpretation Code Description Data Fabiola rce(s) Supporting Document(s) ID Date Data Source [id number] 10/29/2020 11:34:00 AM EDT [facility] Name Value Range Interpretation Code Description Data Fabiola rce(s) Supporting Document(s) GLUCOSE,METER 65-100 Above high normal [facility] ID Date Data Source [id number] 10/29/2020 06:37:00 AM EDT [facility] Name Value Range Interpretation Code Description Data Fabiola rce(s) Supporting Document(s) GLUCOSE,METER 65-100 Above high normal [facility] ID Date Data Source [id number] 10/29/2020 12:15:00 PM EDT [facility] Release to patient->ImmediateUnit Colle t Name Value Range Interpretation Code Description Data Fabiola rce(s) Supporting Document(s) eAVERAGE GLUCOSE 68-126 Above high normal [facility] HEMOGLOBIN A1C 4.2-5.6 Above high normal [facility] Herpes simplex virus Type I by Direct Fl uorescent Antibody Stain.No Varicella Zoster Virus by Direct Fluorescent Antibody Stain.Per ADA 2018 Guidelines, HbA1c values should be interpreted as follows: Normal: less than 5.7% Prediabetes: 5.7% - 6.4% Diabetes: greater than 6.4%Samples containing >7% HbF may yield lower than expected HbA1c results.Additional testing not affected by HbF can be requested if clinicallyindicated. Contact [phone] for more information. ID Date Data Source [id number] 10/30/2020 12:20:00 PM EDT [facility] Release to patient->ImmediateUnit [facility] t Name Value Range Interpretation Code Description Data Fabiola rce(s) Supporting Document(s) HEP C RNA PCR(QUANT) NOT DETECTED Abnormal (applies to non -numeric results) [facility] HEP C RNA PCR LOG CONVERSION 0.0 Abnormal (applies to non-numeric results) [facility] The HCV Viral Load assay is reported [...] Acid Test (NINO). ID Date Data Source [id number] 10/29/2020 02:01:00 PM EDT [facility] Release to patient->[facility] t Name Value Range Interpretation Code Description Data Fabiola rce(s) Supporting Document(s) T PALLIDUM AB NONREACTIVE Normal (applies to non-numeric r esults) [facility] T.pallidum Antibody Index: less than 0.9 0A [...] TPal Ab Index ID Date Data Source [id number] 10/29/2020 07:11:00 AM EDT [facility] Release to patient->ImmediateUnit Colle t Name Value Range Interpretation Code Description Data Fabiola rce(s) Supporting Document(s) GFR BLACK 56-130 Normal (applies to non-numeric resul ts) [facility] For both GFR and GFR BLACK, th e accuracy of the GFRcalculation is contingent on a stable level of serumcreatinine. The GFR calculation is normalized to 1.73 "meterssquared" body surface area. A GFR less than 60 may alterclinical management decisions. A GFR within the age-adjustedreference range does not exclude kidney disease. ID Date Data Source [id number] 10/29/2020 07:11:00 AM EDT [facility] Release to patient->ImmediateUnit [facility] t Name Value Range Interpretation Code Description Data Fabiola rce(s) Supporting Document(s) GFR 56-130 Normal (applies to non-numeric re sults) [facility] ID Date Data Source [id number] 10/29/2020 07:11:00 AM EDT [facility] Release to patient->ImmediateUnit [facility] t Name Value Range Interpretation Code Description Data Fabiola rce(s) Supporting Document(s) SODIUM 136-145 Normal (applies to non-numeric resul ts) [facility] POTASSIUM 3.5-5.2 Normal (applies to non-numeric resul ts) [facility] CHLORIDE 100-110 Normal (applies to non-numeric resul ts) [facility] CO2 22-31 Normal (applies to non-numeric results) [facility] ANION GAP 3-18 Normal (applies to non-numeric resul ts) [facility] BUN 7-21 Normal (applies to non-numeric results) [facility] CREATININE 0.8-1.3 Normal (applies to non-numeric resul ts) [facility] GLUCOSE 60-100 Normal (applies to non-numeric resul ts) [facility] CALCIUM 8.4-10.0 Normal (applies to non-numeric resul ts) [facility] TOTAL PROTEIN 6.4-8.2 Normal (applies to non-numeric re sults) [facility] ALBUMIN 3.5-5.0 Normal (applies to non-numeric resul ts) [facility] GLOBULIN 2.6-3.2 Above high normal [facility] A/G RATIO 1.1-1.8 Below low normal [facility] BILI, TOTAL 0.1-1.1 Normal (applies to non-numeric resu lts) [facility] AST 15-37 Normal (applies to non-numeric results) [facility] ALT 15-60 Normal (applies to non-numeric results) [facility] ALK PHOS 39-117 Normal (applies to non-numeric resul ts) [facility] ID Date Data Source [id number] 10/29/2020 07:11:00 AM EDT [facility] Release to patient->ImmediateUnit Colle t Name Value Range Interpretation Code Description Data Fabiola rce(s) Supporting Document(s) CHOLESTEROL 50-180 Normal (applies to non-numeric resu lts) [facility] TRIGLYCERIDES 30-150 Normal (applies to non-numeric re sults) [facility] HDL CHOLESTEROL 40-60 Normal (applies to non-numeric results) [facility] HDL levels are inversely related to the incidence of coronaryheart disease (CHD).HDL less than 40 mg/dL.........Increased risk for CHDHDL greater than 59 mg/dL.......Negative risk for CHD non-HDL-C 95-160 Below low normal [facility] CHOL/HDL RATIO [facility] CHD CHOL/HDL RATIORisk Group Men Women Lowest <3.8 <2.9Low 3.8-4.7 2.9-3.6Moderate 4.8- 5.9 3.7-4.6High >5.9 >4.6 LDL (calc) 30-100 Normal (applies to non-numeric resul ts) [facility] ID Date Data Source [id number] 10/29/2020 07:11:00 AM EDT [facility] Release to patient->ImmediateUnit Colle t Name Value Range Interpretation Code Description Data Fabiola rce(s) Supporting Document(s) FOLATE 5.9-23.3 Normal (applies to non-numeric resul ts) [facility] ID Date Data Source [id number] 10/29/2020 07:11:00 AM EDT [facility] Release to patient->ImmediateUnit Collec t Name Value Range Interpretation Code Description Data Fabiola rce(s) Supporting Document(s) VIT B12 211-911 Normal (applies to non-numeric resul ts) [facility] ID Date Data Source [id number] 10/29/2020 06:21:00 AM EDT [facility] Release to patient->ImmediateUnit Colle t Name Value Range Interpretation Code Description Data Fabiola rce(s) Supporting Document(s) WBC 4.7-10.6 Normal (applies to non-numeric resul ts) [facility] RBC 4.69-6.09 Below low normal [facility] HGB 13.8-17.9 Below low normal [facility] HCT 43-51 Below low normal [facility] MCV 80-97 Normal (applies to non-numeric results) [facility] MCH 26.6-30.7 Normal (applies to non-numeric resul ts) [facility] MCHC 31.8-34.9 Normal (applies to non-numeric resul ts) [facility] RDW 12.9-16.0 Normal (applies to non-numeric resul ts) [facility] PLATELET COUNT 142-414 Normal (applies to non-numeric r esults) [facility] MPV 8.9-12.3 Normal (applies to non-numeric resul ts) [facility] ID Date Data Source [id number] 10/29/2020 02:09:58 AM EDT [facility] PATIENT INFORMATIONPatient MRN Name Date of [id number] Jose L Lam 1970 50 y.o. Weight Gender PT Class 66.7 kg M Psych InptPT Location Admission Date/Time Visit ID Attending [id number] 10/28/20 1613 --- Eric Michel DO(532) EPI ID CSN Admitting Provider [id number] Eric Michel DO(532)Date: 10/29/2020Name: Jose L WalkergMRN: [id number]: 1970Admit Date: 10/28/2020ttending Provider: Eric [facility] Care Physician: No primary care provider on [...] Social Gatherings with Friends and Family: Attends [employer]: Active Member of Clubs or Organizations: [...] mg by mouth 2 (two) times daily. YesProvider, Historical, MDergocalciferol 50,000 unit Oral capsule Take 50,000 Units by mouth once a week.Yes ProviderJeremy MDgabapentin 800 MG Oral tablet Take 800 [...] mg 50 mg Oral Bedtime PRN Eric Michel DOCode Status: Full CodeReview of systems:Review of [...] rce(s) Supporting Document(s) ID Date Data Source [id number] 10/28/2020 09:43:00 PM EDT [facility] Name Value Range Interpretation Code Description Data Fabiola rce(s) Supporting Document(s) GLUCOSE,METER 65-100 Above high normal [facility] ID Date Data Source [id number] 10/28/2020 05:57:00 PM EDT [facility] Name Value Range Interpretation Code Description Data Fabiola rce(s) Supporting Document(s) GLUCOSE,METER 65-100 Above high normal [facility] ID Date Data Source [id number] 10/28/2020 05:32:23 PM EDT [facility] PATIENT INFORMATIONPatient MRN Name Date of [id number] Jose L Lam 1970 50 y.o. Weight Gender PT Class 63.5 kg M CPEPPT Location Admission Date/Time Visit ID Attending [id number] 10/28/20 1613 --- Eric Michel DO(532) EPI ID [facility] Admitting Provider [id number] ---[facility] EMERGENCY DEPTHistoryChief ComplaintPatient presents with Psychiatric EvaluationPatient is a 50-year-old male with a past medical history of schizophrenia andsubstance abuse who presented to [facility] with paranoia, callingthe police roughly 6 times [...] medical records.Records summary: Reviewed his records from [facility] COVID-19 wasnegative, the rest of his labs other than his tox screen being positive foramphetamines and cocaine was negativeED course details: Patient is afebrile, nontoxic-appearing and hemodynamicallystable. Patient presents as a transfer from [facility] where hewas seen for an acute psychosis, [...] admitted topsychiatry for further work-up and treatment.ED AttestationAttCornelio Montenegro, DO10/28/20 1732 Name Value Range Interpretation Code Description Data Fabiola rce(s) Supporting Document(s) ID Date Data Source [id number] 10/27/2020 11:29:00 PM EDT [facility] Name Value Range Interpretation Code Description Data Fabiola rce(s) Supporting Document(s) SARS coronavirus 2 RNA [Presence] in Res piratory specimen by WILEY with probe detection NEGATIVE [facility] This lab was ordered by [facility] a nd reported by [facility]. ID Date Data Source [id number] 10/01/2020 01:21:00 PM EDT [facility] Name Value Range Interpretation Code Description Data Fabiola rce(s) Supporting Document(s) SARS coronavirus 2 RNA [Presence] in Res piratory specimen by WILEY with probe detection NEGATIVE [facility] This lab was ordered by [facility] a nd reported by [facility]. ID Date Data Source [id number] 09/06/2020 01:55:30 PM EST [facility] Name Value Range Interpretation Code Description Data Fabiola rce(s) Supporting Document(s) Progress Notes [facility] TGVQCy2xQsSWDoFy71/DYEoxJLCmw3VdRUuxTTj4PUfzCRTqP4EwCJK1hY6rYIG3SCcJCsSrHiDjNgOh lbm [file] O2RTX6dQUkJt5CQvT1YZtBWhJtPY7NRDu= ID Date Data Source [id number] 09/06/2020 11:39:00 AM EST [facility] Name Value Range Interpretation Code Description Data Fabiola rce(s) Supporting Document(s) Glucose, Fingerstick 287 mg/dl 70-110 Above high normal [facility] The above 1 analytes were performed by [facility] [id number] [place] [address],[facility]#: [id number],[place] [address] ID Date Data Source [id number] 09/06/2020 11:33:24 AM EST [facility] Name Value Range Interpretation Code Description Data Fabiola rce(s) Supporting Document(s) Discharge Summary [facility] APHKHj9yIsXGNbNa77/BDOspCUPpq8ScMGxqVLe5JQniUZTzI5DbYTK7bD8cXZI3MRqFNhSxQmWtPoDc lbm [file] ICAgICAgICAgICAgICAgICAgICAgICAgICAgICAgIC MiELQuUBFyKBSeOVXiPKBnNJKpKGBgXELjSRYwACCjOJVqEOYjQGCvBMDhWVYdQSFsLGEwXATxWK4UGG AgICAgICAgICAgICAgICAgICAgICAgICAgICAgICAgICAgICAgICAgICAgICAgICAgICAgICAgICAgIC AgICAgICAgICAgICAgICAgICAgICAgICAgICAgICAg EMIhIOEeBY0HOGWqFMIaTOAlVWEmPIIeJWIkCKQyHNWoIMYtRJSiHTMnZTTmINOaCFVmIBKwUZOsLXDn DYQwRPInQNZqCBOpVOEkRSKqIRGhSQWeKFOlVCRrPVYvXFTxYYXwWEWqJJVoZMGjDG9RUIZvRZOvYLCq ICAgICAgICAgICAgICAgICAgICAgICAgICAgICAgIC AgICAgICAgICAgICAgICAgICAgICAgICAgICAgICAgICAgICAgICAgICAgICAgICAgICAgICAgICAgIA 0KICAgICAgICAgICAgICAgICAgICAgICAgICAgICAgICAgICAgICAgICAgICAgICAgICAgICAgICAgIC AgICAgICAgICAgICAgICAgICAgICAgICAgICAgICAg FFYlIZQfXQHhTA2HMGOqVMNwBLCxIWGeSHLmBKQkASCqCVQgQGHlXNBhZNTtDGEbIRQfJEHmUQHwBOAg CYNsOXUoDRYgQGOcKNYwFJTsCRIbSWIzVJImSYEsROWiYHHaTOSyRHIiRUNcATHkXMLvUB1LDKJfVWLe ICAgICAgICAgICAgICAgICAgICAgICAgICAgICAgIC AgICAgICAgICAgICAgICAgICAgICAgICAgICAgICAgICAgICAgICAgICAgICAgICAgICAgICAgICAgIC UrVV0HFZKoFIWyTOJiLPKtYGClKRWkFNQwQSFdQWBlBTXkMFXnOMFnOSXdCMQoCBKcUWThRTGcCMWnDS AgICAgICAgICAgICAgICAgICAgICAgICAgICAgICAg TTSlVJFiBCSnTRWjKI4ZYQMsJTZmVAQaEEUsVTEvPLTlGJOrSQGcUAMwJRZqGVFqHQQhWLAwOUGzCIFx ZILjXHEwQFEhDDQwPWUiLLOyMMCtFEUjSFEgPNRcWZDeXTZcVEVfTJBoUBJtCQPhJOTfHRMhBK8TAW36 sLHlt3A5ZPJbWK1dyor/Lb6HBKthkyEkxNTtRS0GFi LlKZ3wem1BLlHhDG6gef1LWKdKGxWcD4X1mJNaQVBrQUFYQiIkU11dYVfxVb71PYvzTAFnLyDcJOw8Vs 3BEoEqT2vnKPMvViX9IEKaYmI9IZYdOrVeZWimHA3Dp5GsiFHcJYg+Sf4OBO3qo3UqXVehNjLyVU7dbr 5OGXzIZhYhO8SootZ7LUYbPIQoTn7TMPCoYNExiSQm KvUgKNCIOdNuR1RosR63LEWQPr4+CQwmvnGsTjpIRtVeCDDme6DdNEm7BY9QDAEaHVt3cYByYOdiH9cf jizjCSJ2aN2tktlcZiylO7WavZXlEMqnu4Snv1PiwEQbXAbdHFZcNSHdCe7hOY6cWOApGVCgSmZqOSMM BS8CDGFoDGLrxOEsNDIdTNEEMP3NSNioHJZ8Zkfdfj WorFBxBWiaWY4YIGBqfuFmSnHmVVISEIv+Dl4DYQ6bm9NwAYaxCZJyGZ2lkf6SBQfHJoGcW5V2aBLqT2 M7FJswGv5RXLImUSNxGdRlWJGKCIasYY9MRJ5obsT0CD2ZeUDxHHFnPCLpdMDwCKd1Z70zkXDlGQmaMK 0KICA+Anais+Pq0ZAWMrASFfYDSbCvKaYLMFYoAjI8Jt Z7NRe5JrO4LhOU55dZefkkPpYZrrNB7YBH2kZNSjSBCFZN6PkQYywR4zjcGyHeIpUWIVSbMuN78cjGVg ZIPkJXGjTWAkPl4KWMCoM3HjnkHedFsabfGePPXlSFMHRF2VLLtsxtTvpZBgrLuzTH57pEprLH6GRw9S FsCeAF3qic1FeTJcRx0JCSCsEU8JFMCtJAPbNLKfOR A4OQCmUaXxHTjdQQGzLUZiNHW9PZTlOVLcSU5ZZrSnANFxSPZePWvbLUPxDZVtcj2CQKKvYAHaPEd1Yw ZfAIXdKGPhZXmpFXAnHXWuNQM1GDMrZLPhMW3JFrUtKUQlWEMkVANrMNGvDRYdby2EJOYjKFYhFnP1DK MpQZPxBIXnDZrqNCJnIWW9NiE4NZIoKUQoHV9MQfJo XFDaXXV8AHEvEMZnYCFqfn7JUKHiDHExSQo8XZLcJJDwMTAsJVchOXAxEHD0MMY5LCZsQEOyMK1QIoVd PSIoCWGoJPAdUXVoKFKild7AZTMgXNLdJyErXDUxOEIqGBVfXVldEIEuMWE3QhAoHOZvWNJjJP4VDoTh JTGzRHi4VMKhUVMbWEXxtb3LWOGdZEDoNMM5NYFpNY FnYKCpIFpnEFZoZOA5QjOfIZXoSOJtOC4SIcUiZJMzYBf0TAAtGAIqUWXtbj0ZIEItRLHeTLwwMJOwPL BwBWKmEBbxVLCaXTGrBGNoQZMqJTZxQK7SEnIdYHYlAYKxXOJqQRLiLVTnve5OZBPuYUMpPDKsGmEuRU EgHDLfAXxjBYFlZNCjYJjbYSFcMRWhMA3BLhScDPAk ZIRlRVDoNKZgXLElvg0YNVXlMARaFyTrBCJbTGVjTMVgVNa0mhBecSYgOZv8QF6PS8HefxGqElXZDr0G t106JKX3NMAsDz6UW0guFw1mNWTpBJSSKc2QUOi6PPBrRnv3QFk3T5CjCWVhAFI1AXShJPu8MXQ7LuCz ZGM+ECzaJTZsHln1Amn1K2O3BmT1YhzaYvM1SGx4YW bsGtJpXo7dOHPPYv3+YOgmpYBczPotQSNUYfBuWXEbIHhpOOFSSa8H ID Date Data Source [id number] 09/06/2020 10:44:53 AM EST [facility] Name Value Range Interpretation Code Description Data Fabiola rce(s) Supporting Document(s) Nursing Note [facility] GJKTAh9cZsWZMaHk62/XUWipUGCvl3IgDZutVIz0XXfgVQDuZ9RfFLQ3jY4mNQX7MJwQUzVvXvEnLtNv lbm [file] M4Njc+DW4dTOd+Gh4Tp1AyzdH3kbMeDAhcMFt9JQ6TAJCPF5WPKi== ID Date Data Source [id number] 09/06/2020 09:42:05 AM [facility] Patient: JOSE L LAM : 9 PACS [facility]: [facility] 1-2 VIEWS BILATERAL Provider: ROYAL [...] rce(s) Supporting Document(s) ID Date Data Source [id number] 09/06/2020 07:57:00 AM [facility] Name Value Range Interpretation Code Description Data Fabiola rce(s) Supporting Document(s) Glucose, Fingerstick 179 mg/dl 70-110 Above high normal [facility] The above 1 analytes were performed by [facility] [id number] [facility]#: [id number],[place] [address] ID Date Data Source [id number] 09/06/2020 05:45:55 AM EST [facility] Name Value Range Interpretation Code Description Data Fabiola rce(s) Supporting Document(s) Nursing Note [facility] OVLQNk3nSuMNRbBl32/CHEznUWNbi4IhTQutYZo7OTuvJYShW5KuCKN9gB6qVVJ1MVjYAqPoLnKpMuVx lbm [file] W1MmOCOrCyGD7UKZn= ID Date Data Source [id number] 09/06/2020 02:38:48 AM EST [facility] Name Value Range Interpretation Code Description Data Fabiola rce(s) Supporting Document(s) Progress Notes [facility] NSRWOf5tXkPPYrBr28/YPApjEWEty9JbPAwbJCc3MVvlRRBeZ5MdCGY9zO4fHIX8ERbTFhLiDxIfTxCe lbm MiOzwGXaCuEXOePctNQzPtSHznVfukqMRkCN3DuWF0IPXkO36uTZTsLAQnD0XfPHHuSEI+Sz9IMQBvcE YnWX7MVrzS4HoVm1jIWQ8P5J+NOcZG8v6NHF83A5pxNGnqqSt9wGydUcQerZMFnxw+eUfVNV5u72to2a GNYL0qWLP1i25a6Z2hofngY3IgE3jwoj/jw5hVoylv +jAk1sWAm5/Fo4TS7FKGUhEXJ0FULH/3tmMfpI8NUyMnmzihd4gx6aZOPHnPW1nHXsKagE6kVDfpXSAa qZdTJotlySvEPMRFPkLrLNta0AIpOE4KA+1z7tTV9sPN7zcQfF7UEUWgcwPyVwPZApwbyhVYdVgCQd5Z yPmD16CxJR0w1X095Q5qoOnWRI7vFNW+3R/RhwUsLk LVgLIAhHXb0AilzXKi7rqiXNzYFymnViQvS+pPhtdz2R+KmNTL9FBDm2QY37PKlN1my2zRROVuoui6fi xFCENIsSXgSZ8eQR2ywu2vc0pK7oSKo4KchgJuWEIb8eBJZJ0oUKz8YLhxORpctHwyGrjuFdY9z3i8Ed Y22hNsIViLvljPpK2v17Uhw8y7LNcYtFY5z3U2LRqr sXGujq2P+EZNo7mk/F0AkQJeXYCHX3/4gzRQFFrbR/NhB3OIDw4TpTSgekv57wRpkGHfdx5feCmFpGRD Mr13LC7xphVX8VU/Kq8glql8zwIQ9jWrQ0rzHp+rzP9vsMBIRiI0Vb59DX/VhYfpjAxlzmC1eapGmJSp zgTGf+debbie/Wwelg/0rqBqOCr9CIlccsfV3iF0e5Tfu [file] XKX3JNtlZNHETb7S ID Date Data Source [id number] 09/05/2020 08:22:27 PM EST [facility] Name Value Range Interpretation Code Description Data Fabiola rce(s) Supporting Document(s) Nursing Note [facility] KKUOJg7rQoRITeLv23/LITqaQDEnx1CwMFupVDm3HYuwCYGxB3KcNUY9iL9dFNB9WBnRUyDvOnExTrWh lbm [file] 5EAxT1LMH1kAEeEs9XUqObIALFMwStNO5TUMd= ID Date Data Source [id number] 09/05/2020 07:47:00 PM EST [facility] Name Value Range Interpretation Code Description Data Fabiola rce(s) Supporting Document(s) Glucose, Fingerstick 225 mg/dl 70-110 Above high normal [facility] The above 1 analytes were performed by [facility] [id number] [place] [address],[facility]#: [id number],[place] [address] ID Date Data Source [id number] 09/05/2020 05:04:11 PM EST [facility] Name Value Range Interpretation Code Description Data Fabiola rce(s) Supporting Document(s) Care Plan [facility] XMQHSf7uKmAHEaJg32/SXMthRWTwe2HjMGleBBg8VGalHHVyF6MhGQK5mL4lGGL9OQtCInTsDwIrTeJi lbm [file] 0xYWQOKg3+NHbkkZArrRepVVCCYeC4BhSdZSpmTBRTRg2G ID Date Data Source [id number] 09/05/2020 04:56:00 PM EST [facility] Name Value Range Interpretation Code Description Data Fabiola rce(s) Supporting Document(s) Glucose, Fingerstick 158 mg/dl 70-110 Above high normal [facility] The above 1 analytes were performed by [facility] [id number] [place] [address],[facility]#: [id number],[place] [address] ID Date Data Source [id number] 09/05/2020 03:08:32 PM EST [facility] Name Value Range Interpretation Code Description Data Fabiola rce(s) Supporting Document(s) Progress Notes [facility] CUHJAb4tOnRBDlQq88/JCXgqBHRpu4ClKVqyULv9FBhiHROwX9XsANR2lE8eYOM8SToGQwPlNjLzEmIx lbm [file] PONyANJkHADePF3jDPGMZk9+MYtwzTVmkHgdKUUQJdM5KYcnEShjRMXKHt7R ID Date Data Source [id number] 09/05/2020 11:32:00 AM EST [facility] Name Value Range Interpretation Code Description Data Fabiola rce(s) Supporting Document(s) Glucose, Fingerstick 419 mg/dl 70-110 Above high normal [facility] The above 1 analytes were performed by [facility] [id number] [facility]#: [id number],[place] [address] ID Date Data Source [id number] 09/05/2020 10:57:11 AM EST [facility] Name Value Range Interpretation Code Description Data Fabiola rce(s) Supporting Document(s) Progress Notes [facility] EXZJJv9zZyRCUsNj99/FHUxbHOZor4IeTVtmZDa6ZVjeKWBaX8InPAU1bP0mHOW0UAkANjYhZjAeIpEv lbm [file] Fn8Uo5HiunI9xrDqHRo1GKMzCUbyZGJXHg0B ID Date Data Source [id number] 09/05/2020 07:48:00 AM EST [facility] Name Value Range Interpretation Code Description Data Fabiola rce(s) Supporting Document(s) Glucose, Fingerstick 187 mg/dl 70-110 Above high normal [facility] The above 1 analytes were performed by [facility] [id number] [place] [address],[facility]#: [id number],[place] [address] ID Date Data Source [id number] 09/05/2020 05:28:33 AM EST [facility] Name Value Range Interpretation Code Description Data Fabiola rce(s) Supporting Document(s) Nursing Note [facility] PIEDJz9sGvSPNgQk24/XRBltLWFqg4XbMChjRVk2CJsrQAAlS6NwSON1dZ7sQRI2DFwJFjTqUnAnWzZk lbm [file] ZDE1GNIu== ID Date Data Source [id number] 09/05/2020 02:00:21 AM EST [facility] Name Value Range Interpretation Code Description Data Fabiola rce(s) Supporting Document(s) Nursing Note [facility] GCYGIh1sKaSKKhTj66/GTIjzUBFvv1YiFShfFEq0NZqcPPSrY0YmLOD7eR9iKBG0CKsJEfFgDzFaZkIy lbm [file] ID Date Data Source [id number] 09/05/2020 01:57:41 AM EST [facility] Name Value Range Interpretation Code Description Data Fabiola rce(s) Supporting Document(s) Care Plan [facility] UFRYEh1vMaJAPxTm63/FMKphXGAuk6RfOYhvRTq3CDghMKAbP0UlBHH0uE5nURP0BSbCHmOeMoVrJfFd lbm [file] ICAgICAgICAgICAgICAgICAgICAgICAgICAgICAgICAgICAgICAgICAgICAgICAgICAgICAgICAgICAg JXSwHDOxVVMnWEOuXNFpQXAxVLGrHEBxHWLtWD0CZDRcEFVoCUBjYRObFEHnWQJtMCFtCPTkANGuCCCt ICAgICAgICAgICAgICAgICAgICAgICAgICAgICAgIC DhJGTxFNWtASLqNBDeFPErIIRsGSLyALCdGRDuEQPqDNHrNIDfRQ7DVPQzSCBiXLSbHNZmNDChQXVqUX AgICAgICAgICAgICAgICAgICAgICAgICAgICAgICAgICAgICAgICAgICAgICAgICAgICAgICAgICAgIC CuPZKeKQPlOXQcJTDmLBZgDJFnAR0FXOKiAPGbLDCk ICAgICAgICAgICAgICAgICAgICAgICAgICAgICAgICAgICAgICAgICAgICAgICAgICAgICAgICAgICAg TOAqQQPzDAAsMLQeQRNtBQFtRCPoJVKfGZJqEYLeKP3QLJEsDKWhDHTnTLUzUFZxEVNdQLTrRDOnBRWn ICAgICAgICAgICAgICAgICAgICAgICAgICAgICAgIC WcJPYjDLSdFRVlPGYzYQNaPNMaWWLvWXFtKDDxPFAjTHEpJVWkMJUhCY1OWRYkJTXcPEAlFKIxYTZtVC AgICAgICAgICAgICAgICAgICAgICAgICAgICAgICAgICAgICAgICAgICAgICAgICAgICAgICAgICAgIC DkNIVyCPPwQJEpDVPuYNCkXTImUICdKW7TBBLxBAVh ICAgICAgICAgICAgICAgICAgICAgICAgICAgICAgICAgICAgICAgICAgICAgICAgICAgICAgICAgICAg PEUuCFDgUTCgKAAlOREbRPIiOAUnCUEsWPHlBTLgIHTdMZ9PTPUsFKDrQFLxAFUuWHIvPXCyDNDvKXJz ICAgICAgICAgICAgICAgICAgICAgICAgICAgICAgIC IsXSCyOWKxWLOfLZVcKAGkPZHvBEHyLQDeFQZlGGTwWVSlOUPeJFAxOGDzFR5MZYGpGOAnIAAxWDCkER AgICAgICAgICAgICAgICAgICAgICAgICAgICAgICAgICAgICAgICAgICAgICAgICAgICAgICAgICAgIC CbMAGaJPIzGIDyDYRnUFVvYYAnDFSuIFLfIN7LBBPj ICAgICAgICAgICAgICAgICAgICAgICAgICAgICAgICAgICAgICAgICAgICAgICAgICAgICAgICAgICAg SLIeLHNjPLDeAZFcSPVkQONaPOIbQHCgTITwLMTsUOWvCOSoII2CDP67nLCba1N0KIPmXW6juzh/Pg0K VRuydaCdgIKfEU1XOgMeHB2rzh3ICrIaJN6iqp1ADL iGCvVbJ6L7fTXgIXGeCRXDZqBfX46fKEbnVq28EZfuQHOsTuXiYAf6Sr2BAlEgY7mzFDTsZnV1UOLsRz WnHJnoTY4Fj0LkjINnDCm+Zi1QZB8uq2ZsSAnwXiScEU5mol0FIGtTYtOrH2UnqiL2XSGgTJXdIn6VQA EoAPVwfCCqCmNhPFWGExXcJ4TiyH20NMXKHl1+DQpl byTwKplOZqPyFATok7MeUZt7NH3JOVFiGMz7oXApK1VgKSQPuLEnRNK1GTVtbTgsVQAdA9LsOLbhDt4d SDXhPq7tMP9xGWAgBKXnAuC7HGINJO1WXBLzXRCduQYoCLOkPFZMFQ3LJXlpGAQ3NxirkaCbsABhYZwe XL5UBCHrftQoMhTmGWTTBQy+Ru3FGG7um8BjXFzbBY LiOZ7jal8VVItFSgYyD7D2mBSzO4T1MKvsQn3FWWVkTBCtMiCpERVRHOlqQD2WHZ5euyO9XT7OfETzZI PpFCSjqEQlZPu3I69yhZQhELhkYI9VTPC+Anais+Up6KFZRyKTPjPBAeKhTmGBMJCiXoE0PhW3FNf1JuA4 TxFQ58wVtvreNvJTpoRN9QCM9hQBVyZDRITF2RaOAw dW5mfzXuRwNuCWJDUpCdA96gdROmSXOjNLNiZGBoSk5LMYRkF9IwsnTfpZrszjVcBFVlVEZITS5TTKop dbNolSDojFprBL61gUlgCF9UMj5MDxOqKH1pmf4SpSQsOe4MVJLgBJ9BPUBxPISmFTQcEJL5OHVdYsTk WPjrHKRxEPRcTBV9YCObMGViKP6XIoWtLEVeWYi2EF XjROXgTJWkns1NGJHeJHFpUPCsWVNgBFIqUEIuLSkwSWYqYCSeBBM6WPGbKCQaGT9YRwHmGMMsNUR9Zg faNWAxBZAecv7WLQAfDQJuNUZ0CJSpRCQyNOOhWUagOTSmMREnARv0MLSoRYWsZX9ZLtDyJCCgXBVzPT BsAIZwGBJukx4TQBCjFZVxDhG3YSAmKDRhFEKnYWmj HFZlRSHsTUU9FVTcEQQuDO0ZTtWsCFDvBTE8FVWrEUAjRULaok1WTUXfHBMeWfzcVbAoVNFpKGOmXIqt WYVhZLL1AAokGVBnITFmFO9HTgUjHILjJZE3XQcgMHBmBVFyts1GXEAiNPJvBwP5IiObEUSdMZMmRXjp LUCvMGS3ICP3UMCnLNQwWH3ZExGsCKVeIGlpNBKzJL YjGDGkff9UZOPwFYWoSSRtVYDcYWCjZCBgPGbtXURjHSG1CoPuHXNiJTDqJD6MHtQoPTLoHFzeMQWwHY LoXDIudc9HFBKjLCOyVXj4CJSlUHGkGFPiRCihHRMdKTVvUmY3YUJqEMHvZX6EGbWkMYGmWjXxRMxfKY YvUHBdwe7LBHOiWMQwKZN5BOFmODZvNXUgDHz5saOi kSMiPPe4JE8IP7MhacNyMxATUv0Kk418NNG8NRNbVb6LD8qsJo4eBRWiMEQWWi3DZEk9JTUpMkQ6AMUt S0HbSYKcOIKsMDY5NJx3MXDmDeG5DQV+VQw9JsNlCAw6JTC7GkJoBCOqDNK6MGxdUWi3SPCbWKXbWO9g XSANCj4+SDwyzKLpqQjkRKSJOeMyTka5LNlaZPWNQm8T ID Date Data Source [id number] 09/04/2020 07:54:00 PM EST [facility] Name Value Range Interpretation Code Description Data Fabiola rce(s) Supporting Document(s) Glucose, Fingerstick 277 mg/dl 70-110 Above high normal [facility] The above 1 analytes were performed by [facility] [address],[facility]#: [id number],[place] [address] ID Date Data Source [id number] 09/04/2020 06:17:48 PM EST [facility] Name Value Range Interpretation Code Description Data Fabiola rce(s) Supporting Document(s) Nursing Note [facility] PCAAFy9nDqYQSiAg73/TAUddUCDal9BpSHryNMa5RCjhHNNdL7WpKEL3aK5zMYO0MPyORvIrHjYyOzM7 [facility] [file] ICAgICAgICAgICAgICAgICAgICAgICAgICAgICAgICAgICAgICAgICAgICAgICAgICAgICAgDQogICAg ICAgICAgICAgICAgICAgICAgICAgICAgICAgICAgIC AgICAgICAgICAgICAgICAgICAgICAgICAgICAgICAgICAgICAgICAgICAgICAgICAgICAgICAgICAgIC AgICAgDQogICAgICAgICAgICAgICAgICAgICAgICAgICAgICAgICAgICAgICAgICAgICAgICAgICAgIC AgICAgICAgICAgICAgICAgICAgICAgICAgICAgICAg ICAgICAgICAgICAgICAgDQogICAgICAgICAgICAgICAgICAgICAgICAgICAgICAgICAgICAgICAgICAg ICAgICAgICAgICAgICAgICAgICAgICAgICAgICAgICAgICAgICAgICAgICAgICAgICAgICAgICAgDQog ICAgICAgICAgICAgICAgICAgICAgICAgICAgICAgIC AgICAgICAgICAgICAgICAgICAgICAgICAgICAgICAgICAgICAgICAgICAgICAgICAgICAgICAgICAgIC AgICAgICAgDQogICAgICAgICAgICAgICAgICAgICAgICAgICAgICAgICAgICAgICAgICAgICAgICAgIC AgICAgICAgICAgICAgICAgICAgICAgICAgICAgICAg ICAgICAgICAgICAgICAgICAgDQogICAgICAgICAgICAgICAgICAgICAgICAgICAgICAgICAgICAgICAg ICAgICAgICAgICAgICAgICAgICAgICAgICAgICAgICAgICAgICAgICAgICAgICAgICAgICAgICAgICAg DQogICAgICAgICAgICAgICAgICAgICAgICAgICAgIC AgICAgICAgICAgICAgICAgICAgICAgICAgICAgICAgICAgICAgICAgICAgICAgICAgICAgICAgICAgIC AgICAgICAgICAgDQogICAgICAgICAgICAgICAgICAgICAgICAgICAgICAgICAgICAgICAgICAgICAgIC AgICAgICAgICAgICAgICAgICAgICAgICAgICAgICAg ICAgICAgICAgICAgICAgICAgICAgDQogICAgICAgICAgICAgICAgICAgICAgICAgICAgICAgICAgICAg ICAgICAgICAgICAgICAgICAgICAgICAgICAgICAgICAgICAgICAgICAgICAgICAgICAgICAgICAgICAg NOVtMIt4D5oyEGObDKOlFT8pLSe0Cu5+DQoNCmVuZH A0nxCflR9BMZ6tw1RiPNnuWEOrt3TqDZd6SE5AVWWgPEzjOT2UBRbcjt4YLMMjTQFbkREWe9nzEsPnEK D0HMAfAatmCW0FKEPeQ6abceGhOVScIBLDYX1MSgWpE5RolY29JELYLs3+DQplbmRvYmoNCjIyIDAgb2 ObSXr6DX9GNNPcNjrbh8DpWwPsAVWKCApaAS8YAHS9 XRZwAZVnBa7YVOPxR223osBgIZ0ZTv5NUaUzIU7mum1YJoEkOKZxWcwXLgt1BImbAX0NyZGdTYsLxXOb dF8rTA1mqAXzGhkwVz9fqKCtMU9hu4kkECNNFPX8CITuSM2jGWHwPPO3DlN6TNFEEW9IHKUfRWZpmXOp YVXsSSFGKP3IWYsfIGG7OwzbpfVlhXOiOHnmLB7IKH JlbnQgMjIgMCBSDQo+Be8AXW9ar2HsVYxmNUGrZV9lfp8DFSnPDxBlZ7R1qJKfS5S0RShgXg6TTZIbFO GbUxVgRRAKOBudOE4LYK8glbZ6ER1FpFEcTEPrEEYlvSSvTTj1Q17ikIWoMNdmNB0OXQZ+Anais+Pg0KIC MlSPVgRIBeBySwHJSEZkKuT2VkL4UVk1DnY3SwDJ26 vHparoDiGRdxSR4SDN3yANMoOBVTLQ4ZgCRowM9mcdMdLhFpKZTTFjDgE47rhKEeYMFhIIEkPKTpRr9F GPHaX7TvmxMuvUqzodPwOSKqBQZEWS2SJOsdcyRnyFIqoNebWJ21eHozLU0AWp4DIpEoEW7wqo6MbJVl Of3BIOPgMR5TKBZeOAHaULOvSKQ8TCDkDpIlOFhjEB VmKPRcFQW1WTIdSDPwMM0FGyKeSJJeDGv4WwXjKARiAPOpsl3NJMJfUTJrUDW0WJRtTYDwSTRmGYnoRJ WeTBDdBRV0KDFdBPRcGI5WQjUlSYAnRET7XkDaAAQsEZCutp0DCQDwIVQsRNV8HyTaEGOwAIWgWReoTF VqLYKmPOG8TPOjYZKjWV4HYxRdAJLgMPFgGvZjGTFd LWCbph8SULCzDFIyYkYkNAGrHGDzUOZtYQmwVOAcHTEnFVmbPZVsFRJgBU8KFyLlVKVmTZI3OqinZLXv OBRcuz5DOJRmBAVtZhj7VSDgUFJqWRGiXZoyQDTeSPI8AYj7XSVyTBKjVW1ZOoGwPCKfRCK3ZEEvZFXl SZAovv1AGENhNYRmZanxWiJvJHIsQOEpDAoqCDHhDK U6YNLhXFQcEIZxNN7CFxRfHGAvUUkhMJqaHSMiJHJqhc2EIGYdWCEmOWO4PCVxRMNrNVBwRPhlUETaQQ I4QpK8MRXpQNCnZB9AEvGwJMFjKCj0MIuzBVLdSYNpte8ZFIOtLYXbLOnkNWUtJOMiHNHoDVpkUCKhUP PePmYcZILrARQnEQ3RIlGfHKFtGyGbBnZnEKDvFWYs uz6VPVYrSFZiQWY6JdSuAKYmKKPwUCy7aiEkqPDxJXf5XE5MO5ZdsnKoHvNGLf3Ir857LNE0IXSmVt4Z X9eiQa7bUJSrUROVFo0GMYd7DugxCzO8DqM9GYYoPgEzVOPhWrOwPvRkHMQ6AES3WFQ+IDxjOWMyZTcy UuG0SQDsFtG4BMD9PSIlZqE9ZbdwZcn7QD0jCHSTQm5+NFoqzMIsaGixIZABOeGsMfWzHFopTEXNYq4Q ID Date Data Source [id number] 09/04/2020 04:52:00 PM EST [facility] Name Value Range Interpretation Code Description Data Fabiola rce(s) Supporting Document(s) Glucose, Fingerstick 133 mg/dl 70-110 Above high normal [facility] The above 1 analytes were performed by [id number]#: [id number],[place] [address] ID Date Data Source [id number] 09/04/2020 03:10:10 PM EST [facility] Name Value Range Interpretation Code Description Data Fabiola rce(s) Supporting Document(s) Care Plan [facility] MGHCXp9oSkVJEsUe79/PRYhaYONxp5ZbECrwFKp3TXhfUEDhO1WhAJQ2qL1uNZO3QKaBJyPeRsImVhP8 lbm [file] E+DQogICAgICAgICAgICAgICAgICAgICAgICAgICAgICAgICAgICAgICAgICAgICAgICAgICAgICAgIC AgICAgICAgICAgICAgICAgICAgICAgICAgICAgICAgICAgICAgICAgICAgDQogICAgICAgICAgICAgIC AgICAgICAgICAgICAgICAgICAgICAgICAgICAgICAg ICAgICAgICAgICAgICAgICAgICAgICAgICAgICAgICAgICAgICAgICAgICAgICAgICAgICAgDQogICAg ICAgICAgICAgICAgICAgICAgICAgICAgICAgICAgICAgICAgICAgICAgICAgICAgICAgICAgICAgICAg ICAgICAgICAgICAgICAgICAgICAgICAgICAgICAgIC AgICAgDQogICAgICAgICAgICAgICAgICAgICAgICAgICAgICAgICAgICAgICAgICAgICAgICAgICAgIC AgICAgICAgICAgICAgICAgICAgICAgICAgICAgICAgICAgICAgICAgICAgICAgDQogICAgICAgICAgIC AgICAgICAgICAgICAgICAgICAgICAgICAgICAgICAg ICAgICAgICAgICAgICAgICAgICAgICAgICAgICAgICAgICAgICAgICAgICAgICAgICAgICAgICAgDQog ICAgICAgICAgICAgICAgICAgICAgICAgICAgICAgICAgICAgICAgICAgICAgICAgICAgICAgICAgICAg ICAgICAgICAgICAgICAgICAgICAgICAgICAgICAgIC AgICAgICAgDQogICAgICAgICAgICAgICAgICAgICAgICAgICAgICAgICAgICAgICAgICAgICAgICAgIC AgICAgICAgICAgICAgICAgICAgICAgICAgICAgICAgICAgICAgICAgICAgICAgICAgDQogICAgICAgIC AgICAgICAgICAgICAgICAgICAgICAgICAgICAgICAg ICAgICAgICAgICAgICAgICAgICAgICAgICAgICAgICAgICAgICAgICAgICAgICAgICAgICAgICAgICAg DQogICAgICAgICAgICAgICAgICAgICAgICAgICAgICAgICAgICAgICAgICAgICAgICAgICAgICAgICAg ICAgICAgICAgICAgICAgICAgICAgICAgICAgICAgIC AgICAgICAgICAgDQogICAgICAgICAgICAgICAgICAgICAgICAgICAgICAgICAgICAgICAgICAgICAgIC HnFXFyPYRvXZLfGUVbQLYkNCMbJVCvQWBoHKXaVXDhYGBgWKVgKEGsPMYnDPSkPLBxWCEnEMb5Z6ssRX PcAHGoBF2eKEu9Lo7+CCvEWpTqTND0gdGqpQ9BVY8t f3PyKSieACWxd9PdSRh9QZ5XHZNoFGkxDD9AVEfxum2XRDUqENWqjXOHl0wnHnOuQKY9RNXfHaxvCR4L YAFfK8jjluTtQWQdRWOTLM4YQtIvT6NjnL81JWWMTy6+ISxzvpBnVcyALwUxPMOwx9MiUTt5YF1ZHVGv Muohn9OkLzTuKNIOFUcjCH5XEWJ8LLJtGERgUq6RVB YpB444jqMnQQ3LBa2IWyVvNX0hhv9ZUqGrAFJyDqaLWaa1CRdnRR6YaLQnMUhNZOEnKXVvQI2jGljkDv 1uiYOtFG8he0pkOHBSULP4HAMxOH6gTBZlRESrOjL3IFLXBM5DCKGoVQSrpMGzKLJiFULATD0BHErlCJ O1KiynpbNkxPEqHLygBP5PJJMehyVyZhRkNBTYZBf+ Yn5GIF2ur0FuGGqdLKJsBG4tvt9XZHuRCsJnX8W4bNGqV0Y2DFgoJg2VRTAbKWPgAaUrOHFYUZrqOQ6N QB2fnoZ8UH7QkLNcVBMeQQVriGYpLDs0U86mtPPxICfsIE8AQWF+Anais+Kh6WYBBhXXQxGYEqDzImQMYO MzHmI6ZzY7UUn2FcG9PtLJ58nUzizjLbORlyAR3BTU 1wAJZjSPBREI2VzIArpK7iuhKdHhRdYPYZErHgO52akGPsMBVnFNMjQPAuLm7FGJKjT5BwjaQxwImpfm TaMPNlUTNRGL0BWEdykpFraFNgsUhrYZ91uWhaVQ2PHg4DOoKxGF7tdx0IpMNrCs8TDKQcEB6JTCOoZN UlOZKnWJG6SQSkXgCtZTbmVHBfMDGvJMV6JYBzSAVo SO2HZyNuBCHnFMqcYbwaAZFoAOCtdm1SGKObRXGjCAwhTsRwSFDbWUArPOioIULrYDOeEIX4OAGmIWVh FJ0IEaTmMQQxXIU0RQJcBQKuDLMbmb0XALGmIWDtVKbrVIRzMOZjLDGfJWdrQXDsQYBgYIumHVEeDVQq HQ7HMhLmXTWnKBThPtDzSQUwCQUfdk1AHNFlBVZeGz J1SOWvGFQsKZJtEXxhRDCnBKR0NnS7ICRuNFZqVM2BRsHdADPwPCY6MPNkCFBkEIUdln2XCQXyFIZjWJ B5LlPnTKAcQPZpJHelJOIgSBO0GZU5LGRmXBPaTF9ZYeQwUWWoSYtwPuPmDWMzQKSdec8DIESfIIBsXm E2NZQiYCBlDLJbJShgYSDdODM0JsJaMHJhMFWmWD2X FfCbJITwTZn7MCOkWZEcNWWgij4OMSIbBVXhWEm5YJMcHFMjPZGvNRfqJLWyFYN7AKqdQZAjWPAiRA1G BvLuQJCwRQwuNFJeHNJbXWYhzv6ODCCrCFFdAAQ1YzVaQDUoDUKpGWeuIXYtISQlVUEdTZCwBEXyTN6Y LsVlDBMxAfKrAESvEXRyFHUklo2DBRClTSKwHQFaSK ZpXWKjDMLcBXp0ikLoiCEsWLp6JU3RS2NcbhFuVaAUWm9Fe391SNE0APUnWe3MK1cpSg6iFAHgBMJIVb 9JFAj9TVInDQXvSHP4C4I4QYHiDwehWPB0IPWyZfSgReP1UBC+JIl3LNO3EMT5JGi8JdhkCVTyUGIpJv R5BrBtLYYyDUc5Rf3wHNJIWb1+AWynpHTlqFncCFUDOqLiXML2FKyxCQMQPd1J ID Date Data Source [id number] 09/04/2020 01:19:12 PM EST [facility] Name Value Range Interpretation Code Description Data Fabiola rce(s) Supporting Document(s) Progress Notes [facility] BSPPHu0mOfPTMcNx89/IRYslAYYob5SnPGamEWt5PStcYRXpS1UdWGO2vT4yZMS9KDaDCzEgMtQpEvZ1 lbm ItVnjACdHuNSZcCjeVLdTxDXykNtahbXYfXA3GsDS0DASaU02oXUGnQFRtJ9DdZOF3NCO+Vo1MRZDbtT EpCG8GWmlN3Drpl6k34FnW/pwkuVFAbii2nUolfuZHb9cmUTnRxzu27JYHhtqf7m2PA4nFfO7Et6TIuG fuypXp6zD1t6SRI/HV4Pc8JexSJGxT7+9ncqBSSilx /9d/KsPJ+Zz8/ldhcoo8udn4I8nEYaMYK5G6RZ0J5K8BN8AkruZNnFn7WZaEvKjnKuQhUq90GLWiyWrG +CRfAK8n3TMIEt6M9L5dHt0gzOL0Ly2l4XXHE4qlBGb57tL6Zl+qNMXuIwfJPsc6Od8rWu1j8SVEmF3B ZCKGaFQLGRPOctU9kHuTJKIvHEVGIVOZiLqNAshzYL [file] WgTNJ5iAAqQabJGHnsJo7cS5NHscrloUfaE7Je9/R[facility] Elena [file] AgICAgICAgICAgICAgICAgICAgICAgICAgICAgICAgICAgICAgICAgICAgICAgICAgICAgICAgICAgIC LqZJRpPHYhBPYoNR6VDIXkVTEsUVWtPIGhZFMtVQOtSTRzSONxQDGhKAKvBSVvPJEdHOAuHWAqWUVcET AgICAgICAgICAgICAgICAgICAgICAgICAgICAgICAg VDDkIFDnFFLvVSJyTOOySMLxNETnUG2VJDNxKAMhTSZtFNCgJMZtYRMeFHHzOOPaISTyROUnJVErNVGv ICAgICAgICAgICAgICAgICAgICAgICAgICAgICAgICAgICAgICAgICAgICAgICAgICAgICAgICAgICAg TZXxPG6DFBOoWOSrOGJwOKCcFBChKBWmPFWlWDHiRK AgICAgICAgICAgICAgICAgICAgICAgICAgICAgICAgICAgICAgICAgICAgICAgICAgICAgICAgICAgIC AsXDPaRRLdCXWkYCKjQN0EKYNfALMmGIKpVUIhVQZnSXZoBPMbDKAaHNAxGJBpGFZrWFQgSBItESPhUO AgICAgICAgICAgICAgICAgICAgICAgICAgICAgICAg YVQrPSRqDSZhQTGiLNAmEUOoPZXoLQIqIE4GQDQkJVHkJKYtKWDtOQGxTRXqVDGeLXEmTEFpGTSdLTSl ICAgICAgICAgICAgICAgICAgICAgICAgICAgICAgICAgICAgICAgICAgICAgICAgICAgICAgICAgICAg WYOsPMRyJJ8QTXUzODUzMTLiEEPyZUVwMWTmEKOuXI AgICAgICAgICAgICAgICAgICAgICAgICAgICAgICAgICAgICAgICAgICAgICAgICAgICAgICAgICAgIC QeAXOiJXMtXLLpVWPkKKWvRC6QXPIpOORmPGFhTOQsXGGpTBLhNSLlRFUeZGKwZBUiPPQoYGSaKYIjFM AgICAgICAgICAgICAgICAgICAgICAgICAgICAgICAg BWDtJKZhDOOxRMGvDMYgCVBlAOLlXKQaSJTaQB2JZOUrQUFkHMUzGNCuFGTgOELnYPZwJRPxDFJhCQWo ICAgICAgICAgICAgICAgICAgICAgICAgICAgICAgICAgICAgICAgICAgICAgICAgICAgICAgICAgICAg JPVrOVCtQVSiNT4QBBImSMUbDVJuDPUfZFNlUXSpAG AgICAgICAgICAgICAgICAgICAgICAgICAgICAgICAgICAgICAgICAgICAgICAgICAgICAgICAgICAgIC NsLSUcDXJiNNLtDHNgKGScHAPkEP3BSE20mKFgc0O4EDWvEN0bcgz/Is2NUHbhowWgqTShWC3CGeFtHQ 2mmf2WXdCdFN4jbz8HKPgQGeHuJ0J7fEPjTCUwVTZE LeUoW16bAMtxVz39RKjrGBGyOlWcXRf5Vo0GOrXpY8esMJQaDjY4NAPzLpC3EFWnJpN8BWOqQmEoCLQf NMMcJR6LFLMbX142tjJqKE4OAj4UKdSnBC4nge2URXdrYSClRkqRMjm4EAieBC0XpLDerGT6OODmVLSZ RuIuS2tbx1BdBRktJMGQIYczKS4Bt2UcyZKbQWe+Pg 8DAJ1xc2XmPDg3WCKiHY4xsb7WFViLNaNoN7NsvTsfAYNck4mkNXPvLY1grIFxWGB3EEoeQFMgGMYpE3 5etTwznfrmSiMwJLYsPg09VcRnPbXoTMK5TXtxJK7iPImvCF7JHUB7PBaxRVBoRLRvO4qCTaBkIOudZH UqnXjtCW3GJtDiB4GnxfWskRL7MyQaHYXXDf6+DQpl waTuGaiNXlO6EDLfs8MnMPu2FN0CUDRbHOsnJN7MMLYsxO4yTQxsXX8WSwM9NISrQZLCCgMkW56dcWMy FXt1Y0BqNtYuXHDuRuirAZKpVZidYhRrRGHqOvSjAFmsLK2+ID4+GDvqKG5QHDwdvbRiIQFaUl3KEHSc VYTsHP9yNNTeQYUwJ5W6qNorYLKAUgKeT8jsumclGN 0vXBZmO935iRsvbwHnAOC6FZKtRv8XZYAhCFY0AOYjuWXeNKMoPTULEDsuSI9GbLAgSDB9yM8yKEzcJV KfDWTeR6fTLlMjaUnoKZ60vYstraTuaNFoEBf+Ow5XCR6cq6YlMUk0twDdZMkuPXAkUXwaSFLmHIGzZY QcKNX8PWM9FHVNOeEePAMvEQThTZywTREhSDNpzn6O NHRfYJF2HRm6CMHyDIXtMXSqAJhxUXQcKKSuYzj3COLiABJcBI6IBvWbIKUnCXNlPRnaLILyILNlaq1Q KJRbUPCmBsX3CqDiQQRoWGUdTIbpZSRaEBWzUkQ8TEQtZWHzLW7XBuJpLQBuOWEjWBGlMUCjVBZqou7J ABAvBDVkUJE0QlYkVVWfKDUsFLfnYFNjAQF5JZIcPF GuXOYxSK3RBtMxEMFdDSrgFvpuGPLbMRFdqe4ONIItOGGmFHD3ZTKkZTGmETMlOPngXMExJJX0MtU4SD XrZNCaXE2VHfCbUFKcRMG6PqWtUQDeGOMrnd3UXBUwIOUkOUxfVWHdZNDuPDErAKkyJKVnTVUpOJE7RX NlMPLkUR4QSxXgSDWiDSA5UjBpXBKzWWDljv8TIZPz KWHqVaH6VsVmGSEqWRKpIMjhTAOhOOYhSlI4TOMsESYyFO0NSvSqWQZzPgJ4ATXjFPOaOIFtyi3QJLYi NTIbAHFhTOTyHUVtUPFsHWasDPPfWBL5QqDoOVGkFZKwTP1SCvLzUCLrBfO2EfGuGLBbQHIlfj9KWUSb WALrAMFfGiXaOMDxZJZbFQitRDVeKGY0XZT3OEXqVL PjUJ5LJuDdWCBgYvU2TFLuRTVxSRClhx8MSXQuNGRoGalfVEQpHCRyJDEzAShjLGStQQJ7TNdkDKPoGM JjBC0ZIoHcZPTqHzwtEAMuEUOgUGNhim9YXZOhBNVjWVKjLYBqAAYmORBaUAutIMMrNQA9NTcpZKHtLA NaTN5ISnGwTHYnPzgeXUUjZSStBLJfew7HPMZtGFUo JTHdENPzCOXbKRWrCVzfGCKkTXIvKIN6ELKzZRQdBE4BKsYfSOJdYWDgEpavAWMpUUVarz1ZLLHdUBR9 IcW0VrBuSRNoFGPnAEnmTYYjRDRyQdGrJUNzSQNrKS6GZsJaCQFwIJU7RjUaKZNcCCKxdf8VSOUkMMF8 BDRrWoUaBXUkVALqSWviOLIsEGD5HQU3DGHnMYWpRE 9TAoSeBWYfVIvdOMfrXFHwJYTktw9JUZZaDYP2JUV3YxOrOVJsYIWxIImyOFSpIEO9KPM5MWKsBJTgIK 6JIdLbQDZqIEN1QBEjUBUtKWBbiu0PXJUcMTI9OZZ4ESLnWFQiCPWhUYgxBNHpBRVlDTF3RMFpTWDyJN 1PMdKoSKJlRUDtVZCxWSQpGODnxv7SCVFiJWQ7Lbdp NkMxNVQjLBEoRUjmEFLqLLOzVPxqBNXkCWWmDG2KFtWxTGFhNSQjFkEmWFFsCFIpvj1XnCOpuOhygh6D IWdOFp4PlXvjAZFjLUawKq9cgGX0COXkRGCZNd1FzuZwAWWsDXEIPGzoVTJsVDYpVTMxQLM1LBi0K6Yv V5VqJNlxWVPhHPX7VEAfWGUoDaY8JPIuZQMyHKD5IZ DwBPSoJTX7UBF8PDLlRJKoEiI0WoB+WS4sVPp+Wy9Ju7YlfhQ4hmTcJOm2PgD0Qh1SOUTOT4ERUw== ID Date Data Source [id number] 09/04/2020 11:39:00 AM EST [facility] Name Value Range Interpretation Code Description Data Fabiola rce(s) Supporting Document(s) Glucose, Fingerstick 267 mg/dl 70-110 Above high normal [facility] The above 1 analytes were performed by [facility] [id number] [place] [address],[facility]#: [id number],[place] [id number] ID Date Data Source [id number] 09/04/2020 10:50:44 AM EST [facility] Name Value Range Interpretation Code Description Data Fabiola rce(s) Supporting Document(s) Progress Notes [facility] SRJLPv7oNyJIAzGx31/BHIwbIHOmi3QdLHwpZCp3SOspJFCsR5PtCAQ4sJ2uLRM5FMwPYiOiUaDaNpL4 lbm [file] AgICAgICAgICAgICAgICAgICAgICAgICAgICAgICAgICAgICAgICAgICAgICAgICAgICANCiAgICAgIC AgICAgICAgICAgICAgICAgICAgICAgICAgICAgICAg ICAgICAgICAgICAgICAgICAgICAgICAgICAgICAgICAgICAgICAgICAgICAgICAgICAgICAgICAgICAg ICANCiAgICAgICAgICAgICAgICAgICAgICAgICAgICAgICAgICAgICAgICAgICAgICAgICAgICAgICAg ICAgICAgICAgICAgICAgICAgICAgICAgICAgICAgIC AgICAgICAgICAgICANCiAgICAgICAgICAgICAgICAgICAgICAgICAgICAgICAgICAgICAgICAgICAgIC AgICAgICAgICAgICAgICAgICAgICAgICAgICAgICAgICAgICAgICAgICAgICAgICAgICAgICANCiAgIC AgICAgICAgICAgICAgICAgICAgICAgICAgICAgICAg ICAgICAgICAgICAgICAgICAgICAgICAgICAgICAgICAgICAgICAgICAgICAgICAgICAgICAgICAgICAg ICAgICANCiAgICAgICAgICAgICAgICAgICAgICAgICAgICAgICAgICAgICAgICAgICAgICAgICAgICAg ICAgICAgICAgICAgICAgICAgICAgICAgICAgICAgIC AgICAgICAgICAgICAgICANCiAgICAgICAgICAgICAgICAgICAgICAgICAgICAgICAgICAgICAgICAgIC AgICAgICAgICAgICAgICAgICAgICAgICAgICAgICAgICAgICAgICAgICAgICAgICAgICAgICAgICANCi AgICAgICAgICAgICAgICAgICAgICAgICAgICAgICAg ICAgICAgICAgICAgICAgICAgICAgICAgICAgICAgICAgICAgICAgICAgICAgICAgICAgICAgICAgICAg ICAgICAgICANCiAgICAgICAgICAgICAgICAgICAgICAgICAgICAgICAgICAgICAgICAgICAgICAgICAg ICAgICAgICAgICAgICAgICAgICAgICAgICAgICAgIC AgICAgICAgICAgICAgICAgICANCiAgICAgICAgICAgICAgICAgICAgICAgICAgICAgICAgICAgICAgIC AgICAgICAgICAgICAgICAgICAgICAgICAgICAgICAgICAgICAgICAgICAgICAgICAgICAgICAgICAgIC ANCjw/wNBnE3ntbUNiniX2W1cjPp7OTn0UVO0ej4Wy QJJtESfrmkYkZoyAZlTmJEHxUviIHyt1XIvlFL9XfBQyE9ByH9GbKCwzVA3UPKBuUEKjiRNzZGWmUIJq WfI7CGZwCLhsDD7DqCWfCEckVLPxVFTjFX6NHXNeD427ivWgZP6FAo4BKrOmQY8efr5XIYzpSKVaEujG Frl8NHldTQ6QdFYtfVXzEBRmNVFWJcHmW9fup7ZnBK axRWXNNNzyTZ9Jj2LcxOZdKNm+Ju4SKU7mp7IaAHseIDBwSK6voj1VICfLUrWtK4ShaNawZBTlr4scAZ RrDU9brWXvRUQ6AXCmeZKvkRACENJ7hO2mRPwhelUtQQ8HQOX6EYPiAM2yZFEtZHDlRoPlCNZFBS6ZEY YsAXAyxOMnZIUtDKUKOU5YJJpuCMP2OmnzzaVomCZu YFwqNQ6CKMVfrlNmPHcdNJYJOPj+Ek0JZO2qv8ZdPThxXMQgIE9krq0LUBuBWpEgL1C9aLPbN6X8FKef Kz7HVURjNTBlKZMzHYQGMLibLO8QYM3kotS8TX3GmVOoOWHdRIUroQFhDBw3P72zdFLaTUjuZX4JNFN+ Anais+Ji3HXMRpKXBfBPQpLhUgLGRTSuXpW3QgX1TTt3 HtF8TvIH96mBsnenNoHUesFP5OIO3aXDMrIMYAXJ6KpNViiI5vmwVsIvRsDHLEKhMcT78heCHoCKRhVP A0JANxKv3TBIUyA5IwltTeeFrdqrZmATHqNWEUAQ6JVRoglpFaoKCbtSywLG94dAeiRW5AUw5SNpYnWJ 5cne8NzDGtAd1KKOGuRF3EJXLrJHQsGALmNES9BYWk CtQwTGxeMOFfROVvHBN3IYJsPODyZT4TUiBrRLXbSIU3IPAuZGHzLAJuxh3FNBUdISPuPiO9OQHnOPNh BONoQHzuTVIhNTNeLIA0LOAvHXRtYC5IHyTaBSKaVRK4BDMxJAGrAKEzfm6SJNThHTYkOFpzQVFaRHBw PVYsGYeeWNZwYXJpWwR7HYXgRRTpPA3UZhBwEENrWE C2URwuYRFwXEHdps6XJHSiWAPxGfP1DUIiHSGnCZYcNXeiWGFsCZG5TBGfSPOlSTCvST7ECpTuJYChCZ WsMFXjPBYwXEGymp8OZIRtHZZrEZP1KgFwNKBtWQHjBHepRGEhHEZ4AUEsWUTwIRZdLU3FNsGgSMZsIF M0WSBnVGHhEIJydz5IFYUxUDLdTScsRpBtRAKjLFWq WPtnMWVjRHW0VhC9ASZqGJOuDP0VMpZaTHPgYKm5OHHyUQMvGJQxbi0TNBUpYDDkWxx7GeDkUIYlPPOn SYggHBSqSSD9JSLqDGPwOPYuXC7YElHmMXmhBNBDQvi8MQhgK0w1ZGFvNB0KD8Gre1OsJAvnNTOCJZck SJ6cuhQmPOJgYi3HH3mXObphNJUdIdVkPWA5GuX0G3 EkPlHwNsOkDGZqUWHcIVY0Lt9mJKG9K5D7EKY3QpQ5Aig4JFLuAEL5WQWiKWYxAeT4NBg8ShEhJC6KDx 7HVvT7FLW1mPApPd9UZVV1OJ6GEDIQC9JQZy== ID Date Data Source [id number] 09/04/2020 07:39:00 AM EST [facility] Name Value Range Interpretation Code Description Data Fabiola rce(s) Supporting Document(s) Glucose, Fingerstick 229 mg/dl 70-110 Above high normal [facility] The above 1 analytes were performed by [facility] [id number] [place] [address],[facility]#: [id number],[place] [address] ID Date Data Source [id number] 09/04/2020 05:15:25 AM EST [facility] Name Value Range Interpretation Code Description Data Fabiola rce(s) Supporting Document(s) Nursing Note [facility] NGMRKx2rHuAXAtHj27/EJPlgFXFwc8OiNMlaRRy6DWctYDTcP1PnWOW0bS0cCHQ3WCaTAaNoXqOsGpJ3 lbm [file] ICAgICAgICAgICAgICAgICAgICAgICAgICAgICAgICAgICAgICAgICAgICAgICAgICAgICAgICAgICAg ICANCiAgICAgICAgICAgICAgICAgICAgICAgICAgIC AgICAgICAgICAgICAgICAgICAgICAgICAgICAgICAgICAgICAgICAgICAgICAgICAgICAgICAgICAgIC AgICAgICAgICAgICANCiAgICAgICAgICAgICAgICAgICAgICAgICAgICAgICAgICAgICAgICAgICAgIC AgICAgICAgICAgICAgICAgICAgICAgICAgICAgICAg ICAgICAgICAgICAgICAgICAgICAgICANCiAgICAgICAgICAgICAgICAgICAgICAgICAgICAgICAgICAg ICAgICAgICAgICAgICAgICAgICAgICAgICAgICAgICAgICAgICAgICAgICAgICAgICAgICAgICAgICAg ICAgICANCiAgICAgICAgICAgICAgICAgICAgICAgIC AgICAgICAgICAgICAgICAgICAgICAgICAgICAgICAgICAgICAgICAgICAgICAgICAgICAgICAgICAgIC AgICAgICAgICAgICAgICANCiAgICAgICAgICAgICAgICAgICAgICAgICAgICAgICAgICAgICAgICAgIC AgICAgICAgICAgICAgICAgICAgICAgICAgICAgICAg ICAgICAgICAgICAgICAgICAgICAgICAgICANCiAgICAgICAgICAgICAgICAgICAgICAgICAgICAgICAg ICAgICAgICAgICAgICAgICAgICAgICAgICAgICAgICAgICAgICAgICAgICAgICAgICAgICAgICAgICAg ICAgICAgICANCiAgICAgICAgICAgICAgICAgICAgIC AgICAgICAgICAgICAgICAgICAgICAgICAgICAgICAgICAgICAgICAgICAgICAgICAgICAgICAgICAgIC AgICAgICAgICAgICAgICAgICANCiAgICAgICAgICAgICAgICAgICAgICAgICAgICAgICAgICAgICAgIC AgICAgICAgICAgICAgICAgICAgICAgICAgICAgICAg ICAgICAgICAgICAgICAgICAgICAgICAgICAgICANCiAgICAgICAgICAgICAgICAgICAgICAgICAgICAg ICAgICAgICAgICAgICAgICAgICAgICAgICAgICAgICAgICAgICAgICAgICAgICAgICAgICAgICAgICAg ICAgICAgICAgICANCjw/kIBfB7nckLUdzwM7T9stYv 0FMg0AOC1zm5BtSZQdMFngjvLaArtFObAnTSUsCrwMMom4MAraUI9WkGKqP1RzU4HcRMdsXI1VBCDmPK CdcWKlEXQdBECoWtM5YCIqWSlwGD9NaVZwQXtuFQRtLWHmPU5PJYNhK567dyZgZR5KBz8EIsJgYZ2urn 0BUmKaRTIaJhwSOpy9BKysDC2NuCYvqLEySfUgCRAH XiTrF4rnp7FrFiDlLNWLKCroKA8Ob5DnyLFzHUm+Og6ARB6ic7GxCUkcKnTlEP9fka9VNNtVFkVoP0Gv zXjcVV55ikAoiivdLr51MFMtuXLNGBYyyXIgN1JxpFu6GFJAGyAbwOXdJwviNuMvJSCkIKyeRMHNUMdW JcCiS0Cwt6XeXtJ2LEFgZoYjMQlqGMQvRpY7TX89fR utQB1ZZHZbPAZdXS60URUnQOXgDa6KKa0ZJvRsUV6cbp5HPdEyKZJnCgfCCvy0FNytAM6SoMQqS6BwpG Psg5cWUwFpW6IAMQImZULlVh4PFHSsIkRfGQDfMWnjXD5qGMXfBPTFpXnbknW8LX6WGN0wnrLhLI2EUj JdOw2fMz4FQqOhR9DyN1EuQNQvMATCRRnqHB5QJNgc WE4iOV2On0SWfHGdvF0fbr1CTUAiEBQvPiqgam9KEfniY7T2iVuuCOJbAaQiULPFYMcjLY5PYOZnYZJ1 POZmIBHtSOCVPkLnU29sFU8WM7Swd92bEuT7JLZrAlWbONioTM72nMlhnuDwnXXsxGqxZP5BCa2+DQpl bmRvYmoNCnhyZWYNCjAgMjUNCjAwMDAwMDAwMDAgNj Q0VhSePx0SIZGuLSEzDTDfUaOePVSqEPQlRMouKEVjAJM5JVD5CLInZLKdIF0WLwDbUFUfPlCiRhOjJE ByTJExow4GYABhUVDtHZT0JfZaSVArDWXzITpbZPUrOPHnSEjpJMNgNDUjJY9JThHuNDXaNKQpQnGdIL GyLXMjcn9FIRUvCMHgMzItLiYeAFDkUWEkBGmkKPQr JHJzPwI8UILgPEFlYY1MXlUfCASrYMW7SKxbOQWmMXFvtq2BJNWiRKIaKhO9BKJvHSZfKFRdATkmNKOj BQFcLos5RRDtZHMrIV9ZHsXnHRVnXTR7NQmkRATnOGTemy2AKJAbGGJwQcGkQvDqXJAsTONyVMenYUTm VNC4QSMgXRAzJHTpUS0RNvCtLPNnMSH5QnCaYUHuTJ Guns6VMDErGECfHev7ZMUbSPBhDISiFKibLTOpLKW7DFC9GWRcRFIiGE1PVbVyEJHyLQaaZDgvKLGfZM Spom0RHEFzJHPyFRS4EACdRXGwPCAgNTudMIPrVTQ6SOG2OKJoBGNzFP5YOjCtVIRyNAa5JtXwADSvOQ Jeiu8BATRjJFAuCDM7NWKdNSCdUYAtMYuuDRYgGHLf ToDbTRXiOJDyWF4WWgBuSBYwMuS9WKuzAAYgMDGbnd1TtZCagKnrxe6ZLNjAAq6XnBohHLL2MItyKe2u kTJdUYSpZJHKRe2ZsiXwVYJvRMFGMCseHVWlPBZ3PilmGhC8IJCeI7VfH1R2OGFrYIKuX2Y8H0C6VGX8 RtP7YxyiE6I0AgV2T9V9ZeR1DDGuJtCuJEP8WmhiKM dlZTU+AV4kBUf+Th5Rc7CzzzD6myZwPHanPSnfUZ8SCPYYJ2RAGp== ID Date Data Source [id number] 09/03/2020 09:05:23 PM EST [facility] Name Value Range Interpretation Code Description Data Fabiola rce(s) Supporting Document(s) Care Plan [facility] FCZTJl9tPcBIRgHf84/LFNqbHARbx9DeROodUYd3VTmaLJLsJ2CzHDS7uA1dAOC4EHhZZiBoHgXpKhH9 lbm [file] AgICAgICAgICAgICAgICAgICAgICAgICAgICAgICAg IPLkJAYbJRQqJK5XSNDjBNTpIGDuDKNgQDQvULRwELWxPTXfMFPqUJZrFNOsTIOuXCTwRWUyKUFcNGFg QWXeOKAzTXCiAOWmBCNyAXBvUQHmOEUtJBRnMZGmWVKhXCTcYHBtXGMmHXGtJFWdDUJmPV4JLKShMNQn ICAgICAgICAgICAgICAgICAgICAgICAgICAgICAgIC AgICAgICAgICAgICAgICAgICAgICAgICAgICAgICAgICAgICAgICAgICAgICAgICAgICAgICAgICAgIC TwCN2TTZQyTMJgDWGfAHFrNIMoQOSlDSJrVOSaZTRlLIYeXEQcGKDvEXKmSBUxYWYqWESrQRCmIHPdKB AgICAgICAgICAgICAgICAgICAgICAgICAgICAgICAg REWsKVVqIZGmAQQkET2XVDYxLRXgGVZdGUOnYSIvKIMwNIYfDXQqIUKsRRAaHRSaZXVvXBKnPCCfSCMj ESOwEVJfWXYyLUYpQCGbLNYfHBOdWJYtCITxLGQzRUAmRUKrSKIzWVQzSYMnDJYcKCDyWTAkNK6ESQSw ICAgICAgICAgICAgICAgICAgICAgICAgICAgICAgIC AgICAgICAgICAgICAgICAgICAgICAgICAgICAgICAgICAgICAgICAgICAgICAgICAgICAgICAgICAgIC EpXASdQH9NNLNjPPHuPYRhOIKvSMAcPVAsYRCjYLDiMTNkQXViZFCrUMCzOWJuKLInDHTgGCNmNLRrEA AgICAgICAgICAgICAgICAgICAgICAgICAgICAgICAg QEJxGNZhFXMbDGBeRIDvOE7VTTCtBBIeAXZuEVCtEKQiUTRdOHMwODMqCABhHSBuANKkKGFoJNTlNQBd GPLbNYWcNAAeGGFtLQInPCShTWIbFKOaUXVuCELxKDEqUGIpBSIxQUMyABQqULQiXIXcKDVnEMKoFF6D ICAgICAgICAgICAgICAgICAgICAgICAgICAgICAgIC AgICAgICAgICAgICAgICAgICAgICAgICAgICAgICAgICAgICAgICAgICAgICAgICAgICAgICAgICAgIC EaPZEhHSZbEM6JQTFlLOEhSVIaIZEkMJQzTOPfPEWlUDHuWJEqBYQuDQSgLVUcKXAbRTLoMSLyMVOsEH AgICAgICAgICAgICAgICAgICAgICAgICAgICAgICAg UBOiGMGmFVMuYUYiBTXoFTOnCN6DKJ67mUDwe0K1SXAbPQ9gaeo/Jr7YNIjhxpWjkTJaUT9EAeKrIX0k lm7KOqBdZZ3mkg5PRBiJIuVqW7C0uAErPXGmWGSUKlUlQ93tEVyyCh30TWrxCZOaBtBgEYe1Nn2XRnKh Y9bvZGIvXfN0VKYeKsFgVKiyMT6Mn5HcdJBfHXm+Pg 1USD9aq6NbWNabVaWjDQ3hhl9LGQgCCpVcO9TllhB3ACInJHGpFt8ESZUeFOQpkMVpJqNwUKUGXmHbR5 RbvG28YQMLUo4+OLnzvkZlEqrLXeBsTHGkr6JgXSr2TY6KPNZkDAz4pYGeR9VlEKXAnRQhDMF8XThtk5 qqXJFKO3m5eDixHYWNTTV2LBPiHZ6bVEIvART4OtHv CBCOTP6WBEUfMHAetFUvKHFcQTBNSZ9MBEzkUZY7CulejgEfiXLpEBstKR1OTKCgyoMbKcUmEPNGGYr+ Yh5KGO0vc7HmOJpyXUQtDO7mem7SKTkWYdGnH5Y8tURdE0F3PZmfUt6FCZKoQFPaAmVcGIOWCCcoMO2N BA3inzG3UD1SxHAqKXAeAIDrtOBhISt8S04ndZGeSU qpJK3UFKZ+Anais+Mb6BAKGcAPPtYHNrYyUeWUWPWdRwB7PzY4QDw7EfG8TlAH61tNpfpzLoIJamFR9JHD 6bDWQuFOBNHM1NcEVveQ1pwfErUeOrUJYFUpPxT65wpPTsUYFwTCKpVWOhXm8HYCFpA1RkxtNojWewvy AjTHTdCFVBII8EBEgcsaZtzQYtxAuhHA52yEbrLD7U Nw0RCdXnKG7eqg2SrWYaXh9AQQDxAI1BEZBqGPUcCGFhXPK0PRGxYtPeAFkjKKTtLHTqBSO2COXbAHIw HB2BItIgPOQaIOl0FqKqQINwFIFysv4YGPQnGYLqHJG2MpJpFKIvSQJgPKilHBUhDZQwLJI5TQKqQMFd ZG0YVzYaPBVmFBB1IdDcIOPvJAHknl3PNZHeAFYsQF N6ITWxANIvEGCqHHdlKYRtPJObQvJ2SOIkLJHxKT4JOtSdLMLdSST0QobeYVBmQBShlo4LXUKkZVLcYq QcZvHzNQQkFLNgCSreIDIuTNJjIScrBGZcLMMpAY8TEzWxYEOmZJUbDiwsNEDnSYIsos7FKPBpIBKqXA R2VEDrHCIbYFLbLGsoWNSbINS7QiZiYJWbGUPrZJ1P DvAiCJBnLEhjTTZeVRSoHPHltb5PDUSpUVKnNiIhDNUaTVLrMEEtZFsvKTOuZLP8QQK9NHXoHROvRL4D PvHhHKJdMDi5EGWpGLNlQOJlhe6PPAHiREEqVVU0PzLnPEYkMYYxQTqbZTJdVBZ5WfF6QFArRHQlTK1A BjYwSRVaGCf6XSIkDNKiRUJawr7QRVDaBYRfURCsVh VxRSGpOIRaOKnoVXYrVSVcQxF1ZMZnLZXaSK7XZqBuAINyNjE3KqCcKEKtPVXfys3EEXUfHEWtRXa1CY RzOWEuZMKbHOn8vwIrjTAyAUs6NV2OF4RapoTsYiAPFz1St335MMM2NRCeVn0VI5xqOg1hLPVdRKODXo 2IHMy7MJf0VFJnVuF3VHPyBRVtPvH4UHUwFtH8GxJ9 NmIwOTE+PBguKtA9MPIbJmU2ChQdNRJpZCt7MVZtGRciSME4WsF5ZS5rIFHDXh4+DQpzdGFydHhyZWYN EgEmAhUxRKhgEPSMVk3X ID Date Data Source [id number] 09/03/2020 07:51:00 PM EST [facility] Name Value Range Interpretation Code Description Data Fabiola rce(s) Supporting Document(s) Glucose, Fingerstick 286 mg/dl 70-110 Above high normal [facility] The above 1 analytes were performed by [facility] [id number] [place] [address], ,[place] [address] ID Date Data Source [id number] 09/03/2020 05:09:00 PM [facility] Name Value Range Interpretation Code Description Data Fabiola rce(s) Supporting Document(s) Glucose, Fingerstick 132 mg/dl 70-110 Above high normal [facility] The above 1 analytes were performed by [facility] [id number] [place] [address], ,[place] [address] ID Date Data Source [id number] 09/03/2020 03:00:40 PM [facility] Name Value Range Interpretation Code Description Data Fabiola rce(s) Supporting Document(s) Care Plan [facility] IGAYYw0eCkMYKeCr98/HGUktLFEgn0SlDDsjTYa4PWwmDLUeW6AhTJW1xL7zEVJ6FDpMRmGqFbUyJgK7 m [file] AgICAgICAgICAgICAgICAgICAgICAgICAgICAgICAgICAgICAgICAgICAgICAgICAgICAgICAgICAgDQ ogICAgICAgICAgICAgICAgICAgICAgICAgICAgICAg ICAgICAgICAgICAgICAgICAgICAgICAgICAgICAgICAgICAgICAgICAgICAgICAgICAgICAgICAgICAg ICAgICAgICAgDQogICAgICAgICAgICAgICAgICAgICAgICAgICAgICAgICAgICAgICAgICAgICAgICAg ICAgICAgICAgICAgICAgICAgICAgICAgICAgICAgIC AgICAgICAgICAgICAgICAgICAgDQogICAgICAgICAgICAgICAgICAgICAgICAgICAgICAgICAgICAgIC AgICAgICAgICAgICAgICAgICAgICAgICAgICAgICAgICAgICAgICAgICAgICAgICAgICAgICAgICAgIC AgDQogICAgICAgICAgICAgICAgICAgICAgICAgICAg ICAgICAgICAgICAgICAgICAgICAgICAgICAgICAgICAgICAgICAgICAgICAgICAgICAgICAgICAgICAg ICAgICAgICAgICAgDQogICAgICAgICAgICAgICAgICAgICAgICAgICAgICAgICAgICAgICAgICAgICAg ICAgICAgICAgICAgICAgICAgICAgICAgICAgICAgIC AgICAgICAgICAgICAgICAgICAgICAgDQogICAgICAgICAgICAgICAgICAgICAgICAgICAgICAgICAgIC AgICAgICAgICAgICAgICAgICAgICAgICAgICAgICAgICAgICAgICAgICAgICAgICAgICAgICAgICAgIC AgICAgDQogICAgICAgICAgICAgICAgICAgICAgICAg ICAgICAgICAgICAgICAgICAgICAgICAgICAgICAgICAgICAgICAgICAgICAgICAgICAgICAgICAgICAg ICAgICAgICAgICAgICAgDQogICAgICAgICAgICAgICAgICAgICAgICAgICAgICAgICAgICAgICAgICAg ICAgICAgICAgICAgICAgICAgICAgICAgICAgICAgIC AgICAgICAgICAgICAgICAgICAgICAgICAgDQogICAgICAgICAgICAgICAgICAgICAgICAgICAgICAgIC AgICAgICAgICAgICAgICAgICAgICAgICAgICAgICAgICAgICAgICAgICAgICAgICAgICAgICAgICAgIC KwVICxAJBvRSn4U6zqNLHeQPBhQU0eCEw5Ph5+DQoN LoRnDZY7clOiyU6QIA9zc4ArJOhtEQGia1ImUEu3SB6AZAHsSDvoRC1RHDwsrk2TUHNrUJKhlQNNz7wy EkFvBSR6ZAQcFsyrCL2SWDOfF6jdojTwIRFmHTCVZF3WSrSbP7TzaA34PRZDNu3+DQplbmRvYmoNCjIy GDVuv0UmDAa2EL3LWOKdShcxp9OlWhYfDZQWMIckNN 5EJGT9RZWzVAOcVx8TFSEmS187wsYfUW7FLf9LJdJeFR6okm0WSlUiLQAhMopXSmp2CWgpTQ6UfMTjKE cXOANyQVRrBR7uDsilPc7qkBMqII3wt8wxQZTNIKU0IXFgVM6zNLChHGBmXuR1SASDEA8CSLViRTJkdC XqLTAuQYMFOQ2YDOtfJAS6NocwodExkDTlMLsoSZ2Q YXJlbnQgMjIgMCBSDQo+Mu9JEG4vu7PnYGobANQnQE6nmd6LCMkXTnZrE8L8iLGfE1R3PDitSs7LJSEd DKIkQlXcQRZYSDqpVO2FSQ3bhtO9RE8WiSIpXOYmYTOmqVHnOQt0I10nbCIkOKfqQX5MIUV+Anais+Pg0K WKHbOQWyIZXmQzApXQUCHgWqT3JvU3SLl3KcU7UeOD 38yOtfwgPnPWmlSQ5NIM7tCIWwITSFTC8JoFCxfJ7odySqGgQgDRLNScEaW55axZWrFXKbTTPoQSFfTd 2SHSTeI3VpnqKffHxcktPkFCVhJNJSKY5UGWcaugJekTMldMbgAX51cYigOW3GFd9OQjHiRV9hvv0UdL KsLk5HTAGoLU4MWZBtOFEnVSTrZAZ0KJLiPqKmSVtz RJZoXUTrPSL6RTGzDSWrJB0UPvCjQOPuTGaxHPUyFYHtPZVbxz7LQMOzHWLqQFhwTuBiFXFdFRUuSHhh MVLyPLNnUCY3RGMjGOPcLH0NBoEoCXEzTCI6SwGrIJChHUDdzv1MEFMoJFIpJQfwKBTqZDTrSTSbJBiu GPDjPOOqPOj0IBNpLTYbMA9GQoEgGVBuLKItPLcqUS WbNIGlcn1AMFIjSYIbJxB6WmVvCPDgUSQkLUlgONGmTQK6FgBxQXBpVHWcKC7EQvAfMGTzJXB6DewcFS MpHXXbjb9EEXMaFGJfITHrZCNuTTSkRDSkZQjyZSUsLMR7PWLqANMxRUTmPA5TNxKoSVUwAFntKjNqSV HgJCTwrv4GYJGeRGPjVoO8KRUjXQXzKOJdQRkeVPYz FMT9CkP1XMTaEQDjDK3CUuEaSVBmINp5KdIjYXRmUTXbzg7WVLNmOAGuAMhzPjIwCJQdAMIzPVlqWKSn QPM6NHg8KCBbXVMcRV1LZhHnVCUeEPkqNzYiTJEsNRIfml7JJKKiUUOpKIH1BbEtMLUcSTJmPYfrNNIr IISfWVL5DYAnGYBsZL8IAeMxVAVzZyLtMXAwSPSlCZ Znmp1FLGNvEAEcCIPhCbJnOSXnTSKlFBz0omOupYDwHCp1TN6VV6WysvXgViTLFf2Kr209ZHX9WEWgBn 4TB2jxZa4dIWDbWLZPUc3TORc6UjGzUQBvBzUtHAJoDeG1BSC6DDRlJFPnKvxhLlV3PUG+XLu6SXYyOU Z1VWAdBPVsHrDyYXhxJSFsHwLhKKYyJQwjLZ5sNX ANCj4+WXztbICgbNqgMYPTPdWhDRtkJFfvJURZMu5H ID Date Data Source [id number] 09/03/2020 11:39:00 AM EST [facility] Name Value Range Interpretation Code Description Data Fabiola rce(s) Supporting Document(s) Glucose, Fingerstick 121 mg/dl 70-110 Above high normal [facility] The above 1 analytes were performed by [facility] [id number] [place] [address],[facility]#: [id number],[place] [address] ID Date Data Source [id number] 09/03/2020 11:17:36 AM EST [facility] Name Value Range Interpretation Code Description Data Fabiola rce(s) Supporting Document(s) Progress Notes [facility] CNCOQk3eCfCDJlMh15/ROFefFAKub4PkYFjlATf7QRstRIBlA9EhBXH8cH6wTQE6STyWKbNzNrVnLuX7 lbm [file] AgICAgICAgICAgICAgICAgICAgICAgICAgICAgICAgICAgICAgICAgICAgICAgICAgICAgICANCiAgIC AgICAgICAgICAgICAgICAgICAgICAgICAgICAgICAg ICAgICAgICAgICAgICAgICAgICAgICAgICAgICAgICAgICAgICAgICAgICAgICAgICAgICAgICAgICAg ICAgICANCiAgICAgICAgICAgICAgICAgICAgICAgICAgICAgICAgICAgICAgICAgICAgICAgICAgICAg ICAgICAgICAgICAgICAgICAgICAgICAgICAgICAgIC AgICAgICAgICAgICAgICANCiAgICAgICAgICAgICAgICAgICAgICAgICAgICAgICAgICAgICAgICAgIC AgICAgICAgICAgICAgICAgICAgICAgICAgICAgICAgICAgICAgICAgICAgICAgICAgICAgICAgICANCi AgICAgICAgICAgICAgICAgICAgICAgICAgICAgICAg ICAgICAgICAgICAgICAgICAgICAgICAgICAgICAgICAgICAgICAgICAgICAgICAgICAgICAgICAgICAg ICAgICAgICANCiAgICAgICAgICAgICAgICAgICAgICAgICAgICAgICAgICAgICAgICAgICAgICAgICAg ICAgICAgICAgICAgICAgICAgICAgICAgICAgICAgIC AgICAgICAgICAgICAgICAgICANCiAgICAgICAgICAgICAgICAgICAgICAgICAgICAgICAgICAgICAgIC AgICAgICAgICAgICAgICAgICAgICAgICAgICAgICAgICAgICAgICAgICAgICAgICAgICAgICAgICAgIC ANCiAgICAgICAgICAgICAgICAgICAgICAgICAgICAg ICAgICAgICAgICAgICAgICAgICAgICAgICAgICAgICAgICAgICAgICAgICAgICAgICAgICAgICAgICAg ICAgICAgICAgICANCiAgICAgICAgICAgICAgICAgICAgICAgICAgICAgICAgICAgICAgICAgICAgICAg ICAgICAgICAgICAgICAgICAgICAgICAgICAgICAgIC AgICAgICAgICAgICAgICAgICAgICANCiAgICAgICAgICAgICAgICAgICAgICAgICAgICAgICAgICAgIC AgICAgICAgICAgICAgICAgICAgICAgICAgICAgICAgICAgICAgICAgICAgICAgICAgICAgICAgICAgIC AgICANCjw/uZRaL3nqxPZudbK6G5hbAe5VHx8NCH3z f0XyVJQfLKcfacKyLpoIQjPhMIPvSjfTRyf8EInvDW2UiWXsL4PzW5TdVYhlFX7XQIFeOONsqHNvLROm AINiUqS3TTKwAXmdFW1YpFJpKUcdWAMhFGJoKM2TWJIoT688jpJlHN2VTd6PNgErCR6zoq5VXWasEKAh NruKTqa9LYyoPE3JxAWebQLoTPCjRNUDWuIhR9usj0 OrHQscTDXFLQzhCC6Yl9PruHTjQIc+Qn9FSD8kf2BsTMmfHDAqDW1nuh8KFRyIZdWfB2GexFtrBRXzl9 vgFPKwXY5lcNRxDFX9KVSdmSAyoQWXQMA4iR4lBTdmnlMhGL3AGYJ1VKBlSS8nVGAyDPLgVaPpYHDYJG 2NBPHwPPNjqBQxNGYcRLQVIY4XKEmqARY5HbwjomCq sTEfPJyfUU6POONzlpGaOCqyHAONTQh+Al7VYB6hs7AmHFuyYIPvOH9aeq1ULPvMOyRfR3L3sMWqM0O2 STifZe9PUJRpHDWiLZBdHHDFBRybHD8LSR5lxxE6LZ1SyRDyHMKwBNPkqMEoMFa9I26qfBVtUCnaCH4B ICA+Anais+Oy9VGMIpLGVjTBJuNeGaYTECTuDqA1QwT8 JUk5WyB3AlKN16tNlipcUwFTbaXK1RKB8gKKPdWYZJGH2XnDAygD8lvsHbLdPwEPWLMhAdR12jtPHdTT EgICN0UODeRa4KIPQwJ0QoyoFxzSgrjlXxJSQwBLVVKT6DTJkvxiVzaFZnbMsvAG00pTzeAH5CUz6RTz SbUI6ebj9PoMQjDk9SLFUcDQ9VLCZbCGToKVLvGAC1 SQQeGiPqXTqjHFGdUSObEKV2XVEbCZDtGT5QPlVyWYFgROQ3MVFvGLNuCXVrix7YWVQaGCJwTkB5XPJa NOZsDGZnAIoaMUQhFYEcXIA6AJRdUMEgOS1FPzNsMGBbTDE9ILfeSDWdWNSazq7QGQQgWODePXbrRxFr LIRyWIDkQRviSTLmRBCrTfUqGMShENUjOC9AFdPrNA AmJMG8KmWkQRQeCDRqrg2THQVaNHWfFoC4SpUyNYEzCSDwYMawLPXvIKN1EIA8EVWrXMYoFU3SYiFdJJ PuVLAyEIAwBHZfOBKhez0FTYFwJMEkXHF5YNWkPSKvDOPpIZvpPMKmQOS1RVWiTLCrGMBbAF1HIfVfZU AwUHT6MVEwEZEiEFLdmy0JNXPvPZNbTTijZRBfWAKk FQVkZVcoMSWdJWF2WcKiJIIoUXUjAY8GNeOrUVJsKJx8XFzqEGBaHPAzea5EBBCgOZTuLkj3HBZqVHBe GQFuLLizXYXvXLN2OPCfBJCfGDAqFC6IToUxQKgxYXUUHzb4OTcpQ4p7NXWdTX5KQ9Zny7BkUJxoPCAO LUulDK8jjrLdTLZmWd1LP0cIZdtyMDV1WiS7RWUzKG WkWqM2LQw7EbQ0YUAvJFNfQZGzDf1iZPZmPNZiHkD7QwIzI8G2WAPoHQjjIGLpWjV2BaH2WRJxWyBvJE 2UTm4NRvF9HIF0uCVuAw7WXQX2Ut4HAFESM2GFLy== ID Date Data Source [id number] 09/03/2020 12:40:00 PM EST [facility] Name Value Range Interpretation Code Description Data Fabiola rce(s) Supporting Document(s) PSA, Total 1.64 ng/ml 0.0-4.0 Normal (applies to non-numeric resul ts) [facility] The PSA is performed using the Siemens ( [place]) Bruni assay methodology. Sequential comparative analyses should be performed using the samemethod since results obtained by different methods are not interchangeable. The PSA assayshould not be used as a cancer screening test and should not be interpreted as evidence ofthe presence or absenceof malignant disease. PSA, Free 0.224 ng/ml [facility] The table below lists the probablility o f prostate cancer for men withnon- suspicious RADHA results and total PSA between 4 - 10 ng/mL, by patient age: (Siemens ([place]) assaymethodology)% Free PSA50 - 59 yrs60 - 69 yrs70 + yrs< or = 10%40.2%47.1%66.0%11% - 19%14.7%24.1%31.6%> or = 20%7.1%14.3%12.5%Sequential comparative assays should be performed using the same methodsince the resultsobtained by different methods are not interchangable. Results cannotbe interpreted as absoluteevidence of the presense or absense of malignant disease. PSA, Free % 13.7 % [facility] PSA Frequency First specimen [facility] The above 4 analytes were performed by [facility] [id number] [facility], ,[place] [address] ID Date Data Source [id number] 09/03/2020 09:42:00 AM EST [facility] Name Value Range Interpretation Code Description Data Fabiola rce(s) Supporting Document(s) Hemoglobin A1C 10.8 % 0.0-5.6 Above high normal [facility] Attention! Effective: 07/06/2019Please n ote a change in the reference range for Hemoglobin A1C testing.Previous Reference Range: 4.2-6.3New Reference Range: Normal: Less than 5.7% Pre-Diabetes: 5.7 - 6.4% Diabetes: Greater than 6.5%The above 1 analytes were performed by [facility] [id number], ,[place] [address] ID Date Data Source [id number] 09/03/2020 08:11:00 AM EST [facility] Name Value Range Interpretation Code Description Data Fabiola rce(s) Supporting Document(s) AST 15 IU/L 15-37 Normal (applies to non-numeric resul ts) [facility] Sulfasalazine and sulfapyridine have the potential to falsely depressAspartate Aminotransferase results. Baseline values before medication administration are recommended. ALT 18 IU/L 16-61 Normal (applies to non-numeric resul ts) [facility] Sulfasalazine and sulfapyridine have the potential to falsely depressAlanine Aminotransferase results. Baseline values before medication administration are recommended. Alkaline Phosphatase 85 mIU/ml 50-136 Normal (applies to non-num zbigniew results) [facility] Total Bilirubin 0.30 mg/dl 0.20-1.00 Normal (applies to non-numeric results) [facility] Blood Urea Nitrogen 28 mg/dl 7-18 Above high normal [facility] Creatinine 1.10 mg/dl 0.67-1.17 Normal (applies to non-numeric resul ts) [facility] N-Acetylcysteine (NAC) and Metamizole brady ve the potential to falselydepress Creatinine results. Baseline values before medication adminstration are recommended. Patients undergoing treatment with phenindione will have falselydepressed results. Patients on phenindione therapy should be tested with an alternativeCREA method.Toxic levels of acetaminophen may lead to falsely depressed results forpatient samples. Glomerular Filtration Rate 71.00 mL/min/1.73m2 [facility] GFR Reference Ranges:Normal Function or Mild Renal [...] of Health and the National KidneyFoundation. The Bruni method used in calculating this result is traceable to IDMS standards. Glucose 264 mg/dl 70-110 Above high normal [facility] Sulfasalazine has the potential to false ly depress Glucose results. Sulfapyridine has the potential to falsely elevate Glucose results. Baseline values before medication administration are recommended. Calcium 9.4 mg/dl 8.5-10.1 Normal (applies to non-numeric resul ts) [facility] Total Protein 7.7 g/dl 6.4-8.2 Normal (applies to non-numeric re sults) [facility] Albumin 3.4 g/dl 3.4-5.0 Normal (applies to non-numeric resul ts) [facility] Sodium 140 mEq/L 136-145 Normal (applies to non-numeric resul ts) [facility] Potassium 4.3 mEq/L 3.5-5.1 Normal (applies to non-numeric resul ts) [facility] Chloride 108.0 mEq/L 98.0-107.0 Above high normal [facility] Anion Gap 9.4 [facility] Carbon Dioxide 26.9 mMol/L 21.0-32.0 Normal (applies to non-numeric results) [facility] The above 16 analytes [address] [place] [facility] [place] [id number], ,[place] [address] ID Date Data Source [id number] 09/03/2020 08:11:00 AM [facility] Name Value Range Interpretation Code Description Data Fabiola rce(s) Supporting Document(s) Magnesium 2.2 mg/dl 1.6-2.6 Normal (applies to non-numeric resul ts) [facility] The above 1 analytes were performed by [facility] [id number], ,[place] [address] ID Date Data Source [id number] 09/03/2020 08:11:00 AM [facility] Name Value Range Interpretation Code Description Data Fabiola rce(s) Supporting Document(s) TSH 0.29 uIU/ml 0.36-3.74 Below low normal [facility] Concentrations of Biotin above 100 ng/mL can potentially result ininterference.The above 1 [address] performed [address] [facility] [id number], ,[place] [address] ID Date Data Source [id number] 09/03/2020 08:11:00 AM EST [facility] Name Value Range Interpretation Code Description Data Fabiola rce(s) Supporting Document(s) Triglycerides 97 mg/dl 30-200 Normal (applies to non-numeric re sults) [facility] N-Acetylcysteine (NAC) and Metamizole brady ve the potential to falselydepress Triglyceride results. Baseline values before medication adminstration are recommended. Cholesterol 150 mg/dl 0-200 Normal (applies to non-numeric resu lts) [facility] LDL Cholesterol 61.6 mg/dl 0.0-100.0 Normal (applies to non-numeric results) [facility] HDL Cholesterol 69 mg/dl 30-70 Normal (applies to non-numeric results) [facility] N-Acetylcysteine (NAC) and Metamizole brady ve the potential to falselydepress HDL Cholesterol results. Baseline values before medication adminstration are recommended. Cholesterol/ HDL Ratio 2.2 0.0-5.0 Normal (applies to non-n umeric results) [facility] LDL/HDL Ratio 0.9 [facility] The above 6 analytes were performed by [facility] [id number], ,[place] [id number] ID Date Data Source [id number] 09/03/2020 07:44:00 AM EST [facility] Name Value Range Interpretation Code Description Data Fabiola rce(s) Supporting Document(s) WBC 6.08 x1000/ul 4.80-10.00 Normal (applies to non-numeric re sults) [facility] RBC 4.82 x1Mil/ul 4.70-6.10 Normal (applies to non-numeric re sults) [facility] Hemoglobin 13.9 g/dl 14.0-18.0 Below low normal [facility] Hematocrit 42.2 % 42.0-52.0 Normal (applies to non-numeric resul ts) [facility] MCV 87.6 fL 80.0-94.0 Normal (applies to non-numeric resul ts) [facility] MCH 28.8 pg 27.0-31.0 Normal (applies to non-numeric resul ts) [facility] MCHC 32.9 g/dl 32.2-37.0 Normal (applies to non-numeric resul ts) [facility] RDW 13.3 % 11.5-14.5 Normal (applies to non-numeric resul ts) [facility] Platelet Count 290 x1000/ul 130-400 Normal (applies to non-numeric results) [facility] MPV 9.3 fL 9.4-12.4 Below low normal [facility] Neutrophils 53.5 % 40.0-74.0 Normal (applies to non-numeric resu lts) [facility] Lymphocytes 35.4 % 19.0-48.0 Normal (applies to non-numeric resu lts) [facility] Monocytes 8.2 % 3.4-9.0 Normal (applies to non-numeric resul ts) [facility] Eosinophils 2.0 % 0.0-7.0 Normal (applies to non-numeric resu lts) [facility] Basophils 0.7 % 0.0-2.0 Normal (applies to non-numeric resul ts) [facility] Immature Granulocytes 0.2 % 0.0-0.5 Normal (applies to non-nu meric results) [facility] Nucleated RBCs 0.00 % 0.00-0.20 Normal (applies to non-numeric r esults) [facility] Abs. Neutrophils 3.26 x1000/ul 1.92-8.31 Normal (applies to non-numeric results) [facility] Abs. Lymphocyte 2.15 x1000/ul 1.20-3.70 Normal (applies to non-n umeric results) [facility] Abs. Monocytes 0.50 x1000/ul 0.14-0.97 Normal (applies to non-nu meric results) [facility] Abs. Eosinophils 0.12 x1000/ul 0.00-0.76 Normal (applie s to non-numeric results) [facility] Abs. Basophils 0.04 x1000/ul 0.00-0.22 Normal (applies to non-n umeric results) [facility] Abs. Immature Gran. 0.01 x1000/ul 0.00-0.02 Normal (appl ies to non-numeric results) [facility] Abs. Nucleated RBCs 0.00 x1000/ul 0.00-0.02 Normal (appl ies to non-numeric results) [facility] The above 24 analytes were performed by [facility] [id number] [facility], ,[place] [address] ID Date Data Source [id number] 09/03/2020 07:15:00 AM EST [facility] Name Value Range Interpretation Code Description Data Fabiola rce(s) Supporting Document(s) Glucose, Fingerstick 228 mg/dl 70-110 Above high normal [facility] The above 1 analytes were performed by [facility] [id number] [facility], ,[place] [address] ID Date Data Source [id number] 09/03/2020 05:19:38 AM EST [facility] Name Value Range Interpretation Code Description Data Fabiola rce(s) Supporting Document(s) Nursing Note [facility] UHZRDx1cVuVULrKx41/RTItrAXXlu8UjBVyqZZt7BBapGHReN8FjSRA6lO3oQSE4DNoCLcXaOmIcWjK2 [facility] [file] Y+AZ1rTQi+Zz7Iu6AlxqM1kpVdTBxeWLtyWW0WWQYDM7PZYx== ID Date Data Source [id number] 09/02/2020 11:58:46 PM EST [facility] Name Value Range Interpretation Code Description Data Fabiola rce(s) Supporting Document(s) Care Plan [facility] MHJVMs1oFfNUEePc13/DGFcbDFCml5VhOHebVSc1VUicAKUbU4TcBKD8qU1dQTW8VIfTFhCeFdKkWbA9 lbm [file] QdA8DTVfAJQ+XS4nTYf+Gz9Un7QwdxN7cuHhUJwlIOBcIi2FUETWO8LGVp== ID Date Data Source [id number] 09/02/2020 09:30:00 PM EST [facility] Name Value Range Interpretation Code Description Data Fabiola rce(s) Supporting Document(s) Glucose, Fingerstick 125 mg/dl 70-110 Above high normal [facility] The above 1 analytes were performed by [facility] [id number] [place] [address],[facility]#: [id number],[facility],[place] [id number] ID Date Data Source [id number] 09/02/2020 07:57:03 PM EST [facility] Name Value Range Interpretation Code Description Data Fabiola rce(s) Supporting Document(s) Consults [facility] UCYWYu0vZzTZRxMb96/HPMnxSYAsk8CoPZkcUMk2HKteTCVdX1MxKDU4vL5mSDO8XKxBPiYhYxDbLzJ7 lbm [file] AgICAgICAgICAgICAgICAgICAgICAgICAgICAgICAgICAgICAgICAgICAgICAgICAgICAgICANCiAgIC AgICAgICAgICAgICAgICAgICAgICAgICAgICAgICAg ICAgICAgICAgICAgICAgICAgICAgICAgICAgICAgICAgICAgICAgICAgICAgICAgICAgICAgICAgICAg ICAgICANCiAgICAgICAgICAgICAgICAgICAgICAgICAgICAgICAgICAgICAgICAgICAgICAgICAgICAg ICAgICAgICAgICAgICAgICAgICAgICAgICAgICAgIC AgICAgICAgICAgICAgICANCiAgICAgICAgICAgICAgICAgICAgICAgICAgICAgICAgICAgICAgICAgIC AgICAgICAgICAgICAgICAgICAgICAgICAgICAgICAgICAgICAgICAgICAgICAgICAgICAgICAgICANCi AgICAgICAgICAgICAgICAgICAgICAgICAgICAgICAg ICAgICAgICAgICAgICAgICAgICAgICAgICAgICAgICAgICAgICAgICAgICAgICAgICAgICAgICAgICAg ICAgICAgICANCiAgICAgICAgICAgICAgICAgICAgICAgICAgICAgICAgICAgICAgICAgICAgICAgICAg ICAgICAgICAgICAgICAgICAgICAgICAgICAgICAgIC AgICAgICAgICAgICAgICAgICANCiAgICAgICAgICAgICAgICAgICAgICAgICAgICAgICAgICAgICAgIC AgICAgICAgICAgICAgICAgICAgICAgICAgICAgICAgICAgICAgICAgICAgICAgICAgICAgICAgICAgIC ANCiAgICAgICAgICAgICAgICAgICAgICAgICAgICAg ICAgICAgICAgICAgICAgICAgICAgICAgICAgICAgICAgICAgICAgICAgICAgICAgICAgICAgICAgICAg ICAgICAgICAgICANCiAgICAgICAgICAgICAgICAgICAgICAgICAgICAgICAgICAgICAgICAgICAgICAg ICAgICAgICAgICAgICAgICAgICAgICAgICAgICAgIC AgICAgICAgICAgICAgICAgICAgICANCiAgICAgICAgICAgICAgICAgICAgICAgICAgICAgICAgICAgIC AgICAgICAgICAgICAgICAgICAgICAgICAgICAgICAgICAgICAgICAgICAgICAgICAgICAgICAgICAgIC AgICANCjw/tHTbL3dybJPqoxQ1A6hnEt9EKc0KZH1n a2XsSFPnMAgcccHgNqjTItClGARjApgQPgv8WJlyGP0CiHZyW9ByQ6CqSMldJR8VSPHkICQneJGfTZZp EJLvOuY8LSKyABtuCX2AeIZgQRgcGKCfQYKuLoMrAGVaNFTdWUTaCPKyGLJAQS6CBcIhK3RklI08LWPO Cj4+WHjfmaToEtoMPhY6NZFqk5PaMCu5LX0SCSOxCm cgq5PaLzMnNEFIEQzuZY7SGKD3ANN4OVVaWm1EDMJoD341tqEnNS9KFw6ESnRfHG8diw0QQdFvVTQaQw tXKlk5ZSynGZ4YlYOoQWoFx07gjEg3uzEyxUSXtRynnETDFMemP9vfmfOqSX0VACB9FKUhZe0xFVTeAB MyLrW6RCXSAB4TRRNkOGDvnXMyBZVePUYEGR9VVZqg AVX9TzsvipIglETwYCyqEP6DQWSxouDhNtNiTOBQPSi+Cx1ZIT0jp9NuLEhjUgNgRV2zlk6BHMhSLtRq I0T8uSVtQ3U2GFsjMt0PHTBdLLFzVoDzPCGNTFuiJM1IZV9zfyD9FN8ZxTPbUIFbWNRowNIzZIr0N07p wHUaTLkuQT2NTWZ+Anais+Oy2WMAReLGLkZTTbFiGfHP WWZdTsK6FgK8XHn4ZaU2YmIA37cHaetzDnEKogZI7QJT2lBGYeISZWZV7YxJBeuL8govUrPXKxQCVQOh UkT82lwZYyGDMcZNK8BSNhKa9UBATwH3VcroImhBdnjwZaOWAhUHPTFD3CAZxorrBmlFWwfNfgOJ93bI saQN0ALu1GYoFjFH2pyf4LgVHoTu9UMJZpRE4DQPVm UIJxUQGmZXY1NAXtUpNsWKgbBWDzOMGgEOH8GPMiULFeNF9FDeVuPDSmWXr9NIAgGJHyVDOlee4XHEIh MRAyXRYaWrOdQQKxFTXwEDaaZONfYTAvWYG9UYNyFCCdBU4EKhMwDNScRLG0ObFvOBSvTFIibz6HJXEz PJRePul8ZACqBPDzZWBlHKmwLUTjGCD7VQH7RBNtOF IuFA0XHvAfEEPeKOT9TiTwCWVxANIvqz2SMHWrQVYvPrMhSYImKIYqNGBjFFckXURnNQN4ZUG2YSVcBO JmXH0CZfOlWRTcZPf4KPJbKTMwEFZwgp1EDZGiOULpTDDjUGSvBJNsSKOoXPldJHOiEIO8XVcrDSGiAY OnUI6WUeDpCMRsWWOnRSBbXHAoYIEdpu7FLGIgGYEy XIC1SZLfGKDrLUNkRRcrJDJiYEVnNnXcOTWxJZPlZX8HYfEzBVQnXUF9HdkfHBIeKGUqce5ISRHlGGFe OQwrLLKoMOOdMRHnUFklSAJuZUAdLtT7ZVEyBCCqHN8POaQrCKQdMNN2JLEmYYKuHSCbgp0WEQNjHUDe BnZ3PJHcKMJxHCBiGUmrYVClGTY1IXI0CAWvRMFpDN 4XDsItXHBoKLWsCNHnBPVaNQJkjn2KZCJoZSOvEIRbXdYtJNQcYZMuEFzpZFImVSF4Pao5PFEcJMKsIX 5RDqBuBNGoQGP5XNLkRYRxOBZkkr6PXANuUTPpEZr3VYDqBZDpFNXuUJhcHWKmEDQ5EsL4SMEsZVVsHL 7YThZrQFDbLEY2IldrAUIcDKScyz0FNCShLPNeRzPf QWPpVAPyJMNeLOnmKWEmZOW3DPysNQVtIYNrBN1ONsYnQHOgIOetFAHsQSWjGGZute4DYGBsOSYsLBJ6 LiKoONAfEOFcNOplKVElCEH0JRu0TURlJVVtAD9OPzWjSFJjTqI2GtQjECEqMIKgiy4TJXVjVIQtYWYi KOJwUJLbQMWfXQwmCOVdKLVjRnP5SOVjQEHfEO7ESx YzUOxtPMGWGgh0PMhqY6c4QJEgLN3ET6Gvt5GxXrywTOSBCZptDR5qorYeLOJdKr1WX6pGMgi7Jlq2RV CkFsK7LGRfARI9XUAoEhA7CKOoJHpmFiZiGJ2yDLdrTmj7RDAoSjXdKwP7PdJ4SRY5KxlbV7AoYqJmYJ Y0PxJzKI6XBl6GNjF0BLM3gUErVy5WRvW5DBDNZzAiJM7VSXm= ID Date Data Source [id number] 09/02/2020 05:02:00 PM [facility] Name Value Range Interpretation Code Description Data Fabiola rce(s) Supporting Document(s) Glucose, Fingerstick 354 mg/dl 70-110 Above high normal [facility] The above 1 analytes were performed by [facility] [id number] [place] [address]#: [id number],[facility],[place] [id number] ID Date Data Source [id number] 09/02/2020 12:26:34 PM EST [facility] Name Value Range Interpretation Code Description Data Fabiola rce(s) Supporting Document(s) H&P [facility] BVFLSu4pSuGILeUl31/ZPDmcKBXdg2VlDSliMBg7SJecHXJmO0BdKNJ2cU4vFKO3LKaEPvNmRoDdAfS7 lbm [file] ICAgICAgICAgICAgICAgICAgICAgICAgICAgICAgIC AgICAgICAgICAgICAgICAgICAgICAgICAgICAgICAgICAgICAgICAgICAgICAgICAgICAgICAgICAgIC TwRDFxOI6DDHQkXIJsLYFlLOChBVYeLWWeGJTsBFLzZLNcHUDqFHXrDXIbDJYnPYBqFEXrJQYfPFIiYF AgICAgICAgICAgICAgICAgICAgICAgICAgICAgICAg PLJaEOZmLRKzURKkHUSkBI7CQYCuQOUzBLAcRMYsXYArUOBeJZBfWFJkFXMxWRGbLRZrSSKdWPBdNNKk MMJoVQAhASZrPHRjZRGjMAVyBBEqYEYxVVFwXXWgDNSuOZUzNTJtBTLlFOPgWEEwYJXwFICwDLRfKQ2C ICAgICAgICAgICAgICAgICAgICAgICAgICAgICAgIC AgICAgICAgICAgICAgICAgICAgICAgICAgICAgICAgICAgICAgICAgICAgICAgICAgICAgICAgICAgIC IxWSEnSGElXC3RVGYcOTUiMRVfBMNsXTRmSIRcHBZgOGUcHTFfGUKsDLYmQCXdCWCaGNAjJCXpMWMvUA AgICAgICAgICAgICAgICAgICAgICAgICAgICAgICAg OZDpMORoEZHfDGJuLTTeJVYxKI3HMFPfJKHxWQDwZGJxVLItQKWmBRXqVFAqKYAiINGcVTClPHNuZJXb ICAgICAgICAgICAgICAgICAgICAgICAgICAgICAgICAgICAgICAgICAgICAgICAgICAgICAgICAgICAg FQ3OEHRuDCSpDQZjILVnPWJuQUVgEMJhHAJkWPBqLH AgICAgICAgICAgICAgICAgICAgICAgICAgICAgICAgICAgICAgICAgICAgICAgICAgICAgICAgICAgIC UpGOXeKLOvFDAsZP2SGSFoOWSyKXZuWSCrBIMkTDUtTGQmQEAvIWKsEMNuCWUaHESbZFJnMUTdVQZkAY AgICAgICAgICAgICAgICAgICAgICAgICAgICAgICAg KPBlTNRaNXRaTYItMOTmXFQuFRLpYX8ZLMAzKVFeKVTbUXLeYGRdQJHeDARaQYTjZWToVVOiTDHzQNTp ICAgICAgICAgICAgICAgICAgICAgICAgICAgICAgICAgICAgICAgICAgICAgICAgICAgICAgICAgICAg KREpMO4BDHDxFLHyJVZkKKUgDCFwFFZgOMPqMGLnFQ AgICAgICAgICAgICAgICAgICAgICAgICAgICAgICAgICAgICAgICAgICAgICAgICAgICAgICAgICAgIC YyVELyYOOwHOQhSHCxHC2GYC46qARap7B8RIIePR4ghbf/Zm3WRIspqeByuEZmKU4MByWrDN3yoy1UTu YrYK0ldf1IAXqZRhHdW2J2oPJeGFDgTJPSLpBfI55j HIfgKr14LCozLVFoCyGjJMe0Yc1RAgIgR9clVIEsZnI1BFChJyIsLUeuWI2Ef7RusVVhMQt+No2UIE8x l0YqDXrtBhTtVX1qjl7DECzEAvRnC5IauiS9SGJ2AYPcAa0ZYBFbEVStfCAaVBUlNESCHgLbJ6KptA07 IDENCj4+RLgifwWoFtlVXsS7AXRcr9TdYUk1PP2EHZ UtGBo6mNPqPZIOBHN4KUSwtIOxmFPTWPP1oI1oDVlauoDtYB4SGSU4NKAyJq6vLQQsEVRnLaJgTXVERM 4XQJIhVOGemSSrTGKtHNQQOV4ABOppBUE4ZwplkgDjzWGlJVexCG3EQDElzfOnVLsgHMEDKCk+Pg0KZW 8cz9PbIDqjKDKjBQ7uah9DLUfJCcSuS6L2zFAvU2Q9 MBkvHu7WONFlTWDeIBOnXKJCGXwmHQ1WIK8ivuB1EF0ZfZGzZWHoFAHqcMQmEUq3X14faUHbDDfrTS5V ICA+Anais+Et9QRGFgMFTnODUuKeLpMSBCYpVvV6GuZ7FBl3KxJ8XhNM84yKvetaWsLHraSS5XJT3gREZl IKPYHC2GeCNfpS8cfoGjRkUmZWPIZxCkE04utVJiOI KrQUK8CHZmCq5DMNIgA4DqllSanHhotaEtSIUcQGUGVX1DNMfocnLinVBuyEftDL61mBorPR4LOq6COu JtTG5tgk3RoTCkUi3RZEOdWI7HZJBcAWAqNHVoRJR7BRMnIsApCYhdGNOyIHCiCGK7ALZnAEToOA1PYr LxATVvNGnqQDtyNOKrCGEotq9RONKnYVJzYSU5PzLm HNRyZENtVUufBBByUILdJXB0RDKyNHImOX4HVlLeJZWjFHXrMvVqUIKlCYFuyq0YZIQnLSRwEmR7BVVu VGFqOEVqYNzfAPGyWHM6GqB4CVZtNHDnZT4SHyJeTYRqUFK2PousPSEaYBQobm4FPIRcWQCvBRJrNhDh TEBfFAMyTJtpEBAlMVM3CYrmGHUnFDCwRE3TFmDaVN OxQHG1UxdmWAWgZDMhfx8VCBArNMDxVPz4XRCcTETlCWSeQCafXOLeIJI4YDW8DVGcEDWoML9BDpInJN SjPDbhHHZvZFUuDXVpnz7TPMAcLDKdYyK1MPJoAMDcOXNeOMwfVECcWUU5IiU9HHEpMEHyQW4MRwUwPA DqVJkdICWoXHDgKVWtju9QXJLlTQCcPDCjZbYyBSEf NDXdUFpqGQPaGPV8NxY9OGQfBZEvAG2OPwQiFKfjIESEGow3HHkqR5i5FBTsHI9XT6Xdq6AkXQxzFCWB BWisYY7zbqOmHFMkJj5PC5iEGykpIjJdLDI8EWJ7GKWnTYNiBiGwMNE1Tvt7D5L7OUSxSy2tIZFrHKBh CLFsKGpaXxO7GODxCVGhSHncXWt7GOQ5WqAuBbHa DL0JEf5GPqF4SDD1eUXrKz1FNGGfCm9PTPYWA9OBDt== ID Date Data Source [id number] 09/02/2020 11:54:00 AM [facility] Name Value Range Interpretation Code Description Data Fabiola rce(s) Supporting Document(s) Glucose, Fingerstick 411 mg/dl 70-110 Above high normal [facility] The above 1 analytes were performed by [facility] [id number] [place] [address], ,[place] [id number] ID Date Data Source [id number] 09/02/2020 11:52:00 AM [facility] Name Value Range Interpretation Code Description Data Fabiola rce(s) Supporting Document(s) Glucose, Fingerstick 411 mg/dl 70-110 Above high normal [facility] The above 1 analytes were performed by [facility] [id number] [facility], ,[place] [address] ID Date Data Source [id number] 09/02/2020 09:41:46 AM EST [facility] Name Value Range Interpretation Code Description Data Fabiola rce(s) Supporting Document(s) Nursing Note [facility] GJEDUn1nJrGETqYm98/UKUzgLWOtb8SrZNpkXKg5ONqfXXLzK3WcDVI3mP6wDOH7UVcUCiGoUaNnMtI1 lbm [file] MBe2OtDaTN3FVm8NGjF4FFK3yNIyAm4FLqF9CYGHHyRcPP4KWAl= ID Date Data Source [id number] 09/02/2020 08:43:59 AM EST [facility] Name Value Range Interpretation Code Description Data Fabiola rce(s) Supporting Document(s) Nursing Note [facility] XDYWCy8cCjRNFmLn09/NSLegQNWgp8AnQHimWKj9NSktVHQsJ1NdCGN6vF7xHOZ6CMgSPdUbSoWhXwJ3 lbm [file] AgICAgICAgICAgICAgICAgICAgICAgICAgICAgICAg ICAgICAgICAgICAgICAgICAgICAgICAgICAgICAgICAgICAgICAgICAgICAgICAgICAgICAgDQogICAg ICAgICAgICAgICAgICAgICAgICAgICAgICAgICAgICAgICAgICAgICAgICAgICAgICAgICAgICAgICAg ICAgICAgICAgICAgICAgICAgICAgICAgICAgICAgIC AgICAgDQogICAgICAgICAgICAgICAgICAgICAgICAgICAgICAgICAgICAgICAgICAgICAgICAgICAgIC AgICAgICAgICAgICAgICAgICAgICAgICAgICAgICAgICAgICAgICAgICAgICAgDQogICAgICAgICAgIC AgICAgICAgICAgICAgICAgICAgICAgICAgICAgICAg ICAgICAgICAgICAgICAgICAgICAgICAgICAgICAgICAgICAgICAgICAgICAgICAgICAgICAgICAgDQog ICAgICAgICAgICAgICAgICAgICAgICAgICAgICAgICAgICAgICAgICAgICAgICAgICAgICAgICAgICAg ICAgICAgICAgICAgICAgICAgICAgICAgICAgICAgIC AgICAgICAgDQogICAgICAgICAgICAgICAgICAgICAgICAgICAgICAgICAgICAgICAgICAgICAgICAgIC AgICAgICAgICAgICAgICAgICAgICAgICAgICAgICAgICAgICAgICAgICAgICAgICAgDQogICAgICAgIC AgICAgICAgICAgICAgICAgICAgICAgICAgICAgICAg ICAgICAgICAgICAgICAgICAgICAgICAgICAgICAgICAgICAgICAgICAgICAgICAgICAgICAgICAgICAg DQogICAgICAgICAgICAgICAgICAgICAgICAgICAgICAgICAgICAgICAgICAgICAgICAgICAgICAgICAg ICAgICAgICAgICAgICAgICAgICAgICAgICAgICAgIC AgICAgICAgICAgDQogICAgICAgICAgICAgICAgICAgICAgICAgICAgICAgICAgICAgICAgICAgICAgIC AgICAgICAgICAgICAgICAgICAgICAgICAgICAgICAgICAgICAgICAgICAgICAgICAgICAgDQogICAgIC AgICAgICAgICAgICAgICAgICAgICAgICAgICAgICAg ICAgICAgICAgICAgICAgICAgICAgICAgICAgICAgICAgICAgICAgICAgICAgICAgICAgICAgICAgICAg URBaKBf6T3sdENDpESGhYJ7dWDn3Vu4+OUiRAiNqCQP7xqUzmZ0TPR8jj5QdATtwCTSwc2OrOWw3PK1J SVDnPJkdIW2JHTljhg8ESBPfRUOhmDJMk1xlBhSlMN C4GPUgBvzhDL6EXOHlM3aqjhHjSXWwRAHKSJ5HGaKpT6BfpK25HXIADd8+DQplbmRvYmoNCjIyIDAgb2 HfLRb9QU2POPMsXhtbs3EgHcPwNPXRMHlxJH7HSKZ2CHPaVYXsUd2GAPBoS596ckDzRD1FGk7TQyLfKQ 7dyo5NPfAsMHDeXmtKYui9LFaiYO9DrAXeMJdBdVSp hC2fNW8pmJXwYcgdL1fuwRI9g5KzEXXdJUJrlnRuXF3vGHPOWQX9RTLpMm5rXHHjRFU6FbWpIWPSMA7J YGPtPEKgsWNzLZTtMVVDAB4ASOkiZCA8XwakjsTpcXWrSPgdBR4LORYuolGiLyCuCRHCRYx+Jf7JFL4f b9NzMDmjXVEmZC0xro5HTPtMLmLrF0Z9oSFnQ3O1LF mwDs6ZRSRzWENsGiNpRJESIIxuMJ8SEO7rscV5RN2UqNYmFKPfDEMtdSMrTMb4Q16caRMcCYltQC1MMZ A+Anais+Ua6XREKiPIEdKVDwFeQqVBATKcLlC3JiC4DFf7UcP7WuCT98dTimxpMcQLwlMI9TLK5sYOQtEC OLEC2EoHQlsA4rclZmJgBnHCCTFrZzC56awCIyAYQe GGHzGQKsIx3OPIBsK3WxurLkhOuvhuLzKGWsLZGOBP7VFHbbykDobMPtfBnbIE96fAcjPD8UTx1XUyRl UU0gmb7PkBHsVd2XCFWmDE1GHVUoHVSjXALbLDS7HGOxOoLeGMrfJKSrWLNqACN7ONMvLYNbFZ0FWiGm NRYsURy4BqLbHLTsMVYmru9KPPHtXVKsEOBnGRWnYU TeIHCoXLxkATGkHKNvBKK8SFPkVUYeFV8LBrXgNDYsWAVcELPaGGWcTRYlea7CGCQqWGRuNFKhYKPqEH WhXYXbUGzcRZAhTAFwLlQ3AEOyEZDvCE2OYdAdEFBeHGY5EktpUKMfNCBzhg1OZLJzUFQzYzu8ZEUnKE JkBCWgMPvkDTBbSVEqHsWoTVPaWSZqED4JBlWkELWi MQT8VRMiHBAcBJHchq2VQTGwADEmZEW1EiKjIPVpSKHuCAldJKXxCMY9XKOsKBCvANXvHQ1AXwFtMFFu KGA1NUlgNLKlHWRkbe3ALCXiZLDwYcx1IsVbHTEgSDXgBAdzMSTbVOU6SzZ3OSQhVPPsRC0QUqZtDBSm RHblPTYvZLGzYEBhcs1YAATqFOVvZQD0ANLpJCTvHJ KpRIdtRZUhDLA4VOx4BWMnNBNmCE4WDuTrYLTpAMu3AXYoHKNkJAGyve9BEJFeUEGcUBT2WILqPBLdPG OcHMxnBVAkTXUlXEQ5JSAhVZCrZX7ZIqMuXDHgJgS6FsalWPGwJAUpnn6JCZWbVNNdWQvvGDJhKHGzDU NgHRa2esBthGCcYGh2OJ9RW6GcitHnAoMJFl2Sv615 FTG8NLAsCf0HG4ixLe9lFWQeJABPYv0PFJc5W6KvYwG4VsVnYGUkDPGrZEPjIiOpPZHfLNVpSOVyHsl+ XLdfNQDmEZmhV8SiHKR1RKCeEgH9W6FzOYFyNdI6LPKvIF9pTFVJRf3+DQpzdGFydHhyZWYNCjIwOTcz NJreLZUIZa1K ID Date Data Source [id number] 09/02/2020 08:43:39 AM EST [facility] Name Value Range Interpretation Code Description Data Fabiola rce(s) Supporting Document(s) Nursing Note [facility] OMLYSf5gSiIEIvOl58/QAJrdYSQmq0SiXQijWZw9EZgrSYLlC1NeGGA6vA1cDOO1TTvZGdMyKkFiWaQ8 lbm VyCgxRSgYcKCDgGpcQCnKmMQfkZvrdgCOgMZ1NwWH8AVQxS56gRJVhUWTvE1FoTEU0Qiy+Xz4QWDGmkV BqNY1DPfxZ5Pgpa+O48b1A/eSjmSGnfJ0Q2tmQdkBP5Jy9RcegFnpwCKarVWrmhifpvaI59nyp0c8yWW QDV5LanEtxv6Pb++JVGQ2OS9PjH3LM2n/+jD9O25Tl Vv7f/YkBmh8L2S5/YO0wV+yGtX+aNhAJ9EtzgW/Qf7r8/gvHkRsKH/6jjoKRq95IkeL2OwLvV1jbHDJd 7xxsmwrQn15C4lZEklwfbL7kcJ05rmY4xBHdrW+LEFsNnPnnPu5dg2x/Xln3eGfE1pkBdonkRcroGG5u t9iDOHYNyzXVQWmsVfVSuqYuSElzGVMB7jVNETBrt/ [file] ICAgICAgICAgICAgICAgICAgICAgICAgICAgICAgICAgICAgICAgICAgICAgICAgICAgICAgICAgICAg ICAgICAgICAgICAgICAgICAgICAgICAgICAgICAgICAgDQogICAgICAgICAgICAgICAgICAgICAgICAg ICAgICAgICAgICAgICAgICAgICAgICAgICAgICAgIC AgICAgICAgICAgICAgICAgICAgICAgICAgICAgICAgICAgICAgICAgICAgDQogICAgICAgICAgICAgIC AgICAgICAgICAgICAgICAgICAgICAgICAgICAgICAgICAgICAgICAgICAgICAgICAgICAgICAgICAgIC AgICAgICAgICAgICAgICAgICAgICAgICAgDQogICAg ICAgICAgICAgICAgICAgICAgICAgICAgICAgICAgICAgICAgICAgICAgICAgICAgICAgICAgICAgICAg ICAgICAgICAgICAgICAgICAgICAgICAgICAgICAgICAgICAgDQogICAgICAgICAgICAgICAgICAgICAg ICAgICAgICAgICAgICAgICAgICAgICAgICAgICAgIC AgICAgICAgICAgICAgICAgICAgICAgICAgICAgICAgICAgICAgICAgICAgICAgDQogICAgICAgICAgIC AgICAgICAgICAgICAgICAgICAgICAgICAgICAgICAgICAgICAgICAgICAgICAgICAgICAgICAgICAgIC AgICAgICAgICAgICAgICAgICAgICAgICAgICAgDQog ICAgICAgICAgICAgICAgICAgICAgICAgICAgICAgICAgICAgICAgICAgICAgICAgICAgICAgICAgICAg ICAgICAgICAgICAgICAgICAgICAgICAgICAgICAgICAgICAgICAgDQogICAgICAgICAgICAgICAgICAg ICAgICAgICAgICAgICAgICAgICAgICAgICAgICAgIC AgICAgICAgICAgICAgICAgICAgICAgICAgICAgICAgICAgICAgICAgICAgICAgICAgDQogICAgICAgIC AgICAgICAgICAgICAgICAgICAgICAgICAgICAgICAgICAgICAgICAgICAgICAgICAgICAgICAgICAgIC AgICAgICAgICAgICAgICAgICAgICAgICAgICAgICAg DQogICAgICAgICAgICAgICAgICAgICAgICAgICAgICAgICAgICAgICAgICAgICAgICAgICAgICAgICAg NIMsYZWiHIWoCTLgSUTxVNFqIYZwRLCkIUOvZOJbCPFgXGXcQCCbQOIrIQc0C3msSIVdZERsHM1mAYh1 Jz8+RWcPVfRjRVY0kcEdjP6URF5sn5RvUNpiJQXus7 BiSVk6HP6HFTIuHLvfOT2QEUronh2GACYdBNJffQTAj5mnMnOnXTU7JBKpFwlhZN6GUCFbF5ujztQdTU CfPHKXYZgcBYXZWFdaFJIYNL1UVpHgP7KveY11XCVHEs8+NMvxonAyPleCAeA1MTRxg2QiRCk1FH1BLV LzNkmmy5YeIyXeOUNSUYgnQM1DYXF9HDF4CVWfSx4Q LBBmH958cjKgVZ4YEk1ESwUgLY7bnf5GSbZbYXZuAbbHGbv4KDllBM4NwVJxZDcTaVXsxK5wJD3mzDKo DyjrU0ofnAM2z5YoIBCoPHTunzWpPI2kSAKQVQA3BHRyBh7mAODoDIV1VzVzLRWPCQ5OTNYzTJXskINb YYMkUVTVMV8ZYZdhQWC5UudlzgWtwXWvJWyhZO6NRO JlbnQgMzQgMCBSDQo+Tw2PWO6yo0PcNOgfAiHsGG4xeg9YWCpEAfOpJ0F0sCBmU3I9LZaiXe3YJPUzPB WfJaAvJOEVBQilYV0CFK2ghiA6JJ4AzZLpRJEmMAPrdWShLYl7S82vsMBrEWxnOF5YWNX+Anais+Pg0KIC XhPPIcKKKrKgXiOLYEYxTvB1VtP5GEa2AuN9FkTP80 sTwvohAgEZtqTK4YQB2hAPLwJFTDWB6CiIStyM4pivPkNNLhMEYFCrCvM12rkRUfEFJuJTMtWBMtCo6G CJDeZ3NkvwNgoFypshWpPROkYFWFVX9KWVxlqaBqbXQsyDpdAR12bVdbYV9PPz3QFnVbZW0qns9JhIJb Xe7FNYPmSd5WEUHsJOQtLKRdBDA7DFWsSwQxZZfrFZ HrCEOtUYB3CUEyFWBiJX4TCxOmSMVgUAW1HTEyOMZkVUWque0IGUQvSJB8AVIeBhScIBDeDXXoPLcxAF OtMFNbBYK8UWHeKVJeBG9VWyGiMVGgKMT2XAVcHOVnVXLzjq0PIZIcLNJpAkVdNTBbNWOeLFWtLPxuXY VmEDY6CxC8IHFlNVXpXF1SRuExOGNeHTS8HMRwPCDd AKHurf8UGTSwEXHlMuW2ACEvQCTgLFIxXZgqNIIrOWQ1EpMzYTRoCRAmUT2VQsAhDRUyJBy0ICKbHZGm LATvky0APIQjXLBaLyalMxSdKCIzDFVpFCtuAVWdWJP8RMKiWRReMBExAV2JEmRsHMKwUJo5WnLkAYDw TOMeth1BIWYzKGBfFBI1NMMrKYLgZGGqHMhfIDHbNL O8ZyZrFOYrARGwNC8VKkRqYGWdEcB9AMCgVTXhEWBeoa8ZVFKeQEGhLpNzPeWnJCRqMXDiVKqqOVQeAD RpCzS9WLXeNRMqGB8FMaLoNBPhXaQ9HQWqULPdHJKqna7EYTIfHBChLgOaTUWrTSMvCMMjCKjuEDGrDR NzRNEmWCVhXWUvDP3ENgQmZOStJvJ6XibcAMGoKHJg rf7IWAPlOSKbSfykIIJdJGLqXAGsBJalJLFmHEU1QWY0DOAtVOFxEG9OKoElNGZiTrBdLwWdEQSbIAEq qq7DJTFfRYZrLNWdXkFuRAJeVZYdUAgbWATtZQT7HyW0KZMkBORkQH0ARzPfOXQiFANmWRbfRGQrTAPi vm4PKHDqAPS4IWP2PnAfLRMgDSEcADsoDSUiHVT6Gm deKHJmBZUdDE7JDqGhIYOzVYV0QxWnMSGbXRUcif8IOJEhSUB4Qhj5FaZoJUVvNGVhNGhfSDZrBMN9AB ZyNYCtQWVcRP8VPjNoVQIlHQl9GPRvBDYjNFVhxa3JOIIjJOL4DUP3TmKlXUKdOKKuSWi2ccStbDDvPT d4JI2SO7KxmtIhDzwSId9Dv779HKT8BFFgJf1WC0pi Pf4ePHIhGJVEFv1ECCo0AmO0QTS7SEB9KiTkCISwOGOhTGaoXqisANYrJsrnBWS+FYkgDtj4XIasWvX7 F3U4WTLsKZMaJCQ1Q8AvQnKlZ6AjPm1dWYMZRu4+QSgjkTZpuNczZLNHDoO0WKYjEVwaYELARh0A ID Date Data Source [id number] 09/02/2020 08:15:22 AM EST [facility] Name Value Range Interpretation Code Description Data Fabiola rce(s) Supporting Document(s) Care Plan [facility] IHMUTf9uHaQFTjGx52/RBHvcHFFla0HcXPxhZKh6QArtPWEjA6PzSNJ4rK5sEWX0YExDBvIyNiJxNeW0 lbm [file] R7M8IBYiGyV7EBEoPQU9EBk+VL3wCCa+Ak9Bb4XpbcQ9maLsDRmiGEdmGt7XYTUVY3MPNb== ID Date Data Source [id number] 09/02/2020 07:52:00 AM EST [facility] Name Value Range Interpretation Code Description Data Fabiola rce(s) Supporting Document(s) Glucose, Fingerstick 211 mg/dl 70-110 Above high normal [facility] The above 1 analytes were performed by [facility] [address]#: [id number],[place] [address] ID Date Data Source [id number] 09/02/2020 06:20:13 AM [facility] Name Value Range Interpretation Code Description Data Fabiola rce(s) Supporting Document(s) ED Provider Notes [facility] WJSXUn3cSsUJZxDi01/BRCzbXAAii9OuQTuiLRh5YPawQXXyR2BdLOC9iR8gECC7POfINfFmJsNhTeB1 lbm [file] MxS0WBU0iCQaHi3MUbReYSAFHtVsGR0LSHl= ID Date Data Source [id number] 09/02/2020 06:05:00 AM [facility] Name Value Range Interpretation Code Description Data Fabiola rce(s) Supporting Document(s) Glucose, Fingerstick 205 mg/dl 70-110 Above high normal [facility] The above 1 analytes were performed by [facility] [address] [place] [address], ,[place] [address] ID Date Data Source [id number] 09/02/2020 12:35:00 AM EST [facility] Name Value Range Interpretation Code Description Data Fabiola rce(s) Supporting Document(s) Glucose, Fingerstick 222 mg/dl 70-110 Above high normal [facility] The above 1 analytes were performed by [facility] [address] [place] [address], ,[place] [address] ID Date Data Source [id number] 09/01/2020 11:18:48 PM EST [facility] Name Value Range Interpretation Code Description Data Fabiola rce(s) Supporting Document(s) ED Triage Notes [facility] SGRQXn8qSuYQEoXv71/UGDenREMaz8FhLYiyIOf3SNtoAZByK4CtMCM0yT8fJFQ6IFmPKjKzXhBmHeS2 lbm [file] AgICAgICAgICAgICAgICAgICAgICAgICAgICAgICAg ICAgICAgICAgICAgICAgICAgICAgICAgICAgDQogICAgICAgICAgICAgICAgICAgICAgICAgICAgICAg ICAgICAgICAgICAgICAgICAgICAgICAgICAgICAgICAgICAgICAgICAgICAgICAgICAgICAgICAgICAg ICAgICAgICAgDQogICAgICAgICAgICAgICAgICAgIC AgICAgICAgICAgICAgICAgICAgICAgICAgICAgICAgICAgICAgICAgICAgICAgICAgICAgICAgICAgIC AgICAgICAgICAgICAgICAgICAgDQogICAgICAgICAgICAgICAgICAgICAgICAgICAgICAgICAgICAgIC AgICAgICAgICAgICAgICAgICAgICAgICAgICAgICAg ICAgICAgICAgICAgICAgICAgICAgICAgICAgICAgDQogICAgICAgICAgICAgICAgICAgICAgICAgICAg ICAgICAgICAgICAgICAgICAgICAgICAgICAgICAgICAgICAgICAgICAgICAgICAgICAgICAgICAgICAg ICAgICAgICAgICAgDQogICAgICAgICAgICAgICAgIC AgICAgICAgICAgICAgICAgICAgICAgICAgICAgICAgICAgICAgICAgICAgICAgICAgICAgICAgICAgIC AgICAgICAgICAgICAgICAgICAgICAgDQogICAgICAgICAgICAgICAgICAgICAgICAgICAgICAgICAgIC AgICAgICAgICAgICAgICAgICAgICAgICAgICAgICAg ICAgICAgICAgICAgICAgICAgICAgICAgICAgICAgICAgDQogICAgICAgICAgICAgICAgICAgICAgICAg ICAgICAgICAgICAgICAgICAgICAgICAgICAgICAgICAgICAgICAgICAgICAgICAgICAgICAgICAgICAg ICAgICAgICAgICAgICAgDQogICAgICAgICAgICAgIC AgICAgICAgICAgICAgICAgICAgICAgICAgICAgICAgICAgICAgICAgICAgICAgICAgICAgICAgICAgIC AgICAgICAgICAgICAgICAgICAgICAgICAgDQogICAgICAgICAgICAgICAgICAgICAgICAgICAgICAgIC AgICAgICAgICAgICAgICAgICAgICAgICAgICAgICAg IYOhVBXeUGPdPIYeKFHqGFDsIODpFBQyHXIkRTEiYAIaPNAhETl4D2cpBJDdYYItSU4xDDp6Zx6+DQoN SxKoXVH3hlKkdL8DJJ4by1GwJWtsIZDyb9GnUSq4UT1PZVIoBJgvZH7BKRvkcw8CKSYxBQLffXCJn8sa AgLjFWA7YLSfNdxaJU9KGHEqZ5mfntNaSOSoHMGFUA 8EOoSmE2XfqP13JPDMPg5+OBlpmoSbJnpAGqH4GQNan1DtJIu0CV5KZHJuGzoyi1YaCOpuPBYPZXcdBQ 7RZNF2PVS3NYHvBd6NTYCoC244qxWhSU4SOf8KRuYsAX8ale5EEFwwLKQbPrzOXwr5UXqqSB5NsLSmOJ hCJJEXbhrvT8VqJs76VBWdKjwvElPfyyDkG9XqdJCb EMIWFWJ7SLMxZv6pZCRqCSSaCxA9MBPPZF7SUPPwQTLmeBCnFUFeUUKTJA3PXPiyNUI2StfsyiKohPQp HAoiXQ8SKBMwwpThOBvpNEHDJWi+Yv1BWG1nj6ZwURkvJBQaAH3xbr8PZIuVGhNgM8Q8eLJwM6J1XYqb Hg6FSVNtPZJnYTOkCCZKQNknKR4YDA0oilS5SI3VcV BxWMGoIHQnnYEoAFp9N52axQCfKRojPK0PZSW+Anais+Jq1RJRLyCQNvQLOnVrCmLBNTVgUvS4ByC4VAh5 UhX9VgLW25uUrcsgPgCGnpCP4BQE4yXKUdKKOXXQ3GlSKedW8mblAsTxHpZNRQNgSoN03ejXUzFIKnJV F3KKRjWa4WQGHvG2OqfcKzuCxyjjIaMMWrKLVDWW6X QVaeauSpdZGwzMfeYI41jNgeZZ6DRj2BPfVoQI8plu9WrGHaSe3TNNZtNM8ILHYpVFDuSDVmXYF1LCBj ScFkOAnpSAAoBDViMAV3ONTpRKTkPH9YTdZpMWEkMHL4VAAwGZGuSLSiud0XLMQyRLEnYtG0CyMrBXHf BFJePNuoXIBwYELgERR6LQAzJGPoTY5CVtYpLCHjYL SeLyAsECXaBMXowc5JYBAkGOXpLEZ9XAUgLVTuQQUoQAotCTEcTWDuXMFzIOWtSXPtFQ0QLlZdQUKaEJ K5DdEbQMYjWUPhuh8XSQJfNNLzUghjCCTyNQKhZIUwLYmdWEDsBHIxZJG5FFQeXNUqTW6IGjXjQJJrFI FgPtOmFWIdDYWwgf1OIPLrZZHsZNP9CuWaYXKlJPEb HKiuPMPrQVB4HdE4PKOfETAbDG3HOiNfSELxLTL3JDCuCBQhGEXoyr3UWSHvAKKzSMU8QENjKUJfHFWx ZYmiVDRnRSY7BSBaCBRtQSMbZT7TBeBsFONpEWd3OPQzMQYcONUgkf0ARDFhBHZwXoKuYTVxCBQnYNKw OUkgNHWiOWA0ZdE5CQXiNDIsVH6NXmYvIZknVXSABq w8NNxzQ1m1BCMhDU8BG1Erd6KyJSwuKLYGTYjuVO3gdlOeREWpSv5IA6fHCmptKMMaZzrtJKOmTJBrCb OtAMDkYij8VIlbPHZoP0UwEy7rAIEqYlB8MOLpXeHgVUPcW6CsFhB8OFe8I9X9FWQzIKQdVwBeOO0KQm 9DFnS6PCB8nQJwGi6PNlftDS8JQYSUC1DEXg== ID Date Data Source [id number] 09/01/2020 06:11:00 PM EST [facility] ([facility]) Name Value Range Interpretation Code Description Data Fabiola rce(s) Supporting Document(s) bedside glucose 139 mg/dL 70-105 Above high normal Bedside Gluco RUST ([facility]) ID Date Data Source [id number] 09/01/2020 06:11:00 PM EST MARTIR ([facility]) Name Value Range Interpretation Code Description Data Fabiola rce(s) Supporting Document(s) bedside glucose 139 mg/dL 70-105 Above high normal Bedside Gluco RUST ([facility]) ID Date Data Source [id number] 09/01/2020 06:11:00 PM EST MARTIR ([facility]) Name Value Range Interpretation Code Description Data Fabiola rce(s) Supporting Document(s) bedside glucose 139 mg/dL 70-105 Above high normal Bedside Gluco se [facility]OHWER ([facility]) ID Date Data Source [id number] 09/01/2020 02:35:00 PM EST [facility] Name Value Range Interpretation Code Description Data Fabiola rce(s) Supporting Document(s) SARS coronavirus 2 RNA [Presence] in Res piratory specimen by WILEY with probe detection NEGATIVE [facility] This lab was ordered by [facility] a nd reported by [facility]. ID Date Data Source [id number] 06/13/2020 01:30:00 PM EST MARTIR ([facility]) Name Value Range Interpretation Code Description Data Fabiola rce(s) Supporting Document(s) summary final . Summary MARTIR ([facility]) ID Date Data Source [id number] 06/13/2020 01:30:00 PM EST [facility] ([facility]) Name Value Range Interpretation Code Description Data Fabiola rce(s) Supporting Document(s) Hemoglobin A1c/Hemoglobin.total in Blood 9.7 % Hemoglobin a1C [facility] ([facility]) estimated average glucose 232 mg/dL 60-110 Above high norm al Estimated Average Glucose [facility] ([facility]) ID Date Data Source [id number] 06/13/2020 01:30:00 PM EST [facility] ([facility]) Name Value Range Interpretation Code Description Data Fabiola rce(s) Supporting Document(s) glucose, fasting 142 mg/dL 70-100 Above high normal Glucose, Fas ting [facility] ([facility]) blood urea nitrogen 15 mg/dL 7-18 Blood Urea Nitro gen [facility] ([facility]) glomerular filtration rate > 60.0 >56 Glomerula r Filtration Rate [facility] ([facility]) creatinine for GFR 1.02 mg/dL 0.70-1.30 Creatinine for GF R [facility] ([facility]) potassium serum 3.6 mEq/L 3.5-5.1 Potassium Serum ATHE NA ([facility]) chloride level 108 mEq/L 98-107 Above high normal Chloride Level [facility] ([facility]) sodium level 143 mEq/L 136-145 Sodium Level [facility] ([facility]) anion gap 9 mEq/L 8-16 Anion Gap [facility] ([facility]) AST/SGOT 26 U/L 7-37 AST/SGOT [facility] ([facility]) carbon dioxide level 26 mEq/L 21-32 Carbon Dioxide Level [facility] ([facility]) calcium level 9.1 mg/dL 8.5-10.1 Calcium Level M[facility] ( [facility]) alkaline phosphatase 65 U/L 45-117 Alkaline Phosph atase [facility] ([facility]) bilirubin,total 0.1 mg/dL 0.2-1.0 Below low normal Bilirubin,tota l [facility] ([facility]) ALT/SGPT 38 U/L 12-78 ALT/SGPT [facility] ([facility]) albumin/globulin ratio Albumin/globu liz Ratio [facility] ([facility]) total protein 7.2 gm/dL 6.4-8.2 Total Protein [facility] ( [facility]) albumin 3.5 gm/dL 3.2-5.2 Albumin [facility] ([facility]) ID Date Data Source [id number] 06/13/2020 01:30:00 PM EST [facility] ([facility]) Name Value Range Interpretation Code Description Data Fabiola rce(s) Supporting Document(s) summary final . Summary [facility]OHWER ([facility]) ID Date Data Source [id number] 06/13/2020 01:30:00 PM EST M[facility] ([facility]) Name Value Range Interpretation Code Description Data Fabiola rce(s) Supporting Document(s) Hemoglobin A1c/Hemoglobin.total in Blood 9.7 % Hemoglobin a1C [facility] ([facility]) estimated average glucose 232 mg/dL 60-110 Above high norm al Estimated Average Glucose [facility]ER ([facility]) ID Date Data Source [id number] 06/13/2020 01:30:00 PM EST M[facility] ([facility]) Name Value Range Interpretation Code Description Data Fabiola rce(s) Supporting Document(s) glucose, fasting 142 mg/dL 70-100 Above high normal Glucose, Fas ting [facility] ([facility]) glomerular filtration rate > 60.0 >56 Glomerula r Filtration Rate ROHWER ([facility]) blood urea nitrogen 15 mg/dL 7-18 Blood Urea Nitro gen [facility] ([facility]) creatinine for GFR 1.02 mg/dL 0.70-1.30 Creatinine for GF R [facility] ([facility]) potassium serum 3.6 mEq/L 3.5-5.1 Potassium Serum ATHE NA ([facility]) chloride level 108 mEq/L 98-107 Above high normal Chloride Level [facility] ([facility]) sodium level 143 mEq/L 136-145 Sodium Level [facility] ([facility]) anion gap 9 mEq/L 8-16 Anion Gap [facility] ([facility]) calcium level 9.1 mg/dL 8.5-10.1 Calcium Level M[facility]IR ( [facility]) carbon dioxide level 26 mEq/L 21-32 Carbon Dioxide Level [facility] ([facility]) alkaline phosphatase 65 U/L 45-117 Alkaline Phosph atase [facility] ([facility]) AST/SGOT 26 U/L 7-37 AST/SGOT [facility] ([facility]) ALT/SGPT 38 U/L 12-78 ALT/SGPT [facility] ([facility]) bilirubin,total 0.1 mg/dL 0.2-1.0 Below low normal Bilirubin,tota l [facility] ([facility]) total protein 7.2 gm/dL 6.4-8.2 Total Protein [facility] ( [facility]) albumin 3.5 gm/dL 3.2-5.2 Albumin [facility] ([facility]) albumin/globulin ratio Albumin/globu liz Ratio [facility] ([facility]) ID Date Data Source [id number] 06/13/2020 01:30:00 PM EST [facility] ([facility]) Name Value Range Interpretation Code Description Data Fabiola rce(s) Supporting Document(s) summary final . Summary [facility] ([facility]) ID Date Data Source [id number] 06/13/2020 01:30:00 PM EST [facility] ([facility]) Name Value Range Interpretation Code Description Data Fabiola rce(s) Supporting Document(s) Hemoglobin A1c/Hemoglobin.total in Blood 9.7 % Hemoglobin a1C [facility] ([facility]) estimated average glucose 232 mg/dL 60-110 Above high norm al Estimated Average Glucose [facility] ([facility]) ID Date Data Source [id number] 06/13/2020 01:30:00 PM EST [facility] ([facility]) Name Value Range Interpretation Code Description Data Fabiola rce(s) Supporting Document(s) glucose, fasting 142 mg/dL 70-100 Above high normal Glucose, Fas ting [facility] ([facility]) blood urea nitrogen 15 mg/dL 7-18 Blood Urea Nitro gen [facility] ([facility]) creatinine for GFR 1.02 mg/dL 0.70-1.30 Creatinine for GF R [facility] ([facility]) glomerular filtration rate > 60.0 >56 Glomerula r Filtration Rate [facility] ([facility]) sodium level 143 mEq/L 136-145 Sodium Level [facility] ([facility]) potassium serum 3.6 mEq/L 3.5-5.1 Potassium Serum ATHE NA ([facility]) carbon dioxide level 26 mEq/L 21-32 Carbon Dioxide Level [facility] ([facility]) chloride level 108 mEq/L 98-107 Above high normal Chloride Level [facility] ([facility]) AST/SGOT 26 U/L 7-37 AST/SGOT [facility] ([facility]) anion gap 9 mEq/L 8-16 Anion Gap [facility] ([facility]) calcium level 9.1 mg/dL 8.5-10.1 Calcium Level [facility] ( [facility]) bilirubin,total 0.1 mg/dL 0.2-1.0 Below low normal Bilirubin,tota l [facility] ([facility]) alkaline phosphatase 65 U/L 45-117 Alkaline Phosph atase [facility] ([facility]) ALT/SGPT 38 U/L 12-78 ALT/SGPT [facility] ([facility]) albumin 3.5 gm/dL 3.2-5.2 Albumin [facility] ([facility]) total protein 7.2 gm/dL 6.4-8.2 Total Protein MARTIR ( [facility]) albumin/globulin ratio Albumin/globu liz Ratio MARTIR ([facility]) ID Date Data Source [id number] 06/13/2020 12:57:00 PM EST MARTIR ([facility]) Name Value Range Interpretation Code Description Data Fabiola rce(s) Supporting Document(s) Blood Glucose: mg/dl Blood Glucose: mg/dl MARTIR ([facility]) ID Date Data Source [id number] 06/13/2020 12:57:00 PM EST MARTIR ([facility]) Name Value Range Interpretation Code Description Data Fabiola rce(s) Supporting Document(s) Blood Glucose: mg/dl Blood Glucose: mg/dl MARTIR ([facility]) ID Date Data Source [id number] 06/13/2020 12:57:00 PM EST MARTIR ([facility]) Name Value Range Interpretation Code Description Data Fabiola rce(s) Supporting Document(s) Blood Glucose: mg/dl Blood Glucose: mg/dl ROHWER ([facility]) ID Date Data Source [id number] 05/31/2020 08:40:00 AM EST MARTIR ([facility]) Name Value Range Interpretation Code Description Data Fabiola rce(s) Supporting Document(s) amphetamines level urine negative negative Amphetamine s Level Urine MARTIR ([facility]) benzodiazepines urine negative negative Benzodiazepine s Urine MARTIR ([facility]) barbiturates urine negative negative Barbiturates Urin e MARTIR ([facility]) methadone urine negative negative Methadone Urine ATHE NA ([facility]) cannabinoids urine negative negative Cannabinoids Urin e MARTIR ([facility]) cocaine metabolite urine negative negative Cocaine Met abolite Urine MARTIR ([facility]) opiates urine negative negative Opiates Urine MARTIR ( [facility]) phencyclidine urine negative negative Phencyclidine Ur ine MARTIR ([facility]) ID Date Data Source [id number] 05/31/2020 08:40:00 AM EST MARTIR ([facility]) Name Value Range Interpretation Code Description Data Fabiola rce(s) Supporting Document(s) amphetamines level urine negative negative Amphetamine s Level Urine MARTIR ([facility]) cocaine metabolite urine negative negative Cocaine Met abolite Urine MARTIR ([facility]) benzodiazepines urine negative negative Benzodiazepine s Urine MARTIR ([facility]) barbiturates urine negative negative Barbiturates Urin e MARTIR ([facility]) cannabinoids urine negative negative Cannabinoids Urin e MARTIR ([facility]) phencyclidine urine negative negative Phencyclidine Ur ine MARTIR ([facility]) methadone urine negative negative Methadone Urine ATHE NA ([facility]) opiates urine negative negative Opiates Urine MARTIR ( [facility]) ID Date Data Source [id number] 05/31/2020 08:40:00 AM EST MARTIR ([facility]) Name Value Range Interpretation Code Description Data Fabiola rce(s) Supporting Document(s) amphetamines level urine negative negative Amphetamine s Level Urine MARTIR ([facility]) benzodiazepines urine negative negative Benzodiazepine s Urine MARTIR ([facility]) cannabinoids urine negative negative Cannabinoids Urin e MARTIR ([facility]) barbiturates urine negative negative Barbiturates Urin e MARTIR ([facility]) opiates urine negative negative Opiates Urine MARTIR ( [facility]) cocaine metabolite urine negative negative Cocaine Met abolite Urine MARTIR ([facility]) phencyclidine urine negative negative Phencyclidine Ur ine MARTIR ([facility]) methadone urine negative negative Methadone Urine ATHE NA ([facility]) ID Date Data Source [id number] 05/31/2020 08:40:00 AM EST MARTIR ([facility]) Name Value Range Interpretation Code Description Data Fabiola rce(s) Supporting Document(s) amphetamines level urine negative negative Amphetamine s Level Urine MARTIR ([facility]) cannabinoids urine negative negative Cannabinoids Urin e MARTIR ([facility]) barbiturates urine negative negative Barbiturates Urin e MARTIR ([facility]) benzodiazepines urine negative negative Benzodiazepine s Urine MARTIR ([facility]) cocaine metabolite urine negative negative Cocaine Met abolite Urine MARTIR ([facility]) phencyclidine urine negative negative Phencyclidine Ur ine MARTIR ([facility]) opiates urine negative negative Opiates Urine MARTIR ( [facility]) methadone urine negative negative Methadone Urine ATHE NA ([facility]) ID Date Data Source [id number] 05/31/2020 07:16:00 AM EST MARTIR ([facility]) Name Value Range Interpretation Code Description Data Fabiola rce(s) Supporting Document(s) salicylate level 3.4 mg/dL 5.0-30.0 Below low normal Salicylate [place] MARTIR ([facility]) ID Date Data Source [id number] 05/31/2020 07:16:00 AM EST MARTIR ([facility]) Name Value Range Interpretation Code Description Data Fabiola rce(s) Supporting Document(s) ethyl alcohol (ethanol) < 0.003 0.000-0.010 Ethyl Alcoh ol (Ethanol) MARTIR ([facility]) ID Date Data Source [id number] 05/31/2020 07:16:00 AM EST MARTIR ([facility]) Name Value Range Interpretation Code Description Data Fabiola rce(s) Supporting Document(s) CPK creatine phosphokinase 967 U/L 39-308 Above high nor mal CPK Creatine Phosphokinase MARTIR ([facility]) ID Date Data Source [id number] 05/31/2020 07:16:00 AM EST MARTIR ([facility]) Name Value Range Interpretation Code Description Data Fabiola rce(s) Supporting Document(s) glucose, fasting 226 mg/dL 70-100 Above high normal Glucose, Fas ting MARTIR ([facility]) blood urea nitrogen 23 mg/dL 7-18 Above high normal Blood Ure a Nitrogen MARTIR ([facility]) potassium serum 4.2 mEq/L 3.5-5.1 Potassium Serum ATHE NA ([facility]) creatinine for GFR 1.10 mg/dL 0.70-1.30 Creatinine for GF R MARTIR ([facility]) glomerular filtration rate > 60.0 >56 Glomerula r Filtration Rate MARTIR ([facility]) sodium level 136 mEq/L 136-145 Sodium Level MARTIR ([facility]) chloride level 101 mEq/L 98-107 Chloride Level MARTIR ([facility]) carbon dioxide level 25 mEq/L 21-32 Carbon Dioxide Level MARTIR ([facility]) anion gap 10 mEq/L 8-16 Anion Gap MARTIR ([facility]) calcium level 9.7 mg/dL 8.5-10.1 Calcium Level MARTIR ( [facility]) ID Date Data Source [id number] 05/31/2020 07:16:00 AM EST MARTIR ([facility]) Name Value Range Interpretation Code Description Data Fabiola rce(s) Supporting Document(s) AST/SGOT 25 U/L 7-37 AST/SGOT MARTIR ([facility]) ALT/SGPT 20 U/L 12-78 ALT/SGPT MARTIR ([facility]) alkaline phosphatase 62 U/L 45-117 Alkaline Phosph atase MARTIR ([facility]) bilirubin,direct 0.2 mg/dL 0.0-0.2 Bilirubin,direct AT [place] ([facility]) total protein 8.4 gm/dL 6.4-8.2 Above high normal Total Protein A THENA ([facility]) bilirubin,total 0.6 mg/dL 0.2-1.0 Bilirubin,total ATHE ([facility]) albumin/globulin ratio Albumin/globu liz Ratio MARTIR ([facility]) albumin 4.2 gm/dL 3.2-5.2 Albumin MARTIR ([facility]) ID Date Data Source [id number] 05/31/2020 07:16:00 AM EST MARTIR ([facility]) Name Value Range Interpretation Code Description Data Fabiola rce(s) Supporting Document(s) white blood count 10.0 10 4.0-10.0 White Blood Count MARTIR ([facility]) red blood count 4.88 10 4.30-6.10 Red Blood Count ATHE NA ([facility]) hematocrit 43.5 % 42.0-52.0 Hematocrit MARTIR ([facility]) mean corpuscular volume 89.1 fL 80.0-96.0 Mean Corpusc ular Volume MARTIR ([facility]) hemoglobin 14.2 g/dL 13.5-17.5 Hemoglobin MARTIR ([facility]) red cell distribution width 12.8 % 11.5-14.5 Red Cell Distribution Width MARTIR ([facility]) platelet count, automated 235 10 150-450 Platelet C ount, Automated MARTIR ([facility]) mean corpuscular HGB conc 32.6 g/dL 32.0-36.5 Mean Corpu scular HGB Conc MARTIR ([facility]) mean corpuscular hemoglobin 29.1 pg 27.0-33.0 Mean Cor puscular Hemoglobin MARTIR ([facility]) mono % 7.4 % 0.0-5.0 Above high normal [place] % MARTIR ([facility]) lymph % 18.0 % 24.0-44.0 Below low normal Lymph % MARTIR ( [facility]) neutrophils % 73.6 % 36.0-66.0 Above high normal Neutrophils % A THENA ([facility]) immature granulocyte % 0.3 % 0-3.0 Immature Gran ulocyte % MARTIR ([facility]) nucleated red blood cell % 0.0 % 0-0 Nucleated Red Blood Cell % MARTIR ([facility]) baso % 0.4 % 0.0-1.0 Baso % MARTIR ([facility]) eos % 0.3 % 0.0-3.0 Eos % MARTIR ([facility]) neutrophils # 7.4 10 1.5-8.5 Neutrophils # MARTIR ( [facility]) lymph # 1.8 10 1.5-5.0 Lymph # MARTIR ([facility]) mono # 0.7 10 0.0-0.8 [place] # MARTIR ([facility]) eos # 0.0 10 0.0-0.5 Eos # MARTIR ([facility]) baso # 0.0 10 0.0-0.2 Baso # MARTIR ([facility]) ID Date Data Source [id number] 05/31/2020 07:16:00 AM EST MARTIR ([facility]) Name Value Range Interpretation Code Description Data Fabiola rce(s) Supporting Document(s) thyroid stimulating hormone 0.474 uIU/mL 0.358-3.740 Thyroid Stimulating Hormone ROHWER ([facility]) ID Date Data Source [id number] 05/31/2020 07:16:00 AM EST MARTIR ([facility]) Name Value Range Interpretation Code Description Data Fabiola rce(s) Supporting Document(s) acetaminophen level < 2.0 10.0-30.0 Below low normal Acetaminop hen Level ROHWER ([facility]) ID Date Data Source [id number] 05/31/2020 07:16:00 AM EST MARTIR ([facility]) Name Value Range Interpretation Code Description Data Fabiola rce(s) Supporting Document(s) salicylate level 3.4 mg/dL 5.0-30.0 Below low normal Salicylate [place] MARTIR ([facility]) ID Date Data Source [id number] 05/31/2020 07:16:00 AM EST MARTIR ([facility]) Name Value Range Interpretation Code Description Data Fabiola rce(s) Supporting Document(s) ethyl alcohol (ethanol) < 0.003 0.000-0.010 Ethyl Alcoh ol (Ethanol) MARTIR ([facility]) ID Date Data Source [id number] 05/31/2020 07:16:00 AM EST MARTIR ([facility]) Name Value Range Interpretation Code Description Data Fabiola rce(s) Supporting Document(s) CPK creatine phosphokinase 967 U/L 39-308 Above high nor mal CPK Creatine Phosphokinase MARTIR ([facility]) ID Date Data Source [id number] 05/31/2020 07:16:00 AM EST MARTIR ([facility]) Name Value Range Interpretation Code Description Data Fabiola rce(s) Supporting Document(s) glucose, fasting 226 mg/dL 70-100 Above high normal Glucose, Fas ting MARTIR ([facility]) creatinine for GFR 1.10 mg/dL 0.70-1.30 Creatinine for GF R MARTIR ([facility]) glomerular filtration rate > 60.0 >56 Glomerula r Filtration Rate MARTIR ([facility]) sodium level 136 mEq/L 136-145 Sodium Level MARTIR ([facility]) blood urea nitrogen 23 mg/dL 7-18 Above high normal Blood Ure a Nitrogen MARTIR ([facility]) carbon dioxide level 25 mEq/L 21-32 Carbon Dioxide Level MARTIR ([facility]) anion gap 10 mEq/L 8-16 Anion Gap MARTIR ([facility]) potassium serum 4.2 mEq/L 3.5-5.1 Potassium Serum ATHE NA ([facility]) chloride level 101 mEq/L 98-107 Chloride Level MARTIR ([facility]) calcium level 9.7 mg/dL 8.5-10.1 Calcium Level MARTIR ( [facility]) ID Date Data Source [id number] 05/31/2020 07:16:00 AM EST MARTIR ([facility]) Name Value Range Interpretation Code Description Data Fabiola rce(s) Supporting Document(s) AST/SGOT 25 U/L 7-37 AST/SGOT ROHWER ([facility]) alkaline phosphatase 62 U/L 45-117 Alkaline Phosph atase MARTIR ([facility]) bilirubin,total 0.6 mg/dL 0.2-1.0 Bilirubin,total ATHE NA ([facility]) bilirubin,direct 0.2 mg/dL 0.0-0.2 Bilirubin,direct AT [place] ([facility]) ALT/SGPT 20 U/L 12-78 ALT/SGPT MARTIR ([facility]) albumin 4.2 gm/dL 3.2-5.2 Albumin MARTIR ([facility]) total protein 8.4 gm/dL 6.4-8.2 Above high normal Total Protein A THENA ([facility]) albumin/globulin ratio Albumin/globu liz Ratio MARTIR ([facility]) ID Date Data Source [id number] 05/31/2020 07:16:00 AM EST MARTIR ([facility]) Name Value Range Interpretation Code Description Data Fabiola rce(s) Supporting Document(s) red blood count 4.88 10 4.30-6.10 Red Blood Count ATHE ([facility]) white blood count 10.0 10 4.0-10.0 White Blood Count MARTIR ([facility]) hemoglobin 14.2 g/dL 13.5-17.5 Hemoglobin MARTIR ([facility]) hematocrit 43.5 % 42.0-52.0 Hematocrit MARTIR ([facility]) mean corpuscular volume 89.1 fL 80.0-96.0 Mean Corpusc ular Volume MARTIR ([facility]) red cell distribution width 12.8 % 11.5-14.5 Red Cell Distribution Width MARTIR ([facility]) platelet count, automated 235 10 150-450 Platelet C ount, Automated MARTIR ([facility]) mean corpuscular hemoglobin 29.1 pg 27.0-33.0 Mean Cor puscular Hemoglobin MARTIR ([facility]) mean corpuscular HGB conc 32.6 g/dL 32.0-36.5 Mean Corpu scular HGB Conc MARTIR ([facility]) neutrophils % 73.6 % 36.0-66.0 Above high normal Neutrophils % A THENA ([facility]) lymph % 18.0 % 24.0-44.0 Below low normal Lymph % MARTIR ( [facility]) mono % 7.4 % 0.0-5.0 Above high normal [place] % MARTIR ([facility]) eos % 0.3 % 0.0-3.0 Eos % MARTIR ([facility]) baso % 0.4 % 0.0-1.0 Baso % MARTIR ([facility]) nucleated red blood cell % 0.0 % 0-0 Nucleated Red Blood Cell % MARTIR ([facility]) immature granulocyte % 0.3 % 0-3.0 Immature Gran ulocyte % MARTIR ([facility]) mono # 0.7 10 0.0-0.8 [place] # MARTIR ([facility]) lymph # 1.8 10 1.5-5.0 Lymph # MARTIR ([facility]) neutrophils # 7.4 10 1.5-8.5 Neutrophils # MARTIR ( [facility]) eos # 0.0 10 0.0-0.5 Eos # MARTIR ([facility]) baso # 0.0 10 0.0-0.2 Baso # MARTIR ([facility]) ID Date Data Source [id number] 05/31/2020 07:16:00 AM EST MARTIR ([facility]) Name Value Range Interpretation Code Description Data Fabiola rce(s) Supporting Document(s) thyroid stimulating hormone 0.474 uIU/mL 0.358-3.740 Thyroid Stimulating Hormone MARTIR ([facility]) ID Date Data Source [id number] 05/31/2020 07:16:00 AM EST MARTIR ([facility]) Name Value Range Interpretation Code Description Data Fabiola rce(s) Supporting Document(s) acetaminophen level < 2.0 10.0-30.0 Below low normal Acetaminop hen Level MARTIR ([facility]) ID Date Data Source [id number] 05/31/2020 07:16:00 AM EST MARTIR ([facility]) Name Value Range Interpretation Code Description Data Fabiola rce(s) Supporting Document(s) salicylate level 3.4 mg/dL 5.0-30.0 Below low normal Salicylate [place] MARTIR ([facility]) ID Date Data Source [id number] 05/31/2020 07:16:00 AM EST MARTIR ([facility]) Name Value Range Interpretation Code Description Data Fabiola rce(s) Supporting Document(s) ethyl alcohol (ethanol) < 0.003 0.000-0.010 Ethyl Alcoh ol (Ethanol) ROHWER ([facility]) ID Date Data Source [id number] 05/31/2020 07:16:00 AM EST MARTIR ([facility]) Name Value Range Interpretation Code Description Data Fabiola rce(s) Supporting Document(s) CPK creatine phosphokinase 967 U/L 39-308 Above high nor mal CPK Creatine Phosphokinase ROHWER ([facility]) ID Date Data Source [id number] 05/31/2020 07:16:00 AM EST MARTIR ([facility]) Name Value Range Interpretation Code Description Data Fabiola rce(s) Supporting Document(s) glucose, fasting 226 mg/dL 70-100 Above high normal Glucose, Fas ting MARTIR ([facility]) blood urea nitrogen 23 mg/dL 7-18 Above high normal Blood Ure a Nitrogen MARTIR ([facility]) creatinine for GFR 1.10 mg/dL 0.70-1.30 Creatinine for GF R MARTIR ([facility]) glomerular filtration rate > 60.0 >56 Glomerula r Filtration Rate MARTIR ([facility]) potassium serum 4.2 mEq/L 3.5-5.1 Potassium Serum ATH NA ([facility]) sodium level 136 mEq/L 136-145 Sodium Level MARTIR ([facility]) anion gap 10 mEq/L 8-16 Anion Gap MARTIR ([facility]) carbon dioxide level 25 mEq/L 21-32 Carbon Dioxide Level MARTIR ([facility]) chloride level 101 mEq/L 98-107 Chloride Level MARTIR ([facility]) calcium level 9.7 mg/dL 8.5-10.1 Calcium Level MARTIR ( [facility]) ID Date Data Source [id number] 05/31/2020 07:16:00 AM EST MARTIR ([facility]) Name Value Range Interpretation Code Description Data Fabiola rce(s) Supporting Document(s) ALT/SGPT 20 U/L 12-78 ALT/SGPT MARTIR ([facility]) AST/SGOT 25 U/L 7-37 AST/SGOT MARTIR ([facility]) alkaline phosphatase 62 U/L 45-117 Alkaline Phosph atase MARTIR ([facility]) bilirubin,direct 0.2 mg/dL 0.0-0.2 Bilirubin,direct AT [place] ([facility]) bilirubin,total 0.6 mg/dL 0.2-1.0 Bilirubin,total ATHE ([facility]) total protein 8.4 gm/dL 6.4-8.2 Above high normal Total Protein A THENA ([facility]) albumin/globulin ratio Albumin/globu liz Ratio MARTIR ([facility]) albumin 4.2 gm/dL 3.2-5.2 Albumin MARTIR ([facility]) ID Date Data Source [id number] 05/31/2020 07:16:00 AM EST MARTIR ([facility]) Name Value Range Interpretation Code Description Data Fabiola rce(s) Supporting Document(s) white blood count 10.0 10 4.0-10.0 White Blood Count MARTIR ([facility]) red blood count 4.88 10 4.30-6.10 Red Blood Count ATHE NA ([facility]) hematocrit 43.5 % 42.0-52.0 Hematocrit MARTIR ([facility]) hemoglobin 14.2 g/dL 13.5-17.5 Hemoglobin MARTIR ([facility]) mean corpuscular volume 89.1 fL 80.0-96.0 Mean Corpusc ular Volume MARTIR ([facility]) mean corpuscular hemoglobin 29.1 pg 27.0-33.0 Mean Cor puscular Hemoglobin MARTIR ([facility]) mean corpuscular HGB conc 32.6 g/dL 32.0-36.5 Mean Corpu scular HGB Conc MARTIR ([facility]) red cell distribution width 12.8 % 11.5-14.5 Red Cell Distribution Width MARTIR ([facility]) neutrophils % 73.6 % 36.0-66.0 Above high normal Neutrophils % A THENA ([facility]) lymph % 18.0 % 24.0-44.0 Below low normal Lymph % ROHWER ( [facility]) platelet count, automated 235 10 150-450 Platelet C ount, Automated MARTIR ([facility]) eos % 0.3 % 0.0-3.0 Eos % MARTIR ([facility]) mono % 7.4 % 0.0-5.0 Above high normal [place] % MARTIR ([facility]) baso % 0.4 % 0.0-1.0 Baso % MARTIR ([facility]) lymph # 1.8 10 1.5-5.0 Lymph # ROHWER ([facility]) nucleated red blood cell % 0.0 % 0-0 Nucleated Red Blood Cell % MARTIR ([facility]) immature granulocyte % 0.3 % 0-3.0 Immature Gran ulocyte % MARTIR ([facility]) neutrophils # 7.4 10 1.5-8.5 Neutrophils # MARTIR ( [facility]) eos # 0.0 10 0.0-0.5 Eos # MARTIR ([facility]) baso # 0.0 10 0.0-0.2 Baso # MARTIR ([facility]) mono # 0.7 10 0.0-0.8 [place] # MARTIR ([facility]) ID Date Data Source [id number] 05/31/2020 07:16:00 AM EST MARTIR ([facility]) Name Value Range Interpretation Code Description Data Fabiola rce(s) Supporting Document(s) thyroid stimulating hormone 0.474 uIU/mL 0.358-3.740 Thyroid Stimulating Hormone MARTIR ([facility]) ID Date Data Source [id number] 05/31/2020 07:16:00 AM EST MARTIR ([facility]) Name Value Range Interpretation Code Description Data Fabiola rce(s) Supporting Document(s) acetaminophen level < 2.0 10.0-30.0 Below low normal [facility] Data Source [id number] 05/31/2020 07:16:00 AM EST MARTIR ([facility]) Name Value Range Interpretation Code Description Data Fabiola rce(s) Supporting Document(s) salicylate level 3.4 mg/dL 5.0-30.0 Below low normal Salicylate [place] MARITR ([facility]) ID Date Data Source [id number] 05/31/2020 07:16:00 AM EST MARTIR ([facility]) Name Value Range Interpretation Code Description Data Fabiola rce(s) Supporting Document(s) ethyl alcohol (ethanol) < 0.003 0.000-0.010 Ethyl Alcoh ol (Ethanol) MARTIR ([facility]) ID Date Data Source [id number] 05/31/2020 07:16:00 AM EST MARTIR [facility]) Name Value Range Interpretation Code Description Data Fabiola rce(s) Supporting Document(s) CPK creatine phosphokinase 967 U/L 39-308 Above high nor mal CPK [facility] Date Data Source [id number] 05/31/2020 07:16:00 AM EST MARTIR ([facility]) Name Value Range Interpretation Code Description Data Fabiola rce(s) Supporting Document(s) glucose, fasting 226 mg/dL 70-100 Above high normal Glucose, Fas ting MARTIR ([facility]) creatinine for GFR 1.10 mg/dL 0.70-1.30 Creatinine for GF R MARTIR ([facility]) sodium level 136 mEq/L 136-145 Sodium Level MARTIR ([facility]) blood urea nitrogen 23 mg/dL 7-18 Above high normal Blood Ure a Nitrogen MARTIR ([facility]) glomerular filtration rate > 60.0 >56 Glomerula r Filtration Rate ROHWER ([facility]) potassium serum 4.2 mEq/L 3.5-5.1 Potassium Serum ATHE ([facility]) anion gap 10 mEq/L 8-16 Anion Gap MARTIR ([facility]) chloride level 101 mEq/L 98-107 Chloride Level ROHWER ([facility]) carbon dioxide level 25 mEq/L 21-32 Carbon Dioxide Level MARTIR ([facility]) calcium level 9.7 mg/dL 8.5-10.1 Calcium Level ROHWER ( [facility]) ID Date Data Source [id number] 05/31/2020 07:16:00 AM EST MARTIR ([facility]) Name Value Range Interpretation Code Description Data Fabiola rce(s) Supporting Document(s) ALT/SGPT 20 U/L 12-78 ALT/SGPT MARTIR ([facility]) AST/SGOT 25 U/L 7-37 AST/SGOT MARTIR ([facility]) bilirubin,total 0.6 mg/dL 0.2-1.0 Bilirubin,total ATHE ([facility]) bilirubin,direct 0.2 mg/dL 0.0-0.2 Bilirubin,direct AT EDISON [facility]) alkaline phosphatase 62 U/L 45-117 Alkaline Phosph atase MARTIR ([facility]) albumin/globulin ratio Albumin/globu liz Ratio MARTIR ([facility]) total protein 8.4 gm/dL 6.4-8.2 Above high normal [facility] albumin 4.2 gm/dL 3.2-5.2 Albumin MARTIR ([facility]) ID Date Data Source [id number] 05/31/2020 07:16:00 AM EST MARTIR ([facility]) Name Value Range Interpretation Code Description Data Fabiola rce(s) Supporting Document(s) red blood count 4.88 10 4.30-6.10 Red Blood Count ATHE NA ([facility]) white blood count 10.0 10 4.0-10.0 White Blood Count MARTIR ([facility]) hemoglobin 14.2 g/dL 13.5-17.5 Hemoglobin MARTIR ([facility]) hematocrit 43.5 % 42.0-52.0 Hematocrit MARTIR ([facility]) mean corpuscular volume 89.1 fL 80.0-96.0 Mean Corpusc ular Volume MARTIR ([facility]) red cell distribution width 12.8 % 11.5-14.5 Red Cell Distribution Width MARTIR ([facility]) mean corpuscular HGB conc 32.6 g/dL 32.0-36.5 Mean Corpu scular HGB Conc MARTIR ([facility]) mean corpuscular hemoglobin 29.1 pg 27.0-33.0 Mean Cor puscular Hemoglobin MARTIR ([facility]) platelet count, automated 235 10 150-450 Platelet C ount, Automated MARTIR ([facility]) mono % 7.4 % 0.0-5.0 Above high normal [place] % MARTIR ([facility]) neutrophils % 73.6 % 36.0-66.0 Above high normal Neutrophils % A THENA ([facility]) lymph % 18.0 % 24.0-44.0 Below low normal Lymph % MARTIR ( [facility]) eos % 0.3 % 0.0-3.0 Eos % MARTIR ([facility]) immature granulocyte % 0.3 % 0-3.0 Immature Gran ulocyte % MARTIR ([facility]) baso % 0.4 % 0.0-1.0 Baso % MARTIR ([facility]) mono # 0.7 10 0.0-0.8 [place] # ROHWER ([facility]) neutrophils # 7.4 10 1.5-8.5 Neutrophils # ROHWER ( [facility]) nucleated red blood cell % 0.0 % 0-0 Nucleated Red Blood Cell % MARTIR ([facility]) lymph # 1.8 10 1.5-5.0 Lymph # MARTIR ([facility]) eos # 0.0 10 0.0-0.5 Eos # MARTIR ([facility]) baso # 0.0 10 0.0-0.2 Baso # MARTIR ([facility]) ID Date Data Source [id number] 05/31/2020 07:16:00 AM EST MARTIR ([facility]) Name Value Range Interpretation Code Description Data Fabiola rce(s) Supporting Document(s) thyroid stimulating hormone 0.474 uIU/mL 0.358-3.740 Thyroid Stimulating Hormone ROHWER ([facility]) ID Date Data Source [id number] 05/31/2020 07:16:00 AM EST ROHWER ([facility]) Name Value Range Interpretation Code Description Data Fabiola rce(s) Supporting Document(s) acetaminophen level < 2.0 10.0-30.0 Below low normal Acetaminop hen Level ROHWER ([facility]) Procedure Social History Code Duration Value Status Description Data Source(s ) Smoking 04/15/2021 12:00:00 AM EDT Unknown if ever smoked comp leted Unknown if ever smoked [facility] ([facility]) Smoking 03/21/2021 12:00:00 AM EDT Unknown if ever smoked comp leted Unknown if ever smoked [facility] ([facility]) Alcohol intake 03/02/2021 12:00:00 AM EDT Ex-drinker (finding) comp leted Ex- drinker (finding) [facility] Tobacco use and exposure 03/02/2021 12:00:00 AM EDT Never used co mpleted Never used [facility] Cigarette pack-years 03/02/2021 12:00:00 AM EDT UNK completed [facility] Cigarettes smoked current (pack per day) - Reported 03/02/20 12:00:00 AM EDT UNK completed [facility] Smoking 03/02/2021 12:00:00 AM EDT Current every day smoker co mpleted Current every day smoker [facility] Smoking 02/26/2021 12:00:00 AM EDT Unknown if ever smoked comp leted Unknown if ever smoked [facility] ([facility] Smoking 01/31/2021 12:00:00 AM EDT Unknown if ever smoked comp leted Unknown if ever smoked [facility] ([facility]) Smoking 12/13/2020 12:00:00 AM EDT Unknown if ever smoked comp leted Unknown if ever smoked [facility] ([facility]) Smoking 11/22/2020 12:00:00 AM EDT Unknown if ever smoked comp leted Unknown if ever smoked [facility] ([facility]) Smoking 10/18/2020 12:00:00 AM EDT Unknown if ever smoked comp leted Unknown if ever smoked [facility] ([facility]) Smoking 10/08/2020 12:00:00 AM EDT Unknown if ever smoked comp leted Unknown if ever smoked [facility] ([facility]) Smoking 10/01/2020 12:00:00 AM EDT Unknown if ever smoked comp leted Unknown if ever smoked [facility] ([facility]) Smoking 08/27/2020 12:00:00 AM EST Unknown if ever smoked comp leted Unknown if ever smoked [facility] ([facility]) Smoking 08/03/2020 12:00:00 AM EST Unknown if ever smoked comp leted Unknown if ever smoked [facility] ([facility]) Smoking 07/10/2020 12:00:00 AM EST Unknown if ever smoked comp leted Unknown if ever smoked [facility] ([facility]) Smoking 06/14/2020 12:00:00 AM EST Unknown if ever smoked comp leted Unknown if ever smoked [facility] ([facility]) Smoking 06/12/2020 12:00:00 AM EST Unknown if ever smoked comp leted Unknown if ever smoked [facility] ([facility]) Smoking 04/24/2020 12:00:00 AM EDT Unknown if ever smoked comp leted Unknown if ever smoked [facility] ([facility]) Smoking 04/09/2020 12:00:00 AM EDT Unknown if ever smoked comp leted Unknown if ever smoked [facility] ([facility]) Smoking 04/02/2020 12:00:00 AM EDT Unknown if ever smoked comp leted Unknown if ever smoked [facility] ([facility]) Vital Signs ID Date Data Source UNK Name Value Range Interpretation Code Description Data Source(s) Diastolic blood pressure 82 mm[Hg] 82 mm[Hg] [facility] ([facility]) Body height 66 [in_i] 66 [in_i] [facility] ([facility]) Systolic blood pressure 110 mm[Hg] 110 mm[Hg] A THENA ([facility]) Diastolic blood pressure 82 mm[Hg] 82 mm[Hg] MARTIR ([facility]) Body height 66 [in_i] 66 [in_i] MARTIR ([facility]) Diastolic blood pressure 82 mm[Hg] 82 mm[Hg] MARTIR ([facility]) Body height 66 [in_i] 66 [in_i] MARTIR ([facility]) Systolic blood pressure 110 mm[Hg] 110 mm[Hg] A THENA ([facility]) Systolic blood pressure 110 mm[Hg] 110 mm[Hg] A THENA ([facility]) Diastolic blood pressure 70 mm[Hg] 70 mm[Hg] MARTIR ([facility]) Body height 62 [in_i] 62 [in_i] MARTIR ([facility]) Body mass index (BMI) [Ratio] 30.6 kg/m2 30.6 k g/m2 MARTIR ([facility]) Systolic blood pressure 104 mm[Hg] 104 mm[Hg] A THENA ([facility]) Body weight 2676 [oz_av] 2676 [oz_av] [facility] ([facility]) Diastolic blood pressure 79 mm[Hg] 79 mm[Hg] [facility]ART[facility] ([facility]) Body height 66 [in_i] 66 [in_i] MARTIR ([facility]) Systolic blood pressure 124 mm[Hg] 124 mm[Hg] A THENA ([facility]) Diastolic blood pressure 79 mm[Hg] 79 mm[Hg] MARTIR ([facility]) Body height 66 [in_i] 66 [in_i] MARTIR ([facility]) Systolic blood pressure 124 mm[Hg] 124 mm[Hg] A THENA ([facility]) Diastolic blood pressure 79 mm[Hg] 79 mm[Hg] MARTIR ([facility]) Diastolic blood pressure 79 mm[Hg] 79 mm[Hg] MARTIR ([facility]) Body height 66 [in_i] 66 [in_i] [facility]IR ([facility]) Systolic blood pressure 124 mm[Hg] 124 mm[Hg] A THENA ([facility]) Body height 66 [in_i] 66 [in_i] MARTIR ([facility]) Systolic blood pressure 124 mm[Hg] 124 mm[Hg] A THENA ([facility]) Body mass index (BMI) [Ratio] 27.1 kg/m2 27.1 k g/m2 MARTIR ([facility]) Systolic blood pressure 112 mm[Hg] 112 mm[Hg] A THENA ([facility]) Body weight 167.6 [lb_av] 167.6 [lb_av] MARTIR ([facility]) Diastolic blood pressure 74 mm[Hg] 74 mm[Hg] M[facility] ([facility]) Body height 66 [in_i] 66 [in_i] MARTIR ([facility]) Diastolic blood pressure 74 mm[Hg] 74 mm[Hg] MARTIR ([facility]) Body height 66 [in_i] 66 [in_i] MARTIR ([facility]) Body mass index (BMI) [Ratio] 27.1 kg/m2 27.1 k g/m2 MART[facility] ([facility]) Systolic blood pressure 112 mm[Hg] 112 mm[Hg] A THENA ([facility]) Body weight 167.6 [lb_av] 167.6 [lb_av] MARTIR ([facility]) Diastolic blood pressure 74 mm[Hg] 74 mm[Hg] MARTIR ([facility]) Body height 66 [in_i] 66 [in_i] MARTIR ([facility]) Body mass index (BMI) [Ratio] 27.1 kg/m2 27.1 k g/m2 MARTIR ([facility]) Systolic blood pressure 112 mm[Hg] 112 mm[Hg] A THENA ([facility]) Body weight 167.6 [lb_av] 167.6 [lb_av] MARTIR ([facility]) Diastolic blood pressure 74 mm[Hg] 74 mm[Hg] MARTIR ([facility]) Body height 66 [in_i] 66 [in_i] MARTIR ([facility]) Body mass index (BMI) [Ratio] 27.1 kg/m2 27.1 k g/m2 MART[facility] ([facility]) Systolic blood pressure 112 mm[Hg] 112 mm[Hg] A THENA ([facility]) Body weight 167.6 [lb_av] 167.6 [lb_av] MARTIR ([facility]) Diastolic blood pressure 74 mm[Hg] 74 mm[Hg] MARTIR ([facility]) Body height 66 [in_i] 66 [in_i] MARTIR ([facility]) Body mass index (BMI) [Ratio] 27.1 kg/m2 27.1 k g/m2 MART[facility] ([facility]) Systolic blood pressure 112 mm[Hg] 112 mm[Hg] A THENA ([facility]) Body weight 167.6 [lb_av] 167.6 [lb_av] MARTIR ([facility]) Diastolic blood pressure 66 mm[Hg] 66 mm[Hg] MARTIR ([facility]) Body height 62 [in_i] 62 [in_i] MARTIR ([facility]) Body mass index (BMI) [Ratio] 30.4 kg/m2 30.4 k g/m2 MARTIR ([facility]) Systolic blood pressure 111 mm[Hg] 111 mm[Hg] A SUNA ([facility]) Body weight 2656 [oz_av] 2656 [oz_av] [facility] ([facility]) Diastolic blood pressure 66 mm[Hg] 66 mm[Hg] MARTIR ([facility]) Body height 62 [in_i] 62 [in_i] MARTIR ([facility]) Body mass index (BMI) [Ratio] 30.4 kg/m2 30.4 k g/m2 MARTIR ([facility]) Systolic blood pressure 111 mm[Hg] 111 mm[Hg] A SUNA ([facility]) Body weight 2656 [oz_av] 2656 [oz_av] [facility] ([facility]) Body height 0.00 in Normal (applies to non-numeric resu lts) 0.00 in [facility] ([facility]) Body weight Measured 0.00 lbs Normal (applies to n on-numeric results) 0.00 lbs [facility] ([facility]) Body mass index (BMI) [Ratio] 0.00 kg/m2 No rmal (applies to non-numeric results) 0.00 kg/m2 [facility] ([facility]) Systolic blood pressure 0 mm[Hg] Normal (applies t o non-numeric results) 0 mm[Hg] [facility] Diastolic blood pressure 0 mm[Hg] Normal (applies to non-numeric results) 0 mm[Hg] [facility] ([facility]) Body height 0.00 in Normal (applies to non-numeric resu lts) 0.00 in [facility] ([facility]) Body weight Measured 0.00 lbs Normal (applies to n on-numeric results) 0.00 lbs [facility] ([facility]) Body mass index (BMI) [Ratio] 0.00 kg/m2 No rmal (applies to non-numeric results) 0.00 kg/m2 [facility] ([facility]) Systolic blood pressure 0 mm[Hg] Normal (applies t o non-numeric results) 0 mm[Hg] [facility] ([facility]) Diastolic blood pressure 0 mm[Hg] Normal (applies to non-numeric results) 0 mm[Hg] [facility] ([facility]) Diastolic blood pressure 58 mm[Hg] 58 mm[Hg] MARTIR ([facility]) Body height 62 [in_i] 62 [in_i] MARTIR ([facility]) Body mass index (BMI) [Ratio] 32.3 kg/m2 32.3 k g/m2 MARTIR ([facility]) Body weight 2822 [oz_av] 2822 [oz_av] [facility] ([facility]) Systolic blood pressure 93 mm[Hg] 93 mm[Hg] [facility] Diastolic blood pressure 58 mm[Hg] 58 mm[Hg] MARTIR ([facility]) Body height 62 [in_i] 62 [in_i] MARTIR ([facility]) Body mass index (BMI) [Ratio] 32.3 kg/m2 32.3 k g/m2 M[facility] ([facility]) Systolic blood pressure 93 mm[Hg] 93 mm[Hg] A [facility] ([facility]) Body weight 2822 [oz_av] 2822 [oz_av] [facility]ARTIR ([facility]) Diastolic blood pressure 58 mm[Hg] 58 mm[Hg] MARTIR ([facility]) Body height 62 [in_i] 62 [in_i] MARTIR ([facility]) Body mass index (BMI) [Ratio] 32.3 kg/m2 32.3 k g/m2 [facility] ([facility]) Systolic blood pressure 93 mm[Hg] 93 mm[Hg] [facility] Body weight 2822 [oz_av] 2822 [oz_av] [facility]IR ([facility]) Diastolic blood pressure 58 mm[Hg] 58 mm[Hg] MARTIR ([facility]) Body height 62 [in_i] 62 [in_i] M[facility]IR ([facility]) Body mass index (BMI) [Ratio] 32.3 kg/m2 32.3 k g/m2 MARTIR ([facility]) Systolic blood pressure 93 mm[Hg] 93 mm[Hg] A THENA ([facility]) Body weight 2822 [oz_av] 2822 [oz_av] [facility] ([facility]) Body height 0.00 in Normal (applies to non-numeric resu lts) [facility] Body weight Measured 0.00 lbs Normal (applies to n on-numeric results) 0.00 lbs [facility] ([facility]) Body mass index (BMI) [Ratio] 0.00 kg/m2 No rmal (applies to non-numeric results) 0.00 kg/m2 [facility] ([facility]) Systolic blood pressure 0 mm[Hg] Normal (applies t o non-numeric results) 0 mm[Hg] [facility] ([facility]) Diastolic blood pressure 0 mm[Hg] Normal (applies to non-numeric results) 0 mm[Hg] [facility] ([facility]) Body height 0.00 in Normal (applies to non-numeric resu lts) 0.00 in [facility] ([facility]) Body weight Measured 0.00 lbs Normal (applies to n on-numeric results) 0.00 lbs [facility] ([facility]) Body mass index (BMI) [Ratio] 0.00 kg/m2 No rmal (applies to non-numeric results) 0.00 kg/m2 [facility] ([facility]) Systolic blood pressure 0 mm[Hg] Normal (applies t o non-numeric results) 0 mm[Hg] [facility]) Diastolic blood pressure 0 mm[Hg] Normal (applies to non-numeric results) 0 mm[Hg] [facility] ([facility]) ID Date Data Source [id number] 03/06/2021 10:25:59 PM T [facility] Name Value Range Interpretation Code Description Data Source(s) TRANSFER FROM Other Facility Other Facility [facility] ID Date Data Source [id number] 10/30/2020 11:15:23 AM EDT [facility] Name Value Range Interpretation Code Description Data Source(s) Chief complaint - Reported hypotension hypotens [facility] Chief complaint - Reported hypotension hypotens [facility] ID Date Data Source [id number] 11/06/2020 02:27:21 PM EDT [facility] Name Value Range Interpretation Code Description Data Source(s) Chief complaint - Reported psych transfer psych transfer [facility] Chief complaint - Reported psych transfer psych transfer [facility] Patient Treatment Plan of Care Planned Activity Planned Date Details Description Data Source (s) Nicotine 2 MG Oral Lozenge 03/06/2021 12:00:00 AM [facility] dextrose 50 % IV solution 25 mL 03/02/2021 07:12:16 PM [facility] Glucagon 1 MG Injection 03/02/2021 07:12:16 PM [facility] Glucose 0.417 MG/MG Oral Gel 03/02/2021 07:12:16 PM [facility] Acetaminophen 325 MG Oral Tablet 03/02/2021 07:02:17 PM [facility] 24 HR Metformin hydrochloride 500 MG Extended Release Oral Tablet 10/16/2014 12:00:[address] [facility] Trazodone Hydrochloride 100 MG Oral Tablet 09/08/2014 12:00:00 AM [facility] quetiapine 100 MG Oral Tablet 09/08/2014 12:00:00 AM [facility] 24 HR Glipizide 2.5 MG Extended Release Oral Tablet 01/21/20 12:00:00 AM [facility] Cholecalciferol 2000 UNT Oral Capsule [facility]IR ([facility]) Trazodone Hydrochloride 50 MG Oral Tablet MARTIR ([facility]) Trazodone Hydrochloride 100 MG Oral Tablet MARTIR ([facility]) tramadol hydrochloride 50 MG Oral Tablet [facility]IR ([facility]) tizanidine 2 MG Oral Tablet [facility]IR ([facility]) Steglatro 5 mg tablet MARTIR ([facility]) Steglatro 15 mg tablet ATHEN A ([facility]) Risperidone 4 MG Oral Tablet MARTIR ([facility]) quetiapine 400 MG Oral Tablet MARTIR ([facility]) pen needles mis [id number] [facility] [place] ([facility]) OneTouch Ultra2 Meter kit AT [facility] ([facility]) OneTouch Ultra2 Meter USE DIRECTED TO TEST BLOOD SUGAR THREE TIMES DAILY MARTIR ([facility]) OneTouch Ultra Blue Test Strip [facility]IR ([facility]) Nicotine 2 MG Chewing Gum AT [facility] ([facility]) Naltrexone hydrochloride 50 MG Oral Tablet MARTIR ([facility]) Metformin hydrochloride 850 MG Oral Tablet MARTIR ([facility]) meloxicam 15 MG Oral Tablet MARTIR ([facility]) empagliflozin 25 MG Oral Tablet [Jardiance] MARTIR ([facility]) insulin syrg mis 1ml/29g [facility] [place] ([facility]) insulin syrg mis 0.5/31g [facility] [place] ([facility]) insulin syrg mis 1ml/29g [place] [place] ([facility]) insulin syrg mis 0.5/31g [place] [place] ([facility]) gabapentin 400 MG Oral Capsule MARTIR ([facility]) Cephalexin 500 MG Oral Capsule MARTIR ([facility]) celecoxib 200 MG Oral Capsule MARTIR ([facility]) Amoxicillin 500 MG Oral Capsule MARTIR ([facility]) Acetaminophen 300 MG / Codeine Phosphate 30 MG Oral Tablet MARTIR ([facility]) Cholecalciferol 2000 UNT Oral Capsule MARTIR ([facility]) Trazodone Hydrochloride 50 MG Oral Tablet M[facility]IR ([facility]) Trazodone Hydrochloride 100 MG Oral Tablet M[facility]IR ([facility]) tramadol hydrochloride 50 MG Oral Tablet MARTIR ([facility]) tizanidine 2 MG Oral Tablet M[facility]IR ([facility]) Steglatro 5 mg tablet MARTIR ([facility]) Steglatro 15 mg tablet ATHEN A ([facility]) Risperidone 4 MG Oral Tablet M[facility]IR ([facility]) quetiapine 400 MG Oral Tablet MARTIR ([facility]) pen needles mis [id number] [place] [place] ([facility]) OneTouch Ultra2 Meter kit AT [facility] ([facility]) OneTouch Ultra2 Meter USE DIRECTED TO TEST BLOOD SUGAR THREE TIMES DAILY MARTIR ([facility]) OneTouch Ultra Blue Test Strip M[facility] ([facility]) Nicotine 2 MG Chewing Gum AT [facility] ([facility]) Naltrexone hydrochloride 50 MG Oral Tablet MARTIR ([facility]) Metformin hydrochloride 850 MG Oral Tablet MARTIR ([facility]) meloxicam 15 MG Oral Tablet M[facility]IR ([facility]) empagliflozin 25 MG Oral Tablet [Jardiance] M[facility]IR ([facility]) insulin syrg mis 1ml/29g [place] [place] ([facility]) insulin syrg mis 0.5/31g [facility] [place] ([facility]) gabapentin 400 MG Oral Capsule [facility] ([facility]) Cephalexin 500 MG Oral Capsule M[facility] ([facility]) celecoxib 200 MG Oral Capsule M[facility] ([facility]) Amoxicillin 500 MG Oral Capsule [facility] ([facility]) Acetaminophen 300 MG / Codeine Phosphate 30 MG Oral Tablet [facility] ([facility]) Trazodone Hydrochloride 50 MG Oral Tablet [facility] ([facility]) Steglatro 5 mg tablet TAKE ONE TABLET BY MOUTH ONCE DAILY M[facility]IR ([facility]) quetiapine 200 MG Oral Tablet [facility] ([facility]) Nicotine 2 MG Chewing Gum AT [facility] ([facility]) Metformin hydrochloride 850 MG Oral Tablet [facility] ([facility]) meloxicam 15 MG Oral Tablet [facility] ([facility]) Levofloxacin 500 MG Oral Tablet [facility] ([facility]) Ibuprofen 800 MG Oral Tablet [facility] ([facility]) Acetaminophen 325 MG / Hydrocodone Bitartrate 5 MG Oral Tablet [facility] ([facility]) gabapentin 400 MG Oral Capsule [facility] ([facility]) Acetaminophen 300 MG / Codeine Phosphate 30 MG Oral Tablet [facility] ([facility]) Trazodone Hydrochloride 50 MG Oral Tablet [facility] tizanidine 4 MG Oral Tablet [facility] Regular Insulin, Human 100 UNT/ML Injectable Solution [facility] Cholecalciferol 2000 UNT Oral Capsule M[facility] ([facility]) Ergocalciferol 83140 UNT Oral Capsule [facility] ([facility]) Trazodone Hydrochloride 50 MG Oral Tablet [facility] ([facility]) Trazodone Hydrochloride 100 MG Oral Tablet [facility] ([facility]) tramadol hydrochloride 50 MG Oral Tablet [facility] ([facility]) tizanidine 2 MG Oral Tablet M[facility] ([facility]) Steglatro 5 mg tablet MARTIR ([facility]) gabapentin 400 MG Oral Capsule [facility] ([facility]) Clonazepam 0.5 MG Oral Tablet M[facility]IR ([facility]) Cephalexin 500 MG Oral Capsule M[facility] ([facility]) celecoxib 200 MG Oral Capsule [facility] ([facility]) BD Ultra-Fine Mini Pen Needle 31 gauge x 3/16" USE DIRECTED with insulin pens [facility]IR [facility] BD Insulin Syringe Ultra-Fine 1 mL 30 ga uge x 1/2" use as directed to inject insulin five times a day ud ATHE NA ([facility]) Amoxicillin 500 MG Oral Capsule MARTIR ([facility]) Acetaminophen 300 MG / Codeine Phosphate 30 MG Oral Tablet M[facility]IR ([facility]) Trazodone Hydrochloride 50 MG Oral Tablet MARTIR ([facility]) gabapentin 400 MG Oral Capsule MARTIR ([facility]) Cephalexin 500 MG Oral Capsule MARTIR ([facility]) celecoxib 200 MG Oral Capsule MARTIR ([facility]) Amoxicillin 500 MG Oral Capsule MARTIR ([facility]) Acetaminophen 300 MG / Codeine Phosphate 30 MG Oral Tablet [facility] ([facility]) Cholecalciferol 2000 UNT Oral Capsule [facility] ([facility]) Trazodone Hydrochloride 50 MG Oral Tablet [facility] ([facility]) Trazodone Hydrochloride 100 MG Oral Tablet MARTIR ([facility]) tramadol hydrochloride 50 MG Oral Tablet M[facility]IR ([facility]) tizanidine 2 MG Oral Tablet M[facility] ([facility]) Steglatro 5 mg tablet MARTIR ([facility]) Steglatro 15 mg tablet ATHEN A ([facility]) Risperidone 4 MG Oral Tablet M[facility] ([facility]) quetiapine 400 MG Oral Tablet M[facility] ([facility]) pen needles mis [id number] [facility] [place] ([facility]) OneTouch Ultra2 Meter kit AT [facility] ([facility]) OneTouch Ultra2 Meter USE DIRECTED TO TEST BLOOD SUGAR THREE TIMES DAILY MARTIR ([facility]) OneTouch Ultra Blue Test Strip [facility] ([facility]) Nicotine 2 MG Chewing Gum AT [facility] ([facility]) Naltrexone hydrochloride 50 MG Oral Tablet [facility] ([facility]) Metformin hydrochloride 850 MG Oral Tablet [facility] ([facility]) meloxicam 15 MG Oral Tablet [facility] ([facility]) empagliflozin 25 MG Oral Tablet [Jardiance] M[facility]IR ([facility]) Steglatro 5 mg tablet TAKE ONE TABLET BY MOUTH ONCE DAILY MARTIR ([facility]) Nicotine 2 MG Chewing Gum AT [facility] ([facility]) meloxicam 15 MG Oral Tablet [facility] ([facility]) Levofloxacin 500 MG Oral Tablet [facility] ([facility]) Acetaminophen 325 MG / Hydrocodone Bitartrate 5 MG Oral Tablet [facility]IR ([facility]) gabapentin 400 MG Oral Capsule [facility]IR ([facility]) Steglatro 5 mg tablet TAKE ONE TABLET BY MOUTH ONCE DAILY MARTIR ([facility]) Levofloxacin 500 MG Oral Tablet MARTIR ([facility]) Acetaminophen 325 MG / Hydrocodone Bitartrate 5 MG Oral Tablet [facility] [facility]) Steglatro 5 mg tablet TAKE ONE TABLET BY MOUTH ONCE DAILY [facility] ([facility]) Levofloxacin 500 MG Oral Tablet [facility] ([facility]) Acetaminophen 325 MG / Hydrocodone Bitartrate 5 MG Oral Tablet [facility] ([facility]) gabapentin 300 MG Oral Capsule [facility] ([facility]) Steglatro 15 mg tablet ATHEN A ([facility]) Risperidone 4 MG Oral Tablet [facility] ([facility]) quetiapine 400 MG Oral Tablet [facility] ([facility]) quetiapine 300 MG Oral Tablet [facility] ([facility]) pen needles mis [id number] [place] [place] ([facility]) OneTouch Ultra2 Meter kit AT [facility] ([facility]) OneTouch Ultra2 Meter USE DIRECTED TO TEST BLOOD SUGAR THREE TIMES DAILY [facility] ([facility]) OneTouch Ultra Test strips ONE MISCELLANEOUS THREE TIMES A DAY N EEDED [facility] ([facility]) OneTouch Ultra Blue Test Strip [facility] ([facility]) OneTouch Delica Plus Lancet 33 gauge [facility] ([facility]) Nicotine 2 MG Chewing Gum AT [facility] ([facility]) Naltrexone hydrochloride 50 MG Oral Tablet [facility] ([facility]) Metformin hydrochloride 850 MG Oral Tablet [facility] ([facility]) meloxicam 15 MG Oral Tablet [facility] ([facility]) empagliflozin 25 MG Oral Tablet [Jardiance] [facility] ([facility]) insulin syrg mis 1ml/29g [facility] [place] ([facility]) insulin syrg mis 0.5/31g [place] [place] ([facility]) gabapentin 400 MG Oral Capsule [facility] ([facility]) Cephalexin 500 MG Oral Capsule [facility] ([facility]) celecoxib 200 MG Oral Capsule [facility] ([facility]) Amoxicillin 500 MG Oral Capsule [facility] ([facility]) Acetaminophen 300 MG / Codeine Phosphate 30 MG Oral Tablet [facility] ([facility]) Cholecalciferol 2000 UNT Oral Capsule [facility] ([facility]) Ergocalciferol 91529 UNT Oral Capsule [facility] ([facility]) Trazodone Hydrochloride 50 MG Oral Tablet [facility] ([facility]) Trazodone Hydrochloride 100 MG Oral Tablet [facility] ([facility]) tramadol hydrochloride 50 MG Oral Tablet [facility] ([facility]) tizanidine 2 MG Oral Tablet [facility] ([facility]) Steglatro 5 mg tablet [facility] ([facility]) Steglatro 15 mg tablet ATHEN A ([facility]) Risperidone 4 MG Oral Tablet [facility] ([facility]) quetiapine 400 MG Oral Tablet [facility] ([facility]) quetiapine 300 MG Oral Tablet [facility] ([facility]) pen needles mis [id number] [place] [place] ([facility]) OneTouch Ultra2 Meter kit AT [place] ([facility]) OneTouch Ultra2 Meter USE DIRECTED TO TEST BLOOD SUGAR THREE TIMES DAILY [facility] ([facility]) OneTouch Ultra Test strips ONE MISCELLANEOUS THREE TIMES A DAY N EEDED [facility] ([facility]) OneTouch Ultra Blue Test Strip [facility] ([facility]) OneTouch Delica Plus Lancet 33 gauge [facility] ([facility]) Nicotine 2 MG Chewing Gum AT [facility] ([facility]) Naltrexone hydrochloride 50 MG Oral Tablet [facility] ([facility]) Metformin hydrochloride 850 MG Oral Tablet [facility] ([facility]) meloxicam 15 MG Oral Tablet [facility] ([facility]) empagliflozin 25 MG Oral Tablet [Jardiance] [facility] ([facility]) insulin syrg mis 1ml/29g [place] [place] ([facility]) insulin syrg mis 0.5/31g [place] [place] ([facility])
[2021-05-07] MEDS ORDERED: HALOPERIDOL 5MG/ML VIAL (J1630 PER 1) IM ONE (19:00)
[2021-05-07] MEDS ORDERED: diphenhydrAMINE 50MG/ML VIAL (J1200) IM ONE (19:00)
[2021-05-07] MEDS ORDERED: LORazepam 2 MG/ML VIAL IM ONE (19:00)
[2021-05-07 21:12] LABS: HEMATOCRIT 42.9 % (42.0-52.0); HEMOGLOBIN 14.3 g/dl (13.5-17.5); MEAN CORPUSCULAR HEMOGLOBIN 28.5 pg (27.0-33.0); MEAN CORPUSCULAR HGB CONC 33.3 g/dl (32.0-36.5); MEAN CORPUSCULAR VOLUME 85.5 fl (80.0-96.0); PLATELET COUNT, AUTOMATED 251 10^3/uL (150-450); RED BLOOD COUNT 5.02 10^6/uL (4.30-6.10); WHITE BLOOD COUNT 7.9 10^3/uL (4.0-10.0)
[2021-05-07 21:39] LABS: ACETAMINOPHEN LEVEL < 2.0 UG/ML (10.0-30.0); ALBUMIN 4.5 GM/DL (3.2-5.2); ALT/SGPT 32 U/L (12-78); BILIRUBIN,DIRECT 0.2 MG/DL (0.0-0.2); BILIRUBIN,TOTAL 0.6 MG/DL (0.2-1.0); BLOOD UREA NITROGEN 16 MG/DL (7-18); CALCIUM LEVEL 9.7 MG/DL (8.5-10.1); CARBON DIOXIDE LEVEL 25 MEQ/L (21-32); CHLORIDE LEVEL 105 MEQ/L (98-107); CREATININE FOR GFR 1.02 MG/DL (0.70-1.30); ETHYL ALCOHOL (ETHANOL) < 0.003 % (0.000-0.010); GLOMERULAR FILTRATION RATE > 60.0 (>56); GLUCOSE, FASTING 83 MG/DL (70-100); POTASSIUM SERUM 3.7 MEQ/L (3.5-5.1); SALICYLATE LEVEL < 1.7 MG/DL (5.0-30.0); SODIUM LEVEL 138 MEQ/L (136-145); TOTAL PROTEIN 8.9 GM/DL (6.4-8.2)
[2021-05-07 22:02] VITALS: BP 138/67
[2021-05-07 22:21] LABS: AMPHETAMINES LEVEL URINE NEGATIVE (NEGATIVE); BARBITURATES URINE NEGATIVE (NEGATIVE); BENZODIAZEPINES URINE NEGATIVE (NEGATIVE); CANNABINOIDS URINE NEGATIVE (NEGATIVE); COCAINE METABOLITE URINE NEGATIVE (NEGATIVE); METHADONE URINE NEGATIVE (NEGATIVE); OPIATES URINE NEGATIVE (NEGATIVE); PHENCYCLIDINE URINE NEGATIVE (NEGATIVE)
--- OUTSIDE RECORDS SUMMARY | 2021-05-07 23:01 | CCD ---
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 Name Role Phone Rio Irizarry MD [...] KURTIS MACDONALD Unavailable Unavailab Kera Barriga Unavailable DunkertonFredrick MD Unavailable Unavaila ble DunkertonFredrick MD Unavailable Unavaila ble DunkertonFredrick MD Unavailable Unavaila ble Dunkerton, Fredrick Nguyen MD Unavailable Unavaila ble Dunkerton, Fredrick Nguyen MD Unavailable Unavaila ble Dunkerton, Fredrick Nguyen MD Unavailable Unavaila ble Dunkerton, Fredrick Nguyen MD Unavailable Unavaila ble Dunkerton, Fredrick Nguyen MD Unavailable Unavaila ble Dunkerton, Fredrick Nguyen MD Unavailable Unavaila ble Dunkerton, Fredrick Nguyen MD Unavailable Unavaila ble Dunkerton, Fredrick Nguyen MD Unavailable Unavaila ble Dunkerton, Fredrick Nguyen MD Unavailable Unavaila ble Daylin Waldrop Unavailable Jumalon, M Luz PROPERTY CONDITION ASSESSOR Unavailable Unavailable Jumalon, M Luz PROPERTY CONDITION ASSESSOR Unavailable Unavailable Jumalon, M Luz PROPERTY CONDITION ASSESSOR Unavailable Unavailable Jumalon, M Luz PROPERTY CONDITION ASSESSOR Unavailable Unavailable Jumalon, M Luz PROPERTY CONDITION ASSESSOR Unavailable Unavailable Jumalon, M Luz PROPERTY CONDITION ASSESSOR Unavailable Unavailable Jumalon, M Luz PROPERTY CONDITION ASSESSOR Unavailable Unavailable Jumalon, M Luz PROPERTY CONDITION ASSESSOR Unavailable Unavailable Jumalon, M Luz PROPERTY CONDITION ASSESSOR Unavailable Unavailable Jumalon, M Luz PROPERTY CONDITION ASSESSOR Unavailable Unavailable Jumalon, M Luz PROPERTY CONDITION ASSESSOR Unavailable Unavailable Jumalon, M Luz PROPERTY CONDITION ASSESSOR Unavailable Unavailable Jumalon, M Luz PROPERTY CONDITION ASSESSOR Unavailable Unavailable Jumalon, M Luz PROPERTY CONDITION ASSESSOR Unavailable Unavailable Jumalon, M Luz PROPERTY CONDITION ASSESSOR Unavailable Unavailable Jumalon, M Luz PROPERTY CONDITION ASSESSOR Unavailable Unavailable Jumalon, M Luz PROPERTY CONDITION ASSESSOR Unavailable Unavailable Jumalon, M Luz PROPERTY CONDITION ASSESSOR Unavailable Unavailable Jumalon, M Luz PROPERTY CONDITION ASSESSOR Unavailable Unavailable Jumalon, M Luz PROPERTY CONDITION ASSESSOR Unavailable Unavailable Jumalon, M Luz PROPERTY CONDITION ASSESSOR Unavailable Unavailable Jumalon, M Luz PROPERTY CONDITION ASSESSOR Unavailable Unavailable Jumalon, M Luz PROPERTY CONDITION ASSESSOR Unavailable Unavailable Jumalon, M Luz PROPERTY CONDITION ASSESSOR Unavailable Unavailable Jumalon, M Luz PROPERTY CONDITION ASSESSOR Unavailable Unavailable Jumalon, M Luz PROPERTY CONDITION ASSESSOR Unavailable Unavailable Jumalon, M Luz PROPERTY CONDITION ASSESSOR Unavailable Unavailable Jumalon, M Luz PROPERTY CONDITION ASSESSOR Unavailable Unavailable Jumalon, M Luz PROPERTY CONDITION ASSESSOR Unavailable Unavailable Jumalon, M Luz PROPERTY CONDITION ASSESSOR Unavailable Unavailable AUSTEN, H CARLOS ALBERTO CONTINUOUS IMPROVEMENT SPECIALIST Unavailable Unavailable AUSTEN, H CARLOS ALBERTO CONTINUOUS IMPROVEMENT SPECIALIST Unavailable Unavailable AUSTEN, H CARLOS ALBERTO CONTINUOUS IMPROVEMENT SPECIALIST Unavailable Unavailable AUSTEN, H CARLOS ALBERTO CONTINUOUS IMPROVEMENT SPECIALIST Unavailable Unavailable AUSTEN, H CARLOS ALBERTO CONTINUOUS IMPROVEMENT SPECIALIST Unavailable Unavailable AUSTEN, H CARLOS ALBERTO CONTINUOUS IMPROVEMENT SPECIALIST Unavailable Unavailable AUSTEN, H CARLOS ALBERTO CONTINUOUS IMPROVEMENT SPECIALIST Unavailable Unavailable AUSTEN, H CARLOS ALBERTO CONTINUOUS IMPROVEMENT SPECIALIST Unavailable Unavailable AUSTEN, H CARLOS ALBERTO CONTINUOUS IMPROVEMENT SPECIALIST Unavailable Unavailable MD MIRTHA LOBATO Unavailable Unavailable [...] Unavailable Tre Lara MD Unavailable Unavailable Tre aLra MD Unavailable Unavailable Tre Lara MD Unavailable Unavailable Tre Lara MD Unavailable Unavailable Ter Lara MD Unavailable Unavailable Tre Lara MD [...] Bolla, S Pipo MD Unavailable Unavailable THOMAS, BUDDHIST MD Unavailable Unavailable THOMAS, BUDDHIST MD Unavailable Unavailable THOMAS, BUDDHIST MD Unavailable Unavailable THOMAS, BUDDHIST MD Unavailable Unavailable THOMAS, BUDDHIST MD Unavailable Unavailable THOMAS, BUDDHIST MD Unavailable Unavailable THOMAS, BUDDHIST MD Unavailable Unavailable THOMAS, BUDDHIST MD Unavailable Unavailable Mcnamara, E Amna CONTINUOUS IMPROVEMENT SPECIALIST Unavailable Unavailable Mcnamara, E Amna CONTINUOUS IMPROVEMENT SPECIALIST Unavailable Unavailable Mcnamara, E Amna CONTINUOUS IMPROVEMENT SPECIALIST Unavailable Unavailable Mcnamara, E Amna CONTINUOUS IMPROVEMENT SPECIALIST Unavailable Unavailable Mcnamara, E Amna CONTINUOUS IMPROVEMENT SPECIALIST Unavailable Unavailable Mcnamara, E Amna CONTINUOUS IMPROVEMENT SPECIALIST Unavailable Unavailable Mcnamara, E Amna CONTINUOUS IMPROVEMENT SPECIALIST Unavailable Unavailable Mcnamara, E Amna CONTINUOUS IMPROVEMENT SPECIALIST Unavailable Unavailable Mcnamara, E Amna CONTINUOUS IMPROVEMENT SPECIALIST Unavailable Unavailable Mcnamara, E Amna CONTINUOUS IMPROVEMENT SPECIALIST Unavailable Unavailable Mcnamara, E Amna CONTINUOUS IMPROVEMENT SPECIALIST Unavailable Unavailable Mcnamara, E Amna CONTINUOUS IMPROVEMENT SPECIALIST Unavailable Unavailable Mcnamara, E Amna CONTINUOUS IMPROVEMENT SPECIALIST Unavailable Unavailable Mcnamara, E Amna CONTINUOUS IMPROVEMENT SPECIALIST Unavailable Unavailable Mcnamara, E Amna CONTINUOUS IMPROVEMENT SPECIALIST Unavailable Unavailable Mcnamara, E Amna CONTINUOUS IMPROVEMENT SPECIALIST Unavailable Unavailable Mcnamara, E Amna CONTINUOUS IMPROVEMENT SPECIALIST Unavailable Unavailable Mcnamara, E Amna CONTINUOUS IMPROVEMENT SPECIALIST Unavailable Unavailable Mcnamara, E Amna CONTINUOUS IMPROVEMENT SPECIALIST Unavailable Unavailable Mcnamara, E Amna CONTINUOUS IMPROVEMENT SPECIALIST Unavailable Unavailable Mcnamara, E Amna CONTINUOUS IMPROVEMENT SPECIALIST Unavailable Unavailable Mcnamara, E Amna CONTINUOUS IMPROVEMENT SPECIALIST Unavailable Unavailable Mcnamara, E Amna CONTINUOUS IMPROVEMENT SPECIALIST Unavailable Unavailable Ze, A Sanjuana PROPERTY CONDITION ASSESSOR Unavailable Unavailable Fleming, A Sanjuana PROPERTY CONDITION ASSESSOR Unavailable Unavailable Fleming, A Sanjuana PROPERTY CONDITION ASSESSOR Unavailable Unavailable Fleming, A Sanjuana PROPERTY CONDITION ASSESSOR Unavailable Unavailable Fleming, A Sanjuana PROPERTY CONDITION ASSESSOR Unavailable Unavailable Fleming, A Sanjuana PROPERTY CONDITION ASSESSOR Unavailable Unavailable Fleming, A Sanjuana PROPERTY CONDITION ASSESSOR Unavailable Unavailable Fleming, A Sanjuana PROPERTY CONDITION ASSESSOR Unavailable Unavailable Fleming, A Sanjuana PROPERTY CONDITION ASSESSOR Unavailable Unavailable Fleming, A Sanjuana PROPERTY CONDITION ASSESSOR Unavailable Unavailable Fleming, A Sanjuana PROPERTY CONDITION ASSESSOR Unavailable Unavailable Fleming, A Sanjuana PROPERTY CONDITION ASSESSOR Unavailable Unavailable Fleming, A Sanjuana PROPERTY CONDITION ASSESSOR Unavailable Unavailable Fleming, A Sanjuana PROPERTY CONDITION ASSESSOR Unavailable Unavailable Fleming, A Sanjuana PROPERTY CONDITION ASSESSOR Unavailable Unavailable Fleming, A Sanjuana PROPERTY CONDITION ASSESSOR Unavailable Unavailable Fleming, A Sanjuana PROPERTY CONDITION ASSESSOR Unavailable Unavailable Fleming, A Sanjuana PROPERTY CONDITION ASSESSOR Unavailable Unavailable Fleming, A Sanjuana PROPERTY CONDITION ASSESSOR Unavailable Unavailable Fleming, A Sanjuana PROPERTY CONDITION ASSESSOR Unavailable Unavailable Fleming, A Sanjuana PROPERTY CONDITION ASSESSOR Unavailable Unavailable Fleming, A Sanjuana PROPERTY CONDITION ASSESSOR Unavailable Unavailable Fleming, A Sanjuana PROPERTY CONDITION ASSESSOR Unavailable Unavailable Fleming, A Sanjuana PROPERTY CONDITION ASSESSOR Unavailable Unavailable Fleming, A Sanjuana PROPERTY CONDITION ASSESSOR Unavailable Unavailable Fleming, A Sanjuana PROPERTY CONDITION ASSESSOR Unavailable Unavailable Fleming, A Sanjuana PROPERTY CONDITION ASSESSOR Unavailable Unavailable Fleming, A Sanjuana PROPERTY CONDITION ASSESSOR Unavailable Unavailable Fleming, A Sanjuana PROPERTY CONDITION ASSESSOR Unavailable Unavailable Fleming, A Sanjuana PROPERTY CONDITION ASSESSOR Unavailable Unavailable Fleming, A Sanjuana PROPERTY CONDITION ASSESSOR Unavailable Unavailable Gilson Blackwell MD Unavailable Unavailable [...] is protected by Article 27-F of the [facility] Public Health law. If you continue you may have access to information: Regarding HIV / AIDS; Provided by facilities licensed or operated by the [facility] Office of Mental Health; or Provided by the [facility] Office for People With Developmental Disabilities. If such information is present, then the following [facility] mandated warning applies: This information [...] law may result in a fine or half-way sentence or both. A general authorization for the release of medical or other information is NOT sufficient authorization for further disc losure. Allergies and Adverse Reactions Type Description Substance Reaction Status Data Source(s ) Propensity to adverse reactions NO KNOWN ALLERGIES NO KNOWN ALLERGIES [facility] Propensity to adverse reactions RISPERIDONE RISPERIDONE Unknown [facility] Propensity to adverse reactions RISPERIDONE Risperidone Rash [facility] Propensity to adverse reactions NO KNOWN ALLERGIES NO [facility] Propensity to adverse reactions NO ALLERGIES ON FILE NO ALLERGIES ON FILE [facility] Allergy to substance Allergy to substance Allergy to substance [facility] ([facility]) Allergy to substance Allergy to substance Allergy to substance [facility] ([facility]) Family History Family Member Name Family Member Gender Family Member Status Date o f Status Description Data Source(s) Unknown Unknown Problem [facility] ([facility]) Unknown Unknown Problem [facility] ([facility]) Encounters Encounter Providers Location Date Indications Data Source(s ) Pipo Lara MD: [id number] [address], [facility] [address], Ph. Attender: Pipo Lara MD [place] - [facility] 04/25/2021 12:00:00 AM EDT [facility] ([facility]) Pipo Lara MD: [address] [facility] [address], [address] [place], [place] [phone], Ph. [phone] Attender: Pipo Lara MD [place] - [facility] 04/22/2021 12:00:00 AM EDT [facility] ([facility]) Pipo Lara MD: [address] [facility] [address], [place] [address], Ph. [phone] Attender: Pipo Lara MD [place] - [facility] 04/22/2021 12:00:00 AM EDT [facility]IR ([facility]) Extended Individual Psychotherapy - 45 min Attender: Nhi Waldrop [facility] 04/15/2021 01:00:00 AM EDT - 04/15/2021 01:00:00 AM EDT [facility] ([facility]) Attender: Daylin Waldrop 04/15/2021 12:00:00 A M EDT [facility] ([facility]) Luz Dallas, CONTINUOUS IMPROVEMENT SPECIALIST: [address], [place] [address], Ph. Attender: Luz Dallas [facility] 04/11/2021 12:00:00 AM EDT ATHGilson NA ([facility]) Luz Dallas, CONTINUOUS IMPROVEMENT SPECIALIST: [address], [place] [address], Ph. Attender: Luz Dallas [facility] 04/11/2021 12:00:00 AM EDT ATHGilson GARCIA ([facility]) Luz Dallas, CONTINUOUS IMPROVEMENT SPECIALIST: [address], [place] [address], Ph. [facility] 04/11/2021 12:00:00 AM EDT ATHE NA ([facility]) Attender: Daylin Jaimekatina 03/21/2021 12:00:00 A M EDT [facility] ([facility]) Brief Individual Psychotherapy - 30 min Attender: Daylin Juan Ramon barragan [facility] 03/19/2021 12:45:00 PM EDT - 03/19/2021 12:45:00 PM EDT [facility] ([facility]) Sanjuana Kunz [facility]: [address] [place] [address], Ph. Attender: Sanjuana [facility] 03/15/2021 12:00:00 AM EDT [facility] ([facility]) Inpatient Attender: NEY Guillen nder: CAREY CHARLES MDAdmitter: NEY THOMAS MDReferrer: CAREY CHARLES MD [id number] 03/02/2021 12:00:00 AM EDT - 03/06/2021 02:10:00 PM EDT [facility] Patient discharged. Luz Dallas, CONTINUOUS IMPROVEMENT SPECIALIST: [address], [place] [address], Ph. Attender: Luz Dallas [facility] 02/28/2021 12:00:00 AM EDT JORDYN GARCIA ([facility]) Luz Dallas, CONTINUOUS IMPROVEMENT SPECIALIST: [address], [facility] [address], Ph. [facility]: [facility] 02/28/2021 12:00:00 AM EDT ATHGilson GARCIA ([facility]) Luz Dallas, CONTINUOUS IMPROVEMENT SPECIALIST: [address], [place] [address], Ph. Attender: Luz Dallas [facility] - [facility] 02/28/2021 12:00:00 AM EDT ATHGilson GARCIA ([facility]) Luz Dallas, CONTINUOUS IMPROVEMENT SPECIALIST: [address], [place] [address], Ph. Attender: Luz Dallas [facility] - [facility] 02/28/2021 12:00:00 AM EDT ATHGilson GARCIA ([facility]) Emergency Attender: TRAE GARCIAConsultant: STAFF NON 02/27/2021 10:13:00 PM EDT - 02/28/2021 12:22:00 AM EDT [facility] Patient discharged. Brief Individual Psychotherapy - 30 min Attender: Daylin barragan [facility] 02/26/2021 01:30:00 AM EDT - 02/26/2021 01:30:00 AM EDT [facility] ([facility]) Attender: Daylin Waldrop 02/26/2021 12:00:00 A M EDT [facility] ([facility]) Pipo Lara MD: [address], [place] [address], Ph. Attender: Pipo SHEPPARD - [facility] 02/05/2021 12:00:00 AM EDT [facility] ([facility]) Pipo Lara MD: [address], [place] [address], Ph. Attender: Pipo SHEPPARD - [facility] 02/05/2021 12:00:00 AM EDT [facility] ([facility]) Pipo Lara MD: [address], [address], [place] [address], Ph. Attender: Pipo SHEPPARD - [facility] 02/05/2021 12:00:00 AM EDT [facility] ([facility]) Pipo Lara MD: [address], [address], [place] [address], Ph. Attender: Pipo SHEPPARD - [facility] 02/05/2021 12:00:00 AM EDT [facility] ([facility]) Pipo Lara MD: [address], [address], [place] [address], Ph. Attender: Pipo SHEPPARD - [facility] 02/05/2021 12:00:00 AM EDT [facility] ([facility]) Emergency Attender: Cheo Landis MDConsultant: STAFF NON 02/01/2021 11:44:00 PM EDT - 02/02/2021 03:48:00 AM EDT [facility] Patient discharged. Outpatient Attender: CARLOS ALBERTO BOYCE NP [facility] Chris cabrera 01/31/2021 03:00:00 AM EDT - 01/31/2021 03:00:00 AM EDT [facility] ([facility]) Extended Individual Psychotherapy - 45 min Attender: Nhi Waldrop [facility] 01/31/2021 02:00:00 AM EDT - 01/31/2021 02:00:00 AM EDT [facility] ([facility]) Attender: CARLOS ALBERTO BOYCE NP 01/31/2021 12:00:00 AM EDT [facility] ([facility]) Attender: Daylin Waldrop 01/31/2021 12:00:00 A M EDT [facility] ([facility]) SHANNON Jay-BC: [address] [place] [address], Ph. Attender: Sanjuana Ze [facility] Medical 01/10/2021 12:00:00 AM EDT [facility] ([facility]) [facility] [address] [place] [address], Ph. Attender: Sanjuana Kunz [facility] Medical 01/10/2021 12:00:00 AM EDT [facility] ([facility]) Outpatient Attender: CARLOS ALBERTO BOYCE NP [facility] Chris l 12/13/2020 03:30:00 AM EDT - 12/13/2020 03:30:00 AM EDT [facility] ([facility]) Attender: CARLOS ALBERTO BOYCE NP 12/13/2020 12:00:00 AM EDT [facility] ([facility]) Kurtis Irizarry MD: [address] [place] [address], Ph. Attender: Kurtis Irizarry MD [facility] Medical 11/28/2020 12:00:00 AM EDT [facility] ([facility]) Kurtis Irizarry MD: [address] [place] [address], Ph. Attender: Kurtis Irizarry MD [facility] Medical 11/28/2020 12:00:00 AM EDT [facility] ([facility]) Kurtis Irizarry MD: [address] [place] [address], Ph. Attender: Kurtis Irizarry MD [facility] Medical 11/28/2020 12:00:00 AM EDT [facility] ([facility]) Outpatient Attender: Madhu Blackwell MD [facility] l 11/22/2020 08:00:00 AM EDT - 11/22/2020 08:00:00 AM EDT [facility] ([facility]) Attender: Madhu Blackwell MD 11/22/2020 12:00:00 AM EDT [facility] ([facility]) Emergency Attender: MEDICAL EMERGENCYAttender: MD AMNA VILLANUEVA C[facility] 10/30/2020 09:24:00 AM EDT - 10/30/2020 11:24:00 AM EDT [facility] Patient discharged. Emergency Attender: MD AMNA LOBATO 10/30/2020 09:24:00 AM EDT [facility] Inpatient Attender: MD CHRISTINE Lira nasreen: DO ERIC BRYANTttender: DO CORNELIO Singletonender: MEDICAL EMERGENCYAdmitter: DO ERIC MICHEL [id number] 10/28/2020 04:13:00 PM EDT - 11/06/2020 02:27:00 PM EDT [facility] Patient discharged. Inpatient Attender: DOCTOR UNKNOWNAdmi tter: DO ERIC MICHELReferrer: CATHERINE GREGG MD 10/28/2020 04:13:00 PM EDT [facility] Outpatient Attender: CARLOS ALBERTO BOYCE NP [facility] Chris cabrera 10/18/2020 11:00:00 AM EDT - 10/18/2020 11:00:00 AM EDT [facility] ([facility]) Attender: CARLOS ALBERTO BOYCE NP 10/18/2020 12:00:00 AM EDT [facility] ([facility]) Brief Individual Psychotherapy - 30 min Attender: Kera jordan [facility] 10/08/2020 12:00:00 PM EDT - 10/08/2020 12:00:00 PM EDT [facility] ([facility]) Attender: Kera Nielsen 10/08/2020 12:00:00 AM EDT [facility] ([facility]) Outpatient Attender: CARLOS ALBERTO BOYCE NP [facility] Chris cabrera 10/01/2020 02:30:00 AM EDT - 10/01/2020 02:30:00 AM EDT [facility] ([facility]) Attender: CARLOS ALBERTO BOYCE NP 10/01/2020 12:00:00 AM EDT [facility] ([facility]) IP PSYCH Attender: Patrick berger MDAttender: BALJIT BOLDEN MDAdmitter: Patrick Matre MDConsultant: ROYAL GÓMEZ MD [id number] 09/01/2020 11:07:00 PM EST - 09/06/2020 01:00:00 PM EST [facility] Patient discharged. TEMPMHCTelemed--Crisis Brief Attender: Daylin Waldrop [facility] 08/27/2020 02:45:00 AM EST - 08/27/2020 02:45:00 AM EST [facility] ([facility]) Attender: Daylin Waldrop 08/27/2020 12:00:00 A M EST [facility] ([facility]) Attender: Daylin Waldrop 08/03/2020 12:00:00 A M EST [facility] ([facility]) Brief Individual Psychotherapy - 30 min Attender: Daylin barragan [facility] 08/02/2020 11:00:00 AM EST - 08/02/2020 11:00:00 AM EST [facility] ([facility]) Outpatient Attender: CARLOS ALBERTO BOYCE NP [facility] Chris cabrera 07/10/2020 01:00:00 AM EST - 07/10/2020 01:00:00 AM EST [facility] ([facility]) Attender: CARLOS ALBERTO BOYCE NP 07/10/2020 12:00:00 AM EST [facility] ([facility]) Brief Individual Psychotherapy - 30 min Attender: Daylin barragan [facility] 06/14/2020 12:00:00 PM EST - 06/14/2020 12:00:00 PM EST [facility] ([facility]) Attender: Daylin Waldrop 06/14/2020 12:00:00 A M EST [facility] ([facility]) MAIKEL CarltonBC: [address], [place] [address], Ph. Attender: Amna Mcnamara NP [facility] Medical 06/13/2020 12:00:00 AM EST [facility] ([facility]) MAIKEL CarltonBC: [address], [place] [address], Ph. Attender: Amna Mcnamara NP [facility] Medical 06/13/2020 12:00:00 AM EST [facility] ([facility]) GALEN Carlton: [address], [place] [address], Ph. Attender: Amna Mcnamara NP [facility] Medical 06/13/2020 12:00:00 AM EST [facility] ([facility]) MAIKEL CarltonBC: [address], [place] [address], Ph. Attender: Amna Mcnamara NP [facility] Medical 06/13/2020 12:00:00 AM EST [facility] ([facility]) Outpatient Attender: CARLOS ALBERTO BOYCE NP [facility] Chris l 06/12/2020 03:30:00 AM EST - 06/12/2020 03:30:00 AM EST [facility] ([facility]) Attender: CARLOS ALBERTO BOYCE NP 06/12/2020 12:00:00 AM EST [facility] ([facility]) Unknown [address] [facility] [address] 06/07/2020 12:00:00 AM EST eCW1 (Critical access hospital) Brief Individual Psychotherapy - 30 min Attender: Daylin barragan [facility] 04/24/2020 12:00:00 PM EDT - 04/24/2020 12:00:00 PM EDT [facility] Attender: Daylin Waldrop 04/24/2020 12:00:00 A M EDT [facility] ([facility]) Outpatient FP 04/18/2020 02:50:00 PM EDT [facility] Outpatient Attender: CARLOS ALBERTO BOYCE NP [facility] Chris cabrera 04/09/2020 03:00:00 AM EDT - 04/09/2020 03:00:00 AM EDT [facility] ([facility]) Attender: CARLOS ALBERTO BOYCE NP 04/09/2020 12:00:00 AM EDT [facility] ([facility]) Brief Individual Psychotherapy - 30 min Attender: Kera jordan [facility] 04/02/2020 02:00:00 AM EDT - 04/02/2020 02:00:00 AM EDT [facility] ([facility]) Attender: Kera Nielsen 04/02/2020 12:00:00 AM EDT [facility] ([facility]) Outpatient FP 03/21/2020 11:10:01 AM EDT [facility] Functional Status Immunizations Vaccine Date Status Description Data Source(s) COVID-19 vaccine, vector-nr, rS-Ad26, PF, 0.5 mL 11/28/2020 04:33:01 PM EDT completed .5 mL [facility]) COVID-19 vaccine, vector-nr, rS-Ad26, PF, 0.5 mL 11/28/2020 04:33:01 PM EDT [facility] vaccine, vector-nr, rS-Ad26, PF, 0.5 mL 11/28/2020 04:33:01 PM EDT completed .5 mL [facility]) COVID-19 VACCINE Lorrie 11/28/2020 12:00:00 AM EDT completed [facility] Vaccine Series Complete: YESThis Data wa s Submitted to [facility] Via [employer]. Medications Medication Brand Name Start Date Product Form Dose Route Admi nistrative Instructions Pharmacy Instructions Status Indications Reaction Description Data Source(s) quetiapine 300 MG Oral Tablet quetiapine 04/02/2021 12:00:00 AM EDT 300 mg by mouth completed <td ID="Medica tionRxNorm_2">[id number]</td><td ID="MedicationMedication_2">quetiapine</td><td ID="MedicationRoute_2">by mouth</td><td ID="MedicationRouteConcept_2">T52028</td><td ID="MedicationStartDate_2">04/02/2021</td><td ID="MedicationStopDate_2">05/02/2021</td><td ID="MedicationDosageFrequency_2">at bedtime</td><td ID="MedicationDuration_2">30</td><td ID="MedicationFormulaStrength_2">300 mg</td><td ID="MedicationDosageForm_2">tablet</td><td ID="MedicationDosageFormCode_2"></td><td ID="MedicationDosageDescription_2"></td><td ID="MedicationMedicationId_2">[id number]</td><td ID="MedicationAccount_2">[id number]</td><td ID="MedicationNpid_2">[id number]</td><td ID="MedicationAuthorFirstName_2">Carlos Alberto</td><td ID="MedicationAuthorLastName_2">Austen</td><td ID="MedicationTaxonomyCode_2">[id number]</td><td ID="MedicationTaxonomyDesc_2">Nurse Practitioner</td><td ID="MedicationPhoneNumber_2">[phone]</td> [facility] ([facility]) Haloperidol 10 MG Oral Tablet haloperidol 04/02/2021 12:00:00 AM EDT 10 mg by mouth completed <td ID="Medica tionRxNorm_4">147962</td><td ID="MedicationMedication_4">haloperidol</td><td ID="MedicationRoute_4">by mouth</td><td ID="MedicationRouteConcept_4">L58949</td><td ID="MedicationStartDate_4">04/02/2021</td><td ID="MedicationStopDate_4">06/01/2021</td><td ID="MedicationDosageFrequency_4">three times a day</td><td ID="MedicationDuration_4">30</td><td ID="MedicationFormulaStrength_4">10 mg</td><td ID="MedicationDosageForm_4">tablet</td><td ID="MedicationDosageFormCode_4"></td><td ID="MedicationDosageDescription_4"> </td><td ID="MedicationMedicationId_4">[id number]</td><td ID="MedicationAccount_4">[id number]</td><td ID="MedicationNpid_4">[id number]</td><td ID="MedicationAuthorFirstName_4">Carlos Alberto</td><td ID="MedicationAuthorLastName_4">[place]en</td><td ID="MedicationTaxonomyCode_4">[id number]</td><td ID="MedicationTaxonomyDesc_4">Nurse Practitioner</td><td ID="MedicationPhoneNumber_4">[phone]</td> [facility] ([facility]) gabapentin 300 MG Oral Capsule gabapentin 04/02/2021 12:00:00 AM EDT 300 mg by mouth completed <td ID="Medica tionRxNorm_5">756174</td><td ID="MedicationMedication_5">gabapentin</td><td ID="MedicationRoute_5">by mouth</td><td ID="MedicationRouteConcept_5">L06517</td><td ID="MedicationStartDate_5">04/02/2021</td><td ID="MedicationStopDate_5">06/01/2021</td><td ID="MedicationDosageFrequency_5">three times a day</td><td ID="MedicationDuration_5">30</td><td ID="MedicationFormulaStrength_5">300 mg</td><td ID="MedicationDosageForm_5">capsule</td><td ID="MedicationDosageFormCode_5"></td><td ID="MedicationDosageDescription_5"> </td><td ID="MedicationMedicationId_5">[id number]</td><td ID="MedicationAccount_5">[id number]</td><td ID="MedicationNpid_5">[id number]</td><td ID="MedicationAuthorFirstName_5">Carlos Alberto</td><td ID="MedicationAuthorLastName_5">[place]en</td><td ID="MedicationTaxonomyCode_5">[id number]</td><td ID="MedicationTaxonomyDesc_5">Nurse Practitioner</td><td ID="MedicationPhoneNumber_5">[phone]</td> [facility] ([facility]) benztropine mesylate 1 MG Oral Tablet benztropine 04/02/2021 12:00 :00 AM EDT 1 mg by mouth completed <td ID="Me dicationRxNorm_3">855774</td><td ID="MedicationMedication_3">benztropine</td><td ID="MedicationRoute_3">by mouth</td><td ID="MedicationRouteConcept_3">C83858</td><td ID="MedicationStartDate_3">04/02/2021</td><td ID="MedicationStopDate_3">06/01/2021</td><td ID="MedicationDosageFrequency_3">twice a day</td><td ID="MedicationDuration_3">30</td><td ID="MedicationFormulaStrength_3">1 mg</td><td ID="MedicationDosageForm_3">tablet</td><td ID="MedicationDosageFormCode_3"></td><td ID="MedicationDosageDescription_3"></td><td ID="MedicationMedicationId_3">[id number]</td><td ID="MedicationAccount_3">[id number]</td><td ID="MedicationNpid_3">[id number]</td><td ID="MedicationAuthorFirstName_3">Carlos Alberto</td><td ID="MedicationAuthorLastName_3">[place]en</td><td ID="MedicationTaxonomyCode_3">[id number]</td><td ID="MedicationTaxonomyDesc_3">Nurse Practitioner</td><td ID="MedicationPhoneNumber_3">[phone]</td> [facility] ([facility]) Clonazepam 0.5 MG Oral Tablet [Klonopin] Klonopin 04/01/2021 12 :00:00 AM EDT 0.5 mg by mouth completed <td ID="Me dicationRxNorm_1">860889</td><td ID="MedicationMedication_1">Klonopin</td><td ID="MedicationRoute_1">by mouth</td><td ID="MedicationRouteConcept_1">D36786</td><td ID="MedicationStartDate_1">04/01/2021</td><td ID="MedicationStopDate_1">04/16/2021</td><td ID="MedicationDosageFrequency_1">twice a day</td><td ID="MedicationDuration_1">15</td><td ID="MedicationFormulaStrength_1">0.5 mg</td><td ID="MedicationDosageForm_1">tablet</td><td ID="MedicationDosageFormCode_1"></td><td ID="MedicationDosageDescription_1"></td><td ID="MedicationMedicationId_1">[id number]</td><td ID="MedicationAccount_1">[id number]</td><td ID="MedicationNpid_1">[id number]</td><td ID="MedicationAuthorFirstName_1">Carlos Alberto</td><td ID="MedicationAuthorLastName_1">[place]en</td><td ID="MedicationTaxonomyCode_1">[id number]</td><td ID="MedicationTaxonomyDesc_1">Nurse Practitioner</td><td ID="MedicationPhoneNumber_1">[phone]</td> [facility] ([facility]) Clonazepam 0.5 MG Oral Tablet clonazepam 03/08/2021 12:00:00 AM EDT 0.5 mg by mouth completed <td ID="Medica tionRxNorm_1">430665</td><td ID="MedicationMedication_1">clonazepam</td><td ID="MedicationRoute_1">by mouth</td><td ID="MedicationRouteConcept_1">H99248</td><td ID="MedicationStartDate_1">03/08/2021</td><td ID="MedicationStopDate_1">03/23/2021</td><td ID="MedicationDosageFrequency_1">twice a day</td><td ID="MedicationDuration_1">15</td><td ID="MedicationFormulaStrength_1">0.5 mg</td><td ID="MedicationDosageForm_1">tablet</td><td ID="MedicationDosageFormCode_1"></td><td ID="MedicationDosageDescription_1"></td><td ID="MedicationMedicationId_1">[id number]</td><td ID="MedicationAccount_1">[id number]</td><td ID="MedicationNpid_1">[id number]</td><td ID="MedicationAuthorFirstName_1">Tio</td><td ID="MedicationAuthorLastName_1">Mares</td><td ID="MedicationTaxonomyCode_1">[id number]</td><td ID="MedicationTaxonomyDesc_1">Nurse Practitioner</td><td ID="MedicationPhoneNumber_1">[phone]</td> [facility] ([facility]) Nicotine 2 MG Oral Lozenge Nicotine Efrain crilex 2 MG Mouth/Throat Lozenge (NICORETTE) Nicotine Polacrilex 2 MG Mouth/Throat Lozenge (NICORET TE) 03/06/2021 12:00:00 AM EDT [address] 1 lozenge inside cheek every 2 (two) hours as needed for Smoking cessation [facility] Metformin hydrochloride 500 MG Oral Tablet metFORMIN ( GLUCOPHAGE) tablet 500 mg metFORMIN (GLUCOPHAGE) tablet 500 mg 03/03/2021 09:00:00 AM EDT 500 m g Oral active Type 2 Diabetes Mellitus 500 mg, Oral, 2 Times Daily With Meals, Indications: Type 2 Diabetes Mellitus, First dose on 03/03/21 at 0900, For 30 days [facility] Type 2 Diabetes Mellitus Medication administered onsite Tamsulosin hydrochloride 0.4 MG Oral Capsule tamsulosi n (FLOMAX) capsule 0.4 mg tamsulosin (FLOMAX) capsule 0.4 mg 03/03/2021 09:00:00 AM EDT 0.4 mg Oral active 0.4 mg, Oral, Daily Standard, First dose on 03/03/21 at 0900, For 30 days
Swallow whole. Do not crush, chew or open.
[facility] Medication administered onsite insulin lispro (HumaLOG) injection LOW DOSE EATING INS ULIN patients 1-8 Units [id number] 03/03/2021 08:00:00 AM EDT U Subcutaneous active 1-8 Units, Subcutaneous, Three Times Daily-With Meals, First dose on 03/03/21 at 0800, For 30 days
Nursing MUST open the 'SQ Insulin Dosing Charts' Sidebar Report, or, the Patient Summary or Summary Report within the ED.
[facility] Medication administered onsite Insulin Glargine 100 UNT/ML [...] glucose more than 400 mg/dL: notify provider
[facility] Medication administered onsite quetiapine 300 MG Oral [...] on 03/02/21 at 2100, For 30 days [facility] Medication administered onsite benztropine mesylate 1 MG Oral Tablet benztropine (COG ENTIN) tablet 1 mg benztropine (COGENTIN) tablet 1 mg 03/02/2021 09:00:00 PM EDT 1 mg Oral active 1 mg, Oral, 2 Times Daily, First dose on 03/02/21 at 2100, For 30 days [facility] Medication administered onsite gabapentin 300 MG Oral Capsule gabapentin (NEURONTIN) capsule 600 mg gabapentin (NEURONTIN) capsule 600 mg 03/02/2021 09:00:00 PM EDT 600 mg Oral active Fibromyalgia Syndrome 600 mg, Oral, Three Times D aily Standard, Indications: Fibromyalgia Syndrome, First dose on 03/02/21 at 2100, For 30 days [facility] Fibromyalgia Syndrome Medication administered onsite Baclofen 10 MG Oral Tablet baclofen (LIORESAL) tablet 10 mg baclofen (LIORESAL) tablet 10 mg 03/02/2021 09:00:00 PM EDT 10 mg Oral activ e 10 mg, Oral, 2 Times Daily, First dose on 03/02/21 at 2100, For 30 days [facility] Medication administered onsite Clonazepam 0.5 MG Oral Tablet clonazePAM (KLONOPIN) ta blet 0.5 mg clonazePAM (KLONOPIN) tablet 0.5 mg 03/02/2021 07:12:17 PM EDT 0.5 mg Oral active 0.5 mg, Oral, Daily PRN, anxiety, Starting on Sat at 1912, For 30 days [facility] Medication administered onsite Glucagon 1 MG Injection glucagon (human recombinant) ( GLUCAGEN) injection 1 mg glucagon (human recombinant) (GLUCAGEN) injection 1 mg 03/02/2021 07:12:16 PM EDT 1 mg Intramuscular active 1 mg, Intramuscular, PRN, for glucose <55 without IV access, Starting on 03/02/21 at 1912, For 30 days [facility] Medication administered onsite Glucose 0.417 MG/MG Oral Gel glucose (GLUTOSE) 40 % or al gel 15 g glucose (GLUTOSE) 40 % oral gel 15 g 03/02/2021 07:12:16 PM EDT 15 g Oral active 15 g, Oral, PRN, Low blood s ugar, for gluose 55-69 mg/dl and able to take PO, Starting on 03/02/21 at 1912, For 30 days [facility] Medication administered onsite dextrose 50 % IV solution 25 mL [id number] 03/02/2021 07:12:16 PM E DT 25 mL Intravenous active 25 mL, Intrav enous, PRN, Other, blood glucose <55, Starting on 03/02/21 at 1912, For 30 days
Not for midline administration.
[facility] Medication administered onsite Hydroxyzine Hydrochloride 50 MG Oral Tablet hydrOXYzin e (ATARAX) tablet 50 mg hydrOXYzine (ATARAX) tablet 50 mg 03/02/2021 07:02:30 PM EDT 50 mg Oral active 50 mg, Oral, Every 6 hours PRN, Anxiety, Sleep, Starting on 03/02/21 at 1902, For 30 days [facility] Medication administered onsite Nicotine 2 MG Oral Lozenge nicotine (NICORETTE) lozeng e 2 mg nicotine (NICORETTE) lozenge 2 mg 03/02/2021 07:02:20 PM EDT 2 mg Mouth/Th roat active 2 mg, Mouth/Throat, Every 2 hours PRN, Smoking cessation, Starting on 03/02/21 at 1902, For 30 days
Should not be chewed or swallowed; allow to dissolve slowly (~20-30 minutes)
[facility] Medication administered onsite Acetaminophen 325 MG Oral [...] mg from all sources in 24 hrs.
[facility] Medication administered onsite Clonazepam 0.5 MG Oral Tablet [Klonopin] Klonopin 02/21/2021 12 :00:00 AM EDT 0.5 mg by mouth completed <td ID="Me dicationRxNorm_3">081279</td><td ID="MedicationMedication_3">Klonopin</td><td ID="MedicationRoute_3">by mouth</td><td ID="MedicationRouteConcept_3">M62011</td><td ID="MedicationStartDate_3">02/21/2021</td><td ID="MedicationStopDate_3">03/08/2021</td><td ID="MedicationDosageFrequency_3">twice a day</td><td ID="MedicationDuration_3">15</td><td ID="MedicationFormulaStrength_3">0.5 mg</td><td ID="MedicationDosageForm_3">tablet</td><td ID="MedicationDosageFormCode_3"></td><td ID="MedicationDosageDescription_3"></td><td ID="MedicationMedicationId_3">[id number]</td><td ID="MedicationAccount_3">[id number]</td><td ID="MedicationNpid_3">[id number]</td><td ID="MedicationAuthorFirstName_3">Carlos Alberto</td><td ID="MedicationAuthorLastName_3">[place]en</td><td ID="MedicationTaxonomyCode_3">[id number]</td><td ID="MedicationTaxonomyDesc_3">Nurse Practitioner</td><td ID="MedicationPhoneNumber_3">[phone]</td> [facility] ([facility]) quetiapine 300 MG Oral Tablet quetiapine 02/03/2021 12:00:00 AM EDT 300 mg by mouth completed <td ID="Medica tionRxNorm_6">943710</td><td ID="MedicationMedication_6">quetiapine</td><td ID="MedicationRoute_6">by mouth</td><td ID="MedicationRouteConcept_6">C53703</td><td ID="MedicationStartDate_6">02/03/2021</td><td ID="MedicationStopDate_6">03/05/2021</td><td ID="MedicationDosageFrequency_6">at bedtime</td><td ID="MedicationDuration_6">30</td><td ID="MedicationFormulaStrength_6">300 mg</td><td ID="MedicationDosageForm_6">tablet</td><td ID="MedicationDosageFormCode_6"></td><td ID="MedicationDosageDescription_6"></td><td ID="MedicationMedicationId_6">[id number]</td><td ID="MedicationAccount_6">[id number]</td><td ID="MedicationNpid_6">[id number]</td><td ID="MedicationAuthorFirstName_6">Carlos Alberto</td><td ID="MedicationAuthorLastName_6">[place]</td><td ID="MedicationTaxonomyCode_6">[id number]</td><td ID="MedicationTaxonomyDesc_6">Nurse Practitioner</td><td ID="MedicationPhoneNumber_6">[phone]</td> [facility] ([facility]) Clonazepam 0.5 MG Oral Tablet [Klonopin] Klonopin 01/31/2021 12 :00:00 AM EDT 0.5 mg by mouth completed <td ID="Me dicationRxNorm_2">086097</td><td ID="MedicationMedication_2">Klonopin</td><td ID="MedicationRoute_2">by mouth</td><td ID="MedicationRouteConcept_2">N59000</td><td ID="MedicationStartDate_2">01/31/2021</td><td ID="MedicationStopDate_2">02/15/2021</td><td ID="MedicationDosageFrequency_2">twice a day</td><td ID="MedicationDuration_2">15</td><td ID="MedicationFormulaStrength_2">0.5 mg</td><td ID="MedicationDosageForm_2">tablet</td><td ID="MedicationDosageFormCode_2"></td><td ID="MedicationDosageDescription_2"></td><td ID="MedicationMedicationId_2">[id number]</td><td ID="MedicationAccount_2">[id number]</td><td ID="MedicationNpid_2">[id number]</td><td ID="MedicationAuthorFirstName_2">Carlos Alberto</td><td ID="MedicationAuthorLastName_2">[place]en</td><td ID="MedicationTaxonomyCode_2">[id number]</td><td ID="MedicationTaxonomyDesc_2">Nurse Practitioner</td><td ID="MedicationPhoneNumber_2">[phone]</td> [facility] ([facility]) BLOOD SUGAR DIAGNOSTIC 01/21/2021 12:00:00 AM EDT [...] 300 mg by mouth completed <td ID="Medica tionRxNorm_1">527787</td><td ID="MedicationMedication_1">quetiapine</td><td ID="MedicationRoute_1">by mouth</td><td ID="MedicationRouteConcept_1">Q15167</td><td ID="MedicationStartDate_1">01/03/2021</td><td ID="MedicationStopDate_1">02/02/2021</td><td ID="MedicationDosageFrequency_1">at bedtime</td><td ID="MedicationDuration_1">30</td><td ID="MedicationFormulaStrength_1">300 mg</td><td ID="MedicationDosageForm_1">tablet</td><td ID="MedicationDosageFormCode_1"></td><td ID="MedicationDosageDescription_1"></td><td ID="MedicationMedicationId_1">[id number]</td><td ID="MedicationAccount_1">[id number]</td><td ID="MedicationNpid_1">[id number]</td><td ID="MedicationAuthorFirstName_1">Carlos Alberto</td><td ID="MedicationAuthorLastName_1">[place]en</td><td ID="MedicationTaxonomyCode_1">[id number]</td><td ID="MedicationTaxonomyDesc_1">Nurse Practitioner</td><td ID="MedicationPhoneNumber_1">[phone]</td> [facility] ([facility]) gabapentin 300 MG Oral Capsule gabapentin 01/03/2021 12:00:00 AM EDT 300 mg by mouth completed <td ID="Medica tionRxNorm_4">433725</td><td ID="MedicationMedication_4">gabapentin</td><td ID="MedicationRoute_4">by mouth</td><td ID="MedicationRouteConcept_4">Y19623</td><td ID="MedicationStartDate_4">01/03/2021</td><td ID="MedicationStopDate_4">03/04/2021</td><td ID="MedicationDosageFrequency_4">three times a day</td><td ID="MedicationDuration_4">30</td><td ID="MedicationFormulaStrength_4">300 mg</td><td ID="MedicationDosageForm_4">capsule</td><td ID="MedicationDosageFormCode_4"></td><td ID="MedicationDosageDescription_4"> </td><td ID="MedicationMedicationId_4">[id number]</td><td ID="MedicationAccount_4">[id number]</td><td ID="MedicationNpid_4">[id number]</td><td ID="MedicationAuthorFirstName_4">Carlos Alberto</td><td ID="MedicationAuthorLastName_4">[place]en</td><td ID="MedicationTaxonomyCode_4">[id number]</td><td ID="MedicationTaxonomyDesc_4">Nurse Practitioner</td><td ID="MedicationPhoneNumber_4">[phone]</td> [facility] ([facility]) gabapentin 300 MG Oral Capsule gabapentin 11/15/2020 12:00:00 AM EDT 300 mg by mouth completed <td ID="Medica tionRxNorm_2">377922</td><td ID="MedicationMedication_2">gabapentin</td><td ID="MedicationRoute_2">by mouth</td><td ID="MedicationRouteConcept_2">I10016</td><td ID="MedicationStartDate_2">11/15/2020</td><td ID="MedicationStopDate_2">12/15/2020</td><td ID="MedicationDosageFrequency_2">three times a day</td><td ID="MedicationDuration_2">30</td><td ID="MedicationFormulaStrength_2">300 mg</td><td ID="MedicationDosageForm_2">capsule</td><td ID="MedicationDosageFormCode_2"></td><td ID="MedicationDosageDescription_2"> </td><td ID="MedicationMedicationId_2">[id number]</td><td ID="MedicationAccount_2">[id number]</td><td ID="MedicationNpid_2">[id number]</td><td ID="MedicationAuthorFirstName_2">Carlos Alberto</td><td ID="MedicationAuthorLastName_2">[place]en</td><td ID="MedicationTaxonomyCode_2">[id number]</td><td ID="MedicationTaxonomyDesc_2">Nurse Practitioner</td><td ID="MedicationPhoneNumber_2">[phone]</td> [facility] ([facility] Haloperidol 10 MG Oral Tablet haloperidol 11/15/2020 12:00:00 AM EDT 10 mg by mouth completed <td ID="Medica tionRxNorm_5">976244</td><td ID="MedicationMedication_5">haloperidol</td><td ID="MedicationRoute_5">by mouth</td><td ID="MedicationRouteConcept_5">G25555</td><td ID="MedicationStartDate_5">11/15/2020</td><td ID="MedicationStopDate_5">03/04/2021</td><td ID="MedicationDosageFrequency_5">three times a day</td><td ID="MedicationDuration_5">30</td><td ID="MedicationFormulaStrength_5">10 mg</td><td ID="MedicationDosageForm_5">tablet</td><td ID="MedicationDosageFormCode_5"></td><td ID="MedicationDosageDescription_5"> </td><td ID="MedicationMedicationId_5">[id number]</td><td ID="MedicationAccount_5">[id number]</td><td ID="MedicationNpid_5">[id number]</td><td ID="MedicationAuthorFirstName_5">Carlos Alberto</td><td ID="MedicationAuthorLastName_5">[place]en</td><td ID="MedicationTaxonomyCode_5">[id number]</td><td ID="MedicationTaxonomyDesc_5">Nurse Practitioner</td><td ID="MedicationPhoneNumber_5">[phone]</td> [facility] ([facility]) benztropine mesylate 1 MG Oral Tablet benztropine 10/18/2020 12:00 :00 AM EDT 1 mg by mouth completed <td ID="Me dicationRxNorm_1">490744</td><td ID="MedicationMedication_1">benztropine</td><td ID="MedicationRoute_1">by mouth</td><td ID="MedicationRouteConcept_1">V09713</td><td ID="MedicationStartDate_1">10/18/2020</td><td ID="MedicationStopDate_1">03/04/2021</td><td ID="MedicationDosageFrequency_1">twice a day</td><td ID="MedicationDuration_1">30</td><td ID="MedicationFormulaStrength_1">1 mg</td><td ID="MedicationDosageForm_1">tablet</td><td ID="MedicationDosageFormCode_1"></td><td ID="MedicationDosageDescription_1"></td><td ID="MedicationMedicationId_1">[id number]</td><td ID="MedicationAccount_1">[id number]</td><td ID="MedicationNpid_1">[id number]</td><td ID="MedicationAuthorFirstName_1">Carlos Alberto</td><td ID="MedicationAuthorLastName_1">[place]</td><td ID="MedicationTaxonomyCode_1">[id number]</td><td ID="MedicationTaxonomyDesc_1">Nurse Practitioner</td><td ID="MedicationPhoneNumber_1">[phone]</td> [facility] ([facility]) benztropine mesylate 1 MG Oral Tablet benztropine 07/10/2020 12:00 :00 AM EST 1 mg by mouth completed <td ID="Me dicationRxNorm_2">622093</td><td ID="MedicationMedication_2">benztropine</td><td ID="MedicationRoute_2">by mouth</td><td ID="MedicationRouteConcept_2">X65908</td><td ID="MedicationStartDate_2">07/10/2020</td><td ID="MedicationStopDate_2">10/26/2020</td><td ID="MedicationDosageFrequency_2">at bedtime</td><td ID="MedicationDuration_2">30</td><td ID="MedicationFormulaStrength_2">1 mg</td><td ID="MedicationDosageForm_2">tablet</td><td ID="MedicationDosageFormCode_2"></td><td ID="MedicationDosageDescription_2"></td><td ID="MedicationMedicationId_2">[id number]</td><td ID="MedicationAccount_2">[id number]</td><td ID="MedicationNpid_2">[id number]</td><td ID="MedicationAuthorFirstName_2">Carlos Alberto</td><td ID="MedicationAuthorLastName_2">[place]</td><td ID="MedicationTaxonomyCode_2">[id number]</td><td ID="MedicationTaxonomyDesc_2">Nurse Practitioner</td><td ID="MedicationPhoneNumber_2">[phone]</td> [facility] ([facility] quetiapine 400 MG Oral Tablet quetiapine 06/12/2020 12:00:00 AM EST 400 mg by mouth completed <td ID="Medica tionRxNorm_3">421805</td><td ID="MedicationMedication_3">quetiapine</td><td ID="MedicationRoute_3">by mouth</td><td ID="MedicationRouteConcept_3">R77037</td><td ID="MedicationStartDate_3">06/12/2020</td><td ID="MedicationStopDate_3">09/10/2020</td><td ID="MedicationDosageFrequency_3">every night</td><td ID="MedicationDuration_3">30</td><td ID="MedicationFormulaStrength_3">400 mg</td><td ID="MedicationDosageForm_3">tablet</td><td ID="MedicationDosageFormCode_3"></td><td ID="MedicationDosageDescription_3"></td><td ID="MedicationMedicationId_3">[id number]</td><td ID="MedicationAccount_3">[id number]</td><td ID="MedicationNpid_3">[id number]</td><td ID="MedicationAuthorFirstName_3">Carlos Alberto</td><td ID="MedicationAuthorLastName_3">[place]</td><td ID="MedicationTaxonomyCode_3">[id number]</td><td ID="MedicationTaxonomyDesc_3">Nurse Practitioner</td><td ID="MedicationPhoneNumber_3">[phone]</td> [facility] ([facility]) Haloperidol 10 MG Oral Tablet haloperidol 06/12/2020 12:00:00 AM EST 10 mg by mouth completed <td ID="Medica tionRxNorm_1">399402</td><td ID="MedicationMedication_1">haloperidol</td><td ID="MedicationRoute_1">by mouth</td><td ID="MedicationRouteConcept_1">H66676</td><td ID="MedicationStartDate_1">06/12/2020</td><td ID="MedicationStopDate_1"></td><td ID="MedicationDosageFrequency_1">twice a day</td><td ID="MedicationDuration_1">30</td><td ID="MedicationFormulaStrength_1">10 mg</td><td ID="MedicationDosageForm_1">tablet</td><td ID="MedicationDosageFormCode_1"></td><td ID="MedicationDosageDescription_1"></td><td ID="MedicationMedicationId_1">[id number]</td><td ID="MedicationAccount_1">[id number]</td><td ID="MedicationNpid_1">[id number]</td><td ID="MedicationAuthorFirstName_1">Carlos Alberto</td><td ID="MedicationAuthorLastName_1">[place]</td><td ID="MedicationTaxonomyCode_1">[id number]</td><td ID="MedicationTaxonomyDesc_1">Nurse Practitioner</td><td ID="MedicationPhoneNumber_1">[phone]</td> [facility] ([facility]) quetiapine 400 MG Oral Tablet quetiapine 06/12/2020 12:00:00 AM EST 400 mg by mouth completed <td ID="Medica tionRxNorm_4">399241</td><td ID="MedicationMedication_4">quetiapine</td><td ID="MedicationRoute_4">by mouth</td><td ID="MedicationRouteConcept_4">R07019</td><td ID="MedicationStartDate_4">06/12/2020</td><td ID="MedicationStopDate_4">09/10/2020</td><td ID="MedicationDosageFrequency_4">every night</td><td ID="MedicationDuration_4">30</td><td ID="MedicationFormulaStrength_4">400 mg</td><td ID="MedicationDosageForm_4">tablet</td><td ID="MedicationDosageFormCode_4"></td><td ID="MedicationDosageDescription_4"></td><td ID="MedicationMedicationId_4">[id number]</td><td ID="MedicationAccount_4">[id number]</td><td ID="MedicationNpid_4">[id number]</td><td ID="MedicationAuthorFirstName_4">Carlos Alberto</td><td ID="MedicationAuthorLastName_4">[place]</td><td ID="MedicationTaxonomyCode_4">[id number]</td><td ID="MedicationTaxonomyDesc_4">Nurse Practitioner</td><td ID="MedicationPhoneNumber_4">[phone]</td> [facility] ([facility] gabapentin 400 MG Oral Capsule gabapentin 06/12/2020 12:00:00 AM EST 400 mg by mouth completed <td ID="Medica tionRxNorm_3">[id number]</td><td ID="MedicationMedication_3">gabapentin</td><td ID="MedicationRoute_3">by mouth</td><td ID="MedicationRouteConcept_3">J60108</td><td ID="MedicationStartDate_3">06/12/2020</td><td ID="MedicationStopDate_3">09/10/2020</td><td ID="MedicationDosageFrequency_3">three times a day</td><td ID="MedicationDuration_3">30</td><td ID="MedicationFormulaStrength_3">400 mg</td><td ID="MedicationDosageForm_3">capsule</td><td ID="MedicationDosageFormCode_3"></td><td ID="MedicationDosageDescription_3"> </td><td ID="MedicationMedicationId_3">[id number]</td><td ID="MedicationAccount_3">[id number]</td><td ID="MedicationNpid_3">[id number]</td><td ID="MedicationAuthorFirstName_3">Carlos Alberto</td><td ID="MedicationAuthorLastName_3">[place]</td><td ID="MedicationTaxonomyCode_3">[id number]</td><td ID="MedicationTaxonomyDesc_3">Nurse Practitioner</td><td ID="MedicationPhoneNumber_3">[phone]</td> [facility] ([facility]) Trazodone Hydrochloride 100 MG Oral Tablet trazodone 04/09 12:00:00 AM EDT 100 mg by mouth completed <td ID="Medic ationRxNorm_5">951856</td><td ID="MedicationMedication_5">trazodone</td><td ID="MedicationRoute_5">by mouth</td><td ID="MedicationRouteConcept_5">N16151</td><td ID="MedicationStartDate_5">04/09/2020</td><td ID="MedicationStopDate_5">07/08/2020</td><td ID="MedicationDosageFrequency_5">at bedtime</td><td ID="MedicationDuration_5">30</td><td ID="MedicationFormulaStrength_5">100 mg</td><td ID="MedicationDosageForm_5">tablet</td><td ID="MedicationDosageFormCode_5"></td><td ID="MedicationDosageDescription_5"></td><td ID="MedicationMedicationId_5">[id number]</td><td ID="MedicationAccount_5">[id number]</td><td ID="MedicationNpid_5">[id number]</td><td ID="MedicationAuthorFirstName_5">Carlos Alberto</td><td ID="MedicationAuthorLastName_5">[place]</td><td ID="MedicationTaxonomyCode_5">[id number]</td><td ID="MedicationTaxonomyDesc_5">Nurse Practitioner</td><td ID="MedicationPhoneNumber_5">[phone]</td> [facility] ([facility]) gabapentin 300 MG Oral Capsule gabapentin 04/09/2020 12:00:00 AM EDT 300 mg by mouth completed <td ID="Medica tionRxNorm_6">664938</td><td ID="MedicationMedication_6">gabapentin</td><td ID="MedicationRoute_6">by mouth</td><td ID="MedicationRouteConcept_6">R96488</td><td ID="MedicationStartDate_6">04/09/2020</td><td ID="MedicationStopDate_6">07/08/2020</td><td ID="MedicationDosageFrequency_6">three times a day</td><td ID="MedicationDuration_6">30</td><td ID="MedicationFormulaStrength_6">300 mg</td><td ID="MedicationDosageForm_6">capsule</td><td ID="MedicationDosageFormCode_6"></td><td ID="MedicationDosageDescription_6"> </td><td ID="MedicationMedicationId_6">[id number]</td><td ID="MedicationAccount_6">[id number]</td><td ID="MedicationNpid_6">[id number]</td><td ID="MedicationAuthorFirstName_6">Carlos Alberto</td><td ID="MedicationAuthorLastName_6">[place]</td><td ID="MedicationTaxonomyCode_6">[id number]</td><td ID="MedicationTaxonomyDesc_6">Nurse Practitioner</td><td ID="MedicationPhoneNumber_6">[phone]</td> [facility] ([facility]) Haloperidol 10 MG Oral Tablet haloperidol 04/09/2020 12:00:00 AM EDT 10 mg by mouth completed <td ID="Medica tionRxNorm_2">407557</td><td ID="MedicationMedication_2">haloperidol</td><td ID="MedicationRoute_2">by mouth</td><td ID="MedicationRouteConcept_2">R77414</td><td ID="MedicationStartDate_2">04/09/2020</td><td ID="MedicationStopDate_2">05/09/2020</td><td ID="MedicationDosageFrequency_2">twice a day</td><td ID="MedicationDuration_2">30</td><td ID="MedicationFormulaStrength_2">10 mg</td><td ID="MedicationDosageForm_2">tablet</td><td ID="MedicationDosageFormCode_2"></td><td ID="MedicationDosageDescription_2"></td><td ID="MedicationMedicationId_2">[id number]</td><td ID="MedicationAccount_2">[id number]</td><td ID="MedicationNpid_2">[id number]</td><td ID="MedicationAuthorFirstName_2">Carlos Alberto</td><td ID="MedicationAuthorLastName_2">[place]</td><td ID="MedicationTaxonomyCode_2">[id number]</td><td ID="MedicationTaxonomyDesc_2">Nurse Practitioner</td><td ID="MedicationPhoneNumber_2">[phone]</td> [facility] ([facility]) Trazodone Hydrochloride 100 MG Oral Tablet trazodone 04/09 12:00:00 AM EDT 100 mg by mouth completed <td ID="Medic ationRxNorm_2">911547</td><td ID="MedicationMedication_2">trazodone</td><td ID="MedicationRoute_2">by mouth</td><td ID="MedicationRouteConcept_2">H25529</td><td ID="MedicationStartDate_2">04/09/2020</td><td ID="MedicationStopDate_2">09/10/2020</td><td ID="MedicationDosageFrequency_2">at bedtime</td><td ID="MedicationDuration_2">30</td><td ID="MedicationFormulaStrength_2">100 mg</td><td ID="MedicationDosageForm_2">tablet</td><td ID="MedicationDosageFormCode_2"></td><td ID="MedicationDosageDescription_2"></td><td ID="MedicationMedicationId_2">[id number]</td><td ID="MedicationAccount_2">[id number]</td><td ID="MedicationNpid_2">[id number]</td><td ID="MedicationAuthorFirstName_2">Carlos Alberto</td><td ID="MedicationAuthorLastName_2">[place]</td><td ID="MedicationTaxonomyCode_2">[id number]</td><td ID="MedicationTaxonomyDesc_2">Nurse Practitioner</td><td ID="MedicationPhoneNumber_2">[phone]</td> [facility] ([facility]) Trazodone Hydrochloride 100 MG Oral Tablet trazodone 04/09 12:00:00 AM EDT 100 mg by mouth completed <td ID="Medic ationRxNorm_3">961659</td><td ID="MedicationMedication_3">trazodone</td><td ID="MedicationRoute_3">by mouth</td><td ID="MedicationRouteConcept_3">Q48260</td><td ID="MedicationStartDate_3">04/09/2020</td><td ID="MedicationStopDate_3">09/10/2020</td><td ID="MedicationDosageFrequency_3">at bedtime</td><td ID="MedicationDuration_3">30</td><td ID="MedicationFormulaStrength_3">100 mg</td><td ID="MedicationDosageForm_3">tablet</td><td ID="MedicationDosageFormCode_3"></td><td ID="MedicationDosageDescription_3"></td><td ID="MedicationMedicationId_3">[id number]</td><td ID="MedicationAccount_3">[id number]</td><td ID="MedicationNpid_3">[id number]</td><td ID="MedicationAuthorFirstName_3">Carlos Alberto</td><td ID="MedicationAuthorLastName_3">[place]</td><td ID="MedicationTaxonomyCode_3">[id number]</td><td ID="MedicationTaxonomyDesc_3">Nurse Practitioner</td><td ID="MedicationPhoneNumber_3">[phone]</td> [facility] ([facility] Trazodone Hydrochloride 100 MG Oral Tablet trazodone 04/09 12:00:00 AM EDT 100 mg by mouth completed <td ID="Medic ationRxNorm_1">538711</td><td ID="MedicationMedication_1">trazodone</td><td ID="MedicationRoute_1">by mouth</td><td ID="MedicationRouteConcept_1">N20122</td><td ID="MedicationStartDate_1">04/09/2020</td><td ID="MedicationStopDate_1">07/08/2020</td><td ID="MedicationDosageFrequency_1">at bedtime</td><td ID="MedicationDuration_1">30</td><td ID="MedicationFormulaStrength_1">100 mg</td><td ID="MedicationDosageForm_1">tablet</td><td ID="MedicationDosageFormCode_1"></td><td ID="MedicationDosageDescription_1"></td><td ID="MedicationMedicationId_1">[id number]</td><td ID="MedicationAccount_1">[id number]</td><td ID="MedicationNpid_1">[id number]</td><td ID="MedicationAuthorFirstName_1">Carlos Alberto</td><td ID="MedicationAuthorLastName_1">[place]</td><td ID="MedicationTaxonomyCode_1">[id number]</td><td ID="MedicationTaxonomyDesc_1">Nurse Practitioner</td><td ID="MedicationPhoneNumber_1">[phone]</td> [facility] ([facility]) gabapentin 300 MG Oral Capsule gabapentin 04/02/2020 12:00:00 AM EDT 300 mg by mouth completed <td ID="Medica tionRxNorm_1">158299</td><td ID="MedicationMedication_1">gabapentin</td><td ID="MedicationRoute_1">by mouth</td><td ID="MedicationRouteConcept_1">K75251</td><td ID="MedicationStartDate_1">04/02/2020</td><td ID="MedicationStopDate_1">04/09/2020</td><td ID="MedicationDosageFrequency_1">three times a day</td><td ID="MedicationDuration_1">7</td><td ID="MedicationFormulaStrength_1">300 mg</td><td ID="MedicationDosageForm_1">capsule</td><td ID="MedicationDosageFormCode_1"></td><td ID="MedicationDosageDescription_1"> </td><td ID="MedicationMedicationId_1">[id number]</td><td ID="MedicationAccount_1">[id number]</td><td ID="MedicationNpid_1">[id number]</td><td ID="MedicationAuthorFirstName_1">Carlos Alberto</td><td ID="MedicationAuthorLastName_1">[place]</td><td ID="MedicationTaxonomyCode_1">[id number]</td><td ID="MedicationTaxonomyDesc_1">Nurse Practitioner</td><td ID="MedicationPhoneNumber_1">[phone]</td> [facility] ([facility] quetiapine 400 MG Oral Tablet [Seroquel] Seroquel 01/09/2020 12 :00:00 AM EDT 400 mg by mouth completed <td ID="Me dicationRxNorm_2">402594</td><td ID="MedicationMedication_2">Seroquel</td><td ID="MedicationRoute_2">by mouth</td><td ID="MedicationRouteConcept_2">N84188</td><td ID="MedicationStartDate_2">01/09/2020</td><td ID="MedicationStopDate_2">03/09/2020</td><td ID="MedicationDosageFrequency_2">at bedtime</td><td ID="MedicationDuration_2">30</td><td ID="MedicationFormulaStrength_2">400 mg</td><td ID="MedicationDosageForm_2">tablet</td><td ID="MedicationDosageFormCode_2"></td><td ID="MedicationDosageDescription_2"></td><td ID="MedicationMedicationId_2">[id number]</td><td ID="MedicationAccount_2">[id number]</td><td ID="MedicationNpid_2">[id number]</td><td ID="MedicationAuthorFirstName_2">Carlos Alberto</td><td ID="MedicationAuthorLastName_2">[place]</td><td ID="MedicationTaxonomyCode_2">[id number]</td><td ID="MedicationTaxonomyDesc_2">Nurse Practitioner</td><td ID="MedicationPhoneNumber_2">[phone]</td> [facility] ([facility]) gabapentin 300 MG Oral Capsule gabapentin 11/30/2019 12:00:00 AM EDT 300 mg completed <td ID="Medicat ionRxNorm_1">607703</td><td ID="MedicationMedication_1">gabapentin</td><td ID="MedicationRoute_1"></td><td ID="MedicationRouteConcept_1"></td><td ID="MedicationStartDate_1">11/30/2019</td><td ID="MedicationStopDate_1">03/09/2020</td><td ID="MedicationDosageFrequency_1"></td><td ID="MedicationDuration_1">30</td><td ID="MedicationFormulaStrength_1">300 mg</td><td ID="MedicationDosageForm_1">capsule</td><td ID="MedicationDosageFormCode_1"></td><td ID="MedicationDosageDescription_1"></td><td ID="MedicationMedicationId_1">[id number]</td><td ID="MedicationAccount_1">[id number]</td><td ID="MedicationNpid_1">[id number]</td><td ID="MedicationAuthorFirstName_1">Carlos Alberto</td><td ID="MedicationAuthorLastName_1">[place]</td><td ID="MedicationTaxonomyCode_1">[id number]</td><td ID="MedicationTaxonomyDesc_1">Nurse Practitioner</td><td ID="MedicationPhoneNumber_1">[phone]</td> [facility] ([facility]) 24 HR Metformin hydrochloride 500 MG Ext ended Release Oral Tablet metformin (GLUCOPHAGE-XR) 500 MG 24 hr tablet metformin (GLUCOPHAGE-XR) 500 MG 24 hr tablet 10/16/2014 12:00:00 AM EDT aborted [facility] quetiapine 100 MG Oral Tablet quetiapine (SEROQUEL) 10 0 MG tablet quetiapine (SEROQUEL) 100 MG tablet 09/08/2014 12:00:00 AM EDT aborted [facility] Trazodone Hydrochloride 100 MG Oral Tablet trazodone ( DESYREL) 100 MG tablet trazodone (DESYREL) 100 MG tablet 09/08/2014 12:00:00 AM EDT aborted [facility] 24 HR Glipizide 2.5 MG Extended Release Oral Tablet GLIPIZIDE XL 2.5 MG 24 hr tablet GLIPIZIDE XL 2.5 MG 24 hr tablet 01/20/2014 12:00:00 AM EDT aborted [facility] Cholecalciferol 2000 UNT Oral Capsule Vitamin D3 50 mc g (2,000 unit) capsule Vitamin D3 50 mcg (2,000 unit) capsule completed cholecalciferol 0.05 MG Oral Capsule [facility] ([facility]) Steglatro 15 mg tablet 884358 complete d ertugliflozin 15 MG Oral Tablet [Steglatro] [facility] ([facility]) Steglatro 5 mg tablet [id number] completed ertugliflozin 5 MG Oral Tablet [Steglatro] [facility] ([facility]) gabapentin 400 MG Oral Capsule gabapenti n 400 mg capsule TAKE ONE CAPSULE BY MOUTH FOUR TIMES DAILY gabapentin 400 mg capsule TAKE ONE CAPSU LE BY MOUTH FOUR TIMES DAILY completed gabapentin 400 MG Oral Capsule [facility] ([facility]) Naltrexone hydrochloride 50 MG Oral Tablet naltrexone 50 mg tablet naltrexone 50 mg tablet completed naltrexone hydrochloride 50 MG Oral Tablet [facility] ([facility]) OneTouch Ultra Blue Test Strip 880089 completed OneTouch Ultra Blue Test Strip [facility] ([facility]) Trazodone Hydrochloride 100 MG Oral Tabl et trazodone 100 mg tablet TAKE TWO TABLETS BY MOUTH AT BEDTIME trazodone 100 mg tablet TAKE TWO TABLETS BY MOUTH AT BEDTIME completed trazodone hyd rochloride 100 MG Oral Tablet [facility] ([facility]) tramadol hydrochloride 50 MG Oral Tablet tramadol 50 m g tablet tramadol 50 mg tablet completed tramadol hydroc hloride 50 MG Oral Tablet [facility] ([facility]) Metformin hydrochloride 850 MG Oral Tabl et metformin 850 mg tablet TAKE ONE TABLET BY MOUTH TWICE DAILY with meals metformin 850 mg tablet TAKE ONE TABLET BY MOUTH TWICE DAILY with meals comple jaylyn metformin hydrochloride 850 MG Oral Tablet [facility] ([facility]) Acetaminophen 300 MG / Codeine Phosphate [...] 30 MG Oral Tablet [facility] ([facility]) Trazodone Hydrochloride 50 MG Oral Table t trazodone 50 mg tablet TAKE ONE TABLET BY MOUTH AT BEDTIME NEEDED trazodone 50 mg tablet TAKE ONE TABLET B Y MOUTH AT BEDTIME NEEDED completed trazodone hydrochloride 50 MG Oral Tablet [facility] ([facility]) Acetaminophen 300 MG / Codeine Phosphate [...] 30 MG Oral Tablet [facility] ([facility]) pen needles mis [id number] completed pen needles mis [id number] [facility] ([facility]) meloxicam 15 MG Oral Tablet meloxicam 15 mg tablet meloxicam 15 mg ta blet completed meloxicam 15 MG Oral Tablet [facility] ([facility]) Trazodone Hydrochloride 50 MG Oral Table t trazodone 50 mg tablet TAKE ONE TABLET BY MOUTH AT BEDTIME NEEDED trazodone 50 mg tablet TAKE ONE TABLET B Y MOUTH AT BEDTIME NEEDED completed trazodone hydrochloride 50 MG Oral Tablet [facility] ([facility]) tizanidine 2 MG Oral Tablet tizanidine 2 mg tablet tizanidine 2 mg ta blet completed tizanidine 2 MG Oral Tablet [facility] ([facility]) OneTouch Ultra2 Meter kit [id number] compl eted OneTouch Ultra2 Meter kit [facility] ([facility]) Acetaminophen 300 MG / Codeine Phosphate [...] 30 MG Oral Tablet [facility] ([facility]) celecoxib 200 MG Oral Capsule celecoxib 200 mg capsule celec oxib 200 mg capsule completed celecoxib 200 MG Oral Capsule [facility] ([facility]) tizanidine 2 MG Oral Tablet tizanidine 2 mg tablet tizanidine 2 mg ta blet completed tizanidine 2 MG Oral Tablet [facility] ([facility]) Steglatro 5 mg tablet TAKE ONE TABLET BY MOUTH ONCE DAILY [id number] completed ertugliflozin 5 MG Oral Tablet [ Steglatro] [facility] ([facility]) insulin syrg mis 1ml/29g completed insulin syrg mis 1ml/29g [facility] ([facility]) Naltrexone hydrochloride 50 MG Oral Tablet naltrexone 50 mg tablet naltrexone 50 mg tablet completed naltrexone hydrochloride 50 MG Oral Tablet [facility] ([facility]) insulin syrg mis 1ml/29g completed insulin syrg mis 1ml/29g [facility] ([facility]) Naltrexone hydrochloride 50 MG Oral Tablet naltrexone 50 mg tablet naltrexone 50 mg tablet completed naltrexone hydrochloride 50 MG Oral Tablet [facility] ([facility]) Trazodone Hydrochloride 50 MG Oral Table t trazodone 50 mg tablet TAKE ONE TABLET BY MOUTH AT BEDTIME NEEDED trazodone 50 mg tablet TAKE ONE TABLET B Y MOUTH AT BEDTIME NEEDED completed trazodone hydrochloride 50 MG Oral Tablet [facility] ([facility]) OneTouch Ultra Test strips ONE MISCELLANEOUS THREE TIMES A D AY NEEDED [id number] completed OneTouch Ultra Test strips [facility] ([facility]) quetiapine 300 MG Oral Tablet quetiapine 300 mg tablet queti apine 300 mg tablet completed quetiapine 300 MG Oral Tablet [facility] ([facility]) tizanidine 2 MG Oral Tablet tizanidine 2 mg tablet tizanidine 2 mg ta blet completed tizanidine 2 MG Oral Tablet [facility] ([facility]) insulin syrg mis 0.5/31g completed insulin syrg mis 0.5/31g [facility] ([facility]) OneTouch Ultra2 Meter kit [id number] compl eted OneTouch Ultra2 Meter kit [facility] ([facility]) OneTouch Ultra Blue Test Strip 611454 completed OneTouch Ultra Blue Test Strip [facility] ([facility]) Trazodone Hydrochloride 50 MG Oral Table t trazodone 50 mg tablet TAKE ONE TABLET BY MOUTH AT BEDTIME NEEDED trazodone 50 mg tablet TAKE ONE TABLET B Y MOUTH AT BEDTIME NEEDED completed trazodone hydrochloride 50 MG Oral Tablet [facility] ([facility]) OneTouch Ultra Blue Test Strip 162495 completed OneTouch Ultra Blue Test Strip [facility] ([facility]) celecoxib 200 MG Oral Capsule celecoxib 200 mg capsule celec oxib 200 mg capsule completed celecoxib 200 MG Oral Capsule [facility] ([facility]) Steglatro 5 mg tablet 269420 completed ertugliflozin 5 MG Oral Tablet [Steglatro] [facility] ([facility]) insulin syrg mis 0.5/31g completed insulin syrg mis 0.5/31g [facility] ([facility]) Steglatro 15 mg tablet 138421 complete d ertugliflozin 15 MG Oral Tablet [Steglatro] [place] ([facility]) OneTouch Ultra Blue Test Strip 488947 completed OneTouch Ultra Blue Test Strip [place] ([facility]) insulin syrg mis 1ml/29g completed insulin syrg mis 1ml/29g [place] ([facility]) Amoxicillin 500 MG Oral Capsule amoxicillin 500 mg cap willie amoxicillin 500 mg capsule completed amoxicillin 50 0 MG Oral Capsule [place] ([facility]) Metformin hydrochloride 850 MG Oral Tabl et metformin 850 mg tablet TAKE ONE TABLET BY MOUTH TWICE DAILY with meals metformin 850 mg tablet TAKE ONE TABLET BY MOUTH TWICE DAILY with meals comple jaylyn metformin hydrochloride 850 MG Oral Tablet [place] ([facility]) empagliflozin 25 MG Oral Tablet [Jardiance] Jardiance 25 mg tablet Jardiance 25 mg tablet completed empagliflozi n 25 MG Oral Tablet [Jardiance] [place] ([facility]) Levofloxacin 500 MG Oral Tablet levoflox acin 500 mg tablet TAKE ONE TABLET BY MOUTH ONCE DAILY levofloxacin 500 mg tablet TAKE ONE TABLET BY MOUTH ON CE DAILY completed levofloxacin 5 00 MG Oral Tablet [place] ([facility]) Nicotine 2 MG Chewing Gum nicotine (efrain crilex) 2 mg gum CHEW ONE PIECE BY MOUTH EVERY 2 HOURS NEEDED nicotine (polacrilex) 2 mg gum CHEW ONE PIECE BY MOUTH EVERY 2 HOURS NEEDED completed nicotine 2 MG Chewing Gum [facility] ([facility]) Trazodone Hydrochloride 50 MG Oral Table t trazodone 50 mg tablet TAKE ONE TABLET BY MOUTH AT BEDTIME NEEDED trazodone 50 mg tablet TAKE ONE TABLET B Y MOUTH AT BEDTIME NEEDED completed trazodone hydrochloride 50 MG Oral Tablet [facility] ([facility]) Levofloxacin 500 MG Oral Tablet levoflox acin 500 mg tablet TAKE ONE TABLET BY MOUTH ONCE DAILY levofloxacin 500 mg tablet TAKE ONE TABLET BY MOUTH ON CE DAILY completed levofloxacin 5 00 MG Oral Tablet [place] ([facility]) Trazodone Hydrochloride 100 MG Oral Tabl et trazodone 100 mg tablet TAKE TWO TABLETS BY MOUTH AT BEDTIME trazodone 100 mg tablet TAKE TWO TABLETS BY MOUTH AT BEDTIME completed trazodone hyd rochloride 100 MG Oral Tablet [facility] ([facility]) meloxicam 15 MG Oral Tablet meloxicam 15 mg tablet TAKE ONE TABLET BY MOUTH ONCE DAILY meloxicam 15 mg tablet TAKE ONE TABLET BY MOUTH ONCE DAILY completed meloxicam 15 MG Oral Tablet ATHE NA ([facility]) Naltrexone hydrochloride 50 MG Oral Tablet naltrexone 50 mg tablet naltrexone 50 mg tablet completed naltrexone hydrochloride 50 MG Oral Tablet [facility] ([facility]) OneTouch Ultra2 Meter USE DIRECTED TO TEST BLOOD ÁLVAREZ GAR THREE TIMES DAILY [id number] completed OneTouch Ultra2 Meter [place] ([facility]) insulin syrg mis 0.5/31g completed insulin syrg mis 0.5/31g [place] ([facility]) Levofloxacin 500 MG Oral Tablet levoflox acin 500 mg tablet TAKE ONE TABLET BY MOUTH ONCE DAILY levofloxacin 500 mg tablet TAKE ONE TABLET BY MOUTH ON CE DAILY completed levofloxacin 5 00 MG Oral Tablet [place] ([facility]) insulin syrg mis 0.5/31g completed insulin syrg mis 0.5/31g [place] ([facility]) Trazodone Hydrochloride 50 MG Oral Table t traZODone HCl 50 MG Oral Tablet (DESYREL) traZODone HCl 50 MG Oral Tablet (DESYREL) 50 mg Oral aborted Take 50 mg by mouth nightly as needed f or Sleep [facility] Steglatro 15 mg tablet [id number] complete d ertugliflozin 15 MG Oral Tablet [Steglatro] [facility] ([facility]) Nicotine 2 MG Chewing Gum nicotine (efrain crilex) 2 mg gum CHEW ONE PIECE BY MOUTH EVERY 2 HOURS NEEDED nicotine (polacrilex) 2 mg gum CHEW ONE PIECE BY MOUTH EVERY 2 HOURS NEEDED completed nicotine 2 MG Chewing Gum [facility] ([facility]) Steglatro 5 mg tablet [id number] completed ertugliflozin 5 MG Oral Tablet [Steglatro] [facility] ([facility]) tizanidine 4 MG Oral Tablet tiZANidine HCl 4 MG Oral T ablet (ZANAFLEX) tiZANidine HCl 4 MG Oral Tablet (ZANAFLEX) 4 mg Oral aborted Take 4 mg by mouth Three times daily as needed [facility] Naltrexone hydrochloride 50 MG Oral Tablet naltrexone 50 mg tablet naltrexone 50 mg tablet completed naltrexone hydrochloride 50 MG Oral Tablet [facility] ([facility]) empagliflozin 25 MG Oral Tablet [Jardiance] Jardiance 25 mg tablet Jardiance 25 mg tablet completed empagliflozi n 25 MG Oral Tablet [Jardiance] [place] ([facility]) Risperidone 4 MG Oral Tablet risperidone 4 mg tablet risperidone 4 mg tablet completed risperidone 4 MG Oral Tablet [facility] ([facility]) Levofloxacin 500 MG Oral Tablet levoflox acin 500 mg tablet TAKE ONE TABLET BY MOUTH ONCE DAILY levofloxacin 500 mg tablet TAKE ONE TABLET BY MOUTH ON CE DAILY completed levofloxacin 5 00 MG Oral Tablet [place] ([facility]) Ergocalciferol 65751 UNT Oral Capsule Vi tamin D2 1,250 mcg (50,000 unit) capsule Vitamin D2 1,250 mcg (50,000 unit) capsule completed ergocalciferol 1.25 MG Oral Capsule [place] ([facility]) Risperidone 4 MG Oral Tablet risperidone 4 mg tablet risperidone 4 mg tablet completed risperidone 4 MG Oral Tablet [place] ([facility]) gabapentin 400 MG Oral Capsule gabapenti n 400 mg capsule TAKE ONE CAPSULE BY MOUTH FOUR TIMES DAILY gabapentin 400 mg capsule TAKE ONE CAPSU LE BY MOUTH FOUR TIMES DAILY completed gabapentin 400 MG Oral Capsule [place] ([facility]) tramadol hydrochloride 50 MG Oral Tablet tramadol 50 m g tablet tramadol 50 mg tablet completed tramadol hydroc hloride 50 MG Oral Tablet [place] ([facility]) OneTouch Ultra2 Meter kit [id number] compl eted [facility]Touch [facility] Cephalexin 500 MG Oral Capsule cephalexin 500 mg capsu le cephalexin 500 mg capsule completed cephalexin 500 MG Oral Capsule [place] ([facility]) Regular Insulin, Human 100 UNT/ML Inject able Solution insulin regular (HUMULIN R) 100 UNIT/ML injection insulin regular (HUMULIN R) 100 UNIT/ML injection Subcutaneous aborted Inject into the skin Three times daily before meals. Sliding scale insulin [facility] Acetaminophen 325 MG / Hydrocodone Tete trate [...] bitartrate 5 MG Oral Tablet [facility] ([facility]) Nicotine 2 MG Chewing Gum nicotine (efrain crilex) 2 mg gum CHEW ONE PIECE BY MOUTH EVERY 2 HOURS NEEDED nicotine (polacrilex) 2 mg gum CHEW ONE PIECE BY MOUTH EVERY 2 HOURS NEEDED completed nicotine 2 MG Chewing Gum [facility] ([facility]) gabapentin 400 MG Oral Capsule gabapenti n 400 mg capsule TAKE ONE CAPSULE BY MOUTH FOUR TIMES DAILY gabapentin 400 mg capsule TAKE ONE CAPSU LE BY MOUTH FOUR TIMES DAILY completed gabapentin 400 MG Oral Capsule [facility] ([facility]) OneTouch Delica Plus Lancet 33 gauge [id number] completed OneTouch Delica Plus Lancet 33 gauge [facility] ([facility]) Cephalexin 500 MG Oral Capsule cephalexin 500 mg capsu le cephalexin 500 mg capsule completed cephalexin 500 MG Oral Capsule [facility] ([facility]) Ergocalciferol 33153 UNT Oral Capsule Vi tamin D2 1,250 mcg (50,000 unit) capsule Vitamin D2 1,250 mcg (50,000 unit) capsule completed ergocalciferol 1.25 MG Oral Capsule [facility] ([facility]) tizanidine 2 MG Oral Tablet tizanidine 2 mg tablet tizanidine 2 mg ta blet completed tizanidine 2 MG Oral Tablet [facility] ([facility]) Acetaminophen 300 MG / Codeine Phosphate 30 MG Oral Tablet acetaminophen 300 mg- codeine 30 mg tablet acetaminophen 300 mg-codeine 30 mg tablet completed acetaminophen 300 MG / codeine p hosphate 30 MG Oral Tablet [facility] ([facility]) Cephalexin 500 MG Oral Capsule cephalexin 500 mg capsu le cephalexin 500 mg capsule completed cephalexin 500 MG Oral Capsule [facility] ([facility]) meloxicam 15 MG Oral Tablet meloxicam 15 mg tablet meloxicam 15 mg ta blet completed meloxicam 15 MG Oral Tablet [facility] ([facility]) celecoxib 200 MG Oral Capsule celecoxib 200 mg capsule celec oxib 200 mg capsule completed celecoxib 200 MG Oral Capsule [facility] ([facility]) BD Ultra-Fine Mini Pen Needle 31 gauge x 3/16" USE DIRECTED with insulin pens [id number] completed BD Ultra- Fine Mini Pen Needle 31 gauge x 3/16" [facility] ([facility]) gabapentin 400 MG Oral Capsule gabapenti n 400 mg capsule TAKE ONE CAPSULE BY MOUTH FOUR TIMES DAILY gabapentin 400 mg capsule TAKE ONE CAPSU LE BY MOUTH FOUR TIMES DAILY completed gabapentin 400 MG Oral Capsule [facility] ([facility]) quetiapine 200 MG Oral Tablet quetiapine 200 mg tablet TAKE ONE TABLET BY MOUTH EVERY EVENING quetiapine 200 mg tablet TAKE ONE TABLET BY MOUTH EVERY EVEN ING completed quetiapine 200 MG Oral Tablet [facility] ([facility]) quetiapine 300 MG Oral Tablet quetiapine 300 mg tablet queti apine 300 mg tablet completed quetiapine 300 MG Oral Tablet MAR[facility] ([facility]) tizanidine 2 MG Oral Tablet tizanidine 2 mg tablet tizanidine 2 mg ta blet completed tizanidine 2 MG Oral Tablet [facility] ([facility]) Trazodone Hydrochloride 100 MG Oral Tabl et trazodone 100 mg tablet TAKE TWO TABLETS BY MOUTH AT BEDTIME trazodone 100 mg tablet TAKE TWO TABLETS BY MOUTH AT BEDTIME completed trazodone hyd rochloride 100 MG Oral Tablet [facility] ([facility]) OneTouch Ultra Test strips ONE MISCELLANEOUS THREE TIMES A D AY NEEDED [id number] completed OneTouch Ultra Test strips [facility] ([facility]) quetiapine 400 MG Oral Tablet quetiapine 400 mg tablet TAKE ONE TABLET BY MOUTH EVERY EVENING quetiapine 400 mg tablet TAKE ONE TABLET BY MOUTH EVERY EVEN ING completed quetiapine 400 MG Oral Tablet [facility] ([facility]) Trazodone Hydrochloride 50 MG Oral Table t trazodone 50 mg tablet TAKE ONE TABLET BY MOUTH AT BEDTIME NEEDED trazodone 50 mg tablet TAKE ONE TABLET B Y MOUTH AT BEDTIME NEEDED completed trazodone hydrochloride 50 MG Oral Tablet [facility] ([facility]) Steglatro 5 mg tablet TAKE ONE TABLET BY MOUTH ONCE DAILY [id number] completed ertugliflozin 5 MG Oral Tablet [ Steglatro] MARTIR ([facility]) Steglatro 15 mg tablet [id number] complete d ertugliflozin 15 MG Oral Tablet [Steglatro] [facility] ([facility]) celecoxib 200 MG Oral Capsule celecoxib 200 mg capsule celec oxib 200 mg capsule completed celecoxib 200 MG Oral Capsule [facility] ([facility]) Risperidone 4 MG Oral Tablet risperidone 4 mg tablet risperidone 4 mg tablet completed risperidone 4 MG Oral Tablet [facility] ([facility]) Amoxicillin 500 MG Oral Capsule amoxicillin 500 mg cap willie amoxicillin 500 mg capsule completed amoxicillin 50 0 MG Oral Capsule [facility] ([facility]) insulin syrg mis 1ml/29g completed insulin syrg mis 1ml/29g [facility] ([facility]) pen needles mis [id number] completed pen needles mis [id number] [facility] ([facility]) quetiapine 400 MG Oral Tablet quetiapine 400 mg tablet TAKE ONE TABLET BY MOUTH EVERY EVENING quetiapine 400 mg tablet TAKE ONE TABLET BY MOUTH EVERY EVEN ING completed quetiapine 400 MG Oral Tablet [facility] ([facility]) OneTouch Ultra2 Meter USE DIRECTED TO TEST BLOOD ÁLVAREZ GAR THREE TIMES DAILY 479416 completed OneTouch Ultra2 Meter [facility] ([facility]) Risperidone 4 MG Oral Tablet risperidone 4 mg tablet risperidone 4 mg tablet completed risperidone 4 MG Oral Tablet [facility] ([facility]) Acetaminophen 325 MG / Hydrocodone Tete [...] hydrocodone bitartrate 5 MG Oral Tablet [facility] ([facility]) gabapentin 400 MG Oral Capsule gabapenti n 400 mg capsule TAKE ONE CAPSULE BY MOUTH FOUR TIMES DAILY gabapentin 400 mg capsule TAKE ONE CAPSU LE BY MOUTH FOUR TIMES DAILY completed gabapentin 400 MG Oral Capsule [facility] ([facility]) OneTouch Ultra2 Meter USE DIRECTED TO TEST BLOOD ÁLVAREZ GAR THREE TIMES DAILY 577876 completed OneTouch Ultra2 Meter [facility] ([facility]) Ibuprofen 800 MG Oral Tablet ibuprofen 8 00 mg tablet TAKE ONE TABLET BY MOUTH EVERY SIX HOURS NEEDED FOR PAIN ibuprofen 800 mg tablet TAKE ONE TABLET BY MOUTH EVERY SIX HOURS NEEDED FOR PAIN completed ibuprofen 800 MG Oral Tablet [facility] ([facility]) Cholecalciferol 2000 UNT Oral Capsule Vitamin D3 50 mc g (2,000 unit) capsule Vitamin D3 50 mcg (2,000 unit) capsule completed cholecalciferol 0.05 MG Oral Capsule [facility] ([facility]) Steglatro 5 mg tablet 062256 completed ertugliflozin 5 MG Oral Tablet [Steglatro] [facility] ([facility]) pen needles mis [id number] completed pen needles mis [id number] [facility] ([facility]) insulin syrg mis 1ml/29g completed insulin syrg mis 1ml/29g [facility] ([facility]) quetiapine 400 MG Oral Tablet quetiapine 400 mg tablet TAKE ONE TABLET BY MOUTH EVERY EVENING quetiapine 400 mg tablet TAKE ONE TABLET BY MOUTH EVERY EVEN ING completed quetiapine 400 MG Oral Tablet [facility] ([facility]) Acetaminophen 325 MG / Hydrocodone Tete [...] hydrocodone bitartrate 5 MG Oral Tablet [facility] ([facility]) Acetaminophen 300 MG / Codeine Phosphate [...] 30 MG Oral Tablet [facility] ([facility]) Cholecalciferol 2000 UNT Oral Capsule Vitamin D3 50 mc g (2,000 unit) capsule Vitamin D3 50 mcg (2,000 unit) capsule completed cholecalciferol 0.05 MG Oral Capsule [facility] ([facility]) Cholecalciferol 2000 UNT Oral Capsule Vitamin D3 50 mc g (2,000 unit) capsule Vitamin D3 50 mcg (2,000 unit) capsule completed cholecalciferol 0.05 MG Oral Capsule [facility] ([facility]) Nicotine 2 MG Chewing Gum nicotine (efrain crilex) 2 mg gum CHEW ONE PIECE BY MOUTH EVERY 2 HOURS NEEDED nicotine (polacrilex) 2 mg gum CHEW ONE PIECE BY MOUTH EVERY 2 HOURS NEEDED completed nicotine 2 MG Chewing Gum [facility] ([facility]) Amoxicillin 500 MG Oral Capsule amoxicillin 500 mg cap willie amoxicillin 500 mg capsule completed amoxicillin 50 0 MG Oral Capsule [facility] ([facility]) quetiapine 400 MG Oral Tablet quetiapine 400 mg tablet TAKE ONE TABLET BY MOUTH EVERY EVENING quetiapine 400 mg tablet TAKE ONE TABLET BY MOUTH EVERY EVEN ING completed quetiapine 400 MG Oral Tablet [facility] ([facility]) Nicotine 2 MG Chewing Gum nicotine (efrain crilex) 2 mg gum CHEW ONE PIECE BY MOUTH EVERY 2 HOURS NEEDED nicotine (polacrilex) 2 mg gum CHEW ONE PIECE BY MOUTH EVERY 2 HOURS NEEDED completed nicotine 2 MG Chewing Gum MARTIR ([facility]) Steglatro 5 mg tablet TAKE ONE TABLET BY MOUTH ONCE DAILY [id number] completed ertugliflozin 5 MG Oral Tablet [ Steglatro] MRATIR ([facility]) gabapentin 400 MG Oral Capsule gabapenti n 400 mg capsule TAKE ONE CAPSULE BY MOUTH FOUR TIMES DAILY gabapentin 400 mg capsule TAKE ONE CAPSU LE BY MOUTH FOUR TIMES DAILY completed gabapentin 400 MG Oral Capsule [facility] ([facility]) meloxicam 15 MG Oral Tablet meloxicam 15 mg tablet TAKE ONE TABLET BY MOUTH ONCE DAILY meloxicam 15 mg tablet TAKE ONE TABLET BY MOUTH ONCE DAILY completed meloxicam 15 MG Oral Tablet ATHE ([facility]) gabapentin 400 MG Oral Capsule gabapenti n 400 mg capsule TAKE ONE CAPSULE BY MOUTH FOUR TIMES DAILY gabapentin 400 mg capsule TAKE ONE CAPSU LE BY MOUTH FOUR TIMES DAILY completed gabapentin 400 MG Oral Capsule [facility] ([facility]) meloxicam 15 MG Oral Tablet meloxicam 15 mg tablet meloxicam 15 mg ta blet completed meloxicam 15 MG Oral Tablet [facility] ([facility]) Acetaminophen 325 MG / Hydrocodone Tete [...] bitartrate 5 MG Oral Tablet MARTIR ([facility]) Acetaminophen 300 MG / Codeine [...] 30 MG Oral Tablet MARTIR ([facility]) Trazodone Hydrochloride 50 MG Oral Table t trazodone 50 mg tablet TAKE ONE TABLET BY MOUTH AT BEDTIME NEEDED trazodone 50 mg tablet TAKE ONE TABLET B Y MOUTH AT BEDTIME NEEDED completed trazodone hydrochloride 50 MG Oral Tablet M[facility]IR ([facility]) Metformin hydrochloride 850 MG Oral Tabl et metformin 850 mg tablet TAKE ONE TABLET BY MOUTH TWICE DAILY with meals metformin 850 mg tablet TAKE ONE TABLET BY MOUTH TWICE DAILY with meals comple jaylyn metformin hydrochloride 850 MG Oral Tablet MARTIR ([facility]) Cephalexin 500 MG Oral Capsule cephalexin 500 mg capsu le cephalexin 500 mg capsule completed cephalexin 500 MG Oral Capsule M[facility]IR ([facility]) Steglatro 5 mg tablet TAKE ONE TABLET BY MOUTH ONCE DAILY 617551 completed ertugliflozin 5 MG Oral Tablet [ Steglatro] MARTIR ([facility]) OneTouch Ultra2 Meter USE DIRECTED TO TEST BLOOD ÁLVAREZ GAR THREE TIMES DAILY 920922 completed OneTouch Ultra2 Meter [facility] ([facility]) Metformin hydrochloride 850 MG Oral Tabl et metformin 850 mg tablet TAKE ONE TABLET BY MOUTH TWICE DAILY with meals metformin 850 mg tablet TAKE ONE TABLET BY MOUTH TWICE DAILY with meals comple jaylyn metformin hydrochloride 850 MG Oral Tablet M[facility] ([facility]) Steglatro 15 mg tablet [id number] complete d ertugliflozin 15 MG Oral Tablet [Steglatro] MARTIR ([facility]) meloxicam 15 MG Oral Tablet meloxicam 15 mg tablet meloxicam 15 mg ta blet completed meloxicam 15 MG Oral Tablet [facility] ([facility]) OneTouch Ultra2 Meter kit [id number] compl eted OneTouch Ultra2 Meter kit [facility]ARTIR ([facility]) Metformin hydrochloride 850 MG Oral Tabl et metformin 850 mg tablet TAKE ONE TABLET BY MOUTH TWICE DAILY with meals metformin 850 mg tablet TAKE ONE TABLET BY MOUTH TWICE DAILY with meals comple jaylyn metformin hydrochloride 850 MG Oral Tablet MARTIR ([facility]) pen needles mis [id number] completed pen needles mis [id number] MART[facility] ([facility]) Metformin hydrochloride 850 MG Oral Tabl et metformin 850 mg tablet TAKE ONE TABLET BY MOUTH TWICE DAILY with meals metformin 850 mg tablet TAKE ONE TABLET BY MOUTH TWICE DAILY with meals comple jaylyn metformin hydrochloride 850 MG Oral Tablet [facility] ([facility]) tramadol hydrochloride 50 MG Oral Tablet tramadol 50 m g tablet tramadol 50 mg tablet completed tramadol hydroc hloride 50 MG Oral Tablet [facility] ([facility]) gabapentin 300 MG Oral Capsule gabapenti n 300 mg capsule TAKE TWO CAPSULES BY MOUTH THREE TIMES DAILY gabapentin 300 mg capsule TAKE TWO CAPSU LES BY MOUTH THREE TIMES DAILY completed cari pentin 300 MG Oral Capsule MARTIR ([facility]) quetiapine 400 MG Oral Tablet quetiapine 400 mg tablet TAKE ONE TABLET BY MOUTH EVERY EVENING quetiapine 400 mg tablet TAKE ONE TABLET BY MOUTH EVERY EVEN ING completed quetiapine 400 MG Oral Tablet [facility] ([facility]) Amoxicillin 500 MG Oral Capsule amoxicillin 500 mg cap willie amoxicillin 500 mg capsule completed amoxicillin 50 0 MG Oral Capsule [facility] ([facility]) empagliflozin 25 MG Oral Tablet [Jardiance] Jardiance 25 mg tablet Jardiance 25 mg tablet completed empagliflozi n 25 MG Oral Tablet [Jardiance] MARTIR ([facility]) Steglatro 5 mg tablet [id number] completed ertugliflozin 5 MG Oral Tablet [Steglatro] MARTIR ([facility]) meloxicam 15 MG Oral Tablet meloxicam 15 mg tablet meloxicam 15 mg ta blet completed meloxicam 15 MG Oral Tablet [facility] ([facility]) Cephalexin 500 MG Oral Capsule cephalexin 500 mg capsu le cephalexin 500 mg capsule completed cephalexin 500 MG Oral Capsule M[facility]IR ([facility]) empagliflozin 25 MG Oral Tablet [Jardiance] Jardiance 25 mg tablet Jardiance 25 mg tablet completed empagliflozi n 25 MG Oral Tablet [Jardiance] MARTIR ([facility]) tramadol hydrochloride 50 MG Oral Tablet tramadol 50 m g tablet tramadol 50 mg tablet completed tramadol hydroc hloride 50 MG Oral Tablet M[facility] ([facility]) OneTouch Ultra Blue Test Strip 485589 completed OneTouch Ultra Blue Test Strip [place] ([facility]) OneTouch Delica Plus Lancet 33 gauge 504414 completed OneTouch Delica Plus Lancet 33 gauge [place] ([facility]) pen needles mis [id number] completed pen needles mis [id number] [place] ([facility]) Trazodone Hydrochloride 100 MG Oral Tabl et trazodone 100 mg tablet TAKE TWO TABLETS BY MOUTH AT BEDTIME trazodone 100 mg tablet TAKE TWO TABLETS BY MOUTH AT BEDTIME completed trazodone hyd rochloride 100 MG Oral Tablet [place] ([facility]) celecoxib 200 MG Oral Capsule celecoxib 200 mg capsule celec oxib 200 mg capsule completed celecoxib 200 MG Oral Capsule [place] ([facility]) Risperidone 4 MG Oral Tablet risperidone 4 mg tablet risperidone 4 mg tablet completed risperidone 4 MG Oral Tablet [place] ([facility]) Nicotine 2 MG Chewing Gum nicotine (efrain crilex) 2 mg gum CHEW ONE PIECE BY MOUTH EVERY 2 HOURS NEEDED nicotine (polacrilex) 2 mg gum CHEW ONE PIECE BY MOUTH EVERY 2 HOURS NEEDED completed nicotine 2 MG Chewing Gum [place] ([facility]) BD Insulin Syringe Ultra-Fine 1 mL 30 ga uge x 1/2" use as directed to inject insulin five times a day ud [id number] completed BD Insulin Syringe Ultra-Fine 1 mL 30 gauge x 1/2" [place] ([facility]) Cholecalciferol 2000 UNT Oral Capsule Vitamin D3 50 mc g (2,000 unit) capsule Vitamin D3 50 mcg (2,000 unit) capsule completed cholecalciferol 0.05 MG Oral Capsule [place] ([facility]) tramadol hydrochloride 50 MG Oral Tablet tramadol 50 m g tablet tramadol 50 mg tablet completed tramadol hydroc hloride 50 MG Oral Tablet [place] ([facility]) Clonazepam 0.5 MG Oral Tablet clonazepam 0.5 mg tablet Take by oral route for 15 days. clonazepam 0.5 mg tablet Take by oral route for 15 days. completed clonazepam 0.5 MG Oral Tablet [facility] ([facility]) empagliflozin 25 MG Oral Tablet [Jardiance] Jardiance 25 mg tablet Jardiance 25 mg tablet completed empagliflozi n 25 MG Oral Tablet [Jardiance] [place] ([facility]) Amoxicillin 500 MG Oral Capsule amoxicillin 500 mg cap willie amoxicillin 500 mg capsule completed amoxicillin 50 0 MG Oral Capsule [place] ([facility]) Trazodone Hydrochloride 100 MG Oral Tabl et trazodone 100 mg tablet TAKE TWO TABLETS BY MOUTH AT BEDTIME trazodone 100 mg tablet TAKE TWO TABLETS BY MOUTH AT BEDTIME completed trazodone hyd rochloride 100 MG Oral Tablet [place] ([facility]) OneTouch Ultra2 Meter USE DIRECTED TO TEST BLOOD ÁLVAREZ GAR THREE TIMES DAILY 427023 completed OneTouch Ultra2 Meter [place] ([facility]) OneTouch Ultra2 Meter kit 359506 compl eted OneTouch Ultra2 Meter kit [place] ([facility]) insulin syrg mis 0.5/31g completed insulin syrg mis 0.5/31g [place] ([facility]) Nicotine 2 MG Chewing Gum nicotine (efrain crilex) 2 mg gum CHEW ONE PIECE BY MOUTH EVERY 2 HOURS NEEDED nicotine (polacrilex) 2 mg gum CHEW ONE PIECE BY MOUTH EVERY 2 HOURS NEEDED completed nicotine 2 MG Chewing Gum [place] ([facility]) Insurance Providers Payer name Policy type / Coverage type Policy ID Covered green party ID Covered green party's relationship to beard Policy Beard Plan Information BC HMOBLUE OPTION [place] 2 [id number] 1 [id number] MEDICAID [id number] Self [id number] BC HMOBLUE OPTION MC 2 [id number] 1 [id number] EXCELLUS I [id number] Self [id number] MEDICAID [id number] Shefali [id number] ONEAL MEDICAID [id number] Shefali 7 [id number] ONEAL I [id number] Self [id number] ONEAL I [id number] Self [id number] DENTAL DENTAQUEST I [id number] Self [id number] ONEAL MEDICAID [id number] Shefali 7 [id number] [facility] Community Plan Commercial [id number] Self [facility] Community Plan Medigap Part B [id number] Self [id number] [facility] Community Plan Medigap Part B [id number] Self [id number] Managed Care - Community Plan [facility] P [id number] S [id number] Medicaid S [id number] S [id number] Managed Care - Community Plan [facility] P [id number] S [id number] Managed Care - Community Plan [facility] P [id number] S [id number] Medicaid [place] Medig[place] Part B [id number] Self [id number] [place] Medig[place] Part [place] [id number] Self [id number] [place] Med[place] Part [place] [id number] Self [id number] [place] Medig[place] [id number] Self [id number] [facility] Community Plan Commercial [id number] Self [id number] Medicaid S [id number] Medicaid [place] Medigap Part [place] [id number] Self [id number] Managed Care - Community Plan [facility] P [id number] S [id number] [facility] Community Plan Commercial [id number] Self [id number] Managed Care - [facility] Community Plan P [id number] S [id number] Medicaid [place] Medigap Part [place] [id number] Self [id number] [facility] Community Plan Commercial [id number] Self [id number] Medicaid S [id number] S [id number] Managed Care - [facility] Community Plan P [id number] S [id number] [facility] MEDICAID [id number] Self [id number] [facility] [id number] Self [id number] [facility] [id number] Self [id number] MH OPTUM [id number] Self [id number] [facility] I [id number] Self [id number] BLUE CHOICE OPTION O [id number] S [id number] [employer] 2 [id number] SELFPAY 5 UNAVAILABLE 1 UNAVAILA BLE MEDICAID 3 [id number] BLUE CHOICE OPTIONS 7 [id number] BC HMOBLUE OPTION MC 2 [id number] 1 [id number] [facility] 2 [id number] 1 [id number] [place] [id number] 1 [id number] BC HMOBLUE OPTION MC 2 [id number] 1 [id number] [employer] [place] O [id number] S [id number] MEDICAID W [id number] S [id number] BCBS [place] O [id number] S [id number] SELF PAY UNAVAILABLE [place] B[place] 3 [id number] [facility] [id number] SP [id number] O UNAVAILABLE UNAVAILA BLE [facility] MCDO [id number] SP [id number] [facility] HMO [id number] SP [id number] [place] [id number] SP [id number] [facility] [id number] SP [id number] [facility] [id number] SP [id number] [facility] [id number] S [id number] [facility] [id number] SP [id number] [facility] MCDHMO [id number] SP [id number] [facility] [id number] ANSI-Medicaid [id number] [facility]) O [id number] S [id number] ANSI-Medicaid [id number] ANSI-Medicaid [id number] MEDICAID [id number] SP [id number] [facility] [id number] SP [id number] Self Pay P [id number] S [id number] Self Pay P UNAVAILABLE S UNAVAILA BLE [facility] Community Plan Commercial [id number] Self [id number] [facility] Community Plan Commercial [id number] Self [id number] [facility] O [id number] S [id number] [facility]) O [id number] S [id number] [facility] Community Plan Commercial [id number] Self [id number] [facility] Community Plan Commercial [id number] Self [id number] ONEAL [id number] SP [id number] 400 D Managed Care Oneal P [id number] S [id number] [place] O [id number] S [id number] [facility] [id number] SP [id number] STPP Wrap [id number] [place] [id number] [place] W [id number] S [id number] [place] U[place]VA[place] S UN AVAILABLE MEDICAID W [id number] S [id number] HMO BLUE OPTION W [id number] S V [id number] Problems, Conditions, and Diagnoses Code Display Name Description Problem Type Effective Dates Data Source(s) 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 Diagnosis 02/27/2021 10:13:00 PM EDT [facility] [id number] Nicotine dependence, unspecified, uncomp licated Nicotine dependence, unspecified, uncomplicated Diagnosis 02/27/2021 10:13:00 PM EDT [facility] E1165 Type 2 diabetes mellitus with hyperglyce elroy Type 2 diabetes mellitus with hyperglycemia Diagnosis 02/27/2021 10:13:00 PM EDT [facility] [id number] CONTACT WITH AND SUSPECTED EXPOSURE TO C OVID-19 CONTACT WITH AND SUSPECTED EXPOSURE TO COVID-19 Diagnosis 02/01/2021 11:44:00 PM EDT [facility] F329 Major depressive disorder, single episod e, unspecified Major depressive disorder, single episode, unspecified Diagnosis 02/01/2021 11:44:00 PM EDT [facility] 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 uced psychotic disorder with hallucinations Diagnosis 02/01/2021 11:44:00 PM EDT [facility] R443 Hallucinations, unspecified Hallucinations, unspecifie d Diagnosis 02/01/2021 11:44:00 PM EDT [facility] Z72.0 Tobacco use Tobacco use Diagnosis 11/06/2020 09:33:19 AM EDT [facility] F20.0 Paranoid schizophrenia Paranoid schizophrenia Diagnosi s 11/06/2020 09:33:09 AM EDT [facility] 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 Diagnosis 11/06/2020 09:33:04 AM EDT [facility] E11.9 Type 2 diabetes mellitus without complic ations Type 2 diabetes mellitus without complications Diagnosis 11/06/2020 09:33:04 AM EDT [facility] hypotension hypotension Diagnosis 10/30/2020 09:24:00 AM EDT [facility] Hypotension Hypotension Diagnosis 10/30/2020 09:24:00 AM EDT [facility] E86.0 Dehydration Dehydration Diagnosis 10/30/2020 09:24:00 AM EDT [facility] I95.9 Hypotension, unspecified Hypotension, unspecified Diag nosis 10/30/2020 09:24:00 AM EDT [facility] psych transfer psych transfer Diagnosis 10/28/2020 04:13: 00 PM EDT [facility] Psychiatric Evaluation Psychiatric Evaluation Diagnosi s 10/28/2020 04:13:00 PM EDT [facility] F51.02 Adjustment insomnia Adjustment insomnia Diagnosis 0 10/28/2020 04:13:00 PM EDT [facility] 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, un specified Extrapyramidal and movement disorder, unspecified Diagnosis 10/28/2020 04:13:00 PM EDT [facility] F39 Unspecified mood [affective] disorder Unspecifie d mood (affective) disorder Diagnosis 10/28/2020 04:13:00 PM EDT [facility] F20.9 Schizophrenia, unspecified Schizophrenia, unspecified Diagnosis 09/02/2020 06:18:57 AM [facility] Psychiatric Evaluation Psychiatric Evaluation Diagnosi s 09/01/2020 11:07:00 PM EST [facility] ems other ems other Diagnosis 09/01/2020 11:07:00 PM ES T [facility] F10.20 Alcohol dependence, uncomplicated Alcohol Use Di sorder, Moderate Condition 04/15/2021 12:00:00 AM EDT [facility] ([facility]) F20.0 Paranoid schizophrenia Paranoid schizophrenia Conditio n 04/15/2021 12:00:00 AM EDT [facility] ([facility]) [id number] Adult health examination Adult Health Examination Prob emily 03/18/2021 12:00:00 AM EDT [facility] ([facility]) [id number] Mixed anxiety and depressive disorder Mi xed Anxiety and Depressive Disorder Problem 03/18/2021 12:00:00 AM EDT [facility] ([facility]) [id number] Homeless Homeless Problem 01/16/2021 12:00:00 AM ED T [facility] ([facility]) F20.9 Schizophrenia, unspecified Schizophrenia Condition 10/08/2020 12:00:00 AM EDT [facility] ([facility]) [id number] Clinical finding Clinical Finding Problem 12:00:00 AM EDT - 06/13/2020 12:00:00 AM EST [facility] ([facility]) [id number] Clinical finding Clinical Finding Problem 12:00:00 AM EDT - 06/13/2020 12:00:00 AM EST [facility] ([facility]) [id number] Clinical finding Clinical Finding Problem 12:00:00 AM EDT - 06/13/2020 12:00:00 AM EST [facility] ([facility]) [id number] Clinical finding Clinical Finding Problem 12:00:00 AM EDT - 06/13/2020 12:00:00 AM EST [facility] ([facility]) [id number] Clinical finding Clinical Finding Problem 018 12:00:00 AM EST - 06/13/2020 12:00:00 AM EST [facility] ([facility]) [id number] Clinical finding Clinical Finding Problem 018 12:00:00 AM EST - 06/13/2020 12:00:00 AM EST [facility] ([facility]) [id number] Clinical finding Clinical Finding Problem 018 12:00:00 AM EST - 06/13/2020 12:00:00 AM EST [facility] ([facility]) [id number] Clinical finding Clinical Finding Problem 018 12:00:00 AM EST - 06/13/2020 12:00:00 AM EST [facility] ([facility]) [id number] Procedure Procedure Problem 12/02/2017 12:0 0:00 AM EDT - 06/13/2020 12:00:00 AM EST [facility] ([facility]) [id number] Procedure Procedure Problem 12/02/2017 12:0 0:00 AM EDT - 06/13/2020 12:00:00 AM EST [facility] ([facility]) [id number] Procedure Procedure Problem 12/02/2017 12:0 0:00 AM EDT - 06/13/2020 12:00:00 AM EST [facility] ([facility]) [id number] Procedure Procedure Problem 12/02/2017 12:0 0:00 AM EDT - 06/13/2020 12:00:00 AM EST [facility] ([facility]) [id number] SNOMED CT Concept SNOMED CT Concept Problem 12/10 12:00:00 AM EDT - 06/13/2020 12:00:00 AM EST [facility] ([facility]) [id number] SNOMED CT Concept SNOMED CT Concept Problem 12/10 12:00:00 AM EDT - 06/13/2020 12:00:00 AM EST [facility] ([facility]) [id number] SNOMED CT Concept SNOMED CT Concept Problem 12/10 12:00:00 AM EDT - 06/13/2020 12:00:00 AM EST [facility] ([facility]) [id number] SNOMED CT Concept SNOMED CT Concept Problem 12/10 12:00:00 AM EDT - 06/13/2020 12:00:00 AM EST [facility] ([facility]) Surgeries/Procedures Procedure Description Date Indications Data Source(s) Extended Individual Psychotherapy - 45 min 04/15/2021 12:00:00 AM EDT - 04/15/2021 12:00:00 AM EDT [facility] ([facility]) Extended Individual Psychotherapy - 45 min 12:00:00 AM EDT [facility] ([facility]) Brief Individual Psychotherapy - 30 min 03/21/2021 12:00:00 AM EDT - 03/21/2021 12:00:00 AM EDT [facility] ([facility]) Brief Individual Psychotherapy - 30 min 03/19/2021 12: 00:00 AM EDT [facility]) POCT GLUCOSE, DOCKED <td>POCT GLUCOSE, DOCKED</td ><td>Routine</td><td>03/06/2021 8:54 AM EDT</td><td></td><td> </td> 03/06/2021 08:54:00 AM [facility] GLUCOSE QUANTITATIVE BLOOD XCPT REAGENT STRIP <td>POCT GLUCOSE, DOCKED</td><td>Routine</td><td>03/05/2021 9:20 PM EDT</td><td></td><td> </td> 03/05/2021 09:20:00 PM [facility] GLUCOSE QUANTITATIVE BLOOD XCPT REAGENT STRIP <td>POCT GLUCOSE, DOCKED</td><td>Routine</td><td>03/05/2021 5:21 PM EDT</td><td></td><td> </td> 03/05/2021 05:21:00 PM [facility] GLUCOSE QUANTITATIVE BLOOD XCPT REAGENT STRIP <td>POCT GLUCOSE, DOCKED</td><td>Routine</td><td>03/05/2021 12:47 PM EDT</td><td></td><td> </td> 03/05/2021 12:47:00 PM [facility] GLUCOSE QUANTITATIVE BLOOD XCPT REAGENT STRIP <td>POCT GLUCOSE, DOCKED</td><td>Routine</td><td>03/05/2021 8:44 AM EDT</td><td></td><td> </td> 03/05/2021 08:44:00 AM [facility] GLUCOSE QUANTITATIVE BLOOD XCPT REAGENT STRIP <td>POCT GLUCOSE, DOCKED</td><td>Routine</td><td>03/04/2021 8:49 PM EDT</td><td></td><td> </td> 03/04/2021 08:49:00 PM [facility] GLUCOSE QUANTITATIVE BLOOD XCPT REAGENT STRIP <td>POCT GLUCOSE, DOCKED</td><td>Routine</td><td>03/04/2021 5:12 PM EDT</td><td></td><td> </td> 03/04/2021 05:12:00 PM [facility] GLUCOSE QUANTITATIVE BLOOD XCPT REAGENT STRIP <td>POCT GLUCOSE, DOCKED</td><td>Routine</td><td>03/04/2021 12:47 PM EDT</td><td></td><td> </td> 03/04/2021 12:47:00 PM [facility] GLUCOSE QUANTITATIVE BLOOD XCPT REAGENT STRIP <td>POCT GLUCOSE, DOCKED</td><td>Routine</td><td>03/04/2021 8:38 AM EDT</td><td></td><td> </td> 03/04/2021 08:38:00 AM [facility] GLUCOSE QUANTITATIVE BLOOD XCPT REAGENT STRIP <td>POCT GLUCOSE, DOCKED</td><td>Routine</td><td>03/03/2021 8:59 PM EDT</td><td></td><td> </td> 03/03/2021 08:59:00 PM [facility] GLUCOSE QUANTITATIVE BLOOD XCPT REAGENT STRIP <td>POCT GLUCOSE, DOCKED</td><td>Routine</td><td>03/03/2021 5:37 PM EDT</td><td></td><td> </td> 03/03/2021 05:37:00 PM [facility] GLUCOSE QUANTITATIVE BLOOD XCPT REAGENT STRIP <td>POCT GLUCOSE, DOCKED</td><td>Routine</td><td>03/03/2021 12:42 PM EDT</td><td></td><td> </td> 03/03/2021 12:42:00 PM [facility] GLUCOSE QUANTITATIVE BLOOD XCPT REAGENT STRIP <td>POCT GLUCOSE, DOCKED</td><td>Routine</td><td>03/03/2021 8:50 AM EDT</td><td></td><td> </td> 03/03/2021 08:50:00 AM [facility] GLUCOSE QUANTITATIVE BLOOD XCPT REAGENT STRIP <td>POCT GLUCOSE, DOCKED</td><td>Routine</td><td>03/02/2021 8:10 PM EDT</td><td></td><td> </td> 03/02/2021 08:10:00 PM [facility] Brief Individual Psychotherapy - 30 min 02/26/2021 12:00:00 AM EDT - 02/26/2021 12:00:00 AM EDT [facility] ([facility]) Brief Individual Psychotherapy - 30 min 02/26/2021 12: 00:00 AM EDT [facility] ([facility]) MRI, lumbar spine, w/o contrast 02/05/2021 12:00:00 AM EDT [facility] ([facility]) MRI, hip, w/o contrast 02/05/2021 12:00:00 AM EDT [facility] ([facility]) MRI, hip, w/o contrast 02/05/2021 12:00:00 AM EDT [facility] ([facility]) OFFICE OUTPATIENT VISIT 15 MINUTES 01/31 12:00:00 AM EDT - 01/31/2021 12:00:00 AM EDT [facility] ([facility]) OFFICE OUTPATIENT VISIT 15 MINUTES 01/31/2021 12:00:00 AM EDT [facility] ([facility]) Extended Individual Psychotherapy - 45 min 01/31/2021 12:00:00 AM EDT - 01/31/2021 12:00:00 AM EDT [facility] ([facility]) Extended Individual Psychotherapy - 45 min 12:00:00 AM EDT [facility] ([facility]) OFFICE OUTPATIENT VISIT 15 MINUTES 12/13 12:00:00 AM EDT - 12/13/2020 12:00:00 AM EDT [facility] ([facility]) OFFICE OUTPATIENT VISIT 15 MINUTES 12/13/2020 12:00:00 AM EDT [facility] ([facility]) MHC Telemed E/M Lvl 3--Est pt 11/22/2020 12:00:00 AM EDT - 11/22/2020 12:00:00 AM EDT [facility] ([facility]) MHC Telemed E/M Lvl 3--Est pt 11/22/2020 12:00:00 AM E DT [facility] ([facility]) OFFICE OUTPATIENT VISIT 15 MINUTES 10/18 12:00:00 AM EDT - 10/18/2020 12:00:00 AM EDT [facility] ([facility]) Psychotherapy ADD ON - 30 Minutes 10/18/2020 12:00:00 AM EDT [facility] ([facility]) OFFICE OUTPATIENT VISIT 15 MINUTES 10/18/2020 12:00:00 AM EDT [facility] ([facility]) Brief Individual Psychotherapy - 30 min 10/08/2020 12:00:00 AM EDT - 10/08/2020 12:00:00 AM EDT [facility] ([facility]) Brief Individual Psychotherapy - 30 min 10/08/2020 12: 00:00 AM EDT [facility] ([facility]) OFFICE OUTPATIENT VISIT 15 MINUTES 10/01 12:00:00 AM EDT - 10/01/2020 12:00:00 AM EDT [facility] ([facility]) OFFICE OUTPATIENT VISIT 15 MINUTES 10/01/2020 12:00:00 AM EDT [facility] ([facility]) TEMPMHCTelemed--Crisis Brief 08/27/2020 12:00:00 AM EST - 08/27/2020 12:00:00 AM EST [facility] ([facility]) TEMPMHCTelemed--Crisis Brief 08/27/2020 12:00:00 AM ES T [facility] ([facility]) Brief Individual Psychotherapy - 30 min 08/03/2020 12:00:00 AM EST - 08/03/2020 12:00:00 AM EST [facility] ([facility]) Brief Individual Psychotherapy - 30 min 08/02/2020 12: 00:00 AM EST [facility] ([facility]) MHC Telemed E/M Lvl 3--Est pt 07/10/2020 12:00:00 AM EST - 07/10/2020 12:00:00 AM EST [facility] ([facility]) MHC Telemed E/M Lvl 3--Est pt 07/10/2020 12:00:[address] [facility] ([facility]) Brief Individual Psychotherapy - 30 min 06/14/2020 12:00:00 AM EST - 06/14/2020 12:00:00 AM EST [facility] ([facility]) Brief Individual Psychotherapy - 30 min 06/14/2020 12: 00:00 AM EST [facility] ([facility]) OFFICE OUTPATIENT VISIT 15 MINUTES 06/12 12:00:00 AM EST - 06/12/2020 12:00:00 AM EST [facility] ([facility]) OFFICE OUTPATIENT VISIT 15 MINUTES 06/12/2020 12:00:00 AM EST [facility] ([facility]) Brief Individual Psychotherapy - 30 min 04/24/2020 12:00:00 AM EDT - 04/24/2020 12:00:00 AM EDT [facility] ([facility]) Brief Individual Psychotherapy - 30 min 04/24/2020 12: 00:00 AM EDT [facility] ([facility]) OFFICE OUTPATIENT VISIT 15 MINUTES 04/09 12:00:00 AM EDT - 04/09/2020 12:00:00 AM EDT [facility] ([facility]) OFFICE OUTPATIENT VISIT 15 MINUTES 04/09/2020 12:00:00 AM EDT [facility] ([facility]) Brief Individual Psychotherapy - 30 min 04/02/2020 12:00:00 AM EDT - 04/02/2020 12:00:00 AM EDT [facility] ([facility]) Brief Individual Psychotherapy - 30 min 04/02/2020 12: 00:00 AM EDT [facility] ([facility]) Results ID Date Data Source [id number] 05/03/2021 09:24:00 PM EDT [facility] Name Value Range Interpretation Code Description Data Fabiola rce(s) Supporting Document(s) SARS coronavirus 2 RNA [Presence] in Res piratory specimen by WILEY with probe detection NEGATIVE [facility] This lab was ordered by [facility] a nd reported by [facility]. ID Date Data Source [id number] 04/22/2021 12:00:00 AM EDT [facility] ([facility]) Name Value Range Interpretation Code Description Data Fabiola rce(s) Supporting Document(s) SARS-CoV-2 (COVID-19) RNA [Presence] in Respiratory specimen by WILEY with probe detection negative negative Sars-cov-2 [facility] ([facility]) ID Date Data Source [id number] 04/22/2021 12:00:00 AM EDT [facility] ([facility]) Name Value Range Interpretation Code Description Data Fabiola rce(s) Supporting Document(s) ID Date Data Source [id number] 04/22/2021 12:00:00 AM EDT [facility] Name Value Range Interpretation Code Description Data Fabiola rce(s) Supporting Document(s) SARS-CoV-2 NEGATIVE [facility] This lab was ordered by [facility] and reported by [facility]. ID Date Data Source [id number] 03/15/2021 11:26:00 AM EDT [facility] ([facility]) Name Value Range Interpretation Code Description Data Fabiola rce(s) Supporting Document(s) Blood Glucose: mg/dl Blood Glucose: mg/dl [facility] ([facility]) ID Date Data Source [id number] 03/06/2021 10:25:59 PM EDT [facility] Name Value Range Interpretation Code Description Data Fabiola rce(s) Supporting Document(s) Discharge Summary [facility] [id number]/[id number]jNKB1rS8dXKP9VPrNTvSgElAqNDM9 lbm [file] Q+rosa elena/gs3gKT+H56Cs5SL3TZiJye1bNM3D52fQ0UgCib/h9/AG+hD/El6HSHZ7rPv2uATW0x7IOwU4DM4 [file] AgICAgICAgICAgICAgICAgICAgICAgICAgICAgICAg ICAgICAgICAgICAgICAgICAgICAgICAgICAgICAgICANCiAgICAgICAgICAgICAgICAgICAgICAgICAg ICAgICAgICAgICAgICAgICAgICAgICAgICAgICAgICAgICAgICAgICAgICAgICAgICAgICAgICAgICAg ICAgICAgICAgICAgICANCiAgICAgICAgICAgICAgIC AgICAgICAgICAgICAgICAgICAgICAgICAgICAgICAgICAgICAgICAgICAgICAgICAgICAgICAgICAgIC AgICAgICAgICAgICAgICAgICAgICAgICANCiAgICAgICAgICAgICAgICAgICAgICAgICAgICAgICAgIC AgICAgICAgICAgICAgICAgICAgICAgICAgICAgICAg ICAgICAgICAgICAgICAgICAgICAgICAgICAgICAgICAgICANCiAgICAgICAgICAgICAgICAgICAgICAg ICAgICAgICAgICAgICAgICAgICAgICAgICAgICAgICAgICAgICAgICAgICAgICAgICAgICAgICAgICAg ICAgICAgICAgICAgICAgICANCiAgICAgICAgICAgIC AgICAgICAgICAgICAgICAgICAgICAgICAgICAgICAgICAgICAgICAgICAgICAgICAgICAgICAgICAgIC AgICAgICAgICAgICAgICAgICAgICAgICAgICANCiAgICAgICAgICAgICAgICAgICAgICAgICAgICAgIC AgICAgICAgICAgICAgICAgICAgICAgICAgICAgICAg ICAgICAgICAgICAgICAgICAgICAgICAgICAgICAgICAgICAgICANCiAgICAgICAgICAgICAgICAgICAg ICAgICAgICAgICAgICAgICAgICAgICAgICAgICAgICAgICAgICAgICAgICAgICAgICAgICAgICAgICAg ICAgICAgICAgICAgICAgICAgICANCiAgICAgICAgIC AgICAgICAgICAgICAgICAgICAgICAgICAgICAgICAgICAgICAgICAgICAgICAgICAgICAgICAgICAgIC AgICAgICAgICAgICAgICAgICAgICAgICAgICAgICANCiAgICAgICAgICAgICAgICAgICAgICAgICAgIC AgICAgICAgICAgICAgICAgICAgICAgICAgICAgICAg ICAgICAgICAgICAgICAgICAgICAgICAgICAgICAgICAgICAgICAgICANCjw/rVPrX2ettQOyweU3T3vx Xg8UVv4VUV4pp5YnRWMzSYphabIrCbwQEpDxIJLzMgyGMkb0BRpnBZ6OvLDiF6DsK3DsTPeaBQ1EJCIm PFZkeHHwJOQuCLSjHuF9WYSzGZlhMD5BhFZqUAqpCI DsFHBlRtNcXMFqPXHvUDOkBPSiAMHYUSBpWPOdLrXdRKMnGEIcFAfeGYCCPSU6PIXdWqHgTAyiTW8Cf4 PwjPF1EJp+Rm0BOM5od2WqLKa5KgQfIL2uko3EFUfMHgGaQ2DuvoP7HQC0WIMeCg5NUXHpIJPbbJS6ZM DcOLQBMcVaA1SkyU15SGOMPm8+DQplbmRvYmoNCjU0 LWEci9SsZAg6DT9VLMQaWSg7gCLyEUuiD8dmccyrHOD3mT0tiqjtWbeqXCaiCMNHLRcpn52nKNtqrJWa ktivPHERBQO0SBauFV1rTUDsPIS7PbXaYTACMD1DFTLkIPSwxVUvHCMeENPXDE4TVTtoBEN5OFCcmiLv qZJjWRspWT5KJHBeytJgJQFnGOEJFQo+Mo6PUN6km2 KfOZd5FVWqBG7dou0VBWnVDjNrY0G1jVEzG7G8EHxnKw9DKXWiHLAgFANyKHAEHWhyHP9CSX7oowK8KE 0XxVZzYYLlRHRifJByVZc2Q07dtAWiYItzPK1JDRP+Anais+Xl3QTFZnFBNoKBGiFmMhOYWLOcXfU0MrS8 IXp6QiM1ZdFH57cZfpawCeOToaGU7KUL3gRXIdTZFI NS5TvGNhiL1fjjW6PkWiJFDLBhAzJ62urRQhBLVmTGTkHFEeDf2ELKFhP1LzljVskDuaieHfIHEwWFAK UP3LHHjpzjMvfOUfmQtxKR04yVjrSL5OFv6UMeCqHZ0tap2TxPRlVf0HLKZ4Mf7IAJVfJUErSKDmPSR9 XLVlXgYsECtvCBAuVNWwTGV2VNTaSVNmFC2ZMiWbSG FhUBL5TxisRFUrSGBrpr8IWHBvGPI1AgR6ZuAvBLMlGLQiGLivFMHeARTtABY3RWMmGKNiZU9AOiJfHQ PfWDD2CKFiRVPyMDHron4ZEGZvJZQlOGPsCAQaLOHhWNVtQSdzTBIhZJD5KGS6JKDfJPPmMF6THnKhFG TySIulNxamYGDaWLDbcv6VUSWtKTNqRES8PrVcXOCr DGCxLNqnTZXqWFQqFmX2TFVyYEKrYO2SYjVuOHWrETI0KwCqGCJuFMBocg3DSPIkNYCuOSz4HkQnBXOl UIGeTOkoYXTzYHI5WKsrQFGuBKCfIR6MBhVeLPYnVOhzXEfaNJQyWPHtnx0KVULeHGSlNoSoQKUuBSOc TFKiJCyrKHRzDMOnDfWtYJGyBDSjPT7LHoGuCQWkQh WrNtcxVXWrKRSqfz9MNLNnETNnGHO5FvRuCRVyQRGaPIudEPWeNIL6BfEqKAQbYOWdGS1ODeKkWEFzOp y1MvcgBHCoXNVlkc8HLRZbHYNrIJuzHiBnSCLyDHUbNTzsDIFvGWN2PQJ7LVNzBMRiMP9UIqDeBEFvJq anIUcwAGToHXTdmx2NMEUyKFHbSTY4WnWbPRFdCMOh YDlpYQFcEYYpHfE5EJXiXNVgLD1ZMaAbYNKoYrO6QGJdXMUcNMMrfx8TPLLqRONoSHReCVWfIJWwGISk MMsoLKOkVDHtJuD5ODPfHSBjKZ6PMkFxUWVoRoM1QEUxLDFeYGPuxw7XXLQqNCDgIzz7UISzBNHnHFJs WBcwKPVeGGRmCMVdXTYwGIFkWW1ZVzXcDFKdOqOkWE QaXTRpXBChde4QMFAvXFMkFFSgOFZnTEMkNHNxBVyrPNNoCPI2CNB2BBSmMOAmDL4YFjBqOUJqCoD0ZU znFHIpUFVsrk7IRSTiUTF2QXi2QTZiPNIaZQJtMUjjZQBeIWP2VxAoFFGbEYKcNJ8CEvClCFSjABS5ZE NuULNgXFKdct8YVTDkPAW9Xop0GBQzPLIqDKQlANvf IOYnHRT3OCi8YUYtKHIeZL8RUaGpEEXbIXM6CFWhBRStPZXsal6REBLoKLO4WyF5CCJxEIYtFGWoUUfc CMMpWJHsZaibUSNkITDlMJ2IQmBmJNRzYIU5EsSkAZFyBKAruz9DBECxRKN5UiQ8EZBcMLWfMXDrEAex CPImYMLjTMLjUAOwLRDiIC3JPaKnPHFfLPDkMHVoRC VnCVLwlw3CXNMeTIZ4ZmY6ArIoJMAjRSSnJXmeHBInJRI0SvOjSGHtDFKpXO7KEwOeGWWaIXX0NdGrEP AbYSIhjt0CJUZiLOW5QLLwNuAaMCEtQWImRTyxNZZePMX6ZNYnMOGsQCTsGE9NYbHfJMQbNBP6VBauRV IfMWKhzb6LOKIpYYN3GxT2CYYaHJCaUUAeMGenKHMr DEF1FWT6RVMfKIHuQP2HTxOiHQomPMEZXwl7FOxnC6j5JPW3Lc4QR4Jqj9QoPCOaJCKRRGheGK9hijLi ETWvLr8QW0lQPmrdBOZwTlW1VrF9QNIoZnbwMzRxRxS2D4CcEdEzKYVkIO8rSARrCCEpLSQ4QPW1XSNu G1ToDVQ1Vti5SEIuZeT6OSG6EjOuPM8OSn2KTrQ8VYC1gETcAb8JHLcpUgGHYrPyVZ8ZNYb= ID Date Data Source [id number] [facility] Code Description Data Fabiola rce(s) Supporting Document(s) Glucose [Mass/volume] in Capillary blood by Glucometer 152 mg/dL 70- 140 [facility] ID Date Data Source [id number] [facility] Interpretation Code Description Data Fabiola rce(s) Supporting Document(s) Glucose [Mass/volume] in Capillary blood by Glucometer 208 mg/dL 70- 140 H [facility] ID Date Data Source [id number] 03/05/2021 05:24:04 PM [facility] Value Range Interpretation Code Description Data Fabiola rce(s) Supporting Document(s) Glucose [Mass/volume] in Capillary blood by Glucometer 142 mg/dL 70- 140 H [facility] ID Date Data Source [id number] 03/05/2021 01:23:55 PM [facility] Value Range Interpretation Code Description Data Fabiola rce(s) Supporting Document(s) Glucose [Mass/volume] in Capillary blood by Glucometer 177 mg/dL 70- 140 [facility] ID Date Data Source [id number] 03/05/2021 08:46:29 AM [facility] Value Range Interpretation Code Description Data Fabiola rce(s) Supporting Document(s) Glucose [Mass/volume] in Capillary blood by Glucometer 135 mg/dL 70- 140 [facility] ID Date Data Source [id number] 03/04/2021 08:53:42 PM [facility] Value Range Interpretation Code Description Data Fabiola rce(s) Supporting Document(s) Glucose [Mass/volume] in Capillary blood by Glucometer 150 mg/dL 70- 140 [facility] ID Date Data Source [id number] 03/04/2021 05:16:08 PM [facility] Value Range Interpretation Code Description Data Fabiola rce(s) Supporting Document(s) Glucose [Mass/volume] in Capillary blood by Glucometer 171 mg/dL 70- 140 [facility] ID Date Data Source [id number] 03/04/2021 12:55:05 PM [facility] Value Range Interpretation Code Description Data Fabiola rce(s) Supporting Document(s) Glucose [Mass/volume] in Capillary blood by Glucometer 157 mg/dL 70- 140 [facility] ID Date Data Source [id number] 03/04/2021 11:20:27 AM [facility] Value Range Interpretation Code Description Data Fabiola rce(s) Supporting Document(s) History and Physical [facility] [id number]/QCKpeZLKdb6YjAEhmQDw3SLjxPIOpJ0IgOEY0tG2lIMC1FNfXXwDgZrFtETD0 [facility] [file] TYSS2zoZKVAs8Lprx1Htef905e/engine mechanic/E6pEBLlLDaiXnD9Cqi2BJFhtLc+Re41p3lc73JNFxBFP87RxR [file] [id number]+PFlsePHfyJewQWECFtQ1Exf4WUdmJNQPDj5K ID Date Data Source [id number] 03/04/2021 11:20:17 AM EDT [facility] Name Value Range Interpretation Code Description Data Fabiola rce(s) Supporting Document(s) History and Physical [facility] [id number]/ASEpyNKAav7XsTFxyXDl0OUviNRRzC6LgTMW7mE7jUIM9QZqJKnJiBdMlBTA2 lbm [file] [id number] ID Date Data Source [id number] 03/04/2021 08:49:23 AM EDT [facility] Name Value Range Interpretation Code Description Data Fabiola rce(s) Supporting Document(s) Glucose [Mass/volume] in Capillary blood by Glucometer 102 mg/dL 70- 140 [facility] ID Date Data Source [id number] 03/03/2021 09:02:07 PM EDT [facility] Name Value Range Interpretation Code Description Data Fabiola rce(s) Supporting Document(s) Glucose [Mass/volume] in Capillary blood by Glucometer 104 mg/dL 70- 140 [facility] ID Date Data Source [id number] 03/03/2021 05:39:10 PM EDT [facility] Name Value Range Interpretation Code Description Data Fabiola rce(s) Supporting Document(s) Glucose [Mass/volume] in Capillary blood by Glucometer 101 mg/dL 70- 140 [facility] ID Date Data Source [id number] 03/03/2021 12:44:03 PM EDT [facility] Name Value Range Interpretation Code Description Data Fabiola rce(s) Supporting Document(s) Glucose [Mass/volume] in Capillary blood by Glucometer 261 mg/dL 70- 140 [facility] ID Date Data Source [id number] 03/03/2021 08:51:59 AM EDT [facility] Value Range Interpretation Code Description Data Fabiola rce(s) Supporting Document(s) Glucose [Mass/volume] in Capillary blood by Glucometer 211 mg/dL 70- 140 [facility] ID Date Data Source [id number] 03/02/2021 08:12:49 PM EDT [facility] Value Range Interpretation Code Description Data Fabiola rce(s) Supporting Document(s) Glucose [Mass/volume] in Capillary blood by Glucometer 145 mg/dL 70- 140 [facility] ID Date Data Source [id number] 03/02/2021 01:06:00 PM EDT [facility] Name Value Range Interpretation Code Description Data Fabiola rce(s) Supporting Document(s) SARS coronavirus 2 RNA [Presence] in Res piratory specimen by WILEY with probe detection NEGATIVE [facility] This lab was ordered by [facility] a nd reported by [facility]. ID Date Data Source [id number] 02/28/2021 08:51:00 PM EDT [facility] [address] [place] [address] RESPIRATORY CARE REPORT ==== ---------NAME------- NUMBER SEX AGE ADMIT DISC. XRAY# F/C TYPEPHILLIP ALEGRIA [id number] M 50 02/27/21 02/28/21 [id number] P E/R DATE OF : 1970 M/R# [id number] #: [id number] TR-08 LOCATION: EMERGENCY DEPT EKG 36072 COMP LETE:02/28/21 00:22 [place]MT [id number] PHYSICIAN: JOSE ARENAS Name Value Range Interpretation Code Description Data Fabiola rce(s) Supporting Document(s) ID Date Data Source [id number] 02/27/2021 10:13:00 PM EDT [facility] 1 OrderSheet [facility] Emergency Department [address] [place] [address] Phone #: cqn- [phone] 02/27/2021 22:09 Patient: JOSE L LAM Sex: [...] e(s) Supporting Document(s) ID Date Data Source [id number] 02/27/2021 10:13:00 PM EDT [facility] 1 Medication Reconciliation Report [facility] Emergency Department [address] [place] [address] Phone #: ext- [phone] 02/27/2021 22:09 Patient: JOSE L LAM Sex: [...] Dispense 60 tablet. Refills: 2.Substitution permitted.Pharmacy - [facility] - [address] [place], [place] [id number]. . -- Trae Garcia M.D. Name Value Range Interpretation Code Description Data Fabiola rce(s) Supporting Document(s) ID Date Data Source [id number] 02/27/2021 10:13:00 PM EDT [facility] 1 Medication Administration Record [facility] Emergency Department [address] [place] [address] Phone #: ext- [phone] 02/27/2021 22:09 Patient: JOSE L LAM Sex: M : 1970 Age: 50yWeight: 77.1 kgHeight/Length: 66 inBMI: 27.4ALLERGIES: No Known Drug AllergyDate/Time Medication Administered Medication Ordered Name Value Range Interpretation Code Description Data Fabiola rce(s) Supporting Document(s) ID Date Data Source [id number] 02/27/2021 10:13:00 PM EDT [facility] 1 General Instructions [facility] Emergency Department [address] [place] [address] Phone #: [phone] ext [phone] 02/27/2021 22:09 Patient: JOSE L LAM Sex: [...] Dispense 60 tablet. Refills: 2.Substitution permitted.Pharmacy - [facility] - [address] [facility] ; [place], [place] [id number]. .Follow-up:Return to the emergency department as needed. [...] of care. ADDITIONAL INFORMATION 2 General Instructions [facility] Emergency Department [address] [place] [address] Phone #: ext- [phone] 02/27/2021 22:09 Patient: JOSE L LAM Sex: [...] or urgent care center. 3 General Instructions [facility] Emergency Department [address] [place] [address] Phone #: ext- [phone] 02/27/2021 22:09 Patient: JOSE L LAM Sex: M : 1970 Age: 50yCall 911Call 911 if you have any of the following: Confusion Dizziness, lightheadedness, or loss of consciousness Shortness of breath Chest pain Weakness of an arm, leg, or one side of the face Sudden trouble with speech or vision [employer]. [address] [place] [address], [place] [address]. All rights reserved. This information is not [...] include: Heart disease Stroke 4 General Instructions [facility] Emergency Department [address] [place] [address] Phone #: ext- [phone] 02/27/2021 22:09 Patient: [...] taking your diabetes medicine 5 General Instructions [facility] Emergency Department [address] [place] [address] Phone #: ext- [phone] 02/27/2021 22:09 Patient: [...] (70 mg/dL or above), 6 General Instructions [facility] Emergency Department [address] [place] [address] Phone #: ext- [phone] 02/27/2021 22:09 Patient: JOSE L LAM Sex: [...] website at www.diabetes.org. Or you can call [phone].When to seek medical adviceCall your healthcare provider [...] or restless Eyesight changes 7 General Instructions [facility] Emergency Department [address] [place] [address] Phone #: ext- [phone] 02/27/2021 22:09 Patient: JOSE L LAM Sex: M : 1970 Age: 50y Drowsiness WeaknessCall 911Call 911 if any of these occur: Chest pain or shortness of breath Dizziness or fainting Weakness of an arm or leg or one side of the face Trouble speaking or seeing Confusion or loss of consciousness [employer]. [address] [place] [address]. All rights reserved. This information is not [...] o Milk or yogurt 8 General Instructions [facility] Emergency Department [address] [place] [address] Phone #: ext- [phone] 02/27/2021 22:09 Patient: [...] Academy of Nutrition and Dietetics www.eatright.org o [employer] [phone] www.diabetes.org 5208-4515 [employer]. [address] [place] [address]. All rights reserved. This information is not intended as asubstitute for professional medical care. Always follow your healthcare professional's instructions. You have been given the following additional information: Diabetes with High Blood Sugar Diabetes- Overview Diet: Diabetes 9 General Instructions [facility] Emergency Department [address] [place] [address] Phone #: ext- [phone] 02/27/2021 22:09 Patient: JOSE L LAM Sex: M : 1970 Age: 50y(Electronically signed by Trae Garcia M.D. 02/28/2021 00:32) Name Value Range Interpretation Code Description Data Fabiola rce(s) Supporting Document(s) ID Date Data Source [id number] 02/27/2021 10:13:00 PM EDT [facility] 1 Clinical Report - Nurses [facility] Emergency Department [address] [place] [address] Phone #: ext- [phone] 02/27/2021 22:09 Patient: JOSE L LAM Sex: M : 1970 Age: 50yTRIAGEArrived by EMS. Historian: patient. ( per EMS called for high BG - BG 252 per ems , also c/o left toepain BG now 259).Acuity: LEVEL 3.Chief Complaint: (high BG).Treatment MICROSTRATEGY ARCHITECT:None. --22:16 02/27/21 Katy Ortez R.N.22:11 02/27/21. BP: [...] killing yourself?". 2 Clinical Report - Nurses [facility] Emergency Department [address] [place] [address], [place] [address] Phone #: ext- [phone] 02/27/2021 22:09 Patient: JOSE L LAM Sex: [...] Patient verbalized understanding. Written instructions provided in Tongan. The patient was discharged by the physician. He was discharged home and accompanied by cab. He left ambulatory and via private vehicle. Driving 3 Clinical Report - Nurses [facility] Emergency Department [address] [place] [address] Phone #: ext- [phone] 02/27/2021 22:09 Patient: JOSE L LAM Sex: M : 1970 Age: 50y ([facility]). --:02/27/21 Leena Ann R.N. 23:20 02/27/21. BP: deferred. HR: deferred. RR: deferred. O2 saturation: deferred. Temp: deferred. Pain level now deferred. --:02/27/21 Leena Ann R.N.Locked/Released at 02/28/2021 00:22 by Katy Ortez R.N. Name Value Range Interpretation Code Description Data Fabiola rce(s) Supporting Document(s) ID Date Data Source [id number] 02/27/2021 10:13:00 PM EDT [facility] 1 Clinical Report - Physicians/Mid Levels [facility] Emergency Department [address] [place] [address] Phone #: ext- [phone] 02/27/2021 22:09 Patient: JOSE L LAM Sex: [...] associated symptoms. (pt is known IDDM, from [place], living in local motel here in [place] until his home in [place] gets cleaned up, complains of his glucose been on/off high in last 2-3 days whenever he eats; pt was in [place] and called 911 to bring him here, [...] Allergy. 2 Clinical Report - Physicians/Mid Levels [facility] Emergency Department [address] [place] [address] Phone #: ext- [phone] 02/27/2021 22:09 Patient: JOSE L LAM Sex: [...] some atlocal pharmacy; pt will f/u w [employer] in next week for DB medicine adjustment; [...] consistent 3 Clinical Report - Physicians/Mid Levels [facility] Emergency Department [address] [place] [address] Phone #: ext- [phone] 02/27/2021 22:09 Patient: [...] tablet. Refills: 2. Substitution permitted. Pharmacy - [facility] - [address] [facility] ; [place], [place] [phone]. . Follow-up: Return to the emergency department [...] care. 4 Clinical Report - Physicians/Mid Levels [facility] Emergency Department [address] [place] [address] Phone #: ext- [phone] 02/27/2021 22:09 Patient: JOSE L LAM Sex: M : 1970 Age: 50y(Electronically signed by Trae Garcia M.D. 02/28/2021 00:32) Name Value Range Interpretation Code Description Data Fabiola rce(s) Supporting Document(s) ID Date Data Source [id number] 02/03/2021 01:19:00 [place] [address] RESPIRATORY CARE REPORT ==== ---------NAME------- NUMBER SEX AGE ADMIT DISC. XRAY# F/C TYPEPHILLIP ALEGRIA [id number] M 50 02/01/21 02/02/21 [id number] P E/R DATE OF : 1970 M/R# [id number] #: [id number] TR-03 LOCATION: [facility] [address] COMPLETE:02/02/21 0 2:55 [facility] [address] PHYSICIAN: BELIA Clinton Name Value Range Interpretation Code Description Data Fabiola rce(s) Supporting Document(s) ID Date Data Source [id number] 02/01/2021 11:44:00 PM EDT [facility] 1 OrderSheet [facility] Emergency Department [address] [place] [address] Phone #: ext- [phone] 02/01/2021 23:43 Patient: [...] Verbal order per; Cheo Landis 2 OrderSheet [facility] Emergency Department [address] [place] [address] Phone #: ext- [phone] 02/01/2021 23:43 Patient: JOSE L LAM Sex: M : 1970 Age: 50yCOVID-19 CAH (Not STAT 00:12 02/02/2021 00:41 StevenSymptomatic as Cheo Landis ; Samira SEGOVIADefined by [facility])(02/02/2021) (NotFirst Test) (NotHospitalized) (Not) (NotResident inCongregate CareSetting) [...] rce(s) Supporting Document(s) ID Date Data Source [id number] 02/01/2021 11:44:00 PM EDT [facility] 1 Medication Reconciliation Report [facility] Emergency Department [address] [place] [address] Phone #: ext- [phone] 02/01/2021 23:43 Patient: [...] rce(s) Supporting Document(s) ID Date Data Source [id number] 02/01/2021 11:44:00 PM EDT [facility] 1 Medication Administration Record [facility] Emergency Department [address] [place] [address] Phone #: ext- [phone] 02/01/2021 23:43 Patient: JOSE L LAM Sex: M : 1970 Age: 50yWeight: 72.5 kgHeight/Length: 67 inBMI: 25.1ALLERGIES: None Date/Time Medication Administered Medication OrderedGiven HALDOL [IM] (HALOPERIDOL Haldol IM 5 mg (NOW x1)02:18 02/02/2021 LACTATE)Roberto Hogan RN Dose: 5 mg IM Name Value Range Interpretation Code Description Data Fabiola rce(s) Supporting Document(s) ID Date Data Source [id number] 02/01/2021 11:44:00 PM EDT [facility] 1 General Instructions [facility] Emergency Department [address] [place] [address] Phone #: [phone] tnb- [phone] 02/01/2021 23:43 Patient: JOSE L LAM Sex: [...] job or your family Arrest, conviction, and half-way sentence for possession of an illegal substance or for driving under the influenceHealth problems Strokes, heart attacks, and kidney failure 2 General Instructions [facility] Emergency Department [address] [place] [address] Phone #: ext- [phone] 02/01/2021 23:43 Patient: [...] of the resources below for help: National [employer] on Alcoholism and Drug Dependence, www.ncadd.org, Narcotics Anonymous, www.na.org, [employer] Alcohol and Substance Abuse Information Center, www.Towergate, . This center can refer you to a treatment program.Call [phone] if any of the following occur: Seizure Hard time breathing or slow, irregular breathing Chest pain 3 General Instructions [facility] Emergency Department [address] [place] [address] Phone #: ext- [phone] 02/01/2021 23:43 Patient: [...] swelling, or tenderness at an injection site [id number] [employer]. [address] [place] [address]. All rights reserved. This information is not intended as asubstitute for professional medical care. Always follow your healthcare professional's instructions. You have been given the following additional information: Drug Abuse(Electronically signed by Cheo Landis 02/03/2021 07:10) Name Value Range Interpretation Code Description Data Fabiola rce(s) Supporting Document(s) ID Date Data Source [id number] 02/01/2021 11:44:00 PM EDT [facility] 1 Clinical Report - Nurses [facility] Emergency Department [address] [place] [address] Phone #: ext- [phone] 02/01/2021 23:43 Patient: JOSE L LAM Sex: M : 1970 Age: 50yTRIAGEHistorian: EMS.Triage time: 23:41 02/01/2021.Chief Complaint: HALLUCINATIONS.Onset: just prior to arrival. ( pt called 911 stating that there were people in his hotel room. 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 --23:47 02/01/21 Bhavya Hogan R.N.Acuity: [...] Bhavya Khalil 2 Clinical Report - Nurses [facility] Emergency Department [address] [place] [address] Phone #: ext- [phone] 02/01/2021 23:43 Patient: [...] Hogan R.N. ( 0115 Chart faxed to [facility] Cane Weigher.). --02:54 02/02/21 Bhavya Hogan R.N. 02:00 02/02/21. BP: 148/101. MAP: 116. HR: 102. RR: 20. O2 saturation: 100%. Pain level now: 0/10. --02:56 02/02/21 Bhavya Hogan R.N. ( 219 Call placed to [facility], awaiting call back.). --02:59 02/02/21 Bhavya Hogan R.N. ( 224 Pt out of bed to bathroom, decided that he did not want staff in there with him. Started to get agitated. States that he is seeing people in his room behind his bed. Wants to have security with him to 3 Clinical Report - Nurses [facility] Emergency Department [address] [place] [address] Phone #: ext- [phone] 02/01/2021 23:43 Patient: JOSE L LAM Sex: M : 1970 Age: 50y keep him safe.). --03:02 02/02/21 Bhavya Hogan R.N. ( 249 Pt requests to speak to the supervisor varnish. KM at bedside.). --03:03 02/02/21 Bhavya Hogan [...] Patient verbalized understanding. Written instructions provided in Tongan. The patient was discharged by the physician. [...] rce(s) Supporting Document(s) ID Date Data Source [id number] 02/01/2021 11:44:00 PM EDT [facility] 1 Clinical Report - Physicians/Mid Levels [facility] Emergency Department [address] [place] [address] Phone #: ext- [phone] 02/01/2021 23:43 Patient: JOSE L LAM Sex: [...] is present. Additional history - Staying at [facility] past week. Patient seeing people in [...] reviewed. 2 Clinical Report - Physicians/Mid Levels [facility] Emergency Department [address] [place] [address] Phone #: ext- [phone] 02/01/2021 23:43 Patient: [...] 14.8) 3 Clinical Report - Physicians/Mid Levels [facility] Emergency Department [address] [place] [address] Phone #: ext- [phone] 02/01/2021 23:43 [id number] Sex: M : 1970 Age: 50y PLATELETS [...] Male GFR Interprentation 20-49 yrs >60 mL/min [id number] yrs >56 mL/min Normal 60-69 yrs >49 mL/min Normal 70-79yrs>42 mL/min Normal 80 and above >35 mL/min Normal Female GFRInterpretation 20-39 yrs >60 mL/min Normal 40-49 yrs >58 mL/minNormal 50-59 yrs >51 mL/min Normal 60-69 yrs >45 mL/min Yopurf05-31 yrs >39 mL/min Normal 80 and above >32 mL/min NormalTSH: (AYRED: 02/02/2021 00:25) ( MsgRcvd 02/02/2021 01:20) Final results Test Result Flag Units (Reference) TSH 0.13 L uIU/mL (0.47 - 5.01)Acetaminophen Level: (YARED: 02/02/2021 00:25) ( MsgRcvd 02/02/2021 01:20) Final results Test Result Flag Units (Reference) 4 Clinical Report - Physicians/Mid Levels [facility] Emergency Department [address] [place] [address] Phone #: ext- [phone] 02/01/2021 23:43 Patient: JOSE L LAM [facility]#: [id number] Sex: M : 1970 Age: 50y ACETAMINOPHEN <5.0 UG/ML (0.0 - 30.0) Salicylate Level: (YARED: 02/02/2021 00:25) ( [facility] 02/02/2021 01:20) Final results Test Result Flag Units (Reference) SALICYLATE <0.4 L mg/dL (2.0 - 20.0) ETOH: (YARED: 02/02/2021 00:25) ( [facility] 02/02/2021 01:20) Final results Test Result Flag Units (Reference) ALCOHOL <10.0 MG/DL ALCOHOL % 0.00 % (0.00 - 0.01) *FOR MEDICAL PURPOSES ONLY* Drug Screen-Urine: (YARED: 02/02/2021 00:25) ( [facility] 02/02/2021 01:04) Final results Test Result Flag [...] stable. 5 Clinical Report - Physicians/Mid Levels [facility] Emergency Department [address] [place] [address] Phone #: ext- [phone] 02/01/2021 23:43 Patient: [...] rce(s) Supporting Document(s) ID Date Data Source [id number] 02/02/2021 10:22:00 [place] [address] PHONE: [phone] FAX: [phone] Name .................. : PHILLIP ALEGRIA Acct Number.................. : [id number] ROOM. ................. : TR-03 MR Number ................... : [id number] Stay type ............. : E/R Discharge Date......... ... : 02/02/21 Admit Date ......... : 02/01/21 Admit Phys .................... : BELIA Clinton Date of ....... : 1970 Family Phys ................... : NON STAFF Phone .................. : [phone] Age ................................ : 50 Film# .................. .:[id number] Sex ................................. : M Unsigned transcriptions are preliminary reports and do not represent a medical or legal document CHEST PORTABLE [id number] COMPLETE:02/02/21 02:16 MWB 13385 Reas on(s): Cough PORTABLE CHEST SINGLE VIEW [...] Date: 02/02/21 09:25, Dictation Date: Copy for: [address] [place] [address] REC DISC HARGED Page 1 of 1 Name Value Range Interpretation Code Description Data Fabiola rce(s) Supporting Document(s) ID Date Data Source [id number] 02/02/2021 12:55:00 AM EDT [facility] NOT DETECTEDNOT DETECTED{ PROC EDURAL CONTROL VALID [...] Name Value Range Interpretation Code Description Data [facility](s) Supporting Document(s) ID Date Data Source [id number] 02/02/2021 01:23:00 AM EDT [facility] Name Value Range Interpretation Code Description Data [facility](s) Supporting Document(s) [facility] COL[facility] yellow NORMAL: Yellow [facility] CLARITY clear NORMAL: Clear [facility] Specific gravity of Urine by Test strip 1.025 1.001 - 1.030 [facility] pH 5 5 - 9 [facility] Glucose [Mass/volume] in Urine by Test strip 1000 NORMAL: Negat malu [facility] Bilirubin.total [Presence] in Urine by Test strip NEG NORMAL: Negative [facility] Ketones [Presence] in Urine by Test strip 150 NORMAL: Negative [facility] Protein [Mass/volume] in Urine by Test strip 15 NORMAL: Negat malu [facility] Nitrite [Presence] in Urine by Test strip NEG NORMAL: Negative [facility] BLOOD NEG NORMAL: Negative [facility] LEUK EST NEG NORMAL: Negative [facility] Urobilinogen [Mass/volume] in Urine by Test strip NOR less danya n 1.0 mg/dL [facility] MICROSCOPIC See Below [facility] ital WBC 0 - 1 NORMAL: NONE SEEN [facility] Erythrocytes [#/volume] in Urine by Test strip 0 - 1 NORMAL: NON E SEEN [facility] EPITHELIAL FEW NORMAL: NONE SEEN [facility] Bacteria [Presence] in Urine sediment by Light microscopy Tr aanstasiya NORMAL: NONE SEEN [facility] Mucus [Presence] in Urine sediment by Light microscopy 1+ NOR MAL: NONE SEEN [facility] ID Date Data Source [id number] 02/02/2021 01:20:00 AM EDT [facility] Name Value Range Interpretation Code Description Data Fabiola rce(s) Supporting Document(s) Ethanol [Moles/volume] in Blood <10.0 MG/DL [facility] ALCOHOL % 0.00 % 0.00 - 0.01 [facility] *FOR MEDICAL PURPOSES ONLY * ID Date Data Source [id number] 02/02/2021 01:20:00 AM EDT [facility] Name Value Range Interpretation Code Description Data Fabiola rce(s) Supporting Document(s) SALICYLATE <0.4 mg/dL 2.0 - 20.0 L [facility] ID Date Data Source [id number] 02/02/2021 01:20:00 AM T [facility] Value Range Interpretation Code Description Data Fabiola rce(s) Supporting Document(s) Acetaminophen [Presence] in Urine <5.0 UG/ML 0.0 - 30.0 [facility] ID Date Data Source [id number] 02/02/2021 01:19:00 AM EDT [facility] Name Value Range Interpretation Code Description Data Fabiola rce(s) Supporting Document(s) Thyrotropin [Units/volume] in Serum or Plasma by Detec tion limit <= 0.05 mIU/L 0.13 uIU/mL 0.47 - 5.01 L [facility] ID Date Data Source [id number] 02/02/2021 01:19:00 AM EDT [facility] Name Value Range Interpretation Code Description Data Fabiola rce(s) Supporting Document(s) COMPREHENSIVE METABOLIC PANEL [facility] COMPREHENSIVE METABOLIC PANEL Sodium [Moles/volume] in Serum or Plasma 135 mEq/L 134 - 153 [facility] Potassium [Moles/volume] in Serum or Plasma 4.3 mEq/L 3.6 - 5.0 [facility] Chloride [Moles/volume] in Serum or Plasma 100 mEq/L 98 - 107 [facility] Carbon dioxide, total [Moles/volume] in Serum or Plasma 22 MEQ/L 22 - 30 [facility] Glucose [Mass/volume] in Serum or Plasma 295 MG/DL 70 - 99 H [facility] BUN 26 MG/DL 7 - 21 H [facility] al Creatinine [Mass/volume] in Serum or Plasma 0.9 MG/DL 0.7 - 1.5 [facility] BUN/CREAT 29 8 - 27 H [facility] Protein [Mass/volume] in Serum or Plasma 7.6 G/DL 6.3 - 8.2 [facility] Albumin [Mass/volume] in Serum or Plasma 4.5 G/DL 3.9 - 5.0 [facility] Globulin [Mass/volume] in Serum by calculation 3.1 GM/DL 2.4 - 3.2 [facility] A/G RATIO 1.5 0.8 - 2.0 [facility] Calcium [Mass/volume] in Serum or Plasma 9.4 MG/DL 8.4 - 10.2 [facility] Bilirubin.total [Mass/volume] in Serum or Plasma <0.7 MG/DL 0.2 - 1.3 [facility] Alkaline phosphatase [Enzymatic activity/volume] in Serum or Plasma 69 U/L 38 - 126 [facility] Aspartate aminotransferase [Enzymatic activity/volume] in Serum or Plasma 19 U/L 5 - 40 [facility] Alanine aminotransferase [Enzymatic activity/volume] in Seru m or Plasma 14 U/L 7 - 56 [facility] Anion gap 3 in Serum or Plasma 13.0 mmol/L 8.0 - 16.0 [facility] AGE 50 yrs [facility] NON-AA GFR >60 mL/min [facility] AFR AMER GFR >60 mL/min [facility] Male GFR In terprentation [...] >32 mL/min Normal ID Date Data Source [id number] 02/02/2021 01:04:00 AM EDT [facility] Name Value Range Interpretation Code Description Data Fabiola rce(s) Supporting Document(s) DRUG SCREEN URINE [facility] URINE DRUG SCREEN Amphetamine [Presence] in Urine by Screen method PRESUMP POS CHANG L: NEGATIVE [facility] BARBITURATES NEGATIVE NORMAL: NEGATIVE [facility] BENZO PRESUMP POS NORMAL: NEGATIVE [facility] COCAINE NEGATIVE NORMAL: NEGATIVE [facility] Tetrahydrocannabinol [Presence] in Urine NEGATIVE NORMAL: NEGATIVE [facility] OPIATES NEGATIVE NORMAL: NEGATIVE [facility] Phencyclidine [Presence] in Urine by Screen method NEGATIVE NOR MAL: NEGATIVE [facility] \\BLDo\\URINE DRUG SCR EEN INTERPRETATION\\BLDx\\ THE CUTOFFF LEVELS FOR DETECTION ARE FOLLOWS: AMPHETAMINES 1000 ng/ml BARBITUARATES 200 ng/ml BENZODIAZEPINES 100 ng/ml THC 50 ng/ml PHENCYCLIDINE 25 ng/ml OPIATES 300 ng/ml COCAINE 300 ng/ml ALL POSITIVES ARE CONSIDERED PRESUMPTIVE POSITIVE CONFIRMATION WILL BE PERFORMED AT PHYSICIAN REQUEST. ID Date Data Source [id number] 02/02/2021 12:41:00 AM EDT [facility] Name Value Range Interpretation Code Description Data Fabiola rce(s) Supporting Document(s) CBC W/AUTOMATED DIFF [facility] COMPLETE BLOOD COUNT Leukocytes [#/volume] in Blood by Automated count 7.4 10^3/uL 4.2 - 1 1.0 [facility] Erythrocytes [#/volume] in Blood by Automated count 4.47 10^6/uL 4. 50 - 6.30 L [facility] Hemoglobin [Mass/volume] in Blood 12.9 g/dL 14.0 - 16.0 L [facility] Hematocrit [Volume Fraction] of Blood by Automated count 39.2 % 4 1.0 - 51.0 L [facility] Erythrocyte mean corpuscular volume [Entitic volume] by Auto mated count 87.7 fL 80.0 - 94.0 [facility] Erythrocyte mean corpuscular hemoglobin [Entitic mass] by Automated count 28.9 pg 27.0 - 34.0 [facility] Erythrocyte mean corpuscular hemoglobin concentration [Mass/volume] by Automated count 32.9 g/dL 31.0 - 36.0 [facility] Erythrocyte distribution width [Ratio] by Automated count 14.3 % 11.5 - 14.8 [facility] Platelets [#/volume] in Blood by Automated count 179 10^3/uL 150 - 45 0 [facility] Platelet mean volume [Entitic volume] in Blood by Automated count 9.1 fL 7.4 - 10.4 [facility] Neutrophils/100 leukocytes in Blood by Automated count 83.4 % 37. 0 - 80.0 H [facility] Lymphocytes/100 leukocytes in Blood by Manual count 10.1 % 25.0 - 40.0 L [facility] Monocytes/100 leukocytes in Blood by Automated count 5.7 % 3.0 - 8.0 [facility] Eosinophils/100 leukocytes in Blood by Automated count 0.1 % 0.0 - 7.0 [facility] Basophils/100 leukocytes in Blood by Automated count 0.4 % 0.0 - 2.0 [facility] %IG 0.3 % 0.0 - 0.0 [facility] %[facility] 0.0 % 0.0 - 0.0 [facility] al Neutrophils [#/volume] in Blood by Automated count 6.14 10^3/uL 2.00 - 6.90 [facility] Lymphocytes [#/volume] in Blood by Automated count 0.74 10^3/uL 0.60 - 3.40 [facility] Monocytes [#/volume] in Blood by Automated count 0.42 10^3/uL 0.00 - 0.90 [facility] Eosinophils [#/volume] in Blood by Automated count 0.01 10^3/uL 0.00 - 0.70 [facility] Basophils [#/volume] in Blood by Automated count 0.03 10^3/uL 0.00 - 0.20 [facility] #IG 0.02 10^3/uL 0.00 - 0.10 [facility] #NRBC 0.00 10^3/uL 0.00 - 0.00 [facility] MANUAL DIFF NOT INDICATED [facility] RBC MORPH NOT INDICATED [facility] spital ID Date Data Source [id number] 01/23/2021 09:57:00 AM EDT [facility]) Name Value Range Interpretation Code Description Data Fabiola rce(s) Supporting Document(s) PSA total 2.6 NG/mL 0.0-4.0 PSA Total [facility]) PSA comment . PSA Comment [place] ([facility]) ID Date Data Source [id number] 01/23/2021 09:57:00 AM EDT [facility]) Name Value Range Interpretation Code Description Data Fabiola rce(s) Supporting Document(s) Hemoglobin A1c/Hemoglobin.total in Blood 10.6 % Hemoglobin a1C [place] ([facility]) estimated average glucose 258 mg/dL 60-110 Above high norm al Estimated Average Glucose [facility]) ID Date Data Source [id number] 01/23/2021 09:57:00 AM EDT [facility]) Name Value Range Interpretation Code Description Data Fabiola rce(s) Supporting Document(s) total 25(oh) vitamin D 14.6 NG/mL 30.0-100.0 Below low normal T otal 25(Oh) Vitamin D [facility]) ID Date Data Source [id number] 01/23/2021 09:57:00 AM EDT [place] ([facility]) Name Value Range Interpretation Code Description Data Fabiola rce(s) Supporting Document(s) thyroid stimulating hormone 0.947 uIU/mL 0.358-3.740 Thyroid Stimulating Hormone [place] ([facility]) free T4 0.81 NG/dL 0.76-1.46 Free T4 [facility] ([facility]) ID Date Data Source [id number] 01/23/2021 09:57:00 AM EDT [facility] ([facility]) Name Value Range Interpretation Code Description Data Fabiola rce(s) Supporting Document(s) triglycerides level 164 mg/dL <150 Above high normal Triglycer ides Level [place] ([facility]) cholesterol level 178 mg/dL <200 Cholesterol Level [facility] ([facility]) HDL cholesterol 68 mg/dL >40 HDL Cholesterol [facility] ([facility]) Cholesterol in LDL [Mass/volume] in Serum or Plasma 77 mg/dL <1 00 LDL Cholesterol [place] ([facility]) non-HDL-C 110 mg/dL Non-hdl-c [place] ([facility]) cholesterol risk ratio <5 Cholesterol R isk Ratio [facility] ([facility]) ID Date Data Source [id number] 01/23/2021 09:57:00 AM EDT [place] ([facility]) Name Value Range Interpretation Code Description Data Fabiola rce(s) Supporting Document(s) blood urea nitrogen 12 mg/dL 7-18 Blood Urea Nitro gen [facility] ([facility]) glucose, fasting 354 mg/dL 70-100 Above high normal Glucose, Fas ting [facility] ([facility]) glomerular filtration rate > 60.0 >56 [place] r Filtration Rate [facility] ([facility]) creatinine for GFR 0.88 mg/dL 0.70-1.30 Creatinine for GF R [facility] ([facility]) sodium level 134 mEq/L 136-145 Below low normal Sodium Level [facility] NA ([facility]) potassium serum 4.1 mEq/L 3.5-5.1 Potassium Serum [facility] NA ([facility]) chloride level 101 mEq/L 98-107 Chloride Level [facility] ([facility]) anion gap 9 mEq/L 8-16 Anion Gap [facility] ([facility]) carbon dioxide level 24 mEq/L 21-32 Carbon Dioxide Level [facility] ([facility]) calcium level 9.3 mg/dL 8.5-10.1 Calcium Level [facility] ( [facility]) AST/SGOT 13 U/L 7-37 AST/SGOT [facility] ([facility]) ALT/SGPT 19 U/L 12-78 ALT/SGPT [facility] ([facility]) alkaline phosphatase 79 U/L 45-117 Alkaline Phosph atase [facility] ([facility]) bilirubin,total 0.3 mg/dL 0.2-1.0 Bilirubin,total [facility] ([facility]) total protein 8.2 gm/dL 6.4-8.2 Total Protein [facility] ( [facility]) albumin 3.7 gm/dL 3.2-5.2 Albumin [facility] ([facility]) albumin/globulin ratio Albumin/globu liz Ratio [facility] ([facility]) ID Date Data Source [id number] 01/23/2021 09:57:00 AM EDT [facility] ([facility]) Name Value Range Interpretation Code Description Data Fabiola rce(s) Supporting Document(s) erythrocyte sedimentation rate 35 mm/HR 0-20 Above high normal Erythrocyte Sedimentation Rate [facility] ([facility]) ID Date Data Source [id number] 01/23/2021 09:57:00 AM EDT [place] ([facility]) Name Value Range Interpretation Code Description Data Fabiola rce(s) Supporting Document(s) white blood count 7.0 10 4.0-10.0 White Blood Count [facility] ([facility]) hemoglobin 12.6 g/dL 13.5-17.5 Below low normal Hemoglobin [facility] ( [facility]) red blood count 4.41 10 4.30-6.10 Red Blood Count [facility] NA ([facility]) hematocrit 39.0 % 42.0-52.0 Below low normal Hematocrit [facility] ( [facility]) mean corpuscular volume 88.4 fL 80.0-96.0 Mean Corpusc ular Volume [facility] ([facility]) mean corpuscular HGB conc 32.3 g/dL 32.0-36.5 Mean Corpu scular HGB Conc [facility] ([facility]) mean corpuscular hemoglobin 28.6 pg 27.0-33.0 Mean Cor puscular Hemoglobin [facility] ([facility]) platelet count, automated 243 10 150-450 Platelet C ount, Automated [facility] ([facility]) red cell distribution width 14.1 % 11.5-14.5 Red Cell Distribution Width [facility] ([facility]) lymph % 19.9 % 24.0-44.0 Below low normal Lymph % [facility] ( [facility]) neutrophils % 70.2 % 36.0-66.0 Above high normal Neutrophils % A [facility] ([facility]) eos % 0.9 % 0.0-3.0 Eos % [facility] ([facility]) mono % 8.3 % 2.0-8.0 Above high normal [place] % [facility] ([facility]) baso % 0.3 % 0.0-1.0 Baso % [facility] ([facility]) nucleated red blood cell % 0.0 % 0-0 Nucleated Red Blood Cell % [facility] ([facility]) immature granulocyte % 0.4 % 0-3.0 Immature Gran ulocyte % [facility] ([facility]) lymph # 1.4 10 1.5-5.0 Below low normal Lymph # [facility] ( [facility]) neutrophils # 4.9 10 1.5-8.5 Neutrophils # [facility] ( [facility]) eos # 0.1 10 0.0-0.5 Eos # [facility] ([facility]) mono # 0.6 10 0.0-0.8 [place] # [facility] ([facility]) baso # 0.0 10 0.0-0.2 Baso # [facility] ([facility]) ID Date Data Source [id number] 12/13/2020 03:17:00 AM EDT [facility] Name Value Range Interpretation Code Description Data Fabiola rce(s) Supporting Document(s) SARS-CoV-2 (COVID 19) NEGATIVE - SARS-CoV-2 (COVID19) [facility] This lab was ordered by [facility] a nd reported by [facility]. ID Date Data Source [id number] 11/30/2020 03:22:00 PM EDT [facility] Name Value Range Interpretation Code Description Data Fabiola rce(s) Supporting Document(s) SARS coronavirus 2 RNA [Presence] in Res piratory specimen by WILEY with probe detection NEGATIVE [facility] This lab was ordered by [facility] a nd reported by [facility]. ID Date Data Source [id number] 11/06/2020 11:14:00 AM EDT [facility] Name Value Range Interpretation Code Description Data Fabiola rce(s) Supporting Document(s) GLUCOSE,METER 65-100 Above high normal [facility] ID Date Data Source [id number] 11/06/2020 09:49:14 AM EDT [facility] PATIENT INFORMATIONPatient MRN Name Date of [id number] Jose L Lam 1970 50 y.o. Weight Gender PT Class 66.7 kg M Psych InptPT Location Admission Date/Time Visit ID Attending [id number] 10/28/20 1613 --- Christine Cobb MD([id number]) EPI ID CSN Admitting Provider [id number] Eric Michel DO([id number])Psychiatric Discharge NoteDischarge Diagnosis: chronic schizophreniaPrincipal Problem: Paranoid schizophrenia ([facility] HCC Code)Active Problems: Depressive disorder Generalized anxiety disorder Polysubstance dependence ([facility] HCC Code) Tobacco user Viral hepatitis C Vitamin D deficiency Type 2 diabetes mellitus without complication, with long-term current use ofinsulin ([facility] HCC Code)Hospital Course: Jose L Lam [...] livable but his therapist(Nataliia Harris from [facility]) was able to confirm that it is [...] will be followed up on an outpatientbasis.Jessenia GarrettMO psychiatry attending addendumPatient seen and evaluated with medical student. Chart reviewed. The abovenote has been carefully reviewed and edited to reflect the input of this fha underwriter.The patient is currently presenting as not psychotic, showing no evidence ofsuicidal thinking and future focused on return home.Christine Cobb MD Name Value Range Interpretation Code Description Data Fabiola rce(s) Supporting Document(s) ID Date Data Source [id number] 11/06/2020 07:10:00 AM EDT [facility] Value Range Interpretation Code Description Data Fabiola rce(s) Supporting Document(s) GLUCOSE,METER 65-100 Above high normal [facility] ID Date Data Source [id number] 11/05/2020 07:44:00 PM EDT [facility] Value Range Interpretation Code Description Data Fabiola rce(s) Supporting Document(s) GLUCOSE,METER 65-100 Above high normal [facility] ID Date Data Source [id number] 11/05/2020 04:12:00 PM EDT [facility] Value Range Interpretation Code Description Data Fabiola rce(s) Supporting Document(s) GLUCOSE,METER 65-100 Above high normal [facility] ID Date Data Source [id number] 11/05/2020 11:22:00 AM EDT [facility] Value Range Interpretation Code Description Data Fabiola rce(s) Supporting Document(s) GLUCOSE,METER 65-100 Above high normal [facility] ID Date Data Source [id number] 11/05/2020 06:45:00 AM EDT [facility] Value Range Interpretation Code Description Data Fabiola rce(s) Supporting Document(s) GLUCOSE,METER 65-100 Above high normal [facility] ID Date Data Source [id number] 11/04/2020 09:18:00 PM EDT [facility] Value Range Interpretation Code Description Data Fabiola rce(s) Supporting Document(s) GLUCOSE,METER 65-100 Above high normal [facility] ID Date Data Source [id number] 11/04/2020 11:20:00 AM EDT [facility] Value Range Interpretation Code Description Data Fabiola rce(s) Supporting Document(s) GLUCOSE,METER 65-100 Above high normal [facility] ID Date Data Source [id number] 11/04/2020 08:22:00 AM EDT [facility] Value Range Interpretation Code Description Data Fabiola rce(s) Supporting Document(s) GLUCOSE,METER 65-100 Above high normal [facility] ID Date Data Source [id number] 11/04/2020 06:52:00 AM EDT [facility] Name Value Range Interpretation Code Description Data Fabiola rce(s) Supporting Document(s) GLUCOSE,METER 65-100 Normal (applies to non-numeric re sults) [facility] ID Date Data Source [id number] 11/03/2020 09:40:00 PM EDT [facility] Name Value Range Interpretation Code Description Data Fabiola rce(s) Supporting Document(s) GLUCOSE,METER 65-100 Above high normal [facility] ID Date Data Source [id number] 11/03/2020 11:18:00 AM EDT [facility] Name Value Range Interpretation Code Description Data Fabiola rce(s) Supporting Document(s) GLUCOSE,METER 65-100 Above high normal [facility] ID Date Data Source [id number] 11/02/2020 09:13:00 PM EDT [facility] Value Range Interpretation Code Description Data Fabiola rce(s) Supporting Document(s) GLUCOSE,METER 65-100 Above high normal [facility] ID Date Data Source [id number] 11/02/2020 04:39:00 PM EDT [facility] Value Range Interpretation Code Description Data Fabiola rce(s) Supporting Document(s) GLUCOSE,METER 65-100 Above high normal [facility] ID Date Data Source [id number] 11/02/2020 11:24:00 AM EDT [facility] Value Range Interpretation Code Description Data Fabiola rce(s) Supporting Document(s) GLUCOSE,METER 65-100 Above high normal [facility] ID Date Data Source [id number] 11/02/2020 06:00:00 AM EDT [facility] Value Range Interpretation Code Description Data Fabiola rce(s) Supporting Document(s) GLUCOSE,METER 65-100 Above high normal [facility] ID Date Data Source [id number] 11/01/2020 04:15:00 PM EDT [facility] Value Range Interpretation Code Description Data Fabiola rce(s) Supporting Document(s) GLUCOSE,METER 65-100 Above high normal [facility] ID Date Data Source [id number] 11/01/2020 11:27:00 AM EDT [facility] Name Value Range Interpretation Code Description Data Fabiola rce(s) Supporting Document(s) GLUCOSE,METER 65-100 [facility] Date Data Source [id number] 11/01/2020 10:51:00 AM EDT [facility] Name Value Range Interpretation Code Description Data Fabiola rce(s) Supporting Document(s) SARS coronavirus 2 RNA [Presence] in Uns pecified specimen by WILEY with probe detection Not detected [facility] This lab was ordered by [facility] and reported by [facility]. ID Date Data Source [id number] 11/01/2020 01:37:00 PM EDT [facility] Source->NasopharyngealIs this test for d iagnosis or screening?->ScreeningRelease to patient->ImmediateReason for COVID-19 test->Routine testing of asymptomatichospitalized patientsUnit Collect Name Value Range Interpretation Code Description Data Afbiola rce(s) Supporting Document(s) SOURCE Nasopharyngeal [facility] SARS-CoV-2 BY RT-PCR Not detected Normal (applies to non-n umeric results) [facility] NEGATIVE RESULTA negative ("Not detected ") result does not [id number] infection, and a negative result should not [...] or call 911. For additional information please [email or web address] es: Coronavirus in [facility]www.[email or web address] medical centerGet the latest reopening updates, travel guidelines, and learn howsierra vista hospitales and schools are impacted.[email or web address].[place].gov/homeTesting was performed on the yony? Alvina? System using yony?SARS-CoV-2 & Influenza A/B reagent. This is a cjbv-reseBH-PWC assay which qualitatively detects nucleic acid fromsevere acute respiratory syndrome coronavirus 2 (SARS-CoV-2)in suitable respiratory specimens such as nasopharyngeal swabs.This assay has been approved for use under an Emergency UseAuthorization (EUA) by the Food and Drug Administration (FDA). ID Date Data Source [id number] 11/01/2020 06:48:00 AM EDT [facility] Value Range Interpretation Code Description Data Fabiola rce(s) Supporting Document(s) GLUCOSE,METER 65-100 Above high normal [facility] ID Date Data Source [id number] 10/31/2020 08:02:00 PM EDT [facility] Value Range Interpretation Code Description Data Fabiola rce(s) Supporting Document(s) GLUCOSE,METER 65-100 Above high normal [facility] ID Date Data Source [id number] 10/31/2020 04:11:00 PM EDT [facility] Value Range Interpretation Code Description Data Fabiola rce(s) Supporting Document(s) GLUCOSE,METER 65-100 Above high normal [facility] ID Date Data Source [id number] 10/31/2020 11:19:00 AM EDT [facility] Value Range Interpretation Code Description Data Fabiola rce(s) Supporting Document(s) GLUCOSE,METER 65-100 Above high normal [facility] ID Date Data Source [id number] 10/31/2020 06:50:00 AM EDT [facility] Value Range Interpretation Code Description Data Fabiola rce(s) Supporting Document(s) GLUCOSE,METER 65-100 Above high normal [facility] ID Date Data Source [id number] 10/30/2020 09:47:00 PM EDT [facility] Value Range Interpretation Code Description Data Fabiola rce(s) Supporting Document(s) GLUCOSE,METER 65-100 Above high normal [facility] ID Date Data Source [id number] 10/30/2020 04:28:00 PM EDT [facility] Name Value Range Interpretation Code Description Data Fabiola rce(s) Supporting Document(s) GLUCOSE,METER 65-100 Above high normal [facility] ID Date Data Source [id number] 10/30/2020 12:10:00 PM EDT [facility] Name Value Range Interpretation Code Description Data Fabiola rce(s) Supporting Document(s) GLUCOSE,METER 65-100 Normal (applies to non-numeric re sults) [facility] ID Date Data Source [id number] 10/30/2020 11:15:23 AM EDT [facility] PATIENT INFORMATIONPatient MRN Name Date of [id number] Jose L Lam 1970 50 y.o. Weight Gender PT Class 66.7 kg M EmergencyPT Location Admission Date/Time Visit ID Attending [id number] 10/30/20 0924 --- Amna Lobato MD([id number]) EPI ID CSN Admitting Provider [id number] ---[facility] DE[facility]THistoryChief ComplaintPatient presents with Srlkqnhvyrt16 y.o. male with past medical history significant [...] or trauma. No syncope.History provided by: PatientLanguage replenishment specialist used: NoPast Medical History:Diagnosis Date Depression Diabetes mellitus ([facility] HCC Code) Schizo affective schizophrenia ([facility] HCC Code)History reviewed. No pertinent surgical [...] reviewed: E[facility] reviewed [facility] ([facility]pm): 89 bpmEKG rhythm: sinus rhythmAxis: normalPR interval: normal VT intervalQRS interval: normal QRS intervalQT interval: normal QT intervalST segment: ST segments normalT wave inversion on lead: aVL and X5Anvijmtw impression: NSR ED CourseDifferential diagnosis: Dehydration, electrolyte [...] He agreeswith plan for transfer back to [facility]. I spoke with our CPEP team and they statedthat patient should be able to be transferred to [facility] without a anotherpsychiatric evaluation in the [...] rce(s) Supporting Document(s) ID Date Data Source [id number] 10/30/2020 09:54:00 AM EDT [facility] Release to patient->ImmediateUnit Colle t Name Value Range Interpretation Code Description Data Fabiola rce(s) Supporting Document(s) SODIUM 136-145 Normal (applies to non-numeric resul ts) [facility] POTASSIUM 3.5-5.2 Normal (applies to non-numeric resul ts) [facility] CHLORIDE 100-110 Normal (applies to non-numeric resul ts) [facility] CO2 22-31 Normal (applies to non-numeric results) [facility] ANION GAP 3-18 Normal (applies to non-numeric resul ts) [facility] BUN 7-21 Above high normal [facility] CREATININE 0.8-1.3 Normal (applies to non-numeric resul ts) [facility] GLUCOSE 60-100 Above high normal [facility] CALCIUM 8.4-10.0 Normal (applies to non-numeric resul ts) [facility] ID Date Data Source [id number] 10/30/2020 10:01:00 AM EDT [facility] Release to patient->ImmediateUnit Collec t Name Value Range Interpretation Code Description Data Fabiola rce(s) Supporting Document(s) REACTIVE LYMPHS 0-0 Above high normal [facility] MANUAL DIFFERENTIAL PERFORMED [facility] RBC MORPHOLOGY NORMAL [facility] ID Date Data Source [id number] 10/30/2020 10:01:00 AM EDT [facility] Release to patient->ImmediateUnit Collec t Name Value Range Interpretation Code Description Data Fabiola rce(s) Supporting Document(s) WBC 4.7-10.6 Normal (applies to non-numeric resul ts) [facility] RBC 4.69-6.09 Below low normal [facility] HGB 13.8-17.9 Below low normal [facility] HCT 43-51 Below low normal [facility] MCV 80-97 Normal (applies to non-numeric results) [facility] MCH 26.6-30.7 Normal (applies to non-numeric resul ts) [facility] MCHC 31.8-34.9 Normal (applies to non-numeric resul ts) [facility] RDW 12.9-16.0 Normal (applies to non-numeric resul ts) [facility] PLATELET COUNT 142-414 Normal (applies to non-numeric r esults) [facility] MPV 8.9-12.3 Normal (applies to non-numeric resul ts) [facility] NEUTROPHILS 45-75 Normal (applies to non-numeric resu lts) [facility] LYMPHOCYTES 15-45 Normal (applies to non-numeric resu lts) [facility] MONOCYTES 0-15 Normal (applies to non-numeric resul ts) [facility] EOSINOPHILS 0-5 Normal (applies to non-numeric resu lts) [facility] BASOPHILS 0-3 Normal (applies to non-numeric resul ts) [facility] NEUTROPHIL # 2.0-7.2 Normal (applies to non-numeric res ults) [facility] LYMPHOCYTE # 0.6-3.3 Normal (applies to non-numeric res ults) [facility] MONOCYTE # 0.1-1.1 Normal (applies to non-numeric resul ts) [facility] EOSINOPHIL # 0.0-0.7 Normal (applies to non-numeric res ults) [facility] BASOPHIL # 0.0-0.1 Normal (applies to non-numeric resul ts) [facility] ID Date Data Source [id number] 10/30/2020 09:54:00 AM EDT [facility] Release to patient->ImmediateUnit [facility] t Name Value Range Interpretation Code Description Data Fabiola rce(s) Supporting Document(s) GFR BLACK 56-130 Normal (applies to non-numeric resul ts) [facility] For both GFR and GFR BLACK, th e accuracy of the GFRcalculation is contingent on a stable level of serumcreatinine. The GFR calculation is normalized to 1.73 "meterssquared" body surface area. A GFR less than 60 may alterclinical management decisions. A GFR within the age-adjustedreference range does not exclude kidney disease. ID Date Data Source [id number] 10/30/2020 09:54:00 AM EDT [facility] Release to patient->ImmediateUnit [facility] t Name Value Range Interpretation Code Description Data Fabiola rce(s) Supporting Document(s) GFR 56-130 Normal (applies to non-numeric re sults) [facility] ID Date Data Source [id number] 10/30/2020 08:56:00 AM EDT [facility] Name Value Range Interpretation Code Description Data Fabiola rce(s) Supporting Document(s) SARS coronavirus 2 RNA [Presence] in Uns pecified specimen by WILEY with probe detection Not detected [facility] This lab was ordered by [facility] and reported by [facility]. ID Date Data Source [id number] 10/30/2020 09:58:00 AM EDT [facility] Source->NasopharyngealIs this test for d iagnosis or screening?->ScreeningRelease to patient->ImmediateReason for COVID-19 test->Routine testing of asymptomatichospitalized patientsUnit Collect Name Value Range Interpretation Code Description Data Fabiola rce(s) Supporting Document(s) SOURCE Nasopharyngeal [facility] SARS-CoV-2 BY RT-PCR Not detected Normal (applies to non-n umeric results) [facility] NEGATIVE RESULTA negative ("Not detected ") result does not bbjodhkdADFB-CeY-0 infection, and a negative result should not [...] or call 911. For additional information please [email or web address]/[email or web address] es: Coronavirus in [facility]www.[email or web address] medical centerGet the latest reopening updates, travel guidelines, and learn howsierra vista hospitales and schools are impacted.[email or web address] .health.wi.gov/homeTesting was performed on the yony? Alvina? System using yony?SARS-CoV-2 & Influenza A/B reagent. This is a kkss-poyiBC-UIC assay which qualitatively detects nucleic acid fromsevere acute respiratory syndrome coronavirus 2 (SARS-CoV-2)in suitable respiratory specimens such as nasopharyngeal swabs.This assay has been approved for use under an Emergency UseAuthorization (EUA) by the Food and Drug Administration (FDA). ID Date Data Source [id number] 10/30/2020 06:56:00 AM EDT [facility] Name Value Range Interpretation Code Description Data Fabiola rce(s) Supporting Document(s) GLUCOSE,METER 65-100 Above high normal [facility] ID Date Data Source [id number] 10/29/2020 08:28:00 PM EDT [facility] Name Value Range Interpretation Code Description Data Fabiola rce(s) Supporting Document(s) GLUCOSE,METER 65-100 Above high normal [facility] ID Date Data Source [id number] 10/29/2020 04:24:00 PM EDT [facility] Name Value Range Interpretation Code Description Data Fabiola rce(s) Supporting Document(s) GLUCOSE,METER 65-100 Above high normal [facility] ID Date Data Source [id number] 10/29/2020 02:52:05 PM EDT [facility] PATIENT INFORMATIONPatient MRN Name Date of [id number] Jose L Lam 1970 50 y.o. Weight Gender PT Class 66.7 kg M Psych InptPT Location Admission Date/Time Visit ID Attending [id number] 10/28/20 1613 --- Christine Cobb MD([id number]) EPI ID CSN Admitting Provider [id number] Eric Michel DO([id number])Psychiatrist Note - Comprehensive Psychiatric Emergency ProgramDate: 10/28/20 at 5:07 PMConsultant requested By: Dr. Steele of Present IllnessPlease see clinical consulting psychiatrist note for comprehensive detailsThitre is a 50-year-old -[place]ian male with history of schizophrenia andsubstance use who was transferred from [facility] due to paranoiaand command auditory hallucinations. Patient [...] paranoid typeCocaine use disorderAssessmentThis is a 50-year-old -Brazilian male with history of schizophrenia andsubstance abuse who presents due to paranoia and command auditoryhallucinations. Patient continues to report paranoid delusions and commandauditory hallucinations telling him to harm himself and others. Patientrequires inpatient hospitalization for safety and stabilization.PlanPatient will be admitted to [facility] under 9.37 for safety and stabilization.Regional Manager: Eric Michel DO at 5:07 PM Name Value Range Interpretation Code Description Data Fabiola rce(s) Supporting Document(s) ID Date Data Source [id number] 10/29/2020 11:34:00 AM EDT [facility] Name Value Range Interpretation Code Description Data Fabiola rce(s) Supporting Document(s) GLUCOSE,METER 65-100 Above high normal Health system ID Date Data Source [id number] 10/29/2020 06:37:00 AM EDT [facility] Name Value Range Interpretation Code Description Data Fabiola rce(s) Supporting Document(s) GLUCOSE,METER 65-100 Above high normal Health system ID Date Data Source [id number] 10/29/2020 12:15:00 PM EDT [facility] Release to patient->ImmediateUnit Colle t Name Value Range Interpretation Code Description Data Fabiola rce(s) Supporting Document(s) eAVERAGE GLUCOSE 68-126 Above high normal [facility] HEMOGLOBIN A1C 4.2-5.6 Above high normal [facility] Herpes simplex virus Type I by Direct Fl uorescent Antibody Stain.No Varicella Zoster Virus by Direct Fluorescent Antibody Stain.Per ADA 2018 Guidelines, HbA1c values should be interpreted as follows: Normal: less than 5.7% Prediabetes: 5.7% - 6.4% Diabetes: greater than 6.4%Samples containing >7% HbF may yield lower than expected HbA1c results.Additional testing not affected by HbF can be requested if clinicallyindicated. Contact [phone] for more information. ID Date Data Source [id number] 10/30/2020 12:20:00 PM EDT [facility] Release to patient->ImmediateUnit [facility] t Name Value Range Interpretation Code Description Data Fabiola rce(s) Supporting Document(s) HEP C RNA PCR(QUANT) NOT DETECTED Abnormal (applies to non -numeric results) [facility] HEP C RNA PCR LOG CONVERSION 0.0 Abnormal (applies to non-numeric results) [facility] The HCV Viral Load assay is [...] Acid Test (NINO). ID Date Data Source [id number] 10/29/2020 02:01:00 PM EDT [facility] Release to patient->[facility] t Name Value Range Interpretation Code Description Data Fabiola rce(s) Supporting Document(s) T PALLIDUM AB NONREACTIVE Normal (applies to non-numeric r esults) [facility] T.pallidum Antibody Index: less than 0.9 [...] TPal Ab Index ID Date Data Source [id number] 10/29/2020 07:11:00 AM EDT [facility] Release to patient->ImmediateUnit Colle t Name Value Range Interpretation Code Description Data Fabiola rce(s) Supporting Document(s) GFR BLACK 56-130 Normal (applies to non-numeric resul ts) [facility] For both GFR and GFR BLACK, th e accuracy of the GFRcalculation is contingent on a stable level of serumcreatinine. The GFR calculation is normalized to 1.73 "meterssquared" body surface area. A GFR less than 60 may alterclinical management decisions. A GFR within the age-adjustedreference range does not exclude kidney disease. ID Date Data Source [id number] 10/29/2020 07:11:00 AM EDT [facility] Release to patient->ImmediateUnit [facility] t Name Value Range Interpretation Code Description Data Fabiola rce(s) Supporting Document(s) GFR 56-130 Normal (applies to non-numeric re sults) [facility] ID Date Data Source [id number] 10/29/2020 07:11:00 AM EDT [facility] Release to patient->ImmediateUnit [facility] t Name Value Range Interpretation Code Description Data Fabiola rce(s) Supporting Document(s) SODIUM 136-145 Normal (applies to non-numeric resul ts) [facility] POTASSIUM 3.5-5.2 Normal (applies to non-numeric resul ts) [facility] CHLORIDE 100-110 Normal (applies to non-numeric resul ts) [facility] CO2 22-31 Normal (applies to non-numeric results) [facility] ANION GAP 3-18 Normal (applies to non-numeric resul ts) [facility] BUN 7-21 Normal (applies to non-numeric results) [facility] CREATININE 0.8-1.3 Normal (applies to non-numeric resul ts) [facility] GLUCOSE 60-100 Normal (applies to non-numeric resul ts) [facility] CALCIUM 8.4-10.0 Normal (applies to non-numeric resul ts) [facility] TOTAL PROTEIN 6.4-8.2 Normal (applies to non-numeric re sults) [facility] ALBUMIN 3.5-5.0 Normal (applies to non-numeric resul ts) [facility] GLOBULIN 2.6-3.2 Above high normal [facility] A/G RATIO 1.1-1.8 Below low normal [facility] BILI, TOTAL 0.1-1.1 Normal (applies to non-numeric resu lts) [facility] AST 15-37 Normal (applies to non-numeric results) [facility] ALT 15-60 Normal (applies to non-numeric results) [facility] ALK PHOS 39-117 Normal (applies to non-numeric resul ts) [facility] ID Date Data Source [id number] 10/29/2020 07:11:00 AM EDT [facility] Release to patient->ImmediateUnit Colle t Name Value Range Interpretation Code Description Data Fabiola rce(s) Supporting Document(s) CHOLESTEROL 50-180 Normal (applies to non-numeric resu lts) [facility] TRIGLYCERIDES 30-150 Normal (applies to non-numeric re sults) [facility] HDL CHOLESTEROL 40-60 Normal (applies to non-numeric results) [facility] HDL levels are inversely related to the incidence of coronaryheart disease (CHD).HDL less than 40 mg/dL.........Increased risk for CHDHDL greater than 59 mg/dL.......Negative risk for CHD non-HDL-C 95-160 Below low normal [facility] CHOL/HDL RATIO [facility] CHD CHOL/HDL RATIORisk Group Men Women Lowest <3.8 <2.9Low 3.8-4.7 2.9-3.6Moderate 4.8- 5.9 3.7-4.6High >5.9 >4.6 LDL (calc) 30-100 Normal (applies to non-numeric resul ts) [facility] ID Date Data Source [id number] 10/29/2020 07:11:00 AM EDT [facility] Release to patient->ImmediateUnit Colle t Name Value Range Interpretation Code Description Data Fabiola rce(s) Supporting Document(s) FOLATE 5.9-23.3 Normal (applies to non-numeric resul ts) [facility] ID Date Data Source [id number] 10/29/2020 07:11:00 AM EDT [facility] Release to patient->ImmediateUnit Collec t Name Value Range Interpretation Code Description Data Fabiola rce(s) Supporting Document(s) VIT B12 211-911 Normal (applies to non-numeric resul ts) [facility] ID Date Data Source [id number] 10/29/2020 06:21:00 AM EDT [facility] Release to patient->ImmediateUnit Colle t Name Value Range Interpretation Code Description Data Fabiola rce(s) Supporting Document(s) WBC 4.7-10.6 Normal (applies to non-numeric resul ts) [facility] RBC 4.69-6.09 Below low normal [facility] HGB 13.8-17.9 Below low normal [facility] HCT 43-51 Below low normal [facility] MCV 80-97 Normal (applies to non-numeric results) [facility] MCH 26.6-30.7 Normal (applies to non-numeric resul ts) [facility] MCHC 31.8-34.9 Normal (applies to non-numeric resul ts) [facility] RDW 12.9-16.0 Normal (applies to non-numeric resul ts) [facility] PLATELET COUNT 142-414 Normal (applies to non-numeric r esults) [facility] MPV 8.9-12.3 Normal (applies to non-numeric resul ts) [facility] ID Date Data Source [id number] 10/29/2020 02:09:58 AM EDT [facility] PATIENT INFORMATIONPatient MRN Name Date of [id number] Jose L Lam 1970 50 y.o. Weight Gender PT Class 66.7 kg M Psych InptPT Location Admission Date/Time Visit ID Attending [id number] 10/28/20 1613 --- Eric Michel DO([id number]) EPI ID CSN Admitting Provider [id number] Eric Michel DO(532)Date: 10/29/2020Name: Jose L WalkergMRN: [id number]: 1970Admit Date: 10/28/2020ttending Provider: Eric Michel [facility] Care Physician: No primary care provider on [...] Social Gatherings with Friends and Family: Attends Synagogue Services: Active Member of Clubs or Organizations: [...] rce(s) Supporting Document(s) ID Date Data Source [id number] 10/28/2020 09:43:00 PM EDT [facility] Name Value Range Interpretation Code Description Data Fabiola rce(s) Supporting Document(s) GLUCOSE,METER 65-100 Above high normal [facility] ID Date Data Source [id number] 10/28/2020 05:57:00 PM EDT [facility] Name Value Range Interpretation Code Description Data Fabiola rce(s) Supporting Document(s) GLUCOSE,METER 65-100 Above high normal [facility] ID Date Data Source [id number] 10/28/2020 05:32:23 PM EDT [facility] PATIENT INFORMATIONPatient MRN Name Date of [id number] Jose L Lam 1970 50 y.o. Weight Gender PT Class 63.5 kg M CPEPPT Location Admission Date/Time Visit ID Attending [id number] 10/28/20 1613 --- Eric Michel DO([id number]) EPI ID [id number] Admitting Provider [id number] ---[facility] DEPTHistoryChief ComplaintPatient presents with Psychiatric EvaluationPatient is a 50-year-old male with a past medical history of schizophrenia andsubstance abuse who presented to [facility] with paranoia, callingthe police roughly 6 times [...] medical records.Records summary: Reviewed his records from [facility] COVID-19 wasnegative, the rest of his labs other than his tox screen being positive foramphetamines and cocaine was negativeED course details: Patient is afebrile, nontoxic-appearing and hemodynamicallystable. Patient presents as a transfer from [facility] where hewas seen for an acute psychosis, [...] rce(s) Supporting Document(s) ID Date Data Source [id number] 10/27/2020 11:29:00 PM EDT [facility] Name Value Range Interpretation Code Description Data Fabiola rce(s) Supporting Document(s) SARS coronavirus 2 RNA [Presence] in Res piratory specimen by WILEY with probe detection NEGATIVE [facility] This lab was ordered by [facility] a nd reported by [facility]. ID Date Data Source [id number] 10/01/2020 01:21:00 PM EDT [facility] Name Value Range Interpretation Code Description Data Fabiola rce(s) Supporting Document(s) SARS coronavirus 2 RNA [Presence] in Res piratory specimen by WILEY with probe detection NEGATIVE [facility] This lab was ordered by [facility] a nd reported by [facility]. ID Date Data Source [id number] 09/06/2020 01:55:30 PM EST [facility] Name Value Range Interpretation Code Description Data Fabiola rce(s) Supporting Document(s) Progress Notes [facility] NRURLm3eRdGRYoEh37/TTAvaVFJhp3NjOBowFVr9HWipXCSvH1UtYPT8lO3hSLV1YQbLDdHcYfVoBxWy lbm [file] [id number]= ID Date Data Source [id number] 09/06/2020 11:39:00 AM EST [facility] Name Value Range Interpretation Code Description Data Fabiola rce(s) Supporting Document(s) Glucose, Fingerstick 287 mg/dl 70-110 Above high normal [facility] The above 1 analytes were performed by [facility] [id number] [place] [address],[facility]#: [id number],[place] [address] ID Date Data Source [id number] 09/06/2020 11:33:24 AM EST [facility] Name Value Range Interpretation Code Description Data Fabiola rce(s) Supporting Document(s) Discharge Summary [facility] FBZSDi3lKpLGEsMo06/DFEkxKXNya1NzZHjuBCi3PWoyPZHaN1BiGQB5pP7yJUU1TOwXLkIfPaNwUbVq lbm [file] ICAgICAgICAgICAgICAgICAgICAgICAgICAgICAgIC JnSYUoIYGdLZUrZRSdGCPoYUDnEGFhQCDnQNCxYLYeYIAvCTKkDHBnGIIwQZRaONOnFRUwBHSiTF9PRV AgICAgICAgICAgICAgICAgICAgICAgICAgICAgICAgICAgICAgICAgICAgICAgICAgICAgICAgICAgIC AgICAgICAgICAgICAgICAgICAgICAgICAgICAgICAg TUKiBIWxIA2IMQBxNGJxASEgGHCfQABsXQEmYNVrSOUePNQqRTGvTXSgUQVgAOFqGTTpWEDlSIWuVOUm ZHUbVZVrQIZpNTZmCXMbJYFrUQQpGGBtFNAkLLDsLHFgTTJcXTKdKCXuNRDiINDbUZ9YWIHvLYNtISOr ICAgICAgICAgICAgICAgICAgICAgICAgICAgICAgIC AgICAgICAgICAgICAgICAgICAgICAgICAgICAgICAgICAgICAgICAgICAgICAgICAgICAgICAgICAgIA 0KICAgICAgICAgICAgICAgICAgICAgICAgICAgICAgICAgICAgICAgICAgICAgICAgICAgICAgICAgIC AgICAgICAgICAgICAgICAgICAgICAgICAgICAgICAg ALVjWSOlHOFdSK6QQXYyBWErYAPwHJNnSRTtSFLgWBLtJTEnEIGmAQWrUZZgDBRdYOTiLNAbNWTbKLRz LGUeKJFzSEWjDPPzSLLkQNKfLJOyWHJdFVLvAYMcBSZsVLUwLMScQCXiGMFzRDTvEBQeSC0XTVMhIWPz ICAgICAgICAgICAgICAgICAgICAgICAgICAgICAgIC AgICAgICAgICAgICAgICAgICAgICAgICAgICAgICAgICAgICAgICAgICAgICAgICAgICAgICAgICAgIC NmIN7JMDIqVCPbZDEfZLJiVYZlVXEbZYArRIIqSEIrXOCjWEBjXZSbPYHmHRTuZTPzTAZjLAKjNPYoRE AgICAgICAgICAgICAgICAgICAgICAgICAgICAgICAg DLDkKVTmUOObJNPdMU2GWHTeMFDgPRJaLPHnOJDnFGBeCDTmJKIeMOCxBOIuMMMdGDHbKMKoTABuKGRh XPRmPFCzLVQkQDMlEWTyWHEdBSEiQNIkJKYhAATiGYRbNCMhZOLnXNDgBVMvZFQzQSImQXCkUX8HQG39 yZMyh0W2UBKxNQ2metc/Rv5IDRwyfkCsfARnNH7EJm TwFS8fmm4KRrLkCO9fpj2RTNlTAxHhH0C1wUGlTHBoESFUErIiB79sUAvnAh19FDmcBDQzGxBuRPj1By 6TBiFeG6ygNWJbPfF9YYEbPiV6RHWtWeLxKPexXU9Hg2VreOUoDPz+Za4IAU6xa9KnIVeeLrWoJI7nvr 0MKTiQDjEgS6OgobW8UKPcOFJxUq0CALGcQUEhlEGq MdEpTMETRwHsN8XzrR82SHBIYj1+RMgomeUnSruLFpGeWZWiz1HnPFs8NJ5LIUOrGHa1fVFvIIdmC1un myjpCBJ5sL9fjiglLutjL4NutGIgQNjtl1Lkz9SudHByEOwcDIAxWMAoRt0xBU2pKEZcZOQzNpKoUUXA NS6WNILuFVSvkIDdZFTaULEFQN4RUCvtVXU5Lbzzpp DqhIArLOcsJM9CHGGmplAiKwMhEGILMSt+Yz6LEY0dw8YmHBfdDEZuEX0rpx5ENFjHCdEyK2G5gQQnS8 A2JLnhKa8HNFBuIXRyYtEeYTZOETnwWR1VKN6ptpB9CZ3FvWDrBESzXQFnpHIbKAb2E46yyXQbTZujED 0KICA+Anais+Xe4MGXKoDXCjSPPsKySfPYVCPvNxD3Uh R1YKy7LxG4NaHU59sDkpggPnTKdiGY9NFX5mAQPkXPAAQN7AvBTzeN6vvpVqOrMbJJULFcMqV27ryUOu JKWyFPPyJYBtHe1LIAQkL6XibqEldOsghhVdSBMiLCWBCI4GABoznzYjjPVniXhoTA00dAehXH7EVy3Z UrKtYT5vkd7TbPCiVg2HZUAyPQ1MULQbIFZjENBuCQ U3ZQFcIkRhICckBNCmRXXhPKU7KXZkYVQuOF6OZqCoPYHqPWAxBFejGOFaNNLxld8NBZIkHZPtGKn4Tm EoIZWvDOOqAPzfIJXwVHNtLWY7WFWhFVUqUR0WThNfERPgWCSmWFTgBGGvUSXaul3VCQGbTHJyPmF0DV XzNARsMFPdHUqkKEViSNR4IdU8AGGhLBJcUJ0ITmGu QTKbICU8JGJlIUNuWHRgyo8UURZmBPXiAZm7GSJpCIBvRCHwHCtwVGZwSKG6XVF2HQUoBVKgRQ8KQhMh GSVbBVJgUWGuVGKbFADkxi4BMNYoRYXxBtJfACDtSPWzXVAbQDgzAYBjYRW0GgCeJHWrTFQmSK2KYcWq EKEiAJp1NELiWQOsKEMkdu3HVPMhPFDmXSO8TRCnYY ByNOKyGPdlDOCpLFY1EsLgEDGpGTZrCB0JDpBeAVCaKCg1INLrGSTnLVTbul8TPWXxHTNyQCewXHSjSF KlXITsWDztDTMaWDFiHTAqUUEgBZBkIL7PJvUwKYAxKVEeCPXgIMTgFWOlqa3KCQMuWGAyMITiGnXxFB GaERUuLLtpFALjRLKdXQjsJGGqBLOxYM2DNmHvTJFi NGMoWWZcRXFyGJVjzh6CQKNsLROzKeEkGXPeQYTjDKIiEXi5dkRvpRZqNLz6CL2UH4YunxKyLwHCQj6B y476ZXO1QBYrIu6VY6wrIb6uDDEbLUQECw9YFYv6KELgZjm5HSg7T2CwKHQzIWM8YTTmQCc4YWX0UuEx ZGM+WDszFWSrPaa2Guq6Z8Y6CcZ4LpbeSiL8FBp3VX wtUtZfBw3gRAVIZu4+BOmuiKUvlIbvBWLPTtBxZPWmZAtrWWQCJi7U ID Date Data Source [id number] 09/06/2020 10:44:53 AM EST [facility] Name Value Range Interpretation Code Description Data Fabiola rce(s) Supporting Document(s) Nursing Note [facility] IECUVj9mZsQEBmBn01/XXJxdZEFps0LrAGpqGDu7NJivJHQhR8FzOFQ0eH8dVZD4SPzWLdJqWdNzLzHr lbm [file] M4Njc+SN5vZBu+Do2Uc3BcjxN6tgJaPKkmDZf5LL3YEFITW9UYOh== ID Date Data Source [id number] 09/06/2020 09:42:05 AM [facility] Patient: JOSE L LAM : 9 [facility]ACS [facility]: [facility] FOOT 1-2 VIEWS BILATERAL Provider: ROYAL [...] rce(s) Supporting Document(s) ID Date Data Source [id number] 09/06/2020 07:57:00 AM [facility] Name Value Range Interpretation Code Description Data Fabiola rce(s) Supporting Document(s) Glucose, Fingerstick 179 mg/dl 70-110 Above high normal [facility] The above 1 analytes were performed by [id number]#: [id number],[place] [address] ID Date Data Source [id number] 09/06/2020 05:45:55 AM EST [facility] Name Value Range Interpretation Code Description Data Fabiola rce(s) Supporting Document(s) Nursing Note [facility] MHOUFu3yTsOMVbRe19/GINzyERUiq3KnYTbaSOa0GVvaMQAeO8RtPCN0gJ7tLXU4XKuJZuFrXiGdQeJs lbm [file] [id number]= ID Date Data Source [id number] 09/06/2020 02:38:48 AM EST [facility] Name Value Range Interpretation Code Description Data Fabiola rce(s) Supporting Document(s) Progress Notes [facility] LHCKNi0uQqCZGoUp03/MIXwvNMZax9LtACbzYHi7SJwoYSHxX6ZwLEF5pX6iWBH9SJkNIyOnDpMtRtUa lbm ZvRctUXmAvMBOlRhyVTqWjRPclZuguvAGaAQ3FqCZ3VZLsL45kEHXuOEAqB3AgNKTcZFD+Ns3UDFXxmZ PpQY9ASjjC2DrSa3fOBR2E4Q+EMqFZ5i8VAU00D1yuXIpzeDs7yLbkAmKbzGLAxpr+aGlPYY8r46xv2j HXZF3oSNA0u29m4G7xphksZ2FsZ7gwwr/kk8iGwsln +aKb4iCHv1/Bs8IA7IDYYyMWA0YSVI/1nsLquL2RSxJermjjg2ke6eBPCKnUH0aNNhMfoZ1lFPdhMMQl sBiVVpjbiPdDISRKDlWnQNeg0FGoGP9PU+8p7rTD1uNN1ueUzH7JFGWsbbZlKmPXXvqoldBScNfMMb4N lArY44HcAY5e7R513I5jwSlQQL1vOLG+3R/RhwUsLk SHfQMGmNPk4AidxDGj9unaFIaTElwiWbHlY+aPskmv3P+KjMKV7ZUQc3KS34DGmJ8bo0sHDSWhbwv8mx tJKPJZhSIzTA2pEK6fvl9rl0vT3bJIz7JtgdNzGKOh3aPZST2sVLw6XYzoNZkltIyyMwiyJkJ1t2i4Vw O61rEnZOzHnyhBhG0f57Pjn4o9FJyTjOW2y5U4VUvl tPNear8N+ECXi1rz/X8JsXKxUAWOS7/4gzRQFFrbR/MdL4LPEg8YuXDlozc17tJciMOees1apAjMnZNF Ln44NW0mxzEI6ID/Lx5pbgp2siCT4oIxA5pmYn+nkU0slBAUYoI7Ez69YP/RxJeolYemgpV2wxlTcMSm zgTGf+debbie/Wwelg/5ffIpSDh8MVanwrdI0aE8l5Axb [file] [id number] ID Date Data Source [id number] 09/05/2020 08:22:27 PM EST [facility] Name Value Range Interpretation Code Description Data Fabiola rce(s) Supporting Document(s) Nursing Note [facility] XOLCRi1cGkXUVqGq02/IXNwsGJAcn5WgPTsnSCw1IVauCBOtP8KsRFG3cZ4zNEY7ZVlVNxMqGqDeLsGg lbm [file] 5RZiD4ZJH9uKZaKv7AWsZiJYXLNnYjBL0SPGf= ID Date Data Source [id number] 09/05/2020 07:47:00 PM EST [facility] Name Value Range Interpretation Code Description Data Fabiola rce(s) Supporting Document(s) Glucose, Fingerstick 225 mg/dl 70-110 Above high normal [facility] The above 1 analytes were performed by [facility] [id number] [place] [address],[facility]#: [id number],[place] [address] ID Date Data Source [id number] 09/05/2020 05:04:11 PM EST [facility] Name Value Range Interpretation Code Description Data Fabiola rce(s) Supporting Document(s) Care Plan [facility] [id number]/VCNvzNPMrm6TxMJisXAd3CBwoWOFpT9KdYYO1gE7mAXC6UFrGPoZmPuRuCoHv lbm [file] 1aMJABIb9+ZNdowAMgaSslYGEMObK5LeLnUEywKNLNOd2U ID Date Data Source [id number] 09/05/2020 04:56:00 PM EST [facility] Name Value Range Interpretation Code Description Data Fabiola rce(s) Supporting Document(s) Glucose, Fingerstick 158 mg/dl 70-110 Above high normal [facility] The above 1 analytes were performed by [facility] [id number] [place] [address],[facility]#: [id number],[place] [address] ID Date Data Source [id number] 09/05/2020 03:08:32 PM EST [facility] Name Value Range Interpretation Code Description Data Fabiola rce(s) Supporting Document(s) Progress Notes [facility] QBXBKy8eFzFULsXl37/GTReyUKMrg0JzUVtiUEw6UAbyILFlY8PsYZW6kZ8aUKJ3PFaTUxWjQyPxRuWt lbm [file] LEWeLHOgDXKhXB4hFXGEKq4+SVskkZVwcQjlGIQGSyH1GOynFWvqPMOCYs1U ID Date Data Source [id number] 09/05/2020 11:32:00 AM EST [facility] Name Value Range Interpretation Code Description Data Fabiola rce(s) Supporting Document(s) Glucose, Fingerstick 419 mg/dl 70-110 Above high normal [facility] The above 1 analytes were performed by [facility] [id number] [facility]#: [id number],[place] [address] ID Date Data Source [id number] 09/05/2020 10:57:11 AM EST [facility] Name Value Range Interpretation Code Description Data Fabiola rce(s) Supporting Document(s) Progress Notes [facility] MLMCOg5wEqPNGnXk88/OIBsiKCMjt7VnKDmlFMz2JRzkGMLtD2QcAZF9vQ9jVLZ0XSuAAiBuEqFhLoAy lbm [file] Kh5Ha1AebsB8hdHxFDo8JOErHReaABVVZg4C ID Date Data Source [id number] 09/05/2020 07:48:00 AM EST [facility] Name Value Range Interpretation Code Description Data Fabiola rce(s) Supporting Document(s) Glucose, Fingerstick 187 mg/dl 70-110 Above high normal [facility] The above 1 analytes were performed by [facility] [id number] [place] [address],[facility]#: [id number],[place] [address] ID Date Data Source [id number] 09/05/2020 05:28:33 AM EST [facility] Name Value Range Interpretation Code Description Data Fabiola rce(s) Supporting Document(s) Nursing Note [facility] VLEKGj4vFmGBUyCy18/HFGgqUTXlb5TuMKmuVQk7FQwuDZYwY3JfSOB0zO5lDVK5BCdUHiOnGeTfKlGi lbm [file] DDV3WZCj== ID Date Data Source [id number] 09/05/2020 02:00:21 AM EST [facility] Name Value Range Interpretation Code Description Data Fabiola rce(s) Supporting Document(s) Nursing Note [facility] BKWPSq7vVaWQViUt24/TXTkeULEqj1HlYGlpROb7KImkQSYaI8UzBQY3bV8cDJK4WNsYXvKeFeXbVtKh lbm [file] ID Date Data Source [id number] 09/05/2020 01:57:41 AM EST [facility] Name Value Range Interpretation Code Description Data Fabiola rce(s) Supporting Document(s) Care Plan [facility] ITHWFi3fKrDOCuCi01/DEGjwVBQzp3QqPNaoRKl1WMcwONOpW9WsCEY1jR8dZBM3MCtWHmYhWoNrPcFb lbm [file] ICAgICAgICAgICAgICAgICAgICAgICAgICAgICAgICAgICAgICAgICAgICAgICAgICAgICAgICAgICAg SQLaTYTuGHBvDDWzEZWwBWWyIDAoNPWcJVScLG9PUVHsMDUlLRIfADKiNDHyEXUeAIQmWBQuCWIjKBWx ICAgICAgICAgICAgICAgICAgICAgICAgICAgICAgIC ZoGZJiMDDeQBIbEORgENNxVAXnBWZaOXCmKHPnICApEKFgQXOoPA0NDPGvFRAaZMGsRWDwBONlRPRaKY AgICAgICAgICAgICAgICAgICAgICAgICAgICAgICAgICAgICAgICAgICAgICAgICAgICAgICAgICAgIC BsNWPoYFLhFIKiDLCqWTQsQSDsOK6WQCDgVABsEGCu ICAgICAgICAgICAgICAgICAgICAgICAgICAgICAgICAgICAgICAgICAgICAgICAgICAgICAgICAgICAg FDJgTMYdXBKsLSHcGNKvNYGnYCFoPZGsZCXpXKGqQD3OXQNzAEPnFPIqEJAtMMYcHJXmSLHiXEWbKJCe ICAgICAgICAgICAgICAgICAgICAgICAgICAgICAgIC WrFGBfYDRxBGEvJIFwTUJqZIYgWFIzTTYuHYLlRMVaHUPgRBFiBIAiBB3PYTHcYATkHSPbXVBrJMXhCQ AgICAgICAgICAgICAgICAgICAgICAgICAgICAgICAgICAgICAgICAgICAgICAgICAgICAgICAgICAgIC KcURMhROVlCFYoJJWtPTHjDKAwACDvRJ3RKTLtEBYd ICAgICAgICAgICAgICAgICAgICAgICAgICAgICAgICAgICAgICAgICAgICAgICAgICAgICAgICAgICAg ZLOfXNNvPEKxHPYuMRPoCUFpXPBvWPNmDWPhSHMiLIEyHP4PLYWsDLLtKKPqDPZhRFWlFZFxVKMxVZIe ICAgICAgICAgICAgICAgICAgICAgICAgICAgICAgIC OpVTSkVQJnHYLkVIRpGUXiEUYbEWJgWVOcFUCtIUYjFEJiAIZrONEbVIPyHC5SGZQkLHHmNYZtATOrAA AgICAgICAgICAgICAgICAgICAgICAgICAgICAgICAgICAgICAgICAgICAgICAgICAgICAgICAgICAgIC HfXREjDSEkCKBkXXSsTZOjVVRfOHCyWHZjPY6BXWXb ICAgICAgICAgICAgICAgICAgICAgICAgICAgICAgICAgICAgICAgICAgICAgICAgICAgICAgICAgICAg FAKuQZImOQGzMWPzCQOdURUnBZHcNEPnMLLzVWYaSCWiOFJkNZ6BEM59zSHip7K8JKDnJR2jdkc/Pg0K UDgzftJqfROvWN9ALaCaTI8tdt4DOrSsOL4vus4PFQ eADxNjX8R7nUDyCTYdMGJBDyYaJ34xNKipHa96FUlyBTShVcGkBMw4Xu9ONeAjR0jtVULiBrI8OXSaEu YuJEnxDZ6Tg5BjgWLmPMw+Dc4UDR5xq2CfZTikEuPaYG9qte6IMRyIKoBdQ4HfllH5SYZzDHTlIb4QTK DuLMYalDLrXkFzVLIWOgBnQ2XsaH76ZOCBYm9+DQpl mpUlFviPRjPvOWKla3OjKFw5XV6WRTHiFYs5pGEuC8SmLVMHsPUhATE3QLRlvGxyDIBcV0QuYNxcMh3u MTWpSn9tFH4fFRYsSPHgEtZ8IQOTTL1OZEJnZLEhhFOvLOPsOGQQCU6FJPuiCQH2GxwyfuVrzJWwCJlg BP5ZTVZdozIuMaCrGDWNGNo+Gx8OYM3jd7HpVQcyMA FoYV8uir0RHBvOBrCpK2S2cWViI4O1XXnzXk3BIVIiONOrTvFxZXQRAOysGI2SMS5fnyQ7PG8FfHNbXZ HsJSXpqUGnNQq1A86pxVSbMAvzEK6JWTO+Anais+Dh7LQZZdDVTsNRJvTnTrKLBUKsRiG8VbJ9FRv4YoS3 UwDF53nYylryFcPYxeNP5NRQ6fARMuHRMHAE8KqKXn gK1yypBwQoSyASPKGsHnH30nwBChJXCbIYHrBRVqLw4LIGWnZ7RixqEwtZcodjUbZMVlJKQZGM8WONjl yoIkuTDpuBrdEY65jZxnXH0SGt3SCkEtYK4inh8MeKSgTw8SHVQvOX1ERIYwFQQiDSKpWLN2KFTsYhWt SGtuJWYoPDWxVYI3TVGoMPMjQJ1JGvWcHXVoEEh3ZR ZqTTUeKTKvhv6SXUZzDALzSAQxNUCzVVBrPZWjMUznMNOlFFEtNIZ8STGmFYUwHN6IAnLhTOQrFMZ4Az qyGBIeXFWina9ARJInILZkNTV7MNZiRACgVXZxDUbgJDEvILVxGOo6JTUaIDQmVM1TGnNlUTPmTEUbCC AqVKGhGLYysk0BNRVfKXZkWmY4LOAoFNQoYIDxARuq PZJwPPGrFKK3CYUyMYMcBD3FAbVcZBHiZGX1YEEmFTAqQTTvur6NZVVkGFNiFfviPmMfXXAfNRMnVZfb QCZaFKV6RPrvMZBjDJAbYJ5BCnJaOIWpEFA7RUnrDUKxQZFgau5WVBRnKOHmXsN2BvNoPXUqYGTrOEei RLItFJC4VMD1TABaHUDeIJ3MIaCbFSJbHZcwCYOyBM IbRSFdpj5KIRKrGWHlJFXuEZVgNAZeZWEbCAlpKQEvVPL6FfKuXSCgWAGqZM4HDlHzTDAhTBjuKDUaPY PcFYCtpa1AIRYiBPOmKRt4GPAdNSWsIPPbFIwnJYAwWMIvFrF3MUOnPRKrSH6AApXfKUCzFtJgJWqhYC AgAFNszo1RJAHvGMXvUXQ3NYBeIAUiFUEwZUi5lgNj pAZrCZq6IZ6AD9CwbsNcAbORWy8Vz674ACA2IBEzPo3MV1soTc1cKOKpXXUABs4PEPv1QNTrOxB6VJEp Z7TcICEoIWPdLTH2BHk5NFHkGiX2LAA+UXb2GqWgBWk0YRN9DbLqOGLrNQL3BBfxZIg4MIZpPWRvUS4g XSANCj4+TMcviUAmnMawLLTGLeIuDgm3TBreUEQLRg4N ID Date Data Source [id number] 09/04/2020 07:54:00 PM EST [facility] Name Value Range Interpretation Code Description Data Fabiola rce(s) Supporting Document(s) Glucose, Fingerstick 277 mg/dl 70-110 Above high normal [facility] The above 1 analytes were performed by [facility] [address],[facility]#: [id number],[place] [address] ID Date Data Source [id number] 09/04/2020 06:17:48 PM EST [facility] Name Value Range Interpretation Code Description Data Fabiola rce(s) Supporting Document(s) Nursing Note [facility] OMNNNn1bVwVBOwUd56/CXItdZMHzo3DfJXaiNAs3NFldAPHtA4PzZKP8kF1iZCY5IXoQLdVlApAxHeP7 [facility] [file] ICAgICAgICAgICAgICAgICAgICAgICAgICAgICAgICAgICAgICAgICAgICAgICAgICAgICAgDQogICAg ICAgICAgICAgICAgICAgICAgICAgICAgICAgICAgIC AgICAgICAgICAgICAgICAgICAgICAgICAgICAgICAgICAgICAgICAgICAgICAgICAgICAgICAgICAgIC AgICAgDQogICAgICAgICAgICAgICAgICAgICAgICAgICAgICAgICAgICAgICAgICAgICAgICAgICAgIC AgICAgICAgICAgICAgICAgICAgICAgICAgICAgICAg ICAgICAgICAgICAgICAgDQogICAgICAgICAgICAgICAgICAgICAgICAgICAgICAgICAgICAgICAgICAg ICAgICAgICAgICAgICAgICAgICAgICAgICAgICAgICAgICAgICAgICAgICAgICAgICAgICAgICAgDQog ICAgICAgICAgICAgICAgICAgICAgICAgICAgICAgIC AgICAgICAgICAgICAgICAgICAgICAgICAgICAgICAgICAgICAgICAgICAgICAgICAgICAgICAgICAgIC AgICAgICAgDQogICAgICAgICAgICAgICAgICAgICAgICAgICAgICAgICAgICAgICAgICAgICAgICAgIC AgICAgICAgICAgICAgICAgICAgICAgICAgICAgICAg ICAgICAgICAgICAgICAgICAgDQogICAgICAgICAgICAgICAgICAgICAgICAgICAgICAgICAgICAgICAg ICAgICAgICAgICAgICAgICAgICAgICAgICAgICAgICAgICAgICAgICAgICAgICAgICAgICAgICAgICAg DQogICAgICAgICAgICAgICAgICAgICAgICAgICAgIC AgICAgICAgICAgICAgICAgICAgICAgICAgICAgICAgICAgICAgICAgICAgICAgICAgICAgICAgICAgIC AgICAgICAgICAgDQogICAgICAgICAgICAgICAgICAgICAgICAgICAgICAgICAgICAgICAgICAgICAgIC AgICAgICAgICAgICAgICAgICAgICAgICAgICAgICAg ICAgICAgICAgICAgICAgICAgICAgDQogICAgICAgICAgICAgICAgICAgICAgICAgICAgICAgICAgICAg ICAgICAgICAgICAgICAgICAgICAgICAgICAgICAgICAgICAgICAgICAgICAgICAgICAgICAgICAgICAg HKMcMYf7O8eySVLaYSXoFL0hANd8Jp3+DQoNCmVuZH J4vsIeuX1DXL0yk7JyCNvtLJPti3GzZWt3UP3BMCErZFivYL1PVOvhmi4AEETxFYOmsKXVu0aeJrQvSU M9KCHjAvqiSV1XBKEjS2zucmOiGNAkNKLMOX9JGtEcT9JluK60IYAIYn8+DQplbmRvYmoNCjIyIDAgb2 FjUGj0JS5GESXfZdxrx8SoIfJzUSTDPBglOU5HXHW2 URZgWOEmTf1HNSTlB097lkAiGZ7HEc9YYuEzUM1erk9HKiXgYUGpNnnJSxy4QHnzBH0TsLJhOLiDxKOn aD8nRQ7hyWVmGmwyHz5maUYnGY7zy4vjTFAZJRR9RKCsRR6lOICyWAF0DhH4FAMEYF8FYQTiWQJcsNVy ZFKgZVFGVB6CLZrnXIG2UkevetBpeYEfCZgjCH5HKD JlbnQgMjIgMCBSDQo+Yi7LIG2do4ZuFOhkPHOeUX1uxi8FHOzAKbPgE9L6jZIwS0A4QGzkBt8LBSWpYS TwXxAjSFDLATkbQR7III6zgrR1MZ1GaMEoTRIfSFTlwXAcJFa9Y78lvBXhRDpcJN9QOHE+Anais+Pg0KIC YlKVRmRLTzGmIqMZUZWoXlR0OhE2ANf7UdM8ZcRF25 gMahrhCpTFkeYD1SFT2iBVZpYEJEMF0TvYQlxL8jvyNeEmCeVHPQVoRdL19suMCoKSUpADQrPSHgSv5B XSMeG1HyilQspKvtkeDlUMLxVUNQGK7PJMlemnAwtZDgcSypYP67cVlaCM2TOt0JPzTiGA9dop3JjGFk Cv6UOJSoRY9BIMZqVXCvKUVlANS4QWZdBiZhURurLH QaADCrCTQ6VIQvGFErOC1MXbLoMZXwAKq2RnUbYHTlNCProk6NFCPhZMIdBSN8WNHnCGDbBBOpMCrrJL YyVHHmINR7KNBfTVDbXL8MOiKhLUGoVRL6RlRcBHFmROMiru0SNGUyQXDyUVK4YmYjOPMqJBOpNIuoKA BiSXGnWLR3IBZzBAZyHL6KLyPcNUWiOBChNjIaILOp UBDphz1JLMOhELBgFaReKVTkHCCuEJUlZCzyKWWtRESmEEvfRVZrDSYiUS5IMwAkLMEnUQY2PxdfNIQd UATtmw5LVVDuZNTxYht1MSOaUJBnQSJvDQbuSKLqLHO0VUh2FXFqJSHcDO0RFmLyRNObPPX0UBIqVPDx CMEcez3FHVMzGXIbFhcrKlYpVXWoSBHjAAuxLCXqML V1HBPuMETdFGYfUP3WVvKcOXTwAGulKTqqOMWrJVLjtr1AORVcKOHbPAO6WIGcSKXpKYExKDdgCCDmZN E3CtL0WLMoEXKyQV2FGbPjOTShGLh2ASsdEYWpEVJwfn3WWYSbGYYaBSifQVSaJXRcHPVwFBmvMNWuUJ QsNqNbUSFjWXUeAG9ZVwDyAXLvPyWwJiCjESLrBIUl ng1WDTJtKUFrRKY5UdGxMKEiCNQyCKf9irCcvDWzASm7JI1AW6QxhtEuFxJUUz5Rg845IVO7EYJbSn6S V6blPr6qIJLfRVEEBm6HFPs9UqsgCqD2HyV2WLVbYzSwYTVuCeXgKnFkHFY1PSW1BLO+IDxjOWMyZTcy SnR0ZTDmKlB9UPR1QNXdWsF4BcouJqa6MV2tRZOSTl1+CGerfNAxuOfjCPBQOgJiMkFxEGwgWCFBOk9B ID Date Data Source [id number] 09/04/2020 04:52:00 PM EST [facility] Name Value Range Interpretation Code Description Data Fabiola rce(s) Supporting Document(s) Glucose, Fingerstick 133 mg/dl 70-110 Above high normal [facility] The above 1 analytes were performed by [facility] [id number] [facility]#: [id number],[place] [address] ID Date Data Source [id number] 09/04/2020 03:10:10 PM EST [facility] Name Value Range Interpretation Code Description Data Fabiola rce(s) Supporting Document(s) Care Plan [facility] QGCBFk9hGbWGJvHx74/EBWaeSAVss3EkLQifCLl1XWaeZLIhM4KzYMI6xE9zEYI8FNpFVnDaFmVdCrU8 lbm [file] E+DQogICAgICAgICAgICAgICAgICAgICAgICAgICAgICAgICAgICAgICAgICAgICAgICAgICAgICAgIC AgICAgICAgICAgICAgICAgICAgICAgICAgICAgICAgICAgICAgICAgICAgDQogICAgICAgICAgICAgIC AgICAgICAgICAgICAgICAgICAgICAgICAgICAgICAg ICAgICAgICAgICAgICAgICAgICAgICAgICAgICAgICAgICAgICAgICAgICAgICAgICAgICAgDQogICAg ICAgICAgICAgICAgICAgICAgICAgICAgICAgICAgICAgICAgICAgICAgICAgICAgICAgICAgICAgICAg ICAgICAgICAgICAgICAgICAgICAgICAgICAgICAgIC AgICAgDQogICAgICAgICAgICAgICAgICAgICAgICAgICAgICAgICAgICAgICAgICAgICAgICAgICAgIC AgICAgICAgICAgICAgICAgICAgICAgICAgICAgICAgICAgICAgICAgICAgICAgDQogICAgICAgICAgIC AgICAgICAgICAgICAgICAgICAgICAgICAgICAgICAg ICAgICAgICAgICAgICAgICAgICAgICAgICAgICAgICAgICAgICAgICAgICAgICAgICAgICAgICAgDQog ICAgICAgICAgICAgICAgICAgICAgICAgICAgICAgICAgICAgICAgICAgICAgICAgICAgICAgICAgICAg ICAgICAgICAgICAgICAgICAgICAgICAgICAgICAgIC AgICAgICAgDQogICAgICAgICAgICAgICAgICAgICAgICAgICAgICAgICAgICAgICAgICAgICAgICAgIC AgICAgICAgICAgICAgICAgICAgICAgICAgICAgICAgICAgICAgICAgICAgICAgICAgDQogICAgICAgIC AgICAgICAgICAgICAgICAgICAgICAgICAgICAgICAg ICAgICAgICAgICAgICAgICAgICAgICAgICAgICAgICAgICAgICAgICAgICAgICAgICAgICAgICAgICAg DQogICAgICAgICAgICAgICAgICAgICAgICAgICAgICAgICAgICAgICAgICAgICAgICAgICAgICAgICAg ICAgICAgICAgICAgICAgICAgICAgICAgICAgICAgIC AgICAgICAgICAgDQogICAgICAgICAgICAgICAgICAgICAgICAgICAgICAgICAgICAgICAgICAgICAgIC MjDDNeGAHzHSGyKODxGQDcLEPjWZMsBHRjIOEkTSNwTEWyIVVrXVYjEGLuYEBfQJVsPWIyXCj2Q3fqKU VbIDObPY3xIWj2Vs1+ZGkNWgRdIBA4ubXpdA4OAG5n f3MsDJvuCUPzj4IuUPr7AJ8TJIXbXAnvCC5VEWpgiw2IURUkRUQihDKTx2rrOnGfXJF7JSUtGorqZW2N TFKyA4jwqqAlVOTiJWHVJY2JZsCvO7EguA28JYBJMd3+PDgzrrEcXvnGZlNwXTIhz4EhCQm1MX1AQFWa Xcxju5JdMjVlUCTCMGgsFQ3TYWC7GSObDJQtAy8XLY JgL538yyIjNE5MVo9TMwKtVN6hsz1ETqSgWEGlJzzECwg1LVbaSP0XcHHbXVeUEUDuPTHsWS5yQgkzRq 7vnSDvXG8mc0wjFWICPNS1GNHoLG1sVXBoEBGaLoA0EIECWT3IANBiTKKdtJSzQPPsWZADFL7IQAmkSB J5GqsqoxNxdVXuZDwgXT0GZBWagfQcYqNiWXUOFVw+ Pi0KCD4wh4QwLEnxXNYaQI1kcq0QTMjGYgExY7H0hZIuJ8S8YFerAr0CVHSsUAArHyVmNGXSTEktEC0J CF2hldR7QG5NnDLtQJDhCVCffRRbEWo6U60iySQfUHdzID0EFKZ+Anais+Su2CKDZfLHDvLBYzKpBlEUBD FtQkU8ZkS8HNk6FrH2XyHN45dJkduuDpMHciJR8JCC 1qBQRuTIVTZI7McXJehW9qabGoTvTcDSGVYkYkL40riUIzPZIxCMVpUIQgRm9EXNTzL2TnaqJubRnmaj PfQSEcERZRKP3FUCeaguMnkYVuxHgyDP90sArzFO5BBk5DMjFyPP8wve7HwXFzVk4OBHMkJZ2AIWAmBQ SrSYLhCDU4UPLmLeEsJPmqSVOeBCOfGVL3KWAxZMMv FO8APiMaCLNoWVmgVzxyOLNmSGXbmn3VPFWcXKFhVXgiMxQsMOEhHLOgWLtkEMOmTPJnPES4RIAiUTVk ZQ6AZkKvBXRrIGF1HOEoVXBgFDXvpy3EGMBuXGWvOKrrWXSvKNWrQNYsYKsrHBFoSAFzRTdeYXGjWRWy TV1TCrNzGTJlIAVcLuEwLGVrMYHgiw1PZIXsKEZhIv Q3MYIyVHVeIGXaSAoxWSTzWLA4JfL3ESQxIXQvQQ1TObCgSACuFMI3DOIcDVHzSWXrnb6XZIGsRXFiQR R1FtPtHAFnAZVbDDemOPEcKGV1PCQ0WWKsYHChRY1OVkOiPREqOChtHkYtPWEvRVEfcy5EGVAzKTWyFr E7HSTrBRCdDMXjCCbsTPOwWVN5QfAoJLGdJFWpRG6T TlHaAIHaPOf7OILzGZKvHSFcue8ATNIhHFXoDXn1VMYhUPVdTNWzSIyvMAHiLZG3CUwxQYYdGOSiMG2E YkHcPKNbNHwkQAWeMMZnUKQmed4EIKGbORDsMGE5XiXcBRFxKBExAHjkYZGrMNRsDVNtLDUfQCFyJR0V CqTzINUxVnNwFQGzGRHeFHCooz6ZVFGkGRRvTPQsRG LtFCYfPKHjWVu1epCpaTSaIHo8WL7DL8KpuzSpQnKFZg2Wd017GLH6XUDvIv6OH3exTe3cMVIfPXRWMb 5CWFb8PZRrPSGfDPX3Y3E2VDVcNzdtCKM4DGMfMvNxRgW8MIF+XIx4YZN3TEW2XIf3BozcGGVdSODfQi L7QtBeYEMaDLk1Op6nYVZKUg8+REiirTBvcTaeAREBDuSnSRB6VHvrQSQWVe8O ID Date Data Source [id number] 09/04/2020 01:19:12 PM EST [facility] Name Value Range Interpretation Code Description Data Fabiola rce(s) Supporting Document(s) Progress Notes [facility] NZYJEj4mLwSCEgIi67/ZGIfaKHRza4AoIGqdVMu3DMpyZIJfQ5BiCXH1pS9hHYW4PExARfYzJmTvAlB8 lbm PjMiyTYjJwYABsZnxRQrTzMSrvBoikvYJuNQ1XfRE1ZZVeL51pTUMnXMFrK2WmLCO2NGN+Nr2WTEMjzU VlYD8TYhjS7Zvlb0f07DtO/bppgLAPvbp6gWncpnNMr4iwVXqMfhm80RLDvxag2z5JG7fIwW4Sx2VVjS pdvkRx9gH0c6OJE/FA4Dd2PlnXXXvS6+9ncqBSSilx /9d/KsPJ+Zz8/tkqtzm5vob7O7bWVdSDR0V5XJ0A6K6DR1YgxsUCcQq2MObJxZoaJuVnGi61XRXsbAaX +KYhYB6b8IGCEu2J7D8pBc5blLK9Gr1q9FJXC5boNAj01dQ2Gr+kAHVuKsqFHqy9Pi4xAt8m7WVPzG3H WUHHlYGUCKZCvrP8mEoOPNCbCLISLHPPdYtRGhwwTF [file] TfCKG4nHIpDckRZGxfXg7rU9OOkxwubGzmD4Ze1/[facility] [file] AgICAgICAgICAgICAgICAgICAgICAgICAgICAgICAgICAgICAgICAgICAgICAgICAgICAgICAgICAgIC DnSZImZIMzLOOgNV0ZQTIuJYWdTVHwFPCsRCIxCQYuMJGuMVXxLRGkIHDmCKLcUJQrCEYwPILuVJHgHF AgICAgICAgICAgICAgICAgICAgICAgICAgICAgICAg BQIkYNPlKDOgAIBpQJVwINQsMAKhVX5FYDAeOBXbTHLhDJYtQUVhJAWjBTUlQOBjOQErCJWsVVEaQKSr ICAgICAgICAgICAgICAgICAgICAgICAgICAgICAgICAgICAgICAgICAgICAgICAgICAgICAgICAgICAg NXOqBR7CYTPiSYHvFMMbQRTaSUFyMLSmLXJcCWOgHJ AgICAgICAgICAgICAgICAgICAgICAgICAgICAgICAgICAgICAgICAgICAgICAgICAgICAgICAgICAgIC BuSLZoDAOdKWQwMKWrQT5SNDGcMJXnFKLdLAUnYFHpDLDrTUYuMAStCLXlSYUcNYRpCCZsRDGvKZIeGC AgICAgICAgICAgICAgICAgICAgICAgICAgICAgICAg RMPxYVTtAJNcYNGzEJJbKCTkVOMtTWVxGG9OPRQtHJQwDPNbZAOeGZEmPMRxZJEjBZZnSHHsAJGzRCDt ICAgICAgICAgICAgICAgICAgICAgICAgICAgICAgICAgICAgICAgICAgICAgICAgICAgICAgICAgICAg ZGYbCYReGX8QIAPfXWInGYZwBGMvKHNkKYOsJQJsSJ AgICAgICAgICAgICAgICAgICAgICAgICAgICAgICAgICAgICAgICAgICAgICAgICAgICAgICAgICAgIC PyIYDzEGEkPEToGNJyZNUaQN9GTPAuQSKpILMtYSHmAGTpHREzCNFwJHIrCAHzFDVvEOZvAFWlMDGgKZ AgICAgICAgICAgICAgICAgICAgICAgICAgICAgICAg PWBgAVWmDVTuAYAdNOKcLILbADQjRWGyAAGcDT3WFDGjJEVgDZAlBDNmHNEuIZJfHSNiBFBxKXRqATHe ICAgICAgICAgICAgICAgICAgICAgICAgICAgICAgICAgICAgICAgICAgICAgICAgICAgICAgICAgICAg IKAyMWLwUDKlTI0WRIZbIBGlDSWeDOFnHTUlAWLwSK AgICAgICAgICAgICAgICAgICAgICAgICAgICAgICAgICAgICAgICAgICAgICAgICAgICAgICAgICAgIC BoXUCsAHTnIFJkMJKkYTTgUEQlBN9RCW00cMUsp6N5PPDnTZ8fdrn/Mb9EISskapCpuNJuTK4PRzBsXX 9mfc7JLuXoBU2gxk9QXApXGxWwF9E5oTSwTNGzOTCC DcSiS88yPQnpKu31VOhlXQSdKxWoEXn0Rr3BSgXmK6rhHSFoOgF2QVLwOxX7NARdVhS0SWKxWjOoSSYq WJQnBT1LPDVqE410ruRrBH8SWw2ZItImZH2uld1YECdoGXUrMfzJFds6KZcaWQ3PjLVsiUO0ETQnPVNR NvIoG2sae0HeLHbvEEPWIDghAH4Vx2RkpXRuWHb+Pg 8CLE0ad5ByBUb1NECxUJ1rkg7WWXvCOuEuW9BdwGiiEKWla6hzEBKdQP7ofLXlKMN2PLlrWPObPVSaB9 2llZezknhxStMnLPWxPc81GfRdIjOtCBF9JWycZF5cWBfvFR6HJXH6ZOahKJHpECQzR2yGJbJiARxrBA DwvXvhWM7QXbOlF1NblqJhdNQ4KiLvIDVBMo8+DQpl gbYeJtpBOhG3EQBhj7RfRXj5LK8CJUWcBZcxND4AMJDrgW4eQUbsZE5ARfL1BKHzEOPURwAiP95lhGEx YOq1Q5IeEmGiERWtLhdfCLByAJwhBcHxVMRhHdAfWLceMN5+ID4+OHivYT6LBZksqbNdODFzAs0OHZQn VEUmJO4kTVPlDJVqQ6G7fFoxHMXHZkNjM1hubukiBS 8aWMFzD033vTxdbjCtXFK9SXCtHj7XPWGfFFT1FJIkbCUaVNOfMWUFHPngQN6ZpEMkHDP9xX3yFWjnYU RqVQPfN9eCYcOeyIcfCT99nUeidsWffTSdJAo+Is0GRU1yo4BpHFg9dkZfNEmuMWUqZJutYGKdBWUyYW TlRDJ6LMH4NLCOEaDgOPIsTSKsNFzzHSIdSUZhag6F TBRuUOT1HUe5SRBfOANkTBLlMUzpOHWjVMZdVwd0AIVkYWTvIP5SWoYfKNRuYWIjUMdeRHHmVHPbaq5X TZMaNWSdRzU9SwZeLABaPHPcKYtnJGXpJAVpHgU1XAYuLZQaLH1ENbQbROZtHMJrSVGlLDBxTKGfom1G FGVtSEGaPKU3RsNdMTXxPVNsPYgoWMQdTUW8BEWbJQ UkJPAiQR8JFzOnXDNvHEqzHhgaGUZgLHMpdo7SGSRqNYIhIJQ1KWMyTMHaFAOvBLfcHLDyEYC3VmM4IT IlJCQnYQ3YEfWqHBCmIQB3EfWoITUyIIZamj1MJGMvUGWdYLmrZKIdFGTzAMTgDWbhGKUcUVEbTUS2MR QdLPXlAZ4OBzYcVXVbJTU8PfWjYPYdCGKbvk1PXXGw IRFkPpE6LpAcEOMeCXUpRVqxVPJgDLVxJuR2SWFpLCPhAX3XBxHrTKMvDxO0PJWyFABqFIVaua2LFYPm HVJlYAKjRIAoFKKdNQBbVCznSRVlKUG3PkSnEXQmXXAdCS4TNnFgIQOoErY8FvOfANYdRDOdic4KJTXw IJCnBFRsPzGlVCCxNHDtGZipHDAyDAP5YFF6QZGpIO PtCA1KYgNsMOIgAmF8RDEwETCgBTJdxy5WCNOmYIIqTxjbOZHfMPXtIPHkRFyqHBXzIPE5EOlmMWSpCX DiYM6PYeKqUIQlOodkXAYvVUCxSXKuoh8XZNEcGUZdIBDzDJDmASCyDTAsZLdxHFKrOKF5NMiwOBPlLY ExUD1KYbEzWSIzUgtlEBNmNMAkNAShxw7XMXZhPPKg CUQkVNWnYMBpIARxEMcyDSVzAVWpIWO6UXJpBSGkQO0ERuQzFQAaJHZaGdoaJUSqKTBele3CIBIwGER7 EsR0EgXpAZUuOKLdTBliTRPsRUPvHoFvEOSaHQIkQK8EDxNaSCUbEIF0IfPuBXPlIPPmsb9NCXJgZHQ2 JRCrOfFmPHBkAIIoYCtcMIZkQLY8WLU6DVHaTPCwMQ 8LQwYoFDWjXApjQZemNOAeYHHvwo1SLOUyOQP1KQF2UmAhDIEiMKGgSAhjXNNwIBQ5ICV3LROiMTUxGO 0BKeRnEOLiKQV4VFXfFFVgUMRufv5DFERmORG4TDA9EWTpZTEuTZCwYJtgDRBtQZEcFLA7OKVnOXNvKR 7XUwNeEGFwEKIlTDTpSHWnFQQbiw6HAMKlGQG8Wiwo HkKbCEBrRNVkCMejTFOaBLFqSFfePOEmNIJrYE5VBvOpJMIyHVAyFeVpNQIsODGsng0VmJWbpHsvgp9L PPvYIh0UfUaiQBMiLWsbYb7jcLH1VJGbGLXTHg8LpsQjXHWiVTHYOHwhEWDkEDFkBKVjMVB0URn0Y1Pi H5JpNDkmYIKtIXO4GMQoEWAyWgE9EUBvFKXvPDG5ZS EnUTXgNCC5ABA2IOGdYVFuIhE8PdL+BU8dXQt+Vh7Mt2CuepI4joQeXQs2CoN0Gl9YJYLNE9ANTh== ID Date Data Source [id number] 09/04/2020 11:39:00 AM EST [facility] Name Value Range Interpretation Code Description Data Fabiola rce(s) Supporting Document(s) Glucose, Fingerstick 267 mg/dl 70-110 Above high normal [facility] The above 1 analytes were performed by [facility] [id number] [place] [address],[facility]#: [id number],[place] [address] ID Date Data Source [id number] 09/04/2020 10:50:44 AM EST [facility] Name Value Range Interpretation Code Description Data Fabiola rce(s) Supporting Document(s) Progress Notes [facility] NJFTRs2bMaHKHtRb95/FLVgzWFHlj2AyHEwiJOm9GDepZCWyE1KkPOU4hE7fDDI2XLvZSyRtNmSzNkZ2 lbm [file] AgICAgICAgICAgICAgICAgICAgICAgICAgICAgICAgICAgICAgICAgICAgICAgICAgICANCiAgICAgIC AgICAgICAgICAgICAgICAgICAgICAgICAgICAgICAg ICAgICAgICAgICAgICAgICAgICAgICAgICAgICAgICAgICAgICAgICAgICAgICAgICAgICAgICAgICAg ICANCiAgICAgICAgICAgICAgICAgICAgICAgICAgICAgICAgICAgICAgICAgICAgICAgICAgICAgICAg ICAgICAgICAgICAgICAgICAgICAgICAgICAgICAgIC AgICAgICAgICAgICANCiAgICAgICAgICAgICAgICAgICAgICAgICAgICAgICAgICAgICAgICAgICAgIC AgICAgICAgICAgICAgICAgICAgICAgICAgICAgICAgICAgICAgICAgICAgICAgICAgICAgICANCiAgIC AgICAgICAgICAgICAgICAgICAgICAgICAgICAgICAg ICAgICAgICAgICAgICAgICAgICAgICAgICAgICAgICAgICAgICAgICAgICAgICAgICAgICAgICAgICAg ICAgICANCiAgICAgICAgICAgICAgICAgICAgICAgICAgICAgICAgICAgICAgICAgICAgICAgICAgICAg ICAgICAgICAgICAgICAgICAgICAgICAgICAgICAgIC AgICAgICAgICAgICAgICANCiAgICAgICAgICAgICAgICAgICAgICAgICAgICAgICAgICAgICAgICAgIC AgICAgICAgICAgICAgICAgICAgICAgICAgICAgICAgICAgICAgICAgICAgICAgICAgICAgICAgICANCi AgICAgICAgICAgICAgICAgICAgICAgICAgICAgICAg ICAgICAgICAgICAgICAgICAgICAgICAgICAgICAgICAgICAgICAgICAgICAgICAgICAgICAgICAgICAg ICAgICAgICANCiAgICAgICAgICAgICAgICAgICAgICAgICAgICAgICAgICAgICAgICAgICAgICAgICAg ICAgICAgICAgICAgICAgICAgICAgICAgICAgICAgIC AgICAgICAgICAgICAgICAgICANCiAgICAgICAgICAgICAgICAgICAgICAgICAgICAgICAgICAgICAgIC AgICAgICAgICAgICAgICAgICAgICAgICAgICAgICAgICAgICAgICAgICAgICAgICAgICAgICAgICAgIC ANCjw/bXZvY5csgDUeljS2Y7brSp3QSk2OBF0nb9Ry NNLnWLiqxaVbSruEBiDzVVOlJeeJOne5FNsjKI9PmJEcV5AtD3SxVMijHG9IMEGvWUDybXTnLDBxCPIk PmI0FPCsGWglEZ5HyDUsBQbeJNDkCXKjRE7MDHOfJ235adPkDG9GOh1BMuKlZI9oqi7NBVahFBFtTbdI Pmt4IBivML3ZiSTjpFLtBPCjIRTAVaVuK1ujz6UjSB idKWNAATbgDL1Pb4VxmKRiFQu+Dx8XFK3mz8EpPKvmCXMfLF1hxj6ELEwJMiKjS0UxzRkzIXTqk2pxEF RnEW8lkARpETF3XCVsbTWakKEPGUI3pV4hLPdgnzUuOK2VBBE4OHNhTS9rHMCxDDRzMaVlXQNMGF0MDF EiLGWouHMnWNMrVBZORY9RHBzoKDK3EbruufPuwTJa TKnkFU3JOTMhzbDvJDxsXZWNEHt+Ru8WXO5fd1FwDTysYQGuYZ1pvc0MQWpNHeAyG8T8iCBqU5V0ZGaj Mz7AUOMoFHRyBTIiFJSDBWfuDM9CWP8uplC1QK3ThIEnTZQuPAMyoZQjEAg8I19znAVyAEpvML3RVUE+ Anais+Fn3YDFYsYRAgJOMwOcNtUMXKSpRwR9NvY9JEl2 WiH2NpBV57qCmdsoGjRSfaLL8QQC9dTUTiYUIKGZ9KlQVtyV0lppMvIyWkICKMUzZiE05wlCPrGWYaQD X3UVIxNx4BFZXvJ4XzkwAkcXeotvVlTLVkFEVIRS8NQQgjlvLvnZIotErbXD25aDkhLU9KTm4RGnOwVE 7fve6RiIVtPv0RFYRhPF7ZKKPnXIUfEBWkRJP0HNPm TmQgFPqoORCsRHNoMEC4ILIxLZSzDH2UQvQlYJDnRUK2IQMvAZJvJGHmwn7FNZXzZZIeYvF6SHOgCADv IMKqLNbxBEDiWYDcMPH8OYCsFYCcIJ0BRvMxJCRvWSA2AQVqXECyOYBirq9OAAXwDDHoHGxtTZNbMSVt XWAeUDrtNRWcWAVmXkA6FHWjARLqIL1QPaHfTRAeSI P4VTsaNNBxYVIcre7JYSFsKJHcMeJ2WVClPBWhZHScWYwzLSBkTWZ3PKJkYDKcLELfZV2QSwHqSRMhEQ WqEMSxXZMuOZEycy6LDPWpUIEeDQJ9WzSxLOIhSRTyGBnpFFAhSEA7IYPjNLLuDAEyUO6UBwGbBXFpZB E8ERUtNSBfCPPcxo6FEPPrMPZaGQnnKcPdFRAkEJJx NUbyYRVpXJI6KoA5JPEhMAJnFC2DXuZyWBKwKBc0KEWoNEEeJGHcpn4GHRDtQSGcLwu0FpEcLWUgICMv NHykOJLrOHA6CUHwFWHiYPRhCZ6QPsNjAQqcJVYBBng3RYjrJ2t9CDKiZF3MY6Vkt2SvDOuoPIGTWDuy YF0qbqWsFPGiYw9IL9yBYerwROUiTfGzLUW6FlK6M2 RsIoDtTtNdSJDpOYLzEUF3Va9iRVX6X4P9ZMT2HkE2Hhp8YCGpMAK3WYSpAWSvVmG4MYz3DqFqOF2TTu 4CRqF4UQO3bXLsUd2DZGZ1JU2NHFDPO9SSXp== ID Date Data Source [id number] 09/04/2020 07:39:00 AM EST [facility] Name Value Range Interpretation Code Description Data Fabiola rce(s) Supporting Document(s) Glucose, Fingerstick 229 mg/dl 70-110 Above high normal [facility] The above 1 analytes were performed by [facility] [id number] [place] [address],[facility]#: [id number],[place] [address] ID Date Data Source [id number] 09/04/2020 05:15:25 AM EST [facility] Name Value Range Interpretation Code Description Data Fabiola rce(s) Supporting Document(s) Nursing Note [facility] THRBLj3fYjRKMhFx78/VTBxbZZOii9VdODuhGJf8TKsaXNEaR9JsOVK2nR2aJON0FBjMViKqDzPeQpA7 lbm [file] ICAgICAgICAgICAgICAgICAgICAgICAgICAgICAgICAgICAgICAgICAgICAgICAgICAgICAgICAgICAg ICANCiAgICAgICAgICAgICAgICAgICAgICAgICAgIC AgICAgICAgICAgICAgICAgICAgICAgICAgICAgICAgICAgICAgICAgICAgICAgICAgICAgICAgICAgIC AgICAgICAgICAgICANCiAgICAgICAgICAgICAgICAgICAgICAgICAgICAgICAgICAgICAgICAgICAgIC AgICAgICAgICAgICAgICAgICAgICAgICAgICAgICAg ICAgICAgICAgICAgICAgICAgICAgICANCiAgICAgICAgICAgICAgICAgICAgICAgICAgICAgICAgICAg ICAgICAgICAgICAgICAgICAgICAgICAgICAgICAgICAgICAgICAgICAgICAgICAgICAgICAgICAgICAg ICAgICANCiAgICAgICAgICAgICAgICAgICAgICAgIC AgICAgICAgICAgICAgICAgICAgICAgICAgICAgICAgICAgICAgICAgICAgICAgICAgICAgICAgICAgIC AgICAgICAgICAgICAgICANCiAgICAgICAgICAgICAgICAgICAgICAgICAgICAgICAgICAgICAgICAgIC AgICAgICAgICAgICAgICAgICAgICAgICAgICAgICAg ICAgICAgICAgICAgICAgICAgICAgICAgICANCiAgICAgICAgICAgICAgICAgICAgICAgICAgICAgICAg ICAgICAgICAgICAgICAgICAgICAgICAgICAgICAgICAgICAgICAgICAgICAgICAgICAgICAgICAgICAg ICAgICAgICANCiAgICAgICAgICAgICAgICAgICAgIC AgICAgICAgICAgICAgICAgICAgICAgICAgICAgICAgICAgICAgICAgICAgICAgICAgICAgICAgICAgIC AgICAgICAgICAgICAgICAgICANCiAgICAgICAgICAgICAgICAgICAgICAgICAgICAgICAgICAgICAgIC AgICAgICAgICAgICAgICAgICAgICAgICAgICAgICAg ICAgICAgICAgICAgICAgICAgICAgICAgICAgICANCiAgICAgICAgICAgICAgICAgICAgICAgICAgICAg ICAgICAgICAgICAgICAgICAgICAgICAgICAgICAgICAgICAgICAgICAgICAgICAgICAgICAgICAgICAg ICAgICAgICAgICANCjw/xRLxQ2ygzMBfrqI1Q0uvNt 4LPd0KFT4vg2VeJXLpBXmadfWlVrwDYoWbGANeTejBTfs1TYffMV2SmMNrO3GgP7JiUUerKK3OKBIbGE LszFQlIJOeKSLfIpL8CEEkFFekRR4FmERnCLkzWJYkPNDjHL4WREKxS975smYvOJ7JTu1WQyUyMR7ter 6MIoBkHYTvGncFLsk4IFwtPU3RlVRwyRErNxGuQXSS FmOzD5hbo9TaNdUdOPZISHtpDE6Rl3LmmAUyGJe+Hx5BWG7rx3JcVNokIdGuVP4jbz9ORSfGRzEeL5Xx hPozDR97hdJcajfwSl91SKQbeRADCLZlsQLaQ3YbnPp4IYPGTjKqyAGyZatiYiQzTBHpWGrdPWJSQTwQ NsQkD8Ngx7KzKdK0VNJoVqAdLAuvUBFqCtV2VN54jC rkXE5VMLVcWQWlNL90SUGbWNDnKg7JDf7OPtCbDW5jkq7YEaZpBEEuCncVRlq1HCnoTD8BxHYwR4HsfZ Tyd9yOFbXxY9OSCVXmDONiLm1YXUKhLaDaEGIxVKahHE1aUEAmWGFFuDcbfkZ9CI2DBI7qxhTyFQ5HUq AeSm5yNb6CKwFiU8GrI2ReLBBzYTYQCKucUB7FDTdf NM7yKQ3Jn9TFtTDajD0tlj3DBRJxJNMtQlbkww8FRimwE1L0pHdoRINfHuDdLBUDPYelMD1YFJBwNTF3 CUPtYJHhGZOICsUzD85tQV6CS9Juv82oCbT7HFBcIjBaZOklAT43iKiwuyGcmNFxfXnuKL8ZIh7+DQpl bmRvYmoNCnhyZWYNCjAgMjUNCjAwMDAwMDAwMDAgNj F9OfErDi1NXCEtQDIwQNPdNlLcHWBkUGOiFBqyVQRvSQH9ELW4NWDrJTUsSV1FMzPuPFKmDjZwWnEuIC TsZXSowm8MSWCqAJGfIVC4DuFfXAJaMYItQQgbSOZxQUZxOImmPHQzQQNnAV1GJlFrPUHjWHQfApUxLD TfKMMhgd4DHMHfIAHdAhLiEsGzAKBoDAYyZAcpMWQu QYOmOoG1QVQuAJOzRS7FNbQoPBMmGLX4LCzwZPVgGBIjap3XDMHvMFGdYvM4DKDqXBViPPDpXMqoAGEg DSDsWwq7ROCgDDQiUI1BVdZqPDOfZPN0QAseSPPmAQYnlh2XNBDaHXOlTdBmYvMuUYPtWEPjBKzyGNVg MGY9KJQgGXEgMGFdRA3RLdGzJOSmHEQ0GnZzEHAeAO Oolh7MTHQoVCJhZuk2LXQpQOZxDRFdJJzaYRXwILU2CKV6KVJlYQBcFQ1ANlDrGIWpVUwiLDznHYNzPU Lgve9RKJWmZVIxRRL9VUZkHFYqRQEyNVvlWGFrXZY4NHS1CJRzGILqFU3TQyDjNOHaXVy8HfJoDODxEB Voae5ZIAJfRISgMIW4ABUyEGTjAMNgPUueJWLjRICx FbJpWFSxBDCrUW9DIePvSUUcFqO8COxpLBZpSDSdal2WmMOjsOcdly8WPSpPKv1XyMzeXLQ8BDbmDg6b qFOlKMTvJXRQIz1DjpWeJRSbOVVYVNluKGEwBFA1WtmlJkN2RYYsZ1GyY2S3DATvZVCsC5D4D8B6MGR3 WjE8QnmgW0L4GyZ6Y8Q6MoK8RMYhFtZzVIF4WbtaAB dlZTU+YQ0tJDa+Tp9Ai9SamyT5veHkMBwtUFgrDB5LDXJXA3GHKm== ID Date Data Source [id number] 09/03/2020 09:05:23 PM EST [facility] Name Value Range Interpretation Code Description Data Fabiola rce(s) Supporting Document(s) Care Plan [facility] WTWCBk4tNeZEYiEc35/UIHiyWJSba7PjDJumPFl6KGckNRWaU3FtLAM1dI2pHXK4EOtWGhIsUzBqVcY5 lbm [file] AgICAgICAgICAgICAgICAgICAgICAgICAgICAgICAg ZZLlGJGeOPFmTI0NRVAyTXXgVPTgVKOdISXpEDWiZOFdTTGaXOIaGTDuLOEeGRNnZLRgQQLbCXGyFJIe NMDsUUMxXUSrWFAsGJLdHXXrWVKrBEFrAGLrXBNjUXZfGTDiDIUcSINxQGQaTLVwWJHwZF8UYKCxUKHu ICAgICAgICAgICAgICAgICAgICAgICAgICAgICAgIC AgICAgICAgICAgICAgICAgICAgICAgICAgICAgICAgICAgICAgICAgICAgICAgICAgICAgICAgICAgIC SoJF4XBJQlKGAbEAVbGCSlNHGrVXYiGMExJHWkMWUyDRNzCZHnYIBxIWDnVVLvDQDfAYUfJMNaBORyRQ AgICAgICAgICAgICAgICAgICAgICAgICAgICAgICAg WLWxENWbVDNaLDQpDJ0ZXMUzQURmGTXcYCLtNJYhPFHfVKZcZVQtBZVyUVNgFZAwYGMmWTJpYKGbLFIu TRZxGOWoWDQhPHJpECFuTCAaADSqAWBiBZGiZNJyCQXjGZYrRRWbUWBrKUQrGETnSCKiXPQhNB5YRCNb ICAgICAgICAgICAgICAgICAgICAgICAgICAgICAgIC AgICAgICAgICAgICAgICAgICAgICAgICAgICAgICAgICAgICAgICAgICAgICAgICAgICAgICAgICAgIC OsJNDhJL5XSLBoQTMePPPmYGAaLBHjUDZnIXPxFPZjZNSbQFIoVQEsVKGwTTQfANYqJBWuDMYePVPnDD AgICAgICAgICAgICAgICAgICAgICAgICAgICAgICAg HAQkTHVeVWOzLMQxJBWaNT6KBWHoKSZeYCGjBYJoMBCkEQNfPWIgQGGbNEIgESWnVUExOKRnGFUyXTJj WWXpOUTyGEEkSVSfPGLrXXYiGXApWPViVNUqQMTaBSYzLJAdQSHkAGWsLSScUCLuNSDeKRByFZMzYY4Q ICAgICAgICAgICAgICAgICAgICAgICAgICAgICAgIC AgICAgICAgICAgICAgICAgICAgICAgICAgICAgICAgICAgICAgICAgICAgICAgICAgICAgICAgICAgIC EvROAaUAUrFX7UTDLkAUDmWARsYIStCNYuMMQiRRCcURFiSLQtYOWeJPXgRBIxPUTmKPWtHJCpWUKzSW AgICAgICAgICAgICAgICAgICAgICAgICAgICAgICAg FMMyJNZbJIAaDMVxYLNdVWJoTF0QVK05bOLci3H8ZCTjZB7lgpz/Lo5WVHjgnlWimDAsTB4NYlSnXM8c ht6XKdHsKA6eox5JJCbEGkQhC2C6wTWsXCSiSGTSYyThF29kDVfqEs29NSwnZIMtGjEnKVf6Hv6NSzZp X2vcPEWjKyI5XXPzNyOyBUsgFI7Wn6ZoiPTrDFq+Pg 0MHI4qb6KnWXaoAuOsGT5kwv6JSDfYQoUmF2WaedY2NSVyNGQfTk2VCDHcKNKrdZNhVsOkBHUACnDzH1 QtdZ04KDTFCw8+TCtqwcPjSwdWZnEaSFWuy1UhEYm0AS6CLTSiKDk7vYMzH3UbVSGVmROsWVI1OKnjr8 qkUSWAK4j6iXpcJEENBAG6IGDvHX1fQBTlNFZ0DuRz IVMVQZ1KNBWtUTBhwWWpDBMqRWMHMR4QAUxwMWG3WiosunMtzSOnTUnfZQ0XBSQmlmUvTqOsNWJUTYg+ Td3VLG0uf0ZgTDrmJRRaME3okq7ZQDnLLgTwC1I7oYWrS2R3OGgeYo7UZUSuCXTsTvSvKNYYRJkjLW8A LX1izkV4SV5YlRSvTXEuWIDuaREdKAk4O36llYBbVJ elFG8DVTI+Anais+Xz6ALNViSAXhXPJfYcHoSRQUVdCqF8XcH8CIm1ZbX9EfJF38qYvcvyDrHGqtGC5TIA 4bGBDbQUVQRJ1FqJAymG6fjpZbJqUqKFJPQyUtZ38ogVLfNSKyRJRsAVFrOb9HVDJoQ1PahkOrpPmuux XnDRZlZLSFMD9LBXlinoBecKJeiXxoOI17tIpeUG0F Ow4WYiZuAI6jdk6VhKCjYg6TVGYdXM8VCKVrQMZqSTTrSRY3ZLMoSgQvHBalZYLgQXBfFNZ2LYSrAGOi EW9ARtQbBTBmIUy1PsViWQEbLHDkyc5YTIGzWXGoVWK8CeWaVKVrXWNxICvaWJKmJBHaZSG5VYMiQRVq KD6NMcUiGMXkLTS2DpDjGXWmZARdsi4WZBIaOHPyVK Y6SHOoYSGrXGOxACbwKHUdEYEbDvL3VSOwUGAyUC9MBjHoICBiUDL5BwvpANAkCVLsjm5UQCTtEFVbIb YcEoTrGQKkCREcTLrkYBTuUSDyQSdfXVWqEQPuTU2ARjZbMVKfIZMnKkliQTGsDLHugm5PXAIuEFXiYQ Q1VPYoPIVkVIOaCZvaXLUbEYJ0VkYzOCPrIBSrZQ0E TeIgYOWfYCikQCLkWPLrMQZxlj3ZDYBlCHUuBiHaYAZpNYNbHXZiNGkpSPReLZW9CLP7ZTXeMEHaJC1E MyQnFGFcCAc5YDXhMFAgEWPbse4GMTOxTYZdJDB1ZhBcNIZqISWhDUgpCOFrEVV8ExH8OOOqLIVnWE1I VlDkIFZtNEw7UTCzWHUsTJMepd1VAFZiDEByXXDgGe LeAGDtWKUnPAnfCHMsJZJpJtT1MMQzLBEwGF3JYhPkOABeNkG3UnWwPWLlPIBgfa6OTXSwBJSzIOm2CL UeYGTpYBWnDFq5lbOzdMTjSOd5AJ3LE4KzkjBoNuVZFy4Jw510VQG2XELgKw7OD7chDw6gMQNrCCVNDe 1KVHr7NQl6LWDnKrQ9FNGrNUHcPgV3OVFlSiH1VhL9 NmIwOTE+WDppTtL5CDQpNoO2BdOuCCZoTFz6FAWxXOzmERM3DdK4TA6nJUFRFb1+DQpzdGFydHhyZWYN FoPiPvKwIIweIIZNFo7A ID Date Data Source [id number] 09/03/2020 07:51:00 PM EST [facility] Name Value Range Interpretation Code Description Data Fabiola rce(s) Supporting Document(s) Glucose, Fingerstick 286 mg/dl 70-110 Above high normal [facility] The above 1 analytes were performed by [facility] [id number] [place] [address], ,[place] [address] ID Date Data Source [id number] 09/03/2020 05:09:00 PM [facility] Name Value Range Interpretation Code Description Data Fabiola rce(s) Supporting Document(s) Glucose, Fingerstick 132 mg/dl 70-110 Above high normal [facility] The above 1 analytes were performed by [facility] [id number] [place] [address], ,[place] [address] ID Date Data Source [id number] 09/03/2020 03:00:40 PM [facility] Name Value Range Interpretation Code Description Data Fabiola rce(s) Supporting Document(s) Care Plan [facility] VGHWIo8bMkEDUoDg67/ATQuhKMWtv7HqKCoeJNd7GGcqAEEiV4FxDMK2tP2jLKB5JJnQEiRuZkYmGnG3 m [file] AgICAgICAgICAgICAgICAgICAgICAgICAgICAgICAgICAgICAgICAgICAgICAgICAgICAgICAgICAgDQ ogICAgICAgICAgICAgICAgICAgICAgICAgICAgICAg ICAgICAgICAgICAgICAgICAgICAgICAgICAgICAgICAgICAgICAgICAgICAgICAgICAgICAgICAgICAg ICAgICAgICAgDQogICAgICAgICAgICAgICAgICAgICAgICAgICAgICAgICAgICAgICAgICAgICAgICAg ICAgICAgICAgICAgICAgICAgICAgICAgICAgICAgIC AgICAgICAgICAgICAgICAgICAgDQogICAgICAgICAgICAgICAgICAgICAgICAgICAgICAgICAgICAgIC AgICAgICAgICAgICAgICAgICAgICAgICAgICAgICAgICAgICAgICAgICAgICAgICAgICAgICAgICAgIC AgDQogICAgICAgICAgICAgICAgICAgICAgICAgICAg ICAgICAgICAgICAgICAgICAgICAgICAgICAgICAgICAgICAgICAgICAgICAgICAgICAgICAgICAgICAg ICAgICAgICAgICAgDQogICAgICAgICAgICAgICAgICAgICAgICAgICAgICAgICAgICAgICAgICAgICAg ICAgICAgICAgICAgICAgICAgICAgICAgICAgICAgIC AgICAgICAgICAgICAgICAgICAgICAgDQogICAgICAgICAgICAgICAgICAgICAgICAgICAgICAgICAgIC AgICAgICAgICAgICAgICAgICAgICAgICAgICAgICAgICAgICAgICAgICAgICAgICAgICAgICAgICAgIC AgICAgDQogICAgICAgICAgICAgICAgICAgICAgICAg ICAgICAgICAgICAgICAgICAgICAgICAgICAgICAgICAgICAgICAgICAgICAgICAgICAgICAgICAgICAg ICAgICAgICAgICAgICAgDQogICAgICAgICAgICAgICAgICAgICAgICAgICAgICAgICAgICAgICAgICAg ICAgICAgICAgICAgICAgICAgICAgICAgICAgICAgIC AgICAgICAgICAgICAgICAgICAgICAgICAgDQogICAgICAgICAgICAgICAgICAgICAgICAgICAgICAgIC AgICAgICAgICAgICAgICAgICAgICAgICAgICAgICAgICAgICAgICAgICAgICAgICAgICAgICAgICAgIC NsKZLuRBArVHi2Z8qiGZCxDSRiQI4qMTz9Sx8+DQoN VeZuLNQ5yfXasL3UQO7en3KpTQawZZOxf7DfGLu5BZ1HUDUtZZrrFA6DNHfucq5BZKVuKQRnmRYZf7fq BhDzQNB8IBCgBzxdYS1NENVsD8sqxiEjMIVvZHGONJ7LEmIjU7TndX40DLAWXu4+DQplbmRvYmoNCjIy ZTHze0MkDBq1GC7ACIUuXvqzj0GjJyNdXAMYUZkcQS 3YCKE9RBHtVZLeVh9AZEFiH488lpKqWZ6TOu2MHyTyZA4cgm2VRaPcCCOrZwkPZka3QOuwQW0AdIZvBX cRLXJtDHXsJM9aVkyxUq5qgEMpRE1mh2heORCSWNM6LNJzJU8nCPMiTQQqSmR6IWYKSW4RGXZxEPBckG AoIMAlQRHNBA4YQLzjBRE2PdettyEibCVfNCgbUU5J YXJlbnQgMjIgMCBSDQo+Bj1GAH6mf9JvOIarORDoIK1iam0YHSuEDgCqX0U3bGIhF0S8YQcyRc3MTFFf EISkDgPzFDIZMXtyJJ7NBP0ihwR2AD8ExJChNPZjUCVdhKZrEOc8P66koPUkLFibGO7JTAE+Anais+Pg0K QOEmKJPtMALrTmGcPQYYAiElD8ToQ4TXn2MfG9HhKA 99yTgbjxBmBAbzRQ1FZF4vHNArNWSJZR5HyCOriA3xokFtUlLvAJILZlDvN52fwIBkAOMdWOHcPOBqVb 8BRYExI1SqhuQglQhynhRyGMSlHIWESA5XEDykajDwxNOeyRiiMW51cKfwOS0VWn9JOcHcNA7ywk1PzI WhVq5UUVBkIW7RSEMaTZUgMMArCLK1WZYhTzLuCDmd JAApNSIfXCV8SLBnWMVeYV0ZWtFxNXGfGAfoSFBuGOVkNSSqcn7LLNFnBGRzRByeCtShMGTiLEBiVSpg SIOyPMNgWRB3GJQtARDrOG6SNnAfBMUmYRT3IqJpIMJuHBTicl8ESCBtEDTnXYisSNZaZODmYVDyZPqs RYDsIASbRTh9IBYnPJEiOS0LKqIhYPQrADXlATwpKW PvXFByvc5FCFWoSAVsBcT3JfQnFHNzSOLkKSuhOYBzOUX0ZxPbGBQlDRKsUO3LVaMpUWOyXFR7SgilPP IaRLLtdo1VURDfDXIwJLKyRKYbGTZrBLJxUErfWAOvXCC1CPFlZGDxKPGdHC4JXcLbEBHzYYydBhXeKV NfFQRazd3PYNQvDWSjTzL8IRSeZRSjXEAsBKzgOOYl IVQ3VrV6PSFrAZLrQV3NMsTpJNPhUAt4GoPhCXIqTWMncb9SESAeDNVvLJynKyHrPCItQABqRSppQFRq UYQ9IAi9OYHmWGNzZU1CUnMnHAFkBOzsKcQyDTFqUSWhor2QCYXpPZAoROQ6ZhRvTVUmPKHaQGnxLRXk YXFuDXK8RQAuIBZjZV2BOpAqCQKbDsMoIEQcQDKzQP Xuol8UNNVxYMQwGNThVhXgHRUfBISvYPq6dtKcbQOfDAl2PA6YO3MxecDeXcTIGf1Bh925TBL7TVEwRk 2ZT1qcTo8eYXJuCHIZJd5SUHi0AfIqVHXbHjYzFBVjYbY1LYV7CIXkMYBfMywmGeH6YQY+CTi4LMWoUE W6YGXmGOBmCzBnNGvhALXpNkFeKQUyLFziXE3gPS ANCj4+SVomnCBmuKicXUWDFnBkYCyjWOctGMUWTk6H ID Date Data Source [id number] 09/03/2020 11:39:00 AM EST [facility] Name Value Range Interpretation Code Description Data Fabiola rce(s) Supporting Document(s) Glucose, Fingerstick 121 mg/dl 70-110 Above high normal [facility] The above 1 analytes were performed by [facility] [id number] [place] [address],[facility]#: [id number],[place] [address] ID Date Data Source [id number] 09/03/2020 11:17:36 AM EST [facility] Name Value Range Interpretation Code Description Data Fabiola rce(s) Supporting Document(s) Progress Notes [facility] YVOMNg8qIoMNLoDa95/KCFrxITYcg6DyBKduTTo3VAcdFNIgJ3VaJTG3fE4gBDG7KJvTMhKhMeIoYuW3 lbm [file] AgICAgICAgICAgICAgICAgICAgICAgICAgICAgICAgICAgICAgICAgICAgICAgICAgICAgICANCiAgIC AgICAgICAgICAgICAgICAgICAgICAgICAgICAgICAg ICAgICAgICAgICAgICAgICAgICAgICAgICAgICAgICAgICAgICAgICAgICAgICAgICAgICAgICAgICAg ICAgICANCiAgICAgICAgICAgICAgICAgICAgICAgICAgICAgICAgICAgICAgICAgICAgICAgICAgICAg ICAgICAgICAgICAgICAgICAgICAgICAgICAgICAgIC AgICAgICAgICAgICAgICANCiAgICAgICAgICAgICAgICAgICAgICAgICAgICAgICAgICAgICAgICAgIC AgICAgICAgICAgICAgICAgICAgICAgICAgICAgICAgICAgICAgICAgICAgICAgICAgICAgICAgICANCi AgICAgICAgICAgICAgICAgICAgICAgICAgICAgICAg ICAgICAgICAgICAgICAgICAgICAgICAgICAgICAgICAgICAgICAgICAgICAgICAgICAgICAgICAgICAg ICAgICAgICANCiAgICAgICAgICAgICAgICAgICAgICAgICAgICAgICAgICAgICAgICAgICAgICAgICAg ICAgICAgICAgICAgICAgICAgICAgICAgICAgICAgIC AgICAgICAgICAgICAgICAgICANCiAgICAgICAgICAgICAgICAgICAgICAgICAgICAgICAgICAgICAgIC AgICAgICAgICAgICAgICAgICAgICAgICAgICAgICAgICAgICAgICAgICAgICAgICAgICAgICAgICAgIC ANCiAgICAgICAgICAgICAgICAgICAgICAgICAgICAg ICAgICAgICAgICAgICAgICAgICAgICAgICAgICAgICAgICAgICAgICAgICAgICAgICAgICAgICAgICAg ICAgICAgICAgICANCiAgICAgICAgICAgICAgICAgICAgICAgICAgICAgICAgICAgICAgICAgICAgICAg ICAgICAgICAgICAgICAgICAgICAgICAgICAgICAgIC AgICAgICAgICAgICAgICAgICAgICANCiAgICAgICAgICAgICAgICAgICAgICAgICAgICAgICAgICAgIC AgICAgICAgICAgICAgICAgICAgICAgICAgICAgICAgICAgICAgICAgICAgICAgICAgICAgICAgICAgIC AgICANCjw/sCUhJ2rhlAAxkiZ0M3vmTw0FPg0IRW1l s3GhAOJyJZbxsvMlCveQJbNdTHUkDojTRmo3RXsnRV5MqOKyX9TxU1CzEQhhTN0NDHHhXTBnsGOfWRGw NBZzCfR5ILIqQHgjKM0YzRPxGDdiWCFfEMRhHI6YYUYwR662htOuJE8LWw6BLnSoDS3dsv6MHUdaBNFo JkbMXaq6PJkmFH9HbLDonTYsSLRlBDGDJlUuP3jqv1 IuNKxhYWAKQYuyVO5Gb4LcjPYdVOh+Hf6XMI1nh1GxVEsdMKYbNV9are2MRXfHQgVkH1DowGskKDVfb3 amDABiMS3sgNPwBWU2XIJhzQGnqMKVFMV7hR8sLFikqwHeNF4EQQI0PSVbJQ5vROZkVUQzMdRyVOQJTZ 9DACEmTRJhxWTmOXGlTAMCJT8YWOtoTVB4TcgdngDd nEFnQQzuED5QSZCsinKoUNznUXSRUDw+Qp6UCL5am9ZyZVffYWAsHC9yma1QNIuKMvJtL1N4mFPkJ9J8 OJtkHu1ZHPSqEEEaWPVqVVUFMXsuFS4FJS6rxkT0CW1FhAUzLFPpLCOjmEBdKJk1Z79moLLwZYfdAL0W ICA+Anais+Wd7OLLOwCFWpCWHwXtSiTALNAiUfZ5RnA3 NXl8SaR0MrKQ50sMenwqRaOYgtFD4YKZ1fBUMdGIWIUP9MhZQpwD1ebpExFeClFJBTIgGzZ37kjTCiMC BkMHC4CTDfEg5UUVTzE1RewwEwpFrrigWrUNEwFQUSJF4OPKnjokTesAKmqNjuDM89wUulEA1TRw6YUy RuUD3rdd5NqVYrGq5AJWNaUA4SVNUvHESkNSYzSFR2 YJRkJeTvAUppTURjYUHzIMV5WHAeQZEhXJ5DMpYeUUWmBDM5PBCwDYLfWGBuxg4APBIbRVKoIkI1VBKz COSyIQNkPPwpPVEhRJUeWPO2SKOrCXCuJO8IJnQrFOUfBGN8NBshDYSwXAOcxm8FPAEpSTTxTZpmXgXl NXYyESRwFVyqVVAlZIKvNiDhCCDzQABcHW0DHdFsOR FiBUC3CdZrIZLiLXKdhy7JHFIvPUPiKjT7QtCvKBYbPKBvKUepIHWbLXA6YOI2KWOmXOBoUY7PIeDdRF GcSXPsTADvKLZvXGUtis0GYVWzTJNcZGC0JPZgTLKhBWUfUQclXWJgBCC9YYOiHLHrJEPdWR8GJpZsSN GnEWV6OSFgVLTiGZUpzp2IYLPtSNOeVFluSIElVUQj HZRnQMlhMFIhMRW2RwFqCHLpIMQiSU2RRrEzCJVaWZi6QNlxBGEnGSKwtm6RTGVoOLHdGbj2YKQlKMIw QZWbGMwxIWStMPO2BCDmFYDqNABnPV8NVoHmDMmcWTERDxg1QOtuK0f4JAClBG6MC7Puo1OkTHwsUNQK LQpvUH0dtkEdGMEkWp2FU8eJFmjmFYJ4KoM1SITdDS SfCsR5DZn1PyG0QGFoNFLlIRNpXm9gHJZnNQExTgG0HeBwD4T7EJHqMRugEUJgXoD0AxD2IIDbUjRuME 9LZv3KGwH3FTK4aUPqOu5WBVH4Mc8UOFILF6PDUa== ID Date Data Source [id number] 09/03/2020 12:40:00 PM EST [facility] Name Value Range Interpretation Code Description Data Fabiola rce(s) Supporting Document(s) PSA, Total 1.64 ng/ml 0.0-4.0 Normal (applies to non-numeric resul ts) [facility] The PSA is performed using the Siemens ( [place]) Nesquehoning assay methodology. Sequential comparative analyses should be performed using the samemethod since results obtained by different methods are not interchangeable. The PSA assayshould not be used as a cancer screening test and should not be interpreted as evidence ofthe presence or absenceof malignant disease. PSA, Free 0.224 ng/ml [facility] The table below lists the probablility o f prostate cancer for men withnon- suspicious RADHA results and total PSA between 4 - 10 ng/mL, by patient age: (Siemens ([place]) assaymethodology)% Free PSA50 - 59 yrs60 - 69 yrs70 + yrs< or = 10%40.2%47.1%66.0%11% - 19%14.7%24.1%31.6%> or = 20%7.1%14.3%12.5%Sequential comparative assays should be performed using the same methodsince the resultsobtained by different methods are not interchangable. Results cannotbe interpreted as absoluteevidence of the presense or absense of malignant disease. PSA, Free % 13.7 % [facility] PSA Frequency First specimen [facility] The above 4 analytes were performed by [facility] [id number] [facility], ,[place] [address] ID Date Data Source [id number] 09/03/2020 09:42:00 AM EST [facility] Name Value Range Interpretation Code Description Data Fabiola rce(s) Supporting Document(s) Hemoglobin A1C 10.8 % 0.0-5.6 Above high normal [facility] Attention! Effective: 07/06/2019Please n ote a change in the reference range for Hemoglobin A1C testing.Previous Reference Range: 4.2-6.3New Reference Range: Normal: Less than 5.7% Pre-Diabetes: 5.7 - 6.4% Diabetes: Greater than 6.5%The above [address] [facility] [id number], ,[place] [address] ID Date Data Source [id number] 09/03/2020 08:11:00 AM EST [facility] Name Value Range Interpretation Code Description Data Fabiola rce(s) Supporting Document(s) AST 15 IU/L 15-37 Normal (applies to non-numeric resul ts) [facility] Sulfasalazine and sulfapyridine have the potential to falsely depressAspartate Aminotransferase results. Baseline values before medication administration are recommended. ALT 18 IU/L 16-61 Normal (applies to non-numeric resul ts) [facility] Sulfasalazine and sulfapyridine have the potential to falsely depressAlanine Aminotransferase results. Baseline values before medication administration are recommended. Alkaline Phosphatase 85 mIU/ml 50-136 Normal (applies to non-num zbigniew results) [facility] Total Bilirubin 0.30 mg/dl 0.20-1.00 Normal (applies to non-numeric results) [facility] Blood Urea Nitrogen 28 mg/dl 7-18 Above high normal [facility] Creatinine 1.10 mg/dl 0.67-1.17 Normal (applies to non-numeric resul ts) [facility] N-Acetylcysteine (NAC) and Metamizole brady ve the potential to falselydepress Creatinine results. Baseline values before medication adminstration are recommended. Patients undergoing treatment with phenindione will have falselydepressed results. Patients on phenindione therapy should be tested with an alternativeCREA method.Toxic levels of acetaminophen may lead to falsely depressed results forpatient samples. Glomerular Filtration Rate 71.00 mL/min/1.73m2 [facility] GFR Reference Ranges:Normal Function or Mild [...] of Health and the National KidneyFoundation. The Nesquehoning method used in calculating this result is traceable to IDMS standards. Glucose 264 mg/dl 70-110 Above high normal [facility] Sulfasalazine has the potential to false ly depress Glucose results. Sulfapyridine has the potential to falsely elevate Glucose results. Baseline values before medication administration are recommended. Calcium 9.4 mg/dl 8.5-10.1 Normal (applies to non-numeric resul ts) [facility] Total Protein 7.7 g/dl 6.4-8.2 Normal (applies to non-numeric re sults) [facility] Albumin 3.4 g/dl 3.4-5.0 Normal (applies to non-numeric resul ts) [facility] Sodium 140 mEq/L 136-145 Normal (applies to non-numeric resul ts) [facility] Potassium 4.3 mEq/L 3.5-5.1 Normal (applies to non-numeric resul ts) [facility] Chloride 108.0 mEq/L 98.0-107.0 Above high normal [facility] Anion Gap 9.4 [facility] Carbon Dioxide 26.9 mMol/L 21.0-32.0 Normal (applies to non-numeric results) [facility] The above 16 analytes [place] [facility] [place] [address] [address], ,[place] [address] ID Date Data Source [id number] 09/03/2020 08:11:00 AM [facility] Name Value Range Interpretation Code Description Data Fabiola rce(s) Supporting Document(s) Magnesium 2.2 mg/dl 1.6-2.6 Normal (applies to non-numeric resul ts) [facility] The above 1 analytes were performed by [facility] [id number], ,[place] [address] ID Date Data Source [id number] 09/03/2020 08:11:00 AM [facility] Name Value Range Interpretation Code Description Data Fabiola rce(s) Supporting Document(s) TSH 0.29 uIU/ml 0.36-3.74 Below low normal [facility] Concentrations of Biotin above 100 ng/mL can potentially result ininterference.The above [address] [facility] [id number] [address], ,[place] [address] ID Date Data Source [id number] 09/03/2020 08:11:00 AM EST [facility] Name Value Range Interpretation Code Description Data Fabiola rce(s) Supporting Document(s) Triglycerides 97 mg/dl 30-200 Normal (applies to non-numeric re sults) [facility] N-Acetylcysteine (NAC) and Metamizole brady ve the potential to falselydepress Triglyceride results. Baseline values before medication adminstration are recommended. Cholesterol 150 mg/dl 0-200 Normal (applies to non-numeric resu lts) [facility] LDL Cholesterol 61.6 mg/dl 0.0-100.0 Normal (applies to non-numeric results) [facility] HDL Cholesterol 69 mg/dl 30-70 Normal (applies to non-numeric results) [facility] N-Acetylcysteine (NAC) and Metamizole brady ve the potential to falselydepress HDL Cholesterol results. Baseline values before medication adminstration are recommended. Cholesterol/ HDL Ratio 2.2 0.0-5.0 Normal (applies to non-n umeric results) [facility] LDL/HDL Ratio 0.9 [facility] The above 6 analytes were performed by [facility] [id number], ,[place] [id number] ID Date Data Source [id number] 09/03/2020 07:44:00 AM EST [facility] Name Value Range Interpretation Code Description Data Fabiola rce(s) Supporting Document(s) WBC 6.08 x1000/ul 4.80-10.00 Normal (applies to non-numeric re sults) [facility] RBC 4.82 x1Mil/ul 4.70-6.10 Normal (applies to non-numeric re sults) [facility] Hemoglobin 13.9 g/dl 14.0-18.0 Below low normal [facility] Hematocrit 42.2 % 42.0-52.0 Normal (applies to non-numeric resul ts) [facility] MCV 87.6 fL 80.0-94.0 Normal (applies to non-numeric resul ts) [facility] MCH 28.8 pg 27.0-31.0 Normal (applies to non-numeric resul ts) [facility] MCHC 32.9 g/dl 32.2-37.0 Normal (applies to non-numeric resul ts) [facility] RDW 13.3 % 11.5-14.5 Normal (applies to non-numeric resul ts) [facility] Platelet Count 290 x1000/ul 130-400 Normal (applies to non-numeric results) [facility] MPV 9.3 fL 9.4-12.4 Below low normal [facility] Neutrophils 53.5 % 40.0-74.0 Normal (applies to non-numeric resu lts) [facility] Lymphocytes 35.4 % 19.0-48.0 Normal (applies to non-numeric resu lts) [facility] Monocytes 8.2 % 3.4-9.0 Normal (applies to non-numeric resul ts) [facility] Eosinophils 2.0 % 0.0-7.0 Normal (applies to non-numeric resu lts) [facility] Basophils 0.7 % 0.0-2.0 Normal (applies to non-numeric resul ts) [facility] Immature Granulocytes 0.2 % 0.0-0.5 Normal (applies to non-nu meric results) [facility] Nucleated RBCs 0.00 % 0.00-0.20 Normal (applies to non-numeric r esults) [facility] Abs. Neutrophils 3.26 x1000/ul 1.92-8.31 Normal (applies to non-numeric results) [facility] Abs. Lymphocyte 2.15 x1000/ul 1.20-3.70 Normal (applies to non-n umeric results) [facility] Abs. Monocytes 0.50 x1000/ul 0.14-0.97 Normal (applies to non-nu meric results) [facility] Abs. Eosinophils 0.12 x1000/ul 0.00-0.76 Normal (applie s to non-numeric results) [facility] Abs. Basophils 0.04 x1000/ul 0.00-0.22 Normal (applies to non-n umeric results) [facility] Abs. Immature Gran. 0.01 x1000/ul 0.00-0.02 Normal (appl ies to non-numeric results) [facility] Abs. Nucleated RBCs 0.00 x1000/ul 0.00-0.02 Normal (appl ies to non-numeric results) [facility] The above 24 analytes were performed by [facility] [id number] [facility], ,[place] [address] ID Date Data Source [id number] 09/03/2020 07:15:00 AM EST [facility] Name Value Range Interpretation Code Description Data Fabiola rce(s) Supporting Document(s) Glucose, Fingerstick 228 mg/dl 70-110 Above high normal [facility] The above 1 analytes were performed by [facility] [id number] [facility], ,[place] [address] ID Date Data Source [id number] 09/03/2020 05:19:38 AM EST [facility] Name Value Range Interpretation Code Description Data Fabiola rce(s) Supporting Document(s) Nursing Note [facility] KRMGPt1dBtIRUhMb71/VPXwuFYHsi3QeSEscLLt3BBmdCROrB0TxRXA8vI2yXEM9QUqQQuWmCmLuDsM5 [facility] [file] Y+IB8iGRi+Im5Eh8RofqR4sxZsIXrwSGxdHU0BGLVKR1NFQz== ID Date Data Source [id number] 09/02/2020 11:58:46 PM EST [facility] Name Value Range Interpretation Code Description Data Fabiola rce(s) Supporting Document(s) Care Plan [facility] CWSXFz7bHmVMNiHw18/MDTerPDAxc5IuMVefTEj0NTkkFLXvD6YiXTH9pI2pHQL1BPsGGbReFuMiQmN3 lbm [file] AiX0CAKyCSV+DQ3vEDu+Sx0Oc8NvggE4zhDyTMuaLTHdOe0WGVQYX5KTYs== ID Date Data Source [id number] 09/02/2020 09:30:00 PM EST [facility] Name Value Range Interpretation Code Description Data Fabiola rce(s) Supporting Document(s) Glucose, Fingerstick 125 mg/dl 70-110 Above high normal [facility] The above 1 analytes were performed by [facility] [id number] [place] [address],[facility]#: [id number],[facility],[place] [id number] ID Date Data Source [id number] 09/02/2020 07:57:03 PM EST [facility] Name Value Range Interpretation Code Description Data Fabiola rce(s) Supporting Document(s) Consults [facility] HIIJBp9vYaROOpVp57/MDSdcTQDkz4HvJSshVTg8FKajOGAsR3PcJYF2lR3yBAZ5AQsGIiAsLmZfNfD1 lbm [file] AgICAgICAgICAgICAgICAgICAgICAgICAgICAgICAgICAgICAgICAgICAgICAgICAgICAgICANCiAgIC AgICAgICAgICAgICAgICAgICAgICAgICAgICAgICAg ICAgICAgICAgICAgICAgICAgICAgICAgICAgICAgICAgICAgICAgICAgICAgICAgICAgICAgICAgICAg ICAgICANCiAgICAgICAgICAgICAgICAgICAgICAgICAgICAgICAgICAgICAgICAgICAgICAgICAgICAg ICAgICAgICAgICAgICAgICAgICAgICAgICAgICAgIC AgICAgICAgICAgICAgICANCiAgICAgICAgICAgICAgICAgICAgICAgICAgICAgICAgICAgICAgICAgIC AgICAgICAgICAgICAgICAgICAgICAgICAgICAgICAgICAgICAgICAgICAgICAgICAgICAgICAgICANCi AgICAgICAgICAgICAgICAgICAgICAgICAgICAgICAg ICAgICAgICAgICAgICAgICAgICAgICAgICAgICAgICAgICAgICAgICAgICAgICAgICAgICAgICAgICAg ICAgICAgICANCiAgICAgICAgICAgICAgICAgICAgICAgICAgICAgICAgICAgICAgICAgICAgICAgICAg ICAgICAgICAgICAgICAgICAgICAgICAgICAgICAgIC AgICAgICAgICAgICAgICAgICANCiAgICAgICAgICAgICAgICAgICAgICAgICAgICAgICAgICAgICAgIC AgICAgICAgICAgICAgICAgICAgICAgICAgICAgICAgICAgICAgICAgICAgICAgICAgICAgICAgICAgIC ANCiAgICAgICAgICAgICAgICAgICAgICAgICAgICAg ICAgICAgICAgICAgICAgICAgICAgICAgICAgICAgICAgICAgICAgICAgICAgICAgICAgICAgICAgICAg ICAgICAgICAgICANCiAgICAgICAgICAgICAgICAgICAgICAgICAgICAgICAgICAgICAgICAgICAgICAg ICAgICAgICAgICAgICAgICAgICAgICAgICAgICAgIC AgICAgICAgICAgICAgICAgICAgICANCiAgICAgICAgICAgICAgICAgICAgICAgICAgICAgICAgICAgIC AgICAgICAgICAgICAgICAgICAgICAgICAgICAgICAgICAgICAgICAgICAgICAgICAgICAgICAgICAgIC AgICANCjw/mLVpA9ybrTTwbtP8X2zyBq3CRo9MXR4p a3IcFODvARyyyjVyNhvPUiGhSMWlFsuISaj4DMcnOB4XlFVbP1EcB2NrJEqeRM1GVVMnSUEhbOTcUDBf GGAlDkJ4NFVeKPlqCA8RoRBjRQzsPGFcOPZiTkVoGGYiBSSjTOLbIPYwCAJRBG8SSrCxZ4YlyR16HNRQ Cj4+PFpuhnZmWxyYGaF2BVHct3JuUPc3UR3UTIVfPr xri5VvSiLfCVGEHSmzWJ7HKCW4DPD8MPGiSa4TFSBtU145loVfWF6QRs6DOeAhEE5hov0NVvJbRQXuCg wMMtj2KIaqAI3IqSXdWZkBn53bzGs6doWlhNHWpNxgtAGUALnnC9bzklYkMF4KTON3MBVgUr2wBQIeDW LnXvP7PERNCW7KXEYaTULhaHWpKANnRFNNKW4XOOnf HMQ1RlimgqCqqAYrLVfiVW7WPGXyotWxUfMoIWTJLVb+No8PML0fa6VbFOxjAdMqUB9hcu4ZNApXOeIu O9Q2dHJhC8A0TWgcEx9XXTXxTGJqWuNkBNITBWalIJ0JRX7ciyO4TT5WhYScFAJuPCOfwFCqLOs8Y25e xDDmSTsvQS4DNWO+Anais+El1WFQAaVUYaJFDmJwFhZM SSFzBnF9QcK3FKc0EcB9GmRX34sTaqadZwBJpcRE6MDD4fOVMeLRTSLO0ZoJGipV8pddZnYDJzALDJJz EbU09nvHMtYLMwAMS9UKLjDy7EPDYqG4JwupBpvYfiwzFyJFVmAWLVKP9IDIstutMwkIOvwBqkGL69vC wnYZ7LVm1AMcRyHT9cqc8ElAPnPe5FETWaLD9YJELa NITpHDFuYKY4AAKdTnVbLJuaSBLfRAUfSST3UORbXNUqTS5RQfRcMYOmWDu1BKToQTVfIEGuqg0CLJJi XRAlYVSfMuBrKOLxFTYfSQtoNIRwFHCnGXA0SUHiQLCjUZ0YIsHcBVMqEMI0LdRmQFAvKAHcnb1IVHGx AXCpBwq7MCOhUGYjDTWhMFcxVTNsKGD5AZT5JXLfCW OhCC0UMnSyTOGaYTP9GaXdOEXkHRKtje2AWRGbYDYuXeOkAKMeNGIiQUHmBTowMSKsSPS2NXA0SPBgBV QlGH8KYaOgTGIpFKq4NQKdKBEbHORzmr9HUSJcOWPiCJOeROBqFISrVHMtPRzkKPKgWFK5NAttLBGkRG MbXE1WQeTqBNBfYRXkYKLfXGZtDPOtqd4FEOFaIGAg HBT8CKYcFGQfQOYmNGrcTPYmSYTvMyIgMMDqOUJhYU3VBjTxEWBgSTZ3GavwTUMsIMHhds0DFZBfWLZt IJjqBMPjKPBuOHQmPTssACTzOIMyHpV3TAVeCKJwHC4JMnIxPKOpUTQ6GEQyWBWmJFVqqh5YLQGwJWXe MbA5IAItPOTiNNQlSQtsFFJjFBT7LVB9ALCsYBRiXX 4FInCtUBZlVYGvACZlXZMwHLIsua8WMSPhLKBlNWIdZxOvCDHkUVDuNYxiPIGsZXD7Hax8QZGuNGPpFR 5URbJjTLQeFMO7BFGbTAQxNZUwik9YJJPaECKsDAv9MYOqYSKsXTHfKMlzNFAiFAL5MhA9MOMxDDZsSU 4FHyFqFTYzNDB9QydnBYRnXONsel8LPENyTNReUuJy WUPfKYWjRHUiFUdfSATeVQH0XEldOOQgIFUhSZ1FUvUkRAPtPDvjDPWzIZGfYXAwyz8WKWYpMBXlQFF2 EtDdJHGyKAZcVYouJDEaPPC8YNj6PIQjKUSnPO1RJaHrLEMgDhT3ExQeYSMjZYUdbh9WFCLsXZOfTCHb FZMgYDHaSSFnHLhrBEJaZTGtWfQ8JMShPRTcRT5MQy IaXLbrJWPLKbw5EKvkO4l3FXRwOM3HG8Ive3QzPicfMCPGKSplFY7shiQjLJKuPj4IE7mTYto7Xrc5YP RfZiY4LDKrJIC5TPLxUlE0HUZeZOdrYxIfSN6bEVjiIfs2RVWkLgUsNkB7CqT9TZE1LsnaO4XoQfBiAY W1NaDqUY4QUi3VHzI7WZB7xJAjUs2UKdN4XIGFBgXwAX8XNGh= ID Date Data Source [id number] 09/02/2020 05:02:00 PM [facility] Name Value Range Interpretation Code Description Data Fabiola rce(s) Supporting Document(s) Glucose, Fingerstick 354 mg/dl 70-110 Above high normal [facility] The above 1 analytes were performed by [facility] [id number] [place] [address]#: [id number],[facility],[place] [id number] ID Date Data Source [id number] 09/02/2020 12:26:34 PM EST [facility] Name Value Range Interpretation Code Description Data Fabiola rce(s) Supporting Document(s) H&P [facility] DOZYLs4mQlABCkIy23/GPUzjEKSlf3DmQTbpDXb0DCspZKPfG0TePVW7qR6xBMH3IFbHPqZsPaUeTyI2 lbm [file] ICAgICAgICAgICAgICAgICAgICAgICAgICAgICAgIC AgICAgICAgICAgICAgICAgICAgICAgICAgICAgICAgICAgICAgICAgICAgICAgICAgICAgICAgICAgIC NkYRPaAL2QILCvWVLxBAXaBQRnNLWiOMVbQKRuFAWjBMNoADXuHYXsYNEoGDKsDGQnDISbWGEmMEOxWW AgICAgICAgICAgICAgICAgICAgICAgICAgICAgICAg FSYwFJWzLZAfXYFoFXLwFL2KYOPkQFJaOKFfFZCfMOPpNYYcIGSnPHPjAILxJUNpNEFcMSOeZAYxLIEs WJAoICExWJUwGMZwHBDlTYKtRACrNIUaVTVdUDUhOSCxYDJhDKRsRMCqUFMpFMVnKEKlJMGhMABeSG2F ICAgICAgICAgICAgICAgICAgICAgICAgICAgICAgIC AgICAgICAgICAgICAgICAgICAgICAgICAgICAgICAgICAgICAgICAgICAgICAgICAgICAgICAgICAgIC OmFLDcYHXbYP8JWWRyQZQhPHThCYVlOGJtIOGoBUYmOEIrNZWoNPKrZAGmRZZtJMLtVEUpOFCtZXZaVC AgICAgICAgICAgICAgICAgICAgICAgICAgICAgICAg WUKsQAJiCWBvDRRvBTAeBOQaUG3PNRUbRQDyLCTpGDMbAHRsOMGmNUVlNNVwAGOyHPUyKPJjLOQaXNTi ICAgICAgICAgICAgICAgICAgICAgICAgICAgICAgICAgICAgICAgICAgICAgICAgICAgICAgICAgICAg YP9SYBVuXOJmUECfSGFbTJLcVMEkTQAsCICkKJVjFU AgICAgICAgICAgICAgICAgICAgICAgICAgICAgICAgICAgICAgICAgICAgICAgICAgICAgICAgICAgIC PcMNQaDDQhBIWkZH9JRIWvZQLoQAPmTOCcSYQkBAWgHRXvXEGeROQnESZgVDOaWPDwLCCfGSYsHTHlQS AgICAgICAgICAgICAgICAgICAgICAgICAgICAgICAg RDBpIGTuYIBePTLeNQZoLWNhYMWlOZ5EKYQvEYCaUYVoNTDhJJOzVCEgENKuAVZeVVHoTRMtGZShLZTr ICAgICAgICAgICAgICAgICAgICAgICAgICAgICAgICAgICAgICAgICAgICAgICAgICAgICAgICAgICAg OXVhJR1JQGClPTFtGRWxRYRyFJJtNBGaSMTqXYKpUR AgICAgICAgICAgICAgICAgICAgICAgICAgICAgICAgICAgICAgICAgICAgICAgICAgICAgICAgICAgIC RpENSkMXKmQFQfPRYaJR5WEA11wHFge0C1MFZuGA1mtxd/Ob7GBUcnyfNbeKYrYC1IMqCuHU6mpk3XCc RwKC3dbc2ZNJuFPdYhA4L2bUJiEPAvAEFEYfIrY98s BGgwYn60AFqhOODbDiUoXBg3Mf6UIdCrY0nqKQSyIbH4SPKtQySgEYarXI6Zk3JtvQGyQUe+Qk4KWD8g h7JjCCgbSqQuCV6ock7TOSbKJcSpQ9BfqjG5WZW6LXKsAj8XXGTiUJSxpRDzHXUzHMMATxPnP7KdzY41 IDENCj4+HDywnuUrYxjBLeO0JUQpg7LhUKw2PA9CFT EgSRq2vWIcTZOMCUO7NERfnDFrgZYGMLH3iY9pNDzjnlSjCE3HRCD7XUEaZp9rYCHcRNVvAwZcBKJTAQ 2HRZYdNQRseQYbAGVdOEVRJP3JESkzFZV3QboinfHsnLIsJLrfSC6XGOPaszVwUCjrRNKQMRk+Pg0KZW 5gy8JzBOooZKPbPO4mzo5KZQnTIkOtD3Q3bLEoV8S5 HNtaFi3IRUZwGNElGXBiBRSKYYkcCJ0MQQ1psdO6IH8HlCOwTYAeDWAvyUBeHHn8N73yrRRwMBmxYK9N ICA+Anais+Ul0YCUEuFHElJBKnPzDiXKDDOtLsM3HqR7ULy4YrQ1HyCO37hXudtaBrEBrdSR9AWC7qVXAc USPQKT0MlGRqxT7uvwClUzEdEOUEMnGgY28kpGNdMK JqCIG4QUTaWp0CATYiT0TpzwFbfTvqvnGfZWPoKYBRQS6EANavgkGjrFPnrLtpOF90uRvuLS0BFg6ZTj TsOG0aqv2BhZPkQw4XYZAmLJ2XLHOaIRPdDFFfKAO9XWMgGcWhCRhtQHZdUZCsAVR6DKMpRYIwHQ9QYz XoXKDvUYrlIDnsSMBiZIIork1BOBXjGUTxWIX2KqRb WCAeOAQgCKbhEDRhAVYcKMD9WVUiCONvNT7TObViTOGpYDNqBvFgPTSlUHUpib5TPOVtJTLeNpP1QDYc IYXtHZSrNIlhNJToZVF0CpO0DWRoAYTcZW5XLmOiMLMwDIC9QxkdCHDwXROcqb8OGDHuHCBqHEUeZyKu ZTHxCEEwHAzmYCJgARN0FVemCUYrXFWxTN5AFwEpEO XtYOG8JhghWSRuAWXodx9SXLYvQBYkACg6VRPbFGShWKDjYSiuCJNwXYS9MYG4KVTbHIWyHD2XQqTwZL ZbJNqmIRWaRXBsQXJthe5ARFCyKDEkIzB7PBVoWLYrSZNzOSfbPHKvHIG8VoR6NGZlOWUmHU3BLrWaZY DsPErdHFKgKQJkSNXgqo4OCXFiEYYnLFMsAhDePRPt SDKyZGnsDHEqASZ9IxT3ZQDnLKScYO3NWqNcGUkqQDDQSii7XUspF3k4GYIcON3UC0Lkw8IfZYevGIPA CXjwFF7pgnRxIVOeJz7AM8iALzgyUlAcPKD8JEM3TIHkMAVwGdNnJSA1Cpk5H3R5UMCbZb8nGEKrSUTz RHVqYGvrEmK2GCHuFEVxMCyoLZe3MMT4TxUdBhVs TL6CMx4DPcG9RNE2kIJvWp7HOANbGj5VNVRJA0MASd== ID Date Data Source [id number] 09/02/2020 11:54:00 AM [facility] Name Value Range Interpretation Code Description Data Fabiola rce(s) Supporting Document(s) Glucose, Fingerstick 411 mg/dl 70-110 Above high normal [facility] The above 1 analytes were performed by [facility] [id number] [place] [address], ,[place] [id number] ID Date Data Source [id number] 09/02/2020 11:52:00 AM [facility] Name Value Range Interpretation Code Description Data Fabiola rce(s) Supporting Document(s) Glucose, Fingerstick 411 mg/dl 70-110 Above high normal [facility] The above 1 analytes were performed by [facility] [id number] [facility], ,[place] [id number] ID Date Data Source [id number] 09/02/2020 09:41:46 AM EST [facility] Name Value Range Interpretation Code Description Data Fabiola rce(s) Supporting Document(s) Nursing Note [facility] CQOZGj5qOpTAOnCd65/EQPulYJFol8AnWJmqDZl6ZGghEQPhJ8KzTDU3wR4fKLU9RAuALeNlWxLrIzK8 lbm [file] MXi6ZwSpNL0LVq6JLmO6GAZ6gEEuMb1XNcT6ZWYHOfCtKR7QEEg= ID Date Data Source [id number] 09/02/2020 08:43:59 AM EST [facility] Name Value Range Interpretation Code Description Data Fabiola rce(s) Supporting Document(s) Nursing Note [facility] PAYJTn4pLeDHPsHs85/GZJqeSOGfo6UcKUxgSMe0ZDhuDZNhX2BuOSC5dB4dORY1HYkXGkMgYkMfHtZ8 lbm [file] AgICAgICAgICAgICAgICAgICAgICAgICAgICAgICAg ICAgICAgICAgICAgICAgICAgICAgICAgICAgICAgICAgICAgICAgICAgICAgICAgICAgICAgDQogICAg ICAgICAgICAgICAgICAgICAgICAgICAgICAgICAgICAgICAgICAgICAgICAgICAgICAgICAgICAgICAg ICAgICAgICAgICAgICAgICAgICAgICAgICAgICAgIC AgICAgDQogICAgICAgICAgICAgICAgICAgICAgICAgICAgICAgICAgICAgICAgICAgICAgICAgICAgIC AgICAgICAgICAgICAgICAgICAgICAgICAgICAgICAgICAgICAgICAgICAgICAgDQogICAgICAgICAgIC AgICAgICAgICAgICAgICAgICAgICAgICAgICAgICAg ICAgICAgICAgICAgICAgICAgICAgICAgICAgICAgICAgICAgICAgICAgICAgICAgICAgICAgICAgDQog ICAgICAgICAgICAgICAgICAgICAgICAgICAgICAgICAgICAgICAgICAgICAgICAgICAgICAgICAgICAg ICAgICAgICAgICAgICAgICAgICAgICAgICAgICAgIC AgICAgICAgDQogICAgICAgICAgICAgICAgICAgICAgICAgICAgICAgICAgICAgICAgICAgICAgICAgIC AgICAgICAgICAgICAgICAgICAgICAgICAgICAgICAgICAgICAgICAgICAgICAgICAgDQogICAgICAgIC AgICAgICAgICAgICAgICAgICAgICAgICAgICAgICAg ICAgICAgICAgICAgICAgICAgICAgICAgICAgICAgICAgICAgICAgICAgICAgICAgICAgICAgICAgICAg DQogICAgICAgICAgICAgICAgICAgICAgICAgICAgICAgICAgICAgICAgICAgICAgICAgICAgICAgICAg ICAgICAgICAgICAgICAgICAgICAgICAgICAgICAgIC AgICAgICAgICAgDQogICAgICAgICAgICAgICAgICAgICAgICAgICAgICAgICAgICAgICAgICAgICAgIC AgICAgICAgICAgICAgICAgICAgICAgICAgICAgICAgICAgICAgICAgICAgICAgICAgICAgDQogICAgIC AgICAgICAgICAgICAgICAgICAgICAgICAgICAgICAg ICAgICAgICAgICAgICAgICAgICAgICAgICAgICAgICAgICAgICAgICAgICAgICAgICAgICAgICAgICAg UPWeZQy4W8dpRTLaULNwLC0cHNl9Xn2+IOfOZaTbVUT0utEsoW5XZL8kl9SaBKdxPFPql7MbSNy6ZT2B SBAmHRfeWW3LPDavch0PATEqKKLadCDNi5tcQwNmMP B4BEAlKkzeRH3EQRSkG2jobcUcUSVuHJNYWX7MTsOuL4BvvH90OLLLAr8+DQplbmRvYmoNCjIyIDAgb2 DtJYn0TD8KOVRkMbkcz8AvRqHzCKAKJNrdJL6HSQJ9OUQwFGNyRs6DYDVqF033emNbIL1HHm7QGmSrHD 0med8GKlIwTJXxWrjZTsa2MMfkWE3LqQHwWBeIvXYj hT8qFT3xoLFhLysfH8ybaPC1q7JwUJHuAXDrjkNiKU1tNLJAAEF8YHZnTw8dDNHaZTM6LdYcPYQDSA9I RCWrNGTsyFMoIJLvDFJWNM4TRKyaAMV2XvqolmPgqMHoLGttXE0INZOrepZgMcWdURNFXKw+Mi6ITQ2h b4QqKXctTSMeBF5lro9CYVcEOsYcD8I0hGHaP0Y8CV sjNx8HAZZzEXMwWgNsWNNDPLtaDU8AAX4egxT0EL6MuVDfUSDtMTDczKHiDJy3R00niZGtWAusEG4VFM A+Anais+Ak6BRDRuBADzCYCySoZnFSYKPzGkS0DfG3WXl1RuN5FlWQ36nEharhLdCFloEG1BCM3cWDRfOI EDXZ0YjRBvqZ6ejgYjUgRmNQXZAnHhN45qdBBlLJJc MIGbNGLlCe2QLSEeW5LeokRhfPubtsDvGYTdJPXYLI6JLAcbobBkpYJffMioZA27yAzoJF3UBv0WIeWh FC7kak1ZtTYtCa7UQSReLT3NTDQhIHRoOFQvLQR9HQAiKjYuOTigRITsOURyXDD3IRGaUWFfEG8NBnYm VRMkLSb3LeIzNQOaPUEahy5HVVRpGBQnPYEgDUJfKG DlJZWmTNpgKMWgTTOaTGK1SHUvSLMqHM8NHkYcWWLiDPScYVZyITThGNQgnv4GXIMjHNJfBXZcWTSsLV SyBLHyBWerPCHuKRQaWsT5VZJbBLSnXN6ZLbSuEOCeFNJ2OikxNCZkPNVqlb7ROTKoJJVkMge2XVViKB FkXQGjPHtuWZXrJMNbJjTmYUZaJMTdJZ7PVcGxWIXc KHU2UJGzUXKaNLPhec2KFLCyVWMkUGZ6FpHqSEUjTRDgCKiiCOQnXZF4VXHfQOQvLBRnTT9XFyGhOHJp HHX5RLdrPROkREHseb6ZFBDkQXZvFih0XqPpQBSyJWZmPXmlPWJtGZW0VzM6RNSkRHWeIE2PCvIyNGTi JTdoVNJxIRMlQTJwlw7JIHYzBNSpNIY5NBYlLXCsRV KpFEbcBFFrWQB3LUn1AQEdZNVeDD2INkBhLCNzLEd7QJChXWAjAVGgdu5AOVOuVEFxSPO6NDYtRQWsVE QaTPobVIYcXAVwGAA6RWEhQDHuRX9EBrSnPBCmHdI2KwejTFSoVNDudc7VEIJlQFSoGVucNNZsISTxZC PxEMh9wiGsmEDlZZo9ES7QB3LcriNkShIHXq7Pd840 EEU5LAErYx7WJ8kfUd6wXOZkMOAWYv2ERCj5W8TgDjV6IlMdFVVmHCVdSJPrYkKuJUEdLPYwKNPtUfm+ UVkrKZGtQUmfI4RfHDO8RPNcIyM1D1ZvPPAeMiX2WVJdTT1dCJKIYh5+DQpzdGFydHhyZWYNCjIwOTcz OYfuQSGOAr0S ID Date Data Source [id number] 09/02/2020 08:43:39 AM EST [facility] Name Value Range Interpretation Code Description Data Fabiola rce(s) Supporting Document(s) Nursing Note [facility] LFSDNp2aMlFXTmPk48/IINzoZBVou2MoVLrtIQv5OCreNJXhM0JwAEK1uX5dLTH2AKgRZyTcOeNbCdH0 lbm RgVzqUIvYnAXGwPyhVYtQfLNvrTjntnZQbHE2NpKS3TRHxG04wBHScUCGaW0OoOHY5Xwi+Qh8ZOZYunU WzLA1WIdkY5Zuon+O48b1A/xKnrQOpuV7L8feUxhXN1Ye4HzhgBdpnUYsjKQcandjrirY33por1v8hLJ LWZ8ZqfAqdd2Ca++ONLC3NA2SmV4FI1z/+aZ6I89Ry Vv7f/HnZyi4X5O5/YO0wV+yGtX+lKdTG4CesmR/Qf7r8/gvHkRsKH/5pbqWFy52IflJ5UoJvQ3blUXFt 2mwqofoKd28B4lGSigregS2upS91iiG9dVNmzT+BKRmKiNyuWt9dr2x/Jjx6sFkW0oyMlvbjHumtQP0a w8wGPDEYstTHETraIfJXbjFbOAqlIBQW2lWBCEBpq/ [file] ICAgICAgICAgICAgICAgICAgICAgICAgICAgICAgICAgICAgICAgICAgICAgICAgICAgICAgICAgICAg ICAgICAgICAgICAgICAgICAgICAgICAgICAgICAgICAgDQogICAgICAgICAgICAgICAgICAgICAgICAg ICAgICAgICAgICAgICAgICAgICAgICAgICAgICAgIC AgICAgICAgICAgICAgICAgICAgICAgICAgICAgICAgICAgICAgICAgICAgDQogICAgICAgICAgICAgIC AgICAgICAgICAgICAgICAgICAgICAgICAgICAgICAgICAgICAgICAgICAgICAgICAgICAgICAgICAgIC AgICAgICAgICAgICAgICAgICAgICAgICAgDQogICAg ICAgICAgICAgICAgICAgICAgICAgICAgICAgICAgICAgICAgICAgICAgICAgICAgICAgICAgICAgICAg ICAgICAgICAgICAgICAgICAgICAgICAgICAgICAgICAgICAgDQogICAgICAgICAgICAgICAgICAgICAg ICAgICAgICAgICAgICAgICAgICAgICAgICAgICAgIC AgICAgICAgICAgICAgICAgICAgICAgICAgICAgICAgICAgICAgICAgICAgICAgDQogICAgICAgICAgIC AgICAgICAgICAgICAgICAgICAgICAgICAgICAgICAgICAgICAgICAgICAgICAgICAgICAgICAgICAgIC AgICAgICAgICAgICAgICAgICAgICAgICAgICAgDQog ICAgICAgICAgICAgICAgICAgICAgICAgICAgICAgICAgICAgICAgICAgICAgICAgICAgICAgICAgICAg ICAgICAgICAgICAgICAgICAgICAgICAgICAgICAgICAgICAgICAgDQogICAgICAgICAgICAgICAgICAg ICAgICAgICAgICAgICAgICAgICAgICAgICAgICAgIC AgICAgICAgICAgICAgICAgICAgICAgICAgICAgICAgICAgICAgICAgICAgICAgICAgDQogICAgICAgIC AgICAgICAgICAgICAgICAgICAgICAgICAgICAgICAgICAgICAgICAgICAgICAgICAgICAgICAgICAgIC AgICAgICAgICAgICAgICAgICAgICAgICAgICAgICAg DQogICAgICAgICAgICAgICAgICAgICAgICAgICAgICAgICAgICAgICAgICAgICAgICAgICAgICAgICAg CYXgNWSkVHYvIKSqLAWsVLOyNUTrKOGpWRIsFVZkSNCwSPPpLNVvMAWhBHd2S6llHPPjABPsGH1gEOz8 Jz8+WVcAIsTtGVO9dpLokT9ZVU3hk0PeAGjoGRFjw3 FzWRv9AX2LJPQsXRhtES1YOYiqji2WXFZlGCKlxTQXr3wlGpYvZEH4URQzIxlpGL8NDLPoM1ptheJkVX CjQLYRCLhgMUACPZrxWJXOHW7RDcMoE0RraN87LFTXSs5+IAonkwEdNioIDnR3VZYsg1XfHJs5JV7SQS MmVbdmg4EpIcRuYSUMZSqiVL8RPII8LOT0TWOwPm2U XYWbQ922uwDsZM5BRp2YMsOoIC6fkb6JOjDdADQqVfdBKms7CHxzTE9QiGVrNGfViYQhnY7zFT4jvYJt TxtkU2iphBP9o8MnLZKiNOIiorTvHY8dXGOXIJA6BSSgPr9tUJLuGKO7RdRlXQKCDM2XCZYyKJSahIIv ZULxDDWDKK6GWPbiJXJ9YwcdehLbtLFsUWpuRK3QPC JlbnQgMzQgMCBSDQo+Ay8EHF4gf5NmWZciQaLjFM5yzu8JBQdGSbOtH7K1tUNuE3F1PHtpIz9DZIQgXM DdKpUpVFRFWSlwUE0ENQ6jfpC6NV6BkUBkLCPhKJOlwBHrCSe1O87hmIJjUKvxPU6YFYG+Anais+Pg0KIC UwZRLcMZEgLvWwTBZUAyTxF9OuS4MJq5RhZ0ZiUV19 lLdaiaZnARpwSK4GPC5iEVSiGEWMVO1JqFCuwW5cgyKuXDRnAVCVPkHcT86tzSZtNDYfCTSbIDXgYr2C EWWrK4KeqdPdzDplvqUoWSEySNQNWI2PHPsukqQhhHWkdWliPN39eXszHN9WMk1MAzViLB5qpq5XaUAy Yv3NBAGtJi9NIPPzDAYhBUCaGAD7XNEaTqZtBHwaZF IzIWYtWHI1GNLgFOGmEL7TJvQzIWAzNCL5HFBvVJFvHYDyuj0EPCXfTBT4IGDeTeOhBIUvCJYlHNagPD YnDFEaXTU1LRDlYYImWR2GLyHlGDVaDVE6KIGhWKHjYKYsei6TQYTgDNYyPvSkSRBtDWNlHIGgWVekTT NlDOT7LjD5XZVzBKXgRU9LUuSgRXEhKAU6OXLeQDMr STSwza7NVXVcKKMwBrW6BCDfZADfIKPjPClaYGDkEZJ8EbBqONSgONAaEK4ZJnUdOGPeFSd8MNOgQFCy DMGbet4GLUDiEOJeVpppFgBkZYGwKSEgTIjiQWVfBOB1CMIbLMPcNBMtCQ9OXlVpYMOkTAy7PqUbASJi MOKezm8XORPcPSDjYHI9KIKxYGUpPZUyAEpnODWxSE H3PzUsBMHlQCEaKC7TDoRoKQJsHbO8PXFiPBVvXCOsof7VYWEiJWSuHvIyDkQoIJCtXAZwGEscIJOoBX WpZoG0DPDvNTHdGD6RVsUzKYMdJzJ1OEAmIJKaIWBfrd7TDJPxPVVdFnZxSWZiLWUdBUIbUKklILUfBU TwVOHxUVNsREAgFC8DPiVpMZTxMbE9QoikSFSnVCKp us5IRHPhGKQtHgquHNAfLABbPWApIIcrACOxNZZ5XPS2VNQfLFEaWD5JKhMpJBXmVlMnIhNxQNHtOVFp hr9WKSSyBNJlFVQwOdIoXQFgQLEhXOrmUARqUVE7FaH5YRLrWZOzTR7MBiTkESXuPLCaJKhlRGBySNBk kb3WCNLcQLC3HRC8QlLyNRTmTNUlLThyLOZmORM5Fy ziNOSoQPFyTQ8IZlKsKWRuGIW4QmKzQSRjBRZzjq8TJBIyBGE6Cvw3AcZrRAYmRDStGZdvAYSuDDY5ZU MrDKUzLVNrEI0DRbUlWADmJQd3VIRkFXYhPVWdot0SDNBqHLK7EVL6HkQoUMViLSTfQCz6buDvvEUqGB s3FS3ZB3LwdbVhOdoUDb5Uf714SUH4ORIbTd4MX7mw Mi5eWOWmPWCOVu9ITPb0VrJ9LHF1BMV1DeLfFTNkZZGiEExcUvtpBXNvUrbkIFY+LHvpKij2RAvqRyY7 S6N3XALlZFMmDIM3M7OvMdVsL3AoDr2dPHGNCq1+BTyziVFllCboLZTJCdE0AQUwQNyfTCLIGk4W ID Date Data Source [id number] 09/02/2020 08:15:22 AM EST [facility] Name Value Range Interpretation Code Description Data Fabiola rce(s) Supporting Document(s) Care Plan [facility] HKFUZc7jMfMXNxUe74/PHNfgTOFeu4ReUCmxTLv4GYdjJJSgC8IyOKC4yP3mOTS2CGtYHcRtQlJpXyN9 lbm [file] O0L4OPCeOgZ1HCDtBWZ0IAr+DW8vRWj+Vz4Xd3EbdcQ7qsIvHKuxGLobQr3EKHJAP0FLBi== ID Date Data Source [id number] 09/02/2020 07:52:00 AM EST [facility] Name Value Range Interpretation Code Description Data Fabiola rce(s) Supporting Document(s) Glucose, Fingerstick 211 mg/dl 70-110 Above high normal [facility] The above 1 analytes were performed by [facility] [address]#: [id number],[place] [address] ID Date Data Source [id number] 09/02/2020 06:20:13 AM [facility] Name Value Range Interpretation Code Description Data Fabiola rce(s) Supporting Document(s) ED Provider Notes [facility] XDXRKw0zHjLYIqIn22/EKHidJFPcx4QlCDniTXe3LNhjOLUuT5MrJYD4mT7dDLJ9AAuSLsGpDgQwVbX4 lbm [file] UuB1DYI0dTIqHe0JXsZlUWOITqWgOR7SUWo= ID Date Data Source [id number] 09/02/2020 06:05:00 AM [facility] Name Value Range Interpretation Code Description Data Fabiola rce(s) Supporting Document(s) Glucose, Fingerstick 205 mg/dl 70-110 Above high normal [facility] The above 1 analytes were performed by [facility] [address] [place] [address], ,[place] [address] ID Date Data Source [id number] 09/02/2020 12:35:00 AM EST [facility] Name Value Range Interpretation Code Description Data Fabiola rce(s) Supporting Document(s) Glucose, Fingerstick 222 mg/dl 70-110 Above high normal [facility] The above 1 analytes were performed by [facility] [id number] [place] [address], ,[place] [address] ID Date Data Source [id number] 09/01/2020 11:18:48 PM EST [facility] Name Value Range Interpretation Code Description Data Fabiola rce(s) Supporting Document(s) ED Triage Notes [facility] FTTOLi2uJdOZDfXl39/SGPjzMKVtz8WbTSteQVn0HXaeXTNyE6FaJGK3pU3oFYS7KHbPYlHsDxUeImB8 lbm [file] AgICAgICAgICAgICAgICAgICAgICAgICAgICAgICAg ICAgICAgICAgICAgICAgICAgICAgICAgICAgDQogICAgICAgICAgICAgICAgICAgICAgICAgICAgICAg ICAgICAgICAgICAgICAgICAgICAgICAgICAgICAgICAgICAgICAgICAgICAgICAgICAgICAgICAgICAg ICAgICAgICAgDQogICAgICAgICAgICAgICAgICAgIC AgICAgICAgICAgICAgICAgICAgICAgICAgICAgICAgICAgICAgICAgICAgICAgICAgICAgICAgICAgIC AgICAgICAgICAgICAgICAgICAgDQogICAgICAgICAgICAgICAgICAgICAgICAgICAgICAgICAgICAgIC AgICAgICAgICAgICAgICAgICAgICAgICAgICAgICAg ICAgICAgICAgICAgICAgICAgICAgICAgICAgICAgDQogICAgICAgICAgICAgICAgICAgICAgICAgICAg ICAgICAgICAgICAgICAgICAgICAgICAgICAgICAgICAgICAgICAgICAgICAgICAgICAgICAgICAgICAg ICAgICAgICAgICAgDQogICAgICAgICAgICAgICAgIC AgICAgICAgICAgICAgICAgICAgICAgICAgICAgICAgICAgICAgICAgICAgICAgICAgICAgICAgICAgIC AgICAgICAgICAgICAgICAgICAgICAgDQogICAgICAgICAgICAgICAgICAgICAgICAgICAgICAgICAgIC AgICAgICAgICAgICAgICAgICAgICAgICAgICAgICAg ICAgICAgICAgICAgICAgICAgICAgICAgICAgICAgICAgDQogICAgICAgICAgICAgICAgICAgICAgICAg ICAgICAgICAgICAgICAgICAgICAgICAgICAgICAgICAgICAgICAgICAgICAgICAgICAgICAgICAgICAg ICAgICAgICAgICAgICAgDQogICAgICAgICAgICAgIC AgICAgICAgICAgICAgICAgICAgICAgICAgICAgICAgICAgICAgICAgICAgICAgICAgICAgICAgICAgIC AgICAgICAgICAgICAgICAgICAgICAgICAgDQogICAgICAgICAgICAgICAgICAgICAgICAgICAgICAgIC AgICAgICAgICAgICAgICAgICAgICAgICAgICAgICAg MJXxPFBzBQQuLZJfRKRuYFCtQPJcEMClWUCwVFJrXDKpKOVaAOa7G0ldOUEdPHMnUV5hETt8Ey1+DQoN QjOlCLH7fkMmwL4PHH9yi6EnYHkpZWAdd3HiXXr3XS8FBAQnAZfzFV0IKTshnl4PBFTlSVGuyNLAu7ox XqSzKVX0KUAtMoolML0VVTNtD9ywrhXpHVItGFZLIU 8QRgWaX1TbsX42DOQTVu3+BLnvauLwSonWVsA4IITho7NdSXp6FP7SPOFeTagnq5RlDBoqEXBXBNbkBV 0VSOO7IYV1JGXwTm2NSVHaB985zyQtAJ9LRw2NEtSwYR8soj7EOEifMUXmOvdYFaq1DCqgFQ9HbLYrJK jFECWCzakkU4YqTt85QZMmZixoWdImhlMlZ8CwoLPw AEBKCPH2RYTnHg7bCZKoWYBoLaL2IVCRZJ6PFJYjDRBvcGVjXUMmNGYHVV6KDTykNNC0SvpqqhFqhYWk DQwtAS1CDVMnmuJkVJhyMPNKTUd+Oo5PDE8ky6QcIHaaDQMeXP9kzv9WQDtSOnWeK8V5vZNdQ9I9VObf Ql5PHWSvSELeRYStLBPAJHuxOJ5SLF9sunG7TG3FvQ FnZTWsHKGhyDHbYAf7J42xsWKjDJvqOZ6YRGQ+Aanis+Ei2NXAItSYYhUFOlFvYsHTSREbPfO3XvA5UDz9 NdQ3RlEO92aBrpjkObVHflEV1WRU2wDSKtAZPZBM4ZhAIohM4nazAoXdWyBXOJHkAeI94mkOZgFHHrVQ E0RDWfWk3HXKToH4MjbkYtoYmhvaJhQAMlWJQQYH3P NGzjavVzpYLatKoxRR38wOvmLM2NSt2ZCyLgBX1xzm6YgZJiRp9UHIHdVK3LXAMsBWBhNUYpIWS5CBPe LiZqUEtmXINwAGFsCCX0PQUqYBXdRQ4NDsFoLWTrGTF0PGNqLDUlFSNtmp4PTTBuMLTxAgG8ReUsHXSz SUEqLVufEUAjAQCoPPV9FGHtBXWfGA3JGyTdVMYtGL KgWcOhDCRfIRUicw6UXUWoFPPgXUK8ZBQeDGRiUISiEErnULHhHLQiMBLvCBDqLTQuYW7EJfNaOFByWZ W8XhPvZSCeDBRtfr2YEMCwFDJnTljlFEJzLWAoGXYcNOvbDYPcBELnHQF2QARqIZRyYA7GWgThADKuOD QgOyOgLZEpKBZinw2TKPDlYPIrISZ1CmVjWDGjPFWg JQhtQHNpTWB3EdX2TTWyXFVfLH1RXwKaCZWnVLQ1KXYfXNHfHTOqpn4XCXLqOJJvCNK9NHNwAPBzIDJk JKunRFYbXNK9GTSpGHUoAFTjKC0PCrBaKVFyCCz0TVFxTRHlWJUwbj7DUAIiLBTwSpZjESVpRVFxHUQu PWxrKTJdREE9WmZ0NAHbAUPzON0JIcRgUSmcWANGYq q0GTpbJ8p8WYBmZD9MK8Jfl0NcOEgkVUPLYWyuDI7wwwCfYMCqYh7HB0bUGiycUCKwQfsbVODyPPBcUd UhWPQbOti0HVtcSBJcE6GsUj1rMWEpGyR0INQwAoKcRCSiX7SmJfQ7FDu7R4W7DFSfVOJtJcVfHH2JUg 0BYsV1HYT7kMGgMh8GCommKR1XDCJIG7FKHa== ID Date Data Source [id number] 09/01/2020 06:11:00 PM EST [place] ([facility]) Name Value Range Interpretation Code Description Data Fabiola rce(s) Supporting Document(s) bedside glucose 139 mg/dL 70-105 Above high normal Bedside Gluco [facility] ([facility]) ID Date Data Source [id number] 09/01/2020 06:11:00 PM EST [facility] ([facility]) Name Value Range Interpretation Code Description Data Fabiola rce(s) Supporting Document(s) bedside glucose 139 mg/dL 70-105 Above high normal Bedside Gluco [facility] ([facility]) ID Date Data Source [id number] 09/01/2020 06:11:00 PM EST [facility] ([facility]) Name Value Range Interpretation Code Description Data Fabiola rce(s) Supporting Document(s) bedside glucose 139 mg/dL 70-105 Above high normal Bedside Gluco se [place] ([facility]) ID Date Data Source [id number] 09/01/2020 02:35:00 PM EST [facility] Name Value Range Interpretation Code Description Data Fabiola rce(s) Supporting Document(s) SARS coronavirus 2 RNA [Presence] in Res piratory specimen by WILEY with probe detection NEGATIVE [facility] This lab was ordered by [facility] a nd reported by [facility]. ID Date Data Source [id number] 06/13/2020 01:30:00 PM EST [facility] ([facility]) Name Value Range Interpretation Code Description Data Fabiola rce(s) Supporting Document(s) summary final . Summary [facility] ([facility]) ID Date Data Source [id number] 06/13/2020 01:30:00 PM EST [facility] ([facility]) Name Value Range Interpretation Code Description Data Fabiola rce(s) Supporting Document(s) Hemoglobin A1c/Hemoglobin.total in Blood 9.7 % Hemoglobin a1C [facility] ([facility]) estimated average glucose 232 mg/dL 60-110 Above high norm al Estimated Average Glucose [facility] ([facility]) ID Date Data Source [id number] 06/13/2020 01:30:00 PM EST [facility] ([facility]) Name Value Range Interpretation Code Description Data Fabiola rce(s) Supporting Document(s) glucose, fasting 142 mg/dL 70-100 Above high normal Glucose, Fas ting [facility] ([facility]) blood urea nitrogen 15 mg/dL 7-18 Blood Urea Nitro gen [facility] ([facility]) glomerular filtration rate > 60.0 >56 [place] r Filtration Rate [facility] ([facility]) creatinine for GFR 1.02 mg/dL 0.70-1.30 Creatinine for GF R [facility] ([facility]) potassium serum 3.6 mEq/L 3.5-5.1 Potassium Serum ATHE NA ([facility]) chloride level 108 mEq/L 98-107 Above high normal Chloride Level [facility] ([facility]) sodium level 143 mEq/L 136-145 Sodium Level [facility] ([facility]) anion gap 9 mEq/L 8-16 Anion Gap [facility] ([facility]) AST/SGOT 26 U/L 7-37 AST/SGOT [facility] ([facility]) carbon dioxide level 26 mEq/L 21-32 Carbon Dioxide Level [facility] ([facility]) calcium level 9.1 mg/dL 8.5-10.1 Calcium Level [facility] ( [facility]) alkaline phosphatase 65 U/L 45-117 Alkaline Phosph atase [facility] ([facility]) bilirubin,total 0.1 mg/dL 0.2-1.0 Below low normal Bilirubin,tota l [facility] ([facility]) ALT/SGPT 38 U/L 12-78 ALT/SGPT [facility] ([facility]) albumin/globulin ratio Albumin/globu liz Ratio [facility] ([facility]) total protein 7.2 gm/dL 6.4-8.2 Total Protein [facility] ( [facility]) albumin 3.5 gm/dL 3.2-5.2 Albumin [facility] ([facility]) ID Date Data Source [id number] 06/13/2020 01:30:00 PM EST [facility] ([facility]) Name Value Range Interpretation Code Description Data Fabiola rce(s) Supporting Document(s) summary final . Summary [place] ([facility]) ID Date Data Source [id number] 06/13/2020 01:30:00 PM EST [facility] ([facility]) Name Value Range Interpretation Code Description Data Fabiola rce(s) Supporting Document(s) Hemoglobin A1c/Hemoglobin.total in Blood 9.7 % Hemoglobin a1C [place] ([facility]) estimated average glucose 232 mg/dL 60-110 Above high norm al Estimated Average Glucose [place] ([facility]) ID Date Data Source [id number] 06/13/2020 01:30:00 PM EST [facility] ([facility]) Name Value Range Interpretation Code Description Data Fabiola rce(s) Supporting Document(s) glucose, fasting 142 mg/dL 70-100 Above high normal Glucose, Fas ting [facility] ([facility]) glomerular filtration rate > 60.0 >56 Glomerula r Filtration Rate [place] ([facility]) blood urea nitrogen 15 mg/dL 7-18 Blood Urea Nitro gen [facility] ([facility]) creatinine for GFR 1.02 mg/dL 0.70-1.30 Creatinine for GF R [facility] ([facility]) potassium serum 3.6 mEq/L 3.5-5.1 Potassium Serum [place] NA ([facility]) chloride level 108 mEq/L 98-107 Above high normal Chloride Level [facility] ([facility]) sodium level 143 mEq/L 136-145 Sodium Level [facility] ([facility]) anion gap 9 mEq/L 8-16 Anion Gap [facility] ([facility]) calcium level 9.1 mg/dL 8.5-10.1 Calcium Level [facility] ( [facility]) carbon dioxide level 26 mEq/L 21-32 Carbon Dioxide Level [facility] ([facility]) alkaline phosphatase 65 U/L 45-117 Alkaline Phosph atase [facility] ([facility]) AST/SGOT 26 U/L 7-37 AST/SGOT [facility] ([facility]) ALT/SGPT 38 U/L 12-78 ALT/SGPT [facility] ([facility]) bilirubin,total 0.1 mg/dL 0.2-1.0 Below low normal Bilirubin,tota l [facility] ([facility]) total protein 7.2 gm/dL 6.4-8.2 Total Protein [facility] ( [facility]) albumin 3.5 gm/dL 3.2-5.2 Albumin [facility] ([facility]) albumin/globulin ratio Albumin/globu liz Ratio [facility] ([facility]) ID Date Data Source [id number] 06/13/2020 01:30:00 PM EST [facility] ([facility]) Name Value Range Interpretation Code Description Data Fabiola rce(s) Supporting Document(s) summary final . Summary [facility] ([facility]) ID Date Data Source [id number] 06/13/2020 01:30:00 PM EST [facility] ([facility]) Name Value Range Interpretation Code Description Data Fabiola rce(s) Supporting Document(s) Hemoglobin A1c/Hemoglobin.total in Blood 9.7 % Hemoglobin a1C [facility] ([facility]) estimated average glucose 232 mg/dL 60-110 Above high norm al Estimated Average Glucose [facility] ([facility]) ID Date Data Source [id number] 06/13/2020 01:30:00 PM EST [facility] ([facility]) Name Value Range Interpretation Code Description Data Fabiola rce(s) Supporting Document(s) glucose, fasting 142 mg/dL 70-100 Above high normal Glucose, Fas ting [facility] ([facility]) blood urea nitrogen 15 mg/dL 7-18 Blood Urea Nitro gen [facility] ([facility]) creatinine for GFR 1.02 mg/dL 0.70-1.30 Creatinine for GF R [facility] ([facility]) glomerular filtration rate > 60.0 >56 Glomerula r Filtration Rate [facility] ([facility]) sodium level 143 mEq/L 136-145 Sodium Level [facility] ([facility]) potassium serum 3.6 mEq/L 3.5-5.1 Potassium Serum [facility] NA ([facility]) carbon dioxide level 26 mEq/L 21-32 Carbon Dioxide Level [facility] ([facility]) chloride level 108 mEq/L 98-107 Above high normal Chloride Level [facility] ([facility]) AST/SGOT 26 U/L 7-37 AST/SGOT [facility] ([facility]) anion gap 9 mEq/L 8-16 Anion Gap [facility] ([facility]) calcium level 9.1 mg/dL 8.5-10.1 Calcium Level [facility] ( [facility]) bilirubin,total 0.1 mg/dL 0.2-1.0 Below low normal Bilirubin,tota l [facility] ([facility]) alkaline phosphatase 65 U/L 45-117 Alkaline Phosph atase [facility] ([facility]) ALT/SGPT 38 U/L 12-78 ALT/SGPT [facility] ([facility]) albumin 3.5 gm/dL 3.2-5.2 Albumin [facility] ([facility]) total protein 7.2 gm/dL 6.4-8.2 Total Protein [facility] ( [facility]) albumin/globulin ratio Albumin/globu liz Ratio [facility] ([facility]) ID Date Data Source [id number] 06/13/2020 12:57:00 PM EST [facility] ([facility]) Name Value Range Interpretation Code Description Data Fabiola rce(s) Supporting Document(s) Blood Glucose: mg/dl Blood Glucose: mg/dl [facility] ([facility]) ID Date Data Source [id number] 06/13/2020 12:57:00 PM EST [facility] ([facility]) Name Value Range Interpretation Code Description Data Fabiola rce(s) Supporting Document(s) Blood Glucose: mg/dl Blood Glucose: mg/dl [facility] ([facility]) ID Date Data Source [id number] 06/13/2020 12:57:00 PM EST [facility] ([facility]) Name Value Range Interpretation Code Description Data Fabiola rce(s) Supporting Document(s) Blood Glucose: mg/dl Blood Glucose: mg/dl [place] ([facility]) ID Date Data Source [id number] 05/31/2020 08:40:00 AM EST [facility] ([facility]) Name Value Range Interpretation Code Description Data Fabiola rce(s) Supporting Document(s) amphetamines level urine negative negative Amphetamine s Level Urine [facility] ([facility]) benzodiazepines urine negative negative Benzodiazepine s Urine [facility] ([facility]) barbiturates urine negative negative Barbiturates Urin e [facility] ([facility]) methadone urine negative negative Methadone Urine [facility] ([facility]) cannabinoids urine negative negative Cannabinoids Urin e [facility] ([facility]) cocaine metabolite urine negative negative Cocaine Met abolite Urine [facility] ([facility]) opiates urine negative negative Opiates Urine [facility] ( [facility]) phencyclidine urine negative negative Phencyclidine Ur ine [facility] ([facility]) ID Date Data Source [id number] 05/31/2020 08:40:00 AM EST [place] ([facility]) Name Value Range Interpretation Code Description Data Fabiola rce(s) Supporting Document(s) amphetamines level urine negative negative Amphetamine s Level Urine [facility] ([facility]) cocaine metabolite urine negative negative Cocaine Met abolite Urine [facility] ([facility]) benzodiazepines urine negative negative Benzodiazepine s Urine [facility] ([facility]) barbiturates urine negative negative Barbiturates Urin e [facility] ([facility]) cannabinoids urine negative negative Cannabinoids Urin e [facility] ([facility]) phencyclidine urine negative negative Phencyclidine Ur ine [facility] ([facility]) methadone urine negative negative Methadone Urine [facility] ([facility]) opiates urine negative negative Opiates Urine [facility] ( [facility]) ID Date Data Source [id number] 05/31/2020 08:40:00 AM EST [facility] ([facility]) Name Value Range Interpretation Code Description Data Fabiola rce(s) Supporting Document(s) amphetamines level urine negative negative Amphetamine s Level Urine [facility] ([facility]) benzodiazepines urine negative negative Benzodiazepine s Urine [facility] ([facility]) cannabinoids urine negative negative Cannabinoids Urin e [facility] ([facility]) barbiturates urine negative negative Barbiturates Urin e [facility] ([facility]) opiates urine negative negative Opiates Urine [facility] ( [facility]) cocaine metabolite urine negative negative Cocaine Met abolite Urine [facility] ([facility]) phencyclidine urine negative negative Phencyclidine Ur ine [facility] ([facility]) methadone urine negative negative Methadone Urine [facility] NA ([facility]) ID Date Data Source [id number] 05/31/2020 08:40:00 AM EST [facility] ([facility]) Name Value Range Interpretation Code Description Data Fabiola rce(s) Supporting Document(s) amphetamines level urine negative negative Amphetamine s Level Urine [facility] ([facility]) cannabinoids urine negative negative Cannabinoids Urin e [facility] ([facility]) barbiturates urine negative negative Barbiturates Urin e [facility] ([facility]) benzodiazepines urine negative negative Benzodiazepine s Urine [facility] ([facility]) cocaine metabolite urine negative negative Cocaine Met abolite Urine [facility] ([facility]) phencyclidine urine negative negative Phencyclidine Ur ine [facility] ([facility]) opiates urine negative negative Opiates Urine [facility] ( [facility]) methadone urine negative negative Methadone Urine [facility] ([facility]) ID Date Data Source [id number] 05/31/2020 07:16:00 AM EST [facility] ([facility]) Name Value Range Interpretation Code Description Data Fabiola rce(s) Supporting Document(s) salicylate level 3.4 mg/dL 5.0-30.0 Below low normal Salicylate [place] [facility] ([facility]) ID Date Data Source [id number] 05/31/2020 07:16:00 AM EST [place] ([facility]) Name Value Range Interpretation Code Description Data Fabiola rce(s) Supporting Document(s) ethyl alcohol (ethanol) < 0.003 0.000-0.010 Ethyl Alcoh ol (Ethanol) [facility] ([facility]) ID Date Data Source [id number] 05/31/2020 07:16:00 AM EST [facility] ([facility]) Name Value Range Interpretation Code Description Data Fabiola rce(s) Supporting Document(s) CPK creatine phosphokinase 967 U/L 39-308 Above high nor mal CPK Creatine Phosphokinase [facility] ([facility]) ID Date Data Source [id number] 05/31/2020 07:16:00 AM EST [place] ([facility]) Name Value Range Interpretation Code Description Data Fabiola rce(s) Supporting Document(s) glucose, fasting 226 mg/dL 70-100 Above high normal Glucose, Fas ting [facility] ([facility]) blood urea nitrogen 23 mg/dL 7-18 Above high normal Blood Ure a Nitrogen [facility] ([facility]) potassium serum 4.2 mEq/L 3.5-5.1 Potassium Serum [facility] NA ([facility]) creatinine for GFR 1.10 mg/dL 0.70-1.30 Creatinine for GF R [facility] ([facility]) glomerular filtration rate > 60.0 >56 Glomerula r Filtration Rate [facility] ([facility]) sodium level 136 mEq/L 136-145 Sodium Level [facility] ([facility]) chloride level 101 mEq/L 98-107 Chloride Level [facility] ([facility]) carbon dioxide level 25 mEq/L 21-32 Carbon Dioxide Level [facility] ([facility]) anion gap 10 mEq/L 8-16 Anion Gap [facility] ([facility]) calcium level 9.7 mg/dL 8.5-10.1 Calcium Level [facility] ( [facility]) ID Date Data Source [id number] 05/31/2020 07:16:00 AM EST [facility] ([facility]) Name Value Range Interpretation Code Description Data Fabiola rce(s) Supporting Document(s) AST/SGOT 25 U/L 7-37 AST/SGOT [facility] ([facility]) ALT/SGPT 20 U/L 12-78 ALT/SGPT [facility] ([facility]) alkaline phosphatase 62 U/L 45-117 Alkaline Phosph atase [facility] ([facility]) bilirubin,direct 0.2 mg/dL 0.0-0.2 Bilirubin,direct [place] ([facility]) total protein 8.4 gm/dL 6.4-8.2 Above high normal Total Protein A [place] ([facility]) bilirubin,total 0.6 mg/dL 0.2-1.0 Bilirubin,total [facility] ([facility]) albumin/globulin ratio Albumin/globu liz Ratio [facility] ([facility]) albumin 4.2 gm/dL 3.2-5.2 Albumin [facility] ([facility]) ID Date Data Source [id number] 05/31/2020 07:16:00 AM EST [facility] ([facility]) Name Value Range Interpretation Code Description Data Fabiola rce(s) Supporting Document(s) white blood count 10.0 10 4.0-10.0 White Blood Count [facility] ([facility]) red blood count 4.88 10 4.30-6.10 Red Blood Count [facility] ([facility]) hematocrit 43.5 % 42.0-52.0 Hematocrit [facility] ([facility]) mean corpuscular volume 89.1 fL 80.0-96.0 Mean Corpusc ular Volume [facility] ([facility]) hemoglobin 14.2 g/dL 13.5-17.5 Hemoglobin [facility] ([facility]) red cell distribution width 12.8 % 11.5-14.5 Red Cell Distribution Width [facility] ([facility]) platelet count, automated 235 10 150-450 Platelet C ount, Automated [facility] ([facility]) mean corpuscular HGB conc 32.6 g/dL 32.0-36.5 Mean Corpu scular HGB Conc [facility] ([facility]) mean corpuscular hemoglobin 29.1 pg 27.0-33.0 Mean Cor puscular Hemoglobin [facility] ([facility]) mono % 7.4 % 0.0-5.0 Above high normal [place] % [facility] ([facility]) lymph % 18.0 % 24.0-44.0 Below low normal Lymph % [facility] ( [facility]) neutrophils % 73.6 % 36.0-66.0 Above high normal Neutrophils % A [place] ([facility]) immature granulocyte % 0.3 % 0-3.0 Immature Gran ulocyte % [facility] ([facility]) nucleated red blood cell % 0.0 % 0-0 Nucleated Red Blood Cell % [facility] ([facility]) baso % 0.4 % 0.0-1.0 Baso % [facility] ([facility]) eos % 0.3 % 0.0-3.0 Eos % [facility] ([facility]) neutrophils # 7.4 10 1.5-8.5 Neutrophils # [place] ( [facility]) lymph # 1.8 10 1.5-5.0 Lymph # [facility] ([facility]) mono # 0.7 10 0.0-0.8 [place] # [facility] ([facility]) eos # 0.0 10 0.0-0.5 Eos # [facility] ([facility]) baso # 0.0 10 0.0-0.2 Baso # [facility] ([facility]) ID Date Data Source [id number] 05/31/2020 07:16:00 AM EST [facility] ([facility]) Name Value Range Interpretation Code Description Data Fabiola rce(s) Supporting Document(s) thyroid stimulating hormone 0.474 uIU/mL 0.358-3.740 Thyroid Stimulating Hormone [place] ([facility]) ID Date Data Source [id number] 05/31/2020 07:16:00 AM EST [facility] ([facility]) Name Value Range Interpretation Code Description Data Fabiola rce(s) Supporting Document(s) acetaminophen level < 2.0 10.0-30.0 Below low normal Acetaminop hen Level [place] ([facility]) ID Date Data Source [id number] 05/31/2020 07:16:00 AM EST [facility] ([facility]) Name Value Range Interpretation Code Description Data Fabiola rce(s) Supporting Document(s) salicylate level 3.4 mg/dL 5.0-30.0 Below low normal Salicylate [place] [facility] ([facility]) ID Date Data Source [id number] 05/31/2020 07:16:00 AM EST [facility] ([facility]) Name Value Range Interpretation Code Description Data Fabiola rce(s) Supporting Document(s) ethyl alcohol (ethanol) < 0.003 0.000-0.010 Ethyl Alcoh ol (Ethanol) [facility] ([facility]) ID Date Data Source [id number] 05/31/2020 07:16:00 AM EST [facility] ([facility]) Name Value Range Interpretation Code Description Data Fabiola rce(s) Supporting Document(s) CPK creatine phosphokinase 967 U/L 39-308 Above high nor mal CPK Creatine Phosphokinase [facility] ([facility]) ID Date Data Source [id number] 05/31/2020 07:16:00 AM EST [facility] ([facility]) Name Value Range Interpretation Code Description Data Fabiola rce(s) Supporting Document(s) glucose, fasting 226 mg/dL 70-100 Above high normal Glucose, Fas ting [facility] ([facility]) creatinine for GFR 1.10 mg/dL 0.70-1.30 Creatinine for GF R [facility] ([facility]) glomerular filtration rate > 60.0 >56 Glomerula r Filtration Rate [facility] ([facility]) sodium level 136 mEq/L 136-145 Sodium Level [facility] ([facility]) blood urea nitrogen 23 mg/dL 7-18 Above high normal Blood Ure a Nitrogen [facility] ([facility]) carbon dioxide level 25 mEq/L 21-32 Carbon Dioxide Level [facility] ([facility]) anion gap 10 mEq/L 8-16 Anion Gap [facility] ([facility]) potassium serum 4.2 mEq/L 3.5-5.1 Potassium Serum [facility] ([facility]) chloride level 101 mEq/L 98-107 Chloride Level [facility] ([facility]) calcium level 9.7 mg/dL 8.5-10.1 Calcium Level [facility] ( [facility]) ID Date Data Source [id number] 05/31/2020 07:16:00 AM EST [facility] ([facility]) Name Value Range Interpretation Code Description Data Fabiola rce(s) Supporting Document(s) AST/SGOT 25 U/L 7-37 AST/SGOT [place] ([facility]) alkaline phosphatase 62 U/L 45-117 Alkaline Phosph atase [facility] ([facility]) bilirubin,total 0.6 mg/dL 0.2-1.0 Bilirubin,total [facility] [place] ([facility]) bilirubin,direct 0.2 mg/dL 0.0-0.2 Bilirubin,direct [place] ([facility]) ALT/SGPT 20 U/L 12-78 ALT/SGPT [facility] ([facility]) albumin 4.2 gm/dL 3.2-5.2 Albumin [facility] ([facility]) total protein 8.4 gm/dL 6.4-8.2 Above high normal Total Protein A [place] ([facility]) albumin/globulin ratio Albumin/globu liz Ratio [facility] ([facility]) ID Date Data Source [id number] 05/31/2020 07:16:00 AM EST [facility] ([facility]) Name Value Range Interpretation Code Description Data Fabiola rce(s) Supporting Document(s) red blood count 4.88 10 4.30-6.10 Red Blood Count [facility] ([facility]) white blood count 10.0 10 4.0-10.0 White Blood Count [facility] ([facility]) hemoglobin 14.2 g/dL 13.5-17.5 Hemoglobin [facility] ([facility]) hematocrit 43.5 % 42.0-52.0 Hematocrit [facility] ([facility]) mean corpuscular volume 89.1 fL 80.0-96.0 Mean Corpusc ular Volume [facility] ([facility]) red cell distribution width 12.8 % 11.5-14.5 Red Cell Distribution Width [facility] ([facility]) platelet count, automated 235 10 150-450 Platelet C ount, Automated [facility] ([facility]) mean corpuscular hemoglobin 29.1 pg 27.0-33.0 Mean Cor puscular Hemoglobin [facility] ([facility]) mean corpuscular HGB conc 32.6 g/dL 32.0-36.5 Mean Corpu scular HGB Conc [facility] ([facility]) neutrophils % 73.6 % 36.0-66.0 Above high normal Neutrophils % A [place] ([facility]) lymph % 18.0 % 24.0-44.0 Below low normal Lymph % [facility] ( [facility]) mono % 7.4 % 0.0-5.0 Above high normal [place] % [facility] ([facility]) eos % 0.3 % 0.0-3.0 Eos % [facility] ([facility]) baso % 0.4 % 0.0-1.0 Baso % [facility] ([facility]) nucleated red blood cell % 0.0 % 0-0 Nucleated Red Blood Cell % [facility] ([facility]) immature granulocyte % 0.3 % 0-3.0 Immature Gran ulocyte % [facility] ([facility]) mono # 0.7 10 0.0-0.8 [place] # [facility] ([facility]) lymph # 1.8 10 1.5-5.0 Lymph # [facility] ([facility]) neutrophils # 7.4 10 1.5-8.5 Neutrophils # [facility] ( [facility]) eos # 0.0 10 0.0-0.5 Eos # [facility] ([facility]) baso # 0.0 10 0.0-0.2 Baso # [facility] ([facility]) ID Date Data Source [id number] 05/31/2020 07:16:00 AM EST [facility] ([facility]) Name Value Range Interpretation Code Description Data Fabiola rce(s) Supporting Document(s) thyroid stimulating hormone 0.474 uIU/mL 0.358-3.740 Thyroid Stimulating Hormone [facility] ([facility]) ID Date Data Source [id number] 05/31/2020 07:16:00 AM EST [facility] ([facility]) Name Value Range Interpretation Code Description Data Fabiola rce(s) Supporting Document(s) acetaminophen level < 2.0 10.0-30.0 Below low normal Acetaminop hen Level [facility] ([facility]) ID Date Data Source [id number] 05/31/2020 07:16:00 AM EST [facility] ([facility]) Name Value Range Interpretation Code Description Data Fabiola rce(s) Supporting Document(s) salicylate level 3.4 mg/dL 5.0-30.0 Below low normal Salicylate [place] [facility] ([facility]) ID Date Data Source [id number] 05/31/2020 07:16:00 AM EST [facility] ([facility]) Name Value Range Interpretation Code Description Data Fabiola rce(s) Supporting Document(s) ethyl alcohol (ethanol) < 0.003 0.000-0.010 Ethyl Alcoh ol (Ethanol) [place] ([facility]) ID Date Data Source [id number] 05/31/2020 07:16:00 AM EST [facility] ([facility]) Name Value Range Interpretation Code Description Data Fabiola rce(s) Supporting Document(s) CPK creatine phosphokinase 967 U/L 39-308 Above high nor mal CPK Creatine Phosphokinase [place] ([facility]) ID Date Data Source [id number] 05/31/2020 07:16:00 AM EST [facility] ([facility]) Name Value Range Interpretation Code Description Data Fabiola rce(s) Supporting Document(s) glucose, fasting 226 mg/dL 70-100 Above high normal Glucose, Fas ting [facility] ([facility]) blood urea nitrogen 23 mg/dL 7-18 Above high normal Blood Ure a Nitrogen [facility] ([facility]) creatinine for GFR 1.10 mg/dL 0.70-1.30 Creatinine for GF R [facility] ([facility]) glomerular filtration rate > 60.0 >56 Glomerula r Filtration Rate [facility] ([facility]) potassium serum 4.2 mEq/L 3.5-5.1 Potassium Serum [facility] NA ([facility]) sodium level 136 mEq/L 136-145 Sodium Level [facility] ([facility]) anion gap 10 mEq/L 8-16 Anion Gap [facility] ([facility]) carbon dioxide level 25 mEq/L 21-32 Carbon Dioxide Level [facility] ([facility]) chloride level 101 mEq/L 98-107 Chloride Level [facility] ([facility]) calcium level 9.7 mg/dL 8.5-10.1 Calcium Level [facility] ( [facility]) ID Date Data Source [id number] 05/31/2020 07:16:00 AM EST [facility] ([facility]) Name Value Range Interpretation Code Description Data Fabiola rce(s) Supporting Document(s) ALT/SGPT 20 U/L 12-78 ALT/SGPT [facility] ([facility]) AST/SGOT 25 U/L 7-37 AST/SGOT [facility] ([facility]) alkaline phosphatase 62 U/L 45-117 Alkaline Phosph atase [facility] ([facility]) bilirubin,direct 0.2 mg/dL 0.0-0.2 Bilirubin,direct [place] ([facility]) bilirubin,total 0.6 mg/dL 0.2-1.0 Bilirubin,total [facility] ([facility]) total protein 8.4 gm/dL 6.4-8.2 Above high normal Total Protein A [facility] ([facility]) albumin/globulin ratio Albumin/globu liz Ratio [facility] ([facility]) albumin 4.2 gm/dL 3.2-5.2 Albumin [facility] ([facility]) ID Date Data Source [id number] 05/31/2020 07:16:00 AM EST [facility] ([facility]) Name Value Range Interpretation Code Description Data Fabiola rce(s) Supporting Document(s) white blood count 10.0 10 4.0-10.0 White Blood Count [facility] ([facility]) red blood count 4.88 10 4.30-6.10 Red Blood Count ATHE NA ([facility]) hematocrit 43.5 % 42.0-52.0 Hematocrit [facility] ([facility]) hemoglobin 14.2 g/dL 13.5-17.5 Hemoglobin [facility] ([facility]) mean corpuscular volume 89.1 fL 80.0-96.0 Mean Corpusc ular Volume MARTIR ([facility]) mean corpuscular hemoglobin 29.1 pg 27.0-33.0 Mean Cor puscular Hemoglobin MARTIR ([facility]) mean corpuscular HGB conc 32.6 g/dL 32.0-36.5 Mean Corpu scular HGB Conc MARTIR ([facility]) red cell distribution width 12.8 % 11.5-14.5 Red Cell Distribution Width MARTIR ([facility]) neutrophils % 73.6 % 36.0-66.0 Above high normal Neutrophils % A THENA ([facility]) lymph % 18.0 % 24.0-44.0 Below low normal Lymph % [place] ( [facility]) platelet count, automated 235 10 150-450 Platelet C ount, Automated MARTIR ([facility]) eos % 0.3 % 0.0-3.0 Eos % MARTIR ([facility]) mono % 7.4 % 0.0-5.0 Above high normal [place] % MARTIR ([facility]) baso % 0.4 % 0.0-1.0 Baso % MARTIR ([facility]) lymph # 1.8 10 1.5-5.0 Lymph # [place] ([facility]) nucleated red blood cell % 0.0 % 0-0 Nucleated Red Blood Cell % MARTIR ([facility]) immature granulocyte % 0.3 % 0-3.0 Immature Gran ulocyte % MARTRI ([facility]) neutrophils # 7.4 10 1.5-8.5 Neutrophils # MARTIR ( [facility]) eos # 0.0 10 0.0-0.5 Eos # MARTIR ([facility]) baso # 0.0 10 0.0-0.2 Baso # MARTIR ([facility]) mono # 0.7 10 0.0-0.8 [place] # MARTIR ([facility]) ID Date Data Source [id number] 05/31/2020 07:16:00 AM EST MARTIR ([facility]) Name Value Range Interpretation Code Description Data Fabiola rce(s) Supporting Document(s) thyroid stimulating hormone 0.474 uIU/mL 0.358-3.740 Thyroid Stimulating Hormone MARTIR ([facility]) ID Date Data Source [id number] 05/31/2020 07:16:00 AM EST MARTIR ([facility]) Name Value Range Interpretation Code Description Data Fabiola rce(s) Supporting Document(s) acetaminophen level < 2.0 10.0-30.0 Below low normal [facility] ID Date Data Source [id number] 05/31/2020 07:16:00 AM EST MARTIR ([facility]) Name Value Range Interpretation Code Description Data Fabiola rce(s) Supporting Document(s) salicylate level 3.4 mg/dL 5.0-30.0 Below low normal Salicylate [place] MARTIR ([facility]) ID Date Data Source [id number] 05/31/2020 07:16:00 AM EST MARTIR ([facility]) Name Value Range Interpretation Code Description Data Fabiola rce(s) Supporting Document(s) ethyl alcohol (ethanol) < 0.003 0.000-0.010 Ethyl Alcoh ol (Ethanol) MARTIR ([facility]) ID Date Data Source [id number] 05/31/2020 07:16:00 AM EST MARTIR [facility]) Name Value Range Interpretation Code Description Data Fabiola rce(s) Supporting Document(s) CPK creatine phosphokinase 967 U/L 39-308 Above high nor mal CPK Creatine Phosphokinase [facility] ID Date Data Source [id number] 05/31/2020 07:16:00 AM EST MARTIR ([facility]) Name Value Range Interpretation Code Description Data Fabiola rce(s) Supporting Document(s) glucose, fasting 226 mg/dL 70-100 Above high normal Glucose, Fas ting MARTIR ([facility]) creatinine for GFR 1.10 mg/dL 0.70-1.30 Creatinine for GF R MARTIR ([facility]) sodium level 136 mEq/L 136-145 Sodium Level MARTIR ([facility]) blood urea nitrogen 23 mg/dL 7-18 Above high normal Blood Ure a Nitrogen MARTIR ([facility]) glomerular filtration rate > 60.0 >56 Glomerula r Filtration Rate [place] ([facility]) potassium serum 4.2 mEq/L 3.5-5.1 Potassium Serum ATHE ([facility]) anion gap 10 mEq/L 8-16 Anion Gap MARTIR ([facility]) chloride level 101 mEq/L 98-107 Chloride Level [place] ([facility]) carbon dioxide level 25 mEq/L 21-32 Carbon Dioxide Level MARTIR ([facility]) calcium level 9.7 mg/dL 8.5-10.1 Calcium Level [place] ( [facility]) ID Date Data Source [id number] 05/31/2020 07:16:00 AM EST MARTIR ([facility]) Name Value Range Interpretation Code Description Data Fabiola rce(s) Supporting Document(s) ALT/SGPT 20 U/L 12-78 ALT/SGPT M[facility]IR ([facility]) AST/SGOT 25 U/L 7-37 AST/SGOT MARTIR ([facility]) bilirubin,total 0.6 mg/dL 0.2-1.0 Bilirubin,total ATHE ([facility]) bilirubin,direct 0.2 mg/dL 0.0-0.2 Bilirubin,direct AT EDISON [facility]) alkaline phosphatase 62 U/L 45-117 Alkaline Phosph atase MARTIR ([facility]) albumin/globulin ratio Albumin/globu liz Ratio MARTIR ([facility]) total protein 8.4 gm/dL 6.4-8.2 Above high normal [facility] albumin 4.2 gm/dL 3.2-5.2 Albumin MARTIR ([facility]) ID Date Data Source [id number] 05/31/2020 07:16:00 AM EST MARTIR ([facility]) Name Value Range Interpretation Code Description Data Fabiola rce(s) Supporting Document(s) red blood count 4.88 10 4.30-6.10 Red Blood Count ATHE NA ([facility]) white blood count 10.0 10 4.0-10.0 White Blood Count MARTIR ([facility]) hemoglobin 14.2 g/dL 13.5-17.5 Hemoglobin MARTIR ([facility]) hematocrit 43.5 % 42.0-52.0 Hematocrit MARTIR ([facility]) mean corpuscular volume 89.1 fL 80.0-96.0 Mean Corpusc ular Volume MARTIR ([facility]) red cell distribution width 12.8 % 11.5-14.5 Red Cell Distribution Width MARTIR ([facility]) mean corpuscular HGB conc 32.6 g/dL 32.0-36.5 Mean Corpu scular HGB Conc MARTIR ([facility]) mean corpuscular hemoglobin 29.1 pg 27.0-33.0 Mean Cor puscular Hemoglobin MARTIR ([facility]) platelet count, automated 235 10 150-450 Platelet C ount, Automated MARTIR ([facility]) mono % 7.4 % 0.0-5.0 Above high normal [place] % MARTIR ([facility]) neutrophils % 73.6 % 36.0-66.0 Above high normal Neutrophils % A THENA ([facility]) lymph % 18.0 % 24.0-44.0 Below low normal Lymph % MARTIR ( [facility]) eos % 0.3 % 0.0-3.0 Eos % MARTIR ([facility]) immature granulocyte % 0.3 % 0-3.0 Immature Gran ulocyte % MARTIR ([facility]) baso % 0.4 % 0.0-1.0 Baso % MARTIR ([facility]) mono # 0.7 10 0.0-0.8 [place] # [place] ([facility]) neutrophils # 7.4 10 1.5-8.5 Neutrophils # [place] ( [facility]) nucleated red blood cell % 0.0 % 0-0 Nucleated Red Blood Cell % MARTIR ([facility]) lymph # 1.8 10 1.5-5.0 Lymph # MARTIR ([facility]) eos # 0.0 10 0.0-0.5 Eos # MARTIR ([facility]) baso # 0.0 10 0.0-0.2 Baso # MARTIR ([facility]) ID Date Data Source [id number] 05/31/2020 07:16:00 AM EST MARTIR ([facility]) Name Value Range Interpretation Code Description Data Fabiola rce(s) Supporting Document(s) thyroid stimulating hormone 0.474 uIU/mL 0.358-3.740 Thyroid Stimulating Hormone [place] ([facility]) ID Date Data Source [id number] 05/31/2020 07:16:00 AM EST [place] ([facility]) Name Value Range Interpretation Code Description Data Fabiola rce(s) Supporting Document(s) acetaminophen level < 2.0 10.0-30.0 Below low normal Acetaminop hen Level [place] ([facility]) Procedure Social History Code Duration Value Status Description Data Source(s ) Smoking 04/15/2021 12:00:00 AM EDT Unknown if ever smoked comp leted Unknown if ever smoked [facility] ([facility]) Smoking 03/21/2021 12:00:00 AM EDT Unknown if ever smoked comp leted Unknown if ever smoked [facility] ([facility]) Alcohol intake 03/02/2021 12:00:00 AM EDT Ex-drinker (finding) comp leted Ex- drinker (finding) [facility] Tobacco use and exposure 03/02/2021 12:00:00 AM EDT Never used co mpleted Never used [facility] Cigarette pack-years 03/02/2021 12:00:00 AM EDT UNK completed [facility] Cigarettes smoked current (pack per day) - Reported 03/02/20 12:00:00 AM EDT UNK completed [facility] Smoking 03/02/2021 12:00:00 AM EDT Current every day smoker co mpleted Current every day smoker [facility] Smoking 02/26/2021 12:00:00 AM EDT Unknown if ever smoked comp leted Unknown if ever smoked [facility] ([facility]) Smoking 01/31/2021 12:00:00 AM EDT Unknown if ever smoked comp leted Unknown if ever smoked [facility] ([facility]) Smoking 12/13/2020 12:00:00 AM EDT Unknown if ever smoked comp leted Unknown if ever smoked [facility] ([facility]) Smoking 11/22/2020 12:00:00 AM EDT Unknown if ever smoked comp leted Unknown if ever smoked [facility] ([facility]) Smoking 10/18/2020 12:00:00 AM EDT Unknown if ever smoked comp leted Unknown if ever smoked [facility] ([facility]) Smoking 10/08/2020 12:00:00 AM EDT Unknown if ever smoked comp leted Unknown if ever smoked [facility] ([facility]) Smoking 10/01/2020 12:00:00 AM EDT Unknown if ever smoked comp leted Unknown if ever smoked [facility] ([facility]) Smoking 08/27/2020 12:00:00 AM EST Unknown if ever smoked comp leted Unknown if ever smoked [facility] ([facility]) Smoking 08/03/2020 12:00:00 AM EST Unknown if ever smoked comp leted Unknown if ever smoked [facility] ([facility]) Smoking 07/10/2020 12:00:00 AM EST Unknown if ever smoked comp leted Unknown if ever smoked [facility] ([facility]) Smoking 06/14/2020 12:00:00 AM EST Unknown if ever smoked comp leted Unknown if ever smoked [facility] ([facility]) Smoking 06/12/2020 12:00:00 AM EST Unknown if ever smoked comp leted Unknown if ever smoked [facility] ([facility]) Smoking 04/24/2020 12:00:00 AM EDT Unknown if ever smoked comp leted Unknown if ever smoked [facility] ([facility]) Smoking 04/09/2020 12:00:00 AM EDT Unknown if ever smoked comp leted Unknown if ever smoked [facility] ([facility]) Smoking 04/02/2020 12:00:00 AM EDT Unknown if ever smoked comp leted Unknown if ever smoked [facility] ([facility]) Vital Signs ID Date Data Source UNK Name Value Range Interpretation Code Description Data Source(s) Diastolic blood pressure 82 mm[Hg] 82 mm[Hg] MARTIR ([facility]) Body height 66 [in_i] 66 [in_i] MARTIR ([facility]) Systolic blood pressure 110 mm[Hg] 110 mm[Hg] A THENA ([facility]) Diastolic blood pressure 82 mm[Hg] 82 mm[Hg] MARTIR ([facility]) Body height 66 [in_i] 66 [in_i] MARTIR ([facility]) Systolic blood pressure 110 mm[Hg] 110 mm[Hg] A THENA ([facility]) Diastolic blood pressure 82 mm[Hg] 82 mm[Hg] MARTIR ([facility]) Body height 66 [in_i] 66 [in_i] [facility]ARTIR ([facility]) Systolic blood pressure 110 mm[Hg] 110 mm[Hg] A THENA ([facility]) Diastolic blood pressure 70 mm[Hg] 70 mm[Hg] MARTIR ([facility]) Body height 62 [in_i] 62 [in_i] MARTIR ([facility]) Body mass index (BMI) [Ratio] 30.6 kg/m2 30.6 k g/m2 MARTIR ([facility]) Systolic blood pressure 104 mm[Hg] 104 mm[Hg] A THENA ([facility]) Body weight 2676 [oz_av] 2676 [oz_av] MARTIR ([facility]) Diastolic blood pressure 79 mm[Hg] 79 mm[Hg] MARTIR ([facility]) Body height 66 [in_i] 66 [in_i] MARTIR ([facility]) Systolic blood pressure 124 mm[Hg] 124 mm[Hg] A THENA ([facility]) Diastolic blood pressure 79 mm[Hg] 79 mm[Hg] MARTIR ([facility]) Body height 66 [in_i] 66 [in_i] MARTIR ([facility]) Systolic blood pressure 124 mm[Hg] 124 mm[Hg] A THENA ([facility]) Diastolic blood pressure 79 mm[Hg] 79 mm[Hg] MARTIR ([facility]) Body height 66 [in_i] 66 [in_i] MARTIR ([facility]) Systolic blood pressure 124 mm[Hg] 124 mm[Hg] A THENA ([facility]) Diastolic blood pressure 79 mm[Hg] 79 mm[Hg] MARTIR ([facility]) Body height 66 [in_i] 66 [in_i] MARTIR ([facility]) Systolic blood pressure 124 mm[Hg] 124 mm[Hg] A THENA ([facility]) Body mass index (BMI) [Ratio] 27.1 kg/m2 27.1 k g/m2 MARTIR ([facility]) Diastolic blood pressure 74 mm[Hg] 74 mm[Hg] MARTIR ([facility]) Systolic blood pressure 112 mm[Hg] 112 mm[Hg] A THENA ([facility]) Body weight 167.6 [lb_av] 167.6 [lb_av] MARTIR ([facility]) Body height 66 [in_i] 66 [in_i] MARTIR ([facility]) Diastolic blood pressure 74 mm[Hg] 74 mm[Hg] MARTIR ([facility]) Body height 66 [in_i] 66 [in_i] MARTIR ([facility]) Body mass index (BMI) [Ratio] 27.1 kg/m2 27.1 k g/m2 MARTIR ([facility]) Systolic blood pressure 112 mm[Hg] 112 mm[Hg] A THENA ([facility]) Body weight 167.6 [lb_av] 167.6 [lb_av] MARTIR ([facility]) Diastolic blood pressure 74 mm[Hg] 74 mm[Hg] MARTIR ([facility]) Body height 66 [in_i] 66 [in_i] MARTIR ([facility]) Body mass index (BMI) [Ratio] 27.1 kg/m2 27.1 k g/m2 MARTIR ([facility]) Systolic blood pressure 112 mm[Hg] 112 mm[Hg] A THENA ([facility]) Body weight 167.6 [lb_av] 167.6 [lb_av] MARTIR ([facility]) Diastolic blood pressure 74 mm[Hg] 74 mm[Hg] MARTIR ([facility]) Body height 66 [in_i] 66 [in_i] MARTIR ([facility]) Body mass index (BMI) [Ratio] 27.1 kg/m2 27.1 k g/m2 MARTIR ([facility]) Systolic blood pressure 112 mm[Hg] 112 mm[Hg] A THENA ([facility]) Body weight 167.6 [lb_av] 167.6 [lb_av] MARTIR ([facility]) Diastolic blood pressure 74 mm[Hg] 74 mm[Hg] MARTIR ([facility]) Body height 66 [in_i] 66 [in_i] MARTIR ([facility]) Body mass index (BMI) [Ratio] 27.1 kg/m2 27.1 k g/m2 MARTIR ([facility]) Systolic blood pressure 112 mm[Hg] 112 mm[Hg] A THENA ([facility]) Body weight 167.6 [lb_av] 167.6 [lb_av] MARTIR ([facility]) Diastolic blood pressure 66 mm[Hg] 66 mm[Hg] MARTIR ([facility]) Body height 62 [in_i] 62 [in_i] MARTIR ([facility]) Body mass index (BMI) [Ratio] 30.4 kg/m2 30.4 k g/m2 MARTIR ([facility]) Systolic blood pressure 111 mm[Hg] 111 mm[Hg] A SUNA ([facility]) Body weight 2656 [oz_av] 2656 [oz_av] MARTIR ([facility]) Diastolic blood pressure 66 mm[Hg] 66 mm[Hg] MARTIR ([facility]) Body height 62 [in_i] 62 [in_i] MARTIR ([facility]) Body mass index (BMI) [Ratio] 30.4 kg/m2 30.4 k g/m2 MARTIR ([facility]) Systolic blood pressure 111 mm[Hg] 111 mm[Hg] A SUNA ([facility]) Body weight 2656 [oz_av] 2656 [oz_av] MARTIR ([facility]) Body height 0.00 in Normal (applies to non-numeric resu lts) 0.00 in [facility] ([facility]) Body weight Measured 0.00 lbs Normal (applies to n on-numeric results) 0.00 lbs [facility] ([facility]) Body mass index (BMI) [Ratio] 0.00 kg/m2 No rmal (applies to non-numeric results) 0.00 kg/m2 [facility] ([facility]) Systolic blood pressure 0 mm[Hg] Normal (applies t o non-numeric results) 0 mm[Hg] [facility] Diastolic blood pressure 0 mm[Hg] Normal (applies to non-numeric results) 0 mm[Hg] [facility] ([facility]) Body height 0.00 in Normal (applies to non-numeric resu lts) 0.00 in [facility] ([facility]) Body weight Measured 0.00 lbs Normal (applies to n on-numeric results) 0.00 lbs [facility] ([facility]) Body mass index (BMI) [Ratio] 0.00 kg/m2 No rmal (applies to non-numeric results) 0.00 kg/m2 [facility] ([facility]) Systolic blood pressure 0 mm[Hg] Normal (applies t o non-numeric results) 0 mm[Hg] [facility] ([facility]) Diastolic blood pressure 0 mm[Hg] Normal (applies to non-numeric results) 0 mm[Hg] [facility] ([facility]) Diastolic blood pressure 58 mm[Hg] 58 mm[Hg] MARTIR ([facility]) Body height 62 [in_i] 62 [in_i] MARTIR ([facility]) Body weight 2822 [oz_av] 2822 [oz_av] MARTIR ([facility]) Body mass index (BMI) [Ratio] 32.3 kg/m2 32.3 k g/m2 MARTIR ([facility]) Systolic blood pressure 93 mm[Hg] 93 mm[Hg] [facility] Diastolic blood pressure 58 mm[Hg] 58 mm[Hg] MARTIR ([facility]) Body height 62 [in_i] 62 [in_i] MARTIR ([facility]) Body mass index (BMI) [Ratio] 32.3 kg/m2 32.3 k g/m2 MARTIR ([facility]) Systolic blood pressure 93 mm[Hg] 93 mm[Hg] A [facility] ([facility]) Body weight 2822 [oz_av] 2822 [oz_av] MARTIR ([facility]) Diastolic blood pressure 58 mm[Hg] 58 mm[Hg] MARTIR ([facility]) Body height 62 [in_i] 62 [in_i] MARTIR ([facility]) Body mass index (BMI) [Ratio] 32.3 kg/m2 32.3 k g/m2 MARTIR ([facility]) Systolic blood pressure 93 mm[Hg] 93 mm[Hg] [facility] Body weight 2822 [oz_av] 2822 [oz_av] MARTIR ([facility]) Diastolic blood pressure 58 mm[Hg] 58 mm[Hg] MARTIR ([facility]) Body height 62 [in_i] 62 [in_i] MARTIR ([facility]) Body mass index (BMI) [Ratio] 32.3 kg/m2 32.3 k g/m2 MARTIR ([facility]) Systolic blood pressure 93 mm[Hg] 93 mm[Hg] A THENA ([facility]) Body weight 2822 [oz_av] 2822 [oz_av] MARTIR ([facility]) Body height 0.00 in Normal (applies to non-numeric resu lts) [facility] Body weight Measured 0.00 lbs Normal (applies to n on-numeric results) 0.00 lbs [facility] ([facility]) Body mass index (BMI) [Ratio] 0.00 kg/m2 No rmal (applies to non-numeric results) 0.00 kg/m2 [facility] ([facility]) Systolic blood pressure 0 mm[Hg] Normal (applies t o non-numeric results) 0 mm[Hg] [facility] ([facility]) Diastolic blood pressure 0 mm[Hg] Normal (applies to non-numeric results) 0 mm[Hg] [facility] ([facility]) Body height 0.00 in Normal (applies to non-numeric resu lts) 0.00 in [facility] ([facility]) Body weight Measured 0.00 lbs Normal (applies to n on-numeric results) 0.00 lbs [facility] ([facility]) Body mass index (BMI) [Ratio] 0.00 kg/m2 No rmal (applies to non-numeric results) 0.00 kg/m2 [facility] ([facility]) Systolic blood pressure 0 mm[Hg] Normal (applies t o non-numeric results) 0 mm[Hg] [facility] Diastolic blood pressure 0 mm[Hg] Normal (applies to non-numeric results) 0 mm[Hg] [facility] ([facility]) ID Date Data Source [id number] 03/06/2021 10:25:59 PM T [facility] Name Value Range Interpretation Code Description Data Source(s) TRANSFER FROM Other Facility Other Facility [facility] ID Date Data Source [id number] 10/30/2020 11:15:23 AM EDT [facility] Name Value Range Interpretation Code Description Data Source(s) Chief complaint - Reported hypotension hypotens [facility] Chief complaint - Reported hypotension hypotens [facility] ID Date Data Source [id number] 11/06/2020 02:27:21 PM EDT [facility] Name Value Range Interpretation Code Description Data Source(s) Chief complaint - Reported psych transfer psych transfer [facility] Chief complaint - Reported psych transfer psych transfer [facility] Patient Treatment Plan of Care Planned Activity Planned Date Details Description Data Source (s) Nicotine 2 MG Oral Lozenge 03/06/2021 12:00:00 AM [facility] dextrose 50 % IV solution 25 mL 03/02/2021 07:12:16 PM [facility] Glucagon 1 MG Injection 03/02/2021 07:12:16 PM [facility] Glucose 0.417 MG/MG Oral Gel 03/02/2021 07:12:16 PM [facility] Acetaminophen 325 MG Oral Tablet 03/02/2021 07:02:17 PM [facility] 24 HR Metformin hydrochloride 500 MG Extended Release Oral Tablet 10/16/2014 12:00:00 AM [facility] Trazodone Hydrochloride 100 MG Oral Tablet 09/08/2014 12:00:00 AM [facility] quetiapine 100 MG Oral Tablet 09/08/2014 12:00:00 AM [facility] 24 HR Glipizide 2.5 MG Extended Release Oral Tablet 01/21/20 12:00:00 AM [facility] Cholecalciferol 2000 UNT Oral Capsule [facility]ARTIR ([facility]) Trazodone Hydrochloride 50 MG Oral Tablet MARTIR ([facility]) Trazodone Hydrochloride 100 MG Oral Tablet MARTIR ([facility]) tramadol hydrochloride 50 MG Oral Tablet MARTIR ([facility]) tizanidine 2 MG Oral Tablet MARTIR ([facility]) Steglatro 5 mg tablet MARTIR ([facility]) Steglatro 15 mg tablet ATHEN A ([facility]) Risperidone 4 MG Oral Tablet MARTIR ([facility]) quetiapine 400 MG Oral Tablet MARTIR ([facility]) pen needles mis [id number] ATH [place] ([facility]) OneTouch Ultra2 Meter kit AT [facility] ([facility]) OneTouch Ultra2 Meter USE DIRECTED TO TEST BLOOD SUGAR THREE TIMES DAILY [facility] ([facility]) OneTouch Ultra Blue Test Strip [facility] ([facility]) Nicotine 2 MG Chewing Gum AT [facility] ([facility]) Naltrexone hydrochloride 50 MG Oral Tablet [facility] ([facility]) Metformin hydrochloride 850 MG Oral Tablet [facility] ([facility]) meloxicam 15 MG Oral Tablet [facility] ([facility]) empagliflozin 25 MG Oral Tablet [Jardiance] [facility] ([facility]) insulin syrg mis 1ml/29g [facility] [place] ([facility]) insulin syrg mis 0.5/31g [facility] [place] ([facility]) insulin syrg mis 1ml/29g [facility] [place] ([facility]) insulin syrg mis 0.5/31g [facility] [place] ([facility]) gabapentin 400 MG Oral Capsule [facility] ([facility]) Cephalexin 500 MG Oral Capsule [facility] ([facility]) celecoxib 200 MG Oral Capsule [facility] ([facility]) Amoxicillin 500 MG Oral Capsule [facility] ([facility]) Acetaminophen 300 MG / Codeine Phosphate 30 MG Oral Tablet [facility] ([facility]) Cholecalciferol 2000 UNT Oral Capsule [facility] ([facility]) Trazodone Hydrochloride 50 MG Oral Tablet [facility] ([facility]) Trazodone Hydrochloride 100 MG Oral Tablet [facility] ([facility]) tramadol hydrochloride 50 MG Oral Tablet [facility] ([facility]) tizanidine 2 MG Oral Tablet [facility] ([facility]) Steglatro 5 mg tablet [facility] ([facility]) Steglatro 15 mg tablet ATHEN A ([facility]) Risperidone 4 MG Oral Tablet [facility] ([facility]) quetiapine 400 MG Oral Tablet [facility] ([facility]) pen needles mis [id number] [facility] [place] ([facility]) OneTouch Ultra2 Meter kit AT [facility] ([facility]) OneTouch Ultra2 Meter USE DIRECTED TO TEST BLOOD SUGAR THREE TIMES DAILY [facility] ([facility]) OneTouch Ultra Blue Test Strip [facility] ([facility]) Nicotine 2 MG Chewing Gum AT [facility] ([facility]) Naltrexone hydrochloride 50 MG Oral Tablet [facility] ([facility]) Metformin hydrochloride 850 MG Oral Tablet [facility] ([facility]) meloxicam 15 MG Oral Tablet [facility] ([facility]) empagliflozin 25 MG Oral Tablet [Jardiance] [facility] ([facility]) insulin syrg mis 1ml/29g [facility] [place] ([facility]) insulin syrg mis 0.5/31g [facility] [place] ([facility]) gabapentin 400 MG Oral Capsule [facility] ([facility]) Cephalexin 500 MG Oral Capsule [facility] ([facility]) celecoxib 200 MG Oral Capsule [facility] ([facility]) Amoxicillin 500 MG Oral Capsule [facility] ([facility]) Acetaminophen 300 MG / Codeine Phosphate 30 MG Oral Tablet [facility] ([facility]) Trazodone Hydrochloride 50 MG Oral Tablet [facility] ([facility]) Steglatro 5 mg tablet TAKE ONE TABLET BY MOUTH ONCE DAILY [facility] ([facility]) quetiapine 200 MG Oral Tablet [facility] ([facility]) Nicotine 2 MG Chewing Gum AT [facility] ([facility]) Metformin hydrochloride 850 MG Oral Tablet [facility] ([facility]) meloxicam 15 MG Oral Tablet [facility] ([facility]) Levofloxacin 500 MG Oral Tablet [facility] ([facility]) Ibuprofen 800 MG Oral Tablet [facility] ([facility]) Acetaminophen 325 MG / Hydrocodone Bitartrate 5 MG Oral Tablet [facility] ([facility]) gabapentin 400 MG Oral Capsule [facility] ([facility]) Acetaminophen 300 MG / Codeine Phosphate 30 MG Oral Tablet [facility] ([facility]) Trazodone Hydrochloride 50 MG Oral Tablet [facility] tizanidine 4 MG Oral Tablet [facility] Regular Insulin, Human 100 UNT/ML Injectable Solution [facility] Cholecalciferol 2000 UNT Oral Capsule [facility] ([facility]) Ergocalciferol 58907 UNT Oral Capsule [facility] ([facility]) Trazodone Hydrochloride 50 MG Oral Tablet [facility] ([facility]) Trazodone Hydrochloride 100 MG Oral Tablet [facility] ([facility]) tramadol hydrochloride 50 MG Oral Tablet [facility] ([facility]) tizanidine 2 MG Oral Tablet [facility] ([facility]) Steglatro 5 mg tablet [facility] ([facility]) gabapentin 400 MG Oral Capsule [facility] ([facility]) Clonazepam 0.5 MG Oral Tablet [facility] ([facility]) Cephalexin 500 MG Oral Capsule [facility] ([facility]) celecoxib 200 MG Oral Capsule [facility] ([facility]) BD Ultra-Fine Mini Pen Needle 31 gauge x 3/16" USE [facility]ED [facility] insulin pens [facility] BD Insulin Syringe Ultra-Fine 1 mL 30 ga uge x 1/2" use as directed to inject insulin five times a day ud ATHE NA ([facility]) Amoxicillin 500 MG Oral Capsule [facility] ([facility]) Acetaminophen 300 MG / Codeine Phosphate 30 MG Oral Tablet [facility] ([facility]) Trazodone Hydrochloride 50 MG Oral Tablet [facility] ([facility]) gabapentin 400 MG Oral Capsule [facility] ([facility]) Cephalexin 500 MG Oral Capsule [facility] ([facility]) celecoxib 200 MG Oral Capsule [facility] ([facility]) Amoxicillin 500 MG Oral Capsule [facility] ([facility]) Acetaminophen 300 MG / Codeine Phosphate 30 MG Oral Tablet [facility] ([facility]) Cholecalciferol 2000 UNT Oral Capsule [facility] ([facility]) Trazodone Hydrochloride 50 MG Oral Tablet [facility] ([facility]) Trazodone Hydrochloride 100 MG Oral Tablet [facility] ([facility]) tramadol hydrochloride 50 MG Oral Tablet [facility] ([facility]) tizanidine 2 MG Oral Tablet [facility] ([facility]) Steglatro 5 mg tablet [facility] ([facility]) Steglatro 15 mg tablet ATHEN A ([facility]) Risperidone 4 MG Oral Tablet [facility] ([facility]) quetiapine 400 MG Oral Tablet [facility] ([facility]) pen needles mis [id number] [facility] [place] ([facility]) OneTouch Ultra2 Meter kit AT [facility] ([facility]) OneTouch Ultra2 Meter USE DIRECTED TO TEST BLOOD SUGAR THREE TIMES DAILY [facility] ([facility]) OneTouch Ultra Blue Test Strip [facility] ([facility]) Nicotine 2 MG Chewing Gum AT [facility] ([facility]) Naltrexone hydrochloride 50 MG Oral Tablet [facility] ([facility]) Metformin hydrochloride 850 MG Oral Tablet [facility] ([facility]) meloxicam 15 MG Oral Tablet [facility] ([facility]) empagliflozin 25 MG Oral Tablet [Jardiance] [facility] ([facility]) Steglatro 5 mg tablet TAKE ONE TABLET BY MOUTH ONCE DAILY [facility] ([facility]) Nicotine 2 MG Chewing Gum AT [facility] ([facility]) meloxicam 15 MG Oral Tablet [facility] ([facility]) Levofloxacin 500 MG Oral Tablet [facility] ([facility]) Acetaminophen 325 MG / Hydrocodone Bitartrate 5 MG Oral Tablet [facility] ([facility]) gabapentin 400 MG Oral Capsule [facility] ([facility]) Steglatro 5 mg tablet TAKE ONE TABLET BY MOUTH ONCE DAILY [facility] ([facility]) Levofloxacin 500 MG Oral Tablet [facility] ([facility]) Acetaminophen 325 MG / Hydrocodone Bitartrate 5 MG Oral Tablet [facility] ([facility]) Steglatro 5 mg tablet TAKE ONE TABLET BY MOUTH ONCE DAILY [facility] ([facility]) Levofloxacin 500 MG Oral Tablet [facility] ([facility]) Acetaminophen 325 MG / Hydrocodone Bitartrate 5 MG Oral Tablet [facility] ([facility]) gabapentin 300 MG Oral Capsule [facility] ([facility]) Steglatro 15 mg tablet ATHEN A ([facility]) Risperidone 4 MG Oral Tablet [facility] ([facility]) quetiapine 400 MG Oral Tablet [facility] ([facility]) quetiapine 300 MG Oral Tablet [facility] ([facility]) pen needles mis [id number] [facility] [place] ([facility]) OneTouch Ultra2 Meter kit AT [facility] ([facility]) OneTouch Ultra2 Meter USE DIRECTED TO TEST BLOOD SUGAR THREE TIMES DAILY [facility] ([facility]) OneTouch Ultra Test strips ONE MISCELLANEOUS THREE TIMES A DAY N EEDED [facility] ([facility]) OneTouch Ultra Blue Test Strip [facility] ([facility]) OneTouch Delica Plus Lancet 33 gauge [facility] ([facility]) Nicotine 2 MG Chewing Gum AT [facility] ([facility]) Naltrexone hydrochloride 50 MG Oral Tablet [facility] ([facility]) Metformin hydrochloride 850 MG Oral Tablet [facility] ([facility]) meloxicam 15 MG Oral Tablet [facility] ([facility]) empagliflozin 25 MG Oral Tablet [Jardiance] [facility] ([facility]) insulin syrg mis 1ml/29g [facility] [place] ([facility]) insulin syrg mis 0.5/31g [facility] [place] ([facility]) gabapentin 400 MG Oral Capsule [facility] ([facility]) Cephalexin 500 MG Oral Capsule [facility] ([facility]) celecoxib 200 MG Oral Capsule [facility] ([facility]) Amoxicillin 500 MG Oral Capsule [facility] ([facility]) Acetaminophen 300 MG / Codeine Phosphate 30 MG Oral Tablet [facility] ([facility]) Cholecalciferol 2000 UNT Oral Capsule [facility] ([facility]) Ergocalciferol 91115 UNT Oral Capsule [facility] ([facility]) Trazodone Hydrochloride 50 MG Oral Tablet [facility] ([facility]) Trazodone Hydrochloride 100 MG Oral Tablet [facility] ([facility]) tramadol hydrochloride 50 MG Oral Tablet [facility] ([facility]) tizanidine 2 MG Oral Tablet [facility] ([facility]) Steglatro 5 mg tablet [facility] ([facility]) Steglatro 15 mg tablet ATHEN A ([facility]) Risperidone 4 MG Oral Tablet [facility] ([facility]) quetiapine 400 MG Oral Tablet [facility] ([facility]) quetiapine 300 MG Oral Tablet [facility] ([facility]) pen needles mis [id number] [facility] [place] ([facility]) OneTouch Ultra2 Meter kit AT [place] ([facility]) OneTouch Ultra2 Meter USE DIRECTED TO TEST BLOOD SUGAR THREE TIMES DAILY [facility] ([facility]) OneTouch Ultra Test strips ONE MISCELLANEOUS THREE TIMES A DAY N EEDED [facility] ([facility]) OneTouch Ultra Blue Test Strip [facility] ([facility]) OneTouch Delica Plus Lancet 33 gauge [facility] ([facility]) Nicotine 2 MG Chewing Gum AT [facility] ([facility]) Naltrexone hydrochloride 50 MG Oral Tablet [facility] ([facility]) Metformin hydrochloride 850 MG Oral Tablet [facility] ([facility]) meloxicam 15 MG Oral Tablet [facility] ([facility]) empagliflozin 25 MG Oral Tablet [Jardiance] [facility] ([facility]) insulin syrg mis 1ml/29g [facility] [place] ([facility]) insulin syrg mis 0.5/31g [facility] [place] ([facility])
== END 2021-05-07 23:30 | disposition home or self-care (01) ==
LOC: M ED 17:46
DX: F20.9 Schizophrenia, unspecified (principal); F19.10 Other psychoactive substance abuse, uncomplicated; R45.5 Hostility; R45.1 Restlessness and agitation; E11.9 Type 2 diabetes mellitus without complications; M19.90 Unspecified osteoarthritis, unspecified site; N40.0 Benign prostatic hyperplasia without lower urinary tract symptoms; Z88.8 Allergy status to other drugs, medicaments and biological substances; Z79.899 Other long term (current) drug therapy; Z79.4 Long term (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 of insulin; Z79.84 Long term (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 of oral hypoglycemic drugs

== ENCOUNTER 2021-07-01 21:56 | Emergency (ER) | payer OTHER ==
[~2021-07-01] VITALS: Ht 170.2 cm; Wt 75.0 kg
[2021-07-02 00:06] VITALS: BP 130/74
== END 2021-07-02 06:13 | disposition left against medical advice (07) ==
LOC: M ED 21:56
DX: Z53.21 Procedure and treatment not carried out due to patient leaving prior to being seen by health care provider (principal)

== ENCOUNTER 2021-07-18 15:50 | Emergency (ER) | payer OTHER ==
[~2021-07-18] VITALS: Ht 170.2 cm; Wt 75.0 kg
[2021-07-18 17:45] LABS: BASO % 0.2 % (0.0-1.0); EOS % 0.1 % (0.0-3.0); HEMATOCRIT 40.9 % (42.0-52.0); HEMOGLOBIN 13.5 g/dl (13.5-17.5); LYMPH # 1.3 10^3/uL (1.5-5.0); LYMPH % 15.4 % (24.0-44.0); MEAN CORPUSCULAR HEMOGLOBIN 28.5 pg (27.0-33.0); MEAN CORPUSCULAR VOLUME 86.5 fl (80.0-96.0); MONO # 0.3 10^3/uL (0.0-0.8); MONO % 3.9 % (2.0-8.0); NEUTROPHILS % 80.1 % (36.0-66.0); PLATELET COUNT, AUTOMATED 233 10^3/uL (150-450); RED BLOOD COUNT 4.73 10^6/uL (4.30-6.10); WHITE BLOOD COUNT 8.7 10^3/uL (4.0-10.0)
[2021-07-18 17:58] LABS: INR 1.01; PROTHROMBIN TIME 13.7 SECONDS (12.7-14.5)
[2021-07-18 17:59] LABS: PARTIAL THROMBOPLASTIN TIME 26.7 SECONDS (25.9-37.0)
[2021-07-18 18:00] LABS: CK-MB VALUE MASS 1.1 NG/ML (<3.6); MB/CK RELATIVE INDEX 0.94 (< OR =4)
[2021-07-18 18:51] LABS: BLOOD UREA NITROGEN 16 MG/DL (7-18); CALCIUM LEVEL 9.2 MG/DL (8.5-10.1); CARBON DIOXIDE LEVEL 28 MEQ/L (21-32); CHLORIDE LEVEL 100 MEQ/L (98-107); CREATININE FOR GFR 1.16 MG/DL (0.70-1.30); GLOMERULAR FILTRATION RATE > 60.0 (>56); GLUCOSE, FASTING 734 MG/DL (70-100); POTASSIUM SERUM 5.1 MEQ/L (3.5-5.1); SODIUM LEVEL 133 MEQ/L (136-145)
[2021-07-18] MEDS ORDERED: HumuLIN R (REGULAR) INSULIN (NovoLIN R) **100U/ML** PER UNIT IV ONE (18:55)
[2021-07-18 20:16] VITALS: BP 125/76
== END 2021-07-18 20:28 | disposition short-term general hospital (02) ==
LOC: EDBD 15:50 → M ED 15:50
DX: I61.1 Nontraumatic intracerebral hemorrhage in hemisphere, cortical (principal); E11.9 Type 2 diabetes mellitus without complications; B19.20 Unspecified viral hepatitis C without hepatic coma; F31.9 Bipolar disorder, unspecified; F20.0 Paranoid schizophrenia; K21.9 Gastro-esophageal reflux disease without esophagitis; Z79.899 Other long term (current) drug therapy; Z79.4 Long term (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 of insulin; Z88.8 Allergy status to other drugs, medicaments and biological substances

== ENCOUNTER 2021-09-10 11:22 | Emergency (ER) | payer OTHER ==
[~2021-09-10] VITALS: Ht 170.2 cm; Wt 65.9 kg
[2021-09-10 11:24] VITALS: BP 101/67
[2021-09-10] MEDS ORDERED: ASPI81CH48 (11:31)
[2021-09-10] MEDS ORDERED: HALO1TAB (11:31)
[2021-09-10 15:11] LABS: BASO % 0.5 % (0.0-1.0); EOS # 0.1 10^3/uL (0.0-0.5); EOS % 1.3 % (0.0-3.0); HEMATOCRIT 36.5 % (42.0-52.0); LYMPH # 3.4 10^3/uL (1.5-5.0); LYMPH % 38.9 % (24.0-44.0); MEAN CORPUSCULAR HEMOGLOBIN 29.3 pg (27.0-33.0); MEAN CORPUSCULAR HGB CONC 32.9 g/dl (32.0-36.5); MEAN CORPUSCULAR VOLUME 89.2 fl (80.0-96.0); MONO # 0.4 10^3/uL (0.0-0.8); MONO % 4.5 % (2.0-8.0); NEUTROPHILS # 4.8 10^3/uL (1.5-8.5); NEUTROPHILS % 54.6 % (36.0-66.0); PLATELET COUNT, AUTOMATED 236 10^3/uL (150-450); RED BLOOD COUNT 4.09 10^6/uL (4.30-6.10); WHITE BLOOD COUNT 8.7 10^3/uL (4.0-10.0)
[2021-09-10 15:44] LABS: CK-MB VALUE MASS < 1.0 NG/ML (<3.6); CPK CREATINE PHOSPHOKINASE 81 U/L (39-308); MB/CK RELATIVE INDEX 1.23 (< OR =4)
[2021-09-10 15:54] LABS: ALBUMIN 4.1 GM/DL (3.2-5.2); ALT/SGPT 42 U/L (12-78); BILIRUBIN,DIRECT 0.1 MG/DL (0.0-0.2); BILIRUBIN,TOTAL 0.4 MG/DL (0.2-1.0); BLOOD UREA NITROGEN 12 MG/DL (7-18); CALCIUM LEVEL 9.4 MG/DL (8.5-10.1); CARBON DIOXIDE LEVEL 27 MEQ/L (21-32); CHLORIDE LEVEL 100 MEQ/L (98-107); CREATININE FOR GFR 0.68 MG/DL (0.70-1.30); FREE T4 0.91 NG/DL (0.76-1.46); GLOMERULAR FILTRATION RATE > 60.0 (>56); GLUCOSE, FASTING 312 MG/DL (70-100); LIPASE 62 U/L (73-393); POTASSIUM SERUM 3.9 MEQ/L (3.5-5.1); SODIUM LEVEL 135 MEQ/L (136-145); THYROID STIMULATING HORMONE 0.157 uIU/ML (0.358-3.740); TOTAL PROTEIN 8.5 GM/DL (6.4-8.2)
== END 2021-09-10 15:54 | disposition left against medical advice (07) ==
LOC: M ED 11:22
DX: R10.13 Epigastric pain (principal); R53.1 Weakness; Z86.73 Personal history of transient ischemic attack (TIA), and cerebral infarction without residual deficits; F17.210 Nicotine dependence, cigarettes, uncomplicated; Z88.8 Allergy status to other drugs, medicaments and biological substances; Z79.899 Other long term (current) drug therapy; Z79.4 Long term (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 of insulin; Z79.82 Long term (current) use of aspirin; Z79.84 Long term (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 of oral hypoglycemic drugs

== ENCOUNTER 2021-11-05 23:31 | Emergency (ER) | payer OTHER ==
[~2021-11-05] VITALS: Ht 165.1 cm; Wt 75.0 kg
[~2021-11-05 23:31] MED LIST changes: -ACET1TAB16; +ACET300T48; +ASPI81CH48; +HALO1TAB
[2021-11-06 00:41] LABS: VENOUS BASE EXCESS 0.3 (-2.0-2.0); VENOUS HCO3 24.6 MEQ/L (23.0-27.0); VENOUS O2 SATURATION 85.4 % (60.0-80.0); VENOUS PARTIAL PRESSURE CO2 38.6 mmHg (38.0-50.0); VENOUS PARTIAL PRESSURE O2 47.1 mmHg (30.0-50.0); VENOUS PH 7.422 UNITS (7.330-7.430); VENOUS STANDARD HCO3 24.5 MEQ/L; VENOUS TOTAL CO2 25.8 MEQ/L (24.0-28.0)
[2021-11-06 00:54] LABS: BASO % 0.2 % (0.0-1.0); HEMATOCRIT 38.4 % (42.0-52.0); HEMOGLOBIN 13.1 g/dl (13.5-17.5); LYMPH # 1.2 10^3/uL (1.5-5.0); LYMPH % 8.7 % (24.0-44.0); MEAN CORPUSCULAR HEMOGLOBIN 30.1 pg (27.0-33.0); MEAN CORPUSCULAR HGB CONC 34.1 g/dl (32.0-36.5); MEAN CORPUSCULAR VOLUME 88.3 fl (80.0-96.0); MONO # 0.6 10^3/uL (0.0-0.8); MONO % 4.5 % (2.0-8.0); NEUTROPHILS # 11.6 10^3/uL (1.5-8.5); NEUTROPHILS % 86.1 % (36.0-66.0); PLATELET COUNT, AUTOMATED 254 10^3/uL (150-450); RED BLOOD COUNT 4.35 10^6/uL (4.30-6.10); WHITE BLOOD COUNT 13.5 10^3/uL (4.0-10.0)
[2021-11-06 01:18] LABS: HEMOGLOBIN A1c 12.5 %
[2021-11-06 01:25] LABS: ACETONE/KETONE 3.14 MG/DL (<2.81); ALT/SGPT 13 U/L (12-78); BILIRUBIN,DIRECT 0.1 MG/DL (0.0-0.2); BILIRUBIN,TOTAL 0.3 MG/DL (0.2-1.0); BLOOD UREA NITROGEN 12 MG/DL (7-18); CALCIUM LEVEL 9.6 MG/DL (8.5-10.1); CARBON DIOXIDE LEVEL 25 MEQ/L (21-32); CHLORIDE LEVEL 104 MEQ/L (98-107); CREATININE FOR GFR 0.82 MG/DL (0.70-1.30); GLOMERULAR FILTRATION RATE > 60.0 (>56); GLUCOSE, FASTING 263 MG/DL (70-100); LIPASE 54 U/L (73-393); POTASSIUM SERUM 3.9 MEQ/L (3.5-5.1); SODIUM LEVEL 136 MEQ/L (136-145); TOTAL PROTEIN 8.2 GM/DL (6.4-8.2)
[2021-11-06 01:28] LABS: OSMOLALITY SERUM 298 MOSM/KG (275-295)
[2021-11-06 02:00] VITALS: BP 143/88
[2021-11-06] MEDS ORDERED: METF500T13 PO (04:18)
[2021-11-06] MEDS ORDERED: QUET300T2 PO (04:18)
[2021-11-06] MEDS ORDERED: metFORMIN (GLUCOPHAGE) 500MG TAB PO ONE (04:20)
== END 2021-11-06 04:41 | disposition home or self-care (01) ==
LOC: M ED 23:31
DX: E11.65 Type 2 diabetes mellitus with hyperglycemia (principal); I44.0 Atrioventricular block, first degree; R00.0 Tachycardia, unspecified; R56.9 Unspecified convulsions; Z86.73 Personal history of transient ischemic attack (TIA), and cerebral infarction without residual deficits; Z79.82 Long term (current) use of aspirin; Z79.4 Long term (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 of insulin; Z79.84 Long term (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 of oral hypoglycemic drugs; Z79.899 Other long term (current) drug therapy; Z88.8 Allergy status to other drugs, medicaments and biological substances

== ENCOUNTER 2021-11-09 22:33 | Inpatient (IN) | payer MEDICAID, OTHER ==
[~2021-11-09] VITALS: Ht 167.6 cm; Wt 72.7 kg
[~2021-11-09 22:33] MED LIST changes: -ASPI81CH48; +ASPI81CH48 PO; -HALO1TAB; +HALO1TAB PO
[2021-11-10 01:42] LABS: HEMATOCRIT 41.5 % (42.0-52.0); HEMOGLOBIN 13.7 g/dl (13.5-17.5); MEAN CORPUSCULAR HEMOGLOBIN 29.4 pg (27.0-33.0); MEAN CORPUSCULAR VOLUME 89.1 fl (80.0-96.0); PLATELET COUNT, AUTOMATED 269 10^3/uL (150-450); RED BLOOD COUNT 4.66 10^6/uL (4.30-6.10); WHITE BLOOD COUNT 8.5 10^3/uL (4.0-10.0)
[2021-11-10 02:14] LABS: ACETAMINOPHEN LEVEL < 2.0 UG/ML (10.0-30.0); ALBUMIN 4.1 GM/DL (3.2-5.2); ALT/SGPT 15 U/L (12-78); BILIRUBIN,DIRECT 0.3 MG/DL (0.0-0.2); BILIRUBIN,TOTAL 0.7 MG/DL (0.2-1.0); BLOOD UREA NITROGEN 13 MG/DL (7-18); CALCIUM LEVEL 9.6 MG/DL (8.5-10.1); CARBON DIOXIDE LEVEL 27 MEQ/L (21-32); CHLORIDE LEVEL 103 MEQ/L (98-107); CREATININE FOR GFR 1.01 MG/DL (0.70-1.30); ETHYL ALCOHOL (ETHANOL) < 0.003 % (0.000-0.010); GLOMERULAR FILTRATION RATE > 60.0 (>56); GLUCOSE, FASTING 155 MG/DL (70-100); SALICYLATE LEVEL < 1.7 MG/DL (5.0-30.0); SODIUM LEVEL 138 MEQ/L (136-145); THYROID STIMULATING HORMONE 0.866 uIU/ML (0.358-3.740); TOTAL PROTEIN 8.1 GM/DL (6.4-8.2)
[2021-11-10] MEDS ORDERED: POTASSIUM CHLORIDE 10MEQ SR TABLET PO ONE ×2 (03:20→05:30)
[2021-11-10] MEDS ORDERED: QUET300T2 PO (04:23)
[2021-11-10] MEDS ORDERED: TOPI100T9 PO (04:23)
[2021-11-10] MEDS ORDERED: ATOR80TA59 PO (04:23)
[2021-11-10] MEDS ORDERED: METF-839 PO (04:23)
[2021-11-10] MEDS ORDERED: HOME MED LIST COMPLETE! XX SCH (04:25)
[2021-11-10 05:00] LABS: RSV AMPLIFICATION NEGATIVE (NEGATIVE)
[2021-11-10 05:15] LABS: AMPHETAMINES LEVEL URINE POSITIVE (NEGATIVE); BARBITURATES URINE NEGATIVE (NEGATIVE); BENZODIAZEPINES URINE NEGATIVE (NEGATIVE); CANNABINOIDS URINE NEGATIVE (NEGATIVE); COCAINE METABOLITE URINE NEGATIVE (NEGATIVE); METHADONE URINE NEGATIVE (NEGATIVE); OPIATES URINE NEGATIVE (NEGATIVE); PHENCYCLIDINE URINE NEGATIVE (NEGATIVE)
[2021-11-10] MEDS ORDERED: QUEtiapine FUMARATE 200 MG TAB PO ONE ×2 (21:00)
[2021-11-10] MEDS ORDERED: TAMSULOSIN 0.4 MG CAP PO ONE (21:00)
[2021-11-10] MEDS ORDERED: GABAPENTIN 300 MG CAP PO ONE (21:00)
[2021-11-10] MEDS ORDERED: clonazePAM 0.5 MG TAB PO ONE (21:00)
[2021-11-10] MEDS ORDERED: TOPIRAMATE (TopAMAX) 100 MG TAB PO ONE (21:00)
[2021-11-10] MEDS ORDERED: BACLOFEN 10 MG TAB PO ONE (21:00)
[2021-11-10] MEDS ORDERED: HumuLIN R (REGULAR) INSULIN (NovoLIN R) **100U/ML** PER UNIT IV ONE (21:15)
[2021-11-10] MEDS: LEVEMIR (INSULIN DETEMIR) 1 UNITS/0.01ML SC SCH (21:24)
[2021-11-10] MEDS: clonazePAM 0.5 MG TAB PO SCH (21:28)
[2021-11-11] MEDS ORDERED: GLUCAGON INJ 1MG VIAL SC PRN (07:50)
[2021-11-11] MEDS ORDERED: GLUCOSE 4GM CHEW TABLET PO PRN (07:50)
[2021-11-11] MEDS ORDERED: DEXTROSE 50% 50 ML SYRINGE IV PRN (07:50)
[2021-11-11] MEDS ORDERED: LEVEMIR (INSULIN DETEMIR) 1 UNITS/0.01ML SC SCH (09:00)
[2021-11-11] MEDS: INSULIN LISPRO (NovoLOG) PER UNIT SC SCH ×3 (09:38→17:30)
[2021-11-11] MEDS: metFORMIN (GLUCOPHAGE) 500MG TAB PO SCH ×3 (11:08→18:00)
[2021-11-11] MEDS: TOPIRAMATE (TopAMAX) 100 MG TAB PO SCH ×3 (11:09→21:22)
[2021-11-11] MEDS: BACLOFEN 10 MG TAB PO SCH ×3 (11:09→21:22)
[2021-11-11] MEDS: ASPIRIN 81 MG CHEW TABLET PO SCH ×2 (11:09→11:21)
[2021-11-11] MEDS: TAMSULOSIN 0.4 MG CAP PO SCH ×2 (11:09→11:22)
[2021-11-11] MEDS: GABAPENTIN 300 MG CAP PO SCH ×4 (11:09→21:22)
[2021-11-11] MEDS ORDERED: QUEtiapine FUMARATE 200 MG TAB PO SCH (21:00)
[2021-11-11] MEDS ORDERED: ATORVASTATIN 20 MG TAB PO SCH (21:00)
[2021-11-11] MEDS: LEVEMIR (INSULIN DETEMIR) 1 UNITS/0.01ML SC SCH (21:00)
[2021-11-11] MEDS: clonazePAM 0.5 MG TAB PO SCH (21:29)
[2021-11-12] MEDS ORDERED: traZODone 50 MG TAB PO PRN (01:00)
[2021-11-12] MEDS ORDERED: MAALOX 30 ML SUSP *UDC PO PRN (01:00)
[2021-11-12] MEDS ORDERED: MOM 30ML SUSPENSION UDC PO PRN (01:00)
[2021-11-12] MEDS ORDERED: OLANZapine ORAL DISINTEGRATING TAB 5MG PO PRN (01:00)
[2021-11-12] MEDS ORDERED: ACETAMINOPHEN TAB 650MG DOSE (2X325MG) PO PRN (01:00)
[2021-11-12 02:42] VITALS: BP 99/73
[2021-11-12] MEDS ORDERED: GLUCOSE 4GM CHEW TABLET PO PRN (08:05)
[2021-11-12] MEDS ORDERED: DEXTROSE 50% 50 ML SYRINGE IV PRN (08:05)
[2021-11-12] MEDS ORDERED: GLUCAGON INJ 1MG VIAL SC PRN (08:05)
[2021-11-12] MEDS ORDERED: POTASSIUM CHLORIDE 10MEQ SR TABLET PO ONE (08:30)
[2021-11-12] MEDS ORDERED: OLANZapine 5 MG TAB PO SCH (09:00)
[2021-11-12] MEDS ORDERED: clonazePAM 0.5 MG TAB PO PRN (10:20)
[2021-11-12] MEDS: ASPIRIN 81 MG CHEW TABLET PO SCH (11:54)
[2021-11-12] MEDS: TOPIRAMATE (TopAMAX) 100 MG TAB PO SCH ×2 (11:54→22:16)
[2021-11-12] MEDS: metFORMIN (GLUCOPHAGE) 500MG TAB PO SCH ×2 (11:54→21:47)
[2021-11-12] MEDS: BACLOFEN 10 MG TAB PO SCH ×2 (11:54→21:47)
[2021-11-12] MEDS: TAMSULOSIN 0.4 MG CAP PO SCH (11:55)
[2021-11-12] MEDS: INSULIN LISPRO (NovoLOG) PER UNIT SC SCH ×3 (12:30→21:47)
[2021-11-12 15:21] LABS: HEMATOCRIT 43.1 % (42.0-52.0); HEMOGLOBIN 13.9 g/dl (13.5-17.5); MEAN CORPUSCULAR HEMOGLOBIN 29.2 pg (27.0-33.0); MEAN CORPUSCULAR HGB CONC 32.3 g/dl (32.0-36.5); MEAN CORPUSCULAR VOLUME 90.5 fl (80.0-96.0); PLATELET COUNT, AUTOMATED 242 10^3/uL (150-450); RED BLOOD COUNT 4.76 10^6/uL (4.30-6.10); WHITE BLOOD COUNT 12.5 10^3/uL (4.0-10.0)
[2021-11-12 15:59] LABS: BLOOD UREA NITROGEN 14 MG/DL (7-18); CALCIUM LEVEL 9.6 MG/DL (8.5-10.1); CARBON DIOXIDE LEVEL 29 MEQ/L (21-32); CHLORIDE LEVEL 104 MEQ/L (98-107); CREATININE FOR GFR 0.89 MG/DL (0.70-1.30); GLOMERULAR FILTRATION RATE > 60.0 (>56); GLUCOSE, FASTING 180 MG/DL (70-100); SODIUM LEVEL 137 MEQ/L (136-145)
[2021-11-12 16:00] LABS: ERYTHROCYTE SEDIMENTATION RATE 11 mm/hr (0-20)
[2021-11-12] MEDS: GABAPENTIN 300 MG CAP PO SCH ×2 (16:28→21:47)
[2021-11-12] MEDS ORDERED: ISOVUE-370 76% 100ML VIAL As Ordered ONE (16:36)
[2021-11-12 19:21] VITALS: BP 146/80
[2021-11-12] MEDS: ATORVASTATIN 20 MG TAB PO SCH (21:46)
[2021-11-12] MEDS: AUGMENTIN 875 MG TAB PO SCH (21:47)
[2021-11-12] MEDS: QUEtiapine FUMARATE 100 MG TAB PO SCH (21:48)
[2021-11-12] MEDS: DOXYCYCLINE HYCLATE 100MG TABLET PO SCH (21:48)
[2021-11-13] MEDS: INSULIN LISPRO (NovoLOG) PER UNIT SC SCH ×4 (06:42→20:43)
[2021-11-13 06:51] VITALS: BP 119/84
[2021-11-13] MEDS: metFORMIN (GLUCOPHAGE) 500MG TAB PO SCH ×2 (09:42→20:28)
[2021-11-13] MEDS: TOPIRAMATE (TopAMAX) 100 MG TAB PO SCH ×2 (09:42→20:29)
[2021-11-13] MEDS: AUGMENTIN 875 MG TAB PO SCH ×2 (09:42→20:28)
[2021-11-13] MEDS: DOXYCYCLINE HYCLATE 100MG TABLET PO SCH ×2 (09:42→20:29)
[2021-11-13] MEDS: ASPIRIN 81 MG CHEW TABLET PO SCH (09:42)
[2021-11-13] MEDS: TAMSULOSIN 0.4 MG CAP PO SCH (09:42)
[2021-11-13] MEDS: GABAPENTIN 300 MG CAP PO SCH ×3 (09:42→20:29)
[2021-11-13] MEDS: BACLOFEN 10 MG TAB PO SCH ×2 (09:42→20:28)
[2021-11-13] MEDS: BACITRACIN OINTMENT 30GM TUBE TOP SCH (09:43)
[2021-11-13] MEDS: GASTROGRAFIN SOLUTION 30ML PO SCH ×2 (15:07→15:08)
[2021-11-13 17:58] VITALS: BP 101/69
[2021-11-13] MEDS: ATORVASTATIN 20 MG TAB PO SCH (20:28)
[2021-11-13] MEDS: QUEtiapine FUMARATE 100 MG TAB PO SCH (20:29)
[2021-11-14 06:05] VITALS: BP 113/70
[2021-11-14] MEDS: INSULIN LISPRO (NovoLOG) PER UNIT SC SCH ×4 (06:48→22:43)
[2021-11-14] MEDS: GABAPENTIN 300 MG CAP PO SCH ×3 (09:16→22:46)
[2021-11-14] MEDS: metFORMIN (GLUCOPHAGE) 500MG TAB PO SCH ×2 (09:16→22:45)
[2021-11-14] MEDS: BACLOFEN 10 MG TAB PO SCH ×2 (09:16→22:48)
[2021-11-14] MEDS: AUGMENTIN 875 MG TAB PO SCH ×2 (09:16→22:44)
[2021-11-14] MEDS: TAMSULOSIN 0.4 MG CAP PO SCH (09:16)
[2021-11-14] MEDS: DOXYCYCLINE HYCLATE 100MG TABLET PO SCH ×2 (09:16→22:48)
[2021-11-14] MEDS: BACITRACIN OINTMENT 30GM TUBE TOP SCH (09:16)
[2021-11-14] MEDS: ASPIRIN 81 MG CHEW TABLET PO SCH (09:16)
[2021-11-14] MEDS: TOPIRAMATE (TopAMAX) 100 MG TAB PO SCH ×2 (09:16→22:48)
[2021-11-14 09:32] LABS: BASO # 0.1 10^3/uL (0.0-0.2); BASO % 0.5 % (0.0-1.0); EOS # 0.2 10^3/uL (0.0-0.5); EOS % 1.6 % (0.0-3.0); HEMATOCRIT 39.2 % (42.0-52.0); HEMOGLOBIN 12.7 g/dl (13.5-17.5); LYMPH # 1.5 10^3/uL (1.5-5.0); LYMPH % 13.3 % (24.0-44.0); MEAN CORPUSCULAR HEMOGLOBIN 29.4 pg (27.0-33.0); MEAN CORPUSCULAR HGB CONC 32.4 g/dl (32.0-36.5); MEAN CORPUSCULAR VOLUME 90.7 fl (80.0-96.0); MONO # 0.7 10^3/uL (0.0-0.8); MONO % 5.9 % (2.0-8.0); NEUTROPHILS # 8.6 10^3/uL (1.5-8.5); NEUTROPHILS % 78.2 % (36.0-66.0); PLATELET COUNT, AUTOMATED 232 10^3/uL (150-450); RED BLOOD COUNT 4.32 10^6/uL (4.30-6.10); WHITE BLOOD COUNT 10.9 10^3/uL (4.0-10.0)
[2021-11-14 09:35] LABS: HEMOGLOBIN A1c 12.8 %
[2021-11-14 09:40] LABS: BLOOD UREA NITROGEN 14 MG/DL (7-18); C REACTIVE PROTEIN QUANTITATIV 0.41 MG/DL (0.00-0.30); CALCIUM LEVEL 10.1 MG/DL (8.5-10.1); CARBON DIOXIDE LEVEL 27 MEQ/L (21-32); CHLORIDE LEVEL 105 MEQ/L (98-107); CREATININE FOR GFR 1.04 MG/DL (0.70-1.30); GLOMERULAR FILTRATION RATE > 60.0 (>56); GLUCOSE, FASTING 376 MG/DL (70-100); POTASSIUM SERUM 4.5 MEQ/L (3.5-5.1); SODIUM LEVEL 139 MEQ/L (136-145)
[2021-11-14 18:13] VITALS: BP 125/64
[2021-11-14] MEDS: QUEtiapine FUMARATE 100 MG TAB PO SCH (22:47)
[2021-11-14] MEDS: ATORVASTATIN 20 MG TAB PO SCH (22:47)
[2021-11-15 06:42] VITALS: BP 148/89
[2021-11-15] MEDS: INSULIN LISPRO (NovoLOG) PER UNIT SC SCH (07:07)
[2021-11-15] MEDS ORDERED: DOXY100T PO (08:37)
[2021-11-15] MEDS ORDERED: ATOR1TAB21 PO (08:37)
[2021-11-15] MEDS ORDERED: ASPI81CH8 PO (08:37)
[2021-11-15] MEDS ORDERED: HALO1TAB19 PO (08:37)
[2021-11-15] MEDS ORDERED: METF500T13 PO (08:37)
[2021-11-15] MEDS ORDERED: QUET100T2 PO (08:37)
[2021-11-15] MEDS ORDERED: BACL10TA2 PO (08:37)
[2021-11-15] MEDS ORDERED: FLOM0.4C39 PO (08:37)
[2021-11-15] MEDS ORDERED: BACI50OI TOP (08:37)
[2021-11-15] MEDS ORDERED: AMOX875T2 PO (08:37)
[2021-11-15] MEDS ORDERED: TOPA100T12 PO (08:37)
[2021-11-15] MEDS ORDERED: CLON0.5T2 PO (08:37)
[2021-11-15] MEDS ORDERED: GABA-282 PO (08:37)
[2021-11-15] MEDS: TOPIRAMATE (TopAMAX) 100 MG TAB PO SCH (08:40)
[2021-11-15] MEDS: BACLOFEN 10 MG TAB PO SCH (08:40)
[2021-11-15] MEDS: ASPIRIN 81 MG CHEW TABLET PO SCH (08:40)
[2021-11-15] MEDS: DOXYCYCLINE HYCLATE 100MG TABLET PO SCH (08:40)
[2021-11-15] MEDS: metFORMIN (GLUCOPHAGE) 500MG TAB PO SCH (08:40)
[2021-11-15] MEDS: AUGMENTIN 875 MG TAB PO SCH (08:40)
[2021-11-15] MEDS: TAMSULOSIN 0.4 MG CAP PO SCH (08:40)
[2021-11-15] MEDS: GABAPENTIN 300 MG CAP PO SCH (08:40)
[2021-11-15] MEDS: BACITRACIN OINTMENT 30GM TUBE TOP SCH (08:41)
== END 2021-11-15 10:23 | disposition home or self-care (01) | DRG 750 ==
LOC: M ED 22:33 → M ED INP 22:34 → UNDOADMIN 22:34 → M ED INP 11-12 01:06 → M PSY 11-12 02:42
PROVIDERS: ADMIT Student in an Organized Health Care Education/Training Program; ATTEND Psychiatry & Neurology Psychiatry
DX: F20.9 Schizophrenia, unspecified (principal); E11.9 Type 2 diabetes mellitus without complications; E55.9 Vitamin D deficiency, unspecified; N40.0 Benign prostatic hyperplasia without lower urinary tract symptoms; F15.159 Other stimulant abuse with stimulant-induced psychotic disorder, unspecified; F17.200 Nicotine dependence, unspecified, uncomplicated; K12.2 Cellulitis and abscess of mouth; Z79.82 Long term (current) use of aspirin; Z79.4 Long term (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 of insulin; Z79.899 Other long term (current) drug therapy; Z88.8 Allergy status to other drugs, medicaments and biological substances

== ENCOUNTER 2021-11-29 16:47 | Inpatient (IN) | payer MEDICAID, OTHER ==
[~2021-11-29] VITALS: Ht 170.2 cm; Wt 58.9 kg
[~2021-11-29 16:47] MED LIST changes: +AMOX875T2 PO; +ASPI81CH8 PO; +ATOR1TAB21 PO; +ATOR80TA59 PO; +BACI50OI TOP; +DOXY100T PO; +FLOM0.4C39 PO; +HALO1TAB19 PO; +METF-839 PO; +QUET100T2 PO; +QUEtiapine FUMARATE 200 MG TAB PO SCH; +TOPA100T12 PO; +TOPI100T9 PO
[2021-11-29] MEDS ORDERED: ceFAZolin SOD 1 GM in D5W MINI-BAG PLUS 50 ML IV ONE (18:35)
[2021-11-29 20:45] LABS: HEMATOCRIT 37.5 % (42.0-52.0); HEMOGLOBIN 12.4 g/dl (13.5-17.5); MEAN CORPUSCULAR HEMOGLOBIN 29.2 pg (27.0-33.0); MEAN CORPUSCULAR HGB CONC 33.1 g/dl (32.0-36.5); MEAN CORPUSCULAR VOLUME 88.2 fl (80.0-96.0); PLATELET COUNT, AUTOMATED 271 10^3/uL (150-450); RED BLOOD COUNT 4.25 10^6/uL (4.30-6.10); WHITE BLOOD COUNT 14.4 10^3/uL (4.0-10.0)
[2021-11-29 21:05] LABS: ERYTHROCYTE SEDIMENTATION RATE 62 mm/hr (0-20)
[2021-11-29 21:25] LABS: ACETAMINOPHEN LEVEL < 2.0 UG/ML (10.0-30.0); ALBUMIN 3.3 GM/DL (3.2-5.2); ALT/SGPT 15 U/L (12-78); BILIRUBIN,DIRECT 0.2 MG/DL (0.0-0.2); BILIRUBIN,TOTAL 0.6 MG/DL (0.2-1.0); BLOOD UREA NITROGEN 15 MG/DL (7-18); CALCIUM LEVEL 9.4 MG/DL (8.5-10.1); CARBON DIOXIDE LEVEL 17 MEQ/L (21-32); CHLORIDE LEVEL 103 MEQ/L (98-107); CREATININE FOR GFR 0.96 MG/DL (0.70-1.30); ETHYL ALCOHOL (ETHANOL) < 0.003 % (0.000-0.010); GLOMERULAR FILTRATION RATE > 60.0 (>56); GLUCOSE, FASTING 291 MG/DL (70-100); POTASSIUM SERUM 4.5 MEQ/L (3.5-5.1); SODIUM LEVEL 136 MEQ/L (136-145); TOTAL PROTEIN 8.1 GM/DL (6.4-8.2)
[2021-11-29 21:26] LABS: C REACTIVE PROTEIN QUANTITATIV 6.09 MG/DL (0.00-0.30); THYROID STIMULATING HORMONE 0.332 uIU/ML (0.358-3.740)
[2021-11-29] MEDS ORDERED: ASPI81CH48 PO (21:48)
[2021-11-29] MEDS ORDERED: ATOR80TA59 PO (21:48)
[2021-11-29] MEDS ORDERED: BACI500O21 TOP (21:50)
[2021-11-29] MEDS ORDERED: TAMS1CAP17 PO (21:50)
[2021-11-29] MEDS ORDERED: TOPI100T9 PO (21:50)
[2021-11-29] MEDS ORDERED: QUET300T2 PO (21:50)
[2021-11-29] MEDS ORDERED: GABA-282 PO (21:52)
[2021-11-29] MEDS ORDERED: HALO1TAB19 PO (21:52)
[2021-11-29] MEDS ORDERED: METF500T13 PO (21:52)
[2021-11-29] MEDS ORDERED: BACL10TA2 PO (21:52)
[2021-11-29] MEDS ORDERED: HOME MED LIST COMPLETE! XX SCH (21:55)
[2021-11-29 21:56] LABS: FREE T4 1.23 NG/DL (0.76-1.46)
[2021-11-29] MEDS ORDERED: GLUCOSE 4GM CHEW TABLET PO PRN (22:25)
[2021-11-29] MEDS ORDERED: DEXTROSE 50% 50 ML SYRINGE IV PRN (22:25)
[2021-11-29] MEDS ORDERED: MORPHINE 2 MG/ML 1ML VIAL IV ONE (22:25)
[2021-11-29] MEDS ORDERED: ACETAMINOPHEN TAB 650MG DOSE (2X325MG) PO PRN (22:25)
[2021-11-29] MEDS ORDERED: GLUCAGON INJ 1MG VIAL SC PRN (22:25)
[2021-11-29 23:06] LABS: RSV AMPLIFICATION NEGATIVE (NEGATIVE)
[2021-11-29] MEDS ORDERED: clonazePAM 0.5 MG TAB PO PRN (23:30)
[2021-11-30] MEDS: BACLOFEN 10 MG TAB PO SCH ×3 (00:52→21:06)
[2021-11-30] MEDS: TOPIRAMATE (TopAMAX) 100 MG TAB PO SCH ×3 (00:52→21:06)
[2021-11-30] MEDS: GABAPENTIN 300 MG CAP PO SCH ×4 (00:52→21:06)
[2021-11-30 01:00] VITALS: BP 148/85
[2021-11-30] MEDS: QUEtiapine FUMARATE 200 MG TAB PO SCH ×3 (01:38→21:06)
[2021-11-30] MEDS: KETOROLAC 30 MG/ML 1ML VIAL IV PRN (02:01)
[2021-11-30] MEDS ORDERED: NS 1,000 ML IV SCH (04:25)
[2021-11-30] MEDS: ceFAZolin SOD 2 GM in IV 1 EA IV SCH ×3 (04:52→21:07)
[2021-11-30 05:46] VITALS: BP 106/58
[2021-11-30 06:30] LABS: BASO % 0.3 % (0.0-1.0); EOS % 0.1 % (0.0-3.0); HEMATOCRIT 32.3 % (42.0-52.0); LYMPH # 1.7 10^3/uL (1.5-5.0); LYMPH % 16.4 % (24.0-44.0); MEAN CORPUSCULAR HEMOGLOBIN 29.5 pg (27.0-33.0); MEAN CORPUSCULAR HGB CONC 34.1 g/dl (32.0-36.5); MEAN CORPUSCULAR VOLUME 86.6 fl (80.0-96.0); NEUTROPHILS # 7.3 10^3/uL (1.5-8.5); NEUTROPHILS % 72.9 % (36.0-66.0); PLATELET COUNT, AUTOMATED 250 10^3/uL (150-450); RED BLOOD COUNT 3.73 10^6/uL (4.30-6.10); WHITE BLOOD COUNT 10.1 10^3/uL (4.0-10.0)
[2021-11-30 06:55] LABS: BLOOD UREA NITROGEN 16 MG/DL (7-18); CALCIUM LEVEL 8.7 MG/DL (8.5-10.1); CARBON DIOXIDE LEVEL 19 MEQ/L (21-32); CHLORIDE LEVEL 103 MEQ/L (98-107); CREATININE FOR GFR 1.01 MG/DL (0.70-1.30); GLOMERULAR FILTRATION RATE > 60.0 (>56); GLUCOSE, FASTING 312 MG/DL (70-100); POTASSIUM SERUM 4.1 MEQ/L (3.5-5.1); SODIUM LEVEL 135 MEQ/L (136-145)
[2021-11-30] MEDS: INSULIN LISPRO (NovoLOG) PER UNIT SC SCH ×4 (10:54→21:00)
[2021-11-30] MEDS: TAMSULOSIN 0.4 MG CAP PO SCH (11:42)
[2021-11-30] MEDS: LACTOBACILLUS ACIDOPHILUS CAP (BACID) PO SCH (11:42)
[2021-11-30] MEDS: ENOXAPARIN 40MG/0.4ML SYRINGE (J1650 PER 10MG) SC SCH (11:43)
[2021-11-30] MEDS: LEVEMIR (INSULIN DETEMIR) 1 UNITS/0.01ML SC SCH (11:43)
[2021-11-30] MEDS: ASPIRIN 81 MG CHEW TABLET PO SCH (11:43)
[2021-11-30] MEDS ORDERED: MIRALAX *UNIT DOSE* 17GM PACKET PO PRN (12:05)
[2021-11-30 14:00] VITALS: BP 113/76
[2021-11-30 18:00] VITALS: BP 120/76
[2021-11-30] MEDS: NS 1,000 ML IV SCH (18:19)
[2021-11-30] MEDS: ATORVASTATIN 20 MG TAB PO SCH (21:05)
[2021-12-01] VITALS (8 sets, daily range): BP systolic 90–133; BP diastolic 60–85
[2021-12-01] MEDS: ceFAZolin SOD 2 GM in IV 1 EA IV SCH ×3 (05:11→19:48)
[2021-12-01 06:17] LABS: HEMATOCRIT 37.2 % (42.0-52.0); HEMOGLOBIN 12.3 g/dl (13.5-17.5); MEAN CORPUSCULAR HEMOGLOBIN 28.6 pg (27.0-33.0); MEAN CORPUSCULAR HGB CONC 33.1 g/dl (32.0-36.5); MEAN CORPUSCULAR VOLUME 86.5 fl (80.0-96.0); PLATELET COUNT, AUTOMATED 272 10^3/uL (150-450); WHITE BLOOD COUNT 7.1 10^3/uL (4.0-10.0)
[2021-12-01 06:54] LABS: ALBUMIN 2.7 GM/DL (3.2-5.2); ALT/SGPT 15 U/L (12-78); BILIRUBIN,TOTAL 0.2 MG/DL (0.2-1.0); BLOOD UREA NITROGEN 13 MG/DL (7-18); CALCIUM LEVEL 9.1 MG/DL (8.5-10.1); CARBON DIOXIDE LEVEL 23 MEQ/L (21-32); CHLORIDE LEVEL 111 MEQ/L (98-107); CREATININE FOR GFR 0.82 MG/DL (0.70-1.30); GLOMERULAR FILTRATION RATE > 60.0 (>56); GLUCOSE, FASTING 108 MG/DL (70-100); POTASSIUM SERUM 3.1 MEQ/L (3.5-5.1); SODIUM LEVEL 142 MEQ/L (136-145); TOTAL PROTEIN 7.4 GM/DL (6.4-8.2)
[2021-12-01] MEDS: INSULIN LISPRO (NovoLOG) PER UNIT SC SCH ×4 (07:24→21:00)
[2021-12-01] MEDS ORDERED: POTASSIUM CHLORIDE 10MEQ SR TABLET PO ONE (07:50)
[2021-12-01] MEDS: QUEtiapine FUMARATE 200 MG TAB PO SCH ×2 (09:53→19:48)
[2021-12-01] MEDS: BACLOFEN 10 MG TAB PO SCH ×2 (09:53→19:48)
[2021-12-01] MEDS: TOPIRAMATE (TopAMAX) 100 MG TAB PO SCH ×2 (09:53→19:47)
[2021-12-01] MEDS: LACTOBACILLUS ACIDOPHILUS CAP (BACID) PO SCH (09:53)
[2021-12-01] MEDS: TAMSULOSIN 0.4 MG CAP PO SCH (09:53)
[2021-12-01] MEDS: GABAPENTIN 300 MG CAP PO SCH ×3 (09:53→19:48)
[2021-12-01] MEDS: ASPIRIN 81 MG CHEW TABLET PO SCH (09:53)
[2021-12-01] MEDS: ENOXAPARIN 40MG/0.4ML SYRINGE (J1650 PER 10MG) SC SCH (09:54)
[2021-12-01] MEDS: NS 1,000 ML IV SCH ×2 (10:50→16:25)
[2021-12-01 12:36] LABS: AMPHETAMINES LEVEL URINE POSITIVE (NEGATIVE); BARBITURATES URINE NEGATIVE (NEGATIVE); BENZODIAZEPINES URINE NEGATIVE (NEGATIVE); CANNABINOIDS URINE NEGATIVE (NEGATIVE); COCAINE METABOLITE URINE POSITIVE (NEGATIVE); METHADONE URINE NEGATIVE (NEGATIVE); OPIATES URINE NEGATIVE (NEGATIVE); PHENCYCLIDINE URINE NEGATIVE (NEGATIVE)
[2021-12-01] MEDS: LEVEMIR (INSULIN DETEMIR) 1 UNITS/0.01ML SC SCH (12:41)
[2021-12-01] MEDS ORDERED: NS 1,000 ML IV ONE (16:00)
[2021-12-01] MEDS: ATORVASTATIN 20 MG TAB PO SCH (19:47)
[2021-12-02] VITALS (8 sets, daily range): BP systolic 99–114; BP diastolic 58–75
[2021-12-02] MEDS: NS 1,000 ML IV SCH (02:27)
[2021-12-02] MEDS: ceFAZolin SOD 2 GM in IV 1 EA IV SCH (05:10)
[2021-12-02 07:11] LABS: HEMATOCRIT 37.1 % (42.0-52.0); HEMOGLOBIN 11.9 g/dl (13.5-17.5); MEAN CORPUSCULAR HEMOGLOBIN 28.3 pg (27.0-33.0); MEAN CORPUSCULAR HGB CONC 32.1 g/dl (32.0-36.5); MEAN CORPUSCULAR VOLUME 88.3 fl (80.0-96.0); PLATELET COUNT, AUTOMATED 283 10^3/uL (150-450); WHITE BLOOD COUNT 5.7 10^3/uL (4.0-10.0)
[2021-12-02 07:13] LABS: ALBUMIN 2.3 GM/DL (3.2-5.2); ALT/SGPT 11 U/L (12-78); BILIRUBIN,TOTAL 0.2 MG/DL (0.2-1.0); BLOOD UREA NITROGEN 11 MG/DL (7-18); CALCIUM LEVEL 9.1 MG/DL (8.5-10.1); CARBON DIOXIDE LEVEL 23 MEQ/L (21-32); CHLORIDE LEVEL 117 MEQ/L (98-107); CREATININE FOR GFR 0.68 MG/DL (0.70-1.30); GLOMERULAR FILTRATION RATE > 60.0 (>56); GLUCOSE, FASTING 248 MG/DL (70-100); SODIUM LEVEL 146 MEQ/L (136-145); TOTAL PROTEIN 6.2 GM/DL (6.4-8.2)
[2021-12-02] MEDS: NS 0.45% 1,000 ML IV SCH ×2 (09:09→21:46)
[2021-12-02] MEDS: TOPIRAMATE (TopAMAX) 100 MG TAB PO SCH ×2 (09:10→21:47)
[2021-12-02] MEDS: LACTOBACILLUS ACIDOPHILUS CAP (BACID) PO SCH (09:10)
[2021-12-02] MEDS: ASPIRIN 81 MG CHEW TABLET PO SCH (09:10)
[2021-12-02] MEDS: BACLOFEN 10 MG TAB PO SCH ×2 (09:10→21:47)
[2021-12-02] MEDS: GABAPENTIN 300 MG CAP PO SCH ×3 (09:10→21:47)
[2021-12-02] MEDS: LEVEMIR (INSULIN DETEMIR) 1 UNITS/0.01ML SC SCH (09:11)
[2021-12-02] MEDS: INSULIN LISPRO (NovoLOG) PER UNIT SC SCH ×4 (09:11→21:48)
[2021-12-02] MEDS: QUEtiapine FUMARATE 200 MG TAB PO SCH ×2 (09:11→21:47)
[2021-12-02] MEDS: LevoFLOXacin IV 750 MG in IV 1 EA IV SCH (09:12)
[2021-12-02] MEDS: ENOXAPARIN 40MG/0.4ML SYRINGE (J1650 PER 10MG) SC SCH (09:12)
[2021-12-02] MEDS ORDERED: LIDOCAINE 1% MDV 20ML VIAL As Ordered ONE (12:10)
[2021-12-02] MEDS ORDERED: SODIUM CHLORIDE 0.9% INJ 10 ML SYR IV PRN (15:10)
[2021-12-02] MEDS: SODIUM CHLORIDE 0.9% INJ 10 ML SYR IV SCH (18:00)
[2021-12-02] MEDS: ATORVASTATIN 20 MG TAB PO SCH (21:47)
[2021-12-02] MEDS: KETOROLAC 30 MG/ML 1ML VIAL IV PRN (21:48)
[2021-12-03] MEDS: SODIUM CHLORIDE 0.9% INJ 10 ML SYR IV SCH ×2 (05:04→16:52)
[2021-12-03 05:11] VITALS: BP 110/78
[2021-12-03] MEDS: NS 0.45% 1,000 ML IV SCH ×2 (05:38→19:45)
[2021-12-03 06:45] LABS: HEMATOCRIT 33.6 % (42.0-52.0); HEMOGLOBIN 11.4 g/dl (13.5-17.5); MEAN CORPUSCULAR HEMOGLOBIN 29.6 pg (27.0-33.0); MEAN CORPUSCULAR HGB CONC 33.9 g/dl (32.0-36.5); MEAN CORPUSCULAR VOLUME 87.3 fl (80.0-96.0); PLATELET COUNT, AUTOMATED 272 10^3/uL (150-450); RED BLOOD COUNT 3.85 10^6/uL (4.30-6.10); WHITE BLOOD COUNT 5.8 10^3/uL (4.0-10.0)
[2021-12-03 07:22] LABS: ALBUMIN 2.4 GM/DL (3.2-5.2); ALT/SGPT 27 U/L (12-78); BILIRUBIN,TOTAL 0.2 MG/DL (0.2-1.0); BLOOD UREA NITROGEN 11 MG/DL (7-18); CALCIUM LEVEL 8.5 MG/DL (8.5-10.1); CARBON DIOXIDE LEVEL 23 MEQ/L (21-32); CHLORIDE LEVEL 108 MEQ/L (98-107); CREATININE FOR GFR 0.82 MG/DL (0.70-1.30); GLOMERULAR FILTRATION RATE > 60.0 (>56); GLUCOSE, FASTING 348 MG/DL (70-100); POTASSIUM SERUM 4.3 MEQ/L (3.5-5.1); SODIUM LEVEL 136 MEQ/L (136-145); TOTAL PROTEIN 6.3 GM/DL (6.4-8.2)
[2021-12-03] MEDS: BACLOFEN 10 MG TAB PO SCH ×2 (08:38→20:08)
[2021-12-03] MEDS: ASPIRIN 81 MG CHEW TABLET PO SCH (08:38)
[2021-12-03] MEDS: LACTOBACILLUS ACIDOPHILUS CAP (BACID) PO SCH (08:39)
[2021-12-03] MEDS: TOPIRAMATE (TopAMAX) 100 MG TAB PO SCH ×2 (08:39→20:08)
[2021-12-03] MEDS: QUEtiapine FUMARATE 200 MG TAB PO SCH ×2 (08:39→20:08)
[2021-12-03] MEDS: GABAPENTIN 300 MG CAP PO SCH ×3 (08:39→20:07)
[2021-12-03] MEDS: INSULIN LISPRO (NovoLOG) PER UNIT SC SCH ×4 (08:40→20:25)
[2021-12-03] MEDS: ENOXAPARIN 40MG/0.4ML SYRINGE (J1650 PER 10MG) SC SCH (08:40)
[2021-12-03] MEDS: LEVEMIR (INSULIN DETEMIR) 1 UNITS/0.01ML SC SCH (08:40)
[2021-12-03] MEDS: LevoFLOXacin IV 750 MG in IV 1 EA IV SCH (09:11)
[2021-12-03 14:00] VITALS: BP 110/75
[2021-12-03] MEDS: ATORVASTATIN 20 MG TAB PO SCH (20:07)
[2021-12-03 22:00] VITALS: BP 109/74
[2021-12-04] MEDS: SODIUM CHLORIDE 0.9% INJ 10 ML SYR IV SCH ×2 (04:10→16:35)
[2021-12-04 06:00] VITALS: BP 108/77
[2021-12-04 06:30] LABS: HEMATOCRIT 35.3 % (42.0-52.0); HEMOGLOBIN 11.7 g/dl (13.5-17.5); MEAN CORPUSCULAR HEMOGLOBIN 28.7 pg (27.0-33.0); MEAN CORPUSCULAR HGB CONC 33.1 g/dl (32.0-36.5); MEAN CORPUSCULAR VOLUME 86.7 fl (80.0-96.0); PLATELET COUNT, AUTOMATED 321 10^3/uL (150-450); RED BLOOD COUNT 4.07 10^6/uL (4.30-6.10); WHITE BLOOD COUNT 11.4 10^3/uL (4.0-10.0)
[2021-12-04 07:00] LABS: ALBUMIN 2.6 GM/DL (3.2-5.2); ALT/SGPT 24 U/L (12-78); BILIRUBIN,TOTAL 0.2 MG/DL (0.2-1.0); BLOOD UREA NITROGEN 11 MG/DL (7-18); CALCIUM LEVEL 9.3 MG/DL (8.5-10.1); CARBON DIOXIDE LEVEL 25 MEQ/L (21-32); CHLORIDE LEVEL 109 MEQ/L (98-107); CREATININE FOR GFR 0.74 MG/DL (0.70-1.30); GLOMERULAR FILTRATION RATE > 60.0 (>56); GLUCOSE, FASTING 299 MG/DL (70-100); POTASSIUM SERUM 4.4 MEQ/L (3.5-5.1); SODIUM LEVEL 139 MEQ/L (136-145); TOTAL PROTEIN 6.6 GM/DL (6.4-8.2)
[2021-12-04] MEDS: INSULIN LISPRO (NovoLOG) PER UNIT SC SCH ×4 (07:24→20:35)
[2021-12-04] MEDS: LEVEMIR (INSULIN DETEMIR) 1 UNITS/0.01ML SC SCH (08:56)
[2021-12-04] MEDS: LevoFLOXacin IV 750 MG in IV 1 EA IV SCH (09:28)
[2021-12-04 10:45] VITALS: BP 122/86
[2021-12-04] MEDS ORDERED: KETOROLAC 30 MG/ML 1ML VIAL IV ONE (11:40)
[2021-12-04] MEDS: ENOXAPARIN 40MG/0.4ML SYRINGE (J1650 PER 10MG) SC SCH (12:22)
[2021-12-04] MEDS: GABAPENTIN 300 MG CAP PO SCH ×3 (12:37→20:35)
[2021-12-04] MEDS ORDERED: fentaNYL 100 MCG/2 ML INJECTION As Ordered ONE (13:17)
[2021-12-04] MEDS ORDERED: MIDAZOLAM INJ 2MG/2ML VIAL (J2250 PER 1MG) As Ordered ONE (13:17)
[2021-12-04] MEDS ORDERED: ONDANSETRON 4MG/2ML VIAL As Ordered ONE (13:17)
[2021-12-04] MEDS ORDERED: propofoL 200 MG/20 ML VIAL As Ordered ONE (13:17)
[2021-12-04] MEDS ORDERED: LIDOCAINE 2% 100MG/5ML SDV (FOR ANES.) As Ordered ONE (13:17)
[2021-12-04] MEDS ORDERED: BUPIVACAINE HCL 0.5% 30ML VIAL As Ordered ONE (13:35)
[2021-12-04] MEDS ORDERED: LIDOCAINE 1% MDV 20ML VIAL As Ordered ONE (13:35)
[2021-12-04] MEDS: QUEtiapine FUMARATE 200 MG TAB PO SCH ×2 (15:02→20:33)
[2021-12-04] MEDS: TOPIRAMATE (TopAMAX) 100 MG TAB PO SCH ×2 (15:02→20:34)
[2021-12-04] MEDS: BACLOFEN 10 MG TAB PO SCH ×2 (15:02→20:32)
[2021-12-04] MEDS ORDERED: PHENYLephrine 500MCG 5ML (100MCG/ML) SYRINGE As Ordered ONE (15:10)
[2021-12-04] MEDS ORDERED: fentaNYL 100 MCG/2 ML INJECTION IV PRN (15:40)
[2021-12-04] MEDS ORDERED: oxyCODONE 5MG TAB PO PRN (15:40)
[2021-12-04] MEDS ORDERED: ONDANSETRON 4MG/2ML VIAL IV PRN (15:40)
[2021-12-04] MEDS ORDERED: LR 1,000 ML IV SCH (15:40)
[2021-12-04 16:00] VITALS: BP 129/92
[2021-12-04 16:30] VITALS: BP 131/89
[2021-12-04] MEDS: ASPIRIN 81 MG CHEW TABLET PO SCH (16:34)
[2021-12-04] MEDS: LACTOBACILLUS ACIDOPHILUS CAP (BACID) PO SCH (16:34)
[2021-12-04 17:30] VITALS: BP 130/89
[2021-12-04] MEDS ORDERED: NICOTINE POLACRILEX 2 MG GUM PO PRN (18:15)
[2021-12-04 18:30] VITALS: BP 120/82
[2021-12-04] MEDS: KETOROLAC 30 MG/ML 1ML VIAL IV PRN (18:38)
[2021-12-04] MEDS: ATORVASTATIN 20 MG TAB PO SCH (20:32)
[2021-12-04] MEDS ORDERED: RAMELTEON 8 MG TAB (ROZEREM) PO PRN (20:35)
[2021-12-04] MEDS ORDERED: clonazePAM 0.5 MG TAB PO ONE (20:35)
[2021-12-04] MEDS ORDERED: NICOTINE 14 MG/24 HR TRANSDERMAL TD SCH (21:00)
== END 2021-12-04 22:30 | disposition left against medical advice (07) | DRG 383 ==
LOC: M ED 16:47 → M ED INP 22:24 → ENRESERV 23:38 → M MSPAV 11-30
PROVIDERS: ADMIT Family Medicine; ATTEND General Practice
PROC: 0H9LXZZ Drainage of Left Lower Leg Skin, External Approach (ICD-10-PCS; 2021-11-29)
PROC: 05H933Z Insertion of Infusion Device into Right Brachial Vein, Percutaneous Approach (ICD-10-PCS; principal; 2021-12-02 12:00)
PROC: 0H9LXZZ Drainage of Left Lower Leg Skin, External Approach (ICD-10-PCS; 2021-12-04)
DX: L02.612 Cutaneous abscess of left foot (principal); M25.572 Pain in left ankle and joints of left foot; F20.0 Paranoid schizophrenia; N40.0 Benign prostatic hyperplasia without lower urinary tract symptoms; E11.42 Type 2 diabetes mellitus with diabetic polyneuropathy; Z79.82 Long term (current) use of aspirin; Z79.4 Long term (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 of insulin; Z79.84 Long term (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 of oral hypoglycemic drugs; Z79.899 Other long term (current) drug therapy; Z88.8 Allergy status to other drugs, medicaments and biological substances; E55.9 Vitamin D deficiency, unspecified; M19.90 Unspecified osteoarthritis, unspecified site; Z91.51 Personal history of suicidal behavior; I10 Essential (primary) hypertension; F17.210 Nicotine dependence, cigarettes, uncomplicated; Z20.822 Contact with and (suspected) exposure to COVID-19; B96.1 Klebsiella pneumoniae [K. pneumoniae] as the cause of diseases classified elsewhere; L03.116 Cellulitis of left lower limb; I69.391 Dysphagia following cerebral infarction; E87.6 Hypokalemia; R45.851 Suicidal ideations; I95.9 Hypotension, unspecified

== ENCOUNTER 2021-12-05 09:19 | Inpatient (IN) | payer OTHER ==
[~2021-12-05] VITALS: Ht 170.2 cm; Wt 66.1 kg
[~2021-12-05 09:19] MED LIST changes: +BACI500O21 TOP; -QUEtiapine FUMARATE 200 MG TAB PO SCH
[2021-12-05] MEDS ORDERED: LevoFLOXacin IV 500 MG in IV 1 EA IV ONE (10:40)
[2021-12-05 11:12] LABS: BASO % 0.3 % (0.0-1.0); EOS # 0.1 10^3/uL (0.0-0.5); EOS % 0.8 % (0.0-3.0); HEMATOCRIT 37.7 % (42.0-52.0); HEMOGLOBIN 12.3 g/dl (13.5-17.5); LYMPH # 1.1 10^3/uL (1.5-5.0); LYMPH % 8.3 % (24.0-44.0); MEAN CORPUSCULAR HEMOGLOBIN 28.9 pg (27.0-33.0); MEAN CORPUSCULAR HGB CONC 32.6 g/dl (32.0-36.5); MEAN CORPUSCULAR VOLUME 88.5 fl (80.0-96.0); MONO # 0.6 10^3/uL (0.0-0.8); MONO % 4.5 % (2.0-8.0); NEUTROPHILS # 11.3 10^3/uL (1.5-8.5); NEUTROPHILS % 85.5 % (36.0-66.0); PLATELET COUNT, AUTOMATED 353 10^3/uL (150-450); RED BLOOD COUNT 4.26 10^6/uL (4.30-6.10); WHITE BLOOD COUNT 13.2 10^3/uL (4.0-10.0)
[2021-12-05 11:36] LABS: ERYTHROCYTE SEDIMENTATION RATE 49 mm/hr (0-20)
[2021-12-05 11:37] LABS: ALBUMIN 3.1 GM/DL (3.2-5.2); ALT/SGPT 26 U/L (12-78); BILIRUBIN,TOTAL 0.2 MG/DL (0.2-1.0); BLOOD UREA NITROGEN 15 MG/DL (7-18); C REACTIVE PROTEIN QUANTITATIV 0.55 MG/DL (0.00-0.30); CALCIUM LEVEL 8.9 MG/DL (8.5-10.1); CARBON DIOXIDE LEVEL 28 MEQ/L (21-32); CHLORIDE LEVEL 104 MEQ/L (98-107); CREATININE FOR GFR 1.19 MG/DL (0.70-1.30); GLOMERULAR FILTRATION RATE > 60.0 (>56); GLUCOSE, FASTING 537 MG/DL (70-100); POTASSIUM SERUM 4.8 MEQ/L (3.5-5.1); SODIUM LEVEL 135 MEQ/L (136-145); TOTAL PROTEIN 7.4 GM/DL (6.4-8.2); VALPROIC ACID (DEPAKOTE) < 3.0 UG/ML (50.0-100.0)
[2021-12-05 11:41] LABS: RSV AMPLIFICATION NEGATIVE (NEGATIVE)
[2021-12-05] MEDS ORDERED: HumuLIN R (REGULAR) INSULIN (NovoLIN R) **100U/ML** PER UNIT IV ONE (12:00)
[2021-12-05] MEDS ORDERED: DEXTROSE 50% 50 ML SYRINGE IV PRN (12:35)
[2021-12-05] MEDS ORDERED: MOM 30ML SUSPENSION UDC PO PRN (12:35)
[2021-12-05] MEDS ORDERED: GLUCAGON INJ 1MG VIAL SC PRN (12:35)
[2021-12-05] MEDS ORDERED: GLUCOSE 4GM CHEW TABLET PO PRN (12:35)
[2021-12-05] MEDS ORDERED: MAALOX 30 ML SUSP *UDC PO PRN (12:35)
[2021-12-05] MEDS ORDERED: HOME MED LIST COMPLETE! XX SCH (12:45)
[2021-12-05] MEDS: INSULIN LISPRO (NovoLOG) PER UNIT SC SCH ×2 (13:03→18:28)
[2021-12-05] MEDS ORDERED: clonazePAM 0.5 MG TAB PO PRN (15:00)
[2021-12-05 15:30] VITALS: BP 128/77
[2021-12-05] MEDS: GABAPENTIN 300 MG CAP PO SCH ×2 (15:43→20:44)
[2021-12-05] MEDS: ACETAMINOPHEN TAB 650MG DOSE (2X325MG) PO PRN ×2 (15:43→21:03)
[2021-12-05] MEDS: TOPIRAMATE (TopAMAX) 100 MG TAB PO SCH (20:44)
[2021-12-05] MEDS: QUEtiapine FUMARATE 200 MG TAB PO SCH (20:44)
[2021-12-05] MEDS: BACLOFEN 10 MG TAB PO SCH (20:44)
[2021-12-05] MEDS ORDERED: LEVEMIR (INSULIN DETEMIR) 1 UNITS/0.01ML SC SCH (21:00)
[2021-12-05] MEDS ORDERED: INSULIN LISPRO (NovoLOG) PER UNIT SC SCH (21:00)
[2021-12-05] MEDS ORDERED: ATORVASTATIN 20 MG TAB PO SCH (21:00)
[2021-12-05 22:00] VITALS: BP 111/63
[2021-12-06 06:00] VITALS: BP 110/70
[2021-12-06] MEDS ORDERED: LevoFLOXacin 750 MG TABLET PO SCH (06:00)
[2021-12-06 06:27] LABS: BASO % 0.5 % (0.0-1.0); EOS # 0.2 10^3/uL (0.0-0.5); EOS % 2.9 % (0.0-3.0); HEMATOCRIT 39.5 % (42.0-52.0); HEMOGLOBIN 12.4 g/dl (13.5-17.5); LYMPH # 2.3 10^3/uL (1.5-5.0); LYMPH % 29.7 % (24.0-44.0); MEAN CORPUSCULAR HEMOGLOBIN 28.4 pg (27.0-33.0); MEAN CORPUSCULAR HGB CONC 31.4 g/dl (32.0-36.5); MEAN CORPUSCULAR VOLUME 90.6 fl (80.0-96.0); MONO # 0.7 10^3/uL (0.0-0.8); MONO % 8.5 % (2.0-8.0); NEUTROPHILS # 4.4 10^3/uL (1.5-8.5); NEUTROPHILS % 57.7 % (36.0-66.0); PLATELET COUNT, AUTOMATED 292 10^3/uL (150-450); RED BLOOD COUNT 4.36 10^6/uL (4.30-6.10); WHITE BLOOD COUNT 7.7 10^3/uL (4.0-10.0)
[2021-12-06] MEDS: ACETAMINOPHEN TAB 650MG DOSE (2X325MG) PO PRN (06:43)
[2021-12-06 07:01] LABS: BLOOD UREA NITROGEN 13 MG/DL (7-18); CALCIUM LEVEL 9.2 MG/DL (8.5-10.1); CARBON DIOXIDE LEVEL 25 MEQ/L (21-32); CHLORIDE LEVEL 110 MEQ/L (98-107); CREATININE FOR GFR 0.88 MG/DL (0.70-1.30); GLOMERULAR FILTRATION RATE > 60.0 (>56); GLUCOSE, FASTING 189 MG/DL (70-100); MAGNESIUM LEVEL 2.2 MG/DL (1.8-2.4); SODIUM LEVEL 140 MEQ/L (136-145)
[2021-12-06] MEDS ORDERED: ENOXAPARIN 40MG/0.4ML SYRINGE (J1650 PER 10MG) SC SCH (09:00)
[2021-12-06] MEDS ORDERED: TAMSULOSIN 0.4 MG CAP PO SCH (09:00)
[2021-12-06] MEDS ORDERED: ASPIRIN 81 MG CHEW TABLET PO SCH (09:00)
[2021-12-06] MEDS: QUEtiapine FUMARATE 200 MG TAB PO SCH (09:04)
[2021-12-06] MEDS: BACLOFEN 10 MG TAB PO SCH (09:04)
[2021-12-06] MEDS: TOPIRAMATE (TopAMAX) 100 MG TAB PO SCH (09:04)
[2021-12-06] MEDS: GABAPENTIN 300 MG CAP PO SCH (09:04)
[2021-12-06] MEDS: INSULIN LISPRO (NovoLOG) PER UNIT SC SCH (09:05)
[2021-12-06] MEDS ORDERED: LEVO750T13 PO (09:30)
[2021-12-06] MEDS ORDERED: KETOROLAC 30 MG/ML 1ML VIAL IV ONE (10:00)
== END 2021-12-06 11:08 | disposition home or self-care (01) | DRG 383 ==
LOC: M ED 09:19 → EDBD 09:19 → M ED INP 12:35 → ENRESERV 14:24 → M MSPAV 15:38
PROVIDERS: ADMIT Family Medicine; ATTEND Family Medicine
DX: L03.116 Cellulitis of left lower limb (principal); E11.40 Type 2 diabetes mellitus with diabetic neuropathy, unspecified; F20.0 Paranoid schizophrenia; R13.10 Dysphagia, unspecified; E55.9 Vitamin D deficiency, unspecified; M19.90 Unspecified osteoarthritis, unspecified site; N40.0 Benign prostatic hyperplasia without lower urinary tract symptoms; I10 Essential (primary) hypertension; B19.20 Unspecified viral hepatitis C without hepatic coma; F15.10 Other stimulant abuse, uncomplicated; F17.210 Nicotine dependence, cigarettes, uncomplicated; I69.391 Dysphagia following cerebral infarction; Z79.82 Long term (current) use of aspirin; Z79.84 Long term (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 of oral hypoglycemic drugs; Z79.899 Other long term (current) drug therapy; Z88.8 Allergy status to other drugs, medicaments and biological substances; L02.612 Cutaneous abscess of left foot; B96.1 Klebsiella pneumoniae [K. pneumoniae] as the cause of diseases classified elsewhere; B95.2 Enterococcus as the cause of diseases classified elsewhere; R20.0 Anesthesia of skin

== ENCOUNTER 2021-12-13 10:48 | Emergency (ER) | payer OTHER ==
[~2021-12-13] VITALS: Ht 170.2 cm; Wt 64.6 kg
[~2021-12-13 10:48] MED LIST changes: +LEVO750T13 PO
[2021-12-13] MEDS ORDERED: NS 1,000 ML IV ONE (13:35)
[2021-12-13] MEDS ORDERED: HumuLIN R (REGULAR) INSULIN (NovoLIN R) **100U/ML** PER UNIT IV ONE (13:35)
[2021-12-13 13:46] LABS: BASO % 0.3 % (0.0-1.0); EOS % 0.4 % (0.0-3.0); HEMATOCRIT 35.3 % (42.0-52.0); HEMOGLOBIN 11.7 g/dl (13.5-17.5); LYMPH # 1.6 10^3/uL (1.5-5.0); LYMPH % 16.3 % (24.0-44.0); MEAN CORPUSCULAR HEMOGLOBIN 29.1 pg (27.0-33.0); MEAN CORPUSCULAR HGB CONC 33.1 g/dl (32.0-36.5); MEAN CORPUSCULAR VOLUME 87.8 fl (80.0-96.0); MONO # 0.5 10^3/uL (0.0-0.8); MONO % 5.2 % (2.0-8.0); NEUTROPHILS # 7.6 10^3/uL (1.5-8.5); NEUTROPHILS % 77.4 % (36.0-66.0); PLATELET COUNT, AUTOMATED 295 10^3/uL (150-450); RED BLOOD COUNT 4.02 10^6/uL (4.30-6.10); WHITE BLOOD COUNT 9.8 10^3/uL (4.0-10.0)
[2021-12-13 14:11] LABS: ERYTHROCYTE SEDIMENTATION RATE 49 mm/hr (0-20)
[2021-12-13] MEDS ORDERED: LevoFLOXacin 750 MG TABLET PO ONE (15:00)
[2021-12-13] MEDS ORDERED: LEVO750T13 PO (15:32)
[2021-12-13 15:36] LABS: APPEARANCE, URINE CLEAR (CLEAR); BACTERIA, URINE AUTO NEGATIVE (NEGATIVE); BILIRUBIN, URINE AUTO NEGATIVE (NEGATIVE); BLOOD, URINE BLOOD NEGATIVE (NEGATIVE); COLOR, URINE STRAW (YELLOW); GLUCOSE, URINE (UA) AUTO 3+ mg/dL (NEGATIVE); KETONE, URINE AUTO NEGATIVE (NEGATIVE); LEUKOCYTE ESTERASE, URINE AUTO NEGATIVE (NEGATIVE); NITRITE, URINE AUTO NEGATIVE (NEGATIVE); PROTEIN, URINE AUTO NEGATIVE (NEGATIVE); RBC, URINE AUTO 0 /HPF (0-3); SPECIFIC GRAVITY URINE AUTO 1.033 (1.002-1.035); SQUAMOUS EPITHELIAL CELL UR AU 1 /HPF (0-6); UROBILINOGEN, URINE AUTO 0.2 mg/dL (0.0-2.0); WBC, URINE AUTO 0 /HPF (0-3)
[2021-12-13 16:02] VITALS: BP 116/80
== END 2021-12-13 16:41 | disposition home or self-care (01) ==
LOC: M ED 10:48
DX: T81.31XA Disruption of external operation (surgical) wound, not elsewhere classified, initial encounter (principal); E11.40 Type 2 diabetes mellitus with diabetic neuropathy, unspecified; F20.0 Paranoid schizophrenia; B19.20 Unspecified viral hepatitis C without hepatic coma; F15.10 Other stimulant abuse, uncomplicated; F17.200 Nicotine dependence, unspecified, uncomplicated; Z88.8 Allergy status to other drugs, medicaments and biological substances; Z79.82 Long term (current) use of aspirin; Z79.899 Other long term (current) drug therapy
CPT/HCPCS: 36415; 80047; 81001; 85025; 85652; 86140; 99284; J1815

== ENCOUNTER 2022-01-10 14:21 | Emergency (ER) | payer OTHER ==
[~2022-01-10] VITALS: Ht 170.2 cm; Wt 72.7 kg
[2022-01-10] MEDS ORDERED: NS 1,000 ML IV ONE (14:35)
[2022-01-10 15:14] LABS: VENOUS BASE EXCESS 0.7 (-2.0-2.0); VENOUS HCO3 24.1 MEQ/L (23.0-27.0); VENOUS O2 SATURATION 98.4 % (60.0-80.0); VENOUS PARTIAL PRESSURE CO2 34.4 mmHg (38.0-50.0); VENOUS PARTIAL PRESSURE O2 108.4 mmHg (30.0-50.0); VENOUS PH 7.463 UNITS (7.330-7.430); VENOUS STANDARD HCO3 25.1 MEQ/L; VENOUS TOTAL CO2 25.1 MEQ/L (24.0-28.0)
[2022-01-10 15:21] LABS: BASO % 0.4 % (0.0-1.0); EOS # 0.1 10^3/uL (0.0-0.5); EOS % 1.4 % (0.0-3.0); HEMATOCRIT 32.7 % (42.0-52.0); HEMOGLOBIN 10.9 g/dl (13.5-17.5); LYMPH # 1.3 10^3/uL (1.5-5.0); LYMPH % 15.9 % (24.0-44.0); MEAN CORPUSCULAR HEMOGLOBIN 28.9 pg (27.0-33.0); MEAN CORPUSCULAR HGB CONC 33.3 g/dl (32.0-36.5); MEAN CORPUSCULAR VOLUME 86.7 fl (80.0-96.0); MONO # 0.4 10^3/uL (0.0-0.8); MONO % 4.8 % (2.0-8.0); NEUTROPHILS # 6.1 10^3/uL (1.5-8.5); NEUTROPHILS % 77.2 % (36.0-66.0); PLATELET COUNT, AUTOMATED 253 10^3/uL (150-450); RED BLOOD COUNT 3.77 10^6/uL (4.30-6.10); WHITE BLOOD COUNT 7.9 10^3/uL (4.0-10.0)
[2022-01-10] MEDS ORDERED: INSULIN LISPRO (NovoLOG) PER UNIT SC STA ×2 (15:21→17:18)
[2022-01-10 15:58] LABS: AMPHETAMINES LEVEL URINE NEGATIVE (NEGATIVE); BARBITURATES URINE NEGATIVE (NEGATIVE); BENZODIAZEPINES URINE NEGATIVE (NEGATIVE); CANNABINOIDS URINE NEGATIVE (NEGATIVE); COCAINE METABOLITE URINE NEGATIVE (NEGATIVE); METHADONE URINE NEGATIVE (NEGATIVE); OPIATES URINE NEGATIVE (NEGATIVE); PHENCYCLIDINE URINE NEGATIVE (NEGATIVE)
[2022-01-10 16:26] LABS: ACETONE/KETONE 1.59 MG/DL (<2.81); ALBUMIN 2.8 GM/DL (3.2-5.2); ALT/SGPT 14 U/L (12-78); BILIRUBIN,DIRECT 0.2 MG/DL (0.0-0.2); BILIRUBIN,TOTAL 0.2 MG/DL (0.2-1.0); BLOOD UREA NITROGEN 15 MG/DL (7-18); CALCIUM LEVEL 8.6 MG/DL (8.5-10.1); CARBON DIOXIDE LEVEL 26 MEQ/L (21-32); CHLORIDE LEVEL 99 MEQ/L (98-107); CREATININE FOR GFR 0.83 MG/DL (0.70-1.30); ETHYL ALCOHOL (ETHANOL) < 0.003 % (0.000-0.010); GLOMERULAR FILTRATION RATE > 60.0 (>56); GLUCOSE, FASTING 657 MG/DL (70-100); LIPASE 118 U/L (73-393); POTASSIUM SERUM 4.4 MEQ/L (3.5-5.1); SODIUM LEVEL 134 MEQ/L (136-145); TOTAL PROTEIN 6.6 GM/DL (6.4-8.2)
[2022-01-10 16:30] LABS: CK-MB VALUE MASS 1.4 NG/ML (<3.6); MB/CK RELATIVE INDEX 1.92 (< OR =4)
[2022-01-10 16:34] LABS: HEMOGLOBIN A1c > 14.0 %
[2022-01-10 16:35] LABS: OSMOLALITY SERUM 307 MOSM/KG (275-295)
[2022-01-10 17:30] VITALS: BP 136/89
== END 2022-01-10 19:27 | disposition home or self-care (01) ==
LOC: M ED 14:21 → EDBD 14:21 → M ED 19:27
DX: E11.65 Type 2 diabetes mellitus with hyperglycemia (principal); I10 Essential (primary) hypertension; B19.20 Unspecified viral hepatitis C without hepatic coma; F17.200 Nicotine dependence, unspecified, uncomplicated; Z79.2 Long term (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 of antibiotics; Z79.4 Long term (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 of insulin; Z79.82 Long term (current) use of aspirin; Z79.899 Other long term (current) drug therapy; Z79.84 Long term (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 of oral hypoglycemic drugs; Z88.8 Allergy status to other drugs, medicaments and biological substances; Z98.890 Other specified postprocedural states; Z87.438 Personal history of other diseases of male genital organs
CPT/HCPCS: 71045; 80047; 80048; 80076; 80307; 81001; 82010; 82077; 82550; 82553; 82803; 83036; 83690; 83930; 85025; 87040; 87077; 87086; 87486; 87581; 87633; 87798; 93005; 93041; 99285; J1815

== ENCOUNTER 2022-01-15 12:58 | Emergency (ER) | payer OTHER, SELFPAY ==
[~2022-01-15] VITALS: Ht 170.2 cm; Wt 68.7 kg
[2022-01-15 16:36] LABS: BASO % 0.5 % (0.0-1.0); EOS # 0.1 10^3/uL (0.0-0.5); EOS % 1.6 % (0.0-3.0); HEMATOCRIT 39.5 % (42.0-52.0); HEMOGLOBIN 13.2 g/dl (13.5-17.5); LYMPH # 1.6 10^3/uL (1.5-5.0); LYMPH % 18.6 % (24.0-44.0); MEAN CORPUSCULAR HEMOGLOBIN 30.1 pg (27.0-33.0); MEAN CORPUSCULAR HGB CONC 33.4 g/dl (32.0-36.5); MEAN CORPUSCULAR VOLUME 90.2 fl (80.0-96.0); MONO # 0.4 10^3/uL (0.0-0.8); MONO % 4.7 % (2.0-8.0); NEUTROPHILS # 6.3 10^3/uL (1.5-8.5); NEUTROPHILS % 73.8 % (36.0-66.0); PLATELET COUNT, AUTOMATED 311 10^3/uL (150-450); RED BLOOD COUNT 4.38 10^6/uL (4.30-6.10); WHITE BLOOD COUNT 8.5 10^3/uL (4.0-10.0)
[2022-01-15 17:07] LABS: ERYTHROCYTE SEDIMENTATION RATE 61 mm/hr (0-20)
[2022-01-15 17:09] LABS: BLOOD UREA NITROGEN 21 MG/DL (7-18); C REACTIVE PROTEIN QUANTITATIV 0.87 MG/DL (0.00-0.30); CALCIUM LEVEL 9.2 MG/DL (8.5-10.1); CARBON DIOXIDE LEVEL 26 MEQ/L (21-32); CHLORIDE LEVEL 102 MEQ/L (98-107); CREATININE FOR GFR 0.91 MG/DL (0.70-1.30); GLOMERULAR FILTRATION RATE > 60.0 (>56); GLUCOSE, FASTING 474 MG/DL (70-100); POTASSIUM SERUM 4.8 MEQ/L (3.5-5.1); SODIUM LEVEL 134 MEQ/L (136-145)
[2022-01-15] MEDS ORDERED: HumuLIN R (REGULAR) INSULIN (NovoLIN R) **100U/ML** PER UNIT IV ONE ×3 (17:10→19:35)
[2022-01-15] MEDS ORDERED: NS 1,000 ML IV ONE (17:10)
[2022-01-15 17:39] LABS: ACETONE/KETONE 5.55 MG/DL (<2.81)
[2022-01-15] MEDS ORDERED: LIDOCAINE 1% MDV 20ML VIAL SC ONE (18:15)
[2022-01-15] MEDS ORDERED: DALBAVANCIN 1,500 MG in D5W 250 ML IV ONE (18:15)
[2022-01-15 21:12] VITALS: BP 132/78
== END 2022-01-15 21:14 | disposition home or self-care (01) ==
LOC: M ED 12:58
DX: L02.412 Cutaneous abscess of left axilla (principal); L03.114 Cellulitis of left upper limb; L02.413 Cutaneous abscess of right upper limb; B96.1 Klebsiella pneumoniae [K. pneumoniae] as the cause of diseases classified elsewhere; E10.65 Type 1 diabetes mellitus with hyperglycemia; F15.10 Other stimulant abuse, uncomplicated; I10 Essential (primary) hypertension; Z87.442 Personal history of urinary calculi; Z86.73 Personal history of transient ischemic attack (TIA), and cerebral infarction without residual deficits; B19.10 Unspecified viral hepatitis B without hepatic coma; Z88.8 Allergy status to other drugs, medicaments and biological substances; Z79.899 Other long term (current) drug therapy; Z79.4 Long term (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 of insulin; Z79.82 Long term (current) use of aspirin; Z79.84 Long term (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 of oral hypoglycemic drugs
CPT/HCPCS: 36600; 73090; 73110; 80048; 81001; 82010; 82803; 83036; 85025; 85652; 86140; 87040; 87070; 87077; 87086; 96374; 96376; 99284; J0875; J1815

== ENCOUNTER 2022-02-01 04:26 | Inpatient (IN) | payer MEDICAID, OTHER, SELFPAY ==
[~2022-02-01] VITALS: Ht 162.6 cm; Wt 63.8 kg
[~2022-02-01 04:26] MED LIST changes: +LEVO1TAB40 PO; -LEVO750T13 PO
[2022-02-01 06:01] LABS: HEMATOCRIT 37.8 % (42.0-52.0); HEMOGLOBIN 12.3 g/dl (13.5-17.5); MEAN CORPUSCULAR HEMOGLOBIN 29.1 pg (27.0-33.0); MEAN CORPUSCULAR HGB CONC 32.5 g/dl (32.0-36.5); MEAN CORPUSCULAR VOLUME 89.4 fl (80.0-96.0); PLATELET COUNT, AUTOMATED 218 10^3/uL (150-450); RED BLOOD COUNT 4.23 10^6/uL (4.30-6.10); WHITE BLOOD COUNT 8.2 10^3/uL (4.0-10.0)
[2022-02-01 06:24] LABS: RSV AMPLIFICATION NEGATIVE (NEGATIVE)
[2022-02-01 06:39] LABS: ACETAMINOPHEN LEVEL < 2.0 UG/ML (10.0-30.0); ALBUMIN 3.8 GM/DL (3.2-5.2); ALT/SGPT 23 U/L (12-78); BILIRUBIN,DIRECT 0.2 MG/DL (0.0-0.2); BILIRUBIN,TOTAL 0.6 MG/DL (0.2-1.0); BLOOD UREA NITROGEN 22 MG/DL (7-18); CALCIUM LEVEL 9.8 MG/DL (8.5-10.1); CARBON DIOXIDE LEVEL 26 MEQ/L (21-32); CHLORIDE LEVEL 101 MEQ/L (98-107); CREATININE FOR GFR 1.04 MG/DL (0.70-1.30); ETHYL ALCOHOL (ETHANOL) < 0.003 % (0.000-0.010); GLOMERULAR FILTRATION RATE > 60.0 (>56); GLUCOSE, FASTING 322 MG/DL (70-100); POTASSIUM SERUM 4.1 MEQ/L (3.5-5.1); SALICYLATE LEVEL < 1.7 MG/DL (5.0-30.0); SODIUM LEVEL 136 MEQ/L (136-145); THYROID STIMULATING HORMONE 0.733 uIU/ML (0.358-3.740); TOTAL PROTEIN 8.2 GM/DL (6.4-8.2)
[2022-02-01] MEDS ORDERED: PATIENT COMMENT (08:20)
[2022-02-01] MEDS ORDERED: HOME MED LIST COMPLETE! XX SCH (08:25)
[2022-02-01] MEDS: INSULIN LISPRO (NovoLOG) PER UNIT SC SCH ×3 (09:02→18:08)
[2022-02-01] MEDS: LEVEMIR (INSULIN DETEMIR) 1 UNITS/0.01ML SC SCH (13:49)
[2022-02-01 14:20] LABS: AMPHETAMINES LEVEL URINE NEGATIVE (NEGATIVE); BARBITURATES URINE NEGATIVE (NEGATIVE); BENZODIAZEPINES URINE NEGATIVE (NEGATIVE); CANNABINOIDS URINE NEGATIVE (NEGATIVE); COCAINE METABOLITE URINE POSITIVE (NEGATIVE); METHADONE URINE NEGATIVE (NEGATIVE); OPIATES URINE NEGATIVE (NEGATIVE); PHENCYCLIDINE URINE NEGATIVE (NEGATIVE)
[2022-02-01] MEDS: GABAPENTIN 300 MG CAP PO SCH ×2 (16:27→21:17)
[2022-02-01] MEDS: metFORMIN (GLUCOPHAGE) 500MG TAB PO SCH (18:06)
[2022-02-01] MEDS: QUEtiapine FUMARATE 200 MG TAB PO SCH (21:17)
[2022-02-01] MEDS: TOPIRAMATE (TopAMAX) 100 MG TAB PO SCH (21:18)
[2022-02-02] MEDS: INSULIN LISPRO (NovoLOG) PER UNIT SC SCH ×3 (07:09→15:20)
[2022-02-02] MEDS: LEVEMIR (INSULIN DETEMIR) 1 UNITS/0.01ML SC SCH (09:00)
[2022-02-02] MEDS: metFORMIN (GLUCOPHAGE) 500MG TAB PO SCH ×2 (11:00→18:00)
[2022-02-02] MEDS: TOPIRAMATE (TopAMAX) 100 MG TAB PO SCH ×2 (11:00→21:03)
[2022-02-02] MEDS: GABAPENTIN 300 MG CAP PO SCH ×3 (11:00→21:03)
[2022-02-02] MEDS: ASPIRIN 81 MG CHEW TABLET PO SCH (11:00)
[2022-02-02] MEDS: QUEtiapine FUMARATE 200 MG TAB PO SCH (21:04)
[2022-02-03] MEDS: TOPIRAMATE (TopAMAX) 100 MG TAB PO SCH ×2 (09:19→21:19)
[2022-02-03] MEDS: GABAPENTIN 300 MG CAP PO SCH ×3 (09:19→21:19)
[2022-02-03] MEDS: ASPIRIN 81 MG CHEW TABLET PO SCH (09:19)
[2022-02-03] MEDS: metFORMIN (GLUCOPHAGE) 500MG TAB PO SCH ×2 (09:19→18:00)
[2022-02-03] MEDS: LEVEMIR (INSULIN DETEMIR) 1 UNITS/0.01ML SC SCH (09:20)
[2022-02-03] MEDS: INSULIN LISPRO (NovoLOG) PER UNIT SC SCH ×3 (09:20→17:04)
[2022-02-03] MEDS: QUEtiapine FUMARATE 200 MG TAB PO SCH (21:19)
[2022-02-04] MEDS: ASPIRIN 81 MG CHEW TABLET PO SCH (09:50)
[2022-02-04] MEDS: TOPIRAMATE (TopAMAX) 100 MG TAB PO SCH ×2 (09:50→21:54)
[2022-02-04] MEDS: GABAPENTIN 300 MG CAP PO SCH ×2 (09:51→22:12)
[2022-02-04] MEDS: metFORMIN (GLUCOPHAGE) 500MG TAB PO SCH (09:51)
[2022-02-04] MEDS: INSULIN LISPRO (NovoLOG) PER UNIT SC SCH ×3 (10:10→22:09)
[2022-02-04] MEDS: LEVEMIR (INSULIN DETEMIR) 1 UNITS/0.01ML SC SCH (10:11)
[2022-02-04] MEDS ORDERED: traZODone 50 MG TAB PO PRN (16:25)
[2022-02-04] MEDS ORDERED: MOM 30ML SUSPENSION UDC PO PRN (16:25)
[2022-02-04] MEDS ORDERED: ACETAMINOPHEN TAB 650MG DOSE (2X325MG) PO PRN (16:25)
[2022-02-04] MEDS ORDERED: MAALOX 30 ML SUSP *UDC PO PRN (16:25)
[2022-02-04] MEDS ORDERED: OLANZapine ORAL DISINTEGRATING TAB 5MG PO PRN (16:25)
[2022-02-04 17:12] VITALS: BP 115/76
[2022-02-04] MEDS ORDERED: DEXTROSE 50% 50 ML SYRINGE IV PRN (21:50)
[2022-02-04] MEDS ORDERED: GLUCAGON INJ 1MG VIAL SC PRN (21:50)
[2022-02-04] MEDS ORDERED: GLUCOSE 4GM CHEW TABLET PO PRN (21:50)
[2022-02-04] MEDS: QUEtiapine FUMARATE 200 MG TAB PO SCH (21:54)
[2022-02-04] MEDS ORDERED: NICOTINE 21MG/24HR 1 EA TRANSDERMAL TD PRN (22:25)
[2022-02-05 06:34] VITALS: BP 105/67
[2022-02-05] MEDS: INSULIN LISPRO (NovoLOG) PER UNIT SC SCH ×4 (06:40→20:46)
[2022-02-05 07:05] LABS: HEMATOCRIT 39.1 % (42.0-52.0); HEMOGLOBIN 12.7 g/dl (13.5-17.5); MEAN CORPUSCULAR HEMOGLOBIN 29.1 pg (27.0-33.0); MEAN CORPUSCULAR HGB CONC 32.5 g/dl (32.0-36.5); MEAN CORPUSCULAR VOLUME 89.5 fl (80.0-96.0); PLATELET COUNT, AUTOMATED 199 10^3/uL (150-450); RED BLOOD COUNT 4.37 10^6/uL (4.30-6.10); WHITE BLOOD COUNT 6.8 10^3/uL (4.0-10.0)
[2022-02-05 07:26] LABS: HEMOGLOBIN A1c 13.6 %
[2022-02-05 07:46] LABS: BLOOD UREA NITROGEN 14 MG/DL (7-18); CARBON DIOXIDE LEVEL 21 MEQ/L (21-32); CHLORIDE LEVEL 111 MEQ/L (98-107); CREATININE FOR GFR 0.88 MG/DL (0.70-1.30); GLOMERULAR FILTRATION RATE > 60.0 (>56); GLUCOSE, FASTING 240 MG/DL (70-100); POTASSIUM SERUM 3.9 MEQ/L (3.5-5.1); SODIUM LEVEL 139 MEQ/L (136-145)
[2022-02-05] MEDS: TOPIRAMATE (TopAMAX) 100 MG TAB PO SCH ×2 (08:34→20:46)
[2022-02-05] MEDS: GABAPENTIN 300 MG CAP PO SCH ×3 (08:35→20:46)
[2022-02-05] MEDS: ASPIRIN 81 MG CHEW TABLET PO SCH (08:35)
[2022-02-05] MEDS ORDERED: LEVEMIR (INSULIN DETEMIR) 1 UNITS/0.01ML SC SCH (09:00)
[2022-02-05] MEDS: NICOTINE 21MG/24HR 1 EA TRANSDERMAL TD SCH ×2 (09:00→11:00)
[2022-02-05 18:29] VITALS: BP 133/84
[2022-02-05] MEDS: QUEtiapine FUMARATE 200 MG TAB PO SCH (20:46)
[2022-02-06] MEDS: INSULIN LISPRO (NovoLOG) PER UNIT SC SCH ×4 (06:59→21:30)
[2022-02-06 07:06] VITALS: BP 125/85
[2022-02-06] MEDS: GABAPENTIN 300 MG CAP PO SCH ×3 (08:43→21:32)
[2022-02-06] MEDS: ASPIRIN 81 MG CHEW TABLET PO SCH (08:43)
[2022-02-06] MEDS: TOPIRAMATE (TopAMAX) 100 MG TAB PO SCH ×2 (08:43→21:31)
[2022-02-06] MEDS: NICOTINE 21MG/24HR 1 EA TRANSDERMAL TD SCH ×2 (08:44→17:44)
[2022-02-06] MEDS ORDERED: LEVEMIR (INSULIN DETEMIR) 1 UNITS/0.01ML SC SCH (09:00)
[2022-02-06 12:13] VITALS: BP 142/104
[2022-02-06] MEDS ORDERED: ISOVUE-370 76% 100ML VIAL As Ordered ONE (12:14)
[2022-02-06] MEDS ORDERED: INSULIN LISPRO (NovoLOG) PER UNIT SC STA (12:14)
[2022-02-06] MEDS ORDERED: LEVEMIR (INSULIN DETEMIR) 1 UNITS/0.01ML SC ONE (14:30)
[2022-02-06 17:01] LABS: BLOOD UREA NITROGEN 15 MG/DL (7-18); CALCIUM LEVEL 10.1 MG/DL (8.5-10.1); CARBON DIOXIDE LEVEL 23 MEQ/L (21-32); CHLORIDE LEVEL 107 MEQ/L (98-107); CREATININE FOR GFR 0.99 MG/DL (0.70-1.30); GLOMERULAR FILTRATION RATE > 60.0 (>56); GLUCOSE, FASTING 111 MG/DL (70-100); POTASSIUM SERUM 3.5 MEQ/L (3.5-5.1); SODIUM LEVEL 137 MEQ/L (136-145)
[2022-02-06 17:04] LABS: ACETONE/KETONE 1.14 MG/DL (<2.81); BLOOD UREA NITROGEN 15 MG/DL (7-18); CALCIUM LEVEL 10.1 MG/DL (8.5-10.1); CARBON DIOXIDE LEVEL 22 MEQ/L (21-32); CHLORIDE LEVEL 107 MEQ/L (98-107); CREATININE FOR GFR 0.94 MG/DL (0.70-1.30); GLOMERULAR FILTRATION RATE > 60.0 (>56); GLUCOSE, FASTING 113 MG/DL (70-100); POTASSIUM SERUM 3.5 MEQ/L (3.5-5.1); SODIUM LEVEL 137 MEQ/L (136-145)
[2022-02-06 17:41] LABS: CHOLESTEROL RISK RATIO 2.276 (<5)
[2022-02-06 18:00] VITALS: BP 140/93
[2022-02-06] MEDS: ATORVASTATIN 20 MG TAB PO SCH (21:31)
[2022-02-06] MEDS: LEVEMIR (INSULIN DETEMIR) 1 UNITS/0.01ML SC SCH (21:31)
[2022-02-06] MEDS: QUEtiapine FUMARATE 200 MG TAB PO SCH (21:32)
[2022-02-06 23:55] LABS: BLOOD UREA NITROGEN 21 MG/DL (7-18); CARBON DIOXIDE LEVEL 23 MEQ/L (21-32); CHLORIDE LEVEL 105 MEQ/L (98-107); CREATININE FOR GFR 0.99 MG/DL (0.70-1.30); GLOMERULAR FILTRATION RATE > 60.0 (>56); GLUCOSE, FASTING 328 MG/DL (70-100); POTASSIUM SERUM 3.7 MEQ/L (3.5-5.1); SODIUM LEVEL 135 MEQ/L (136-145)
[2022-02-07] MEDS: INSULIN LISPRO (NovoLOG) PER UNIT SC SCH ×4 (06:47→21:23)
[2022-02-07 06:58] VITALS: BP 117/66
[2022-02-07] MEDS: NICOTINE 21MG/24HR 1 EA TRANSDERMAL TD SCH (08:49)
[2022-02-07] MEDS: ASPIRIN 81 MG CHEW TABLET PO SCH (08:49)
[2022-02-07] MEDS: GABAPENTIN 300 MG CAP PO SCH ×3 (08:49→21:22)
[2022-02-07] MEDS: TOPIRAMATE (TopAMAX) 100 MG TAB PO SCH ×2 (08:49→21:22)
[2022-02-07] MEDS: LEVEMIR (INSULIN DETEMIR) 1 UNITS/0.01ML SC SCH ×2 (08:53→21:23)
[2022-02-07 09:02] LABS: BLOOD UREA NITROGEN 23 MG/DL (7-18); CALCIUM LEVEL 9.3 MG/DL (8.5-10.1); CARBON DIOXIDE LEVEL 20 MEQ/L (21-32); CHLORIDE LEVEL 106 MEQ/L (98-107); CREATININE FOR GFR 1.16 MG/DL (0.70-1.30); FERRITIN 49 NG/ML (26-388); GLOMERULAR FILTRATION RATE > 60.0 (>56); GLUCOSE, FASTING 286 MG/DL (70-100); IRON (FE) 66 UG/DL (65-175); PERCENT SATURATION 21.6 % (19.7-50.0); POTASSIUM SERUM 3.9 MEQ/L (3.5-5.1); SODIUM LEVEL 134 MEQ/L (136-145); TOTAL IRON BINDING CAPACITY 306 UG/DL (250-450)
[2022-02-07 18:18] VITALS: BP 132/73
[2022-02-07] MEDS: QUEtiapine FUMARATE 200 MG TAB PO SCH (21:22)
[2022-02-07] MEDS: ATORVASTATIN 20 MG TAB PO SCH (21:22)
[2022-02-08 06:23] VITALS: BP 130/83
[2022-02-08] MEDS: INSULIN LISPRO (NovoLOG) PER UNIT SC SCH ×4 (06:43→21:50)
[2022-02-08] MEDS: LEVEMIR (INSULIN DETEMIR) 1 UNITS/0.01ML SC SCH ×2 (08:01→21:51)
[2022-02-08] MEDS: ASPIRIN 81 MG CHEW TABLET PO SCH (08:01)
[2022-02-08] MEDS: GABAPENTIN 300 MG CAP PO SCH ×3 (08:01→21:47)
[2022-02-08] MEDS: TOPIRAMATE (TopAMAX) 100 MG TAB PO SCH ×2 (08:01→21:47)
[2022-02-08] MEDS: NICOTINE 21MG/24HR 1 EA TRANSDERMAL TD SCH (08:01)
[2022-02-08 18:23] VITALS: BP 123/79
[2022-02-08] MEDS: QUEtiapine FUMARATE 200 MG TAB PO SCH (21:47)
[2022-02-08] MEDS: ATORVASTATIN 20 MG TAB PO SCH (21:47)
[2022-02-09] MEDS: INSULIN LISPRO (NovoLOG) PER UNIT SC SCH ×4 (06:46→20:22)
[2022-02-09 06:53] VITALS: BP 131/68
[2022-02-09] MEDS: ASPIRIN 81 MG CHEW TABLET PO SCH (08:15)
[2022-02-09] MEDS: NICOTINE 21MG/24HR 1 EA TRANSDERMAL TD SCH (08:15)
[2022-02-09] MEDS: GABAPENTIN 300 MG CAP PO SCH ×3 (08:16→20:20)
[2022-02-09] MEDS: LEVEMIR (INSULIN DETEMIR) 1 UNITS/0.01ML SC SCH ×2 (08:16→20:21)
[2022-02-09] MEDS: TOPIRAMATE (TopAMAX) 100 MG TAB PO SCH ×2 (08:16→20:20)
[2022-02-09 18:16] VITALS: BP 136/83
[2022-02-09] MEDS: QUEtiapine FUMARATE 200 MG TAB PO SCH (20:20)
[2022-02-09] MEDS: ATORVASTATIN 20 MG TAB PO SCH (20:21)
[2022-02-10 06:37] VITALS: BP 116/70
[2022-02-10] MEDS: INSULIN LISPRO (NovoLOG) PER UNIT SC SCH ×2 (06:42→11:55)
[2022-02-10] MEDS: NICOTINE 21MG/24HR 1 EA TRANSDERMAL TD SCH (08:15)
[2022-02-10] MEDS ORDERED: QUET400T2 PO (08:30)
[2022-02-10] MEDS ORDERED: HALO5TAB33 PO (08:30)
[2022-02-10] MEDS: GABAPENTIN 300 MG CAP PO SCH (08:57)
[2022-02-10] MEDS: LEVEMIR (INSULIN DETEMIR) 1 UNITS/0.01ML SC SCH (08:57)
[2022-02-10] MEDS: ASPIRIN 81 MG CHEW TABLET PO SCH (08:57)
[2022-02-10] MEDS: TOPIRAMATE (TopAMAX) 100 MG TAB PO SCH (08:57)
== END 2022-02-10 13:48 | disposition home or self-care (01) | DRG 750 ==
LOC: M ED 04:26 → M ED INP 02-04 16:23 → M PSY 02-04 16:58
PROVIDERS: ADMIT Psychiatry & Neurology Psychiatry; ATTEND Psychiatry & Neurology Psychiatry
DX: F20.0 Paranoid schizophrenia (principal); E11.40 Type 2 diabetes mellitus with diabetic neuropathy, unspecified; E11.65 Type 2 diabetes mellitus with hyperglycemia; F14.10 Cocaine abuse, uncomplicated; F16.10 Hallucinogen abuse, uncomplicated; N40.0 Benign prostatic hyperplasia without lower urinary tract symptoms; M19.90 Unspecified osteoarthritis, unspecified site; I10 Essential (primary) hypertension; E55.9 Vitamin D deficiency, unspecified; B19.20 Unspecified viral hepatitis C without hepatic coma; F17.210 Nicotine dependence, cigarettes, uncomplicated; R63.4 Abnormal weight loss; G56.01 Carpal tunnel syndrome, right upper limb; Z86.73 Personal history of transient ischemic attack (TIA), and cerebral infarction without residual deficits; Z88.8 Allergy status to other drugs, medicaments and biological substances; Z91.018 Allergy to other foods; Z91.51 Personal history of suicidal behavior

== ENCOUNTER 2022-03-03 14:46 | Emergency (ER) | payer MEDICAID ==
[~2022-03-03 14:46] MED LIST changes: +HALO5TAB33 PO; +PATIENT COMMENT
[2022-03-03 16:38] LABS: HEMATOCRIT 38.9 % (42.0-52.0); HEMOGLOBIN 12.8 g/dl (13.5-17.5); MEAN CORPUSCULAR HEMOGLOBIN 28.8 pg (27.0-33.0); MEAN CORPUSCULAR HGB CONC 32.9 g/dl (32.0-36.5); MEAN CORPUSCULAR VOLUME 87.6 fl (80.0-96.0); PLATELET COUNT, AUTOMATED 258 10^3/uL (150-450); RED BLOOD COUNT 4.44 10^6/uL (4.30-6.10); WHITE BLOOD COUNT 7.1 10^3/uL (4.0-10.0)
[2022-03-03 17:18] LABS: AMPHETAMINES LEVEL URINE POSITIVE (NEGATIVE); BARBITURATES URINE NEGATIVE (NEGATIVE); BENZODIAZEPINES URINE NEGATIVE (NEGATIVE); CANNABINOIDS URINE NEGATIVE (NEGATIVE); COCAINE METABOLITE URINE NEGATIVE (NEGATIVE); METHADONE URINE NEGATIVE (NEGATIVE); OPIATES URINE NEGATIVE (NEGATIVE); PHENCYCLIDINE URINE NEGATIVE (NEGATIVE)
[2022-03-03 17:28] LABS: ACETAMINOPHEN LEVEL < 2.0 UG/ML (10.0-30.0); ALBUMIN 4.1 GM/DL (3.2-5.2); ALT/SGPT 13 U/L (12-78); BILIRUBIN,DIRECT 0.1 MG/DL (0.0-0.2); BILIRUBIN,TOTAL 0.5 MG/DL (0.2-1.0); BLOOD UREA NITROGEN 14 MG/DL (7-18); CALCIUM LEVEL 9.9 MG/DL (8.5-10.1); CARBON DIOXIDE LEVEL 22 MEQ/L (21-32); CHLORIDE LEVEL 101 MEQ/L (98-107); CREATININE FOR GFR 0.98 MG/DL (0.70-1.30); ETHYL ALCOHOL (ETHANOL) < 0.003 % (0.000-0.010); GLOMERULAR FILTRATION RATE > 60.0 (>56); GLUCOSE, FASTING 281 MG/DL (70-100); POTASSIUM SERUM 3.9 MEQ/L (3.5-5.1); SALICYLATE LEVEL 2.2 MG/DL (5.0-30.0); SODIUM LEVEL 135 MEQ/L (136-145); TOTAL PROTEIN 8.6 GM/DL (6.4-8.2)
[2022-03-03 17:41] LABS: RSV AMPLIFICATION NEGATIVE (NEGATIVE)
[2022-03-03] MEDS ORDERED: ASPI-161 PO (20:57)
[2022-03-03] MEDS ORDERED: QUET400T2 PO (20:57)
[2022-03-03] MEDS ORDERED: HALO5TAB33 PO (20:57)
[2022-03-03] MEDS ORDERED: FLOM0.4C39 PO (20:57)
[2022-03-03] MEDS ORDERED: HOME MED LIST COMPLETE! XX SCH (21:00)
[2022-03-04] MEDS ORDERED: QUEtiapine FUMARATE 200 MG TAB PO ONE ×2 (05:30→21:00)
[2022-03-04] MEDS ORDERED: metFORMIN (GLUCOPHAGE) 500MG TAB PO SCH ×2 (08:00→21:00)
[2022-03-04] MEDS ORDERED: TOPIRAMATE (TopAMAX) 100 MG TAB PO SCH ×2 (09:00→21:00)
[2022-03-04] MEDS ORDERED: ASPIRIN 81MG ENTERIC TABLET PO SCH (09:00)
[2022-03-04] MEDS ORDERED: GABAPENTIN 300 MG CAP PO SCH ×2 (09:00→16:00)
[2022-03-04] MEDS ORDERED: LEVEMIR (INSULIN DETEMIR) 1 UNITS/0.01ML SC SCH (09:00)
[2022-03-04] MEDS ORDERED: TAMSULOSIN 0.4 MG CAP PO SCH (09:00)
[2022-03-04] MEDS ORDERED: INSULIN LISPRO (NovoLOG) PER UNIT SC SCH ×2 (12:00)
[2022-03-04 13:56] VITALS: BP 98/50
[2022-03-04] MEDS ORDERED: QUEtiapine FUMARATE 200 MG TAB PO SCH (21:00)
[2022-03-05] MEDS ORDERED: TAMSULOSIN 0.4 MG CAP PO SCH (09:00)
[2022-03-05] MEDS ORDERED: LEVEMIR (INSULIN DETEMIR) 1 UNITS/0.01ML SC SCH (09:00)
[2022-03-05] MEDS ORDERED: ASPIRIN 81MG ENTERIC TABLET PO SCH (09:00)
== END 2022-03-04 14:15 | disposition home or self-care (01) ==
LOC: M ED 14:46
DX: F20.9 Schizophrenia, unspecified (principal); F15.159 Other stimulant abuse with stimulant-induced psychotic disorder, unspecified; F19.10 Other psychoactive substance abuse, uncomplicated; E11.9 Type 2 diabetes mellitus without complications; I10 Essential (primary) hypertension; B19.20 Unspecified viral hepatitis C without hepatic coma; F17.200 Nicotine dependence, unspecified, uncomplicated; Z88.8 Allergy status to other drugs, medicaments and biological substances; Z91.018 Allergy to other foods; Z79.899 Other long term (current) drug therapy; Z79.82 Long term (current) use of aspirin; Z79.4 Long term (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 of insulin; Z79.84 Long term (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 of oral hypoglycemic drugs
CPT/HCPCS: 36415; 80048; 80076; 80143; 80307; 82077; 84443; 85027; 87631; 99284; J1815

== ENCOUNTER 2022-04-09 02:45 | Emergency (ER) | payer MEDICAID ==
[~2022-04-09] VITALS: Ht 170.2 cm; Wt 81.4 kg
[~2022-04-09 02:45] MED LIST changes: +ASPI-161 PO
[2022-04-09 06:28] LABS: HEMATOCRIT 40.2 % (42.0-52.0); HEMOGLOBIN 13.4 g/dl (13.5-17.5); MEAN CORPUSCULAR HEMOGLOBIN 28.5 pg (27.0-33.0); MEAN CORPUSCULAR HGB CONC 33.3 g/dl (32.0-36.5); MEAN CORPUSCULAR VOLUME 85.4 fl (80.0-96.0); PLATELET COUNT, AUTOMATED 252 10^3/uL (150-450); RED BLOOD COUNT 4.71 10^6/uL (4.30-6.10); WHITE BLOOD COUNT 11.7 10^3/uL (4.0-10.0)
[2022-04-09 06:50] LABS: RSV AMPLIFICATION NEGATIVE (NEGATIVE)
[2022-04-09 07:02] LABS: ACETAMINOPHEN LEVEL < 2.0 UG/ML (10.0-30.0); ALBUMIN 4.2 GM/DL (3.2-5.2); ALT/SGPT 18 U/L (12-78); AMPHETAMINES LEVEL URINE POSITIVE (NEGATIVE); BARBITURATES URINE NEGATIVE (NEGATIVE); BENZODIAZEPINES URINE NEGATIVE (NEGATIVE); BILIRUBIN,DIRECT 0.1 MG/DL (0.0-0.2); BILIRUBIN,TOTAL 0.4 MG/DL (0.2-1.0); BLOOD UREA NITROGEN 18 MG/DL (7-18); CALCIUM LEVEL 9.9 MG/DL (8.5-10.1); CANNABINOIDS URINE NEGATIVE (NEGATIVE); CARBON DIOXIDE LEVEL 21 MEQ/L (21-32); CHLORIDE LEVEL 94 MEQ/L (98-107); COCAINE METABOLITE URINE NEGATIVE (NEGATIVE); CREATININE FOR GFR 1.33 MG/DL (0.70-1.30); ETHYL ALCOHOL (ETHANOL) < 0.003 % (0.000-0.010); GLOMERULAR FILTRATION RATE > 60.0 (>56); GLUCOSE, FASTING 682 MG/DL (70-100); METHADONE URINE NEGATIVE (NEGATIVE); OPIATES URINE NEGATIVE (NEGATIVE); PHENCYCLIDINE URINE NEGATIVE (NEGATIVE); POTASSIUM SERUM 4.5 MEQ/L (3.5-5.1); SALICYLATE LEVEL < 1.7 MG/DL (5.0-30.0); SODIUM LEVEL 129 MEQ/L (136-145); THYROID STIMULATING HORMONE 0.531 uIU/ML (0.358-3.740); TOTAL PROTEIN 8.6 GM/DL (6.4-8.2)
[2022-04-09] MEDS ORDERED: NS 1,000 ML IV ONE (07:10)
[2022-04-09] MEDS ORDERED: HumuLIN R (REGULAR) INSULIN (NovoLIN R) **100U/ML** PER UNIT IV ONE (07:10)
[2022-04-09 08:55] LABS: OSMOLALITY SERUM 309 MOSM/KG (275-295)
[2022-04-09 09:14] LABS: ACETONE/KETONE 11.45 MG/DL (<2.81)
[2022-04-09] MEDS ORDERED: HALOPERIDOL DECANOATE 100 MG/ML VIAL (J1631) IM ONE (09:40)
[2022-04-09] MEDS ORDERED: INSULIN LISPRO (NovoLOG) PER UNIT SC ONE (10:00)
[2022-04-09] MEDS ORDERED: HALD50IN4 IM (10:16)
[2022-04-09] MEDS ORDERED: QUET300T2 PO (10:21)
[2022-04-09] MEDS ORDERED: HOME MED LIST COMPLETE! XX SCH (10:30)
[2022-04-09 10:53] LABS: VENOUS BASE EXCESS -1.9 (-2.0-2.0); VENOUS HCO3 23.6 MEQ/L (23.0-27.0); VENOUS O2 SATURATION 78.3 % (60.0-80.0); VENOUS PARTIAL PRESSURE CO2 43.3 mmHg (38.0-50.0); VENOUS PARTIAL PRESSURE O2 43.2 mmHg (30.0-50.0); VENOUS PH 7.355 UNITS (7.330-7.430); VENOUS STANDARD HCO3 22.4 MEQ/L
[2022-04-09 12:15] VITALS: BP 129/74
== END 2022-04-09 14:05 | disposition home or self-care (01) ==
LOC: M ED 02:45
DX: F20.0 Paranoid schizophrenia (principal); E11.65 Type 2 diabetes mellitus with hyperglycemia; F19.10 Other psychoactive substance abuse, uncomplicated; K21.9 Gastro-esophageal reflux disease without esophagitis; N40.0 Benign prostatic hyperplasia without lower urinary tract symptoms; B19.20 Unspecified viral hepatitis C without hepatic coma; M25.551 Pain in right hip; M25.552 Pain in left hip; G89.29 Other chronic pain; Z79.899 Other long term (current) drug therapy; Z79.4 Long term (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 of insulin; Z79.84 Long term (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 of oral hypoglycemic drugs; Z79.82 Long term (current) use of aspirin; Z88.8 Allergy status to other drugs, medicaments and biological substances; Z91.018 Allergy to other foods; Z86.73 Personal history of transient ischemic attack (TIA), and cerebral infarction without residual deficits
CPT/HCPCS: 73521; 80048; 80076; 80143; 80307; 81002; 82010; 82077; 82803; 83930; 84443; 85027; 87631; 96361; 96372; 96374; 99284; J1631; J1815

== ENCOUNTER 2022-06-10 19:31 | Emergency (ER) | payer MEDICAID ==
[~2022-06-10] VITALS: Ht 172.7 cm; Wt 81.0 kg
[~2022-06-10 19:31] MED LIST changes: +HALD50IN4 IM
[2022-06-10] MEDS ORDERED: BENZTROPINE MESYLATE 2MG/2ML VIAL IM ONE (20:30)
[2022-06-10] MEDS ORDERED: NS 1,000 ML IV ONE (21:20)
[2022-06-10 21:30] LABS: BASO % 0.4 % (0.0-1.0); EOS # 0.1 10^3/uL (0.0-0.5); EOS % 0.9 % (0.0-3.0); HEMATOCRIT 39.1 % (42.0-52.0); HEMOGLOBIN 12.5 g/dl (13.5-17.5); LYMPH # 1.6 10^3/uL (1.5-5.0); LYMPH % 21.5 % (24.0-44.0); MEAN CORPUSCULAR HEMOGLOBIN 28.3 pg (27.0-33.0); MEAN CORPUSCULAR VOLUME 88.5 fl (80.0-96.0); MONO # 0.4 10^3/uL (0.0-0.8); MONO % 5.5 % (2.0-8.0); NEUTROPHILS # 5.3 10^3/uL (1.5-8.5); NEUTROPHILS % 71.3 % (36.0-66.0); PLATELET COUNT, AUTOMATED 267 10^3/uL (150-450); RED BLOOD COUNT 4.42 10^6/uL (4.30-6.10); WHITE BLOOD COUNT 7.4 10^3/uL (4.0-10.0)
[2022-06-10 21:48] LABS: VENOUS BASE EXCESS 0.1 (-2.0-2.0); VENOUS HCO3 25.4 MEQ/L (23.0-27.0); VENOUS O2 SATURATION 87.7 % (60.0-80.0); VENOUS PARTIAL PRESSURE CO2 43.6 mmHg (38.0-50.0); VENOUS PARTIAL PRESSURE O2 52.6 mmHg (30.0-50.0); VENOUS PH 7.383 UNITS (7.330-7.430); VENOUS STANDARD HCO3 24.3 MEQ/L; VENOUS TOTAL CO2 26.7 MEQ/L (24.0-28.0)
[2022-06-10 22:00] LABS: AMPHETAMINES LEVEL URINE NEGATIVE (NEGATIVE); BARBITURATES URINE NEGATIVE (NEGATIVE); BENZODIAZEPINES URINE NEGATIVE (NEGATIVE); CANNABINOIDS URINE NEGATIVE (NEGATIVE); COCAINE METABOLITE URINE NEGATIVE (NEGATIVE); METHADONE URINE NEGATIVE (NEGATIVE); OPIATES URINE NEGATIVE (NEGATIVE); PHENCYCLIDINE URINE NEGATIVE (NEGATIVE)
[2022-06-10 22:02] LABS: CK-MB VALUE MASS 1.1 NG/ML (<3.6); ETHYL ALCOHOL (ETHANOL) 0.004 % (0.000-0.010); OSMOLALITY SERUM 314 MOSM/KG (275-295)
[2022-06-10 22:03] LABS: ACETAMINOPHEN LEVEL < 2.0 UG/ML (10.0-20.0); BILIRUBIN,DIRECT 0.1 MG/DL (<0.4); CPK CREATINE PHOSPHOKINASE 101 U/L (46-171); MB/CK RELATIVE INDEX 1.08 (< OR =4)
[2022-06-10 22:04] LABS: SALICYLATE LEVEL < 3.0 MG/DL (<30)
[2022-06-10 22:05] LABS: RSV AMPLIFICATION NEGATIVE (NEGATIVE)
[2022-06-10 22:06] LABS: THYROID STIMULATING HORMONE 0.288 uIU/ML (0.55-4.78)
[2022-06-10 22:27] LABS: ALBUMIN 3.3 G/DL (3.2-5.2); ALKALINE PHOSPHATASE 91 U/L (46-116); ALT/SGPT 15 U/L (7.0-40); AST/SGOT 21 U/L (<34); BILIRUBIN,TOTAL 0.4 MG/DL (0.3-1.2); BLOOD UREA NITROGEN 13 MG/DL (9-23); CALCIUM LEVEL 9.1 MG/DL (8.5-10.1); CARBON DIOXIDE LEVEL 27 MMOL/L (20-31); CHLORIDE LEVEL 96 MMOL/L (98-107); CREATININE FOR GFR 0.71 MG/DL (0.70-1.30); GLOMERULAR FILTRATION RATE > 60.0 (>56); GLUCOSE, FASTING 657 MG/DL (60-100); POTASSIUM SERUM 4.7 MMOL/L (3.5-5.1); SODIUM LEVEL 133 MMOL/L (136-145); TOTAL PROTEIN 7.4 G/DL (5.7-8.2)
[2022-06-10] MEDS ORDERED: HumuLIN R (REGULAR) INSULIN (NovoLIN R) **100U/ML** PER UNIT IV STA (22:40)
[2022-06-11] MEDS ORDERED: BENZ-52 PO (00:52)
[2022-06-11 01:30] VITALS: BP 114/75
== END 2022-06-11 02:11 | disposition home or self-care (01) ==
LOC: M ED 19:31
DX: T88.7XXA Unspecified adverse effect of drug or medicament, initial encounter (principal); R73.9 Hyperglycemia, unspecified; G24.02 Drug induced acute dystonia; Z79.899 Other long term (current) drug therapy; Z79.82 Long term (current) use of aspirin; Z91.018 Allergy to other foods; Z88.8 Allergy status to other drugs, medicaments and biological substances
CPT/HCPCS: 70450; 80048; 80076; 80143; 80307; 81002; 82010; 82077; 82140; 82550; 82553; 82803; 83605; 83930; 84443; 85025; 87631; 93005; 93041; 94760; 96361; 96372; 96374; 99285; J0515; J1815

== ENCOUNTER 2022-06-12 20:00 | Inpatient (IN) | payer MEDICAID, OTHER ==
[~2022-06-12] VITALS: Ht 162.6 cm; Wt 72.2 kg
[2022-06-12 20:29] LABS: BASO % 0.3 % (0.0-1.0); EOS # 0.1 10^3/uL (0.0-0.5); EOS % 0.7 % (0.0-3.0); HEMATOCRIT 41.5 % (42.0-52.0); HEMOGLOBIN 13.2 g/dl (13.5-17.5); LYMPH # 1.5 10^3/uL (1.5-5.0); MEAN CORPUSCULAR HEMOGLOBIN 28.1 pg (27.0-33.0); MEAN CORPUSCULAR HGB CONC 31.8 g/dl (32.0-36.5); MEAN CORPUSCULAR VOLUME 88.5 fl (80.0-96.0); MONO # 0.5 10^3/uL (0.0-0.8); NEUTROPHILS % 77.6 % (36.0-66.0); RED BLOOD COUNT 4.69 10^6/uL (4.30-6.10); WHITE BLOOD COUNT 9.1 10^3/uL (4.0-10.0)
[2022-06-12 20:58] LABS: BILIRUBIN,DIRECT 0.1 MG/DL (<0.4)
[2022-06-12 21:01] LABS: THYROID STIMULATING HORMONE 0.322 uIU/ML (0.55-4.78)
[2022-06-12 21:05] LABS: ALBUMIN 3.4 G/DL (3.2-5.2); ALKALINE PHOSPHATASE 86 U/L (46-116); ALT/SGPT 15 U/L (7.0-40); AST/SGOT 28 U/L (<34); BILIRUBIN,TOTAL 0.4 MG/DL (0.3-1.2); BLOOD UREA NITROGEN 14 MG/DL (9-23); CALCIUM LEVEL 9.3 MG/DL (8.5-10.1); CARBON DIOXIDE LEVEL 21 MMOL/L (20-31); CHLORIDE LEVEL 98 MMOL/L (98-107); CK-MB VALUE MASS < 1.0 NG/ML (<3.6); CPK CREATINE PHOSPHOKINASE 90 U/L (46-171); CREATININE FOR GFR 0.71 MG/DL (0.70-1.30); GLOMERULAR FILTRATION RATE > 60.0 (>56); GLUCOSE, FASTING 527 MG/DL (60-100); MB/CK RELATIVE INDEX 1.11 (< OR =4); POTASSIUM SERUM 4.9 MMOL/L (3.5-5.1); SODIUM LEVEL 132 MMOL/L (136-145); TOTAL PROTEIN 7.6 G/DL (5.7-8.2)
[2022-06-12] MEDS ORDERED: HumuLIN R (REGULAR) INSULIN (NovoLIN R) **100U/ML** PER UNIT IV ONE (21:10)
[2022-06-12 21:18] LABS: RSV AMPLIFICATION NEGATIVE (NEGATIVE)
[2022-06-12] MEDS ORDERED: NS 1,000 ML IV ONE (22:10)
[2022-06-12] MEDS ORDERED: DEXTROSE 50% 50 ML SYRINGE IV PRN (22:30)
[2022-06-12] MEDS ORDERED: GLUCAGON INJ 1MG VIAL SC PRN (22:30)
[2022-06-12] MEDS ORDERED: GLUCOSE 4GM CHEW TABLET PO PRN (22:30)
[2022-06-12] MEDS: BENZTROPINE MESYLATE 2MG/2ML VIAL IM SCH (23:48)
[2022-06-12] MEDS: INSULIN LISPRO (NovoLOG) PER UNIT SC SCH (23:49)
[2022-06-13] MEDS ORDERED: HALO5TAB33 PO (03:10)
[2022-06-13] MEDS ORDERED: BENZ-52 PO (03:10)
[2022-06-13] MEDS ORDERED: MIRT-10 PO (03:10)
[2022-06-13] MEDS ORDERED: METF500T13 PO (03:10)
[2022-06-13] MEDS ORDERED: QUET400T2 PO (03:10)
[2022-06-13] MEDS ORDERED: HOME MED LIST COMPLETE! XX SCH (03:15)
[2022-06-13 06:29] LABS: BASO # 0.1 10^3/uL (0.0-0.2); BASO % 0.5 % (0.0-1.0); EOS # 0.1 10^3/uL (0.0-0.5); HEMATOCRIT 36.9 % (42.0-52.0); LYMPH # 1.9 10^3/uL (1.5-5.0); LYMPH % 18.9 % (24.0-44.0); MEAN CORPUSCULAR HEMOGLOBIN 28.4 pg (27.0-33.0); MEAN CORPUSCULAR HGB CONC 32.5 g/dl (32.0-36.5); MEAN CORPUSCULAR VOLUME 87.2 fl (80.0-96.0); MONO # 0.6 10^3/uL (0.0-0.8); MONO % 5.8 % (2.0-8.0); NEUTROPHILS # 7.4 10^3/uL (1.5-8.5); NEUTROPHILS % 73.3 % (36.0-66.0); PLATELET COUNT, AUTOMATED 256 10^3/uL (150-450); RED BLOOD COUNT 4.23 10^6/uL (4.30-6.10)
[2022-06-13 06:52] LABS: ALBUMIN 2.8 G/DL (3.2-5.2); ALKALINE PHOSPHATASE 71 U/L (46-116); ALT/SGPT 10 U/L (7.0-40); AST/SGOT 12 U/L (<34); BILIRUBIN,TOTAL 0.5 MG/DL (0.3-1.2); BLOOD UREA NITROGEN 12 MG/DL (9-23); CALCIUM LEVEL 8.5 MG/DL (8.5-10.1); CARBON DIOXIDE LEVEL 23 MMOL/L (20-31); CHLORIDE LEVEL 103 MMOL/L (98-107); CREATININE FOR GFR 0.44 MG/DL (0.70-1.30); GLOMERULAR FILTRATION RATE > 60.0 (>56); GLUCOSE, FASTING 328 MG/DL (60-100); POTASSIUM SERUM 3.6 MMOL/L (3.5-5.1); SODIUM LEVEL 136 MMOL/L (136-145); TOTAL PROTEIN 6.4 G/DL (5.7-8.2)
[2022-06-13] MEDS: INSULIN LISPRO (NovoLOG) PER UNIT SC SCH ×3 (07:54→17:30)
[2022-06-13] MEDS ORDERED: NS 1,000 ML IV SCH (07:55)
[2022-06-13] MEDS ORDERED: LEVEMIR (INSULIN DETEMIR) 1 UNITS/0.01ML SC SCH ×2 (09:00→21:00)
[2022-06-13] MEDS: BENZTROPINE MESYLATE 2MG/2ML VIAL IM SCH ×2 (09:46→21:19)
[2022-06-13] MEDS ORDERED: METAL LOCK LOOP XX ONE (10:00)
[2022-06-13] MEDS ORDERED: INSULIN LISPRO (NovoLOG) PER UNIT SC SCH (21:00)
[2022-06-13 22:00] VITALS: BP 106/81
[2022-06-14] MEDS ORDERED: TEMAZEPAM 7.5 MG CAP PO ONE (01:00)
[2022-06-14 02:00] VITALS: BP 106/61
[2022-06-14 05:11] VITALS: BP 106/62
[2022-06-14 06:14] LABS: HEMOGLOBIN 11.6 g/dl (13.5-17.5); MEAN CORPUSCULAR HEMOGLOBIN 28.5 pg (27.0-33.0); MEAN CORPUSCULAR HGB CONC 32.2 g/dl (32.0-36.5); MEAN CORPUSCULAR VOLUME 88.5 fl (80.0-96.0); PLATELET COUNT, AUTOMATED 238 10^3/uL (150-450); RED BLOOD COUNT 4.07 10^6/uL (4.30-6.10); WHITE BLOOD COUNT 9.2 10^3/uL (4.0-10.0)
[2022-06-14 06:37] LABS: ALBUMIN 2.6 G/DL (3.2-5.2); ALKALINE PHOSPHATASE 63 U/L (46-116); ALT/SGPT 10 U/L (7.0-40); AST/SGOT 15 U/L (<34); BILIRUBIN,TOTAL 0.3 MG/DL (0.3-1.2); BLOOD UREA NITROGEN 12 MG/DL (9-23); CALCIUM LEVEL 8.2 MG/DL (8.5-10.1); CARBON DIOXIDE LEVEL 22 MMOL/L (20-31); CHLORIDE LEVEL 104 MMOL/L (98-107); CREATININE FOR GFR 0.46 MG/DL (0.70-1.30); GLOMERULAR FILTRATION RATE > 60.0 (>56); GLUCOSE, FASTING 216 MG/DL (60-100); POTASSIUM SERUM 3.6 MMOL/L (3.5-5.1); SODIUM LEVEL 138 MMOL/L (136-145)
[2022-06-14] MEDS: BENZTROPINE MESYLATE 2MG/2ML VIAL IM SCH (09:00)
[2022-06-14] MEDS ORDERED: TAMSULOSIN 0.4 MG CAP PO SCH (09:00)
[2022-06-14] MEDS ORDERED: LEVEMIR (INSULIN DETEMIR) 1 UNITS/0.01ML SC SCH (09:00)
[2022-06-14] MEDS: INSULIN LISPRO (NovoLOG) PER UNIT SC SCH ×2 (09:02→12:27)
[2022-06-14 10:30] VITALS: BP 106/63
== END 2022-06-14 15:15 | disposition left against medical advice (07) | DRG 42 ==
LOC: M ED 20:00 → EDBD 20:00 → M ED INP 22:53 → M MS5PR 06-13 17:30
PROVIDERS: ADMIT Family Medicine; ATTEND Internal Medicine
DX: G24.02 Drug induced acute dystonia (principal); E11.65 Type 2 diabetes mellitus with hyperglycemia; F20.9 Schizophrenia, unspecified; N40.0 Benign prostatic hyperplasia without lower urinary tract symptoms; M19.90 Unspecified osteoarthritis, unspecified site; F10.10 Alcohol abuse, uncomplicated; T43.4X5A Adverse effect of butyrophenone and thiothixene neuroleptics, initial encounter; Z79.82 Long term (current) use of aspirin; Z79.4 Long term (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 of insulin; Z79.899 Other long term (current) drug therapy; Z88.8 Allergy status to other drugs, medicaments and biological substances; Z91.018 Allergy to other foods; Z91.14 Patient's other noncompliance with medication regimen; F19.20 Other psychoactive substance dependence, uncomplicated; Z91.119 Patient's noncompliance with dietary regimen due to unspecified reason; T38.3X6A Underdosing of insulin and oral hypoglycemic [antidiabetic] drugs, initial encounter

== ENCOUNTER 2022-07-13 07:37 | Emergency (ER) | payer OTHER ==
[~2022-07-13] VITALS: Ht 170.2 cm; Wt 70.5 kg
[~2022-07-13 07:37] MED LIST changes: +MIRT-10 PO
[2022-07-13 08:45] LABS: HEMATOCRIT 39.4 % (42.0-52.0); HEMOGLOBIN 12.9 g/dl (13.5-17.5); MEAN CORPUSCULAR HEMOGLOBIN 28.5 pg (27.0-33.0); MEAN CORPUSCULAR HGB CONC 32.7 g/dl (32.0-36.5); MEAN CORPUSCULAR VOLUME 87.2 fl (80.0-96.0); PLATELET COUNT, AUTOMATED 295 10^3/uL (150-450); RED BLOOD COUNT 4.52 10^6/uL (4.30-6.10); WHITE BLOOD COUNT 9.5 10^3/uL (4.0-10.0)
[2022-07-13 08:55] LABS: RSV AMPLIFICATION NEGATIVE (NEGATIVE)
[2022-07-13 09:02] LABS: ETHYL ALCOHOL (ETHANOL) 0.003 % (0.000-0.010)
[2022-07-13 09:04] LABS: ALBUMIN 3.9 G/DL (3.2-5.2); ALKALINE PHOSPHATASE 98 U/L (46-116); ALT/SGPT 17 U/L (7.0-40); AST/SGOT 15 U/L (<34); BILIRUBIN,DIRECT 0.1 MG/DL (<0.4); BILIRUBIN,TOTAL 0.3 MG/DL (0.3-1.2); BLOOD UREA NITROGEN 15 MG/DL (9-23); CALCIUM LEVEL 9.7 MG/DL (8.5-10.1); CARBON DIOXIDE LEVEL 28 MMOL/L (20-31); CHLORIDE LEVEL 96 MMOL/L (98-107); GLOMERULAR FILTRATION RATE > 60.0 (>56); GLUCOSE, FASTING 381 MG/DL (60-100); POTASSIUM SERUM 4.8 MMOL/L (3.5-5.1); SALICYLATE LEVEL < 3.0 MG/DL (<30); SODIUM LEVEL 133 MMOL/L (136-145); TOTAL PROTEIN 8.3 G/DL (5.7-8.2)
[2022-07-13 09:05] LABS: ACETAMINOPHEN LEVEL < 2.0 UG/ML (10.0-20.0)
[2022-07-13 11:17] LABS: BARBITURATES URINE NEGATIVE (NEGATIVE); BENZODIAZEPINES URINE NEGATIVE (NEGATIVE); CANNABINOIDS URINE NEGATIVE (NEGATIVE); METHADONE URINE NEGATIVE (NEGATIVE); OPIATES URINE NEGATIVE (NEGATIVE); PHENCYCLIDINE URINE NEGATIVE (NEGATIVE)
[2022-07-13 11:19] LABS: AMPHETAMINES LEVEL URINE POSITIVE (NEGATIVE); COCAINE METABOLITE URINE POSITIVE (NEGATIVE)
[2022-07-13 15:21] VITALS: BP 121/77
== END 2022-07-13 16:33 | disposition home or self-care (01) ==
LOC: M ED 07:37
DX: F20.9 Schizophrenia, unspecified (principal); F14.10 Cocaine abuse, uncomplicated; F15.10 Other stimulant abuse, uncomplicated; E11.9 Type 2 diabetes mellitus without complications; N40.1 Benign prostatic hyperplasia with lower urinary tract symptoms; Z91.199 Patient's noncompliance with other medical treatment and regimen due to unspecified reason; Z88.8 Allergy status to other drugs, medicaments and biological substances; Z91.018 Allergy to other foods; Z79.899 Other long term (current) drug therapy; Z79.4 Long term (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 of insulin; Z79.82 Long term (current) use of aspirin; Z79.84 Long term (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 of oral hypoglycemic drugs

== ENCOUNTER 2022-07-21 02:38 | Emergency (ER) | payer OTHER ==
[~2022-07-21] VITALS: Ht 170.2 cm; Wt 71.4 kg
[2022-07-21 02:38] VITALS: BP 140/88
[2022-07-21 03:35] LABS: VENOUS HCO3 25.5 MEQ/L (23.0-27.0); VENOUS O2 SATURATION 78.5 % (60.0-80.0); VENOUS PARTIAL PRESSURE CO2 44.7 mmHg (38.0-50.0); VENOUS PARTIAL PRESSURE O2 43.8 mmHg (30.0-50.0); VENOUS PH 7.374 UNITS (7.330-7.430); VENOUS TOTAL CO2 26.9 MEQ/L (24.0-28.0)
[2022-07-21 03:37] LABS: BASO % 0.3 % (0.0-1.0); EOS % 0.1 % (0.0-3.0); HEMATOCRIT 38.8 % (42.0-52.0); HEMOGLOBIN 12.3 g/dl (13.5-17.5); LYMPH # 1.9 10^3/uL (1.5-5.0); LYMPH % 14.9 % (24.0-44.0); MEAN CORPUSCULAR HEMOGLOBIN 28.1 pg (27.0-33.0); MEAN CORPUSCULAR HGB CONC 31.7 g/dl (32.0-36.5); MEAN CORPUSCULAR VOLUME 88.6 fl (80.0-96.0); MONO # 0.9 10^3/uL (0.0-0.8); MONO % 7.3 % (2.0-8.0); NEUTROPHILS # 9.8 10^3/uL (1.5-8.5); NEUTROPHILS % 76.9 % (36.0-66.0); PLATELET COUNT, AUTOMATED 293 10^3/uL (150-450); RED BLOOD COUNT 4.38 10^6/uL (4.30-6.10); WHITE BLOOD COUNT 12.8 10^3/uL (4.0-10.0)
[2022-07-21 05:02] LABS: OSMOLALITY SERUM 294 MOSM/KG (275-295)
[2022-07-21 05:36] LABS: ALBUMIN 3.7 G/DL (3.2-5.2); ALKALINE PHOSPHATASE 102 U/L (46-116); ALT/SGPT 27 U/L (7.0-40); AST/SGOT 23 U/L (<34); BILIRUBIN,DIRECT 0.1 MG/DL (<0.4); BILIRUBIN,TOTAL 0.3 MG/DL (0.3-1.2); BLOOD UREA NITROGEN 13 MG/DL (9-23); CALCIUM LEVEL 9.3 MG/DL (8.5-10.1); CARBON DIOXIDE LEVEL 24 MMOL/L (20-31); CHLORIDE LEVEL 98 MMOL/L (98-107); GLOMERULAR FILTRATION RATE > 60.0 (>56); GLUCOSE, FASTING 323 MG/DL (60-100); LIPASE 23 U/L (12-53); POTASSIUM SERUM 3.9 MMOL/L (3.5-5.1); SODIUM LEVEL 134 MMOL/L (136-145); TOTAL PROTEIN 8.1 G/DL (5.7-8.2)
[2022-07-21 05:48] LABS: HEMOGLOBIN A1c > 14.0 % (4.0-6.0)
[2022-07-22] MEDS ORDERED: MIRT-10 PO (08:53)
[2022-07-22] MEDS ORDERED: HALO5TAB33 PO (08:53)
[2022-07-22] MEDS ORDERED: MED REC COMMENT (08:57)
== END 2022-07-21 06:45 | disposition left against medical advice (07) ==
LOC: M ED 02:38
DX: Z53.21 Procedure and treatment not carried out due to patient leaving prior to being seen by health care provider (principal)

== ENCOUNTER 2022-07-21 09:32 | Emergency (ER) | payer OTHER ==
[~2022-07-21] VITALS: Ht 170.2 cm; Wt 72.3 kg
[2022-07-21 10:07] LABS: HEMOGLOBIN 12.4 g/dl (13.5-17.5); MEAN CORPUSCULAR HEMOGLOBIN 28.2 pg (27.0-33.0); MEAN CORPUSCULAR HGB CONC 31.8 g/dl (32.0-36.5); MEAN CORPUSCULAR VOLUME 88.8 fl (80.0-96.0); PLATELET COUNT, AUTOMATED 285 10^3/uL (150-450); RED BLOOD COUNT 4.39 10^6/uL (4.30-6.10); WHITE BLOOD COUNT 9.7 10^3/uL (4.0-10.0)
[2022-07-21 10:29] LABS: BARBITURATES URINE NEGATIVE (NEGATIVE); BENZODIAZEPINES URINE NEGATIVE (NEGATIVE); CANNABINOIDS URINE NEGATIVE (NEGATIVE); METHADONE URINE NEGATIVE (NEGATIVE); OPIATES URINE NEGATIVE (NEGATIVE); PHENCYCLIDINE URINE NEGATIVE (NEGATIVE)
[2022-07-21 10:31] LABS: ETHYL ALCOHOL (ETHANOL) 0.004 % (0.000-0.010)
[2022-07-21 10:33] LABS: ACETAMINOPHEN LEVEL < 2.0 UG/ML (10.0-20.0); BILIRUBIN,DIRECT 0.1 MG/DL (<0.4); SALICYLATE LEVEL < 3.0 MG/DL (<30)
[2022-07-21 10:35] LABS: THYROID STIMULATING HORMONE 0.507 uIU/ML (0.55-4.78)
[2022-07-21 10:36] LABS: AMPHETAMINES LEVEL URINE POSITIVE (NEGATIVE); COCAINE METABOLITE URINE POSITIVE (NEGATIVE)
[2022-07-21 10:41] LABS: ALBUMIN 3.7 G/DL (3.2-5.2); ALKALINE PHOSPHATASE 100 U/L (46-116); ALT/SGPT 24 U/L (7.0-40); AST/SGOT 22 U/L (<34); BILIRUBIN,TOTAL 0.3 MG/DL (0.3-1.2); BLOOD UREA NITROGEN 12 MG/DL (9-23); CALCIUM LEVEL 9.6 MG/DL (8.5-10.1); CARBON DIOXIDE LEVEL 24 MMOL/L (20-31); CHLORIDE LEVEL 97 MMOL/L (98-107); CREATININE FOR GFR 0.55 MG/DL (0.70-1.30); GLOMERULAR FILTRATION RATE > 60.0 (>56); GLUCOSE, FASTING 431 MG/DL (60-100); POTASSIUM SERUM 4.1 MMOL/L (3.5-5.1); RSV AMPLIFICATION NEGATIVE (NEGATIVE); SODIUM LEVEL 134 MMOL/L (136-145); TOTAL PROTEIN 7.7 G/DL (5.7-8.2)
[2022-07-21] MEDS ORDERED: LEVEMIR (INSULIN DETEMIR) 1 UNITS/0.01ML SC ONE (18:35)
[2022-07-21] MEDS: INSULIN LISPRO (NovoLOG) PER UNIT SC SCH (18:39)
[2022-07-21] MEDS ORDERED: metFORMIN (GLUCOPHAGE) 500MG TAB PO ONE (19:35)
[2022-07-21] MEDS ORDERED: HumuLIN R (REGULAR) INSULIN (NovoLIN R) **100U/ML** PER UNIT IV ONE (20:00)
[2022-07-21] MEDS ORDERED: INSULIN LISPRO (NovoLOG) PER UNIT SC SCH (21:00)
[2022-07-22] MEDS: INSULIN LISPRO (NovoLOG) PER UNIT SC SCH ×2 (07:30→11:59)
[2022-07-22] MEDS ORDERED: HALO5TAB33 PO (08:53)
[2022-07-22] MEDS ORDERED: MIRT-10 PO (08:53)
[2022-07-22] MEDS ORDERED: MED REC COMMENT (08:57)
[2022-07-22] MEDS ORDERED: LEVEMIR (INSULIN DETEMIR) 1 UNITS/0.01ML SC SCH (09:00)
[2022-07-22] MEDS ORDERED: HOME MED LIST COMPLETE! XX SCH (09:00)
[2022-07-22 12:38] VITALS: BP 100/65
== END 2022-07-22 13:35 | disposition home or self-care (01) ==
LOC: M ED 09:32
DX: F14.151 Cocaine abuse with cocaine-induced psychotic disorder with hallucinations (principal); F15.151 Other stimulant abuse with stimulant-induced psychotic disorder with hallucinations; E11.65 Type 2 diabetes mellitus with hyperglycemia; F20.9 Schizophrenia, unspecified; Z79.899 Other long term (current) drug therapy; Z79.82 Long term (current) use of aspirin; Z79.4 Long term (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 of insulin; Z79.84 Long term (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 of oral hypoglycemic drugs; Z88.8 Allergy status to other drugs, medicaments and biological substances; Z91.018 Allergy to other foods
CPT/HCPCS: 80048; 80076; 80143; 80307; 82077; 84443; 85027; 86780; 87631; 96374; 99284; J1815

== ENCOUNTER 2022-10-30 02:50 | Inpatient (IN) | payer MEDICAID, OTHER ==
[~2022-10-30] VITALS: Ht 170.2 cm; Wt 84.1 kg
[~2022-10-30 02:50] MED LIST changes: -BENZ-52 PO; +BENZ1TAB5 PO
[2022-10-30 03:29] LABS: HEMATOCRIT 40.9 % (42.0-52.0); HEMOGLOBIN 13.4 g/dl (13.5-17.5); MEAN CORPUSCULAR HEMOGLOBIN 28.6 pg (27.0-33.0); MEAN CORPUSCULAR HGB CONC 32.8 g/dl (32.0-36.5); MEAN CORPUSCULAR VOLUME 87.2 fl (80.0-96.0); PLATELET COUNT, AUTOMATED 256 10^3/uL (150-450); RED BLOOD COUNT 4.69 10^6/uL (4.30-6.10); WHITE BLOOD COUNT 11.3 10^3/uL (4.0-10.0)
[2022-10-30 04:00] LABS: ETHYL ALCOHOL (ETHANOL) 0.004 % (0.000-0.010)
[2022-10-30 04:01] LABS: ACETAMINOPHEN LEVEL < 2.0 UG/ML (10.0-20.0)
[2022-10-30 04:02] LABS: SALICYLATE LEVEL < 3.0 MG/DL (<30)
[2022-10-30 04:04] LABS: THYROID STIMULATING HORMONE 0.592 uIU/ML (0.55-4.78)
[2022-10-30] MEDS ORDERED: RIZA10TA2 PO (04:06)
[2022-10-30] MEDS ORDERED: TUMS500C PO (04:06)
[2022-10-30] MEDS ORDERED: ALBU8.5H INH (04:06)
[2022-10-30] MEDS ORDERED: ROZE8TAB16 PO (04:06)
[2022-10-30] MEDS ORDERED: ACET-897 PO (04:06)
[2022-10-30] MEDS ORDERED: MIRA1POW3 PO (04:06)
[2022-10-30] MEDS ORDERED: HOME MED LIST COMPLETE! XX SCH (04:10)
[2022-10-30 04:12] LABS: ALBUMIN 4.7 G/DL (3.2-5.2); ALKALINE PHOSPHATASE 85 U/L (46-116); ALT/SGPT < 9 U/L (7.0-40); AST/SGOT 10 U/L (<34); BILIRUBIN,DIRECT 0.2 MG/DL (<0.4); BILIRUBIN,TOTAL 0.4 MG/DL (0.3-1.2); BLOOD UREA NITROGEN 29 MG/DL (9-23); CALCIUM LEVEL 9.9 MG/DL (8.5-10.1); CARBON DIOXIDE LEVEL 20 MMOL/L (20-31); CHLORIDE LEVEL 99 MMOL/L (98-107); CREATININE FOR GFR 0.88 MG/DL (0.70-1.30); GLOMERULAR FILTRATION RATE > 60.0 (>56); GLUCOSE, FASTING 575 MG/DL (60-100); POTASSIUM SERUM 4.7 MMOL/L (3.5-5.1); SODIUM LEVEL 133 MMOL/L (136-145); TOTAL PROTEIN 8.2 G/DL (5.7-8.2)
[2022-10-30] MEDS ORDERED: LEVEMIR (INSULIN DETEMIR) 1 UNITS/0.01ML SC ONE (04:20)
[2022-10-30] MEDS ORDERED: HumuLIN R (REGULAR) INSULIN (NovoLIN R) **100U/ML** PER UNIT SC ONE (04:20)
[2022-10-30 05:59] LABS: BARBITURATES URINE NEGATIVE (NEGATIVE)
[2022-10-30 06:00] LABS: BENZODIAZEPINES URINE NEGATIVE (NEGATIVE); CANNABINOIDS URINE NEGATIVE (NEGATIVE); COCAINE METABOLITE URINE NEGATIVE (NEGATIVE); METHADONE URINE NEGATIVE (NEGATIVE); OPIATES URINE NEGATIVE (NEGATIVE); PHENCYCLIDINE URINE NEGATIVE (NEGATIVE)
[2022-10-30 06:06] LABS: AMPHETAMINES LEVEL URINE POSITIVE (NEGATIVE)
[2022-10-30] MEDS ORDERED: CALCIUM CARBONATE 500 MG CHEW U/D PO PRN ×2 (07:55→12:45)
[2022-10-30] MEDS ORDERED: RAMELTEON 8 MG TAB (ROZEREM) PO PRN ×2 (07:55→12:45)
[2022-10-30] MEDS ORDERED: ALBUTEROL 90 MCG/ACT 8GM HFA INHALER INH PRN ×2 (07:55→12:45)
[2022-10-30] MEDS ORDERED: RIZATRIPTAN BENZOATE 10 MG TAB PO PRN ×2 (07:55→12:45)
[2022-10-30] MEDS ORDERED: ACETAMINOPHEN 500 MG TAB PO PRN ×4 (07:55→12:45)
[2022-10-30] MEDS ORDERED: INSULIN LISPRO (NovoLOG) PER UNIT SC SCH (08:00)
[2022-10-30] MEDS ORDERED: metFORMIN (GLUCOPHAGE) 500MG TAB PO SCH (08:00)
[2022-10-30] MEDS ORDERED: TOPIRAMATE (TopAMAX) 100 MG TAB PO SCH (09:00)
[2022-10-30] MEDS ORDERED: TAMSULOSIN 0.4 MG CAP PO SCH (09:00)
[2022-10-30] MEDS ORDERED: GABAPENTIN 300 MG CAP PO SCH (09:00)
[2022-10-30] MEDS ORDERED: BENZTROPINE 0.5 MG TAB PO SCH (09:00)
[2022-10-30] MEDS ORDERED: GLUCAGON INJ 1MG VIAL SC PRN (12:50)
[2022-10-30] MEDS ORDERED: DEXTROSE 50% 50ML SYRINGE IV PRN (12:50)
[2022-10-30] MEDS ORDERED: GLUCOSE 4GM CHEW TABLET PO PRN (12:50)
[2022-10-30] MEDS: INSULIN LISPRO (NovoLOG) PER UNIT SC SCH ×3 (14:56→21:52)
[2022-10-30 15:45] VITALS: BP 105/68
[2022-10-30] MEDS: ACETAMINOPHEN 325 MG TAB PO PRN (16:23)
[2022-10-30] MEDS: GABAPENTIN 300 MG CAP PO SCH ×2 (16:23→21:51)
[2022-10-30] MEDS: metFORMIN (GLUCOPHAGE) 500MG TAB PO SCH (18:23)
[2022-10-30] MEDS ORDERED: QUEtiapine FUMARATE 200 MG TAB PO SCH (21:00)
[2022-10-30] MEDS ORDERED: MIRTAZAPINE 15 MG TAB PO SCH (21:00)
[2022-10-30] MEDS: QUEtiapine FUMARATE 200 MG TAB PO SCH (21:51)
[2022-10-30] MEDS: TOPIRAMATE (TopAMAX) 100 MG TAB PO SCH (21:52)
[2022-10-30] MEDS: MIRTAZAPINE 15 MG TAB PO SCH (21:52)
[2022-10-31 06:25] VITALS: BP 94/64
[2022-10-31] MEDS: INSULIN LISPRO (NovoLOG) PER UNIT SC SCH ×4 (06:43→21:37)
[2022-10-31] MEDS: TOPIRAMATE (TopAMAX) 100 MG TAB PO SCH ×2 (08:53→21:38)
[2022-10-31] MEDS: TAMSULOSIN 0.4 MG CAP PO SCH (08:53)
[2022-10-31] MEDS: GABAPENTIN 300 MG CAP PO SCH ×3 (08:53→21:37)
[2022-10-31] MEDS: BENZTROPINE 0.5 MG TAB PO SCH (08:53)
[2022-10-31] MEDS: metFORMIN (GLUCOPHAGE) 500MG TAB PO SCH ×2 (08:53→17:29)
[2022-10-31] MEDS: ACETAMINOPHEN 325 MG TAB PO PRN (08:54)
[2022-10-31] MEDS ORDERED: NICOTINE 14 MG/24 HR TRANSDERMAL TD PRN (10:50)
[2022-10-31 12:50] LABS: HEMOGLOBIN A1c 12.3 % (4.0-6.0)
[2022-10-31] MEDS ORDERED: LEVEMIR (INSULIN DETEMIR) 1 UNITS/0.01ML SC ONE (13:00)
[2022-10-31 13:04] LABS: ALBUMIN 3.8 G/DL (3.2-5.2); ALKALINE PHOSPHATASE 67 U/L (46-116); ALT/SGPT 13 U/L (7.0-40); AST/SGOT 17 U/L (<34); BILIRUBIN,TOTAL 0.4 MG/DL (0.3-1.2); BLOOD UREA NITROGEN 19 MG/DL (9-23); CARBON DIOXIDE LEVEL 22 MMOL/L (20-31); CHLORIDE LEVEL 106 MMOL/L (98-107); CREATININE FOR GFR 0.79 MG/DL (0.70-1.30); GLOMERULAR FILTRATION RATE > 60.0 (>56); GLUCOSE, FASTING 325 MG/DL (60-100); POTASSIUM SERUM 3.8 MMOL/L (3.5-5.1); SODIUM LEVEL 136 MMOL/L (136-145); TOTAL PROTEIN 7.1 G/DL (5.7-8.2)
[2022-10-31] MEDS ORDERED: INSULIN LISPRO (NovoLOG) PER UNIT SC SCH (17:30)
[2022-10-31 18:09] VITALS: BP 124/82
[2022-10-31] MEDS ORDERED: LEVEMIR (INSULIN DETEMIR) 1 UNITS/0.01ML SC SCH ×3 (21:00)
[2022-10-31] MEDS: LEVEMIR (INSULIN DETEMIR) 1 UNITS/0.01ML SC SCH (21:37)
[2022-10-31] MEDS: MIRTAZAPINE 15 MG TAB PO SCH (21:38)
[2022-10-31] MEDS: QUEtiapine FUMARATE 200 MG TAB PO SCH (21:38)
[2022-11-01 06:05] VITALS: BP 98/58
[2022-11-01] MEDS: INSULIN LISPRO (NovoLOG) PER UNIT SC SCH ×7 (07:05→20:46)
[2022-11-01 08:00] LABS: CHOLESTEROL RISK RATIO 2.47 (<5); HDL CHOLESTEROL 52.5 MG/DL (>40); LDL CHOLESTEROL 57.1 MG/DL (<100); NON-HDL-C 77.5 MG/DL
[2022-11-01] MEDS: TAMSULOSIN 0.4 MG CAP PO SCH (08:31)
[2022-11-01] MEDS: metFORMIN (GLUCOPHAGE) 500MG TAB PO SCH ×2 (08:31→18:33)
[2022-11-01] MEDS: GABAPENTIN 300 MG CAP PO SCH ×3 (08:31→20:46)
[2022-11-01] MEDS: TOPIRAMATE (TopAMAX) 100 MG TAB PO SCH ×2 (08:32→20:47)
[2022-11-01] MEDS: BENZTROPINE 0.5 MG TAB PO SCH (08:33)
[2022-11-01] MEDS: LEVEMIR (INSULIN DETEMIR) 1 UNITS/0.01ML SC SCH ×2 (08:33→20:45)
[2022-11-01 18:31] VITALS: BP 107/75
[2022-11-01] MEDS: MIRTAZAPINE 15 MG TAB PO SCH (20:46)
[2022-11-01] MEDS: QUEtiapine FUMARATE 200 MG TAB PO SCH (20:47)
[2022-11-02 05:51] VITALS: BP 114/70
[2022-11-02] MEDS: INSULIN LISPRO (NovoLOG) PER UNIT SC SCH ×7 (06:54→20:32)
[2022-11-02] MEDS: GABAPENTIN 300 MG CAP PO SCH ×3 (08:19→20:36)
[2022-11-02] MEDS: BENZTROPINE 0.5 MG TAB PO SCH (08:19)
[2022-11-02] MEDS: metFORMIN (GLUCOPHAGE) 500MG TAB PO SCH ×2 (08:19→17:00)
[2022-11-02] MEDS: TOPIRAMATE (TopAMAX) 100 MG TAB PO SCH ×2 (08:19→20:35)
[2022-11-02] MEDS: TAMSULOSIN 0.4 MG CAP PO SCH (08:19)
[2022-11-02] MEDS: LEVEMIR (INSULIN DETEMIR) 1 UNITS/0.01ML SC SCH ×2 (08:20→20:36)
[2022-11-02 18:48] VITALS: BP 139/81
[2022-11-02] MEDS: MIRTAZAPINE 15 MG TAB PO SCH (20:35)
[2022-11-02] MEDS: QUEtiapine FUMARATE 200 MG TAB PO SCH (20:36)
[2022-11-03 05:51] VITALS: BP 144/88
[2022-11-03] MEDS: INSULIN LISPRO (NovoLOG) PER UNIT SC SCH ×7 (06:27→20:45)
[2022-11-03] MEDS: metFORMIN (GLUCOPHAGE) 500MG TAB PO SCH ×2 (07:35→17:06)
[2022-11-03] MEDS: LEVEMIR (INSULIN DETEMIR) 1 UNITS/0.01ML SC SCH ×2 (08:18→20:44)
[2022-11-03] MEDS: TOPIRAMATE (TopAMAX) 100 MG TAB PO SCH ×2 (08:21→20:42)
[2022-11-03] MEDS: GABAPENTIN 300 MG CAP PO SCH ×3 (08:22→20:42)
[2022-11-03] MEDS: TAMSULOSIN 0.4 MG CAP PO SCH (08:22)
[2022-11-03] MEDS: BENZTROPINE 0.5 MG TAB PO SCH (08:22)
[2022-11-03] MEDS: ACETAMINOPHEN 325 MG TAB PO PRN (14:36)
[2022-11-03 16:19] VITALS: BP 115/78
[2022-11-03] MEDS ORDERED: IBUPROFEN 800 MG TAB PO PRN (20:30)
[2022-11-03] MEDS ORDERED: NORCO, ANEXSIA 5/325MG TABLET (HYDROcodone/ACETAMINOPHEN) PO ONE (20:30)
[2022-11-03] MEDS: QUEtiapine FUMARATE 200 MG TAB PO SCH (20:42)
[2022-11-03] MEDS: MIRTAZAPINE 15 MG TAB PO SCH (20:43)
[2022-11-04 06:39] VITALS: BP 120/72
[2022-11-04] MEDS: INSULIN LISPRO (NovoLOG) PER UNIT SC SCH ×4 (06:54→11:56)
[2022-11-04] MEDS: GABAPENTIN 300 MG CAP PO SCH ×2 (08:24→15:20)
[2022-11-04] MEDS: metFORMIN (GLUCOPHAGE) 500MG TAB PO SCH (08:24)
[2022-11-04] MEDS: TAMSULOSIN 0.4 MG CAP PO SCH (08:24)
[2022-11-04] MEDS: BENZTROPINE 0.5 MG TAB PO SCH (08:25)
[2022-11-04] MEDS: TOPIRAMATE (TopAMAX) 100 MG TAB PO SCH (08:25)
[2022-11-04] MEDS: LEVEMIR (INSULIN DETEMIR) 1 UNITS/0.01ML SC SCH (08:26)
[2022-11-04] MEDS ORDERED: MIRT-10 PO (11:33)
[2022-11-04] MEDS ORDERED: ROZE8TAB16 PO (11:33)
[2022-11-04] MEDS ORDERED: TOPI100T9 PO (11:33)
[2022-11-04] MEDS ORDERED: QUET400T2 PO (11:33)
[2022-11-04] MEDS ORDERED: HALO5TAB33 PO (11:33)
[2022-11-04] MEDS ORDERED: METF10004 PO (14:54)
[2022-11-04] MEDS ORDERED: INSUHUMDS SC (14:54)
[2022-11-04] MEDS ORDERED: INSUDET SC (14:54)
[2022-11-04] MEDS ORDERED: INSULIN LISPRO (NovoLOG) PER UNIT SC SCH (17:30)
[2022-11-04] MEDS ORDERED: metFORMIN (GLUCOPHAGE) 1000MG TABLET PO SCH (18:00)
[2022-11-04] MEDS ORDERED: LEVEMIR (INSULIN DETEMIR) 1 UNITS/0.01ML SC SCH (21:00)
== END 2022-11-04 15:33 | DRG 750 ==
LOC: M ED 02:50 → M ED INP 12:30 → EDBEDREQ 13:07 → M PSY 15:42
PROVIDERS: ADMIT Student in an Organized Health Care Education/Training Program; ATTEND Student in an Organized Health Care Education/Training Program
DX: F20.9 Schizophrenia, unspecified (principal); F15.159 Other stimulant abuse with stimulant-induced psychotic disorder, unspecified; Z56.0 Unemployment, unspecified; E11.65 Type 2 diabetes mellitus with hyperglycemia; N40.0 Benign prostatic hyperplasia without lower urinary tract symptoms; M19.90 Unspecified osteoarthritis, unspecified site; F17.200 Nicotine dependence, unspecified, uncomplicated; R45.851 Suicidal ideations; J45.909 Unspecified asthma, uncomplicated; R45.850 Homicidal ideations; E11.42 Type 2 diabetes mellitus with diabetic polyneuropathy; Z79.4 Long term (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 of insulin; Z79.84 Long term (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 of oral hypoglycemic drugs; Z79.899 Other long term (current) drug therapy; Z88.8 Allergy status to other drugs, medicaments and biological substances; Z91.018 Allergy to other foods; Z20.822 Contact with and (suspected) exposure to COVID-19

== ENCOUNTER → 2023-01-07 | Outpatient (REF) | payer MEDICAID ==
[~2023-01-07] MED LIST changes: +ACET-897 PO; +ALBU8.5H INH; +INSUDET SC; +INSUHUMDS SC; +METF10004 PO; +MIRA1POW3 PO; +RIZA10TA2 PO; +ROZE8TAB16 PO; +TUMS500C PO
[2023-01-07 18:19] LABS: ALKALINE PHOSPHATASE 71 U/L (46-116); ALT/SGPT 17 U/L (7.0-40); AST/SGOT < 8 U/L (<34); BILIRUBIN,TOTAL 0.3 MG/DL (0.3-1.2); BLOOD UREA NITROGEN 15 MG/DL (9-23); CALCIUM LEVEL 9.6 MG/DL (8.5-10.1); CARBON DIOXIDE LEVEL 25 MMOL/L (20-31); CHLORIDE LEVEL 106 MMOL/L (98-107); CHOLESTEROL LEVEL 137 MG/DL (<200); CHOLESTEROL RISK RATIO 2.56 (<5); CREATININE FOR GFR 0.74 MG/DL (0.70-1.30); GLOMERULAR FILTRATION RATE > 60.0 (>56); GLUCOSE, FASTING 320 MG/DL (60-100); HDL CHOLESTEROL 53.4 MG/DL (>40); NON-HDL-C 83.6 MG/DL; POTASSIUM SERUM 4.2 MMOL/L (3.5-5.1); SODIUM LEVEL 138 MMOL/L (136-145); TOTAL PROTEIN 7.6 G/DL (5.7-8.2); TRIGLYCERIDES LEVEL 78 MG/DL (<150)
[2023-01-07 18:20] LABS: THYROID STIMULATING HORMONE 0.451 uIU/ML (0.55-4.78)
[2023-01-07 18:25] LABS: HEMOGLOBIN A1c 10.9 % (4.0-6.0)
== END ==
LOC: M LAB REF 16:47
PROVIDERS: ATTEND Family Medicine Addiction Medicine
DX: F10.20 Alcohol dependence, uncomplicated (principal)

== ENCOUNTER 2023-02-16 00:48 | Emergency (ER) | payer MEDICAID ==
[~2023-02-16] VITALS: Ht 170.2 cm; Wt 75.9 kg
[~2023-02-16 00:48] MED LIST changes: -GABA-283 PO; +GABA-284 PO
[2023-02-16 00:56] VITALS: BP 141/89; TEMP 98.2; O2SAT 98
[2023-02-16] MEDS ORDERED: INSUDET SC (12:33)
[2023-02-16] MEDS ORDERED: CLON0.5T2 PO (12:33)
[2023-02-16] MEDS ORDERED: INSUHUMDS SC (12:33)
[2023-02-18] MEDS ORDERED: MIRT-62 PO (00:24)
== END 2023-02-16 02:07 | disposition left against medical advice (07) ==
LOC: EDBD 00:48 → M ED 00:48
DX: Z53.21 Procedure and treatment not carried out due to patient leaving prior to being seen by health care provider (principal)

== ENCOUNTER 2023-02-16 03:36 | Emergency (ER) | payer MEDICAID, OTHER ==
[~2023-02-16] VITALS: Ht 170.2 cm; Wt 80.0 kg
[2023-02-16 04:01] LABS: HEMOGLOBIN 13.5 g/dl (13.5-17.5); MEAN CORPUSCULAR HEMOGLOBIN 27.9 pg (27.0-33.0); MEAN CORPUSCULAR HGB CONC 31.4 g/dl (32.0-36.5); MEAN CORPUSCULAR VOLUME 88.8 fl (80.0-96.0); PLATELET COUNT, AUTOMATED 293 10^3/uL (150-450); RED BLOOD COUNT 4.84 10^6/uL (4.30-6.10); WHITE BLOOD COUNT 6.7 10^3/uL (4.0-10.0)
[2023-02-16 04:37] LABS: ETHYL ALCOHOL (ETHANOL) < 0.003 % (0.000-0.010)
[2023-02-16 04:38] LABS: ACETAMINOPHEN LEVEL < 2.0 UG/ML (10.0-20.0)
[2023-02-16 04:39] LABS: ALBUMIN 4.2 G/DL (3.2-5.2); ALKALINE PHOSPHATASE 74 U/L (46-116); ALT/SGPT 19 U/L (7.0-40); AST/SGOT 18 U/L (<34); BILIRUBIN,DIRECT 0.4 MG/DL (<0.4); BILIRUBIN,TOTAL 0.6 MG/DL (0.3-1.2); BLOOD UREA NITROGEN 17 MG/DL (9-23); CALCIUM LEVEL 9.3 MG/DL (8.5-10.1); CARBON DIOXIDE LEVEL 19 MMOL/L (20-31); CHLORIDE LEVEL 104 MMOL/L (98-107); GLOMERULAR FILTRATION RATE > 60.0 (>56); GLUCOSE, FASTING 189 MG/DL (60-100); POTASSIUM SERUM 4.1 MMOL/L (3.5-5.1); SODIUM LEVEL 139 MMOL/L (136-145)
[2023-02-16 04:41] LABS: THYROID STIMULATING HORMONE 0.746 uIU/ML (0.55-4.78)
[2023-02-16 04:48] LABS: SALICYLATE LEVEL < 3.0 MG/DL (<30)
[2023-02-16] MEDS: INSULIN LISPRO (NovoLOG) PER UNIT SC SCH ×3 (07:30→17:48)
[2023-02-16] MEDS ORDERED: DEXTROSE 50% 50ML SYRINGE IV PRN (08:45)
[2023-02-16] MEDS ORDERED: GLUCOSE 4GM CHEW TABLET PO PRN (08:45)
[2023-02-16] MEDS ORDERED: ACETAMINOPHEN 325 MG TAB PO PRN (08:45)
[2023-02-16] MEDS ORDERED: GLUCAGON INJ 1MG VIAL SC PRN (08:45)
[2023-02-16] MEDS ORDERED: metFORMIN (GLUCOPHAGE) 1000MG TABLET PO ONE (09:00)
[2023-02-16] MEDS ORDERED: TOPIRAMATE (TopAMAX) 100 MG TAB PO ONE (09:00)
[2023-02-16] MEDS ORDERED: LEVEMIR (INSULIN DETEMIR) 1 UNITS/0.01ML SC ONE (09:00)
[2023-02-16] MEDS ORDERED: GABAPENTIN 300 MG CAP PO ONE (09:00)
[2023-02-16] MEDS ORDERED: MED REC IN PROGRESS XX SCH (09:55)
[2023-02-16] MEDS ORDERED: INSULIN LISPRO (NovoLOG) PER UNIT SC SCH ×2 (12:00→21:00)
[2023-02-16] MEDS ORDERED: INSUDET SC (12:33)
[2023-02-16] MEDS ORDERED: CLON0.5T2 PO (12:33)
[2023-02-16] MEDS ORDERED: INSUHUMDS SC (12:33)
[2023-02-16] MEDS ORDERED: HOME MED LIST COMPLETE! XX SCH (12:35)
[2023-02-16] MEDS: GABAPENTIN 300 MG CAP PO SCH ×2 (16:13→21:22)
[2023-02-16] MEDS ORDERED: ACETAMINOPHEN TAB 650MG DOSE (2X325MG) PO ONE (16:15)
[2023-02-16] MEDS: metFORMIN (GLUCOPHAGE) 1000MG TABLET PO SCH (17:48)
[2023-02-16] MEDS: TOPIRAMATE (TopAMAX) 100 MG TAB PO SCH (21:22)
[2023-02-16] MEDS: LEVEMIR (INSULIN DETEMIR) 1 UNITS/0.01ML SC SCH (21:23)
[2023-02-17] MEDS: LEVEMIR (INSULIN DETEMIR) 1 UNITS/0.01ML SC SCH (08:23)
[2023-02-17] MEDS: TOPIRAMATE (TopAMAX) 100 MG TAB PO SCH (08:24)
[2023-02-17] MEDS: metFORMIN (GLUCOPHAGE) 1000MG TABLET PO SCH (08:24)
[2023-02-17] MEDS: INSULIN LISPRO (NovoLOG) PER UNIT SC SCH (08:24)
[2023-02-17] MEDS: GABAPENTIN 300 MG CAP PO SCH (08:24)
[2023-02-17 10:12] LABS: AMPHETAMINES LEVEL URINE NEGATIVE (NEGATIVE)
[2023-02-17 10:13] LABS: BARBITURATES URINE NEGATIVE (NEGATIVE); BENZODIAZEPINES URINE NEGATIVE (NEGATIVE); CANNABINOIDS URINE NEGATIVE (NEGATIVE); COCAINE METABOLITE URINE NEGATIVE (NEGATIVE); METHADONE URINE NEGATIVE (NEGATIVE); OPIATES URINE NEGATIVE (NEGATIVE); PHENCYCLIDINE URINE NEGATIVE (NEGATIVE)
[2023-02-17 13:19] VITALS: BP 113/73; TEMP 97.9; O2SAT 99
[2023-02-18] MEDS ORDERED: TOPI100T9 PO (00:24)
[2023-02-18] MEDS ORDERED: QUET400T2 PO (00:24)
[2023-02-18] MEDS ORDERED: METF10004 PO (00:24)
[2023-02-18] MEDS ORDERED: ROZE8TAB16 PO (00:24)
[2023-02-18] MEDS ORDERED: MIRT-62 PO (00:24)
== END 2023-02-17 13:22 | disposition home or self-care (01) ==
LOC: M ED 03:36
DX: F20.9 Schizophrenia, unspecified (principal); E11.9 Type 2 diabetes mellitus without complications; F17.200 Nicotine dependence, unspecified, uncomplicated; F10.10 Alcohol abuse, uncomplicated; Z88.8 Allergy status to other drugs, medicaments and biological substances; Z79.1 Long term (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 of non-steroidal anti-inflammatories (NSAID); Z79.810 Long term (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 of selective estrogen receptor modulators (SERMs); Z79.899 Other long term (current) drug therapy
CPT/HCPCS: 80048; 80076; 80143; 80307; 82077; 84443; 85027; 87635; 96372; 96374; 99284; J1815

== ENCOUNTER 2023-02-17 17:32 | Inpatient (IN) | payer MEDICAID, OTHER ==
[~2023-02-17] VITALS: Ht 170.2 cm; Wt 70.8 kg
[2023-02-17 18:40] LABS: BARBITURATES URINE NEGATIVE (NEGATIVE); BENZODIAZEPINES URINE NEGATIVE (NEGATIVE); CANNABINOIDS URINE NEGATIVE (NEGATIVE); COCAINE METABOLITE URINE NEGATIVE (NEGATIVE); METHADONE URINE NEGATIVE (NEGATIVE); OPIATES URINE NEGATIVE (NEGATIVE); PHENCYCLIDINE URINE NEGATIVE (NEGATIVE)
[2023-02-17 18:43] LABS: AMPHETAMINES LEVEL URINE POSITIVE (NEGATIVE)
[2023-02-18] MEDS ORDERED: QUET400T2 PO (00:24)
[2023-02-18] MEDS ORDERED: ROZE8TAB16 PO (00:24)
[2023-02-18] MEDS ORDERED: METF10004 PO (00:24)
[2023-02-18] MEDS ORDERED: TOPI100T9 PO (00:24)
[2023-02-18] MEDS ORDERED: MIRT-88 PO (00:24)
[2023-02-18] MEDS ORDERED: HOME MED LIST COMPLETE! XX SCH (00:25)
[2023-02-18] MEDS ORDERED: GLUCOSE 4GM CHEW TABLET PO PRN (07:15)
[2023-02-18] MEDS ORDERED: RAMELTEON 8 MG TAB (ROZEREM) PO PRN ×2 (07:15→22:45)
[2023-02-18] MEDS ORDERED: GLUCAGON INJ 1MG VIAL SC PRN (07:15)
[2023-02-18] MEDS: INSULIN LISPRO (NovoLOG) PER UNIT SC SCH ×3 (08:14→22:31)
[2023-02-18] MEDS: GABAPENTIN 300 MG CAP PO SCH ×3 (08:15→23:41)
[2023-02-18] MEDS ORDERED: LEVEMIR (INSULIN DETEMIR) 1 UNITS/0.01ML SC SCH (09:00)
[2023-02-18] MEDS ORDERED: TOPIRAMATE (TopAMAX) 100 MG TAB PO SCH (09:00)
[2023-02-18] MEDS ORDERED: metFORMIN (GLUCOPHAGE) 1000MG TABLET PO SCH (09:00)
[2023-02-18] MEDS ORDERED: MIRTAZAPINE 15 MG TAB PO SCH (21:00)
[2023-02-18] MEDS ORDERED: QUEtiapine FUMARATE 200 MG TAB PO SCH (21:00)
[2023-02-18] MEDS ORDERED: INSULIN LISPRO (NovoLOG) PER UNIT SC SCH (21:00)
[2023-02-18] MEDS ORDERED: diphenhydrAMINE 25MG CAP PO PRN (22:45)
[2023-02-18] MEDS ORDERED: MOM 30ML SUSPENSION UDC PO PRN (22:45)
[2023-02-18] MEDS ORDERED: MAALOX 30 ML SUSP *UDC PO PRN (22:45)
[2023-02-18] MEDS ORDERED: traZODone 50 MG TAB PO PRN (22:45)
[2023-02-18 23:25] VITALS: BP 141/88; O2SAT 98
[2023-02-18] MEDS: MIRTAZAPINE 15 MG TAB PO SCH (23:41)
[2023-02-18] MEDS: TOPIRAMATE (TopAMAX) 100 MG TAB PO SCH (23:41)
[2023-02-18] MEDS: LEVEMIR (INSULIN DETEMIR) 1 UNITS/0.01ML SC SCH (23:41)
[2023-02-18] MEDS: QUEtiapine FUMARATE 200 MG TAB PO SCH (23:42)
[2023-02-19] MEDS ORDERED: GLUCAGON INJ 1MG VIAL SC PRN (03:30)
[2023-02-19] MEDS ORDERED: DEXTROSE 50% 50ML SYRINGE IV PRN (03:30)
[2023-02-19] MEDS ORDERED: GLUCOSE 4GM CHEW TABLET PO PRN (03:30)
[2023-02-19] MEDS: INSULIN LISPRO (NovoLOG) PER UNIT SC SCH ×4 (07:01→20:58)
[2023-02-19 07:04] VITALS: BP 110/80; TEMP 96.8; O2SAT 100
[2023-02-19] MEDS ORDERED: INSULIN LISPRO (NovoLOG) PER UNIT SC SCH (07:30)
[2023-02-19] MEDS: metFORMIN (GLUCOPHAGE) 1000MG TABLET PO SCH ×2 (09:33→17:45)
[2023-02-19] MEDS: GABAPENTIN 300 MG CAP PO SCH ×3 (09:34→20:59)
[2023-02-19] MEDS: TOPIRAMATE (TopAMAX) 100 MG TAB PO SCH ×2 (09:34→20:59)
[2023-02-19] MEDS: LEVEMIR (INSULIN DETEMIR) 1 UNITS/0.01ML SC SCH ×2 (09:36→20:58)
[2023-02-19 15:25] LABS: ACETONE/KETONE 0.11 MMOL/L (0.02-0.27); BLOOD UREA NITROGEN 16 MG/DL (9-23); CALCIUM LEVEL 9.5 MG/DL (8.5-10.1); CARBON DIOXIDE LEVEL 24 MMOL/L (20-31); CHLORIDE LEVEL 109 MMOL/L (98-107); GLOMERULAR FILTRATION RATE > 60.0 (>56); GLUCOSE, FASTING 191 MG/DL (60-100); POTASSIUM SERUM 4.1 MMOL/L (3.5-5.1); SODIUM LEVEL 141 MMOL/L (136-145)
[2023-02-19 18:43] VITALS: BP 113/63; TEMP 98; O2SAT 98
[2023-02-19 19:43] LABS: VENOUS BASE EXCESS -4.3 (-2.0-2.0); VENOUS PARTIAL PRESSURE CO2 39.5 mmHg (38.0-50.0); VENOUS PARTIAL PRESSURE O2 70.4 mmHg (30.0-50.0); VENOUS PH 7.344 UNITS (7.330-7.430); VENOUS STANDARD HCO3 20.9 MMOL/L; VENOUS TOTAL CO2 22.2 MMOL/L (24.0-28.0)
[2023-02-19] MEDS: QUEtiapine FUMARATE 200 MG TAB PO SCH (20:59)
[2023-02-19] MEDS: MIRTAZAPINE 15 MG TAB PO SCH (20:59)
[2023-02-19] MEDS ORDERED: LEVEMIR (INSULIN DETEMIR) 1 UNITS/0.01ML SC SCH (21:00)
[2023-02-20 06:29] VITALS: BP 107/65; TEMP 98; O2SAT 100
[2023-02-20] MEDS: INSULIN LISPRO (NovoLOG) PER UNIT SC SCH ×4 (06:34→21:11)
[2023-02-20] MEDS: metFORMIN (GLUCOPHAGE) 1000MG TABLET PO SCH ×2 (08:57→17:27)
[2023-02-20] MEDS: TOPIRAMATE (TopAMAX) 100 MG TAB PO SCH ×2 (09:33→21:01)
[2023-02-20] MEDS: GABAPENTIN 300 MG CAP PO SCH ×3 (09:34→21:01)
[2023-02-20] MEDS: LEVEMIR (INSULIN DETEMIR) 1 UNITS/0.01ML SC SCH ×2 (09:35→21:10)
[2023-02-20] MEDS: NICOTINE 21MG/24HR 1 EA TRANSDERMAL TD PRN (13:16)
[2023-02-20 20:34] VITALS: BP 102/64; TEMP 97.6
[2023-02-20] MEDS: QUEtiapine FUMARATE 200 MG TAB PO SCH (21:01)
[2023-02-20] MEDS: MIRTAZAPINE 15 MG TAB PO SCH (21:01)
[2023-02-21 06:08] VITALS: BP 98/59; TEMP 97.4; O2SAT 100
[2023-02-21] MEDS: INSULIN LISPRO (NovoLOG) PER UNIT SC SCH ×4 (06:56→21:13)
[2023-02-21] MEDS: metFORMIN (GLUCOPHAGE) 1000MG TABLET PO SCH ×2 (08:57→17:27)
[2023-02-21] MEDS: LEVEMIR (INSULIN DETEMIR) 1 UNITS/0.01ML SC SCH ×2 (08:58→21:12)
[2023-02-21] MEDS: GABAPENTIN 300 MG CAP PO SCH ×3 (08:58→21:08)
[2023-02-21] MEDS: TOPIRAMATE (TopAMAX) 100 MG TAB PO SCH ×2 (08:58→21:07)
[2023-02-21] MEDS: NICOTINE 21MG/24HR 1 EA TRANSDERMAL TD PRN (13:24)
[2023-02-21 15:35] VITALS: BP 99/61; TEMP 97.9; O2SAT 99
[2023-02-21] MEDS: QUEtiapine FUMARATE 200 MG TAB PO SCH (21:07)
[2023-02-21] MEDS: MIRTAZAPINE 15 MG TAB PO SCH (21:08)
[2023-02-22 06:24] VITALS: BP 117/74; TEMP 97.2; O2SAT 99
[2023-02-22] MEDS: INSULIN LISPRO (NovoLOG) PER UNIT SC SCH ×4 (06:57→21:30)
[2023-02-22] MEDS: GABAPENTIN 300 MG CAP PO SCH ×3 (09:45→21:25)
[2023-02-22] MEDS: TOPIRAMATE (TopAMAX) 100 MG TAB PO SCH ×2 (09:45→21:25)
[2023-02-22] MEDS: LEVEMIR (INSULIN DETEMIR) 1 UNITS/0.01ML SC SCH ×2 (09:46→21:30)
[2023-02-22] MEDS: metFORMIN (GLUCOPHAGE) 1000MG TABLET PO SCH ×2 (09:47→17:45)
[2023-02-22] MEDS: NICOTINE 21MG/24HR 1 EA TRANSDERMAL TD PRN (14:00)
[2023-02-22] MEDS: QUEtiapine FUMARATE 200 MG TAB PO SCH (21:25)
[2023-02-22] MEDS: MIRTAZAPINE 15 MG TAB PO SCH (21:25)
[2023-02-23] MEDS: INSULIN LISPRO (NovoLOG) PER UNIT SC SCH ×4 (06:32→21:00)
[2023-02-23 06:55] VITALS: BP 133/78; TEMP 98.1; O2SAT 94
[2023-02-23] MEDS: metFORMIN (GLUCOPHAGE) 1000MG TABLET PO SCH ×2 (07:39→17:06)
[2023-02-23] MEDS: TOPIRAMATE (TopAMAX) 100 MG TAB PO SCH ×2 (08:52→21:22)
[2023-02-23] MEDS: GABAPENTIN 300 MG CAP PO SCH ×3 (08:52→21:22)
[2023-02-23] MEDS: LEVEMIR (INSULIN DETEMIR) 1 UNITS/0.01ML SC SCH ×2 (08:53→21:21)
[2023-02-23 16:29] VITALS: BP 105/58; TEMP 98.1; O2SAT 100
[2023-02-23] MEDS: MIRTAZAPINE 15 MG TAB PO SCH (21:22)
[2023-02-23] MEDS: QUEtiapine FUMARATE 200 MG TAB PO SCH (21:22)
[2023-02-24 06:01] VITALS: BP 119/77; TEMP 98.1; O2SAT 100
[2023-02-24] MEDS: INSULIN LISPRO (NovoLOG) PER UNIT SC SCH ×4 (06:47→21:00)
[2023-02-24] MEDS: LEVEMIR (INSULIN DETEMIR) 1 UNITS/0.01ML SC SCH ×2 (08:52→21:10)
[2023-02-24] MEDS: TOPIRAMATE (TopAMAX) 100 MG TAB PO SCH ×2 (08:53→21:11)
[2023-02-24] MEDS: GABAPENTIN 300 MG CAP PO SCH ×3 (08:53→21:11)
[2023-02-24] MEDS: QUEtiapine FUMARATE 100 MG TAB PO SCH (08:53)
[2023-02-24] MEDS: metFORMIN (GLUCOPHAGE) 1000MG TABLET PO SCH ×2 (08:53→17:12)
[2023-02-24 16:46] VITALS: BP 92/50; TEMP 97.7; O2SAT 98
[2023-02-24] MEDS: QUEtiapine FUMARATE 200 MG TAB PO SCH (21:11)
[2023-02-24] MEDS: MIRTAZAPINE 15 MG TAB PO SCH (21:11)
[2023-02-25 06:15] VITALS: BP 118/75; TEMP 98; O2SAT 99
[2023-02-25] MEDS: INSULIN LISPRO (NovoLOG) PER UNIT SC SCH ×4 (06:43→22:06)
[2023-02-25] MEDS: LEVEMIR (INSULIN DETEMIR) 1 UNITS/0.01ML SC SCH ×2 (08:31→22:05)
[2023-02-25] MEDS: TOPIRAMATE (TopAMAX) 100 MG TAB PO SCH ×2 (08:32→21:56)
[2023-02-25] MEDS: GABAPENTIN 300 MG CAP PO SCH (08:32)
[2023-02-25] MEDS: metFORMIN (GLUCOPHAGE) 1000MG TABLET PO SCH ×2 (08:32→17:21)
[2023-02-25] MEDS: QUEtiapine FUMARATE 100 MG TAB PO SCH (08:32)
[2023-02-25] MEDS: GABAPENTIN 400MG CAP PO SCH ×2 (15:22→21:56)
[2023-02-25] MEDS: NICOTINE 21MG/24HR 1 EA TRANSDERMAL TD PRN (16:02)
[2023-02-25 16:33] VITALS: BP 126/72; TEMP 98.2; O2SAT 95
[2023-02-25] MEDS: MIRTAZAPINE 15 MG TAB PO SCH (21:55)
[2023-02-25] MEDS: QUEtiapine FUMARATE 200 MG TAB PO SCH (21:55)
[2023-02-26 05:46] VITALS: BP 103/56; TEMP 98.6; O2SAT 98
[2023-02-26] MEDS: INSULIN LISPRO (NovoLOG) PER UNIT SC SCH ×4 (07:02→20:36)
[2023-02-26] MEDS: metFORMIN (GLUCOPHAGE) 1000MG TABLET PO SCH ×2 (09:20→17:06)
[2023-02-26] MEDS: TOPIRAMATE (TopAMAX) 100 MG TAB PO SCH ×2 (09:21→20:35)
[2023-02-26] MEDS: QUEtiapine FUMARATE 100 MG TAB PO SCH (09:21)
[2023-02-26] MEDS: GABAPENTIN 400MG CAP PO SCH ×3 (09:21→20:35)
[2023-02-26] MEDS: LEVEMIR (INSULIN DETEMIR) 1 UNITS/0.01ML SC SCH ×2 (09:22→20:36)
[2023-02-26] MEDS: cloNIDine 0.1MG TABLET PO SCH (12:17)
[2023-02-26] MEDS: NICOTINE 21MG/24HR 1 EA TRANSDERMAL TD PRN (15:04)
[2023-02-26 17:56] VITALS: BP 125/64; TEMP 97; O2SAT 100
[2023-02-26] MEDS: MIRTAZAPINE 15 MG TAB PO SCH (20:35)
[2023-02-26] MEDS: QUEtiapine FUMARATE 200 MG TAB PO SCH (20:35)
[2023-02-27 06:29] VITALS: BP 146/92; TEMP 97.7; O2SAT 100
[2023-02-27] MEDS: INSULIN LISPRO (NovoLOG) PER UNIT SC SCH ×4 (06:50→20:48)
[2023-02-27] MEDS: metFORMIN (GLUCOPHAGE) 1000MG TABLET PO SCH ×2 (08:47→17:14)
[2023-02-27 09:00] VITALS: BP 105/67
[2023-02-27] MEDS: cloNIDine 0.1MG TABLET PO SCH (09:00)
[2023-02-27 10:24] VITALS: BP 105/67
[2023-02-27] MEDS: TOPIRAMATE (TopAMAX) 100 MG TAB PO SCH ×2 (10:25→20:44)
[2023-02-27] MEDS: QUEtiapine FUMARATE 100 MG TAB PO SCH (10:25)
[2023-02-27] MEDS: GABAPENTIN 400MG CAP PO SCH ×3 (10:25→20:44)
[2023-02-27] MEDS: LEVEMIR (INSULIN DETEMIR) 1 UNITS/0.01ML SC SCH ×2 (10:26→20:43)
[2023-02-27] MEDS: NICOTINE 21MG/24HR 1 EA TRANSDERMAL TD PRN (10:37)
[2023-02-27 19:03] VITALS: BP 145/88; TEMP 98
[2023-02-27] MEDS: QUEtiapine FUMARATE 200 MG TAB PO SCH (20:43)
[2023-02-27] MEDS: MIRTAZAPINE 15 MG TAB PO SCH (20:44)
[2023-02-28 06:23] VITALS: BP 144/93; TEMP 97.2; O2SAT 100
[2023-02-28] MEDS: INSULIN LISPRO (NovoLOG) PER UNIT SC SCH ×4 (06:43→20:37)
[2023-02-28] MEDS: QUEtiapine FUMARATE 100 MG TAB PO SCH (09:42)
[2023-02-28] MEDS: metFORMIN (GLUCOPHAGE) 1000MG TABLET PO SCH ×2 (09:42→17:01)
[2023-02-28] MEDS: GABAPENTIN 400MG CAP PO SCH ×3 (09:43→20:38)
[2023-02-28] MEDS: TOPIRAMATE (TopAMAX) 100 MG TAB PO SCH ×2 (09:43→20:37)
[2023-02-28] MEDS: LEVEMIR (INSULIN DETEMIR) 1 UNITS/0.01ML SC SCH ×2 (09:43→20:36)
[2023-02-28] MEDS: NICOTINE 21MG/24HR 1 EA TRANSDERMAL TD PRN (09:45)
[2023-02-28] MEDS: IBUPROFEN 400MG TAB PO PRN ×2 (09:49→18:22)
[2023-02-28] MEDS: ACETAMINOPHEN TAB 650MG DOSE (2X325MG) PO PRN (12:20)
[2023-02-28 18:11] VITALS: BP 95/59; TEMP 97.4; O2SAT 100
[2023-02-28] MEDS ORDERED: IBUPROFEN 600MG TAB PO PRN (19:20)
[2023-02-28] MEDS ORDERED: ANALGESIC BALM CRM 3OZ TOP PRN (19:20)
[2023-02-28] MEDS: MIRTAZAPINE 15 MG TAB PO SCH (20:37)
[2023-02-28] MEDS: QUEtiapine FUMARATE 200 MG TAB PO SCH (20:37)
[2023-03-01] MEDS: INSULIN LISPRO (NovoLOG) PER UNIT SC SCH ×4 (06:44→21:00)
[2023-03-01 06:47] VITALS: BP 122/96; TEMP 97.5; O2SAT 99
[2023-03-01] MEDS: TOPIRAMATE (TopAMAX) 100 MG TAB PO SCH ×2 (09:37→21:11)
[2023-03-01] MEDS: QUEtiapine FUMARATE 100 MG TAB PO SCH (09:37)
[2023-03-01] MEDS: GABAPENTIN 400MG CAP PO SCH ×3 (09:38→21:11)
[2023-03-01] MEDS: ACETAMINOPHEN TAB 650MG DOSE (2X325MG) PO PRN (09:38)
[2023-03-01] MEDS: metFORMIN (GLUCOPHAGE) 1000MG TABLET PO SCH ×2 (09:38→16:57)
[2023-03-01] MEDS: LEVEMIR (INSULIN DETEMIR) 1 UNITS/0.01ML SC SCH ×2 (09:39→21:12)
[2023-03-01] MEDS: NICOTINE 21MG/24HR 1 EA TRANSDERMAL TD PRN (09:40)
[2023-03-01] MEDS ORDERED: diphenhydrAMINE 50MG/ML VIAL IM STA (13:05)
[2023-03-01] MEDS: BENZTROPINE 2 MG TAB PO SCH (13:23)
[2023-03-01] MEDS: IBUPROFEN 800 MG TAB PO PRN (15:03)
[2023-03-01 18:50] VITALS: BP 136/89; TEMP 97.9; O2SAT 99
[2023-03-01] MEDS: MIRTAZAPINE 15 MG TAB PO SCH (21:11)
[2023-03-01] MEDS: QUEtiapine FUMARATE 200 MG TAB PO SCH (21:11)
[2023-03-02 06:46] VITALS: BP 106/60; TEMP 97.7; O2SAT 100
[2023-03-02] MEDS: INSULIN LISPRO (NovoLOG) PER UNIT SC SCH ×4 (07:03→21:12)
[2023-03-02] MEDS: metFORMIN (GLUCOPHAGE) 1000MG TABLET PO SCH ×2 (09:19→17:17)
[2023-03-02] MEDS: TOPIRAMATE (TopAMAX) 100 MG TAB PO SCH ×2 (09:19→21:11)
[2023-03-02] MEDS: GABAPENTIN 400MG CAP PO SCH ×3 (09:20→21:11)
[2023-03-02] MEDS: BENZTROPINE 2 MG TAB PO SCH (09:20)
[2023-03-02] MEDS: LEVEMIR (INSULIN DETEMIR) 1 UNITS/0.01ML SC SCH ×2 (09:23→21:12)
[2023-03-02] MEDS: QUEtiapine FUMARATE 100 MG TAB PO SCH (09:23)
[2023-03-02] MEDS: NICOTINE 21MG/24HR 1 EA TRANSDERMAL TD PRN (09:27)
[2023-03-02] MEDS: IBUPROFEN 800 MG TAB PO PRN ×2 (11:28→17:17)
[2023-03-02 17:13] VITALS: BP 106/59; TEMP 97.2
[2023-03-02] MEDS: QUEtiapine FUMARATE 200 MG TAB PO SCH (21:11)
[2023-03-02] MEDS: MIRTAZAPINE 15 MG TAB PO SCH (21:11)
[2023-03-02] MEDS: ACETAMINOPHEN TAB 650MG DOSE (2X325MG) PO PRN (22:13)
[2023-03-03 06:02] VITALS: BP 94/59; TEMP 98.4; O2SAT 100
[2023-03-03] MEDS: INSULIN LISPRO (NovoLOG) PER UNIT SC SCH ×2 (06:42→12:21)
[2023-03-03] MEDS: metFORMIN (GLUCOPHAGE) 1000MG TABLET PO SCH (07:50)
[2023-03-03] MEDS: QUEtiapine FUMARATE 100 MG TAB PO SCH (09:46)
[2023-03-03] MEDS: TOPIRAMATE (TopAMAX) 100 MG TAB PO SCH (09:46)
[2023-03-03] MEDS: GABAPENTIN 400MG CAP PO SCH (09:46)
[2023-03-03] MEDS: BENZTROPINE 2 MG TAB PO SCH (09:46)
[2023-03-03] MEDS: LEVEMIR (INSULIN DETEMIR) 1 UNITS/0.01ML SC SCH (09:48)
[2023-03-03] MEDS: NICOTINE 21MG/24HR 1 EA TRANSDERMAL TD PRN (09:50)
[2023-03-03] MEDS ORDERED: INSUHUMDS SC (10:02)
[2023-03-03] MEDS ORDERED: ROZE8TAB16 PO (10:02)
[2023-03-03] MEDS ORDERED: BENZ2TAB48 PO (10:02)
[2023-03-03] MEDS ORDERED: INSUDET SC (10:02)
[2023-03-03] MEDS ORDERED: TOPI100T9 PO (10:02)
[2023-03-03] MEDS ORDERED: MIRT-88 PO (10:02)
[2023-03-03] MEDS ORDERED: GABA-284 PO (10:02)
[2023-03-03] MEDS ORDERED: METF10004 PO (10:02)
[2023-03-03] MEDS ORDERED: QUET100T2 PO (10:02)
[2023-03-03] MEDS ORDERED: QUET400T2 PO (10:02)
== END 2023-03-03 12:39 | disposition home or self-care (01) | DRG 750 ==
LOC: M ED 17:32 → EDBD 17:32 → M ED INP 02-18 22:41 → M PSY 02-18 22:42
PROVIDERS: ADMIT Psychiatry & Neurology Psychiatry; ATTEND Psychiatry & Neurology Psychiatry
DX: F20.9 Schizophrenia, unspecified (principal); F15.159 Other stimulant abuse with stimulant-induced psychotic disorder, unspecified; E11.42 Type 2 diabetes mellitus with diabetic polyneuropathy; N40.0 Benign prostatic hyperplasia without lower urinary tract symptoms; M19.90 Unspecified osteoarthritis, unspecified site; E87.20 Acidosis, unspecified; J45.909 Unspecified asthma, uncomplicated; F17.200 Nicotine dependence, unspecified, uncomplicated; S02.5XXA Fracture of tooth (traumatic), initial encounter for closed fracture; X58.XXXA Exposure to other specified factors, initial encounter; Y92.9 Unspecified place or not applicable; Z79.4 Long term (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 of insulin; Z79.84 Long term (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 of oral hypoglycemic drugs; Z79.899 Other long term (current) drug therapy; Z88.8 Allergy status to other drugs, medicaments and biological substances; Z91.018 Allergy to other foods; Z20.822 Contact with and (suspected) exposure to COVID-19; Z56.0 Unemployment, unspecified

== ENCOUNTER 2023-03-15 02:01 | Emergency (ER) | payer MEDICAID, OTHER ==
[~2023-03-15] VITALS: Ht 170.2 cm; Wt 81.8 kg
[~2023-03-15 02:01] MED LIST changes: +BENZ2TAB48 PO; +MIRT-88 PO
[2023-03-15 02:14] VITALS: BP 126/83; TEMP 97.8; O2SAT 100
== END 2023-03-15 03:36 | disposition left against medical advice (07) ==
LOC: M ED 02:01
DX: Z53.21 Procedure and treatment not carried out due to patient leaving prior to being seen by health care provider (principal)

== ENCOUNTER 2023-03-19 16:20 | Inpatient (IN) | payer MEDICAID, OTHER ==
[~2023-03-19] VITALS: Ht 172.7 cm; Wt 74.0 kg
[2023-03-19] MEDS ORDERED: OLANZapine ORAL DISINTEGRATING TAB 5MG PO ONE (17:05)
[2023-03-19 17:45] LABS: HEMATOCRIT 41.5 % (42.0-52.0); HEMOGLOBIN 13.2 g/dl (13.5-17.5); MEAN CORPUSCULAR HGB CONC 31.8 g/dl (32.0-36.5); MEAN CORPUSCULAR VOLUME 88.1 fl (80.0-96.0); PLATELET COUNT, AUTOMATED 261 10^3/uL (150-450); RED BLOOD COUNT 4.71 10^6/uL (4.30-6.10); WHITE BLOOD COUNT 6.5 10^3/uL (4.0-10.0)
[2023-03-19] MEDS ORDERED: QUEtiapine FUMARATE 200 MG TAB PO ONE (17:45)
[2023-03-19 18:14] LABS: ETHYL ALCOHOL (ETHANOL) < 0.003 % (0.000-0.010)
[2023-03-19 18:16] LABS: ACETAMINOPHEN LEVEL < 2.0 UG/ML (10.0-20.0); ALBUMIN 4.1 G/DL (3.2-5.2); ALKALINE PHOSPHATASE 65 U/L (46-116); ALT/SGPT 17 U/L (7.0-40); AST/SGOT 13 U/L (<34); BILIRUBIN,DIRECT 0.2 MG/DL (<0.4); BILIRUBIN,TOTAL 0.4 MG/DL (0.3-1.2); BLOOD UREA NITROGEN 13 MG/DL (9-23); CALCIUM LEVEL 9.5 MG/DL (8.5-10.1); CARBON DIOXIDE LEVEL 22 MMOL/L (20-31); CHLORIDE LEVEL 106 MMOL/L (98-107); CREATININE FOR GFR 0.74 MG/DL (0.70-1.30); GLOMERULAR FILTRATION RATE > 60.0 (>56); GLUCOSE, FASTING 176 MG/DL (60-100); POTASSIUM SERUM 4.2 MMOL/L (3.5-5.1); SALICYLATE LEVEL < 3.0 MG/DL (<30); SODIUM LEVEL 139 MMOL/L (136-145); TOTAL PROTEIN 7.6 G/DL (5.7-8.2)
[2023-03-19 18:19] LABS: THYROID STIMULATING HORMONE 0.411 uIU/ML (0.55-4.78)
[2023-03-19] MEDS ORDERED: MED REC IN PROGRESS XX SCH (18:30)
[2023-03-19] MEDS ORDERED: BENZ2TAB48 PO (20:05)
[2023-03-19] MEDS ORDERED: GABA-284 PO (20:06)
[2023-03-19] MEDS ORDERED: INSUDET SC (20:08)
[2023-03-19] MEDS ORDERED: INSUHUMDS SC (20:09)
[2023-03-19] MEDS ORDERED: MOM 30ML SUSPENSION UDC PO PRN (20:10)
[2023-03-19] MEDS ORDERED: DEXTROSE 50% 50ML SYRINGE IV PRN (20:10)
[2023-03-19] MEDS ORDERED: traZODone 50 MG TAB PO PRN (20:10)
[2023-03-19] MEDS ORDERED: GLUCAGON INJ 1MG VIAL SC PRN (20:10)
[2023-03-19] MEDS ORDERED: METF10004 PO (20:10)
[2023-03-19] MEDS ORDERED: diphenhydrAMINE 25MG CAP PO PRN (20:10)
[2023-03-19] MEDS ORDERED: OLANZapine ORAL DISINTEGRATING TAB 5MG PO PRN (20:10)
[2023-03-19] MEDS ORDERED: MAALOX 30 ML SUSP *UDC PO PRN (20:10)
[2023-03-19] MEDS ORDERED: GLUCOSE 4GM CHEW TABLET PO PRN (20:10)
[2023-03-19] MEDS ORDERED: MIRT1TAB15 PO (20:13)
[2023-03-19] MEDS ORDERED: QUET400T2 PO (20:14)
[2023-03-19] MEDS ORDERED: RAME8TAB2 PO (20:16)
[2023-03-19] MEDS ORDERED: TOPI100T9 PO (20:18)
[2023-03-19] MEDS ORDERED: HOME MED LIST COMPLETE! XX SCH (20:25)
[2023-03-19 21:24] VITALS: BP 118/83; TEMP 97.6; O2SAT 100
[2023-03-19] MEDS: LEVEMIR (INSULIN DETEMIR) 1 UNITS/0.01ML SC SCH (22:14)
[2023-03-19] MEDS: INSULIN LISPRO (NovoLOG) PER UNIT SC SCH (22:15)
[2023-03-19] MEDS: QUEtiapine FUMARATE 200 MG TAB PO SCH (22:15)
[2023-03-19] MEDS: RAMELTEON 8 MG TAB (ROZEREM) PO SCH (22:16)
[2023-03-19] MEDS: GABAPENTIN 400MG CAP PO SCH (22:16)
[2023-03-19] MEDS: MIRTAZAPINE 15 MG TAB PO SCH (22:17)
[2023-03-19] MEDS: TOPIRAMATE (TopAMAX) 100 MG TAB PO SCH (22:17)
[2023-03-20] MEDS: INSULIN LISPRO (NovoLOG) PER UNIT SC SCH ×4 (06:33→21:00)
[2023-03-20 06:50] VITALS: BP 98/62; TEMP 97.6; O2SAT 98
[2023-03-20] MEDS: BENZTROPINE 2 MG TAB PO SCH (09:38)
[2023-03-20] MEDS: GABAPENTIN 400MG CAP PO SCH ×3 (09:39→21:19)
[2023-03-20] MEDS: metFORMIN (GLUCOPHAGE) 1000MG TABLET PO SCH ×2 (09:39→17:16)
[2023-03-20] MEDS: QUEtiapine FUMARATE 100 MG TAB PO SCH (09:39)
[2023-03-20] MEDS: TOPIRAMATE (TopAMAX) 100 MG TAB PO SCH ×2 (09:40→21:18)
[2023-03-20] MEDS: LEVEMIR (INSULIN DETEMIR) 1 UNITS/0.01ML SC SCH ×2 (09:44→21:27)
[2023-03-20 18:31] VITALS: BP 141/79; TEMP 98.2; O2SAT 97
[2023-03-20 18:47] VITALS: BP 110/80
[2023-03-20] MEDS: QUEtiapine FUMARATE 200 MG TAB PO SCH (21:18)
[2023-03-20] MEDS: MIRTAZAPINE 15 MG TAB PO SCH (21:19)
[2023-03-20] MEDS: RAMELTEON 8 MG TAB (ROZEREM) PO SCH (21:19)
[2023-03-21 05:58] VITALS: BP 129/84; TEMP 98; O2SAT 97
[2023-03-21] MEDS: INSULIN LISPRO (NovoLOG) PER UNIT SC SCH ×4 (06:29→21:00)
[2023-03-21] MEDS: QUEtiapine FUMARATE 100 MG TAB PO SCH (09:20)
[2023-03-21] MEDS: LEVEMIR (INSULIN DETEMIR) 1 UNITS/0.01ML SC SCH ×2 (09:20→21:13)
[2023-03-21] MEDS: TOPIRAMATE (TopAMAX) 100 MG TAB PO SCH ×2 (09:20→21:09)
[2023-03-21] MEDS: GABAPENTIN 400MG CAP PO SCH ×3 (09:20→21:09)
[2023-03-21] MEDS: BENZTROPINE 2 MG TAB PO SCH (09:20)
[2023-03-21] MEDS: metFORMIN (GLUCOPHAGE) 1000MG TABLET PO SCH ×2 (09:22→17:05)
[2023-03-21] MEDS: IBUPROFEN 400MG TAB PO PRN (11:27)
[2023-03-21] MEDS: ACETAMINOPHEN TAB 650MG DOSE (2X325MG) PO PRN (17:07)
[2023-03-21 18:42] VITALS: BP 119/78; TEMP 99.3
[2023-03-21] MEDS: RAMELTEON 8 MG TAB (ROZEREM) PO SCH (21:09)
[2023-03-21] MEDS: QUEtiapine FUMARATE 200 MG TAB PO SCH (21:09)
[2023-03-21] MEDS: MIRTAZAPINE 15 MG TAB PO SCH (21:09)
[2023-03-22 05:58] VITALS: BP 102/68; TEMP 98.4; O2SAT 98
[2023-03-22] MEDS: INSULIN LISPRO (NovoLOG) PER UNIT SC SCH ×4 (06:43→20:04)
[2023-03-22] MEDS: metFORMIN (GLUCOPHAGE) 1000MG TABLET PO SCH ×2 (08:44→17:10)
[2023-03-22] MEDS: LEVEMIR (INSULIN DETEMIR) 1 UNITS/0.01ML SC SCH ×2 (08:45→20:04)
[2023-03-22] MEDS: QUEtiapine FUMARATE 100 MG TAB PO SCH (08:45)
[2023-03-22] MEDS: TOPIRAMATE (TopAMAX) 100 MG TAB PO SCH ×2 (08:45→20:03)
[2023-03-22] MEDS: GABAPENTIN 400MG CAP PO SCH ×3 (08:45→20:03)
[2023-03-22] MEDS: BENZTROPINE 2 MG TAB PO SCH (08:45)
[2023-03-22] MEDS: ACETAMINOPHEN TAB 650MG DOSE (2X325MG) PO PRN (14:16)
[2023-03-22] MEDS: MIRTAZAPINE 15 MG TAB PO SCH (20:03)
[2023-03-22] MEDS: RAMELTEON 8 MG TAB (ROZEREM) PO SCH (20:03)
[2023-03-22] MEDS: QUEtiapine FUMARATE 200 MG TAB PO SCH (20:03)
[2023-03-23 06:19] VITALS: BP 132/81; TEMP 98.7; O2SAT 100
[2023-03-23] MEDS: INSULIN LISPRO (NovoLOG) PER UNIT SC SCH ×4 (06:37→20:23)
[2023-03-23] MEDS: QUEtiapine FUMARATE 100 MG TAB PO SCH (08:49)
[2023-03-23] MEDS: TOPIRAMATE (TopAMAX) 100 MG TAB PO SCH ×2 (08:49→20:21)
[2023-03-23] MEDS: LEVEMIR (INSULIN DETEMIR) 1 UNITS/0.01ML SC SCH ×2 (08:49→20:21)
[2023-03-23] MEDS: BENZTROPINE 2 MG TAB PO SCH (08:49)
[2023-03-23] MEDS: GABAPENTIN 400MG CAP PO SCH ×3 (08:50→20:21)
[2023-03-23] MEDS: metFORMIN (GLUCOPHAGE) 1000MG TABLET PO SCH ×2 (08:50→17:27)
[2023-03-23 16:30] VITALS: BP 109/70; TEMP 97.6; O2SAT 99
[2023-03-23] MEDS: NICOTINE 21MG/24HR 1 EA TRANSDERMAL TD SCH (18:27)
[2023-03-23] MEDS: QUEtiapine FUMARATE 200 MG TAB PO SCH (20:21)
[2023-03-23] MEDS: RAMELTEON 8 MG TAB (ROZEREM) PO SCH (20:21)
[2023-03-23] MEDS: MIRTAZAPINE 15 MG TAB PO SCH (20:21)
[2023-03-24] MEDS: INSULIN LISPRO (NovoLOG) PER UNIT SC SCH ×4 (06:52→20:44)
[2023-03-24 06:54] VITALS: BP 144/90; TEMP 97.9; O2SAT 100
[2023-03-24] MEDS: metFORMIN (GLUCOPHAGE) 1000MG TABLET PO SCH ×2 (07:26→17:08)
[2023-03-24] MEDS: NICOTINE 21MG/24HR 1 EA TRANSDERMAL TD SCH (09:28)
[2023-03-24] MEDS: BENZTROPINE 2 MG TAB PO SCH (09:29)
[2023-03-24] MEDS: TOPIRAMATE (TopAMAX) 100 MG TAB PO SCH ×2 (09:29→20:44)
[2023-03-24] MEDS: QUEtiapine FUMARATE 100 MG TAB PO SCH (09:29)
[2023-03-24] MEDS: LEVEMIR (INSULIN DETEMIR) 1 UNITS/0.01ML SC SCH ×2 (09:29→20:43)
[2023-03-24] MEDS: GABAPENTIN 400MG CAP PO SCH ×3 (09:29→20:44)
[2023-03-24 11:53] VITALS: BP 144/90; TEMP 97.9; O2SAT 100
[2023-03-24 16:26] VITALS: BP 117/78; TEMP 99.1; O2SAT 99
[2023-03-24] MEDS: QUEtiapine FUMARATE 200 MG TAB PO SCH (20:44)
[2023-03-24] MEDS: MIRTAZAPINE 15 MG TAB PO SCH (20:44)
[2023-03-24] MEDS: RAMELTEON 8 MG TAB (ROZEREM) PO SCH (20:44)
[2023-03-24] MEDS: ACETAMINOPHEN TAB 650MG DOSE (2X325MG) PO PRN (20:47)
[2023-03-25] MEDS: INSULIN LISPRO (NovoLOG) PER UNIT SC SCH ×4 (06:37→21:43)
[2023-03-25 06:50] VITALS: BP 122/65; TEMP 98.3; O2SAT 96
[2023-03-25] MEDS: metFORMIN (GLUCOPHAGE) 1000MG TABLET PO SCH ×2 (07:39→17:07)
[2023-03-25 08:25] VITALS: BP 122/65; TEMP 98.3; O2SAT 96
[2023-03-25] MEDS: BENZTROPINE 2 MG TAB PO SCH (09:48)
[2023-03-25] MEDS: LEVEMIR (INSULIN DETEMIR) 1 UNITS/0.01ML SC SCH ×2 (09:48→21:43)
[2023-03-25] MEDS: TOPIRAMATE (TopAMAX) 100 MG TAB PO SCH ×2 (09:48→21:44)
[2023-03-25] MEDS: GABAPENTIN 400MG CAP PO SCH ×3 (09:48→21:43)
[2023-03-25] MEDS: QUEtiapine FUMARATE 100 MG TAB PO SCH (09:48)
[2023-03-25] MEDS: NICOTINE 21MG/24HR 1 EA TRANSDERMAL TD SCH (09:48)
[2023-03-25 16:30] VITALS: BP 120/75; TEMP 98.8; O2SAT 100
[2023-03-25] MEDS: RAMELTEON 8 MG TAB (ROZEREM) PO SCH (21:43)
[2023-03-25] MEDS: QUEtiapine FUMARATE 200 MG TAB PO SCH (21:44)
[2023-03-25] MEDS: MIRTAZAPINE 15 MG TAB PO SCH (21:44)
[2023-03-26] MEDS: INSULIN LISPRO (NovoLOG) PER UNIT SC SCH ×4 (06:35→20:35)
[2023-03-26] MEDS: metFORMIN (GLUCOPHAGE) 1000MG TABLET PO SCH ×2 (08:58→17:06)
[2023-03-26] MEDS: BENZTROPINE 2 MG TAB PO SCH (09:06)
[2023-03-26] MEDS: GABAPENTIN 400MG CAP PO SCH ×3 (09:07→20:31)
[2023-03-26] MEDS: QUEtiapine FUMARATE 100 MG TAB PO SCH (09:07)
[2023-03-26] MEDS: TOPIRAMATE (TopAMAX) 100 MG TAB PO SCH ×2 (09:07→20:31)
[2023-03-26] MEDS: LEVEMIR (INSULIN DETEMIR) 1 UNITS/0.01ML SC SCH ×2 (09:09→20:35)
[2023-03-26] MEDS: NICOTINE 21MG/24HR 1 EA TRANSDERMAL TD SCH (09:10)
[2023-03-26] MEDS ORDERED: INSUDET SC (15:45)
[2023-03-26] MEDS ORDERED: INSUHUMDS SC (15:45)
[2023-03-26] MEDS ORDERED: MIRT-10 PO (15:45)
[2023-03-26] MEDS ORDERED: QUET400T2 PO (15:45)
[2023-03-26] MEDS ORDERED: METF10004 PO (15:45)
[2023-03-26] MEDS ORDERED: TOPI100T9 PO (15:45)
[2023-03-26] MEDS ORDERED: GABA-284 PO (15:45)
[2023-03-26] MEDS ORDERED: BENZ2TAB48 PO (15:45)
[2023-03-26] MEDS ORDERED: RAME8TAB2 PO (15:45)
[2023-03-26] MEDS: QUEtiapine FUMARATE 200 MG TAB PO SCH (20:31)
[2023-03-26] MEDS: RAMELTEON 8 MG TAB (ROZEREM) PO SCH (20:31)
[2023-03-26] MEDS: MIRTAZAPINE 15 MG TAB PO SCH (20:31)
[2023-03-27] MEDS: INSULIN LISPRO (NovoLOG) PER UNIT SC SCH ×4 (06:37→20:57)
[2023-03-27] MEDS: metFORMIN (GLUCOPHAGE) 1000MG TABLET PO SCH ×2 (07:52→17:13)
[2023-03-27] MEDS: LEVEMIR (INSULIN DETEMIR) 1 UNITS/0.01ML SC SCH ×2 (08:16→20:57)
[2023-03-27] MEDS: TOPIRAMATE (TopAMAX) 100 MG TAB PO SCH ×2 (08:16→20:50)
[2023-03-27] MEDS: BENZTROPINE 2 MG TAB PO SCH (08:16)
[2023-03-27] MEDS: QUEtiapine FUMARATE 100 MG TAB PO SCH (08:16)
[2023-03-27] MEDS: GABAPENTIN 400MG CAP PO SCH ×3 (08:16→20:50)
[2023-03-27] MEDS: NICOTINE 21MG/24HR 1 EA TRANSDERMAL TD SCH (08:17)
[2023-03-27 16:22] VITALS: BP 140/92; TEMP 98.8; O2SAT 100
[2023-03-27] MEDS: QUEtiapine FUMARATE 200 MG TAB PO SCH (20:50)
[2023-03-27] MEDS: RAMELTEON 8 MG TAB (ROZEREM) PO SCH (20:50)
[2023-03-27] MEDS: MIRTAZAPINE 15 MG TAB PO SCH (20:50)
[2023-03-28] MEDS: INSULIN LISPRO (NovoLOG) PER UNIT SC SCH ×4 (06:33→19:55)
[2023-03-28 06:58] VITALS: BP 155/82; TEMP 99.2; O2SAT 98
[2023-03-28] MEDS: metFORMIN (GLUCOPHAGE) 1000MG TABLET PO SCH ×2 (07:52→17:12)
[2023-03-28] MEDS: NICOTINE 21MG/24HR 1 EA TRANSDERMAL TD SCH (08:33)
[2023-03-28] MEDS: QUEtiapine FUMARATE 100 MG TAB PO SCH (08:34)
[2023-03-28] MEDS: LEVEMIR (INSULIN DETEMIR) 1 UNITS/0.01ML SC SCH ×2 (08:34→19:51)
[2023-03-28] MEDS: GABAPENTIN 400MG CAP PO SCH ×3 (08:34→19:52)
[2023-03-28] MEDS: BENZTROPINE 2 MG TAB PO SCH (08:34)
[2023-03-28] MEDS: TOPIRAMATE (TopAMAX) 100 MG TAB PO SCH ×2 (08:34→19:52)
[2023-03-28 16:07] VITALS: BP 118/74; TEMP 98.5; O2SAT 100
[2023-03-28] MEDS: MIRTAZAPINE 15 MG TAB PO SCH (19:51)
[2023-03-28] MEDS: RAMELTEON 8 MG TAB (ROZEREM) PO SCH (19:52)
[2023-03-28] MEDS: QUEtiapine FUMARATE 200 MG TAB PO SCH (19:52)
[2023-03-29] MEDS: INSULIN LISPRO (NovoLOG) PER UNIT SC SCH ×4 (06:31→21:07)
[2023-03-29 06:37] VITALS: BP 145/90; TEMP 98.7; O2SAT 99
[2023-03-29] MEDS: metFORMIN (GLUCOPHAGE) 1000MG TABLET PO SCH ×2 (07:18→17:10)
[2023-03-29] MEDS: NICOTINE 21MG/24HR 1 EA TRANSDERMAL TD SCH (08:38)
[2023-03-29] MEDS: LEVEMIR (INSULIN DETEMIR) 1 UNITS/0.01ML SC SCH ×2 (08:38→21:05)
[2023-03-29] MEDS: QUEtiapine FUMARATE 100 MG TAB PO SCH (08:38)
[2023-03-29] MEDS: BENZTROPINE 2 MG TAB PO SCH (08:39)
[2023-03-29] MEDS: TOPIRAMATE (TopAMAX) 100 MG TAB PO SCH ×2 (08:39→21:04)
[2023-03-29] MEDS: GABAPENTIN 400MG CAP PO SCH ×3 (08:39→21:04)
[2023-03-29 16:24] VITALS: BP 118/69; TEMP 98; O2SAT 97
[2023-03-29] MEDS: IBUPROFEN 400MG TAB PO PRN (19:12)
[2023-03-29] MEDS: MIRTAZAPINE 15 MG TAB PO SCH (21:04)
[2023-03-29] MEDS: QUEtiapine FUMARATE 200 MG TAB PO SCH (21:04)
[2023-03-29] MEDS: RAMELTEON 8 MG TAB (ROZEREM) PO SCH (21:04)
[2023-03-30 06:16] VITALS: BP 120/78; TEMP 98.7; O2SAT 100
[2023-03-30] MEDS: INSULIN LISPRO (NovoLOG) PER UNIT SC SCH ×4 (06:38→20:33)
[2023-03-30] MEDS: BENZTROPINE 2 MG TAB PO SCH (08:31)
[2023-03-30] MEDS: metFORMIN (GLUCOPHAGE) 1000MG TABLET PO SCH ×2 (08:31→17:19)
[2023-03-30] MEDS: QUEtiapine FUMARATE 100 MG TAB PO SCH (08:32)
[2023-03-30] MEDS: GABAPENTIN 400MG CAP PO SCH ×3 (08:32→20:30)
[2023-03-30] MEDS: TOPIRAMATE (TopAMAX) 100 MG TAB PO SCH ×2 (08:33→20:30)
[2023-03-30] MEDS: LEVEMIR (INSULIN DETEMIR) 1 UNITS/0.01ML SC SCH ×2 (08:35→20:32)
[2023-03-30] MEDS: NICOTINE 21MG/24HR 1 EA TRANSDERMAL TD SCH (08:38)
[2023-03-30 18:03] VITALS: BP 103/61; TEMP 98.8
[2023-03-30] MEDS: QUEtiapine FUMARATE 200 MG TAB PO SCH (20:30)
[2023-03-30] MEDS: MIRTAZAPINE 15 MG TAB PO SCH (20:30)
[2023-03-30] MEDS: RAMELTEON 8 MG TAB (ROZEREM) PO SCH (20:30)
[2023-03-31 06:12] VITALS: BP 108/67; TEMP 98.9; O2SAT 96
[2023-03-31] MEDS: INSULIN LISPRO (NovoLOG) PER UNIT SC SCH ×2 (06:35→12:00)
[2023-03-31] MEDS: NICOTINE 21MG/24HR 1 EA TRANSDERMAL TD SCH (09:00)
[2023-03-31] MEDS: TOPIRAMATE (TopAMAX) 100 MG TAB PO SCH (09:44)
[2023-03-31] MEDS: BENZTROPINE 2 MG TAB PO SCH (09:45)
[2023-03-31] MEDS: QUEtiapine FUMARATE 100 MG TAB PO SCH (09:45)
[2023-03-31] MEDS: GABAPENTIN 400MG CAP PO SCH (09:45)
[2023-03-31] MEDS: metFORMIN (GLUCOPHAGE) 1000MG TABLET PO SCH (09:45)
[2023-03-31] MEDS: LEVEMIR (INSULIN DETEMIR) 1 UNITS/0.01ML SC SCH (09:47)
== END 2023-03-31 12:22 | disposition home or self-care (01) | DRG 750 ==
LOC: M ED 16:20 → M ED INP 20:08 → M PSY 21:12
PROVIDERS: ADMIT Student in an Organized Health Care Education/Training Program; ATTEND Student in an Organized Health Care Education/Training Program
DX: F20.9 Schizophrenia, unspecified (principal); E11.42 Type 2 diabetes mellitus with diabetic polyneuropathy; R45.851 Suicidal ideations; F19.150 Other psychoactive substance abuse with psychoactive substance-induced psychotic disorder with delusions; F15.10 Other stimulant abuse, uncomplicated; F14.10 Cocaine abuse, uncomplicated; F17.200 Nicotine dependence, unspecified, uncomplicated; F10.10 Alcohol abuse, uncomplicated; N40.0 Benign prostatic hyperplasia without lower urinary tract symptoms; M19.90 Unspecified osteoarthritis, unspecified site; Z65.2 Problems related to release from prison; Z79.4 Long term (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 of insulin; Z79.899 Other long term (current) drug therapy; Z88.8 Allergy status to other drugs, medicaments and biological substances; Z76.5 Malingerer [conscious simulation]

== ENCOUNTER 2023-05-10 17:48 | Emergency (ER) | payer MEDICAID, OTHER ==
[~2023-05-10] VITALS: Ht 170.2 cm; Wt 72.2 kg
[~2023-05-10 17:48] MED LIST changes: +MIRT1TAB15 PO; +RAME8TAB2 PO
[2023-05-10] MEDS ORDERED: IBUP-1022 PO (18:56)
[2023-05-10] MEDS ORDERED: AMOX500C PO (18:56)
[2023-05-10] MEDS ORDERED: AMOXICILLIN 500 MG CAP PO ONE (19:00)
[2023-05-10] MEDS ORDERED: IBUPROFEN 600MG TAB PO ONE (19:00)
[2023-05-10 19:03] VITALS: BP 148/99; TEMP 98.2; O2SAT 100
== END 2023-05-10 19:10 | disposition home or self-care (01) ==
LOC: M ED 17:48
DX: K04.7 Periapical abscess without sinus (principal); E11.9 Type 2 diabetes mellitus without complications; F20.9 Schizophrenia, unspecified; F31.9 Bipolar disorder, unspecified; K21.9 Gastro-esophageal reflux disease without esophagitis; B18.2 Chronic viral hepatitis C; F17.200 Nicotine dependence, unspecified, uncomplicated; Z88.8 Allergy status to other drugs, medicaments and biological substances; Z79.899 Other long term (current) drug therapy; Z79.4 Long term (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 of insulin; Z79.84 Long term (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 of oral hypoglycemic drugs

== ENCOUNTER 2023-08-24 14:55 | Emergency (ER) | payer MEDICAID, OTHER, SELFPAY ==
[~2023-08-24] VITALS: Ht 167.6 cm; Wt 68.6 kg
[~2023-08-24 14:55] MED LIST changes: +AMOX500C PO; -ASPI-161 PO; +ASPI-615 PO; +IBUP-1022 PO; -MIRA1POW3 PO; +MIRA33506 PO
[2023-08-24] MEDS: NS 1,000 ML IV ONE (17:53)
[2023-08-24 18:01] LABS: VENOUS BASE EXCESS 0.3 (-2.0-2.0); VENOUS HCO3 24.9 MMOL/L (23.0-27.0); VENOUS O2 SATURATION 94.3 % (60.0-80.0); VENOUS PARTIAL PRESSURE O2 70.6 mmHg (30.0-50.0); VENOUS PH 7.412 UNITS (7.330-7.430); VENOUS STANDARD HCO3 24.7 MMOL/L; VENOUS TOTAL CO2 26.1 MMOL/L (24.0-28.0)
[2023-08-24 18:10] LABS: BASO % 0.3 % (0.0-1.0); EOS % 0.4 % (0.0-3.0); HEMATOCRIT 36.4 % (42.0-52.0); HEMOGLOBIN 12.2 g/dl (13.5-17.5); LYMPH # 1.6 10^3/uL (1.5-5.0); LYMPH % 14.6 % (24.0-44.0); MEAN CORPUSCULAR HEMOGLOBIN 29.2 pg (27.0-33.0); MEAN CORPUSCULAR HGB CONC 33.5 g/dl (32.0-36.5); MEAN CORPUSCULAR VOLUME 87.1 fl (80.0-96.0); MONO # 0.8 10^3/uL (0.0-0.8); MONO % 7.5 % (2.0-8.0); NEUTROPHILS # 8.3 10^3/uL (1.5-8.5); NEUTROPHILS % 76.9 % (36.0-66.0); PLATELET COUNT, AUTOMATED 279 10^3/uL (150-450); RED BLOOD COUNT 4.18 10^6/uL (4.30-6.10); WHITE BLOOD COUNT 10.8 10^3/uL (4.0-10.0)
[2023-08-24] MEDS ORDERED: MED REC IN PROGRESS XX SCH (18:10)
[2023-08-24 18:18] LABS: AMPHETAMINES LEVEL URINE NEGATIVE (NEGATIVE); BARBITURATES URINE NEGATIVE (NEGATIVE); BENZODIAZEPINES URINE NEGATIVE (NEGATIVE); CANNABINOIDS URINE NEGATIVE (NEGATIVE); COCAINE METABOLITE URINE NEGATIVE (NEGATIVE); METHADONE URINE NEGATIVE (NEGATIVE); OPIATES URINE NEGATIVE (NEGATIVE); PHENCYCLIDINE URINE NEGATIVE (NEGATIVE)
[2023-08-24 18:34] LABS: ALBUMIN 3.2 G/DL (3.2-5.2); ALKALINE PHOSPHATASE 70 U/L (46-116); ALT/SGPT 13 U/L (7.0-40); AST/SGOT 12 U/L (<34); BILIRUBIN,DIRECT 0.2 MG/DL (<0.4); BILIRUBIN,TOTAL 0.4 MG/DL (0.3-1.2); BLOOD UREA NITROGEN 10 MG/DL (9-23); CALCIUM LEVEL 9.1 MG/DL (8.5-10.1); CARBON DIOXIDE LEVEL 26 MMOL/L (20-31); CHLORIDE LEVEL 101 MMOL/L (98-107); CREATININE FOR GFR 0.57 MG/DL (0.70-1.30); ETHYL ALCOHOL (ETHANOL) < 0.003 % (0.000-0.010); GLOMERULAR FILTRATION RATE > 60.0 (>56); GLUCOSE, FASTING 389 MG/DL (60-100); SODIUM LEVEL 135 MMOL/L (136-145)
[2023-08-24 18:35] LABS: SALICYLATE LEVEL < 3.0 MG/DL (<30)
[2023-08-24 18:38] LABS: THYROID STIMULATING HORMONE 0.348 uIU/ML (0.55-4.78)
[2023-08-24] MEDS ORDERED: CLON0.5T17 PO (18:41)
[2023-08-24] MEDS ORDERED: SILD100T PO (18:41)
[2023-08-24] MEDS ORDERED: SUBO12MI SL (18:41)
[2023-08-24] MEDS ORDERED: HOME MED LIST COMPLETE! XX SCH (19:00)
[2023-08-24 19:05] LABS: RSV AMPLIFICATION NEGATIVE (NEGATIVE)
[2023-08-24 19:10] LABS: HEPATITIS B CORE ANTIBODY IGM NEGATIVE (NEGATIVE)
[2023-08-24] MEDS: HumuLIN R (REGULAR) INSULIN (NovoLIN R) **100U/ML** PER UNIT IV ONE (19:10)
[2023-08-24 19:14] LABS: ACETONE/KETONE 2.27 MMOL/L (0.02-0.27)
[2023-08-24 19:18] LABS: HEPATITIS C VIRUS ABY INDEX > 11.00 INDEX (<0.8)
[2023-08-24] MEDS ORDERED: LEVO1TAB40 PO (21:18)
[2023-08-24] MEDS ORDERED: METF10004 PO (21:18)
[2023-08-24] MEDS ORDERED: INSUDET SC (21:18)
[2023-08-24] MEDS ORDERED: INSUHUMDS SC (21:18)
[2023-08-24] MEDS: LevoFLOXacin 750 MG TABLET PO ONE (21:22)
[2023-08-24 21:31] VITALS: BP 138/82; TEMP 98; O2SAT 98
== END 2023-08-24 21:34 | disposition home or self-care (01) ==
LOC: M ED 14:55
DX: E11.65 Type 2 diabetes mellitus with hyperglycemia (principal); J18.9 Pneumonia, unspecified organism; I25.2 Old myocardial infarction; F17.210 Nicotine dependence, cigarettes, uncomplicated; F15.10 Other stimulant abuse, uncomplicated; F10.10 Alcohol abuse, uncomplicated; Z79.899 Other long term (current) drug therapy; Z79.4 Long term (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 of insulin; Z79.84 Long term (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 of oral hypoglycemic drugs; Z88.8 Allergy status to other drugs, medicaments and biological substances
CPT/HCPCS: 71046; 71250; 80047; 80048; 80074; 80076; 80143; 80307; 81001; 82010; 82077; 82803; 83036; 83930; 84443; 85025; 87522; 87631; 93005; 93041; 94760; 96361; 96374; 99285; J1815